=== PATIENT | male | born 1970 | race Caucasian/White ===

== ENCOUNTER 2021-01-23 10:46 | Outpatient (CLI) | payer MEDICAID, SELFPAY ==
[2021-01-23] MEDS: Omnipaque 350 MG/ML 100 ML BTL IJ (10:58)
[2021-01-23] MEDS: Normal Saline Flush 10 ML SYR IVP (11:00)
--- NOTE | 2021-01-23 11:15 | DI.CT_ITS ---
Exam(s) CT CHEST PE CTA EXAM: CT CHEST PE CTA CLINICAL HISTORY: COUGH, DYSPNEA,NEAR SYNCOPE,? PE. TECHNIQUE: Imaging Protocol: Axial CT angiography was performed with multi-slice acquisition and mu lti-planar and/or 3D reconstructions. CONTRAST MATERIAL: Intravenous: Omnipaque 350 Contrast volume:67 mL COMPARISON: CT RENAL COLIC WO CONTRAST from 01/01/2010 FINDINGS: Tracheobronchial tree: Patent where visualized. Pulmonary parenchyma: No consolidation or dominant measurable mass. Marked emphysematous changes are present in the lungs. Pulmonary Arteries: No evidence of filling defect to suggest pulmonary emboli. Mediastinum and Anamika: No dominant adenopathy or fluid collection. The esophagus is grossly unremarkab le except for small hiatal hernia. Visualized thyroid gland: Unremarkable. Pleura: No effusion is present. There is focal thickening of the pleura along the right posterior ch est wall. The larger area measures 2.7 x 0.7 cm. The smaller area measures 1 x 0.5 cm. The larger areas associated with a healed right rib fracture. No bony abnormality is seen adjacent to the small er lesion. Heart: The heart is not dilated. Coronary artery calcifications are present. No pericardial effusion . Aorta: Thoracic aorta non-dilated. No evidence of dissection. Upper abdomen: Unremarkable. Soft tissues: Unremarkable. Bones: Within normal limits for the patient's age.Chronic appearing anterior wedging is seen at T8. Superior endplate depressions are seen at T5 and T12 which appear old. No definite acute fracture or subluxation is seen in the thoracic spine. IMPRESSION: 1. No evidence of pulmonary embolism, thoracic aortic dissection or aneurysm. 2. Marked emphysematous changes in the lungs. 3. Focal thickening in the of the pleura along the posterior chest wall. This is nonspecific. A fol low-up CT scan of the chest in 3 months is recommended for re-evaluation. RADIATION DOSE DELIVERED: 356.85mGy.cm Total DLP DATA REPOSITORY: All CT scans at this facility are submitted to the National Radiology Data Registry (NRDR) Dose Index Registry (DIR) with the [employer] (ACR). RADIATION OPTIMIZATION: All CT scans at this facility use at least one of these dose optimization te chniques: automated exposure control; mA and/or kV adjustment per patient size (includes targeted exa ms where dose is matched to clinical indication); or iterative reconstruction.
== END 2021-01-23 11:06 ==
PROVIDERS: PCP Family Medicine; Visit Provider Nurse Practitioner Family
DX: R06.00 Dyspnea, unspecified (principal); R05.8 Other specified cough; R55 Syncope and collapse; R91.8 Other nonspecific abnormal finding of lung field
CPT/HCPCS: 71275; J3490

== ENCOUNTER 2021-01-23 13:38 | Outpatient (REF) | payer MEDICAID, SELFPAY ==
[2021-01-23 14:12] LABS: Abs Immature Grans 0.05 10^3/uL (0.0-0.06); Absolute Basophil Count 0.18 10^3/uL (0.0-0.2); Absolute Eosinophil Count 0.47 10^3/uL (0.0-0.7); Absolute Lymphocyte Count 1.79 10^3/uL (1.2-3.4); Absolute Monocyte Count 0.96 10^3/uL (0.1-0.8); Absolute Neutrophil Count 8.67 10^3/uL (1.2-6.7); Basophils % 1.5; Eosinophils % 3.9; HCT 49.1 % (40.0-50.0); HGB 15.4 g/dL (13.5-17.5); Immature Grans % 0.4; Lymphocytes % 14.8; MCHC 31.4 % (32.0-36.0); MCV 95.7 fL (80-95); MPV 10.6 fL (8.0-11.0); Monocytes % 7.9; Neutrophils % 71.5; Nucleated RBC 0 %; Platelet Count 666 10^3/uL (130-400); RBC 5.13 10^6/uL (4.36-5.78); RDW-SD 43.3 fL; WBC 12.12 10^3/uL (4.4-10.8)
[2021-01-23 14:46] LABS: ALT 27 U/L (16-63); AST 18 U/L (15-37); Albumin 4.2 g/dL (3.4-5.0); Alkaline Phosphatase 78 U/L (46-116); Anion Gap 8.4 mmol/L (3-11); BUN 13 mg/dL (7-18); Bilirubin, Total 0.3 mg/dL (0.2-1.0); CO2 28.6 mmol/L (21.0-32.0); Calcium 10.6 mg/dL (8.5-10.1); Chloride 101 mmol/L (98-107); Glucose 89 mg/dL (74-106); Sodium 138 mmol/L (136-145); Total Protein 8.5 g/dL (6.4-8.2)
[2021-01-23 14:55] LABS: Potassium 6.2 mmol/L (3.5-5.1)
[2021-01-24 14:39] LABS: COVID-19 RT-PCR UVMMC Result Negative (Negative)
== END 2021-01-23 13:39 | disposition home or self-care (01) ==
LOC: LBN 13:38
PROVIDERS: PCP Family Medicine; Visit Provider Nurse Practitioner Family
DX: R55 Syncope and collapse (principal); R06.09 Other forms of dyspnea; R05.8 Other specified cough; Z20.822 Contact with and (suspected) exposure to COVID-19
CPT/HCPCS: 80053; U0003; 85025

== ENCOUNTER 2021-01-25 16:24 | Outpatient (REF) | payer MEDICAID, SELFPAY ==
[2021-01-25 21:15] LABS: Potassium 4.6 mmol/L (3.5-5.1)
== END 2021-01-25 16:25 | disposition home or self-care (01) ==
LOC: LBN 16:24
PROVIDERS: PCP Family Medicine; Visit Provider Nurse Practitioner Family
DX: E87.5 Hyperkalemia (principal)
CPT/HCPCS: 84132

== ENCOUNTER 2021-01-29 01:40 | Outpatient (CLI) | payer MEDICAID, SELFPAY ==
--- NOTE | 2021-01-29 16:23 | W.PFT ---
Date of service: 01/29/21 Time of Service: 14:47 Pulmonary Function Test Result Requesting Provider Arias Mast Indications: Worsening cough Interpretation Spirometry: There is moderate airflow limitation. There is no significant bronchodilator response. Lung Volumes: There is evidence of air trapping and hyperinflation. Diffusion Capacity: The diffusion is reduced. Airway Pressure: Airways resistance is normal. Impression Moderate airflow obstruction with evidence of air trapping and hyperinflation with a reduced diffusion. In the correct clinical context this may represent COPD with emphysema. Clinical Correlation therefore is recommended.
== END 2021-01-29 01:41 | disposition home or self-care (01) ==
LOC: RT 01:40
PROVIDERS: PCP Family Medicine; Visit Provider Nurse Practitioner Family
DX: J44.9 Chronic obstructive pulmonary disease, unspecified (principal); R05.9 Cough, unspecified; R06.00 Dyspnea, unspecified; F17.210 Nicotine dependence, cigarettes, uncomplicated; R94.2 Abnormal results of pulmonary function studies
CPT/HCPCS: 94060; 94726; 94729

== ENCOUNTER 2021-03-05 10:54 | Outpatient (CLI) | payer MEDICAID, SELFPAY ==
--- NOTE | 2021-03-05 | DI.RAD_ITS ---
Exam(s) XR SHOULDER RT COMPLETE 2+V EXAM: XR SHOULDER RT COMPLETE 2+V CLINICAL HISTORY: PAIN RT SHOULDER M25.511. TECHNIQUE: 2D digital imaging was performed. COMPARISON: No exams were available for comparison FINDINGS: No evidence of right clavicle fracture and the AC joint appears unremarkable. Incidentally noted is a large bulla in the right upper lobe. No rib fractures IMPRESSION: DATA REPOSITORY: RADIATION DOSE DELIVERED:
== END 2021-03-05 11:14 ==
PROVIDERS: PCP Family Medicine; Visit Provider Nurse Practitioner Family
DX: M25.511 Pain in right shoulder (principal)
CPT/HCPCS: 73030

== ENCOUNTER 2021-04-09 13:53 | Outpatient (REF) | payer MEDICAID, SELFPAY ==
[2021-04-09 17:16] LABS: Absolute Lymphocyte Count 1.61 10^3/uL (1.2-3.4); Absolute Monocyte Count 1.17 10^3/uL (0.1-0.8); Basophils % 1.2; Eosinophils % 2.1; HCT 40.1 % (40.0-50.0); HGB 12.6 g/dL (13.5-17.5); Immature Grans % 0.6; Lymphocytes % 10.4; MCH 29.1 pg (27.0-33.0); MCHC 31.4 % (32.0-36.0); MCV 92.6 fL (80-95); MPV 10.2 fL (8.0-11.0); Monocytes % 7.6; Neutrophils % 78.1; Nucleated RBC 0 %; Platelet Count 694 10^3/uL (130-400); RBC 4.33 10^6/uL (4.36-5.78); RDW 12.3 % (11.8-14.1); RDW-SD 42.4 fL; WBC 15.45 10^3/uL (4.4-10.8)
[2021-04-09 17:18] LABS: Absolute Basophil Count 0.19 10^3/uL (0.0-0.2); Absolute Eosinophil Count 0.32 10^3/uL (0.0-0.7); Absolute Neutrophil Count 12.07 10^3/uL (1.2-6.7)
[2021-04-09 17:21] LABS: ESR 40 mm/hr (0-15)
[2021-04-09 17:38] LABS: C-Reactive Protein 6.19 mg/dL (0.0-0.3)
== END 2021-04-09 13:54 | disposition home or self-care (01) ==
LOC: NCHCN 13:53
PROVIDERS: PCP Family Medicine; Visit Provider Nurse Practitioner Family
DX: D47.3 Essential (hemorrhagic) thrombocythemia (principal); R21 Rash and other nonspecific skin eruption
CPT/HCPCS: 85652; 85025; 85379; 86140

== ENCOUNTER 2021-05-24 01:40 | Outpatient (CLI) | payer MEDICAID, SELFPAY ==
--- NOTE | 2021-05-24 10:00 | DI.CT_ITS ---
Exam(s) CT CHEST W EXAM: CT CHEST W CLINICAL HISTORY: COPD,J44.9; THROMBOCYTOSIS, D47.3; TOBACCO DEPENDENCE, F17.200 TECHNIQUE: CT examination of the chest was performed with intravenous infusion of 70 cc of Omnipaque 350. COMPARISON: CT CT CHEST PE CTA from 01/23/2021 FINDINGS: There is severe bullous emphysema with apical bullous formation occupying up to 50 percent of the vol ume of the right lung and 25 percent of the volume of left lung. There is moderate central lobular e mphysematous change throughout both lungs.. There is a new right pleural effusion, not present on pr ior CT of January 23, 2021.. There is no evidence of pulmonary embolic disease. There is unremarkable appearance of the thoracic aorta and major branches with no evidence of aneurysm or dissection. There is increased prominence of small lymph nodes in superior mediastinum and supraclavicular region . Largest nodes are roughly 10-12 millimeters long axis period. No bulky adenopathy. Tracheobronch ial tree appears intact. A previously described region of pleural abnormality with 2 focal areas of abnormal pleural radiodens ity seen on prior examination of January 2021 shows markedly increased prominence pleural based mass which now measures up to 5 x 7 cm in diameter on axial imaging period there is marked destruction of the right 9th rib. Previously described right 11th rib fracture again noted posteriorly. The findings are highly suggestive of neoplastic disease. Additional evaluation with tissue sampling recommended. Visualized portions of the liver, spleen, adrenals, and kidneys are unremarkable. No abnormality seen involving the bony thorax. IMPRESSION: Aggressive behavior of right pleural based mass or masses with marked interval increase in size since prior examination of January 2021. Neoplastic disease suspected. Additional evaluation with tissu e sampling recommended Mildly increased prominence of superior mediastinal and supraclavicular lymph nodes is suspicious for regional metastatic disease. RADIATION DOSE DELIVERED: 478.68mGy.cm Total DLP 478.68mGy.cm Total DLP !Error CTDIvol
[2021-05-24] MEDS: Omnipaque 350 MG/ML 100 ML BTL IJ (10:29)
== END 2021-05-24 02:00 ==
PROVIDERS: PCP Nurse Practitioner Family; Visit Provider Nurse Practitioner Family
DX: J44.9 Chronic obstructive pulmonary disease, unspecified (principal); F17.200 Nicotine dependence, unspecified, uncomplicated; D47.3 Essential (hemorrhagic) thrombocythemia; J43.8 Other emphysema; R91.8 Other nonspecific abnormal finding of lung field; R59.0 Localized enlarged lymph nodes
CPT/HCPCS: 71260; J3490

== ENCOUNTER 2021-07-19 02:18 | Outpatient (CLI) | payer MEDICAID, SELFPAY ==
[2021-07-19 11:46] LABS: Abs Immature Grans 0.09 10^3/uL (0.0-0.06); Basophils % 0.6; Eosinophils % 0.6; HCT 29.2 % (40.0-50.0); HGB 8.9 g/dL (13.5-17.5); Immature Grans % 0.5; Lymphocytes % 5.4; MCH 22.8 pg (27.0-33.0); MCHC 30.5 % (32.0-36.0); MCV 75 fL (80-95); MPV 8.9 fL (8.0-11.0); Monocytes % 5.1; Neutrophils % 87.8; RBC 3.91 10^6/uL (4.36-5.78); RDW 15.3 % (11.8-14.1); RDW-SD 41.1 fL; WBC 17.15 10^3/uL (4.4-10.8)
[2021-07-19 11:49] LABS: Absolute Lymphocyte Count 0.93 10^3/uL (1.2-3.4); Absolute Monocyte Count 0.87 10^3/uL (0.1-0.8); Absolute Neutrophil Count 15.06 10^3/uL (1.2-6.7)
[2021-07-19 12:04] LABS: Diff Comment RBC Morph Reviewed; Hypochromasia 1+; Microcytosis 2+
[2021-07-19 12:05] LABS: Platelet Count 802 10^3/uL (130-400)
[2021-07-19 12:10] LABS: ALT 18 U/L (16-63); AST 12 U/L (15-37); Albumin 2.9 g/dL (3.4-5.0); Alkaline Phosphatase 76 U/L (46-116); Anion Gap 7.7 mmol/L (3-11); BUN 8 mg/dL (7-18); Bilirubin, Total 0.2 mg/dL (0.2-1.0); CO2 28.3 mmol/L (21.0-32.0); CREATININE 0.9 mg/dL (0.70-1.30); Calcium 9.3 mg/dL (8.5-10.1); Chloride 98 mmol/L (98-107); FREE T4 1.29 ng/dL (0.76-1.46); Glucose 122 mg/dL (74-106); Magnesium 2.1 mg/dL (1.8-2.4); Potassium 4.8 mmol/L (3.5-5.1); Sodium 134 mmol/L (136-145); TSH 1.02 uIU/mL (0.36-3.74); Total Protein 8.3 g/dL (6.4-8.2)
== END 2021-07-19 02:19 | disposition home or self-care (01) ==
LOC: LBO 02:18
PROVIDERS: PCP Nurse Practitioner Family; Visit Provider Internal Medicine Medical Oncology
DX: C34.31 Malignant neoplasm of lower lobe, right bronchus or lung (principal); C79.51 Secondary malignant neoplasm of bone; Z79.899 Other long term (current) drug therapy
CPT/HCPCS: 36415; 80053; 83735; 84439; 84443; 85025

== ENCOUNTER 2021-07-30 02:52 | Outpatient (CLI) | payer MEDICAID, SELFPAY ==
[2021-07-30 09:56] LABS: Abs Immature Grans 0.13 10^3/uL (0.0-0.06); Absolute Basophil Count 0.14 10^3/uL (0.0-0.2); Absolute Eosinophil Count 0.42 10^3/uL (0.0-0.7); Absolute Lymphocyte Count 0.68 10^3/uL (1.2-3.4); Absolute Monocyte Count 0.88 10^3/uL (0.1-0.8); Absolute Neutrophil Count 10.13 10^3/uL (1.2-6.7); Basophils % 1.1; Eosinophils % 3.4; HCT 31.1 % (40.0-50.0); HGB 9.4 g/dL (13.5-17.5); Immature Grans % 1.1; Lymphocytes % 5.5; MCHC 30.2 % (32.0-36.0); MCV 76 fL (80-95); MPV 9.3 fL (8.0-11.0); Monocytes % 7.1; Neutrophils % 81.8; Platelet Count 625 10^3/uL (130-400); RBC 4.08 10^6/uL (4.36-5.78); RDW 17.3 % (11.8-14.1); RDW-SD 45.2 fL; WBC 12.38 10^3/uL (4.4-10.8)
[2021-07-30 10:10] LABS: ALT 21 U/L (16-63); AST 11 U/L (15-37); Albumin 3.6 g/dL (3.4-5.0); Alkaline Phosphatase 81 U/L (46-116); Anion Gap 8.6 mmol/L (3-11); BUN 17 mg/dL (7-18); Bilirubin, Total 0.2 mg/dL (0.2-1.0); CO2 29.4 mmol/L (21.0-32.0); CREATININE 0.9 mg/dL (0.70-1.30); Calcium 9.5 mg/dL (8.5-10.1); Chloride 94 mmol/L (98-107); Glucose 131 mg/dL (74-106); Potassium 4.2 mmol/L (3.5-5.1); Sodium 132 mmol/L (136-145); Total Protein 8.5 g/dL (6.4-8.2)
[2021-07-30 12:06] LABS: FREE T4 1.18 ng/dL (0.76-1.46)
== END 2021-07-30 02:53 | disposition home or self-care (01) ==
LOC: LBO 02:52
PROVIDERS: PCP Nurse Practitioner Family; Visit Provider Internal Medicine Medical Oncology
DX: R91.8 Other nonspecific abnormal finding of lung field (principal)
CPT/HCPCS: 36415; 80053; 83735; 84439; 84443; 85025

== ENCOUNTER 2021-08-06 13:02 | Outpatient (CLI) | payer MEDICAID, SELFPAY ==
[2021-08-06 08:30] LABS: Abs Immature Grans 0.02 10^3/uL (0.0-0.06); Absolute Basophil Count 0.07 10^3/uL (0.0-0.2); Absolute Lymphocyte Count 0.65 10^3/uL (1.2-3.4); Absolute Neutrophil Count 2.55 10^3/uL (1.2-6.7); Basophils % 1.8; Eosinophils % 7.5; HGB 8.8 g/dL (13.5-17.5); Immature Grans % 0.5; Lymphocytes % 16.3; MCHC 30.3 % (32.0-36.0); MCV 79 fL (80-95); MPV 8.6 fL (8.0-11.0); Neutrophils % 63.9; Platelet Count 315 10^3/uL (130-400); RBC 3.67 10^6/uL (4.36-5.78); RDW-SD 53.2 fL; WBC 3.99 10^3/uL (4.4-10.8)
[2021-08-06 08:53] LABS: ALT 19 U/L (16-63); AST 11 U/L (15-37); Albumin 3.4 g/dL (3.4-5.0); Alkaline Phosphatase 73 U/L (46-116); Anion Gap 6.9 mmol/L (3-11); BUN 17 mg/dL (7-18); Bilirubin, Total 0.1 mg/dL (0.2-1.0); CO2 28.1 mmol/L (21.0-32.0); CREATININE 0.9 mg/dL (0.70-1.30); Chloride 102 mmol/L (98-107); FREE T4 1.09 ng/dL (0.76-1.46); Glucose 110 mg/dL (74-106); Potassium 3.9 mmol/L (3.5-5.1); Sodium 137 mmol/L (136-145); TSH 0.66 uIU/mL (0.36-3.74); Total Protein 7.6 g/dL (6.4-8.2)
== END 2021-08-06 13:03 | disposition home or self-care (01) ==
LOC: LBO 13:06
PROVIDERS: PCP Nurse Practitioner Family; Visit Provider Internal Medicine Medical Oncology
DX: C34.31 Malignant neoplasm of lower lobe, right bronchus or lung (principal); C79.51 Secondary malignant neoplasm of bone; Z79.899 Other long term (current) drug therapy
CPT/HCPCS: 36415; 80053; 83735; 84439; 84443; 85025

== ENCOUNTER 2021-08-14 03:43 | Outpatient (CLI) | payer MEDICAID, SELFPAY ==
[2021-08-14 07:17] LABS: Abs Immature Grans 0.02 10^3/uL (0.0-0.06); Absolute Basophil Count 0.08 10^3/uL (0.0-0.2); Absolute Eosinophil Count 0.45 10^3/uL (0.0-0.7); Absolute Lymphocyte Count 1.11 10^3/uL (1.2-3.4); Absolute Monocyte Count 0.78 10^3/uL (0.1-0.8); Absolute Neutrophil Count 3.38 10^3/uL (1.2-6.7); Basophils % 1.4; Eosinophils % 7.7; HCT 36.2 % (40.0-50.0); HGB 10.9 g/dL (13.5-17.5); Immature Grans % 0.3; Lymphocytes % 19.1; MCH 24.9 pg (27.0-33.0); MCHC 30.1 % (32.0-36.0); MCV 83 fL (80-95); MPV 9.1 fL (8.0-11.0); Monocytes % 13.4; Neutrophils % 58.1; Platelet Count 376 10^3/uL (130-400); RBC 4.38 10^6/uL (4.36-5.78); RDW 24.1 % (11.8-14.1); RDW-SD 68.2 fL; WBC 5.82 10^3/uL (4.4-10.8)
[2021-08-14 07:40] LABS: ALT 21 U/L (16-63); AST 13 U/L (15-37); Albumin 3.8 g/dL (3.4-5.0); Alkaline Phosphatase 91 U/L (46-116); Anion Gap 7.3 mmol/L (3-11); BUN 13 mg/dL (7-18); Bilirubin, Total 0.2 mg/dL (0.2-1.0); CO2 28.7 mmol/L (21.0-32.0); CREATININE 0.9 mg/dL (0.70-1.30); Calcium 9.5 mg/dL (8.5-10.1); Chloride 97 mmol/L (98-107); FREE T4 1.02 ng/dL (0.76-1.46); Glucose 88 mg/dL (74-106); Magnesium 2.1 mg/dL (1.8-2.4); Sodium 133 mmol/L (136-145); TSH 1.51 uIU/mL (0.36-3.74); Total Protein 8.6 g/dL (6.4-8.2)
[2021-08-14 07:46] LABS: Anisocytosis 2+; Diff Comment RBC Morph Reviewed; Hypochromasia 1+; Microcytosis 1+
== END 2021-08-14 03:44 | disposition home or self-care (01) ==
LOC: LBO 03:43
PROVIDERS: PCP Nurse Practitioner Family; Visit Provider Internal Medicine Medical Oncology
DX: C34.31 Malignant neoplasm of lower lobe, right bronchus or lung (principal); C79.51 Secondary malignant neoplasm of bone; Z79.899 Other long term (current) drug therapy
CPT/HCPCS: 36415; 80053; 83735; 84439; 84443; 85025

== ENCOUNTER 2021-08-20 02:59 | Outpatient (CLI) | payer MEDICAID, SELFPAY ==
[2021-08-20 08:51] LABS: Abs Immature Grans 0.03 10^3/uL (0.0-0.06); Absolute Basophil Count 0.09 10^3/uL (0.0-0.2); Absolute Eosinophil Count 0.19 10^3/uL (0.0-0.7); Absolute Lymphocyte Count 0.65 10^3/uL (1.2-3.4); Absolute Monocyte Count 0.29 10^3/uL (0.1-0.8); Absolute Neutrophil Count 3.15 10^3/uL (1.2-6.7); Eosinophils % 4.3; HCT 35.1 % (40.0-50.0); HGB 10.8 g/dL (13.5-17.5); Immature Grans % 0.7; Lymphocytes % 14.8; MCH 25.2 pg (27.0-33.0); MCHC 30.8 % (32.0-36.0); MCV 82 fL (80-95); Monocytes % 6.6; Neutrophils % 71.6; Platelet Count 417 10^3/uL (130-400); RBC 4.28 10^6/uL (4.36-5.78); RDW 23.4 % (11.8-14.1); RDW-SD 65.5 fL
[2021-08-20 09:16] LABS: Anisocytosis 2+; Diff Comment RBC Morph Reviewed
[2021-08-20 09:22] LABS: ALT 18 U/L (16-63); AST 11 U/L (15-37); Albumin 3.6 g/dL (3.4-5.0); Alkaline Phosphatase 84 U/L (46-116); Anion Gap 8.5 mmol/L (3-11); BUN 17 mg/dL (7-18); Bilirubin, Total 0.1 mg/dL (0.2-1.0); CO2 27.5 mmol/L (21.0-32.0); CREATININE 0.7 mg/dL (0.70-1.30); Chloride 97 mmol/L (98-107); FREE T4 1.15 ng/dL (0.76-1.46); Glucose 112 mg/dL (74-106); Magnesium 1.8 mg/dL (1.8-2.4); Potassium 4.4 mmol/L (3.5-5.1); Sodium 133 mmol/L (136-145); TSH 1.09 uIU/mL (0.36-3.74); Total Protein 7.8 g/dL (6.4-8.2)
== END 2021-08-20 03:00 | disposition home or self-care (01) ==
LOC: LBO 02:59
PROVIDERS: PCP Nurse Practitioner Family; Visit Provider Internal Medicine Medical Oncology
DX: C34.31 Malignant neoplasm of lower lobe, right bronchus or lung (principal); C79.51 Secondary malignant neoplasm of bone; Z79.899 Other long term (current) drug therapy
CPT/HCPCS: 36415; 80053; 83735; 84439; 84443; 85025

== ENCOUNTER → 2021-08-28 01:02 | Outpatient (CLI) | payer MEDICAID, SELFPAY ==
[2021-08-28] MEDS: Omnipaque 350 MG/ML 100 ML BTL IJ (13:33)
[2021-08-28] MEDS: Normal Saline Flush 10 ML SYR IVP (13:34)
--- NOTE | 2021-08-28 14:15 | DI.CT_ITS ---
Exam(s) CT CHEST W EXAM: CT CHEST W CLINICAL HISTORY: LUNG CA, C34.31,S/P RT AND ON CHEMOIMMUNOTHERAPY,ASSESS TREATMENT RESPONSE. TECHNIQUE: Multi planar reconstructions were performed. CONTRAST MATERIAL: Omnipaque 350; 70 cc COMPARISON: CT CT CHEST W from 05/24/2021 FINDINGS: CHEST: LUNGS: Severe bolus disease again noted bilaterally. No new focal left lung findings. On the right side the large trans pleural posterior chest wall mass has significantly decreased in si ze.. The posterior right 11th rib fracture fracture is again noted. Right 10th rib appears unremark able. Right 9th rib is again noted be lytic. There is no lytic involvement of T10. Size of the rig ht pleural effusion has decreased.-resolved. This size of the trans pleural mass has significantly d ecreased and is significantly less discernible at the distinct mass on the posterior right side.. Th ere are no new pulmonary nodules nor new pleural effusions. No new findings in the trachea and ravinder tem bronchi. Mediastinum: No hilar nor mediastinal adenopathy. No subcarinal adenopathy. No axillary nor supracl avicular adenopathy. CARDIAC: Heart size is normal. There is no pericardial effusion.Caliber of the thoracic aorta is wit hin normal limits. VISUALIZED UPPER ABDOMEN:There are no significant adrenal masses. OSSEOUS: No new significant osseous lesions.. IMPRESSION: 1. Compared to the CT scan of 05/24/2021 there has been significant improvement. The size of the rig ht posterior chest wall mass has significantly decreased. No associated pleural effusion. No new pu lmonary nodules. 2. The amount of lytic destruction of the right 9th rib is stable. No new additional right rib invol vement. Size of the right pleural effusion has decreased. No new additional lung nodules. 3. No new intrathoracic adenopathy. RADIATION DOSE DELIVERED: 382.04mGy.cm Total DLP DATA REPOSITORY: All CT scans at this facility are submitted to the National Radiology Data Registry (NRDR) Dose Index Registry (DIR) with the [employer] (ACR). RADIATION OPTIMIZATION: All CT scans at this facility use at least one of these dose optimization te chniques: automated exposure control; mA and/or kV adjustment per patient size (includes targeted exa ms where dose is matched to clinical indication); or iterative reconstruction.
== END ==
PROVIDERS: PCP Nurse Practitioner Family; Visit Provider Internal Medicine Medical Oncology
DX: C34.31 Malignant neoplasm of lower lobe, right bronchus or lung (principal); J90 Pleural effusion, not elsewhere classified; R22.2 Localized swelling, mass and lump, trunk; M89.8X8 Other specified disorders of bone, other site
CPT/HCPCS: 71260; J3490

== ENCOUNTER 2021-09-03 03:45 | Outpatient (CLI) | payer MEDICAID, SELFPAY ==
[2021-09-03 07:18] LABS: Abs Immature Grans 0.01 10^3/uL (0.0-0.06); Absolute Basophil Count 0.05 10^3/uL (0.0-0.2); Absolute Eosinophil Count 0.28 10^3/uL (0.0-0.7); Absolute Lymphocyte Count 0.91 10^3/uL (1.2-3.4); Absolute Monocyte Count 0.63 10^3/uL (0.1-0.8); Absolute Neutrophil Count 2.55 10^3/uL (1.2-6.7); Basophils % 1.1; Eosinophils % 6.3; HCT 32.8 % (40.0-50.0); HGB 10.5 g/dL (13.5-17.5); Immature Grans % 0.2; Lymphocytes % 20.5; MCH 26.4 pg (27.0-33.0); MCV 83 fL (80-95); MPV 8.8 fL (8.0-11.0); Monocytes % 14.2; Neutrophils % 57.7; Platelet Count 216 10^3/uL (130-400); RBC 3.97 10^6/uL (4.36-5.78); RDW 23.9 % (11.8-14.1); RDW-SD 69.4 fL; WBC 4.43 10^3/uL (4.4-10.8)
[2021-09-03 07:38] LABS: Anisocytosis 2+; Diff Comment RBC Morph Reviewed
[2021-09-03 07:43] LABS: ALT 14 U/L (16-63); AST 9 U/L (15-37); Albumin 3.7 g/dL (3.4-5.0); Alkaline Phosphatase 75 U/L (46-116); Anion Gap 7.6 mmol/L (3-11); BUN 16 mg/dL (7-18); Bilirubin, Total 0.3 mg/dL (0.2-1.0); CO2 28.4 mmol/L (21.0-32.0); Calcium 9.5 mg/dL (8.5-10.1); Chloride 99 mmol/L (98-107); FREE T4 1.05 ng/dL (0.76-1.46); Glucose 131 mg/dL (74-106); Magnesium 1.9 mg/dL (1.8-2.4); Potassium 4.1 mmol/L (3.5-5.1); Sodium 135 mmol/L (136-145); TSH 2.26 uIU/mL (0.36-3.74); Total Protein 7.9 g/dL (6.4-8.2)
== END 2021-09-03 03:46 | disposition home or self-care (01) ==
LOC: LBO 03:46
PROVIDERS: PCP Nurse Practitioner Family; Visit Provider Internal Medicine Medical Oncology
DX: C34.31 Malignant neoplasm of lower lobe, right bronchus or lung (principal); C79.51 Secondary malignant neoplasm of bone; Z79.899 Other long term (current) drug therapy
CPT/HCPCS: 36415; 80053; 83735; 84439; 84443; 85025

== ENCOUNTER 2021-09-10 03:49 | Outpatient (CLI) | payer MEDICAID, SELFPAY | END 2021-09-10 03:50 | disposition home or self-care (01) | LOC: LBO 03:49 | PROVIDERS: PCP Nurse Practitioner Family; Visit Provider Internal Medicine Medical Oncology ==

== ENCOUNTER 2021-09-13 02:52 | Outpatient (CLI) | payer MEDICAID, SELFPAY ==
[2021-09-13 09:30] LABS: Abs Immature Grans 0.03 10^3/uL (0.0-0.06); Absolute Basophil Count 0.08 10^3/uL (0.0-0.2); Absolute Eosinophil Count 0.06 10^3/uL (0.0-0.7); Absolute Lymphocyte Count 0.82 10^3/uL (1.2-3.4); Absolute Monocyte Count 0.53 10^3/uL (0.1-0.8); Absolute Neutrophil Count 2.73 10^3/uL (1.2-6.7); Basophils % 1.9; Eosinophils % 1.4; HCT 32.1 % (40.0-50.0); HGB 10.3 g/dL (13.5-17.5); Immature Grans % 0.7; Lymphocytes % 19.3; MCH 27.3 pg (27.0-33.0); MCHC 32.1 % (32.0-36.0); MCV 85 fL (80-95); MPV 8.5 fL (8.0-11.0); Monocytes % 12.5; Neutrophils % 64.2; WBC 4.25 10^3/uL (4.4-10.8)
[2021-09-13 09:56] LABS: ALT 16 U/L (16-63); AST 14 U/L (15-37); Albumin 3.7 g/dL (3.4-5.0); Alkaline Phosphatase 68 U/L (46-116); Anion Gap 8.6 mmol/L (3-11); BUN 12 mg/dL (7-18); Bilirubin, Total 0.2 mg/dL (0.2-1.0); CO2 26.4 mmol/L (21.0-32.0); Calcium 9.1 mg/dL (8.5-10.1); Chloride 100 mmol/L (98-107); FREE T4 1.18 ng/dL (0.76-1.46); Glucose 121 mg/dL (74-106); Magnesium 1.8 mg/dL (1.8-2.4); Potassium 4.6 mmol/L (3.5-5.1); Sodium 135 mmol/L (136-145); TSH 0.59 uIU/mL (0.36-3.74); Total Protein 7.7 g/dL (6.4-8.2)
[2021-09-13 10:25] LABS: RBC 3.77 10^6/uL (4.36-5.78)
[2021-09-13 10:26] LABS: Diff Comment Diff Reviewed; Platelet Count 369 10^3/uL (130-400)
[2021-09-13 10:27] LABS: Hypochromasia 1+; Macrocytosis 1+; Microcytosis 1+
== END 2021-09-13 02:53 | disposition home or self-care (01) ==
LOC: LBO 02:52
PROVIDERS: PCP Nurse Practitioner Family; Visit Provider Internal Medicine Medical Oncology
DX: C34.31 Malignant neoplasm of lower lobe, right bronchus or lung (principal); C79.51 Secondary malignant neoplasm of bone; Z79.899 Other long term (current) drug therapy
CPT/HCPCS: 36415; 80053; 83735; 84439; 84443; 85025

== ENCOUNTER 2021-09-24 09:20 | Outpatient (CLI) | payer MEDICAID, SELFPAY ==
[2021-09-24 09:34] LABS: Abs Immature Grans 0.01 10^3/uL (0.0-0.06); Absolute Basophil Count 0.02 10^3/uL (0.0-0.2); Absolute Eosinophil Count 0.03 10^3/uL (0.0-0.7); Absolute Lymphocyte Count 0.82 10^3/uL (1.2-3.4); Absolute Monocyte Count 0.56 10^3/uL (0.1-0.8); Absolute Neutrophil Count 2.82 10^3/uL (1.2-6.7); Basophils % 0.5; Eosinophils % 0.7; HCT 32.8 % (40.0-50.0); HGB 10.6 g/dL (13.5-17.5); Immature Grans % 0.2; Lymphocytes % 19.2; MCH 28.3 pg (27.0-33.0); MCHC 32.3 % (32.0-36.0); MCV 88 fL (80-95); MPV 8.9 fL (8.0-11.0); Monocytes % 13.1; Neutrophils % 66.3; Platelet Count 206 10^3/uL (130-400); RBC 3.75 10^6/uL (4.36-5.78); RDW 24.9 % (11.8-14.1); WBC 4.26 10^3/uL (4.4-10.8)
[2021-09-24 09:56] LABS: ALT 17 U/L (16-63); AST 11 U/L (15-37); Albumin 3.6 g/dL (3.4-5.0); Alkaline Phosphatase 66 U/L (46-116); Anion Gap 6.6 mmol/L (3-11); BUN 10 mg/dL (7-18); Bilirubin, Total 0.2 mg/dL (0.2-1.0); CO2 28.4 mmol/L (21.0-32.0); CREATININE 0.9 mg/dL (0.70-1.30); Calcium 9.2 mg/dL (8.5-10.1); Chloride 101 mmol/L (98-107); FREE T4 1.19 ng/dL (0.76-1.46); Glucose 128 mg/dL (74-106); Magnesium 1.8 mg/dL (1.8-2.4); Potassium 4.8 mmol/L (3.5-5.1); Sodium 136 mmol/L (136-145); Total Protein 7.7 g/dL (6.4-8.2)
[2021-09-24 10:18] LABS: Anisocytosis 2+; Diff Comment RBC Morph Reviewed
[2021-09-24 11:13] LABS: TSH 0.39 uIU/mL (0.36-3.74)
== END 2021-09-24 09:21 | disposition home or self-care (01) ==
LOC: LBO 09:21
PROVIDERS: PCP Nurse Practitioner Family; Visit Provider Internal Medicine Medical Oncology
DX: C34.31 Malignant neoplasm of lower lobe, right bronchus or lung (principal); C79.51 Secondary malignant neoplasm of bone; Z79.899 Other long term (current) drug therapy
CPT/HCPCS: 36415; 80053; 83735; 84439; 84443; 85025

== ENCOUNTER 2021-10-01 14:58 | Outpatient (CLI) | payer MEDICAID, SELFPAY ==
[2021-10-01 07:23] LABS: Abs Immature Grans 0.03 10^3/uL (0.0-0.06); Absolute Basophil Count 0.08 10^3/uL (0.0-0.2); Absolute Eosinophil Count 0.12 10^3/uL (0.0-0.7); Absolute Lymphocyte Count 0.63 10^3/uL (1.2-3.4); Absolute Monocyte Count 0.35 10^3/uL (0.1-0.8); Absolute Neutrophil Count 2.93 10^3/uL (1.2-6.7); Basophils % 1.9; Eosinophils % 2.9; HCT 32.4 % (40.0-50.0); HGB 10.8 g/dL (13.5-17.5); Immature Grans % 0.7; Lymphocytes % 15.2; MCH 29.2 pg (27.0-33.0); MCHC 33.3 % (32.0-36.0); MCV 88 fL (80-95); MPV 8.9 fL (8.0-11.0); Monocytes % 8.5; Neutrophils % 70.8; Platelet Count 307 10^3/uL (130-400); RDW 23.7 % (11.8-14.1); RDW-SD 74.1 fL; WBC 4.14 10^3/uL (4.4-10.8)
[2021-10-01 07:46] LABS: ALT 20 U/L (16-63); AST 14 U/L (15-37); Albumin 3.8 g/dL (3.4-5.0); Alkaline Phosphatase 69 U/L (46-116); Anion Gap 7.9 mmol/L (3-11); BUN 12 mg/dL (7-18); Bilirubin, Total 0.2 mg/dL (0.2-1.0); CO2 30.1 mmol/L (21.0-32.0); CREATININE 0.9 mg/dL (0.70-1.30); Chloride 99 mmol/L (98-107); FREE T4 1.28 ng/dL (0.76-1.46); Glucose 126 mg/dL (74-106); Magnesium 1.8 mg/dL (1.8-2.4); Potassium 4.4 mmol/L (3.5-5.1); Sodium 137 mmol/L (136-145); TSH 1.05 uIU/mL (0.36-3.74)
== END 2021-10-01 14:59 | disposition home or self-care (01) ==
LOC: LBO 14:59
PROVIDERS: PCP Nurse Practitioner Family; Visit Provider Internal Medicine Medical Oncology
DX: C34.31 Malignant neoplasm of lower lobe, right bronchus or lung (principal); C79.51 Secondary malignant neoplasm of bone; Z79.899 Other long term (current) drug therapy
CPT/HCPCS: 36415; 80053; 83735; 84439; 84443; 85025

== ENCOUNTER → 2021-10-11 03:44 | Outpatient (CLI) | payer MEDICAID, SELFPAY ==
--- NOTE | 2021-10-11 | DI.CT_ITS ---
Exam(s) CT CHEST W EXAM: CT CHEST W CLINICAL HISTORY: LUNG CANCER C34.31 BONE CANCER C79.51 RESTAGING. TECHNIQUE: Multi planar reconstructions were performed. CONTRAST MATERIAL: Omnipaque 350; 70 cc COMPARISON: CT CT CHEST W from 05/24/[address] CHEST W from 08/28/2021 FINDINGS: CHEST: LUNGS: Again noted is severe bolus emphysema disease. The pleural based findings with overlying rib destruction on the right side appear stable, without progression from 08/28/2021. An independent non pathologic appearing fracture of the posterior aspect of the right 11th rib is also again noted, exhi biting some mild healing. There are no new right lung findings. No significant pleural effusion. In the opposite-left lung there is a small nodular infiltrate in the left upper lobe measuring 8 by 6 millimeters, unchanged from the prior study but not evident on the CT scan of 05/24/2021. No new ad ditional focal left lung findings and no pleural effusion. No new findings in the trachea and mainst em bronchi. MEDIASTINUM: There is no new hilar nor mediastinal adenopathy. Visualized thyroid unremarkable. CARDIAC: Heart size is normal. There is no pericardial effusion.Caliber of the thoracic aorta is wit hin normal limits. VISUALIZED UPPER ABDOMEN:There are no significant adrenal masses. No new significant findings in the partially visualized liver. OSSEOUS: Right rib findings remain stable with no additional progressive involvement. No lytic lesio ns seen in the vertebral bodies.Stable height loss of a midthoracic vertebra which does not appear pa thologic and is unchanged.. IMPRESSION: 1. Minimal if any significant change when compared to the most recent CT scan of 08/28/2021. Posteri or right chest wall and rib involvement is stable without progression nor new right lung findings nor new adenopathy. 2. Nodular infiltrate measuring 8 x 6 millimeters in the left upper lobe is noted, unchanged from . Nevertheless of some concern as it was not evident on the CT scan of May 2021. No other left lung findings nor pleural effusion. 3. No significant intrathoracic adenopathy. RADIATION DOSE DELIVERED: 344.68mGy.cm Total DLP DATA REPOSITORY: All CT scans at this facility are submitted to the National Radiology Data Registry (NRDR) Dose Index Registry (DIR) with the [employer] (ACR). RADIATION OPTIMIZATION: All CT scans at this facility use at least one of these dose optimization te chniques: automated exposure control; mA and/or kV adjustment per patient size (includes targeted exa ms where dose is matched to clinical indication); or iterative reconstruction.
[2021-10-11] MEDS: Omnipaque 350 MG/ML 100 ML BTL IJ (10:00)
== END ==
PROVIDERS: PCP Nurse Practitioner Family; Visit Provider Internal Medicine Medical Oncology
DX: C34.31 Malignant neoplasm of lower lobe, right bronchus or lung (principal); C79.51 Secondary malignant neoplasm of bone
CPT/HCPCS: 71260; J3490

== ENCOUNTER 2021-10-22 03:28 | Outpatient (CLI) | payer MEDICAID, SELFPAY ==
[2021-10-22 09:33] LABS: Abs Immature Grans 0.03 10^3/uL (0.0-0.06); Absolute Basophil Count 0.06 10^3/uL (0.0-0.2); Absolute Eosinophil Count 0.28 10^3/uL (0.0-0.7); Absolute Lymphocyte Count 0.65 10^3/uL (1.2-3.4); Absolute Monocyte Count 0.65 10^3/uL (0.1-0.8); Absolute Neutrophil Count 5.88 10^3/uL (1.2-6.7); Basophils % 0.8; Eosinophils % 3.7; HGB 11.2 g/dL (13.5-17.5); Immature Grans % 0.4; Lymphocytes % 8.6; MCH 31.4 pg (27.0-33.0); MCHC 32.9 % (32.0-36.0); MCV 95 fL (80-95); MPV 8.2 fL (8.0-11.0); Monocytes % 8.6; Neutrophils % 77.9; Platelet Count 373 10^3/uL (130-400); RBC 3.57 10^6/uL (4.36-5.78); RDW 22.5 % (11.8-14.1); RDW-SD 80.4 fL; WBC 7.55 10^3/uL (4.4-10.8)
[2021-10-22 09:52] LABS: Macrocytosis 1+; Polychromasia Present
[2021-10-22 10:08] LABS: ALT 13 U/L (16-63); AST 10 U/L (15-37); Albumin 3.7 g/dL (3.4-5.0); Alkaline Phosphatase 61 U/L (46-116); Anion Gap 7.3 mmol/L (3-11); BUN 14 mg/dL (7-18); Bilirubin, Total 0.2 mg/dL (0.2-1.0); CO2 30.7 mmol/L (21.0-32.0); CREATININE 1.1 mg/dL (0.70-1.30); Chloride 101 mmol/L (98-107); Estimated GFR 81.78 (mL/min/1.73m2); FREE T4 1.12 ng/dL (0.76-1.46); Glucose 110 mg/dL (74-106); Magnesium 1.7 mg/dL (1.8-2.4); Sodium 139 mmol/L (136-145); TSH 0.86 uIU/mL (0.36-3.74); Total Protein 7.9 g/dL (6.4-8.2)
== END 2021-10-22 03:29 | disposition home or self-care (01) ==
LOC: LBO 03:28
PROVIDERS: PCP Nurse Practitioner Family; Visit Provider Internal Medicine Medical Oncology
DX: C34.31 Malignant neoplasm of lower lobe, right bronchus or lung (principal); C79.51 Secondary malignant neoplasm of bone; Z79.899 Other long term (current) drug therapy
CPT/HCPCS: 36415; 80053; 83735; 84439; 84443; 85025

== ENCOUNTER 2021-11-12 10:23 | Outpatient (CLI) | payer MEDICAID, SELFPAY ==
[2021-11-12 09:55] LABS: Abs Immature Grans 0.03 10^3/uL (0.0-0.06); Absolute Basophil Count 0.09 10^3/uL (0.0-0.2); Absolute Eosinophil Count 0.62 10^3/uL (0.0-0.7); Absolute Lymphocyte Count 0.77 10^3/uL (1.2-3.4); Absolute Monocyte Count 0.75 10^3/uL (0.1-0.8); Absolute Neutrophil Count 4.67 10^3/uL (1.2-6.7); Basophils % 1.3; Eosinophils % 8.9; HCT 34.9 % (40.0-50.0); HGB 11.3 g/dL (13.5-17.5); Immature Grans % 0.4; Lymphocytes % 11.1; MCH 32.1 pg (27.0-33.0); MCHC 32.4 % (32.0-36.0); MCV 99 fL (80-95); MPV 9.3 fL (8.0-11.0); Monocytes % 10.8; Neutrophils % 67.5; Platelet Count 444 10^3/uL (130-400); RBC 3.52 10^6/uL (4.36-5.78); RDW 15.2 % (11.8-14.1); RDW-SD 54.6 fL; WBC 6.93 10^3/uL (4.4-10.8)
[2021-11-12 10:16] LABS: ALT 13 U/L (16-63); AST 12 U/L (15-37); Albumin 3.4 g/dL (3.4-5.0); Alkaline Phosphatase 71 U/L (46-116); Anion Gap 7.1 mmol/L (3-11); BUN 8 mg/dL (7-18); Bilirubin, Total 0.1 mg/dL (0.2-1.0); CO2 30.9 mmol/L (21.0-32.0); CREATININE 0.9 mg/dL (0.70-1.30); Calcium 9.3 mg/dL (8.5-10.1); Chloride 101 mmol/L (98-107); Estimated GFR 104.05 (mL/min/1.73m2); FREE T4 1.05 ng/dL (0.76-1.46); Glucose 114 mg/dL (74-106); Magnesium 1.7 mg/dL (1.8-2.4); Potassium 4.1 mmol/L (3.5-5.1); Sodium 139 mmol/L (136-145); TSH 0.52 uIU/mL (0.36-3.74); Total Protein 7.9 g/dL (6.4-8.2)
== END 2021-11-12 10:24 | disposition home or self-care (01) ==
LOC: LBO 10:25
PROVIDERS: Visit Provider Internal Medicine Medical Oncology
DX: C34.31 Malignant neoplasm of lower lobe, right bronchus or lung (principal); C79.51 Secondary malignant neoplasm of bone; Z79.899 Other long term (current) drug therapy
CPT/HCPCS: 36415; 80053; 83735; 84439; 84443; 85025

== ENCOUNTER 2021-12-03 02:35 | Outpatient (CLI) | payer MEDICAID, SELFPAY ==
[2021-12-03 09:38] LABS: Abs Immature Grans 0.04 10^3/uL (0.0-0.06); Absolute Basophil Count 0.09 10^3/uL (0.0-0.2); Absolute Eosinophil Count 0.64 10^3/uL (0.0-0.7); Absolute Lymphocyte Count 0.95 10^3/uL (1.2-3.4); Absolute Monocyte Count 0.78 10^3/uL (0.1-0.8); Absolute Neutrophil Count 6.21 10^3/uL (1.2-6.7); Eosinophils % 7.3; HCT 35.8 % (40.0-50.0); HGB 11.8 g/dL (13.5-17.5); Immature Grans % 0.5; Lymphocytes % 10.9; MCH 31.8 pg (27.0-33.0); MCV 97 fL (80-95); MPV 9.2 fL (8.0-11.0); Neutrophils % 71.3; Platelet Count 424 10^3/uL (130-400); RBC 3.71 10^6/uL (4.36-5.78); RDW 12.4 % (11.8-14.1); RDW-SD 43.5 fL; WBC 8.71 10^3/uL (4.4-10.8)
[2021-12-03 10:03] LABS: ALT 13 U/L (16-63); AST 12 U/L (15-37); Albumin 3.4 g/dL (3.4-5.0); Alkaline Phosphatase 75 U/L (46-116); Anion Gap 7.5 mmol/L (3-11); BUN 11 mg/dL (7-18); Bilirubin, Total 0.2 mg/dL (0.2-1.0); CO2 29.5 mmol/L (21.0-32.0); Calcium 9.3 mg/dL (8.5-10.1); Chloride 97 mmol/L (98-107); Estimated GFR 91.69 (mL/min/1.73m2); Glucose 122 mg/dL (74-106); Magnesium 1.8 mg/dL (1.8-2.4); Potassium 3.8 mmol/L (3.5-5.1); Sodium 134 mmol/L (136-145); TSH 1.06 uIU/mL (0.36-3.74); Total Protein 8.5 g/dL (6.4-8.2)
== END 2021-12-03 02:36 | disposition home or self-care (01) ==
LOC: LBO 02:35
PROVIDERS: Visit Provider Internal Medicine Medical Oncology
DX: C34.31 Malignant neoplasm of lower lobe, right bronchus or lung (principal); C79.51 Secondary malignant neoplasm of bone; Z79.899 Other long term (current) drug therapy
CPT/HCPCS: 36415; 80053; 83735; 84439; 84443; 85025

== ENCOUNTER 2021-12-26 16:02 | Outpatient (CLI) | payer MEDICAID, SELFPAY ==
[2021-12-26 13:43] LABS: Abs Immature Grans 0.02 10^3/uL (0.0-0.06); Absolute Basophil Count 0.09 10^3/uL (0.0-0.2); Absolute Eosinophil Count 0.45 10^3/uL (0.0-0.7); Absolute Lymphocyte Count 0.94 10^3/uL (1.2-3.4); Absolute Monocyte Count 0.73 10^3/uL (0.1-0.8); Absolute Neutrophil Count 6.46 10^3/uL (1.2-6.7); Eosinophils % 5.2; HCT 38.9 % (40.0-50.0); HGB 12.5 g/dL (13.5-17.5); Immature Grans % 0.2; Lymphocytes % 10.8; MCH 29.8 pg (27.0-33.0); MCHC 32.1 % (32.0-36.0); MCV 93 fL (80-95); MPV 9.1 fL (8.0-11.0); Monocytes % 8.4; Neutrophils % 74.4; Platelet Count 539 10^3/uL (130-400); RBC 4.19 10^6/uL (4.36-5.78); RDW-SD 41.5 fL; WBC 8.69 10^3/uL (4.4-10.8)
[2021-12-26 14:06] LABS: ALT 13 U/L (16-63); AST 13 U/L (15-37); Albumin 3.2 g/dL (3.4-5.0); Alkaline Phosphatase 68 U/L (46-116); Anion Gap 8.2 mmol/L (3-11); BUN 10 mg/dL (7-18); Bilirubin, Total 0.2 mg/dL (0.2-1.0); CO2 28.8 mmol/L (21.0-32.0); CREATININE 0.9 mg/dL (0.70-1.30); Calcium 9.2 mg/dL (8.5-10.1); Chloride 99 mmol/L (98-107); Estimated GFR 104.05 (mL/min/1.73m2); Glucose 122 mg/dL (74-106); Magnesium 1.8 mg/dL (1.8-2.4); Potassium 3.8 mmol/L (3.5-5.1); Sodium 136 mmol/L (136-145); TSH 0.55 uIU/mL (0.36-3.74); Total Protein 8.2 g/dL (6.4-8.2)
== END 2021-12-26 16:03 | disposition home or self-care (01) ==
LOC: LBO 16:03
PROVIDERS: Visit Provider Internal Medicine Medical Oncology
DX: C34.31 Malignant neoplasm of lower lobe, right bronchus or lung (principal); C79.51 Secondary malignant neoplasm of bone; Z79.899 Other long term (current) drug therapy
CPT/HCPCS: 36415; 80053; 83735; 84439; 84443; 85025

== ENCOUNTER → 2022-01-09 02:47 | Outpatient (CLI) | payer MEDICAID, SELFPAY ==
--- NOTE | 2022-01-09 | DI.CT_ITS ---
Exam(s) CT CHEST W EXAM: CT CHEST W CLINICAL HISTORY: MALIGNANT NEOPLASM LOWER LOBE RT LUNG, C34.31. TECHNIQUE: Multi planar reconstructions were performed. CONTRAST MATERIAL: Omnipaque 350; 75 cc COMPARISON: CT CT CHEST W from 10/11/2021 FINDINGS: CHEST: LUNGS: There is now confluent infiltrate in the right lower lobe adjacent to the previously described destructive or postsurgical 9th rib findings and above this level there is now a fluid level within the previously described large bulla in the right lung. Fracture in the posterior aspect of the righ t 11th rib is again noted. No new rib fractures evident. The previously described nodular density i n the left upper lobe is unchanged. No new left lung findings. No pleural effusion on the left side . No pneumothorax. MEDIASTINUM: Slightly prominent mediastinal lymph nodes again noted. No new hilar adenopathy. No ne w subcarinal adenopathy. Visualized thyroid unremarkable. CARDIAC: Heart size is normal. There is no pericardial effusion.Caliber of the thoracic aorta is wit hin normal limits. VISUALIZED UPPER ABDOMEN:There are no significant adrenal masses. OSSEOUS: No new significant osseous lesions.No new additional fractures.. IMPRESSION: Compared to the CT scan of 10/11/2021 there is now significant infiltrate in the right lower lobe. I n addition, there is now a significant fluid level within the previously described large bulla occupy ing the upper right hemithorax. No new left lung findings. RADIATION DOSE DELIVERED: 421.9mGy.cm Total DLP DATA REPOSITORY: All CT scans at this facility are submitted to the National Radiology Data Registry (NRDR) Dose Index Registry (DIR) with the [employer] (ACR). RADIATION OPTIMIZATION: All CT scans at this facility use at least one of these dose optimization te chniques: automated exposure control; mA and/or kV adjustment per patient size (includes targeted exa ms where dose is matched to clinical indication); or iterative reconstruction.
[2022-01-09] MEDS: Omnipaque 350 MG/ML 500 ML BTL-Imaging package 70 ML IJ (13:15)
[2022-01-09] MEDS: Normal Saline - Diluent 50 ML VIAL IJ (13:17)
[2022-01-09] MEDS: Normal Saline Flush 10 ML SYR IVP (13:17)
== END ==
PROVIDERS: Visit Provider Nurse Practitioner Family
DX: C34.31 Malignant neoplasm of lower lobe, right bronchus or lung (principal); R91.8 Other nonspecific abnormal finding of lung field; J98.4 Other disorders of lung; R59.0 Localized enlarged lymph nodes
CPT/HCPCS: 71260

== ENCOUNTER 2022-01-14 12:53 | Outpatient (CLI) | payer MEDICAID, SELFPAY ==
[2022-01-14 12:24] LABS: Abs Immature Grans 0.02 10^3/uL (0.0-0.06); Absolute Basophil Count 0.06 10^3/uL (0.0-0.2); Absolute Eosinophil Count 0.47 10^3/uL (0.0-0.7); Absolute Lymphocyte Count 0.62 10^3/uL (1.2-3.4); Absolute Monocyte Count 0.78 10^3/uL (0.1-0.8); Absolute Neutrophil Count 4.72 10^3/uL (1.2-6.7); Basophils % 0.9; HCT 38.2 % (40.0-50.0); HGB 12.2 g/dL (13.5-17.5); Immature Grans % 0.3; Lymphocytes % 9.3; MCH 28.4 pg (27.0-33.0); MCHC 31.9 % (32.0-36.0); MCV 89 fL (80-95); MPV 8.9 fL (8.0-11.0); Monocytes % 11.7; Neutrophils % 70.8; Platelet Count 443 10^3/uL (130-400); RDW 12.4 % (11.8-14.1); RDW-SD 40.9 fL; WBC 6.67 10^3/uL (4.4-10.8)
[2022-01-14 12:51] LABS: ALT 12 U/L (16-63); AST 13 U/L (15-37); Alkaline Phosphatase 70 U/L (46-116); BUN 9 mg/dL (7-18); Bilirubin, Total 0.2 mg/dL (0.2-1.0); Calcium 9.1 mg/dL (8.5-10.1); Chloride 100 mmol/L (98-107); Estimated GFR 91.69 (mL/min/1.73m2); Glucose 112 mg/dL (74-106); Magnesium 2.1 mg/dL (1.8-2.4); Potassium 3.9 mmol/L (3.5-5.1); Sodium 137 mmol/L (136-145); TSH 2.43 uIU/mL (0.36-3.74); Total Protein 8.1 g/dL (6.4-8.2)
== END 2022-01-14 12:54 | disposition home or self-care (01) ==
LOC: LBO 12:54
PROVIDERS: Visit Provider Internal Medicine Medical Oncology
DX: C34.31 Malignant neoplasm of lower lobe, right bronchus or lung (principal); C79.51 Secondary malignant neoplasm of bone; Z79.899 Other long term (current) drug therapy
CPT/HCPCS: 36415; 80053; 83735; 84439; 84443; 85025

== ENCOUNTER 2022-02-18 03:07 | Outpatient (CLI) | payer MEDICAID, SELFPAY ==
[2022-02-18 09:26] LABS: Abs Immature Grans 0.04 10^3/uL (0.0-0.06); Absolute Basophil Count 0.13 10^3/uL (0.0-0.2); Absolute Eosinophil Count 0.46 10^3/uL (0.0-0.7); Absolute Lymphocyte Count 1.64 10^3/uL (1.2-3.4); Absolute Monocyte Count 0.78 10^3/uL (0.1-0.8); Absolute Neutrophil Count 5.86 10^3/uL (1.2-6.7); Basophils % 1.5; Eosinophils % 5.2; HCT 47.5 % (40.0-50.0); HGB 14.8 g/dL (13.5-17.5); Immature Grans % 0.4; Lymphocytes % 18.4; MCH 27.2 pg (27.0-33.0); MCHC 31.2 % (32.0-36.0); MCV 87 fL (80-95); MPV 9.1 fL (8.0-11.0); Monocytes % 8.8; Neutrophils % 65.7; Platelet Count 526 10^3/uL (130-400); RBC 5.45 10^6/uL (4.36-5.78); RDW 14.4 % (11.8-14.1); RDW-SD 45.7 fL; WBC 8.91 10^3/uL (4.4-10.8)
[2022-02-18 09:54] LABS: ALT 12 U/L (16-63); AST 14 U/L (15-37); Albumin 4.1 g/dL (3.4-5.0); Alkaline Phosphatase 81 U/L (46-116); Anion Gap 8.4 mmol/L (3-11); BUN 15 mg/dL (7-18); Bilirubin, Total 0.2 mg/dL (0.2-1.0); CO2 29.6 mmol/L (21.0-32.0); CREATININE 1.1 mg/dL (0.70-1.30); Calcium 9.5 mg/dL (8.5-10.1); Chloride 96 mmol/L (98-107); Estimated GFR 81.78 (mL/min/1.73m2); FREE T4 1.18 ng/dL (0.76-1.46); Glucose 111 mg/dL (74-106); Potassium 3.8 mmol/L (3.5-5.1); Sodium 134 mmol/L (136-145); TSH 1.52 uIU/mL (0.36-3.74); Total Protein 9.3 g/dL (6.4-8.2)
== END 2022-02-18 03:08 | disposition home or self-care (01) ==
LOC: LBO 03:07
PROVIDERS: Visit Provider Internal Medicine Medical Oncology
DX: C34.31 Malignant neoplasm of lower lobe, right bronchus or lung (principal); C79.51 Secondary malignant neoplasm of bone; Z79.899 Other long term (current) drug therapy
CPT/HCPCS: 36415; 80053; 83735; 84439; 84443; 85025

== ENCOUNTER 2022-03-11 02:52 | Outpatient (CLI) | payer MEDICAID, SELFPAY ==
[2022-03-11 10:48] LABS: Abs Immature Grans 0.04 10^3/uL (0.0-0.06); Absolute Basophil Count 0.06 10^3/uL (0.0-0.2); Absolute Eosinophil Count 0.53 10^3/uL (0.0-0.7); Absolute Monocyte Count 1.28 10^3/uL (0.1-0.8); Basophils % 0.5; Eosinophils % 4.1; HGB 13.2 g/dL (13.5-17.5); Immature Grans % 0.3; MCH 27.5 pg (27.0-33.0); MCHC 32.2 % (32.0-36.0); MCV 85 fL (80-95); MPV 9.5 fL (8.0-11.0); Monocytes % 9.9; Neutrophils % 78.2; Platelet Count 309 10^3/uL (130-400); RDW 15.7 % (11.8-14.1); RDW-SD 48.7 fL; WBC 12.91 10^3/uL (4.4-10.8)
[2022-03-11 11:16] LABS: ALT 12 U/L (16-63); AST 11 U/L (15-37); Albumin 3.7 g/dL (3.4-5.0); Alkaline Phosphatase 70 U/L (46-116); Anion Gap 8.6 mmol/L (3-11); BUN 11 mg/dL (7-18); Bilirubin, Total 0.2 mg/dL (0.2-1.0); CO2 28.4 mmol/L (21.0-32.0); CREATININE 0.9 mg/dL (0.70-1.30); Chloride 98 mmol/L (98-107); Estimated GFR 104.05 (mL/min/1.73m2); FREE T4 1.07 ng/dL (0.76-1.46); Glucose 127 mg/dL (74-106); Magnesium 1.7 mg/dL (1.8-2.4); Potassium 3.8 mmol/L (3.5-5.1); Sodium 135 mmol/L (136-145); TSH 1.75 uIU/mL (0.36-3.74); Total Protein 7.9 g/dL (6.4-8.2)
== END 2022-03-11 02:53 | disposition home or self-care (01) ==
LOC: LBO 02:52
PROVIDERS: Visit Provider Internal Medicine Medical Oncology
DX: C34.31 Malignant neoplasm of lower lobe, right bronchus or lung (principal); C79.51 Secondary malignant neoplasm of bone; Z79.899 Other long term (current) drug therapy
CPT/HCPCS: 36415; 80053; 83735; 84439; 84443; 85025

== ENCOUNTER 2022-04-08 02:40 | Outpatient (CLI) | payer MEDICAID, SELFPAY ==
[2022-04-08 12:16] LABS: Abs Immature Grans 0.02 10^3/uL (0.0-0.06); Absolute Basophil Count 0.13 10^3/uL (0.0-0.2); Absolute Eosinophil Count 0.54 10^3/uL (0.0-0.7); Absolute Monocyte Count 0.59 10^3/uL (0.1-0.8); Absolute Neutrophil Count 4.79 10^3/uL (1.2-6.7); Basophils % 1.8; Eosinophils % 7.3; HCT 43.7 % (40.0-50.0); HGB 13.9 g/dL (13.5-17.5); Immature Grans % 0.3; Lymphocytes % 17.6; MCH 27.5 pg (27.0-33.0); MCHC 31.8 % (32.0-36.0); MCV 86 fL (80-95); MPV 9.3 fL (8.0-11.0); Platelet Count 423 10^3/uL (130-400); RBC 5.06 10^6/uL (4.36-5.78); RDW-SD 50.7 fL; WBC 7.37 10^3/uL (4.4-10.8)
[2022-04-08 12:42] LABS: ALT 14 U/L (16-63); AST 9 U/L (15-37); Albumin 3.7 g/dL (3.4-5.0); Alkaline Phosphatase 74 U/L (46-116); Anion Gap 4.2 mmol/L (3-11); BUN 9 mg/dL (7-18); Bilirubin, Total 0.2 mg/dL (0.2-1.0); CO2 31.8 mmol/L (21.0-32.0); Calcium 9.3 mg/dL (8.5-10.1); Chloride 103 mmol/L (98-107); Estimated GFR 91.69 (mL/min/1.73m2); FREE T4 1.01 ng/dL (0.76-1.46); Glucose 82 mg/dL (74-106); Magnesium 1.9 mg/dL (1.8-2.4); Potassium 4.4 mmol/L (3.5-5.1); Sodium 139 mmol/L (136-145); TSH 1.05 uIU/mL (0.36-3.74); Total Protein 7.7 g/dL (6.4-8.2)
== END 2022-04-08 02:41 | disposition home or self-care (01) ==
LOC: LBO 02:40
PROVIDERS: Visit Provider Internal Medicine Medical Oncology
DX: C34.31 Malignant neoplasm of lower lobe, right bronchus or lung (principal); C79.51 Secondary malignant neoplasm of bone; Z79.899 Other long term (current) drug therapy
CPT/HCPCS: 36415; 80053; 83735; 84439; 84443; 85025

== ENCOUNTER 2022-04-29 03:47 | Outpatient (CLI) | payer MEDICAID, SELFPAY ==
[2022-04-29 12:38] LABS: Abs Immature Grans 0.07 10^3/uL (0.0-0.06); Absolute Basophil Count 0.11 10^3/uL (0.0-0.2); Absolute Eosinophil Count 0.39 10^3/uL (0.0-0.7); Absolute Lymphocyte Count 0.85 10^3/uL (1.2-3.4); Absolute Neutrophil Count 10.53 10^3/uL (1.2-6.7); Basophils % 0.8; HCT 43.8 % (40.0-50.0); HGB 14.3 g/dL (13.5-17.5); Immature Grans % 0.5; Lymphocytes % 6.5; MCH 28.1 pg (27.0-33.0); MCHC 32.6 % (32.0-36.0); MCV 86 fL (80-95); MPV 9.5 fL (8.0-11.0); Monocytes % 9.1; Neutrophils % 80.1; Platelet Count 396 10^3/uL (130-400); RBC 5.08 10^6/uL (4.36-5.78); RDW 15.5 % (11.8-14.1); RDW-SD 49.8 fL; WBC 13.15 10^3/uL (4.4-10.8)
[2022-04-29 13:16] LABS: ALT 19 U/L (16-63); AST 13 U/L (15-37); Albumin 3.6 g/dL (3.4-5.0); Alkaline Phosphatase 74 U/L (46-116); Anion Gap 9.1 mmol/L (3-11); BUN 14 mg/dL (7-18); Bilirubin, Total 0.4 mg/dL (0.2-1.0); CO2 28.9 mmol/L (21.0-32.0); CREATININE 0.8 mg/dL (0.70-1.30); Calcium 9.5 mg/dL (8.5-10.1); Chloride 99 mmol/L (98-107); Estimated GFR 107.82 (mL/min/1.73m2); FREE T4 1.19 ng/dL (0.76-1.46); Glucose 115 mg/dL (74-106); Magnesium 1.9 mg/dL (1.8-2.4); Potassium 4.4 mmol/L (3.5-5.1); Sodium 137 mmol/L (136-145); TSH 1.08 uIU/mL (0.36-3.74); Total Protein 8.2 g/dL (6.4-8.2)
== END 2022-04-29 03:48 | disposition home or self-care (01) ==
LOC: LBO 03:47
PROVIDERS: Visit Provider Internal Medicine Medical Oncology
DX: C34.31 Malignant neoplasm of lower lobe, right bronchus or lung (principal); C79.51 Secondary malignant neoplasm of bone; Z79.899 Other long term (current) drug therapy
CPT/HCPCS: 36415; 80053; 83735; 84439; 84443; 85025

== ENCOUNTER 2022-05-22 12:32 | Outpatient (CLI) | payer MEDICAID, SELFPAY ==
[2022-05-22 09:29] LABS: Abs Immature Grans 0.02 10^3/uL (0.0-0.06); Absolute Basophil Count 0.12 10^3/uL (0.0-0.2); Absolute Eosinophil Count 0.53 10^3/uL (0.0-0.7); Absolute Lymphocyte Count 1.28 10^3/uL (1.2-3.4); Absolute Monocyte Count 0.77 10^3/uL (0.1-0.8); Basophils % 1.7; Eosinophils % 7.3; HCT 42.6 % (40.0-50.0); Immature Grans % 0.3; Lymphocytes % 17.7; MCH 28.6 pg (27.0-33.0); MCHC 32.9 % (32.0-36.0); MCV 87 fL (80-95); MPV 9.2 fL (8.0-11.0); Monocytes % 10.7; Neutrophils % 62.3; Platelet Count 374 10^3/uL (130-400); RBC 4.89 10^6/uL (4.36-5.78); RDW-SD 44.8 fL; WBC 7.22 10^3/uL (4.4-10.8)
[2022-05-22 09:56] LABS: ALT 15 U/L (16-63); AST 11 U/L (15-37); Albumin 3.8 g/dL (3.4-5.0); Alkaline Phosphatase 82 U/L (46-116); Anion Gap 5.5 mmol/L (3-11); BUN 10 mg/dL (7-18); Bilirubin, Total 0.2 mg/dL (0.2-1.0); CO2 30.5 mmol/L (21.0-32.0); Calcium 9.5 mg/dL (8.5-10.1); Chloride 101 mmol/L (98-107); Estimated GFR 91.69 (mL/min/1.73m2); FREE T4 0.96 ng/dL (0.76-1.46); Glucose 89 mg/dL (74-106); Potassium 3.8 mmol/L (3.5-5.1); Sodium 137 mmol/L (136-145); TSH 0.82 uIU/mL (0.36-3.74); Total Protein 8.1 g/dL (6.4-8.2)
== END 2022-05-22 12:33 | disposition home or self-care (01) ==
LOC: LBO 12:35
PROVIDERS: Visit Provider Internal Medicine Medical Oncology
DX: C34.31 Malignant neoplasm of lower lobe, right bronchus or lung (principal); C79.51 Secondary malignant neoplasm of bone; Z79.899 Other long term (current) drug therapy
CPT/HCPCS: 36415; 80053; 83735; 84439; 84443; 85025

== ENCOUNTER 2022-06-19 02:14 | Outpatient (CLI) | payer MEDICAID, SELFPAY ==
[2022-06-19 09:41] LABS: Abs Immature Grans 0.11 10^3/uL (0.0-0.06); Absolute Basophil Count 0.07 10^3/uL (0.0-0.2); Absolute Eosinophil Count 0.33 10^3/uL (0.0-0.7); Absolute Lymphocyte Count 0.99 10^3/uL (1.2-3.4); Basophils % 0.5; Eosinophils % 2.4; HCT 39.1 % (40.0-50.0); HGB 12.6 g/dL (13.5-17.5); Immature Grans % 0.8; Lymphocytes % 7.2; MCH 28.4 pg (27.0-33.0); MCHC 32.2 % (32.0-36.0); MCV 88 fL (80-95); MPV 9.9 fL (8.0-11.0); Monocytes % 10.2; Neutrophils % 78.9; Platelet Count 411 10^3/uL (130-400); RBC 4.44 10^6/uL (4.36-5.78); RDW 14.4 % (11.8-14.1); RDW-SD 46.7 fL; WBC 13.71 10^3/uL (4.4-10.8)
[2022-06-19 09:49] LABS: Absolute Neutrophil Count 10.82 10^3/uL (1.2-6.7)
[2022-06-19 10:25] LABS: ALT 27 U/L (16-63); AST 26 U/L (15-37); Albumin 2.9 g/dL (3.4-5.0); Alkaline Phosphatase 76 U/L (46-116); Anion Gap 7.3 mmol/L (3-11); BUN 10 mg/dL (7-18); Bilirubin, Total 0.3 mg/dL (0.2-1.0); CO2 30.7 mmol/L (21.0-32.0); CREATININE 0.9 mg/dL (0.70-1.30); Calcium 9.2 mg/dL (8.5-10.1); Chloride 95 mmol/L (98-107); Estimated GFR 104.05 (mL/min/1.73m2); FREE T4 1.57 ng/dL (0.76-1.46); Glucose 157 mg/dL (74-106); Potassium 3.4 mmol/L (3.5-5.1); Sodium 133 mmol/L (136-145); TSH 1.21 uIU/mL (0.36-3.74); Total Protein 8.3 g/dL (6.4-8.2)
== END 2022-06-19 02:15 | disposition home or self-care (01) ==
LOC: LBO 02:14
PROVIDERS: Visit Provider Internal Medicine Medical Oncology
DX: C34.31 Malignant neoplasm of lower lobe, right bronchus or lung (principal); C79.51 Secondary malignant neoplasm of bone; Z79.899 Other long term (current) drug therapy
CPT/HCPCS: 36415; 80053; 83735; 84439; 84443; 85025

== ENCOUNTER 2022-07-01 01:14 | Outpatient (CLI) | payer MEDICAID, SELFPAY ==
[2022-07-01] MEDS: Normal Saline - Diluent 50 ML VIAL IJ (13:59)
[2022-07-01] MEDS: Omnipaque 350 MG/ML 100 ML BTL 70 ML IJ (14:00)
--- NOTE | 2022-07-01 14:07 | DI.CT_ITS ---
Exam(s) CT CHEST W EXAM: CT CHEST W CLINICAL HISTORY: LUNG CANCER C34.31 METS, ASSESS TREATMENT RESPONSE TECHNIQUE: Imaging Protocol: Axial computed tomography images with coronal and sagittal reformatted images were created and reviewed CONTRAST MATERIAL: Intravenous: Omnipaque 350Contrast volume:70 mL. COMPARISON: CT CT CHEST W from 01/09/2022 FINDINGS: Tracheobronchial tree: Patent where visualized. Pulmonary parenchyma: Centrilobular emphysematous changes are present. There are multiple pulmonary nodules present. These are new compared to the prior examination from 01/09/2022. The largest on th e left measures 6 mm. The largest on the right measures 1.9 x 1.8 cm. There is again seen a large c ystic lesion in the right lung with air-fluid level. It measures 11.7 x 11 cm. There has been impro vement in the opacity in the right lung base with associated bronchiectasis since 01/09/2022. Multip le large bulla are seen. Mediastinum and Anamika: There is stable enlarged mediastinal and hilar adenopathy. The esophagus is un remarkable. Thyroid gland: Unremarkable. Pleura: There is a small right pleural effusion. No left pleural effusion. No pneumothorax. Heart: The heart is not dilated. Moderate coronary artery calcification is present. No pericardial e ffusion. Aorta: Thoracic aorta non-dilated. Atherosclerosis. Pulmonary arteries: Pulmonary arteries are inadequately opacified for evaluation of pulmonary emboli. Upper abdomen: Unremarkable. Lymph nodes: No significant axillary adenopathy. Bones: Within normal limits for the patient's age. Stable destructive changes of the right 9th rib. There is a stable nonunited right 11th rib fracture. There is stable anterior wedging of the T8 and T9 vertebral bodies. Soft tissues: Unremarkable. IMPRESSION: 1. Interval development of multiple pulmonary nodules suspicious for metastatic disease. 2. Interval improvement in the opacity in the right lower lobe. 3. Centrilobular emphysema with large bulla including a right bulla with air-fluid level. Bronchiect atic changes in the lungs. 4. Stable enlarged mediastinal and hilar lymph nodes. 5. Small right pleural effusion. 6. Stable osseous lesions. RADIATION DOSE DELIVERED: 387.44mGy.cm Total DLP DATA REPOSITORY: All CT scans at this facility are submitted to the National Radiology Data Registry (NRDR) Dose Index Registry (DIR) with the [employer] (ACR). RADIATION OPTIMIZATION: All CT scans at this facility use at least one of these dose optimization te chniques: automated exposure control; mA and/or kV adjustment per patient size (includes targeted exa ms where dose is matched to clinical indication); or iterative reconstruction.
== END 2022-07-01 01:34 ==
PROVIDERS: Visit Provider Nurse Practitioner Family
DX: R91.8 Other nonspecific abnormal finding of lung field (principal); C34.31 Malignant neoplasm of lower lobe, right bronchus or lung
CPT/HCPCS: 71260; J3490

== ENCOUNTER 2022-07-10 04:40 | Outpatient (CLI) | payer MEDICAID, SELFPAY ==
[2022-07-10 12:33] LABS: Abs Immature Grans 0.15 10^3/uL (0.0-0.06); Absolute Basophil Count 0.15 10^3/uL (0.0-0.2); Absolute Eosinophil Count 0.53 10^3/uL (0.0-0.7); Absolute Lymphocyte Count 1.88 10^3/uL (1.2-3.4); Basophils % 0.8; Eosinophils % 2.9; HCT 36.2 % (40.0-50.0); HGB 11.6 g/dL (13.5-17.5); Immature Grans % 0.8; Lymphocytes % 10.2; MCH 28.3 pg (27.0-33.0); MCV 88 fL (80-95); MPV 8.6 fL (8.0-11.0); Monocytes % 6.6; Neutrophils % 78.7; RDW 14.9 % (11.8-14.1); RDW-SD 47.9 fL
[2022-07-10 13:02] LABS: ALT 14 U/L (16-63); AST 11 U/L (15-37); Alkaline Phosphatase 92 U/L (46-116); Anion Gap 6.5 mmol/L (3-11); BUN 10 mg/dL (7-18); Bilirubin, Total 0.2 mg/dL (0.2-1.0); CO2 30.5 mmol/L (21.0-32.0); Calcium 9.3 mg/dL (8.5-10.1); Chloride 98 mmol/L (98-107); Estimated GFR 91.69 (mL/min/1.73m2); Glucose 144 mg/dL (74-106); Magnesium 1.6 mg/dL (1.8-2.4); Potassium 3.5 mmol/L (3.5-5.1); Sodium 135 mmol/L (136-145); TSH 2.61 uIU/mL (0.36-3.74); Total Protein 8.5 g/dL (6.4-8.2)
[2022-07-10 13:09] LABS: Absolute Monocyte Count 1.22 10^3/uL (0.1-0.8)
[2022-07-10 13:15] LABS: Platelet Count 767 10^3/uL (130-400)
[2022-07-10 13:17] LABS: WBC 18.42 10^3/uL (4.4-10.8)
== END 2022-07-10 04:41 | disposition home or self-care (01) ==
LOC: LBO 04:40
PROVIDERS: Visit Provider Internal Medicine Medical Oncology
DX: C34.31 Malignant neoplasm of lower lobe, right bronchus or lung (principal); C79.51 Secondary malignant neoplasm of bone; Z79.899 Other long term (current) drug therapy
CPT/HCPCS: 36415; 80053; 83735; 84439; 84443; 85025

== ENCOUNTER 2022-08-05 03:13 | Outpatient (CLI) | payer MEDICAID, SELFPAY ==
[2022-08-05 13:33] LABS: Abs Immature Grans 0.05 10^3/uL (0.0-0.06); Absolute Basophil Count 0.15 10^3/uL (0.0-0.2); Absolute Eosinophil Count 0.56 10^3/uL (0.0-0.7); Absolute Lymphocyte Count 1.32 10^3/uL (1.2-3.4); Basophils % 1.4; Eosinophils % 5.1; HCT 36.5 % (40.0-50.0); HGB 11.7 g/dL (13.5-17.5); Immature Grans % 0.5; Lymphocytes % 12.1; MCHC 32.1 % (32.0-36.0); MCV 84 fL (80-95); Monocytes % 9.2; Neutrophils % 71.7; RBC 4.33 10^6/uL (4.36-5.78); RDW 14.5 % (11.8-14.1); RDW-SD 44.4 fL; WBC 10.92 10^3/uL (4.4-10.8)
[2022-08-05 13:40] LABS: Absolute Neutrophil Count 7.83 10^3/uL (1.2-6.7)
[2022-08-05 14:00] LABS: ALT 23 U/L (16-63); AST 15 U/L (15-37); Alkaline Phosphatase 85 U/L (46-116); Anion Gap 8.6 mmol/L (3-11); BUN 10 mg/dL (7-18); Bilirubin, Total 0.2 mg/dL (0.2-1.0); CO2 29.4 mmol/L (21.0-32.0); CREATININE 0.9 mg/dL (0.70-1.30); Calcium 9.3 mg/dL (8.5-10.1); Chloride 96 mmol/L (98-107); Estimated GFR 104.05 (mL/min/1.73m2); FREE T4 1.08 ng/dL (0.76-1.46); Glucose 108 mg/dL (74-106); Magnesium 2.1 mg/dL (1.8-2.4); Potassium 4.1 mmol/L (3.5-5.1); Sodium 134 mmol/L (136-145); TSH 0.52 uIU/mL (0.36-3.74); Total Protein 8.8 g/dL (6.4-8.2)
[2022-08-05 15:10] LABS: Diff Comment Diff Reviewed; Platelet Count 655 10^3/uL (130-400); RBC Morphology Normal
== END 2022-08-05 03:14 | disposition home or self-care (01) ==
PROVIDERS: Visit Provider Nurse Practitioner
DX: C34.31 Malignant neoplasm of lower lobe, right bronchus or lung (principal); C79.51 Secondary malignant neoplasm of bone; Z79.899 Other long term (current) drug therapy
CPT/HCPCS: 36415; 80053; 83735; 84439; 84443; 85025

== ENCOUNTER 2022-09-02 04:39 | Outpatient (CLI) | payer MEDICAID, SELFPAY ==
[2022-09-02 13:29] LABS: Abs Immature Grans 0.07 10^3/uL (0.0-0.06); Absolute Basophil Count 0.08 10^3/uL (0.0-0.2); Absolute Eosinophil Count 0.08 10^3/uL (0.0-0.7); Absolute Monocyte Count 1.04 10^3/uL (0.1-0.8); Absolute Neutrophil Count 11.67 10^3/uL (1.2-6.7); Basophils % 0.6; Eosinophils % 0.6; HCT 40.7 % (40.0-50.0); HGB 13.1 g/dL (13.5-17.5); Immature Grans % 0.5; Lymphocytes % 5.8; MCH 26.6 pg (27.0-33.0); MCHC 32.2 % (32.0-36.0); MCV 83 fL (80-95); Monocytes % 7.6; Neutrophils % 84.9; Platelet Count 580 10^3/uL (130-400); RBC 4.93 10^6/uL (4.36-5.78); RDW 15.6 % (11.8-14.1); RDW-SD 47.5 fL; WBC 13.74 10^3/uL (4.4-10.8)
[2022-09-02 14:04] LABS: ALT 9 U/L (16-63); AST 10 U/L (15-37); Albumin 3.3 g/dL (3.4-5.0); Alkaline Phosphatase 92 U/L (46-116); Anion Gap 10.9 mmol/L (3-11); BUN 9 mg/dL (7-18); Bilirubin, Total 0.4 mg/dL (0.2-1.0); CO2 27.1 mmol/L (21.0-32.0); CREATININE 1.2 mg/dL (0.70-1.30); Calcium 9.4 mg/dL (8.5-10.1); Chloride 93 mmol/L (98-107); Estimated GFR 73.67 (mL/min/1.73m2); FREE T4 1.11 ng/dL (0.76-1.46); Glucose 147 mg/dL (74-106); Magnesium 1.9 mg/dL (1.8-2.4); Potassium 3.7 mmol/L (3.5-5.1); Sodium 131 mmol/L (136-145); TSH 0.38 uIU/mL (0.36-3.74); Total Protein 9.3 g/dL (6.4-8.2)
== END 2022-09-02 04:40 | disposition home or self-care (01) ==
PROVIDERS: Visit Provider Nurse Practitioner
DX: C34.31 Malignant neoplasm of lower lobe, right bronchus or lung (principal); C79.51 Secondary malignant neoplasm of bone; Z79.899 Other long term (current) drug therapy
CPT/HCPCS: 36415; 80053; 83735; 84439; 84443; 85025

== ENCOUNTER 2022-09-16 02:52 | Outpatient (CLI) | payer MEDICAID, SELFPAY ==
[2022-09-16 08:02] LABS: Abs Immature Grans 0.06 10^3/uL (0.0-0.06); Absolute Basophil Count 0.11 10^3/uL (0.0-0.2); Absolute Eosinophil Count 0.34 10^3/uL (0.0-0.7); Absolute Lymphocyte Count 1.13 10^3/uL (1.2-3.4); Absolute Monocyte Count 0.65 10^3/uL (0.1-0.8); Absolute Neutrophil Count 6.08 10^3/uL (1.2-6.7); Basophils % 1.3; Eosinophils % 4.1; HCT 38.6 % (40.0-50.0); Immature Grans % 0.7; Lymphocytes % 13.5; MCH 25.9 pg (27.0-33.0); MCHC 31.1 % (32.0-36.0); MCV 83 fL (80-95); MPV 8.7 fL (8.0-11.0); Monocytes % 7.8; Neutrophils % 72.6; Platelet Count 581 10^3/uL (130-400); RBC 4.63 10^6/uL (4.36-5.78); RDW 15.1 % (11.8-14.1); RDW-SD 45.8 fL; WBC 8.37 10^3/uL (4.4-10.8)
[2022-09-16 08:26] LABS: ALT 12 U/L (16-63); AST 10 U/L (15-37); Albumin 3.3 g/dL (3.4-5.0); Alkaline Phosphatase 73 U/L (46-116); BUN 9 mg/dL (7-18); Bilirubin, Total 0.2 mg/dL (0.2-1.0); Calcium 9.1 mg/dL (8.5-10.1); Chloride 97 mmol/L (98-107); Estimated GFR 91.69 (mL/min/1.73m2); FREE T4 1.37 ng/dL (0.76-1.46); Glucose 108 mg/dL (74-106); Magnesium 1.9 mg/dL (1.8-2.4); Sodium 134 mmol/L (136-145); TSH 2.56 uIU/mL (0.36-3.74); Total Protein 8.5 g/dL (6.4-8.2)
== END 2022-09-16 02:53 | disposition home or self-care (01) ==
PROVIDERS: Visit Provider Nurse Practitioner
DX: C79.51 Secondary malignant neoplasm of bone (principal); C34.31 Malignant neoplasm of lower lobe, right bronchus or lung; Z79.899 Other long term (current) drug therapy
CPT/HCPCS: 36415; 80053; 83735; 84439; 84443; 85025

== ENCOUNTER 2022-10-28 14:36 | Outpatient (CLI) | payer MEDICAID, SELFPAY ==
[2022-10-28 09:45] LABS: Abs Immature Grans 0.04 10^3/uL (0.0-0.06); Absolute Eosinophil Count 0.79 10^3/uL (0.0-0.7); Absolute Lymphocyte Count 1.57 10^3/uL (1.2-3.4); Absolute Monocyte Count 0.96 10^3/uL (0.1-0.8); Basophils % 1.8; Eosinophils % 7.3; HCT 42.3 % (40.0-50.0); HGB 13.5 g/dL (13.5-17.5); Immature Grans % 0.4; Lymphocytes % 14.5; MCH 26.3 pg (27.0-33.0); MCHC 31.9 % (32.0-36.0); MCV 82 fL (80-95); MPV 9.8 fL (8.0-11.0); Monocytes % 8.9; Neutrophils % 67.1; Platelet Count 511 10^3/uL (130-400); RBC 5.14 10^6/uL (4.36-5.78); RDW 18.9 % (11.8-14.1); RDW-SD 56.7 fL; WBC 10.84 10^3/uL (4.4-10.8)
[2022-10-28 09:47] LABS: Absolute Neutrophil Count 7.27 10^3/uL (1.2-6.7)
[2022-10-28 10:44] LABS: ALT 9 U/L (16-63); AST 9 U/L (15-37); Alkaline Phosphatase 95 U/L (46-116); Anion Gap 10.4 mmol/L (3-11); BUN 7 mg/dL (7-18); Bilirubin, Total 0.2 mg/dL (0.2-1.0); CO2 28.6 mmol/L (21.0-32.0); CREATININE 0.9 mg/dL (0.70-1.30); Calcium 10.3 mg/dL (8.5-10.1); Chloride 97 mmol/L (98-107); FREE T4 1.13 ng/dL (0.76-1.46); Glucose 86 mg/dL (74-106); Potassium 3.7 mmol/L (3.5-5.1); Sodium 136 mmol/L (136-145); TSH 1.62 uIU/mL (0.36-3.74); Total Protein 9.6 g/dL (6.4-8.2)
== END 2022-10-28 14:37 | disposition home or self-care (01) ==
LOC: LBO 14:38
PROVIDERS: Visit Provider Nurse Practitioner
DX: C79.51 Secondary malignant neoplasm of bone (principal); C34.31 Malignant neoplasm of lower lobe, right bronchus or lung; Z79.899 Other long term (current) drug therapy
CPT/HCPCS: 36415; 80053; 83735; 84439; 84443; 85025

== ENCOUNTER → 2022-11-12 00:48 | Outpatient (CLI) | payer MEDICAID, SELFPAY ==
[2022-11-12] MEDS: Barium Sulfate 2% W/V-Creamy Vanilla Smoothie 450 ML BTL PO (10:44)
[2022-11-12] MEDS: Normal Saline - Diluent 50 ML VIAL IJ (13:06)
[2022-11-12] MEDS: Omnipaque 350 MG/ML 500 ML BTL-Imaging package 100 ML IJ (13:07)
[2022-11-12] MEDS: Normal Saline Flush 10 ML SYR IJ (13:07)
--- NOTE | 2022-11-12 13:09 | DI.CT_ITS ---
Exam(s) CT CHEST/ABD/PEL W EXAM: CT CHEST/ABD/PEL W CLINICAL HISTORY: LUNG CANCER C34.31 BONE CANCER C79.51 ASSESS TREATMENT RESPONSE. TECHNIQUE: Imaging Protocol: Axial computed tomography images with coronal and sagittal reformatted images were created and reviewed CONTRAST MATERIAL: Intravenous: Omnipaque 350 Contrast volume:100 ml Oral: yes COMPARISON: CT RENAL COLIC WO CONTRAST from 01/01/[address] CHEST PE CTA from 01/23/[address] CHEST W from 07/01/2022 FINDINGS: CHEST: Tracheobronchial tree: Bronchiectasis again noted greatest in the right lower lobe. Pulmonary parenchyma: Severe emphysematous changes large bulla at the upper lobes. Interval decrease in size of large bulla with fluid debris noted at the right upper lobe.. There is some apical thicke shikha and fluid. Marked interval improvement of previously noted multiple bilateral nodules, some of which are no longer seen. Some small nodules persist in the right upper lobe, the largest near an ar ea of scarring on which measures 12 by 15 by 9 millimeters. Previously noted left-sided nodules no l onger visible. Thickened scarring right lower lobe. Difficult to discern individual masses but sign ificant improvement in multiple masslike densities previously noted. Pleura: Small right pleural effusion. Lymph nodes: No change right hilar [place]y. Decreased size of multiple lymph nodes seen in the right pa ratracheal region to superior mediastinum. Aorta: Thoracic portion non-dilated. Pulmonary arteries: Well opacified. No emboli seen. Heart: Normal size. Mild coronary artery calcifications. Bones: Stable appearance of thoracic compression fractures. Stable appearance of destructive lesion of the right 9th rib. ABDOMEN and PELVIS: Liver: Normal density. No measurable mass. Gallbladder and biliary tract: No evidence of stones or wall thickening. No biliary dilatation. Pancreas: Normal density, no abnormal calcifications or inflammatory process. Spleen: Normal. Kidneys: Normal size, contour and axis. No radiodense stones or obstructive uropathy. No suspicious m asses seen. Adrenal glands: No masses seen. Aorta: Abdominal portion non-dilated. Mild to moderate atherosclerotic changes. Lymph nodes: Within normal limits. Soft tissues: Unremarkable. Bladder: Unremarkable. Bowel: Mild diverticulosis. No obstruction or bowel wall thickening. Peritoneal cavity: No ascites. No focal collection or mesenteric inflammatory response. Bones: Degenerative disc changes at L5-S1. No suspicious lesions identified. Reproductive organs: Within normal limits. IMPRESSION: Chest CT: Marked interval improvement in previously noted multiple bilateral pulmonary nodules. Resid ual small right upper lobe nodule. Confluent densities in the right lower lobe with scarring and bron chiectasis shows some improvement. Decreased size of loculated collection previously noted with air-f luid level in the right upper lobe.. Abdomen pelvic CT: No evidence of metastatic disease or other acute abnormality. RADIATION DOSE DELIVERED: 1,131.77mGy.cm Total DLP DATA REPOSITORY: All CT scans at this facility are submitted to the National Radiology Data Registry (NRDR) Dose Index Registry (DIR) with the [employer] (ACR). RADIATION OPTIMIZATION: All CT scans at this facility use at least one of these dose optimization te chniques: automated exposure control; mA and/or kV adjustment per patient size (includes targeted exa ms where dose is matched to clinical indication); or iterative reconstruction.
== END ==
PROVIDERS: Visit Provider Internal Medicine Medical Oncology
DX: C34.31 Malignant neoplasm of lower lobe, right bronchus or lung (principal); C79.51 Secondary malignant neoplasm of bone
CPT/HCPCS: 74177; 71260

== ENCOUNTER 2022-11-20 02:22 | Outpatient (CLI) | payer MEDICAID, SELFPAY ==
[2022-11-20 09:32] LABS: Abs Immature Grans 0.09 10^3/uL (0.0-0.06); Absolute Basophil Count 0.07 10^3/uL (0.0-0.2); Absolute Eosinophil Count 0.26 10^3/uL (0.0-0.7); Absolute Lymphocyte Count 1.45 10^3/uL (1.2-3.4); Absolute Neutrophil Count 5.97 10^3/uL (1.2-6.7); Basophils % 0.8; HCT 36.5 % (40.0-50.0); HGB 11.7 g/dL (13.5-17.5); Lymphocytes % 16.8; MCH 27.8 pg (27.0-33.0); MCHC 32.1 % (32.0-36.0); MCV 87 fL (80-95); MPV 8.4 fL (8.0-11.0); Monocytes % 9.3; Neutrophils % 69.1; Platelet Count 743 10^3/uL (130-400); RBC 4.21 10^6/uL (4.36-5.78); RDW 19.9 % (11.8-14.1); RDW-SD 61.5 fL; WBC 8.64 10^3/uL (4.4-10.8)
[2022-11-20 10:01] LABS: ALT 15 U/L (16-63); AST 10 U/L (15-37); Albumin 3.5 g/dL (3.4-5.0); Alkaline Phosphatase 91 U/L (46-116); BUN 10 mg/dL (7-18); Bilirubin, Total 0.1 mg/dL (0.2-1.0); Calcium 9.5 mg/dL (8.5-10.1); Chloride 97 mmol/L (98-107); Estimated GFR 91.12 (mL/min/1.73m2); Glucose 110 mg/dL (74-106); Magnesium 2.1 mg/dL (1.8-2.4); Potassium 4.2 mmol/L (3.5-5.1); Sodium 134 mmol/L (136-145); TSH 3.44 uIU/mL (0.36-3.74); Total Protein 8.4 g/dL (6.4-8.2)
== END 2022-11-20 02:23 | disposition home or self-care (01) ==
PROVIDERS: Visit Provider Nurse Practitioner
DX: C79.51 Secondary malignant neoplasm of bone (principal); C34.31 Malignant neoplasm of lower lobe, right bronchus or lung; Z79.899 Other long term (current) drug therapy
CPT/HCPCS: 36415; 80053; 83735; 84439; 84443; 85025

== ENCOUNTER 2022-12-09 03:09 | Outpatient (CLI) | payer MEDICAID, SELFPAY ==
[2022-12-09 09:28] LABS: Abs Immature Grans 0.02 10^3/uL (0.0-0.06); Absolute Basophil Count 0.02 10^3/uL (0.0-0.2); Absolute Eosinophil Count 0.23 10^3/uL (0.0-0.7); Absolute Lymphocyte Count 0.89 10^3/uL (1.2-3.4); Absolute Monocyte Count 0.81 10^3/uL (0.1-0.8); Absolute Neutrophil Count 3.02 10^3/uL (1.2-6.7); Basophils % 0.4; Eosinophils % 4.6; HCT 34.8 % (40.0-50.0); HGB 11.2 g/dL (13.5-17.5); Immature Grans % 0.4; Lymphocytes % 17.8; MCH 28.9 pg (27.0-33.0); MCHC 32.2 % (32.0-36.0); MCV 90 fL (80-95); MPV 9.3 fL (8.0-11.0); Monocytes % 16.2; Neutrophils % 60.6; Platelet Count 450 10^3/uL (130-400); RBC 3.88 10^6/uL (4.36-5.78); RDW 20.8 % (11.8-14.1); RDW-SD 68.3 fL; WBC 4.99 10^3/uL (4.4-10.8)
[2022-12-09 09:46] LABS: Anisocytosis 2+; Diff Comment RBC Morph Reviewed
[2022-12-09 10:05] LABS: ALT 16 U/L (16-63); AST 11 U/L (15-37); Albumin 3.8 g/dL (3.4-5.0); Alkaline Phosphatase 78 U/L (46-116); Anion Gap 9.2 mmol/L (3-11); BUN 9 mg/dL (7-18); Bilirubin, Total 0.2 mg/dL (0.2-1.0); CO2 27.8 mmol/L (21.0-32.0); Calcium 9.3 mg/dL (8.5-10.1); Chloride 95 mmol/L (98-107); Estimated GFR 91.12 (mL/min/1.73m2); FREE T4 1.13 ng/dL (0.76-1.46); Glucose 132 mg/dL (74-106); Potassium 4.4 mmol/L (3.5-5.1); Sodium 132 mmol/L (136-145); Total Protein 8.4 g/dL (6.4-8.2)
[2022-12-09 12:36] LABS: GGT 1079 U/L (15-85)
== END 2022-12-09 03:10 | disposition home or self-care (01) ==
PROVIDERS: Visit Provider Nurse Practitioner
DX: C34.31 Malignant neoplasm of lower lobe, right bronchus or lung (principal); C79.51 Secondary malignant neoplasm of bone; Z79.899 Other long term (current) drug therapy
CPT/HCPCS: 36415; 80053; 82977; 83735; 84439; 84443; 85025

== ENCOUNTER → 2022-12-23 01:14 | Outpatient (CLI) | payer MEDICAID, SELFPAY ==
--- NOTE | 2022-12-23 | DI.CT_ITS ---
Exam(s) CT CHEST W EXAM: CT CHEST W CLINICAL HISTORY: NSCLC, METS, ASSESS TREATMENT RESPONSE, C34.31. TECHNIQUE: Multi planar reconstructions were performed. CONTRAST MATERIAL: Omnipaque 350; 75 cc COMPARISON: CT CT CHEST W from 07/01/[address] CHEST/ABD/PEL W from 11/12/2022 FINDINGS: CHEST: LUNGS: Severe bullous changes again noted in the lung apices. With respect to the thick-walled cavity in the right upper lobe, it appears unchanged from 11/12/2022 , this having undergone significant decrease in size from 07/01/2022. Also no longer containing flui d, as was evident on 07/01/2022. In the peripheral aspect of the right upper lobe there is increasing pleural based infiltrate.c the o ther previously present pleural based infiltrate in the right lower lobe region appears stable-mildly further decreased. However, there is some new infiltrate evident peripherally in the lateral aspect of the right middle lobe. There are no pleural effusions. No new focal findings in the opposite-left lung. No new findings in the trachea and mainstem bronchi. MEDIASTINUM: Slightly enlarged right paratracheal lymph nodes are unchanged. There does not appear t o be new hilar nor subcarinal adenopathy when compared to the most recent study of 11/12/2022. Left hilum unremarkable. No new findings in the anterior mediastinal fat. Visualized thyroid unremarkabl e.Shoddy lymph nodes in both axillary regions noted. CARDIAC: Heart size is normal. There is no pericardial effusion.Caliber of the thoracic aorta is wit hin normal limits. VISUALIZED UPPER ABDOMEN:No adrenal masses. OSSEOUS: Postoperative right rib changes again noted. Unchanged height loss of a few thoracic verteb mike. No new vertebral fractures nor new lytic lesions nor blastic lesions identified.. IMPRESSION: 1. Compared to the most recent CT scan of 11/12/2022 there appears to be some deterioration with incr ease in amount of pleural based infiltrate in the lateral aspect of the right upper lobe and in the l ateral aspect of the right middle lobe. The right lower lobe findings remain relatively stable. The re are no pleural effusions. No obvious new adenopathy. 2. No new findings in the opposite-left hemithorax. 3. No new osseous findings. RADIATION DOSE DELIVERED: Total DLP DATA REPOSITORY: All CT scans at this facility are submitted to the National Radiology Data Registry (NRDR) Dose Index Registry (DIR) with the [employer] (ACR). RADIATION OPTIMIZATION: All CT scans at this facility use at least one of these dose optimization te chniques: automated exposure control; mA and/or kV adjustment per patient size (includes targeted exa ms where dose is matched to clinical indication); or iterative reconstruction.
[2022-12-23] MEDS: Normal Saline - Diluent 50 ML VIAL IJ (14:17)
[2022-12-23] MEDS: Omnipaque 350 MG/ML 100 ML BTL IJ (14:17)
[2022-12-23] MEDS: Normal Saline Flush 10 ML SYR IVP (14:18)
== END ==
PROVIDERS: Visit Provider Nurse Practitioner Family
DX: Z08 Encounter for follow-up examination after completed treatment for malignant neoplasm (principal); C34.31 Malignant neoplasm of lower lobe, right bronchus or lung
CPT/HCPCS: 71260; J3490

== ENCOUNTER 2022-12-30 04:32 | Outpatient (CLI) | payer MEDICAID, SELFPAY ==
[2022-12-30 09:32] LABS: Abs Immature Grans 0.05 10^3/uL (0.0-0.06); Absolute Basophil Count 0.03 10^3/uL (0.0-0.2); Absolute Eosinophil Count 0.17 10^3/uL (0.0-0.7); Absolute Lymphocyte Count 0.99 10^3/uL (1.2-3.4); Absolute Neutrophil Count 3.87 10^3/uL (1.2-6.7); Basophils % 0.5; Eosinophils % 2.9; HCT 35.9 % (40.0-50.0); HGB 11.8 g/dL (13.5-17.5); Immature Grans % 0.8; Lymphocytes % 16.8; MCH 30.5 pg (27.0-33.0); MCHC 32.9 % (32.0-36.0); MCV 93 fL (80-95); MPV 8.8 fL (8.0-11.0); Monocytes % 13.5; Neutrophils % 65.5; Platelet Count 475 10^3/uL (130-400); RBC 3.87 10^6/uL (4.36-5.78); RDW 18.9 % (11.8-14.1); RDW-SD 65.7 fL; WBC 5.91 10^3/uL (4.4-10.8)
[2022-12-30 10:00] LABS: ALT 15 U/L (16-63); AST 15 U/L (15-37); Albumin 3.7 g/dL (3.4-5.0); Alkaline Phosphatase 80 U/L (46-116); Anion Gap 7.8 mmol/L (3-11); BUN 4 mg/dL (7-18); Bilirubin, Total 0.2 mg/dL (0.2-1.0); CO2 29.2 mmol/L (21.0-32.0); Calcium 9.5 mg/dL (8.5-10.1); Chloride 96 mmol/L (98-107); Estimated GFR 91.12 (mL/min/1.73m2); FREE T4 1.28 ng/dL (0.76-1.46); Glucose 105 mg/dL (74-106); Magnesium 2.1 mg/dL (1.8-2.4); Potassium 4.5 mmol/L (3.5-5.1); Sodium 133 mmol/L (136-145); TSH 2.28 uIU/mL (0.36-3.74); Total Protein 8.7 g/dL (6.4-8.2)
== END 2022-12-30 04:33 | disposition home or self-care (01) ==
PROVIDERS: Internal Medicine Medical Oncology; Visit Provider Nurse Practitioner
DX: C34.31 Malignant neoplasm of lower lobe, right bronchus or lung (principal); C79.51 Secondary malignant neoplasm of bone; Z79.899 Other long term (current) drug therapy
CPT/HCPCS: 36415; 80053; 83735; 84439; 84443; 85025

== ENCOUNTER 2023-01-02 01:46 | Observation (INO) | payer MEDICAID, SELFPAY ==
[2023-01-02] VITALS (39 sets, daily range): BP systolic 116–164; BP diastolic 84–100; PULSE 92–124; RESP 5–22; TEMP 36.2–37.4; O2SAT 88–100
--- NOTE | 2023-01-02 01:45 | DI.RAD_ITS ---
Exam(s) XR PORTABLE CHEST AP EXAM: XR PORTABLE CHEST AP CLINICAL HISTORY: Shortness of breath TECHNIQUE: 2D digital imaging was performed of the chest. One image was obtained. An AP view was ob tained. COMPARISON: CT CT CHEST W from 08/28/[address] CHEST W from 07/01/[address] CHEST W from 12/23/2022 FINDINGS: MEDIASTINUM: Normal. HEART: Normal. PULMONARY VASCULATURE: Normal. LUNGS: The lungs are hyperinflated with hyperlucent lung apices consistent with COPD. The infiltrate in the right upper lobe has shown some improvement compared to 12/23/2022. There is a question of a developing left basilar infiltrate. PLEURAL SPACE: No pleural effusion or pneumothorax. BONE:Within normal limits for the patient's age. OTHER FINDINGS:Normal. IMPRESSION: 1. Improved right upper lobe infiltrate. 2. Question of a developing left lower lobe infiltrate. DATA REPOSITORY: RADIATION DOSE DELIVERED:
--- NOTE | 2023-01-02 01:45 | RT.EKG_ITS ---
APPROVED REPORT Exam: Resting ECG Reason for Exam: short of breath Patient Location: E HR:101 bpm ECG Measurements Heart Rate 101 AXIS UT 139 P 78 QRSd 71 QRS 67 QT 326 T 78 QTc 422 Conclusion Sinus tachycardia...rate> 99 Low voltage, extremity leads...all extremity leads <0.5mV Narrow complex sinus tachycardia at a rate of 101. Normal axis. Intervals within normal limits. Lo w voltage limb leads. T wave inversion in aVL. No acute ST segment abnormalities. No prior for com eCollecton. No acute injury pattern.
[2023-01-02] MEDS: Normal Saline 500 ML IV (01:56)
[2023-01-02] MEDS: Doxycycline Hyclate 100 MG CAP PO (01:56)
[2023-01-02 01:59] LABS: BE (Venous) 9 mmol/L (-2-3); HCO3 (Venous) 34 mmol/L (23-28); O2 Sat (Venous) 75 %; TCO2 (Venous) 31 mmol/L (24-29); pCO2 (Venous) 58 mmHg (41-51); pH (Venous) 7.37 (7.31-7.41); pO2 (Venous) 44 mmHg
[2023-01-02 02:02] LABS: Abs Immature Grans 0.03 10^3/uL (0.0-0.06); Absolute Basophil Count 0.04 10^3/uL (0.0-0.2); Absolute Eosinophil Count 0.07 10^3/uL (0.0-0.7); Absolute Lymphocyte Count 1.58 10^3/uL (1.2-3.4); Absolute Monocyte Count 0.23 10^3/uL (0.1-0.8); Basophils % 0.4; Eosinophils % 0.7; HCT 35.6 % (40.0-50.0); HGB 11.5 g/dL (13.5-17.5); Immature Grans % 0.3; Lymphocytes % 15.7; MCH 29.9 pg (27.0-33.0); MCHC 32.3 % (32.0-36.0); MCV 93 fL (80-95); Monocytes % 2.3; Neutrophils % 80.6; Platelet Count 533 10^3/uL (130-400); RBC 3.84 10^6/uL (4.36-5.78); RDW 18.9 % (11.8-14.1); RDW-SD 65.1 fL; WBC 10.05 10^3/uL (4.4-10.8)
[2023-01-02 02:13] LABS: Anion Gap 4.9 mmol/L (3-11); BUN 9 mg/dL (7-18); CO2 33.1 mmol/L (21.0-32.0); CREATININE 0.9 mg/dL (0.70-1.30); Calcium 9.5 mg/dL (8.5-10.1); Chloride 98 mmol/L (98-107); Glucose 118 mg/dL (74-106); Potassium 4.8 mmol/L (3.5-5.1); Sodium 136 mmol/L (136-145)
--- NOTE | 2023-01-02 02:18 | W.ED.GENAD ---
Discharge Plan Disposition Patient Disposition: Admit to [facility] Discharge Details Clinical Impression: COPD with acute exacerbation, Acute respiratory failure with hypoxia and hypercarbia, Left lower lobe pneumonia Primary Care Provider: Unknown,Unknown ED Provider: Buddy Clark [place] Meds and New Rx's Prescriptions: No Action omeprazole 40 mg capsule,delayed release(DR/EC) 40 mg PO DAILY tiotropium bromide [Spiriva with HandiHaler] 18 mcg capsule, w/inhalation device 1 cap inhalation DAILY Rx Instructions: puncture 1 cap using device; one dose = 2 inhalations albuterol sulfate 90 mcg/actuation aerosol powdr breath activated 2 inh inhalation Q6H PRN fluticasone propion-salmeterol [Advair Diskus] 250-50 mcg/dose blister with device 1 inh inhalation BID pregabalin [Lyrica] 25 mg capsule 25 mg PO QHS morphine 100 mg capsule,extend.release pellets 100 mg PO TID hydromorphone [Dilaudid] 2 mg tablet 2 mg PO TID HPI General Date/Time Provider Initiated Documentation: 01/02/23 01:49. HPI Narrative: MDM This is a mildly tachypneic and tachycardic but normothermic 52-year-old male with tobacco dependence history of lung cancer and COPD now with acute COPD exacerbation for which patient will receive nebulized albuterol and doxycycline given prehospital nebulized albuterol with ipratropium and methylprednisolone. Patient does also have hypoxia but in the absence of any chest pain my suspicion is low for PE. Furthermore given his significant wheezes my suspicion is lower for PE lower so did not send a D-dimer. No significant lower extremity pitting edema to suggest CHF. Sudden onset symptoms without fevers so doubt pneumonia however based on history of malignancy we will obtain chest x-ray. No pain out of proportion to suggest necrotizing soft tissue infection. Low suspicion for ACS based on history and lack of chest pain. However based on age will obtain ECG. No reported aspiration events to suggest upper airway foreign body. We will ensure patient is able to tolerate an ambulatory trial. 2:53 AM CBC showing no leukocytosis. Mild chronic seeming normocytic anemia. Chronic thrombocytosis similar to prior. Venous blood gas with mild hypercarbia but no acidemia. Basic metabolic panel with no PAT. Very mild hyperglycemia but no anion gap. Not consistent with DKA. Mildly elevated bicarbonate. COVID influenza RSV all negative. 3:51 AM Patient resting comfortably asleep requiring 2 L nasal cannula to maintain oxygen saturations of 88%. If patient desaturates with ambulation or has markedly increased work of breathing will consider hospitalization. Preliminary virtual radiology read concerning for possibility of left lower lung pneumonia for which patient will receive additional amoxicillin clavulanic acid: Exam: XR Chest Exam date and time: 01/02/2023 2:39 AM Age: 52 years old Clinical indication: Shortness of breath TECHNIQUE: Imaging protocol: Radiologic exam of the chest. Views: 1 view. COMPARISON: CT CHEST W 12/23/2022 2:16 PM FINDINGS: Lungs: Bullous emphysema and scarring in the right lung embolus emphysema in the left lung apex as depicted on prior chest CT. There is probable infectious bronchiolitis/bronchopneumonia in the lower left lung. Pleural spaces: Unremarkable. No pleural effusion. No pneumothorax. Heart/Mediastinum: Unremarkable. No cardiomegaly. Bones/joints: Unremarkable. IMPRESSION: 1. Bullous emphysema and scarring in the right lung embolus emphysema in the left lung apex as depicted on prior chest CT. 2. There is probable infectious bronchiolitis/bronchopneumonia in the lower left lung. Dictated and Authenticated by: Rah Good MD 01/02/2023 3:43 AM Eastern Time ([place] & [place]) 4:07 AM An ambulatory trial was attempted. Fortunately patient became markedly hypoxic on room air quickly dropping his saturations from 89 to 84%. Patient was walked back into his room. He was placed on 4 L nasal cannula. We will reach out to the hospitalist team with request for hospitalization. 4:16 AM I spoke with Dr. Cox who agreed graciously to accept the patient for hospitalization. Chronic conditions affecting the care of the patient: COPD lung cancer History obtained from an outside historian: Paramedics External [place] [facility] [place] Diagnostic interpretations performed by me: Per my independent interpretation chest x-ray shows: Concerning for right upper lobe infiltrate versus neoplasm. Per my independent interpretation EKG shows: Narrow complex sinus tachycardia at a rate of 101. Normal axis. Intervals within normal limits. Low voltage limb leads. T wave inversion in aVL. No acute ST segment abnormalities. No prior for comparison. No acute injury pattern. Medications: Albuterol normal saline Social determinants of health affecting disposition: N/A Management discussed with: Dr. Cox Treatment/interventions considered: Discharge but deferred given hypoxia with ambulation Response to therapies provided: Improved symptoms following nebulization treatment HPI This is a 52-year-old smoker with a history of lung neoplasm and COPD arrived to the emergency department via paramedics in the setting of shortness of breath. Patient reports that he was sleeping upstairs on the third floor. His sister was reportedly cooking below him and he woke up feeling exceedingly short of breath. He reports it was quite reading interventionist the house at this point time and somewhat smoky. He was working quite hard to breathe with room air saturations in the 90s. He is not on home oxygen. Paramedics provided him with a DuoNeb and 125 mg of methylprednisolone. He has never been intubated in the past nor been hospitalized in the past for COPD exacerbation. He denies any fevers. The steroids that he has recently received have pain with his chemotherapy. Exam General: Well-appearing in mild distress speaking in 3-4 word sentences. Head: Normocephalic, atraumatic. Eye: Extraocular eye movements intact. No conjunctival injection. No scleral icterus. Ear, nose, mouth, throat: Grossly normal inspection. Normal voice, handling secretions normally. Neck: Trachea midline. Cardiovascular: Well-perfused distal extremities. Rapid regular rate Respiratory: Mildly labored respirations. Respiratory rate 25. Saturating 95% on 1 L nasal cannula. Markedly prolonged expiratory phase with diffuse end expiratory wheezes. No stridor. No airway tripoding. Gastrointestinal: Nondistended abdomen. Musculoskeletal: No pitting lower extremity edema. Moving all 4 extremities spontaneously. Skin: Normal for age and race, grossly normal temperature and turgor. No acute rash. Neurologic: Alert and appropriate, no apparent acute deficits. Psychiatric: Mood and manner are appropriate. Grooming and personal hygiene are appropriate. Related Data Home Medications Medication Instructions Recorded Confirmed albuterol sulfate 90 mcg/actuation 2 inh inhalation Q6H PRN 03/22/21 01/02/23 breath activated powder inhaler fluticasone 250 mcg-salmeterol 50 1 inh inhalation BID 03/22/21 01/02/23 mcg/dose blistr powdr for inhalation (Advair Diskus) omeprazole 40 mg capsule,delayed 40 mg PO DAILY 03/22/21 01/02/23 release tiotropium bromide 18 mcg capsule 1 cap inhalation DAILY 03/22/21 01/02/23 with inhalation device (Spiriva with HandiHaler) pregabalin 25 mg capsule (Lyrica) 25 mg PO QHS 05/01/21 01/02/23 hydromorphone 2 mg tablet 2 mg PO TID 01/02/23 01/02/23 (Dilaudid) morphine 100 mg capsule,extended 100 mg PO TID 01/02/23 01/02/23 release pellets Allergies Allergy/AdvReac Type Severity Reaction Status Date / Time amitriptyline AdvReac Intermediate Verified 01/02/23 01:58 General Stated Complaint: RespSymp STEPH: 3 PFSH All Active Problems (Updated 01/02/23 @ 03:52 by Buddy Clark MD) Left lower lobe pneumonia (Acute) Acute respiratory failure with hypoxia and hypercarbia (Acute) COPD with acute exacerbation (Acute) Right rotator cuff tendonitis (Acute) Back pain, thoracic (Acute) COPD (chronic obstructive pulmonary disease) (Chronic) Tobacco dependence (Acute) Thrombocytosis (Acute) Medical History (Updated 01/02/23 @ 03:52 by Buddy Clark MD) Elevated blood pressure reading Social History (Updated 08/29/21 @ 15:45 by Shania Ron RN) Smoking/Tobacco Use Status: Current every day Tobacco Type: cigarettes Smoking risk assessment performed?: Yes Alcohol Intake: current Alcohol Intake frequency: holidays/special occasions only Substance use type: marijuana Housing: apartment Current gender identity: male Course Vital Signs Vital signs: Vital Signs Temperature 37.4 C 01/02/23 01:46 Pulse 124 H 01/02/23 01:46 Respiratory Rate 01/02/23 01:46 Blood Pressure 164/100 H 01/02/23 01:46 Pulse Oximetry 100 01/02/23 01:46 Temperature 37.4 C 01/02/23 01:46 Temperature Source Tympanic 01/02/23 01:46 Pulse 124 H 01/02/23 01:46 Respiratory Rate 22 01/02/23 01:46 Respiratory Effort Normal 01/02/23 01:50 Respiratory Depth Deep 01/02/23 01:50 Blood Pressure 164/100 H 01/02/23 01:46 Blood Pressure Position Sitting 01/02/23 01:46 Pulse Oximetry 94 01/02/23 02:02 Oxygen Delivery Method Nasal Cannula 01/02/23 02:02 Oxygen Flow Rate 4 01/02/23 02:02 Lab/Test Results Lab/Test Results: Laboratory Tests Range/Units 01/02/23 01:55 WBC (4.4-10.8) 10^3/uL 10.05 RBC (4.36-5.78) 10^6/uL 3.84 L Hgb (13.5-17.5) g/dL 11.5 L Hct (40.0-50.0) % 35.6 L MCV (80-95) fL 93 MCH (27.0-33.0) pg 29.9 MCHC (32.0-36.0) % 32.3 RDW (11.8-14.1) % 18.9 H Plt Count (130-400) 10^3/uL 533 H MPV (8.0-11.0) fL 9.0 Immature Gran % 0.3 Neutrophils % 80.6 Lymphocytes % 15.7 Monocytes % 2.3 Eosinophils % 0.7 Basophils % 0.4 Nucleated RBC % (0.0-0.3) % 0.0 Absolute Neutrophils (1.2-6.7) 10^3/uL 8.10 H Absolute Lymphocytes (1.2-3.4) 10^3/uL 1.58 Absolute Monocytes (0.1-0.8) 10^3/uL 0.23 Absolute Eosinophils (0.0-0.7) 10^3/uL 0.07 Absolute Basophils (0.0-0.2) 10^3/uL 0.04 VBG pH (7.31-7.41) 7.37 VBG pCO2 (41-51) mmHg 58 H VBG pO2 mmHg 44 VBG HCO3 (23-28) mmol/L 34 H VBG Total CO2 (24-29) mmol/L 31 H VBG O2 Saturation % 75 VBG Base Excess (-2-3) mmol/L 9 H Critical Care Time Critical Care Time Critical Care Time: Yes Total Critical Care Time: 45 Attestation: Acute respiratory failure with hypoxia and hypercarbia requiring bedside management
[2023-01-02] MEDS: Albuterol 2.5 MG/3 ML INH SOLN VIAL 5 MG UPD (02:27)
[2023-01-02 02:39] LABS: COVID-19 PCR Negative (Negative); Influenza A PCR Negative (Negative); Influenza B PCR Negative (Negative); RSV PCR Negative (Negative); Source Nasopharynx
--- NOTE | 2023-01-02 03:44 | DI.VRAD_ITS ---
PROCEDURE INFORMATION: Exam: XR Chest Exam date and time: 01/02/2023 2:39 AM Age: 52 years old Clinical indication: Shortness of breath TECHNIQUE: Imaging protocol: Radiologic exam of the chest. Views: 1 view. COMPARISON: CT CHEST W 12/23/2022 2:16 PM FINDINGS: Lungs: Bullous emphysema and scarring in the right lung embolus emphysema in the left lung apex as depicted on prior chest CT. There is probable infectious bronchiolitis/bronchopneumonia in the lower left lung. Pleural spaces: Unremarkable. No pleural effusion. No pneumothorax. Heart/Mediastinum: Unremarkable. No cardiomegaly. Bones/joints: Unremarkable. IMPRESSION: 1. Bullous emphysema and scarring in the right lung embolus emphysema in the left lung apex as depicted on prior chest CT. 2. There is probable infectious bronchiolitis/bronchopneumonia in the lower left lung. Dictated and Authenticated by: Rah Good MD. Ordering:SHOBHA Goodwin MD
[2023-01-02] MEDS: Amoxicillin 875/Clav. 125 TAB PO (04:10)
--- NOTE | 2023-01-02 06:14 | HPE_ITS ---
Date of service: 01/02/23 Time of Service: 06:15 Assessment and Plan Assessment and plan (1) COPD with acute exacerbation: Status: Acute Assessment and plan: Initially managed with solumedrol and bronchodilators in the ED. His symptoms have improved somewhat but still hypoxic and thus admission is indicated. Will continue with both along with home ICS/LABA and LAMA controller inhalers. (2) Acute respiratory failure with hypoxia and hypercarbia: Status: Acute Assessment and plan: As above, now stable on 3 liters via NC. (3) Left lower lobe pneumonia: Status: Acute Assessment and plan: His acute worsening symptoms overnight and and chest x-ray do suggest bacterial pneumonia on top of a viral infection. Initially started on oral therapy, but given his level of illness will treat with Ampacillin/sulbactam and doxycycline IV until he clinically improves. Get sputum culture. Qualifiers: Pneumonia type: due to unspecified organism Qualified Code(s): J18.9 - Pneumonia, unspecified organism (4) Non-small cell lung cancer metastatic to bone: Status: Acute Assessment and plan: We still need to obtain updated oncology notes from [facility] to confirm his therapy. (5) Anemia: Status: Chronic Assessment and plan: Chronic mild anemia and thrombocytosis, likely related to his cancer. Stable. Qualifiers: Anemia type: other cause (6) Tobacco dependence: Status: Acute Assessment and plan: He has cut down, trying to quit. Declines NRT for now but ordered PRN. (7) DVT prophylaxis: Status: Acute Assessment and plan: LMWH (8) Discharge planning issues: Status: Acute Assessment and plan: Home when hypoxia improves with transition back to oral steroid/antibiotics History of Present Illness History of Present Illness Chief Complaint: SOB, cough Narrative: 52 yo M with stage 4 non-small cell lung cancer, tobacco smoking, COPD who presented with acute onset shortness of breath that developed over the past week. He states he had a cold for the past week or so with cough and runny nose. He had his normal chemotherapy on Friday, which decreases his immune system. Since yesterday, he has felt like the infection settled in his chest. There was also a little smoke from his sister cooking last night, but he doesn't think this was a major factor. He is coughing up some thick sputum. He has not had fevers. EMS called, he was given duoneb and methylprednisolone in the field. After 1hr albuterol in the ED, attempted walking but desaturated into the low 80s immediately on room air. Of note in his history, current treatment regimen for NSCLC includes keytruda. The last heme/onc note I could access from May mentions palliative chemotherapy, but I could not get access to [facility] record due to changes in that system, patient states he is getting infusion of a combination chemotherapy. CT from 12/23/22 showed some progression of a pleaural infiltrate since 11/12/22. Review of Systems Constitutional Constitutional: Denies anorexia, Denies chills, Denies fever(s), Denies headache(s), Reports lethargy, Denies weakness, Denies weight gain and Denies weight loss Eyes Eyes: Denies change in vision and Denies irritation ENT Ears, Nose, Mouth, and Throat: Reports as per HPI, Denies change in voice, Denies dizziness, Denies otalgia, Denies headache(s), Reports nasal congestion, Reports nasal discharge and Denies sore throat Cardiovascular Cardiovascular: Denies chest pain, Denies syncope, Denies leg edema, Denies palpitations, Reports dyspnea on exertion and Reports orthopnea Respiratory Respiratory: Reports cough, Denies hemoptysis, Reports excessive phlegm production, Reports dyspnea on exertion and Reports wheezing Gastrointestinal Gastrointestinal: Denies abdominal pain, Denies change in bowel habits, Denies constipation, Denies heartburn, Denies diarrhea, Denies nausea and Denies vomiting Genitourinary Genitourinary: Denies hematuria, Denies dysuria and Denies urinary incontinence Musculoskeletal Comments: chronic severe back pain Integumentary/Breasts Skin/Breast: Denies rash and Denies skin ulcer Neurologic Neurologic: Denies confusion, Denies dizziness, Denies syncope, Denies headache(s), Denies sensory deficit and Denies weakness Psychiatric Psychiatric: Denies confusion and Denies mood swings Endocrine Endocrine: Denies palpitations Hematologic/Lymphatic Hematologic/Lymphatic: Denies easy bleeding Allergic/Immunologic Allergic/Immunologic: Reports wheezing PFSH All Active Problems (Updated 01/02/23 @ 08:26 by Buddy Cox) Non-small cell lung cancer metastatic to bone (Acute) Anemia (Chronic) Discharge planning issues (Acute) DVT prophylaxis (Acute) Left lower lobe pneumonia (Acute) Acute respiratory failure with hypoxia and hypercarbia (Acute) COPD with acute exacerbation (Acute) Back pain, thoracic (Acute) COPD (chronic obstructive pulmonary disease) (Chronic) Tobacco dependence (Acute) Medical History (Updated 01/02/23 @ 08:26 by Buddy Cox) History of diverticulitis Thrombocytosis GERD (gastroesophageal reflux disease) Right rotator cuff tendonitis Elevated blood pressure reading Surgical History S/P reconstruction of ligament of knee Family History Mother Breast cancer Other Cancer Social History Smoking/Tobacco Use Status: Current every day Tobacco Type: cigarettes Smoking risk assessment performed?: Yes Alcohol Intake: current Alcohol Intake frequency: holidays/special occasions only Substance use type: marijuana Housing: apartment Current gender identity: male Additional Social history: lives with sister in apartment in [facility]. Born in [place], lived in [place] x 30 years. 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 Remote 4 year incarceration. Meds Allergies and Home Medications Allergies Allergy/AdvReac Type Severity Reaction Status Date / Time amitriptyline AdvReac Intermediate Verified 01/02/23 01:58 Home Medications Medication Instructions Recorded Confirmed Type albuterol sulfate 90 mcg/actuation 2 inh inhalation Q6H PRN 03/22/21 01/02/23 History breath activated powder inhaler fluticasone 250 mcg-salmeterol 50 1 inh inhalation BID 03/22/21 01/02/23 History mcg/dose blistr powdr for inhalation (Advair Diskus) omeprazole 40 mg capsule,delayed 40 mg PO DAILY 03/22/21 01/02/23 History release tiotropium bromide 18 mcg capsule 1 cap inhalation DAILY 03/22/21 01/02/23 History with inhalation device (Spiriva with HandiHaler) dronabinol 10 mg capsule 10 mg PO BID 01/02/23 01/02/23 History hydromorphone 2 mg tablet 4 mg PO TID 01/02/23 01/02/23 History (Dilaudid) morphine 100 mg capsule,extended 100 mg PO TID 01/02/23 01/02/23 History release pellets pregabalin 50 mg capsule (Lyrica) 50 mg PO BID 01/02/23 01/02/23 History Exam Narrative Exam Narrative: GEN: Alert and oriented, pleasant and cooperative, gives linear history. No acute distress at rest, mildly dyspneic with movement. HEENT: Head atraumatic. Conjunctiva clear, no icterus. PEERL, EOMI. no rhinorrhea. MMM, OP benign. Neck is supple with no masses or lymphadenopathy, trachea midline LUNGS: Diffuse expiratory wheeze with prolonged expiration, hyperresonant, no focal rales. CV: RRR with no murmurs, gallops, or rubs. ABD: +BS, soft, NT/ND, no masses EXT: no cyanosis, clubbing, or edema. legs not tender. MSK: No joint redness or swelling NEURO: CN 2-12 grossly intact. Normal movement of 4 extremities. Normal speech and coordination. no tremor SKIN: No rashes or open wounds. PSYCH: normal mood and affect, normal thought process Results Imaging Chest x-ray: report reviewed (1. Bullous emphysema and scarring in the right lung embolus emphysema in the left lung apex as depicted on prior chest CT. 2. There is probable infectious bronchiolitis/bronchopneumonia in the lower left lung. ) EKG: report reviewed and image reviewed (sinus tachycardia 101, normal axis, intervals. No ST-T abnormalities. Low voltage likely secondary to emphysema) Labs 01/02/23 01:55 01/02/23 01:55 Labs: Laboratory Results - last 24 hr 01/02/23 01:55 WBC 10.05 RBC 3.84 L Hgb 11.5 L Hct 35.6 L MCV 93 MCH 29.9 MCHC 32.3 RDW 18.9 H Plt Count 533 H MPV 9.0 Immature Gran % 0.3 Neutrophils % 80.6 Lymphocytes % 15.7 Monocytes % 2.3 Eosinophils % 0.7 Basophils % 0.4 Nucleated RBC % 0.0 Absolute Neutrophils 8.10 H Absolute Lymphocytes 1.58 Absolute Monocytes 0.23 Absolute Eosinophils 0.07 Absolute Basophils 0.04 VBG pH 7.37 VBG pCO2 58 H VBG pO2 44 VBG HCO3 34 H VBG Total CO2 31 H VBG O2 Saturation 75 VBG Base Excess 9 H Sodium 136 Potassium 4.8 Chloride 98 Carbon Dioxide 33.1 H Anion Gap 4.9 BUN 9 Creatinine 0.9 Est GFR (CKD-EPI 2020) 103.40 Glucose 118 H Calcium 9.5 COVID-19 Source Nasopharynx SARS-CoV-2 (PCR) Negative Influenza Type A (PCR) Negative Influenza Type B (PCR) Negative RSV (PCR) Negative Last Vital Signs Temp 37.4 C 01/02/23 01:46 Pulse 124 H 01/02/23 01:46 Resp 22 01/02/23 01:46 BP 164/100 H 01/02/23 01:46 Pulse Ox 94 01/02/23 04:12 Time Spent Time spent with Patient: 55-74 minutes Time was spent: preparing to see the patient(eg.review tests), obtaining and/or reviewing separately otained hiistory, ordering medications,tests, procedures, referring, communicating with other health care navigator, indepentently interpreting results and counseling the patient
[2023-01-02] MEDS: AMPICILLIN/SULBACTAM 3 GM in Normal Saline 100 ML IVPB ×3 (08:19→20:07)
[2023-01-02] MEDS: Omeprazole 20 MG CAPCR 40 MG PO (10:00)
[2023-01-02] MEDS: methylPREDNISolone SUCC 125 MG VIAL 80 MG IVP ×2 (10:01→17:22)
[2023-01-02] MEDS: Enoxaparin 40 MG/0.4 ML SYR SC (10:02)
--- NOTE | 2023-01-02 10:17 | NUR.NOTE ---
Nursing Note: Pt declined morning dose of pain medications (specifically morphine and dilaudid). Pt states he had a dose of both with him and took it, stating, I wasn't sure how long it would take before I could have it. Pt states he has only the one dose, stating, I only brought the one dose. Pt aware of the risks of taking both home pain meds and hospital meds, stating, I understand. I'm a cancer patient, I've been in the hospital a lot. Pt again states, I only had the one dose. I don't want to stop breathing.
[2023-01-02] MEDS: Budesonide/Formoterol 160/4.5 6 GM 60 PUFF INH IH ×2 (11:55→20:07)
[2023-01-02] MEDS: Tiotropium Bromide-Respimat 10 PUFF INH IH (11:56)
[2023-01-02] MEDS: DOXYCYCLINE 100 MG in Normal Saline 100 ML IVPB ×2 (12:06→23:00)
[2023-01-02] MEDS: Dronabinol 2.5 MG CAP 10 MG PO ×2 (12:07→16:41)
[2023-01-02] MEDS: Pregabalin 50 MG CAP PO ×2 (12:07→20:03)
[2023-01-02] MEDS: guaiFENesin 600 MG TABCR PO ×2 (12:08→20:03)
[2023-01-02] MEDS: Albuterol/Ipratropium 3 ML UPD VIAL UPD ×2 (13:41→20:02)
--- NOTE | 2023-01-02 14:10 | RESPIRATORY ---
Patient states that he does not use home O2.
[2023-01-02] MEDS: HYDROmorphone 4 MG TAB PO ×2 (14:55→20:03)
[2023-01-03] VITALS (7 sets, daily range): BP systolic 148–151; BP diastolic 82–95; PULSE 99–109; RESP 5–18; TEMP 36.9; O2SAT 96–99
[2023-01-03] MEDS: Albuterol/Ipratropium 3 ML UPD VIAL UPD ×4 (02:10→21:03)
[2023-01-03] MEDS: AMPICILLIN/SULBACTAM 3 GM in Normal Saline 100 ML IVPB ×4 (04:14→21:02)
[2023-01-03] MEDS: Dronabinol 2.5 MG CAP 10 MG PO ×2 (06:11→16:25)
[2023-01-03] MEDS: HYDROmorphone 4 MG TAB PO ×3 (06:44→23:15)
[2023-01-03 06:52] LABS: BE (Venous) 7 mmol/L (-2-3); HCO3 (Venous) 32 mmol/L (23-28); O2 Sat (Venous) 70 %; TCO2 (Venous) 30 mmol/L (24-29); pCO2 (Venous) 50 mmHg (41-51); pH (Venous) 7.42 (7.31-7.41); pO2 (Venous) 39 mmHg
[2023-01-03 06:54] LABS: Abs Immature Grans 0.03 10^3/uL (0.0-0.06); Absolute Lymphocyte Count 0.25 10^3/uL (1.2-3.4); Absolute Monocyte Count 0.02 10^3/uL (0.1-0.8); Absolute Neutrophil Count 7.21 10^3/uL (1.2-6.7); HCT 30.5 % (40.0-50.0); HGB 10.3 g/dL (13.5-17.5); Immature Grans % 0.4; Lymphocytes % 3.3; MCH 31.1 pg (27.0-33.0); MCHC 33.8 % (32.0-36.0); MCV 92 fL (80-95); MPV 9.1 fL (8.0-11.0); Monocytes % 0.3; Platelet Count 425 10^3/uL (130-400); RBC 3.31 10^6/uL (4.36-5.78); RDW-SD 61.6 fL; WBC 7.51 10^3/uL (4.4-10.8)
[2023-01-03 07:05] LABS: Anion Gap 4.2 mmol/L (3-11); BUN 12 mg/dL (7-18); C-Reactive Protein 5.34 mg/dL (0.0-0.3); CO2 32.8 mmol/L (21.0-32.0); CREATININE 0.9 mg/dL (0.70-1.30); Calcium 9.8 mg/dL (8.5-10.1); Chloride 98 mmol/L (98-107); Glucose 169 mg/dL (74-106); Potassium 4.3 mmol/L (3.5-5.1); Sodium 135 mmol/L (136-145)
[2023-01-03] MEDS: Enoxaparin 40 MG/0.4 ML SYR SC (07:39)
[2023-01-03] MEDS: Omeprazole 20 MG CAPCR 40 MG PO (07:40)
[2023-01-03] MEDS: Pregabalin 50 MG CAP PO ×2 (07:40→21:04)
[2023-01-03] MEDS: methylPREDNISolone SUCC 125 MG VIAL 80 MG IVP ×4 (07:41→23:14)
[2023-01-03 07:46] LABS: Procalcitonin < 0.1 ng/mL
[2023-01-03] MEDS: guaiFENesin 600 MG TABCR PO ×2 (08:00→21:04)
[2023-01-03] MEDS: Budesonide/Formoterol 160/4.5 6 GM 60 PUFF INH IH ×2 (08:22→20:47)
[2023-01-03] MEDS: Tiotropium Bromide-Respimat 10 PUFF INH IH (08:23)
--- NOTE | 2023-01-03 10:39 | PDOC.CMIN ---
Date of service: 01/03/23 Time of Service: 10:40 Care Management Initial Assmt Initial Assessment REASON FOR HOSPITALIZATION:: COPD Exacerbation PREVIOUS FUNCTIONAL STATUS/SOCIAL/FAMILY SUPPORTS:: Resides in [facility] CURRENT FUNCTIONAL STATUS:: Up independently. ADVANCE DIRECTIVES:: None, no one listed on HIPAA Has patient been provided with info about the portal/API?: Yes Did the patient sign up for the portal?: Yes CODE STATUS:: Full Code INSURANCE COVERAGE / FINANCIAL ISSUES:: [employer] CURRENT HOME/COMMUNITY SERVICES/EQUIPMENT:: None PRIMARY CARE PHYSICIAN:: Not listed POTENTIAL DISCHARGE NEEDS:: Determine PCP attachment PATIENT/FAMILY EDUCATION NEEDS:: Review discharge instructions, discuss Ask Me Three. ANTICIPATED BARRIERS TO DISCHARGE:: None TRANSPORTATION:: Via private vehicle with RCT or a friend. PLAN:: Anticipate Alexis will return home when hypoxia improves with transition back to oral steroid/antibiotics, per MD. CM continues to follow. PFSH All Active Problems (Updated 01/02/23 @ 08:26 by Buddy Cox) Non-small cell lung cancer metastatic to bone (Acute) Anemia (Chronic) Discharge planning issues (Acute) DVT prophylaxis (Acute) Left lower lobe pneumonia (Acute) Acute respiratory failure with hypoxia and hypercarbia (Acute) COPD with acute exacerbation (Acute) Back pain, thoracic (Acute) COPD (chronic obstructive pulmonary disease) (Chronic) Tobacco dependence (Acute) Medical History (Updated 01/02/23 @ 08:26 by Buddy Cox) History of diverticulitis Thrombocytosis GERD (gastroesophageal reflux disease) Right rotator cuff tendonitis Elevated blood pressure reading Surgical History S/P reconstruction of ligament of knee Family History Mother Breast cancer Other Cancer Social History Smoking/Tobacco Use Status: Current every day Tobacco Type: cigarettes Smoking risk assessment performed?: Yes Alcohol Intake: current Alcohol Intake frequency: holidays/special occasions only Substance use type: marijuana Housing: apartment Current gender identity: male Additional Social history: lives with sister in apartment in [facility]. Born in [place], lived in [place] x 30 years. 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 Remote 4 year incarceration.
[2023-01-03] MEDS: DOXYCYCLINE 100 MG in Normal Saline 100 ML IVPB ×2 (11:12→23:00)
--- NOTE | 2023-01-03 14:01 | CHAPLAIN ---
Alexis was resting in bed when I visited. 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 Alexis is not connect to [facility] or [facility] (the [facility] centers in [place]) but said he has been studying Eastern religions for many years. He's dealing with stage 4 cancer and was admitted with a COPD exacerbation. His family is together for the first time in 10 years for Cy, and he ended up in the hospital, he said. His sister recently moved from [place], [place] to live with Alexis in his two-bedroom apartment on [address]. Alexis asked for an apple or orange or some kind of fresh fruit and when I check in the cafeteria all they had were pears, and he Alexis can't eat pears.
[2023-01-03] MEDS: Normal Saline Flush 10 ML SYR (16:25)
--- NOTE | 2023-01-03 16:44 | W.PM.PROGNOT ---
Date of Service Date of service: 01/03/23 Time of Service: 16:44 Assessment and Plan Assessment and plan (1) COPD with acute exacerbation: Status: Acute Assessment and plan: Continue IV Solu-Medrol along with parenteral antibiotics as well as LABA and LAMA and ICS. (2) Acute respiratory failure with hypoxia and hypercarbia: Status: Acute Assessment and plan: Improving continues to need supplemental oxygen. Down to 3 L/min per nasal cannula with SPO2 in the mid 90s. He should continue to be weaned as long as his SPO2 is greater than 88%. (3) Left lower lobe pneumonia: Status: Acute Assessment and plan: Continue Mucinex along with parenteral antibiotics including Unasyn and doxycycline, encourage use of incentive spirometer and Vibra-pep device Qualifiers: Pneumonia type: due to unspecified organism Qualified Code(s): J18.9 - Pneumonia, unspecified organism (4) Non-small cell lung cancer metastatic to bone: Status: Acute (5) Anemia: Status: Chronic Assessment and plan: Chronic mild anemia and thrombocytosis, likely related to his cancer. Stable. Qualifiers: Anemia type: other cause Other causes of anemia: antineoplastic chemotherapy Qualified Code(s): D64.81 - Anemia due to antineoplastic chemotherapy; T45.1X5A - Adverse effect of antineoplastic and immunosuppressive drugs, initial encounter (6) Tobacco dependence: Status: Acute Assessment and plan: He has cut down, trying to quit. Declines NRT for now but ordered PRN. (7) DVT prophylaxis: Status: Acute Assessment and plan: LMWH (8) Discharge planning issues: Status: Acute Assessment and plan: Home when hypoxia improves with transition back to oral steroid/antibiotics Subjective Subjective Interval history since last seen: Pierce is feeling better today. He still has a moist cough that is productive of some thick white to yellowish mucus. He did produce a sputum culture which is just showing normal oral shanel. He remains afebrile. He still has diffuse expiratory wheezes but is now able to talk in complete paragraphs without getting dyspneic and able to get in and out of bed without severe dyspnea. He is hoping to return home in the next day or 2. I told him we would get a ambulatory pulse oximetry test in the morning to see if he needs home oxygen). He will need to complete 5 to 7 days of antibiotic therapy for pneumonia and get a follow-up chest x-ray as an outpatient. He is currently on Unasyn and doxycycline which we can switch over to oral Augmentin and oral doxycycline upon discharge and send him home on a prednisone taper. Exam Narrative Exam Narrative: Thin white male who is alert and oriented person place and time circumstance in no acute respiratory distress able to talk in complete sentences. Lungs diffuse scattered expiratory wheezing bilaterally Heart is regular to slightly tachycardic without murmur rub or gallop Abdomen soft and nontender Extremities without peripheral cyanosis or edema. Objective Last Vital Signs Temp 36.9 C 01/03/23 07:09 Pulse 108 H 01/03/23 08:27 Resp 18 01/03/23 08:27 BP 148/95 H 01/03/23 07:09 Pulse Ox 96 01/03/23 08:27 Laboratory Results - last 24 hr 01/03/23 06:45 WBC 7.51 RBC 3.31 L Hgb 10.3 L Hct 30.5 L MCV 92 MCH 31.1 MCHC 33.8 RDW 18.0 H Plt Count 425 H MPV 9.1 Immature Gran % 0.4 Neutrophils % 96.0 Lymphocytes % 3.3 Monocytes % 0.3 Eosinophils % 0.0 Basophils % 0.0 Nucleated RBC % 0.0 Absolute Neutrophils 7.21 H Absolute Lymphocytes 0.25 L Absolute Monocytes 0.02 L Absolute Eosinophils 0.00 Absolute Basophils 0.00 VBG pH 7.42 H VBG pCO2 50 VBG pO2 39 VBG HCO3 32 H VBG Total CO2 30 H VBG O2 Saturation 70 VBG Base Excess 7 H Sodium 135 L Potassium 4.3 Chloride 98 Carbon Dioxide 32.8 H Anion Gap 4.2 BUN 12 Creatinine 0.9 Est GFR (CKD-EPI 2020) 103.40 Glucose 169 H Calcium 9.8 C-Reactive Protein 5.34 H Procalcitonin < 0.1 Time Spent with Patient Time Spent with Patient: 25-34 minutes Time was spent: preparing to see the patient(eg.review tests), ordering medications,tests, procedures, referring, communicating with other health care management specialist, indepentently interpreting results, counseling the patient and care coordination
[2023-01-03] MEDS: Acetaminophen 325 MG TAB PO (16:58)
[2023-01-03] MEDS: Ibuprofen 800 MG TAB PO (17:03)
[2023-01-03 19:07] LABS: Legionella Ag Detection Urine Negative (Negative)
[2023-01-04] VITALS (7 sets, daily range): BP systolic 131–137; BP diastolic 83–87; PULSE 85–117; RESP 3–18; TEMP 36.5; O2SAT 92–99
[2023-01-04] MEDS: AMPICILLIN/SULBACTAM 3 GM in Normal Saline 100 ML IVPB ×2 (01:46→07:55)
[2023-01-04] MEDS: Dronabinol 2.5 MG CAP 10 MG PO (06:44)
[2023-01-04] MEDS: HYDROmorphone 4 MG TAB PO ×2 (06:44→14:16)
[2023-01-04 07:06] LABS: C-Reactive Protein 1.52 mg/dL (0.0-0.3)
[2023-01-04] MEDS: Albuterol/Ipratropium 3 ML UPD VIAL UPD ×2 (07:46→13:50)
[2023-01-04] MEDS: Tiotropium Bromide-Respimat 10 PUFF INH IH (07:47)
[2023-01-04] MEDS: Budesonide/Formoterol 160/4.5 6 GM 60 PUFF INH IH (07:47)
[2023-01-04] MEDS: Omeprazole 20 MG CAPCR 40 MG PO (07:55)
[2023-01-04] MEDS: Enoxaparin 40 MG/0.4 ML SYR SC (07:55)
[2023-01-04] MEDS: guaiFENesin 600 MG TABCR PO (07:55)
[2023-01-04] MEDS: methylPREDNISolone SUCC 125 MG VIAL 80 MG IVP (07:55)
[2023-01-04] MEDS: Pregabalin 50 MG CAP PO (07:56)
[2023-01-04] MEDS: Acetaminophen 325 MG TAB PO (07:56)
[2023-01-04] MEDS: Benzocaine/Menthol LOZG 15/BOX 1 EACH SUC (08:49)
[2023-01-04] MEDS: DOXYCYCLINE 100 MG in Normal Saline 100 ML IVPB (09:08)
--- NOTE | 2023-01-04 14:23 | W.PM.DS.N ---
Date of service: 01/04/23 Time of Service: 14:23 DS: Diagnosis Discharge Diagnosis (1) COPD with acute exacerbation: Status: Acute (2) Acute respiratory failure with hypoxia and hypercarbia: Status: Acute (3) Left lower lobe pneumonia: Status: Acute (4) Non-small cell lung cancer metastatic to bone: Status: Acute (5) Anemia: Status: Chronic (6) Tobacco dependence: Status: Acute Discharge Plan Disposition Patient Disposition: Home Condition: Improving Discharge Details Reason For Visit: COPD Exacerbation Admit Date/Time: 01/02/23 06:03 Admit Provider: Buddy Cox Attending Provider: Buddy Cox Primary Care Provider: Unknown,Unknown Hospital Course Hospital Course: 52 yo M with stage 4 non-small cell lung cancer, tobacco smoking, COPD who presented with acute onset shortness of breath that developed over the past week. Associated w/ productive cough. See admission H&P for details of presenting symptoms and finding. He was found to have LLL pneumonia and hypoxemia and hypercarbia. He was started on DuoNeb treatments, oxygen and Solumedrol and begun on antibiotics, Unasyn and doxycycline. He was admited to the hospital for respiratory treatments, oxygen and parenteral antibiotics and steroids. He did well and was weaned from his oxygen and passed his exercise pulse oximetry test. He was discharged home on no oxygen and given an Rx for 5 more days of Augmentin and doxycycline and a steroid taper. Home Meds and New Rx's Prescriptions: New amoxicillin-pot clavulanate [Augmentin] 500-125 mg tablet 1 tab PO TID Qty: 15 0RF doxycycline hyclate 100 mg tablet,delayed release (DR/EC) 100 mg PO BID 5 Days Qty: 10 0RF prednisone 10 mg tablet See Rx Instructions .ROUTE .COMPLEX Qty: 48 0RF Rx Instructions: 10 mg orally ;see taper instructions: 40 mg/d x 7d, 30 mg/d x 3d, 20 mg/d x 3d, 10 mg/d x 3d, 5 mg/d x 3d Continued omeprazole 40 mg capsule,delayed release(DR/EC) 40 mg PO DAILY tiotropium bromide [Spiriva with HandiHaler] 18 mcg capsule, w/inhalation device 1 cap inhalation DAILY Rx Instructions: puncture 1 cap using device; one dose = 2 inhalations fluticasone propion-salmeterol [Advair Diskus] 250-50 mcg/dose blister with device 1 inh inhalation BID morphine 100 mg capsule,extend.release pellets 100 mg PO TID hydromorphone [Dilaudid] 2 mg tablet 4 mg PO TID pregabalin [Lyrica] 50 mg capsule 50 mg PO BID dronabinol 10 mg capsule 10 mg PO BID Rx Instructions: administer before lunch and evening meal/dinner Changed albuterol sulfate 90 mcg/actuation aerosol powdr breath activated 2 inh inhalation Q4H PRNQty: 1 0RF Discharge Instructions Instructions: Doxycycline (By mouth), Prednisone (By mouth), Amoxicillin/Clavulanate Potassium (By mouth), Bacterial Pneumonia (DC) Additional Instructions: You have been treated for acute exacerbation of your COPD complicated by pneumonia. You should finish out the antibiotics prescribed (another 5 days of oral antibioitics) along w/ a steroid taper. Follow up with your cancer doctor next week. Call your community service patrol officer next week to set follow up in the next 2 to 3 weeks. Return if you have worsening shortness of breath, fever, chills or chest pains. Stand Alone Forms: Nursing Discharge Form Referrals: Nikki Hermosillo [ NON-[facility] STAFF PHYSICIAN] - (Please call on Friday to make a follow up appointment for 1-2 weeks.) Activity:: Activity as Tolerated Equipment/Supplies:: No Equipment Needed Diet:: Normal Diet Discharge Orders Discharge Orders: Discharge Order (Routine); Ordered 01/04/23 Ordered By: Basil Morales Other Ambulatory Orders: XR chest 2V PA & lateral (Routine) Timeframe: 1 Week Facility: [facility] - Location: DIAGNOSTIC IMAGING Ordered By: Basil Morales Discharge Data Discharge Date/Time-TO BE ENTERED AT DEPARTURE: 01/04/23 15:15 DS: Summary Time Spent with Patient providing and/or coordinating discharge services: Less than 30 minutes Specific discharge activities: Interview/exam of patient; review of discharge instructions, completion of prescriptions/discharge instructions; discussion w/ nursing and CM; documentation of hospital visit Status at Discharge Functional status at discharge: independent ambulation Overall status at discharge: patient is back to baseline Mental Status: mental status grossly normal Speech and Movement: speech and movement normal Mood: congruent mood Affect: normal affect Exam Narrative Exam Narrative: Aelxis is eager to leave the hospital. He is now on room air w/ oxygen saturations of 95 to 98%. His exercise test he walked 100 ft w/ lowest SPO2 of 92% Patient is able to carry on prolonged conversation w/out dyspnea Neck: no JVD, no accessory respiratory muscle use Lungs: still diffuse expiratory wheezing but improved air flow Heart: RRR Abdomen: soft, nondistended, nontender Extremities: no cyanosis or edema Psych Mental Status: mental status grossly normal Speech and Movement: speech and movement normal Mood: congruent mood Affect: normal affect DS: Data Vitals/I&O Vitals and I&O: Vital Signs Temperature 36.5 C 01/04/23 08:26 Temperature Source Tympanic 01/04/23 08:26 Pulse 98 H 01/04/23 13:50 Pulse Rhythm Regular 01/04/23 10:51 Respiratory Rate 18 01/04/23 08:26 Respiratory Effort Normal 01/04/23 10:51 Respiratory Depth Normal 01/04/23 10:51 Respiratory Pattern Normal 01/04/23 10:51 Blood Pressure 131/87 01/04/23 08:26 Blood Pressure Mean 95 01/02/23 07:07 Blood Pressure Position Sitting 01/02/23 01:46 Pulse Oximetry 95 01/04/23 13:50 Oxygen Delivery Method Room Air 01/04/23 13:50 Oxygen Flow Rate 0 01/04/23 13:50 Pain Level 2 01/04/23 10:51 Comment RN Notified 01/03/23 21:22 Intake & Output 01/03/23 01/04/23 01/04/23 23:59 11:59 23:59 Intake Total 503.333 / 1043.333 650 / 650 Balance 503.333 / 1043.333 650 / 650 Intake: IV 253.333 / 553.333 400 / 400 Oral 250 / 490 250 / 250 Other: Urine Color Yellow Urine Appearance Clear Clear Voiding Methods Toilet Data Completed and Pending Labs on day of discharge: Labs from last 24 hours 01/04/23 06:34 C-Reactive Protein 1.52 H Preliminary micro results at discharge 01/02/23 14:18 Sputum Culture - Preliminary Sputum Normal Jing PFSH All Active Problems Non-small cell lung cancer metastatic to bone (Acute) Anemia (Chronic) Discharge planning issues (Acute) DVT prophylaxis (Acute) Left lower lobe pneumonia (Acute) Acute respiratory failure with hypoxia and hypercarbia (Acute) COPD with acute exacerbation (Acute) Back pain, thoracic (Acute) COPD (chronic obstructive pulmonary disease) (Chronic) Tobacco dependence (Acute) Medical History History of diverticulitis Thrombocytosis GERD (gastroesophageal reflux disease) Right rotator cuff tendonitis Elevated blood pressure reading Surgical History S/P reconstruction of ligament of knee Family History Mother Breast cancer Other Cancer Social History Smoking/Tobacco Use Status: Current every day Tobacco Type: cigarettes Smoking risk assessment performed?: Yes Alcohol Intake: current Alcohol Intake frequency: holidays/special occasions only Substance use type: marijuana Housing: apartment Current gender identity: male Additional Social history: lives with sister in apartment in [place]. Born in [place], lived in [place] x 30 years. 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 Remote 4 year incarceration. Time Spent with Patient Time Spent with Patient: <45 minutes Time was spent: preparing to see the patient(eg.review tests), ordering medications,tests, procedures, referring, communicating with other health care connector, indepentently interpreting results, counseling the patient and care coordination
--- NOTE | 2023-01-04 15:27 | PDOC.CMDIS ---
Date of service: 01/04/23 Time of Service: 15:27 LACE Index Scoring Tool Questions: Length of Stay (in days): 2 Was the patient admitted via the E.D.?: Yes Comorbidities: Chronic Pulmonary Disease and Metastatic Solid Tumor E.D. Visits: 0 Answers: Total Score: 10 Risk of Readmission: High Risk Care Management Discharge Plan Reason for Hospitalization: COPD Exacerbation Discharge Plan: Alexis will return home with no new services. He will be driven home via private vehicle. He will follow up with his PCP and discharge plan of care. Patient/Family Education Needs: Review discharge instructions and limitations, discussion of self care needs including ask me three.
[2023-01-05 17:01] LABS: Streptococcus Pneumoniae Ag, U Negative (Negative)
[2023-01-06 14:55] LABS: Mycoplasma Pneumoniae PCR Negative (Negative); Specimen source sputum
== END 2023-01-04 15:15 | disposition home or self-care (01) ==
LOC: ER 06:29 → MS 07:40
PROVIDERS: Internal Medicine; Admitting Provider Family Medicine; Emergency Provider Emergency Medicine; Visit Provider Family Medicine
DX: J44.1 Chronic obstructive pulmonary disease with (acute) exacerbation (principal); J96.01 Acute respiratory failure with hypoxia; J96.02 Acute respiratory failure with hypercapnia; J44.0 Chronic obstructive pulmonary disease with (acute) lower respiratory infection; J18.9 Pneumonia, unspecified organism; F17.210 Nicotine dependence, cigarettes, uncomplicated; C34.90 Malignant neoplasm of unspecified part of unspecified bronchus or lung; D84.821 Immunodeficiency due to drugs; Z79.60 Long term (current) use of unspecified immunomodulators and immunosuppressants; D64.9 Anemia, unspecified; M54.6 Pain in thoracic spine; K21.9 Gastro-esophageal reflux disease without esophagitis; D75.839 Thrombocytosis, unspecified; C79.51 Secondary malignant neoplasm of bone
CPT/HCPCS: 00123; 36415; 80048; 82805; 84145; 87449; 87637; 93005; 94618; 94640; 96360; 96361; 96365; 96366; 96372; 96375; 99291; J1650; 71045; 85025; 86140; 87070; 87205; 87581; 87899; 93010; 94664; 94667; 94760; 99232; 99238; G0378; J0295; J2930; J7613; J7620

== ENCOUNTER → 2023-01-10 00:29 | Outpatient (CLI) | payer MEDICAID, SELFPAY ==
--- NOTE | 2023-01-10 08:00 | DI.RAD_ITS ---
Exam(s) XR CHEST 2V PA LATERAL EXAM: XR CHEST 2V PA LATERAL CLINICAL HISTORY: follow up pneumonia,H/O LUNG CA,J18.9,C34.90 TECHNIQUE: 2D digital imaging was performed of the chest. Images were obtained. PA and lateral v iews were obtained. COMPARISON: CR,XR XR PORTABLE CHEST AP from 01/02/2023 FINDINGS: MEDIASTINUM: Normal. HEART: Normal. PULMONARY VASCULATURE: Normal. LUNGS: Marked emphysematous changes are present in the lungs. The infiltrates have resolved. No foc al consolidating infiltrates are seen. There is again seen scarring in the right perihilar region. PLEURAL SPACE: No pleural effusion or pneumothorax. BONE:Within normal limits for the patient's age. OTHER FINDINGS:Normal. IMPRESSION: No acute pulmonary findings. DATA REPOSITORY: RADIATION DOSE DELIVERED:
== END ==
PROVIDERS: Visit Provider Internal Medicine
DX: J18.9 Pneumonia, unspecified organism
CPT/HCPCS: 71046

== ENCOUNTER 2023-02-12 04:49 | Outpatient (CLI) | payer MEDICAID, SELFPAY ==
[2023-02-12 09:47] LABS: Abs Immature Grans 0.04 10^3/uL (0.0-0.06); Absolute Basophil Count 0.13 10^3/uL (0.0-0.2); Absolute Eosinophil Count 0.31 10^3/uL (0.0-0.7); Absolute Lymphocyte Count 1.82 10^3/uL (1.2-3.4); Absolute Monocyte Count 1.14 10^3/uL (0.1-0.8); Absolute Neutrophil Count 6.07 10^3/uL (1.2-6.7); Basophils % 1.4; Eosinophils % 3.3; HCT 42.3 % (40.0-50.0); HGB 13.8 g/dL (13.5-17.5); Immature Grans % 0.4; Lymphocytes % 19.1; MCH 31.7 pg (27.0-33.0); MCHC 32.6 % (32.0-36.0); MCV 97 fL (80-95); MPV 9.2 fL (8.0-11.0); Neutrophils % 63.8; Platelet Count 495 10^3/uL (130-400); RBC 4.36 10^6/uL (4.36-5.78); RDW 13.4 % (11.8-14.1); RDW-SD 48.1 fL; WBC 9.51 10^3/uL (4.4-10.8)
[2023-02-12 10:16] LABS: ALT 15 U/L (16-63); AST 14 U/L (15-37); Alkaline Phosphatase 78 U/L (46-116); Anion Gap 8.2 mmol/L (3-11); BUN 5 mg/dL (7-18); Bilirubin, Total 0.3 mg/dL (0.2-1.0); CO2 28.8 mmol/L (21.0-32.0); CREATININE 0.9 mg/dL (0.70-1.30); Calcium 9.7 mg/dL (8.5-10.1); Chloride 100 mmol/L (98-107); FREE T4 1.13 ng/dL (0.76-1.46); Glucose 96 mg/dL (74-106); Magnesium 1.7 mg/dL (1.8-2.4); Potassium 3.7 mmol/L (3.5-5.1); Sodium 137 mmol/L (136-145); TSH 2.44 uIU/mL (0.36-3.74); Total Protein 8.3 g/dL (6.4-8.2)
== END 2023-02-12 04:50 | disposition home or self-care (01) ==
PROVIDERS: Visit Provider Nurse Practitioner
DX: C79.51 Secondary malignant neoplasm of bone (principal); C34.31 Malignant neoplasm of lower lobe, right bronchus or lung; Z79.899 Other long term (current) drug therapy
CPT/HCPCS: 36415; 80053; 83735; 84439; 84443; 85025

== ENCOUNTER → 2023-03-03 03:14 | Outpatient (CLI) | payer MEDICAID, SELFPAY ==
--- NOTE | 2023-03-03 | DI.CT_ITS ---
Exam(s) CT CHEST W EXAM: CT CHEST W CLINICAL HISTORY: LUNG CANCER C34.31 METASTATIC ASSESS TREATMENT RESPONSE TECHNIQUE: Imaging Protocol: Axial computed tomography images with coronal and sagittal reformatted images were created and reviewed CONTRAST MATERIAL: Intravenous: Omnipaque 350 Contrast volume:70 ml. COMPARISON: CT CT CHEST W from 12/23/2022 FINDINGS: Pulmonary parenchyma: Severe emphysematous changes, with large bulla in the upper lobes. Stable appe arance of thick-walled cavity posterior right upper lobe. No fluid currently. Improvement previousl y noted lateral right upper lobe densities. Persistent nodule measuring 18 millimeters. Stable scar ring and bronchiectasis right lower lobe. stable area of increased density right lower lobe. Tracheobronchial tree: No mucous plugging. Right lower lobe bronchiectasis. Mediastinum and Anamika: Stable enlarged lymph nodes in the right superior mediastinum. Stable mild rig ht hilar adenopathy. Pleura: No effusion. No pneumothorax. Heart: The heart is not dilated. [id number] coronary artery calcifications are seen. Aorta: Thoracic aorta non-dilated. Mild atherosclerotic changes. Upper abdomen: No acute findings.. Bones: Degenerative changes in the spine. Stable compression fractures. No destructive bony lesio ns identified. Postoperative changes of right ribs. Soft tissues: Unremarkable. IMPRESSION: Improvement of previously noted densities in the lateral right upper lobe. Persistent right lateral upper lobe density measuring 18 millimeters. Stable appearance of areas of scarring and increased de nsity in the right lower lobe. Stable adenopathy of the superior right mediastinum and right hilum. No new sites of metastatic disease. RADIATION DOSE DELIVERED: 402.56mGy.cm Total DLP DATA REPOSITORY: All CT scans at this facility are submitted to the National Radiology Data Registry (NRDR) Dose Index Registry (DIR) with the [employer] (A[employer]). RADIATION OPTIMIZATION: All CT scans at this facility use at least one of these dose optimization te chniques: automated exposure control; mA and/or kV adjustment per patient size (includes targeted exa ms where dose is matched to clinical indication); or iterative reconstruction.
[2023-03-03] MEDS: Normal Saline Flush 10 ML SYR IVP (09:31)
[2023-03-03] MEDS: Normal Saline - Diluent 50 ML VIAL IJ (09:33)
[2023-03-03] MEDS: Omnipaque 350 MG/ML 100 ML BTL IJ (09:34)
== END ==
PROVIDERS: Visit Provider Nurse Practitioner Family
DX: C34.31 Malignant neoplasm of lower lobe, right bronchus or lung (principal)
CPT/HCPCS: 71260; J3490

== ENCOUNTER 2023-03-10 03:17 | Outpatient (CLI) | payer MEDICAID, SELFPAY ==
[2023-03-10 09:27] LABS: Abs Immature Grans 0.02 10^3/uL (0.0-0.06); Absolute Basophil Count 0.17 10^3/uL (0.0-0.2); Absolute Eosinophil Count 0.67 10^3/uL (0.0-0.7); Absolute Lymphocyte Count 1.53 10^3/uL (1.2-3.4); Absolute Monocyte Count 0.79 10^3/uL (0.1-0.8); Absolute Neutrophil Count 3.97 10^3/uL (1.2-6.7); Basophils % 2.4; Eosinophils % 9.4; HCT 45.6 % (40.0-50.0); HGB 15.1 g/dL (13.5-17.5); Immature Grans % 0.3; Lymphocytes % 21.4; MCHC 33.1 % (32.0-36.0); MCV 94 fL (80-95); MPV 9.5 fL (8.0-11.0); Neutrophils % 55.5; Platelet Count 440 10^3/uL (130-400); RBC 4.87 10^6/uL (4.36-5.78); WBC 7.15 10^3/uL (4.4-10.8)
[2023-03-10 09:59] LABS: ALT 14 U/L (16-63); AST 15 U/L (15-37); Albumin 4.1 g/dL (3.4-5.0); Alkaline Phosphatase 67 U/L (46-116); Anion Gap 8.1 mmol/L (3-11); BUN 7 mg/dL (7-18); Bilirubin, Total 0.4 mg/dL (0.2-1.0); CO2 31.9 mmol/L (21.0-32.0); Calcium 9.7 mg/dL (8.5-10.1); Chloride 98 mmol/L (98-107); Estimated GFR 91.12 (mL/min/1.73m2); FREE T4 1.09 ng/dL (0.76-1.46); Glucose 92 mg/dL (74-106); Potassium 3.5 mmol/L (3.5-5.1); Sodium 138 mmol/L (136-145); Total Protein 8.4 g/dL (6.4-8.2)
== END 2023-03-10 03:18 | disposition home or self-care (01) ==
PROVIDERS: Internal Medicine Medical Oncology; Visit Provider Nurse Practitioner
DX: C34.31 Malignant neoplasm of lower lobe, right bronchus or lung (principal); C79.51 Secondary malignant neoplasm of bone; Z79.899 Other long term (current) drug therapy
CPT/HCPCS: 36415; 80053; 83735; 84439; 84443; 85025

== ENCOUNTER 2023-03-31 05:02 | Outpatient (CLI) | payer MEDICAID, SELFPAY ==
[2023-03-31 12:16] LABS: Abs Immature Grans 0.03 10^3/uL (0.0-0.06); Absolute Basophil Count 0.12 10^3/uL (0.0-0.2); Absolute Eosinophil Count 0.51 10^3/uL (0.0-0.7); Absolute Lymphocyte Count 1.97 10^3/uL (1.2-3.4); Absolute Monocyte Count 1.04 10^3/uL (0.1-0.8); Absolute Neutrophil Count 4.44 10^3/uL (1.2-6.7); Basophils % 1.5; Eosinophils % 6.3; HCT 43.7 % (40.0-50.0); HGB 14.4 g/dL (13.5-17.5); Immature Grans % 0.4; Lymphocytes % 24.3; MCH 30.6 pg (27.0-33.0); MCV 93 fL (80-95); MPV 8.8 fL (8.0-11.0); Monocytes % 12.8; Neutrophils % 54.7; Platelet Count 565 10^3/uL (130-400); RBC 4.71 10^6/uL (4.36-5.78); RDW 12.2 % (11.8-14.1); RDW-SD 42.1 fL; WBC 8.11 10^3/uL (4.4-10.8)
[2023-03-31 12:44] LABS: ALT 15 U/L (16-63); AST 12 U/L (15-37); Albumin 4.1 g/dL (3.4-5.0); Alkaline Phosphatase 87 U/L (46-116); Anion Gap 10.5 mmol/L (3-11); BUN 7 mg/dL (7-18); Bilirubin, Total 0.2 mg/dL (0.2-1.0); CO2 28.5 mmol/L (21.0-32.0); CREATININE 1.1 mg/dL (0.70-1.30); Calcium 9.8 mg/dL (8.5-10.1); Chloride 99 mmol/L (98-107); Estimated GFR 81.28 (mL/min/1.73m2); FREE T4 1.05 ng/dL (0.76-1.46); Glucose 89 mg/dL (74-106); Magnesium 2.2 mg/dL (1.8-2.4); Potassium 4.4 mmol/L (3.5-5.1); Sodium 138 mmol/L (136-145); TSH 1.22 uIU/mL (0.36-3.74); Total Protein 8.8 g/dL (6.4-8.2)
== END 2023-03-31 05:03 | disposition home or self-care (01) ==
PROVIDERS: Visit Provider Nurse Practitioner
DX: C79.51 Secondary malignant neoplasm of bone (principal); C34.31 Malignant neoplasm of lower lobe, right bronchus or lung; Z79.899 Other long term (current) drug therapy
CPT/HCPCS: 36415; 80053; 83735; 84439; 84443; 85025

== ENCOUNTER 2023-04-17 02:50 | Inpatient (IN) | payer MEDICAID, SELFPAY ==
[2023-04-17] VITALS (149 sets, daily range): BP systolic 71–158; BP diastolic 47–117; PULSE 67–163; RESP 2–42; TEMP 36.1–37.1; O2SAT 91–99
--- NOTE | 2023-04-17 02:45 | RT.EKG_ITS ---
APPROVED REPORT Exam: Resting ECG Reason for Exam: sob Patient Location: E HR:144 bpm ECG Measurements Heart Rate 144 AXIS [place] 141 P 76 QRSd 74 QRS 11 QT 271 T 109 QTc 420 Conclusion Sinus tachycardia. 144 normal axis no stemi
--- NOTE | 2023-04-17 02:45 | DI.RAD_ITS ---
Exam(s) XR PORTABLE CHEST AP EXAM: XR PORTABLE CHEST AP CLINICAL HISTORY: sob. TECHNIQUE: 2D digital imaging was performed. COMPARISON: No exams were available for comparison FINDINGS: Single AP portable view. Heart size is upper normal. The mediastinum is not widened. Advanced bullous disease again noted bilaterally, without evidence of obvious pneumothorax. No new l eft-sided infiltrates. Increased markings in the right suprahilar region, slightly more so than prev ious. This may indicate infiltrate in the right upper lobe region. No pleural effusions on either s marylou. IMPRESSION: Severe bullous disease, again noted be more prominent on the right side.There appears to be some infi ltrate in the right upper lobe region, more so than previous. DATA REPOSITORY: RADIATION DOSE DELIVERED:
[2023-04-17] MEDS: methylPREDNISolone SUCC 125 MG VIAL IVP (02:58)
[2023-04-17] MEDS: MAGNESIUM SULFATE 2 GM/50 ML BAG IVPB (02:59)
[2023-04-17] MEDS: Albuterol 2.5 MG/3 ML INH SOLN VIAL (03:00)
[2023-04-17 03:05] LABS: Abs Immature Grans 0.14 10^3/uL (0.0-0.06); BE (Venous) -8 mmol/L (-2-3); HCO3 (Venous) 22 mmol/L (23-28); HCT 43.8 % (40.0-50.0); HGB 13.8 g/dL (13.5-17.5); MCH 29.6 pg (27.0-33.0); MCHC 31.5 % (32.0-36.0); MCV 94 fL (80-95); MPV 9.3 fL (8.0-11.0); O2 Sat (Venous) 65 %; Platelet Count 582 10^3/uL (130-400); RBC 4.66 10^6/uL (4.36-5.78); RDW 12.2 % (11.8-14.1); TCO2 (Venous) 21 mmol/L (24-29); WBC 10.49 10^3/uL (4.4-10.8); pO2 (Venous) 47 mmHg
--- NOTE | 2023-04-17 03:09 | ED.GENADUL_ITS ---
Discharge Plan Disposition Patient Disposition: Admit to [facility] Condition: Serious Discharge Details Chief Complaint: SOB/SuddenOnset Clinical Impression: Non-small cell lung cancer metastatic to bone, Tobacco dependence, Acute hypercapnic respiratory failure, COPD (chronic obstructive pulmonary disease) Primary Care Provider: Unknown,Unknown ED Provider: Pedro Oakley Home Meds and New Rx's Prescriptions: No Action omeprazole 40 mg capsule,delayed release(DR/EC) 40 mg PO DAILY tiotropium bromide [Spiriva with HandiHaler] 18 mcg capsule, w/inhalation device 1 cap inhalation DAILY Rx Instructions: puncture 1 cap using device; one dose = 2 inhalations fluticasone propion-salmeterol [Advair Diskus] 250-50 mcg/dose blister with device 1 inh inhalation BID morphine 100 mg capsule,extend.release pellets 100 mg PO TID hydromorphone [Dilaudid] 2 mg tablet 4 mg PO TID pregabalin [Lyrica] 50 mg capsule 50 mg PO BID dronabinol 10 mg capsule 10 mg PO BID Rx Instructions: administer before lunch and evening meal/dinner amoxicillin-pot clavulanate [Augmentin] 500-125 mg tablet 1 tab PO TID Qty: 15 0RF prednisone 10 mg tablet See Rx Instructions .ROUTE .COMPLEX Qty: 48 0RF Rx Instructions: 10 mg orally ;see taper instructions: 40 mg/d x 7d, 30 mg/d x 3d, 20 mg/d x 3d, 10 mg/d x 3d, 5 mg/d x 3d albuterol sulfate 90 mcg/actuation aerosol powdr breath activated 2 inh inhalation Q4H PRNQty: 1 0RF HPI General Date/Time Provider Initiated Documentation: 04/17/23 02:52 . Limitations to Documentation: physical limitation . Information obtained by: patient, EMS and old records reviewed . HPI Narrative: 52-year-old gentleman with past medical history of stage IV non-small cell lung cancer, on chemotherapy, tobacco abuse, COPD presents for evaluation of sh ortness of breath. He reports he was woken from sleep feeling very short of breath. Symptoms are severe, constant. EMS gave 2 nebs and route. Related Data Home Medications Medication Instructions Recorded Confirmed fluticasone 250 mcg-salmeterol 50 1 inh inhalation BID 03/22/21 01/02/23 mcg/dose blistr powdr for inhalation (Advair Diskus) omeprazole 40 mg capsule,delayed 40 mg PO DAILY 03/22/21 01/02/23 release tiotropium bromide 18 mcg capsule 1 cap inhalation DAILY 03/22/21 01/02/23 with inhalation device (Spiriva with HandiHaler) dronabinol 10 mg capsule 10 mg PO BID 01/02/23 01/02/23 hydromorphone 2 mg tablet 4 mg PO TID 01/02/23 01/02/23 (Dilaudid) morphine 100 mg capsule,extended 100 mg PO TID 01/02/23 01/02/23 release pellets pregabalin 50 mg capsule (Lyrica) 50 mg PO BID 01/02/23 01/02/23 albuterol sulfate 90 mcg/actuation 2 inh inhalation Q4H PRN #1 01/04/23 breath activated powder inhaler amoxicillin 500 mg-potassium 1 tab PO TID #15 tabs 01/04/23 clavulanate 125 mg tablet (Augmentin) prednisone 10 mg tablet See Rx Instructions .Route 01/04/23 .COMPLEX #48 tabs Previous Rx's Medication Instructions Recorded albuterol sulfate 90 mcg/actuation 2 inh inhalation Q4H PRN #1 01/04/23 breath activated powder inhaler amoxicillin 500 mg-potassium 1 tab PO TID #15 tabs 01/04/23 clavulanate 125 mg tablet (Augmentin) prednisone 10 mg tablet See Rx Instructions .Route 01/04/23 .COMPLEX #48 tabs Allergies Allergy/AdvReac Type Severity Reaction Status Date / Time amitriptyline AdvReac Intermediate Verified 01/02/23 01:58 General Stated Complaint: SOB/SuddenOnset STEPH: 2 Exam Narrative Exam Narrative: Review of Systems: All systems reviewed & are unremarkable except as noted in HPI and below Well-developed, ++ acute distress NCAT PERRL, normal conjunctiva Tachycardic Increased work of breathing, tripoding, accessory muscle use, diminished air movement bilaterally Nondistended abdomen Extremities w/o deformity, no cyanosis, no edema No rashes or lesions. no focal neurologic deficits Appropriate mood and affect Course Vital Signs Vital signs: Vital Signs Temperature 37.1 C 04/17/23 02:47 Pulse 160 H 04/17/23 02:47 Respiratory Rate 36 H 04/17/23 02:47 Blood Pressure 108/47 L 04/17/23 02:47 Pulse Oximetry 92 04/17/23 02:47 Temperature 37.1 C 04/17/23 02:47 Temperature Source Temporal Artery Scan 04/17/23 02:47 Pulse 160 H 04/17/23 02:47 Respiratory Rate 36 H 04/17/23 03:05 Respiratory Effort Short of Breath, Labored, Accessory Muscle Use, Incrsd Work of Breathing 04/17/23 03:05 Respiratory Depth Retractive 04/17/23 03:05 Respiratory Pattern Tachypnea 04/17/23 03:05 Blood Pressure 108/47 L 04/17/23 02:47 Blood Pressure Position Sitting 04/17/23 02:47 Pulse Oximetry 92 04/17/23 02:47 Medical Decision Making Emergent evaluation of acute respiratory distress. Patient has multiple comorbidities including metastatic cancer, tobacco abuse and COPD. I reviewed the record and confirmed with the patient, he does not want to be intubated. Given his increased work of breathing, respiratory therapy was paged on patient's arrival and patient was transitioned to BiPAP. His initial ABG and VBG are concerning for hypercarbia. Will continue bronchodilator, patient given magnesium and steroids. Will give morphine for air hunger. Also consider PE as a source of his respiratory distress. Patient will need to be stabilized prior to getting a PE study. Prior CT imaging has been negative for PE 0350 Patient is looking significantly better. States that he feels better. Looking more comfortable and respiratory rate has decreased. Lab work reviewed. No significant leukocytosis or leukopenia. Mild elevation in anion gap, likely from respiratory acidosis 0410 Repeat VBG looks significantly improved. Patient respiratory rate and heart rate have also improved will work with respiratory therapist to start to transition patient off BiPAP if he tolerates it. Will discuss with hospitalist for admission 0420 didn't tolerate coming off bipap. will admit to ICU here. Medical Records Medical records reviewed: Yes I reviewed the patient's medical records. Lab Data Lab results reviewed: Yes I reviewed the patient's lab results. Quality:SDOH Health Related Social Needs: No Data to Display Critical Care Time Critical Care Time Critical Care Time: Yes Total Critical Care Time: 36 Attestation: CRITICAL CARE Upon my evaluation, this patient had a high probability of imminent or life- threatening deterioration due to respiratory failure which required my direct attention, intervention, and personal management. I have personally provided 36 minutes of critical care time exclusive of time spent on separately billable procedures. Time includes review of laboratory data, radiology results, discussion with consultants, and monitoring for potential decompensation. Interventions were performed as documented above [facility] All Active Problems (Updated 04/17/23 @ 04:23 by Pedro Oakley MD) Acute hypercapnic respiratory failure (Acute) Non-small cell lung cancer metastatic to bone (Acute) Anemia (Chronic) Left lower lobe pneumonia (Acute) COPD with acute exacerbation (Acute) Back pain, thoracic (Acute) COPD (chronic obstructive pulmonary disease) (Chronic) Tobacco dependence (Acute) Medical History History of diverticulitis Thrombocytosis GERD (gastroesophageal reflux disease) Right rotator cuff tendonitis Elevated blood pressure reading Surgical History S/P reconstruction of ligament of knee Family History Mother Breast cancer Other Cancer Social History Smoking/Tobacco Use Status: Former Tobacco Use Smoking risk assessment performed?: Yes Alcohol Intake: current Alcohol Intake frequency: holidays/special occasions only Substance use type: marijuana Housing: apartment Current gender identity: male Additional Social history: lives with sister in apartment in [facility]. Born in [place], lived in [place] x 30 years. 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 Remote 4 year incarceration.
[2023-04-17 03:11] LABS: pH (Venous) 7.11 (7.31-7.41)
[2023-04-17 03:12] LABS: pCO2 (Venous) 69 mmHg (41-51)
[2023-04-17 03:16] LABS: BE -7 mmol/L (-2-3); HCO3 22 mmol/L (22-26); pO2 150 mmHg (80-105); sO2 98 % (95-98); tCO2 21 mmol/L (23-27)
[2023-04-17] MEDS: MORPHine 10 MG/ML VIAL 6 MG IVP (03:17)
[2023-04-17 03:18] LABS: FIO2 40 %; Site Left Radial; pCO2 63 mmHg (35-45); pH 7.14 (7.35-7.45)
[2023-04-17 03:26] LABS: Absolute Eosinophil Count 0.21 10^3/uL (0.0-0.7); Absolute Lymphocyte Count 4.41 10^3/uL (1.2-3.4); Absolute Monocyte Count 1.26 10^3/uL (0.1-0.8); Absolute Neutrophil Count 4.62 10^3/uL (1.2-6.7); Atypical Lymphocytes % 4; Diff Comment Manual Differential; RBC Morphology Normal
[2023-04-17 03:34] LABS: ALT 15 U/L (16-63); AST 15 U/L (15-37); Albumin 3.8 g/dL (3.4-5.0); Alkaline Phosphatase 84 U/L (46-116); BUN 6 mg/dL (7-18); Bilirubin, Total 0.3 mg/dL (0.2-1.0); CREATININE 1.3 mg/dL (0.70-1.30); Calcium 9.8 mg/dL (8.5-10.1); Chloride 100 mmol/L (98-107); Estimated GFR 66.51 (mL/min/1.73m2); Glucose 209 mg/dL (74-106); Potassium 4.8 mmol/L (3.5-5.1); Sodium 139 mmol/L (136-145); Total Protein 8.4 g/dL (6.4-8.2)
[2023-04-17] MEDS: Normal Saline 1,000 ML 1000 ML IV (03:48)
--- NOTE | 2023-04-17 03:57 | NUR.NOTE ---
Due to too much artifact and patient be so short of breath, Dr. Oakley asked that I wait to perform the EKG until after patient had his respiratory treatment.
[2023-04-17 03:59] LABS: BE (Venous) -3 mmol/L (-2-3); HCO3 (Venous) 23 mmol/L (23-28); O2 Sat (Venous) 91 %; TCO2 (Venous) 21 mmol/L (24-29); pCO2 (Venous) 49 mmHg (41-51); pH (Venous) 7.29 (7.31-7.41); pO2 (Venous) 67 mmHg
--- NOTE | 2023-04-17 04:25 | HPE_ITS ---
Date of service: 04/17/23 Time of Service: 04:25 Assessment and Plan Assessment and plan (1) Acute hypercapnic respiratory failure: Start date: 04/17/23 Status: Acute Assessment and plan: This is a 52-year-old gentleman with stage IV non-small cell cancer of the lung with metastases to the bone. He does have some discomfort over his neck but this appears to be positional. He is in respiratory distress on BiPAP clearing his hypercapnic acute respiratory failure. He is a DNR/DNI. Will continue BiPAP with aggressive treatment of COPD exacerbation with IV Solu-Medrol and doxycycline along with aggressive nebulizer treatments with admission to ICU because of respiratory distress. O2 supplementation as needed. He is not significantly hypoxic but should have a CTA of the chest if he can be weaned off BiPAP. A late report of the portable chest x-ray suggest possible infiltrate in the right upper lobe where he has his cancer and if CT is done and confirms infiltrate consider expanding IV antibiotic therapy and this compromised patient. His initial WBC was not elevated and viral screening was negative. Consider checking procalcitonin. He also denied any fever at home. (2) COPD with acute exacerbation: Start date: 04/17/23 Status: Acute Assessment and plan: Aggressive nebulizer treatments holding handheld inhalers for now. IV Solu- Medrol and IV doxycycline for possible bronchitis with recent increasing cough and shortness of breath. He does continue to have occasional tobacco use but does not needed nicotine patch when asked if he was in need of supplement. (3) Acute hyperglycemia: Start date: 04/17/23 Status: Acute Assessment and plan: Patient appears to have had hyperglycemia in the past and is not overweight but steroids may exacerbate this problem. Glucometer measurements with sliding scale coverage first sensitive scale while hospitalized on high-dose steroids. Watch for hypoglycemia. (4) Non-small cell lung cancer metastatic to bone: Status: Chronic Assessment and plan: Patient is receiving chemotherapy and will continue to follow-up with oncology. Prognosis is poor. He is a DNR/DNI. (5) Tobacco dependence: Status: Acute Assessment and plan: No need for nicotine supplement. Advised complete cessation and long-term History of Present Illness History of Present Illness Chief Complaint: Increasing shortness of breath for 2 days Narrative: This is a 52-year-old male patient diagnosed with non-small cell carcinoma of the lung metastatic to bone being stage IV. He is on chemotherapy and states that the treatment is working but he continues to intermittently smoke and is a DNR/DNI. He had recent worsening of his breathing intermittently smoking tobacco and denies fever but was having slight chills and sweats. He does have a history of COPD on inhalers. He reported to the ED and moderate severe distress requiring BiPAP which improved his breathing status but cannot be weaned off BiPAP. This will be continued with his ABG showed improvement of his respiratory acidosis with CO2 retention. His oxygenation is good. He is not a candidate for CTA of the chest on BiPAP but if he is able to be weaned off CTA should be considered the patient at least on DVT prophylaxis. He is at increased risk for PE. If he cannot be weaned off BiPAP there may need to be a discussion about comfort measures if he does not improve. He appears to be responding to IV steroids and more aggressive nebulizer treatments with BiPAP. He denies any chest pain or production of cough/emesis. Was placed on IV doxycycline because of his exacerbation of COPD. Patient is still having tugging respirations on BiPAP and is sitting upright in bed when approached. As stated, he is a DNR/DNI. Review of Systems Narrative: 13 point review of system positive for some weight loss when he was first diagnosed with cancer but this is stable, his appetite is fair, otherwise unrevealing or stable. PFSH All Active Problems (Updated 04/17/23 @ 10:09 by Román Velasco) Acute hyperglycemia (Acute) Acute hypercapnic respiratory failure (Acute) Non-small cell lung cancer metastatic to bone (Chronic) Anemia (Chronic) Left lower lobe pneumonia (Acute) COPD with acute exacerbation (Acute) Back pain, thoracic (Acute) COPD (chronic obstructive pulmonary disease) (Chronic) Tobacco dependence (Acute) Medical History History of diverticulitis Thrombocytosis GERD (gastroesophageal reflux disease) Right rotator cuff tendonitis Elevated blood pressure reading Surgical History S/P reconstruction of ligament of knee Family History Mother Breast cancer Other Cancer Social History Smoking/Tobacco Use Status: Former Tobacco Use Smoking risk assessment performed?: Yes Alcohol Intake: current Alcohol Intake frequency: holidays/special occasions only Substance use type: marijuana Housing: apartment Current gender identity: male Additional Social history: lives with sister in apartment in [facility]. Born in [place], lived in [place] x 30 years. 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 Remote 4 year incarceration. Meds Allergies and Home Medications Allergies Allergy/AdvReac Type Severity Reaction Status Date / Time amitriptyline AdvReac Intermediate Verified 01/02/23 01:58 Home Medications Medication Instructions Recorded Confirmed Type fluticasone 250 mcg-salmeterol 50 1 inh inhalation BID 03/22/21 01/02/23 History mcg/dose blistr powdr for inhalation (Advair Diskus) omeprazole 40 mg capsule,delayed 40 mg PO DAILY 03/22/21 01/02/23 History release tiotropium bromide 18 mcg capsule 1 cap inhalation DAILY 03/22/21 01/02/23 History with inhalation device (Spiriva with HandiHaler) dronabinol 10 mg capsule 10 mg PO BID 01/02/23 01/02/23 History hydromorphone 2 mg tablet 4 mg PO TID 01/02/23 01/02/23 History (Dilaudid) morphine 100 mg capsule,extended 100 mg PO TID 01/02/23 01/02/23 History release pellets pregabalin 50 mg capsule (Lyrica) 50 mg PO BID 01/02/23 01/02/23 History albuterol sulfate 90 mcg/actuation 2 inh inhalation Q4H PRN #1 ea 01/04/23 Rx breath activated powder inhaler amoxicillin 500 mg-potassium 1 tab PO TID #15 tabs 01/04/23 Rx clavulanate 125 mg tablet (Augmentin) prednisone 10 mg tablet See Rx Instructions .Route 01/04/23 Rx .COMPLEX #48 tabs Exam Narrative Exam Narrative: General: Patient appears older than stated age, alert and oriented x 3. In moderate to severe distress with his difficulty breathing on BiPAP. HEENT: Normocephalic, eyes with pupils equal and react to light symmetrically, extraocular movement intact and sclera anicteric. Oropharynx with dry mucosa. Neck: Supple without JVD. Back: Normal posture without CVA tenderness. Lungs: Very poor aeration especially over the right upper back with absent lung sounds, prolonged expiratory phase with diffuse expiratory wheeze but no focalizing expiratory rales. Rhonchi with cough. Heart: Regular rate and rhythm with no murmurs or gallops appreciated. Abdomen: Scaphoid contour, soft nontender to palpation without palpable hepatosplenomegaly. No guarding or rebound. Bowel sounds positive all quadrants. Genitalia/rectal: Exam deferred. Extremities: Without gross clubbing, cyanosis or pitting edema. Fair capillary refill. Skin: Normal color with active changes over sun exposed areas, moist and warm. Neuro: Cranial nerves II through XII gross intact, no focal motor deficits. No tremor. Psych: Flattened affect with depressed mood, no abnormal thought processes. Remote and recent memory appear to be grossly intact. Results Imaging Imaging Studies: EXAM: XR PORTABLE CHEST AP Date of exam: 04/17/2023 CLINICAL HISTORY: sob. TECHNIQUE: 2D digital imaging was performed. COMPARISON: No exams were available for comparison FINDINGS: Single AP portable view. Heart size is upper normal. The mediastinum is not widened. Advanced bullous disease again noted bilaterally, without evidence of obvious pneumothorax. No new left-sided infiltrates. Increased markings in the right suprahilar region, slightly more so than previous. This may indicate infiltrate in the right upper lobe region. No pleural effusions on either side. IMPRESSION: Severe bullous disease, again noted be more prominent on the right side.There appears to be some infiltrate in the right upper lobe region, more so than previous. Labs 04/17/23 06:02 04/17/23 06:02 Labs: Laboratory Results - last 24 hr 04/17/23 04/17/23 04/17/23 02:55 03:09 03:56 WBC 10.49 RBC 4.66 Hgb 13.8 Hct 43.8 MCV 94 MCH 29.6 MCHC 31.5 L RDW 12.2 Plt Count 582 H MPV 9.3 Immature Gran % 0.0 Neutrophils % 44.0 Lymphocytes % 38.0 Atypical Lymphs % 4 Monocytes % 12.0 Eosinophils % 2.0 Basophils % 0.0 Nucleated RBC % 0.0 Absolute Neutrophils 4.62 Absolute Lymphocytes 4.41 H Absolute Monocytes 1.26 H Absolute Eosinophils 0.21 Absolute Basophils 0.00 RBC Morphology Normal ABG Sample Site Left Radial ABG pH 7.14 L* ABG pCO2 63 H* ABG pO2 150 H ABG HCO3 22 ABG Total CO2 21 L ABG O2 Saturation 98 ABG Base Excess -7 L VBG pH 7.11 L* 7.29 L VBG pCO2 69 H* 49 VBG pO2 47 67 VBG HCO3 22 L 23 VBG Total CO2 21 L 21 L VBG O2 Saturation 65 91 VBG Base Excess -8 L -3 L FiO2 40 Sodium 139 Potassium 4.8 Chloride 100 Carbon Dioxide 23.0 Anion Gap 16.0 H BUN 6 L Creatinine 1.3 Est GFR (CKD-EPI 2020) 66.51 Glucose 209 H Calcium 9.8 Total Bilirubin 0.3 AST 15 ALT 15 L Alkaline Phosphatase 84 Total Protein 8.4 H Albumin 3.8 Last Vital Signs Temp 37.1 C 04/17/23 02:47 Pulse 136 H 04/17/23 04:00 Resp 20 04/17/23 04:00 BP 103/83 04/17/23 04:00 Pulse Ox 93 04/17/23 04:04 Time Spent Time spent with Patient: >75 minutes Time was spent: preparing to see the patient(eg.review tests), obtaining and/or reviewing separately otained hiistory, ordering medications,tests, procedures, indepentently interpreting results, counseling the patient and care coordination
[2023-04-17 04:31] LABS: COVID-19 PCR Negative (Negative); Influenza A PCR Negative (Negative); Influenza B PCR Negative (Negative); RSV PCR Negative (Negative)
[2023-04-17 04:39] LABS: Source Nasopharynx
--- NOTE | 2023-04-17 05:00 | DI.VRAD_ITS ---
PROCEDURE INFORMATION: Exam: XR Chest Exam date and time: 04/17/2023 3:07 AM Age: 52 years old Clinical indication: Shortness of breath; Additional info: SOB TECHNIQUE: Imaging protocol: Radiologic exam of the chest. Views: 1 view. COMPARISON: CT CHEST W 03/03/2023 9:29 AM FINDINGS: Lungs: Redemonstrated apically dominant bullous disease and architectural distortion similar to prior comparisons. Pleural spaces: Given apically dominant left bolus disease, difficult to exclude pneumothorax, however apices demonstrates similar configuration to the comparative cross-sectional evaluation on 03/03/2023 and comparative radiographs on 01/10/2023. Heart/Mediastinum: Unremarkable. No cardiomegaly. Bones/joints: Healed posterior right 11th rib fracture. Additional cortical irregularities of the posterior 10th 9th and 8th ribs are better detailed on the prior comparative cross-sectional evaluation in appear unchanged. IMPRESSION: 1. No acute change from prior comparative examination with additional findings as above. 2. If there is continued underlying concern for pneumothorax, recommend cross-sectional evaluation as the apices are limited in evaluation as detailed above. Dictated and Authenticated by: Henrry García MD. Ordering:MAGI Oconnor MD
[2023-04-17] MEDS: Albuterol/Ipratropium 3 ML UPD VIAL UPD ×2 (06:36→12:20)
[2023-04-17 06:41] LABS: HCT 37.4 % (40.0-50.0); HGB 12.3 g/dL (13.5-17.5); MCH 30.2 pg (27.0-33.0); MCHC 32.9 % (32.0-36.0); MCV 92 fL (80-95); MPV 9.6 fL (8.0-11.0); Platelet Count 489 10^3/uL (130-400); RBC 4.07 10^6/uL (4.36-5.78); RDW 12.3 % (11.8-14.1); RDW-SD 41.1 fL
[2023-04-17 07:04] LABS: ALT 14 U/L (16-63); AST 16 U/L (15-37); Albumin 3.5 g/dL (3.4-5.0); Alkaline Phosphatase 72 U/L (46-116); Anion Gap 15.3 mmol/L (3-11); BUN 7 mg/dL (7-18); Bilirubin, Total 0.3 mg/dL (0.2-1.0); CO2 22.7 mmol/L (21.0-32.0); CREATININE 1.1 mg/dL (0.70-1.30); Calcium 8.9 mg/dL (8.5-10.1); Chloride 103 mmol/L (98-107); Estimated GFR 81.28 (mL/min/1.73m2); Glucose 137 mg/dL (74-106); Potassium 3.8 mmol/L (3.5-5.1); Sodium 141 mmol/L (136-145); Total Protein 7.4 g/dL (6.4-8.2)
[2023-04-17] MEDS: Dronabinol 2.5 MG CAP 10 MG PO (08:41)
[2023-04-17] MEDS: Pregabalin 50 MG CAP PO (08:42)
[2023-04-17] MEDS: Omeprazole 20 MG CAPCR 40 MG PO (08:42)
[2023-04-17] MEDS: predniSONE 20 MG TAB 40 MG PO (08:42)
[2023-04-17] MEDS: Enoxaparin 40 MG/0.4 ML SYR SC (08:42)
[2023-04-17] MEDS: Normal Saline Flush 10 ML SYR IVP ×2 (08:43→10:00)
[2023-04-17] MEDS: Albuterol 2.5 MG/3 ML INH SOLN VIAL UPD (08:48)
[2023-04-17] MEDS: DOXYCYCLINE 100 MG in Normal Saline 100 ML IVPB ×2 (08:55→20:13)
--- NOTE | 2023-04-17 09:13 | PDOC.CMIN ---
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 CURRENT FUNCTIONAL STATUS:: Alexis's respiratory status declined throughout the day, resulting in intubation by the evening. CM continues to follow. ADVANCE DIRECTIVES:: None on file. Has patient been provided with info about the portal/API?: No Did the patient sign up for the portal?: No CODE STATUS:: DNR/DNI INSURANCE COVERAGE / FINANCIAL ISSUES:: Medicaid CURRENT HOME/COMMUNITY SERVICES/EQUIPMENT:: Chemotherapy; Mondays. POTENTIAL DISCHARGE NEEDS:: Follow up appointments. PATIENT/FAMILY EDUCATION NEEDS:: Review discharge instructions, discuss Ask Me Three. ANTICIPATED BARRIERS TO DISCHARGE:: None identified. TRANSPORTATION:: Via private vehicle with sister. PLAN:: Anticipate Alexis will return home when ready per MD. He will follow up with his PCP and plan of care as prescribed. CM will continue to support discharge planning. PFSH All Active Problems (Updated 04/17/23 @ 10:09 by Román Velasco) Acute hyperglycemia (Acute) Acute hypercapnic respiratory failure (Acute) Non-small cell lung cancer metastatic to bone (Chronic) Anemia (Chronic) Left lower lobe pneumonia (Acute) COPD with acute exacerbation (Acute) Back pain, thoracic (Acute) COPD (chronic obstructive pulmonary disease) (Chronic) Tobacco dependence (Acute) Medical History History of diverticulitis Thrombocytosis GERD (gastroesophageal reflux disease) Right rotator cuff tendonitis Elevated blood pressure reading Surgical History S/P reconstruction of ligament of knee Family History Mother Breast cancer Other Cancer Social History Smoking/Tobacco Use Status: Former Tobacco Use Smoking risk assessment performed?: Yes Alcohol Intake: current Alcohol Intake frequency: holidays/special occasions only Substance use type: marijuana Housing: apartment Current gender identity: male Additional Social history: lives with sister in apartment in [place] Born in [place], lived in [place] x 30 years. 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 Remote 4 year incarceration. SDOH(Care Management) Screening Will the Patient Participate in the Screening?: Unable to obtain
--- NOTE | 2023-04-17 09:30 | NUR.NOTE ---
Accessed pt chart to determine unit he was admitted to for phone call from family member. Nursing Note:
--- NOTE | 2023-04-17 11:33 | PHACLINREV_ITS ---
Pharmacy Admission Review Admission Clinical Review Admission Pharmacy Review: Acute hyperglycemia (Acute) Acute hypercapnic respiratory failure (Acute) COPD with acute exacerbation (Acute) Tobacco dependence (Acute) amitriptyline Adverse Reaction (Intermediate, Verified 01/02/23 01:58) Resuscitation Status DNR/DNI Height 5 ft 10 in Weight 96.3 kg Pharmacy Admission Review Renal Dosing Renal Dosing: BUN 7 mg/dL (7-18) 04/17/23 06:02 Creatinine 1.1 mg/dL (0.70-1.30) 04/17/23 06:02 Medications needing adjustments: Reviewed (CrCl 92.5 mL/min) Anticoagulation Anticoagulation: Hgb 12.3 g/dL (13.5-17.5) L 04/17/23 06:02 Hct 37.4 % (40.0-50.0) L 04/17/23 06:02 Plt Count 489 10^3/uL (130-400) H 04/17/23 06:02 Creatinine 1.1 mg/dL (0.70-1.30) 04/17/23 06:02 DVT Prophylaxis: Reviewed Medications: Enoxaparin (40mg q24h) Opiate Usage Evaluate Pain Scale/Pains Meds: Reviewed (PRN hydromorphone and ALTHEA morphine) Scheduled Bowel Reg ordered if on Opiates?: No (PRN docusate/Miralax) Relevant Labs Relevant Labs: Sodium 141 mmol/L (136-145) 04/17/23 06:02 Potassium 3.8 mmol/L (3.5-5.1) D 04/17/23 06:02 Chloride 103 mmol/L (98-107) 04/17/23 06:02 Magnesium 3.0 mg/dL (1.8-2.4) H 04/17/23 06:02 Electrolytes, C-Reactive P, ESR: Reviewed (Mg 3, WBC 19.6, Hgb 12.3, glucose 137) Cardiac Review Cardiac Review: Blood Pressure 94/81 1100 Blood Pressure 101/84 1000 Blood Pressure 102/81 0901 Blood Pressure 100/68 0900 Blood Pressure 96/86 0800 Blood Pressure 120/97 0345 Blood Pressure 128/103 0331 Blood Pressure 158/116 0316 Blood Pressure 145/117 0300 Blood Pressure 108/47 0253 Blood Pressure 108/47 0247 BP, HR, EF%: Reviewed (HR 108 and BP 94/81) QTc Review QTc: Reviewed (420 from 04/17/23) IV to PO Switch IV Medications: Reviewed Home Meds Home Med List reviewed: Intervened Relevent Home Meds Not ordered & why?: No orders for Advair or Spiriva. Reached out to provider who asked that I put in orders for both. Called nursing to see if patient could have his morphine brought in from home (we do not have it). Waiting telephone surveyor back. Current Meds Current Medication Order Review: Intervened Comments: Had an order for pregabalin (from home med list) but has not filled within the past year (checked [facility]). Reached out to provider who asked that I discontinue the order. I also removed it from his home med list. Pharmacy Antibiotic Review Pharmacy Antibiotic Activity: Reviewed, no change Comments: Patient is on doxycycline 100mg IV q12h, day 1.
--- NOTE | 2023-04-17 17:30 | RT.EKG_ITS ---
APPROVED REPORT Exam: Resting ECG Reason for Exam: chest pain, SOB Patient Location: I HR:156 bpm ECG Measurements Heart Rate 156 AXIS NM 106 P 0 QRSd 101 QRS -59 QT 315 T 95 QTc 508 Conclusion Sinus tachycardia...rate> 99 Ventricular premature complex...V complex w/ short R-R interval LAD, consider left anterior fascicular block...axis(240,-40), S>R II III aVF Anteroseptal infarct, age indeterminate...Q >35mS, T neg, V1-V2 Prolonged QT interval...QTc >500mS Artifact in lead(s) I,II,III,V3,V4,V5,V6
[2023-04-17] MEDS: MORPHine 2 MG/ML SYR (17:33)
--- NOTE | 2023-04-17 17:45 | RT.EKG_ITS ---
APPROVED REPORT Exam: Resting ECG Reason for Exam: chest pain Patient Location: I HR:149 bpm ECG Measurements Heart Rate 149 AXIS NH 128 P 26 QRSd 85 QRS -42 QT 256 T 86 QTc 403 Conclusion Sinus tachycardia...rate> 99 left axis possible anterior infarct low voltage
[2023-04-17] MEDS: Levalbuterol 1.25 MG/3 ML UPD VIAL (17:50)
--- NOTE | 2023-04-17 18:00 | DI.RAD_ITS ---
Exam(s) XR PORTABLE CHEST AP EXAM: XR PORTABLE CHEST AP CLINICAL HISTORY: post intubation TECHNIQUE: 2D digital imaging was performed. COMPARISON: CR XR CHEST 2V PA LATERAL from 01/10/[address] CHEST W from 03/03/2023 CR,XR XR PORTABLE CHEST AP from 04/17/2023 FINDINGS: An endotracheal tube has been inserted. The tip lies just above the level of the aortic arch. A mimi ogastric tube is seen projecting beneath the diaphragm. LUNGS: Severe pulmonary scarring and bulla again noted. HEART: Normal size. AORTA: Normal diameter. BONES: Unremarkable for age. Soft tissues: Unremarkable. IMPRESSION: Satisfactory placement of endotracheal tube and nasogastric tube. DATA REPOSITORY: RADIATION DOSE DELIVERED:
[2023-04-17 18:07] LABS: BE -12 mmol/L (-2-3); HCO3 17 mmol/L (22-26); pCO2 51 mmHg (35-45); pO2 150 mmHg (80-105); sO2 98 % (95-98); tCO2 17 mmol/L (23-27)
[2023-04-17 18:07] LABS: HCT 42.3 % (40.0-50.0); HGB 13.2 g/dL (13.5-17.5); MCH 29.5 pg (27.0-33.0); MCHC 31.2 % (32.0-36.0); MCV 95 fL (80-95); MPV 10.5 fL (8.0-11.0); Platelet Count 460 10^3/uL (130-400); RBC 4.47 10^6/uL (4.36-5.78); RDW 12.5 % (11.8-14.1); RDW-SD 43.4 fL; WBC 10.87 10^3/uL (4.4-10.8)
[2023-04-17] MEDS: Etomidate 20 MG/10 ML VIAL IVP (18:07)
[2023-04-17] MEDS: Rocuronium 50 MG/5 ML SYR 100 MG IVP (18:08)
[2023-04-17 18:09] LABS: Site Right Radial
[2023-04-17 18:11] LABS: pH 7.14 (7.35-7.45)
[2023-04-17 18:15] LABS: Troponin I 2704 ng/L (< or =60)
[2023-04-17 18:16] LABS: Lactate 7.7 mmol/L (0.6-1.4)
[2023-04-17 18:18] LABS: Anion Gap 19.9 mmol/L (3-11); BUN 14 mg/dL (7-18); CO2 18.1 mmol/L (21.0-32.0); CREATININE 1.6 mg/dL (0.70-1.30); Calcium 9.9 mg/dL (8.5-10.1); Chloride 100 mmol/L (98-107); Estimated GFR 51.84 (mL/min/1.73m2); Glucose 202 mg/dL (74-106); Sodium 138 mmol/L (136-145)
--- NOTE | 2023-04-17 18:18 | W.ED.PROC ---
Date of service: 04/17/23 Time of Service: 18:18 Procedures Intubation Time out performed: Yes sedative: Etomidate Mg Given: 20 paralytic: Rocuronium Mg Given: 100 Laryngoscope: Angie ET Tube Size: 7.5 ET Tube Uncuffed: No Tube Secured Depth (cm): 28 Tube Secured Location: teeth Tube Placement Confirmation: equal breath sounds bilaterally, no breath sounds over epigastrum and confirmation by capnometry Patient Tolerated Procedure: well Intubation Complications: none Additional Comments: Called to bedside patient in ICU COPD history of lung cancer, acute decline in respiratory status acute tachycardia, tachypnea tripoding cyanotic appearing limbs, belly breathing and accessory muscle use, patient intubated for respiratory distress despite adequate medical resuscitation. Medical Decision Making Quality:SDOH Health Related Social Needs: No Data to Display
[2023-04-17 18:22] LABS: Potassium 6.3 mmol/L (3.5-5.1)
[2023-04-17 19:20] LABS: PTT Activated 27.4 sec (23.6-32.8)
[2023-04-17] MEDS: Heparin in 0.45% NaCl 25,000 UNIT/250 ML BAG 9.5 UNIT IV (19:22)
[2023-04-17] MEDS: Normal Saline 1,000 ML 150 ML IV (19:30)
--- NOTE | 2023-04-17 19:55 | PGE_ITS ---
Date of Service Date of service: 04/17/23 Time of Service: 19:55 Subjective Subjective Interval history since last seen: At around 17:30 patient experienced sudden onset chest pain, tachycardia with heart rate up to the 160s, tachypnea with respiratory rate in the 40s. He was given IV morphine and breathing treatment in an attempt to use his shortness of breath but did not improve, however, patient continued to have oxygen saturat ions in the high 90s while on 35% FiO2 BiPAP. However, given patient's significant increased work of breathing it was determined that he would require an ablation. I discussed with the patient prior given that he does have DNR/DNI status, and he stated that he would want to be intubated but reiterated that he would not want to have cardiac resuscitation. Prior to intubation patient had ABG which showed 7.1 4/50/150/172 with a lactic acid of 7.3 as well as a potassium of 6.3. Additionally, troponin was found to be about 2700 and EKG at that time showed new mild ST elevations in leads II, III, aVR, V3 and V4 without any reciprocal lead ST depressions. Emergency room physician entered the room and intubated the patient without issue. EKG after intubation showed significant improvement in above-mentioned findings. At this time patient was given loading dose of aspirin and started on a heparin drip, and [facility] cardiology was consulted. They believe patient was not having a STEMI, but that likely respiratory issues resulted in significant stress-induced cardiac event/NSTEMI. They agreed with initiation of heparin and aspirin, and recommended that if repeat troponin significantly elevates that he should be started on Plavix. Additionally, they stated that if patient does have any hemodynamic instability, or significant EKG changes that patient be contacted for consideration of transfer. This time, patient is intubated, on propofol, fentanyl drip, 150 mL/h of normal saline, started on 25 mg Lopressor twice daily, and will have serial troponins and EKGs overnight. Objective Last Vital Signs Temp 97.5 F L 04/17/23 09:00 Pulse 104 H 04/17/23 16:01 Resp 12 04/17/23 18:19 BP 111/88 04/17/23 16:01 Pulse Ox 99 04/17/23 18:19 Laboratory Results - last 24 hr 04/17/23 04/17/23 04/17/23 02:55 03:09 03:45 WBC 10.49 RBC 4.66 Hgb 13.8 Hct 43.8 MCV 94 MCH 29.6 MCHC 31.5 L RDW 12.2 Plt Count 582 H MPV 9.3 Immature Gran % 0.0 Neutrophils % 44.0 Lymphocytes % 38.0 Atypical Lymphs % 4 Monocytes % 12.0 Eosinophils % 2.0 Basophils % 0.0 Nucleated RBC % 0.0 Absolute Neutrophils 4.62 Absolute Lymphocytes 4.41 H Absolute Monocytes 1.26 H Absolute Eosinophils 0.21 Absolute Basophils 0.00 RBC Morphology Normal APTT ABG Sample Site Left Radial ABG pH 7.14 L* ABG pCO2 63 H* ABG pO2 150 H ABG HCO3 22 ABG Total CO2 21 L ABG O2 Saturation 98 ABG Base Excess -7 L VBG pH 7.11 L* VBG pCO2 69 H* VBG pO2 47 VBG HCO3 22 L VBG Total CO2 21 L VBG O2 Saturation 65 VBG Base Excess -8 L VBG Lactate FiO2 40 Sodium 139 Potassium 4.8 Chloride 100 Carbon Dioxide 23.0 Anion Gap 16.0 H BUN 6 L Creatinine 1.3 Est GFR (CKD-EPI 2020) 66.51 Glucose 209 H Calcium 9.8 Magnesium Total Bilirubin 0.3 AST 15 ALT 15 L Alkaline Phosphatase 84 Troponin I Total Protein 8.4 H Albumin 3.8 COVID-19 Source Nasopharynx SARS-CoV-2 (PCR) Negative Influenza Type A (PCR) Negative Influenza Type B (PCR) Negative RSV (PCR) Negative 04/17/23 04/17/23 04/17/23 03:56 05:35 06:02 WBC 19.60 H RBC 4.07 L Hgb 12.3 L Hct 37.4 L MCV 92 MCH 30.2 MCHC 32.9 RDW 12.3 Plt Count 489 H MPV 9.6 Immature Gran % Neutrophils % Lymphocytes % Atypical Lymphs % Monocytes % Eosinophils % Basophils % Nucleated RBC % Absolute Neutrophils Absolute Lymphocytes Absolute Monocytes Absolute Eosinophils Absolute Basophils RBC Morphology APTT ABG Sample Site ABG pH ABG pCO2 ABG pO2 ABG HCO3 ABG Total CO2 ABG O2 Saturation ABG Base Excess VBG pH 7.29 L VBG pCO2 49 VBG pO2 67 VBG HCO3 23 VBG Total CO2 21 L VBG O2 Saturation 91 VBG Base Excess -3 L VBG Lactate FiO2 Sodium 141 Potassium 3.8 D Chloride 103 Carbon Dioxide 22.7 Anion Gap 15.3 H BUN 7 Creatinine 1.1 Est GFR (CKD-EPI 2020) 81.28 Glucose 137 H Calcium 8.9 Magnesium Cancelled 3.0 H Total Bilirubin 0.3 AST 16 ALT 14 L Alkaline Phosphatase 72 Troponin I Total Protein 7.4 Albumin 3.5 COVID-19 Source SARS-CoV-2 (PCR) Influenza Type A (PCR) Influenza Type B (PCR) RSV (PCR) 04/17/23 04/17/23 04/17/23 17:45 18:01 18:55 WBC 10.87 H RBC 4.47 Hgb 13.2 L Hct 42.3 MCV 95 MCH 29.5 MCHC 31.2 L RDW 12.5 Plt Count 460 H MPV 10.5 Immature Gran % Neutrophils % Lymphocytes % Atypical Lymphs % Monocytes % Eosinophils % Basophils % Nucleated RBC % Absolute Neutrophils Absolute Lymphocytes Absolute Monocytes Absolute Eosinophils Absolute Basophils RBC Morphology APTT 27.4 ABG Sample Site Right Radial ABG pH 7.14 L* ABG pCO2 51 H ABG pO2 150 H ABG HCO3 17 L ABG Total CO2 17 L ABG O2 Saturation 98 ABG Base Excess -12 L VBG pH VBG pCO2 VBG pO2 VBG HCO3 VBG Total CO2 VBG O2 Saturation VBG Base Excess VBG Lactate 7.7 H* FiO2 Sodium 138 Potassium 6.3 H* D Chloride 100 Carbon Dioxide 18.1 L Anion Gap 19.9 H BUN 14 Creatinine 1.6 H Est GFR (CKD-EPI 2020) 51.84 Glucose 202 H Calcium 9.9 Magnesium Total Bilirubin AST ALT Alkaline Phosphatase Troponin I 2704 H* Total Protein Albumin COVID-19 Source SARS-CoV-2 (PCR) Influenza Type A (PCR) Influenza Type B (PCR) RSV (PCR) Time Spent with Patient Time Spent with Patient: >50 minutes Time was spent: preparing to see the patient(eg.review tests), obtaining and/or reviewing separately otained hiistory, ordering medications,tests, procedures, referring, communicating with other health caregiver services home, indepentently interpreting results, counseling the patient and care coordination
[2023-04-17] MEDS: Pantoprazole 40 MG VIAL IVP (20:11)
[2023-04-17] MEDS: Aspirin 325 MG TAB NG (20:12)
[2023-04-17] MEDS: Metoprolol 25 MG TAB NG (20:12)
[2023-04-17 20:19] LABS: BE -7 mmol/L (-2-3); HCO3 23 mmol/L (22-26); pO2 87 mmHg (80-105); sO2 92 % (95-98); tCO2 22 mmol/L (23-27)
[2023-04-17 20:20] LABS: FIO2 35 %; Site Right Radial
[2023-04-17 20:22] LABS: pCO2 68 mmHg (35-45); pH 7.13 (7.35-7.45)
[2023-04-17] MEDS: Norepinephrine in D5W 8 MG/250 ML BAG 9.375 MG IV (21:00)
[2023-04-17] MEDS: Budesonide/Formoterol 160/4.5 6 GM 60 PUFF INH IH (21:10)
[2023-04-17] MEDS: PROPOFOL 1,000 MG/100 ML BTL 26.2 MG IVPB (22:11)
[2023-04-17 22:21] LABS: Troponin I 3024 ng/L (< or =60)
[2023-04-17 22:25] LABS: Anion Gap 16.2 mmol/L (3-11); BUN 17 mg/dL (7-18); CO2 19.8 mmol/L (21.0-32.0); CREATININE 1.4 mg/dL (0.70-1.30); Calcium 9.1 mg/dL (8.5-10.1); Chloride 103 mmol/L (98-107); Estimated GFR 60.85 (mL/min/1.73m2); Glucose 190 mg/dL (74-106); Sodium 139 mmol/L (136-145)
[2023-04-17 22:27] LABS: Potassium 5.1 mmol/L (3.5-5.1)
--- NOTE | 2023-04-17 22:45 | RT.EKG_ITS ---
APPROVED REPORT Exam: Resting ECG Reason for Exam: NSTEMI Patient Location: I HR:98 bpm ECG Measurements Heart Rate 98 AXIS MD 150 P 71 QRSd 94 QRS 12 QT 370 T 84 QTc 473 Conclusion Sinus rhythm...normal P axis, V-rate 50- 99 Probable left atrial enlargement...P >50mS, <-0.10mV V1 Anteroseptal infarct, age indeterminate...Q >35mS, T neg, V1-V2
[2023-04-17 22:51] LABS: BE -6 mmol/L (-2-3); HCO3 21 mmol/L (22-26); pCO2 47 mmHg (35-45); pH 7.27 (7.35-7.45); pO2 110 mmHg (80-105); sO2 98 % (95-98); tCO2 20 mmol/L (23-27)
[2023-04-17 22:52] LABS: Site Right Radial
[2023-04-17] MEDS: Insulin Aspart 300 UNITS/3 ML PEN SC (23:55)
[2023-04-18] VITALS (94 sets, daily range): BP systolic 86–127; BP diastolic 71–97; PULSE 88–108; RESP 2–24; TEMP 36–36.8; O2SAT 94–98
[2023-04-18] MEDS: Albuterol/Ipratropium 3 ML UPD VIAL UPD ×4 (00:16→23:30)
[2023-04-18] MEDS: Normal Saline 500 ML IV (00:30)
--- NOTE | 2023-04-18 01:45 | RT.EKG_ITS ---
APPROVED REPORT Exam: Resting ECG Reason for Exam: NSTEMI Patient Location: I HR:95 bpm ECG Measurements Heart Rate 95 AXIS SD 144 P 79 QRSd 75 QRS 7 QT 368 T 89 QTc 463 Conclusion Sinus rhythm...normal P axis, V-rate 50- 99 Anteroseptal infarct, age indeterminate...Q >35mS, T neg, V1-V2
[2023-04-18 01:51] LABS: PTT Activated 52.8 sec (23.6-32.8)
[2023-04-18 01:59] LABS: Troponin I 2706 ng/L (< or =60)
[2023-04-18] MEDS: Normal Saline 1,000 ML 150 ML IV (02:52)
[2023-04-18] MEDS: PROPOFOL 1,000 MG/100 ML BTL 21.3 MG IVPB ×2 (02:56→06:53)
[2023-04-18] MEDS: Norepinephrine in D5W 8 MG/250 ML BAG 30 MG IV (04:40)
--- NOTE | 2023-04-18 04:45 | RT.EKG_ITS ---
APPROVED REPORT Exam: Resting ECG Reason for Exam: NSTEMI Patient Location: I HR:92 bpm ECG Measurements Heart Rate 92 AXIS IL 147 P 77 QRSd 94 QRS -2 QT 388 T 118 QTc 481 Conclusion Sinus rhythm...normal P axis, V-rate 50- 99 Probable left atrial enlargement...P >50mS, <-0.10mV V1 Anterior infarct, age indeterminate...Q >35mS, T neg, in V2-V5
[2023-04-18 06:25] LABS: BE (Venous) -3 mmol/L (-2-3); HCO3 (Venous) 23 mmol/L (23-28); O2 Sat (Venous) 94 %; TCO2 (Venous) 21 mmol/L (24-29); pCO2 (Venous) 40 mmHg (41-51); pH (Venous) 7.36 (7.31-7.41); pO2 (Venous) 70 mmHg
[2023-04-18 06:40] LABS: Anion Gap 10.3 mmol/L (3-11); BUN 17 mg/dL (7-18); CO2 23.7 mmol/L (21.0-32.0); CREATININE 1.3 mg/dL (0.70-1.30); Calcium 8.9 mg/dL (8.5-10.1); Chloride 106 mmol/L (98-107); Estimated GFR 66.51 (mL/min/1.73m2); Glucose 151 mg/dL (74-106); Sodium 140 mmol/L (136-145)
[2023-04-18 06:41] LABS: Magnesium 2.1 mg/dL (1.8-2.4)
[2023-04-18 06:42] LABS: PTT Activated 43.1 sec (23.6-32.8)
[2023-04-18 06:52] LABS: Troponin I 2032 ng/L (< or =60)
[2023-04-18] MEDS: Budesonide/Formoterol 160/4.5 6 GM 60 PUFF INH IH ×2 (07:37→19:21)
[2023-04-18] MEDS: Normal Saline Flush 10 ML SYR IVP ×8 (08:00→23:12)
[2023-04-18] MEDS: DOXYCYCLINE 100 MG in Normal Saline 100 ML IVPB ×2 (08:12→19:45)
--- NOTE | 2023-04-18 08:21 | PUCC_ITS ---
General Date of Service Date of service: 04/18/23 Time of Service: 08:21 Reason for Admission to ICU: Respiratory failure Assessment and Plan Assessment and plan (1) NSTEMI (non-ST elevated myocardial infarction): Status: Acute (2) COPD with acute exacerbation: Status: Acute (3) Non-small cell lung cancer metastatic to bone: Status: Chronic (4) Acute hypercapnic respiratory failure: Status: Acute (5) Cardiogenic shock: Status: Acute (6) Leukocytosis: Status: Acute (7) Anemia: Status: Chronic Qualifiers: Anemia type: other cause Other causes of anemia: antineoplastic chemotherapy Qualified Code(s): D64.81 - Anemia due to antineoplastic chemotherapy; T45.1X5A - Adverse effect of antineoplastic and immunosuppressive drugs, initial encounter (8) Thrombocytosis: Status: Acute (9) Lactic acidosis: Status: Acute Assessment and plan: This is a 52 yo admitted to the ICU for respiratory failure from cardiogenic shock and a COPD exacerbation s/p intubation. I suspect the event which lead to his intubation was more consistent with an acute anxiety issue, particularly since he was so quick to be extubated. On POCUS his EF is decreased and has the appearance of a dilated process, although my views are limited just to the subxyphoid given severe emphysema obstruction cardiac windows. Pemetrexed can rarely cause a cardiomyopathy, so it will be important to get a formal echo to assess for this. I recommend he have central access (midline or PICC is fine) and to switch the Levophed to Epinephrine to provide more inotropy. I also stopped the IVF's. He is ordered for a formal echo. His troponins have downtrended, and in his clinical setting, this is likely a type II NSTEMI. I do not feel strongly about the heparin, however given his malignancy he is high risk for clots and [facility] cardiology recommended this. I agree with treating him for a COPD exacerbation. Recommendations Pulmonary: Acute hypercapnic respiratory failure - s/p extubation - VBG with clinical change - VibraPEP and IS - OOB to chair COPD Exacerbation - continue prednisone 40mg for 5 days - continue doxycycline for 5 days - continue Symbicort and Spiriva - Duonebs q6h Cardiac: Cardiogenic Shock - recommend switching Levophed to epinephrine - strict I/O's - bnp - echo - no IVF's - hold blood pressure lowing meds Renal: Lactic acidosis - resolved I&O: Intake & Output 04/15/23 04/16/23 04/17/23 04/18/23 23:59 23:59 23:59 23:59 Intake Total 427.922 / 285.972 5858.900 / 2775.900 Output Total 675 / 675 750 / 750 Balance -247.078 / -025.615 4839.900 / 2024.900 Weight 96.3 kg 66.3 kg Daily Fluid Goal:: Even GI Nutrition: Diet - ok for normal diet if RN bedside swallow test is passed Date of Last Bowel Movement: 04/16/23 Infectious Disease: No acute concern Hematologic: Metastatic NSCLC - on pemetrexed and cisplatin outpt - continue outpatient pain control regimen Leukocytosis - reactive Anemia - no acute bleeding Thrombocytosis - continue to monitor Neurologic: No acute concerns Endocrine: No acute concerns Lines: PIV recommend central access Prophylaxis: PPI heparin Code Status: Resuscitation Status DNR/DNI Subjective Critical and life-threatening events over the past 24 hours: This is a 52 yo with metastatic lung cancer admitted to the ICU for respiratory failure necessitating intubation and mechanical ventilation for increased work of breathing. He required moderate doses of Levophed overnight (no central access). At the time of his intubation he did have a respiratory acidosis along with an elevated lactate level (which has now normalized). His troponins have been elevated without any clear EKG ischemic changes. On my assessment this morning he easily arose after stopping his sedation and Fentanyl infusion. He was placed on an SBT which he passed and so I made the decision to extubate. He remained stable with extubation to nasal cannula. He is s/p palliative radiation to right posterior chest. He has been on carboplatinum and pemetrexed after failing immunotherapy. He states his breathing is much better than it was. No immediate complaints of pain. Exam Narrative Exam Narrative: Gen: NAD, normal respiratory effort, well-nourished HENT: PERRL, nasal turbinates normal without erythema or inflammation, moist oral mucosa, Mallampati 2, No LAD or JVD Chest: No respiratory distress, normal appearance of chest, diminished breath sounds bilaterally Heart: regular rate and rhythym, no murmurs, rubs or gallops Abdomen: Non-distended, soft, non tender Extremities: No clubbing, edema, cyanosis, rashes Neuro: AAOx3 , non focal Psych: cooperative, appropriate mental affect Most Recent VS/Results Last Vital Signs Temp 36.6 C 04/18/23 04:02 Pulse 88 04/18/23 06:04 Resp 19 04/18/23 07:48 BP 112/92 H 04/18/23 07:38 Pulse Ox 97 04/18/23 07:48 Laboratory Results - last 24 hr 04/17/23 04/17/23 04/17/23 17:45 18:01 18:55 WBC 10.87 H RBC 4.47 Hgb 13.2 L Hct 42.3 MCV 95 MCH 29.5 MCHC 31.2 L RDW 12.5 Plt Count 460 H MPV 10.5 APTT 27.4 ABG Sample Site Right Radial ABG pH 7.14 L* ABG pCO2 51 H ABG pO2 150 H ABG HCO3 17 L ABG Total CO2 17 L ABG O2 Saturation 98 ABG Base Excess -12 L VBG pH VBG pCO2 VBG pO2 VBG HCO3 VBG Total CO2 VBG O2 Saturation VBG Base Excess VBG Lactate 7.7 H* FiO2 Sodium 138 Potassium 6.3 H* D Chloride 100 Carbon Dioxide 18.1 L Anion Gap 19.9 H BUN 14 Creatinine 1.6 H Est GFR (CKD-EPI 2020) 51.84 Glucose 202 H Calcium 9.9 Magnesium Troponin I 2704 H* 04/17/23 04/17/23 04/17/23 20:15 21:55 22:35 WBC RBC Hgb Hct MCV MCH MCHC RDW Plt Count MPV APTT ABG Sample Site Right Radial Right Radial ABG pH 7.13 L* 7.27 L ABG pCO2 68 H* 47 H ABG pO2 87 110 H ABG HCO3 23 21 L ABG Total CO2 22 L 20 L ABG O2 Saturation 92 L 98 ABG Base Excess -7 L -6 L VBG pH VBG pCO2 VBG pO2 VBG HCO3 VBG Total CO2 VBG O2 Saturation VBG Base Excess VBG Lactate FiO2 35 Sodium 139 Potassium 5.1 D Chloride 103 Carbon Dioxide 19.8 L Anion Gap 16.2 H BUN 17 Creatinine 1.4 H Est GFR (CKD-EPI 2020) 60.85 Glucose 190 H Calcium 9.1 Magnesium Troponin I 3024 H* 04/18/23 04/18/23 01:16 06:20 WBC RBC Hgb Hct MCV MCH MCHC RDW Plt Count MPV APTT 52.8 H 43.1 H ABG Sample Site ABG pH ABG pCO2 ABG pO2 ABG HCO3 ABG Total CO2 ABG O2 Saturation ABG Base Excess VBG pH 7.36 VBG pCO2 40 L VBG pO2 70 VBG HCO3 23 VBG Total CO2 21 L VBG O2 Saturation 94 VBG Base Excess -3 L VBG Lactate FiO2 Sodium 140 Potassium 5.0 Chloride 106 Carbon Dioxide 23.7 Anion Gap 10.3 BUN 17 Creatinine 1.3 Est GFR (CKD-EPI 2020) 66.51 Glucose 151 H Calcium 8.9 Magnesium 2.1 Troponin I 2706 H* 2031 H* Review of Systems All systems reviewed & are unremarkable except as noted in HPI and below Time spent with patient Time spent in Critical Care: 65 Time spent in Critical care included: Coordination of care, Chart review, Documenting critically ill care, Time at immediate bedside and Discussing critically ill care with other medical staff POCUS Pulmonology Limited Cardiac Exam DATE OF EXAM: 04/18/23 TIME OF EXAM: 08:15 PROVIDER THAT PERFORMED THE STUDY: Claudia Park IS THIS A REPEAT EXAM DURING THIS ENCOUNTER: No REASON FOR EXAM: Evaluation of LV function Visualized Structures: IVC, Left atrium, Right atrium, Left ventrical, Right ventrical, Interventricular septum and Mitral valve View obtained: Other subxyphoid Pertinent Findings/Impression: LV dysfunction, RV dysfunction, IVC Inspiratory collapsability and Other possible ventricular dilation Exam complete Multi-Disciplinary Checklist Lines/Tubes CENTRAL LINE: no ARTERIAL LINE: no SNYDER: yes, Snyder Day#: 1 ENDOTRACHEAL TUBE: yes, Endotracheal Tube Day#: 1 Sedation: yes, Sedation Vacation: yes Head of Bed@30 degrees: yes Spontaneous Breathing Trial: yes ICU Maintenance GLUCOSE 140-180mg/dL: yes NUTRITION AT GOAL: no, Reason/Intervention: diet to start today PRESSURE ULCER: no RESTRAINTS: yes, Reviewed Necessity: Yes ANTIBIOTICS(if yes, consider Stewardship): Yes Social Issues FAMILY UPDATED: no, Reason/Intervention: defer to hospitalist/patient once extubated PT/OT: no, Reason/Intervention: not currently appropriate GOALS/DISPOSITION/DIRECT CARE COUNSELOR: yes CODE STATUS: DNR/DNI Prophylaxis DVT PROPHYLAXIS: yes GI PROPHYLAXIS: yes, Indication: pressors/mechanical ventilation
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
[2023-04-18 09:13] LABS: Lactate 1.8 mmol/L (0.6-1.4)
[2023-04-18] MEDS: MORPHine 2 MG/ML SYR 1 MG IVP ×4 (09:50→22:34)
--- NOTE | 2023-04-18 10:00 | DI.US_ITS ---
APPROVED REPORT EXAM: Comprehensive 2D, Doppler, and color-flow Echocardiogram Patient Location: In-Patient Room/Bed: 219 Cyber Security: Barak Swann RDCS (AE) Indications: NSTEMI Conclusion Technically difficult and limited study Left ventricular wall thickness and chamber size are grossly normal. Ejection fraction is estimated to be less than 20%. There are probable segmental wall motion abnormalities superimposed on severe g lobal hypokinesis Right ventricle is dilated and hypocontractile Both atria are moderately enlarged There is mild mitral regurgitation Remainder of the study is not adequate to assess for additional valvular abnormalities Wall motion Left Ventricle Technically limited exam due to lung disease. Regional wall motion abnormalities are noted. There is no ventricular septal defect visualized. Right Ventricle The right ventricle appears normal size. Right ventricle is hypokinetic. Atria The left atrium size is normal. The right atrium size is normal. The interatrial septum is intact wit h no evidence for an atrial septal defect. Aortic Valve The aortic valve appears normal in structure. Aortic valve is trileaflet. There is no aortic valvular stenosis. No aortic regurgitation is present. Mitral Valve The mitral valve appears normal in structure. No evidence of mitral valve stenosis. Mild to moderate mitral regurgitation. Tricuspid Valve The tricuspid valve is normal in structure. There is no tricuspid valve stenosis. Moderate tricuspid regurgitation. The RVSP is 45.9 mmHg. Pulmonic Valve The pulmonary valve appears normal in structure. There is no pulmonic valvular stenosis. There is no pulmonic valvular regurgitation. Great Vessels Aortic root is not visualized. Ascending aorta is not visualized. IVC is normal in size and collapses >50% with inspiration. Pericardium There is no pericardial effusion. LV Diastology MV E Vmax 0.63 (0.4-1.3 m/s) Aortic Valve AoV Vmax 0.81 m/s LVOT Vmax 0.60 m/s AoV Peak Grad 2.6 mmHg LVOT Peak Grad 1.4 mmHg AoV VTI 0.133 m LVOT VTI 0.101 m AoV Mean Victor Hugo. 0.56 m/s LVOT Mean Grad 0.8 mmHg AoV Mean Grad 1.4 mmHg Velocity Ratio 0.74 Tricuspid Valve RA Pressure 3.00 mmHg TR Vmax 3.28 m/s TR Peak Grad 42.9 mmHg RVSP (TR) 45.9 mmHg
--- NOTE | 2023-04-18 10:07 | W.PM.PROGNOT ---
Date of Service Date of service: 04/18/23 Time of Service: 10:07 Assessment and Plan Assessment and plan (1) Acute hypercapnic respiratory failure: Start date: 04/17/23 Status: Acute Assessment and plan: -presented in respiratory distress on BiPAP clearing his hypercapnic acute respiratory failure. -had been in BiPAP throught the day 04/16, however, as mentioned in progress note from 04/16 patient become significantly tachycardic and tachypnic and was intubated due to respiratory distress/impending respiratory failure -Patient was successfully extubated on the morning of 04/18/2023 (2) Cardiogenic shock: Status: Acute Assessment and plan: - Event on 04/17/2023 secondary to cardiogenic shock -Echocardiogram shows the following; left ventricular wall thickness and chamber size grossly normal ejection fraction estimated to be less than 20% with probable segmental wall motion abnormalities superimposed on severe global hypokinesis with dilated and hypocontractile right ventricle, moderately enlarged left and right atria -Patient may benefit from AICD placement -Continue to wean epinephrine drip (3) COPD with acute exacerbation: Start date: 04/17/23 Status: Acute Assessment and plan: -continue prednisone and nebulizer treatments (4) Acute hyperglycemia: Start date: 04/17/23 Status: Acute Assessment and plan: -had hyperglycemia in the past and is not overweight but steroids may exacerbate this problem. -Glucometer measurements with sliding scale coverage first sensitive scale while hospitalized on high-dose steroids. -Watch for hypoglycemia. (5) Non-small cell lung cancer metastatic to bone: Status: Chronic Assessment and plan: -Patient is receiving chemotherapy and will continue to follow-up with oncology; Prognosis is poor (6) Tobacco dependence: Status: Acute Assessment and plan: -No need for nicotine supplement. -Advised complete cessation and long-term Subjective Subjective Interval history since last seen: Patient states that he feels significantly better as compared to yesterday and is happy that he was extubated earlier this morning. Exam Narrative Exam Narrative: Chronically ill-appearing gentleman laying in bed in no acute distress, appears older than stated age, ANO x 4, heart sounds distant but regular rate and rhythm, lung sounds diminished bilaterally, abdomen soft, nontender, nondistended Objective Last Vital Signs Temp 96.8 F L 04/18/23 08:00 Pulse 97 H 04/18/23 08:31 Resp 19 04/18/23 08:31 BP 110/89 04/18/23 08:31 Pulse Ox 96 04/18/23 08:31 Laboratory Results - last 24 hr 04/17/23 04/17/23 04/17/23 17:45 18:01 18:55 WBC 10.87 H RBC 4.47 Hgb 13.2 L Hct 42.3 MCV 95 MCH 29.5 MCHC 31.2 L RDW 12.5 Plt Count 460 H MPV 10.5 APTT 27.4 ABG Sample Site Right Radial ABG pH 7.14 L* ABG pCO2 51 H ABG pO2 150 H ABG HCO3 17 L ABG Total CO2 17 L ABG O2 Saturation 98 ABG Base Excess -12 L VBG pH VBG pCO2 VBG pO2 VBG HCO3 VBG Total CO2 VBG O2 Saturation VBG Base Excess VBG Lactate 7.7 H* FiO2 Sodium 138 Potassium 6.3 H* D Chloride 100 Carbon Dioxide 18.1 L Anion Gap 19.9 H BUN 14 Creatinine 1.6 H Est GFR (CKD-EPI 2020) 51.84 Glucose 202 H Calcium 9.9 Magnesium Troponin I 2704 H* 04/17/23 04/17/23 04/17/23 20:15 21:55 22:35 WBC RBC Hgb Hct MCV MCH MCHC RDW Plt Count MPV APTT ABG Sample Site Right Radial Right Radial ABG pH 7.13 L* 7.27 L ABG pCO2 68 H* 47 H ABG pO2 87 110 H ABG HCO3 23 21 L ABG Total CO2 22 L 20 L ABG O2 Saturation 92 L 98 ABG Base Excess -7 L -6 L VBG pH VBG pCO2 VBG pO2 VBG HCO3 VBG Total CO2 VBG O2 Saturation VBG Base Excess VBG Lactate FiO2 35 Sodium 139 Potassium 5.1 D Chloride 103 Carbon Dioxide 19.8 L Anion Gap 16.2 H BUN 17 Creatinine 1.4 H Est GFR (CKD-EPI 2020) 60.85 Glucose 190 H Calcium 9.1 Magnesium Troponin I 3024 H* 04/18/23 04/18/23 01:16 06:20 WBC RBC Hgb Hct MCV MCH MCHC RDW Plt Count MPV APTT 52.8 H 43.1 H ABG Sample Site ABG pH ABG pCO2 ABG pO2 ABG HCO3 ABG Total CO2 ABG O2 Saturation ABG Base Excess VBG pH 7.36 VBG pCO2 40 L VBG pO2 70 VBG HCO3 23 VBG Total CO2 21 L VBG O2 Saturation 94 VBG Base Excess -3 L VBG Lactate 1.8 H FiO2 Sodium 140 Potassium 5.0 Chloride 106 Carbon Dioxide 23.7 Anion Gap 10.3 BUN 17 Creatinine 1.3 Est GFR (CKD-EPI 2020) 66.51 Glucose 151 H Calcium 8.9 Magnesium 2.1 Troponin I 2706 H* 2031 H* Time Spent with Patient Time Spent with Patient: >50 minutes Time was spent: preparing to see the patient(eg.review tests), obtaining and/or reviewing separately otained hiistory, ordering medications,tests, procedures, referring, communicating with other health respiratory care program director, indepentently interpreting results, counseling the patient and care coordination
[2023-04-18] MEDS: predniSONE 20 MG TAB 40 MG PO (10:31)
[2023-04-18 11:40] LABS: NT-proBNP 11138 pg/mL (<300)
--- NOTE | 2023-04-18 13:46 | CHAPLAIN ---
Alexis was hesitant to see a bottle label inspector at first, thinking it meant there was bad news for him. I explained that I visit all patients. Then he told me he isn't Moravian, and I explained I'm an [facility] bottle label inspector. Alexis told me that he is Hoahaoism, and follows Eastern philosophy. I believe that the energy that you put into the Universe comes back to you, he explained. And he told me that he wasn't rushing me, but I'm fine and don't need a visit. I let him know that stores naval was available 02/09 if he changed his mind. His sister had just left after visiting him.
[2023-04-18] MEDS: Heparin in 0.45% NaCl 25,000 UNIT/250 ML BAG 11 UNIT IV (13:54)
[2023-04-18 15:15] LABS: PTT Activated 50.8 sec (23.6-32.8)
--- NOTE | 2023-04-18 15:45 | W.PALLCONSUL ---
Date of service: 04/18/23 Time of Service: 15:45 History of Present Illness Narrative: Alexis is a 52 year old man who was admitted on 04/17/2023 with acute hypercapnic and hypoxemic respiratory failure requiring BiPAP felt to be secondary to COPD exacerbation. He has a history of non-small cell carcinoma of the lung with bone metastasis diagnosed 2 years ago currently followed by [facility] oncologist Dr. Frazier. He required intubation over night and has successfully been extubated. His acute decompensation was associated with NSTEMI. He had an echocardiogram today that showed cardiomyopathy with an LVEF of less than 20% with segmental wall motion abnormalities superimposed on severe global hypokinesis as well as a dilated and hypocontractile right ventricle and moderate biatrial enlargement and mild mitral regurgitation. Palliative was consulted to review his overall medical condition and to discuss goals of care. Staff are concerned that he does not understand how sick he is. He reports that the NSCLC was diagnosed about 2 years ago and that oncology told him that his life expectancy was about 2 years at that time. His lung cancer is metastatic to his bones including his ribs. He is fixated on pain control and having difficulty discussing anything other than his pain. Dr. Frazier manages his pain. He normally takes MS ER 100 mg TID and hydromorphone 4 mg TID (at the same time). He is fixated on the fact that he is not getting the hydromorphone. Will ask hospitalist to order home regimen. Alexis feels he is doing well from oncologic perspective. I do not have a current note to review with him. He asked that we call Dr. Frazier to notify him that he is in the ICU at [facility]. We discussed his overall condition and the fact that his echo showed LVEF <20%. He does not appear to grasp the extent of his disease processes and stated he feels it is early for Palliative care. Discussed the ways in which Palliative care can be beneficial to him, including help with symptom management. His goal is to get home and see his Arlene, Wiliam. He shared pictures of Wiliam during the visit. We discussed transfer to [facility]. He states he would prefer not to transfer but he would agree if he really needs higher level of care. He feels hungry but food repulses him. He initially lost weight but has now gained back some weight. He appears to be quite thin. He lives with his sister, Kristine. He wants sister, Kristine Padgett to be his HCA. He states she is aware of his wishes and would be the one to take care of him as he needs more help. HCA paperwork completed to name Kristine. Reviewed CODE status. He is a FULL CODE. Reviewed the aggressive nature of chest compressions, especially in the setting of bone mets. He also has friends that check in on him regularly, Darien and Skip. Discussed hospice as an option. He does not feel he is ready for hospice at this time. He did not fully commit but states he may be open to palliative f/u. Will have the office call him after discharge and offer f/u. Assessment and Plan Assessment and plan (1) Acute hypercapnic respiratory failure: Start date: 04/17/23 Status: Resolved Assessment and plan: Intubated 04/16 and successfully extubated on the morning of 04/18/2023 (2) Cardiogenic shock: Status: Resolved (3) COPD with acute exacerbation: Start date: 04/17/23 Status: Acute (4) Acute hyperglycemia: Start date: 04/17/23 Status: Acute (5) Non-small cell lung cancer metastatic to bone: Status: Chronic (6) Tobacco dependence: Status: Acute (7) Advanced care planning/counseling discussion: Status: Acute (8) Goals of care, counseling/discussion: Status: Acute (9) Palliative care encounter: Status: Acute Assessment and plan: Alexis is a 52 year old man who was admitted on 04/17/2023 with acute hypercapnic and hypoxemic respiratory failure requiring BiPAP felt to be secondary to COPD exacerbation. He has a history of non-small cell carcinoma of the lung with bone metastasis diagnosed 2 years ago currently followed by [facility] oncologist Dr. Frazier. He required intubation over night and has successfully been extubated. His acute decompensation was associated with NSTEMI. He had an echocardiogram today that showed cardiomyopathy with an LVEF of less than 20% with segmental wall motion abnormalities superimposed on severe global hypokinesis as well as a dilated and hypocontractile right ventricle and moderate biatrial enlargement and mild mitral regurgitation. Palliative was consulted to review his overall medical condition and to discuss goals of care. Staff are concerned that he does not understand how sick he is. He reports that the NSCLC was diagnosed about 2 years ago and that oncology told him that his life expectancy was about 2 years at that time. His lung cancer is metastatic to his bones including his ribs. He is fixated on pain control and having difficulty discussing anything other than his pain. Dr. Frazier manages his pain. Will ask hospitalist to order home regimen. Alexis feels he is doing well from oncologic perspective. I do not have a current note to review with him but his prognosis is poor overall. Dr. Frazier was notified that he is here per his request. We discussed his overall condition and the fact that his echo showed LVEF <20%. He does not appear to grasp the extent of his disease processes and stated he feels it is early for Palliative care. Discussed the ways in which Palliative care can be beneficial to him, including help with symptom management. His goal is to get home and see his Arlene, Wiliam. We discussed transfer to [facility]. He states he would prefer not to transfer but he would agree if he really needs higher level of care. He reports that his weight is stable but he appears to be quite thin. He lives with his sister, Kristine. He wants sister, Kristine Padgett to be his HCA. He states she is aware of his wishes and would be the one to take care of him as he needs more help. HCA paperwork completed to name Kristine. Reviewed CODE status. He is a FULL CODE. Reviewed the aggressive nature of chest compressions, especially in the setting of bone mets. He names his friends, Darien and Jessikap as support people. Discussed hospice as an option. He does not feel he is ready for hospice at this time. He did not fully commit but states he may be open to palliative f/u. Will have the office call him after discharge and offer f/u. PFSH All Active Problems (Updated 04/25/23 @ 10:43 by Allison Valentine NP) Goals of care, counseling/discussion (Acute) Advanced care planning/counseling discussion (Acute) Palliative care encounter (Acute) NSTEMI (non-ST elevated myocardial infarction) (Acute) Acute hyperglycemia (Acute) Non-small cell lung cancer metastatic to bone (Chronic) Anemia (Chronic) Left lower lobe pneumonia (Acute) COPD with acute exacerbation (Acute) Back pain, thoracic (Acute) COPD (chronic obstructive pulmonary disease) (Chronic) Tobacco dependence (Acute) Medical History History of diverticulitis GERD (gastroesophageal reflux disease) Right rotator cuff tendonitis Elevated blood pressure reading Surgical History S/P reconstruction of ligament of knee Family History Mother Breast cancer Other Cancer Social History Smoking/Tobacco Use Status: Former Tobacco Use Smoking risk assessment performed?: Yes Alcohol Intake: current Alcohol Intake frequency: holidays/special occasions only Substance use type: marijuana Housing: apartment Current gender identity: male Additional Social history: lives with sister in apartment in [facility]. Born in [place], lived in [place] x 30 years. 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 Remote 4 year incarceration. Results Last Vital Signs Temp 36.5 C 04/18/23 12:00 Pulse 92 H 04/18/23 14:01 Resp 11 L 04/18/23 14:01 BP 118/89 04/18/23 14:01 Pulse Ox 96 04/18/23 14:01 Labs 04/21/23 05:25 04/21/23 06:20 Labs: Laboratory Results - last 24 hr 04/17/23 04/17/23 04/17/23 17:45 18:01 18:55 WBC 10.87 H RBC 4.47 Hgb 13.2 L Hct 42.3 MCV 95 MCH 29.5 MCHC 31.2 L RDW 12.5 Plt Count 460 H MPV 10.5 APTT 27.4 ABG Sample Site Right Radial ABG pH 7.14 L* ABG pCO2 51 H ABG pO2 150 H ABG HCO3 17 L ABG Total CO2 17 L ABG O2 Saturation 98 ABG Base Excess -12 L VBG pH VBG pCO2 VBG pO2 VBG HCO3 VBG Total CO2 VBG O2 Saturation VBG Base Excess VBG Lactate 7.7 H* FiO2 Sodium 138 Potassium 6.3 H* D Chloride 100 Carbon Dioxide 18.1 L Anion Gap 19.9 H BUN 14 Creatinine 1.6 H Est GFR (CKD-EPI 2020) 51.84 Glucose 202 H Calcium 9.9 Magnesium Troponin I 2704 H* NT-Pro-B Natriuret Pep 04/17/23 04/17/23 04/17/23 20:15 21:55 22:35 WBC RBC Hgb Hct MCV MCH MCHC RDW Plt Count MPV APTT ABG Sample Site Right Radial Right Radial ABG pH 7.13 L* 7.27 L ABG pCO2 68 H* 47 H ABG pO2 87 110 H ABG HCO3 23 21 L ABG Total CO2 22 L 20 L ABG O2 Saturation 92 L 98 ABG Base Excess -7 L -6 L VBG pH VBG pCO2 VBG pO2 VBG HCO3 VBG Total CO2 VBG O2 Saturation VBG Base Excess VBG Lactate FiO2 35 Sodium 139 Potassium 5.1 D Chloride 103 Carbon Dioxide 19.8 L Anion Gap 16.2 H BUN 17 Creatinine 1.4 H Est GFR (CKD-EPI 2020) 60.85 Glucose 190 H Calcium 9.1 Magnesium Troponin I 3024 H* NT-Pro-B Natriuret Pep 04/18/23 04/18/23 04/18/23 01:16 06:20 14:54 WBC RBC Hgb Hct MCV MCH MCHC RDW Plt Count MPV APTT 52.8 H 43.1 H 50.8 H ABG Sample Site ABG pH ABG pCO2 ABG pO2 ABG HCO3 ABG Total CO2 ABG O2 Saturation ABG Base Excess VBG pH 7.36 VBG pCO2 40 L VBG pO2 70 VBG HCO3 23 VBG Total CO2 21 L VBG O2 Saturation 94 VBG Base Excess -3 L VBG Lactate 1.8 H FiO2 Sodium 140 Potassium 5.0 Chloride 106 Carbon Dioxide 23.7 Anion Gap 10.3 BUN 17 Creatinine 1.3 Est GFR (CKD-EPI 2020) 66.51 Glucose 151 H Calcium 8.9 Magnesium 2.1 Troponin I 2706 H* 2032 H* NT-Pro-B Natriuret Pep 77294 H
[2023-04-18] MEDS: Pantoprazole 40 MG VIAL IVP (18:27)
[2023-04-18] MEDS: Heparin in 0.45% NaCl 25,000 UNIT/250 ML BAG 12.5 UNIT IV (19:36)
[2023-04-18] MEDS: HYDROmorphone 4 MG TAB PO (23:58)
[2023-04-19] VITALS (49 sets, daily range): BP systolic 108–134; BP diastolic 84–105; PULSE 85–124; RESP 2–18; TEMP 36.1–36.7; O2SAT 92–99
--- NOTE | 2023-04-19 | DI.RAD_ITS ---
Exam(s) XR PORTABLE CHEST AP EXAM: XR PORTABLE CHEST AP CLINICAL HISTORY: SOB TECHNIQUE: 2D digital imaging was performed of the chest. Two images were obtained. AP views were obtained. COMPARISON: Comparison is made with prior examinations. FINDINGS: Both the enteric and endotracheal tubes have been removed. MEDIASTINUM: Normal. HEART: Normal. PULMONARY VASCULATURE: Normal. LUNGS: There is underlying COPD. There is again seen scarring in the lung apices. There is stable s carring seen in the right perihilar region. No new infiltrates are seen. PLEURAL SPACE: No pleural effusion or pneumothorax. BONE:Within normal limits for the patient's age. OTHER FINDINGS:Normal. IMPRESSION: No acute change in appearance of the chest x-ray. No new infiltrates. DATA REPOSITORY: RADIATION DOSE DELIVERED:
[2023-04-19 00:30] LABS: PTT Activated > 155.0 sec (23.6-32.8)
[2023-04-19] MEDS: MORPHine 2 MG/ML SYR 1 MG IVP ×2 (04:00→06:07)
[2023-04-19] MEDS: Albuterol/Ipratropium 3 ML UPD VIAL UPD (05:50)
--- NOTE | 2023-04-19 06:33 | NUR.NOTE ---
Nursing Note: Discussion with patient this morning about worse-case scenario would he desire intubation. Patient response was if my heart stops I don't want resuscitation, but if it's my lungs I want to be put on a breathing machine. That was the best night sleep i've had in a long time.
--- NOTE | 2023-04-19 07:54 | NUR.NOTE ---
RN has discussion with patient concerning scheduled morphine dose and prn Dilaudid dosing. Patient indicates while on Med/Surg he was taking his morphine dose with his Dilaudid dose. Presently Dilaudid is scheduled as a prn TID. RN will discuss with MD about scheduling Dilaudid and Morphine together as scheduled medications. Nursing Note:
--- NOTE | 2023-04-19 07:59 | NUR.NOTE ---
Hospice has been discussed with patient during palliative care consult on April 18, 2023. RN will encourage hospitalist to include said discussion in his morning visit with patient.Nursing Note:
[2023-04-19] MEDS: HYDROmorphone 4 MG TAB PO ×3 (08:09→19:36)
[2023-04-19] MEDS: predniSONE 20 MG TAB 40 MG PO (08:09)
[2023-04-19 08:11] LABS: PTT Activated 30.8 sec (23.6-32.8)
[2023-04-19] MEDS: Budesonide/Formoterol 160/4.5 6 GM 60 PUFF INH IH ×2 (08:27→20:00)
[2023-04-19] MEDS: Tiotropium Bromide-Respimat 10 PUFF INH 2 PUFF IH (08:28)
[2023-04-19] MEDS: DOXYCYCLINE 100 MG in Normal Saline 100 ML IVPB ×2 (08:52→19:37)
--- NOTE | 2023-04-19 09:19 | NUR.NOTE ---
Patient refuses breakfast, electing to simply drink water. RN encourages patient to eat.Nursing Note:
--- NOTE | 2023-04-19 09:30 | NUR.NOTE ---
Our facility is out of Dronabinol. RN calls patient's sister with whom he lives with and asks her to bring in said home medication so that patient may receive same while in hospital. Sister indicates she will bring said medication in at 10:30 a.m. this morning.Nursing Note:
--- NOTE | 2023-04-19 09:59 | NUR.NOTE ---
MD given RN verbal order to stop Heparin drip. Heparin drip is d/c by RN.Nursing Note:
--- NOTE | 2023-04-19 10:27 | PGE_ITS ---
Date of Service Date of service: 04/19/23 Time of Service: 10:36 Assessment and Plan Assessment and plan (1) Acute hypercapnic respiratory failure: Status: Acute Assessment and plan: -presented in respiratory distress on BiPAP clearing his hypercapnic acute respiratory failure. -had been in BiPAP throught the day 04/16, however, as mentioned in progress note from 04/16 patient become significantly tachycardic and tachypnic and was intubated due to respiratory distress/impending respiratory failure -Patient was successfully extubated on the morning of 04/18/2023 (2) Cardiogenic shock: Status: Acute Assessment and plan: - Event on 04/17/2023 secondary to cardiogenic shock -Echocardiogram shows the following; left ventricular wall thickness and chamber size grossly normal ejection fraction estimated to be less than 20% with probable segmental wall motion abnormalities superimposed on severe global hypokinesis with dilated and hypocontractile right ventricle, moderately enlarged left and right atria -Patient may benefit from AICD placement -Epinephrine has since been discontinued (3) COPD with acute exacerbation: Status: Acute Assessment and plan: -continue prednisone and nebulizer treatments (4) Acute hyperglycemia: Status: Acute Assessment and plan: -had hyperglycemia in the past and is not overweight but steroids may exacerbate this problem. -Glucometer measurements with sliding scale coverage first sensitive scale while hospitalized on high-dose steroids. -Watch for hypoglycemia. (5) Non-small cell lung cancer metastatic to bone: Status: Chronic Assessment and plan: -Patient is receiving chemotherapy and will continue to follow-up with oncology; Prognosis is poor (6) Tobacco dependence: Status: Acute Assessment and plan: -No need for nicotine supplement. -Advised complete cessation and long-term Subjective Subjective Interval history since last seen: Patient states that he is feeling better today though continues to have some chest discomfort with deep breaths. Otherwise he has no other complaints or concerns at this time. Exam Narrative Exam Narrative: Chronically ill-appearing gentleman laying in bed in no acute distress, appears older than stated age, ANO x 4, heart sounds distant but regular rate and rhythm, lung sounds diminished bilaterally, abdomen soft, nontender, nondistended Objective Last Vital Signs Temp 97.7 F 04/19/23 08:16 Pulse 109 H 04/19/23 08:16 Resp 14 04/19/23 08:16 BP 133/98 H 04/19/23 08:16 Pulse Ox 94 03/09/24 08:16 Laboratory Results - last 24 hr 04/18/23 04/18/23 04/18/23 01:16 14:54 23:45 APTT 50.8 H > 155.0 H* NT-Pro-B Natriuret Pep [id number] H 04/19/23 07:35 APTT 30.8 NT-Pro-B Natriuret Pep Time Spent with Patient Time Spent with Patient: >50 minutes Time was spent: preparing to see the patient(eg.review tests), obtaining and/or reviewing separately otained hiistory, ordering medications,tests, procedures, referring, communicating with other health respiratory care assistant, indepentently interpreting results, counseling the patient and care coordination
[2023-04-19] MEDS: Acetaminophen 325 MG TAB PO (10:30)
[2023-04-19] MEDS: Normal Saline Flush 10 ML SYR IVP ×3 (10:32→20:06)
--- NOTE | 2023-04-19 10:37 | NUR.NOTE ---
RN makes patient a vanilla ice cream shake with milk. Patient enjoys same and takes all of it but does prefer chocolate ice cream instead.Nursing Note:
--- NOTE | 2023-04-19 11:27 | DI.VRAD_ITS ---
PROCEDURE INFORMATION: Exam: XR Chest Exam date and time: 04/19/2023 11:01 AM Age: 52 years old Clinical indication: Shortness of breath; Patient HX: Lung CA TECHNIQUE: Imaging protocol: Radiologic exam of the chest. Views: 1 view. COMPARISON: CR XR PORTABLE CHEST AP 04/17/2023 6:30 PM FINDINGS: Lungs: Bilateral apical fibrotic changes. Similar patchy opacities and architectural distortion of the right upper and mid lung zone with right apical bullous disease. Bilateral apical predominant emphysematous changes. Pleural spaces: Unremarkable. No pleural effusion. No pneumothorax. Heart/Mediastinum: Unremarkable. No cardiomegaly. Bones/joints: Unremarkable. IMPRESSION: No acute findings. Similar right upper and mid lung zone opacities. Dictated and Authenticated by: [place] MD. Ordering:AMISHA Bacon MD
[2023-04-19] MEDS: Insulin Aspart 300 UNITS/3 ML PEN SC ×3 (11:59→23:38)
--- NOTE | 2023-04-19 13:47 | NUR.NOTE ---
RN prepares some peanut butter and jelly saltine crackers for patient and citrus lemon with honey tea. Patient's appetite is poor.Nursing Note:
[2023-04-19] MEDS: Pantoprazole 40 MG VIAL IVP (18:04)
[2023-04-19] MEDS: Pregabalin 50 MG CAP PO (19:36)
[2023-04-20] VITALS (26 sets, daily range): BP systolic 81–126; BP diastolic 59–93; PULSE 66–117; RESP 7–29; TEMP 36.4–37; O2SAT 91–99
[2023-04-20] MEDS: MORPHine 2 MG/ML SYR 1 MG IVP (01:54)
[2023-04-20] MEDS: HYDROmorphone 2 MG/ML SYR 1.5 MG IVP (04:05)
[2023-04-20] MEDS: DOXYCYCLINE 100 MG in Normal Saline 100 ML IVPB ×2 (07:47→19:37)
[2023-04-20] MEDS: Pregabalin 50 MG CAP PO ×2 (08:00→19:37)
[2023-04-20] MEDS: predniSONE 20 MG TAB 40 MG PO (08:00)
[2023-04-20] MEDS: HYDROmorphone 4 MG TAB PO ×3 (08:00→23:21)
[2023-04-20] MEDS: Budesonide/Formoterol 160/4.5 6 GM 60 PUFF INH IH ×2 (08:10→19:32)
[2023-04-20] MEDS: Tiotropium Bromide-Respimat 10 PUFF INH 2 PUFF IH (08:43)
--- NOTE | 2023-04-20 14:20 | W.PM.PROGNOT ---
Date of Service Date of service: 04/20/23 Time of Service: 14:21 Assessment and Plan Assessment and plan (1) Acute hypercapnic respiratory failure: Status: Acute Assessment and plan: -presented in respiratory distress on BiPAP clearing his hypercapnic acute respiratory failure. -had been in BiPAP throught the day 04/16, however, as mentioned in progress note from 04/16 patient become significantly tachycardic and tachypnic and was intubated due to respiratory distress/impending respiratory failure -Patient was successfully extubated on the morning of 04/18/2023 (2) Cardiogenic shock: Status: Acute Assessment and plan: - Event on 04/17/2023 secondary to cardiogenic shock -Echocardiogram shows the following; left ventricular wall thickness and chamber size grossly normal ejection fraction estimated to be less than 20% with probable segmental wall motion abnormalities superimposed on severe global hypokinesis with dilated and hypocontractile right ventricle, moderately enlarged left and right atria -Patient may benefit from AICD placement -Epinephrine has since been discontinued (3) COPD with acute exacerbation: Status: Acute Assessment and plan: -continue prednisone and nebulizer treatments (4) Acute hyperglycemia: Status: Acute Assessment and plan: -had hyperglycemia in the past and is not overweight but steroids may exacerbate this problem. -Glucometer measurements with sliding scale coverage first sensitive scale while hospitalized on high-dose steroids. -Watch for hypoglycemia. (5) Non-small cell lung cancer metastatic to bone: Status: Chronic Assessment and plan: -Patient is receiving chemotherapy and will continue to follow-up with oncology; Prognosis is poor (6) Tobacco dependence: Status: Acute Assessment and plan: -No need for nicotine supplement. -Advised complete cessation and long-term Subjective Subjective Interval history since last seen: Patient states that he is feeling significantly better today. He is looking forward to moving around in his room and ambulating as much as possible and has no complaints concerns at this time. Exam Narrative Exam Narrative: Chronically ill-appearing gentleman laying in bed in no acute distress, appears older than stated age, ANO x 4, heart sounds distant but regular rate and rhythm, lung sounds diminished bilaterally, abdomen soft, nontender, nondistended Objective Last Vital Signs Temp 97.5 F L 04/20/23 12:18 Pulse 105 H 04/20/23 12:32 Resp 29 H 04/20/23 12:32 BP 126/93 H 04/20/23 12:32 Pulse Ox 93 04/20/23 12:32 Time Spent with Patient Time Spent with Patient: >50 minutes Time was spent: preparing to see the patient(eg.review tests), obtaining and/or reviewing separately otained hiistory, ordering medications,tests, procedures, referring, communicating with other health day care teacher, indepentently interpreting results, counseling the patient and care coordination
[2023-04-20] MEDS: Insulin Aspart 300 UNITS/3 ML PEN SC (17:14)
[2023-04-20] MEDS: Pantoprazole 40 MG VIAL IVP (18:48)
[2023-04-20] MEDS: Normal Saline Flush 10 ML SYR IVP (18:48)
[2023-04-21] VITALS (25 sets, daily range): BP systolic 93–131; BP diastolic 72–94; PULSE 66–120; RESP 8–24; TEMP 36.5; O2SAT 89–97
[2023-04-21 06:12] LABS: HCT 36.3 % (40.0-50.0); HGB 11.9 g/dL (13.5-17.5); MCH 30.4 pg (27.0-33.0); MCHC 32.8 % (32.0-36.0); MCV 93 fL (80-95); MPV 11.2 fL (8.0-11.0); Platelet Count 559 10^3/uL (130-400); RBC 3.92 10^6/uL (4.36-5.78); RDW 12.9 % (11.8-14.1); RDW-SD 43.1 fL; WBC 11.97 10^3/uL (4.4-10.8)
[2023-04-21 07:01] LABS: Anion Gap 6.7 mmol/L (3-11); BUN 15 mg/dL (7-18); CO2 33.3 mmol/L (21.0-32.0); CREATININE 0.9 mg/dL (0.70-1.30); Calcium 9.1 mg/dL (8.5-10.1); Chloride 101 mmol/L (98-107); Glucose 110 mg/dL (74-106); Potassium 3.8 mmol/L (3.5-5.1); Sodium 141 mmol/L (136-145)
[2023-04-21] MEDS: Budesonide/Formoterol 160/4.5 6 GM 60 PUFF INH IH ×2 (07:46→19:31)
[2023-04-21] MEDS: Tiotropium Bromide-Respimat 10 PUFF INH 2 PUFF IH (07:46)
[2023-04-21] MEDS: DOXYCYCLINE 100 MG in Normal Saline 100 ML IVPB (08:01)
[2023-04-21] MEDS: Pregabalin 50 MG CAP PO ×2 (08:01→19:49)
[2023-04-21] MEDS: HYDROmorphone 4 MG TAB PO ×2 (08:02→15:50)
[2023-04-21] MEDS: Normal Saline Flush 10 ML SYR IVP ×2 (08:03→19:51)
[2023-04-21] MEDS: predniSONE 20 MG TAB 40 MG PO (08:03)
--- NOTE | 2023-04-21 09:31 | W.NUTRFU ---
Date of service: 04/21/23 Time of Service: 09:31 Nutrition Note NOTE: pt is a 52yo male with acute resp failure/acute COPD exac., and septic shock. Required intubation - was extubated on 04/17. Intake has been fair since the . Weight has been stable over the last year. Receives treatment for lung cancer with mets to bone. Hyperglycemia being monitored and treated with sensitive sliding scale of insulin aspart at mealtimes and evening. Tolerating regular diet with normal consistency. Pt currently at low nutrition risk with his current intake not being problematic. Will continue to monitor labs, weight, po intake,. Time Spent in Nutritional Counseling and Treatment: 0
--- NOTE | 2023-04-21 10:18 | W.PM.PROGNOT ---
Date of Service Date of service: 04/21/23 Time of Service: 10:18 Assessment and Plan Assessment and plan (1) Cardiogenic shock: Status: Acute Assessment and plan: secondary to NSTEMI related to his hypercapneic and hypoxemic respiratory failure. Alexis Pelayo is a 52-year-old male admitted on 04/17/2023 with acute hypercapnic and hypoxemic respiratory failure requiring BiPAP felt to be secondary to COPD exacerbation. He has a history of non-small cell carcinoma of the lung with bone metastasis diagnosed 2 years ago currently followed by [facility] [place] oncologist Dr. Frazier. Despite initial treatment with aerosolized bronchodilators and BiPAP and IV Solu-Medrol and doxycycline his respiratory status worsened and the patient required emergent intubation on the evening of 04/17/2023 and transferred to the intensive care unit. This is acute decompensation was associated with NSTEMI which was treated with heparin and aspirin. He was initially loaded with aspirin 324 mg and placed on heparin drip for 48 hours. He has now been off the heparin drip for the past 48 hours. He is not currently being maintained on the aspirin. Echocardiogram from 04/18/2023 did show a cardiomyopathy with an LVEF of less than 20% with segmental wall motion abnormalities superimposed on severe global hypokinesis as well as a dilated and hypocontractile right ventricle and moderate biatrial enlargement and mild mitral regurgitation. Patient did require epinephrine drip for stabilization of his cardiogenic shock but was weaned off epinephrine drip yesterday and has remained off of this since 10 PM last night. He has remained hemodynamically stable. Patient should remain on aspirin and statin. Although [facility] [place] cardiology was initially consulted after the event and they felt this was a type II demand ischemic event and then given that he has some regional wall motion abnormalities suggest otherwise. Recommend that he have resting MPI study before discharge and consideration of a stress MPI in the near future if his prognosis from his metastatic cancer is favorable towards a survival of greater than 6 months. For now we will treat him medically for ischemic heart disease monitor for any evidence of CHF continue treatment of his COPD exacerbation. As he has been hemodynamically stable off the epinephrine drip since yesterday evening he can be transferred to the medical/surgical floor continue medical treatment. Given the severity of his LVEF he should be anticoagulated w/ apixaban to prevent LV thrombus. He seems to be euvolemic and does not appear to need diuresis. If his BP allows, could add low dose isosorbide mononitrate to prvent angina. Given the severity of his presentation, I would hold on beta blockers for now but low dose BB should be considered. Given his hyperglycemia, I will check glycohemoglobin A1c to r/o DM, also consider adding Jardiance prior to discharge for GDT of his cardiomyopathy. Professional time spent interviewing and examining patient, discussion of goals of care with hospital team (care management, nursing and consulting professionals) was 60 minutes. (2) NSTEMI (non-ST elevated myocardial infarction): Status: Acute Assessment and plan: [facility] [place] [place] cardiology felt d/t type II demand ischemia but given his regional wall abnormalities, I think this was a true NSTEMIC. He should have follow up MPI study. (3) Acute hypercapnic respiratory failure: Status: Acute Assessment and plan: treatement as above (4) COPD with acute exacerbation: Status: Acute Assessment and plan: treatment as above, prednisone, bronchodilators, antibiotics (5) Acute hyperglycemia: Status: Acute Assessment and plan: novolog sliding scale/ fingerstick glucose AC/HS (6) Non-small cell lung cancer metastatic to bone: Status: Chronic Assessment and plan: follow up w/ Dr. Frazier upon discharge. Need to get records of his current chemotherapy regimen. While pemetrexed is not associated w/ cardiomyopathy, however, the anti- PDL-1 drug pembrolizumab and the anti-VGEF drug bevacizumab are associated w/ IN and cardiomyopathy. Irregardless, his NSTEMI should be treated w/ ASA, statin and given the severity of his LVEF, he should be anticoagulated as he is at risk of LV thrombus. (7) Tobacco dependence: Status: Acute Assessment and plan: -No need for nicotine supplement. -Advised complete cessation and long-term (8) Anemia: Status: Chronic Qualifiers: Anemia type: other cause Other causes of anemia: antineoplastic chemotherapy Qualified Code(s): D64.81 - Anemia due to antineoplastic chemotherapy; T45.1X5A - Adverse effect of antineoplastic and immunosuppressive drugs, initial encounter Subjective Subjective Patient reports: no new complaints and feels better Interval history since last seen: Less dyspnea, able to talk w/ family/visitors in complete paragraphs w/out dyspnea but remarks that he still gets some chest tigntness and dyspnea w/ any activity out of bed. Currently is pain free. Cough is now becoming clear. He reports that it had been thick and green. He remains afebrile on doxycycline, prednisone and bronchodilators. Exam Narrative Exam Narrative: Middle-age white male sitting up in bed talking with his family alert and oriented x 3 no acute distress able to talk in complete paragraphs without dyspnea or hesitation Neck veins are flat Lungs diffuse expiratory wheezes but fairly decent air movement no rhonchi or rales Heart is regular rate and rhythm with distant heart tones no murmur rub is appreciated no palpable thrill or heave Abdomen soft nondistended no HJR Lower extremities without peripheral cyanosis or edema Objective Last Vital Signs Temp 37.0 C 04/20/23 23:46 Pulse 102 H 04/21/23 08:02 Resp 15 04/21/23 08:02 BP 122/83 04/21/23 08:02 Pulse Ox 89 L 04/21/23 08:02 Laboratory Results - last 24 hr 04/21/23 04/21/23 05:25 06:20 WBC 11.97 H RBC 3.92 L Hgb 11.9 L Hct 36.3 L MCV 93 MCH 30.4 MCHC 32.8 RDW 12.9 Plt Count 559 H MPV 11.2 H Sodium 141 Potassium 3.8 D Chloride 101 Carbon Dioxide 33.3 H Anion Gap 6.7 BUN 15 Creatinine 0.9 Est GFR (CKD-EPI 2020) 103.40 Glucose 110 H Calcium 9.1 Time Spent with Patient Time Spent with Patient: >50 minutes Time was spent: preparing to see the patient(eg.review tests), ordering medications,tests, procedures, referring, communicating with other health customer care agent, indepentently interpreting results, counseling the patient and care coordination
[2023-04-21] MEDS: Aspirin E.C. 81 MG TABEC PO (11:03)
[2023-04-21 11:21] LABS: Lab Add On Test DONE
[2023-04-21 11:21] LABS: Lab Add On Test DONE
[2023-04-21 11:37] LABS: Calculated LDL 116 mg/dL (<100); Cholesterol 184 mg/dL (<200); HDL Cholesterol 41 mg/dL (40-60); Triglyceride 135 mg/dL (<150)
[2023-04-21] MEDS: Acetaminophen 325 MG TAB PO (12:28)
[2023-04-21] MEDS: Apixaban 5 MG TAB PO ×2 (12:29→23:44)
[2023-04-21] MEDS: Folic Acid 1 MG TAB PO (12:29)
[2023-04-21 12:37] LABS: Hemoglobin A1C 6.5 % (<5.7)
[2023-04-21 12:40] LABS: MRSA PCR Negative (Negative)
--- NOTE | 2023-04-21 12:43 | PDOC.CMPRO ---
Date of service: 04/21/23 Time of Service: 12:43 Care Management Progress Note Progress Note Text Progress Note Text: S/O: Alexis was sleeping when CM attempted to meet with him multiple times; his RN asked that he not be woken up, as he had a very busy day. Per report, he was evaluated by PT who recommended home with no services, due to his independent status. PT encourages that he walk with nursing twice a day, if available. CM will continue to follow. A: Alexis is a 52 year old male admitted to [facility] on 04/17/23 for acute hypercapnic respiratory failure, COPD exacerbation. P: Alexis will return home once medically cleared, with no additional services. His sister will drive him home via private vehicle when ready. He will follow up with his PCP and discharge plan of care. CM will continue to follow. SDOH(Care Management) Screening Will the Patient Participate in the Screening?: Unable to obtain
--- NOTE | 2023-04-21 13:20 | IN_ITS ---
PT Notes Visit Reasons: Acute hypercapnic respiratory failure, COPD exacer Physical Therapy Inpatient Initial Evaluation Date: 04/21/2023 Referring Doctor: Jordi Sparrow MD (04/20/2023) Basil Morales MD (04/21/2023) PT Orders: PT CONSULT: Extended Stay Weakness Precautions: Fall. Standard. Activity as tolerated. Patient Profile/Admitting Diagnosis: Injury is a 52-year-old male with medical history significant for stage IV non- small cell lung cancer currently on chemotherapy who presented to the ED on 04/17/2023 due to worsening shortness of breath. Patient is admitted for management of acute hypercapnic and hypoxemic respiratory failure, cardiogenic shock, NSTEMI, COPD, acute hyperglycemia, tobacco dependence, and anemia. He was intubated on 04/17/2023 and was moved to the ICU but was weaned off epi drip as of yesterday and upgraded to [facility] level of care as of 04/21/2023. PMHX: All Active Problems (Updated 04/17/23 @ 10:09 by Román Velasco) Acute hyperglycemia (Acute) Acute hypercapnic respiratory failure (Acute) Non-small cell lung cancer metastatic to bone (Chronic) Anemia (Chronic) Left lower lobe pneumonia (Acute) COPD with acute exacerbation (Acute) Back pain, thoracic (Acute) COPD (chronic obstructive pulmonary disease) (Chronic) Tobacco dependence (Acute) Medical History History of diverticulitis Thrombocytosis GERD (gastroesophageal reflux disease) Right rotator cuff tendonitis Elevated blood pressure reading Surgical History S/P reconstruction of ligament of knee Social History/Home Situation: Lives on the third floor and has three flights of steps to enter with rails on B sides. Independent with all aspects of ADLs without an assistive device prior to admission. Currently on chemoherapy for his cancer. Still drives. Equipment Owned/DME: None Subjective: Patient did not feel he needs PT services. He verbalized that because he had not done his regular walking for the past two days due to his medical status, He initially thought that he would be very weak. When he walked with the ICU nurse this morning he felt that he should be able to get back to where he was. He did agree to mobility assessment in the [facility] and on the stairs. Patient also indicated that he has been trying to do his exercises and has tried to be active as much as he could at home. Objective: General Observation: Supine in bed. Telemetry monitoring in place. Oxygen saturation on 1 L/minute. SCDs in place. Mental Status: Alert and oriented as to person, place, time, and purpose. Able to pay attention, focus, and respond appropriately. Pain: Denied Vital Signs: 131/80s mmHg with SaO2 of 89% on 1 L/min and HR of 107 after ambulation ROM: Right Upper Extremity: Shoulder Flexion WFL. Shoulder abduction WFL. Elbow flexion WFL. Wrist flexion WFL. Functional opening and closing of hand WFL. Left Upper Extremity: Shoulder Flexion WFL. Shoulder abduction WFL. Elbow flexion WFL. Wrist flexion WFL. Functional opening and closing of hand WFL. Right Lower Extremity: Hip flexion WFL. Hip abduction WFL. Knee flexion WFL. Ankle dorsiflexion WFL. Ankle plantarflexion WFL. Left Lower Extremity: Hip flexion WFL. Hip abduction WFL. Knee flexion WFL. Ankle dorsiflexion WFL. Ankle plantarflexion WFL. Strength: Right Upper Extremity: Shoulder flexors 4/5. Shoulder abductors 4/5. Elbow flexors 5/5. Elbow extensors 5/5. Literacy Specialist strong. Left Upper Extremity: Shoulder flexors 4/5. Shoulder abductors 4/5. Elbow flexors 5/5. Elbow extensors 5/5. Literacy Specialist strong. Right Lower Extremity: Hip flexors 4/5. Hip abductors 4/5. Knee flexors 5/5. Knee extensors 4/5. Ankle dorsiflexors 4/5. Ankle plantarflexors 4/5. Left Lower Extremity: Extremity: Hip flexors 4/5. Hip abductors 4/5. Knee flexors 5/5. Knee extensors 4/5. Ankle dorsiflexors 4/5. Ankle plantarflexors 4/5. Bed Mobility/Transfers: Only needed cueing for directions and management of lines. Rolling independent Supine to sit independent Sit to supine independent Sit to stand independent Stand to sit independent Bed to bedside commode supervision only for line management Bedside commode to bed supervision only for line management Bed to reclining chair supervision only for line management Reclining chair to bed supervision only for line management Gait: Facilitated safe and correct performance of level surface ambulation covering a distance of about 400 feet using no assistive device with supervision provided for direction stand Management. Vital signs remained within normal limits during and after acti vity. Gait pattern unremarkable. Balance: Static Sitting: Normal Dynamic Sitting: Normal Static Standing: Good Dynamic Standing: Good Special Tests: Mobility Limitations Standardized Measure [facility] AM-PAC 6 clicks Basic Mobility Inpatient Short Form: Raw Score: 24 CMS Score: 0% deficit Informed Consent/Education: Patient was instructed in purpose of PT consult and plan of care. Agreeable to proceed with established PT POC to achieve personal goals. 4-Stage Balance Test: Feet together 10 seocnds Semi-tandem 10 seocnds Full Tandem 10 seconds One-legged stance <10 seconds Assessment: Patient with impaired activity tolerance but is able to walk and increase distance of walking gradually to tolerance on his own with nursing staff or respiratory therapy. Patient verbalized that he has good mastery of his exercises. Does not need an AD. Patient is assessed as a 33500 low complexity based on the following: History: 52-year-old male with past medical history as indicated above Examination: As above Presentation: Stable Decision Makin low complexity Goals: N/A. PT evaluation only. May walk with nursing staff without AD. Plan of Care/Treatment Plan: N/A. PT evaluation only. May walk with nursing staff without AD. DISCHARGE RECOMMENDATIONS: [X] Home with no services. Home when medically cleared by hospitalist. [] Home with services [specify] [] Home with outpatient PT [] [] SNF for continued rehabilitation [] [] [facility] [] [] SNF versus LTC based on ability to participate and progress [] TREATMENT CODE/TIME: 9716 1 x 8 minutes for 1 unit (13:20-13:48). Thank you for the opportunity to participate in the care of this patient. Charlene Ravi PT, DPT, CLT [facility] [place], [place]
[2023-04-21 19:34] LABS: Legionella Ag Detection Urine Negative (Negative)
[2023-04-21] MEDS: Atorvastatin 40 MG TAB 80 MG PO (19:49)
[2023-04-22] VITALS (14 sets, daily range): BP systolic 84–128; BP diastolic 52–92; PULSE 64–117; RESP 10–32; TEMP 36.7; O2SAT 86–94
[2023-04-22] MEDS: HYDROmorphone 4 MG TAB PO ×4 (00:01→23:42)
[2023-04-22] MEDS: Pantoprazole 40 MG TABCR PO (07:29)
[2023-04-22] MEDS: Budesonide/Formoterol 160/4.5 6 GM 60 PUFF INH IH ×2 (07:48→19:31)
[2023-04-22] MEDS: Tiotropium Bromide-Respimat 10 PUFF INH 2 PUFF IH (07:49)
[2023-04-22] MEDS: Folic Acid 1 MG TAB PO (08:25)
[2023-04-22] MEDS: Apixaban 5 MG TAB PO ×2 (08:25→19:57)
[2023-04-22] MEDS: predniSONE 20 MG TAB 40 MG PO (08:25)
[2023-04-22] MEDS: Pregabalin 50 MG CAP PO ×2 (08:25→19:55)
[2023-04-22] MEDS: Aspirin E.C. 81 MG TABEC PO (08:26)
[2023-04-22] MEDS: Normal Saline Flush 10 ML SYR IVP ×2 (08:26→19:58)
--- NOTE | 2023-04-22 08:53 | W.PM.PROGNOT ---
Date of Service Date of service: 04/22/23 Time of Service: 08:53 Assessment and Plan Assessment and plan (1) Cardiogenic shock: Status: Acute Assessment and plan: secondary to NSTEMI related to his hypercapneic and hypoxemic respiratory failure. Alexis Pelayo is a 52-year-old male admitted on 04/17/2023 with acute hypercapnic and hypoxemic respiratory failure requiring BiPAP felt to be secondary to COPD exacerbation. He has a history of non-small cell carcinoma of the lung with bone metastasis diagnosed 2 years ago currently followed by [facility] oncologist Dr. Frazier. Despite initial treatment with aerosolized bronchodilators and BiPAP and IV Solu-Medrol and doxycycline his respiratory status worsened and the patient required emergent intubation on the evening of 04/17/2023 and transferred to the intensive care unit. This is acute decompensation was associated with NSTEMI which was treated with heparin and aspirin and he required epinephrine drip to treat his shock. Epinephrine was stopped 04/17. He required emergent intubation on evening of 04/16 and was on the ventilator overnight but extubated on 04/17. He was initially loaded with aspirin 324 mg and placed on heparin drip for 48 hours. Heparin drip was stopped 04/18. I put him on apixaban for prevention of apical thrombus. He is not currently being maintained on the aspirin. Echocardiogram from 04/18/2023 did show a cardiomyopathy with an LVEF of less than 20% with segmental wall motion abnormalities superimposed on severe global hypokinesis as well as a dilated and hypocontractile right ventricle and moderate biatrial enlargement and mild mitral regurgitation. He appears to be euvolemic, therefore I have not initiated diuretics. His BP has been at low normal levels and he has been asymptomatic. I will proceed w/ resting MPI, consider addition of low dose Imdur if BP will tolerate. Start on Professional time spent interviewing and examining patient, discussion of goals of care with hospital team (care management, nursing and consulting professionals) was 60 minutes. Case discussed w/ Dr. Frazier. (2) NSTEMI (non-ST elevated myocardial infarction): Status: Acute Assessment and plan: [facility] cardiology felt d/t type II demand ischemia but given his regional wall abnormalities, I think this was a true NSTEMI. He should have follow up MPI study. continue ASA, lipitor; consider addition of low dose Imdur. will get resting MPI and then plan to get stress MPI later. (3) Acute hypercapnic respiratory failure: Status: Acute Assessment and plan: treatement as above (4) COPD with acute exacerbation: Status: Acute Assessment and plan: treatment as above, prednisone, bronchodilators, antibiotics (5) Acute hyperglycemia: Status: Acute Assessment and plan: novolog sliding scale/ fingerstick glucose AC/HS (6) Non-small cell lung cancer metastatic to bone: Status: Chronic Assessment and plan: Dr. Frazire did call me back. He says that the patient's metastatic lung cancer has done well and not progressed. his lung cancer is confined to right lung w/ rib mets. He has not had any recent cardiotoxic therapy, therefore his cardiomyopathy can not be explained by any chemotherapy agents. Per my discussion w/ Dr. Frazier, I feel that since the patient's prognosis is well over 6 mos. (Dr. Frazier is optimistic that he may get another 1.5 to 2 yrs) then I think it is reasonable to pursue workup for ischemic heart disease. (7) Tobacco dependence: Status: Acute Assessment and plan: -No need for nicotine supplement. -Advised complete cessation and long-term (8) Anemia: Status: Chronic Qualifiers: Anemia type: other cause Other causes of anemia: antineoplastic chemotherapy Qualified Code(s): D64.81 - Anemia due to antineoplastic chemotherapy; T45.1X5A - Adverse effect of antineoplastic and immunosuppressive drugs, initial encounter Subjective Subjective Interval history since last seen: Patient feels markedly better. States that he walked around the ICU and went to P.T. office and did stairs. He says that he still gets some chest heaviness, dyspnea w/ activity. I told him that I feel that he did in fact have an NE and that his dyspnea is not soley d/t his COPD. His echocardiogram demonstrated severe global LV hypokinesis w/ LVEF <20% but also demonstrated regional wall motion abnormalities (although the interpreting collision center manager did not specify which [facility]). I am recommending a resting MPI study to assess current coronary vascular reserve and then get a stress MPI once he has recovered. I told him that I would only recommned this on the condition that his oncologist feels his prognosis is favorable enough to warrant undergoing a heart cath and coronary stenting. He is agreeble to me speaking w/ Dr. Frazier (whom I have called [facility] in [facility] and have left a message to speak w/ him). Exam Narrative Exam Narrative: Alexis is sitting up in bed, no acute distress, not requiring any supplemental oxygen (SPO2 is 92% on RA) Neck: no JVD Lungs: diffuse fine expiratory wheezes, no rhonchi or rales, overall improving air exchange Heart: distant heart tones, no murmur or rub or gallop Abdomen: soft, nondistended, nontender Legs/feet: no cyanosis or edema; normal pedal pulses Objective Last Vital Signs Temp 36.7 C 04/22/23 06:17 Pulse 83 04/22/23 06:17 Resp 12 04/22/23 06:17 BP 105/92 H 04/22/23 06:17 Pulse Ox 94 04/22/23 06:17 Laboratory Results - last 24 hr 04/21/23 04/21/23 04/21/23 06:20 10:56 11:20 Hemoglobin A1c Triglycerides 135 Total Cholesterol 184 LDL Cholesterol, Calc 116 H HDL Cholesterol 41 Urine Legionella Ag Negative MRSA (TEM-PCR) Negative Add-On Test Request DONE DONE 04/21/23 11:40 Hemoglobin A1c 6.5 H Triglycerides Total Cholesterol LDL Cholesterol, Calc HDL Cholesterol Urine Legionella Ag MRSA (TEM-PCR) Add-On Test Request Time Spent with Patient Time Spent with Patient: >50 minutes Time was spent: preparing to see the patient(eg.review tests), ordering medications,tests, procedures, referring, communicating with other health housekeeper caregiver, indepentently interpreting results, counseling the patient and care coordination
[2023-04-22 09:55] LABS: Lab Add On Test DONE
[2023-04-22 10:40] LABS: Iron 62 ug/dL (65-175); Total Iron Binding Capacity 264 ug/dL (250-450); Transferrin Sat 23 % (20-55)
--- NOTE | 2023-04-22 10:47 | PDOC.CMPRO ---
Date of service: 04/22/23 Time of Service: 10:47 Care Management Progress Note Progress Note Text Progress Note Text: S/O: Cornelius was sitting up in bed when CM met with him. He stated that he is doing much better, and was able to walk around the halls today, and his O2 level dipped down slightly, which he required 1LO2 for a short time after. He was not on supplemental O2 at the time of the conversation. He stated that per MD, he will likely be discharged tomorrow. He asked if CM could find out about his palliative follow up home visit; per Palliative, he is scheduled for 05/01/[address] Lewis at around 3pm. He also asked about his medications upon discharge; he stated that he generally gets his medications delivered by [facility] in [facility], although he is willing to stop at the pharmacy on his way home, if he has new medications upon discharge. He is unsure if he will have new medications, and asked if CM could verify that the medications are covered and available at the pharmacy, as he has had some difficulty recently. He stated that his sister will pick him up via [employer]. CM offered RCT, which he declined, as he stated that his sister will want to be present for discharge and will travel via [employer]. CM will continue to follow. A: Alexis is a 52 year old male admitted to [facility] on 04/17/23 for acute hypercapnic respiratory failure, COPD exacerbation. P: Alexis will return home once medically cleared, with no additional services. His sister will drive him home via private vehicle when ready. He will follow up with his PCP and discharge plan of care. CM will continue to follow. SDOH(Care Management) Screening Will the Patient Participate in the Screening?: Unable to obtain
[2023-04-22 11:02] LABS: Ferritin 325 ng/mL (26-388); Vitamin B12 616 pg/mL (193-986)
[2023-04-22 11:03] LABS: Folate > 20.0 ng/mL (8.6-20.0)
[2023-04-22] MEDS: Insulin Aspart 300 UNITS/3 ML PEN SC (11:39)
[2023-04-22] MEDS: Atorvastatin 40 MG TAB 80 MG PO (19:56)
[2023-04-23] VITALS (8 sets, daily range): BP systolic 125; BP diastolic 91; PULSE 67–94; RESP 10–29; TEMP 36.5; O2SAT 94–95
[2023-04-23 00:24] LABS: Streptococcus Pneumoniae Ag, U Negative (Negative)
[2023-04-23] MEDS: Folic Acid 1 MG TAB PO (07:49)
[2023-04-23] MEDS: Normal Saline Flush 10 ML SYR IVP (07:49)
[2023-04-23] MEDS: predniSONE 20 MG TAB 40 MG PO (07:50)
[2023-04-23] MEDS: HYDROmorphone 4 MG TAB PO ×2 (07:50→16:14)
[2023-04-23] MEDS: Pregabalin 50 MG CAP PO ×2 (07:50→18:43)
[2023-04-23] MEDS: Pantoprazole 40 MG TABCR PO (07:50)
[2023-04-23] MEDS: Budesonide/Formoterol 160/4.5 6 GM 60 PUFF INH IH ×2 (08:32→19:55)
[2023-04-23] MEDS: Tiotropium Bromide-Respimat 10 PUFF INH 2 PUFF IH (08:32)
[2023-04-23 09:32] LABS: Transferrin 207 mg/dL (201-352)
--- NOTE | 2023-04-23 10:17 | PGE_ITS ---
Date of Service Date of service: 04/23/23 Time of Service: 10:17 Assessment and Plan Assessment and plan (1) Cardiogenic shock: Status: Resolved Assessment and plan: secondary to NSTEMI related to his hypercapneic and hypoxemic respiratory failure. Alexis Pelayo is a 52-year-old male admitted on 04/17/2023 with acute hypercapnic and hypoxemic respiratory failure requiring BiPAP felt to be secondary to COPD exacerbation. 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 Frazier. Despite initial treatment with aerosolized bronchodilators and BiPAP and IV Solu-Medrol and doxycycline his respiratory status worsened and the patient required emergent intubation on the evening of 04/17/2023 and transferred to the intensive care unit. This is acute decompensation was associated with NSTEMI which was treated with heparin and aspirin and he required epinephrine drip to treat his shock. Epinephrine was stopped 04/17. He required emergent intubation on evening of 04/16 and was on the ventilator overnight but extubated on 04/17. He was initially loaded with aspirin 324 mg and placed on heparin drip for 48 hours. Heparin drip was stopped 04/18. I put him on apixaban for prevention of apical thrombus. He is not currently being maintained on the aspirin. Echocardiogram from 04/18/2023 did show a cardiomyopathy with an LVEF of less than 20% with segmental wall motion abnormalities superimposed on severe global hypokinesis as well as a dilated and hypocontractile right ventricle and moderate biatrial enlargement and mild mitral regurgitation. Patient has reprieve remarkably from his COPD exacerbation. Air exchange is much better he is not requiring supplemental oxygen. With respect to his cardiogenic shock he is no longer in shock although his echo as noted above shows a severe cardiomyopathy. Patient is currently awaiting transfer to [facility] later today to the cardiology service of Dr. Leighton Espitia. It appears he will not have his cardiac cath today therefore we will proceed with feeding him. However he will remain off his apixaban in anticipation of cardiac cath tiffany rrow. We will continue aspirin and statin treatment and I will put him back on heparin drip pending his cardiac cath as he is high risk for LV thrombus due to his severe cardiomyopathy. (2) NSTEMI (non-ST elevated myocardial infarction): Status: Acute Assessment and plan: [facility] cardiology was initially notified when he had his NSTEMI they felt it was a type II demand ischemic event. Nevertheless his echocardiogram shows severe cardiomyopathy with regional wall motion abnormalities therefore patient needs cardiac catheterization to evaluate for underlying ischemic heart disease. Patient's been accepted to the service of Dr. Afshin Espitia we are awaiting availability of a bed for transfer later today. Continue aspirin 81 mg daily along with atorvastatin. Beta-blockers were not started because of the severe LV dysfunction on his echocardiogram. However clinically he does not appear to be in acute congestive failure. For this reason I have not started him on any diuretics. (3) Acute hypercapnic respiratory failure: Status: Acute Assessment and plan: Continue Symbicort and Spiriva along with as needed Xopenex (4) COPD with acute exacerbation: Status: Acute Assessment and plan: treatment as above, prednisone, bronchodilators, antibiotics (doxycycline) (5) Acute hyperglycemia: Status: Acute Assessment and plan: Clinical hemoglobin A1c is 6.5% consistent with borderline diabetes mellitus. Blood sugars have been reasonable in the low 100s to mid 100s. We will back off blood sugar readings BID and hold further insulin orders. Patient should be started on Jardiance before being discharged home for both glucose control as well as management of his cardiomyopathy (6) Non-small cell lung cancer metastatic to bone: Status: Chronic Assessment and plan: Per Dr. Frazier, patient's oncologist from [facility], patient has a favorable prognosis is helpful with the patient will continue to do well with his current maintenance chemotherapy and for this reason patient should be a candidate for coronary revascularization if needed. (7) Tobacco dependence: Status: Acute Assessment and plan: -No need for nicotine supplement. -Advised complete cessation and long-term (8) Anemia: Status: Chronic Assessment and plan: Anemia of chronic disease currently stable Qualifiers: Anemia type: other cause Other causes of anemia: antineoplastic chemotherapy Qualified Code(s): D64.81 - Anemia due to antineoplastic chemotherapy; T45.1X5A - Adverse effect of antineoplastic and immunosuppressive drugs, initial encounter Subjective Subjective Interval history since last seen: Patient feels much better today. No chest tightness or pain or pressure although he did note he had some increased dyspnea when he took a shower yesterday. I told him that we are still waiting for bed at [facility] but he has been accepted to the service of Dr. Afshin Espitia. I checked with [facility] transfer center it looks like he will not go down at [facility] until later this afternoon. Therefore we will go ahead and feed him. His apixaban has been on hold this morning in anticipation of cardiac cath. We will begin him on systemic heparin while he is off his apixaban. Exam Narrative Exam Narrative: Middle-aged white male very talkative not dyspneic with prolonged conversation Neck veins are flat Lungs just some fine end expiratory wheezes but no rhonchi or rales overall his air exchange much improved Heart is regular to slightly tachycardic rhythm shows sinus rhythm in the high 90s. Abdomen soft nontender nondistended Extremities without edema Objective Last Vital Signs Temp 36.7 C 04/22/23 06:17 Pulse 90 04/22/23 11:27 Resp 12 04/23/23 06:00 BP 128/89 04/22/23 11:27 Pulse Ox 94 04/23/23 08:32 Laboratory Results - last 24 hr 04/21/23 04/22/23 10:59 10:12 Iron 62 L TIBC 264 Transferrin 207 Transferrin % Sat 23 Ferritin 325 Vitamin B12 616 Folate > 20.0 H Ur Strep pneumoniae Ag Negative Time Spent with Patient Time Spent with Patient: 35-49 minutes Time was spent: preparing to see the patient(eg.review tests), ordering medications,tests, procedures, referring, communicating with other health child care associate teacher (Calls to [facility] transfer center to get an update on bed availa bility), indepentently interpreting results, counseling the patient and care coordination
--- NOTE | 2023-04-23 10:43 | DSE_ITS ---
Date of service: 04/23/23 Time of Service: 10:43 DS: Diagnosis Discharge Diagnosis (1) Cardiogenic shock: Status: Resolved (2) NSTEMI (non-ST elevated myocardial infarction): Status: Acute (3) Acute hypercapnic respiratory failure: Status: Acute (4) COPD with acute exacerbation: Status: Acute (5) Acute hyperglycemia: Status: Acute (6) Non-small cell lung cancer metastatic to bone: Status: Chronic (7) Tobacco dependence: Status: Acute (8) Anemia: Status: Chronic Discharge Plan Disposition Patient Disposition: Transfer-Acute Inpatient Care Specific Acute Inpt Facility: [facility] Condition: Stable Discharge Details Reason For Visit: Acute hypercapnic respiratory failure, COPD exacer Admit Date/Time: 04/17/23 04:26 Admit Provider: Román Velasoc Attending Provider: Román Velasco Primary Care Provider: Nikki Hermosilol Hospital Course Hospital Course: Alexis Pelayo is a 52-year-old male admitted on 04/17/2023 with acute hypercapnic and hypoxemic respiratory failure requiring BiPAP felt to be secondary to COPD exacerbation. 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 Frazier. Despite initial treatment with aerosolized bronchodilators and BiPAP and IV Solu-Medrol and doxycycline his respiratory status worsened and the patient required emergent intubation on the evening of 04/17/2023 and transferred to the intensive care unit. This is acute decompensation was associated with NSTEMI which was treated with heparin and aspirin. He was initially loaded with aspirin 324 mg and placed on heparin drip for 48 hours. Patient was extubated the next day on 04/18/23. Echocardiogram from 04/18/2023 did show a cardiomyopathy with an LVEF of less than 20% with segmental wall motion abnormalities superimposed on severe global hypokinesis as well as a dilated and hypocontractile right ventricle and moderate biatrial enlargement and mild mitral regurgitation. Patient did require epinephrine drip for stabilization of his cardiogenic shock but was weaned off epinephrine drip yesterday and has remained off of this since 10 PM on 04/20/23 COPD exacerbation has been treated w/ corticosteroids, aerosolized bronchodilators, LABA/ICS (Symbicort), and LAMA (Spiriva). His COPD exacerbation has responded to treatment and his dyspnea has improved and his oxygen requirements improved to the point he has been weaned off supplemental oxygen. With respect to ischemic symptoms he has had no resting CP, but w/ activity has had some chest tightness although even this has improved over past 24hr. Due to his severe cardiomyopathy, after he was treated for 48 hr w/ heparin, I put him on apixaban beginning on 04/20 (although he had been off heparin and aspirin since 04/18. I put him back on aspirin 81 mg daily and atorvastatin 80 mg nightly along w/ apixaban 5 mg bid. I consulted / [facility] on 04/21 for transfer for cardiac cath and he was accepted to service of Dr. Afshin Espitia for transfer on 04/22. Patient remains hemodynamically stable w/ no arrhythmias and marked improvement in his COPD exacerbation. He appears to be euvolemic and has not required any diuretics. Home Meds and New Rx's Prescriptions: No Action omeprazole 40 mg capsule,delayed release(DR/EC) 40 mg PO DAILY tiotropium bromide [Spiriva with HandiHaler] 18 mcg capsule, w/inhalation device 1 cap inhalation DAILY Rx Instructions: puncture 1 cap using device; one dose = 2 inhalations fluticasone propion-salmeterol [Advair Diskus] 250-50 mcg/dose blister with device 1 inh inhalation BID morphine 100 mg capsule,extend.release pellets 100 mg PO TID hydromorphone [Dilaudid] 2 mg tablet 4 mg PO TID dronabinol 10 mg capsule 10 mg PO BID Rx Instructions: administer before lunch and evening meal/dinner albuterol sulfate 90 mcg/actuation aerosol powdr breath activated 2 inh inhalation Q4H PRNQty: 1 0RF pregabalin [Lyrica] 50 mg capsule 50 mg PO BID folic acid 1 mg tablet 1 mg PO DAILY Discharge Instructions Instructions: Heart Attack (DC), Heart Healthy Diet (DC), COPD (Chronic Obstructive Pulmonary Disease) (DC) Referrals: Afshin Espitia [ [facility] STAFF PHYSICIAN] - Activity:: Activity as Tolerated Equipment/Supplies:: No Equipment Needed Diet:: Carb Counting DS: Summary Summary Time spent discussing smoking cessation with patient: 3 to 10 minutes (Patient was offered services including referral for cognitive behavioral therapy and/or medications the patient chooses to quit on his own and says he has resolved to quit) Time Spent with Patient providing and/or coordinating discharge services: Greater than 30 minutes Specific discharge activities: Interview/exam of patient; review of discharge instructions, completion of prescriptions/discharge instructions; discussion w/ nursing and CM; documentation of hospital visit Status at Discharge Functional status at discharge: independent ambulation Overall status at discharge: patient is progressing back to baseline Mental Status: mental status grossly normal Speech and Movement: speech and movement normal Mood: congruent mood Affect: normal affect Quality:SDOH Health Related Social Needs: No Data to Display Quality: AMI Clinical Trial Participant: No Exam Narrative Exam Narrative: Middle-aged white male very talkative not dyspneic with prolonged conversation Neck veins are flat Lungs just some fine end expiratory wheezes but no rhonchi or rales overall his air exchange much improved Heart is regular to slightly tachycardic rhythm shows sinus rhythm in the high 90s. Abdomen soft nontender nondistended Extremities without edema Psych Mental Status: mental status grossly normal Speech and Movement: speech and movement normal Mood: congruent mood Affect: normal affect DS: Data Vitals/I&O Vitals and I&O: Vital Signs Temperature 36.7 C 04/22/23 06:17 Temperature Source Temporal Artery Scan 04/21/23 07:40 Pulse 90 04/22/23 11:27 Pulse Rhythm Regular 04/22/23 23:00 Pulse 69 04/23/23 06:00 Respiratory Rate 12 04/23/23 06:00 Respiratory Effort Normal 04/23/23 07:59 Respiratory Depth Normal 04/23/23 07:59 Respiratory Pattern Normal 04/23/23 07:59 Blood Pressure 128/89 04/22/23 11:27 Blood Pressure Mean 100 04/22/23 11:27 Blood Pressure Position Supine 04/21/23 07:40 Pulse Oximetry 94 04/23/23 08:32 Respiratory End-tidal CO2 37 04/18/23 07:38 Oxygen Delivery Method Room Air 04/23/23 08:32 Oxygen Flow Rate 0 04/23/23 08:32 Fraction of Inspired Oxygen (FIO2) 25 04/18/23 07:48 Pain Level 4 04/22/23 15:58 Comment with activity 04/20/23 12:32 Intake & Output 04/22/23 04/22/23 04/23/23 11:59 23:59 11:59 Intake Total 1200 / 2750 1550 / 2750 550 / 550 Output Total 1900 / 4800 2900 / 4800 1275 / 1275 Balance -700 / -2050 -1350 / -2050 -725 / -725 Intake: IV Oral 1180 / 2710 1530 / 2710 550 / 550 Output: Urine 1900 / 4800 2900 / 4800 1275 / 1275 Other: Urine Color Yellow Pale Yellow Urine Appearance Clear Clear Clear Urine Odor None None Stool Size Large Stool Characteristics Soft Formed Brown Voiding Methods Urinal Urinal Data Completed and Pending Labs on day of discharge: Labs from last 24 hours 04/23/23 04/22/23 04/21/23 10:21 10:12 10:59 APTT Pending Transferrin 207 Ferritin 325 Vitamin B12 616 Folate > 20.0 H Ur Strep pneumoniae Ag Negative Preliminary micro results at discharge 04/21/23 10:56 Sputum Culture - Preliminary Sputum Normal Jing Kisha Albicans PFSH All Active Problems Lactic acidosis (Acute) Thrombocytosis (Acute) Leukocytosis (Acute) NSTEMI (non-ST elevated myocardial infarction) (Acute) Acute hyperglycemia (Acute) Acute hypercapnic respiratory failure (Acute) Non-small cell lung cancer metastatic to bone (Chronic) Anemia (Chronic) Left lower lobe pneumonia (Acute) COPD with acute exacerbation (Acute) Back pain, thoracic (Acute) COPD (chronic obstructive pulmonary disease) (Chronic) Tobacco dependence (Acute) Medical History History of diverticulitis GERD (gastroesophageal reflux disease) Right rotator cuff tendonitis Elevated blood pressure reading Surgical History S/P reconstruction of ligament of knee Family History Mother Breast cancer Other Cancer Social History Smoking/Tobacco Use Status: Former Tobacco Use Smoking risk assessment performed?: Yes Alcohol Intake: current Alcohol Intake frequency: holidays/special occasions only Substance use type: marijuana Housing: apartment Current gender identity: male Additional Social history: lives with sister in apartment in [facility]. Born in [place], lived in [place] x 30 years. 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 Remote 4 year incarceration. Time Spent with Patient Time Spent with Patient: <45 minutes Time was spent: preparing to see the patient(eg.review tests), ordering medications,tests, procedures, referring, communicating with other health physician primary care sports medicine (Calls to [facility]), indepentently interpreting results, counseling the patient and care coordination
[2023-04-23] MEDS: Heparin in 0.45% NaCl 25,000 UNIT/250 ML BAG 8 UNIT IV (10:53)
[2023-04-23] MEDS: Aspirin E.C. 81 MG TABEC PO (10:55)
[2023-04-23 11:13] LABS: PTT Activated 26.2 sec (23.6-32.8)
--- NOTE | 2023-04-23 16:07 | CHAPLAIN ---
Alexis is still waiting to be transferred to [facility] [place] for cardiac care, and then to proceed with cancer care. He explained on my first visit, and again today, that he is Worship and believes that what energy that you put out in to the world, you'll receive back. His sister continues to visit, and he said several friends have visited and that's given his some renewed strength to take into his cancer treatments.
[2023-04-23 16:56] LABS: PTT Activated 28.5 sec (23.6-32.8)
--- NOTE | 2023-04-23 16:58 | CMPROGNOTE_ITS ---
Date of service: 04/23/23 Time of Service: 16:58 Care Management Progress Note Progress Note Text Progress Note Text: Alexis transferred to [facility], per MD via EMS coordinated by nursing tube room supervisor. SDOH(Care Management) Screening Will the Patient Participate in the Screening?: Unable to obtain
--- NOTE | 2023-04-23 16:58 | PDOC.CMPRO ---
Date of service: 04/23/23 Time of Service: 16:58 Care Management Progress Note Progress Note Text Progress Note Text: Alexis [place] [facility] via EMS coordinated by nursing security guard supervisor. SDOH(Care Management) Screening Will the Patient Participate in the Screening?: Unable to obtain
[2023-04-24 18:09] LABS: Mycoplasma Pneumoniae PCR Negative (Negative); Specimen source Sputum
== END 2023-04-23 20:00 | disposition short-term general hospital (02) | DRG 208 ==
LOC: ER 04:37 → ICU 06:13
PROVIDERS: Family Medicine; Internal Medicine; Student in an Organized Health Care Education/Training Program; Admitting Provider Family Medicine; Emergency Provider Emergency Medicine; PCP Nurse Practitioner Family; Visit Provider Family Medicine
DX: J44.1 Chronic obstructive pulmonary disease with (acute) exacerbation (principal); J96.02 Acute respiratory failure with hypercapnia; R57.0 Cardiogenic shock; J96.01 Acute respiratory failure with hypoxia; I21.4 Non-ST elevation (NSTEMI) myocardial infarction; C79.51 Secondary malignant neoplasm of bone; E87.20 Acidosis, unspecified; C34.11 Malignant neoplasm of upper lobe, right bronchus or lung; I42.9 Cardiomyopathy, unspecified; D72.829 Elevated white blood cell count, unspecified; D64.81 Anemia due to antineoplastic chemotherapy; T45.1X5A Adverse effect of antineoplastic and immunosuppressive drugs, initial encounter; D75.839 Thrombocytosis, unspecified; Z79.899 Other long term (current) drug therapy; M54.6 Pain in thoracic spine; K21.9 Gastro-esophageal reflux disease without esophagitis; Z66 Do not resuscitate; F17.210 Nicotine dependence, cigarettes, uncomplicated; F12.90 Cannabis use, unspecified, uncomplicated; R73.9 Hyperglycemia, unspecified; I34.0 Nonrheumatic mitral (valve) insufficiency
CPT/HCPCS: 31500; 36410; 00123; 36415; 36592; 80048; 80053; 80061; 82805; 85027; 87449; 87637; 87641; 93005; 94618; 94640; 96374; 96375; 97161; 99291; J1650; 36600; 71045; 82607; 82728; 82746; 83036; 83540; 83550; 83605; 83735; 83880; 84466; 84484; 85025; 85730; 87070; 87205; 87581; 87899; 93010; 93306; 94002; 94003; 94660; 94664; 94760; 99223; 99233; 99239; J0171; J1170; J1644; J1815; J2270; J2470; J2704; J2930; J3010; J3475; J7512; J7613; J7614; J7620

== ENCOUNTER → 2023-05-15 03:03 | Outpatient (CLI) | payer MEDICAID, SELFPAY ==
[2023-05-15] MEDS: Normal Saline - Diluent 50 ML VIAL IJ (10:01)
[2023-05-15] MEDS: Omnipaque 350 MG/ML 100 ML BTL 70 ML IJ (10:02)
--- NOTE | 2023-05-15 10:08 | DI.CT_ITS ---
Exam(s) CT CHEST W EXAM: CT CHEST W CLINICAL HISTORY: LUNG CANCER C34.31 BONE CANCER C79.51 ASSESS TREATMENT RESPONSE TECHNIQUE: Imaging Protocol: Axial computed tomography images with coronal and sagittal reformatted images were created and reviewed CONTRAST MATERIAL: Intravenous: Omnipaque 350 Contrast volume:70 ml. COMPARISON: CT CT CHEST W from 03/03/2023 CR,XR XR PORTABLE CHEST AP from 04/19/2023 FINDINGS: Pulmonary parenchyma: Severe emphysematous changes again noted. Large upper lobe bulla. Stable areas of scarring in the right upper and lower lobes. stable right lower lobe opacity which has the appeara nce of rounded atelectasis. Stable areas of nodularity in the lateral, inferior right upper lobe. No new findings. Tracheobronchial tree: Stable right posterior upper and lower lobe bronchiectasis. no mucous pluggin g. Mediastinum and Anamika: Stable small right superior hilar lymph node. Stable small right paratracheal l ymph node. Pleura: Stable right posterior pleural thickening. No pneumothorax. Heart: The heart is not dilated. Mild coronary artery calcifications are seen. Aorta: Thoracic aorta non-dilated. Mild atherosclerotic changes. Upper abdomen: No acute findings.. Bones: Stable right posterior rib deformities. Stable thoracic compression fractures. Milddegenerativ e changes in the spine. Soft tissues: Unremarkable. IMPRESSION: Stable appearance of the chest. RADIATION DOSE DELIVERED: Total DLP DATA REPOSITORY: All CT scans at this facility are submitted to the National Radiology Data Registry (NRDR) Dose Index Registry (DIR) with the [employer] (ACR). RADIATION OPTIMIZATION: All CT scans at this facility use at least one of these dose optimization te chniques: automated exposure control; mA and/or kV adjustment per patient size (includes targeted exa ms where dose is matched to clinical indication); or iterative reconstruction.
== END ==
PROVIDERS: PCP Nurse Practitioner Family; Visit Provider Nurse Practitioner Family
DX: C34.31 Malignant neoplasm of lower lobe, right bronchus or lung (principal); C79.51 Secondary malignant neoplasm of bone
CPT/HCPCS: 71260; J3490

== ENCOUNTER 2023-05-19 10:42 | Outpatient (CLI) | payer MEDICAID, SELFPAY ==
--- NOTE | 2023-05-19 10:30 | RT.EKG_ITS ---
APPROVED REPORT Exam: Resting ECG Reason for Exam: baseline Patient Location: O HR:90 bpm ECG Measurements Heart Rate 90 AXIS OK 143 P 76 QRSd 80 QRS -18 QT 377 T 209 QTc 462 Conclusion Sinus rhythm...normal P axis, V-rate 50- 99 left axis deviation...QRS axis (-15,-29) Low voltage, extremity leads...all extremity leads <0.5mV T wave abnormlaity
== END 2023-05-19 10:43 | disposition home or self-care (01) ==
PROVIDERS: PCP Nurse Practitioner Family; Visit Provider Internal Medicine Cardiovascular Disease
DX: I21.4 Non-ST elevation (NSTEMI) myocardial infarction (principal); I25.10 Atherosclerotic heart disease of native coronary artery without angina pectoris
CPT/HCPCS: 93010

== ENCOUNTER 2023-06-02 05:05 | Outpatient (CLI) | payer MEDICAID, SELFPAY ==
[2023-06-02 12:25] LABS: Abs Immature Grans 0.04 10^3/uL (0.0-0.06); Absolute Basophil Count 0.09 10^3/uL (0.0-0.2); Absolute Eosinophil Count 0.31 10^3/uL (0.0-0.7); Absolute Lymphocyte Count 1.64 10^3/uL (1.2-3.4); Absolute Monocyte Count 0.67 10^3/uL (0.1-0.8); Absolute Neutrophil Count 5.12 10^3/uL (1.2-6.7); Basophils % 1.1; Eosinophils % 3.9; HCT 44.5 % (40.0-50.0); HGB 14.4 g/dL (13.5-17.5); Immature Grans % 0.5; Lymphocytes % 20.8; MCHC 32.4 % (32.0-36.0); MCV 93 fL (80-95); MPV 9.4 fL (8.0-11.0); Monocytes % 8.5; Neutrophils % 65.2; Platelet Count 323 10^3/uL (130-400); RDW 13.4 % (11.8-14.1); WBC 7.87 10^3/uL (4.4-10.8)
[2023-06-02 12:51] LABS: ALT 19 U/L (16-63); AST 14 U/L (15-37); Albumin 4.5 g/dL (3.4-5.0); Alkaline Phosphatase 79 U/L (46-116); Anion Gap 9.5 mmol/L (3-11); BUN 9 mg/dL (7-18); Bilirubin, Total 0.3 mg/dL (0.2-1.0); CO2 30.5 mmol/L (21.0-32.0); Calcium 9.7 mg/dL (8.5-10.1); Chloride 99 mmol/L (98-107); Estimated GFR 91.12 (mL/min/1.73m2); FREE T4 1.13 ng/dL (0.76-1.46); Glucose 112 mg/dL (74-106); Sodium 139 mmol/L (136-145); TSH 1.53 uIU/Ml (0.36-3.74); Total Protein 8.8 g/dL (6.4-8.2)
== END 2023-06-02 05:06 | disposition home or self-care (01) ==
PROVIDERS: PCP Nurse Practitioner Family; Visit Provider Nurse Practitioner
DX: C79.51 Secondary malignant neoplasm of bone (principal); C34.31 Malignant neoplasm of lower lobe, right bronchus or lung; Z79.899 Other long term (current) drug therapy
CPT/HCPCS: 36415; 80053; 84439; 84443; 85025

== ENCOUNTER → 2023-06-17 04:52 | Outpatient (CLI) | payer MEDICAID, SELFPAY ==
--- NOTE | 2023-06-17 07:45 | DI.US_ITS ---
APPROVED REPORT EXAM: Comprehensive 2D, Doppler, and color-flow Echocardiogram Patient Location: Out-Patient Flag Decorator: Xochitl Chavez RDCS (AE) Indications: LV function, CAD, Heart failure with reduced EF Other Information Study Quality: Fair. Technically limited study due to body habitus, lung cancer. Conclusion Normal left ventricular wall thickness and chamber size. Ejection fraction is 50-55 send. There are no segmental wall motion abnormalities Normal right ventricular size and systolic function Both atria are normal in size There is no structural or hemodynamically significant valvular disease Right ventricular systolic pressure cannot be estimated Wall motion Left Ventricle The left ventricle is normal size. Left ventricular systolic function is borderline There is normal l eft ventricular wall thickness. There are no segmental wall motion abnormalities There is no ventricu lar septal defect visualized. LVEF is 50-55%. Right Ventricle The right ventricle is normal size. The right ventricular systolic function is normal. Atria The left atrium size is normal. The right atrium size is normal. The interatrial septum is intact wit h no evidence for an atrial septal defect. Aortic Valve The aortic valve is normal in structure. There is no aortic valvular stenosis. No aortic regurgitatio n is present. Mitral Valve The mitral valve is normal in structure. No evidence of mitral valve stenosis. Trace mitral regurgita tion. Tricuspid Valve The tricuspid valve is normal in structure. There is no tricuspid valve stenosis. Trace tricuspid reg urgitation. Unable to assess PA pressure. Pulmonic Valve The pulmonary valve is normal in structure. There is no pulmonic valvular stenosis. There is no pulmo shelly valvular regurgitation. Great Vessels The aortic root is normal in size. Ascending aorta is not well visualized. Aortic arch is not well vi sualized. IVC is normal in size and collapses >50% with inspiration. Pericardium There is no pericardial effusion. 2D Dimensions IVSD d PLAX 0.80 cm M: 0.6-1.2 Ao Root d 3.33 cm M: 3.1 - 3.7 LVPW d PLAX 0.83 cm M: 0.6 - 1.2 LVID d PLAX 4.53 cm M: 4.2 - 5.8 LVDs 3.56 cm M: 2.5 - 4.0 LV EF Teichholz 43.5 % FS 21.39 % LV EDV (Teich) 93.9 mL LV ESV (Teich) 53.0 mL Auto EF LV EDV A4C 96.1 mL LV EDV A2C 93.6 mL LV EDV BP 94.1 mL LV ESV A4C 52.9 mL LV ESV A2C 53.1 mL LV ESV BP 53.2 mL LVEF(%) A4C 45.0 % LVEF(%) A2C 43.2 % LVEF(%) BP 43.4 % LV SV A4C 43.2 ml LV SV A2C 40.4 ml LV SV BP 40.9 ml LV CO A4C 3.9 L/min LV CO A2C 3.2 L/min LV CO BP 3.6 L/min HR A4C 91.15 BPM HR A2C 78.40 BPM LV EDV Index (BP) LV Strain Long Pk Overal Avg (s) 12.70 LA Volume LA Length A4C 4.9 cm LA Length A2C 4.2 cm LA Area A4C s 12.40 cm2 LA Area A2C s 11.39 cm2 LA Vol A4C A-L 26.88 mL LA Vol A2C A-L 26.21 mL LA Vol Biplane A-L 28.5 mL LA Vol/BSA A4C A-L LA Vol/BSA A2C A-L LA Vol/BSA BP A-L 16.9 mL/m2 LA Vol A4C MOD 24.7 mL LA Vol A2C MOD 25.4 mL LA Vol BP MOD 26.8 mL RA Volume RA Area A4C 12.4 cm2 RA ESV A4C (A-L) 30.9mL RA Vol/BSA A4C A-L RA Length A4C 4.2 cm RA ESV A4C (MOD) 29.4mL LV Diastology MV E' medial 0.072 (>0.07 m/s) MV E Vmax 0.59 (0.4-1.3 m/s) MV E/E' MED 8.17 (<14) MV A Vmax 0.55 (0.4-1.3 m/s) MV E' lateral 0.110 (>0.1 m/s) E/A Ratio 1.1 MV E/E' LAT 5.38 (<14) MV E' Average 0.091 m/s MV E/E'(average) 6.48 Aortic Valve AoV Vmax 1.14 m/s LVOT Vmax 1.01 m/s AoV Peak Grad 5.2 mmHg LVOT Peak Grad 4.1 mmHg AoV Area (Vmax) 2.77 cm2 LVOT VTI 0.179 m AoV VTI 0.216 m LVOT Mean Grad 2.2 mmHg AoV Mean Victor Hugo. 0.82 m/s LVOT SV 55.94 mL AoV Mean Grad 3.1 mmHg LVOT Diam s 1.95 cm AoV Area (VTI) 2.59 cm2 Velocity Ratio 0.89 Mitral Valve MV DT 254 (160-240 msec) MV Vmax TIPS 0.65 m/s MV Mean Grad 0.8 (<2mmHg) MV VTI 0.226 m Pulmonary Valve PV Vmax 0.61 (0.5-1.5 m/s) RVOT Vmax 0.61 m/s PV Peak Grad 1.5 mmHg RVOT Peak Gr. 1.5 mmHg PV Mean Grad 0.9 mmHg RVOT VTI 0.128 m RVOT Mean Gr. 0.9 mmHg Tricuspid Valve RA Pressure 3.00 mmHg TV S' 0.15 m/s
== END ==
PROVIDERS: PCP Nurse Practitioner Family; Visit Provider Internal Medicine Cardiovascular Disease
DX: I50.20 Unspecified systolic (congestive) heart failure (principal); I25.10 Atherosclerotic heart disease of native coronary artery without angina pectoris; I34.0 Nonrheumatic mitral (valve) insufficiency; I36.1 Nonrheumatic tricuspid (valve) insufficiency
CPT/HCPCS: 93306

== ENCOUNTER 2023-07-21 06:02 | Outpatient (CLI) | payer MEDICAID, SELFPAY ==
[2023-07-21 12:22] LABS: Abs Immature Grans 0.04 10^3/uL (0.0-0.06); Absolute Basophil Count 0.11 10^3/uL (0.0-0.2); Absolute Eosinophil Count 0.32 10^3/uL (0.0-0.7); Absolute Lymphocyte Count 1.95 10^3/uL (1.2-3.4); Absolute Monocyte Count 0.78 10^3/uL (0.1-0.8); Absolute Neutrophil Count 5.26 10^3/uL (1.2-6.7); Basophils % 1.3 %; Eosinophils % 3.8 %; HCT 44.3 % (40.0-50.0); HGB 14.8 g/dL (13.5-17.5); Immature Grans % 0.5 %; MCH 29.9 pg (27.0-33.0); MCHC 33.4 % (32.0-36.0); MCV 90 fL (80-95); MPV 9.7 fL (8.0-11.0); Monocytes % 9.2 %; Neutrophils % 62.2 %; Platelet Count 377 10^3/uL (130-400); RBC 4.95 10^6/uL (4.36-5.78); RDW 11.9 % (11.8-14.1); RDW-SD 39.1 fL; WBC 8.46 10^3/uL (4.4-10.8)
[2023-07-21 12:41] LABS: ALT 21 U/L (16-63); AST 14 U/L (15-37); Albumin 4.6 g/dL (3.4-5.0); Alkaline Phosphatase 80 U/L (46-116); Anion Gap 7.8 mmol/L (3-11); BUN 7 mg/dL (7-18); Bilirubin, Total 0.3 mg/dL (0.2-1.0); CO2 31.2 mmol/L (21.0-32.0); Calcium 9.8 mg/dL (8.5-10.1); Chloride 100 mmol/L (98-107); Estimated GFR 91.12 (mL/min/1.73m2); FREE T4 1.04 ng/dL (0.76-1.46); Glucose 111 mg/dL (74-106); Magnesium 2.1 mg/dL (1.8-2.4); Potassium 4.4 mmol/L (3.5-5.1); Sodium 139 mmol/L (136-145); TSH 0.92 uIU/Ml (0.36-3.74); Total Protein 8.8 g/dL (6.4-8.2)
== END 2023-07-21 06:03 | disposition home or self-care (01) ==
PROVIDERS: Visit Provider Nurse Practitioner
DX: C79.51 Secondary malignant neoplasm of bone (principal); C34.31 Malignant neoplasm of lower lobe, right bronchus or lung; Z79.899 Other long term (current) drug therapy
CPT/HCPCS: 36415; 80053; 83735; 84439; 84443; 85025

== ENCOUNTER → 2023-09-15 02:13 | Outpatient (CLI) | payer MEDICAID, SELFPAY ==
--- NOTE | 2023-09-15 | DI.CT_ITS ---
Exam(s) CT CHEST W EXAM: CT CHEST W CLINICAL HISTORY: CANCER OF LOWER LOBE, R BRONCHUS OR LUNG C34.31. TECHNIQUE: Multi planar reconstructions were performed. CONTRAST MATERIAL: Omnipaque 350; 75 cc COMPARISON: CR,XR XR PORTABLE CHEST AP from 04/19/[address] CHEST W from 05/15/2023 FINDINGS: CHEST: LUNGS: Severe COPD emphysematous changes are again noted. There are no new significant focal left meet ng findings. In the right lung previously described infiltrate versus rounded atelectasis is again noted. However , there is now a concerning new finding in the right lung base contiguous with the hemidiaphragm over the right lower lobe. There is now cavitated and partially fluid-filled mass at this level measurin g approximately 5 cm AP by 4 cm wide by 5 cm craniocaudal, this associated with a small-moderate size unilateral right pleural effusion MEDIASTINUM: No gross hilar adenopathy. No adenopathy in the anterior mediastinal fat. Slightly enl arged lymph nodes in the right paratracheal region noted. There is an enhancing subcarinal density m easuring 3 cm wide by 1 cm AP, possibly adenopathy . partially visualized thyroid gland appears unrem arkable. CARDIAC: Heart size is normal. There is no pericardial effusion.Caliber of the thoracic aorta is wit hin normal limits. VISUALIZED UPPER ABDOMEN:There are no significant adrenal masses. OSSEOUS: Post surgical rib changes posteriorly on the right side again noted. No significant osseous lesions.. IMPRESSION: There has been significant deterioration when compared to CT scan of May 2023. in addition to the severe COPD and previously described right lung base findings there is now a 5 x 4 x 5 cm partially c avitated mass in the right lower lobe associated with a small-moderate size ipsilateral right pleural effusion. This finding is significantly suspicious for neoplasm/malignancy. RADIATION DOSE DELIVERED: Total DLP DATA REPOSITORY: All CT scans at this facility are submitted to the National Radiology Data Registry (NRDR) Dose Index Registry (DIR) with the [employer] (ACR). RADIATION OPTIMIZATION: All CT scans at this facility use at least one of these dose optimization te chniques: automated exposure control; mA and/or kV adjustment per patient size (includes targeted exa ms where dose is matched to clinical indication); or iterative reconstruction.
--- OUTSIDE RECORDS SUMMARY | 2023-09-15 02:18 | XMS_ITS ---
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 Medication management 07/17/2021 Malignant neoplasm of lower lobe, right bronchus or lung 07/05/2021 Cancer Staging:Clinical stage from 07/18/2021:Stage IVB(cT3, cN2, cM1c) - Signed by Cody Frazier MD on 07/18/2021 Lung mass 06/26/2021 Current Oncology Plans [facility] AMB ONC NONSMALL CELL LUNG CANCER - CARBOplatin / PEMEtrexed* Plan Start Date:09/16/2022 Plan Provider:Cody Frazier MD Linked Problems Malignant neoplasm of lower lobe, right bronchus or lungSecondary malignant neoplasm of boneMedication management Treatment Medications Current Day (Day 1 , Cycle 8 - Planned for 06/02/2023) Next Day (Day 1, Cycle 9 - Planned for 06/23/2023) CARBOplatin (Paraplatin) in 150 mL infusionPEMEtrexed (Alimta) in sodium chloride 0.9% 100 mL infusion PEMEtrexed disodium (Alimta) 900 mg in sodium chloride 0.9% 136 mL infusion PEMEtrexed disodium (Alimta) 900 mg in sodium chloride 0.9% 136 mL infusion [facility] HYDRATION / ELECTROLYTES / NAUSEA & VOMITING* Plan Start Date:02/18/2022 Plan Provider:LaRoza, Bea A, ADVERTISING EXECUTIVE Linked Problems Malignant neoplasm of lower lobe, right bronchus or lung Treatment Medications No medications scheduled. Past Plans ADULT TREATMENT Plan Name Start Date Discontinue Date Treatment Medications Discontinue Reason Plan Provider Cycles [facility] AMB ONC NONSMALL CELL LUNG CANCER - CARBOplatin / PACLitaxel ALBUMIN-BOUND (ABRAXANE) / PEMBROLIZUMAB 07/24/1909/05/2022 CARBOplatin (Paraplatin) in 150 mL infusionPACLitaxeL albumin-bound (Abraxane)pembrolizu mab (Keytruda) in sodium chloride 0.9% 100 mL infusion Progression Cody Frazier MD 16 of 16 cycles started Radiation Treatments * No radiation treatments are documented for this patient in [facility]. Treatments may have been administered in another system.
--- OUTSIDE RECORDS SUMMARY | 2023-09-15 02:18 | XMS_ITS | Encounter Summary ---
Author Organization [facility] Address [facility] [place] [address] Care Team Providers Care Client Application Support Engineer Name Role Phone Nikki Hermosillo IGNACIA Primary Care Provider Reason for Visit * Reason Onset Date Comments Medication Refill 07/25/2023 Encounter Details Date Type Department Care Team (Late st Contact Info) Description 07/25/2023 Telephone Hematology/Oncology at [address] [phone] Bea Grimes APRN [address] [place] [address] HEMATOLOGY AND ONCOLOGY [place], [place] [id number] Medication Refill Social History Tobacco Use Types Packs/Day Years Used Date Smoking Tobacco: Some Days Cigarettes 0.3 42.6 Started: 1980 Smokeless Tobacco: Never Comments:10 per day- rarely Alcohol Use Standard Drinks/Week Comments Yes 1 (1 standard drink = 0.6 oz pur e alcohol) recently not as often [facility] Utilities Answer Date Recorded In the past 12 months has [employer], gas, oil, or water eGood threatened to shut off services in your home? No 04/25/2023 Overall Financial Resource Strain (CARDIA) Answe r Date Recorded How hard is it for you to pa y for the very basics like food, housing, medical care, and heating? Hard 07/16/2021 Hunger Vital Sign Answer Date Recorded Within the past 12 months, y ou worried that your food would run out before you got the money to buy more. Never true 04/25/19 24 Within the past 12 months, t he food you bought just didn't last and you didn't have money to get more. Never true 04/25/2023 PRAPARE - Transportation Answer Date Re corded In the past 12 months, has l ack of transportation kept you from medical appointments or from getting medications? No 04/10 In the past 12 months, has l ack of transportation kept you from meetings, work, or from getting things needed for daily living? No 04/25/2023 Housing Stability Vital Sign Answer Deni e Recorded In the last 12 months, was t here a time when you were not able to pay the mortgage or rent on time? No 04/25/2023 In the last 12 months, how many places have you lived? 1 04/25/2023 In the last 12 months, was t here a time when you did not have a steady place to sleep or slept in a detention (including now)? No 04/25/2023 DH IPV Inpatient Questions Answer Date Recorded Does Anyone Try to Keep You From Having Contact with Others or Doing Things Outside Your Home? no 04/24/2023 Feels Threatened by Someone no 04/10 Feels Unsafe at Home or Work/School no 04/24/2023 Physical Signs of Abuse Present no 04/24/2023 Sex and Gender Information Value Date Recorded Sex Assigned at Not on file Gender Identity Not on file Sexual Orientation Not on file documented as of this encounter Miscellaneous Notes * Telephone Encounter - Bandar Dillard RN - 07/25/2023 11:10 AM EDT Checked against chart, sent to provider to review and sign. ---- Message from Anna Frost sent at 07/25/2023 10:25 AM EDT ----- Regarding: HYDROmorphone (Dilaudid) 4 mg tablet [[id number]] Alexis called in to say that he is going to run out of his HYDROmorphone (Dilaudid) 4 mg tablet [[id number]] by Friday. He would like for them to send an order to [facility] in [facility] please Callback for questions is [phone] documented in this encounter Plan of Treatment Upcoming Encounters Date Type Department Care Team (Late Contact Info) Description 09/22/2023 2:30 PM EDT Office Visit Hematology/Oncology at [address] [phone] Cody Frazier MD [facility] DR HEMATOLOGY [place] [address] documented as of this encounter Visit Diagnoses Diagnosis Neoplasm related pain Neoplasm related pain (acute) (chronic) documented in this encounter Care Teams Client Application Support Engineer Relationship Specialty Start Date End Date Nikki Hermosillo, WOODWORK TEACHER [place] [address] [place] [address] PCP - General Family Medicine 04/25/23 documented as of this encounter
--- OUTSIDE RECORDS SUMMARY | 2023-09-15 02:18 | XMS_ITS | Encounter Summary ---
Author Organization [facility] Address [facility] [place] [address] Care Team Providers Care Correspondence Transcriber Name Role Phone Nikki Hermosillo IGNACIA Primary Care Provider [phone] Encounter Details Date Type Department Care Team (Late st Contact Info) Description 07/14/2023 Telephone Hematology/Oncology at [address] [phone] Bea Grimes APRN [address] [place] [address] [place] [address] Social History Tobacco Use Types Packs/Day Years Used Date Smoking Tobacco: Some Days Cigarettes 0.3 42.6 Started: 1980 Smokeless Tobacco: Never Comments:10 per day- rarely Alcohol Use Standard Drinks/Week Comments Yes 1 (1 standard drink = 0.6 oz pur e alcohol) recently not as often [facility] Utilities Answer Date Recorded In the past 12 months has th e electric, gas, oil, or water company threatened to shut off services in your [...] place to sleep or slept in a halfway (including now)? No 04/25/2023 DH IPV Inpatient [...] on file documented as of this encounter Plan of Treatment Upcoming Encounters Date Type Department Care Team (Late st Contact Info) Description 09/22/2023 2:30 PM EDT Office Visit Hematology/Oncology at [address] [phone] Cody Frazier MD [facility] DR HEMATOLOGY [place] [address] documented as of this encounter Visit Diagnoses Diagnosis Malignant neoplasm of lower lobe, right bronchus or lung documented in this encounter Care Teams Correspondence Transcriber Relationship Specialty Start Date End Date Nikki Hermosillo APRN [address] [place] [address] PCP - General Family Medicine 04/25/23 documented as of this encounter
--- OUTSIDE RECORDS SUMMARY | 2023-09-15 02:18 | XMS_ITS | Encounter Summary ---
Author Organization [facility] Address [facility] [place] [address] Care Team Providers Care Mask Designer Name Role Phone Nikki Hermosillo APRN Primary Care Provider [phone] Encounter Details Date Type Department Care Team (Late st Contact Info) Description 05/15/2023 7:40 PM EDT Ancillary Procedure Radiology Library at [facility] [place] [phone] Nikki Hermosillo APRN [address] [place] [address] Social History Tobacco Use Types Packs/Day Years Used Date Smoking Tobacco: Some Days Cigarettes 0.3 42.6 Started: 1980 Smokeless Tobacco: Never Comments:10 per day- rarely Alcohol Use Standard Drinks/Week Comments Yes 1 (1 standard drink = 0.6 oz pur e alcohol) recently not as often [facility] Utilities Answer Date Recorded In the past 12 months has e electric, gas, oil, or water company [...] place to sleep or slept in a group home (including now)? No 04/25/2023 IPV Inpatient Questions Answer Date Recorded Does [...] 2:30 PM EDT Office Visit Hematology/Oncology at [address] [phone] Cody Frazier MD [facility] DR HEMATOLOGY [place] [address] documented as of this encounter Procedures Procedure Name Priority Date/Time Associated Diagnosis Comments FILM LIBRARY STORAGE ONLY CT CHEST Routine 05/15/2023 7:37 PM EDT documented in this encounter Results * Film Library- Storage Only CT Chest (05/15/2023 7:37 PM EDT) Narrative RAD - 05/15/2023 7:37 PM EDT This exam is auto-finalizing. It's purpose is for storage only. Nikki Hermosillo APRN IMG FILM LIBRARY ORD ERABLES [facility] RAD [place], [place] documented in this encounter Visit Diagnoses Not on filedocumented in this encounter Care Teams Mask Designer Relationship Specialty Start Date End Date Nikki Hermosillo APRN [address] [address] PCP - General Family Medicine 04/25/23 documented as of this encounter
--- OUTSIDE RECORDS SUMMARY | 2023-09-15 02:18 | XMS_ITS | Encounter Summary ---
Author Organization [facility] Address [facility] [place] [address] Care Team Providers Care Phlebotomy Director Name Role Phone Nikki Hermosillo IGNACIA Primary Care Provider [phone] Encounter Details Date Type Department Care Team (Late st Contact Info) Description 08/11/2023 Telephone Hematology/Oncology at [address] [phone] Bea Grimes APRN [address] [place] [address] DR [place] [address] Social History Tobacco Use Types Packs/Day Years Used Date Smoking Tobacco: Some Days Cigarettes 0.3 42.6 Started: 1980 Smokeless Tobacco: Never Comments:10 per day- rarely Alcohol Use Standard Drinks/Week Comments Yes 1 (1 standard drink = 0.6 oz pur e alcohol) recently not as often [facility] Utilities Answer Date Recorded In the [...] place to sleep or slept in a assisted (including now)? No 04/25/2023 DH IPV Inpatient [...] 2:30 PM EDT Office Visit Hematology/Oncology at [address] [phone] Cody Frazier MD [facility] DR [place] [address] documented as of this encounter Visit Diagnoses Diagnosis Malignant neoplasm of lower lobe, right bronchus or lung documented in this encounter Care Teams Phlebotomy Director Relationship Specialty Start Date End Date Nikki Hermosillo APRN [address] [place] [address] PCP - General Family Medicine 04/25/23 documented as of this encounter
--- OUTSIDE RECORDS SUMMARY | 2023-09-15 02:18 | XMS_ITS | Encounter Summary ---
Author Organization [facility] Address [facility] [place] [address] Care Team Providers Care Infection Prevention Specialist Name Role Phone Nikki Hermosillo IGNACIA Primary Care Provider [phone] Encounter Details Date Type Department Care Team (Late st Contact Info) Description 05/26/2023 Telephone Hematology/Oncology at [address] [phone] Bea Grimes APRN [address] [place] [address] DR HEMATOLOGY [place] [address] Social History Tobacco Use Types Packs/Day Years Used Date Smoking Tobacco: Some Days Cigarettes 0.3 42.6 Started: 1980 Smokeless Tobacco: Never Comments:10 per day- rarely Alcohol Use Standard Drinks/Week Comments Yes 1 (1 standard drink = 0.6 oz pur e alcohol) recently not as often [facility] Utilities Answer Date Recorded In the past [...] place to sleep or slept in a long term (including now)? No 04/25/2023 DH IPV Inpatient [...] 2:30 PM EDT Office Visit Hematology/Oncology at [address] [phone] Cody Frazier MD [facility] DR HEMATOLOGY [place] [address] documented as of this encounter Visit Diagnoses Diagnosis Neoplasm related pain Neoplasm related pain (acute) (chronic) documented in this encounter Care Teams Infection Prevention Specialist Relationship Specialty Start Date End Date Nikki Hermosillo APRN [place] [address] PCP - General Family Medicine 04/25/23 documented as of this encounter
--- OUTSIDE RECORDS SUMMARY | 2023-09-15 02:18 | XMS_ITS | Encounter Summary ---
Author Organization Formerly [facility] Address [facility] [place] [address] Care Team Providers Care Warp Tester Name Role Phone Nikki Hermosillo IGNACIA Primary Care Provider [phone] Encounter Details Date Type Department Care Team (Late st Contact Info) Description 07/21/2023 Orders Only Hematology/Oncology at [address] [phone] Bea Grimes APRN [address] [place] [address] DR HEMATOLOGY [place] [address] Malignant neoplasm of lower lobe, right bronchus or lung; High risk medication use Social History Tobacco Use Types Packs/Day Years Used Date Smoking Tobacco: Some Days Cigarettes 0.3 42.6 Started: 1980 Smokeless Tobacco: Never Comments:10 per day- rarely Alcohol Use Standard Drinks/Week Comments Yes 1 (1 standard drink = 0.6 oz pur e alcohol) recently not as often [facility] Utilities Answer Date Recorded In the past 12 months has [employer], gas, oil, or water [employer] threatened to shut off services in your [...] place to sleep or slept in a mcc (including now)? No 04/25/2023 DH IPV Inpatient [...] 2:30 PM EDT Office Visit Hematology/Oncology at [address] [phone] Cody Frazier MD [facility] [place] [address] Scheduled Orders Name Type Priority Associated Diagnoses Orde r Schedule Magnesium Lab STAT Malignant neoplasm of lower lobe, right bronchus or lung Once a week for 48 Occurrences starting 07/21/2023 until 07/20/2024 Comprehensive metabolic panel (non-fasting) Lab STAT Malignant neoplasm of lower lobe, right bronchus or lung Once a week for 48 Occurrences starting 07/21/2023 until 07/20/2024 CBC (with Diff) Lab STAT Malignant neoplasm of lower lobe, right bronchus or lung Once a week for 48 Occurrences starting 07/21/2023 until 07/20/2024 TSH Lab STAT High risk medication use Once a week for 48 Occurrences starting 07/21/2023 until 07/20/2024 T4, free Lab Routine High risk medication use Once a week for 48 Occurrences starting 07/21/2023 until 07/20/2024 documented as of this encounter Visit Diagnoses Diagnosis Malignant neoplasm of lower lobe, right bronchus or lung High risk medication use Encounter for long-term (current) use of other medications documented in this encounter Care Teams Warp Tester Relationship Specialty Start Date End Date Nikki Hermosillo, PHOTOGRAPHIC ENLARGER OPERATOR [facility] [place] [address] PCP - General Family Medicine 04/25/23 documented as of this encounter
--- OUTSIDE RECORDS SUMMARY | 2023-09-15 02:18 | XMS_ITS | Encounter Summary ---
Author Organization [facility] Address [facility] [place] [address] Care Team Providers Care Nail Sticker Name Role Phone Nikki Hermosillo APRN Primary Care Provider [phone] Encounter Details Date Type Department Care Team (Latest Contact Info) Description 07/21/2023 Travel Social History Tobacco Use Types Packs/Day Years Used Date Smoking Tobacco: Some Days Cigarettes 0.3 42.6 Started: 1980 Smokeless Tobacco: Never Comments:10 per day- rarely Alcohol Use Standard Drinks/Week Comments Yes 1 (1 standard drink = 0.6 oz pur e alcohol) recently not as often [facility] Utilities Answer Date Recorded In the past [...] place to sleep or slept in a prison (including now)? No 04/25/2023 DH IPV Inpatient [...] 2:30 PM EDT Office Visit Hematology/Oncology at [address] [phone] Cody Frazier MD [facility] DR HEMATOLOGY [place] [address] documented as of this encounter Visit Diagnoses Not on filedocumented in this encounter Care Teams Nail Sticker Relationship Specialty Start Date End Date Nikki Hermosillo APRN [place] [address] PCP - General Family Medicine 04/25/23 documented as of this encounter
--- OUTSIDE RECORDS SUMMARY | 2023-09-15 02:18 | XMS_ITS | Encounter Summary ---
Author Organization [facility] Address [facility] [place] [address] Care Team Providers Care Education And Training Manager Name Role Phone Nikki Hermosillo APRN Primary Care Provider Encounter Details Date Type Department Care Team (Latest Contact Info) Description 06/02/2023 Travel Social History Tobacco Use Types Packs/Day Years Used Date Smoking Tobacco: Some Days Cigarettes 0.3 42.6 Started: 1980 Smokeless Tobacco: Never Comments:10 per day- rarely Alcohol Use Standard Drinks/Week Comments Yes 1 (1 standard drink = 0.6 oz pur e alcohol) recently not as often [facility] Utilities Answer Date Recorded In the [...] place to sleep or slept in a custodial (including now)? No 04/25/2023 DH IPV Inpatient [...] 2:30 PM EDT Office Visit Hematology/Oncology at [address] [phone] Cody Frazier MD [facility] [place] [address] documented as of this encounter Visit Diagnoses Not on filedocumented in this encounter Care Teams Education And Training Manager Relationship Specialty Start Date End Date Nikki Hermosillo APR[place] [address] PCP - General Family Medicine 04/25/23 documented as of this encounter
--- OUTSIDE RECORDS SUMMARY | 2023-09-15 02:18 | XMS_ITS | Clinical Summary ---
Author Organization [facility] Address [facility] [place] [address] Care Team Providers Care Engineering Agent Name Role Phone Nikki Hermosillo IGNACIA Primary Care Provider Allergies Active Allergy Reactions Criticality Noted Date Comments Amitriptyline Other (See Comments) 12/03/2021 Patient reports agitation and insomnia Dog Dander Shortness Of Breath High 04/23/2023 Magnesium Oxide Rash Medium 01/14/2022 Medications Medication Sig Dispensed Refills Start Date End Date Status Spiriva with HandiHaler 18 mcg Capsule, w/Inhalation Device Inhale 18 mcg into the lungs daily. 01/23/2021 Active ProAir HFA 90 mcg/actuation HFA Aerosol Inhaler Inhale 2 puffs into the lungs every 4 hours as needed. EVERY 4 TO 6 HOURS NEEDED PRN 05/25/2021 Active ProChamber Spacer 01/23/2021 Active acetaminophen (Tylenol) 500 mg Tablet Take 1,000 mg by mouth every 6 hours as needed for Pain. Active prochlorperazine (Compazine) 10 mg Tablet Take 1 tablet by mouth every 6 hours as needed for Nausea. 30 tablet 3 07/16/2021 Active omeprazole (PriLOSEC) [address] capsuleIndications: Gastroesophageal reflux disease, unspecified whether esophagitis present Take 1 capsule by mouth daily. 30 capsule 05/22/2022 Active folic acid (Vitamin B9) 1 mg tablet Take 1 tablet by mouth daily. 90 tablet 3 09/02/2022 Active Advair Diskus 250-50 mcg/dose Disk with Device Inhale 1 puff into the lungs 2 times daily. 1 each 12 04/26/2023 Active cholecalciferol (Vitamin D) 1,000 unit tablet Take 1 tablet by mouth daily. 90 tablet 3 04/26/2023 Active aspirin 81 mg chewable tablet Take 81 mg by mouth daily. 30 tablet 3 04/26/2023 Active losartan (Cozaar) 25 mg tablet Take 1 tablet by mouth daily. 90 tablet 3 04/26/2023 Active polyethylene glycoL (Miralax) 17 gram oral powder packet Take 17 g by mouth daily as needed. 14 each 04/26/2023 Active Additional Information Patient not taking.Reported on 06/02/2023 rosuvastatin (Crestor) 10 mg tablet Take 1 tablet by mouth every evening. 90 tablet 3 04/26/2023 Active senna-docusate (Pericolace) 8.6-50 mg Tablet Take 1 tablet by mouth daily. 60 tablet 11 04/26/2023 Active Additional Information Patient not taking.Reported on 06/02/2023 droNABinoL (Marinol) 10 mg capsuleIndications: Chemotherapy induced nausea and vomiting Take 1 capsule by mouth 2 times daily (before meals). 60 capsule 3 06/24/2023 Active Additional Information Patient not taking.Reported on 07/21/2023 pregabalin (Lyrica) 50 mg capsuleIndications: Neoplasm related pain,Malignant neoplasm of lower lobe, right bronchus or lung,Secondary malignant neoplasm of bone TAKE ONE CAPSULE BY MOUTH TWICE A DAY 60 capsule 5 07/21/2023 Active HYDROmorphone (Dilaudid) 4 mg tabletIndications:N eoplasm related pain Take 1 tablet by mouth every 6 hours as needed for Pain. 120 tablet 08/25/2023 Active morphine CR (MS Contin) 100 mg ER tabletIndications:M alignant neoplasm of lower lobe, right bronchus or lung Take 1 tablet by mouth 3 times daily. 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 Medication management 07/17/2021 Malignant neoplasm of lower lobe, right bronchus or lung 07/05/2021 Cancer Staging:Clinical stage from 07/18/2021:Stage IVB(cT3, cN2, cM1c) - Signed by Cody Frazier MD on 07/18/2021 Lung mass 06/26/2021 Encounters Date Type Department Care Team Description 09/08/2023 Telephone Hematology/Oncolog y at [address] [phone] Bea Grimes APRN 08/25/2023 Orders Only Hematology Oncology at [address] [phone] Nathaly Mart RN Neoplasm related pain 08/12/2023 Refill Hematology/Oncolog y at [address] [place] [phone] Cody Frazier MD 08/11/2023 Telephone Hematology/Oncolog y at [address] [place] [phone] Bea Grimes APRN 07/25/2023 Telephone Hematology/Oncolog y at [address] [place] [phone] Bea Grimes APRN Medication Refill 07/21/2023 2:00 PM EDT Office Visit Hematology/Oncolog y at [address] [place] [phone] Cody Frazier MD LaRoza, Stephanie A, APRN Malignant neoplasm of lower lobe, right bronchus or lung; Secondary malignant neoplasm of bone 07/21/2023 Orders Only Hematology/Oncolog y at [address] [place] [phone] Bea Grimes APRN Malignant neoplasm of lower lobe, right bronchus or lung; High risk medication use 07/21/2023 Travel 07/21/2023 Refill Hematology/Oncolog y at [address] [place] [phone] Bea Grimes APRN Neoplasm related pain; Malignant neoplasm of lower lobe, right bronchus or lung; Secondary malignant neoplasm of bone 07/18/2023 12:00 PM EDT - 07/18/2023 11:59 PM EDT Hospital En[place] [phone] Cody Frazier MD Malignant neoplasm of lower lobe, right bronchus or lung; Secondary malignant neoplasm of bone Discharge Disposition: Home 07/14/2023 Telephone Hematology/Oncolog y at [address] [phone] Bea Grimes APRN 06/24/2023 Telephone Hematology/Oncolog y at [address] [phone] Cody Frazier MD Medication Refill 06/16/2023 Telephone Hematology/Oncolog y at [address] [phone] Bea Grimes APRN from Last 3 Months Family History Medical History Relation Comments Alzheimer Disease Father Breast Cancer Mother Relation Status Comments Father Mother Social History Tobacco Use Types Packs/Day Years Used Date Smoking Tobacco: Some Days Cigarettes 0.3 42.6 Started: 1980 Smokeless Tobacco: Never Tobacco Cessation:Ready to Q uit: Not Asked; Counseling Given: Not Answered Comments:10 per day- rarely Alcohol Use Standard Drinks/Week Comments Yes 1 (1 standard drink = 0.6 oz pur e alcohol) recently not as often [facility] Utilities Answer Date Recorded In the past 12 months has th e electric, gas, oil, or water [employer] threatened to shut off services in your [...] on file Sexual Orientation Not on file Last Filed Vital Signs Vital Sign Reading Time Taken Comments Blood Pressure 132/78 07/21/2023 1:46 PM EDT Pulse 82 07/21/2023 1:46 PM EDT Temperature 36.5 ??C (97.7 ??F) 07/21/2023 1:46 PM ED T Respiratory Rate 18 07/21/2023 1:46 PM EDT Oxygen Saturation 96% 07/21/2023 1:46 PM EDT Inhaled Oxygen Concentration - - Weight 73.3 kg (161 lb 9.6 oz) 07/21/2023 1:46 P M EDT Height 180.3 cm (5' 10.98) 07/21/2023 1:46 PM E DT Body Mass Index 22.55 07/21/2023 1:46 PM EDT Plan of Treatment Upcoming Encounters Date Type Department Care Team (Late st Contact Info) Description 09/22/2023 2:30 PM EDT Office Visit Hematology/Oncology at [address] [phone] Cody Frazier MD [facility] DR HEMATOLOGY [place] [address] Health Maintenance Due Date Last Done Comments CT Colonography 1971 Colonoscopy 1971 Colorectal Cancer Screening 1971 FIT DNA 1971 FIT 1971 Sigmoidoscopy (10 year) with FIT yearly 1971 Sigmoidoscopy 1971 Pneumococcal Vaccine: At-Risk 5-64yrs (1 of 2 - PCV) 0 10/08/1977 Hepatitis B vaccine (0-59 yrs) (1) 10/08/1990 Tdap adult 10/08/1990 Tetanus vaccine 10/08/1990 Zoster vaccine (1 of 2) 10/08/2021 Covid-19 Vaccine (1 - 2022-24 season) 2022 Influenza (Flu) vaccine (1 o f 1 - Influenza standard series) 10/12/2023 Lipid Screening Discontinued 04/24/2023 HIV screen Completed 04/26/2023 Hepatitis C Screening Completed 04/26/2023 Procedures Procedure Name Priority Date/Time Associated Diagnosis Comments LAB SCAN 07/22/2023 12:00 AM EDT LAB SCAN 07/21/2023 12:00 AM EDT NM [facility] PET CT SKULL BASE TO MID-THIGH Routine 07/18/2023 12:00 PM EDT Malignant neoplasm of lower lobe, right bronchus or lung Secondary malignant neoplasm of bone HIV SCREEN, 4TH GENERATION ([facility]/CGP/APD/NLH) Routine 04/26/2023 12:30 AM EDT HEPATITIS C ANTIBODY Routine 04/26/2023 12:30 AM EDT LIPID PANEL (REFLEX DIRECT LDL) Routine 04/24/2023 4:29 AM EDT from Last 3 Months or Most Recently Relevant to Health Maintenance Results * Scan Doc: Lab (07/22/2023 12:00 AM EDT) Only the most recent of2 resultswithin the time period is included. Narrative 07/22/2023 12:00 AM EDT Ordered by an unspecified provider. Scanning Provider MEDIA MGR SCAN EXT O RDR/RSLT * NM [place] PET CT Skull Base to Mid-thigh (07/18/2023 12:00 PM EDT) WORKSTATION ID [id number] RAD Anatomical Region Laterality Modality Positron Emissio n Tomography (PET) Impressions 07/24/2023 10:46 AM EDT 1. ??Small focus of FDG avid nodular thickening in the posterior right upper lobe with associated small central calcification, similar in size dating back to CT of 03/03/2023. Appearance is more suggestive of a chronic inflammatory lesion. Attention on follow-up recommended. 2. ??No evidence of recurrent malignancy in the right lower lobe. 3. ??No evidence of active metastatic disease. I have personally reviewed the image(s) and the resident's interpretation and agree with the findings, Kentrell Muhammad MD at 07/24/2023 10:46 AM Thank you for letting us participate in the care of this patient. ??If you are a health care provider and have any questions regarding this report, please contact the number below. ??For patients who have questions please contact the health pet care worker that requested your imaging first. ? Electronically signed by: Kentrell Muhammad MD, [facility] ([phone]), at 07/24/2023 10:46 AM Narrative 07/24/2023 10:46 AM EDT EXAMINATION: NM [facility] PET CT SKULL BASE TO MID-THIGH CLINICAL HISTORY: Non-small cell lung cancer, assess treatment response 52 yo with metastatic NSCLC. ??Restaging C34.31, Malignant neoplasm of lower lobe, right bronchus or lung - C79.51, Secondary malignant neoplasm of bone TECHNIQUE: Following IV injection of 40-wuiora-9-deoxyglucose (FDG) a standard uptake of approximately 60 minutes, a noncontrast CT scan followed by a PET scan were acquired from the base of the skull to mid thighs. The noncontrast CT was used for anatomic localization and photon attenuation correction of the PET scan. Blood glucose level: 117 (mg/dL) FDG dose: 12.8 mCi COMPARISON: CT chest 05/15/2023, 03/03/2023 PET/CT 01/18/2022 FINDINGS: HEAD/NECK: Normal activity in all soft tissue regions of the neck and visualized lower head. Unchanged right maxillary sinus partial opacification. CHEST: Small focus of FDG avid nodular thickening in the posterior right upper lobe with associated small central calcification (axial image 92), similar in anatomic appearance compared to CT of 05/15/2023 and also similar in size compared to CT of 03/03/2023. Non-FDG avid ill-defined consolidative opacity in the posterior right lower lobe (centered on axial image 114), unchanged compared to CT of 03/03/2023, and consistent with post treatment change. ?? Non-FDG avid ill-defined nodular opacity in the lateral right upper lobe (axial image 97), unchanged compared to CT of 03/03/2023. Small non-FDG avid lymph nodes in the right paratracheal region are unchanged compared to CT of 03/03/2023. Severe bullous emphysematous changes with apical predominance. No new lung nodules. Coronary and aortic calcifications. ABDOMEN/PELVIS: Normal activity in all soft tissue regions. No adenopathy. Large post void urinary bladder residual. SKELETON/EXTREMITIES: Non-FDG avid lytic lesion in the right posterior ninth rib, consistent treated osseous metastasis. Unchanged non-FDG avid benign-appearing fracture of the right posterior 11th rib. Diffuse linear FDG avidity in the right lower thoracic paraspinous musculature is consistent with muscle tension or strain. Procedure Note Kentrell Muhammad MD - 07/24/2023 EXAMINATION: [facility] PET CT SKULL BASE TO MID-THIGH CLINICAL HISTORY: Non-small cell lung cancer, assess treatment response 52 yo with metastatic NSCLC. Restaging C34.31, Malignant neoplasm of lower lobe, right bronchus or lung -C79.51, Secondary malignant neoplasm of bone TECHNIQUE: Following IV injection of 19-uzlkof-7-deoxyglucose (FDG) astandard uptake of approximately 60 minutes, a noncontrast CT scan followed by aPET scan were acquired from the base of the skull to mid thighs. The noncontrast CTwas used for anatomic localization and photon attenuation correction of thePET scan. Blood glucose level: 117 (mg/dL) FDG dose: 12.8 mCi COMPARISON: CT chest 05/15/2023, 03/03/2023 PET/CT 01/18/2022 FINDINGS: HEAD/NECK: Normal activity in all soft tissue regions of the neck and visualizedlower head. Unchanged right maxillary sinus partial opacification. CHEST: Small focus of FDG avid nodular thickening in the posterior right upperlobe with associated small central calcification (axial image 92), similar in anatomic appearance compared to CT of 05/15/2023 and also similar in sizecompared to CT of 03/03/2023. Non-FDG avid ill-defined consolidative opacity in the posterior rightlower lobe (centered on axial image 114), unchanged compared to CT of 03/03/2023,and consistent with post treatment change. Non-FDG avid ill-defined nodular opacity in the lateral right upper lobe(axial image 97), unchanged compared to CT of 03/03/2023. Small non-FDG avid lymph nodes in the right paratracheal region areunchanged compared to CT of 03/03/2023. Severe bullous emphysematous changes with apical predominance. No newlung nodules. Coronary and aortic calcifications. ABDOMEN/PELVIS: Normal activity in all soft tissue regions. No adenopathy. Large post void urinary bladder residual. SKELETON/EXTREMITIES: Non-FDG avid lytic lesion in the right posterior ninth rib, consistenttreated osseous metastasis. Unchanged non-FDG avid benign-appearing fracture ofthe right posterior 11th rib. Diffuse linear FDG avidity in the right lower thoracic paraspinousmusculature is consistent with muscle tension or strain. IMPRESSION 1. Small focus of FDG avid nodular thickening in the posterior rightupper lobe with associated small central calcification, similar in size dating backto CT of 03/03/2023. Appearance is more suggestive of a chronic inflammatorylesion. Attention on follow-up recommended. 2. No evidence of recurrent malignancy in the right lower lobe. 3. No evidence of active metastatic disease. I have personally reviewed the image(s) and the resident's interpretationand agree with the findings, Kentrell Muhammad MD at 07/24/2023 10:46 AM Thank you for letting us participate in the care of this patient. If youare a health care provider and have any questions regarding this report,please contact the number below. For patients who have questions please contactthe health pet care worker that requested your imaging first. Electronically signed by: Kentrell Muhammad MD, [facility]([phone]), at 07/24/2023 10:46 AM Cody Frazier MD IMG PET ORDERABLES * Hepatitis C Antibody (04/26/2023 12:30 AM EDT) Hepatitis C Antibody Negative Negative [facility] Blood 04/26/2023 12:3 0 AM EDT 04/26/2023 1:01 AM EDT Narrative Resulting Agency Comment Spec In Lab Farideh Machado MD CHEMISTRY ORDERABL ES Performing Organization Address [facility] [place] [address] * HIV Screen, 4th Generation ([facility]/CGP/APD/NLH) (04/26/2023 12:30 AM EDT) HIV Ab/Ag Screen Negative Negative [facility] Comment: This 4th Generation HIV test screens for the presence of the HIV-1 p24 antigen as well as antibodies reactive against HIV-1 and HIV-2. A negative screen does not rule out an acute HIV infection. If acute HIV infection is suspected, testing should be repeated in 2 - 3 weeks or HIV nucleic acid testing performed. HIV Comment Low Risk of HIV Infection [facility] Blood 04/26/2023 12:3 0 AM EDT 04/26/2023 1:01 AM EDT Narrative Resulting Agency Comment Spec In Lab Farideh Machado MD CHEMISTRY ORDERABL ES Performing Organization Address City/[facility]/ZIP Co de Phone Number [facility] [place] [address] * Lipid Panel (Reflex Direct LDL) (04/24/2023 4:29 AM EDT) [facility] Cholesterol, Total 135 mg/dL [facility] Comment: Desirable: ? <200 mg/dL Borderline High: 200-239 mg/dL Higher: ?>ll=928 mg/dL Triglyceride 76 mg/dL [facility] Comment: Normal: ?<150 mg/dL Borderline High: 150-199 mg/dL High: ?200-499 mg/dL Very High: ? >ml=730 mg/dL HDL Cholesterol 47 mg/dL [facility] Comment: Females: High Risk: <50 mg/dL Males: High Risk: <40 mg/dL LDL Cholesterol 73 mg/dL [facility] Comment: Desirable: ? <100 mg/dL Above Desirable: 100-129 mg/dL Borderline High: 130-159 mg/dL High: ?160-189 mg/dL Very High: ? >ob=345 mg/dL Cholesterol/HDL Ratio 2.9 ratio [facility] Lipid Interpretation See Note [facility] Comment: It is important to review the results of ??your lipid panel with your health care provider. You can compare your lipid results to the ranges below and whether they are in the desirable range. These ranges are only meant to be used for people without known cardiac disease, history of stroke, or peripheral vascular disease (blockages in the leg arteries or diabetes). If ??you have one of these conditions, your desirable LDL-C (bad cholesterol) will likely be even lower. ACC/AHA Guidelines (most recently Scarlett et al. [facility] 11/13/21): ?? For individuals with atherosclerotic cardiovascular disease (ASCVD)or LDL >ja=697 mg/dL, use a high-intensity statin (40-80 mg atorvastatin or 20-40 mg rosuvastatin with goal >or=50% LDL reduction) ?? For individuals with diabetes, age 40-75 without ASCVD, moderate-intensity statin (goal 30-49% LDL reduction); consider high intensity statin for those with increased risk. ?? For adults without diabetes or ASCVD, aged 40-75 with LDL 70-189 mg/dL, estimate 10 year ASCVD risk with smarphrase .ASCVDRISK or Dynamed Decisions. If 10 year risk is 7.5%-19.9% (intermediate risk), consider moderate intensity statin based on risk enhancers and patient preference. Consider coronary artery calcium test (CT) if there is concern regarding the benefit of a statin. If ten year risk is >or=20%, initiate high-intensity statin. ?? Evaluate for secondary causes of triglycerides >500 mg/dL or LDL >190 mg/dL. ?? Lifestyle modification is a critical component of ASCVD risk reduction. ?? If not reaching LDL goals on maximally tolerated statin, consider ezetimibe and/or a PCSK9 inhibitor: ?? Target for primary prevention: LDL<100 ?? Target for those with ASCVD or diabetes and 10-year risk >or=20%: LDL<70 ?? Target for thos with very high risk ASCVD: LDL<55 (Very high risk being the presence of 2 or more of: recent acute coronary syndrome, past myocardial infarction, ischemic stroke, symptomatic peripheral artery disease) Blood 04/24/2023 4:29 AM EDT 04/24/2023 5:13 AM EDT Narrative Resulting Agency Comment Spec In Lab Vazquez Lan [place] [address] from Last 3 Months or Most Recently Relevant to Health Maintenance Advance Directives Documents on File Type Date Recorded Patient Associate Designer Expl anation DNR/Out of hospital 05/02/2023 4:34 PM [place] DNR 05/01/23 * Do NOT Attempt CPR - Inpatient (Latest Code Status on File) Date Activated Date Inactivated Comments 04/24/2023 8:42 AM 04/26/2023 2:52 PM Question Answer Comments Code Status decision made by: Patient Content of discussion: Pt wishes to be D NR but okay to intubate for respiratory failure. He is pending [facility] and willing to defer DNR status for the procedure. Independent of Code Status d ecision, are there any PRE Arrest limitations (Intubation, Pressors, Cardioversion / Pacing, etc)? No Per policy, patient may rece diane all applicable life support PRE arrest: Acknowledged * Do NOT Attempt CPR - Inpatient Date Activated Date Inactivated Comments 04/24/2023 8:41 AM 04/24/2023 8:42 AM Question Answer Comments Code Status decision made by: Patient Content of discussion: Pt wishes to be D NR but okay to intubate for respiratory failure. He is pending C and willing to defer DNR status for the procedure. Independent of Code Status d ecision, are there any PRE Arrest limitations (Intubation, Pressors, Cardioversion / Pacing, etc)? Not Discussed Per policy, patient may rece diane all applicable life support PRE arrest: Acknowledged * Suspended DNR Date Activated Date Inactivated Comments 04/23/2023 9:50 PM 04/24/2023 8:41 AM Question Answer Comments Code Status decision made by: Patient Content of discussion: Pt wishes to be D NR but okay to intubate for respiratory failure. He is pending C and willing to defer DNR status for the procedure. * Attempt Cardiopulmonary Resuscitation - Inpatient Date Activated Date Inactivated Comments 08/28/2022 8:48 AM 08/29/2022 4:35 AM Question Answer Comments Code Status decision made by: Patient * Do NOT Attempt CPR - Inpatient Date Activated Date Inactivated Comments 06/27/2021 9:12 AM 06/28/2021 4:39 AM Question Answer Comments Code Status decision made by: Patient Independent of Code Status d ecision, are there any PRE Arrest limitations (Intubation, Pressors, Cardioversion / Pacing, etc)? Yes PRE Arrest Intubation Permitted? No Care Teams Engineering Agent Relationship Specialty Start Date End Date Nikki Hermosillo, IGNACIA [address] [place] [address] PCP - General Family Medicine 04/25/23
--- OUTSIDE RECORDS SUMMARY | 2023-09-15 02:18 | XMS_ITS | Encounter Summary ---
Author Organization [facility] Address [facility] [place] [address] Care Team Providers Care Nursing Educator Name Role Phone Nikki Hremosillo 21 DEALER Primary Care Provider [phone] Reason for Visit * Reason Comments Medication Refill Encounter Details Date Type Department Care Team ([facility] st Contact Info) Description 08/12/2023 Refill Hematology/Oncology at [address] [phone] Cody Frazier MD [facility] DR HEMATOLOGY [place] [address] Social History Tobacco Use Types Packs/Day Years Used Date Smoking Tobacco: Some Days Cigarettes 0.3 42.6 Started: 1980 Smokeless Tobacco: Never Comments:10 per day- rarely Alcohol Use Standard Drinks/Week Comments Yes 1 (1 standard drink = 0.6 oz pur e alcohol) recently not as often [facility] Utilities Answer Date Recorded In the past [...] 2:30 PM EDT Office Visit Hematology/Oncology at [address] [phone] Cody Frazier MD [facility] DR HEMATOLOGY [place] [address] documented as of this encounter Visit Diagnoses Not on filedocumented in this encounter Care Teams Nursing Educator Relationship Specialty Start Date End Date Nikki Hermosillo APRN [address] [place] [address] PCP - General Family Medicine 04/25/23 documented as of this encounter
--- OUTSIDE RECORDS SUMMARY | 2023-09-15 02:18 | XMS_ITS | Encounter Summary ---
Author Organization [facility] Address [facility] [place] [address] Care Team Providers Care Fashion Model Name Role Phone Nikki Hermosillo [employer] Primary Care Provider [phone] Reason for Visit * Reason Onset Date Comments Medication Refill 06/24/2023 Encounter Details Date Type Department Care Team (Late st Contact Info) Description 06/24/2023 Telephone Hematology/Oncology at [address] [phone] Cody Frazier MD [facility] [address] HEMATOLOGY [place] [address] Medication Refill Social History Tobacco Use Types Packs/Day Years Used Date Smoking Tobacco: Some Days Cigarettes 0.3 42.6 Started: 1980 Smokeless Tobacco: Never Comments:10 per day- rarely Alcohol Use Standard Drinks/Week Comments Yes 1 (1 standard drink = 0.6 oz pur e alcohol) recently not as often [facility] Utilities Answer Date Recorded In the past 12 months has [employer], gas, oil, or water [employer] threatened to shut off services in your [...] place to sleep or slept in a half-way (including now)? No 04/25/2023 [facility] IPV Inpatient [...] Telephone Encounter - Bandar Dillard RN - 06/24/2023 10:00 AM EDT ----- Message from Kirstin Peña sent at 06/24/2023 9:46 AM EDT ----- Alexis called to get these prescriptions renewed/ filled. Please send to [facility] in [facility]. 

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
--- OUTSIDE RECORDS SUMMARY | 2023-09-15 02:18 | XMS_ITS | Encounter Summary ---
Author Organization [facility] Address [facility] [place] [address] Care Team Providers Care Crm Manager Name Role Phone Nikki Hermosillo IGNACIA Primary Care Provider [phone] Reason for Visit * Reason Onset Date Comments Medication Refill 05/16/2023 dilaudid Encounter Details Date Type Department Care Team (Late st Contact Info) Description 05/16/2023 Telephone Hematology/Oncology at [address] [phone] Bea Grimes APRN [address] [place] [address] HEMATOLOGY [place] [address] Medication Refill (dilaudid) Social History Tobacco Use Types Packs/Day Years Used Date Smoking Tobacco: Some Days Cigarettes 0.3 42.6 Started: 1980 Smokeless Tobacco: Never Comments:10 per day- rarely Alcohol Use Standard Drinks/Week Comments Yes 1 (1 standard drink = 0.6 oz pur e alcohol) recently not as often [facility] Utilities Answer Date Recorded In the past 12 months has Se[employer], gas, oil, or water [employer] threatened to shut off services in your [...] Telephone Encounter - Bandar Dillard RN - 05/16/2023 9:24 AM EDT Pt calling to have morphine refilled. Please send to [facility] in . documented in this encounter Plan of Treatment Upcoming Encounters Date Type Department Care Team (Late st Contact Info) Description 09/22/2023 2:30 PM EDT Office Visit Hematology/Oncology at [address] [phone] Cody Frazier MD [facility] HEMATOLOGY [place] [address] documented as of this encounter Visit Diagnoses Diagnosis Malignant neoplasm of lower lobe, right bronchus or lung documented in this encounter Care Teams Crm Manager Relationship Specialty Start Date End Date Nikki Hermosillo, VENDOR REPRESENTATIVES [address] [place] [address] PCP - General Family Medicine 04/25/23 documented as of this encounter
--- OUTSIDE RECORDS SUMMARY | 2023-09-15 02:18 | XMS_ITS | Encounter Summary ---
Author Organization [facility] Address [facility] [place] [address] Care Team Providers Care Solutions Market Consultant Name Role Phone Nikki Hermosillo IGNACIA Primary Care Provider [phone] Encounter Details Date Type Department Care Team (Late st Contact Info) Description 09/08/2023 Telephone Hematology/Oncology at [address] [phone] Bea Grimes APRN [address] [place] [address] DR HEMATOLOGY [place] [address] Social History Tobacco Use Types Packs/Day Years Used Date Smoking Tobacco: Some Days Cigarettes 0.3 42.6 Started: 1980 Smokeless Tobacco: Never Comments:10 per day- rarely Alcohol Use Standard Drinks/Week Comments Yes 1 (1 standard drink = 0.6 oz pur e alcohol) recently not as often [facility] Utilities Answer Date Recorded In the [...] 2:30 PM EDT Office Visit Hematology/Oncology at [address] [phone] Cody Frazier MD [facility] DR [place] [address] documented as of this encounter Visit Diagnoses Diagnosis Malignant neoplasm of lower lobe, right bronchus or lung documented in this encounter Care Teams Solutions Market Consultant Relationship Specialty Start Date End Date Nikki Hermosillo APRN [address] [place] [address] PCP - General Family Medicine 04/25/23 documented as of this encounter
--- OUTSIDE RECORDS SUMMARY | 2023-09-15 02:18 | XMS_ITS | Encounter Summary ---
Author Organization [facility] Address [facility] [place] [address] Care Team Providers Care Track Vehicle Repairer Name Role Phone Nikki Hermosillo HVAC ENGINEER Primary Care Provider [phone] Encounter Details Date Type Department Care Team (Late st Contact Info) Description 08/25/2023 Orders Only Hematology Oncology at [address] [phone] Nathaly Mart RN Neoplasm related pain Social History Tobacco Use Types Packs/Day Years Used Date Smoking Tobacco: Some Days Cigarettes 0.3 42.6 Started: 1980 Smokeless Tobacco: Never Comments:10 per day- rarely Alcohol Use Standard Drinks/Week Comments Yes 1 (1 standard drink = 0.6 oz pur e alcohol) recently not as often [facility] Utilities Answer Date Recorded In [...] place to sleep or slept in a intermediate (including now)? No 04/25/2023 DH IPV Inpatient [...] 2:30 PM EDT Office Visit Hematology/Oncology at [address] [phone] Cody Frazier MD [facility] DR [place]EMATOLOG[place] [address] documented as of this encounter Visit Diagnoses Diagnosis Neoplasm related pain Neoplasm related pain (acute) (chronic) documented in this encounter Care Teams Track Vehicle Repairer Relationship Specialty Start Date End Date Nikki Hermosillo [place] [place] [address] PCP - General Family Medicine 04/25/23 documented as of this encounter
--- OUTSIDE RECORDS SUMMARY | 2023-09-15 02:18 | XMS_ITS | Encounter Summary ---
Author Organization [facility] Address [facility] [place] [address] Care Team Providers Care Edging Machine Setter Name Role Phone Nikki Hermosillo IGNACIA Primary Care Provider [phone] Reason for Referral * Diagnostic Test (Routine) - Closed Specialty Diagnoses / Procedures Referred By Contac t Referred To Contact Radiology Diagnoses Malignant neoplasm of lower lobe, right bronchus or lung Secondary malignant neoplasm of bone Procedures NM [place] PET CT Skull Base to Mid-thigh Cody Frazier MD [facility] DR [place] [address] [place] [address] Referral ID Status Reason Start Date Expiration Date V isits Requested Visits Authorized [id number] Closed Specialty Service Requested 06/02/2023 12/01/2024 1 1 Reason for Visit * Diagnostic Test (Routine) - Closed Specialty Diagnoses / Procedures Referred By Contac t Referred To Contact Radiology Diagnoses Malignant neoplasm of lower lobe, right bronchus or lung Secondary malignant neoplasm of bone Procedures NM [place] PET CT Skull Base to Mid-thigh Cody Frazier MD [facility] DR [place] [address] [place] [address] Referral ID Status Reason Start Date Expiration Date V isits Requested Visits Authorized [id number] Closed Specialty Service Requested 06/02/2023 12/01/2024 1 1 Encounter Details Date Type Department Care Team (Late st Contact Info) Description 07/18/2023 12:00 PM EDT - 07/18/2023 11:59 PM EDT Hospital Encounter Nuclear Medicine at [facility] [place] [address] Cody Frazier MD [facility] DR [place] [address] Malignant neoplasm of lower lobe, right bronchus or lung; Secondary malignant neoplasm of bone Discharge Disposition: Home Social History Tobacco Use Types Packs/Day Years Used Date Smoking Tobacco: Some Days Cigarettes 0.3 42.6 Started: 1981 Smokeless Tobacco: Never Comments:10 per day- rarely Alcohol Use Standard Drinks/Week Comments Yes 1 (1 standard drink = 0.6 oz pur e alcohol) recently not as often [facility] Utilities Answer Date Recorded In the past 12 months has th e [employer], gas, oil, or water [employer] threatened to shut off services in your [...] on file documented as of this encounter Medications at Time of Discharge Medication Sig Dispensed Refills Start Date End Date droNABinoL (Marinol) 10 mg capsuleIndications:Chem otherapy induced nausea and vomiting Take 1 capsule by mouth 2 times daily (before meals). 60 capsule 3 06/24/2023 Advair Diskus 250-50 mcg/dose Disk with Device Inhale 1 puff into the lungs 2 times daily. 1 each 12 04/26/2023 cholecalciferol (Vitamin D) 1,000 unit tablet Take 1 tablet by mouth daily. 90 tablet 3 04/26/2023 aspirin 81 mg chewable tablet Take 81 mg by mouth daily. 30 tablet 3 04/26/2023 losartan (Cozaar) 25 mg tablet Take 1 tablet by mouth daily. 90 tablet 3 04/26/2023 polyethylene glycoL (Miralax) 17 gram oral powder packet Take 17 g by mouth daily as needed. 14 each 04/26/2023 rosuvastatin (Crestor) 10 mg tablet Take 1 tablet by mouth every evening. 90 tablet 3 04/26/2023 senna-docusate (Pericolace) 8.6-50 mg Tablet Take 1 tablet by mouth daily. 60 tablet 11 04/26/2023 folic acid (Vitamin B9) 1 mg tablet Take 1 tablet by mouth daily. 90 tablet 3 09/02/2022 omeprazole (PriLOSEC) [address] capsuleIndications:Chan roesophageal reflux disease, unspecified whether esophagitis present Take 1 capsule by mouth daily. 30 capsule 05/22/2022 prochlorperazine (Compazine) 10 mg Tablet Take 1 tablet by mouth every 6 hours as needed for Nausea. 30 tablet 3 07/16/2021 acetaminophen (Tylenol) 500 mg Tablet Take 1,000 mg by mouth every 6 hours as needed for Pain. ProChamber Spacer 01/23/2021 ProAir HFA 90 mcg/actuation HFA Aerosol Inhaler Inhale 2 puffs into the lungs every 4 hours as needed. EVERY 4 TO 6 HOURS NEEDED PRN 05/25/2021 Spiriva with HandiHaler 18 mcg Capsule, w/Inhalation Device Inhale 18 mcg into the lungs daily. 01/23/2021 morphine CR (MS Contin) 100 mg ER tabletIndications:Malig nant neoplasm of lower lobe, right bronchus or lung Take 1 tablet by mouth 3 times daily. 84 tablet 07/14/2023 08/11/2023 HYDROmorphone (Dilaudid) 4 mg tabletIndications:Neopl asm related pain Take 1 tablet by mouth every 6 hours as needed for Pain. 120 tablet 06/24/2023 07/25/2023 pregabalin (Lyrica) 50 mg capsuleIndications:Neop lasm related pain,Malignant neoplasm of lower lobe, right bronchus or lung,Secondary malignant neoplasm of bone Take 1 capsule by mouth 2 times daily. 60 tablet 5 01/07/2023 07/21/2023 documented as of this encounter Plan of Treatment Upcoming Encounters Date Type Department Care Team (Late st Contact Info) Description 09/22/2023 2:30 PM EDT Office Visit Hematology/Oncology at [address] [phone] Cody Frazier MD [facility] DR [place] [address] documented as of this encounter Procedures Procedure Name Priority Date/Time Associated Diagnosis Comments NM MACHAD[place] PET CT SKULL BASE TO MID-THIGH Routine 07/18/2023 12:00 PM EDT Malignant neoplasm of lower lobe, right bronchus or lung Secondary malignant neoplasm of bone documented in this encounter Results * NM [place] PET CT Skull Base to Mid-thigh (07/18/2023 12:00 PM EDT) WORKSTATION ID [id number] DH RAD Anatomical Region Laterality Modality Positron Emissio [...] who have questions please contact the health hospice care sales consultant that requested your imaging first. ? Narrative 07/24/2023 10:46 AM EDT EXAMINATION: [facility] PET CT SKULL BASE TO MID-THIGH CLINICAL HISTORY: Non-small cell lung cancer, assess treatment response 52 yo with metastatic NSCLC. ??Restaging C34.31, Malignant neoplasm of lower lobe, right bronchus or lung - C79.51, Secondary malignant neoplasm of bone TECHNIQUE: Following IV injection of 72-zwedxq-6-deoxyglucose (FDG) a standard uptake of approximately 60 [...] Note Kentrell Muhammad MD - 07/24/2023 EXAMINATION: [facility] PET CT SKULL BASE TO MID-THIGH CLINICAL HISTORY: Non-small cell lung cancer, assess treatment response 52 yo with metastatic NSCLC. Restaging C34.31, Malignant neoplasm of lower lobe, right bronchus or lung -C79.51, Secondary malignant neoplasm of bone TECHNIQUE: Following IV injection of 49-mbmacn-0-deoxyglucose (FDG) astandard uptake of approximately 60 minutes, [...] patients who have questions please contactthe health hospice care sales consultant that requested your imaging first. 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 documented in this encounter Administered Medications Inactive Administered Medications - up to 3 most recent administrations Medication Order MAR Action Action Date Dose Rate Site fludeoxyglucose (F-18) FDG injection 0-20 mCi 0-20 mCi, Intravenous, ONCE PRN, 1 dose, Starting on Fri07/18/23 at 1236, Until Fri07/18/23 at 1028, Per Protocol, Radiology Contrast, Routine Given 07/18/2023 10:28 AM EDT 12.8 mCi documented in this encounter Care Teams Edging Machine Setter Relationship Specialty Start Date End Date Nikki Hermosillo, MOLD DUMPER [address] [place] [address] PCP - General Family Medicine 04/25/23 documented as of this encounter
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
--- OUTSIDE RECORDS SUMMARY | 2023-09-15 02:18 | XMS_ITS | Encounter Summary ---
Author Organization [facility] Address [facility] [place] [id number] Care Team Providers Care Collar Worker Name Role Phone Nikki Hermosillo IGNACIA Primary Care Provider [phone] Reason for Visit * Reason Comments Medication Refill Encounter Details Date Type Department Care Team (Late st Contact Info) Description 07/21/2023 Refill Hematology/Oncology at [address] [phone] Bea Grimes APRN [address] [place] [address] DR HEMATOLOGY AND ONCOLOGY [place], [place] [phone] Neoplasm related pain; Malignant neoplasm of lower lobe, right bronchus or lung; Secondary malignant neoplasm of bone Social History Tobacco Use Types Packs/Day Years Used Date Smoking Tobacco: Some Days Cigarettes 0.3 42.6 Started: 1980 Smokeless Tobacco: Never Comments:10 per day- rarely Alcohol Use Standard Drinks/Week Comments Yes 1 (1 standard drink = 0.6 oz pur e alcohol) recently not as often [facility] Utilities Answer Date Recorded In the past 12 months has [employer], gas, oil, or water [employer] threatened to shut off services in your [...] 2:30 PM EDT Office Visit Hematology/Oncology at [address] [phone] Cody Frazier MD [facility] [place] [address] documented as of this encounter Visit Diagnoses Diagnosis Neoplasm related pain Neoplasm related pain (acute) (chronic) Malignant neoplasm of lower lobe, right bronchus or lung 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
--- OUTSIDE RECORDS SUMMARY | 2023-09-15 02:18 | XMS_ITS | Encounter Summary ---
Author Organization [facility] Address [facility] [place] [address] Care Team Providers Care Reconsignment Clerk Name Role Phone Nikki Hermosillo IGNACIA Primary Care Provider [phone] Encounter Details Date Type Department Care Team (Late st Contact Info) Description 06/16/2023 Telephone Hematology/Oncology at [address] [phone] Bea Grimes APRN [address] [place] [address] DR [place] [address] Social History Tobacco Use Types Packs/Day Years Used Date Smoking Tobacco: Some Days Cigarettes 0.3 42.6 Started: 1980 Smokeless Tobacco: Never Comments:10 per day- rarely Alcohol Use Standard Drinks/Week Comments Yes 1 (1 standard drink = 0.6 oz pur e alcohol) recently not as often [facility] Utilities Answer Date Recorded In the [...] place to sleep or slept in a fdc (including now)? No 04/25/2023 DH IPV Inpatient [...] 2:30 PM EDT Office Visit Hematology/Oncology at [address] [phone] Cody Frazier MD [facility] DR [place] [address] documented as of this encounter Visit Diagnoses Diagnosis Malignant neoplasm of lower lobe, right bronchus or lung documented in this encounter Care Teams Reconsignment Clerk Relationship Specialty Start Date End Date Nikki Hermosillo APRN [address] [place] [address] PCP - General Family Medicine 04/25/23 documented as of this encounter
--- OUTSIDE RECORDS SUMMARY | 2023-09-15 02:19 | XMS_ITS | Encounter Summary ---
Author Organization [facility] Address [facility] [place] [address] Care Team Providers Care Registered Nurse First Assistant Name Role Phone Nikki Hermosillo APRN Primary Care Provider Encounter Details Date Type Department Care Team (Late st Contact Info) Description 04/25/[address] [facility] [address] [facility] [place] [phone] Annette Terry, RN Social History Tobacco Use Types Packs/Day Years Used Date Smoking Tobacco: Some Days Cigarettes 0.3 42.6 Started: 1980 Smokeless Tobacco: Never Comments:10 per day- rarely Alcohol Use Standard Drinks/Week Comments Yes 1 (1 standard drink = 0.6 oz pur e alcohol) recently not as often [facility] Utilities Answer Date Recorded In [...] place to sleep or slept in a jail (including now)? No 04/25/2023 DH IPV Inpatient [...] encounter Miscellaneous Notes * Telephone Encounter - Annette Terry RN - 04/25/2023 1:36 PM EDT Rec'd Hot Call from Hematology Lab at 11:10 am with Critical Heparin result for pt who is currentlyadmitted. Re-directed lab staff to page the [facility] where pt is currently admitted. documented in this encounter Plan of Treatment Upcoming Encounters Date Type Department Care Team (Late st Contact Info) Description 09/22/2023 2:30 PM EDT Office Visit Hematology/Oncology at [address] [phone] Cody Frazier MD [facility] [place] [address] documented as of this encounter Visit Diagnoses Not on filedocumented in this encounter Care Teams Registered Nurse First Assistant Relationship Specialty Start Date End Date Nikki Hermosillo [place] [place] [address] PCP - General Family Medicine 04/25/23 documented as of this encounter
--- OUTSIDE RECORDS SUMMARY | 2023-09-15 02:19 | XMS_ITS | Encounter Summary ---
Author Organization [facility] Address [facility] [place] [address] Care Team Providers Care Fur Mixer Name Role Phone None Primary Care Provider Unavailabl e Encounter Details Date Type Department Care Team (Latest Contact Info) Description 03/31/2023 Travel Social History Tobacco Use Types Packs/Day Years Used Date Smoking Tobacco: Some Days Cigarettes 0.3 42.6 Started: 1980 Smokeless Tobacco: Never Comments:10 per day- rarely Alcohol Use Standard Drinks/Week Comments Yes 3 (1 standard drink = 0.6 oz pur e alcohol) recently not as often Overall Financial Resource Strain (CARDIA) Answe r Date Recorded How hard is it for you to pa y for the very basics like food, housing, medical care, and heating? Hard 07/16/2021 Hunger Vital Sign Answer Date Recorded Within the past 12 months, y ou worried that your food would run out before you got the money to buy more. Sometimes true Ran Out of Food in the Last Year Not on file 07/16/2021 PRAPARE - Transportation Answer Date Re corded In the past 12 months, has l ack of transportation kept you from medical appointments or from getting medications? No 07/2021 In the past 12 months, has l ack of transportation kept you from meetings, work, or from getting things needed for daily living? No 07/16/2021 Housing Stability Vital Sign Answer Deni e Recorded In the last 12 months, was t here a time when you were not able to pay the mortgage or rent on time? No 07/16/2021 Number of Places Lived in the Last Year Not on f ile 07/16/2021 In the last 12 months, was t here a time when you did not have a steady place to sleep or slept in a longterm (including now)? No 07/16/2021 Sex and Gender Information Value Date Recorded Sex Assigned at Not on file Gender Identity Not on file Sexual Orientation Not on file documented as of this encounter Plan of Treatment Upcoming Encounters Date Type Department Care Team (Late st Contact Info) Description 09/22/2023 2:30 PM EDT Office Visit Hematology/Oncology at [address] [phone] Cody Frazier MD [facility] DR HEMATOLOGY [place] [address] documented as of this encounter Visit Diagnoses Not on filedocumented in this encounter Care Teams Fur Mixer Relationship Specialty Start Date End Date None None PCP - General 04/03/22 04/24/23 documented as of this encounter
--- OUTSIDE RECORDS SUMMARY | 2023-09-15 02:19 | XMS_ITS | Encounter Summary ---
Author Organization [facility] Address [facility] [place] [address] Care Team Providers Care Ic Engineer Name Role Phone None Primary Care Provider Unavailabl e Reason for Referral * Diagnostic Test (Routine) - Authorized Specialty Diagnoses / Procedures Referred By Kristan merlos Referred To Contact Radiology Diagnoses Malignant neoplasm of lower lobe, right bronchus or lung Secondary malignant neoplasm of bone Procedures CT Chest w Contrast Bea Grimes APRN [address] [place] [address] DR [place] [address] Referral ID Status Reason Start Date Expiration Date Visits Requested Visits Authorized [id number] Authorized Specialty Service Requested 03/31/2023 09/28/2024 1 1 Encounter Details Date Type Department Care Team (Late st Contact Info) Description 03/31/2023 1:30 PM EST Office Visit Hematology/Oncology at [address] [phone] Bea Grimes [address] [place] [address] Malignant neoplasm of lower lobe, [...] slept in a mcc (including now)? No 07/16/2021 Sex and Gender Information Value Date Recorded Sex Assigned at Not on file Gender Identity Not on file Sexual Orientation Not on file documented as of this encounter Last Filed Vital Signs Vital Sign Reading Time Taken Comments Blood Pressure 141/94 03/31/2023 1:16 PM EST Pulse 103 03/31/2023 1:16 PM EST Temperature 36.9 ??C (98.4 ??F) 03/31/2023 1:16 PM ES T Respiratory Rate 18 03/31/2023 1:16 PM EST Oxygen Saturation 97% 03/31/2023 1:16 PM EST Inhaled Oxygen Concentration - - Weight 67 kg (147 lb 9.6 oz) 03/31/2023 1:16 PM EST Height 180.2 cm (5' 10.95) 03/31/2023 1:[address] Body Mass Index 20.62 03/31/2023 1:16 PM EST documented in this encounter Progress Notes * Bea Grimes APRN - 03/31/2023 1:30 PM EST Images from the original note were not included. Hematology & Medical Oncology [facility] [address] [address] Alexis Pelayo is being seen for the evaluation of lung cancer. Assessment & Plan: Alexis Pelayo is a 52 y.o. male patient with a past medical history significant for COPD, a 63-[id number]-ifxf smoking history, chronic migraine headaches diagnosed with [...] He started this on 09/16/22 Plan: # NSCLC - Most recent CT done on 03/03/23 reviewed with continued improvement from start of carbo/pemetrexed. - Labs and toxicities assessed and acceptable for ongoing treatment. - Continue maintenance pemetrexed - Stand alone in 3 weeks, RTC with labs and a restaging scan in 6 weeks. # Cancer related Pain - using MS Contin 100 mg TID. - Change to hydromorphone for breakthrough has been helpful, - Still holding off on palliative care referral for now at his [facility] but if further increases areneeded would like want him to establish with them # Hypercalcemia- WNL today - Follow for now #Hypomag- Had a strange reaction to the Mag supplement (? Sleep paralysis) so stopped and is improved. - Mag WNL, holding further supplementation. #COPD - Recently admitted for COPD exacerbation/PNA. He does not have a planer chain offbearer. We discussed that this may be helpful in managing his COPD as it evolves, but he is not interested in a referral at thistime. FEN - Continue marinol, weight and appetite are stable. Bea Grimes, COMMUNICATIONS CLERK 03/31/2023 Medical Oncology & Hematology [facility] CC: HPI/Interval History/Subjective: Last seen 03/10/2023 Alexis is here today with his sister. [...] Social History/Support Network: Home situation: From the [place] originally. Came up here because of family Has a sister Kristine Brantley who lives [place] who is his DPOA. 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 [...] a past medical history significant forCOPD, a 97-jdsa-venc smoking history, chronic migraine headaches who was in his usual state of health until last September when he first noted pain in the right mid to lower back region. This ultimatelyprompted further evaluation as detailed below this more recent spring. Staging/PreTx Eval: 05.24.21 IMPRESSION 1. FDG avid right lower lobe [...] chest wall 30 Gy in 10 fractions 07.23. Randhawa/Abraxane.Keytruda 7.07.[address] with response [...] is favored. The biopsy may not be promotional representative of the clinical mass lesion. Step levels were examine 8.09.01 Due to progression started carboplatin/pemetrexed 11.12.22 Response to treatment on restage after 2 cylces 10.11 C3 12.09.23 C4 11..23 1.24 Continued response on scan 11/20/2022 12:11 PM 11/20/2022 12:48 PM 12/09/2022 12:00 PM 12/09/2022 12:20 PM 12/30/2022 12:34 PM 03/10/2023 11:26 AM 03/10/2023 12:30 PM ONCBCN ONCOLOGY (AMB) Day, Cycle Day 1, Cycle 3 Day 1, Cycle 4 Day 1, Cycle 5 Day 1, Cycle 6 CARBOplatin (Paraplatin) IV 434 mg 434 mg cyanocobalamin (Vitamin B-12) 1,000 mcg/mL SubQ 1,000 mcg PEMEtrexed disodium (Alimta) IV 900 mg 900 mg 900 mg 900 mg Patient Active Problem List Diagnosis Date Noted Neoplasm related pain 08/05/2022 Gastroesophageal reflux 05/22/2022 Secondary malignant neoplasm of bone 07/17/2021 Medication management 07/17/2021 Malignant neoplasm of lower lobe, right bronchus or lung 07/05/2021 Lung mass 06/26/2021 Allergies Allergen Reactions Magnesium Oxide Rash Amitriptyline Patient reports agitation and insomnia Medications 03/31/23 1321 Medication Sig Taking? HYDROmorphone (Dilaudid) 4 mg tablet Take 1 tablet by mouth every 6 hours as needed for Pain. Yes morphine CR (MS Contin) 100 mg ER tablet Take 1 tablet by mouth 3 times daily. Yes pregabalin (Lyrica) 50 mg capsule Take 1 capsule by mouth 2 times daily. Yes droNABinol (Marinol) 10 mg capsule Take 1 capsule by mouth 2 times daily (before meals). Yes folic acid (Vitamin B9) 1 mg tablet Take 1 tablet by mouth daily. Yes mirtazapine (Remeron) 15 mg tablet Take 15 mg by mouth nightly. Yes omeprazole (PriLOSEC) [address] capsule Take 1 capsule by mouth daily. Yes prochlorperazine (Compazine) 10 mg Tablet Take 1 tablet by mouth every 6 hours as needed for Nausea. Yes acetaminophen (Tylenol) 500 mg Tablet Take 1,000 mg by mouth every 6 hours as needed for Pain. Yes naproxen sodium (ALEVE) 220 mg Capsule Take 1 capsule by mouth every 12 hours. Take with food. Yes ProChamber Spacer Yes ProAir HFA 90 mcg/actuation HFA Aerosol Inhaler Inhale 2 puffs into the lungs every 4 hours as needed. EVERY 4 TO 6 HOURS NEEDED PRN Yes Advair Diskus 250-50 mcg/dose Disk with Device Inhale 250 puffs into the lungs 2 times daily. Yes Spiriva with HandiHaler 18 mcg Capsule, w/Inhalation Device Inhale 18 mcg into the lungs daily. Yes I reviewed the problem list, allergies, medications, past medical history, social history and family history within the EPIC encounter. Pertinent details are noted above. Pertinent positives and negative from the Review of Systems are as summarized above in the HPI. Physical Exam: Wt Readings from Last 3 Encounters: 03/31/23 67 kg (147 lb 9.6 oz) 03/10/23 66.1 kg (145 lb 12.8 oz) 02/12/23 66.7 kg (147 lb) Temp Readings from Last 3 Encounters: 03/31/23 36.9 ??C (98.4 ??F) (Temporal) 03/10/23 36.7 ??C (98 ??F) (Temporal) 02/12/23 36.8 ??C (98.2 ??F) (Temporal) BP Readings from Last 3 Encounters: 03/31/23 (!) 141/94 03/10/23 143/89 02/12/23 (!) 154/94 Pulse Readings from Last 3 Encounters: 03/31/23 (!) 103 03/10/23 96 02/12/23 97 Body surface area is 1.83 meters squared. Wt Readings from Last 3 Encounters: 03/31/23 67 kg (147 lb 9.6 oz) 03/10/23 66.1 kg (145 lb 12.8 oz) 02/12/23 66.7 kg (147 lb) KPS Score ECOG Grade Definition 90-100 0 [...] Judgment: Judgment normal. Review of Laboratory Data: 03/31/23 WBC 8.11, H/H 14.4/43.7, plt 565, [...] 74 albumin 3.6 TSH 1.08 Free T41.19 2. 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
--- OUTSIDE RECORDS SUMMARY | 2023-09-15 02:19 | XMS_ITS | Encounter Summary ---
Author Organization [facility] Address [facility] [place] [address] Care Team Providers Care Private Advisor Name Role Phone Nikki Hermosillo IGNACIA Primary Care Provider [phone] Encounter Details Date Type Department Care Team (Late st Contact Info) Description 04/25/2023 Orders Only Hematology/Oncology at [address] [phone] Bea Grimes APRN [address] [place] [address] DR [place] [address] Neoplasm related pain Social History Tobacco Use [...] a group home (including now)? No 04/25/2023 DH IPV Inpatient [...] 2:30 PM EDT Office Visit Hematology/Oncology at [address] [phone] [facility] DR HEMATOLOGY [place] [address] documented as of this encounter Visit Diagnoses Diagnosis Neoplasm related pain Neoplasm related pain (acute) (chronic) documented in this encounter Care Teams Private Advisor Relationship Specialty Start Date End Date Nikki Hermosillo [place] [address] [place] [address] PCP - General Family Medicine 04/25/23 documented as of this encounter
--- OUTSIDE RECORDS SUMMARY | 2023-09-15 02:19 | XMS_ITS | Encounter Summary ---
Author Organization [facility] Address [facility] [place] [address] Care Team Providers Care Chemical Engraver Name Role Phone None Primary Care Provider Unavailabl e Encounter Details Date Type Department Care Team (Late st Contact Info) Description 04/17/2023 12:05 AM EST Ancillary Procedure Radiology Library at [facility] [place] [phone] Cody Frazier MD [facility] DR HEMATOLOGY [place] [address] Social History Tobacco Use Types Packs/Day Years [...] place to sleep or slept in a [place] facility (including now)? No 07/16/2021 Sex and Gender Information Value Date Recorded Sex Assigned at Not on file Gender Identity Not on file Sexual Orientation Not on file documented as of this encounter Plan of Treatment Upcoming Encounters Date Type Department Care Team (Late st Contact Info) Description 09/22/2023 2:30 PM EDT Office Visit Hematology/Oncology at [address] [phone] Cody Frazier MD [facility] DR HEMATOLOGY [place] [address] documented as of this encounter Procedures Procedure Name Priority Date/Time Associated Diagnosis Comments FILM LIBRARY STORAGE ONLY DX CHEST Routine 04/17/2023 12:05 AM EST documented in this encounter Results * Film Library- Storage Only DX Chest (04/17/2023 12:05 AM EST) Narrative HENNA - 04/23/2023 8:13 PM EDT This exam is auto-finalizing. It's purpose is for storage only. Cody Frazier MD [facility] FILM LIBRARY ORD ERABLES [place], [place] documented in this encounter Visit Diagnoses Not on filedocumented in this encounter Care Teams Chemical Engraver Relationship Specialty Start Date End Date None None PCP - General 04/03/22 04/24/23 documented as of this encounter
--- OUTSIDE RECORDS SUMMARY | 2023-09-15 02:19 | XMS_ITS | Encounter Summary ---
Author Organization [facility] Address [facility] [place] [address] Care Team Providers Care Editor Dictionary Name Role Phone None Primary Care Provider Unavailabl e Encounter Details Date Type Department Care Team (Late st Contact Info) Description 04/22/2023 Telephone Cardiology at [address] [place] [phone] Martinez Moura PA [facility] [place] [address] Social History Tobacco Use Types Packs/Day Years [...] slept in a assisted (including now)? No 07/16/2021 Sex and Gender Information Value Date Recorded Sex Assigned at Not on file Gender Identity Not on file Sexual Orientation Not on file documented as of this encounter Miscellaneous Notes * Telephone Encounter - Martinez Moura PA - 04/22/2023 12:54 PM EDT Images from the original note were not included. 04/22/2023 Alexis Pelayo Initial Contact Date: 04/22/2023 Contact time: 1:07 PM Referring Provider: Dr. Morales Patient Location: [facility] Brief History Please see prior note by Dr. Macdonald for more details on presentation. 52 y.o male with Hx of metastatic NSCLC and COPD who was admitted on 04/16 with respiratory failure requiring intubation. Found to have elevated troponin >2,000. [place] to be secondary to demand ischemia at the time however he was treated for ACS with 48 hours of IV heparin. Since admission, he has been extubated, weaned off pressors and is on room air. TTE obtained showed LVEF <20% with regional WMA's. Cardiology at [facility] recommended transfer to [facility] for ischemic evaluation. Vital sign: VSS Pertinent Diagnostic Findings: Labs: Troponin 2700 initially on 04/16, most recent 2,000 on 04/17. Past cardiac studies: EKG: TTE: LVEF less than 20% with WMAs OSH Interventions: ASA load S/p 48 hours of IV heparin Lipitor 80 mg q/d Assessment & Plan: Alexis Pelayo is a 52 y.o male with PMH of metastatic NSCLC and COPD who was admitted on 04/16 withrespiratory failure requiring intubation. Found to have elevated troponin >2,000 on admission. Initially felt to be secondary to demand ischemia at the time however he was treated for ACS with 48 hours of IV heparin. Since admission, he has been extubated, weaned off pressors and is on room air. TTE obtained reportedly showed LVEF <20% with regional WMA's. He does report exertional chest tightness. Euvolemic on exam. Cardiology at [facility] recommended transfer to [facility] for ischemic evaluation.Accepted for transfer 04/22. Above recommendations were based on my discussion with Dr. Morales; I have not personally interviewed or examined this patient. I encouraged them to contact us if there is any change in symptoms, decision- making, or further need for guidance in management. Martinez Moura PA-C Access Pager [phone] 04/22/2023 documented in this encounter Plan of Treatment Upcoming Encounters Date Type Department Care Team (Late st Contact Info) Description 09/22/2023 2:30 PM EDT Office Visit Hematology/Oncology at [address] [phone] Cody Frazier MD [facility] DR HEMATOLOGY [place] [address] documented as of this encounter Visit Diagnoses Not on filedocumented in this encounter Care Teams Editor Dictionary Relationship Specialty Start Date End Date None None PCP - General 04/03/22 04/24/23 documented as of this encounter
--- OUTSIDE RECORDS SUMMARY | 2023-09-15 02:19 | XMS_ITS | Encounter Summary ---
Author Organization [facility] Address [facility] [place] [address] Care Team Providers Care Solderer Torch Name Role Phone None Primary Care Provider Unavailabl e Reason for Visit * Reason Onset Date Comments Respiratory Distress 04/21/2023 Encounter Details Date Type Department Care Team (Late st Contact Info) Description 04/21/2023 Telephone Hematology/Oncology at [address] [phone] Deanne Nelson RN Respiratory Distress Social History Tobacco Use Types Packs/Day Years [...] slept in a half-way (including now)? No 07/16/2021 Sex and Gender Information Value Date Recorded Sex Assigned at Not on file Gender Identity Not on file Sexual Orientation Not on file documented as of this encounter Miscellaneous Notes * Telephone Encounter - Deanne Nelson RN - 04/21/2023 10:24 AM EDT Patient is still admitted at [facility]. I have scanned most recent note into chart. He will no be comingin today for standalone infusion. His follow up is scheduled for 05/11. * Telephone Encounter - Deanne Nelson RN - 04/21/2023 10:24 AM EDT ----- Message from Deanne Nelson RN sent at 04/21/2023 8:08 AM EDT ----- Regarding: FW: check on pt ----- Message ----- From: Bandar Dillard RN Sent: 04/21/2023 12:00 AM EDT To: [facility] Hem Onc Nurse Subject: check on pt Pt admitted to [facility] with RF 04/16. Please check on status and update providers and scan in any avail records. Thanks! ----- Message ----- From: Bandar Dillard RN Sent: 04/18/2023 4:57 PM EST To: [facility] Hem Onc Nurse ----- Message ----- From: Cody Frazier MD Sent: 04/18/2023 4:51 PM EST To: Kirstin Peña; [facility] Hem Onc Nurse; # Oh no- hope he's ok. Thank you for letting me know. Can we please check on him on Friday or Fridayand get any available records once he is discharged. Kamran ----- Message ----- From: Kirstin Peña Sent: 04/18/2023 4:37 PM EST To: Cody Frazier MD; [facility] Hem Onc Nurse Alexis wanted to make Dr. Frazier aware that he has been admitted to the hospital. Anna from palliative called to relay the message. documented in this encounter Plan of Treatment Upcoming Encounters Date Type Department Care Team (Late st Contact Info) Description 09/22/2023 2:30 PM EDT Office Visit Hematology/Oncology at [address] [phone] Cody Frazier MD [facility] [address] [place] [address] documented as of this encounter Visit Diagnoses Not on filedocumented in this encounter Care Teams Solderer Torch Relationship Specialty Start Date End Date None None PCP - General 04/03/22 04/24/23 documented as of this encounter
--- OUTSIDE RECORDS SUMMARY | 2023-09-15 02:19 | XMS_ITS | Encounter Summary ---
Author Organization [facility] Address [facility] [place] [address] Care Team Providers Care Geothermal Hvac Technician Name Role Phone None Primary Care Provider Unavailabl e Encounter Details Date Type Department Care Team (Late st Contact Info) Description 04/19/2023 Ancillary Procedure Radiology Library at [facility] [place] [phone] Cody Frazier MD [facility] [address] [place] [address] Social History Tobacco Use Types Packs/Day Years [...] place to sleep or slept in a care home (including now)? No 07/16/2021 Sex and Gender Information Value Date Recorded Sex Assigned at Not on file Gender Identity Not on file Sexual Orientation Not on file documented as of this encounter Plan of Treatment Upcoming Encounters Date Type Department Care Team (Late st Contact Info) Description 09/22/2023 2:30 PM EDT Office Visit Hematology/Oncology at [address] [phone] Cody Frazier MD [facility] DR [place] [address] documented as of this encounter Procedures Procedure Name Priority Date/Time Associated Diagnosis Comments FILM LIBRARY STORAGE ONLY DX CHEST Routine 04/19/2023 12:00 AM EST documented in this encounter Results * Film Library- Storage Only DX Chest (04/19/2023 12:00 AM EST) Narrative HENNA - 04/23/2023 8:11 PM EDT This exam is auto-finalizing. It's purpose is for storage only. Cody Frazier MD IMG FILM LIBRARY ORD ERABLES [place], [place] documented in this encounter Visit Diagnoses Not on filedocumented in this encounter Care Teams Geothermal Hvac Technician Relationship Specialty Start Date End Date None None PCP - General 04/03/22 04/24/23 documented as of this encounter
--- OUTSIDE RECORDS SUMMARY | 2023-09-15 02:19 | XMS_ITS | Encounter Summary ---
Author Organization [facility] Address [facility] [place] [id number] Care Team Providers Care Relief Docking Master Name Role Phone None Primary Care Provider Unavailabl e Encounter Details Date Type Department Care Team (Late st Contact Info) Description 04/14/2023 Telephone Hematology/Oncology at [address] [phone] Bea Grimes APRN [address] [place] [address] DR [place] [address] Social History Tobacco Use Types [...] place to sleep or slept in a correction (including now)? No 07/16/2021 Sex and Gender Information Value Date Recorded Sex Assigned at Not on file Gender Identity Not on file Sexual Orientation Not on file documented as of this encounter Plan of Treatment Upcoming Encounters Date Type Department Care Team (Late st Contact Info) Description 09/22/2023 2:30 PM EDT Office Visit Hematology/Oncology at [address] [phone] Cody Frazier MD [facility] DR HEMATOLOGY [place] [address] documented as of this encounter Visit Diagnoses Diagnosis Malignant neoplasm of lower lobe, right bronchus or lung documented in this encounter Care Teams Relief Docking Master Relationship Specialty Start Date End Date None None PCP - General 04/03/22 04/24/23 documented as of this encounter
--- OUTSIDE RECORDS SUMMARY | 2023-09-15 02:19 | XMS_ITS | Encounter Summary ---
Author Organization [facility] Address [facility] [place] [address] Care Team Providers Care Meeting/Event Planner Name Role Phone None Primary Care Provider Unavailabl e Encounter Details Date Type Department Care Team (Late st Contact Info) Description 04/22/2023 External [place] [address] Social History Tobacco Use Types Packs/Day Years Used Date Smoking Tobacco: Some Days Cigarettes 0.3 42.6 Started: 1980 Smokeless Tobacco: Never Comments:10 per day- rarely Alcohol Use Standard Drinks/Week Comments Yes 3 (1 standard drink = 0.6 oz pur e alcohol) recently not as often [facility] Utilities Answer Date Recorded In [...] place to sleep or slept in a long-term (including now)? No 04/25/2023 DH IPV Inpatient [...] PM EDT Office Visit Hematology/Oncology at [address] [phone] Cody Frazier MD [facility] DR [place] [address] documented as of this encounter Procedures Procedure Name Priority Date/Time Associated Diagnosis Comments ECG SCAN Routine 04/22/2023 12:45 PM EDT documented in this encounter Results * Scan Doc: ECG (04/22/2023 12:45 PM EDT) Historical Provider MD BUI MGR SCAN EX T ORDR/RSLT documented in this encounter Visit Diagnoses Not on filedocumented in this encounter Care Teams Meeting/Event Planner Relationship Specialty Start Date End Date None None PCP - General 04/03/22 04/24/23 documented as of this encounter
--- OUTSIDE RECORDS SUMMARY | 2023-09-15 02:19 | XMS_ITS | Encounter Summary ---
Author Organization [facility] Address [facility] [place] [address] Care Team Providers Care Crystal Gazer Name Role Phone None Primary Care Provider Unavailabl e Encounter Details Date Type Department Care Team (Late st Contact Info) Description 04/15/2023 Telephone Hematology/Oncology at [address] [phone] Deanne Nelson, RN Social History Tobacco Use Types Packs/Day [...] place to sleep or slept in a snf (including now)? No 07/16/2021 Sex and Gender Information Value Date Recorded Sex Assigned at Not on file Gender Identity Not on file Sexual Orientation Not on file documented as of this encounter Miscellaneous Notes * Telephone Encounter - Deanne Nelson RN - 04/15/2023 11:49 AM EST Call to [facility] to clarify issue. They states they need an override code from medicaid to be able to process Enrique meds d/t medicaid shut down. They think this will be done by the end of the day today and meds will be delivered to Alexis tomorrow. I called Alexis to explain this and he agreed with this plan. He had a hard time understanding pharmacy staff on the phone. * Telephone Encounter - Deanne Nelson RN - 04/15/2023 11:49 AM EST ----- Message from Kirstin Peña sent at 04/15/2023 11:30 AM EST ----- Alexis called very upset. Apparently the pharmacy is giving him the run around and saying something about insurance. He had called yesterday asking for a refill on his morphine CR (MS Contin) 100 mg ER tablet and says he is also sucking fumes on his rescue inhaler. He states he is having difficulty breathing. Alexis asked if we could please call the pharmacy and aid in getting these filled for him. [facility] Alvarenga documented in this encounter Plan of Treatment Upcoming Encounters Date Type Department Care Team (Late st Contact Info) Description 09/22/2023 2:30 PM EDT Office Visit Hematology/Oncology at [address] [phone] Cody Frazier MD [facility] DR [place] [address] documented as of this encounter Visit Diagnoses Not on filedocumented in this encounter Care Teams Crystal Gazer Relationship Specialty Start Date End Date None None PCP - General 04/03/22 04/24/23 documented as of this encounter
--- OUTSIDE RECORDS SUMMARY | 2023-09-15 02:19 | XMS_ITS | Encounter Summary ---
Author Organization [facility] Address [facility] [place] [address] Care Team Providers Care Ripsawyer Name Role Phone Nikki Hermosillo IGNACIA Primary Care Provider [phone] Reason for Referral * Consultation (Routine) - Authorized Specialty Diagnoses / Procedures Referred By Kristan merlos Referred To Contact Cardiology Diagnoses Non-ST elevation myocardial infarction (NSTEMI) Farideh Machado MD [facility] [address] Angela Bautista MD [address] [place] [id number] Referral ID Status Reason Start Date Expiration Date Visits Requested Visits Authorized [id number] Authorized Consult, Test & Treat 04/25/2023 10/22/2023 1 1 Reason for Visit * Auth/Cert (Routine) Specialty Diagnoses / Procedures Referred By Kristan merlos Referred To Contact Diagnoses NSTEMI (non-ST elevated myocardial infarction) NSTEMI Procedures ER Vazquez Valentin MD [facility] [address] [facility] Referral ID Status Reason Start Date Expiration Date Visits Re quested Visits Authorized [id number] 1 1 Encounter Details Date Type Department Care Team (Late st Contact Info) Description 04/23/2023 9:16 PM EDT - 04/26/2023 12:47 PM EDT Hospital Encounter Heart and Vascular Unit Level 4 [place] [id number] Afshin Espitia MD [facility] [place] [address] Farideh Machado MD [facility] [place] [address] Vazquez Lan MD [facility] [place] [address] Non-ST elevation myocardial infarction (NSTEMI); Malignant neoplasm of lower lobe, right bronchus or lung; NSTEMI (non-ST elevated myocardial infarction) Discharge Disposition: Home Social History Tobacco Use Types Packs/Day Years Used Date Smoking Tobacco: Some Days Cigarettes 0.3 42.6 Started: 1980 Smokeless Tobacco: Never Comments:10 per day- rarely Alcohol Use Standard Drinks/Week Comments Yes 1 (1 standard drink = 0.6 oz pur e alcohol) recently not as often [facility] Utilities Answer Date Recorded In the past 12 months has th e [employer], gas, oil, or water [employer] threatened to shut off services in your [...] place to sleep or slept in a residential (including now)? No 04/25/2023 DH IPV Inpatient [...] Sign Reading Time Taken Comments Blood Pressure 125/86 04/26/2023 8:00 AM EDT Pulse 84 04/26/2023 8:00 AM EDT Temperature 36.7 ??C (98.1 ??F) 04/26/2023 8:00 AM ED T Respiratory Rate 18 04/26/2023 4:51 AM EDT Oxygen Saturation 95% 04/26/2023 4:51 AM EDT Inhaled Oxygen Concentration - - Weight 66 kg (145 lb 8 oz) 04/26/2023 12:27 AM E DT Height 180.3 cm (5' 11) 04/23/2023 9:20 PM EDT Body Mass Index 20.29 04/23/2023 9:20 PM EDT documented in this encounter Discharge Summaries * Farideh Machado MD - 04/26/2023 8:14 AM EDT Images from the original note were not included. Discharge Summary Patient Name: Alexis Pelayo Patient Age: 52 y.o. Language: Maori Race: White Ethnicity: Not nor Admit date: 04/23/2023 Discharge date: 04/26/23 Attending Physician: Farideh Machado MD Discharge Physician: Farideh Machado MD Follow-up Recommendations for Providers: Mr. Pelayo is a 52M with Hx of COPD, metastatic NSCLC, COPD who presented to [facility] initially with COPD exacerbation complicated by acute hypercapnic respiratory failure requiring intubation and NSTEMIwith findings of newly reduced LVEF of <20% transferred to [facility] for ischemic evaluation andfurther management. Patient clinically euvolemic on arrival and underwent LHC 04/25/23 which showed non-obstructive disease and LVEDP 12. Cardiology consulted for new HFrEF. Losartan 25 mg started and follow-up arranged for outpatient cardiology prior to discharge. Cardiac Meds on Discharge - ASA 81 daily - Rosuvastatin 10mg daily - Losartan 25mg daily Other New Meds - vit d 1000u daily To Do [ ] labs in 1 week with PCP (BMP,mag, phos, CBC) [ ] follow-up TTE in 3 mo [ ] follow-up results of cardiomyopathy panel Inpatient Provider Contact Information: Farideh Machado MD [phone] For questions regarding this document or issues relating to this hospitalization on the Medical Service, please contact your inpatient physician through the [facility] . Issues afterhours and on weekends will be handled by the Hospitalist staff on-call. Discharge Diagnoses (Hospital Problems) and Secondary Diagnoses (Chronic Problems): Active Hospital Problems Diagnosis NSTEMI (non-ST elevated myocardial infarction) Resolved Hospital Problems No resolved problems to display. Active Non-Hospital Problems Diagnosis Neoplasm related pain Gastroesophageal reflux Secondary malignant neoplasm of bone Medication management Malignant neoplasm of lower lobe, right bronchus or lung Lung mass Operations/Major Procedures/Imaging: Results for orders placed or performed during the hospital encounter of 04/23/23 Cardiac Catheterization (Exam End: 04/25/2023 11:20 AM) Narrative [facility] Cardiac Catheterization/Intervention Report Patient Name: Alexis Pelayo Procedure Date: 04/25/2023 A #: [id number] Primary Physician: Ivone Hargrove Case #: [id number] File Name: [id number] Catheterization Order Number: [id number] [facility] Manager Client Service [facility] [place] Final Report [place], [place] Patient Name: Alexis Pelayo ID#: [id number] : 1970 Procedure Date: April 25, 2023 Case #: [id number] Room: 2 Case Physician: Ivone Burris M.D. Start: 11:02 Admission: 04/23/2023 Referring Physician: Keon Morales M.D. Procedures: * Coronary Angiography * Left Heart Catheterization History Alexis Pelayo is a 52 year old man. He has hypertension. The patient's smoking status is Former. He is status post an acute myocardial infarction as well as a recent non-ST elevation myocardial infarction. The patient has a history of an ejection fraction less than or equal to 35%. He has a history of CHF. The CHF is NYHA Functional Class II and is classified as Systolic. He also has a history of chronic obstructive pulmonary disease and cancer. Prior to the initiation of this procedure, the patient was designated as ASA Class III. The [facility] clinical frailty scale is 3: Managing Well. Diagnostic Tests: Prior Coronary Angiography: LV ejection fraction within 6 months is 20%. Electrocardiography: EKG was assessed by ECG. EKG was Abnormal. EKG showed other abnormality. Indications for Diagnostic Cath: The priority of the diagnostic procedure was Urgent. The indication for the cleaner laboratory equipment visit is cardiomyopathy and LV dysfunction. Chest pain symptom assessment was: Asymptomatic. Technique: A 6 SLFr sheath was inserted in the right radial artery utilizing the Seldinger technique. The left coronary artery was injected utilizing a 6Fr JL 3.5 catheter. A 6Fr JR 4 catheter was used to inject the right coronary artery. Left ventricular pressure was performed utilizing a 6Fr JR 4 catheter. Aortic Root was performed with a 6Fr JR 4 catheter. 5,000 units of heparin were administered. A total of 100cc of Omnipaque were opened, 74cc of Omnipaque were administered and 26cc of Omnipaque were wasted. Radiation: Fluoro time was 3.0 minutes, dose area product was 19.00 Gy/cm2 and air kerma was 278 mGY. See the case log for additional details. The patient received the following medications prior to and during the procedure: Unfractionated Heparin. Hemodynamics: Left Heart Pressures Resting: Syst Diast EDP a v m Ao 108 67 84 LV 108 12 Coronary Angiography: Dominance: Right Left Main The left main was normal, free of disease. Left Anterior Descending There was mild diffuse (<=25% stenosis) disease of the entire vessel segment of the left anterior descending artery (LAD). The mid segment of the LAD had mild diffuse (<=25% stenosis) disease. Distal flow was normal. There was mild diffuse (<=25% stenosis) disease of the mid segment of the first diagonal branch (Diagonal 1) of the LAD. The Diagonal 1 was large. Distal flow was normal. Left Circumflex There was mild diffuse (<=25% stenosis) disease of the entire vessel segment of the left circumflex artery (LCX). Right Coronary Artery There was mild diffuse (<=25% stenosis) disease of the entire vessel segment of the right coronary artery (RCA). Vascular Access: Vascular Access Management: Mechanical Compression of the right radial artery access site was performed. Conclusions: * Nonobstructive coronary artery disease Complications/Events: The patient had no complications during these procedures. Post Procedure Fluid Recommendations: IV fluid at 196 mL/hr for 4 hours for a total of 784 mL. These recommendations are made at the time of the procedure. Patient and provider preferences or a changing clinical situation may require modification of this regimen. Comments: Non obstructive CAD Normal LV fiolling pressures. The attending physician was present for the entire procedure. Dr. Ivone Burris M.D. was present during the moderate sedation intraservice time as documented by the sedation nurse. Case time = 00:12. Dr. Ivone Burris M.D. performed the coronary angiography and left heart catheterization. Ivone Burris M.D. Report Finalized: 04/25/2023 22:14 Report Last Ammended: 04/25/2023 22:21 History of Presentation: Per history and physical 04/23/23 Mr. Pelayo is a 52M with Hx of COPD, metastatic NSCLC, COPD who presented to [facility] initially with COPD exacerbation complicated by acute hypercapnic respiratory failure requiring intubation and NSTEMI with findings of newly reduced LVEF of <20% now transferred to [facility] [place] ischemic evaluation and management. Mr. Pelayo states he's had ongoing shortness of breath at home for months prior to his presentationbut denies associated orthopnea, edema or weight gain. He has known COPD for which he would use an albuterol rescue inhaler but notes it's been less effective as of recent. He states he awoke the morning 04/17/23 with severe shortness of breath, worse than prior and presented to [facility]. At [facility] he was noted to be in hypercapnic respiratory failure thought to be secondary to acute COPD exacerbation and was started on BiPAP, bronchodilators, and IV solumedrol. He ultimately required intubation on thenight of 04/16. EKG at the time showed mild ST elevations in leads II, III, AVR without reciprocal dep ressions. Troponins were elevated to ~2700 thought to be secondary to demand ischemia . He reportedly required a short trial of pressors given concern for shock but was weaned off. TTE performed showed newly reduced LVEF of <20% with WMAs superimposed on global hypokinesis. Pt reportedly had transient chest tightness during ongoing respiratory failure but this subsided s/p intubation. He was extubated 04/17. Cardiology at [facility] recommended transfer to [facility] for further ischemic evaluation and patient was accepted. At time of interview Mr. Pelayo states he feels well without chest pain, significant shortness of breath or discomfort. Hospital Course: Mr. Pelayo is a 52M with Hx of COPD, metastatic NSCLC, COPD who presented to [facility] initially with COPD exacerbation complicated by acute hypercapnic respiratory failure requiring intubation and NSTEMIwith findings of newly reduced LVEF of <20% transferred to [facility] for ischemic evaluation andfurther management. Patient clinically euvolemic on arrival and underwent LHC 04/25/23 which showed non-obstructive disease and LVEDP 12. Cardiology consulted for new HFrEF. Losartan 25 mg started and follow-up arranged for outpatient cardiology prior to discharge. #New CM w/ LVEF <20%, compensated #NSTEMI, Likely Type II #Recent Shock, resolved Troponinemia likely represented demand ischemia in setting of severe COPD exacerbation and subsequent respiratory failure. No preceding/recent chest pain syndromes or HF symptoms. However, newly reduced EF and significantly elevated troponin at OSH warranted ischemic evaluation. Per OSH report, transient shock requiring trial of pressors thought to be cardiogenic. Unclear why etiology was attributed to cardiogenic, pt stable at [facility] with no clinical signs of shock. No apparent cardiotoxic chemo regimens per initial chart review. -S/p Asa load at OSH, continued 81mg daily for non-obs CAD -crestor 10mg daily added for non-obstructive CAD -Defer BB in setting of severely reduced LVEF and recent shock -cardiology consulted, appreciate recs -agree with started low-dose ARB -close cardiology follow-up recommended #Severe COPD exacerbation, resolved #Recent Hypercapnic respiratory failure requiring intubation Pt presented to OSH with hypercapnic respiratory failure requiring intubation now s/p extubation 04/17. Pt s/p steroid initiation 04/16. No evidence of ongoing exacerbation at this time. Stable, will continue to monitor -s/p prednisone 40mg daily for 7 day course (04/16-04/23) -DuoNebs q4h while awake -Continue Spiriva, 2 puffs daily -Symbicort 160-4.5 mcg 2 puffs BID - in place of Advair (non-formulary) -incentive spirometer ordered; patient encouraged to use while inpatient #Hx Metastatic Prostate Cancer #Chronic pain secondary to bone metastases Opiate regimen verified via PDMP on admission. Follows with Dr. Frazier (Oncologist) here at [facility]. -Continued home PO dilaudid 4mg q8h -Continued home PO morphine CR 100mg q8h -Continued Pregabalin 50mg BID -Continued home dronabinol 10mg BID -Compazine PRN for nausea -Miralax PRN and senna QD started give chronic opioid use Vital Signs at Discharge: BP: 125/86, Heart Rate: 84, Temp: 36.7 ??C (98.1 ??F), Resp: 18, BMI (Calculated): 20.33 Height: 180.3 cm (5' 11) (04/23/230) Weight: 66 kg (145 lb 8 oz) (04/26/23 0027) Functional and Cognitive Status: awake, alert, oriented x4. Ambulating well with no assistance Important Studies and Lab Data: Labs: Last 3 wbc, hgb, hct plt Recent Labs 04/25/23 03304/24/23 0429 09/02/22 1319 WBC 9.9* 12.0* 13.74* HGB 11.6* 11.4* 13.1* HCT 35.1* 35.5* 40.7 PLATELET 517* 589* 580* Last 3 Lytes Recent Labs 04/26/23 0030 04/25/237 04/24/23428 NA 140 139 138 K 4.3 4.3 3.6 CL 98 101 98 CO2 Not Perf 30 32* BUN 13 12 14 CREATININE 0.90 0.74* 0.81 Last Ca, Mg, Phos Recent Labs 04/26/23 003 CALCIUM 9.2 MAGNESIUM 0.85 Last 3 ProBNP, Trop, CK No results for input(s): CK, TROPONINT, PROBNP in the last 168 hours. Last 3 Lipids Recent Labs 04/24/23428 CHLPL 135 HDL 47 LDLCHOL 73 TRIG 76 Last 3 HgbA1C Recent Labs 04/24/23428 HA1C 6.2* Studies: none Pending Studies and Lab Data: [ ] VON antibody screen [ ] Free Light Chains and final Protein Electrophoresis [ ] HSV 1&2 IgG Ab [ ] Lyme IgM and IgG Ab [ ] Parvo B 19 Ab [ ] CMV IgG and IgM Ab Discharge Conditions/Prognosis: stable Discharge to: home Updated Allergies/ADRs: Allergies Allergen Reactions Dog Dander Shortness Of Breath Magnesium Oxide Rash Amitriptyline Other (See Comments) Patient reports agitation and insomnia Immunizations Given this Hospitalization: There is no immunization history on file for this patient. Discharge Medications: Your Medications New Medications Dose Details aspirin 81 mg chewable tablet Take 81 mg by mouth daily. 81 mg Quantity: 30 tablet Refills: 3 cholecalciferol 1,000 unit tablet Commonly known as: Vitamin D Take 1 tablet by mouth daily. 1,000 Units Quantity: 90 tablet Refills: 3 losartan 25 mg tablet Commonly known as: Cozaar Take 1 tablet by mouth daily. 25 mg Quantity: 90 tablet Refills: 3 polyethylene glycoL 17 gram oral powder packet Commonly known as: Miralax Take 17 g by mouth daily as needed. 17 g Quantity: 14 each Refills: 0 rosuvastatin 10 mg tablet Commonly known as: Crestor Take 1 tablet by mouth every evening. 10 mg Quantity: 90 tablet Refills: 3 senna-docusate 8.6-50 mg Tablet Commonly known as: Pericolace Take 1 tablet by mouth daily. 1 tablet Quantity: 60 tablet Refills: 11 Continued medications with new dosing Dose Details Advair Diskus 250-50 mcg/dose Disk with Device Inhale 1 puff into the lungs 2 times daily. Generic drug: fluticasone propion-salmeteroL What changed: how much to take 1 puff Quantity: 1 each Refills: 12 * HYDROmorphone 4 mg tablet Commonly known as: Dilaudid Take 1 tablet by mouth every 6 hours as needed for Pain. What changed: Another medication with the same name was added. Make sure you understand how and when to take each. 4 mg Quantity: 120 tablet Refills: 0 * HYDROmorphone 4 mg tablet Commonly known as: Dilaudid Take 1 tablet by mouth every 8 hours. What changed: You were already taking a medication with the same name, and this prescription was added. Make sure you understand how and when to take each. 4 mg Quantity: 20 tablet Refills: 0 * morphine CR 100 mg ER tablet Commonly known as: MS Contin Take 1 tablet by mouth 3 times daily. What changed: Another medication with the same name was added. Make sure you understand how and when to take each. 100 mg Quantity: 84 tablet Refills: 0 * morphine CR 100 mg ER tablet Commonly known as: MS Contin Take 1 tablet by mouth every 8 hours. What changed: You were already taking a medication with the same name, and this prescription was added. Make sure you understand how and when to take each. 100 mg Quantity: 7 tablet Refills: 0 * This list has 4 medication(s) that are the same as other medications prescribed for you. Read thedirections carefully, and ask your doctor or other care provider to review them with you. Continued medications, unchanged Dose Details acetaminophen 500 mg tablet Commonly known as: Tylenol Take 1,000 mg by mouth every 6 hours as needed for Pain. 1,000 mg Refills: 0 droNABinol 10 mg capsule Commonly known as: Marinol Take 1 capsule by mouth 2 times daily (before meals). 10 mg Quantity: 60 capsule Refills: 3 folic acid 1 mg tablet Commonly known as: Vitamin B9 Take 1 tablet by mouth daily. 1 mg Quantity: 90 tablet Refills: [address] capsule Commonly known as: PriLOSEC Take 1 capsule by mouth daily. 40 mg Quantity: 30 capsule Refills: 0 pregabalin 50 mg capsule Commonly known as: Lyrica Take 1 capsule by mouth 2 times daily. 50 mg Quantity: 60 tablet Refills: 5 ProAir HFA 90 mcg/actuation HFA Aerosol Inhaler Inhale 2 puffs into the lungs every 4 hours as needed. EVERY 4 TO 6 HOURS NEEDED PRN Generic drug: albuteroL 2 puff Refills: 0 ProChamber Spacer Generic drug: inhalational spacing device Refills: 0 prochlorperazine 10 mg tablet Commonly known as: Compazine Take 1 tablet by mouth every 6 hours as needed for Nausea. 10 mg Quantity: 30 tablet Refills: 3 Spiriva with HandiHaler 18 mcg capsule with inhalation device Inhale 18 mcg into the lungs daily. Generic drug: tiotropium 18 mcg Refills: 0 STOPPED Medications mirtazapine 15 mg tablet Commonly known as: Remeron naproxen sodium 220 mg Capsule Commonly known as: ALEVE Smoking Status at Discharge: Social History Tobacco Use Smoking Status Some Days Packs/day: .25 Types: Cigarettes Start date: 1981 Smokeless Tobacco Never Tobacco Comments 10 per day- rarely Instructions Given to Patient at Discharge: Patient Instructions You were transferred to [facility] because an ultrasound of your heart also showed that your heart musclehas weakened. We evaluated your heart arteries with a cardiac catheterization (coronary angiogram) that revealed no obstructive coronary artery disease. We have sent a cardiomyopathy lab panel which is still pending. However this weakness could also be related to stress from your recent infection. You will need a repeat echocardiogram in 3 months to follow-up your heart muscle function. You were started on losartan, a medication often used to decrease blood pressure, but also works todecrease work load on the heart and help improve and preserve normal heart shape, size, and function. You were also started on vitamin D supplementation as your vitamin D levels were low. You will need to limit sodium in your diet. We suggest you avoid adding salt to any of your food, and actively monitor the salt content on the labels of the food you buy. Your total salt intake in a 24 hour period should not exceed 2,000 grams. Once at home, you will need to weigh yourself without clothing at the same time each day. Record your weight. Call your doctor if you have a sudden weight gain, such as more than 2 to 3 pounds in a day or 5 pounds in a week. (Your doctor may suggest a different range of weight gain.) A sudden weight gain may mean that your heart failure is getting worse. Your weight on day of discharge is: 145 lbs Call your doctor if: Chest pain, shortness of breath, pain or swelling in legs occurs. If you have non-emergent questions between now and the time of your follow up appointments: During 8am-5pm Friday through Friday call [phone] to speak with a nurse in the cardiology clinic All other times call [phone] and ask to speak to the cardiovascular hospitalist nutrition specialist. Return to work: One week Driving: No driving for 48 hours after catheterization. Follow up Appointments: PCP Nikki Hermosillo APRN [phone] April 30, 2023 at 1:30 pm Cardiology at [facility] Dr. Bautista May 18 at 11:20 am Home oxygen therapy: N/A Arrangements for VNA/home care: none General Instructions None Future Appointments and Orders Future Appointments and Orders Future Appointments Provider Department Dept Phone 05/12/2023 1:00 PM Bea Grimes APRN; Cody Frazier MD Hematology/Oncology at [facility] Arrive at: [facility] door at end of hallway [phone] 06/02/2023 1:30 PM Cody Frazier MD Hematology/Oncology at [facility] Arrive at: [facility] door at end of hallway [phone] 06/02/2023 2:00 PM [facility], [facility] Hematology Oncology at [facility] Arrive at: [facility] door at end of [place] [phone] Future Orders Complete By Expires Basic Metabolic Panel (non-fasting) [LAB15 Custom] 05/03/2023 11/02/2023 Process Instructions: Scheduling Instructions: Comments: Questions: Hemogram [[id number] Custom] 05/03/2023 11/02/2023 Process Instructions: Scheduling Instructions: Comments: Questions: Magnesium [[id number] Custom] 05/03/2023 11/02/2023 Process Instructions: Scheduling Instructions: Comments: Questions: Phosphorus [IAU685 Custom] 05/03/2023 11/02/2023 Process Instructions: Scheduling Instructions: Comments: Questions: Referral to Cardiology [REF12 Custom] As directed Process Instructions: If no progress note charted, please enter Clinical details in comments. Scheduling Instructions: Questions: My question or request is: HFrEF, likely takotsubo Discharge References/Attachments None Greater than 30 minutes was spent on this discharge including documentation, [id number] time withthe patient, patient education, short order fry cook, coordination with pharmacy and other patient care. documented in this encounter Discharge Instructions * Patient Instructions* Farideh Machado MD - 04/25/2023 8:00 AM EDT You were transferred to [facility] because an ultrasound of your heart also showed that your heart musclehas weakened. We evaluated your heart arteries with a cardiac catheterization (coronary angiogram) that revealed no obstructive coronary artery disease. We have sent a cardiomyopathy lab panel which is still pending. However this weakness could also be related to stress from your recent infection. You will need a repeat echocardiogram in 3 months to follow-up your heart muscle function. You were started on losartan, a medication often used to decrease blood pressure, but also works todecrease work load on the heart and help improve and preserve normal heart shape, size, and function. You were also started on vitamin D supplementation as your vitamin D levels were low. You will need to limit sodium in your diet. We suggest you avoid adding salt to any of your food, and actively monitor the salt content on the labels of the food you buy. Your total salt intake in a 24 hour period should not exceed 2,000 grams. Once at home, you will need to weigh yourself without clothing at the same time each day. Record your weight. Call your doctor if you have a sudden weight gain, such as more than 2 to 3 pounds in a day or 5 pounds in a week. (Your doctor may suggest a different range of weight gain.) A sudden weight gain may mean that your heart failure is getting worse. Your weight on day of discharge is: 145 lbs Call your doctor if: Chest pain, shortness of breath, pain or swelling in legs occurs. If you have non-emergent questions between now and the time of your follow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 Agency/Support Group Needs: None *declines VNA at this time Agency Referrals & Follow-up Care: Contact information for follow-up Angela Bautista MD [place] [id number] [place] [phone] [facility] [id number] Nikki Hermosillo, SUCCESS COACH Relationship: PCP - General [facility] [address] [facility] [id number] Transportation: taxi voucher family or friend will provide Wheelchair van/Ambulance? No Functional status prior to admission: Independent Home Environment: Others in the home: sibling(s). Current Living Arrangements: home/apartment/condo. Accessibility Concerns:3rd floor apartment; several flights of stairs to enter; no home accessibility concerns noted. Current Functional Ability: Independent DME used at home: none DME Needed at Discharge: Patient is insured through: Primary Insurance: [place] Payor: [place] / Plan: [place] PRIMARY CARE PL[place] / Product Type: *No Product type* / Secondary Insurance: N/A Prescription Coverage: Yes This plan was formulated with input from patient and team. All are in agreement with plan. Low ZAMBRANO, RN-CM Cashier Parking Lot- Medicine Office of Care Management Ext: [phone] Pager: [phone] * Plan of Care - Nicholas Santana RN - 04/26/2023 11:50 AM EDT Problem: Adult Inpatient Plan of Care Goal: Plan of Care Review Outcome: Outcome (s) achieved Goal: Patient-Specific Goal (Individualized) Outcome: Outcome (s) achieved Goal: Absence of Hospital-Acquired Illness or Injury Outcome: Outcome (s) achieved Goal: Optimal Comfort and Wellbeing Outcome: Outcome (s) achieved Goal: Readiness for Transition of Care Outcome: Outcome (s) achieved Problem: Arrhythmia/Dysrhythmia (Cardiac Catheterization) Goal: Stable Heart Rate and Rhythm Outcome: Outcome (s) achieved Problem: Bleeding (Cardiac Catheterization) Goal: Absence of Bleeding Outcome: Outcome (s) achieved Problem: Contrast-Induced Injury Risk (Cardiac Catheterization) Goal: Absence of Contrast-Induced Injury Outcome: Outcome (s) achieved Problem: Embolism (Cardiac Catheterization) Goal: Absence of Embolism Signs and Symptoms Outcome: Outcome (s) achieved Problem: Ongoing Anesthesia/Sedation Effects (Cardiac Catheterization) Goal: Anesthesia/Sedation Recovery Outcome: Outcome (s) achieved Problem: Pain (Cardiac Catheterization) Goal: Acceptable Pain Control Outcome: Outcome (s) achieved Problem: Vascular Access Protection (Cardiac Catheterization) Goal: Absence of Vascular Access Complication Outcome: Outcome (s) achieved Problem: Adjustment to Illness (Heart Failure) Goal: Optimal Coping Outcome: Outcome (s) achieved Problem: Cardiac Output Decreased (Heart Failure) Goal: Optimal Cardiac Output Outcome: Outcome (s) achieved Problem: Dysrhythmia (Heart Failure) Goal: Stable Heart Rate and Rhythm Outcome: Outcome (s) achieved Problem: Fluid Imbalance (Heart Failure) Goal: Fluid Balance Outcome: Outcome (s) achieved Problem: Functional Ability Impaired (Heart Failure) Goal: Optimal Functional Ability Outcome: Outcome (s) achieved Problem: Oral Intake Inadequate (Heart Failure) Goal: Optimal Nutrition Intake Outcome: Outcome (s) achieved Problem: Respiratory Compromise (Heart Failure) Goal: Effective Oxygenation and Ventilation Outcome: Outcome (s) achieved Problem: Sleep Disordered Breathing (Heart Failure) Goal: Effective Breathing Pattern During Sleep Outcome: Outcome (s) achieved OUTCOME EVALUATION NOTE: OUTCOME SUMMARY: Pt remains A/Ox4, VSS. Ambulating ad jan in room. D/C orders in by . Pt's preferred pharmacy unable to prepare meds in time for d/c, orders sent to [facility] for pickup. Ride organized by care management. Midline pulled, meds in locked cabinet and fridge returned to patient. D/C home with ride from [facility]. All needs met prior to d/c. PLAN MOVING FORWARD: Outpatient f/o * Initial Assessments - Eduardo Tirado RN - 04/25/2023 3:41 PM EDT Office of Care Management Initial Assessment Medical record reviewed. Plan of care and patient status discussed with direct care Registered Nurse and/or Care Team in multidisciplinary rounds. Reason for Hospitalization: I need a heart test Present on Admission: NSTEMI (non-ST elevated myocardial infarction) Hospitalizations Within the Past 30 Days: no previous admission in last 30 days Patient receiving hospital care under Inpatient status. Admission order reviewed. Health/Prescription Coverage: Primary Insurance: [place] Payor[place] / Plan: [place] PRIMARY CARE PL[place] / Product Type: *No Product type* / Secondary Insurance: N/A Prescription Coverage: Yes Preferred Pharmacy: [facility] - [facility], [place] - [address] [facility] [address] [facility] [address] Advance Care Planning: Do NOT Attempt CPR - Inpatient <no information> -Advanced Directive: No, declines (sister is SDM) Current Functional Ability: Independent Functional Status Prior to Admission: Independent Home Environment: Others in the home: sibling(s). Current Living Arrangements: home/apartment/condo. Accessibility Concerns:3rd floor apartment; several flights of stairs to enter; no home accessibility concerns noted. Current DME: none [address] [facility] [address] Social & Family Supports: All names listed below confirmed with patient as current and correct Extended Emergency Contact Information Primary Emergency Contact: Kristine Padgett Mobile Relation: Sibling Current Care Provided by: self Transportation: no concerns Transportation Anticipated: family or friend will provide Assessment: Patient with no apparent RNCM/SW needs at this time. No housing, transportation, insurance, resources concerns identified at this time. Supports in place to achieve a safe post-hospital transition. No identified barriers to accessing necessary care and/or follow-up after discharge. Pt declines VNA services at this time. Plan: Patient to d/c to home via private vehicle when medically ready. Registered Nurse Spoke Maker / Manual Lathe Machinist will continue to follow patient???s progress and remain available if situation changes for coordination of care, psychosocial support and/or discharge planning. Office of Care Management * Plan of Care - Farideh Machado MD - 04/25/2023 2:19 PM EDT Post Cardiac cath note Alexis Pelayo [id number] 1970 52 y.o. male Last value Range last 8 hrs Temperature Temp: 36.7 ??C (98 ??F) Temp: [36.6 ??C (97.9 ??F)-36.7 ??C (98 ??F)] Heart Rate Heart Rate: 85 Heart Rate: [83-95] Blood Pressure BP: 107/71 BP: (107-124)/(69-88) Respiratory Rate Resp: 18 Resp: [15-19] SpO2 SpO2: 95 % SpO2: [91 %-95 %] S: Patient reports no chest pain or SOB Patient reports no bilat upper extremity numbness or tingling O: No active bleeding noted R radial cath site No hematoma, bruit or tenderness radial pulses intact + equal A/P. S/p cath with no complications * Consult Note - Román Bynum MD - 04/25/2023 12:14 PM EDT CARDIOLOGY CONSULT NOTE Patient Name: Alexis Pelayo Service: CV Hospitalist 1 Team Responsible Attending: Farideh Machado MD PCP: Nikki Hermosillo APRN PCP phone #: [phone] ID/Chief Complaint: Mr. Pelayo is a 52 year old gentleman with metastatic NSCLC and COPD who presented to [facility] for acute hypercapnic and hypoxic respiratory failure requiring intubation and NSTEMI with new LVEF of <20% transferred [place] [facility] [place]. Coronary angiogram today did not reveal significant d isease. Medical Co-morbidities: Metastatic non-small cell lung cancer with bony metastases COPD not on home oxygen 35-pack year history of smoking History of Present Illness: The patient had progressive shortness of breath for months which he had attributed to COPD. He had severe shortness of breath one week ago prompting a presentation to [facility] where he was treated as a COPD exacerbation with BiPAP, bronchodilators and steroids. He required intubation. He had an ECG showing slight ST elevations in the inferior leads and elevated troponin up to 2700. He had a TTE showing <20% LVEF with decreased RV function and global hypokinesis. He has undergone coronary angiogram showing non-obstructive disease. In speaking with the patient he overall feels much better. He reports that at [facility] he had copious amounts of sputum suctioned from his lungs and that his breathing is dramatically improved. He denieschest pain or pressure. He says he was able to ambulate through the halls without difficulty today.No family history of heart disease. He still is an active smoker of 35-40 pack years. Planned/pending surgeries: None Meds: No current facility-administered medications on file prior to encounter. Current Outpatient Medications on File Prior to Encounter Medication Sig Dispense Refill morphine CR (MS Contin) 100 mg ER tablet Take 1 tablet by mouth 3 times daily. 84 tablet 0 HYDROmorphone (Dilaudid) 4 mg tablet Take 1 tablet by mouth every 6 hours as needed for Pain. 120 tablet 0 pregabalin (Lyrica) 50 mg capsule Take 1 capsule by mouth 2 times daily. 60 tablet 5 droNABinol (Marinol) 10 mg capsule Take 1 capsule by mouth 2 times daily (before meals). 60 capsule3 folic acid (Vitamin B9) 1 mg tablet Take 1 tablet by mouth daily. 90 tablet 3 omeprazole (PriLOSEC) [address] capsule Take 1 capsule by mouth daily. 30 capsule 0 prochlorperazine (Compazine) 10 mg Tablet Take 1 tablet by mouth every 6 hours as needed for Nausea. 30 tablet 3 acetaminophen (Tylenol) 500 mg Tablet Take 1,000 mg by mouth every 6 hours as needed for Pain. ProChamber Spacer ProAir HFA 90 mcg/actuation HFA Aerosol Inhaler Inhale 2 puffs into the lungs every 4 hours as needed. EVERY 4 TO 6 HOURS NEEDED PRN Advair Diskus 250-50 mcg/dose Disk with Device Inhale 250 puffs into the lungs 2 times daily. Spiriva with HandiHaler 18 mcg Capsule, w/Inhalation Device Inhale 18 mcg into the lungs daily. Allergies: Allergies Allergen Reactions Dog Dander Shortness Of Breath Magnesium Oxide Rash Amitriptyline Other (See Comments) Patient reports agitation and insomnia Vitals: Last value Range last 24 hrs Temperature Temp: 36.7 ??C (98 ??F) Temp: [36.6 ??C (97.9 ??F)-37 ??C (98.6 ??F)] Heart Rate Heart Rate: 85 Heart Rate: [74-95] Blood Pressure BP: 117/75 BP: (97-124)/(62-88) Respiratory Rate Resp: 18 Resp: [14-20] SpO2 SpO2: 95 % SpO2: [90 %-95 %] Examination: General - No acute distress. Well-groomed/nourished. Speech is normal HEENT - EOMI. No scleral icterus. Noninjected. Moist membranes. Respiratory: Clear to auscultation bilaterally. Good effort/excursion. Cardiac - RRR, normal S1/S2, no audible murmur, gallop or rubs. No JVD. No PIYUSH. Abdomen - Soft, nontender/nondistended Extremities - Warm. No clubbing or cyanosis. Radial Pulses: 2+ B/l Neuro - Limited exam. No deficits. Laboratory: CBC: Recent Labs 04/25/2333604/24/2342809/02/22 1319 WBC 9.9* 12.0* 13.74* HGB 11.6* 11.4* 13.1* PLATELET 517* 589* 580* Chemistry: Recent Labs 04/25/2333604/24/2342809/02/22 1319 NA 139 138 131* K 4.3 3.6 3.7 CL 101 98 93* CO2 30 32* -- BUN 12 14 9 CREATININE 0.74* 0.81 1.2 GLUCOSE 106 99 147* Recent Labs 04/25/2333604/24/2342809/02/22 1319 CALCIUM 8.9 8.8 9.4 MAGNESIUM 0.84 0.79 1.9 LFT's: Recent Labs 09/02/22 1319 ALBUMIN 3.3* ALKPHOS 92 ALT 9* AST 10* Most Recent TTE Echo 04/18/2023 pre report at OSH, LVEF less than 20% with severe global hypokinesis with dilated andRV decreased systolic function, moderate bi-atrial enlargement and mild MR. Most Recent Cath Findings: Right radial access Left main is normal LAD has mild luminal irregularities Left circumflex has mild luminal regularities Right coronary artery dominant with mild luminal Normal LV filling pressure LVEDP 12 mmhg Conclusion non obstructive coronary artery disease ASSESSMENT: # Compensated newly diagnosed heart failure with biventricular systolic and diastolic function # Metastatic non-small cell lung cancer with bony metastases # COPD not on home oxygen # 35-pack year history of smoking PLAN: Non-ischemic cardiomyopathy panel Agree with starting low dose losartan today (25 mg is reasonable) He will need close follow up. Unfortunately will not be candidate for advanced therapies in the setting of stage IV metastatic lung cancer We will continue to follow along. Mikhail Marina MD Asl Interpreter I was the attending physician available for supervision at the time of this visit. While I did not see the patient, I did review the chart and discussed the plan of management as documented above. Román Bynum MD [facility] Staff Newspaper Library Manager * Brief Op Note - Ivone Hargrove MD - 04/25/2023 11:24 AM EDT Brief Operative Note Patient Name: Alexis Pelayo : [id number] MR#: [id number] Case Date: 04/25/2023 Surgeon: Surgeon(s) and Role: * Ivone Hargrove MD - Primary * Franck Salomon PA - Physician Plastics Supervisor Preoperative diagnosis: NSTEMI Postoperative diagnosis: Nonobstructive coronary disease Procedure(s) (LRB): CARDIAC CATHETERIZATION (Left) Anesthesia: Anesthesia type not filed in the log. Findings: Right radial access Left main is normal LAD has mild luminal irregularities Left circumflex has mild luminal regularities Right coronary artery dominant with mild luminal Normal LV filling pressure LVEDP 12 mmhg Conclusion non obstructive coronary artery disease * Plan of Care - Leeann Stafford RN - 04/25/2023 8:42 AM EDTSummary: D/C Summary OUTCOME EVALUATION NOTE: OUTCOME SUMMARY: Alexis Pelayo is a 52 y.o. male admitted for an NSTEMI. This shift he was NPO for a LHC. He has aR radial site. No hematoma noted. TR band was removed at 1315. Vital signs were stable. Heart rhythm was NSR/ST. He continued to be A+O x4. Patient is showing no signs or symptoms of distress. PLAN MOVING FORWARD: D/C planning CPG GOAL OUTCOME EVALUATION: Problem: Adult Inpatient Plan of Care Goal: Plan of Care Review Outcome: Ongoing (Interventions Implemented as Appropriate) Goal: Patient-Specific Goal (Individualized) Outcome: Ongoing (Interventions Implemented as Appropriate) Goal: Absence of Hospital-Acquired Illness or Injury Outcome: Ongoing (Interventions Implemented as Appropriate) Goal: Optimal Comfort and Wellbeing Outcome: Ongoing (Interventions Implemented as Appropriate) Goal: Readiness for Transition of Care Outcome: Ongoing (Interventions Implemented as Appropriate) Problem: Arrhythmia/Dysrhythmia (Cardiac Catheterization) Goal: Stable Heart Rate and Rhythm Outcome: Ongoing (Interventions Implemented as Appropriate) Problem: Bleeding (Cardiac Catheterization) Goal: Absence of Bleeding Outcome: Ongoing (Interventions Implemented as Appropriate) Problem: Contrast-Induced Injury Risk (Cardiac Catheterization) Goal: Absence of Contrast-Induced Injury Outcome: Ongoing (Interventions Implemented as Appropriate) Problem: Embolism (Cardiac Catheterization) Goal: Absence of Embolism Signs and Symptoms Outcome: Ongoing (Interventions Implemented as Appropriate) Problem: Ongoing Anesthesia/Sedation Effects (Cardiac Catheterization) Goal: Anesthesia/Sedation Recovery Outcome: Ongoing (Interventions Implemented as Appropriate) Problem: Pain (Cardiac Catheterization) Goal: Acceptable Pain Control Outcome: Ongoing (Interventions Implemented as Appropriate) Problem: Vascular Access Protection (Cardiac Catheterization) Goal: Absence of Vascular Access Complication Outcome: Ongoing (Interventions Implemented as Appropriate) Problem: Adjustment to Illness (Heart Failure) Goal: Optimal Coping Outcome: Ongoing (Interventions Implemented as Appropriate) Problem: Cardiac Output Decreased (Heart Failure) Goal: Optimal Cardiac Output Outcome: Ongoing (Interventions Implemented as Appropriate) Problem: Dysrhythmia (Heart Failure) Goal: Stable Heart Rate and Rhythm Outcome: Ongoing (Interventions Implemented as Appropriate) Problem: Fluid Imbalance (Heart Failure) Goal: Fluid Balance Outcome: Ongoing (Interventions Implemented as Appropriate) Problem: Functional Ability Impaired (Heart Failure) Goal: Optimal Functional Ability Outcome: Ongoing (Interventions Implemented as Appropriate) Problem: Oral Intake Inadequate (Heart Failure) Goal: Optimal Nutrition Intake Outcome: Ongoing (Interventions Implemented as Appropriate) Problem: Respiratory Compromise (Heart Failure) Goal: Effective Oxygenation and Ventilation Outcome: Ongoing (Interventions Implemented as Appropriate) Problem: Sleep Disordered Breathing (Heart Failure) Goal: Effective Breathing Pattern During Sleep Outcome: Ongoing (Interventions Implemented as Appropriate) Leeann Stafford RN * Plan of Care - Edel Garcia RN - 04/25/2023 5:51 AM EDT Pt NPO for cath today. Tolerating home meds. Heparin gtt titrated as per protocol ordered. Problem: Adult Inpatient Plan of Care Goal: Plan of Care Review Outcome: Ongoing (Interventions Implemented as Appropriate) Goal: Patient-Specific Goal (Individualized) Outcome: Ongoing (Interventions Implemented as Appropriate) Goal: Absence of Hospital-Acquired Illness or Injury Outcome: Ongoing (Interventions Implemented as Appropriate) Goal: Optimal Comfort and Wellbeing Outcome: Ongoing (Interventions Implemented as Appropriate) Goal: Readiness for Transition of Care Outcome: Ongoing (Interventions Implemented as Appropriate) Problem: Arrhythmia/Dysrhythmia (Cardiac Catheterization) Goal: Stable Heart Rate and Rhythm Outcome: Ongoing (Interventions Implemented as Appropriate) Problem: Bleeding (Cardiac Catheterization) Goal: Absence of Bleeding Outcome: Ongoing (Interventions Implemented as Appropriate) Problem: Contrast-Induced Injury Risk (Cardiac Catheterization) Goal: Absence of Contrast-Induced Injury Outcome: Ongoing (Interventions Implemented as Appropriate) Problem: Embolism (Cardiac Catheterization) Goal: Absence of Embolism Signs and Symptoms Outcome: Ongoing (Interventions Implemented as Appropriate) Problem: Ongoing Anesthesia/Sedation Effects (Cardiac Catheterization) Goal: Anesthesia/Sedation Recovery Outcome: Ongoing (Interventions Implemented as Appropriate) Problem: Pain (Cardiac Catheterization) Goal: Acceptable Pain Control Outcome: Ongoing (Interventions Implemented as Appropriate) Problem: Vascular Access Protection (Cardiac Catheterization) Goal: Absence of Vascular Access Complication Outcome: Ongoing (Interventions Implemented as Appropriate) Problem: Adjustment to Illness (Heart Failure) Goal: Optimal Coping Outcome: Ongoing (Interventions Implemented as Appropriate) Problem: Cardiac Output Decreased (Heart Failure) Goal: Optimal Cardiac Output Outcome: Ongoing (Interventions Implemented as Appropriate) Problem: Dysrhythmia (Heart Failure) Goal: Stable Heart Rate and Rhythm Outcome: Ongoing (Interventions Implemented as Appropriate) Problem: Fluid Imbalance (Heart Failure) Goal: Fluid Balance Outcome: Ongoing (Interventions Implemented as Appropriate) Problem: Functional Ability Impaired (Heart Failure) Goal: Optimal Functional Ability Outcome: Ongoing (Interventions Implemented as Appropriate) Problem: Oral Intake Inadequate (Heart Failure) Goal: Optimal Nutrition Intake Outcome: Ongoing (Interventions Implemented as Appropriate) Problem: Respiratory Compromise (Heart Failure) Goal: Effective Oxygenation and Ventilation Outcome: Ongoing (Interventions Implemented as Appropriate) Problem: Sleep Disordered Breathing (Heart Failure) Goal: Effective Breathing Pattern During Sleep Outcome: Ongoing (Interventions Implemented as Appropriate) * Plan of Care - Irma Rodney RN - 04/24/2023 12:00 PM EDTSummary: Day shift summary OUTCOME EVALUATION NOTE: OUTCOME SUMMARY: Alexis Pelayo is a 52 y.o. male admitted with NSTEMI post cardiogenic shock. This shift he was NPO for cath, and was unable to go. He is NPO at midnight again for potential cath tomorrow. Pt is A+Ox4 and their v/s have been stable. Pt is displaying no signs or symptoms of distress. Pt is in NSR. The plan is for heparin gtt continuous and for him to go to the cleaner laboratory equipment. CPG GOAL OUTCOME EVALUATION: Problem: Adult Inpatient Plan of Care Goal: Plan of Care Review Outcome: Ongoing (Interventions Implemented as Appropriate) Goal: Patient-Specific Goal (Individualized) Outcome: Ongoing (Interventions Implemented as Appropriate) Goal: Absence of Hospital-Acquired Illness or Injury Outcome: Ongoing (Interventions Implemented as Appropriate) Goal: Optimal Comfort and Wellbeing Outcome: Ongoing (Interventions Implemented as Appropriate) Goal: Readiness for Transition of Care Outcome: Ongoing (Interventions Implemented as Appropriate) Problem: Arrhythmia/Dysrhythmia (Cardiac Catheterization) Goal: Stable Heart Rate and Rhythm Outcome: Ongoing (Interventions Implemented as Appropriate) Problem: Bleeding (Cardiac Catheterization) Goal: Absence of Bleeding Outcome: Ongoing (Interventions Implemented as Appropriate) Problem: Contrast-Induced Injury Risk (Cardiac Catheterization) Goal: Absence of Contrast-Induced Injury Outcome: Ongoing (Interventions Implemented as Appropriate) Problem: Embolism (Cardiac Catheterization) Goal: Absence of Embolism Signs and Symptoms Outcome: Ongoing (Interventions Implemented as Appropriate) Problem: Ongoing Anesthesia/Sedation Effects (Cardiac Catheterization) Goal: Anesthesia/Sedation Recovery Outcome: Ongoing (Interventions Implemented as Appropriate) Problem: Pain (Cardiac Catheterization) Goal: Acceptable Pain Control Outcome: Ongoing (Interventions Implemented as Appropriate) Problem: Vascular Access Protection (Cardiac Catheterization) Goal: Absence of Vascular Access Complication Outcome: Ongoing (Interventions Implemented as Appropriate) Problem: Adjustment to Illness (Heart Failure) Goal: Optimal Coping Outcome: Ongoing (Interventions Implemented as Appropriate) Problem: Cardiac Output Decreased (Heart Failure) Goal: Optimal Cardiac Output Outcome: Ongoing (Interventions Implemented as Appropriate) Problem: Dysrhythmia (Heart Failure) Goal: Stable Heart Rate and Rhythm Outcome: Ongoing (Interventions Implemented as Appropriate) Problem: Fluid Imbalance (Heart Failure) Goal: Fluid Balance Outcome: Ongoing (Interventions Implemented as Appropriate) Problem: Functional Ability Impaired (Heart Failure) Goal: Optimal Functional Ability Outcome: Ongoing (Interventions Implemented as Appropriate) Problem: Oral Intake Inadequate (Heart Failure) Goal: Optimal Nutrition Intake Outcome: Ongoing (Interventions Implemented as Appropriate) Problem: Respiratory Compromise (Heart Failure) Goal: Effective Oxygenation and Ventilation Outcome: Ongoing (Interventions Implemented as Appropriate) Problem: Sleep Disordered Breathing (Heart Failure) Goal: Effective Breathing Pattern During Sleep Outcome: Ongoing (Interventions Implemented as Appropriate) Irma ZAMBRANO RN * Plan of Care - Lloyd Deluca DO - 04/24/2023 7:32 AM EDT Images from the original note were not included. Cardiac cath Pre Procedure Note The indications, expected benefits and potential risks of heart catheterization were reviewed in detail with the patient. The potential for , heart attack, stroke, kidney failure, hemorrhage, allergic reaction, vascular complications and infection were reviewed in detail. The possibility of stenting and other percutaneous intervention with associated risk was reviewed. The possible need for emergent coronary artery bypass surgery was reviewed. After a discussion about the above, and havinganswered all questions posed, the patient was provided with a consent which was reviewed and signed. ASA: 2: Patient with mild systemic disease Mallampati: II: tonsillar pillars are blocked by the tongue Sedation Plan: moderate (conscious sedation) Assessment and Plan: Proceed with cardiac cath today, see progress note from today for further details. Lloyd Deluca DO 04/24/2023 Pager [phone] documented in this encounter Plan of Treatment Upcoming Encounters Date Type Department Care Team (Late st Contact Info) Description 09/22/2023 2:30 PM EDT Office Visit Hematology/Oncology at [address] [phone] Cody Frazier MD [facility] [address] [place] [address] Scheduled Orders Name Type Priority Associated Diagnoses Orde r Schedule Basic Metabolic Panel (non-fasting) Lab Routine Malignant neoplasm of lower lobe, right bronchus or lung NSTEMI (non-ST elevated myocardial infarction) Expected: 05/03/2023, Expires: 11/02/2023 Magnesium Lab Routine Malignant neoplasm of lower lobe, right bronchus or lung NSTEMI (non-ST elevated myocardial infarction) Expected: 05/03/2023, Expires: 11/02/2023 Phosphorus Lab Routine Malignant neoplasm of lower lobe, right bronchus or lung NSTEMI (non-ST elevated myocardial infarction) Expected: 05/03/2023, Expires: 11/02/2023 Hemogram Lab Routine Malignant neoplasm of lower lobe, right bronchus or lung NSTEMI (non-ST elevated myocardial infarction) Expected: 05/03/2023, Expires: 11/02/2023 Scheduled Referrals Name Type Priority Associated Diagnoses Order Schedule Referral to Cardiology Outpatient Referral Routine Non-ST elevation myocardial infarction (NSTEMI) Ordered: 04/25/2023 documented as of this encounter Procedures Procedure Name Priority Date/Time Associated Diagnosis Comments IMMUNOGLOBULIN FREE LIGHT CHAINS, SERUM Routine 04/26/2023 12:30 AM EDT LYME IGG & IGM ANTIBODY Routine 04/26/19 12:30 AM EDT HSV 1 AND 2 IGG ANTIBODIES Routine 04/26/2023 12:30 AM EDT HEPATITIS C ANTIBODY Routine 04/26/2023 12:30 AM EDT CMV ANTIBODY, IGM Routine 04/26/2023 12: 30 AM EDT IRON AND TIBC Routine 04/26/2023 12:30 AM EDT PARVOVIRUS B19 ANTIBODY IGG AND IGM Routine 04/26/2023 12:30 AM EDT HEPATITIS A ANTIBODY, TOTAL Routine 04/26/2023 12:30 AM EDT HEPATITIS B CORE ANTIBODY, TOTAL Routine 04/26/2023 12:30 AM EDT VITAMIN D, 25-HYDROXY Routine 04/26/2023 12:30 AM EDT HIV SCREEN, 4TH GENERATION [place] [place] Routine 04/26/2023 12:30 AM EDT HEPATITIS B SURFACE ANTIBODY Routine 04/26/2023 12:30 AM EDT HEPATITIS B SURFACE ANTIGEN Routine 04/26/2023 12:30 AM EDT CMV ANTIBODY, IGG Routine 04/26/2023 12: 30 AM EDT RHEUMATOID FACTOR, QUANT Routine 04/26/2023 12:30 AM EDT HC DNA AB DS (CAMPO) Routine 04/26/2023 12:30 AM EDT TSH Routine 04/26/2023 12:30 AM EDT HC SERUM PROT. ELECTROPHORESIS Routine 04/26/2023 12:30 AM EDT MAGNESIUM Routine 04/26/2023 12:30 AM EDT FOLATE, SERUM Routine 04/26/2023 12:30 AM EDT FERRITIN Routine 04/26/2023 12:30 AM EDT VITAMIN B12 Routine 04/26/2023 12:30 AM EDT BASIC METABOLIC PANEL Routine 04/26/2023 12:30 AM EDT PROTEIN ELECTROPHORESIS, URINE, RANDOM Routine 04/25/2023 6:30 PM EDT CARDIAC CATHETERIZATION Routine 04/25/19 11:20 AM EDT HEPARIN (UNFRACTIONATED) LEVEL Timed 04/25/2023 10:15 AM EDT HEPARIN (UNFRACTIONATED) LEVEL Timed 04/25/2023 3:37 AM EDT HEMOGRAM Routine 04/25/2023 3:37 AM EDT DIFFERENTIAL, AUTOMATED Routine 04/25/19 3:37 AM EDT CBC (WITH DIFF) Routine 04/25/2023 3:37 AM EDT MAGNESIUM Routine 04/25/2023 3:37 AM EDT BASIC METABOLIC PANEL Routine 04/25/2023 3:37 AM EDT HEPARIN (UNFRACTIONATED) LEVEL Timed 04/24/2023 8:30 PM EDT HEPARIN (UNFRACTIONATED) LEVEL Timed 04/24/2023 1:15 PM EDT EKG 12-LEAD STAT 04/24/2023 7:14 AM EDT Non-ST elevation myocardial infarction (NSTEMI) ABORH RECHECK STATUS Routine 04/24/2023 4:29 AM EDT HEPARIN (UNFRACTIONATED) LEVEL Timed 04/24/2023 4:29 AM EDT HEMOGRAM Routine 04/24/2023 4:29 AM EDT DIFFERENTIAL, AUTOMATED Routine 04/24/19 4:29 AM EDT CBC (WITH DIFF) Routine 04/24/2023 4:29 AM EDT TYPE AND SCREEN ([facility]P/[facility]) Routine 04/24/2023 4:29 AM EDT MAGNESIUM Routine 04/24/2023 4:29 AM EDT HEMOGLOBIN A1C Routine 04/24/2023 4:29 AM EDT LIPID PANEL (REFLEX DIRECT LDL) Routine 04/24/2023 4:29 AM EDT BASIC METABOLIC PANEL Routine 04/24/2023 4:29 AM EDT EKG 12-LEAD Routine 04/23/2023 10:45 PM EDT Non-ST elevation myocardial infarction (NSTEMI) documented in this encounter Results * Magnesium (04/26/2023 12:30 AM EDT) Magnesium 0.85 0.69 - 1.07 mmol/L [facility] Blood 04/26/2023 12:3 0 AM EDT 04/26/2023 1:12 AM EDT Narrative Resulting Agency Comment Spec In Lab Lloyd Britt DO CHEMISTRY ORDERABLE S [facility] [place] [address] * Basic Metabolic Panel (non-fasting) (04/26/2023 12:30 AM EDT) Glucose 106 65 - 199 mg/dL [facility] Comment:Diabetes: >=200 mg/d L plus symptoms Blood Urea Nitrogen 13 10 - 20 mg/dL [facility] Creatinine 0.90 0.80 - 1.50 mg/dL [facility] Sodium 140 135 - 145 mmol/L [facility] Potassium 4.3 3.5 - 5.0 mmol/L [facility] Comment: Please note: ??Patients with WBC >100,000 may have falsely elevated Potassium levels. ??For accurate Potassium quantification in these patients send serum separator tube (gold top) for subsequent determinations. ??Contact the Clinical Chemistry Laboratory if there are any questions. Chloride 98 98 - 107 mmol/L [facility] Carbon Dioxide Not Perf - [facility] Comment:Add-on request. Samp le too old to perform test. Anion Gap Unable to Calculate 5 - 15 mmol/L [facility] Calcium 9.2 8.5 - 10.5 mg/dL [facility] Est Glomerular Filtration Rate 103 >=60 mL/min/1 .73 m?? [facility] Comment: This patient's estimated GFR was calculated using the 2020 CKD-EPI equation. The estimated GFR can vary from the measured GFR by up to 30% in the absence of rapidly changing kidney function. Assessment of the estimated GFR is not appropriate when creatinine concentrations are rapidly changing. For clinical situations in which a more precise estimate of GFR is necessary, consider alternative methods of GFR estimation such as a 24-hour urine creatinine clearance. Assignment of CKD stage 1-5 for patients with an eGFR near the transition point between stages may be based on clinical assessment of muscle mass and symptoms in addition to eGFR. Blood 04/26/2023 12:3 0 AM EDT 04/26/2023 1:12 AM EDT Narrative Resulting Agency Comment Spec In Lab Lloyd Britt DO CHEMISTRY ORDERABLE S [facility] [place] [address] * CMV Antibody, IgM (04/26/2023 12:30 AM EDT) CMV IgM Negative Negative [facility] Blood 04/26/2023 12:3 0 AM EDT 04/28/2023 7:19 AM EDT Narrative Resulting Agency Comment Spec In Lab Farideh Machado MD IMMUNOLOGY ORDERAB LES Performing Organization Address City/[facility]/ZIP Co de Phone Number [facility] [place] [address] * CMV Antibody, IgG (04/26/2023 12:30 AM EDT) CMV IgG Negative Negative [facility] Blood 04/26/2023 12:3 0 AM EDT 04/28/2023 7:19 AM EDT Narrative Resulting Agency Comment Spec In Lab Farideh Machado MD IMMUNOLOGY ORDERAB LES Performing Organization Address [facility] Co de Phone Number [facility] [place] [address] * (ABNORMAL) Parvovirus B19 Antibody IgG and IgM (04/26/2023 12:30 AM EDT) Pathologist [facility] Parvo B19 Igg (JUNE) Positive(A) Negative [facility] Comment: Test Performed by: [facility] [employer] [place] [place] [address] Wash Driller: Greg Rudolph M.D. Ph.D.; CLIA# [id number] Parvo B19 IgM (JUNE) Negative Negative [facility] Comment: Test Performed by: [facility] [place] [place] [address] Wash Driller: Greg Rudolph M.D. Ph.D.; CLIA# [id number] Parvo B19 Intrp (JUNE) SEE COMMENT [facility] Comment: RESULT: Results suggest past infection. ADDITIONAL INFORMATION This test has been modified from the help desk associate's instructions. Its performance characteristics were determined by [facility] in a manner consistent with CLIA requirements. This test has not been cleared or approved by the U.S. Food and Drug Administration. Test Performed by: [facility] [place] [place] [place] [address] Wash Driller: Greg Rudolph M.D. Ph.D.; CLIA# [id number] Blood 04/26/2023 12:3 0 AM EDT 04/28/2023 9:01 AM EDT Narrative Resulting Agency Comment Spec In Lab Farideh Machado MD LAB SEND OUT ORDER ENOC Performing Organization Address City/[facility]/ZIP Co de Phone Number [facility] [place] [address] * Lyme IgG & IgM Antibody (04/26/2023 12:30 AM EDT) Lyme Antibody Negative Negative [facility] Lyme Ab Comment Negative result does not exclude possibility of infection. [facility] Comment: Please note that as of 06/18/2022 that this testing is performed by the [facility] [place] [facility] This change in testing location is associated with a change in testing methodology. Blood 04/26/2023 12:3 0 AM EDT 04/28/2023 7:19 AM EDT Narrative Resulting Agency Comment Spec In Lab Farideh Machado MD IMMUNOLOGY ORDERAB LES Performing Organization Address City/[facility]/ZIP Co de Phone Number [facility] [place] [address] * HSV 1 and 2 IgG Antibodies (04/26/2023 12:30 AM EDT) HSV Type 1 Ab, IgG Negative Negative [facility] HSV Type 2 Ab, IgG Negative Negative [facility] Blood 04/26/2023 12:3 0 AM EDT 04/28/2023 7:19 AM EDT Narrative Resulting Agency Comment Spec In Lab Farideh Machado MD IMMUNOLOGY ORDERAB LES Performing Organization Address City/[facility]/ZIP Co de Phone Number [facility] [place] [address] * HIV Screen, 4th Generation [place] [place] (04/26/2023 12:30 AM EDT) HIV Ab/Ag Screen Negative Negative [facility] Comment: This 4th Generation HIV test [...] HIV Comment Low Risk of HIV Infection [facility] Blood 04/26/2023 12:3 0 AM EDT 04/26/2023 1:01 AM EDT Narrative Resulting Agency Comment Spec In Lab Farideh Machado MD CHEMISTRY ORDERABL ES Performing Organization Address [facility] Co de Phone Number [facility] [place] [address] * Hepatitis C Antibody (04/26/2023 12:30 AM EDT) Hepatitis C Antibody Negative Negative [facility] Blood 04/26/2023 12:3 0 AM EDT 04/26/2023 1:01 AM EDT Narrative Resulting Agency Comment Spec In Lab Farideh Machado MD CHEMISTRY ORDERABL ES Performing Organization Address [facility] Co de Phone Number [facility] [place] [address] * Hepatitis B Core Antibody, Total (04/26/2023 12:30 AM EDT) Hepatitis B Core Antibody Negative Negative [facility] Blood 04/26/2023 12:3 0 AM EDT 04/26/2023 1:01 AM EDT Narrative Resulting Agency Comment Spec In Lab Farideh Machado MD CHEMISTRY ORDERABL ES Performing Organization Address [facility] Co de Phone Number [facility] [place] [address] * Hepatitis B Surface Antibody (04/26/2023 12:30 AM EDT) Hepatitis B Surface Antibody, Quantitative <3.5 IU/L [facility] Comment: HepB Surface Ab Quant: Unvaccinated: < 8.5 IU/L Vaccinated: >= 11.5 IU/L Hepatitis B Surface Antibody Negative [facility] Comment: Patient is presumed to be not vaccinated or immune to HBV infection. Expected Results: Vaccinated: Positive Unvaccinated: Negative Blood 04/26/2023 12:3 0 AM EDT 04/26/2023 1:01 AM EDT Narrative Resulting Agency Comment Spec In Lab Farideh Machado MD CHEMISTRY ORDERABL ES Performing Organization Address City/[facility] Co de Phone Number [facility] [place] [address] * Hepatitis B Surface Antigen (04/26/2023 12:30 AM EDT) Hepatitis B Surface Antigen Negative Negative [facility] Blood 04/26/2023 12:3 0 AM EDT 04/26/2023 1:01 AM EDT Narrative Resulting Agency Comment Spec In Lab Farideh Machado MD CHEMISTRY ORDERABL ES Performing Organization Address [facility] Co de Phone Number [facility] [place] [address] * Hepatitis A Antibody, Total (04/26/2023 12:30 AM EDT) Hepatitis A ANTIBODY, TOTAL Negative Negative [facility] Blood 04/26/2023 12:3 0 AM EDT 04/26/2023 1:01 AM EDT Narrative Resulting Agency Comment Spec In Lab Farideh Machado MD CHEMISTRY ORDERABL ES Performing Organization Address [facility] Co de Phone Number [facility] [place] [address] * (ABNORMAL) Free Light Chains, Serum (04/26/2023 12:30 AM EDT) [place] Free Light Chain 2.38 0.72 - 2.75 mg/dL [facility] Lambda Free Light Chain 2.69(H) 0.57 - 2.15 mg/dL [facility] [place]/Lambda FLC Ratio 0.8848 0.4000 - 2.5800 [facility] Blood 04/26/2023 12:3 0 AM EDT 04/26/2023 1:01 AM EDT Narrative Resulting Agency Comment Spec In Lab Farideh Machado MD CHEMISTRY ORDERABL ES Performing Organization Address City/[facility]/ZIP Co de Phone Number [facility] [place] [address] * (ABNORMAL) Protein Electrophoresis, serum (04/26/2023 12:30 AM EDT) Total Prot Electrophoresis 6.0(L) 6.1 - 8.0 g/dL [facility] Albumin Electrophoresis 3.80 3.20 - 5.20 g/dL [facility] Alpha 1 Globulin 0.18 0.10 - 0.30 g/dL [facility] Alpha 2 Globulin 0.62 0.40 - 0.90 g/dL [facility] Beta Globulin 0.65 0.50 - 1.00 g/dL [facility] Gamma Globulin 0.74 0.50 - 1.30 g/dL [facility] M1 Band None Detected None Detected [facility] Blood 04/26/2023 12:3 0 AM EDT 04/26/2023 1:01 AM EDT Narrative Resulting Agency Comment Spec In Lab Farideh Machado MD CHEMISTRY ORDERABL ES Performing Organization Address [facility] Co de Phone Number [facility] [place] [address] * Rheumatoid factor, quant (04/26/2023 12:30 AM EDT) Rheumatoid Factor <10 <=14 IU/mL [facility] Blood 04/26/2023 12:3 0 AM EDT 04/26/2023 1:01 AM EDT Narrative Resulting Agency Comment Spec In Lab Farideh Machado MD CHEMISTRY ORDERABL ES Performing Organization Address City/[facility]/ZIP Co de Phone Number [facility] [place] [address] * VON Antibody Screen (04/26/2023 12:30 AM EDT) VON Ab Screen Negative Negative [facility] Comment: This antinuclear antibody (VON) screen is a qualitative test performed using a fluoroenzyme immunoassay on the Phadia 250 analyzer. This screen is designed to detect antibodies to U1RNP, SS-A/Ro, SS-B/La, centromere B, Scl-70, Neda-1, and Sm(Duran) proteins in serum samples. Antibodies to other nuclear antibodies will not be detected with this assay. This VON screen is also performed in concert with a quantitative for IgG antibodies to dsDNA. Please note that as of 12/04/2021 that this testing is performed by the [facility] [place] [facility] This change in testing location is associated with a change is testing method and reference intervals. Please review the results of this test in association with the posted reference intervals. dsDNA Ab 1.8 <=15.0 IU/mL [facility] Comment: <10 negative 10-15 equivocal >15 positive This dsDNA antibody result was generated using a fluoroenzyme immunoassay on the Phadia 250 analyzer. This quantitative test is designed to detect IgG antibodies directed against double stranded DNA in human serum. The presence of antibodies that recognize dsDNA is a highly specific marker for systemic lupus erythematosus. Please note that as of 12/04/2021 that this testing is performed by the [facility] at [facility] This change in testing location is associated with a change is testing method and reference intervals. Please review the results of this test in association with the posted reference intervals. Blood 04/26/2023 12:3 0 AM EDT 04/28/2023 7:19 AM EDT Narrative Resulting Agency Comment Spec In Lab Farideh Machado MD LAB SEND OUT ORDER ENOC [facility] [place] [address] * (ABNORMAL) Vitamin D, 25-Hydroxy (04/26/2023 12:30 AM EDT) Pathologist [facility] Vitamin D Total 25 [place] <6(L) 21 - 100 ng/mL [facility] Vit D Interp Deficient [facility] Blood 04/26/2023 12:3 0 AM EDT 04/26/2023 1:01 AM EDT Narrative Resulting Agency Comment Spec In Lab Farideh Machado MD CHEMISTRY ORDERABL ES Performing Organization Address City/[facility]/ZIP Co de Phone Number [facility] [place] [address] * (ABNORMAL) Iron and TIBC (04/26/2023 12:30 AM EDT) Iron 83 45 - 160 mcg/dL [facility] TIBC 245(L) 250 - 450 mcg/dL [facility] Iron Saturation 34 20 - 50 % [facility] Blood 04/26/2023 12:3 0 AM EDT 04/26/2023 1:01 AM EDT Narrative Resulting Agency Comment Spec In Lab Farideh Machado MD CHEMISTRY ORDERABL ES Performing Organization Address [facility]/ZIP Co de Phone Number [facility] [place] [address] * Ferritin (04/26/2023 12:30 AM EDT) Ferritin 341 31 - 409 ng/mL [facility] Comment: Please note that as of 01/15/2023, the reference intervals for Ferritin have been updated. Blood 04/26/2023 12:3 0 AM EDT 04/26/2023 1:01 AM EDT Narrative Resulting Agency Comment Spec In Lab Farideh Machado MD CHEMISTRY ORDERABL ES Performing Organization Address City/[facility]/ZIP Co de Phone Number [facility] [place] [address] * Folate, serum (04/26/2023 12:30 AM EDT) Folate 11.3 4.8 - 24.2 ng/mL [facility] Blood 04/26/2023 12:3 0 AM EDT 04/26/2023 1:01 AM EDT Narrative Resulting Agency Comment Spec In Lab Farideh Machado MD CHEMISTRY ORDERABL ES Performing Organization Address City/[facility] Co de Phone Number [facility] [place] [address] * Vitamin B12 (04/26/2023 12:30 AM EDT) Vitamin B12 539 232 - 1,245 pg/mL [facility] Blood 04/26/2023 12:3 0 AM EDT 04/26/2023 1:01 AM EDT Narrative Resulting Agency Comment Spec In Lab Farideh Machado MD CHEMISTRY ORDERABL ES Performing Organization Address [facility] Co de Phone Number [facility] [place] [address] * TSH (04/26/2023 12:30 AM EDT) Thyroid Stimulating Hormone 1.99 0.27 - 4.20 mcIU/mL [facility] Comment: Reference Interval (mcIU/mL): Females: ??First Trimester: 0.23-3.88 ??Second Trimester: 0.22-3.90 ??Third Trimester: 0.44-4.66 Blood 04/26/2023 12:3 0 AM EDT 04/26/2023 1:01 AM EDT Narrative Resulting Agency Comment Spec In Lab Farideh Machado MD CHEMISTRY ORDERABL ES Performing Organization Address [facility] Co de Phone Number [facility] [place] [address] * Protein Electrophoresis, urine, random (04/25/2023 6:30 PM EDT) Protein, Urine <6 0 - 12 mg/dL [facility] U Albumin Not Perf [facility] Globulin, Urine Not Perf [facility] M1 Band, Urine Not Perf [facility] UPEP Comments See Note [facility] Comment: Total Protein concentration too low to fractionate using current electrophoretic technique. Urine 04/25/2023 6:30 PM EDT 04/25/2023 6:36 PM EDT Narrative Resulting Agency Comment Spec In Lab Farideh Machado MD URINE ORDERABLES [facility] [place] [address] * CARDIAC CATHETERIZATION (04/25/2023 11:20 AM EDT) Anatomical Region Laterality Modality Other Narrative 04/25/2023 10:24 PM EDT ?[facility] ? Cardiac Catheterization/Intervention Report ? Patient Name: Alexis Pelayo. ? Procedure Date: 04/25/2023 ? A #: [id number] ? Primary Physician: El Meligy, Amr ? Case #: [id number] ? File Name: [id number] ? Catheterization Order Number: [id number] ? [facility] ? Final Report [place], [place] ? Patient Name: ? Alexislisa Pelayo ? ID#: ?[id number] ? : ?1970 ? Procedure Date: ? April 25, 2023 ? Case #: ? [id number] ? Room: ? 2 ? Case Physician: ? Amr El Israel Burris. ?Start: ?11:02 ? Admission: ??04/23/2023 ? Referring Physician: ??Keon Morales M.D. ? Procedures: ?* Coronary Angiography ?* Left Heart Catheterization ? History ?Alexis Pelayo is a 52 year old man. He has hypertension. The patient's ?smoking status is Former. He is status post an acute myocardial ?infarction as well as a recent non-ST elevation myocardial infarction. ?The patient has a history of an ejection fraction less than or equal to ?35%. He has a history of CHF. The CHF is NYHA Functional Class II and is ?classified as Systolic. He also has a history of chronic obstructive ?pulmonary disease and cancer. Prior to the initiation of this procedure, ?the patient was designated as ASA Class III. The CSHA clinical frailty ?scale is 3: Managing Well. ? Diagnostic Tests: ?Prior Coronary Angiography: ? LV ejection fraction within 6 months is 20%. ?Electrocardiography: ? EKG was assessed by ECG. EKG was Abnormal. EKG showed other ? abnormality. ? Indications for Diagnostic Cath: ?The priority of the diagnostic procedure was Urgent. The indication for ?the cleaner laboratory equipment visit is cardiomyopathy and LV dysfunction. Chest pain ?symptom assessment was: Asymptomatic. ? Technique: ?A 6 SLFr sheath was inserted in the right radial artery utilizing the ?Seldinger technique. The left coronary artery was injected utilizing a ?6Fr JL 3.5 catheter. A 6Fr JR 4 catheter was used to inject the right ?coronary artery. Left ventricular pressure was performed utilizing a 6Fr ?JR 4 catheter. Aortic Root was performed with a 6Fr JR 4 catheter. 5,000 ?units of heparin were administered. A total of 100cc of Omnipaque were ?opened, 74cc of Omnipaque were administered and 26cc of Omnipaque were ?wasted. Radiation: Fluoro time was 3.0 minutes, dose area product was ?19.00 Gy/cm2 and air kerma was 278 mGY. See the case log for additional ?details. ?The patient received the following medications prior to and during the ?procedure: ? Unfractionated Heparin. ? Hemodynamics: ?Left Heart Pressures ? Resting: ? Syst Diast ? EDP ?a ?v ? m ?Ao 108 ?? 67 ?84 ?LV 108 ? 12 ? Coronary Angiography: ?Dominance: Right ?Left Main ? The left main was normal, free of disease. ?Left Anterior Descending ? There was mild diffuse (<=25% stenosis) disease of the entire vessel ? segment of the left anterior descending artery (LAD). ??The mid ? segment of the LAD had mild diffuse (<=25% stenosis) disease. ? Distal flow was normal. ? There was mild diffuse (<=25% stenosis) disease of the mid segment ? of the first diagonal branch (Diagonal 1) of the LAD. ??The Diagonal ? 1 was large. ??Distal flow was normal. ?Left Circumflex ? There was mild diffuse (<=25% stenosis) disease of the entire vessel ? segment of the left circumflex artery (LCX). ?Right Coronary Artery ? There was mild diffuse (<=25% stenosis) disease of the entire vessel ? segment of the right coronary artery (RCA). ? Vascular Access: ?Vascular Access Management: ? Mechanical Compression of the right radial artery access site was ? performed. ? Conclusions: ?* Nonobstructive coronary artery disease ? Complications/Events: ?The patient had no complications during these procedures. ? Post Procedure Fluid Recommendations: ?IV fluid at 196 mL/hr for 4 hours for a total of 784 mL. These ?recommendations are made at the time of the procedure. Patient and ?provider preferences or a changing clinical situation may require ?modification of this regimen. ? Comments: ?Non obstructive CAD ?Normal LV fiolling pressures. ?The attending physician was present for the entire procedure. ?Dr. Ivone Burris M.D. was present during the moderate sedation ?intraservice time as documented by the sedation nurse. ??Case time = 00:12. ?Dr. Ivone Burris M.D. performed the coronary angiography and left heart ?catheterization. ? Ivone Burris M.D. ? Report Finalized: 04/25/2023 ??22:14 ? Report Last Ammended: 04/25/2023 ??22:21 ? Procedure Note Ivone Hargrove MD - 04/25/2023 [facility] Cardiac Catheterization/Intervention Report Patient Name: Alexis Pelayo Procedure Date: 04/25/2023 A #: [id number] Primary Physician: Ivone Hargrove Case #: [id number] File Name: [id number] Catheterization Order Number: [id number] [facility] FinalReport [place], [place] Patient Name: Alexislisa Pelayo ID#:[id number] :1970 Procedure Date: April 25, 2023 Case #: [id number] Room: 2 Case Physician: Ivone Burris M.D. Start: 11:02 Admission:04/23/2023 Referring Physician: Keon Morales M.D. Procedures: * Coronary Angiography * Left Heart Catheterization History Alexis Pelayo is a 52 year old man. He has hypertension. Thepatient's smoking status is Former. He is status post an acute myocardial infarction as well as a recent non-ST elevation myocardialinfarction. The patient has a history of an ejection fraction less than or equalto 35%. He has a history of CHF. The CHF is NYHA Functional Class IIand is classified as Systolic. He also has a history of chronic obstructive pulmonary disease and cancer. Prior to the initiation of thisprocedure, the patient was designated as ASA Class III. The [facility] clinicalfrailty scale is 3: Managing Well. Diagnostic Tests: Prior Coronary Angiography: LV ejection fraction within 6 months is 20%. Electrocardiography: EKG was assessed by ECG. EKG was Abnormal. EKG showed other abnormality. Indications for Diagnostic Cath: The priority of the diagnostic procedure was Urgent. The indicationfor the cleaner laboratory equipment visit is cardiomyopathy and LV dysfunction. Chest pain symptom assessment was: Asymptomatic. Technique: A 6 SLFr sheath was inserted in the right radial artery utilizingthe Seldinger technique. The left coronary artery was injected utilizinga 6Fr JL 3.5 catheter. A 6Fr JR 4 catheter was used to inject theright coronary artery. Left ventricular pressure was performed utilizing a6Fr JR 4 catheter. Aortic Root was performed with a 6Fr JR 4 catheter.5,000 units of heparin were administered. A total of 100cc of Omnipaquewere opened, 74cc of Omnipaque were administered and 26cc of Omnipaquewere wasted. Radiation: Fluoro time was 3.0 minutes, dose area productwas 19.00 Gy/cm2 and air kerma was 278 mGY. See the case log foradditional details. The patient received the following medications prior to and duringthe procedure: Unfractionated Heparin. Hemodynamics: Left Heart Pressures Resting: Syst Diast EDP a v m Ao 108 67 84 LV 108 12 Coronary Angiography: Dominance: Right Left Main The left main was normal, free of disease. Left Anterior Descending There was mild diffuse (<=25% stenosis) disease of the entirevessel segment of the left anterior descending artery (LAD). The mid segment of the LAD had mild diffuse (<=25% stenosis) disease. Distal flow was normal. There was mild diffuse (<=25% stenosis) disease of the midsegment of the first diagonal branch (Diagonal 1) of the LAD. TheDiagonal 1 was large. Distal flow was normal. Left Circumflex There was mild diffuse (<=25% stenosis) disease of the entirevessel segment of the left circumflex artery (LCX). Right Coronary Artery There was mild diffuse (<=25% stenosis) disease of the entirevessel segment of the right coronary artery (RCA). Vascular Access: Vascular Access Management: Mechanical Compression of the right radial artery access sitewas performed. Conclusions: * Nonobstructive coronary artery disease Complications/Events: The patient had no complications during these procedures. Post Procedure Fluid Recommendations: IV fluid at 196 mL/hr for 4 hours for a total of 784 mL. These recommendations are made at the time of the procedure. Patient and provider preferences or a changing clinical situation may require modification of this regimen. Comments: Non obstructive CAD Normal LV fiolling pressures. The attending physician was present for the entire procedure. Dr. Ivone Burris M.D. was present during the moderate sedation intraservice time as documented by the sedation nurse. Case time =00:12. Dr. Ivone Burris M.D. performed the coronary angiography and leftheart catheterization. Ivone Burris M.D. Report Finalized: 04/25/2023 22:14 Report Last Ammended: 04/25/2023 22:21 Ivone Burris MD CARDIAC CATH ORDERAB LES * (ABNORMAL) Heparin (unfractionated) Level (04/25/2023 10:15 AM EDT) UF Heparin 1.62(Crit ical) IU/mL [facility] Comment: Critical Result called by ?? STEPHANIEL CRITICAL Results read back by: ? Buddy Troy at 2023-04-25 11:22:09 Heparin (anti-Xa) levels should be determined in a plasma sample that has been drawn 6 hours after a dose change to approximate steady-state for continuous heparin infusions. Indication specific Heparin (anti-Xa) levels based on order set selection: Acute DVT or PE treatment: 0.3 ? 0.7 IU/mL Thrombosis Prevention (eg. atrial fibrillation, renae-procedural bridging, mechanical valves): 0.3 ? 0.7 IU/mL Acute Coronary Syndrome: 0.3 ? 0.7 IU/mL Stroke Indications: 0.3 ? 0.5 IU/mL Ultra-low intensity (select indications in cardiac surgery): 0.1 ? 0.3 IU/mL Blood 04/25/2023 10:1 5 AM EDT 04/25/2023 10:34 AM EDT Narrative Resulting Agency Comment Spec In Lab Vazquez Lan MD HEMATOLOGY ORDERABLE S Performing Organization Address City/State/[facility] Co de Phone Number [facility] [place] [address] * (ABNORMAL) Differential, Automated (04/25/2023 3:37 AM EDT) Neutrophil % 58.0 % [facility] Neutrophil Absolute 5.74 1.70 - 6.10 x10(3)/mc L [facility] Lymph % 23.2 % [facility] Lymphocytes Abs 2.3 0.9 - 3.2 x10(3)/mc L [facility] Monocyte % 10.2 % [facility] Monocyte Abs 1.0(H) 0.3 - 0.9 x10(3)/mc L [facility] Eos % 4.3 % [facility] Eosinophils Abs 0.4 0.0 - 0.4 x10(3)/mc L [facility] Basophil % 1.3 % [facility] Baso Absolute 0.1 0.0 - 0.1 x10(3)/mc L [facility] Immature Gran % 3.00 % [facility] Comment: Immature granulocytes(IG's)percentage and absolute count will include metamyelocytes, myelocytes, and promyelocytes. Blood smears from CBCs yielding IG's will be scanned manually for concordance. If this scan disagrees with the automated IG or if promyelocytes are noted, a manual differential will be performed. Immature Gran Absolute 0.30(H) 0.00 - 0.04 x10(3)/mc L [facility] Blood 04/25/2023 3:37 AM EDT 04/25/2023 3:49 AM EDT Narrative Resulting Agency Comment Spec In Lab Vazquez Lan MD HEMATOLOGY ORDERABLE S [facility] [place] [address] * (ABNORMAL) Hemogram (04/25/2023 3:37 AM EDT) White Blood Cell 9.9(H) 4.0 - 9.5 x10(3)/mc L [facility] Red Blood Cell 3.79(L) 4.58 - 5.54 x10(6)/mc [facility] Hemoglobin 11.6(L) 13.7 - 16.5 g/dL [facility] Hematocrit 35.1(L) 40.5 - 48.5 % [facility] Mean Cell Volume 92.6 82.9 - 93.[address] [facility] Mean Cell Hemoglobin 30.6 27.5 - 32.[address] [facility] Mean Cell Hemoglobin Concentration 33.0 32.0 - 35.7 g/dL [facility] Platelet 517(H) 145 - 357 x10(3)/mc L [facility] RDW Standard Deviation 46.6(H) 36.0 - 45.[address] [facility] RDW coefficient of variation 14.2(H) 11.4 - 13.8 % [facility] Mean Platelet Volume 9.6 7.6 - 12.[address] [facility] NRBC% auto 0.0 % [facility] NRBC Absolute 0.000 0.000 - 0.000 x10(3)/mc L [facility] Blood 04/25/2023 3:37 AM EDT 04/25/2023 3:49 AM EDT Narrative Resulting Agency Comment Spec In Lab Vazquez Lan MD HEMATOLOGY ORDERABLE S Performing Organization Address City/[facility]/ZIP Co de Phone Number [facility] [place] [address] * Magnesium (04/25/2023 3:37 AM EDT) Magnesium 0.84 0.69 - 1.07 mmol/L [facility] Blood 04/25/2023 3:37 AM EDT 04/25/2023 3:49 AM EDT Narrative Resulting Agency Comment Spec In Lab Vazquez Lan MD CHEMISTRY ORDERABLES Performing Organization Address [facility] Co de Phone Number [facility] [place] [address] * (ABNORMAL) Basic Metabolic Panel (non-fasting) (04/25/2023 3:37 AM EDT) Glucose 106 65 - 199 mg/dL [facility] Comment:Diabetes: >=200 mg/d L plus symptoms Blood Urea Nitrogen 12 10 - 20 mg/dL [facility] Creatinine 0.74(L) 0.80 - 1.50 mg/dL [facility] Sodium 139 135 - 145 mmol/L [facility] Potassium 4.3 3.5 - 5.0 mmol/L [facility] Comment: Please note: ??Patients with WBC >100,000 may have falsely elevated Potassium levels. ??For accurate Potassium quantification in these patients send serum separator tube (gold top) for subsequent determinations. ??Contact the Clinical Chemistry Laboratory if there are any questions. Chloride 101 98 - 107 mmol/L [facility] Carbon Dioxide 30 22 - 31 mmol/L [facility] Anion Gap 8 5 - 15 mmol/L [facility] Calcium 8.9 8.5 - 10.5 mg/dL [facility] Est Glomerular Filtration Rate 110 >=60 mL/min/1. 73 m?? [facility] Comment: This patient's estimated GFR was calculated using the 2020 CKD-EPI equation. The estimated GFR can vary from the measured GFR by up to 30% in the absence of rapidly changing kidney function. Assessment of the estimated GFR is not appropriate when creatinine concentrations are rapidly changing. For clinical situations in which a more precise estimate of GFR is necessary, consider alternative methods of GFR estimation such as a 24-hour urine creatinine clearance. Assignment of CKD stage 1-5 for patients with an eGFR near the transition point between stages may be based on clinical assessment of muscle mass and symptoms in addition to eGFR. Blood 04/25/2023 3:37 AM EDT 04/25/2023 3:49 AM EDT Narrative Resulting Agency Comment Spec In Lab Vazquez Lan MD CHEMISTRY ORDERABLES Performing Organization Address [facility] [place] [address] * Heparin (unfractionated) Level (04/25/2023 3:37 AM EDT) UF Heparin 0.29 IU/mL [facility] Comment: Heparin (anti-Xa) levels should be determined in a plasma sample that has been drawn 6 hours after a dose change to approximate steady-state for continuous heparin infusions. Indication specific Heparin (anti-Xa) levels based on order set selection: Acute DVT or PE treatment: 0.3 ? 0.7 IU/mL Thrombosis Prevention (eg. atrial fibrillation, renae-procedural bridging, mechanical valves): 0.3 ? 0.7 IU/mL Acute Coronary Syndrome: 0.3 ? 0.7 IU/mL Stroke Indications: 0.3 ? 0.5 IU/mL Ultra-low intensity (select indications in cardiac surgery): 0.1 ? 0.3 IU/mL Blood 04/25/2023 3:37 AM EDT 04/25/2023 3:49 AM EDT Narrative Resulting Agency Comment Spec In Lab Vazquez Lan MD HEMATOLOGY ORDERABLE S Performing Organization Address [facility] [place] [address] * Heparin (unfractionated) Level (04/24/2023 8:30 PM EDT) UF Heparin 0.15 IU/mL [facility] Comment: Heparin (anti-Xa) levels should be determined in a plasma sample that has been drawn 6 hours after a dose change to approximate steady-state for continuous heparin infusions. Indication specific Heparin (anti-Xa) levels based on order set selection: Acute DVT or PE treatment: 0.3 ? 0.7 IU/mL Thrombosis Prevention (eg. atrial fibrillation, renae-procedural bridging, mechanical valves): 0.3 ? 0.7 IU/mL Acute Coronary Syndrome: 0.3 ? 0.7 IU/mL Stroke Indications: 0.3 ? 0.5 IU/mL Ultra-low intensity (select indications in cardiac surgery): 0.1 ? 0.3 IU/mL Blood 04/24/2023 8:30 PM EDT 04/24/2023 9:03 PM EDT Narrative Resulting Agency Comment Spec In Lab Vazquez Lan MD HEMATOLOGY ORDERABLE S Performing Organization Address [facility] Co de Phone Number [facility] [place] [address] * Heparin (unfractionated) Level (04/24/2023 1:15 PM EDT) UF Heparin 0.55 IU/mL [facility] Comment: Heparin (anti-Xa) levels should be determined in a plasma sample that has been drawn 6 hours after a dose change to approximate steady-state for continuous heparin infusions. Indication specific Heparin (anti-Xa) levels based on order set selection: Acute DVT or PE treatment: 0.3 ? 0.7 IU/mL Thrombosis Prevention (eg. atrial fibrillation, renae-procedural bridging, mechanical valves): 0.3 ? 0.7 IU/mL Acute Coronary Syndrome: 0.3 ? 0.7 IU/mL Stroke Indications: 0.3 ? 0.5 IU/mL Ultra-low intensity (select indications in cardiac surgery): 0.1 ? 0.3 IU/mL Blood 04/24/2023 1:15 PM EDT 04/24/2023 1:38 PM EDT Narrative Resulting Agency Comment Spec In Lab Vazquez Lan MD HEMATOLOGY ORDERABLE S Performing Organization Address City/[facility] Co de Phone Number [facility] [place] [address] * EKG 12 Lead (04/24/2023 7:14 AM EDT) Ventricular rate 67 BPM MUSE SYSTEM Atrial Rate 67 BPM MUSE SYSTEM P-R Interval 142 ms MUSE SYSTEM QRS Duration 74 ms MUSE SYSTEM Q-T Interval 410 ms MUSE SYSTEM QTC Calculated (Bezet) 433 ms MUSE SYSTEM Calculated P [place] 66 degrees MUSE SYSTEM Calculated R [place] 8 degrees MUSE SYSTEM Calculated T [place] 91 degrees MUSE SYSTEM INTERPRETATION Normal sinus rhythm T wave abnormality, consider anterolateral ischemia Abnormal ECG When compared with ECG of 23-APR-2023 22:45, T wave abnormality improved in inferior leads I personally reviewed the tracing and edited the fellows interpretation Confirmed by fellow MD Kearns Andrew ([id number]) on 04/24/2023 10:35:23 AM Confirmed by Von Palmer ([id number]) on 04/25/2023 5:36:31 PM MUSE SYSTEM 04/24/2023 7:14 AM EDT 04/25/2023 5:36 PM EDT Vazquez Lan MD ECG ORDERABLES MUSE SYSTEM * ABORH Recheck Status (04/24/2023 4:29 AM EDT) Pathologist [facility] ABORH Recheck Order Order Placed [facility] ABORH Type Recheck Completed [facility] Blood 04/24/2023 4:29 AM EDT 04/24/2023 5:20 AM EDT Narrative Resulting Agency Comment Spec In Lab Vazquez Lan MD BLOOD BANK LAB ORDER ENOC [facility] [place] [address] * (ABNORMAL) Differential, Automated (04/24/2023 4:29 AM EDT) Neutrophil % 60.8 % [facility] Neutrophil Absolute 7.31(H) 1.70 - 6.10 x10(3)/mc L [facility] Lymph % 21.0 % [facility] Lymphocytes Abs 2.5 0.9 - 3.2 x10(3)/mc L [facility] Monocyte % 11.6 % [facility] Monocyte Abs 1.4(H) 0.3 - 0.9 x10(3)/[facility] Eos % 2.1 % [facility] Eosinophils Abs 0.2 0.0 - 0.4 x10(3)/[facility] Basophil % 0.7 % [facility] Baso Absolute 0.1 0.0 - 0.1 x10(3)/[facility] Immature Gran % 3.80 % [facility] Comment: Immature granulocytes(IG's)percentage and absolute count will include metamyelocytes, myelocytes, and promyelocytes. Blood smears from CBCs yielding IG's will be scanned manually for concordance. If this scan disagrees with the automated IG or if promyelocytes are noted, a manual differential will be performed. Immature Gran Absolute 0.46(H) 0.00 - 0.04 x10(3)/[facility] Blood 04/24/2023 4:29 AM EDT 04/24/2023 5:13 AM EDT Narrative Resulting Agency Comment Spec In Lab Vazquez Lan MD HEMATOLOGY ORDERABLE S Performing Organization Address City/State/[facility] Co de Phone Number [facility] [place] [address] * (ABNORMAL) Hemogram (04/24/2023 4:29 AM EDT) White Blood Cell 12.0(H) 4.0 - 9.5 x10(3)/[facility] Red Blood Cell 3.74(L) 4.58 - 5.54 x10(6)/ L [facility] Hemoglobin 11.4(L) 13.7 - 16.5 g/dL [facility] Hematocrit 35.5(L) 40.5 - 48.5 % [facility] Mean Cell Volume 94.9(H) 82.9 - 93.[address] [facility] Mean Cell Hemoglobin 30.5 27.5 - 32.[address] [facility] Mean Cell Hemoglobin Concentration 32.1 32.0 - 35.7 g/dL [facility] Platelet 589(H) 145 - 357 x10(3)/mc L [facility] RDW Standard Deviation 46.0(H) 36.0 - 45.0 fL [facility] RDW coefficient of variation 13.9(H) 11.4 - 13.8 % [facility] Mean Platelet Volume 10.2 7.6 - 12.9 fL [facility] NRBC% auto 0.2 % [facility] NRBC Absolute 0.020(H) 0.000 - 0.000 x10(3)/mc L [facility] Blood 04/24/2023 4:29 AM EDT 04/24/2023 5:13 AM EDT Narrative Resulting Agency Comment Spec In Lab Vazquez Lan MD HEMATOLOGY ORDERABLE S Performing Organization Address City/[facility]/ZIP Co de Phone Number [facility] [place] [address] * Heparin (unfractionated) Level (04/24/2023 4:29 AM EDT) UF Heparin 0.11 IU/mL [facility] Comment: Specimen drawn more than one hour prior to testing. Results may not be reliable for heparin monitoring. Result may be falsely low. Heparin (anti-Xa) levels should be determined in a plasma sample that has been drawn 6 hours after a dose change to approximate steady-state for continuous heparin infusions. Indication specific Heparin (anti-Xa) levels based on order set selection: Acute DVT or PE treatment: 0.3 ? 0.7 IU/mL Thrombosis Prevention (eg. atrial fibrillation, renae-procedural bridging, mechanical valves): 0.3 ? 0.7 IU/mL Acute Coronary Syndrome: 0.3 ? 0.7 IU/mL Stroke Indications: 0.3 ? 0.5 IU/mL Ultra-low intensity (select indications in cardiac surgery): 0.1 ? 0.3 IU/mL Blood 04/24/2023 4:29 AM EDT 04/24/2023 5:13 AM EDT Narrative Resulting Agency Comment Spec In Lab Vazquez Lan MD HEMATOLOGY ORDERABLE S [facility] [place] [address] * (ABNORMAL) Hemoglobin A1c (04/24/2023 4:29 AM EDT) Hemoglobin A1c 6.2(H) 4.3 - 5.6 % [facility] Comment: Reference Range: 4.3 - 5.6% 5.7 - 6.4% - Increased Risk of Developing Diabetes Mellitus >= 6.5% - Consistent with diagnosis of Diabetes Mellitus In the absence of hyperglycemia (i.e. plasma glucose > 200 mg/dL) or classic symptoms of hyperglycemia a repeat measurement of HbA1c should be performed on a separate sample to confirm the diagnosis. Diagnosis and Classification of Diabetes Mellitus, Diabetes Care 2013; 36: Suppl. 1, W27-52 Estimated Average Glucose 130 mg/dL [facility] Blood 04/24/2023 4:29 AM EDT 04/24/2023 5:13 AM EDT Narrative Resulting Agency Comment Spec In Lab Vazquez Lan MD CHEMISTRY ORDERABLES Performing Organization Address [facility] [facility]/State/ZIP Co de Phone Number [facility] [place] [address] * Lipid Panel (Reflex Direct LDL) (04/24/2023 4:29 AM EDT) Cholesterol, Total 135 mg/dL [facility] Comment: Desirable: ? <200 mg/dL Borderline High: 200-239 mg/dL Higher: ?>sn=315 mg/dL Triglyceride 76 mg/dL [facility] Comment: Normal: ?<150 mg/dL Borderline High: 150-199 mg/dL High: ?200-499 mg/dL Very High: ? >vn=048 mg/dL HDL Cholesterol 47 mg/dL [facility] Comment: Females: High Risk: <50 mg/dL Males: High Risk: <40 mg/dL LDL Cholesterol 73 mg/dL [facility] Comment: Desirable: ? <100 mg/dL Above Desirable: 100-129 mg/dL Borderline High: 130-159 mg/dL High: ?160-189 mg/dL Very High: ? >fy=384 mg/dL Cholesterol/HDL Ratio 2.9 ratio [facility] Lipid Interpretation See Note [facility] Comment: It is important to review [...] ACC/AHA Guidelines (most recently Scarlett et al. [facility] 11/13/21): ?? For individuals with atherosclerotic cardiovascular disease (ASCVD)or LDL >nq=801 mg/dL, use a high-intensity statin (40-80 mg [...] In Lab Vazquez Lan MD CHEMISTRY ORDERABLES Performing Organization Address City/[facility]/ZIP Co de Phone Number [facility] [place] [address] * Type and screen [place] (04/24/2023 4:29 AM EDT) Pathologist [facility] ABORH Type A NEGATIVE [facility] Patient BB History Not Found [facility] Expires at [id number] on: 04-27-2023 [facility] Ab Screen Interp Negative [facility] Blood 04/24/2023 4:29 AM EDT 04/24/2023 4:[address] [facility] - 04/24/2023 4:29 AM EDT This Type and Screen result is only valid at the [facility] Resulting Agency Comment Spec In Lab Vazquez Lan MD BLOOD BANK LAB ORDER ENOC Performing Organization Address [facility] Co de Phone Number [facility] [place] [address] * Magnesium (04/24/2023 4:29 AM EDT) [facility] Magnesium 0.79 0.69 - 1.07 mmol/L [facility] Blood 04/24/2023 4:29 AM EDT 04/24/2023 5:13 AM EDT Narrative Resulting Agency Comment Spec In Lab Vazquez Lan MD CHEMISTRY ORDERABLES Performing Organization Address City/[facility]/ZIP Co de Phone Number [facility] [place] [address] * (ABNORMAL) Basic Metabolic Panel (non-fasting) (04/24/2023 4:29 AM EDT) [facility] Glucose 99 65 - 199 mg/dL [facility] Comment:Diabetes: >=200 mg/d L plus symptoms Blood Urea Nitrogen 14 10 - 20 mg/dL [facility] Creatinine 0.81 0.80 - 1.50 mg/dL [facility] Sodium 138 135 - 145 mmol/L [facility] Potassium 3.6 3.5 - 5.0 mmol/L [facility] Comment: Please note: ??Patients with WBC >100,000 may have falsely elevated Potassium levels. ??For accurate Potassium quantification in these patients send serum separator tube (gold top) for subsequent determinations. ??Contact the Clinical Chemistry Laboratory if there are any questions. Chloride 98 98 - 107 mmol/L [facility] Carbon Dioxide 32(H) 22 - 31 mmol/L [facility] Anion Gap 8 5 - 15 mmol/L [facility] Calcium 8.8 8.5 - 10.5 mg/dL [facility] Est Glomerular Filtration Rate 107 >=60 mL/min/1. 73 m?? [facility] Comment: This patient's estimated GFR was calculated using the 2020 CKD-EPI equation. The estimated GFR can vary from the measured GFR by up to 30% in the absence of rapidly changing kidney function. Assessment of the estimated GFR is not appropriate when creatinine concentrations are rapidly changing. For clinical situations in which a more precise estimate of GFR is necessary, consider alternative methods of GFR estimation such as a 24-hour urine creatinine clearance. Assignment of CKD stage 1-5 for patients with an eGFR near the transition point between stages may be based on clinical assessment of muscle mass and symptoms in addition to eGFR. Blood 04/24/2023 4:29 AM EDT 04/24/2023 5:13 AM EDT Narrative Resulting Agency Comment Spec In Lab Vazquez Lan MD CHEMISTRY ORDERABLES [facility] [place] [address] * EKG 12 Lead (04/23/2023 10:45 PM EDT) Ventricular rate 86 BPM MUSE SYSTEM Atrial Rate 86 BPM MUSE SYSTEM P-R Interval 140 ms MUSE SYSTEM QRS Duration 74 ms MUSE SYSTEM Q-T Interval 402 ms MUSE SYSTEM QTC Calculated (Bezet) 481 ms MUSE SYSTEM Calculated P [place] 64 degrees MUSE SYSTEM Calculated R [place] 48 degrees MUSE SYSTEM Calculated T [place] 149 degrees MUSE SYSTEM INTERPRETATION Normal sinus rhythm T wave abnormality, consider anterolateral ischemia T wave abnormality, consider inferior ischemia Abnormal ECG No previous ECGs available I personally reviewed the tracing and edited the fellows interpretation Confirmed by fellow MD Urmila, Alexis ([id number]) on 04/24/2023 10:29:48 AM Confirmed by Von Palmer ([id number]) on 04/25/2023 5:36:26 PM MUSE SYSTEM 04/23/2023 10:4 5 PM EDT 04/25/2023 5:36 PM EDT Vazquez Lan MD ECG ORDERABLES MUSE SYSTEM documented in this encounter Visit Diagnoses Diagnosis NSTEMI (non-ST elevated myocardial infarction)- Primary Acute myocardial infarction, subendocardial infarction, episode of care unspecified Non-ST elevation myocardial infarction (NSTEMI) Acute myocardial infarction, subendocardial infarction, episode of care unspecified Malignant neoplasm of lower lobe, right bronchus or lung NSTEMI (non-ST elevated myocardial infarction) Acute myocardial infarction, subendocardial infarction, episode of care unspecified documented in this encounter Admitting Diagnoses Diagnosis NSTEMI (non-ST elevated myocardial infarction) Acute myocardial infarction, subendocardial infarction, episode of care unspecified documented in this encounter Administered Medications Inactive Administered Medications - up to 3 most recent administrations Medication Order MAR Action Action Date Dose Rate Site acetaminophen (Tylenol) tablet 650 mg 650 mg, Oral, EVERY 6 HOURS PRN, Starting on Fri04/23/23 at 2218, Until 04/26/23 at 1452, Pain, Maximum dose of acetaminophen is 4,000 mg from all sources in 24 hours. When ordered for pain, acetaminophen should be given even when other ordered pain medications are indicated., Routine Given 04/25/2023 4:28 PM EDT 650 mg aspirin chewable tablet 81 mg 81 mg, Oral, DAILY, First dose on Fri04/25/23 at 1400, Until Discontinued, Routine Given 04/26/2023 7:38 AM EDT 81 mg Given 04/25/2023 1:19 PM EDT 81 mg budesonide-formoteroL (Symbicort) 160-4.5 mcg/actuation inhaler 2 Inhalation 2 Inhalation , Inhalation, 2 TIMES DAILY, First dose on Fri04/24/23 at 0900, Until Discontinued, Prime inhaler before first use or if has not been used for more than 5 days. Shake well prior to each use. Rinse mouth with water (spit out without swallowing) after each use., Routine Given 04/25/2023 9:03 PM EDT 2 Inhalation Given 04/25/2023 8:23 AM EDT 2 Inhalation Given 04/24/2023 9:59 PM EDT 2 Inhalation calcium carbonate (TUMS) chewable tablet 500-1,000 mg 500-1,000 mg, Oral, EVERY 4 HOURS PRN, Starting on Fri04/25/23 at 1952, Until Fri04/26/23 at 1452, Heartburn, Give 500 mg (1 tablet) for mild to moderate heartburn. Give 1,000 mg (2 tablets) for severe heartburn., Routine Given 04/25/2023 8:09 PM EDT 1,000 mg droNABinol (Marinol) capsule 10 mg 10 mg, Oral, 2 TIMES DAILY BEFORE MEALS, First dose on Fri04/24/23 at 0730, Until Discontinued, Routine Given 04/26/2023 7:39 AM EDT 10 mg Given 04/25/2023 4:28 PM EDT 10 mg Given 04/25/2023 6:47 AM EDT 10 mg heparin (porcine) (1,000 units/mL) injection 0-4,000 Units 0-4,000 Units, Intravenous, BOLUS PER HEPARIN PROTOCOL, Starting on Fri04/23/23 at 2218, Until Fri04/25/23 at 1306, Per Protocol, START ADJUSTMENT SCHEDULE 6 HOURS AFTER STARTING INFUSION Bolus doses are rounded to the nearest 100 units. If Heparin UFH Level is: - Less than 0.1 international unit/mL: Bolus 60 units/kg (Maximum of 4,000 units) = Bolus 4,000 units - 0.1 - 0.19 International unit/mL: Bolus 30 units/kg (Maximum of 2,000 units) = Bolus 2,000 units - Equal to or greater than 0.2 international unit/mL: No Bolus, Routine Given 04/24/2023 10:07 PM EDT 2,000 Units Given 04/24/2023 6:29 AM EDT 2,000 Units heparin (porcine) 25,000 unit/500 mL (50 unit/mL) infusion 1 dose, Starting on Fri04/23/23 at 2123, Until Fri04/23/23 at 2200, Leora Ennis: cabinet override heparin (porcine) 50 units/mL in dextrose 5% 500 mL infusion 0-5,000 Units/hr (0-100 mL/hr), Intravenous, CONTINUOUS, Starting on Fri04/23/23 at 2315, Until Fri04/25/23 at 1306, Begin infusion at 800 units per hr (12 units/kg/hr). Maximum initial infusion rate is 1,000 units/hr. Infusion doses are rounded to the nearest 50 units. Target Heparin UFH Level (anti-Xa activity) = 0.3 - 0.7 international unit/mL Start adjustment schedule 6 hours after starting infusion. If Heparin UFH Level is: - Less than 0.1 international unit/mL: Administer PRN bolus and increase rate by 250 units per hr (4 units/kg/hr) - 0.1 - 0.19 international unit/mL: Administer PRN bolus and increase rate by 150 units per hr (2 units/kg/hr) - 0.2 - 0.29 international unit/mL: NO BOLUS and increase rate by 150 units per hr (2 units/kg/hr) - 0.3 - 0.7 international unit/mL: No change - 0.71 - 0.79 international unit/mL: NO BOLUS and decrease rate by 50 units per hr (1 units/kg/hr) - 0.8 - 0.99 international unit/mL: NO BOLUS and decrease rate by 150 units per hr (2 units/kg/hr) - Greater than or equal to 1.00 international unit/mL: Hold infusion for 60 minutes then decrease rate by 200 units per hour (3 units/kg/hr) Obtain Heparin UFH Level 6 hours after initiating heparin. Then 6 hours after each dose adjustment. When 2 consecutive Heparin UFH Level within target range of 0.3 - 0.7 international unit/mL, change Heparin UFH Level to once every 24 hours with A.M. labs while on heparin. RN to order required Heparin UFH Level - Per Protocol, Routine Rate/Dose Change 04/25/2023 4:10 AM EDT 1,200 Units/hr 24 mL/hr Rate/Dose Change 04/24/2023 10:05 PM EDT 1,050 Units/hr 21 mL/hr Rate/Dose Change 04/24/2023 6:28 AM EDT 950 Units/hr 19 mL /hr HYDROmorphone (Dilaudid) tablet 4 mg 4 mg, Oral, EVERY 8 HOURS SCHEDULED, First dose on Fri04/23/23 at 2230, Until Discontinued, Please give 1 hour prior to long acting morphine, Routine Given 04/26/2023 5:02 AM EDT 4 mg Given 04/25/2023 9:03 PM EDT 4 mg Given 04/25/2023 1:04 PM EDT 4 mg ipratropium-albuteroL (Duoneb) 0.5 mg-3 mg(2.5 mg base)/3 mL nebulizer solution 3 mL 3 mL, Nebulization, EVERY 4 HOURS WHILE AWAKE, First dose (after last modification) on Fri04/25/23 at 1400, Until Discontinued, Routine lidocaine (Xylocaine) 1% (10 mg/mL) injection 3 mg 3 mg (0.3 mL), Subcutaneous, ONCE PRN, 1 dose, Starting on Fri04/23/23 at 2141, Until Fri04/26/23 at 1452, for discomfort with PIV insertion, Routine losartan (Cozaar) tablet 25 mg 25 mg, Oral, DAILY, First dose on Fri04/25/23 at 1245, Until Discontinued, Routine Given 04/26/2023 7:38 AM EDT 25 mg Given 04/25/2023 1:04 PM EDT 25 mg morphine CR (MS Contin) tablet 100 mg 100 mg, Oral, EVERY 8 HOURS SCHEDULED, First dose on Fri04/23/23 at 2315, Until Discontinued, DO NOT CRUSH OR OPEN, Routine Given 04/26/2023 5:02 AM EDT 100 mg Given 04/25/2023 9:03 PM EDT 100 mg Given 04/25/2023 1:04 PM EDT 100 mg nitroGLYcerin (Nitrostat) disintegrating tablet 0.4 mg 0.4 mg, Sublingual, EVERY 5 MIN PRN, Starting on Fri04/23/23 at 2141, Until 04/26/23 at 1452, Chest pain, May repeat every 5 minutes for a total of three doses. Notify provider if chest pain not relieved with nitroglycerin. Do not administer nitroglycerin if the patient has received or taken phosphodiesterase (PDE-5) inhibitors such as sildenafil, tadalafil or vardenafil within the last 24 to 72 hours., Routine pantoprazole EC (Protonix) tablet 40 mg 40 mg, Oral, DAILY, First dose on Fri04/24/23 at 0900, Until Discontinued Given 04/26/2023 7:38 AM EDT 40 mg Given 04/25/2023 8:22 AM EDT 40 mg Given 04/24/2023 8:10 AM EDT 40 mg polyethylene glycoL (Miralax) packet 17 g 17 g, Oral, DAILY PRN, Starting on Fri04/24/23 at 0959, Until 04/26/23 at 1452, Constipation, Routine potassium chloride ER (Klor-Con M) crystal tablet 40 mEq 40 mEq, Oral, ONCE, 1 dose, On Fri04/24/23 at 0715, potassium chloride ER particle/crystal tablets (Klor-Con M) may be broken in half and each half swallowed separately. Tablets can be dissolved in ~4 ounces of water; allow ~2 minutes to dissolve, stir well and drink immediately. Do not crush, chew, or suck on tablet., Routine Given 04/24/2023 6:37 AM EDT 40 mEq pregabalin (Lyrica) capsule 50 mg 50 mg, Oral, 2 TIMES DAILY, First dose on Fri04/24/23 at 0900, Until Discontinued, Routine Given 04/26/2023 7:38 AM EDT 50 mg Given 04/25/2023 9:03 PM EDT 50 mg Given 04/25/2023 8:22 AM EDT 50 mg rosuvastatin (Crestor) tablet 10 mg 10 mg, Oral, EVERY EVENING, First dose on Fri04/25/23 at 1700, Until Discontinued, Routine Given 04/25/2023 4:28 PM EDT 10 mg senna-docusate (Pericolace) 8.6-50 mg per tablet 1 tablet 1 tablet, Oral, DAILY, First dose on Fri04/24/23 at 1045, Until Discontinued, Routine sodium chloride 0.9 % (flush) (BD PosiFlush Normal Saline 0.9) flush 5 mL 5 mL, Intravenous, 2 TIMES DAILY, First dose on Fri04/23/23 at 2245, Until Discontinued, Routine Given 04/25/2023 9:04 PM EDT 5 mLs Given 04/25/2023 8:23 AM EDT 5 mLs Given 04/24/2023 9:00 PM EDT 5 mLs sodium chloride 0.9 % (flush) (BD PosiFlush Normal Saline 0.9) flush 5-20 mL 5-20 mL, Intravenous, EVERY 1 MIN PRN, Starting on Fri04/23/23 at 2141, Until Fri04/26/23 at 1452, flush, Flush pertains to all indwelling lines. Flush per protocol found in the job aid using the link provided on this medication record., Routine sodium chloride 0.9% infusion 75 mL/hr, Intravenous, CONTINUOUS, Starting on Fri04/25/23 at 1200, Until Fri04/25/23 at 1459, Recovery (Recovery-Hospital Unit) New Bag 04/25/2023 11:57 AM EDT 75 mL/hr 75 mL /hr tiotropium bromide (Spiriva Respimat) 2.5 mcg/actuation inhaler 2 puff 2 puff, Inhalation, DAILY, First dose on Fri04/24/23 at 0900, Until Discontinued Given 04/25/2023 9:00 AM EDT 2 puffs Given 04/24/2023 8:11 AM EDT 2 puffs documented in this encounter Active and Recently Administered Medications Times are shown in EDT. Scheduled Medication Order 04/24/2023 04/25/2023 04/26/2023 aspirin chewable tablet 81 mg 81 mg, Oral, DAILY, First dose on Fri04/25/23 at 1400, Until Discontinued, Routine 1319 (Given - Provider: Leeann Stafford RN) 0738 (Given - Provider: Nicholas Santana RN)0900 (Not Given - Provider: Nicholas Santana RN - Reason: See comment - Comment: given prior to breakfast per pt request) budesonide-formoteroL (Symbicort) 160-4.5 mcg/actuation inhaler 2 Inhalation 2 Inhalation , Inhalation, 2 TIMES DAILY, First dose on Fri04/24/23 at 0900, Until Discontinued, Prime inhaler before first use or if has not been used for more than 5 days. Shake well prior to each use. Rinse mouth with water (spit out without swallowing) after each use., Routine 0811 (Given - Provider: Irma Rodney, PATRICIA)2159 (Given - Provider: Edel Garcia, PATRICIA) 0823 (Given - Provider: Leeann Stafford, PATRICIA)1040 (APR Hold - Provider: Admin Adt - Reason: Transfer to a Procedural area)1144 (APR Unhold - Provider: Admin Adt)2103 (Given - Provider: Cassi Kebede RN) 0900 (Not Given - Provider: Nicholas Santana RN - Reason: Patient/family refused) droNABinol (Marinol) capsule 10 mg 10 mg, Oral, 2 TIMES DAILY BEFORE MEALS, First dose on Fri04/24/23 at 0730, Until Discontinued, Routine 0638 (Given - Provider: Christie Solomon, PATRICIA)1722 (Given - Provider: Irma Rodney, PATRICIA) 0647 (Given - Provider: Edel Garcia, PATRICIA)1040 (APR Hold - Provider: Admin Adt - Reason: Transfer to a Procedural area)1144 ([facility] Unhold - Provider: Admin Adt)1628 (Given - Provider: Leeann Stafford, PATRICIA) 0739 (Given - Provider: Nicholas Santana, PATRICIA) HYDROmorphone (Dilaudid) tablet 4 mg 4 mg, Oral, EVERY 8 HOURS SCHEDULED, First dose on Fri04/23/23 at 2230, Until Discontinued, Please give 1 hour prior to long acting morphine, Routine 0638 (Given - Provider: Christie Solomon, PATRICIA)1308 (Given - Provider: Irma Rodney, PATRICIA)2159 (Given - Provider: Edel Garcia, PATRICIA) 0641 (Given - Provider: Edel Garcia, PATRICIA)1040 (APR Hold - Provider: Admin Adt - Reason: Transfer to a Procedural area)1144 (APR Unhold - Provider: Admin Adt)1304 (Given - Provider: Leeann Stafford RN)2103 (Given - Provider: Cassi Kebede, RN) 0502 (Given - Provider: Cassi Kebede, PATRICIA) ipratropium-albuteroL (Duoneb) 0.5 mg-3 mg(2.5 mg base)/3 mL nebulizer solution 3 mL 3 mL, Nebulization, EVERY 4 HOURS WHILE AWAKE, First dose (after last modification) on Fri04/25/23 at 1400, Until Discontinued, Routine 1400 (Not Given - Provider: Leeann Stafford RN - Reason: Patient/family refused)1800 (Not Given - Provider: Leeann Stafford RN - Reason: Patient/family refused)2200 (Not Given - Provider: Cassi Kebede RN - Reason: Patient/family refused) 0600 (Not Given - Provider: Cassi Kebede RN - Reason: Patient/family refused)1000 (Not Given - Provider: Nicholas Santana RN - Reason: Patient/family refused) losartan (Cozaar) tablet 25 mg 25 mg, Oral, DAILY, First dose on Fri04/25/23 at 1245, Until Discontinued, Routine 1304 (Given - Provider: Leeann Stafford RN) 0738 (Given - Provider: Nicholas Santana RN)0900 (Not Given - Provider: Nicholas Santana RN - Reason: See comment - Comment: given prior to breakfast per pt request) morphine CR (MS Contin) tablet 100 mg 100 mg, Oral, EVERY 8 HOURS SCHEDULED, First dose on Fri04/23/23 at 2315, Until Discontinued, DO NOT CRUSH OR OPEN, Routine 0638 (Given - Provider: Christie Solomon, RN)1308 (Given - Provider: Irma Rodney, PATRICIA)2159 (Given - Provider: Edel Garcia, PATRICIA) 0641 (Given - Provider: Edel Garcia, RN)1040 (MAR Hold - Provider: Admin Adt - Reason: Transfer to a Procedural area)1144 (MAR Unhold - Provider: Admin Adt)1304 (Given - Provider: Leeann Stafford RN)2103 (Given - Provider: Cassi Kebede RN) 0502 (Given - Provider: Cassi Kebede RN) pantoprazole EC (Protonix) tablet 40 mg 40 mg, Oral, DAILY, First dose on Fri04/24/23 at 0900, Until Discontinued 0810 (Given - Provider: Irma Rodney RN) 0822 (Given - Provider: Leeann Stafford, PATRICIA)1040 (APR Hold - Provider: Admin Adt - Reason: Transfer to a Procedural area)1144 (APR Unhold - Provider: Admin Adt) 0738 (Given - Provider: Nicholas Santana, PATRICIA)0900 (Not Given - Provider: Nicholas Santana RN - Reason: See comment - Comment: given prior to breakfast per pt request) potassium chloride ER (Klor-Con M) crystal tablet 40 mEq (COMPLETED) 40 mEq, Oral, ONCE, 1 dose, On Fri04/24/23 at 0715, potassium chloride ER particle/crystal tablets (Klor-Con M) may be broken in half and each half swallowed separately. Tablets can be dissolved in ~4 ounces of water; allow ~2 minutes to dissolve, stir well and drink immediately. Do not crush, chew, or suck on tablet., Routine 0637 (Given - Provider: Christie Solomon RN) pregabalin (Lyrica) capsule 50 mg 50 mg, Oral, 2 TIMES DAILY, First dose on Fri04/24/23 at 0900, Until Discontinued, Routine 0810 (Given - Provider: Irma Rodney, PATRICIA)2159 (Given - Provider: Edel Garcia RN) 0822 (Given - Provider: Leeann Stafford RN)1040 (APR Hold - Provider: Admin Adt - Reason: Transfer to a Procedural area)1144 (MAR Unhold - Provider: Admin Adt)2103 (Given - Provider: Cassi Kebede, PATRICIA) 0738 (Given - Provider: Nicholas Santana RN)0900 (Not Given - Provider: Nicholas Santana RN - Reason: See comment - Comment: given prior to breakfast per pt request) rosuvastatin (Crestor) tablet 10 mg 10 mg, Oral, EVERY EVENING, First dose on Fri04/25/23 at 1700, Until Discontinued, Routine 1628 (Given - Provider: Leeann Stafford, PATRICIA) senna-docusate (Pericolace) 8.6-50 mg per tablet 1 tablet 1 tablet, Oral, DAILY, First dose on Fri04/24/23 at 1045, Until Discontinued, Routine 1045 (Not Given - Provider: Irma Rodney RN - Reason: Patient/family refused) 0900 (Not Given - Provider: Leeann Stafford RN - Reason: Patient/family refused)1040 (APR Hold - Provider: Admin Adt - Reason: Transfer to a Procedural area)1144 (APR Unhold - Provider: Admin Adt) 0900 (Not Given - Provider: Nicholas Santana RN - Reason: Patient/family refused) sodium chloride 0.9 % (flush) (BD PosiFlush Normal Saline 0.9) flush 5 mL 5 mL, Intravenous, 2 TIMES DAILY, First dose on Fri04/23/23 at 2245, Until Discontinued, Routine 0812 (Given - Provider: Irma Rodney RN)2100 (Given - Provider: Edel Garcia RN) 0823 (Given - Provider: Leeann Stafford RN)1040 ([facility] Hold - Provider: Admin Adt - Reason: Transfer to a Procedural area)1144 ([facility] Unhold - Provider: Admin Adt)2104 (Given - Provider: Cassi Kebede RN) 0900 (Not Given - Provider: Nicholas Santana RN - Reason: Patient/family refused) tiotropium bromide (Spiriva Respimat) 2.5 mcg/actuation inhaler 2 puff 2 puff, Inhalation, DAILY, First dose on Fri04/24/23 at 0900, Until Discontinued 0811 (Given - Provider: Irma Rodney, PATRICIA) 0900 (Given - Provider: Leeann Stafford, PATRICIA)1040 (APR Hold - Provider: Admin Adt - Reason: Transfer to a Procedural area)1144 ([facility] Unhold - Provider: Admin Adt) 0900 (Not Given - Provider: Nicholas Santana RN - Reason: Patient/family refused) Continuous Medication Order 04/24/2023 04/25/2023 04/26/2023 heparin (porcine) 50 units/mL in dextrose 5% 500 mL infusion (CANCELED)(Linked Group 1) 0-5,000 Units/hr (0-100 mL/hr), Intravenous, CONTINUOUS, Starting on Fri04/23/23 at 2315, Until Fri04/25/23 at 1306, Begin infusion at 800 units per hr (12 units/kg/hr). Maximum initial infusion rate is 1,000 units/hr. Infusion doses are rounded to the nearest 50 units. Target Heparin UFH Level (anti-Xa activity) = 0.3 - 0.7 international unit/mL Start adjustment schedule 6 hours after starting infusion. If Heparin UFH Level is: - Less than 0.1 international unit/mL: Administer PRN bolus and increase rate by 250 units per hr (4 units/kg/hr) - 0.1 - 0.19 international unit/mL: Administer PRN bolus and increase rate by 150 units per hr (2 units/kg/hr) - 0.2 - 0.29 international unit/mL: NO BOLUS and increase rate by 150 units per hr (2 units/kg/hr) - 0.3 - 0.7 international unit/mL: No change - 0.71 - 0.79 international unit/mL: NO BOLUS and decrease rate by 50 units per hr (1 units/kg/hr) - 0.8 - 0.99 international unit/mL: NO BOLUS and decrease rate by 150 units per hr (2 units/kg/hr) - Greater than or equal to 1.00 international unit/mL: Hold infusion for 60 minutes then decrease rate by 200 units per hour (3 units/kg/hr) Obtain Heparin UFH Level 6 hours after initiating heparin. Then 6 hours after each dose adjustment. When 2 consecutive Heparin UFH Level within target range of 0.3 - 0.7 international unit/mL, change Heparin UFH Level to once every 24 hours with A.M. labs while on heparin. RN to order required Heparin UFH Level - Per Protocol, Routine 0628 (Rate/Dose Change - Provider: Christie Solomon RN)2205 (Rate/Dose Change - Provider: Edel Garcia, PATRICIA) 0410 (Rate/Dose Change - Provider: Edel Garcia, PATRICIA)1015 (Stopped - Provider: Leeann Stafford RN)1040 (MAR Hold - Provider: Admin Adt - Reason: Transfer to a Procedural area)1144 (APR Unhold - Provider: Admin Adt) sodium chloride 0.9% infusion () 75 mL/hr, Intravenous, CONTINUOUS, Starting on Fri04/25/23 at 1200, Until Fri04/25/23 at 1459, Recovery (Recovery-Hospital Unit) 1157 (New Bag - Provider: Leeann Stafford, PATRICIA)1445 (Stopped - Provider: Leeann Stafford RN) PRN Medication Order 04/24/2023 04/25/2023 04/26/2023 acetaminophen (Tylenol) tablet 650 mg 650 mg, Oral, EVERY 6 HOURS PRN, Starting on Fri04/23/23 at 2218, Until 04/26/23 at 1452, Pain, Maximum dose of acetaminophen is 4,000 mg from all sources in 24 hours. When ordered for pain, acetaminophen should be given even when other ordered pain medications are indicated., Routine 1040 (APR Hold - Provider: Admin Adt - Reason: Transfer to a Procedural area)1144 (MAR Unhold - Provider: Admin Adt)1628 (Given - Provider: Leeann Stafford RN) calcium carbonate (TUMS) chewable tablet 500-1,000 mg 500-1,000 mg, Oral, EVERY 4 HOURS PRN, Starting on Fri04/25/23 at 1952, Until 04/26/23 at 1452, Heartburn, Give 500 mg (1 tablet) for mild to moderate heartburn. Give 1,000 mg (2 tablets) for severe heartburn., Routine 2008 (Given - Provider: Cassi Kebede RN) fentaNYL (pf) (50 mcg/mL) multi-dose injection (CANCELED) PRN, Starting on Fri04/25/23 at 1051, Until Fri04/25/23 at 1120, Intra-Operative (Intra-Procedure), Routine 105 (Given - Provider: Erik Barboza RN)105 (Given - Provider: Erik Barboza RN) heparin (porcine) (1,000 units/mL) injection 0-4,000 Units (CANCELED)(Linked Group 1) 0-4,000 Units, Intravenous, BOLUS PER HEPARIN PROTOCOL, Starting on Fri04/23/23 at 2218, Until Fri04/25/23 at 1306, Per Protocol, START ADJUSTMENT SCHEDULE 6 HOURS AFTER STARTING INFUSION Bolus doses are rounded to the nearest 100 units. If Heparin UFH Level is: - Less than 0.1 international unit/mL: Bolus 60 units/kg (Maximum of 4,000 units) = Bolus 4,000 units - 0.1 - 0.19 International unit/mL: Bolus 30 units/kg (Maximum of 2,000 units) = Bolus 2,000 units - Equal to or greater than 0.2 international unit/mL: No Bolus, Routine 0629 (Given - Provider: Christie Solomon, RN)2207 (Given - Provider: Edel Garcia, PATRICIA) 1040 (APR Hold - Provider: Admin Adt - Reason: Transfer to a Procedural area)1144 (APR Unhold - Provider: Admin Adt) heparin (porcine) (1,000 units/mL) injection (CANCELED) PRN, Starting on Fri04/25/23 at 1103, Until Fri04/25/23 at 1120, Intra-Operative (Intra-Procedure), Routine 1103 (Given - Provider: Edel Lopez, PATRICIA) lidocaine (Xylocaine) 1% (10 mg/mL) injection 3 mg 3 mg (0.3 mL), Subcutaneous, ONCE PRN, 1 dose, Starting on Fri04/23/23 at 2141, Until Fri04/26/23 at 1452, for discomfort with PIV insertion, Routine 1040 (APR Hold - Provider: Admin Adt - Reason: Transfer to a Procedural area)1144 (APR Unhold - Provider: Admin Adt) lidocaine (Xylocaine) 1% (10 mg/mL) injection (CANCELED) PRN, Starting on Fri04/25/23 at 1059, Until Fri04/25/23 at 1120, Intra-Operative (Intra-Procedure), Routine 1059 (Given - Provider: Ivone Burris MD) midazolam (pf) (Versed) (1 mg/mL) multi-dose injection (CANCELED) PRN, Starting on Fri04/25/23 at 1051, Until Fri04/25/23 at 1120, Intra-Operative (Intra-Procedure), Routine 1051 (Given - Provider: Erik Barboza RN)1058 (Given - Provider: Erik Barboza RN) nitroGLYcerin (Nitrostat) disintegrating tablet 0.4 mg 0.4 mg, Sublingual, EVERY 5 MIN PRN, Starting on Fri04/23/23 at 2141, Until 04/26/23 at 1452, Chest pain, May repeat every 5 minutes for a total of three doses. Notify provider if chest pain not relieved with nitroglycerin. Do not administer nitroglycerin if the patient has received or taken phosphodiesterase (PDE-5) inhibitors such as sildenafil, tadalafil or vardenafil within the last 24 to 72 hours., Routine 1040 ([facility] Hold - Provider: Admin Adt - Reason: Transfer to a Procedural area)1144 ([facility] Unhold - Provider: Admin Adt) nitroGLYcerin 100 mcg/mL intracoronary dilution (CANCELED) PRN, Starting on 04/25/23 at 1102, Until Fri04/25/23 at 1120, Intra-Operative (Intra-Procedure), Routine 1102 (Given - Provider: THOMAS Nicolas) polyethylene glycoL (Miralax) packet 17 g 17 g, Oral, DAILY PRN, Starting on Anabella 04/24/23 at 0959, Until 04/26/23 at 1452, Constipation, Routine 1040 ([facility] Hold - Provider: Admin Adt - Reason: Transfer to a Procedural area)1144 ([facility] Unhold - Provider: Admin Adt) prochlorperazine (Compazine) tablet 10 mg 10 mg, Oral, EVERY 6 HOURS PRN, Starting on Fri04/23/23 at 2214, Until 04/26/23 at 1452, Nausea, Maximum dose: 50 mg / 24 hrs, Routine 1040 ([facility] Hold - Provider: Admin Adt - Reason: Transfer to a Procedural area)1144 ([facility] Unhold - Provider: Admin Adt) sodium chloride 0.9 % (flush) (BD PosiFlush Normal Saline 0.9) flush 5-20 mL 5-20 mL, Intravenous, EVERY 1 MIN PRN, Starting on Fri04/23/23 at 2141, Until 04/26/23 at 1452, flush, Flush pertains to all indwelling lines. Flush per protocol found in the job aid using the link provided on this medication record., Routine 1040 ([facility] Hold - Provider: Admin Adt - Reason: Transfer to a Procedural area)1144 (MAR Unhold - Provider: Admin Adt) verapamiL (Isoptin) (2.5 mg/mL) injection (CANCELED) PRN, Starting on Fri04/25/23 at 1102, Until Fri04/25/23 at 1120, Administer over 2 Minutes, Intra-Operative (Intra-Procedure) 1102 (Given - Provider: THOMAS Nicolas) Linked Groups Order Group 1: heparin (porcine) 50 units/mL in dextrose 5% 500 mL infusion (CANCELED)Jump to med 0-5,000 Units/hr (0-100 mL/hr), Intravenous, CONTINUOUS, Starting on Fri04/23/23 at 2315, Until Fri04/25/23 at 1306, Begin infusion at 800 units per hr (12 units/kg/hr). Maximum initial infusion rate is 1,000 units/hr. Infusion doses are rounded to the nearest 50 units. Target Heparin UFH Level (anti-Xa activity) = 0.3 - 0.7 international unit/mL Start adjustment schedule 6 hours after starting infusion. If Heparin UFH Level is: - Less than 0.1 international unit/mL: Administer PRN bolus and increase rate by 250 units per hr (4 units/kg/hr) - 0.1 - 0.19 international unit/mL: Administer PRN bolus and increase rate by 150 units per hr (2 units/kg/hr) - 0.2 - 0.29 international unit/mL: NO BOLUS and increase rate by 150 units per hr (2 units/kg/hr) - 0.3 - 0.7 international unit/mL: No change - 0.71 - 0.79 international unit/mL: NO BOLUS and decrease rate by 50 units per hr (1 units/kg/hr) - 0.8 - 0.99 international unit/mL: NO BOLUS and decrease rate by 150 units per hr (2 units/kg/hr) - Greater than or equal to 1.00 international unit/mL: Hold infusion for 60 minutes then decrease rate by 200 units per hour (3 units/kg/hr) Obtain Heparin UFH Level 6 hours after initiating heparin. Then 6 hours after each dose adjustment. When 2 consecutive Heparin UFH Level within target range of 0.3 - 0.7 international unit/mL, change Heparin UFH Level to once every 24 hours with A.M. labs while on heparin. RN to order required Heparin UFH Level - Per Protocol, Routine And heparin (porcine) (1,000 units/mL) injection 0-4,000 Units (CANCELED)Jump to med 0-4,000 Units, Intravenous, BOLUS PER HEPARIN PROTOCOL, Starting on 04/23/23 at 2218, Until Fri04/25/23 at 1306, Per Protocol, START ADJUSTMENT SCHEDULE 6 HOURS AFTER STARTING INFUSION Bolus doses are rounded to the nearest 100 units. If Heparin UFH Level is: - Less than 0.1 international unit/mL: Bolus 60 units/kg (Maximum of 4,000 units) = Bolus 4,000 units - 0.1 - 0.19 International unit/mL: Bolus 30 units/kg (Maximum of 2,000 units) = Bolus 2,000 units - Equal to or greater than 0.2 international unit/mL: No Bolus, Routine documented in this encounter Care Teams Ripsawyer Relationship Specialty Start Date End Date Nikki Hermosillo, SUCCESS COACH [facility] [place] [address] PCP - General Family Medicine 04/25/23 documented as of this encounter
--- OUTSIDE RECORDS SUMMARY | 2023-09-15 02:19 | XMS_ITS | Encounter Summary ---
Author Organization [facility] Address [facility] [place] [address] Care Team Providers Care Eight Section Blower Name Role Phone None Primary Care Provider Unavailabl e Encounter Details Date Type Department Care Team (Late st Contact Info) Description 04/17/2023 Telephone Cardiology at [address] [phone] Joelle Macdonald MD [facility] [place] [address] Social History Tobacco Use Types Packs/Day Years [...] place to sleep or slept in a senior care (including now)? No 07/16/2021 Sex and Gender Information Value Date Recorded Sex Assigned at Not on file Gender Identity Not on file Sexual Orientation Not on file documented as of this encounter Miscellaneous Notes * Telephone Encounter - Joelle Macdonald MD - 04/17/2023 9:14 PM EST Images from the original note were not included. 04/17/2023 Alexis Pelayo Initial Contact Date: 04/17/2023 Initial contact time: 9:14 PM Referring Provider: Dr. Sparrow Patient Location: [facility] [place] Past Medical History: COPD Metastatic Lung Cancer - mets to bones Presenting Symptoms per OSH: Patient presented with acute shortness of breath. After arrival became progressively short of breath and developed chest pain. Found to have acute hypoxic and hypercapnic respiratory failure. Being treated for COPD exacerbation. Patient just intubated. Pertinent Diagnostic Findings: Troponin 2700, no repeat yet LA 6 K 6.3 Cr 1.4 (baseline 0.8) EKG: Sinus tachycardia - aVR elevation, without reciprocal depressions inferiorly - not meeting STEMI criteria OSH Interventions: ASA load Heparin gtt Treatment for COPD Intubation Correction of hyperkalemia Plan: Patient is having a NSTEMI. Unclear if type 1 or 2 - but would lean toward type II. I recommended medical management at this time while respiratory failure, hyperkalemia, and renal failure is corrected. Would continue heparin gtt, aspirin, statin. Would add P2Y12 inhibitor if troponin continues to up trend and no contraindications since picture is unclear. Please trend troponin and ekgs. Advised them to call back if needed. Above recommendations were based on my discussion with Dr. Sparrow; I have not personally interviewed or examined this patient. Advised to call the transfer center back with any changes in the patient condition. I have not personally reviewed EKGs. Joelle Macdonald MD Corporate Account Executive PGY5 Pager [phone] documented in this encounter Plan of Treatment Upcoming Encounters Date Type Department Care Team (Late st Contact Info) Description 09/22/2023 2:30 PM EDT Office Visit Hematology/Oncology at [address] [phone] Cody Frazier MD [facility] [place] [address] documented as of this encounter Visit Diagnoses Not on filedocumented in this encounter Care Teams Eight Section Blower Relationship Specialty Start Date End Date None None PCP - General 04/03/22 04/24/23 documented as of this encounter
--- OUTSIDE RECORDS SUMMARY | 2023-09-15 02:19 | XMS_ITS | Encounter Summary ---
Author Organization [facility] Address [facility] [place] [id number] Care Team Providers Care Instructor Product Inspection Name Role Phone None Primary Care Provider Unavailabl e Encounter Details Date Type Department Care Team (Latest Contact Info) Description 03/10/2023 Travel Social History Tobacco Use Types Packs/Day [...] slept in a detention (including now)? No 07/16/2021 Sex and Gender Information Value Date Recorded Sex Assigned at Not on file Gender Identity Not on file Sexual Orientation Not on file documented as of this encounter Plan of Treatment Upcoming Encounters Date Type Department Care Team (Late st Contact Info) Description 09/22/2023 2:30 PM EDT Office Visit Hematology/Oncology at [address] [phone] Cody Frazier MD [facility] [place] [address] documented as of this encounter Visit Diagnoses Not on filedocumented in this encounter Care Teams Instructor Product Inspection Relationship Specialty Start Date End Date None None PCP - General 04/03/22 04/24/23 documented as of this encounter
--- OUTSIDE RECORDS SUMMARY | 2023-09-15 02:19 | XMS_ITS | Encounter Summary ---
Author Organization [facility] Address [facility] [place] [address] Care Team Providers Care Fisher Diving Name Role Phone None Primary Care Provider Unavailabl e Reason for Visit * Reason Onset Date Comments Medication Refill 03/26/2023 Encounter Details Date Type Department Care Team (Late st Contact Info) Description 03/26/2023 Telephone Hematology/Oncology at [address] [phone] Bandar Dillard, inside barrel polisher Refill Social History Tobacco Use Types Packs/Day [...] place to sleep or slept in a nursing home (including now)? No 07/16/2021 Sex and Gender Information Value Date Recorded Sex Assigned at Not on file Gender Identity Not on file Sexual Orientation Not on file documented as of this encounter Miscellaneous Notes * Telephone Encounter - Bandar Dillard RN - 03/26/2023 9:41 AM EST New prescription placed and pharmacy updated. ----- Message from Bea Grimes APRN sent at 03/26/2023 8:25 AM EST ----- Regarding: RE: [email or web address] Perfect, thanks! I did it as 4mg Q6H PRN just in case, it's in now ----- Message ----- From: Bandar Dillard RN Sent: 03/25/2023 2:44 PM EST To: Bea Grimes APRN Subject: RE: brian He does take 2 tabs at a time, states he takes 4 mg three times daily. Thank you! ----- Message ----- From: Bea Grimes APRN Sent: 03/25/2023 2:31 PM EST To: Bandar Dillard RN Subject: RE: brian I think that would be fine, can I ask you to call Alexis and see if he ever uses just 2? That way Ican write for 0.5-1 tab, and also jigna adjust the quantity accordingly. ----- Message ----- From: Bandar Dillard RN Sent: 03/25/2023 1:36 PM EST To: Bea Grimes APRN Subject: brian Called pharmacy to confirm their supplier has no 2 mg tabs and unsure when they will get some. Theydo have 4 mg tabs so asking if we can send a script to them for that strength ? Please advise, thanks! Bandar GOMEZ ----- Message ----- From: Ashanti Lira Sent: 03/25/2023 8:41 AM EST To: [facility] Hem Onc Nurse Alexis called in to let us know that there is a national drug shortage on his HYDROmorphone (Dilaudid) 2 mg tablet and he is wondering if there is another medication that he could get to take it's place [facility] said that they do not know how long before it would be available to get his refill Best call back [phone] documented in this encounter Plan of Treatment Upcoming Encounters Date Type Department Care Team (Late st Contact Info) Description 09/22/2023 2:30 PM EDT Office Visit Hematology/Oncology at [address] [phone] Cody Frazier MD [facility] [place] [address] documented as of this encounter Visit Diagnoses Not on filedocumented in this encounter Care Teams Fisher Diving Relationship Specialty Start Date End Date None None PCP - General 04/03/22 04/24/23 documented as of this encounter
--- OUTSIDE RECORDS SUMMARY | 2023-09-15 02:19 | XMS_ITS | Encounter Summary ---
Author Organization [facility] Address [facility] [place] [address] Care Team Providers Care Rotating Equipment Engineer Name Role Phone None Primary Care Provider Unavailabl e Encounter Details Date Type Department Care Team (Late st Contact Info) Description 04/17/2023 External [place] [phone] Social History Tobacco Use Types [...] place to sleep or slept in a fci (including now)? No 07/16/2021 Sex and Gender Information Value Date Recorded Sex Assigned at Not on file Gender Identity Not on file Sexual Orientation Not on file documented as of this encounter Plan of Treatment Upcoming Encounters Date Type Department Care Team (Late st Contact Info) Description 09/22/2023 2:30 PM EDT Office Visit Hematology/Oncology at [address] [phone] Cody Frazier MD [facility] DR HEMATOLOGY [place] [address] documented as of this encounter Procedures Procedure Name Priority Date/Time Associated Diagnosis Comments ECG SCAN Routine 04/17/2023 7:12 PM EST documented in this encounter Results * Scan Doc: ECG (04/17/2023 7:12 PM EST) Historical Provider MD BUI MGR SCAN EX T ORDR/RSLT documented in this encounter Visit Diagnoses Not on filedocumented in this encounter Care Teams Rotating Equipment Engineer Relationship Specialty Start Date End Date None None PCP - General 04/03/22 04/24/23 documented as of this encounter
--- OUTSIDE RECORDS SUMMARY | 2023-09-15 02:19 | XMS_ITS | Encounter Summary ---
Author Organization [facility] Address [facility] [place] [address] Care Team Providers Care Bottom Loader Name Role Phone None Primary Care Provider Unavailabl e Encounter Details Date Type Department Care Team (Late st Contact Info) Description 03/26/2023 Orders Only Hematology/Oncology at [address] [phone] Bea Grimes APRN [address] [place] [address] DR [place]Y [place] [address] Neoplasm related pain Social History [...] place to sleep or slept in a alf (including now)? 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
--- OUTSIDE RECORDS SUMMARY | 2023-09-15 02:19 | XMS_ITS | Encounter Summary ---
Author Organization [facility] Address [facility] [place] [address] Care Team Providers Care Flat Locker Name Role Phone None Primary Care Provider Unavailabl e Encounter Details Date Type Department Care Team (Late st Contact Info) Description 04/18/2023 Orders Only Hematology and Oncology at [facility] [place] [phone] Cody Frazier MD [facility] [address] [place] [address] Social History Tobacco Use Types Packs/Day Years [...] place to sleep or slept in a retirement (including now)? No 07/16/2021 Sex and Gender Information Value Date Recorded Sex Assigned at Not on file Gender Identity Not on file Sexual Orientation Not on file documented as of this encounter Plan of Treatment Upcoming Encounters Date Type Department Care Team (Late st Contact Info) Description 09/22/2023 2:30 PM EDT Office Visit Hematology/Oncology at [address] [phone] Cody Frazier MD [facility] [address] [place] [address] documented as of this encounter Visit Diagnoses Not on filedocumented in this encounter Care Teams Flat Locker Relationship Specialty Start Date End Date None None PCP - General 04/03/22 04/24/23 documented as of this encounter
--- OUTSIDE RECORDS SUMMARY | 2023-09-15 02:19 | XMS_ITS | Encounter Summary ---
Author Organization [facility] Address [facility] [place] [address] Care Team Providers Care Flexographic Press Operator Name Role Phone None Primary Care Provider Unavailabl e Encounter Details Date Type Department Care Team (Late st Contact Info) Description 04/17/2023 Ancillary Procedure Radiology Library at [facility] [place] [phone] Cody Frazier MD [facility] [place] [address] Social History Tobacco Use Types Packs/Day Years [...] PM EDT Office Visit Hematology/Oncology at [address] [phone] Cody Frazier MD [facility] DR HEMATOLOGY [place] [address] documented as of this encounter Procedures Procedure Name Priority Date/Time Associated Diagnosis Comments FILM LIBRARY STORAGE ONLY DX CHEST Routine 04/17/2023 12:00 AM EST documented in this encounter Results * Film Library- Storage Only DX Chest (04/17/2023 12:00 AM EST) Narrative HENNA - 04/23/2023 8:12 PM EDT This exam is auto-finalizing. It's purpose is for storage only. Cody Frazier MD IMG FILM LIBRARY ORD ERABLES [place]ENNA [place], [place] documented in this encounter Visit Diagnoses Not on filedocumented in this encounter Care Teams Flexographic Press Operator Relationship Specialty Start Date End Date None None PCP - General 04/03/22 04/24/23 documented as of this encounter
--- OUTSIDE RECORDS SUMMARY | 2023-09-15 02:19 | XMS_ITS | Encounter Summary ---
Author Organization [facility] [place] [address] Care Team Providers Care Pressure Tank Operator Name Role Phone Nikki Hermosillo IGNACIA Primary Care Provider [phone] Reason for Visit * Auth/Cert (Routine) Specialty Diagnoses / Procedures Referred By Kristan t Referred To Contact Diagnoses NSTEMI (non-ST elevated myocardial infarction) NSTEMI Procedures ER Vazquez Valentin MD [facility] [place] [address] [facility] Referral ID Status Reason Start Date Expiration Date Visits Re quested Visits Authorized [id number] 1 1 Encounter Details Date Type Department Care Team (Late st Contact Info) Description 04/25/2023 4:25 PM EDT - 04/25/2023 5:25 PM EDT Surgery [place] [address] Ivone Hargrove MD [address] [place] [id number] CARDIAC CATHETERIZATION Social History Tobacco Use Types Packs/Day Years Used Date Smoking Tobacco: Some Days Cigarettes 0.3 42.6 Started: 1981 Smokeless Tobacco: Never Comments:10 per day- rarely Alcohol Use Standard Drinks/Week Comments Yes 1 (1 standard drink = 0.6 oz pur e alcohol) recently not as often [facility] Utilities Answer Date Recorded In the past [...] in a care home (including now)? No 04/25/2023 DH IPV [...] Sign Reading Time Taken Comments Blood Pressure 106/72 04/25/2023 4:20 PM EDT Pulse 70 04/25/2023 4:20 PM EDT Temperature 36.7 ??C (98 ??F) 04/25/2023 4:20 PM EDT Respiratory Rate 18 04/25/2023 4:20 PM EDT Oxygen Saturation 96% 04/25/2023 4:20 PM EDT Inhaled Oxygen Concentration - - Weight 65.5 kg (144 lb 8 oz) 04/25/2023 3:40 AM EDT Height 180.3 cm (5' 11) 04/23/2023 9:20 PM EDT Body Mass Index 20.29 04/23/2023 9:20 PM EDT documented in this encounter Discharge Summaries * Farideh Machado MD - 04/26/2023 8:14 AM EDT Images from the original note were not included. Discharge Summary Patient Name: Alexis Pelayo Patient Age: 52 y.o. Language: Italian Race: White Ethnicity: Not nor Admit date: 04/23/2023 Discharge date: 04/26/23 Attending Physician: Farideh Machado MD Discharge Physician: Farideh Machado MD Follow-up Recommendations for Providers: Mr. Pelayo is a 52M with Hx of COPD, metastatic NSCLC, COPD who presented to [facility] initially with COPD exacerbation complicated by acute hypercapnic respiratory failure requiring intubation and NSTEMIwith findings of newly reduced LVEF of <20% transferred to [facility] 04/[place] for ischemic evaluation andfurther management. Patient [...] Inpatient Provider Contact Information: Farideh Machado MD [phone] For questions regarding this document or issues relating to this hospitalization on the Medical Service, please contact your inpatient physician through the [facility] Tarring Machine Operator . Issues afterhours and on weekends will [...] Catheterization (Exam End: 04/25/2023 11:20 AM) Narrative [facility] Cardiac Catheterization/Intervention Report Patient Name: Aelxis Pelayo Procedure Date: 04/25/2023 A #: [id number] Primary Physician: Ivone Hargrove Case #: [id number] File Name: [id number] Catheterization Order Number: [id number] [facility] Final Report [place], [place] Patient Name: Alexis Pelayo ID#: [id number] : 1970 Procedure Date: April 25, 2023 [...] was designated as ASA Class III. The [facility] clinical frailty scale is 3: Managing Well. Diagnostic Tests: Prior Coronary Angiography: LV ejection fraction within 6 months is 20%. Electrocardiography: EKG was assessed by ECG. EKG was Abnormal. EKG showed other abnormality. Indications for Diagnostic Cath: The priority of the diagnostic procedure was Urgent. The indication for the cathead operator visit is cardiomyopathy and LV dysfunction. Chest [...] COPD, metastatic NSCLC, COPD who presented to [facility] initially with COPD exacerbation complicated by acute hypercapnic respiratory failure requiring intubation and NSTEMI with findings of newly reduced LVEF of <20% now transferred to [facility] for ischemic evaluation and management. Mr. Pelayo [...] breath, worse than prior and presented to [facility]. At [facility] he was noted to be in hypercapnic [...] intubation. He was extubated 04/17. Cardiology at [facility] recommended transfer to [facility] for further ischemic evaluation and patient was accepted. At time of interview Mr. Pelayo states he feels well without chest pain, significant shortness of breath or discomfort. Hospital Course: Mr. Pelayo is a 52M with Hx of COPD, metastatic NSCLC, COPD who presented to [facility] initially with COPD exacerbation complicated by acute hypercapnic respiratory failure requiring intubation and NSTEMIwith findings of newly reduced LVEF of <20% transferred to [facility] 04/22 for ischemic evaluation andfurther management. Patient [...] was attributed to cardiogenic, pt stable at [facility] with no clinical signs of shock. No [...] Follows with Dr. Frazier (Oncologist) here at [facility]. -Continued home PO dilaudid 4mg q8h -Continued home PO morphine CR 100mg q8h -Continued Pregabalin 50mg BID -Continued home dronabinol 10mg BID -Compazine PRN for nausea -Miralax PRN and senna QD started give chronic opioid use Vital Signs at Discharge: BP: 125/86, Heart Rate: 84, Temp: 36.7 ??C (98.1 ??F), Resp: 18, BMI (Calculated): 20.33 Height: 180.3 cm (5' 11) (04/23/232119) Weight: 66 kg (145 lb 8 oz) (04/26/2326) Functional and Cognitive Status: awake, alert, oriented x4. Ambulating well with no assistance Important Studies and Lab Data: Labs: Last 3 wbc, hgb, hct plt Recent Labs 04/25/2333604/24/2342809/02/22 1319 WBC 9.9* 12.0* 13.74* HGB 11.6* 11.4* 13.1* HCT 35.1* 35.5* 40.7 PLATELET 517* 589* 580* Last 3 Lytes Recent Labs 04/26/23 0030 04/25/2333604/24/23428 NA 140 139 138 K 4.3 4.3 [...] Discharge: Patient Instructions You were transferred to [facility] because an ultrasound of your heart also [...] appointments: During 8am-5pm Friday through Friday call [phone] to speak with a nurse in the cardiology clinic All other times call [phone] and ask to speak to the cardiovascular hospitalist front loader residential driver. Return to work: One week Driving: No driving for 48 hours after catheterization. Follow up Appointments: PCP Nikki Hermosillo APRN [phone] April 30, 2023 at 1:30 pm Cardiology at [facility] Dr. Bautista May 18 at 11:20 am Home oxygen therapy: N/A Arrangements for VNA/home care: none General Instructions None Future Appointments and Orders Future Appointments and Orders Future Appointments Provider Department Dept Phone 05/12/2023 1:00 PM Bea Grimes APRN; Cody Frazier MD Hematology/Oncology at [facility] Arrive at: [facility] door at end of hallway [phone] 06/02/2023 1:30 PM Cody Frazier MD Hematology/Oncology at [facility] Arrive at: [facility] door at end of hallway [phone] 06/02/2023 2:[address] INFUSION, ROOM Hematology Oncology at [facility] Arrive at: [facility] door at end of hallway [phone] Future Orders Complete By Expires Basic Metabolic Panel (non-fasting) [LAB15 Custom] 05/03/2023 11/02/2023 Process Instructions: Scheduling Instructions: Comments: Questions: Hemogram [[id number] Custom] 05/03/2023 11/02/2023 Process Instructions: Scheduling Instructions: Comments: Questions: Magnesium [RYC037 Custom] 05/03/2023 11/02/2023 Process Instructions: Scheduling Instructions: Comments: Questions: Phosphorus [HET538 Custom] 05/03/2023 11/02/2023 Process Instructions: Scheduling Instructions: Comments: Questions: Referral to Cardiology [REF12 Custom] As directed Process Instructions: If no progress note charted, please enter Clinical details in comments. Scheduling Instructions: Questions: My question or request is: HFrEF, likely takotsubo Discharge References/Attachments None Greater than 30 minutes was spent on this discharge including documentation, [id number] time withthe patient, patient education, grade recorder, coordination with pharmacy and other patient care. documented in this encounter Discharge Instructions * Patient Instructions* Farideh Machado MD - 04/25/2023 8:00 AM EDT You were transferred to [facility] because an ultrasound of your heart also [...] appointments: During 8am-5pm Friday through Friday call [phone] to speak with a nurse in the cardiology clinic All other times call [phone] and ask to speak to the cardiovascular hospitalist front loader residential driver. Return to work: One week Driving: No driving for 48 hours after catheterization. Follow up Appointments: PCP Nikki Hermosillo, IGNACIA [phone] April 30, 2023 at 1:30 pm Cardiology at [facility] Dr. Bautista May 18 at 11:20 am [...] to home Office of Care Management Float/Weekend Hand Buffer SINGH Chacon Pager [phone] * Farideh Machado MD - 04/25/2023 12:05 PM EDT CV HOSPITALIST 1 - [facility] DAILY PROGRESS NOTE Page [phone] to reach a provider 02/09 Admit Date: [...] Infusions: sodium chloride 0.9% 75 mL/hr (04/25/23 5157) heparin (porcine) infusion 1,200 Units/hr (04/25/23 2650) PRN Meds:.polyethylene glycoL (MIRALAX) oral powder, sodium [...] and oriented, no-focal deficits Labs: Recent Labs 04/25/2333604/24/23 0429 WBC 9.9* 12.0* HGB 11.6* 11.4* HCT 35.1* 35.5* PLATELET 517* 589* MCV 92.6 94.9* Recent Labs 03/33604/24/23428 NA 139 138 CL 101 98 CO2 [...] the past 24 hour(s)). TTE at OSH ([facility]) TTE performed showed newly reduced LVEF of <20% with WMAs superimposed on global hypokinesis. Assessment: Mr. Pelayo is a 52M with Hx of COPD, metastatic NSCLC, COPD who presented to [facility] initially with COPD exacerbation complicated by acute hypercapnic respiratory failure requiring intubation and NSTEMIwith findings of newly reduced LVEF of <20% now transferred to [facility] for ischemic evaluation and m anagement. Pt clinically euvolemic, stable for [facility] today which showed non-obstructive disease and LVEDP [...] was attributed to cardiogenic, pt stable at [facility] with no clinical signs of shock. No [...] Follows with Dr. Frazier (Oncologist) here at [facility]. -Continue home PO dilaudid 4mg q8h -Continue home PO morphine CR 100mg q8h -Continue Pregabalin 50mg BID -Continue home dronabinol 10mg BID -Compazine PRN for nausea -Miralax PRN and senna QD started Diet: Cardiac diet DVT Prophylaxis: None Code status: Do NOT Attempt CPR - Inpatient Disposition: Discharge Location: AM-PAC Basic Mobility Raw Score: 24 PT: OT: PCP Nikki Hermosillo, VOICE OVER ARTIST [phone] Farideh Machado MD 04/25/2023 * Lloyd Deluca DO - 04/24/2023 10:17 AM EDT CV HOSPITALIST 1 - [facility] DAILY PROGRESS NOTE Page [phone] to reach a provider 02/09 Admit Date: 04/23/2023 Encounter Date April 24, 2023 Anticipated Discharge Date: 04/26/2023 Hospital Day: 1 Active Hospital Problems Diagnosis NSTEMI (non-ST elevated myocardial infarction) Resolved Hospital Problems No resolved problems to display. 24 Hour Events/Subjective: Admit to cardiology Pt doing well today, denies CP, SOB, f/c, chest pressure, dizziness Ready for [facility] with no concerns at this time- on schedule for 4pm Medications: Scheduled Meds: ipratropium-albuteroL 3 mL Nebulization BID senna-docusate 1 tablet Oral Daily sodium chloride 0.9 % (flush) 5 mL Intravenous BID droNABinol 10 mg Oral BID AC budesonide-formoteroL 2 Inhalation Inhalation BID HYDROmorphone 4 mg Oral Q8H LATHEA morphine CR 100 mg Oral Q8H ALTHEA [...] 47 LDLCHOL 73 CHOLHDL 2.9 Recent Labs 04/24/23428 GLUCOSE 99 EKG: Normal sinus rhythm T wave abnormality, consider anterolateral ischemia Telemetry: I have personally reviewed and interpreted the telemetry from the last 24 hours. Resultsshow NSR HR 75-88. Imaging: No results found for this visit on 04/23/23 (from the past 24 hour(s)). TTE at [facility]SH ([facility]) TTE performed showed newly reduced LVEF of <20% with WMAs superimposed on global hypokinesis. Assessment: Mr. Pelayo is a 52M with Hx of COPD, metastatic NSCLC, COPD who presented to [facility] initially with COPD exacerbation complicated by acute hypercapnic respiratory failure requiring intubation and NSTEMIwith findings of newly reduced LVEF of <20% now transferred to [facility] for ischemic evaluation and m anagement. Pt clinically euvolemic, stable for [facility] today. Plan: #New CM w/ LVEF [...] was attributed to cardiogenic, pt stable at [facility] with no clinical signs of shock. No [...] -Consider initiation of optimization of GDMT after LHC #Severe COPD exacerbation, resolved #Recent Hypercapnic respiratory [...] Follows with Dr. Frazier (Oncologist) here at [facility]. -Continue home PO dilaudid 4mg q8h -Continue [...] EDT Cardiology Admission H&P Patient Name: Alexis KILLIANN: [id number] Date of : 1970 Age: 52 y.o. Hospital Admit Date: 04/23/2023 Inpatient Attending: Afshin Espitia MD PCP: None Presenting Diagnosis/Chief Complaint: Shortness of Breath Active Problem List: Active Hospital Problems Diagnosis NSTEMI (non-ST elevated myocardial infarction) Resolved Hospital Problems No resolved problems to display. History of Present Illness: Mr. Pelayo is a 52M with Hx of COPD, metastatic NSCLC, COPD who presented to [facility] initially with COPD exacerbation complicated by acute hypercapnic respiratory failure requiring intubation and NSTEMIwith findings of newly reduced LVEF of <20% now transferred to [facility] for ischemic evaluation and m anagement. Mr. [...] breath, worse than prior and presented to [facility]. At [facility] he was noted to be in hypercapnic [...] intubation. He was extubated 04/17. Cardiology at [facility] recommended transfer to [facility] for further ischemic evaluation and patient was [...] CT Guided Biopsy Lung Jose Cota MD [facility] RAD CT SCAN IR ALL BIOPSY PROCEDURES 06/27/2021 IR All Biopsy Procedures 06/27/2021 Buddy Dick MD [facility] INTERVENTIONL RAD Significant Family History: Family History Problem Relation Age of Onset Breast Cancer Mother Alzheimer Disease Father Social History: Social History Socioeconomic History Marital status: Single Spouse name: Not on file Number of children: Not on file Years of education: Not on file Highest education level: Not on file Occupational History 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 #New [...] Follows with Dr. Frazier (Oncologist) here at [facility]. -Continue home PO dilaudid 4mg q8h -Continue home PO morphine CR 100mg q8h -Continue Pregabalin 50mg BID -Continue home dronabinol 10mg BID -FYI Oncology of admission -Compazine PRN for nausea Provider: Vazquez Lan MD Diet: NPO for [facility] VTE ppx: Heparin gtt Code Status: Deferred [...] Contact information for follow-up Angela Bautista MD [facility] [address] [place] [address] [facility] [address] Nikki Hermosillo, VOICE OVER ARTIST Relationship: PCP - General [facility] [address] [facility] [address] Transportation: taxi voucher family or friend will [...] in agreement with plan. Low ZAMBRANO, RN-CM Child Welfare Social Worker- Medicine Office of Care Management Ext: [phone] Pager: [phone] * Plan of Care - Nicholas Santana [...] SUMMARY: Pt remains A/Ox4, VSS. Ambulating ad jna in room. D/C orders in by MD. Pt's preferred pharmacy unable to prepare meds in time for d/c, orders sent to [facility] for pickup. Ride organized by care management. [...] Insurance: N/A Prescription Coverage: Yes Preferred Pharmacy: [id number] - [place], [place] - [address] [facility] [address] [place] [id number] Advance Care Planning: Do NOT Attempt CPR - Inpatient <no information> -Advanced Directive: No, declines (sister is SDM) Current Functional Ability: Independent Functional Status Prior to Admission: Independent Home Environment: Others in the home: sibling(s). Current Living Arrangements: home/apartment/condo. Accessibility Concerns:3rd floor apartment; several flights of stairs to enter; no home accessibility concerns noted. Current DME: none [address] [facility] [address] Social & Family Supports: All names listed [...] private vehicle when medically ready. Registered Nurse Administrative Asst / Hand Buffer will continue to follow patient???s progress and remain available if situation changes for coordination of care, psychosocial support and/or discharge planning. Office of Care Management * Plan of Care - Farideh Machado MD - 04/25/2023 2:19 PM EDT Post Cardiac cath note Alexis Pelayo [id number] 1970 52 y.o. male Last value Range [...] PCP: Nikki Hermosillo APRN PCP phone #: [phone] ID/Chief Complaint: Mr. Pelayo is a 52 year old gentleman with metastatic NSCLC and COPD who presented to [facility] for acute hypercapnic and hypoxic respiratory failure requiring intubation and NSTEMI with new LVEF of <20% transferred to [facility] for ischemic evaluation. Coronary angiogram today did [...] one week ago prompting a presentation to [facility] where he was treated as a COPD [...] feels much better. He reports that at [facility] he had copious amounts of sputum suctioned [...] exam. No deficits. Laboratory: CBC: Recent Labs 04/25/23 0337 04/24/23 0429 09/02/22 1319 WBC 9.9* 12.0* 13.74* HGB 11.6* 11.4* 13.1* PLATELET 517* 589* 580* Chemistry: Recent Labs 04/25/23 0337 04/24/23 0429 09/02/22 1319 NA 139 138 131* K 4.3 3.6 3.7 CL 101 98 93* CO2 30 32* -- BUN 12 14 9 CREATININE 0.74* 0.81 1.2 GLUCOSE 106 99 147* Recent Labs 04/25/23 0337 04/24/23 0429 09/02/22 1319 CALCIUM 8.9 8.8 9.4 MAGNESIUM 0.84 [...] continue to follow along. Mikhail Marina MD Supervisor Metalizing I was the attending physician available for supervision at the time of this visit. While I did not see the patient, I did review the chart and discussed the plan of management as documented above. Román Bynum MD [facility] Staff Restaurant Server * Brief Op Note - Ivone Hargrove MD - 04/25/2023 11:24 AM EDT Brief Operative Note Patient Name: Alexis Pelayo : [id number] MR#: [id number] Case Date: 04/25/2023 Surgeon: Surgeon(s) and Role: * Ivone Hargrove MD - Primary * Franck Salomon PA - Physician Metal Loader Preoperative diagnosis: NSTEMI Postoperative diagnosis: Nonobstructive coronary [...] This shift he was NPO for a C. He has aR radial site. No hematoma [...] and for him to go to the cathead operator. [facility] GOAL OUTCOME EVALUATION: Problem: Adult Inpatient [...] Outcome: Ongoing (Interventions Implemented as Appropriate) Irma ZAMBRANO, RN * Plan of Care - Lloyd [...] further details. Lloyd Deluca DO 04/24/2023 Pager [phone] documented in this encounter Plan of Treatment Upcoming Encounters Date Type Department Care Team (Late st Contact Info) Description 09/22/2023 2:30 PM EDT Office Visit Hematology/Oncology at [address] [address] Cody Frazier MD [facility] [address] [place] [address] Scheduled Orders Name Type Priority Associated Diagnoses [...] 12:30 AM EDT HIV SCREEN, 4TH GENERATION ([facility]/CGP/APD/NLH) Routine 04/26/2023 12:30 AM EDT HEPATITIS B SURFACE ANTIBODY Routine 04/26/2023 12:30 AM EDT HEPATITIS B SURFACE ANTIGEN Routine 04/26/2023 12:30 AM EDT CMV ANTIBODY, IGG Routine 04/26/2023 12: 30 AM EDT RHEUMATOID FACTOR, QUANT Routine 04/26/2023 12:30 AM EDT HC DNA AB DS (AUGUSTINE) Routine 04/26/2023 12:30 AM EDT TSH Routine [...] 04/24/2023 4:29 AM EDT TYPE AND SCREEN ([facility]/CGP/[facility]WARDO) Routine 04/24/2023 4:29 AM EDT MAGNESIUM Routine [...] EDT) Magnesium 0.85 0.69 - 1.07 mmol/L [facility] Blood 04/26/2023 12:3 0 AM EDT 04/26/2023 1:12 AM EDT Narrative Resulting Agency Comment Spec In Lab Lloyd Deluca V, CHEMISTRY ORDERABLE S [facility] [place] [address] * Basic Metabolic Panel (non-fasting) (04/26/2023 12:30 AM EDT) Glucose 106 65 - 199 mg/dL [facility] Comment:Diabetes: >=200 mg/d L plus symptoms Blood Urea Nitrogen 13 10 - 20 mg/dL [facility] Creatinine 0.90 0.80 - 1.50 mg/dL [facility] Sodium 140 135 - 145 mmol/L [facility] Potassium 4.3 3.5 - 5.0 mmol/L [facility] Comment: Please note: ??Patients with WBC >100,000 may have falsely elevated Potassium levels. ??For accurate Potassium quantification in these patients send serum separator tube (gold top) for subsequent determinations. ??Contact the Clinical Chemistry Laboratory if there are any questions. Chloride 98 98 - 107 mmol/L [facility] Carbon Dioxide Not Perf 22 - 31 [facility] Comment:Add-on request. Samp le too old to perform test. Anion Gap Unable to Calculate 5 - 15 mmol/L [facility] Calcium 9.2 8.5 - 10.5 mg/dL [facility] Est Glomerular Filtration Rate 103 >=60 mL/min/1 .73 m?? [facility] Comment: This patient's estimated GFR was [...] Resulting Agency Comment Spec In Lab Lloyd Deluca V, CHEMISTRY ORDERABLE S Performing Organization Address [facility] [place] [address] * CMV Antibody, IgM (04/26/2023 12:30 AM EDT) CMV IgM Negative Negative [facility] Blood 04/26/2023 12:3 0 AM EDT 04/28/2023 7:19 AM EDT Narrative Resulting Agency Comment Spec In Lab Farideh Machado MD IMMUNOLOGY ORDERAB LES Performing Organization Address [facility] [place] [address] * CMV Antibody, IgG (04/26/2023 12:30 AM EDT) CMV IgG Negative Negative [facility] Blood 04/26/2023 12:3 0 AM EDT 04/28/2023 7:19 AM EDT Narrative Resulting Agency Comment Spec In Lab Farideh Machado MD IMMUNOLOGY ORDERAB LES Performing Organization Address [facility] Co de Phone Number [facility] [place] [address] * (ABNORMAL) Parvovirus B19 Antibody IgG and IgM (04/26/2023 12:30 AM EDT) Parvo B19 Igg (MAY) Positive(A) Negative [facility] Comment: Test Performed by: [facility] - [address] [address] Optometrist President/Practice Owner: Greg Rudoplh M.D. Ph.D.; CLIA# [id number] Parvo B19 IgM (JUNE) Negative Negative [facility] Comment: Test Performed by: [facility] [place] [address] Optometrist President/Practice Owner: Greg Rudolph M.D. Ph.D.; CLIA# [id number] Parvo B19 Intrp (JUNE) SEE COMMENT [facility] Comment: RESULT: Results suggest past infection. ADDITIONAL INFORMATION This test has been modified from the adult family home program manager's instructions. Its performance characteristics were determined by [facility] in a manner consistent with CLIA requirements. This test has not been cleared or approved by the U.S. Food and Drug Administration. Test Performed by: [facility] - [address] [address] Optometrist President/Practice Owner: Greg Rudolph M.D. Ph.D.; CLIA# [id number] Blood 04/26/2023 12:3 0 AM EDT 04/28/2023 9:01 AM EDT Narrative Resulting Agency Comment Spec In Lab Farideh Machado MD LAB SEND OUT ORDER ENOC Performing Organization Address City/[facility] Co de Phone Number [facility] [place] [address] * Lyme IgG & IgM Antibody (04/26/2023 12:30 AM EDT) Lyme Antibody Negative Negative [facility] Lyme Ab Comment Negative result does not exclude possibility of infection. [facility] Comment: Please note that as of 06/18/2022 that this testing is performed by the [facility] [place] [facility] This change in testing location is associated with a change in testing methodology. Blood 04/26/2023 12:3 0 AM EDT 04/28/2023 7:19 AM EDT Narrative Resulting Agency Comment Spec In Lab Farideh Machado MD IMMUNOLOGY ORDERAB LES Performing Organization Address City/[facility]/ZIP Co de Phone Number [facility] [place] [address] * HSV 1 and 2 IgG Antibodies (04/26/2023 12:30 AM EDT) HSV Type 1 Ab, IgG Negative Negative [facility] HSV Type 2 Ab, IgG Negative Negative [facility] Blood 04/26/2023 12:3 0 AM EDT 04/28/2023 7:19 AM EDT Narrative Resulting Agency Comment Spec In Lab Farideh Machado MD IMMUNOLOGY ORDERAB LES Performing Organization Address [facility] Co de Phone Number [facility] [place] [address] * HIV Screen, 4th Generation ([facility]CGP/APD/NLH) (04/26/2023 12:30 AM EDT) HIV Ab/Ag Screen Negative Negative [facility] Comment: This 4th Generation HIV test [...] HIV Comment Low Risk of HIV Infection [facility] Blood 04/26/2023 12:3 0 AM EDT 04/26/2023 1:01 AM EDT Narrative Resulting Agency Comment Spec In Lab Farideh Machado MD CHEMISTRY ORDERABL ES Performing Organization Address [facility] Co de Phone Number [facility] [place] [address] * Hepatitis C Antibody (04/26/2023 12:30 AM EDT) Hepatitis C Antibody Negative Negative [facility] Blood 04/26/2023 12:3 0 AM EDT 04/26/2023 1:01 AM EDT Narrative Resulting Agency Comment Spec In Lab Farideh Machado MD CHEMISTRY ORDERABL ES Performing Organization Address City/[facility] Co de Phone Number [facility] [place] [address] * Hepatitis B Core Antibody, Total (04/26/2023 12:30 AM EDT) Hepatitis B Core Antibody Negative Negative [facility] Blood 04/26/2023 12:3 0 AM EDT 04/26/2023 1:01 AM EDT Narrative Resulting Agency Comment Spec In Lab Farideh Machado MD CHEMISTRY ORDERABL ES Performing Organization Address [facility] Co de Phone Number [facility] [place] [address] * Hepatitis B Surface Antibody (04/26/2023 12:30 AM EDT) Hepatitis B Surface Antibody, Quantitative <3.5 IU/L [facility] Comment: HepB Surface Ab Quant: Unvaccinated: < 8.5 IU/L Vaccinated: >= 11.5 IU/L Hepatitis B Surface Antibody Negative [facility] Comment: Patient is presumed to be not vaccinated or immune to HBV infection. Expected Results: Vaccinated: Positive Unvaccinated: Negative Blood 04/26/2023 12:3 0 AM EDT 04/26/2023 1:01 AM EDT Narrative Resulting Agency Comment Spec In Lab Farideh Machado MD CHEMISTRY ORDERABL ES Performing Organization Address [facility] Co de Phone Number [facility] [place] [address] * Hepatitis B Surface Antigen (04/26/2023 12:30 AM EDT) Hepatitis B Surface Antigen Negative Negative [facility] Blood 04/26/2023 12:3 0 AM EDT 04/26/2023 1:01 AM EDT Narrative Resulting Agency Comment Spec In Lab Farideh Machado MD CHEMISTRY ORDERABL ES Performing Organization Address [facility] Co de Phone Number [facility] [place] [address] * Hepatitis A Antibody, Total (04/26/2023 12:30 AM EDT) Hepatitis A ANTIBODY, TOTAL Negative Negative [facility] Blood 04/26/2023 12:3 0 AM EDT 04/26/2023 1:01 AM EDT Narrative Resulting Agency Comment Spec In Lab Farideh Machado MD CHEMISTRY ORDERABL ES Performing Organization Address [facility] Co de Phone Number [facility] [place] [address] * (ABNORMAL) Free Light Chains, Serum (04/26/2023 12:30 AM EDT) Laurier Free Light Chain 2.38 0.72 - 2.75 mg/dL [facility] Lambda Free Light Chain 2.69(H) 0.57 - 2.15 mg/dL [facility] Laurier/Lambda FLC Ratio 0.8848 0.4000 - 2.5800 [facility] Blood 04/26/2023 12:3 0 AM EDT 04/26/2023 1:01 AM EDT Narrative Resulting Agency Comment Spec In Lab Farideh Machado MD CHEMISTRY ORDERABL ES Performing Organization Address [facility] Co de Phone Number [facility] [place] [address] * (ABNORMAL) Protein Electrophoresis, serum (04/26/2023 12:30 AM EDT) Total Prot Electrophoresis 6.0(L) 6.1 - 8.0 g/dL [facility] Albumin Electrophoresis 3.80 3.20 - 5.20 g/dL [facility] Alpha 1 Globulin 0.18 0.10 - 0.30 g/dL [facility] Alpha 2 Globulin 0.62 0.40 - 0.90 g/dL [facility] Beta Globulin 0.65 0.50 - 1.00 g/dL [facility] Gamma Globulin 0.74 0.50 - 1.30 g/dL [facility] M1 Band None Detected None Detected [facility] Blood 04/26/2023 12:3 0 AM EDT 04/26/2023 1:01 AM EDT Narrative Resulting Agency Comment Spec In Lab Farideh Machado MD CHEMISTRY ORDERABL ES [facility] [place] [address] * Rheumatoid factor, quant (04/26/2023 12:30 AM EDT) Rheumatoid Factor <10 <=14 IU/mL [facility] Blood 04/26/2023 12:3 0 AM EDT 04/26/2023 1:01 AM EDT Narrative Resulting Agency Comment Spec In Lab Farideh Machado MD CHEMISTRY ORDERABL ES Performing Organization Address City/[facility] Co de Phone Number [facility] [place] [address] * VON Antibody Screen (04/26/2023 12:30 AM EDT) VON Ab Screen Negative Negative [facility] Comment: This antinuclear antibody (VON) screen is a qualitative test performed using a fluoroenzyme immunoassay on the VIDTEQ Indiadia 250 analyzer. This screen is designed to [...] performed by the [facility] Laboratory at [facility] This change in testing location is associated with a change is testing method and reference intervals. Please review the results of this test in association with the posted reference intervals. dsDNA Ab 1.8 <=15.0 IU/mL [facility] Comment: <10 negative 10-15 [...] performed by the Special Chemistry Laboratory at [facility]. This change in testing location is associated with a change is testing method and reference intervals. Please review the results of this test in association with the posted reference intervals. Blood 04/26/2023 12:3 0 AM EDT 04/28/2023 7:19 AM EDT Narrative Resulting Agency Comment Spec In Lab Farideh Machado MD LAB SEND OUT ORDER ENOC Performing Organization Address City/[facility]/ZIP Co de Phone Number [facility] [place] [address] * (ABNORMAL) Vitamin D, 25-Hydroxy (04/26/2023 12:30 AM EDT) Vitamin D Total 25 OH <6(L) 21 - 100 ng/mL [facility] Vit D Interp Deficient [facility] Blood 04/26/2023 12:3 0 AM EDT 04/26/2023 1:01 AM EDT Narrative Resulting Agency Comment Spec In Lab Farideh Machado MD CHEMISTRY ORDERABL ES Performing Organization Address [facility] Co de Phone Number [facility] [place] [address] * (ABNORMAL) Iron and TIBC (04/26/2023 12:30 AM EDT) Iron 83 45 - 160 mcg/dL [facility] TIBC 245(L) 250 - 450 mcg/dL [facility] Iron Saturation 34 20 - 50 % [facility] Blood 04/26/2023 12:3 0 AM EDT 04/26/2023 1:01 AM EDT Narrative Resulting Agency Comment Spec In Lab Farideh Machado MD CHEMISTRY ORDERABL ES Performing Organization Address City/[facility]/ZIP Co de Phone Number [facility] [place] [address] * Ferritin (04/26/2023 12:30 AM EDT) Ferritin 341 31 - 409 ng/mL [facility] Comment: Please note that as of 01/15/2023, the reference intervals for Ferritin have been updated. Blood 04/26/2023 12:3 0 AM EDT 04/26/2023 1:01 AM EDT Narrative Resulting Agency Comment Spec In Lab Farideh Machado MD CHEMISTRY ORDERABL ES [facility] [place] [address] * Folate, serum (04/26/2023 12:30 AM EDT) Folate 11.3 4.8 - 24.2 ng/mL [facility] Blood 04/26/2023 12:3 0 AM EDT 04/26/2023 1:01 AM EDT Narrative Resulting Agency Comment Spec In Lab Farideh Machado MD CHEMISTRY ORDERABL ES Performing Organization Address City/[facility]/ZIP Co de Phone Number [facility] [place] [address] * Vitamin B12 (04/26/2023 12:30 AM EDT) Vitamin B12 539 232 - 1,245 pg/mL [facility] Blood 04/26/2023 12:3 0 AM EDT 04/26/2023 1:01 AM EDT Narrative Resulting Agency Comment Spec In Lab Farideh Machado MD CHEMISTRY ORDERABL ES Performing Organization Address City/[facility]/ZIP Co de Phone Number [facility] [place] [address] * TSH (04/26/2023 12:30 AM EDT) Thyroid Stimulating Hormone 1.99 0.27 - 4.20 mcIU/mL [facility] Comment: Reference Interval (mcIU/mL): Females: ??First Trimester: 0.23-3.88 ??Second Trimester: 0.22-3.90 ??Third Trimester: 0.44-4.66 Blood 04/26/2023 12:3 0 AM EDT 04/26/2023 1:01 AM EDT Narrative Resulting Agency Comment Spec In Lab Farideh Machado MD CHEMISTRY ORDERABL ES Performing Organization Address [facility] [place] [address] * Protein Electrophoresis, urine, random (04/25/2023 6:30 PM EDT) Protein, Urine <6 0 - 12 mg/dL [facility] U Albumin Not Perf [facility] Globulin, Urine Not Perf [facility] M1 Band, Urine Not Perf [facility] UPEP Comments See Note [facility] Comment: Total Protein concentration too low to fractionate using current electrophoretic technique. Urine 04/25/2023 6:30 PM EDT 04/25/2023 6:36 PM EDT Narrative Resulting Agency Comment Spec In Lab Farideh Machado MD URINE ORDERABLES Performing Organization Address [facility] [place] [address] * CARDIAC CATHETERIZATION (04/25/2023 11:20 AM EDT) Anatomical Region Laterality Modality Other Narrative 04/25/2023 10:24 PM EDT ?[facility] ? Cardiac Catheterization/Intervention Report ? Patient Name: Alexis Pelayo. ? Procedure Date: 04/25/2023 ? A #: [id number] ? Primary Physician: El Meligy, Amr ? Case #: [id number] ? File Name: [id number] ? Catheterization Order Number: [id number] ? [facility] ? Final Report [place], [place] ? Patient Name: ? Alexis J. Pierce ? ID#: ?[id number] ? : ?1970 ? Procedure Date: ? April 25, 2023 ? Case #: ? [id number] ? Room: ? 2 ? Case Physician: ? Amr Juanito Burris M.D. ?Start: ?11:02 ? Admission: ??04/23/2023 ? Referring [...] procedure was Urgent. The indication for ?the cathead operator visit is cardiomyopathy and LV dysfunction. Chest [...] coronary angiography and left heart ?catheterization. ? Amr Juanito Burris M.D. ? Report Finalized: 04/25/2023 ??22:14 ? Report Last Ammended: 04/25/2023 ??22:21 ? Procedure Note Ivone Hargrove, MD - 04/25/2023 [facility] Cardiac Catheterization/Intervention Report Patient Name: Alexis Pelayo Procedure Date: 04/25/2023 A #: [id number] Primary Physician: Ivone Hargrove Case #: [id number] File Name: [id number] Catheterization Order Number: [id number] [facility] FinalReport [place], [place] Patient Name: Alexis Pelayo ID#:[id number] :1970 Procedure Date: April 25, 2023 Case [...] was designated as ASA Class III. The [facility] clinicalfrailty scale is 3: Managing Well. Diagnostic Tests: Prior Coronary Angiography: LV ejection fraction within 6 months is 20%. Electrocardiography: EKG was assessed by ECG. EKG was Abnormal. EKG showed other abnormality. Indications for Diagnostic Cath: The priority of the diagnostic procedure was Urgent. The indicationfor the cathead operator visit is cardiomyopathy and LV dysfunction. Chest [...] was present for the entire procedure. Dr. Amr El Meligy, M.D. was present during the moderate sedation intraservice time as documented by the sedation nurse. Case time =00:12. Dr. Ivone Burris M.D. performed the coronary angiography and leftheart catheterization. Ivone Burris M.D. Report Finalized: 04/25/2023 22:14 Report Last Ammended: 04/25/2023 22:21 Ivone Burris MD CARDIAC CATH ORDERAB LES * (ABNORMAL) Heparin (unfractionated) Level (04/25/2023 10:15 AM EDT) [facility] UF Heparin 1.62(Crit ical) IU/mL [facility] Comment: Critical Result called by ?? AUBREERSingh CRITICAL Results read back by: ? Buddy [...] Lab Vazquez Lan MD HEMATOLOGY ORDERABLE S [facility] [address] * (ABNORMAL) Differential, Automated (04/25/2023 3:37 AM EDT) [facility] Neutrophil % 58.0 % [facility] Neutrophil Absolute 5.74 1.70 - 6.10 x10(3)/mc L [facility] Lymph % 23.2 % [facility] Lymphocytes Abs 2.3 0.9 - 3.2 x10(3)/ L [facility] Monocyte % 10.2 % [facility] Monocyte Abs 1.0(H) 0.3 - 0.9 x10(3)/ L [facility] Eos % 4.3 % [facility] Eosinophils Abs 0.4 0.0 - 0.4 x10(3)/[facility] Basophil % 1.3 % [facility] Baso Absolute 0.1 0.0 - 0.1 x10(3)/ L [facility] Immature Gran % 3.00 % [facility] Comment: Immature granulocytes(IG's)percentage and absolute count will include metamyelocytes, myelocytes, and promyelocytes. Blood smears from CBCs yielding IG's will be scanned manually for concordance. If this scan disagrees with the automated IG or if promyelocytes are noted, a manual differential will be performed. Immature Gran Absolute 0.30(H) 0.00 - 0.04 x10(3)/ L [facility] Blood 04/25/2023 3:37 AM EDT 04/25/2023 3:49 AM EDT Narrative Resulting Agency Comment Spec In Lab Vazquez Lan MD HEMATOLOGY ORDERABLE S Performing Organization Address City/State/[facility] Co de Phone Number [facility] [place] [address] * (ABNORMAL) Hemogram (04/25/2023 3:37 AM EDT) White Blood Cell 9.9(H) 4.0 - 9.5 x10(3)/ L [facility] Red Blood Cell 3.79(L) 4.58 - 5.54 x10(6)/[facility] Hemoglobin 11.6(L) 13.7 - 16.5 g/dL [facility] Hematocrit 35.1(L) 40.5 - 48.5 % [facility] Mean Cell Volume 92.6 82.9 - 93.1 fL [facility] Mean Cell Hemoglobin 30.6 27.5 - 32.1 pg [facility] Mean Cell Hemoglobin Concentration 33.0 32.0 - 35.7 g/dL [facility] Platelet 517(H) 145 - 357 x10(3)/mc L [facility] RDW Standard Deviation 46.6(H) 36.0 - 45.0 fL [facility] RDW coefficient of variation 14.2(H) 11.4 - 13.8 % [facility] Mean Platelet Volume 9.6 7.6 - 12.9 fL [facility] NRBC% auto 0.0 % [facility] NRBC Absolute 0.000 0.000 - 0.000 x10(3)/mc L [facility] Blood 04/25/2023 3:37 AM EDT 04/25/2023 3:49 AM EDT Narrative Resulting Agency Comment Spec In Lab Vazquez Lan MD HEMATOLOGY ORDERABLE S Performing Organization Address [facility] Co de Phone Number [facility] [place] [address] * Magnesium (04/25/2023 3:37 AM EDT) Magnesium 0.84 0.69 - 1.07 mmol/L [facility] Blood 04/25/2023 3:37 AM EDT 04/25/2023 3:49 AM EDT Narrative Resulting Agency Comment Spec In Lab Vazquez Lan MD CHEMISTRY ORDERABLES Performing Organization Address [facility] Co de Phone Number [facility] [place] [address] * (ABNORMAL) Basic Metabolic Panel (non-fasting) (04/25/2023 3:37 AM EDT) Glucose 106 65 - 199 mg/dL [facility] Comment:Diabetes: >=200 mg/d L plus symptoms Blood Urea Nitrogen 12 10 - 20 mg/dL [facility] Creatinine 0.74(L) 0.80 - 1.50 mg/dL [facility] Sodium 139 135 - 145 mmol/L [facility] Potassium 4.3 3.5 - 5.0 mmol/L [facility] Comment: Please note: ??Patients with WBC >100,000 may have falsely elevated Potassium levels. ??For accurate Potassium quantification in these patients send serum separator tube (gold top) for subsequent determinations. ??Contact the Clinical Chemistry Laboratory if there are any questions. Chloride 101 98 - 107 mmol/L [facility] Carbon Dioxide 30 22 - 31 mmol/L [facility] Anion Gap 8 5 - 15 mmol/L [facility] Calcium 8.9 8.5 - 10.5 mg/dL [facility] Est Glomerular Filtration Rate 110 >=60 mL/min/1. 73 m?? [facility] Comment: This patient's estimated GFR was [...] Lan MD CHEMISTRY ORDERABLES Performing Organization Address City/State/[facility] Co de Phone Number [facility] [address] * Heparin (unfractionated) Level (04/25/2023 3:37 AM EDT) UF Heparin 0.29 IU/mL [facility] Comment: Heparin (anti-Xa) levels [...] MD HEMATOLOGY ORDERABLE S Performing Organization Address City/[facility]/ZIP Co de Phone Number [facility] [place] [address] * Heparin (unfractionated) Level (04/24/2023 8:30 PM EDT) UF Heparin 0.15 IU/mL [facility] Comment: Heparin (anti-Xa) levels [...] MD HEMATOLOGY ORDERABLE S Performing Organization Address City/[facility] Co de Phone Number [facility] [place] [address] * Heparin (unfractionated) Level (04/24/2023 1:15 PM EDT) UF Heparin 0.55 IU/mL [facility] Comment: Heparin (anti-Xa) levels [...] Lab Vazquez Lan MD HEMATOLOGY ORDERABLE S [facility] [place] [address] * EKG 12 Lead (04/24/2023 7:14 AM EDT) Ventricular rate 67 BPM MUSE SYSTEM Atrial Rate 67 BPM MUSE SYSTEM P-R Interval 142 ms MUSE SYSTEM QRS Duration 74 ms MUSE SYSTEM Q-T Interval 410 ms MUSE SYSTEM QTC Calculated (Bezet) 433 ms MUSE SYSTEM Calculated P [place] 66 degrees MUSE SYSTEM Calculated R [place] 8 degrees MUSE SYSTEM Calculated T [place] 91 degrees MUSE SYSTEM INTERPRETATION Normal sinus rhythm T wave abnormality, consider anterolateral ischemia Abnormal ECG When compared with ECG of 23-APR-2023 22:45, T wave abnormality improved in inferior leads I personally reviewed the tracing and edited the fellows interpretation Confirmed by fellow MD Urmila, Alexis ([id number]) on 04/24/2023 10:35:23 AM Confirmed by Von Palmer ([id number]) on 04/25/2023 5:36:31 PM MUSE SYSTEM 04/24/2023 7:14 AM EDT 04/25/2023 5:36 PM EDT Vazquez Lan MD ECG ORDERABLES Performing Organization Address City/[facility]/ZIP Co de Phone Number MUSE SYSTEM * ABORH Recheck Status (04/24/2023 4:29 AM EDT) ABORH Recheck Order Order Placed [facility] ABORH Type Recheck Completed [facility] Blood 04/24/2023 4:29 AM EDT 04/24/2023 5:20 AM EDT Narrative Resulting Agency Comment Spec In Lab Vazquez Lan MD BLOOD BANK LAB ORDER ENOC Performing Organization Address City/State/[facility] Co de Phone Number [facility] [place] [address] * (ABNORMAL) Differential, Automated (04/24/2023 4:29 AM EDT) Pathologist [facility] Neutrophil % 60.8 % [facility] Neutrophil Absolute 7.31(H) 1.70 - 6.10 x10(3)/mc L [facility] Lymph % 21.0 % [facility] Lymphocytes Abs 2.5 0.9 - 3.2 x10(3)/mc L [facility] Monocyte % 11.6 % [facility] Monocyte Abs 1.4(H) 0.3 - 0.9 x10(3)/mc L [facility] [facility] Eos % 2.1 % [facility] Eosinophils Abs 0.2 0.0 - 0.4 x10(3)/mc L [facility] Basophil % 0.7 % [facility] Baso Absolute 0.1 0.0 - 0.1 x10(3)/mc L [facility] Immature Gran % 3.80 % [facility] Comment: Immature granulocytes(IG's)percentage and absolute count will include metamyelocytes, myelocytes, and promyelocytes. Blood smears from CBCs yielding IG's will be scanned manually for concordance. If this scan disagrees with the automated IG or if promyelocytes are noted, a manual differential will be performed. Immature Gran Absolute 0.46(H) 0.00 - 0.04 x10(3)/mc L [facility] Blood 04/24/2023 4:29 AM EDT 04/24/2023 5:13 AM EDT Narrative Resulting Agency Comment Spec In Lab Vazquez Lan MD HEMATOLOGY ORDERABLE S [facility] [place] [address] * (ABNORMAL) Hemogram (04/24/2023 4:29 AM EDT) White Blood Cell 12.0(H) 4.0 - 9.5 x10(3)/mc L [facility] Red Blood Cell 3.74(L) 4.58 - 5.54 x10(6)/mc L [facility] Hemoglobin 11.4(L) 13.7 - 16.5 g/dL [facility] Hematocrit 35.5(L) 40.5 - 48.5 % [facility] Mean Cell Volume 94.9(H) 82.9 - 93.1 fL [facility] Mean Cell Hemoglobin 30.5 27.5 - 32.1 pg [facility] Mean Cell Hemoglobin Concentration 32.1 32.0 - 35.7 g/dL [facility] Platelet 589(H) 145 - 357 x10(3)/mc L [facility] RDW Standard Deviation 46.0(H) 36.0 - 45.0 fL [facility] RDW coefficient of variation 13.9(H) 11.4 - 13.8 % [facility] Mean Platelet Volume 10.2 7.6 - 12.9 fL [facility] NRBC% auto 0.2 % [facility] NRBC Absolute 0.020(H) 0.000 - 0.000 x10(3)/mc L [facility] Blood 04/24/2023 4:29 AM EDT 04/24/2023 5:13 AM EDT Narrative Resulting Agency Comment Spec In Lab Vazquez Lan MD HEMATOLOGY ORDERABLE S [facility] [place] [address] * Heparin (unfractionated) Level (04/24/2023 4:29 AM EDT) UF Heparin 0.11 IU/mL [facility] Comment: Specimen drawn more than one [...] MD HEMATOLOGY ORDERABLE S Performing Organization Address [facility] Co de Phone Number [facility] [place] [address] * (ABNORMAL) Hemoglobin A1c (04/24/2023 4:29 AM EDT) Hemoglobin A1c 6.2(H) 4.3 - 5.6 % [facility] Comment: Reference Range: 4.3 - 5.6% [...] Mellitus, Diabetes Care 2013; 36: Suppl. 1, S67-98 Estimated Average Glucose 130 mg/dL [facility] Blood 04/24/2023 4:29 AM EDT 04/24/2023 5:13 AM EDT Narrative Resulting Agency Comment Spec In Lab Vazquez Lan MD CHEMISTRY ORDERABLES Performing Organization Address [facility] Co de Phone Number [facility] [place] [address] * Lipid Panel (Reflex Direct LDL) (04/24/2023 4:29 AM EDT) [facility] Signature Cholesterol, Total 135 mg/dL [facility] Comment: Desirable: ? <200 mg/dL Borderline High: 200-239 mg/dL Higher: ?>la=333 mg/dL Triglyceride 76 mg/dL [facility] Comment: Normal: ?<150 mg/dL Borderline High: 150-199 mg/dL High: ?200-499 mg/dL Very High: ? >ql=695 mg/dL HDL Cholesterol 47 mg/dL [facility] Comment: Females: High Risk: <50 mg/dL Males: High Risk: <40 mg/dL LDL Cholesterol 73 mg/dL [facility] Comment: Desirable: ? <100 mg/dL Above Desirable: 100-129 mg/dL Borderline High: 130-159 mg/dL High: ?160-189 mg/dL Very High: ? >ca=969 mg/dL Cholesterol/HDL Ratio 2.9 ratio [facility] Lipid Interpretation See Note [facility] Comment: It is important to review [...] ACC/AHA Guidelines (most recently Scarlett et al. JACC 11/13/21): ?? For individuals with atherosclerotic cardiovascular disease (ASCVD)or LDL >ng=915 mg/dL, use a high-intensity statin (40-80 mg [...] In Lab Vazquez Lan MD CHEMISTRY ORDERABLES [facility] [place] [address] * [place] and screen [place]CGDerek/EDWARDO[place] (04/24/2023 4:29 AM EDT) Pathologist [facility] ABOR Type A NEGATIVE [facility] Patient BB History Not Found [facility] Expires at [id number] on: 04-27-2023 [facility] Ab Screen Interp Negative [facility] Blood 04/24/2023 4:29 AM EDT 04/24/2023 4:29 AM EDT Narrative [facility] - 04/24/2023 4:29 AM EDT This Type and Screen result is only valid at the [facility] Resulting Agency Comment Spec In Lab Vazquez Lan MD BLOOD BANK LAB ORDER ENOC Performing Organization Address City/[facility]/ZIP Co de Phone Number [facility] [place] [address] * Magnesium (04/24/2023 4:29 AM EDT) Magnesium 0.79 0.69 - 1.07 mmol/L [facility] Blood 04/24/2023 4:29 AM EDT 04/24/2023 5:13 AM EDT Narrative Resulting Agency Comment Spec In Lab Vazquez Lan MD CHEMISTRY ORDERABLES Performing Organization Address [facility] Co de Phone Number [facility] [place] [address] * (ABNORMAL) Basic Metabolic Panel (non-fasting) (04/24/2023 4:29 AM EDT) Glucose 99 65 - 199 mg/dL [facility] Comment:Diabetes: >=200 mg/d L plus symptoms Blood Urea Nitrogen 14 10 - 20 mg/dL [facility] Creatinine 0.81 0.80 - 1.50 mg/dL [facility] Sodium 138 135 - 145 mmol/L [facility] Potassium 3.6 3.5 - 5.0 mmol/L [facility] Comment: Please note: ??Patients with WBC >100,000 may have falsely elevated Potassium levels. ??For accurate Potassium quantification in these patients send serum separator tube (gold top) for subsequent determinations. ??Contact the Clinical Chemistry Laboratory if there are any questions. Chloride 98 98 - 107 mmol/L [facility] Carbon Dioxide 32(H) 22 - 31 mmol/L [facility] Anion Gap 8 5 - 15 mmol/L [facility] Calcium 8.8 8.5 - 10.5 mg/dL [facility] Est Glomerular Filtration Rate 107 >=60 mL/min/1. 73 m?? [facility] Comment: This patient's estimated GFR was [...] In Lab Vazquez Lan MD CHEMISTRY ORDERABLES [facility] [place] [address] * EKG 12 Lead (04/23/2023 10:45 PM EDT) Ventricular rate 86 BPM MUSE SYSTEM Atrial Rate 86 BPM MUSE SYSTEM P-R Interval 140 ms MUSE SYSTEM QRS Duration 74 ms MUSE SYSTEM Q-T Interval 402 ms MUSE SYSTEM QTC Calculated (Bezet) 481 ms MUSE SYSTEM Calculated P [place] 64 degrees MUSE SYSTEM Calculated R [place] 48 degrees MUSE SYSTEM Calculated T [place] 149 degrees MUSE SYSTEM INTERPRETATION Normal sinus rhythm T wave abnormality, consider anterolateral ischemia T wave abnormality, consider inferior ischemia Abnormal ECG No previous ECGs available I personally reviewed the tracing and edited the fellows interpretation Confirmed by fellow MD Kearns Andrew ([id number]) on 04/24/2023 10:29:48 AM Confirmed by Von Palmer ([id number]) on 04/25/2023 5:36:26 PM MUSE SYSTEM 04/23/2023 10:4 5 PM EDT 04/25/2023 5:36 PM EDT Vazquez Lan MD ECG ORDERABLES MUSE SYSTEM documented in this encounter Visit Diagnoses Not on filedocumented in this encounter Admitting Diagnoses Diagnosis NSTEMI [...] Given 04/25/2023 6:47 AM EDT 10 mg fentaNYL (pf) (50 mcg/mL) multi-dose injection PRN, Starting on Fri04/25/23 at 1051, Until Fri04/25/23 at 1120, Intra-Operative (Intra-Procedure), Routine Given 04/25/2023 10:56 AM EDT 25 mcg Given 04/25/2023 10:51 AM EDT 50 mcg heparin (porcine) (1,000 units/mL) injection PRN, Starting on Fri04/25/23 at 1103, Until Fri04/25/23 at 1120, Intra-Operative (Intra-Procedure), Routine Given 04/25/2023 11:03 AM EDT 5,000 Units HYDROmorphone (Dilaudid) tablet 4 mg 4 mg, [...] 1452, for discomfort with PIV insertion, Routine lidocaine (Xylocaine) 1% (10 mg/mL) injection PRN, Starting on Fri04/25/23 at 1059, Until Fri04/25/23 at 1120, Intra-Operative (Intra-Procedure), Routine Given 04/25/2023 10:59 AM EDT 3 mLs Righ t Arm losartan (Cozaar) tablet 25 mg 25 mg, Oral, DAILY, First dose on Fri04/25/23 at 1245, Until Discontinued, Routine Given 04/26/2023 7:38 AM EDT 25 mg Given 04/25/2023 1:04 PM EDT 25 mg midazolam (pf) (Versed) (1 mg/mL) multi-dose injection PRN, Starting on Fri04/25/23 at 1051, Until Fri04/25/23 at 1120, Intra-Operative (Intra-Procedure), Routine Given 04/25/2023 10:58 AM EDT 1 mg Given 04/25/2023 10:51 AM EDT 1 mg morphine CR (MS Contin) tablet 100 [...] the last 24 to 72 hours., Routine nitroGLYcerin 100 mcg/mL intracoronary dilution PRN, Starting on Fri04/25/23 at 1102, Until Fri04/25/23 at 1120, Intra-Operative (Intra-Procedure), Routine Given 04/25/2023 11:02 AM EDT 150 mcg pantoprazole EC (Protonix) tablet 40 mg 40 mg, Oral, DAILY, First dose on Fri04/24/23 at 0900, Until Discontinued Given 04/26/2023 7:38 AM EDT 40 mg Given 04/25/2023 8:22 AM EDT 40 mg Given 04/24/2023 8:10 AM EDT 40 mg polyethylene glycoL (Miralax) packet 17 g 17 g, Oral, DAILY PRN, Starting on Fri04/24/23 at 0959, Until 04/26/23 at 1452, Constipation, Routine pregabalin (Lyrica) capsule 50 mg 50 mg, [...] link provided on this medication record., Routine tiotropium bromide (Spiriva Respimat) 2.5 mcg/actuation inhaler 2 puff 2 puff, Inhalation, DAILY, First dose on Fri04/24/23 at 0900, Until Discontinued Given 04/25/2023 9:00 AM EDT 2 puffs Given 04/24/2023 8:11 AM EDT 2 puffs verapamiL (Isoptin) (2.5 mg/mL) injection PRN, Starting on Fri04/25/23 at 1102, Until Fri04/25/23 at 1120, Administer over 2 Minutes, Intra-Operative (Intra-Procedure) Given 04/25/2023 11:02 AM E DT 2.5 mg documented in this encounter Active and Recently Administered Medications Times are shown in EDT. Scheduled Medication Order 04/24/2023 04/25/2023 04/26/2023 aspirin chewable tablet 81 mg 81 mg, Oral, DAILY, First dose on Fri04/25/23 at 1400, Until Discontinued, Routine 1319 (Given - Provider: Leeann Stafford, PATRICIA) 0738 (Given - Provider: Nicholas Santana, PATRICIA)0900 [...] use., Routine 0811 (Given - Provider: Irma Rodney RN)2159 (Given - Provider: Edel Garcia RN) 0823 (Given - Provider: Leeann Stafford RN)1040 (APR [...] Discontinued, Routine 0638 (Given - Provider: Christie Solomon RN)1722 (Given - Provider: Irma Rodney, PATRICIA) 0647 [...] Christie Solomon, RN)1308 (Given - Provider: Irma Rodney RN)2159 (Given - Provider: Edel Garcia, PATRICIA) 0641 (Given - Provider: Edel Garcia, RN)1040 (APR Hold - Provider: Admin Adt - Reason: Transfer to a Procedural area)1144 (MAR Unhold - Provider: Admin Adt)1304 (Given - Provider: Leeann Stafford, PATRICIA)2103 (Given - Provider: Cassi Kebede, PATRICIA) 0502 (Given - Provider: Cassi Kebede RN) ipratropium-albuteroL (Duoneb) 0.5 mg-3 mg(2.5 mg base)/3 [...] Discontinued, Routine 1304 (Given - Provider: Leeann Stafford, PATRICIA) 0738 (Given - Provider: Nicholas Santana, PATRICIA)0900 (Not Given - Provider: Nicholas Santana RN - Reason: See comment - Comment: given prior to breakfast per pt request) morphine CR (MS Contin) tablet 100 mg 100 mg, Oral, EVERY 8 HOURS SCHEDULED, First dose on Fri04/23/23 at 2315, Until Discontinued, DO NOT CRUSH OR OPEN, Routine 0638 (Given - Provider: Christie Solomon RN)1308 (Given - Provider: Irma Rodney, PATRICIA)2159 (Given - Provider: Edel Garcia, PATRICIA) 0641 (Given - Provider: Edel Garcia RN)1040 (MAR Hold - Provider: Admin Adt - Reason: Transfer to a Procedural area)1144 (MAR Unhold - Provider: Admin Adt)1304 (Given - Provider: Leeann Stafford, PATRICIA)2103 (Given - Provider: Cassi Kebede, PATRICIA) 0502 (Given - Provider: Cassi Kebede, PATRICIA) pantoprazole EC (Protonix) tablet 40 mg 40 mg, Oral, DAILY, First dose on Anabella 04/24/23 at 0900, Until Discontinued 0810 (Given - Provider: Irma Rodney RN) 0822 (Given - Provider: Leeann Stafford RN)1040 (MAR Hold - Provider: Admin Adt - Reason: Transfer to a Procedural area)1144 (MAR Unhold - Provider: Admin Adt) 0738 (Given - Provider: Nicholas Santana RN)0900 (Not Given - Provider: Nicholas Santana RN - Reason: See comment - Comment: given prior to breakfast per pt request) potassium chloride ER (Klor-Con M) crystal tablet 40 mEq (COMPLETED) 40 mEq, Oral, ONCE, 1 dose, On Anabella 04/24/23 at 0715, potassium chloride ER particle/crystal tablets (Klor-Con M) may be broken in half and each half swallowed separately. Tablets can be dissolved in ~4 ounces of water; allow ~2 minutes to dissolve, stir well and drink immediately. Do not crush, chew, or suck on tablet., Routine 0637 (Given - Provider: Christie Solomon, PATRICIA) pregabalin (Lyrica) capsule 50 mg 50 mg, Oral, 2 TIMES DAILY, First dose on Anabella 04/24/23 at 0900, Until Discontinued, Routine 0810 (Given - Provider: Irma Rodney, PATRICIA)2159 (Given - Provider: Edel Garcia, PATRICIA) 0822 (Given - Provider: Leeann Stafford RN)1040 (MAR Hold [...] 0823 (Given - Provider: Leeann Stafford RN)1040 (APR Hold - Provider: Admin Adt - Reason: Transfer to a Procedural area)1144 (APR Unhold - Provider: Admin Adt)2104 (Given - Provider: Cassi Kebede, PATRICIA) 0900 (Not Given - Provider: Nicholas Santana RN - Reason: Patient/family refused) tiotropium bromide (Spiriva Respimat) 2.5 mcg/actuation inhaler 2 puff 2 puff, Inhalation, DAILY, First dose on Fri04/24/23 at 0900, Until Discontinued 0811 (Given - Provider: Irma Rodney RN) 0900 (Given - Provider: Leeann Stafford RN)1040 (APR [...] PATRICIA)1015 (Stopped - Provider: Leeann Stafford RN)1040 (APR Hold - Provider: Admin Adt - Reason: Transfer to a Procedural area)1144 (APR Unhold - Provider: Admin Adt) sodium chloride 0.9% infusion () 75 mL/hr, Intravenous, CONTINUOUS, Starting on Fri04/25/23 at 1200, Until Fri04/25/23 at 1459, Recovery (Recovery-Hospital Unit) 1157 (New Bag - Provider: Leeann Stafford RN)1445 (Stopped - Provider: Leeann Stafford RN) PRN [...] Procedural area)1144 (APR Unhold - Provider: Admin Adt)1628 (Given - [...] Routine 1051 (Given - Provider: Erik Barboza RN)1056 (Given - Provider: Erik Barboza RN) heparin [...] Bolus, Routine 0629 (Given - Provider: Christie Solomon RN)2207 (Given - Provider: Edel Garcia RN) 1040 (APR Hold - Provider: Admin Adt - Reason: Transfer to a Procedural area)1144 ([facility] Unhold - Provider: Admin Adt) heparin (porcine) (1,000 units/mL) injection (CANCELED) PRN, Starting on Fri04/25/23 at 1103, Until Fri04/25/23 at 1120, Intra-Operative (Intra-Procedure), Routine 1103 (Given - Provider: Edel Lopez RN) lidocaine (Xylocaine) 1% (10 mg/mL) injection 3 mg 3 mg (0.3 mL), Subcutaneous, ONCE PRN, 1 dose, Starting on Fri04/23/23 at 2141, Until Fri04/26/23 at 1452, for discomfort with PIV insertion, Routine 1040 (APR Hold - Provider: Admin Adt - Reason: Transfer to a Procedural area)1144 ([facility] Unhold - Provider: Admin Adt) lidocaine (Xylocaine) [...] last 24 to 72 hours., Routine 1040 (APR Hold - Provider: Admin Adt - Reason: Transfer to a Procedural area)1144 (APR Unhold - Provider: Admin Adt) nitroGLYcerin 100 mcg/mL intracoronary dilution (CANCELED) PRN, Starting on Fri04/25/23 at 1102, Until Fri04/25/23 at 1120, Intra-Operative (Intra-Procedure), Routine 1102 (Given - Provider: THOMAS Nicolas) polyethylene glycoL (Miralax) packet 17 g 17 g, Oral, DAILY PRN, Starting on Anabella 04/24/23 at 0959, Until 04/26/23 at 1452, Constipation, Routine 1040 (APR Hold - Provider: Admin Adt - Reason: Transfer to a Procedural area)1144 (APR Unhold - Provider: Admin Adt) prochlorperazine (Compazine) tablet 10 mg 10 mg, Oral, EVERY 6 HOURS PRN, Starting on Fri04/23/23 at 2214, Until 04/26/23 at 1452, Nausea, Maximum dose: 50 mg / 24 hrs, Routine 1040 (APR Hold - Provider: Admin [...] provided on this medication record., Routine 1040 (APR Hold - Provider: Admin Adt - Reason: Transfer to a Procedural area)1144 (APR Unhold - Provider: Admin Adt) verapamiL (Isoptin) [...] Routine documented in this encounter Care Teams Pressure Tank Operator Relationship Specialty Start Date End Date Nikki Hermosillo APRN [facility] [place] [address] PCP - General Family Medicine 04/25/23 documented as of this encounter
--- OUTSIDE RECORDS SUMMARY | 2023-09-15 02:19 | XMS_ITS | Encounter Summary ---
Author Organization [facility] Address [facility] [place] [address] Care Team Providers Care Director Of Conservation Name Role Phone None Primary Care Provider Unavailabl e Reason for Visit * Reason Comments Chemotherapy * Treatment/Therapy Plan Authorization (Routine) - Authorized Specialty Diagnoses / Procedures Referred By Kristan t Referred To Contact Hematology and Oncology Diagnoses Malignant neoplasm of lower lobe, right bronchus or lung Secondary malignant neoplasm of bone Medication management Procedures TC PALONOSETRON HCL, 25MCG, INJECTION (ALOXI) TC APREPITANT, 1 MG, INJECTION TC CARBOPLATIN, 50MG, INJECTION (PARAPLATIN) TC PEMETREXED, 10MG, INJECTION (ALIMTA) Cody Frazier MD [address] [place] [address] [address] [place] [address] Cody Frazier MD [address] [place] [address] DR [place] [address] Referral ID Status Reason Start Date Expiration Date V isits Requested Visits Authorized [id number] Authorized 02/10/2022 08/10/2023 1 103 Encounter Details Date Type Department Care Team (Late st Contact Info) Description 03/31/2023 2:00 PM EST Infusion Hematology Oncology at [address] [phone] Malignant neoplasm of lower lobe, right bronchus or lung; Secondary malignant neoplasm of bone; Medication management Social History Tobacco Use Types Packs/Day Years [...] on file documented as of this encounter Progress Notes * Dedra Son, RN - 03/31/2023 2:00 PM EST INFUSION THERAPY ADMINISTRATION NOTES DIAGNOSIS: NSCLC CYCLE #: Cycle 7, Day 1 REASON FOR VISIT: To receive single agent chemotherapy. SUBJECTIVE: Alexis offers no complaints. OBJECTIVE: Seen by provider. Ready to treat. LAB DATA: adequate for treatment IV ACCESS: PIV Pre administration: Chemotherapy orders independently verified for drug name, route, and dosage per patient's height, weight and BSA by DEDRA SON, PATRICIA and Staff Pharmacist(s). REACTIONS (DESCRIPTION, TIME, INTERVENTION AND EFFECTIVENESS) none ASSESSMENT: Alexis was awake, alert and tolerated treatment well. PIV discontinued prior to dismissal. PLAN: Return to clinic in three weeks. documented in this encounter Plan of Treatment Upcoming Encounters Date Type Department Care Team (Late st Contact Info) Description 09/22/2023 2:30 PM EDT Office Visit Hematology/Oncology at [address] [phone] Cody Frazier MD 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 Administer prior to chemotherapy., Routine Given 03/31/2023 1:57 PM EST 130 mg dexAMETHasone (Decadron) tablet 10 mg 10 mg, Oral, ONCE, 1 dose, On Fri03/31/23 at 1400, Administer prior to chemotherapy, Routine Given 03/31/2023 1:56 PM EST 10 mg palonosetron (Aloxi) (0.05 mg/mL) injection 0.25 mg 0.25 mg, Intravenous, ONCE, 1 dose, On Fri03/31/23 at 1400, Administer over 30 seconds., Routine Given 03/31/2023 1:56 PM EST 0.25 mg PEMEtrexed disodium (Alimta) 900 mg in sodium chloride 0.9% 136 mL infusion 900 mg, Intravenous, ONCE, 1 dose, On Fri03/31/23 at 1500, Administer over 10 Minutes New Bag 03/31/2023 2:35 PM EST 900 mg 816 mL/hr documented in this encounter Care Teams Director Of Conservation Relationship Specialty Start Date End Date None None PCP - General 04/03/22 04/24/23 documented as of this encounter
--- OUTSIDE RECORDS SUMMARY | 2023-09-15 02:19 | XMS_ITS | Encounter Summary ---
Author Organization [facility] Address [facility] [place] [id number] Care Team Providers Care Conductor Symphonic Orchestra Name Role Phone None Primary Care Provider Unavailabl e Encounter Details Date Type Department Care Team (Late st Contact Info) Description 03/24/2023 Telephone Hematology/Oncology at [address] [phone] Bea Grimes APRN [address] [place] [address] DR [place]EMAT[place]Y [place] [address] Social History Tobacco Use Types [...] 2:30 PM EDT Office Visit Hematology/Oncology at [address] [phone] Cody Frazier MD [facility] [place] [address] documented as of this encounter Visit Diagnoses Diagnosis 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
--- OUTSIDE RECORDS SUMMARY | 2023-09-15 02:19 | XMS_ITS | Encounter Summary ---
Author Organization [facility] Address [facility] [place] [address] Care Team Providers Care Slab Miller Operator Name Role Phone None Primary Care Provider Unavailabl e Encounter Details Date Type Department Care Team (Late st Contact Info) Description 03/17/2023 Orders Only Hematology/Oncology at [address] [phone] Nathaly Mart, RN Malignant neoplasm of lower lobe, right bronchus or lung Social History Tobacco Use Types Packs/Day Years [...] to sleep or slept in a senior living (including now)? No 07/16/2021 Sex and Gender Information Value Date Recorded Sex Assigned at Not on file Gender Identity Not on file Sexual Orientation Not on file documented as of this encounter Plan of Treatment Upcoming Encounters Date Type Department Care Team (Late st Contact Info) Description 09/22/2023 2:30 PM EDT Office Visit Hematology/Oncology at [address] [phone] Cody Frazier MD [facility] DR HEMATOLOGY [place] [address] documented as of this encounter Visit Diagnoses Diagnosis Malignant neoplasm of lower lobe, right bronchus or lung documented in this encounter Care Teams Slab Miller Operator Relationship Specialty Start Date End Date None None PCP - General 04/03/22 04/24/23 documented as of this encounter
--- OUTSIDE RECORDS SUMMARY | 2023-09-15 02:20 | XMS_ITS | Encounter Summary ---
Author Organization [facility] Address [facility] [place] [id number] Care Team Providers Care Iron Pourer Name Role Phone None Primary Care Provider Unavailabl e Encounter Details Date Type Department Care Team (Latest Contact Info) Description 10/28/2022 Travel Social History Tobacco Use Types Packs/Day [...] place to sleep or slept in a mcfp (including now)? No 07/16/2021 Sex and Gender Information Value Date Recorded Sex Assigned at Not on file Gender Identity Not on file Sexual Orientation Not on file documented as of this encounter Plan of Treatment Upcoming Encounters Date Type Department Care Team (Late st Contact Info) Description 09/22/2023 2:30 PM EDT Office Visit Hematology/Oncology at [address] [phone] Cody Frazier MD [facility] DR [place] [address] documented as of this encounter Visit Diagnoses Not on filedocumented in this encounter Care Teams Iron Pourer Relationship Specialty Start Date End Date None None PCP - General 04/03/22 04/24/23 documented as of this encounter
--- OUTSIDE RECORDS SUMMARY | 2023-09-15 02:20 | XMS_ITS | Encounter Summary ---
Author Organization [facility] Address [facility] [place] [address] Care Team Providers Care Consumer Services Advisor Name Role Phone None Primary Care Provider Unavailabl e Encounter Details Date Type Department Care Team (Late st Contact Info) Description 10/21/2022 Refill Hematology/Oncology at [address] [phone] Bea Grimes APRN [address] [place] [address] DR [place] [address] Secondary malignant neoplasm of bone; Malignant neoplasm of lower lobe, right bronchus [...] PM EDT Office Visit Hematology/Oncology at [address] [phone] Cody Frazier MD [facility] DR [place] [address] documented as of this encounter Visit Diagnoses Diagnosis 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
--- OUTSIDE RECORDS SUMMARY | 2023-09-15 02:20 | XMS_ITS | Encounter Summary ---
Author Organization [facility] Address [facility] [place] [address] Care Team Providers Care Mechanical Technical Service Specialist Name Role Phone None Primary Care Provider Unavailabl e Encounter Details Date Type Department Care Team (Late st Contact Info) Description 10/03/2022 Orders Only Hematology/Oncology at [address] [phone] Bea Grimes APRN [address] [place] [address] DR HEMATOLOGY [place] [address] Malignant neoplasm of lower lobe, [...] slept in a jail (including now)? No 07/16/2021 Sex and Gender Information Value Date Recorded Sex Assigned at Not on file Gender Identity Not on file Sexual Orientation Not on file documented as of this encounter Plan of Treatment Upcoming Encounters Date Type Department Care Team (Late st Contact Info) Description 09/22/2023 2:30 PM EDT Office Visit Hematology/Oncology at [address] [phone] Cody Frazier MD [facility] [place] [address] documented as of this encounter Visit Diagnoses Diagnosis Malignant neoplasm of lower lobe, right bronchus or lung documented in this encounter Care Teams Mechanical Technical Service Specialist Relationship Specialty Start Date End Date None None PCP - General 04/03/22 04/24/23 documented as of this encounter
--- OUTSIDE RECORDS SUMMARY | 2023-09-15 02:20 | XMS_ITS | Encounter Summary ---
Author Organization [facility] Address [facility] [place] [address] Care Team Providers Care Stain Dipper Name Role Phone None Primary Care Provider Unavailabl e Reason for Visit * Reason Onset Date Comments Medication Refill 11/27/2022 MS Contin Encounter Details Date Type Department Care Team (Late st Contact Info) Description 11/27/2022 Telephone Hematology/Oncology at [address] [phone] Bea Grimes APRN [address] [place] [address] DR HEMATOLOGY [place] [address] Medication Refill (MS Contin ) Social History Tobacco Use Types Packs/Day Years [...] Telephone Encounter - Bandar Dillard RN - 11/27/2022 11:11 AM EDT ----- Message from Ashanti Lira sent at 11/27/2022 10:20 AM EDT ----- Alexis called in today looking for a refill on his morphine CR (MS Contin) 100 mg ER tablet Please send to: [id number] - [address] [address] Best call back number:[phone] documented in this encounter Plan of Treatment Upcoming Encounters Date Type Department Care Team (Late st Contact Info) Description 09/22/2023 2:30 PM EDT Office Visit Hematology/Oncology at [address] [phone] Cody Frazier MD [facility] DR [place] [address] documented as of this encounter Visit Diagnoses Diagnosis Malignant neoplasm of lower lobe, right bronchus or lung documented in this encounter Care Teams Stain Dipper Relationship Specialty Start Date End Date None None PCP - General 04/03/22 04/24/23 documented as of this encounter
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
--- OUTSIDE RECORDS SUMMARY | 2023-09-15 02:20 | XMS_ITS | Encounter Summary ---
Author Organization [facility] Address [facility] [place] [id number] Care Team Providers Care Filler Sifter Machine Name Role Phone None Primary Care Provider Unavailabl e Encounter Details Date Type Department Care Team (Late st Contact Info) Description 01/20/2023 Telephone Hematology/Oncology at [address] [phone] Bea Grimes APRN [address] [place] [address] DR HEMATOLOGY [place] [address] Social History Tobacco Use Types [...] PM EDT Office Visit Hematology/Oncology at [address] [phone] Cody Frazier MD [facility] DR [place] [address] documented as of this encounter Visit Diagnoses Diagnosis Neoplasm related pain Neoplasm related pain (acute) (chronic) Malignant neoplasm of lower lobe, right bronchus or lung documented in this encounter Care Teams Filler Sifter Machine Relationship Specialty Start Date End Date None None PCP - General 04/03/22 04/24/23 documented as of this encounter
--- OUTSIDE RECORDS SUMMARY | 2023-09-15 02:20 | XMS_ITS | Encounter Summary ---
Author Organization [facility] Address [facility] [place] [address] Care Team Providers Care Slate Mixer Name Role Phone None Primary Care Provider Unavailabl e Encounter Details Date Type Department Care Team (Latest Contact Info) Description 02/12/2023 Travel Social History Tobacco Use Types Packs/Day [...] place to sleep or slept in a usp (including now)? No 07/16/2021 Sex and Gender Information Value Date Recorded Sex Assigned at Not on file Gender Identity Not on file Sexual Orientation Not on file documented as of this encounter Plan of Treatment Upcoming Encounters Date Type Department Care Team (Late st Contact Info) Description 09/22/2023 2:30 PM EDT Office Visit Hematology/Oncology at [address] [phone] Cody Frazier MD [facility] DR [place] [address] documented as of this encounter Visit Diagnoses Not on filedocumented in this encounter Care Teams Slate Mixer Relationship Specialty Start Date End Date None None PCP - General 04/03/22 04/24/23 documented as of this encounter
--- OUTSIDE RECORDS SUMMARY | 2023-09-15 02:20 | XMS_ITS | Encounter Summary ---
Author Organization [facility] Address [facility] [place] [id number] Care Team Providers Care Purchase Request Editor Name Role Phone None Primary Care Provider Unavailabl e Encounter Details Date Type Department Care Team (Latest Contact Info) Description 12/30/2022 Travel Social History Tobacco Use Types Packs/Day [...] place to sleep or slept in a chcf (including now)? No 07/16/2021 Sex and Gender Information Value Date Recorded Sex Assigned at Not on file Gender Identity Not on file Sexual Orientation Not on file documented as of this encounter Plan of Treatment Upcoming Encounters Date Type Department Care Team (Late st Contact Info) Description 09/22/2023 2:30 PM EDT Office Visit Hematology/Oncology at [address] [phone] Cody Frazier MD [facility] DR [place] [address] documented as of this encounter Visit Diagnoses Not on filedocumented in this encounter Care Teams Purchase Request Editor Relationship Specialty Start Date End Date None None PCP - General 04/03/22 04/24/23 documented as of this encounter
--- OUTSIDE RECORDS SUMMARY | 2023-09-15 02:20 | XMS_ITS | Encounter Summary ---
Author Organization [facility] Address [facility] [place] [address] Care Team Providers Care Stunt Double Name Role Phone None Primary Care Provider Unavailabl e Reason for Visit * Reason Onset Date Comments Medication Refill 12/04/2022 Lyrica Encounter Details Date Type Department Care Team (Late st Contact Info) Description 12/04/2022 Telephone Hematology/Oncology at [address] [phone] Bea Grimes APRN [address] [place] [address] DR [place] [address] Medication Refill (Lyrica ) Social History Tobacco Use Types Packs/Day [...] slept in a custodial (including now)? No 07/16/2021 Sex and Gender Information Value Date Recorded Sex Assigned at Not on file Gender Identity Not on file Sexual Orientation Not on file documented as of this encounter Miscellaneous Notes * Telephone Encounter - Bandar Dillard RN - 12/04/2022 12:59 PM EDT ----- Message from Azra Sky sent at 12/04/2022 12:06 PM EDT ----- Alexis called to say he is out of his medication Lyrica. He is looking for a new rx. He uses [facility] in [facility] His call back number is [phone] Thank you Azra documented in this encounter Plan of Treatment Upcoming Encounters Date Type Department Care Team (Late st Contact Info) Description 09/22/2023 2:30 PM EDT Office Visit Hematology/Oncology at [address] [phone] Cody Frazier MD [facility] DR HEMATOLOGY [place] [address] documented as of this encounter Visit Diagnoses Diagnosis Neoplasm related pain Neoplasm related pain (acute) (chronic) Malignant neoplasm of lower lobe, right bronchus or lung 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
--- OUTSIDE RECORDS SUMMARY | 2023-09-15 02:20 | XMS_ITS | Encounter Summary ---
Author Organization [facility] Address [facility] [place] [address] Care Team Providers Care Software Developer Manager Name Role Phone None Primary Care Provider Unavailabl e Encounter Details Date Type Department Care Team (Late st Contact Info) Description 11/12/2022 Ancillary Procedure Radiology Library at [facility] [place] [phone] Cody Frazier MD [facility] DR HEMATOLOGY [place] [address] Social History Tobacco Use Types Packs/Day Years [...] in a group home (including now)? No 07/16/2021 Sex and Gender Information Value Date Recorded Sex Assigned at Not on file Gender Identity Not on file Sexual Orientation Not on file documented as of this encounter Plan of Treatment Upcoming Encounters Date Type Department Care Team (Late st Contact Info) Description 09/22/2023 2:30 PM EDT Office Visit Hematology/Oncology at [address] [phone] Cody Frazier MD [facility] DR HEMATOLOGY [place] [address] documented as of this encounter Procedures Procedure Name Priority Date/Time Associated Diagnosis Comments FILM LIBRARY STORAGE ONLY CT CHEST ABDOMEN PELVIS Routine 11/12/2022 12:00 AM EDT documented in this encounter Results * Film Library- Storage Only CT Chest Abdomen Pelvis (11/12/2022 12:00 AM EDT) Narrative [facility] [place] 2[place] - 11/13/2022 1:50 PM EDT This exam is auto-finalizing. It's purpose is for storage only. Cody Frazier MD [facility] FILM LIBRARY ORD ERABLES [place], [place] documented in this encounter Visit Diagnoses Not on filedocumented in this encounter Care Teams Software Developer Manager Relationship Specialty Start Date End Date None None PCP - General 04/03/22 04/24/23 documented as of this encounter
--- OUTSIDE RECORDS SUMMARY | 2023-09-15 02:20 | XMS_ITS | Encounter Summary ---
Author Organization [facility] Address [facility] [place] [address] Care Team Providers Care Clark Driver Name Role Phone None Primary Care Provider Unavailabl e Encounter Details Date Type Department Care Team (Late st Contact Info) Description 12/23/2022 Ancillary Procedure Radiology Library at [facility] [place] [phone] Cody Frazier MD [facility] [address] [place] [address] Social History Tobacco Use Types Packs/Day Years [...] place to sleep or slept in a skilled nursing (including now)? No 07/16/2021 Sex and Gender Information Value Date Recorded Sex Assigned at Not on file Gender Identity Not on file Sexual Orientation Not on file documented as of this encounter Plan of Treatment Upcoming Encounters Date Type Department Care Team (Late st Contact Info) Description 09/22/2023 2:30 PM EDT Office Visit Hematology/Oncology at [address] [phone] Cody Frazier MD [facility] DR HEMATOLOGY [place] [address] documented as of this encounter Procedures Procedure Name Priority Date/Time Associated Diagnosis Comments FILM LIBRARY STORAGE ONLY CT CHEST Routine 12/23/2022 12:00 AM EST documented in this encounter Results * Film Library- Storage Only CT Chest (12/23/2022 12:00 AM EST) Narrative HENNA - 12/24/2022 9:38 AM EST This exam is auto-finalizing. It's purpose is for storage only. Cody Frazier MD G FILM LIBRARY ORD ERABLES HENNA [place], [place] documented in this encounter Visit Diagnoses Not on filedocumented in this encounter Care Teams Clark Driver Relationship Specialty Start Date End Date None None PCP - General 04/03/22 04/24/23 documented as of this encounter
--- OUTSIDE RECORDS SUMMARY | 2023-09-15 02:20 | XMS_ITS | Encounter Summary ---
Author Organization [facility] Address [facility] [place] [address] Care Team Providers Care Registered Occupational Therapist Name Role Phone None Primary Care Provider Unavailabl e Reason for Visit * Reason Onset Date Comments Medication Refill 12/25/2022 MS don ER Encounter Details Date Type Department Care Team (Late st Contact Info) Description 12/25/2022 Refill Hematology/Oncology at [address] [phone] Bea Grimes APRN [address] [place] [address] [place] [address] Malignant neoplasm of lower lobe, [...] Telephone Encounter - Bandar Dillard RN - 12/25/2022 9:50 AM EST Checked against chart and request sent to provider to review and sign. ----- Message from Kirstin Peña sent at 12/25/2022 9:27 AM EST ----- Regarding: morphine refill Alexis called to get his morphine CR (MS Contin) 100 mg ER tablet refilled. It is due today. documented in this encounter Plan of Treatment Upcoming Encounters Date Type Department Care Team (Late st Contact Info) Description 09/22/2023 2:30 PM EDT Office Visit Hematology/Oncology at [address] [phone] Cody Frazier MD [facility] DR [place] [address] documented as of this encounter Visit Diagnoses Diagnosis Malignant neoplasm of lower lobe, right bronchus or lung documented in this encounter Care Teams Registered Occupational Therapist Relationship Specialty Start Date End Date None None PCP - General 04/03/22 04/24/23 documented as of this encounter
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
--- OUTSIDE RECORDS SUMMARY | 2023-09-15 02:20 | XMS_ITS | Encounter Summary ---
Author Organization [facility] Address [facility] [place] [id number] Care Team Providers Care Survey Research Manager Name Role Phone None Primary Care Provider Unavailabl e Encounter Details Date Type Department Care Team (Late st Contact Info) Description 10/28/2022 Notes Only Hematology/Oncology at [address] [phone] Lorraine Huerta, [facility] Social History Tobacco Use Types Packs/Day Years [...] slept in a halfway (including now)? No 07/16/2021 Sex and Gender Information Value Date Recorded Sex Assigned at Not on file Gender Identity Not on file Sexual Orientation Not on file documented as of this encounter Progress Notes * Lorraine Huerta MSW - 10/28/2022 12:31 PM EDT Follow up with Alexis during his infusion visit today. He indicated he is doing well overall. He isspending time with his extended family which he enjoys. He continues to use the [employer] bus to get to his appointments. He indicated he uses [employer] for trips to occasionally. He needs to contact [facility] re aletter he received to make sure he is still on their books. Alexis did not identify any new needs today. Offered support. Will continue to follow as indicated. Brief assessment Supportive Counseling Transportation resources documented in this encounter Plan of Treatment Upcoming Encounters Date Type Department Care Team (Late st Contact Info) Description 09/22/2023 2:30 PM EDT Office Visit Hematology/Oncology at [address] [phone] Cody Frazier MD [facility] DR HEMATOLOGY [place] [address] documented as of this encounter Visit Diagnoses Not on filedocumented in this encounter Care Teams Survey Research Manager Relationship Specialty Start Date End Date None None PCP - General 04/03/22 04/24/23 documented as of this encounter
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
--- OUTSIDE RECORDS SUMMARY | 2023-09-15 02:20 | XMS_ITS | Encounter Summary ---
Author Organization [facility] Address [facility] [place] [address] Care Team Providers Care Template Clerk Name Role Phone None Primary Care Provider Unavailabl e Reason for Visit * Reason Onset Date Comments Medication Refill 01/07/2023 Pregabalin Encounter Details Date Type Department Care Team (Late st Contact Info) Description 01/07/2023 Telephone Hematology/Oncology at [address] [phone] Bea Grimes APRN [address] [place] [address] DR HEMATOLOGY [place] [address] Medication Refill (Pregabalin ) Social History Tobacco Use Types Packs/Day [...] Telephone Encounter - Bandar Dillard RN - 01/07/2023 10:42 AM EST Confirmed with pharmacy there are no refills and need new script. Allowed 5 refills with new script. Sent to provider. ----- Message from Kirstin Peña sent at 01/07/2023 9:41 AM EST ----- Regarding: Rx Refill Alexis was looking to get a refill for his pregabalin (Lyrica) 50 mg capsule to [facility] in [facility]. 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
--- OUTSIDE RECORDS SUMMARY | 2023-09-15 02:20 | XMS_ITS | Encounter Summary ---
Author Organization [facility] Address [facility] [place] [id number] Care Team Providers Care Crisis Nurse Name Role Phone None Primary Care Provider Unavailabl e Encounter Details Date Type Department Care Team (Latest Contact Info) Description 12/09/2022 Travel Social History Tobacco Use Types Packs/Day [...] 2:30 PM EDT Office Visit Hematology/Oncology at [address] [phone] Coyd Frazier MD [facility] DR [place] [address] documented as of this encounter Visit Diagnoses Not on filedocumented in this encounter Care Teams Crisis Nurse Relationship Specialty Start Date End Date None None PCP - General 04/03/22 04/24/23 documented as of this encounter
--- OUTSIDE RECORDS SUMMARY | 2023-09-15 02:20 | XMS_ITS | Encounter Summary ---
Author Organization [facility] Address [facility] [place] [address] Care Team Providers Care Clinical Rehab Liaison Name Role Phone None Primary Care Provider Unavailabl e Encounter Details Date Type Department Care Team (Late st Contact Info) Description 01/10/2023 Ancillary Procedure Radiology Library [place] [facility] [place] [phone] Bea Grimes APRN [address] [place] [address] DR HEMATOLOGY [place] [address] Social History Tobacco Use Types [...] in a long term (including now)? No 07/16/2021 Sex and Gender Information Value Date Recorded Sex Assigned at Not on file Gender Identity Not on file Sexual Orientation Not on file documented as of this encounter Plan of Treatment Upcoming Encounters Date Type Department Care Team (Late st Contact Info) Description 09/22/2023 2:30 PM EDT Office Visit Hematology/Oncology at [address] [phone] Cody Frazier MD [facility] DR [place] [address] documented as of this encounter Procedures Procedure Name Priority Date/Time Associated Diagnosis Comments FILM LIBRARY STORAGE ONLY DX CHEST Routine 01/10/2023 12:00 AM EST documented in this encounter Results * Film Library- Storage Only DX Chest (01/10/2023 12:00 AM EST) Narrative [facility] - 01/11/2023 2:39 AM EST This exam is auto-finalizing. It's purpose is for storage only. Bea Grimes APRN IMG FILM LIBRARY ORDERABLES [place], [place] documented in this encounter Visit Diagnoses Not on filedocumented in this encounter Care Teams Clinical Rehab Liaison Relationship Specialty Start Date End Date None None PCP - General 04/03/22 04/24/23 documented as of this encounter
--- OUTSIDE RECORDS SUMMARY | 2023-09-15 02:20 | XMS_ITS | Encounter Summary ---
Author Organization [facility] Address [facility] [place] [address] Care Team Providers Care Mash Grinder Name Role Phone None Primary Care Provider Unavailabl e Encounter Details Date Type Department Care Team (Late st Contact Info) Description 09/30/2022 Orders Only Hematology Oncology at [address] [phone] Deanne Nelson, RN Secondary malignant neoplasm of bone; Malignant neoplasm [...] 2:30 PM EDT Office Visit Hematology/Oncology at [address] [phone] Cody Frazier MD [facility] [address] [place] [address] documented as of this encounter Visit Diagnoses Diagnosis 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
--- OUTSIDE RECORDS SUMMARY | 2023-09-15 02:20 | XMS_ITS | Encounter Summary ---
Author Organization [facility] Address [facility] [place] [address] Care Team Providers Care Partner Management Consultant Name Role Phone None Primary Care Provider Unavailabl e Reason for Visit * Reason Comments Chemotherapy Cycle 6, Day 1 - Pem etrexed/B12 * Treatment/Therapy Plan Authorization (Routine) - Authorized Specialty Diagnoses / Procedures Referred By Contac t Referred To Contact Hematology and Oncology Diagnoses Malignant neoplasm of lower lobe, right bronchus or lung Secondary malignant neoplasm of bone Medication management Procedures TC PALONOSETRON HCL, 25MCG, INJECTION (ALOXI) TC APREPITANT, 1 MG, INJECTION TC CARBOPLATIN, 50MG, INJECTION (PARAPLATIN) TC PEMETREXED, 10MG, INJECTION (ALIMTA) Cody Frazier MD [address] [place] [address] DR HEMATOLOGY [place] [address] Cody Frazier MD [address] [place] [address] DR HEMATOLOGY [place] [address] Referral ID Status Reason Start Date Expiration Date V isits Requested Visits Authorized [id number] Authorized 02/10/2022 08/10/2023 1 103 Encounter Details Date Type Department Care Team (Late st Contact Info) Description 03/10/2023 11:00 AM EST Infusion Hematology Oncology at [address] [phone] Malignant neoplasm of lower lobe, [...] as of this encounter Progress Notes * Aydee Yung RN - 03/10/2023 11:00 AM EST INFUSION THERAPY ADMINISTRATION NOTES DIAGNOSIS: NSCLC CYCLE #: Cycle 6, Day 1 - Pemetrexed/B12 REASON FOR VISIT: To receive single agent chemotherapy. SUBJECTIVE: Alexis offers no complaints. OBJECTIVE: Seen by provider. Ready to treat. LAB DATA: WBC - 7.15, H/H - 15.1/45.6, Plt Ct - 440, ANC - 3.97, Lytes wnl, BUN/Cr - 7/1.0, MG++ - 2.0 IV ACCESS: PIV Pre administration: Chemotherapy orders independently verified for drug name, route, and dosage per patient's height, weight and BSA by Aydee Yung, PATRICIA and Staff Pharmacist(s). REACTIONS (DESCRIPTION, TIME, INTERVENTION AND EFFECTIVENESS) none ASSESSMENT: Alexis was awake, alert and tolerated treatment well. PIV discontinued prior to dismissal. PLAN: Return to clinic in three weeks. documented in this encounter Plan of Treatment Upcoming Encounters Date Type Department Care Team (Late st Contact Info) Description 09/22/2023 2:30 PM EDT Office Visit Hematology/Oncology at [address] [phone] Cody Frazier MD [facility] DR HEMATOLOGY [place] [address] documented as of this encounter Visit Diagnoses [...] over 2 Minutes, ONCE, 1 dose, On Fri03/10/23 at 1130, Alternative administration of IV push over 2 minutes is a recommendation from the personal clothing laundry aide. Administer prior to chemotherapy., Routine Given 03/10/2023 11:29 AM EST 130 mg cyanocobalamin (Vitamin B-12) (1,000 mcg/mL) injection 1,000 mcg 1,000 mcg, Subcutaneous, ONCE, 1 dose, On Fri03/10/23 at 1130, Administer prior to PEMEtrexed. Recommended dose is 1,000 mcg every 9 weeks. Confirm last date of Vitamin B12 administration., Routine Given 03/10/2023 11:26 AM EST 1,000 mcg Right Arm dexAMETHasone (Decadron) tablet 10 mg 10 mg, Oral, ONCE, 1 dose, On Fri03/10/23 at 1130, Administer prior to chemotherapy, Routine Given 03/10/2023 11:28 AM EST 10 mg palonosetron (Aloxi) (0.05 mg/mL) injection 0.25 mg 0.25 mg, Intravenous, ONCE, 1 dose, On Fri03/10/23 at 1130, Administer over 30 seconds., Routine Given 03/10/2023 11:28 AM EST 0.25 mg PEMEtrexed disodium (Alimta) 900 mg in sodium chloride 0.9% 136 mL infusion 900 mg, Intravenous, ONCE, 1 dose, On Fri03/10/23 at 1230, Administer over 10 Minutes New Bag 03/10/2023 12:30 PM EST 900 mg 816 mL/hr documented in this encounter Care Teams Partner Management Consultant Relationship Specialty Start Date End Date None None PCP - General 04/03/22 04/24/23 documented as of this encounter
--- OUTSIDE RECORDS SUMMARY | 2023-09-15 02:20 | XMS_ITS | Encounter Summary ---
Author Organization [facility] Address [facility] [place] [id number] Care Team Providers Care Leveler Helper Name Role Phone None Primary Care Provider Unavailabl e Encounter Details Date Type Department Care Team (Late st Contact Info) Description 03/03/2023 Telephone Hematology/Oncology at [address] [phone] Bea Grimes APRN [address] [place] [address] DR HEMATOLOGY [place] [address] Social History Tobacco Use [...] 2:30 PM EDT Office Visit Hematology/Oncology at [address] [phone] Cody Frazier MD [facility] [place] [address] documented as of this encounter Visit Diagnoses Diagnosis Neoplasm related pain Neoplasm related pain (acute) (chronic) documented in this encounter Care Teams Leveler Helper Relationship Specialty Start Date End Date None None PCP - General 04/03/22 04/24/23 documented as of this encounter
--- OUTSIDE RECORDS SUMMARY | 2023-09-15 02:20 | XMS_ITS | Encounter Summary ---
Author Organization [facility] Address [facility] [place] [address] Care Team Providers Care Early Childhood Teacher Assistant Name Role Phone None Primary Care Provider Unavailabl e Encounter Details Date Type Department Care Team (Late st Contact Info) Description 02/11/2023 Orders Only Hematology Oncology at [address] [phone] Mgao Mariee, RN Neoplasm related pain Social History Tobacco [...] as of this encounter Progress Notes * Mago Mariee RN - 02/11/2023 12:10 PM EST [facility] Hem Onc Nurse Alexis called and is looking for an Rx for Hydromorphone. He uses [facility] in [facility]. His call back number is [phone] Received prescription refill request via patient call for the following medication: Hydromorphone 2mg tablets Review of chart suggests that this is an appropriate refill request. Prescription pended and laura Grimes APRN for review and approval, if agreed. documented in this encounter Plan of Treatment Upcoming Encounters Date Type Department Care Team (Late st Contact Info) Description 09/22/2023 2:30 PM EDT Office Visit Hematology/Oncology at [address] [phone] Cody Frazier MD [facility] DR HEMATOLOGY [place] [address] documented as of this encounter Visit Diagnoses Diagnosis Neoplasm related pain Neoplasm related pain (acute) (chronic) documented in this encounter Care Teams Early Childhood Teacher Assistant Relationship Specialty Start Date End Date None None PCP - General 04/03/22 04/24/23 documented as of this encounter
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
--- OUTSIDE RECORDS SUMMARY | 2023-09-15 02:20 | XMS_ITS | Encounter Summary ---
Author Organization [facility] Address [facility] [place] [id number] Care Team Providers Care Parent Trainer Name Role Phone None Primary Care Provider Unavailabl e Encounter Details Date Type Department Care Team (Latest Contact Info) Description 11/20/2022 Travel Social History Tobacco Use Types Packs/Day [...] PM EDT Office Visit Hematology/Oncology at [address] [phone] Cody Frazier MD [facility] DR HEMATOLOGY [place] [address] documented as of this encounter Visit Diagnoses Not on filedocumented in this encounter Care Teams Parent Trainer Relationship Specialty Start Date End Date None None PCP - General 04/03/22 04/24/23 documented as of this encounter
--- OUTSIDE RECORDS SUMMARY | 2023-09-15 02:20 | XMS_ITS | Encounter Summary ---
Author Organization [facility] Address [facility] [place] [address] Care Team Providers Care Inpatient Services Rn Name Role Phone None Primary Care Provider Unavailabl e Encounter Details Date Type Department Care Team (Late st Contact Info) Description 02/17/2023 Telephone Hematology/Oncology at [address] [phone] Cody Frazier MD [facility] DR [place] [address] Social History Tobacco Use Types Packs/Day Years [...] PM EDT Office Visit Hematology/Oncology at [address] [phone] Cody Frazier MD [facility] DR [place] [address] documented as of this encounter Visit Diagnoses Diagnosis Malignant neoplasm of lower lobe, right bronchus or lung documented in this encounter Care Teams Inpatient Services Rn Relationship Specialty Start Date End Date None None PCP - General 04/03/22 04/24/23 documented as of this encounter
--- OUTSIDE RECORDS SUMMARY | 2023-09-15 02:20 | XMS_ITS | Encounter Summary ---
Author Organization [facility] Address [facility] [place] [address] Care Team Providers Care Quilting Machine Operator Name Role Phone None Primary Care Provider Unavailabl e Reason for Visit * Reason Comments Chemotherapy C3D1 Carbo/Pemetrexe d * Treatment/Therapy Plan Authorization (Routine) - Authorized Specialty Diagnoses / Procedures Referred By Kristan t Referred To Contact Hematology and Oncology Diagnoses Malignant neoplasm of lower lobe, right bronchus or lung Secondary malignant neoplasm of bone Medication management Procedures TC PALONOSETRON HCL, 25MCG, INJECTION (ALOXI) TC APREPITANT, 1 MG, INJECTION TC CARBOPLATIN, 50MG, INJECTION (PARAPLATIN) TC PEMETREXED, 10MG, INJECTION (ALIMTA) Cody Frazier MD [address] [place] [address] [place] [address] Cody Frazier MD [address] [place] [address] [place] [address] Referral ID Status Reason Start Date Expiration Date V isits Requested Visits Authorized [id number] Authorized 02/10/2022 08/10/2023 1 103 Encounter Details Date Type Department Care Team (Late st Contact Info) Description 11/20/2022 10:30 AM EDT Infusion Hematology Oncology at [address] [phone] Malignant neoplasm of lower lobe, right bronchus [...] as of this encounter Progress Notes * Mohini Caal RN - 11/20/2022 10:30 AM EDT INFUSION THERAPY ADMINISTRATION NOTES DIAGNOSIS: NSCLC CYCLE #: 3, Day 1 REASON FOR VISIT: Carbo/Pemetrexed SUBJECTIVE: Alexis offers no complaints, he met with Bea Maurice APRN prior to infusion, ready for treatment. OBJECTIVE: LAB DATA: completed 11/20 at [facility] IV ACCESS: PIV Pre administration: Chemotherapy orders independently verified for drug name, route, and dosage per patient's height, weight and BSA by Mohini Caal RN and Staff Pharmacist(s). REACTIONS (DESCRIPTION, TIME, INTERVENTION AND EFFECTIVENESS) none ASSESSMENT: Alexis was awake, alert and tolerated treatment well. PIV discontinued prior to dismissal. PLAN: Return to clinic per plan. documented in this encounter Plan of Treatment Upcoming Encounters Date Type Department Care Team (Late st Contact Info) Description 09/22/2023 2:30 PM EDT Office Visit Hematology/Oncology at [address] [phone] Cody Frazier MD [facility] DR HEMAT[place] [address] documented as of this encounter Visit Diagnoses [...] over 2 Minutes, ONCE, 1 dose, On Fri11/20/22 at 1045, Alternative administration of IV push over 2 minutes is a recommendation from the schedule supervisor. Administer prior to chemotherapy., Routine Given 11/20/2022 10:52 AM EDT 130 mg CARBOplatin (Paraplatin) 434 mg in dextrose 5% 293.4 mL infusion 434 mg (Target AUC = 4), Intravenous, ONCE, 1 dose, On Fri11/20/22 at 1145, Administer over 30 Minutes, Warning Vesicant/Irritant Medication New Bag 11/20/2022 12:48 PM EDT 434 mg 586.8 mL/hr cyanocobalamin (Vitamin B-12) (1,000 mcg/mL) injection 1,000 mcg 1,000 mcg, Intramuscular, ONCE, 1 dose, On Fri11/20/22 at 1045, Routine Given 11/20/2022 10:45 AM EDT 1,000 mcg Right Deltoid dexAMETHasone (Decadron) tablet 10 mg 10 mg, Oral, ONCE, 1 dose, On Fri11/20/22 at 1045, Administer prior to chemotherapy, Routine Given 11/20/2022 10:43 AM EDT 10 mg palonosetron (Aloxi) (0.05 mg/mL) injection 0.25 mg 0.25 mg, Intravenous, ONCE, 1 dose, On Fri11/20/22 at 1045, Administer over 30 seconds., Routine Given 11/20/2022 10:49 AM EDT 0.25 mg PEMEtrexed disodium (Alimta) 900 mg in sodium chloride 0.9% 136 mL infusion 900 mg, Intravenous, ONCE, 1 dose, On Fri11/20/22 at 1145, Administer over 10 Minutes, Dose Ordered = 870 mg (500 mg/m2). Pharmacist rounded dose per procedure. New Bag 11/20/2022 12:11 PM EDT 900 mg 816 mL/hr documented in this encounter Care Teams Quilting Machine Operator Relationship Specialty Start Date End Date None None PCP - General 04/03/22 04/24/23 documented as of this encounter
--- OUTSIDE RECORDS SUMMARY | 2023-09-15 02:20 | XMS_ITS | Encounter Summary ---
Author Organization [facility] Address [facility] [place] [address] Care Team Providers Care Creel Selector Name Role Phone None Primary Care Provider Unavailabl e Reason for Visit * Reason Comments Chemotherapy C2D1 Pemetrexed, Car boplatin * Treatment/Therapy Plan Authorization (Routine) - Authorized [...] 10MG, INJECTION (ALIMTA) Cody Frazier MD [address] [place] [address] [place] [address] Cody Frazier MD [address] [place] [address] [place] [address] Referral ID Status Reason Start Date Expiration Date V isits Requested Visits Authorized [id number] Authorized 02/10/2022 08/10/2023 1 103 Encounter Details Date Type Department Care Team (Late st Contact Info) Description 10/28/2022 10:30 AM EDT Infusion Hematology Oncology at [address] [phone] Malignant neoplasm of lower lobe, right bronchus [...] Progress Notes * Mohini Caal RN - 10/28/2022 10:30 AM EDT INFUSION THERAPY ADMINISTRATION NOTES DIAGNOSIS: NSCLC CYCLE #: 2, Day 1 REASON FOR VISIT: Carbo/Pemetrexed SUBJECTIVE: Alexis offers no complaints, ready for treatment. OBJECTIVE: LAB DATA: completed 10/28 at [facility] IV ACCESS: PIV Pre administration: Chemotherapy orders independently verified for drug name, route, and dosage per patient's height, weight and BSA by Mohini Caal, PATRICIA and Staff Pharmacist(s). REACTIONS (DESCRIPTION, TIME, INTERVENTION AND EFFECTIVENESS) none ASSESSMENT: Alexis was awake, alert and tolerated treatment well. PIV discontinued prior to dismissal. PLAN: Return to clinic per plan. documented in this encounter Plan of Treatment Upcoming Encounters Date Type Department Care Team (Late st Contact Info) Description 09/22/2023 2:30 PM EDT Office Visit Hematology/Oncology at [address] [phone] Cody Frazier MD [facility] HEMATOLOGY [place] [address] documented as of this encounter Visit Diagnoses [...] over 2 Minutes, ONCE, 1 dose, On Fri10/28/22 at 1130, Alternative administration of IV push over 2 minutes is a recommendation from the back roller. Administer prior to chemotherapy., Routine Given 10/28/2022 11:44 AM EDT 130 mg CARBOplatin (Paraplatin) 434 mg in dextrose 5% 293.4 mL infusion 434 mg (Target AUC = 4), Intravenous, ONCE, 1 dose, On Fri10/28/22 at 1230, Administer over 30 Minutes, Warning Vesicant/Irritant Medication New Bag 10/28/2022 12:44 PM EDT 434 mg 586.8 mL/hr dexAMETHasone (Decadron) tablet 10 mg 10 mg, Oral, ONCE, 1 dose, On Fri10/28/22 at 1130, Administer prior to chemotherapy, Routine Given 10/28/2022 11:38 AM EDT 10 mg palonosetron (Aloxi) (0.05 mg/mL) injection 0.25 mg 0.25 mg, Intravenous, ONCE, 1 dose, On Fri10/28/22 at 1130, Administer over 30 seconds., Routine Given 10/28/2022 11:45 AM EDT 0.25 mg PEMEtrexed disodium (Alimta) 800 mg in sodium chloride 0.9% 132 mL infusion 800 mg, Intravenous, ONCE, 1 dose, On 10/28/22 at 1230, Administer over 10 Minutes, Dose Ordered = 870 mg (500 mg/m2). Pharmacist rounded dose per procedure. New Bag 10/28/2022 12:27 PM EDT 800 mg 792 mL/hr documented in this encounter Care Teams Creel Selector Relationship Specialty Start Date End Date None None PCP - General 04/03/22 04/24/23 documented as of this encounter
--- OUTSIDE RECORDS SUMMARY | 2023-09-15 02:20 | XMS_ITS | Encounter Summary ---
Author Organization [facility] Address [facility] [place] [address] Care Team Providers Care Patient Access Coordinator Name Role Phone None Primary Care Provider Unavailabl e Reason for Visit * Reason Comments Chemotherapy N5E1-Eesed/Pemetrexe d * Treatment/Therapy Plan Authorization (Routine) - [...] PEMETREXED, 10MG, INJECTION (ALIMTA) Cody Frazier MD [address] [place] [address] [place] [address] Cody Frazier MD [address] [place] [address] [place] [address] Referral ID Status Reason Start Date Expiration Date V isits Requested Visits Authorized [id number] Authorized 02/10/2022 08/10/2023 1 103 Encounter Details Date Type Department Care Team (Late st Contact Info) Description 09/16/2022 9:00 AM EDT Infusion Hematology Oncology at [address] [phone] Malignant neoplasm of lower lobe, [...] Sign Reading Time Taken Comments Blood Pressure 145/90 09/16/2022 8:23 AM EDT Pulse 88 09/16/2022 8:23 AM EDT Temperature 36.9 ??C (98.4 ??F) 09/16/2022 8:23 AM ED T Respiratory Rate 18 09/16/2022 8:23 AM EDT Oxygen Saturation 95% 09/16/2022 8:23 AM EDT Inhaled Oxygen Concentration - - Weight 60.8 kg (134 lb) 09/16/2022 8:23 AM EDT Height 180.2 cm (5' 10.95) 09/16/2022 8:23 AM E DT Body Mass Index 18.72 09/16/2022 8:23 AM EDT documented in this encounter Progress Notes * SanMelina Goodman RN - 09/16/2022 9:00 AM EDT INFUSION THERAPY ADMINISTRATION NOTES DIAGNOSIS: NSCLC CYCLE #: 1, Day 1 REASON FOR VISIT: Carbo/Pemetrexed SUBJECTIVE: Alexis offers no complaints, ready for treatment. OBJECTIVE: Ready to treat. LAB DATA: WDL for today's treatment IV ACCESS: PIV Pre administration: Chemotherapy orders independently verified for drug name, route, and dosage per patient's height, weight and BSA by Melina Grant RN and Staff Pharmacist(s). REACTIONS (DESCRIPTION, TIME, INTERVENTION AND EFFECTIVENESS) none ASSESSMENT: Alexis was awake, alert and tolerated treatment well. PIV discontinued prior to dismissal. PLAN: Return to clinic per plan. documented in this encounter Plan of Treatment Upcoming Encounters Date Type Department Care Team (Late st Contact Info) Description 09/22/2023 2:30 PM EDT Office Visit Hematology/Oncology at [address] [phone] Cody Frazier MD [facility] DR HEMATOLOGY [place] [address] documented as of this encounter Visit Diagnoses [...] over 2 Minutes, ONCE, 1 dose, On Fri09/16/22 at 0930, Alternative administration of IV push over 2 minutes is a recommendation from the economic geographer. Administer prior to chemotherapy., Routine Given 09/16/2022 10:00 AM EDT 130 mg CARBOplatin (Paraplatin) 404 mg in dextrose 5% 290.4 mL infusion 404 mg (Target AUC = 4), Intravenous, ONCE, 1 dose, On Fri09/16/22 at 1030, Administer over 30 Minutes, Warning Vesicant/Irritant Medication New Bag 09/16/2022 10:51 AM EDT 404 mg 580.8 mL/hr cyanocobalamin (Vitamin B-12) (1,000 mcg/mL) injection 1,000 mcg 1,000 mcg, Subcutaneous, ONCE, 1 dose, On Fri09/16/22 at 0930, Administer prior to PEMEtrexed. Recommended dose is 1,000 mcg every 9 weeks. Confirm last date of Vitamin B12 administration., Routine Given 09/16/2022 10:06 AM EDT 1,000 mcg Right Arm dexAMETHasone (Decadron) tablet 10 mg 10 mg, Oral, ONCE, 1 dose, On Fri09/16/22 at 0930, Administer prior to chemotherapy, Routine Given 09/16/2022 10:05 AM EDT 10 mg palonosetron (Aloxi) (0.05 mg/mL) injection 0.25 mg 0.25 mg, Intravenous, ONCE, 1 dose, On Fri09/16/22 at 0930, Administer over 30 seconds., Routine Given 09/16/2022 9:59 AM EDT 0.25 mg PEMEtrexed disodium (Alimta) 800 mg in sodium chloride 0.9% 132 mL infusion 800 mg, Intravenous, ONCE, 1 dose, On Fri09/16/22 at 1030, Administer over 10 Minutes, Dose Ordered = 870 mg (500 mg/m2). Pharmacist rounded dose per procedure. New Bag 09/16/2022 10:28 AM EDT 800 mg 792 mL/hr documented in this encounter Care Teams Patient Access Coordinator Relationship Specialty Start Date End Date None None PCP - General 04/03/22 04/24/23 documented as of this encounter
--- OUTSIDE RECORDS SUMMARY | 2023-09-15 02:20 | XMS_ITS | Encounter Summary ---
Author Organization [facility] Address [facility] [place] [address] Care Team Providers Care Restaurant Busser Name Role Phone None Primary Care Provider Unavailabl e Encounter Details Date Type Department Care Team (Late st Contact Info) Description 03/03/2023 3:00 PM EST Ancillary Procedure Radiology Library at [facility] [place] [phone] Cody Frazier MD [facility] DR HEMATOLOGY [place] [address] Social History Tobacco Use Types Packs/Day Years [...] PM EDT Office Visit Hematology/Oncology at [address] [phone] Cody Frazier MD [facility] DR HEMATOLOGY [place] [address] documented as of this encounter Procedures Procedure Name Priority Date/Time Associated Diagnosis Comments FILM LIBRARY STORAGE ONLY CT CHEST Routine 03/03/2023 2:57 PM EST documented in this encounter Results * Film Library- Storage Only CT Chest (03/03/2023 2:57 PM EST) Narrative [facility] - 03/03/2023 2:57 PM EST This exam is auto-finalizing. It's purpose is for storage only. Cody Frazier MD [facility] [place]M LIBRARY ORD ERABLES [place], [place] documented in this encounter Visit Diagnoses Not on filedocumented in this encounter Care Teams Restaurant Busser Relationship Specialty Start Date End Date None None PCP - General 04/03/22 04/24/23 documented as of this encounter
--- OUTSIDE RECORDS SUMMARY | 2023-09-15 02:20 | XMS_ITS | Encounter Summary ---
Author Organization [facility] Address [facility] [place] [address] Care Team Providers Care Precipitator Operator Name Role Phone None Primary Care Provider Unavailabl e Encounter Details Date Type Department Care Team (Late st Contact Info) Description 03/10/2023 10:30 AM EST Office Visit Hematology/Oncology at [address] [phone] Cody Frazier MD [facility] DR HEMATOLOGY [place] [address] Bea Grimes, IGNACIA [address] [place] [address] DR HEMATOLOGY AND ONCOLOGY [place], [place] [id number] Malignant neoplasm of lower lobe, right bronchus or lung; Secondary malignant neoplasm of bone; Neoplasm related pain; Weight loss Social History Tobacco Use Types Packs/Day Years [...] slept in a intermediate (including now)? No 07/16/2021 Sex and Gender Information Value Date Recorded Sex Assigned at Not on file Gender Identity Not on file Sexual Orientation Not on file documented as of this encounter Last Filed Vital Signs Vital Sign Reading Time Taken Comments Blood Pressure 143/89 03/10/2023 10:07 AM EST Pulse 96 03/10/2023 10:07 AM EST Temperature 36.7 ??C (98 ??F) 03/10/2023 10: 07 AM EST Respiratory Rate 18 03/10/2023 10:0 7 AM EST Oxygen Saturation 96% 03/10/2023 10: 07 AM EST Inhaled Oxygen Concentration - - Weight 66.1 kg (145 lb 12.8 oz) 024 10:07 AM EST Height 180.2 cm (5' 10.95) 03/10/2023 10:07 AM EST Body Mass Index 20.37 03/10/2023 10:07 AM EST documented in this encounter Progress Notes * Cody Frazier MD - 03/10/2023 10:30 AM EST Images from the original note were not included. Hematology & Medical Oncology [address] [address] Alexis Pelayo is being seen for the evaluation of lung cancer. Assessment & Plan: Alexis Pelayo is a 52 y.o. male patient with a past medical history significant for COPD, a 60-fgoy-arlm smoking history, chronic migraine headaches diagnosed with [...] - Most recent CT done on 03/03/23 personally reviewed with continued improvement from start of carbo/pemetrexed. - He has not had therapy in just over a month due to COPD exacerbation/pneumonia, and the holidays. He says he is ready to resme treatment at this time. - Labs and toxicities assessed and acceptable for ongoing treatment. - Continue maintenance pemetrexed - Restage in April with CT Chest # Cancer related Pain - using MS Contin 100 mg TID. - Change to hydromorphone for breakthrough has been helpful, - Still holding off on palliative care referral for now at his [facility] but if further increases areneeded would [...] to normal. 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 We discussed that this may be helpful in managing his COPD as it evolves, but he is not interested in a referral at this time. FEN - improved appetite on marinol and weight has improved since the Summer. Cody Frazier MD, MS 03/10/2023 Medical Oncology & Hematology [facility] [place] CC: HPI/Interval History/Subjective: Last seen 02/12/2023 I'm ready to go I needed a break Lung felt bad ([facility] and eating better. Marinol helps Right hand having a lot of issues where the muscle spasms. Has to wait until it relieves. Has bad arthritis. No fevers (nevers gets fevers he notes). No infections since having issues at [facility]. Heat seems to be a trigger for breathing so he keeps his house pretty cool.. Alexis is here by himself today. He [...] Social History/Support Network: Home situation: From the [place]. Came up here because of family Has a sister Kristine Brantley who lives [place] who is his DPOA. 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 The biopsy may not be account representative of the clinical mass lesion. Step levels were examine .09.01 Due to progression started carboplatin/pemetrexed 11.12.22 Response to treatment on restage after 2 cylces 10.11 C3 12.09. C4 12.23.23 1..24 Continued response on scan 10/28/2022 12:44 PM 11/20/2022 10:45 AM 11/20/2022 [...] Amitriptyline Patient reports agitation and insomnia Medications 03/10/23 1010 Medication Sig Taking? HYDROmorphone (Dilaudid) 2 mg [...] Exam: Wt Readings from Last 3 Encounters: 03/10/23 66.1 kg (145 lb 12.8 oz) 02/12/23 66.7 kg (147 lb) 12/30/22 64.4 kg (142 lb) Temp Readings from Last 3 Encounters: 03/10/23 36.7 ??C (98 ??F) (Temporal) 02/12/23 36.8 ??C (98.2 ??F) (Temporal) 12/30/22 37.1 ??C (98.8 ??F) (Temporal) BP Readings from Last 3 Encounters: 03/10/23 143/89 02/12/23 (!) 154/94 12/30/22 (!) 156/95 Pulse Readings from Last 3 Encounters: 03/10/23 96 02/12/23 97 12/30/22 (!) 113 Body surface area is 1.82 meters squared. Wt Readings from Last 3 Encounters: 03/10/23 66.1 kg (145 lb 12.8 oz) 02/12/23 66.7 kg (147 lb) 12/30/22 64.4 kg (142 lb) KPS Score ECOG Grade Definition 90-100 [...] Judgment: Judgment normal. Review of Laboratory Data: 03.10.23 White blood cell count 7.15 hemoglobin [...] 8.3, albumin 4.0,TSH 2.44, Free T4 1.13 11.. White blood cell count 5.91 hemoglobin 11.8 platelet count 475,000 from 450,000 absolute neutrophilcount 3.87 Sodium 133 from 132 potassium 4.5 BUN 4 creatinine 1.0 which is stable glucose 105 calcium 9.5 magnesium 2.1 total bilirubin 0.2 AST 15 ALT 15 alk phos 88 albumin 3.7 TSH 2.28 Free T41.28 12/09/22 WBC 4.99, H/H 11.2/34.8, plt 450, [...] PM EDT Office Visit Hematology/Oncology at [address] [phone] Cody Frazier MD [facility] DR HEMATOLOGY [place] [address] documented as of this encounter Visit Diagnoses Diagnosis Malignant neoplasm of lower lobe, right bronchus or lung 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
--- OUTSIDE RECORDS SUMMARY | 2023-09-15 02:20 | XMS_ITS | Encounter Summary ---
Author Organization [facility] Address [facility] [place] [address] Care Team Providers Care Seat Coverer Name Role Phone None Primary Care Provider Unavailabl e Encounter Details Date Type Department Care Team (Late st Contact Info) Description 09/11/2022 Orders Only Hematology Oncology at [address] [phone] Deanne Nelson, RN Secondary malignant [...] 2:30 PM EDT Office Visit Hematology/Oncology at [address] [phone] Cody Frazier MD [facility] DR [place] [address] documented as of this encounter Visit Diagnoses Diagnosis 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
--- OUTSIDE RECORDS SUMMARY | 2023-09-15 02:20 | XMS_ITS | Encounter Summary ---
Author Organization [facility] Address [facility] [place] [address] Care Team Providers Care Spa Host Name Role Phone None Primary Care Provider Unavailabl e Reason for Visit * Reason Onset Date Comments Appointment 10/07/2022 Cancelled today Encounter Details Date Type Department Care Team (Late st Contact Info) Description 10/07/2022 Telephone Hematology/Oncology at [address] [phone] Deanne Nelson, RN Appointment (Cancelled today) Social History Tobacco Use Types Packs/Day Years [...] Telephone Encounter - Deanne Nelson RN - 10/07/2022 9:55 AM EDT ----- Message from Kirstin Peña sent at 10/07/2022 8:22 AM EDT ----- Regarding: canceled appointment Alexis called and said he woke up with a sore throat. He doesn't feel that it would be medley to comein and share his germs with everyone, so he will stay home today. RN call to pt: States he has a sore throat, runny nose and headache. Has not left the house so doesn't not feel he needs to test for COVID. Wants to bump his appts out 2-3 weeks so his immune system can catch up. I tole him we could follow up on 10/28 with labs at [facility] at 0900, appt with Dr. Frazier at 1000 and infusion to follow. He agreed with this plan and will call if he needs anything in the interim. documented in this encounter Plan of Treatment Upcoming Encounters Date Type Department Care Team (Late st Contact Info) Description 09/22/2023 2:30 PM EDT Office Visit Hematology/Oncology at [address] [phone] Cody Frazier MD [facility] DR HEMATOLOGY [place] [address] documented as of this encounter Visit Diagnoses Not on filedocumented in this encounter Care Teams Spa Host Relationship Specialty Start Date End Date None None PCP - General 04/03/22 04/24/23 documented as of this encounter
--- OUTSIDE RECORDS SUMMARY | 2023-09-15 02:20 | XMS_ITS | Encounter Summary ---
Author Organization [facility] Address [facility] [place] [address] Care Team Providers Care Cylinder Press Operator Helper Name Role Phone None Primary Care Provider Unavailabl e Reason for Visit * Reason Comments Chemotherapy C4D1 Pemetrexed, Car boplatin * Treatment/Therapy Plan Authorization [...] 10MG, INJECTION (ALIMTA) Cody Frazier MD [address] [place] [address] DR HEMATOLOGY [place] [address] Cody Frazier MD [address] [place] [address] DR HEMATOLOGY [place] [address] Referral ID Status Reason Start Date Expiration Date V isits Requested Visits Authorized [id number] Authorized 02/10/2022 08/10/2023 1 103 Encounter Details Date Type Department Care Team (Late st Contact Info) Description 12/09/2022 11:00 AM EDT Infusion Hematology Oncology at [address] [phone] Malignant neoplasm of lower lobe, [...] Progress Notes * Mohini Caal RN - 12/09/2022 11:00 AM EDT INFUSION THERAPY ADMINISTRATION NOTES DIAGNOSIS: NSCLC CYCLE #: 4, Day 1 REASON FOR VISIT: Carbo/Pemetrexed SUBJECTIVE: Alexis offers no complaints, he met with Bea Maurice APRN prior to infusion, ready for treatment. OBJECTIVE: LAB DATA: completed today at [facility] IV ACCESS: PIV Pre administration: Chemotherapy [...] PM EDT Office Visit Hematology/Oncology at [address] [phone] Cody Frazier MD [facility] DR HEMATOLOGY AND [place] [address] documented as of this encounter [...] over 2 Minutes, ONCE, 1 dose, On Fri12/09/22 at 1115, Alternative administration of IV push over 2 minutes is a recommendation from the automotive production worker. Administer prior to chemotherapy., Routine Given 12/09/2022 11:34 AM EDT 130 mg CARBOplatin (Paraplatin) 434 mg in dextrose 5% 293.4 mL infusion 434 mg (Target AUC = 4), Intravenous, ONCE, 1 dose, On Fri12/09/22 at 1215, Administer over 30 Minutes, Warning Vesicant/Irritant Medication New Bag 12/09/2022 12:20 PM EDT 434 mg 586.8 mL/hr dexAMETHasone (Decadron) tablet 10 mg 10 mg, Oral, ONCE, 1 dose, On Fri12/09/22 at 1115, Administer prior to chemotherapy, Routine Given 12/09/2022 11:27 AM EDT 10 mg palonosetron (Aloxi) (0.05 mg/mL) injection 0.25 mg 0.25 mg, Intravenous, ONCE, 1 dose, On Fri12/09/22 at 1115, Administer over 30 seconds., Routine Given 12/09/2022 11:35 AM EDT 0.25 mg PEMEtrexed disodium (Alimta) 900 mg in sodium chloride 0.9% 136 mL infusion 900 mg, Intravenous, ONCE, 1 dose, On 12/09/22 at 1215, Administer over 10 Minutes New Bag 12/09/2022 12:00 PM EDT 900 mg 816 mL/hr documented in this encounter Care Teams Cylinder Press Operator Helper Relationship Specialty Start Date End Date None None PCP - General 04/03/22 04/24/23 documented as of this encounter
--- OUTSIDE RECORDS SUMMARY | 2023-09-15 02:20 | XMS_ITS | Encounter Summary ---
Author Organization [facility] Address [facility] [place] [address] Care Team Providers Care Contract Loader Name Role Phone None Primary Care Provider Unavailabl e Reason for Visit * Reason Onset Date Comments Follow-up 01/20/2023 Check in about w anting to cancel today's apt Encounter Details Date Type Department Care Team (Late st Contact Info) Description 01/20/2023 Telephone Hematology/Oncology at [address] [phone] Nathaly Mart RN Follow-up (Check in about wanting to cancel today's apt) Social History Tobacco Use Types Packs/Day Years [...] encounter Miscellaneous Notes * Telephone Encounter - Nathaly Mart RN - 01/20/2023 12:55 PM EST Called Alexis to check in about canceling today's apt. He Report that he was at [facility] for COPD exacerbation and pneumonia . They sent him home with Antibiotics and a steroid taper. He reports his breathing is getting better and he was not discharged with oxygen. He didn't think he could makeit in with the snow and not quite feeling back to normal yet. He request to skip this apt for a little break and return after the holidays. He is scheduled 02/11/23, reviewed and approved with providerteam. documented in this encounter Plan of Treatment Upcoming Encounters Date Type Department Care Team (Late st Contact Info) Description 09/22/2023 2:30 PM EDT Office Visit Hematology/Oncology at [address] [phone] Cody Frazier MD [facility] HEMATOLOGY [place] [address] documented as of this encounter Visit Diagnoses Not on filedocumented in this encounter Care Teams Contract Loader Relationship Specialty Start Date End Date None None PCP - General 04/03/22 04/24/23 documented as of this encounter
--- OUTSIDE RECORDS SUMMARY | 2023-09-15 02:20 | XMS_ITS | Encounter Summary ---
Author Organization [facility] Address [facility] [place] [id number] Care Team Providers Care Pari Mutuel Ticket Cashier Name Role Phone None Primary Care Provider Unavailabl e Encounter Details Date Type Department Care Team (Latest Contact Info) Description 09/16/2022 Travel Social History Tobacco Use Types Packs/Day [...] 2:30 PM EDT Office Visit Hematology/Oncology at [address] [phone] [facility] DR [place] [address] documented as of this encounter Visit Diagnoses Not on filedocumented in this encounter Care Teams Pari Mutuel Ticket Cashier Relationship Specialty Start Date End Date None None PCP - General 04/03/22 04/24/23 documented as of this encounter
--- OUTSIDE RECORDS SUMMARY | 2023-09-15 02:20 | XMS_ITS | Encounter Summary ---
Author Organization [facility] Address [facility] [place] [address] Care Team Providers Care Plywood Layup Line Core Layer Name Role Phone None Primary Care Provider Unavailabl e Encounter Details Date Type Department Care Team (Late st Contact Info) Description 01/07/2023 Orders Only Hematology/Oncology at [address] [phone] Bandar Dillard, RN Social History Tobacco Use Types Packs/Day [...] 2:30 PM EDT Office Visit Hematology/Oncology at [address] [phone] Cody Frazier MD [facility] DR HEMATOLOGY [place] [address] documented as of this encounter Visit Diagnoses Not on filedocumented in this encounter Care Teams Plywood Layup Line Core Layer Relationship Specialty Start Date End Date None None PCP - General 04/03/22 04/24/23 documented as of this encounter
--- OUTSIDE RECORDS SUMMARY | 2023-09-15 02:20 | XMS_ITS | Encounter Summary ---
Author Organization [facility] Address [facility] [place] [id number] Care Team Providers Care Vending Service Technician Name Role Phone None Primary Care Provider Unavailabl e Encounter Details Date Type Department Care Team (Late st Contact Info) Description 11/20/2022 Notes Only Hematology/Oncology at [address] [phone] Lorraine Huerta, [facility] OFFICE OF CARE MANAGEMENT Social History Tobacco [...] Progress Notes * Lorraine Huerta MSW - 11/20/2022 11:02 AM EDT Follow up with Alexis during his infusion visit today. Alexis indicated he is doing well overall. He received good news from his recent scan. He is managing day to day at home. He has been cooking for family meals and is enjoying spending time with his extended family. Alexis did not identify any new needs today. Offered support. Will continue to follow for support and resources. Brief assessment Supportive Counseling documented in this encounter Plan of Treatment Upcoming Encounters Date Type Department Care Team (Late st Contact Info) Description 09/22/2023 2:30 PM EDT Office Visit Hematology/Oncology at [address] [phone] Cody Frazier MD [facility] [place] [address] documented as of this encounter Visit Diagnoses Not on filedocumented in this encounter Care Teams Vending Service Technician Relationship Specialty Start Date End Date None None PCP - General 04/03/22 04/24/23 documented as of this encounter
--- OUTSIDE RECORDS SUMMARY | 2023-09-15 02:20 | XMS_ITS | Encounter Summary ---
Author Organization [facility] Address [facility] [place] [address] Care Team Providers Care Voltmeter Operator Name Role Phone None Primary Care [...] PEMETREXED, 10MG, INJECTION (ALIMTA) Cody Frazier MD [address] [place] [address] DR [place] [address] Cody Frazier MD [address] [place] [address] DR [place]EM[place] [address] Referral ID Status Reason Start Date Expiration Date V isits Requested Visits Authorized [id number] Authorized 02/10/2022 08/10/2023 1 103 Encounter Details Date Type Department Care Team (Late st Contact Info) Description 12/30/2022 11:00 AM EST Infusion Hematology Oncology at [address] [phone] Malignant neoplasm of lower lobe, [...] Progress Notes * Dedra Son, RN - 12/30/2022 11:00 AM EST INFUSION THERAPY ADMINISTRATION NOTES DIAGNOSIS: NSCLC CYCLE #: 5, Day 1 REASON FOR VISIT: Pemetrexed SUBJECTIVE: Alexis offers no complaints, he met with Bea Maurice APRN prior to infusion, ready for treatment. OBJECTIVE: LAB DATA: completed today at [facility] IV ACCESS: PIV Pre administration: Chemotherapy orders independently verified for drug name, route, and dosage per patient's height, weight and BSA by DEDRA SON RN and Staff Pharmacist(s). REACTIONS (DESCRIPTION, TIME, INTERVENTION AND EFFECTIVENESS) none ASSESSMENT: Alexis was awake, alert and tolerated treatment well. PIV discontinued prior to dismissal. PLAN: Return to clinic per plan. documented in this encounter Plan of Treatment Upcoming Encounters Date Type Department Care Team (Late st Contact Info) Description 09/22/2023 2:30 PM EDT Office Visit Hematology/Oncology at [address] [phone] Cody Frazier MD [facility] DR HEMATOLOGY [place] [address] documented as of this encounter Visit Diagnoses [...] over 2 Minutes, ONCE, 1 dose, On Fri12/30/22 at 1145, Alternative administration of IV push over 2 minutes is a recommendation from the boat carpenter mechanic. Administer prior to chemotherapy., Routine Given 12/30/2022 11:41 AM EST 130 mg dexAMETHasone (Decadron) tablet 10 mg 10 mg, Oral, ONCE, 1 dose, On Fri12/30/22 at 1145, Administer prior to chemotherapy, Routine Given 12/30/2022 11:41 AM EST 10 mg palonosetron (Aloxi) (0.05 mg/mL) injection 0.25 mg 0.25 mg, Intravenous, ONCE, 1 dose, On Fri12/30/22 at 1145, Administer over 30 seconds., Routine Given 12/30/2022 11:41 AM EST 0.25 mg PEMEtrexed disodium (Alimta) 900 mg in sodium chloride 0.9% 136 mL infusion 900 mg, Intravenous, ONCE, 1 dose, On Fri12/30/22 at 1245, Administer over 10 Minutes New Bag 12/30/2022 12:34 PM EST 900 mg 816 mL/hr documented in this encounter Care Teams Voltmeter Operator Relationship Specialty Start Date End Date None None PCP - General 04/03/22 04/24/23 documented as of this encounter
--- OUTSIDE RECORDS SUMMARY | 2023-09-15 02:21 | XMS_ITS | Encounter Summary ---
Author Organization [facility] Address [facility] [place] [address] Care Team Providers Care Tail Board Man Name Role Phone None Primary Care Provider Unavailabl e Reason for Visit * Treatment/Therapy Plan Authorization (Routine) - Closed Specialty Diagnoses / Procedures Referred By Kristan t Referred To Contact Hematology and Oncology Diagnoses Malignant neoplasm of lower lobe, right bronchus or lung Secondary malignant neoplasm of bone Medication management Procedures TC PALONOSETRON HCL, 25MCG, INJECTION (ALOXI) TC APREPITANT, 1 MG, INJECTION TC PACLITAXEL PROTEIN-BOUND PARTICLES, 1MG, INJECTION TC CARBOPLATIN, 50MG, INJECTION (PARAPLATIN) J2469 palonosetron (Aloxi) 0.25 MG J0185 aprepitant (CINVANTI) 130 MG J9271 pembrolizumab (Keytruda) 200 MG J9264 ABRAXANE 177 MG J9045 CARBOplatin (Paraplatin) AUC = 5 Cody Frazier MD [address] [place] [address] [place] [address] Cody Frazier MD [address] [place] [address] [place] [address] Referral ID Status Reason Start Date Expiration Date Visits Re quested Visits Authorized [id number] Closed 02/10/2022 2022 99 99 Encounter Details Date Type Department Care Team (Late st Contact Info) Description 09/02/2022 3:00 PM EDT Infusion Hematology Oncology at [address] [phone] Malignant neoplasm of lower lobe, right bronchus [...] slept in a long-term (including now)? No 07/16/2021 Sex and Gender Information Value Date Recorded Sex Assigned at Not on file Gender Identity Not on file Sexual Orientation Not on file documented as of this encounter Progress Notes * Dedra Son, RN - 09/02/2022 3:00 PM EDT INFUSION THERAPY ADMINISTRATION NOTES DIAGNOSIS: NSCLC CYCLE #: 16, Day 1 REASON FOR VISIT: Pembrolizumab SUBJECTIVE: Alexis offers no complaints, he met with Dr. Frazier today prior to infusion, ready for treatment. OBJECTIVE: Seen by provider. Ready to treat. LAB DATA: WDL for today's limits IV ACCESS: PIV Pre administration: Chemotherapy orders independently verified for drug name, route, and dosage per patient's height, weight and BSA by DEDRA SON RN and Staff Pharmacist(s). REACTIONS (DESCRIPTION, TIME, INTERVENTION AND EFFECTIVENESS) none ASSESSMENT: Alexis was awake, alert and tolerated treatment well. PIV discontinued prior to dismissal. PLAN: Return to clinic per plan. * Dedra Son, RN - 09/02/2022 3:00 PM EDT INFUSION THERAPY ADMINISTRATION NOTES DIAGNOSIS: NSCLC CYCLE #: 16, Day 1 REASON FOR VISIT: Pembrolizumab SUBJECTIVE: Alexis offers no complaints, he met with Dr. Frazier today prior to infusion, ready for treatment. OBJECTIVE: Seen by provider. Ready to treat. LAB DATA: WDL for today's limits IV ACCESS: PIV Pre administration: Chemotherapy orders [...] 2:30 PM EDT Office Visit Hematology/Oncology at [address] [phone] Cody Frazier MD [facility] DR [place] [address] documented as of this encounter Visit Diagnoses [...] MAR Action Action Date Dose Rate Site pembrolizumab (Keytruda) 200 mg in sodium chloride 0.9% 108 mL infusion 200 mg, Intravenous, ONCE, 1 dose, On 09/02/22 at 1615, Administer over 30 Minutes, Flush line with NS after each dose., This agent is restricted to outpatient use. Is this drug being given as an outpatient? Yes New Bag 09/02/2022 3:21 PM EDT 200 mg 216 mL/hr documented in this encounter Care Teams Tail Board Man Relationship Specialty Start Date End Date None None PCP - General 04/03/22 04/24/23 documented as of this encounter
--- OUTSIDE RECORDS SUMMARY | 2023-09-15 02:21 | XMS_ITS | Encounter Summary ---
Author Organization [facility] Address [facility] [place] [address] Care Team Providers Care Manager Community Development Name Role Phone None Primary Care Provider Unavailabl e Encounter Details Date Type Department Care Team (Late st Contact Info) Description 07/01/2022 9:15 PM EDT Ancillary Procedure Radiology Library [place] [facility] [place] [phone] Bea Grimes APRN [address] [place] [address] DR [place] [address] Social History Tobacco Use Types [...] PM EDT Office Visit Hematology/Oncology at [address] [phone] Cody Frazier MD [facility] DR HEMATOLOGY [place] [address] documented as of this encounter Procedures Procedure Name Priority Date/Time Associated Diagnosis Comments FILM LIBRARY STORAGE ONLY CT CHEST Routine 07/01/2022 9:13 PM EDT documented in this encounter Results * Film Library- Storage Only CT Chest (07/01/2022 9:13 PM EDT) Narrative [facility] - 07/01/2022 9:13 PM EDT This exam is auto-finalizing. It's purpose is for storage only. Bea Grimes APRN IMMar[facility] FILM LIBRARY ORDERABLES [place], [place] documented in this encounter Visit Diagnoses Not on filedocumented in this encounter Care Teams Manager Community Development Relationship Specialty Start Date End Date None None PCP - General 04/03/22 04/24/23 documented as of this encounter
--- OUTSIDE RECORDS SUMMARY | 2023-09-15 02:21 | XMS_ITS | Encounter Summary ---
Author Organization [facility] Address [facility] [place] [address] Care Team Providers Care Machine Former Name Role Phone None Primary Care Provider Unavailabl e Encounter Details Date Type Department Care Team (Latest Contact Info) Description 08/28/2022 11:58 AM EDT - 08/28/2022 11:59 PM EDT Hospital Encounter XRay at [address] [place] [phone] Jose Cota MD [facility] [place] [address] Discharge Disposition: Home Social History Tobacco Use [...] Sig Dispensed Refills Start Date End Date omeprazole (PriLOSEC) [address] capsuleIndications:Chan roesophageal [...] mcg into the lungs daily. 01/23/2021 morphine IR (MS IR) 15 mg IR tabletIndications:Ko tavarez malignant neoplasm of bone,Malignant neoplasm of lower lobe, right bronchus or lung Take 1 tablet by mouth 3 times daily as needed for Pain. PRN 60 tablet 08/20/2022 09/11/2022 morphine CR (MS Contin) 100 mg ER tabletIndications:Malig nant neoplasm of lower lobe, right bronchus or lung Take 1 tablet by mouth 3 times daily. 84 tablet 08/05/2022 09/04/2022 droNABinol (Marinol) 10 mg capsuleIndications:Chem otherapy induced nausea and vomiting Take 1 capsule by mouth 2 times daily (before meals). 60 capsule 3 07/10/2022 12/09/2022 mirtazapine (Remeron) 15 mg tablet Take 15 mg by mouth nightly. 03/22/2021 04/23/2023 pregabalin (Lyrica) 50 mg capsule Take 1 capsule by mouth 2 times daily. 60 tablet 9 05/07/2022 12/04/2022 naproxen sodium (ALEVE) 220 mg Capsule Take 1 capsule by mouth every 12 hours. Take with food. 90 capsule 07/05/2021 04/23/2023 Advair Diskus 250-50 mcg/dose Disk with Device Inhale 250 puffs into the lungs 2 times daily. 01/23/2021 04/26/2023 documented as of this encounter Plan of Treatment Upcoming Encounters Date Type Department Care Team (Late st Contact Info) Description 09/22/2023 2:30 PM EDT Office Visit Hematology/Oncology at [address] [phone] Cody Frazier MD [facility] DR [place] [address] documented as of this encounter Procedures Procedure Name Priority Date/Time Associated Diagnosis Comments XR CHEST ONE VIEW Routine 08/28/2022 12: 03 PM EDT documented in this encounter Results * XR Chest One View (08/28/2022 12:03 PM EDT) Anatomical Region Laterality Modality Chest N/A Digital Radiogra phy Impressions 08/28/2022 6:06 PM EDT 1. ??Stable abnormal examination with persistent thick-walled bladder and unchanged perihilar nodular opacities. 2. ??No appreciable pneumothorax. Thank you for letting us participate in the care of this patient. ??If you are a health care provider and have any questions regarding this report, please contact the number below. ??For patients who have questions please contact the health career based intervention coordinator that requested your imaging first. ? Electronically signed by: Karine Seaman MD, [facility] ([phone]), at 08/28/2022 6:06 PM Narrative 08/28/2022 6:06 PM EDT EXAMINATION: XR CHEST ONE VIEW CLINICAL HISTORY: 2 hr post Right lung biopsy. Known bullous disease with air fluid levels in non-biopsied RUL TECHNIQUE: 1 view of the chest COMPARISON: Chest x-ray, most recent from 1013 hours, August 28, [address], most recent from July 01, 2022 FINDINGS: Chronic changes of COPD with multiple large biapical bulla. Largest bullae remains in the right apex with unchanged thick wall and small air-fluid level. Similar appearing apical capping is again noted, also unchanged. A second smaller thick-walled bulla projects in the right hilar region, as well as right perihilar pulmonary opacities, all grossly unchanged from prior study. No pneumothorax or pleural effusion. Cardiac silhouette is stable. No acute osseous findings. Procedure Note Karine Seaman MD - 08/28/2022 EXAMINATION: XR CHEST ONE VIEW CLINICAL HISTORY: 2 hr post Right lung biopsy. Known bullous disease withair fluid levels in non-biopsied RUL TECHNIQUE: 1 view of the chest COMPARISON: Chest x-ray, most recent from 1013 hours, August 28, [address], most recent from July 01, 2022 FINDINGS: Chronic changes of COPD with multiple large biapical bulla. Largestbullae remains in the right apex with unchanged thick wall and small air-fluidlevel. Similar appearing apical capping is again noted, also unchanged. Asecond smaller thick-walled bulla projects in the right hilar region, as well asright perihilar pulmonary opacities, all grossly unchanged from prior study.No pneumothorax or pleural effusion. Cardiac silhouette is stable. No acuteosseous findings. IMPRESSION 1. Stable abnormal examination with persistent thick-walled bladder and unchanged perihilar nodular opacities. 2. No appreciable pneumothorax. Thank you for letting us participate in the care of this patient. If youare a health care provider and have any questions regarding this report,please contact the number below. For patients who have questions please contactthe health career based intervention coordinator that requested your imaging first. Jose Cota MD IMG DX ORDERABLES documented in this encounter Visit Diagnoses Not on filedocumented in this encounter Care Teams Machine Former Relationship Specialty Start Date End Date None None PCP - General 04/03/22 04/24/23 documented as of this encounter
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
--- OUTSIDE RECORDS SUMMARY | 2023-09-15 02:21 | XMS_ITS | Encounter Summary ---
Author Organization [facility] Address [facility] [place] [address] Care Team Providers Care Hospital Wellness Coordinator Name Role Phone None Primary Care Provider Unavailabl e Encounter Details Date Type Department Care Team (Late st Contact Info) Description 09/09/2022 Telephone Hematology and Oncology at [facility] [place] [address] Jag Roberts, RN Social History Tobacco Use Types Packs/Day [...] encounter Miscellaneous Notes * Telephone Encounter - Jag Roberts RN - 09/09/2022 5:57 PM EDT Lab entered in chart and send to MD to review. documented in this encounter Plan of Treatment Upcoming Encounters Date Type Department Care Team (Late st Contact Info) Description 09/22/2023 2:30 PM EDT Office Visit Hematology/Oncology at [address] [phone] Cody Frazier MD [facility] DR [place] [address] documented as of this encounter Procedures Procedure Name Priority Date/Time Associated Diagnosis Comments CBC WITH DIFF EXTERNAL LAB PANEL Routine 09/02/2022 1:19 PM EDT COMPREHENSIVE METABOLIC PANEL Routine 09/02/2022 1:19 PM EDT documented in this encounter Results * (ABNORMAL) External CBC Labs (09/02/2022 1:19 PM EDT) White Blood Cell 13.74(A) 4.4 - 10.8 Red Blood Cell 4.96 4.36 - 5.78 Hemoglobin 13.1(A) 13.5 - 17.5 Hematocrit 40.7 40.0 - 50.0 Platelet 580(A) 130 - 400 Segs Absolute Manual 11.67(A) 1.2 - 6.7 09/02/2022 1:19 PM EDT Historical Provider POINT OF CARE LUIS T ORDERABLES * (ABNORMAL) Comprehensive metabolic panel (non-fasting) (09/02/2022 1:19 PM EDT) Glucose 147(A) 74 - 106 Blood Urea Nitrogen 9 7 - 18 Creatinine 1.2 0.7 - 1.3 Est Glomerular Filtration Rate 73.67 Sodium 131(A) 136 - 145 Potassium 3.7 3.5 - 5.1 Chloride 93(A) 98 - 107 Calcium 9.4 8.5 - 10.1 Protein, Total 9.3(A) 6.4 - 8.2 Albumin 3.3(A) 3.4 - 5 Alkaline Phosphatase 92 46 - 116 Aspartate Aminotransferase 10(A) 15 - 37 Alanine Aminotransferase 9(A) 16 - 63 Magnesium 1.9 1.8 - 2.4 mg/dL Thyroid Stimulating Hormone 0.38 0.36 - 3.74 Free T4 1.11 0.76 - 1.46 Blood 09/02/2022 1:19 PM EDT Historical Provider CHEMISTRY ORDERAB LES documented in this encounter Visit Diagnoses Not on filedocumented in this encounter Care Teams Hospital Wellness Coordinator Relationship Specialty Start Date End Date None None PCP - General 04/03/22 04/24/23 documented as of this encounter
--- OUTSIDE RECORDS SUMMARY | 2023-09-15 02:21 | XMS_ITS | Encounter Summary ---
Author Organization [facility] Address [facility] [place] [address] Care Team Providers Care Demo Specialist Name Role Phone None Primary Care Provider Unavailabl e Encounter Details Date Type Department Care Team (Latest Contact Info) Description 06/19/2022 Travel Social History Tobacco Use Types Packs/Day [...] 2:30 PM EDT Office Visit Hematology/Oncology at [address] [phone] Cody Frazier MD [facility] [address] [place] [address] documented as of this encounter Visit Diagnoses Not on filedocumented in this encounter Care Teams Demo Specialist Relationship Specialty Start Date End Date None None PCP - General 04/03/22 04/24/23 documented as of this encounter
--- OUTSIDE RECORDS SUMMARY | 2023-09-15 02:21 | XMS_ITS | Encounter Summary ---
Author Organization [facility] Address [facility] [place] [address] Care Team Providers Care Soft Shoe Dancer Name Role Phone None Primary Care Provider Unavailabl e Reason for Visit * Reason Onset Date Comments Prior Authorization 06/19/2022 ki Encounter Details Date Type Department Care Team (Late st Contact Info) Description 06/19/2022 Telephone Hematology/Oncology at [address] [phone] Bandar Dillard, operations program manager (ki) Social History Tobacco Use Types Packs/Day Years [...] Miscellaneous Notes * Telephone Encounter - Bandar Dillard, RN - 06/19/2022 1:24 PM EDT Completed PA for marinol medication and faxed to [place] [facility] , fax confirmed. ----- Message from Deanne Nelson RN sent at 06/19/2022 11:37 AM EDT ----- Regarding: PA for marinol Alexis said he got a text from [employer] saying his Marinol needs at PA. Can you look into this? He is anxious to get it. Thanks Deanne documented in this encounter Plan of Treatment Upcoming Encounters Date Type Department Care Team (Late st Contact Info) Description 09/22/2023 2:30 PM EDT Office Visit Hematology/Oncology at [address] [phone] Cody Frazier MD [facility] DR HEMATOLOGY [place] [address] documented as of this encounter Visit Diagnoses Not on filedocumented in this encounter Care Teams Soft Shoe Dancer Relationship Specialty Start Date End Date None None PCP - General 04/03/22 04/24/23 documented as of this encounter
--- OUTSIDE RECORDS SUMMARY | 2023-09-15 02:21 | XMS_ITS | Encounter Summary ---
Author Organization [facility] Address [facility] [place] [id number] Care Team Providers Care Tire Beader Maker Name Role Phone None Primary Care Provider Unavailabl e Encounter Details Date Type Department Care Team (Late st Contact Info) Description 06/19/2022 Notes Only Hematology/Oncology at [address] [phone] Lorraine Huerta, [facility] OF CARE MANAGEMENT Social History Tobacco [...] Progress Notes * Lorraine Huerta MSW - 06/19/2022 11:27 AM EDT Follow up with Alexis during his infusion visit today. He indicated he was found eligible for SSDI and he has received his first check. He is waiting for back payment as they decide when he first became disable. Once he has that he can pay his back rent and will have some financial stability. He indicated he has not felt well with stomach issues. He is managing day to day at home. He has good supports. He is getting back and forth with the [employer] bus. Alexis did not identify any new needs today. Offered support. Will continue to follow as a resource for him. Brief assessment Supportive Counseling documented in this encounter Plan of Treatment Upcoming Encounters Date Type Department Care Team (Late st Contact Info) Description 09/22/2023 2:30 PM EDT Office Visit Hematology/Oncology at [address] [phone] Cody Frazier MD [facility] [place] [address] documented as of this encounter Visit Diagnoses Not on filedocumented in this encounter Care Teams Tire Beader Maker Relationship Specialty Start Date End Date None None PCP - General 04/03/22 04/24/23 documented as of this encounter
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
--- OUTSIDE RECORDS SUMMARY | 2023-09-15 02:21 | XMS_ITS | Encounter Summary ---
Author Organization [facility] Address [facility] [place] [address] Care Team Providers Care Paper Twister Name Role Phone None Primary Care Provider Unavailabl e Encounter Details Date Type Department Care Team (Late st Contact Info) Description 06/10/2022 Orders Only Hematology/Oncology at [address] [phone] Bea Grimes APRN [address] [place] [address] DR [place] [address] Malignant neoplasm of lower lobe, [...] PM EDT Office Visit Hematology/Oncology at [address] [phone] Cody Frazier MD [facility] [place] [address] documented as of this encounter Visit Diagnoses Diagnosis Malignant neoplasm of lower lobe, right bronchus or lung documented in this encounter Care Teams Paper Twister Relationship Specialty Start Date End Date None None PCP - General 04/03/22 04/24/23 documented as of this encounter
--- OUTSIDE RECORDS SUMMARY | 2023-09-15 02:21 | XMS_ITS | Encounter Summary ---
Author Organization [facility] Address [facility] [place] [id number] Care Team Providers Care Shipyard Helper Name Role Phone None Primary Care Provider Unavailabl e Encounter Details Date Type Department Care Team (Late st Contact Info) Description 07/31/2022 Orders Only Hematology/Oncology at [address] [phone] Bandar Dillard, RN Secondary malignant neoplasm of bone; Malignant [...] as of this encounter Progress Notes * Bandar Dillard RN - 07/31/2022 11:53 AM EDT Pt calling for refill of MS KRYSTAL. He was made aware his providers are away but will send to covering provider to review and sign. 

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
--- OUTSIDE RECORDS SUMMARY | 2023-09-15 02:21 | XMS_ITS | Encounter Summary ---
Author Organization [facility] Address [facility] [place] [address] Care Team Providers Care Lathe Sander Name Role Phone None Primary Care Provider Unavailabl e Reason for Visit * Reason Comments Chemotherapy Cycle 13 Day 1 Pembr olizumab * Treatment/Therapy Plan Authorization (Routine) - Closed [...] (Paraplatin) AUC = 5 Cody Frazier MD [address] [place] [address] DR [place] [address] Cody Frazier MD [address] [place] [address] DR HEMATOLOGY [place] [address] Referral ID Status Reason Start Date Expiration Date Visits Re quested Visits Authorized [id number] Closed 02/10/2022 2022 99 99 Encounter Details Date Type Department Care Team (Late st Contact Info) Description 06/19/2022 12:00 PM EDT Infusion Hematology Oncology at [address] [phone] Secondary malignant neoplasm of bone; Medication management; Malignant neoplasm of lower lobe, right bronchus [...] as of this encounter Progress Notes * Deanne Nelson RN - 06/19/2022 12:00 PM EDT INFUSION THERAPY ADMINISTRATION NOTES DIAGNOSIS: NSCLC CYCLE #: 13, Day 1 REASON FOR VISIT: Pembrolizumab SUBJECTIVE: Alexis offers no complaints, he met with Jaycee Grimes today prior to infusion, ready for treatment. OBJECTIVE: Seen by provider. Ready to treat. LAB DATA: WBC 13.71, HGB 12.6, HCT 39.1, PLT 411, ANC 10.82, Na 133, K 3.4, BUN 10, Cr0.9, TSH 1.21, FT4 1.57 IV ACCESS: PIV Pre administration: Chemotherapy orders independently verified for drug name, route, and dosage per patient's height, weight and BSA by Deanne Nelson, RN and Staff Pharmacist(s). REACTIONS (DESCRIPTION, TIME, INTERVENTION AND EFFECTIVENESS) none ASSESSMENT: Alexis was awake, alert and tolerated treatment well. PIV discontinued prior to dismissal. PLAN: Return to clinic in three weeks. 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 Is this drug being given as an outpatient? Yes New Bag 06/19/2022 12:14 PM EDT 200 mg 21 6 mL/hr documented in this encounter Care Teams Lathe Sander Relationship Specialty Start Date End Date None None PCP - General 04/03/22 04/24/23 documented as of this encounter
--- OUTSIDE RECORDS SUMMARY | 2023-09-15 02:21 | XMS_ITS | Encounter Summary ---
Author Organization [facility] Address [facility] [place] [address] Care Team Providers Care Corporate Securities Research Analyst Name Role Phone None Primary Care Provider Unavailabl e Reason for Visit * Reason Onset Date Comments Medication Refill 09/04/2022 [facility] ER Encounter Details Date Type Department Care Team (Late st Contact Info) Description 09/04/2022 Refill Hematology/Oncology at [address] [phone] Cody Frazier MD [facility] [place] [address] Malignant neoplasm of lower lobe, right bronchus [...] Telephone Encounter - Bandar Dillard RN - 09/04/2022 10:07 AM EDT ----- Message from Azra Sky sent at 09/04/2022 10:00 AM EDT ----- Mr. Pelayo called he needs a new rx for morphine 100mg ER sent to [facility] in [facility] Best call back number is [phone] documented in this encounter Plan of Treatment Upcoming Encounters Date Type Department Care Team (Late Contact Info) Description 09/22/2023 2:30 PM EDT Office Visit Hematology/Oncology at [address] [phone] Cody Frazier MD [facility] [address] [place] [address] documented as of this encounter Visit Diagnoses Diagnosis Malignant neoplasm of lower lobe, right bronchus or lung documented in this encounter Care Teams Corporate Securities Research Analyst Relationship Specialty Start Date End Date None None PCP - General 04/03/22 04/24/23 documented as of this encounter
--- OUTSIDE RECORDS SUMMARY | 2023-09-15 02:21 | XMS_ITS | Encounter Summary ---
Author Organization [facility] Address [facility] [place] [address] Care Team Providers Care Environmental Health And Safety Manager Name Role Phone None Primary Care Provider Unavailabl e Encounter Details Date Type Department Care Team (Late st Contact Info) Description 05/07/2022 Telephone Hematology/Oncology at [address] [phone] Bandar Dillard, RN Social History [...] Telephone Encounter - Bandar Dillard RN - 05/07/2022 3:48 PM EDT Alexis called in looking for a refill on his morphine IR (MSIR) 15 mg Tablet and his pregabalin (Lyrica) 50 mg Capsule. He mentioned that his Lyrica is stuck at the [facility] and he has tried to get it and no one seems to be able to help. Called the [facility] pharmacy to follow up on status of Lyrica. They said thier [facility] site has closed down. Advised to cancel that script at [facility] for pt and we will be sending to [facility] in [facility] per pt request. documented in this encounter Plan of Treatment Upcoming Encounters Date Type Department Care Team (Late st Contact Info) Description 09/22/2023 2:30 PM EDT Office Visit Hematology/Oncology at [address] [phone] Cody Frazier MD [facility] [address] [place] [address] documented as of this encounter Visit Diagnoses Not on filedocumented in this encounter Care Teams Environmental Health And Safety Manager Relationship Specialty Start Date End Date None None PCP - General 04/03/22 04/24/23 documented as of this encounter
--- OUTSIDE RECORDS SUMMARY | 2023-09-15 02:21 | XMS_ITS | Encounter Summary ---
Author Organization [facility] Address [facility] [place] [address] Care Team Providers Care Demand Generator Manager Name Role Phone None Primary Care Provider Unavailabl e Reason for Referral * Diagnostic Test (Routine) - Closed Specialty Diagnoses / Procedures [facility] Referred To Contact Radiology Diagnoses Malignant neoplasm of lower lobe, right bronchus or lung Secondary malignant neoplasm of bone Neoplasm related pain Procedures CT Guided Biopsy Lung IR All Biopsy Procedures Cody Frazier MD [facility] [address] [place] [address] [place] [address] Referral ID Status Reason Start Date Expiration Date V isits Requested Visits Authorized [id number] Closed Specialty Service Requested 08/12/2022 02/13/2024 1 1 Reason for Visit * Diagnostic Test (Routine) - Closed Specialty Diagnoses / Procedures [facility] Referred To Contact Radiology Diagnoses Malignant neoplasm of lower lobe, right bronchus or lung Secondary malignant neoplasm of bone Neoplasm related pain Procedures CT Guided Biopsy Lung IR All Biopsy Procedures Cody Frazier MD [facility] [address] [place] [address] [place] [address] Referral ID Status Reason Start Date Expiration Date V isits Requested Visits Authorized [id number] Closed Specialty Service Requested 08/12/2022 02/13/2024 1 1 Encounter Details Date Type Department Care Team (Late st Contact Info) Description 08/28/2022 8:02 AM EDT - 08/28/2022 10:04 AM EDT Hospital Encounter CT Scan at [facility] [place] [address] Cody Frazier MD [facility] HEMATOLOGY AND [place] [address] Pre-op testing; Lung mass; Malignant neoplasm of lower lobe, right bronchus or lung; Secondary malignant neoplasm of bone; Neoplasm related pain Discharge Disposition: Home Social History Tobacco Use [...] Sign Reading Time Taken Comments Blood Pressure 114/84 08/28/2022 9:50 AM EDT Pulse 97 08/28/2022 9:50 AM EDT Temperature 36.6 ??C (97.8 ??F) 08/28/2022 8:35 AM ED T Respiratory Rate 17 08/28/2022 9:50 AM EDT Oxygen Saturation 100% 08/28/2022 9:50 AM EDT Inhaled Oxygen Concentration - - Weight - - Height - - Body Mass Index - - documented in this encounter Discharge Instructions * Discharge Instructions* Anay Valdez RN - 08/28/2022 9:41 AM EDT [facility] Vascular and Interventional Radiology Biopsy Discharge Instructions Lung biopsy: coughing up a little blood is common during the next 24 hours. If large blood clots come up, or if the bleeding gets worse, you should contact us or your doctor immediately. The most common complication is collapse of the lung. The symptoms of lung collapse are increasing pain on breathing, often extending into the shoulder on the side of the biopsy, and increasing difficulty breathing. If these symptoms occur after you leave the hospital, have someone drive you to the nearest Emergency Department as it must be treated promptly or call 911. Activity And Diet: Go home and rest quietly for the remainder of the day. You may resume your normal activities tomorrow. Resume your usual diet after the procedure. Do not drive, sign any important/legal documents, or make any important decisions for 24 hours following sedation medications. When to call your healthcare provider: If you see any redness, swelling or drainage at the biopsy site. If you develop chills. If you have a fever greater than or equal to 101 degrees Fahrenheit. If you develop pain around the biopsy site. Bandage: Check the dressing/bandaid throughout the day for an increase in drainage. Keep the biopsy site dryfor 24 hours. Replace the bandaid as needed. You may shower 24 hours after the biopsy. Medication: DO NOT take aspirin-containing products, ibuprofen, or blood-thinning medication for the next 24 hours unless your clinician says you may do so. Generally you may use acetaminophen as needed for discomfort unless you have liver disease and are instructed not to take acetaminophen. Biopsy Results The results of your biopsy should be available within 5 business days and will be reported to you by your primary women's health care nurse practitioner or the clinician who ordered the biopsy. Please do not call us for results as we will not have them. If you have not been contacted by your clinician within 5 business days you should call that officefor further information. When to call the Interventional Radiology Department: Please call with any questions or concerns. If it is during regular office hours, please call [phone]. If it is after regular office hours, or on weekends or holidays, please call [phone] and ask to speak to the Quality Assurance Clerk pension examiner for Interventional Radiology. You have received medication during your procedure to help lessen anxiety and keep you comfortable.These medications affect judgement and reaction time. We recommend that you do not drive, operate equipment, sign any important documents, or smoke unattended for 24 hours following your procedure. Because of the sedation, be careful on stairs, as you may be unsteady on your feet. You may resume your regular diet as tolerated. IV site -- slight redness, or tenderness is normal, you can use a warm compress. If tenderness and redness increases or foul drainage occurs, please contact your M. D. Revised 11/26/18 documented in this encounter Medications at Time of Discharge Medication Sig Dispensed Refills Start Date End Date omeprazole (PriLOSEC) 40 mg capsuleIndications:Chan roesophageal reflux [...] morphine CR (MS Contin) 100 mg ER tabletIndications:Dee Dee brush neoplasm of lower lobe, right bronchus or [...] 01/23/2021 04/26/2023 documented as of this encounter Progress Notes * Gay Khalil RN - 08/28/2022 10:04 AM EDT Interventional and Vascular Radiology Post-Procedure Call Name: Alexis Pelayo Age: 51 y.o. Sex: Male Date of : 1970 Telephone Number: [phone] (home) Telephone Information: PCP: None None Date/Time of call: August 29, 2022/10:19 AM Procedure: Lung Biopsy Procedural Provider: Cipriano Contact with patient or if not, with whom?:patient Message left on answering machine?: No Provider notified via phone or email if unable to contact pt: No Are you having pain related to your procedure now?: No Lung bx: Any shortness of breath, coughing up blood or chest pain?: No Are you having any swelling or bleeding from the site? No Are you having any other problems related to your procedure?: No Comments: Did you understand the discharge instructions given and do you have any questions?: Yes Comments: Do you have any comments about your Nurse or Provider or the care you received?: Yes Nurse Comments: Patient said thank you for the care he received. * Keon Cui RN - 08/22/2022 9:02 AM EDT [facility] NUR[facility] DATABASE Name: Alexis Pelayo Date of : 1970 AGE: 51 y.o. [address]: [address] [place] [id number] Phone: [phone] (home) Mobile: Telephone Information: Referring Provider: Cody Frazier REASON FOR VISIT: Order Questions Answers Where will study be performed? [facility] Radiology [120] Is the patient on anticoagulant / antiplatelet therapy ? No Reason for exam and clinical history: 51 yo wiith metastatic lung cancer with new right lung infiltrates. ? cancer progression vs possible infection Clinical information / arita questions for radiologist: Please consider CT guided biopsuy of lung lesion in the RUL seen on series 2 image 36. thank you What labs need to be collected during imaging study? Path and micro Planned procedure: Right Lung Nodule Biopsy Labs to be performed day of procedure: PLT; Coags Sedation: Moderate (Conscious sedation) Prophylactic antibiotic : None Contrast: No contrast Additional medications for procedure: Lidocaine Planned access site: Right Lateral or Posterior Thorax Position: Supine Consent: Pending Medications to discontinue (and days held): None Case Urgency:: G2- Elective Outpatient intervention within 8-14 days Allergies Allergen Reactions Magnesium Oxide Rash Amitriptyline Patient reports agitation and insomnia Pertinent PMH: Patient Active Problem List Diagnosis Code Lung mass R91.8 Malignant neoplasm of lower lobe, right bronchus or lung C34.31 Secondary malignant neoplasm of bone C79.51 Medication management Z79.899 Gastroesophageal reflux K21.9 Neoplasm related pain G89.3 Date/Procedure Meds given/comments 06/27/21 Right chest biopsy Fentanyl IV 150 mcg , Versed IV 1.5 mg 08/27/22 R lung bx local Fenatyl 50mcq, 1 versed Arterial Puncture Post Procedure Time of Arterial Puncture: Site: Closure device used: Time sheath removed: Time of hemostasis: Hematoma present?: Anticipated up time: Fistulagrams Post Procedure Site: Time sheath removed: Tip stop time: Tip stop removal: Radial Access: TR Band applied at: # ml's in TR band: Laboratory Results: Lab Results Component Value Date CREATININE 0.9 07/19/2021 Lab Results Component Value Date K 4.8 07/19/2021 Lab Results Component Value Date PLATELET 802 (CRIT) 07/19/2021 documented in this encounter H&P Notes * Jose Cota MD - 08/28/2022 8:48 AM EDT INTERVENTIONAL RADIOLOGY FOCUSED H&P: Procedure: Ct Guided Right Lung biopsy The patient's history and physical exam have been reviewed and completed. There has been no interval change from that of the pre-operative history and physical exam done within the last 30 days. Physical Exam: Cardiovascular: Regular, Normal Pulmonary: Inspiratory and Expiratory wheezes The planned procedure (and sedation plan if appropriate) , its benefits and risks, and alternativeswere discussed with the patient. The patient consented to the procedure. PRE-SEDATION ASSESSMENT: Sedation Plan: moderate (conscious sedation) ASA: 2: Patient with mild systemic disease Mallampati: I: soft palate, fauces, tonsillar pillars and uvula can be seen Confirm NPO status: Yes History of anesthetic complications: No Current medications reviewed: Yes Allergies reviewed: Yes Source Note - Román Mcclellan DO - 08/12/2022 9:23 AM EDT Images from the original note were not included. INTERVENTIONAL RADIOLOGY FOCUSED H&P and PRE-PROCEDURE NOTE: PCP: None Referring Provider: Connie Dominguez Planned Procedure: Planned procedure: Right Lung Nodule Biopsy Procedure Indication: Lung carcinoma. Progression of infiltrative soft tissue in lung on restaging CT. Concern for disease progress versus scarring versus supra-imposed infection. Procedure Request: Procedure request received through the Interventional Radiology [facility] order queue. Presenting Diagnosis/ Complaint: Alexis Pelayo [...] All Biopsy Procedures 06/27/2021 Buddy Dick MD [facility] INTERVENTIONL RAD Medications: Current Outpatient Medications on [...] Not on file Occupational History ??? 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 Tobacco Use ??? 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 Social Determinants [...] 2:30 PM EDT Office Visit Hematology/Oncology at [address] [address] Cody Frazier MD [facility] DR HEMATOLOGY AND ONCOLOGY [place] [id number] Scheduled Orders Name Type Priority Associated Diagnoses Orde r Schedule Platelet count Lab STAT Pre-op testing Lung mass Expected: 08/27/2022, Expires: 08/23/2023 Prothrombin Time Lab STAT Pre-op testing Lung mass Expected: 08/27/2022, Expires: 08/23/2023 documented as of this encounter Procedures Procedure Name Priority Date/Time Associated Diagnosis Comments XR CHEST ONE VIEW Routine 08/28/2022 12: 03 PM EDT XR CHEST ONE VIEW Routine 08/28/2022 10: [address] GUIDED BIOPSY LUNG Routine 08/28/2022 10:00 AM EDT Malignant neoplasm of lower lobe, right bronchus or lung Secondary malignant neoplasm of bone Neoplasm related pain SURGICAL PATHOLOGY REPORT Routine 08/28/2022 9:11 AM EDT SPECIMEN TO PATHOLOGY Routine 08/28/2022 9:11 AM EDT HC CALCOFLUOR FUNGAL STAIN Routine 08/28/2022 7:45 AM EDT ANAEROBIC CULTURE Routine 08/28/2022 7:4 5 AM EDT HC TISSUE CULTURE Routine 08/28/2022 7:4 5 AM EDT FUNGAL STAIN Routine 08/28/2022 7:45 AM EDT TISSUE CULTURE Routine 08/28/2022 7:45 AM EDT FUNGUS CULTURE Routine 08/28/2022 7:45 AM EDT documented in this encounter Results [...] who have questions please contact the health healthcare administration intern that requested your imaging first. ? Narrative 08/28/2022 6:06 PM EDT EXAMINATION: XR [...] patients who have questions please contactthe health healthcare administration intern that requested your imaging first. Jose Cota MD IMG DX ORDERABLES * XR Chest One View (08/28/2022 10:13 AM EDT) Anatomical Region Laterality Modality Chest N/A Digital Radiogra phy Impressions 08/28/2022 4:42 PM EDT No pneumothorax. I have personally reviewed the image(s) and the resident's interpretation and agree with the findings, Zev Mcdowell MD at 08/28/2022 4:42 PM Thank you for letting us participate in the care of this patient. ??If you are a health care provider and have any questions regarding this report, please contact the number below. ??For patients who have questions please contact the health healthcare administration intern that requested your imaging first. ? Narrative 08/28/2022 4:42 PM EDT EXAMINATION: XR CHEST ONE VIEW CLINICAL HISTORY: post Right lung biopsy. Known bullous diseae with air fluid levels in non-biopsied RUL TECHNIQUE: 1 view of the chest COMPARISON: CT of the chest 07/01/2022 FINDINGS: Multiple large biapical bullae. The largest in the right apex has an air-fluid level, which appears unchanged from prior CT scans. Right mid and lower lung hazy opacity, which likely corresponds to the posterior right lower lobe nodules seen on CT 07/01/2022. Similar right apical pleural effusion. No pneumothorax. Normal cardiomediastinal silhouette and pulmonary vasculature. Procedure Note Zev Mcdowell MD - 08/28/2022 EXAMINATION: XR CHEST ONE VIEW CLINICAL HISTORY: post Right lung biopsy. Known bullous diseae with airfluid levels in non-biopsied RUL TECHNIQUE: 1 view of the chest COMPARISON: CT of the chest 07/01/2022 FINDINGS: Multiple large biapical bullae. The largest in the right apex has anair-fluid level, which appears unchanged from prior CT scans. Right mid and lowerlung hazy opacity, which likely corresponds to the posterior right lower lobenodules seen on CT 07/01/2022. Similar right apical pleural effusion. Nopneumothorax. Normal cardiomediastinal silhouette and pulmonary vasculature. IMPRESSION No pneumothorax. I have personally reviewed the image(s) and the resident's interpretationand agree with the findings, Zev Mcdowell MD at 08/28/2022 4:42 PM Thank you for letting us participate in the care of this patient. If youare a health care provider and have any questions regarding this report,please contact the number below. For patients who have questions please contactthe health healthcare administration intern that requested your imaging first. Electronically signed by: [facility]ev Mcdowell [facility]([phone]), at 08/28/2022 4:42 PM Jose Cota MD IMG DX ORDERABLES * CT Guided Biopsy Lung (08/28/2022 10:00 AM EDT) Anatomical Region Laterality Modality Lung Computed Tomogra phy Narrative 08/28/2022 10:12 AM EDT Preoperative Diagnosis: RUL Mass/nodule. Known metastatic lung CA known Bullous disease Postoperative Diagnosis: Same. Procedure Performed: CT-guided biopsy. Note: This CT exam was performed using one or more of the following dose reduction techniques: Automated exposure control, adjustment of the mA and/or kV according to patient size, or use of iterative reconstruction technique Operators: Jose Cota MD, Attending Estimated Blood Loss: Less than 10 cc. Anesthesia: 1. Conscious sedation with titrated Fentanyl and Versed during continuous hemodynamic monitoring including pulse oximetry, heart rate and blood pressure was provided by an independent qualified trained Nurse. ?? I was present during the intraservice time as documented by the IR Nurse. ?? Please see nursing notes for exact medication dosages. 2. 1% lidocaine, local. The patient was informed of the risks, benefits, and alternatives to the procedure and gave written consent, which was then placed in the chart. Appropriate time-out was performed prior to the procedure. Description of Procedure and Findings: The Right chest was prepped and draped in the usual sterile fashion. ?? Local anesthetic was administered. ?? Using CT guidance, a 19-gauge trocar needle was advanced into the RUL Nodule nodule. Through this needle, several 20-gauge core biopsies were obtained. A Bio Sentry tract sealing device was then deployed per protocol into the pulmonary parenchymal tract and the trochar needle was removed. Follow-up CT scan demonstrates No pneumothorax. Significant RUL thick walled cavity with air fluid level previously described demonstrates increased wall thickening, nodularity and fluid. The patient tolerated the procedure well. Impression: Uneventful CT-guided RUL biopsy. ??Note, lesion appeared smaller 1.7 x 1.1 cm compared to ~2.5cm on previous dx CT when not including adjacent linear density / adjacent tissue which has resolved. Worsening appearance of thick walled RUL cavity/Bullae with air/fluid level. I, the attending Interventional Radiologist performed the entire procedure. Cody Frazier MD IMG CT ORDERABLES * Surgical Pathology Report (08/28/2022 9:11 AM EDT) Final Diagnosis [id number] ? Location: [facility] The signing pathologist has (i) examined the relevant preparation(s) for the specimen(s) and (ii) rendered or confirmed the diagnosis(es). . ?Surgical Pathology DIAGNOSIS Lung, right, CT-guided biopsy: Lung parenchyma with chronic inflammation and rare fibroblastic foci, no evidence of malignancy. (see Discussion) Electronically signed by: ?Teena Abarca MD Verified: ??09/02/2022 16:57 ??Pathologist Performed at: ??-[facility] [place], [place] [address] Machine Coil Assembler: Adithya Lowery MD, AP, ??CLIA Certificate: [id number] DISCUSSION Select eDH notes were reviewed. ??An inflammatory/infe ctious process is favored. The biopsy may not be telesales representative of the clinical mass lesion. Step levels were examined. SPECIMEN(S) SUBMITTED A - CT Guided Right Lung Biopsy, biopsy (Multiple) CLINICAL INFORMATION Met Lung cancer right lung infiltrates? Cancer progression ? Path SPECIMEN PROCESSING A - Labeled/Fixative: CT-guided right lung biopsy, formalin. Quantity/Size: Four, ranging from 0.3-1.6 x 0.1 cm Tissue Description: Bullock-pratt needle core biopsies. Sections/Processi ng: Entirely submitted in 2 cassettes labeled A1-A2. ??nrl 09/02/2022 4:57 PM EDT [facility] LUNG STRUCTURE / Unknown 08/28/2022 9:11 AM EDT 08/28/2022 9:11 AM EDT Jose Cota MD PATHOLOGY/CYTOLOGY O OMARERABLES [facility] [place], [place] [id number] [place] [address] [place] [address] * Specimen to Pathology (08/28/2022 9:11 AM EDT) AP Specimen 08/28/2022 9:11 AM EDT 08/28/2022 9:11 AM EDT Narrative [facility] - 08/28/2022 9:11 AM EDT Specimen requisition ordered. ??Separate Pathology report to follow Jose Cota MD PATHOLOGY/CYTOLOGY O RDERABLES Performing Organization Address City/[facility]/ZIP Co de Phone Number [facility] [place] [place] [address] * Calcofluor White Stain (08/28/2022 7:45 AM EDT) Calcofluor Stain Calcofluor White Preparation: Negative [facility] Lung 08/28/2022 7:45 AM EDT 08/28/2022 10:12 AM EDT Comment:CT Guided Right Lung Biopsy Narrative Resulting Agency Comment Spec In Lab Jose Cota MD MICROBIOLOGY - GENER AL ORDERABLES Performing Organization Address City/[facility]/ZIP Co de Phone Number [facility] [place] [address] * Fungus culture (08/28/2022 7:45 AM EDT) Fungus Culture No Fungus isolated [facility] Lung 08/28/2022 7:45 AM EDT 08/28/2022 10:12 AM EDT Comment:CT Guided Right Lung Biopsy Narrative Resulting Agency Comment Spec In Lab Jose Cota MD MICROBIOLOGY - GENER AL ORDERABLES Performing Organization Address City/[facility]/ZIP Co de Phone Number [facility] [place] [place] [address] * Anaerobic Culture (08/28/2022 7:45 AM EDT) Anaerobic Culture No anaerobic organisms isolated [facility] Lung 08/28/2022 7:45 AM EDT 08/28/2022 10:12 AM EDT Comment:CT Guided Right Lung Biopsy Narrative Resulting Agency Comment Spec In Lab Jose Cota MD MICROBIOLOGY - GENER AL ORDERABLES Performing Organization Address City/[facility]/ZIP Co de Phone Number [facility] [place] [address] * Tissue culture (08/28/2022 7:45 AM EDT) Tissue Culture No growth [facility] Gram Stain No Neutrophils seen. No microorganisms seen. [facility] Lung 08/28/2022 7:45 AM EDT 08/28/2022 10:12 AM EDT Comment:CT Guided Right Lung Biopsy Narrative Resulting Agency Comment Spec In Lab Jose Cota MD MICROBIOLOGY - GENER AL ORDERABLES Performing Organization Address [facility] Co de Phone Number [facility] [place] [address] documented in this encounter Visit Diagnoses Diagnosis Pre-op testing Preoperative examination, unspecified Lung mass Swelling, mass, or lump in chest Malignant neoplasm of lower lobe, right bronchus or lung 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 - Start dose: 50 mcg (reduce dose to 25 mcg if history of sedation sensitivity). - Titration dose: 25-50 mcg IV, (based on patient response) every 3 minutes PRN to maintain procedural pain less than 2 per Pain Scale. Maximum dose: 50 mcg/dose, 250 mcg/hour, Angio/IR (Intra-Procedure), Routine Given 08/28/2022 9:47 AM EDT 25 mcg Given 08/28/2022 9:39 AM EDT 25 mcg lidocaine (Xylocaine) 1% (10 mg/mL) injection 10 mg 10 mg, Subcutaneous, ONCE, 1 dose, On Fri08/28/22 at 0845, For use in Interventional Radiology (IR) only for procedure with direct provider supervision and verbal order., Angio/IR (Intra-Procedure), Routine Given 08/28/2022 8:45 AM EDT 10 mg midazolam (pf) (Versed) (1 mg/mL) multi-dose injection 0.5-1 mg 0.5-1 mg, Intravenous, EVERY 3 MIN PRN, Starting on Fri08/28/22 at 0829, Until Fri08/28/22 at 1254, Sedation, For use in Interventional Radiology (IR) only for procedural sedation with direct provider supervision and verbal order. - Start dose: 1 mg (Reduce dose to 0.5 mg if history of sedation sensitivity). - Titration dose: 0.5 mg - 1 mg (based on patient response) every 3 minutes PRN to obtain RASS score of -3. Maximum dose: 1 mg/dose, 5 mg/hour., Angio/IR (Intra-Procedure), Routine Given 08/28/2022 9:47 AM EDT 0.5 mg Given 08/28/2022 9:40 AM EDT 0.5 mg documented in this encounter Care Teams Demand Generator Manager Relationship Specialty Start Date End Date None None PCP - General 04/03/22 04/24/23 documented as of this encounter
--- OUTSIDE RECORDS SUMMARY | 2023-09-15 02:21 | XMS_ITS | Encounter Summary ---
Author Organization [facility] Address [facility] [place] [address] Care Team Providers Care Silk Washing Machine Operator Name Role Phone None Primary Care Provider Unavailabl e Reason for Visit * Reason Onset Date Comments URI 06/10/2022 Encounter Details Date Type Department Care Team (Late st Contact Info) Description 06/10/2022 Telephone Hematology/Oncology at [address] [phone] Deanne Nelson, RN URI Social History Tobacco Use Types Packs/Day Years [...] Telephone Encounter - Deanne Nelson RN - 06/10/2022 10:39 AM EDT RN call to Alexis, he has cold symptoms/allergies. No fevers. He is cancel appt and inf for today. He cancelled his CT scan last week for the same reason. He would like to reschedule appt and inf fornext week (afternoon if possible). CT scan was rescheduled for 07/01. He reports needing a refill on his 60mg MS Contin. ----- Message from Raven Schneider sent at 06/10/2022 10:20 AM EDT ----- Regarding: Fuld Patient Alexis Pelayo [id number] called he would like a call back today from nursing? [phone] He cancelled his appt today not feeling well. Thank you, Raven documented in this encounter Plan of Treatment Upcoming Encounters Date Type Department Care Team (Late st Contact Info) Description 09/22/2023 2:30 PM EDT Office Visit Hematology/Oncology at [address] [phone] Cody Frazier MD [facility] [place] [address] documented as of this encounter Visit Diagnoses Not on filedocumented in this encounter Care Teams Silk Washing Machine Operator Relationship Specialty Start Date End Date None None PCP - General 04/03/22 04/24/23 documented as of this encounter
--- OUTSIDE RECORDS SUMMARY | 2023-09-15 02:21 | XMS_ITS | Encounter Summary ---
Author Organization [facility] Address [facility] [place] [address] Care Team Providers Care Manager Audio Name Role Phone None Primary Care Provider Unavailabl e Encounter Details Date Type Department Care Team (Late st Contact Info) Description 09/02/2022 Notes Only Hematology/Oncology at [address] [phone] Lorraine Huerta, [facility] OFFICE OF CARE MANAGEMENT Social History Tobacco [...] Progress Notes * Lorraine Huerta MSW - 09/02/2022 2:38 PM EDT Follow up with Alexis during his infusion visit today. He indicated he is managing day to day. His sister is now here and he is enjoying her company. He is doing what he feels up to. He did not identify any new needs. Reminded him of DRIP MOLDER availability. Will continue to follow. Brief assessment Supportive Counseling documented in this encounter Plan of Treatment Upcoming Encounters Date Type Department Care Team (Late st Contact Info) Description 09/22/2023 2:30 PM EDT Office Visit Hematology/Oncology at [address] [phone] Cody Frazier MD [facility] [place] [address] documented as of this encounter Visit Diagnoses Not on filedocumented in this encounter Care Teams Manager Audio Relationship Specialty Start Date End Date None None PCP - General 04/03/22 04/24/23 documented as of this encounter
--- OUTSIDE RECORDS SUMMARY | 2023-09-15 02:21 | XMS_ITS | Encounter Summary ---
Author Organization [facility] Address [facility] [place] [id number] Care Team Providers Care Limo Driver Name Role Phone None Primary Care Provider Unavailabl e Reason for Visit * Reason Onset Date Comments Medication Refill 07/09/2022 MS CR and IR Encounter Details Date Type Department Care Team (Late st Contact Info) Description 07/09/2022 Refill Hematology/Oncology at [address] [phone] Bea Grimes APRN [address] [place] [address] [place] [address] Malignant neoplasm of lower lobe, [...] Telephone Encounter - Bandar Dillard RN - 07/09/2022 9:06 AM EDT ----- Message from Ashanti Lira sent at 07/09/2022 8:39 AM EDT ----- Alexis called in looking to get his :morphine CR (MS Contin) 60 mg ER tablet and morphine IR (MS IR) 15 mg IR tablet refilled Please send to: [id number] - [address] [address] ?? 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
--- OUTSIDE RECORDS SUMMARY | 2023-09-15 02:21 | XMS_ITS | Encounter Summary ---
Author Organization [facility] Address [facility] [place] [id number] Care Team Providers Care Resin Mixer Name Role Phone None Primary Care Provider Unavailabl e Encounter Details Date Type Department Care Team (Latest Contact Info) Description 08/28/2022 Travel Social History Tobacco Use Types Packs/Day [...] slept in a fdc (including now)? No 07/16/2021 Sex and Gender Information Value Date Recorded Sex Assigned at Not on file Gender Identity Not on file Sexual Orientation Not on file documented as of this encounter Plan of Treatment Upcoming Encounters Date Type Department Care Team (Late st Contact Info) Description 09/22/2023 2:30 PM EDT Office Visit Hematology/Oncology at [address] [phone] [facility] DR HEMATOLOGY [place] [address] documented as of this encounter Visit Diagnoses Not on filedocumented in this encounter Care Teams Resin Mixer Relationship Specialty Start Date End Date None None PCP - General 04/03/22 04/24/23 documented as of this encounter
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
--- OUTSIDE RECORDS SUMMARY | 2023-09-15 02:21 | XMS_ITS | Encounter Summary ---
Author Organization [facility] Address [facility] [place] [address] Care Team Providers Care Supervisor Twisting Department Name Role Phone None Primary Care Provider Unavailabl e Encounter Details Date Type Department Care Team (Late st Contact Info) Description 05/07/2022 Orders Only Hematology/Oncology at [address] [phone] Cody Frazier MD [facility] DR HEMATOLOG[place] [address] Malignant neoplasm of lower lobe, [...] PM EDT Office Visit Hematology/Oncology at [address] [phone] Cody Frazier MD [facility] [place] [address] documented as of this encounter Visit Diagnoses Diagnosis Malignant neoplasm of lower lobe, right bronchus or lung Secondary malignant neoplasm of 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
--- OUTSIDE RECORDS SUMMARY | 2023-09-15 02:21 | XMS_ITS | Encounter Summary ---
Author Organization [facility] Address [facility] [place] [address] Care Team Providers Care Medical Field Representative Name Role Phone None Primary Care Provider Unavailabl e Encounter Details Date Type Department Care Team (Late st Contact Info) Description 07/22/2022 3:20 AM EDT Ancillary Procedure Radiology [facility] [place] [phone] Bea Grimes APRN [address] [place] [address] DR [place] [address] Malignant neoplasm of lower lobe, right bronchus or lung; Lung bullae Social History Tobacco Use Types Packs/Day Years [...] PM EDT Office Visit Hematology/Oncology at [address] [phone] Cody Frazier MD [facility] DR HEMATOLOGY [place] [address] documented as of this encounter Procedures Procedure Name Priority Date/Time Associated Diagnosis Comments REQUEST FOR 2ND READ CT CHEST Routine 07/22/2022 3:16 AM EDT Malignant neoplasm of lower lobe, right bronchus or lung Lung bullae documented in this encounter Results * Request For 2nd Read CT Chest (07/22/2022 3:16 AM EDT) Anatomical Region Laterality Modality Chest SO Impressions 07/22/2022 10:10 AM EDT 1. ??Numerous new nodules or masslike densities, some of which are cavitary. Considerations include both infection and metastasis. 2. ??Persistent thick-walled bullae in the right lung with decreased air-fluid levels, likely infectious 3. ??Evolving postradiation changes in right lower lobe. Increased small right pleural effusion. I have personally reviewed the image(s) and the resident's interpretation and agree with the findings, Damion Serrano MD at 07/22/2022 10:10 AM Thank you for letting us participate in the care of this patient. ??If you are a health care provider and have any questions regarding this report, please contact the number below. ??For patients who have questions please contact the health care consultant that requested your imaging first. ? Electronically signed by: Damion Serrano MD, [facility] ??([phone]), at 07/22/2022 10:10 AM Narrative 07/22/2022 10:10 AM EDT EXAMINATION: REQUEST FOR 2ND READ CT CHEST CLINICAL HISTORY: NSCLC, on pembrolizumab, outside CT did not have most recent imaging for comparison, possible new nodules, continued Bullae.; Sending Institution [facility].; Date of exam [id number]; I believe a reinterpretation of this exam may alter care of Patient. Yes TECHNIQUE: Contrast enhanced CT of the chest performed at [facility] and submitted to our department for reinterpretation. COMPARISON: CT 04/03/2022, PET/CT 01/18/2022 FINDINGS: Pulmonary parenchyma: Unchanged size of dominant right upper lobe thick walled bulla containing air-fluid level. The fluid component of this bulla has decreased from prior exam. A second smaller anterior thick-walled bulla is similar in size, although there does appear to be mild decrease in size of layering fluid within this as well. New irregular masslike density in the right upper lobe anterior to the major fissure measuring 3.5 cm (series 3 image 355). New 2 cm cavitary nodule in the posterior right lower lobe (series 3 image 315). Enlarging density in the right lower lobe with associated bronchiectasis and volume loss compatible with evolving postradiation changes (series 2 image 42) There are numerous other new additional right lung nodules, some of them partially cavitary. Additional cavitary nodules in the left lower lobe Stable linear opacity in the left lung apex measuring 1.4 cm series 2 image 16. Airways: No central endobronchial abnormality. Pleura: Right posterior lower lobe pleural thickening Lymph nodes: No significant adenopathy. Heart and vasculature: Normal size of the heart. No significant pericardial effusion. Normal caliber of the thoracic aorta. Other mediastinal structures: No significant findings. Upper abdomen: No significant findings. Skeletal structures: The destructive lytic lesion within the right posterior ninth rib appears unchanged. Healed fracture deformity of the posterior right 11th rib. Multiple regions of thoracic vertebral body height loss and endplate depressions are unchanged from prior exam. Procedure Note Damion Serrano MD - 07/22/2022 EXAMINATION: REQUEST FOR 2ND READ CT CHEST CLINICAL HISTORY: NSCLC, on pembrolizumab, outside CT did not have mostrecent imaging for comparison, possible new nodules, continued Bullae.; Sending Institution [facility].; Date of exam [id number]; I believe a reinterpretation of this exam may alter care of Patient. Yes TECHNIQUE: Contrast enhanced CT of the chest performed at [facility] and submitted to our department for reinterpretation. COMPARISON: CT 04/03/2022, PET/CT 01/18/2022 FINDINGS: Pulmonary parenchyma: Unchanged size of dominant right upper lobe thickwalled bulla containing air-fluid level. The fluid component of this bulla has decreased from prior exam. A second smaller anterior thick-walled bulla is similar in size, althoughthere does appear to be mild decrease in size of layering fluid within this aswell. New irregular masslike density in the right upper lobe anterior to themajor fissure measuring 3.5 cm (series 3 image 355). New 2 cm cavitary nodule in the posterior right lower lobe (series 3 ). Enlarging density in the right lower lobe with associated bronchiectasisand volume loss compatible with evolving postradiation changes (series 2 image42) There are numerous other new additional right lung nodules, some of them partially cavitary. Additional cavitary nodules in the left lower lobe Stable linear opacity in the left lung apex measuring 1.4 cm series 2image 16. Airways: No central endobronchial abnormality. Pleura: Right posterior lower lobe pleural thickening Lymph nodes: No significant adenopathy. Heart and vasculature: Normal size of the heart. No significantpericardial effusion. Normal caliber of the thoracic aorta. Other mediastinal structures: No significant findings. Upper abdomen: No significant findings. Skeletal structures: The destructive lytic lesion within the rightposterior ninth rib appears unchanged. Healed fracture deformity of the posteriorright 11th rib. Multiple regions of thoracic vertebral body height loss andendplate depressions are unchanged from prior exam. IMPRESSION 1. Numerous new nodules or masslike densities, some of which arecavitary. Considerations include both infection and metastasis. 2. Persistent thick-walled bullae in the right lung with decreasedair-fluid levels, likely infectious 3. Evolving postradiation changes in right lower lobe. Increased smallright pleural effusion. I have personally reviewed the image(s) and the resident's interpretationand agree with the findings, Damion Serrano MD at 07/22/2022 10:10 AM Thank you for letting us participate in the care of this patient. If youare a health care provider and have any questions regarding this report,please contact the number below. For patients who have questions please contactthe health care consultant that requested your imaging first. Bea Grimes APRN IMG OUTSIDE INTE RPRETATION ORDERABLES documented in this encounter Visit Diagnoses Diagnosis Malignant neoplasm of lower lobe, right bronchus or lung Lung bullae Emphysematous bleb documented in this encounter Care Teams Medical Field Representative Relationship Specialty Start Date End Date None None PCP - General 04/03/22 04/24/23 documented as of this encounter
--- OUTSIDE RECORDS SUMMARY | 2023-09-15 02:21 | XMS_ITS | Encounter Summary ---
Author Organization [facility] Address [facility] [place] [address] Care Team Providers Care Cam Specialist Name Role Phone None Primary Care Provider Unavailabl e Encounter Details Date Type Department Care Team (Latest Contact Info) Description 05/22/2022 Travel Social History Tobacco Use Types Packs/Day [...] PM EDT Office Visit Hematology/Oncology at [address] [phone] Cody Frazier MD [facility] DR [place] [address] documented as of this encounter Visit Diagnoses Not on filedocumented in this encounter Care Teams Cam Specialist Relationship Specialty Start Date End Date None None PCP - General 04/03/22 04/24/23 documented as of this encounter
--- OUTSIDE RECORDS SUMMARY | 2023-09-15 02:21 | XMS_ITS | Encounter Summary ---
Author Organization [facility] Address [facility] [place]ie [place] [address] Care Team Providers Care Bag Maker Name Role Phone None Primary Care Provider Unavailabl e Encounter Details Date Type Department Care Team (Latest Contact Info) Description 08/28/2022 10:05 AM EDT - 08/28/2022 11:57 AM EDT Hospital Encounter XRay at [address] [place] [address] Jose Cota MD [facility] INTERVENTIONAL [place] [address] Discharge Disposition: Home Social History Tobacco Use [...] PM EDT Office Visit Hematology/Oncology at [address] [phone] Cody Frazier MD [facility] DR HEMATOLOGY [place] [address] documented as of this encounter Procedures Procedure Name Priority Date/Time Associated Diagnosis Comments XR CHEST ONE VIEW Routine 08/28/2022 10: 13 AM EDT documented in this encounter Results * XR Chest One View (08/28/2022 10:13 [...] who have questions please contact the health reproductive healthcare assistant that requested your imaging first. ? Electronically signed by: Zev Mcdowell MD, [facility] ([phone]), at 08/28/2022 4:42 PM Narrative 08/28/2022 4:42 PM EDT EXAMINATION: XR [...] silhouette and pulmonary vasculature. Procedure Note Zev cMdowell MD - 08/28/2022 EXAMINATION: XR CHEST ONE [...] patients who have questions please contactthe health reproductive healthcare assistant that requested your imaging first. Electronically signed by: Zev Mcdowell MD, [facility]([phone]), at 08/28/2022 4:42 PM Jose Cota MD IMG DX ORDERABLES documented in this encounter Visit Diagnoses Not on filedocumented in this encounter Care Teams Bag Maker Relationship Specialty Start Date End Date None None PCP - General 04/03/22 04/24/23 documented as of this encounter
--- OUTSIDE RECORDS SUMMARY | 2023-09-15 02:21 | XMS_ITS | Encounter Summary ---
Author Organization [facility] Address [facility] [place] [address] Care Team Providers Care Enterprise Applications Manager Name Role Phone None Primary Care Provider Unavailabl e Reason for Visit * Reason Comments Chemotherapy Cycle 12, Day 1; Pem bro * Treatment/Therapy Plan Authorization (Routine) - Closed [...] (Paraplatin) AUC = 5 Cody Frazier MD [address] [place] [address] DR HEMATOLOGY [place] [address] Cody Frazier MD [address] [place] [address] DR HEMATOLOGY [place] [address] Referral ID Status Reason Start Date Expiration Date Visits Re quested Visits Authorized [id number] Closed 02/10/2022 2022 99 99 Encounter Details Date Type Department Care Team (Late st Contact Info) Description 05/22/2022 11:00 AM EDT Infusion Hematology Oncology at [address] [phone] Secondary malignant neoplasm of bone; [...] as of this encounter Progress Notes * Erik Mart RN - 05/22/2022 11:00 AM EDT INFUSION THERAPY ADMINISTRATION NOTES DIAGNOSIS: NSCLC CYCLE #: 12, Day 1 - Single agent Pembrolizumab REASON FOR VISIT: To receive single agent immunotherapy. SUBJECTIVE: Alexis offers no complaints, he met withJaycee Grimes today prior to infusion, ready for treatment. OBJECTIVE: Seen by provider. Ready to treat. LAB DATA: completed today at [facility] adequate for treatment IV ACCESS: PIV Pre administration: Chemotherapy orders independently verified for drug name, route, and dosage per patient's height, weight and BSA by ERIK MART, PATRICIA and Staff Pharmacist(s). REACTIONS (DESCRIPTION, TIME, INTERVENTION AND EFFECTIVENESS) none ASSESSMENT: Alexis was awake, alert and tolerated treatment well. PIV discontinued prior to dismissal. PLAN: Return to clinic in three weeks. documented in this encounter Plan of Treatment Upcoming Encounters Date Type Department Care Team (Late st Contact Info) Description 09/22/2023 2:30 PM EDT Office Visit Hematology/Oncology at [address] [phone] Cody Frazier MD [facility] DR HEMATOLOGY [place] [address] documented as of this encounter Visit Diagnoses [...] 200 mg, Intravenous, ONCE, 1 dose, On Fri05/22/22 at 1245, Administer over 30 Minutes, Flush line with NS after each dose., This agent is restricted to outpatient use. Is this drug being given as an outpatient? Yes New Bag 05/22/2022 12:39 PM EDT 200 mg 21 6 mL/hr documented in this encounter Care Teams Enterprise Applications Manager Relationship Specialty Start Date End Date None None PCP - General 04/03/22 04/24/23 documented as of this encounter
--- OUTSIDE RECORDS SUMMARY | 2023-09-15 02:21 | XMS_ITS | Encounter Summary ---
Author Organization [facility] Address [facility] [place] [id number] Care Team Providers Care Monkey Trainer Name Role Phone None Primary Care Provider Unavailabl e Encounter Details Date Type Department Care Team (Latest Contact Info) Description 08/05/2022 Travel Social History Tobacco Use Types Packs/Day [...] PM EDT Office Visit Hematology/Oncology at [address] [phone] Cody Frazier MD [facility] DR [place] [address] documented as of this encounter Visit Diagnoses Not on filedocumented in this encounter Care Teams Monkey Trainer Relationship Specialty Start Date End Date None None PCP - General 04/03/22 04/24/23 documented as of this encounter
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
--- OUTSIDE RECORDS SUMMARY | 2023-09-15 02:21 | XMS_ITS | Encounter Summary ---
Author Organization [facility] Address [facility] [place] [id number] Care Team Providers Care Piping Design Specialist Name Role Phone None Primary Care Provider Unavailabl e Encounter Details Date Type Department Care Team (Late st Contact Info) Description 04/29/2022 Notes Only Hematology/Oncology at [address] [phone] Lorraine Huerta, [facility]NAG[facility] Social History Tobacco [...] Progress Notes * Lorraine Huerta MSW - 04/29/2022 1:59 PM EDT Follow up with Alexis during his clinic visit. He indicated he is managing day to day but is very tired. He indicated he is now working with an claims attorney to apply for SSDI. He continues to use the [employer] for rides to his appointments. He does not want to use a private auto crane driver from [facility] as he is managing with the bus. He did not indicate any new needs at this time. Reminded him of SCIENTIFIC HELPER availability and contact information. Will continue to follow for support and resources. Brief assessment Supportive Counseling documented in this encounter Plan of Treatment Upcoming Encounters Date Type Department Care Team (Late st Contact Info) Description 09/22/2023 2:30 PM EDT Office Visit Hematology/Oncology at [address] [phone] Cody Frazier MD [facility] DR [place] [address] documented as of this encounter Visit Diagnoses Not on filedocumented in this encounter Care Teams Piping Design Specialist Relationship Specialty Start Date End Date None None PCP - General 04/03/22 04/24/23 documented as of this encounter
--- OUTSIDE RECORDS SUMMARY | 2023-09-15 02:21 | XMS_ITS | Encounter Summary ---
Author Organization [facility] Address [facility] [place] [id number] Care Team Providers Care Entry Tech Name Role Phone None Primary Care Provider Unavailabl e Encounter Details Date Type Department Care Team (Late st Contact Info) Description 07/10/2022 Notes Only Hematology/Oncology at [address] [phone] Lorraine Huerta, [facility] Social History Tobacco [...] Progress Notes * Lorraine Huerta MSW - 07/10/2022 2:53 PM EDT Follow up with Alexis during his infusion visit today. He indicated he is doing well overall. He got his fishing license so he hopes to get out to do that. He has a cat now. His sister from [place] is moving to the area and he is pleased with this. He works out his transportation needs with [employer]. Alexis did not identify any new needs today. Reminded him of PUBLIC SAFETY POLICE availability. Will continue to follow as indicated. Brief assessment Supportive Counseling documented in this encounter Plan of Treatment Upcoming Encounters Date Type Department Care Team (Late st Contact Info) Description 09/22/2023 2:30 PM EDT Office Visit Hematology/Oncology at [address] [phone] Cody Frazier MD [facility] [place] [address] documented as of this encounter Visit Diagnoses Not on filedocumented in this encounter Care Teams Entry Tech Relationship Specialty Start Date End Date None None PCP - General 04/03/22 04/24/23 documented as of this encounter
--- OUTSIDE RECORDS SUMMARY | 2023-09-15 02:21 | XMS_ITS | Encounter Summary ---
Author Organization [facility] Address [facility] [place] [address] Care Team Providers Care Kapok Machine Operator Name Role Phone None Primary Care Provider Unavailabl e Reason for Visit * Reason Onset Date Comments Medication Refill 05/27/2022 Encounter Details Date Type Department Care Team (Late st Contact Info) Description 05/27/2022 Refill Hematology/Oncology at [address] [phone] Bea Grimes APRN [address] [place] [address] [place] [address] Malignant neoplasm of lower lobe, [...] encounter Miscellaneous Notes * Telephone Encounter - Mago Mariee RN - 05/27/2022 1:38 PM EDT Images from the original note were not included. Ashanti Lira Rust Hem Onc Nurse Alexis called in today looking for his refill on his :morphine IR (MS IR) 15 mg IR tablet Please send to: ??[id number] - [address] [address] Phone: ??[phone] ??Fax: ??[phone] Best call back number: [phone] respiratory physician of chart suggests that this is an appropriate refill request. Prescription pended to Jaycee Grimes APRN for review and e-sign, if agreeable. 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
--- OUTSIDE RECORDS SUMMARY | 2023-09-15 02:21 | XMS_ITS | Encounter Summary ---
Author Organization [facility] Address [facility] [place] [address] Care Team Providers Care Elevator Operator Service Name Role Phone None Primary Care Provider Unavailabl e Reason for Visit * Reason Onset Date Comments Prior Authorization 07/10/2022 Dronabinol Encounter Details Date Type Department Care Team (Late st Contact Info) Description 07/10/2022 Telephone Hematology/Oncology at [address] [phone] Bandar Dillard laster hand (Dronabinol ) Social History Tobacco Use Types Packs/Day [...] Telephone Encounter - Bandar Dillard RN - 07/10/2022 4:11 PM EDT [place] submitted via CoverMyMeds for dronabinol. documented in this encounter Plan of Treatment Upcoming Encounters Date Type Department Care Team (Late st Contact Info) Description 09/22/2023 2:30 PM EDT Office Visit Hematology/Oncology at [address] [phone] Cody Frazier MD [facility] DR [place] [address] documented as of this encounter Visit Diagnoses Not on filedocumented in this encounter Care Teams Elevator Operator Service Relationship Specialty Start Date End Date None None PCP - General 04/03/22 04/24/23 documented as of this encounter
--- OUTSIDE RECORDS SUMMARY | 2023-09-15 02:21 | XMS_ITS | Encounter Summary ---
Author Organization [facility] Address [facility] [place] [address] Care Team Providers Care Salad Bar Clerk Name Role Phone None Primary Care Provider Unavailabl e Encounter Details Date Type Department Care Team (Latest Contact Info) Description 09/02/2022 Travel Social History Tobacco Use Types Packs/Day [...] PM EDT Office Visit Hematology/Oncology at [address] [phone] Cody Frazier MD [facility] DR [place] [address] documented as of this encounter Visit Diagnoses Not on filedocumented in this encounter Care Teams Salad Bar Clerk Relationship Specialty Start Date End Date None None PCP - General 04/03/22 04/24/23 documented as of this encounter
--- OUTSIDE RECORDS SUMMARY | 2023-09-15 02:21 | XMS_ITS | Encounter Summary ---
Author Organization [facility] Address [facility] [place] [address] Care Team Providers Care Straw Hat Presser Name Role Phone None Primary Care Provider Unavailabl e Encounter Details Date Type Department Care Team (Late st Contact Info) Description 08/02/2022 Orders Only Hematology/Oncology at [address] [phone] Cody Frazier MD [facility] DR [place]AT[place] [address] Secondary malignant neoplasm of bone; Malignant neoplasm of lower lobe, right bronchus or lung; Medication management Social History Tobacco Use Types [...] PM EDT Office Visit Hematology/Oncology at [address] [phone] Cody Frazier MD [facility] DR [place] [address] Scheduled Orders Name Type Priority Associated Diagnoses Orde r Schedule CBC (with Diff) Lab STAT Secondary malignant neoplasm of bone Malignant neoplasm of lower lobe, right bronchus or lung Medication management As Needed for 24 Occurrences starting 08/02/2022 until 08/03/2023 Comprehensive metabolic panel (non-fasting) Lab STAT Secondary malignant neoplasm of bone Malignant neoplasm of lower lobe, right bronchus or lung Medication management As Needed for 24 Occurrences starting 08/02/2022 until 08/03/2023 Magnesium Lab STAT Secondary malignant neoplasm of bone Malignant neoplasm of lower lobe, right bronchus or lung Medication management As Needed for 24 Occurrences starting 08/02/2022 until 08/03/2023 TSH Lab Routine Secondary malignant neoplasm of bone Malignant neoplasm of lower lobe, right bronchus or lung Medication management As Needed for 24 Occurrences starting 08/02/2022 until 08/03/2023 T4, free Lab STAT Secondary malignant neoplasm of bone Malignant neoplasm of lower lobe, right bronchus or lung Medication management As Needed for 24 Occurrences starting 08/02/2022 until 08/03/2023 documented as of this encounter Visit Diagnoses Diagnosis 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
--- OUTSIDE RECORDS SUMMARY | 2023-09-15 02:21 | XMS_ITS | Encounter Summary ---
Author Organization [facility] Address [facility] [place] [address] Care Team Providers Care Research Engineer Marine Equipment Name Role Phone None Primary Care Provider Unavailabl e Encounter Details Date Type Department Care Team (Latest Contact Info) Description 07/10/2022 Travel Social History Tobacco Use Types Packs/Day [...] 2:30 PM EDT Office Visit Hematology/Oncology at [address] [phone] Cody Frazier MD [facility] DR [place] [address] documented as of this encounter Visit Diagnoses Not on filedocumented in this encounter Care Teams Research Engineer Marine Equipment Relationship Specialty Start Date End Date None None PCP - General 04/03/22 04/24/23 documented as of this encounter
--- OUTSIDE RECORDS SUMMARY | 2023-09-15 02:21 | XMS_ITS | Encounter Summary ---
Author Organization [facility] Address [facility] [place] [address] Care Team Providers Care Dough Molder Name Role Phone None Primary Care Provider Unavailabl e Reason for Visit * Reason Comments Chemotherapy C15 Pembrolizumab * Treatment/Therapy Plan Authorization (Routine) - Closed [...] (Paraplatin) AUC = 5 Cody Frazier MD [address] [place] [place] [address] [place] [address] Cody Frazier MD [address] [place] [address] [place] [address] Referral ID Status Reason Start Date Expiration Date Visits Re quested Visits Authorized [id number] Closed 02/10/2022 2022 99 99 Encounter Details Date Type Department Care Team (Late st Contact Info) Description 08/05/2022 3:30 PM EDT Infusion Hematology Oncology at [address] [phone] Malignant neoplasm of lower lobe, [...] Progress Notes * Mohini Caal RN - 08/05/2022 3:30 PM EDT INFUSION THERAPY ADMINISTRATION NOTES DIAGNOSIS: NSCLC CYCLE #: 15, Day 1 REASON FOR VISIT: Pembrolizumab SUBJECTIVE: [...] PM EDT Office Visit Hematology/Oncology at [address] [phone] Cody Frazier MD [facility] DR [place] [address] documented as of this encounter Visit Diagnoses [...] 200 mg, Intravenous, ONCE, 1 dose, On 08/05/22 at 1715, Administer over 30 Minutes, Flush line with NS after each dose., This agent is restricted to outpatient use. Is this drug being given as an outpatient? Yes New Bag 08/05/2022 4:21 PM EDT 200 mg 216 mL/hr documented in this encounter Care Teams Dough Molder Relationship Specialty Start Date End Date None None PCP - General 04/03/22 04/24/23 documented as of this encounter
--- OUTSIDE RECORDS SUMMARY | 2023-09-15 02:21 | XMS_ITS | Encounter Summary ---
Author Organization [facility] Address [facility] [place] [address] Care Team Providers Care Regasification Plant Operator Name Role Phone None Primary Care Provider Unavailabl e Reason for Visit * Reason Onset Date Comments Medication Refill 05/10/2022 Encounter Details Date Type Department Care Team (Late st Contact Info) Description 05/10/2022 Refill Hematology/Oncology at [address] [phone] Bea Grimes APRN [address] [place] [address] DR [place] [address] Malignant neoplasm of lower lobe, [...] Telephone Encounter - Mago Mariee RN - 05/10/2022 2:37 PM EDT Images from the original note were not included. Ashanti Lira [facility] Hem Onc Nurse Alexis called in today looking for a refill on his morphine CR (Ms Contin) 60 mg Tablet Sustained Release Please send to: [id number] - [address] [address] Phone: ??[phone] ??Fax: ??[phone] Best call back number [phone] watch dial printer of chart suggests this is an appropriate refill request. Prescription pended to Jaycee Grimes APRN for review and e-signature. documented in this encounter Plan of Treatment Upcoming Encounters Date Type Department Care Team (Late st Contact Info) Description 09/22/2023 2:30 PM EDT Office Visit Hematology/Oncology at [address] [phone] Cody Frazier MD [facility] DR [place] [address] documented as of this encounter Visit Diagnoses Diagnosis Malignant neoplasm of lower lobe, right bronchus or lung documented in this encounter Care Teams Regasification Plant Operator Relationship Specialty Start Date End Date None None PCP - General 04/03/22 04/24/23 documented as of this encounter
--- OUTSIDE RECORDS SUMMARY | 2023-09-15 02:21 | XMS_ITS | Encounter Summary ---
Author Organization [facility] Address [facility] [place] [address] Care Team Providers Care Director Of Patient Safety Name Role Phone None Primary Care Provider Unavailabl e Encounter Details Date Type Department Care Team (Late st Contact Info) Description 08/20/2022 Refill Hematology/Oncology at [address] [phone] Bea Grimes APRN [address] [place] [address] DR HEMATOLOGY [place] [address] Secondary malignant neoplasm of bone; [...] Telephone Encounter - Deanne Nelson RN - 08/20/2022 10:31 AM EDT ----- Message from Ashanti Lira sent at 08/20/2022 10:24 AM EDT ----- Alexis called in looking to get his refill on his morphine IR (MS IR) 15 mg IR tablet Please send it to: [id number] - [place] [address] Best call back number [phone] documented in this encounter Plan of Treatment Upcoming Encounters Date Type Department Care Team (Late st Contact Info) Description 09/22/2023 2:30 PM EDT Office Visit Hematology/Oncology at [address] [phone] Cody Frazier MD [facility] DR [place] [address] documented as of this encounter Visit Diagnoses Diagnosis 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
--- OUTSIDE RECORDS SUMMARY | 2023-09-15 02:21 | XMS_ITS | Encounter Summary ---
Author Organization [facility] Address [facility] [place] [address] Care Team Providers Care Invoicing Specialist Name Role Phone None Primary Care Provider Unavailabl e Reason for Visit * Reason Comments Chemotherapy Cycle 14, Day 1; Pem bro * Treatment/Therapy Plan [...] (Paraplatin) AUC = 5 Cody Frazier MD [address] [place] [address] DR [place] [address] Cody Frazier MD [address] [place] [address] DR [place] [address] Referral ID Status Reason Start Date Expiration Date Visits Re quested Visits Authorized [id number] Closed 02/10/2022 2022 99 99 Encounter Details Date Type Department Care Team (Late st Contact Info) Description 07/10/2022 1:30 PM EDT Infusion Hematology Oncology at [address] [phone] Secondary malignant neoplasm of bone; [...] as of this encounter Progress Notes * Nathaly Mart RN - 07/10/2022 1:30 PM EDT INFUSION THERAPY ADMINISTRATION NOTES DIAGNOSIS: NSCLC CYCLE #: 14, Day 1 REASON FOR VISIT: Pembrolizumab SUBJECTIVE: Alexis offers no complaints, he met with Jaycee Grimes today prior to infusion, ready for treatment. OBJECTIVE: Seen by provider. Ready to treat. LAB DATA: WDL for today's limits IV ACCESS: PIV Pre administration: Chemotherapy orders independently verified for drug name, route, and dosage per patient's height, weight and BSA by Nathaly Mart, PATRICIA and Staff Pharmacist(s). REACTIONS (DESCRIPTION, TIME, INTERVENTION AND EFFECTIVENESS) none ASSESSMENT: Alexis was awake, alert and tolerated treatment well. PIV discontinued prior to dismissal. PLAN: Return to clinic in three weeks. documented in this encounter Plan of Treatment Upcoming Encounters Date Type Department Care Team (Late st Contact Info) Description 09/22/2023 2:30 PM EDT Office Visit Hematology/Oncology at [address] [phone] Cody Frazier MD [facility] DR [place]AT[place] [address] documented as of this encounter Visit Diagnoses [...] 200 mg, Intravenous, ONCE, 1 dose, On Fri07/10/22 at 1515, Administer over 30 Minutes, Flush line with NS after each dose., This agent is restricted to outpatient use. Is this drug being given as an outpatient? Yes New Bag 07/10/2022 2:36 PM EDT 200 mg 216 mL/hr documented in this encounter Care Teams Invoicing Specialist Relationship Specialty Start Date End Date None None PCP - General 04/03/22 04/24/23 documented as of this encounter
--- OUTSIDE RECORDS SUMMARY | 2023-09-15 02:22 | XMS_ITS | Encounter Summary ---
Author Organization [facility] Address [facility] [place] [address] Care Team Providers Care Manufacturing Applications Engineer Name Role Phone Arias Mast DNP Primary Care Provider [phone] Reason for Visit * Reason Onset Date Comments Medication Refill 01/29/2022 MSIR Encounter Details Date Type Department Care Team (Late st Contact Info) Description 01/29/2022 Refill Hematology [place] [phone] Cody Frazier MD [facility] DR [place] [address] Secondary malignant neoplasm of bone; Malignant neoplasm of lower lobe, right bronchus or lung Social History Tobacco Use Types Packs/Day Years Used Date Smoking Tobacco: Some Days Cigarettes 0.3 42.6 Started: 1981 Smokeless Tobacco: Never Comments:10 per day Alcohol Use Standard Drinks/Week Comments Yes 3 [...] PM EDT Office Visit Hematology/Oncology at [address] [phone] Cody Frazier MD [facility] DR [place] [address] documented as of this encounter Visit Diagnoses Diagnosis 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
--- OUTSIDE RECORDS SUMMARY | 2023-09-15 02:22 | XMS_ITS | Encounter Summary ---
Author Organization [facility] Address [facility] [place] [address] Care Team Providers Care Farm Service Adviser Name Role Phone Arias Mast DNP Primary Care Provider [phone] Encounter Details Date Type Department Care Team (Latest Contact Info) Description 01/14/2022 Travel Social History Tobacco Use Types Packs/Day [...] PM EDT Office Visit Hematology/Oncology at [address] [phone] Cody Frazier MD [facility] DR [place] [address] documented as of this encounter Visit Diagnoses Not on filedocumented in this encounter Care Teams Farm Service Adviser Relationship Specialty Start Date End Date Arias Mast DNP PCP - General Family Medicine 02/14/21 04/02/22 documented as of this encounter
--- OUTSIDE RECORDS SUMMARY | 2023-09-15 02:22 | XMS_ITS | Encounter Summary ---
Author Organization [facility] Address [facility] [place] [address] Care Team Providers Care Lead Die Molder Name Role Phone None Primary Care Provider Unavailabl e Encounter Details Date Type Department Care Team (Latest Contact Info) Description 04/08/2022 Travel Social History Tobacco Use Types Packs/Day [...] PM EDT Office Visit Hematology/Oncology at [address] [phone] Cody Frazier MD [facility] DR HEMATOLOGY [place] [address] documented as of this encounter Visit Diagnoses Not on filedocumented in this encounter Care Teams Lead Die Molder Relationship Specialty Start Date End Date None None PCP - General 04/03/22 04/24/23 documented as of this encounter
--- OUTSIDE RECORDS SUMMARY | 2023-09-15 02:22 | XMS_ITS | Encounter Summary ---
Author Organization [facility] Address [facility] [place] [address] Care Team Providers Care Shoulder Sawyer Name Role Phone Arias Mast DNP Primary Care Provider [phone] Encounter Details Date Type Department Care Team (Late st Contact Info) Description 03/15/2022 Orders Only Hematology [place] [address] Cody Frazier MD [facility] DR HEMATOLOGY [place] [address] Social History Tobacco Use Types Packs/Day Years [...] PM EDT Office Visit Hematology/Oncology at [address] [phone] Cody Frazier MD [facility] DR HEMATOLOGY [place] [address] documented as of this encounter Visit Diagnoses Not on filedocumented in this encounter Care Teams Shoulder Sawyer Relationship Specialty Start Date End Date Arias Mast DNP PCP - General Family Medicine 02/14/21 04/02/22 documented as of this encounter
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
--- OUTSIDE RECORDS SUMMARY | 2023-09-15 02:22 | XMS_ITS | Encounter Summary ---
Author Organization [facility] Address [facility] [place] [address] Care Team Providers Care Regional Otr Company Driver Name Role Phone Arias Mast DNP Primary Care Provider [phone] Reason for Visit * Reason Comments Chemotherapy Cycle 9, Day 1 - Pem brolizumab * Treatment/Therapy Plan Authorization (Routine) - Closed [...] (Paraplatin) AUC = 5 Cody Frazier MD [address] [place] [address] DR [place] [address] Cody Frazier MD [address] [place] [address] DR [place] [address] Referral ID Status Reason Start Date Expiration Date Visits Re quested Visits Authorized [id number] Closed 02/10/2022 2022 99 99 Encounter Details Date Type Department Care Team (Late st Contact Info) Description 02/18/2022 11:00 AM EST Infusion Hematology Oncology at [address] [phone] Secondary malignant neoplasm of bone; [...] Progress Notes * Aydee Yung RN - 02/18/2022 11:00 AM EST INFUSION THERAPY ADMINISTRATION NOTES DIAGNOSIS: NSCLC CYCLE #: Cycle 9, Day 1 - Single agent Pembrolizumab REASON FOR VISIT: To receive single agent immunotherapy. SUBJECTIVE: Alexis offers no complaints. OBJECTIVE: Seen by provider. Ready to treat. LAB DATA: WBC - 8.91, H/H - 14.8/47.5, Plt Ct - 526, ANC - 5.86, Lytes wnl, BUN/Cr - 15/1.1, TSH/Free T 4 - 1.52/1.18. IV ACCESS: PIV Pre administration: Chemotherapy orders [...] PM EDT Office Visit Hematology/Oncology at [address] [phone] Cody Frazier MD [facility] DR HEMATOLOGY [place] [address] documented as of this encounter Visit Diagnoses [...] 200 mg, Intravenous, ONCE, 1 dose, On Fri02/18/22 at 1245, Administer over 30 Minutes, Flush line with NS after each dose., This agent is restricted to outpatient use. Is this drug being given as an outpatient? Yes New Bag 02/18/2022 11:57 AM EST 200 mg 216 mL/hr sodium chloride 0.9% infusion 500 mL/hr, Intravenous, CONTINUOUS, Starting on Fri02/18/22 at 1145, Until Fri02/18/22 at 1529, Select an infusion rate (in mL/hour) from dose field. Then define the total infusion duration: 2 hours. New Bag 02/18/2022 11:30 AM EST 500 mL/hr 500 mL/hr documented in this encounter Care Teams Regional Otr Company Driver Relationship Specialty Start Date End Date Arias Mast DNP PCP - General Family Medicine 02/14/21 04/02/22 documented as of this encounter
--- OUTSIDE RECORDS SUMMARY | 2023-09-15 02:22 | XMS_ITS | Encounter Summary ---
Author Organization [facility] Address [facility] [place] [address] Care Team Providers Care Grapple Crew Leader Name Role Phone Arias Mast DNP Primary Care Provider [phone] Reason for Visit * Reason Onset Date Comments Other 01/17/2022 transportation Encounter Details Date Type Department Care Team (Late st Contact Info) Description 01/17/2022 Telephone Hematology/Oncology at [address] [phone] Lorraine Huerta, GRADUATE NURSE OFFICE OF CARE MANAGEMENT Other (transportation) Social History Tobacco Use Types Packs/Day Years [...] encounter Miscellaneous Notes * Telephone Encounter - Lorraine Huerta MSW - 01/17/2022 9:12 AM EST Request from radiology scheduler to set up a ride for Alexis for his 02-18-22 labs, provider visit and infusion. TC Alexis re this. He plans to continue to use the [employer] bus for these local appointments. Asked himto let SINGH know if he changes his mind and he wants to get an RCT trailer truck driver instead at least 3 days ahead of a local appointment. Alexis is agreeable to this plan. Care Coordination Transportation resources documented in this encounter Plan of Treatment Upcoming Encounters Date Type Department Care Team (Late st Contact Info) Description 09/22/2023 2:30 PM EDT Office Visit Hematology/Oncology at [address] [phone] Cody Frazier MD [facility] DR [place] [address] documented as of this encounter Visit Diagnoses Not on filedocumented in this encounter Care Teams Grapple Crew Leader Relationship Specialty Start Date End Date Arias Mast DNP PCP - General Family Medicine 02/14/21 04/02/22 documented as of this encounter
--- OUTSIDE RECORDS SUMMARY | 2023-09-15 02:22 | XMS_ITS | Encounter Summary ---
Author Organization [facility] Address [facility] [place] [address] Care Team Providers Care Dip Guider Stoves Name Role Phone Arias Mast DNP Primary Care Provider [phone] Encounter Details Date Type Department Care Team (Late st Contact Info) Description 01/23/2022 4:20 PM EST Office Visit Pulmonology at [facility] [place] 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; Bullous emphysema Social History Tobacco Use Types Packs/Day Years [...] Sign Reading Time Taken Comments Blood Pressure 138/87 01/23/2022 4:13 PM EST Pulse 105 01/23/2022 4:13 PM EST Temperature 36.3 ??C (97.3 ??F) 01/23/2022 4:13 PM ES T Respiratory Rate 16 01/23/2022 4:13 PM EST Oxygen Saturation 98% 01/23/2022 4:13 PM EST Inhaled Oxygen Concentration - - Weight 60.4 kg (133 lb 3.2 oz) 01/23/2022 4:13 P M EST Height 180.3 cm (5' 11) 01/23/2022 4:13 PM EST Body Mass Index 18.58 01/23/2022 4:13 PM EST documented in this encounter Progress Notes * Román Valdivia MD - 01/23/2022 4:20 PM EST Images from the original note were not included. INTERVENTIONAL PULMONOLOGY OUTPATIENT FOLLOW-UP NOTE SECTION OF PULMONARY & CRITICAL CARE MEDICINE PATIENT NAME: Alexis Pelayo : 1970 MEDICAL RECORD: [id number] DATE OF SERVICE: 01/23/2022 PRIMARY CARE PHYSICIAN: Arias Mast, OBSERVATION ASSISTANT 06/19 Mr. Alexis Pelayo is a 51 y.o. man who I last saw on 06/19 when he presented with cough as well asa large right-sided pleural based mass. 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 A recent staging PET showed a large fluid-filed cavity in the right lung. Since our last visit Mr. Pelayo has been doing quite well. He states he is 100% normal from pulmonary standpiont aside from continued right back/rib pain that is improvedwith his pain medications. He denies SOB at rest but does have chronic, stable exertional dyspnea after climbing 1 flight of stairs. He has minimal cough and denies any hemoptysis, fever, chills or sweats. His weight is down 'a few pounds' and he is 'forcing' himself to eat. He continues to smoke, though is down to 0 - 2 cigarettes per day. Review of Systems: A 12 point ROS was negative aside from as listed above. Since our initial visit on 06/19/21 there has been no change in his past, family or social history. Medications: Prior to Admission medications Medication Sig Start Date End Date Taking? Authorizing Provider morphine CR (Ms Contin) 60 mg Tablet Sustained Release Take 1 tablet by mouth 3 times daily for 28 days. 01/14/22 02/11/22 Yes Cody Frazier MD morphine IR (MSIR) 15 mg Tablet Take 1 tablet by mouth 3 times daily as needed for Pain. Patient taking differently: Take 15 mg by mouth 3 times daily as needed for Pain. PRN 12/31/21 Yes Cody Frazier MD pregabalin (Lyrica) 50 mg Capsule Take 1 capsule by mouth 2 times daily. 10/22/21 Yes Cody Frazier MD acetaminophen (Tylenol) 500 mg Tablet Take 1,000 mg by mouth every 6 hours as needed for Pain. Yes PROVIDER, HISTORICAL naproxen sodium (ALEVE) 220 mg Capsule Take 1 capsule by mouth every 12 hours. Take with food. 07/05/21 Yes Christopher Alva MD ProChamber Spacer 01/23/21 Yes PROVIDER, HISTORICAL ProAir HFA 90 mcg/actuation HFA Aerosol Inhaler Inhale 2 puffs into the lungs every 4 hours as needed. EVERY 4 TO 6 HOURS NEEDED PRN 05/25/21 Yes PROVIDER, HISTORICAL omeprazole (PriLOSEC) 40 mg Capsule, Delayed Release(E.C.) Take 40 mg by mouth daily. 05/25/21 Yes PROVIDER, HISTORICAL Advair Diskus 250-50 mcg/dose Disk with Device Inhale 250 puffs into the lungs 2 times daily. 01/23/21 Yes PROVIDER, HISTORICAL Spiriva with HandiHaler 18 mcg Capsule, w/Inhalation Device Inhale 18 mcg into the lungs daily. 01/23/21 Yes PROVIDER, HISTORICAL prochlorperazine (Compazine) 10 mg Tablet Take 1 tablet by mouth every 6 hours as needed for Nausea. Patient not taking: Reported on 10/22/2021 07/16/21 Cody Frazier MD Allergies: Allergies Allergen Reactions ??? Magnesium Oxide Rash ??? Amitriptyline Patient reports agitation and insomnia Objective: Patient Vitals for the past 24 hrs: Temp Pulse Resp BP SpO2 01/23/22 1613 36.3 ??C (97.3 ??F) (!) 105 16 138/87 98 % General: This is a 51 y.o. male HEENT: Moist mucous membranes, sclera are white Neck: Supple, trachea is midline Lymphatics: No obvious lymphadenopathy Cardiovascular: Nl s1/s2, rrr Respiratory: Clear to auscultation bilaterally GI: soft, nt, nd Extremities: no LE edema noted, no clubbing + swelling and tenderness R back inferior to scapula, improved c/w prior visit Imaging: (Images personally reviewed) 01/18/[address]: there is significant underlying emphysema. There has been marked improvement in theright lower chest wall mass with only mild-moderate FDG activity. There is RLL consolidation, also with mild FDG avidity. There is a large fluid-filled bullae in the RUL with some mild FDG avidity inthe wall and an irregular wall in the anterior and posterior margin. 01/14/22 CBC: WBC 6.7, Hb 12.2, Plt 443 Assessment and Plan: Mr. Alexis Pelayo is a 51 y.o. gentleman with a history of metastatic lung cancerwho presents to the Interventional Pulmonology clinic for evaluation of a large fluid filled bullae as well as FDG avidity in the wall of the cavity. He is looking remarkably well and we discussed that the fluid could be inflammatory, infectious or malignant. We discussed options of radiographic surveillance given that he is clinically well vs trying to obtain a specific diagnosis via either surgery, bronchoscopyor CT-guided transthoracic needle biopsy. Given his clinical appearance, my bias would be radiographic surveillance vs a round of empiric antibiotics (ie Augmentin) with a repeat CT in 6w. His underlying emphysema would put him at risk for respiratory complications with a bronchoscopic or surgical approach and TTNA would place him at risk of empyema and persistent air leak. The downside of radiographic surveillance clearly is that he has limited reserve and could get quite sick rather quickly. I will present his case at our comprehensive thoracic oncology program tumor board this Friday to come up with a unified / multi-disciplinary plan. All of his questions were answered and he agrees with the plan. Román Valdivia MD, 01/23/2022, 4:29 PM Interventional Pulmonology Section of Pulmonary & Critical Care Pager: [phone] documented in this encounter Plan of Treatment Upcoming Encounters Date Type Department Care Team (Late st Contact Info) Description 09/22/2023 2:30 PM EDT Office Visit Hematology/Oncology at [address] [phone] Cody Frazier MD [facility] DR HEMATOLOGY [place] [address] documented as of this encounter Visit Diagnoses Diagnosis Primary malignant neoplasm of right lung metastatic to other site Bullous emphysema Emphysematous bleb documented in this encounter Care Teams Dip Guider Stoves Relationship Specialty Start Date End Date Arias Mast DNP PCP - General Family Medicine 02/14/21 04/02/22 documented as of this encounter
--- OUTSIDE RECORDS SUMMARY | 2023-09-15 02:22 | XMS_ITS | Encounter Summary ---
Author Organization [facility] Address [facility] [place] [address] Care Team Providers Care Glass Tube Bender Name Role Phone None Primary Care Provider Unavailabl e Encounter Details Date Type Department Care Team (Late st Contact Info) Description 04/03/2022 2:00 PM EST Office Visit Pulmonology at [facility] [place] [address] Román Valdivia MD [facility] [place] [address] Abscess of upper lobe of left lung without pneumonia; Primary malignant neoplasm of right lung metastatic [...] Sign Reading Time Taken Comments Blood Pressure 128/85 04/03/2022 1:25 PM EST Pulse 78 04/03/2022 1:25 PM EST Temperature 37.1 ??C (98.7 ??F) 04/03/2022 1:25 PM ES T Respiratory Rate 16 04/03/2022 1:25 PM EST Oxygen Saturation 97% 04/03/2022 1:25 PM EST Inhaled Oxygen Concentration - - Weight 63.1 kg (139 lb 3.2 oz) 04/03/2022 1:25 P M EST Height 180.3 cm (5' 10.98) 04/03/2022 1:[address] Body Mass Index 19.43 04/03/2022 1:25 PM EST documented in this encounter Progress Notes * Román Valdivia MD - 04/03/2022 2:00 PM EST Images from the original note were not included. INTERVENTIONAL PULMONOLOGY OUTPATIENT FOLLOW-UP NOTE SECTION OF PULMONARY & CRITICAL CARE MEDICINE PATIENT NAME: Alexis Pelayo : 1970 MEDICAL RECORD: [id number] DATE OF SERVICE: 04/03/2022 PRIMARY CARE PHYSICIAN: Arias Mast APRN Mr. Alexis Pelayo is a 51 y.o. man who I last saw on 01/23/22 and returns today for follow-up of an abnormal chest CT with a large fluid filled bullae as well as FDG avidity in the wall of the cavity . I presented his case at our CTOPP conference on 02/12/2022 and the consensus was to treat with 4 weeks of antibiotics and repeat imaging. Since our last visit Mr. Pelayo has been doing quite well. He completed a 1-month course of Augmentin and did not notice any difference in his symptoms (aside from some GI upset from the medication). He denies any chest pain / pressure, change in his chronic exertional dyspnea after climbing 3 flights of stairs, cough/hemoptysis, fever, chills, sweats or weight loss (in fact he has gained 7lbs). Review of Systems: A 12 point ROS was negative aside from as listed above. Since our initial visit on 06/19/21 there has been no change in his past, family or social history. Medications: Prior to Admission medications Medication Sig Start Date End Date Taking? Authorizing Provider morphine IR (MSIR) 15 mg Tablet Take 1 tablet by mouth 3 times daily as needed for Pain. PRN 03/27/22 Bea Grimes APRN morphine CR (Ms Contin) 60 mg Tablet Sustained Release Take 1 tablet by mouth 3 times daily. 03/15/22Cody Frazier MD pregabalin (Lyrica) 50 mg Capsule Take 1 capsule by mouth 2 times daily. 02/26/22 Cody Frazier MD amoxicillin-clavulanate (Augmentin) 875-125 mg Tablet Take 1 tablet by mouth 2 times daily. 02/12/22 Román Valdivia MD prochlorperazine (Compazine) 10 mg Tablet Take 1 tablet by mouth every 6 hours as needed for Nausea. Patient not taking: Reported on 10/22/2021 07/16/21 Cody Frazier MD acetaminophen (Tylenol) 500 mg Tablet Take 1,000 mg by mouth every 6 hours as needed for Pain. PROVIDER, HISTORICAL naproxen sodium (ALEVE) 220 mg Capsule Take 1 capsule by mouth every 12 hours. Take with food. 07/05/21 Christopher Alva MD ProChamber Spacer 01/23/21 PROVIDER, HISTORICAL ProAir HFA 90 mcg/actuation HFA Aerosol Inhaler Inhale 2 puffs into the lungs every 4 hours as needed. EVERY 4 TO 6 HOURS NEEDED PRN 05/25/21 PROVIDER, HISTORICAL omeprazole (PriLOSEC) 40 mg Capsule, Delayed Release(E.C.) Take 40 mg by mouth daily. 05/25/21 PROVIDER, HISTORICAL Advair Diskus 250-50 mcg/dose Disk with Device Inhale 250 puffs into the lungs 2 times daily. 01/23/21 PROVIDER, HISTORICAL Spiriva with HandiHaler 18 mcg Capsule, w/Inhalation Device Inhale 18 mcg into the lungs daily. 01/23/21 PROVIDER, HISTORICAL Allergies: Allergies Allergen Reactions ??? Magnesium Oxide Rash ??? Amitriptyline Patient reports agitation and insomnia Objective: No data found. General: This is a 51 y.o. 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 Assessment and Plan: Mr. Alexis Pelayo is a 51 y.o. gentleman with a history of metastatic lung cancerwho presents to the Interventional Pulmonology clinic for evaluation of a large fluid filled bullae as well as FDG avidity in the wall of the cavity. Though Mr. 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 We discussed that per our Comprehensive Thoracic Oncology Program multi- disciplinary tumor board, the recommendation was to pursue fluid sampling to help guide therapy. We discussed options of surgery vs bronchoscopy vs IR guided drainage and opted to proceed with an IR guided drain. Mr. Pelayo is adamantthat he does NOT wish to pursue any of these options as he is feeling so well. He understands that there could be underlying infection, including fungal infection, as well as malignancy. He states the only way he will allow any sampling is if he starts to become symptomatic. He will let me know should that occur and we can pursue sampling at that time. I personally performed a total of 40min of aggregate time involved in patient evaluation, reviewingmedical records, interpreting diagnostic studies (imaging and/or labs), formulating my plan, and documentation of this consultation note. Román Valdivia MD, 04/03/2022, 9:16 AM Interventional Pulmonology Section of Pulmonary & Critical Care Pager: [phone] documented in this encounter Plan of Treatment Upcoming Encounters Date Type Department Care Team (Late st Contact Info) Description 09/22/2023 2:30 PM EDT Office Visit Hematology/Oncology at [address] [phone] Cody Frazier MD [facility] DR [place] [address] documented as of this encounter Visit Diagnoses Diagnosis Abscess of upper lobe of left lung without pneumonia Primary malignant neoplasm of right lung metastatic to other site Bullous emphysema Emphysematous bleb documented in this encounter Care Teams Glass Tube Bender Relationship Specialty Start Date End Date None None PCP - General 04/03/22 04/24/23 documented as of this encounter
--- OUTSIDE RECORDS SUMMARY | 2023-09-15 02:22 | XMS_ITS | Encounter Summary ---
Author Organization [facility] Address [facility] [place] [address] Care Team Providers Care Burlap Roll Coverer Name Role Phone Arias Mast DNP Primary Care Provider [phone] Reason for Visit * Reason Comments Chemotherapy C10D1 Pembrolizumab * Treatment/Therapy Plan Authorization (Routine) - [...] (Paraplatin) AUC = 5 Cody Frazier MD [address] [place] [address] DR [place] [address] Cody Frazier MD [address] [place] [address] DR [place] [address] Referral ID Status Reason Start Date Expiration Date Visits Re quested Visits Authorized [id number] Closed 02/10/2022 2022 99 99 Encounter Details Date Type Department Care Team (Late st Contact Info) Description 03/11/2022 12:30 PM EST Infusion Hematology Oncology at [address] [phone] Secondary malignant neoplasm of bone; [...] Progress Notes * Mohini Caal RN - 03/11/2022 12:30 PM EST INFUSION THERAPY ADMINISTRATION NOTES DIAGNOSIS: NSCLC CYCLE #: Cycle 10, Day 1 - Single agent Pembrolizumab REASON FOR VISIT: To receive single agent immunotherapy. SUBJECTIVE: Alexis offers no complaints, he met with Dr. Frazier today prior to infusion, ready for treatment. OBJECTIVE: Seen by provider. Ready to treat. LAB DATA: completed 03/11/22 at [facility] adequate for treatment IV ACCESS: [...] PM EDT Office Visit Hematology/Oncology at [address] [phone] Cody Frazier MD [facility] DR HEMATOLOGY [place] [address] documented as of this encounter Visit Diagnoses [...] 200 mg, Intravenous, ONCE, 1 dose, On 03/11/22 at 1330, Administer over 30 Minutes, Flush line with NS after each dose., This agent is restricted to outpatient use. Is this drug being given as an outpatient? Yes New Bag 03/11/2022 12:45 PM EST 200 mg 21 6 mL/hr documented in this encounter Care Teams Burlap Roll Coverer Relationship Specialty Start Date End Date Arias Mast DNP PCP - General Family Medicine 02/14/21 04/02/22 documented as of this encounter
--- OUTSIDE RECORDS SUMMARY | 2023-09-15 02:22 | XMS_ITS | Encounter Summary ---
Author Organization [facility] Address [facility] [place] [address] Care Team Providers Care Contact Lens Manufacturer Name Role Phone None Primary Care Provider Unavailabl e Reason for Visit * Treatment/Therapy Plan Authorization (Routine) - Closed Specialty Diagnoses / Procedures Referred By Contshayla t Referred To Contact Hematology and Oncology [...] (Paraplatin) AUC = 5 Cody Frazier MD [address] [place] [address] DR [place] [address] Cody Frazier MD [address] [place] [address] DR HEM[place]Y [place] [address] Referral ID Status Reason Start Date Expiration Date Visits Re quested Visits Authorized [id number] Closed 02/10/2022 2022 99 99 Encounter Details Date Type Department Care Team (Late Contact Info) Description 04/08/2022 2:00 PM EST Infusion Hematology Oncology at [address] [phone] Social History Tobacco Use Types Packs/Day Years [...] 2:30 PM EDT Office Visit Hematology/Oncology at [address] [phone] Cody Frazier MD [facility] HEMATOLOGY [place] [address] documented as of this encounter Visit Diagnoses Not on filedocumented in this encounter Care Teams Contact Lens Manufacturer Relationship Specialty Start Date End Date None None PCP - General 04/03/22 04/24/23 documented as of this encounter
--- OUTSIDE RECORDS SUMMARY | 2023-09-15 02:22 | XMS_ITS | Encounter Summary ---
Author Organization [facility] Address [facility] [place] [address] Care Team Providers Care Baker Pastry Name Role Phone Arias Mast DNP Primary Care Provider [phone] Reason for Visit * Reason Onset Date Comments Medication Refill 02/28/2022 Encounter Details Date Type Department Care Team (Late st Contact Info) Description 02/28/2022 Refill Hematology/Oncology at [address] [phone] Bea Grimes APRN [address] [place] [place] [address] DR HEMATOLOGY [place] [address] Secondary malignant neoplasm of bone; [...] PM EDT Office Visit Hematology/Oncology at [address] [phone] Cody Frazier MD [facility] DR HEMATOLOGY [place] [address] documented as of this encounter Visit Diagnoses Diagnosis 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
--- OUTSIDE RECORDS SUMMARY | 2023-09-15 02:22 | XMS_ITS | Encounter Summary ---
Author Organization [facility] Address [facility] [place] [address] Care Team Providers Care Machine Rug Cleaner Name Role Phone Arias Mast DNP Primary Care Provider [phone] Reason for Visit * Reason Onset Date Comments Other 01/16/2022 transportation Encounter Details Date Type Department Care Team (Late st Contact Info) Description 01/16/2022 Telephone Hematology/Oncology at [address] [phone] Lorraine Huerta, DIRECTOR OF OCCUPATIONAL THERAPY OFFICE OF CARE MANAGEMENT Other (transportation) Social [...] Telephone Encounter - Lorraine Huerta MSW - 01/16/2022 12:07 PM EST Request receive to set up a ride for Alexis for his pulmonology appointment on 01-23-22 at [facility]. TCpt re this. Messaged RCT with the following - 01-23-22 [facility] 5c @ 4:00 Home @ 5:00. Pt is agreeable to this plan. Care Coordination Transportation resources documented in this encounter Plan of Treatment Upcoming Encounters Date Type Department Care Team (Late st Contact Info) Description 09/22/2023 2:30 PM EDT Office Visit Hematology/Oncology at [address] [phone] [facility] DR [place] [address] documented as of this encounter Visit Diagnoses Not on filedocumented in this encounter Care Teams Machine Rug Cleaner Relationship Specialty Start Date End Date Arias Mast DNP PCP - General Family Medicine 02/14/21 04/02/22 documented as of this encounter
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
--- OUTSIDE RECORDS SUMMARY | 2023-09-15 02:22 | XMS_ITS | Encounter Summary ---
Author Organization [facility] Address [facility] [place] [address] Care Team Providers Care Rotogravure Press Operator Name Role Phone Arias Mast DNP Primary Care Provider [phone] Reason for Visit * Reason Onset Date Comments Medication Refill 02/13/2022 Long acting mo rphine Encounter Details Date Type Department Care Team (Late st Contact Info) Description 02/13/2022 Refill Hematology/Oncology at [address] [phone] Cody Frazier MD [facility] DR HEMAT[place] [address] Malignant neoplasm of lower lobe, right bronchus [...] encounter Miscellaneous Notes * Telephone Encounter - Mohini Caal RN - 02/13/2022 9:51 AM EST Pt requesting refill stating he has one day left. 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
--- OUTSIDE RECORDS SUMMARY | 2023-09-15 02:22 | XMS_ITS | Encounter Summary ---
Author Organization [facility] Address [facility] [place] [address] Care Team Providers Care Curve Cleaner Name Role Phone Arias Mast DNP Primary Care Provider [phone] Reason for Visit * Reason Onset Date Comments Other 01/15/2022 transportation Encounter Details Date Type Department Care Team (Late st Contact Info) Description 01/15/2022 Telephone Hematology/Oncology at [address] [phone] Lorraine Huerta, KEY BED INSTALLER OFFICE OF CARE MANAGEMENT Other (transportation) Social [...] Telephone Encounter - Lorraine Huerta MSW - 01/15/2022 7:53 AM EST Messaged RCT to set up Alexis's ride to [facility] on Friday01-18-22 for a PET scan per Ashanti Lira, Clinical Shale Planer Operator. Requested ride as follows - Friday01-18-22 [facility] - Radiology @ 8:30 am Home @ 11 am TC Alexis to inform him of this plan. Care Coordination Transportation resources documented in this encounter Plan of Treatment Upcoming Encounters Date Type Department Care Team (Late st Contact Info) Description 09/22/2023 2:30 PM EDT Office Visit Hematology/Oncology at [address] [phone] Cody Frazier MD [facility] [place] [address] documented as of this encounter Visit Diagnoses Not on filedocumented in this encounter Care Teams Curve Cleaner Relationship Specialty Start Date End Date Arias Mast DNP PCP - General Family Medicine 02/14/21 04/02/22 documented as of this encounter
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
--- OUTSIDE RECORDS SUMMARY | 2023-09-15 02:22 | XMS_ITS | Encounter Summary ---
Author Organization [facility] Address [facility] [place] [address] Care Team Providers Care Copper Etcher Name Role Phone None Primary Care Provider Unavailabl e Reason for Visit * Reason Onset Date Comments Medication Refill 04/12/2022 Encounter Details Date Type Department Care Team (Late st Contact Info) Description 04/12/2022 Refill Hematology/Oncology at [address] [phone] Bea Grimes APRN [address] [place] [address] DR [place] [address] Malignant neoplasm of lower lobe, [...] Telephone Encounter - Bandar Dillard RN - 04/12/2022 9:37 AM EST morphine CR (Ms Contin) 60 mg Tablet Sustained Release [[id number]] Please change pharmacy to Didier Moreno He is completely out documented in this encounter Plan of Treatment Upcoming Encounters Date Type Department Care Team (Late st Contact Info) Description 09/22/2023 2:30 PM EDT Office Visit Hematology/Oncology at [address] [phone] Cody Frazier MD [facility] DR HEMATOLOGY [place] [address] documented as of this encounter Visit Diagnoses Diagnosis Malignant neoplasm of lower lobe, right bronchus or lung 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
--- OUTSIDE RECORDS SUMMARY | 2023-09-15 02:22 | XMS_ITS | Encounter Summary ---
Author Organization [facility] Address [facility] [place] [address] Care Team Providers Care Teletype Adjuster Name Role Phone Arias Mast DNP Primary Care Provider [phone] Encounter Details Date Type Department Care Team (Late st Contact Info) Description 01/14/2022 Orders Only Hematology Oncology at [address] [phone] Deanne Nelson, RN Social History [...] PM EDT Office Visit Hematology/Oncology at [address] [phone] Cody Frazier MD [facility] DR HEMATOLOGY [place] [address] documented as of this encounter Visit Diagnoses Not on filedocumented in this encounter Care Teams Teletype Adjuster Relationship Specialty Start Date End Date Arias Mast DNP PCP - General Family Medicine 02/14/21 04/02/22 documented as of this encounter
--- OUTSIDE RECORDS SUMMARY | 2023-09-15 02:22 | XMS_ITS | Encounter Summary ---
Author Organization [facility] Address [facility] [place] [address] Care Team Providers Care Fire Sprinkler Installer Name Role Phone Arias Mast DNP Primary Care Provider [phone] Reason for Visit * Reason Onset Date Comments Medication Refill 03/27/2022 Encounter Details Date Type Department Care Team (Late st Contact Info) Description 03/27/2022 Refill Hematology Oncology at [address] [phone] Bea Grimes APRN [address] [place] [address] DR [place] [address] Secondary malignant neoplasm of bone; [...] Telephone Encounter - Mohini Caal RN - 03/27/2022 11:07 AM EST ----- Message from Anna Ernandez sent at 03/27/2022 10:55 AM EST ----- Regarding: morphine IR (MSIR) 15 mg Tablet [[id number]] Alexis called to get an order out for a refill on his morphine IR (MSIR) 15 mg Tablet [[id number]]. He said he has a few days left but will be running out over the weekend and he wanted to put in an order now so he can pick one up this week. He would like them to go to [facility]. 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
--- OUTSIDE RECORDS SUMMARY | 2023-09-15 02:22 | XMS_ITS | Encounter Summary ---
Author Organization [facility] Address [facility] [place] [address] Care Team Providers Care Naturopathic Doctor Name Role Phone Arias Mast DNP Primary Care Provider [phone] Encounter Details Date Type Department Care Team (Late st Contact Info) Description 03/15/2022 Orders Only Hematology [place] [phone] Cody Frazier MD [facility] DR HEMATOLOGY [place] [address] Malignant neoplasm of lower lobe, right bronchus [...] PM EDT Office Visit Hematology/Oncology at [address] [phone] Cody Frazier MD [facility] DR HEMATOLOGY [place] [address] documented as of this encounter Visit Diagnoses Diagnosis Malignant neoplasm of lower lobe, right bronchus or lung documented in this encounter Care Teams Naturopathic Doctor Relationship Specialty Start Date End Date Arias Mast DNP PCP - General Family Medicine 02/14/21 04/02/22 documented as of this encounter
--- OUTSIDE RECORDS SUMMARY | 2023-09-15 02:22 | XMS_ITS | Encounter Summary ---
Author Organization [facility] Address [facility] [place] [address] Care Team Providers Care Concrete Puddler Name Role Phone Arias Mast DNP Primary Care Provider [phone] Encounter Details Date Type Department Care Team (Late st Contact Info) Description 01/14/2022 Notes Only Hematology/Oncology at [address] [phone] Lorraine Huerta, CLOUD OPERATIONS ENGINEER OFFICE OF CARE MANAGEMENT Social History Tobacco [...] Progress Notes * Lorraine Huerta MSW - 01/14/2022 2:[address] Frazier's request.follow up with Alexis during his clinic visit today. Notified he will be having a appointment/visit at [facility] and will need help setting up [facility] transportation. SINGH asked to be notified when appointment is and will set up ride through RCT. Alexis is agreeable to this plan. Care Coordination Transportation resources documented in this encounter Plan of Treatment Upcoming Encounters Date Type Department Care Team (Late st Contact Info) Description 09/22/2023 2:30 PM EDT Office Visit Hematology/Oncology at [address] [phone] Cody Frazier MD [facility] [address] [place] [address] documented as of this encounter Visit Diagnoses Not on filedocumented in this encounter Care Teams Concrete Puddler Relationship Specialty Start Date End Date Arias Mast DNP PCP - General Family Medicine 02/14/21 04/02/22 documented as of this encounter
--- OUTSIDE RECORDS SUMMARY | 2023-09-15 02:22 | XMS_ITS | Encounter Summary ---
Author Organization [facility] Address [facility] [place] [address] Care Team Providers Care Mechanical Maintenance Engineer Name Role Phone Arias Mast DNP Primary Care Provider [phone] Encounter Details Date Type Department Care Team (Late st Contact Info) Description 02/18/2022 Notes Only Hematology/Oncology at [address] [phone] Lorraine Huerta, HOT PLATE PL[employer]OD PRESS FEEDER OFFICE OF CARE MANAGEMENT Social History Tobacco [...] Progress Notes * Lorraine Huerta MSW - 02/18/2022 12:30 PM EST Follow up with Alexis during his infusion visit today. He is asking for assistance in setting upo his ride with RCT to his appointment at [facility] on 03-20-22 for a scan and provider follow up visit. Messaged RCT with this request. Care Coordination Transportation resources documented in this encounter Plan of Treatment Upcoming Encounters Date Type Department Care Team (Late st Contact Info) Description 09/22/2023 2:30 PM EDT Office Visit Hematology/Oncology at [address] [phone] Cody Frazier MD [facility] DR HEMATOLOGY [place] [address] documented as of this encounter Visit Diagnoses Not on filedocumented in this encounter Care Teams Mechanical Maintenance Engineer Relationship Specialty Start Date End Date Arias Mast DNP PCP - General Family Medicine 02/14/21 04/02/22 documented as of this encounter
--- OUTSIDE RECORDS SUMMARY | 2023-09-15 02:22 | XMS_ITS | Encounter Summary ---
Author Organization [facility] Address [facility] [place] [address] Care Team Providers Care Fingernail Sculpturer Name Role Phone None Primary Care Provider Unavailabl e Encounter Details Date Type Department Care Team (Latest Contact Info) Description 04/03/2022 Travel Social History Tobacco Use Types Packs/Day [...] PM EDT Office Visit Hematology/Oncology at [address] [phone] Cody Frazier MD [facility] [address] [place] [address] documented as of this encounter Visit Diagnoses Not on filedocumented in this encounter Care Teams Fingernail Sculpturer Relationship Specialty Start Date End Date None None PCP - General 04/03/22 04/24/23 documented as of this encounter
--- OUTSIDE RECORDS SUMMARY | 2023-09-15 02:22 | XMS_ITS | Encounter Summary ---
Author Organization [facility] Address [facility] [place] [address] Care Team Providers Care Duck Bill Operator Name Role Phone None Primary Care Provider Unavailabl e Reason for Referral * Diagnostic Test (Routine) - Closed Specialty Diagnoses / Procedures Referred By Contac t Referred To Contact Radiology Diagnoses Abscess of upper lobe of left lung without pneumonia Procedures CT Chest wo Contrast (Generic) Román Valdivia MD [facility] [place] [address] [facility] [place] [address] Referral ID Status Reason Start Date Expiration Date V isits Requested Visits Authorized [id number] Closed Specialty Service Requested 02/12/2022 08/13/2023 1 1 Reason for Visit * Diagnostic Test (Routine) - Closed Specialty Diagnoses / Procedures Referred By Contac t Referred To Contact Radiology Diagnoses Abscess of upper lobe of left lung without pneumonia Procedures CT Chest wo Contrast (Generic) Román Valdivia MD [facility] [place] [address] [facility] [place] [address] Referral ID Status Reason Start Date Expiration Date V isits Requested Visits Authorized [id number] Closed Specialty Service Requested 02/12/2022 08/13/2023 1 1 Encounter Details Date Type Department Care Team (Latest Contact Info) Description 04/03/2022 12:35 PM EST - 04/03/2022 11:59 PM EST Hospital Encounter CT Scan at [facility] [place] [address] Román Valdivia MD [facility] [place] [address] Abscess of upper lobe of left lung without pneumonia Discharge Disposition: Home Social History Tobacco Use [...] Sig Dispensed Refills Start Date End Date prochlorperazine (Compazine) 10 mg Tablet Take 1 [...] 18 mcg into the lungs daily. 01/23/2021 mirtazapine (Remeron) 15 mg tablet Take 15 mg by mouth nightly. 03/22/2021 04/23/2023 morphine IR (MSIR) 15 mg TabletIndications:Ko tavarez malignant neoplasm of bone,Malignant neoplasm of lower lobe, right bronchus or lung Take 1 tablet by mouth 3 times daily as needed for Pain. PRN 60 tablet 03/27/2022 04/17/2022 morphine CR (Ms Contin) 60 mg Tablet Sustained Release Take 1 tablet by mouth 3 times daily. 84 tablet 03/15/2022 04/12/2022 pregabalin (Lyrica) 50 mg Capsule Take 1 capsule by mouth 2 times daily. 60 tablet 9 02/26/2022 05/07/2022 amoxicillin-clavulanate (Augmentin) 875-125 mg Tablet Take 1 tablet by mouth 2 times daily. 60 tablet 02/12/2022 05/22/2022 naproxen sodium (ALEVE) 220 mg Capsule Take 1 capsule by mouth every 12 hours. Take with food. 90 capsule 07/05/2021 04/23/2023 omeprazole (PriLOSEC) 40 mg Capsule, Delayed Release(E.C.) Take 40 mg by mouth daily. 05/25/2021 05/22/2022 Advair Diskus 250-50 mcg/dose Disk with Device Inhale 250 puffs into the lungs 2 times daily. 01/23/2021 04/26/2023 documented as of this encounter Plan of Treatment Upcoming Encounters Date Type Department Care Team (Late st Contact Info) Description 09/22/2023 2:30 PM EDT Office Visit Hematology/Oncology at [address] [phone] Cody Frazier MD [facility] [address] [place] [address] documented as of this encounter Procedures Procedure Name Priority Date/Time Associated Diagnosis Comments CT CHEST WO CONTRAST (GENERIC) Routine 04/03/2022 12:52 PM EST Abscess of upper lobe of left lung without pneumonia documented in this encounter Results * CT Chest wo Contrast (Generic) (04/03/2022 12:52 PM EST) Anatomical Region Laterality Modality Chest Computed Tomogra phy Impressions 04/03/2022 2:36 PM EST 1. ??The fluid-filled bullae in the right upper lobe are similar in appearance to the prior study in December.. 2. ??Atelectasis and effusion extending inferiorly into the right lower lobe posteriorly have decreased. 3. ??Abnormality of the right ninth rib. There is an old fracture of the 11th rib. Lack of other relevant history suggests this is an old traumatic lesion. Thank you for letting us participate in the care of this patient. ??If you are a health care provider and have any questions regarding this report, please contact the number below. ??For patients who have questions please contact the health nonfarm animal caretaker that requested your imaging first. ? Narrative 04/03/2022 2:36 PM EST EXAMINATION: CT CHEST WO CONTRAST (GENERIC) CLINICAL HISTORY: Abscess, lung or mediastinum; lung abscess TECHNIQUE: Helical CT of the chest without intravenous contrast administration. Thin-section reconstructions as well as coronal and sagittal reformatted images were generated. COMPARISON: 10/11/2021, 01/09/2022 FINDINGS: Pulmonary parenchyma: There is moderately severe emphysema with apical bullae bilaterally. There is a large air and fluid filled cavity in the right upper lobe occupying a large bulla visible on the 10/11/2021 study.. It measures 12.0 cm AP by 11.2 cm transverse by 13.0 cm cephalocaudad diameter. This compares to 10.8 x 10.9 x 15.2 cm on the 01/09/2022 study. There is a smaller complex air and fluid collection anterior to this in the upper lobe, also within a pre-existing bulla... It measures 3.8 x 10.7 x 6.8 cm. This compares to 3.6 x 6.7 x 7.2 cm on the prior study. There is a septation between the lesions with a probable 4 mm central void in the septation. (4:196). A small amount of fluid and atelectasis extends posteroinferiorly from the inferior margin of the dominant lesion into the lower lobe. The amount of fluid and atelectasis have decreased since the prior in December.. There is no new pulmonary pathology. Airways: No central endobronchial abnormality. Pleura: No effusion. Lymph nodes: No pathologic lymphadenopathy. Heart and vasculature: Normal size of the heart. No significant pericardial effusion. Normal caliber of the thoracic aorta. Other mediastinal structures: No significant findings. Upper abdomen: No significant findings. Skeletal structures: Partial destruction of the posterior margin of the right ninth rib with surrounding soft tissue thickening. Old fracture of the right 11th rib. Significance uncertain. The abnormality of the right ninth rib preceded the development of the air-fluid levels in the bullae making it unlikely this is infectious. There is no other bone destruction to suggest metastatic disease. Given the 11th rib fracture, this could be an old traumatic lesion. Procedure Note Erik Hdz III, MD - 04/03/2022 EXAMINATION: CT CHEST WO CONTRAST (GENERIC) CLINICAL HISTORY: Abscess, lung or mediastinum; lung abscess TECHNIQUE: Helical CT of the chest without intravenous contrastadministration. Thin-section reconstructions as well as coronal and sagittal reformattedimages were generated. COMPARISON: 10/11/2021, 01/09/2022 FINDINGS: Pulmonary parenchyma: There is moderately severe emphysema with apical bullae bilaterally. There is a large air and fluid filled cavity in the right upper lobeoccupying a large bulla visible on the 10/11/2021 study.. It measures 12.0 cm AP by 11.2cm transverse by 13.0 cm cephalocaudad diameter. This compares to 10.8 x 10.9x 15.2 cm on the 01/09/2022 study. There is a smaller complex air andfluid collection anterior to this in the upper lobe, also within apre-existing bulla... It measures 3.8 x 10.7 x 6.8 cm. This compares to 3.6 x 6.7 x 7.2cm on the prior study. There is a septation between the lesions with a probable4 mm central void in the septation. (4:196). A small amount of fluid and atelectasis extends posteroinferiorly fromthe inferior margin of the dominant lesion into the lower lobe. The amount offluid and atelectasis have decreased since the prior in December.. There is no new pulmonary pathology. Airways: No central endobronchial abnormality. Pleura: No effusion. Lymph nodes: No pathologic lymphadenopathy. Heart and vasculature: Normal size of the heart. No significantpericardial effusion. Normal caliber of the thoracic aorta. Other mediastinal structures: No significant findings. Upper abdomen: No significant findings. Skeletal structures: Partial destruction of the posterior margin of theright ninth rib with surrounding soft tissue thickening. Old fracture of theright 11th rib. Significance uncertain. The abnormality of the right ninth rib preceded the development of the air-fluid levels in the bullae making it unlikely this is infectious. There is no other bone destruction tosuggest metastatic disease. Given the 11th rib fracture, this could be an oldtraumatic lesion. IMPRESSION 1. The fluid-filled bullae in the right upper lobe are similar inappearance to the prior study in December.. 2. Atelectasis and effusion extending inferiorly into the right lowerlobe posteriorly have decreased. 3. Abnormality of the right ninth rib. There is an old fracture of [id number] rib. Lack of other relevant history suggests this is an old traumaticlesion. Thank you for letting us participate in the care of this patient. If youare a health care provider and have any questions regarding this report,please contact the number below. For patients who have questions please contactthe health nonfarm animal caretaker that requested your imaging first. Román Valdivia MD IMG CT ORDERABL ES documented in this encounter Visit Diagnoses Diagnosis Abscess of upper lobe of left lung without pneumonia documented in this encounter Care Teams Duck Bill Operator Relationship Specialty Start Date End Date None None PCP - General 04/03/22 04/24/23 documented as of this encounter
--- OUTSIDE RECORDS SUMMARY | 2023-09-15 02:22 | XMS_ITS | Encounter Summary ---
Author Organization [facility] Address [facility] [place] [address] Care Team Providers Care Guncotton Packer Name Role Phone Arias Mast DNP Primary Care Provider [phone] Encounter Details Date Type Department Care Team (Late st Contact Info) Description 03/11/2022 Notes Only Hematology/Oncology at [address] [phone] Lorraine Huerta, ASSORTMENT PLANNER OFFICE OF CARE MANAGEMENT Social History Tobacco [...] Progress Notes * Lorraine Huerta MSW - 03/11/2022 12:48 PM EST Follow up with Alexis during his infusion visit today. He asked that ASSORTMENT PLANNER notify [facility] about the change in his appointment at [facility] for a scan and provider visit. Messaged RCT with the following - 04-03-22 arrive at [facility] @ 12:45 pm for 3Z radiology for scan and a provider visit to follow; home @ 3pm. Alexis aware and agreeable to this plan. Transportation resources documented in this encounter Plan of Treatment Upcoming Encounters Date Type Department Care Team (Late st Contact Info) Description 09/22/2023 2:30 PM EDT Office Visit Hematology/Oncology at [address] [phone] Cody Frazier MD [facility] [place] [address] documented as of this encounter Visit Diagnoses Not on filedocumented in this encounter Care Teams Guncotton Packer Relationship Specialty Start Date End Date Arias Mast DNP PCP - General Family Medicine 02/14/21 04/02/22 documented as of this encounter
--- OUTSIDE RECORDS SUMMARY | 2023-09-15 02:22 | XMS_ITS | Encounter Summary ---
Author Organization [facility] Address [facility] [place] [address] Care Team Providers Care Evaluator Name Role Phone Arias Mast DNP Primary Care Provider [phone] Encounter Details Date Type Department Care Team (Late st Contact Info) Description 01/18/2022 Orders Only Hematology [place] [address] Cody Frazier MD [facility] [address] [place] [address] Social History Tobacco Use Types Packs/Day Years [...] PM EDT Office Visit Hematology/Oncology at [address] [phone] Cody Frazier MD [facility] DR [place] [address] documented as of this encounter Visit Diagnoses Not on filedocumented in this encounter Care Teams Evaluator Relationship Specialty Start Date End Date Arias Mast DNP PCP - General Family Medicine 02/14/21 04/02/22 documented as of this encounter
--- OUTSIDE RECORDS SUMMARY | 2023-09-15 02:22 | XMS_ITS | Encounter Summary ---
Author Organization [facility] Address [facility] [place] [address] Care Team Providers Care Director Day Care Center Name Role Phone None Primary Care Provider Unavailabl e Reason for Visit * Reason Onset Date Comments Medication Refill 04/17/2022 MSIR Encounter Details Date Type Department Care Team (Late st Contact Info) Description 04/17/2022 Refill Hematology/Oncology at [address] [phone] Bea Grimes APRN [address] [place] [address] DR HEMATOLOGY [place] [address] Secondary malignant neoplasm of bone; [...] PM EDT Office Visit Hematology/Oncology at [address] [phone] Cody Frazier MD [facility] DR HEMATOLOGY [place] [address] documented as of this encounter Visit Diagnoses 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
--- OUTSIDE RECORDS SUMMARY | 2023-09-15 02:22 | XMS_ITS | Encounter Summary ---
Author Organization [facility] Address [facility] [place] [address] Care Team Providers Care Farm Labor Contractor Name Role Phone Arias Mast DNP Primary Care Provider [phone] Encounter Details Date Type Department Care Team (Late st Contact Info) Description 02/14/2022 Telephone Pulmonology at [facility] [place] [phone] Darcy Dominguez Social History Tobacco Use Types Packs/Day Years [...] PM EDT Office Visit Hematology/Oncology at [address] [phone] Cody Frazier MD [facility] DR [place] [address] documented as of this encounter Visit Diagnoses Not on filedocumented in this encounter Care Teams Farm Labor Contractor Relationship Specialty Start Date End Date Arias Mast DNP PCP - General Family Medicine 02/14/21 04/02/22 documented as of this encounter
--- OUTSIDE RECORDS SUMMARY | 2023-09-15 02:22 | XMS_ITS | Encounter Summary ---
Author Organization [facility] Address [facility] [place] [address] Care Team Providers Care Courtroom Reporter Name Role Phone Arias Mast DNP Primary Care Provider [phone] Encounter Details Date Type Department Care Team (Latest Contact Info) Description 01/16/2022 Travel Social History Tobacco Use Types Packs/Day [...] PM EDT Office Visit Hematology/Oncology at [address] [phone] Cody Frazier MD [facility] DR [place] [address] documented as of this encounter Visit Diagnoses Not on filedocumented in this encounter Care Teams Courtroom Reporter Relationship Specialty Start Date End Date Arias Mast DNP PCP - General Family Medicine 02/14/21 04/02/22 documented as of this encounter
--- OUTSIDE RECORDS SUMMARY | 2023-09-15 02:22 | XMS_ITS | Encounter Summary ---
Author Organization [facility] Address [facility] [place] [address] Care Team Providers Care Road Equipment Operator Name Role Phone None Primary Care Provider Unavailabl e Encounter Details Date Type Department Care Team (Late st Contact Info) Description 04/12/2022 Telephone Hematology [place] [phone] Buddy Fitzpatrick MD [facility] DR HEMATOLOGY/[place] [address] Social History Tobacco Use Types Packs/Day Years [...] encounter Miscellaneous Notes * Telephone Encounter - Buddy Fitzpatrick MD - 04/12/2022 6:29 PM EST Brief Telephone Call Alexis is calling because he is completely out of his extended release morphine that was due for refill today. On my review, he has a pended but not filled order. I have replaced the pended order with a refill of his ms contin. This has been sent to [facility] in [facility]. I will alert Dr. Frazier that this has been refilled. Buddy Fitzpatrick MD Hematology/Oncology Fellow documented in this encounter Plan of Treatment Upcoming Encounters Date Type Department Care Team (Late st Contact Info) Description 09/22/2023 2:30 PM EDT Office Visit Hematology/Oncology at [address] [phone] Cody Frazier MD [facility] [address] HEMATOLOGY [place] [address] documented as of this encounter Visit Diagnoses Not on filedocumented in this encounter Care Teams Road Equipment Operator Relationship Specialty Start Date End Date None None PCP - General 04/03/22 04/24/23 documented as of this encounter
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
--- OUTSIDE RECORDS SUMMARY | 2023-09-15 02:22 | XMS_ITS | Encounter Summary ---
Author Organization [facility] Address [facility] [place] [address] Care Team Providers Care Policy Change Clerk Name Role Phone None Primary Care Provider Unavailabl e Reason for Visit * Reason Comments Chemotherapy [id number] * Treatment/Therapy Plan Authorization (Routine) - Closed [...] (Paraplatin) AUC = 5 Cody Frazier MD [address] [place] [address] DR HEMATOLOGY [place] [address] Cody Frazier MD [address] [place] [address] DR HEMATOLOGY [place] [address] Referral ID Status Reason Start Date Expiration Date Visits Re quested Visits Authorized [id number] Closed 02/10/2022 2022 99 99 Encounter Details Date Type Department Care Team (Late st Contact Info) Description 04/29/2022 2:00 PM EDT Infusion Hematology Oncology at [address] [phone] Secondary malignant neoplasm of bone; Medication management; [...] as of this encounter Progress Notes * Melina Randolph RN - 04/29/2022 2:00 PM EDT INFUSION THERAPY ADMINISTRATION NOTES DIAGNOSIS: NSCLC CYCLE #: Cycle 11, Day 1 - Single agent Pembrolizumab REASON FOR VISIT: To receive single agent immunotherapy. SUBJECTIVE: Alexis offers no complaints, he met with Dr. Frazier today prior to infusion, ready for treatment. OBJECTIVE: Seen by provider. Ready to treat. LAB DATA: completed today at [facility] adequate for treatment IV ACCESS: PIV Pre administration: Chemotherapy orders independently verified for drug name, route, and dosage per patient's height, weight and BSA by Melina Grant, PATRICIA and Staff Pharmacist(s). REACTIONS (DESCRIPTION, TIME, INTERVENTION AND EFFECTIVENESS) none ASSESSMENT: Alexis was awake, alert and tolerated treatment well. PIV discontinued prior to dismissal. PLAN: Return to clinic in three weeks. documented in this encounter Plan of Treatment Upcoming Encounters Date Type Department Care Team (Late st Contact Info) Description 09/22/2023 2:30 PM EDT Office Visit Hematology/Oncology at [address] [phone] Cody Frazier MD [facility] DR [place] [address] documented as of this encounter Visit Diagnoses [...] 200 mg, Intravenous, ONCE, 1 dose, On 04/29/22 at 1545, Administer over 30 Minutes, Flush line with NS after each dose., This agent is restricted to outpatient use. Is this drug being given as an outpatient? Yes New Bag 04/29/2022 2:56 PM EDT 200 mg 216 mL/hr documented in this encounter Care Teams Policy Change Clerk Relationship Specialty Start Date End Date None None PCP - General 04/03/22 04/24/23 documented as of this encounter
--- OUTSIDE RECORDS SUMMARY | 2023-09-15 02:22 | XMS_ITS | Encounter Summary ---
Author Organization [facility] Address [facility] [place] [address] Care Team Providers Care Brewing Technician Name Role Phone Arias Mast DNP Primary Care Provider [phone] Encounter Details Date Type Department Care Team (Late st Contact Info) Description 01/22/2022 Telephone Pulmonology at [facility] [place] [phone] Yolande Ricks, CT Social History Tobacco Use Types Packs/Day Years [...] encounter Miscellaneous Notes * Telephone Encounter - Yolande Ricks RMA - 01/22/2022 12:44 PM EST Spoke with pt... allergies, meds, & tobacco reviewed. documented in this encounter Plan of Treatment Upcoming Encounters Date Type Department Care Team (Late st Contact Info) Description 09/22/2023 2:30 PM EDT Office Visit Hematology/Oncology at [address] [phone] Cody Frazier MD [facility] DR HEMATOLOGY [place] [address] documented as of this encounter Visit Diagnoses Not on filedocumented in this encounter Care Teams Brewing Technician Relationship Specialty Start Date End Date Arias Mast DNP PCP - General Family Medicine 02/14/21 04/02/22 documented as of this encounter
--- OUTSIDE RECORDS SUMMARY | 2023-09-15 02:22 | XMS_ITS | Encounter Summary ---
Author Organization [facility] Address [facility] [place] [address] Care Team Providers Care Operating Systems Specialist Name Role Phone Arias Mast DNP Primary Care Provider [phone] Reason for Visit * Reason Onset Date Comments Prior Authorization 02/13/2022 [facility] Encounter Details Date Type Department Care Team (Late st Contact Info) Description 02/13/2022 Telephone Hematology/Oncology at [address] [phone] Bandar Dillard RN Prior Authorization ([facility]) Social History Tobacco Use Types Packs/Day Years [...] Telephone Encounter - Bandar Dillard RN - 02/13/2022 12:30 PM EST THOMAS for MS BROWN signed and faxed to [facility] [place] [facility], , fax confirmed. documented in this encounter Plan of Treatment Upcoming Encounters Date Type Department Care Team (Late st Contact Info) Description 09/22/2023 2:30 PM EDT Office Visit Hematology/Oncology at [address] [phone] Cody Frazier MD [facility] HEMATOLOGY [place] [address] documented as of this encounter Visit Diagnoses Not on filedocumented in this encounter Care Teams Operating Systems Specialist Relationship Specialty Start Date End Date Arias Mast DNP PCP - General Family Medicine 02/14/21 04/02/22 documented as of this encounter
--- OUTSIDE RECORDS SUMMARY | 2023-09-15 02:22 | XMS_ITS | Encounter Summary ---
Author Organization [facility] Address [facility] [place] [address] Care Team Providers Care Insurance Adjuster Name Role Phone Arias Mast DNP Primary Care Provider [phone] Encounter Details Date Type Department Care Team (Latest Contact Info) Description 01/23/2022 Travel Social History Tobacco Use Types Packs/Day [...] PM EDT Office Visit Hematology/Oncology at [address] [phone] Cody Frazier MD [facility] DR [place] [address] documented as of this encounter Visit Diagnoses Not on filedocumented in this encounter Care Teams Insurance Adjuster Relationship Specialty Start Date End Date Arias Mast DNP PCP - General Family Medicine 02/14/21 04/02/22 documented as of this encounter
--- OUTSIDE RECORDS SUMMARY | 2023-09-15 02:22 | XMS_ITS | Encounter Summary ---
Author Organization [facility] Address [facility] [place] [address] Care Team Providers Care Leadite Worker Name Role Phone None Primary Care Provider Unavailabl e Encounter Details Date Type Department Care Team (Late st Contact Info) Description 04/17/2022 Orders Only Hematology/Oncology at [address] [phone] Mohini Caal, RN Social History Tobacco Use Types Packs/Day [...] PM EDT Office Visit Hematology/Oncology at [address] [phone] Cody rFazier MD [facility] DR [place]EMATOLOGY [place] [address] documented as of this encounter Visit Diagnoses Not on filedocumented in this encounter Care Teams Leadite Worker Relationship Specialty Start Date End Date None None PCP - General 04/03/22 04/24/23 documented as of this encounter
--- OUTSIDE RECORDS SUMMARY | 2023-09-15 02:22 | XMS_ITS | Encounter Summary ---
Author Organization [facility] Address [facility] [place] [address] Care Team Providers Care Financial Associate Name Role Phone Arias Mast DNP Primary Care Provider [phone] Encounter Details Date Type Department Care Team (Late st Contact Info) Description 02/26/2022 Orders Only Hematology [place] [phone] Cody Frazier MD [facility] DR [place] [address] Social History Tobacco Use Types Packs/Day Years [...] PM EDT Office Visit Hematology/Oncology at [address] [phone] Cody Frazier MD [facility] DR [place] [address] documented as of this encounter Visit Diagnoses Not on filedocumented in this encounter Care Teams Financial Associate Relationship Specialty Start Date End Date Arias Mast DNP PCP - General Family Medicine 02/14/21 04/02/22 documented as of this encounter
--- OUTSIDE RECORDS SUMMARY | 2023-09-15 02:22 | XMS_ITS | Encounter Summary ---
Author Organization [facility] Address [facility] [place] [address] Care Team Providers Care Supervisor Yard Name Role Phone Arias Mast DNP Primary Care Provider [phone] Encounter Details Date Type Department Care Team (Latest Contact Info) Description 03/11/2022 Travel Social History Tobacco Use Types Packs/Day [...] Office Visit Hematology/Oncology at [address] [phone] Cody Frazier MD [facility] DR HEMATOLOGY [place] [address] documented as of this encounter Visit Diagnoses Not on filedocumented in this encounter Care Teams Supervisor Yard Relationship Specialty Start Date End Date Arias Mast DNP PCP - General Family Medicine 02/14/21 04/02/22 documented as of this encounter
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
--- OUTSIDE RECORDS SUMMARY | 2023-09-15 02:22 | XMS_ITS | Encounter Summary ---
Author Organization [facility] Address [facility] [place] [id number] Care Team Providers Care Community Center Worker Name Role Phone None Primary Care Provider Unavailabl e Encounter Details Date Type Department Care Team (Latest Contact Info) Description 04/29/2022 Travel Social History Tobacco Use Types Packs/Day [...] PM EDT Office Visit Hematology/Oncology at [address] [phone] Cody Frazier MD [facility] DR HEMATOLOGY [place] [address] documented as of this encounter Visit Diagnoses Not on filedocumented in this encounter Care Teams Community Center Worker Relationship Specialty Start Date End Date None None PCP - General 04/03/22 04/24/23 documented as of this encounter
--- OUTSIDE RECORDS SUMMARY | 2023-09-15 02:22 | XMS_ITS | Encounter Summary ---
Author Organization [facility] Address [facility] [place] [address] Care Team Providers Care Theatre Arts Professor Name Role Phone Arias Mast DNP Primary Care Provider [phone] Encounter Details Date Type Department Care Team (Latest Contact Info) Description 02/18/2022 Travel Social History Tobacco Use Types Packs/Day [...] PM EDT Office Visit Hematology/Oncology at [address] [phone] Cody Frazier MD [facility] DR HEMATOLOGY [place] [address] documented as of this encounter Visit Diagnoses Not on filedocumented in this encounter Care Teams Theatre Arts Professor Relationship Specialty Start Date End Date Arias Mast DNP PCP - General Family Medicine 02/14/21 04/02/22 documented as of this encounter
--- OUTSIDE RECORDS SUMMARY | 2023-09-15 02:22 | XMS_ITS | Encounter Summary ---
Author Organization [facility] Address [facility] [place] [address] Care Team Providers Care Shipping And Receiving Weigher Name Role Phone Arias Mast DNP Primary Care Provider [phone] Encounter Details Date Type Department Care Team (Late st Contact Info) Description 03/15/2022 Orders Only Hematology [place] [address] Cody Frazier MD [facility] DR [place] [address] Malignant neoplasm of lower lobe, right bronchus [...] PM EDT Office Visit Hematology/Oncology at [address] [phone] Cody Frazier MD [facility] DR HEMATOLOGY [place] [address] documented as of this encounter Visit Diagnoses Diagnosis Malignant neoplasm of lower lobe, right bronchus or lung 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
--- OUTSIDE RECORDS SUMMARY | 2023-09-15 02:22 | XMS_ITS | Encounter Summary ---
Author Organization [facility] Address [facility] [place] [address] Care Team Providers Care Protection Consultant Name Role Phone Arias Mast DNP Primary Care Provider [phone] Reason for Referral * Diagnostic Test (Routine) - Closed Specialty Diagnoses / Procedures Referred By Contac t Referred To Contact Radiology Diagnoses Malignant neoplasm of lower lobe, right bronchus or lung Secondary malignant neoplasm of bone Neoplasm related pain Procedures NM [place] PET CT Skull Base to Mid-thigh Cody Frazier MD [facility] DR HEMATOLOGY [place] [address] [place] [address] Referral ID Status Reason Start Date Expiration Date V isits Requested Visits Authorized [id number] Closed Specialty Service Requested 01/14/2022 07/16/2023 1 1 Reason for Visit * Diagnostic Test (Routine) - Closed Specialty Diagnoses / Procedures Referred By Contac t Referred To Contact Radiology Diagnoses Malignant neoplasm of lower lobe, right bronchus or lung Secondary malignant neoplasm of bone Neoplasm related pain Procedures NM [place] PET CT Skull Base to Mid-thigh Cody Frazier MD [facility] DR HEMATOLOGY [place] [address] [place] [address] Referral ID Status Reason Start Date Expiration Date V isits Requested Visits Authorized [id number] Closed Specialty Service Requested 01/14/2022 07/16/2023 1 1 Encounter Details Date Type Department Care Team (Late st Contact Info) Description 01/18/2022 10:00 AM EST - 01/18/2022 11:59 PM [facility] Hospital Encounter Nuclear Medicine at [facility] [place] [address] Cody Frazier MD [facility] DR HEMATOLOGY [place] [address] Malignant neoplasm of lower lobe, right bronchus [...] mg by mouth nightly. 03/22/2021 04/23/2023 morphine CR (Ms Contin) 60 mg Tablet Sustained Release Take 1 tablet by mouth 3 times daily for 28 days. 84 tablet 01/14/2022 02/13/2022 morphine IR (MSIR) 15 mg TabletIndications:Ko tavarez malignant neoplasm of bone,Malignant neoplasm of lower lobe, right bronchus or lung Take 1 tablet by mouth 3 times daily as needed for Pain. 60 tablet 12/31/2021 01/29/2022 pregabalin (Lyrica) 50 mg Capsule Take 1 capsule by mouth 2 times daily. 60 tablet 3 10/22/2021 02/26/2022 naproxen sodium (ALEVE) 220 mg Capsule Take [...] PM EDT Office Visit Hematology/Oncology at [address] [phone] Cody Frazier MD [facility] [address] [place] [address] documented as of this encounter Procedures Procedure Name Priority Date/Time Associated Diagnosis Comments NM MACHADO PET CT SKULL BASE TO MID-THIGH Routine 01/18/2022 10:00 AM EST Malignant neoplasm of lower lobe, right bronchus or lung Secondary malignant neoplasm of bone Neoplasm related pain documented in this encounter Results * NM Mach[place] PET CT Skull Base to Mid-thigh (01/18/2022 10:00 AM EST) Anatomical Region Laterality Modality Positron Emissio n Tomography (PET) Impressions 01/21/2022 4:34 PM EST 1. ??There is been near complete resolution of the hypermetabolic right posterior chest wall mass. Residual activity may be due to tumor or post-therapy inflammation. 2. ??A large right upper lobe bulla has developed an air-fluid level as seen in the most recent CT scan. There is now a uniformly FDG avid wall. The presence of inflammation or infection should be considered. 3. ??As seen in the prior chest CT, the more anterior right upper lobe bulla has developed a thick, irregular wall. The posterior aspect of this wall is moderately FDG avid. Possible causes for this include tumor and infection. 4. ??Hypermetabolic mediastinal and hilar lymphadenopathy is again noted. The presence of metastases should be considered. A hypermetabolic left hilar lymph node is new. Thank you for letting us participate in the care of this patient. ??If you are a health care provider and have any questions regarding this report, please contact the number below. ??For patients who have questions please contact the health career services officer that requested your imaging first. ? Narrative 01/21/2022 4:34 PM EST EXAMINATION: RUST PET CT SKULL BASE TO MID-THIGH CLINICAL HISTORY: Non-small cell lung cancer, assess treatment response 51 yo with locally advanced NSCLC s/p radiation and then chemoimmunotherapy. Restaging exam TECHNIQUE: Following IV injection of 74-ewkgga-0-deoxyglucose (FDG) a standard uptake of approximately 60 minutes, a noncontrast CT scan followed by a PET scan were acquired from the base of the skull to mid thighs. The noncontrast CT was used for anatomic localization and photon attenuation correction of the PET scan. Blood glucose level: 130 (mg/dL) FDG dose: 12 mCi COMPARISON: PET/CT June 15, [address] January 09, 2022 FINDINGS: HEAD/NECK: Normal activity in all soft tissue regions of the neck and visualized lower head. There is an unchanged soft tissue opacity in the right maxillary sinus that may represent a retention cyst or polyp. CHEST: There has been marked improvement in the previously seen right lower chest wall mass. This mass is much smaller in size. Only a mild to moderate amount of FDG activity is present. There is also right lower lobe consolidation which is mildly FDG avid, possibly due to atelectasis or post-therapeutic change. Again seen is severe bullous lung disease, particularly in the right upper lobe. The largest of these bulla has developed an air-fluid level that could be seen in the most recent chest CT. A mildly FDG avid wall is now present. The more anterior bulla has developed a thick irregular wall which is FDG avid along its posterior margin (image 103). Hypermetabolic lymph nodes can be seen in the right paratracheal space, subcarinal space and in the bee bilaterally. The left hilar activity (image 116) was not present previously. Paraseptal emphysema also affects the left upper lobe. Previously seen foci of increased activity in the left upper lobe have almost completely resolved. A small right pleural effusion is present. ABDOMEN/PELVIS: Normal activity in all soft tissue regions. SKELETON/EXTREMITIES: Again seen are destructive changes in the posterior aspects of the right lower ribs. There is a fracture of the posterior right 11th rib. No new destruction is seen. Procedure Note Zev Mcdowell MD - 01/21/2022 EXAMINATION: RUST PET CT SKULL BASE TO MID-THIGH CLINICAL HISTORY: Non-small cell lung cancer, assess treatment response 51 yo with locally advanced NSCLC s/p radiation and thenchemoimmunotherapy. Restaging exam TECHNIQUE: Following IV injection of 75-msinmg-2-deoxyglucose (FDG) astandard uptake of approximately 60 minutes, a noncontrast CT scan followed by aPET scan were acquired from the base of the skull to mid thighs. The noncontrast CTwas used for anatomic localization and photon attenuation correction of thePET scan. Blood glucose level: 130 (mg/dL) FDG dose: 12 mCi COMPARISON: PET/CT June 15, [address] January 09, 2022 FINDINGS: HEAD/NECK: Normal activity in all soft tissue regions of the neck and visualizedlower head. There is an unchanged soft tissue opacity in the right maxillary sinusthat may represent a retention cyst or polyp. CHEST: There has been marked improvement in the previously seen right lower chestwall mass. This mass is much smaller in size. Only a mild to moderate amount ofFDG activity is present. There is also right lower lobe consolidation whichis mildly FDG avid, possibly due to atelectasis or post-therapeutic change. Again seen is severe bullous lung disease, particularly in the right upperlobe. The largest of these bulla has developed an air-fluid level that could beseen in the most recent chest CT. A mildly FDG avid wall is now present. Themore anterior bulla has developed a thick irregular wall which is FDG avidalong its posterior margin (image 103). Hypermetabolic lymph nodes can be seen in the right paratracheal space, subcarinal space and in the bee bilaterally. The left hilar activity(image 116) was not present previously. Paraseptal emphysema also affects the left upper lobe. Previously seenfoci of increased activity in the left upper lobe have almost completely resolved.A small right pleural effusion is present. ABDOMEN/PELVIS: Normal activity in all soft tissue regions. SKELETON/EXTREMITIES: Again seen are destructive changes in the posterior aspects of the rightlower ribs. There is a fracture of the posterior right 11th rib. No newdestruction is seen. IMPRESSION 1. There is been near complete resolution of the hypermetabolic rightposterior chest wall mass. Residual activity may be due to tumor or post-therapy inflammation. 2. A large right upper lobe bulla has developed an air-fluid level asseen in the most recent CT scan. There is now a uniformly FDG avid wall. Thepresence of inflammation or infection should be considered. 3. As seen in the prior chest CT, the more anterior right upper lobebulla has developed a thick, irregular wall. The posterior aspect of this wall is moderately FDG avid. Possible causes for this include tumor andinfection. 4. Hypermetabolic mediastinal and hilar lymphadenopathy is again noted.The presence of metastases should be considered. A hypermetabolic left hilarlymph node is new. Thank you for letting us participate in the care of this patient. If youare a health care provider and have any questions regarding this report,please contact the number below. For patients who have questions please contactthe health career services officer that requested your imaging first. Cody Frazier [...] Intravenous, ONCE PRN, 1 dose, Starting on Fri01/18/22 at 1048, Until Fri01/18/22 at 0815, Per Protocol, Radiology Contrast, Routine Given 01/18/2022 8:15 AM EST 11.5 mCi documented in this encounter Care Teams Protection Consultant Relationship Specialty Start Date End Date Arisa Mast DNP PCP - General Family Medicine 02/14/21 2 documented as of this encounter
--- OUTSIDE RECORDS SUMMARY | 2023-09-15 02:23 | XMS_ITS | Encounter Summary ---
Author Organization [facility] Address [facility] [place] [address] Care Team Providers Care Heatset Winder Operator Name Role Phone Arias Mast DNP Primary Care Provider [phone] Encounter Details Date Type Department Care Team (Late st Contact Info) Description 10/01/2021 10:00 AM EDT Office Visit Hematology/Oncology at [address] [phone] Nadege Bolivar, RD [facility] DR HEMATOLOGY [place] [address] Malignant neoplasm of lower lobe, right bronchus [...] as of this encounter Progress Notes * Katt Nadege Sparks, RD - 10/01/2021 10:00 AM EDT Nutrition Note Missed seeing patient while in infusion today. He is on C4D8 of Abraxane for metastatic NSCLC. I spoke with him briefly on the phone today. He is down about 7# in the past week (5.3% body weight). Patient reports he has been more active. He does not feel he has been eating any less recently. 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 He was about to go get a sandwich at the local [facility]. Offered patient could try ONS samples available in our clinic. He declined, said he is not interested in protein supplements. Wt Readings from Last 10 Encounters: 10/01/21 60.3 kg (133 lb) 09/24/21 63.7 kg (140 lb 6.4 oz) 09/13/21 63.6 kg (140 lb 3.2 oz) 09/03/21 61.4 kg (135 lb 6.4 oz) 08/20/21 63.1 kg (139 lb 3.2 oz) 08/14/21 63 kg (139 lb) 08/06/21 62.1 kg (137 lb) 07/30/21 61.8 kg (136 lb 3.2 oz) 07/23/21 62.8 kg (138 lb 6.4 oz) 07/19/21 62.1 kg (137 lb) BMI 19.04 UBW: 160-165# 7# loss in the past week (5.3% body weight) - clinically signficant Weight has varied at times between 135-140# in the past 2 months Medications: Morphine IR as needed, MS Contin, compazine prn, tylenol prn, aleve prn, omeprazole jeannette Began palliative treatment on 07/23/21--carboplatin, paclitaxel, pembrolizumab, C3D1 today 09/24. Patient is s/p RT on 07/19/21. 10/01/21: Ca 9.0, BG 126H, BUN 12, Creat 0.9, Alb 3.8, TBili 0.2, AlkPhos 69, Na 137, K 4.4, AST 14L, ALT 20, Mg 1.8, TSH 1.05, WBC 4.14, H/H 10.8/32.4L, platelet 307, ANC 2.93 Nutrition Problem: Unintentional weight loss related to increased activity, COPD, metastatic NSCLC as evidenced by 7# loss in the past week (5.3% body weight) - clinically significant. Estimated needs based on current weight of 60.3 [id number] kcals (30-40 kcal/kg) COPD, metastatic NSCLC, weight loss 90-120 g protein (1.5-2 g/kg) 1 ml/kcal Recommendations: * Continue small, frequent meals with high calorie/protein food choices. * Consider reducing physical activity given weight loss and BMI of 19.1. * Patient declines ONS Will continue to follow-up as needed. documented in this encounter Plan of Treatment Upcoming Encounters Date Type Department Care Team (Late st Contact Info) Description 09/22/2023 2:30 PM EDT Office Visit Hematology/Oncology at [address] [phone] Cody Frazier MD [facility] DR HEMATOLOGY [place] [address] documented as of this encounter Visit Diagnoses Diagnosis Malignant neoplasm of lower lobe, right bronchus or lung documented in this encounter Care Teams Heatset Winder Operator Relationship Specialty Start Date End Date Arias Mast DNP PCP - General Family Medicine 02/14/21 04/02/22 documented as of this encounter
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
--- OUTSIDE RECORDS SUMMARY | 2023-09-15 02:23 | XMS_ITS | Encounter Summary ---
Author Organization [facility] Address [facility] [place] [address] Care Team Providers Care Garbage Depot Worker Name Role Phone Arias Mast DNP Primary Care Provider [phone] Reason for Visit * Reason Comments Chemotherapy C7D1 Pembrolizumab * Treatment/Therapy Plan Authorization (Routine) - [...] AUC = 5 Cody Frazier MD [address] [place] [address] DR HEMATOLOGY [place] [address] Cody Frazier MD [address] [place] [address] DR HEMATOLOGY [place] [address] Referral ID Status Reason Start Date Expiration Date Visits Re quested Visits Authorized [id number] Closed 02/10/2022 2022 99 99 Encounter Details Date Type Department Care Team (Late st Contact Info) Description 12/03/2021 11:00 AM EDT Infusion Hematology Oncology at [address] [phone] Secondary malignant neoplasm of bone; [...] Progress Notes * Mohini Caal RN - 12/03/2021 11:00 AM EDT INFUSION THERAPY ADMINISTRATION NOTES DIAGNOSIS: NSCLC CYCLE #: 7, Day 1 - Single agent Pembrolizumab REASON FOR VISIT: To receive single agent immunotherapy. SUBJECTIVE: Alexis offers no complaints, met with provider, ready for treatment OBJECTIVE: LAB DATA: WBC - 8.71, Hg 11.8, Plt Ct - 424, ANC - 6.21, BUN/Cr - 11,1.0 TSH/Free T 4 - 1.06/1.20 IV ACCESS: PIV Pre administration: Chemotherapy orders [...] PM EDT Office Visit Hematology/Oncology at [address] [phone] Cody Frazier MD [facility] DR [place] [address] documented as of this encounter Visit Diagnoses [...] 200 mg, Intravenous, ONCE, 1 dose, On 12/03/21 at 1315, Administer over 30 Minutes, Flush line with NS after each dose., This agent is restricted to outpatient use. Is this drug being given as an outpatient? Yes New Bag 12/03/2021 12:16 PM EDT 200 mg 21 6 mL/hr documented in this encounter Care Teams Garbage Depot Worker Relationship Specialty Start Date End Date Arias Mast DNP PCP - General Family Medicine 02/14/21 04/02/22 documented as of this encounter
--- OUTSIDE RECORDS SUMMARY | 2023-09-15 02:23 | XMS_ITS | Encounter Summary ---
Author Organization [facility] Address [facility] [place] [address] Care Team Providers Care Starch And Prosize Mixer Name Role Phone Arias Mast DNP Primary Care Provider [phone] Encounter Details Date Type Department Care Team (Late st Contact Info) Description 11/09/2021 Orders Only Hematology [place] [address] Cody Frazier MD [facility] DR HEMATOLOGY [place] [address] Malignant neoplasm of lower lobe, right bronchus [...] PM EDT Office Visit Hematology/Oncology at [address] [phone] Cody Frazier MD [facility] DR HEMATOLOGY [place] [address] documented as of this encounter Visit Diagnoses Diagnosis Malignant neoplasm of lower lobe, right bronchus or lung documented in this encounter Care Teams Starch And Prosize Mixer Relationship Specialty Start Date End Date Arias Mast DNP PCP - General Family Medicine 02/14/21 04/02/22 documented as of this encounter
--- OUTSIDE RECORDS SUMMARY | 2023-09-15 02:23 | XMS_ITS | Encounter Summary ---
Author Organization [facility] Address [facility] [place] [address] Care Team Providers Care Child Caregiver Private Home Name Role Phone Arias Mast DNP Primary Care Provider [phone] Reason for Visit * Reason Onset Date Comments Medication Refill 12/12/2021 Ms don Encounter Details Date Type Department Care Team (Late st Contact Info) Description 12/12/2021 Refill [place]ematology [place] [phone] Cody Frazier MD [facility] DR [place] [address] Secondary malignant neoplasm of bone; Chronic neck pain; Malignant neoplasm of lower lobe, right [...] Telephone Encounter - Bandar Dillard RN - 12/12/2021 12:25 PM EDT Alexis called in looking for a refill on his morphine CR (Ms Contin) 30 mg Tablet Sustained Release, he would like to have it sent to: [id number] - [place], [place] - [address] [place] [address] AT SEC OF [facility] & [address] [address] Phone: ??[phone] ??Fax: ??[phone] Best call back number [phone] documented in this encounter Plan of Treatment Upcoming Encounters Date Type Department Care Team (Late st Contact Info) Description 09/22/2023 2:30 PM EDT Office Visit Hematology/Oncology at [address] [phone] Cody Frazier MD [facility] HEMATOLOGY [place] [address] documented as of this encounter Visit Diagnoses Diagnosis 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
--- OUTSIDE RECORDS SUMMARY | 2023-09-15 02:23 | XMS_ITS | Encounter Summary ---
Author Organization [facility] Address [facility] [place] [address] Care Team Providers Care Customer Services Supervisor Name Role Phone Arias Mast DNP Primary Care Provider [phone] Encounter Details Date Type Department Care Team (Late st Contact Info) Description 12/24/2021 Orders Only Hematology/Oncology at [address] [phone] Bea Grimes APRN [address] [place] [address] [place] [address] Malignant neoplasm of lower lobe, [...] PM EDT Office Visit Hematology/Oncology at [address] [phone] 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
--- OUTSIDE RECORDS SUMMARY | 2023-09-15 02:23 | XMS_ITS | Encounter Summary ---
Author Organization [facility] Address [facility] [place] [address] Care Team Providers Care Valve Seater Operator Name Role Phone Arias Mast DNP Primary Care Provider [phone] Reason for Visit * Reason Onset Date Comments Other 09/04/2021 Transportation p dyllan Encounter Details Date Type Department Care Team (Late st Contact Info) Description 09/04/2021 Telephone Hematology/Oncology at [address] [phone] Lorraine Huerta, PARER OFFICE OF CARE MANAGEMENT Other (Transportation plan) Social History Tobacco Use Types Packs/Day Years [...] Telephone Encounter - Lorraine Huerta MSW - 09/04/2021 8:23 AM EDT .Transportation Plan Review Transportation service provider: REJI @ [phone] Person coordinating transportation: Lorraine Huerta, @ [phone] Transportation request submitted to service provider: yes for appointments on 09-10-21 Reviewed/matched transportation request with appointment schedule: yes Patient has contact information to transportation provider: yes Actions taken today: none SW Interventions: Care Coordination Transportation resources documented in this encounter Plan of Treatment Upcoming Encounters Date Type Department Care Team (Late st Contact Info) Description 09/22/2023 2:30 PM EDT Office Visit Hematology/Oncology at [address] [phone] Cody Frazier MD [facility] DR [place] [address] documented as of this encounter Visit Diagnoses Not on filedocumented in this encounter Care Teams Valve Seater Operator Relationship Specialty Start Date End Date Arias Mast DNP PCP - General Family Medicine 02/14/21 04/02/22 documented as of this encounter
--- OUTSIDE RECORDS SUMMARY | 2023-09-15 02:23 | XMS_ITS | Encounter Summary ---
Author Organization Count Includes [facility] Address [facility] [place] [address] Care Team Providers Care Hydrometeorology Teacher Name Role Phone Arias Mast DNP Primary Care Provider [phone] Encounter Details Date Type Department Care Team (Late st Contact Info) Description 09/24/2021 11:00 AM EDT Office Visit Hematology/Oncology at [address] [phone] Cody Frazier MD [facility] DR [place] [address] Teena Nieto APRN [facility] DR [place] [address] Malignant neoplasm of lower lobe, right bronchus [...] Sign Reading Time Taken Comments Blood Pressure 148/78 09/24/2021 11:33 AM EDT Pulse 89 09/24/2021 11:33 AM EDT Temperature 36.9 ??C (98.4 ??F) 09/24/2021 11:33 AM E DT Respiratory Rate 18 09/24/2021 11:33 AM EDT Oxygen Saturation 98% 09/24/2021 11:33 AM EDT Inhaled Oxygen Concentration - - Weight 63.7 kg (140 lb 6.4 oz) 09/24/2021 11:33 AM EDT Height 178 cm (5' 10.08) 09/24/2021 11:33 AM ED T Body Mass Index 20.1 09/24/2021 11:33 AM EDT documented in this encounter Progress Notes * Cody Frazier MD - 09/24/2021 11:00 AM EDT Images from the original note were not included. Hematology & Medical Oncology [address] [address] Alexis Pelayo is being seen for the evaluation of lung cancer. Assessment & Plan: Alexis Pelayo is a 50 y.o. male patient with a past medical history significant for COPD, a 22-itxl-bjuv smoking history, chronic migraine headaches diagnosed with [...] at that juncture. Given that it is TTF-controlled with symptoms is a 1 negative and there are some data to [...] toxicities assessed and acceptable for ongoing treatment. -While we had previously discussed changing the MS Contin 30 mg to 3 times daily every day on the days he is working he wants to avoid that and take it twice daily using only the breakthrough if he needs it on days he is not working he is doing 30 mg 3 times daily. - C4D1 today D8 next week -We will plan to restage with a CT scan after his birthday which is on [birth year] and then have him return to clinic on given holiday where we will discuss likely maintenance therapy - SW already engaged Cody Frazier MD, MS 09/24/2021 Medical Oncology & Hematology [facility] CC: HPI/Interval History/Subjective: Last seen 08/20/2021 Back to work Has a little more pain and using 2 of the IRs during his time in work Has been taking MSSR 30mg BID on days he works and then manages it. On days he is not working takesthe 30mg MSSR TID. Avoiding the stuff because he's on a ladder. 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 I can't sit around any more Heat wave has been really tough for him. Lives on the 3rd floor. Needs his inhaler more. Tired-up every 2 hours to pee. Drinks a lot. Eating well Allergy sx flaring with lugo brennan Bowels are good Using high fiber to [...] Social History/Support Network: Home situation: From the [place] originally. Came up here because of family Has a sister Kristine Brantley who lives [place] who is his DPOA. 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 C1 Randhawa/Abraxane.Keytruda 7..[address] with response to treatment ONCBCN ONCOLOGY (AMB) 07/23/2021 07/30/2021 08/14/2021 08/20/2021 09/03/2021 09/13/2021 Day, Cycle Day 1, Cycle 1 Day 8, Cycle 1 Day 1, Cycle 2 Day 8, Cycle 2 Day 1, Cycle 3 Day 8, Cycle 3 CARBOplatin (Paraplatin) IV 568 mg - 568 mg - 568 mg - PACLitaxeL-protein bound (Abraxane) IV 100 mg/m2/dose = 177 mg 100 mg/m2/dose = 177 mg 100 mg/m2/dose = 177 mg 100 mg/m2/dose = 177 mg 100 mg/m2/dose = 177 mg 100 mg/m2/dose = 177 mg pembrolizumab 25 mg/mL (Keytruda) IV 200 mg - 200 mg - 200 mg - Patient Active Problem List Diagnosis Date Noted ??? Secondary malignant neoplasm of bone 07/17/2021 ??? Medication management 07/17/2021 ??? Malignant neoplasm of lower lobe, right bronchus or lung 07/05/2021 ??? Lung mass 06/26/2021 No Known Allergies Medications 09/24/21 1140 Medication Sig Taking? morphine CR (Ms Contin) 30 mg Tablet Sustained Release Take 1 tablet by mouth 3 times daily for 28 days. Yes prochlorperazine (Compazine) 10 mg Tablet Take [...] Exam: Wt Readings from Last 3 Encounters: 09/24/21 63.7 kg (140 lb 6.4 oz) 09/13/21 63.6 kg (140 lb 3.2 oz) 09/03/21 61.4 kg (135 lb 6.4 oz) Temp Readings from Last 3 Encounters: 09/24/21 36.9 ??C (98.4 ??F) (Temporal) 09/13/21 37 ??C (98.6 ??F) (Temporal) 09/03/21 36.7 ??C (98.1 ??F) (Temporal) BP Readings from Last 3 Encounters: 09/24/21 148/78 09/13/21 144/79 09/03/21 142/88 Pulse Readings from Last 3 Encounters: 09/24/21 89 09/13/21 95 09/03/21 90 Body surface area is 1.77 meters squared. Wt Readings from Last 3 Encounters: 09/24/21 63.7 kg (140 lb 6.4 oz) 09/13/21 63.6 kg (140 lb 3.2 oz) 09/03/21 61.4 kg (135 lb 6.4 oz) KPS Score ECOG Grade [...] back. Not infected Review of Laboratory Data: 8.15. 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
--- OUTSIDE RECORDS SUMMARY | 2023-09-15 02:23 | XMS_ITS | Encounter Summary ---
Author Organization [facility] Address [facility] [place] [address] Care Team Providers Care Process Coordinator Name Role Phone Arias Mast DNP Primary Care Provider [phone] Reason for Visit * Reason Comments Chemotherapy Cycle 6, Day 1; Pemb ro * Treatment/Therapy Plan Authorization (Routine) - Closed [...] (Paraplatin) AUC = 5 Cody Frazier MD [address] [place] [address] [place] [address] Cody Frazier MD [address] [place] [address] [place] [address] Referral ID Status Reason Start Date Expiration Date Visits Re quested Visits Authorized [id number] Closed 02/10/2022 2022 99 99 Encounter Details Date Type Department Care Team (Late st Contact Info) Description 11/12/2021 11:00 AM EDT Infusion Hematology Oncology at [address] [phone] Secondary malignant neoplasm of bone; [...] Progress Notes * Erik Mart RN - 11/12/2021 11:00 AM EDT INFUSION THERAPY ADMINISTRATION NOTES DIAGNOSIS: NSCLC CYCLE #: 6, Day 1 - Single agent Pembrolizumab REASON FOR VISIT: To receive single agent immunotherapy. SUBJECTIVE: Alexis offers no complaints. OBJECTIVE: Seen by provider. Ready to treat. LAB DATA: WBC - 6.93, Hg 11.3, Plt Ct - 444, ANC - 4.67, BUN/Cr - 8/0.9, TSH/Free T 4 - 0.52/1.05. IV ACCESS: PIV Pre administration: Chemotherapy orders independently verified for drug name, route, and dosage per patient's height, weight and BSA by ERIK MART, RN and Staff Pharmacist(s). REACTIONS (DESCRIPTION, TIME, INTERVENTION AND EFFECTIVENESS) none ASSESSMENT: Alexis was awake, alert and tolerated treatment well. PIV discontinued prior to dismissal. PLAN: Return to clinic in three weeks. documented in this encounter Plan of Treatment Upcoming Encounters Date Type Department Care Team (Late st Contact Info) Description 09/22/2023 2:30 PM EDT Office Visit Hematology/Oncology at [address] [phone] Cody Frazier MD [facility] DR HEMATOLOGY [place] [address] documented as of this encounter Visit Diagnoses [...] 200 mg, Intravenous, ONCE, 1 dose, On 11/12/21 at 1330, Administer over 30 Minutes, Flush line with NS after each dose., This agent is restricted to outpatient use. Is this drug being given as an outpatient? Yes New Bag 11/12/2021 12:51 PM EDT 200 mg 21 6 mL/hr documented in this encounter Care Teams Process Coordinator Relationship Specialty Start Date End Date Arias Mast DNP PCP - General Family Medicine 02/14/21 04/02/22 documented as of this encounter
--- OUTSIDE RECORDS SUMMARY | 2023-09-15 02:23 | XMS_ITS | Encounter Summary ---
Author Organization [facility] Address [facility] [place] [address] Care Team Providers Care Website Optimization Strategist Name Role Phone Arias Mast DNP Primary Care Provider [phone] Reason for Visit * Reason Onset Date Comments Medication Refill 11/27/2021 Encounter Details Date Type Department Care Team (Late st Contact Info) Description 11/27/2021 Refill Hematology/Oncology at [address] [phone] Cody Frazier MD [facility] DR HEMATOLOGY [place] [address] Secondary malignant neoplasm of bone; Malignant neoplasm [...] Telephone Encounter - Mago Mariee RN - 11/27/2021 2:00 PM EDT Images from the original note were not included. Ashanti Lira [facility] Hem Onc Nurse Alexis called in looking for his refill on his morphine IR (MSIR) 15 mg Tablet, please send to: [id number] - [place], [place] - [address] [place] [address] AT SEC OF [facility] & [address] [address] Phone: ??[phone] ??Fax: ??[phone] Best call back number [phone] Review of chart suggests that this is an appropriate refill request. Prescription pended and routedto Dr. Frazier for review and approval, if agreed. 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
--- OUTSIDE RECORDS SUMMARY | 2023-09-15 02:23 | XMS_ITS | Encounter Summary ---
Author Organization [facility] Address [facility] [place] [address] Care Team Providers Care Bicycle Inspector Name Role Phone Arias Mast DNP Primary Care Provider [phone] Reason for Visit * Reason Onset Date Comments Other 08/28/2021 Transportation p dyllan Encounter Details Date Type Department Care Team (Late st Contact Info) Description 08/28/2021 Telephone Hematology/Oncology at [address] [phone] Lorraine Huerta, MEDICAL BILLING SERVICE OFFICE OF CARE MANAGEMENT Other (Transportation plan) [...] Telephone Encounter - Lorraine Huerta MSW - 08/28/2021 8:21 AM EDT Transportation Plan Review Transportation service provider: REJI @ [phone] Person coordinating transportation: Lorraine Huerta, @ [phone] Transportation request submitted to service provider: rides requested for 09-03-21 and 09-10-21 appointments Reviewed/matched transportation request with appointment schedule: yes Patient has contact information to transportation provider: yes Actions taken today: Messaged RCT requesting rides for 09-10-21 appointments per appointment desk with clarification from Tish Mariee RN [facility] labs @ 7:30 [facility] @ 8:30 Home @ 10 SW Interventions: Care Coordination Transportation resources documented in this encounter Plan of Treatment Upcoming Encounters Date Type Department Care Team (Late st Contact Info) Description 09/22/2023 2:30 PM EDT Office Visit Hematology/Oncology at [address] [phone] Cody Frazier MD [facility] DR HEMATOLOGY [place] [address] documented as of this encounter Visit Diagnoses Not on filedocumented in this encounter Care Teams Bicycle Inspector Relationship Specialty Start Date End Date Arias Mast DNP PCP - General Family Medicine 02/14/21 04/02/22 documented as of this encounter
--- OUTSIDE RECORDS SUMMARY | 2023-09-15 02:23 | XMS_ITS | Encounter Summary ---
Author Organization [facility] Address [facility] [place] [address] Care Team Providers Care Manager Quality Improvement Name Role Phone Arias Mast DNP Primary Care Provider [phone] Reason for Visit * Reason Comments Chemotherapy Cycle 1, Day 1 - Sin gle agent Pembrolizumab * Treatment/Therapy Plan Authorization (Routine) - [...] (Paraplatin) AUC = 5 Cody Frazier MD [address] [place] [address] DR HEMATOLOGY [place] [address] Cody Frazier MD [address] [place] [address] DR HEMATOLOGY [place] [address] Referral ID Status Reason Start Date Expiration Date Visits Re quested Visits Authorized [id number] Closed 02/10/2022 2022 99 99 Encounter Details Date Type Department Care Team (Late st Contact Info) Description 10/22/2021 11:00 AM EDT Infusion Hematology Oncology at [address] [phone] Secondary malignant neoplasm of bone; Medication management; [...] Progress Notes * Aydee Yung RN - 10/22/2021 11:00 AM EDT INFUSION THERAPY ADMINISTRATION NOTES DIAGNOSIS: NSCLC CYCLE #: Cycle 1, Day 1 - Single agent Pembrolizumab REASON FOR VISIT: To receive single agent immunotherapy. SUBJECTIVE: Alexis offers no complaints. OBJECTIVE: Seen by provider. Ready to treat. LAB DATA: WBC - 7.55, H/H - 11.2/34.0, Plt Ct - 373, ANC - 5.88, Lytes wnl, BUN/Cr - 14/1.1, TSH/Free T 4 - 0.86/1.12. IV ACCESS: PIV Pre administration: Chemotherapy orders [...] PM EDT Office Visit Hematology/Oncology at [address] [phone] Cody Frazier MD [facility] DR HEMATOLOGY [place] [address] documented as of this encounter Visit Diagnoses [...] 200 mg, Intravenous, ONCE, 1 dose, On 10/22/21 at 1145, Administer over 30 Minutes, Flush line with NS after each dose., This agent is restricted to outpatient use. Is this drug being given as an outpatient? Yes New Bag 10/22/2021 11:00 AM EDT 200 mg 21 6 mL/hr documented in this encounter Care Teams Manager Quality Improvement Relationship Specialty Start Date End Date Arias Mast DNP PCP - General Family Medicine 02/14/21 04/02/22 documented as of this encounter
--- OUTSIDE RECORDS SUMMARY | 2023-09-15 02:23 | XMS_ITS | Encounter Summary ---
Author Organization [facility] Address [facility] [place] [address] Care Team Providers Care Geophysical Prospecting Surveyor Name Role Phone Arias Mast DNP Primary Care Provider [phone] Reason for Visit * Reason Onset Date Comments Other 08/08/2021 Transportation p lans Encounter Details Date Type Department Care Team (Late st Contact Info) Description 08/08/2021 Telephone Hematology/Oncology at [address] [phone] Lorraine Huerta, TEST LEAD APPLICATION TESTING OFFICE OF CARE MANAGEMENT Other (Transportation plans) Social History Tobacco Use Types Packs/Day Years [...] Telephone Encounter - Lorraine Huerta MSW - 08/08/2021 9:10 AM EDT Transportation Plan Review Transportation service provider: REJI @ [phone] Person coordinating transportation: Lorraine Huerta, @ [phone] Transportation request submitted to service provider: yes for 08-20-21 and 09-03-21 appointments Reviewed/matched transportation request with appointment schedule: yes per appt desk Patient has contact information to transportation provider: yes Actions taken today: messaged RCT with time change on 08/20/21 and ride request for 09/03/21 SW Interventions: Care Coordination Transportation resources documented in this encounter Plan of Treatment Upcoming Encounters Date Type Department Care Team (Late st Contact Info) Description 09/22/2023 2:30 PM EDT Office Visit Hematology/Oncology at [address] [phone] Cody Frazier MD [facility] DR [place] [address] documented as of this encounter Visit Diagnoses Not on filedocumented in this encounter Care Teams Geophysical Prospecting Surveyor Relationship Specialty Start Date End Date Arias Mast DNP PCP - General Family Medicine 02/14/21 04/02/22 documented as of this encounter
--- OUTSIDE RECORDS SUMMARY | 2023-09-15 02:23 | XMS_ITS | Encounter Summary ---
Author Organization [facility] Address [facility] [place] [address] Care Team Providers Care Accountant Property Name Role Phone Arias Mast DNP Primary Care Provider [phone] Reason for Visit * Reason Onset Date Comments Medication Refill 10/08/2021 Encounter Details Date Type Department Care Team (Late st Contact Info) Description 10/08/2021 Refill Hematology/Oncology at [address] [phone] Cody Frazier MD [facility] [place] [address] Social History Tobacco Use Types Packs/Day Years [...] PM EDT Office Visit Hematology/Oncology at [address] [phone] Cody Frazier MD [facility] [place] [address] documented as of this encounter Visit Diagnoses Not on filedocumented in this encounter Care Teams Accountant Property Relationship Specialty Start Date End Date Arias Mast DNP PCP - General Family Medicine 02/14/21 04/02/22 documented as of this encounter
--- OUTSIDE RECORDS SUMMARY | 2023-09-15 02:23 | XMS_ITS | Encounter Summary ---
Author Organization Formerly [facility] Address [facility] [place] [address] Care Team Providers Care Lip Reading Teacher Name Role Phone Arias Mast DNP Primary Care Provider [phone] Encounter Details Date Type Department Care Team (Late st Contact Info) Description 10/01/2021 Notes Only Hematology/Oncology at [address] [phone] Lorraine Huerta, WIRE BRUSH MAKER OFFICE OF CARE MANAGEMENT Social History Tobacco [...] Progress Notes * Lorraine Huerta MSW - 10/01/2021 10:33 AM EDT Follow up with pt during his infusion visit today. Pt indicted overall he is doing well. He is managing day to day at home. He is scheduling his own rides with [employer]. He is working some so he is able to manage his financial obligations. He feels as though he has enough support from others. Pt did not identify any new needs today. Offered support. Reminded pt of WIRE BRUSH MAKER availability and contact information. Will continue to follow for support and resources. Brief assessment Supportive Counseling documented in this encounter Plan of Treatment Upcoming Encounters Date Type Department Care Team (Late st Contact Info) Description 09/22/2023 2:30 PM EDT Office Visit Hematology/Oncology at [address] [phone] Cody Frazier MD [facility] DR HEMATOLOGY [place] [address] documented as of this encounter Visit Diagnoses Not on filedocumented in this encounter Care Teams Lip Reading Teacher Relationship Specialty Start Date End Date Arias Mast DNP PCP - General Family Medicine 02/14/21 04/02/22 documented as of this encounter
--- OUTSIDE RECORDS SUMMARY | 2023-09-15 02:23 | XMS_ITS | Encounter Summary ---
Author Organization Formerly [facility] Address [facility] [place] [address] Care Team Providers Care Processing Mgr Name Role Phone Arias Mast DNP Primary Care Provider [phone] Encounter Details Date Type Department Care Team (Late st Contact Info) Description 08/28/2021 10:10 PM EDT Ancillary Procedure [place] [address] [facility] DR HEMATOLOGY [place] [address] Social History Tobacco Use Types Packs/Day Years [...] PM EDT Office Visit Hematology/Oncology at [address] [phone] [facility] DR HEMATOLOGY [place] [address] documented as of this encounter Procedures Procedure Name Priority Date/Time Associated Diagnosis Comments FILM LIBRARY STORAGE ONLY CT CHEST Routine 08/28/2021 10:07 PM EDT documented in this encounter Results * Film Library- Storage Only CT Chest (08/28/2021 10:07 PM EDT) Narrative [facility] - 08/28/2021 10:07 PM EDT This exam is auto-finalizing. It's purpose is for storage only. Cody Frazier MD IMG FILM LIBRARY ORD ERABLES [place], [place] documented in this encounter Visit Diagnoses Not on filedocumented in this encounter Care Teams Processing Mgr Relationship Specialty Start Date End Date Arias Mast DNP PCP - General Family Medicine 02/14/21 04/02/22 documented as of this encounter
--- OUTSIDE RECORDS SUMMARY | 2023-09-15 02:23 | XMS_ITS | Encounter Summary ---
Author Organization [facility] Address [facility] [place] [address] Care Team Providers Care Residence Supervisor Name Role Phone Airas Mast DNP Primary Care Provider [phone] Reason for Visit * Reason Comments Chemotherapy C3D1 Pembro/abraxane /carboplatin * Treatment/Therapy Plan Authorization (Routine) - Closed [...] [id number] CARBOplatin (Paraplatin) AUC = 5 Cody rFazier MD [address] [place] [address] DR HEMATOLOGY [place] [address] Cody Frazier MD [address] [place] [address] DR HEMATOLOGY [place] [address] Referral ID Status Reason Start Date Expiration Date Visits Re quested Visits Authorized [id number] Closed 02/10/2022 2022 99 99 Encounter Details Date Type Department Care Team (Late st Contact Info) Description 09/03/2021 9:00 AM EDT Infusion Hematology Oncology at [address] [phone] Secondary malignant neoplasm of bone; [...] Progress Notes * Mohini Caal RN - 09/03/2021 9:00 AM EDT INFUSION THERAPY ADMINISTRATION NOTES DIAGNOSIS: Lung Cancer CYCLE #:3 Day 1 REASON FOR VISIT: Pembrolizumab,/Abraxane/carboplatin SUBJECTIVE Cornelius offers no complaints, he met with Dr. Frazier prior to infusion, ready for treatment. OBJECTIVE LAB DATA: WBC 4.43, HGB 10.5, HCT 32.8, PLT 216, ANC 2.55, BUN 16, Cr 1, TSH 2.26, FT4 1.9 IV ACCESS: PIV right arm. Pre administration: Chemotherapy orders independently verified for drug name, route, and dosage per patient's height, weight and BSA by Mohini Caal, RN & [facility] onsite. REACTIONS (DESCRIPTION, TIME, INTERVENTION AND EFFECTIVENESS) none ASSESSMENT Cornelius was awake, alert and tolerated treatment well. PLAN Return to clinic per routine. documented in this encounter Plan of Treatment Upcoming Encounters Date Type Department Care Team (Late st Contact Info) Description 09/22/2023 2:30 PM EDT Office Visit Hematology/Oncology at [address] [phone] Cody Frazier MD [facility] DR [place] [address] documented as of this encounter Visit Diagnoses [...] Date Dose Rate Site aprepitant (CINVANTI) injection Emul 130 mg 130 mg, Intravenous, Administer over 2 Minutes, ONCE, 1 dose, On Fri09/03/21 at 0930, Alternative administration of IV push over 2 minutes is a recommendation from the operator bearer systems. Administer prior to chemotherapy., Routine Given 09/03/2021 9:29 AM EDT 130 mg CARBOplatin (Paraplatin) 568 mg in dextrose 5% 306.8 mL infusion 568 mg (Target AUC = 5), Intravenous, ONCE, 1 dose, On Fri09/03/21 at 1030, Administer over 30 Minutes, Warning Vesicant/Irritant Medication New Bag 09/03/2021 11:18 AM EDT 568 mg 613.6 mL/hr dexAMETHasone (Decadron) tablet 10 mg 10 mg, Oral, ONCE, 1 dose, On Fri09/03/21 at 0930, Administer prior to chemotherapy, Routine Given 09/03/2021 9:24 AM EDT 10 mg PACLitaxeL-protein bound (Abraxane) injection 177 mg 177 mg (100 mg/m2/dose ? 1.77 m2 Treatment Plan BSA from Recorded weight), Intravenous, ONCE, 1 dose, On Fri09/03/21 at 1030, Administer over 30 Minutes New Bag 09/03/2021 10:27 AM EDT 177 mg 70.8 mL/hr palonosetron (Aloxi) (0.05 mg/mL) injection 0.25 mg 0.25 mg, Intravenous, ONCE, 1 dose, On Fri09/03/21 at 0930, Administer over 30 seconds., Routine Given 09/03/2021 9:31 AM EDT 0.25 mg pembrolizumab (Keytruda) 200 mg in sodium chloride 0.9% 108 mL infusion 200 mg, Intravenous, ONCE, 1 dose, On Fri09/03/21 at 1030, Administer over 30 Minutes, Flush line with NS after each dose., This agent is restricted to outpatient use. Is this drug being given as an outpatient? Yes New Bag 09/03/2021 9:42 AM EDT 200 mg 216 mL/hr documented in this encounter Care Teams Residence Supervisor Relationship Specialty Start Date End Date Arias Mast DNP PCP - General Family Medicine 02/14/21 04/02/22 documented as of this encounter
--- OUTSIDE RECORDS SUMMARY | 2023-09-15 02:23 | XMS_ITS | Encounter Summary ---
Author Organization [facility] Address [facility] [place] [address] Care Team Providers Care Greenskeeper Laborer Name Role Phone None Primary Care Provider Unavailabl e Encounter Details Date Type Department Care Team (Late st Contact Info) Description 12/03/2021 Notes Only Hematology/Oncology at [address] [phone] Lorraine Huerta, JD [facility] OFFICE OF CARE MANAGEMENT Social [...] Progress Notes * Lorraine Huerta MSW - 12/03/2021 12:50 PM EDT Follow up with Alexis during his infusion visit today. He reports he is doing fairly well overall. He is managing day to day at home. He is managing his financial obligations. He takes the [employer] bus tohis appointments and takes a taxi home which is convenient for him. Alexis did not identify any new needs today. Offered support. Reminded Alexis of [employer]ER[employer] AUTOB[employer] REPAIRER availability and contact information. Will continue to follow for support and resources. Brief assessment Supportive Counseling documented in this encounter Plan of Treatment Upcoming Encounters Date Type Department Care Team (Late st Contact Info) Description 09/22/2023 2:30 PM EDT Office Visit Hematology/Oncology at [address] [phone] Cody Frazier MD [facility] HEMATOLOGY [place] [address] documented as of this encounter Visit Diagnoses Not on filedocumented in this encounter Care Teams Greenskeeper Laborer Relationship Specialty Start Date End Date None None PCP - General 04/03/22 04/24/23 documented as of this encounter
--- OUTSIDE RECORDS SUMMARY | 2023-09-15 02:23 | XMS_ITS | Encounter Summary ---
Author Organization [facility] Address [facility] [place] [address] Care Team Providers Care Sales Administration Manager Name Role Phone Arias Mast DNP Primary Care Provider [phone] Encounter Details Date Type Department Care Team (Late st Contact Info) Description 10/11/2021 9:40 PM EDT Ancillary Procedure [place] [address] Cody Frazier MD [facility] DR HEMATOLOGY [place] [address] Social History Tobacco Use Types Packs/Day Years [...] PM EDT Office Visit Hematology/Oncology at [address] [phone] Cody Frazier MD [facility] DR HEMATOLOGY [place] [address] documented as of this encounter Procedures Procedure Name Priority Date/Time Associated Diagnosis Comments FILM LIBRARY STORAGE ONLY CT CHEST Routine 10/11/2021 9:35 PM EDT documented in this encounter Results * Film Library- Storage Only CT Chest (10/11/2021 9:35 PM EDT) Narrative RAD - 10/11/2021 9:35 PM EDT This exam is auto-finalizing. It's purpose is for storage only. Cody Frazier MD IMG FILM LIBRARY ORD ERABLES [place], [place] documented in this encounter Visit Diagnoses Not on filedocumented in this encounter Care Teams Sales Administration Manager Relationship Specialty Start Date End Date Arias Mast DNP PCP - General Family Medicine 02/14/21 04/02/22 documented as of this encounter
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
--- OUTSIDE RECORDS SUMMARY | 2023-09-15 02:23 | XMS_ITS | Encounter Summary ---
Author Organization [facility] Address [facility] [place] [address] Care Team Providers Care Roving Court Reporter Name Role Phone Arias Mast DNP Primary Care Provider [phone] Encounter Details Date Type Department Care Team (Late st Contact Info) Description 11/12/2021 Notes Only Hematology/Oncology at [address] [phone] Lorraine Huerta, DAMPER MAKER OFFICE OF CARE MANAGEMENT Social History [...] Progress Notes * Lorraine Huerta MSW - 11/12/2021 12:10 PM EDT Follow up with Alexis during his infusion visit today. He indicated he only has to come in every 3 weeks now. He shared his tumor has shrunk. He is managing day to day at home. He does what he feels up to. He is managing his financial obligations. 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 He did not identify any new needs today. Offeredsupport. Reminded pt of SW availability and contact information. Will continue to follow for support and resources. Brief assessment Supportive Counseling documented in this encounter Plan of Treatment Upcoming Encounters Date Type Department Care Team (Late st Contact Info) Description 09/22/2023 2:30 PM EDT Office Visit Hematology/Oncology at [address] [phone] Cody Frazier MD [facility] DR HEMATOLOGY [place] [address] documented as of this encounter Visit Diagnoses Not on filedocumented in this encounter Care Teams Roving Court Reporter Relationship Specialty Start Date End Date Arias Mast DNP PCP - General Family Medicine 02/14/21 04/02/22 documented as of this encounter
--- OUTSIDE RECORDS SUMMARY | 2023-09-15 02:23 | XMS_ITS | Encounter Summary ---
Author Organization [facility] Address [facility] [place] [address] Care Team Providers Care Analysis Mgr Name Role Phone Arias Mast DNP Primary Care Provider [phone] Reason for Visit * Reason Comments Chemotherapy Cycle 2 Day 1 Pembro lizumab/Abraxane/Carboplatin * Treatment/Therapy Plan Authorization (Routine) - Closed [...] (Paraplatin) AUC = 5 Cody Frazier MD [address] [place] [address] DR HEM[place] [address] Cody Frazier MD [address] [place] [address] DR HEMATOLOGY [place] [address] Referral ID Status Reason Start Date Expiration Date Visits Re quested Visits Authorized [id number] Closed 02/10/2022 2022 99 99 Encounter Details Date Type Department Care Team (Late st Contact Info) Description 08/14/2021 8:00 AM EDT Infusion Hematology Oncology at [address] [phone] Secondary malignant neoplasm of bone; Medication management; [...] Sign Reading Time Taken Comments Blood Pressure 125/80 08/14/2021 8:20 AM EDT Pulse 76 08/14/2021 8:20 AM EDT Temperature 36.6 ??C (97.8 ??F) 08/14/2021 8:20 AM ED T Respiratory Rate 18 08/14/2021 8:20 AM EDT Oxygen Saturation 100% 08/14/2021 8:20 AM EDT Inhaled Oxygen Concentration - - Weight 63 kg (139 lb) 08/14/2021 8:21 AM EDT Height 178 cm (5' 10.08) 08/14/2021 8:22 AM EDT Body Mass Index 19.9 08/14/2021 8:21 AM EDT documented in this encounter Progress Notes * Deanne Nelson RN - 08/14/2021 8:00 AM EDT INFUSION THERAPY ADMINISTRATION NOTES DIAGNOSIS: Lung Cancer CYCLE #:2 Day 1 REASON FOR VISIT: Pembrolizumab/Abraxane/Carboplatin SUBJECTIVE Cornelius offers no complaints. He is feeling well, eating a lot, weight is up, had a good weekend with his neighbor. He has completed his radiation and his skin is healing on his back. OBJECTIVE LAB DATA: WBC 5.82, HGB 10.9, HCT 36.2, PLT 376, ANC 3.38, BUN 13, Cr 0.9, TSH 1.51, FT4 1.02 IV ACCESS: PIV right hand. Pre administration: Chemotherapy orders independently verified for drug name, route, and dosage per patient's height, weight and BSA by Deanne Nelson, [facility] onsite. REACTIONS (DESCRIPTION, TIME, INTERVENTION AND EFFECTIVENESS) none ASSESSMENT Cornelius was awake, alert and tolerated treatment well. PLAN Return to clinic per routine. documented in this encounter Plan of Treatment Upcoming Encounters Date Type Department Care Team (Late st Contact Info) Description 09/22/2023 2:30 PM EDT Office Visit Hematology/Oncology at [address] [phone] Cody Frazier MD [facility] DR HEMATOLOGY [place] [address] documented as of this encounter [...] over 2 Minutes, ONCE, 1 dose, On Fri08/14/21 at 0845, Alternative administration of IV push over 2 minutes is a recommendation from the forensic technician. Administer prior to chemotherapy., Routine Given 08/14/2021 8:46 AM EDT 130 mg CARBOplatin (Paraplatin) 568 mg in dextrose 5% 306.8 mL infusion 568 mg (Target AUC = 5), Intravenous, ONCE, 1 dose, On Fri08/14/21 at 0945, Administer over 30 Minutes, Warning Vesicant/Irritant Medication New Bag 08/14/2021 10:48 AM EDT 568 mg 613.6 mL/hr dexAMETHasone (Decadron) tablet 10 mg 10 mg, Oral, ONCE, 1 dose, On Fri08/14/21 at 0845, Administer prior to chemotherapy, Routine Given 08/14/2021 8:41 AM EDT 10 mg PACLitaxeL-protein bound (Abraxane) injection 177 mg 177 mg (100 mg/m2/dose ? 1.77 m2 Treatment Plan BSA from Recorded weight), Intravenous, ONCE, 1 dose, On Fri08/14/21 at 0945, Administer over 30 Minutes New Bag 08/14/2021 9:54 AM EDT 177 mg 70.8 mL/hr palonosetron (Aloxi) (0.05 mg/mL) injection 0.25 mg 0.25 mg, Intravenous, ONCE, 1 dose, On Fri08/14/21 at 0845, Administer over 30 seconds., Routine Given 08/14/2021 8:46 AM EDT 0.25 mg pembrolizumab (Keytruda) 200 mg in sodium chloride 0.9% 108 mL infusion 200 mg, Intravenous, ONCE, 1 dose, On Fri08/14/21 at 0945, Administer over 30 Minutes, Flush line with NS after each dose., This agent is restricted to outpatient use. Is this drug being given as an outpatient? Yes New Bag 08/14/2021 9:02 AM EDT 200 mg 216 mL/hr documented in this encounter Care Teams Analysis Mgr Relationship Specialty Start Date End Date Arias Mast DNP PCP - General Family Medicine 02/14/21 04/02/22 documented as of this encounter
--- OUTSIDE RECORDS SUMMARY | 2023-09-15 02:23 | XMS_ITS | Encounter Summary ---
Author Organization [facility] Address [facility] [place] [address] Care Team Providers Care Web Pressman Name Role Phone Arias Mast DNP Primary Care Provider [phone] Reason for Visit * Reason Onset Date Comments Other 09/10/2021 Encounter Details Date Type Department Care Team (Late st Contact Info) Description 09/10/2021 Telephone Hematology/Oncology at [address] [phone] Trinity Thomson RN Other Social History Tobacco Use Types Packs/Day Years [...] encounter Miscellaneous Notes * Telephone Encounter - Trinity Thomson RN - 09/10/2021 9:13 AM EDT Pt calls and states he has a head cold, feels stuffy. No fever of Chills. He does not want to have chemo today. He has been vaccinated for covid three times. Reviewed with Teena Jasso NP. She would like him to get covid tested. If it is negative and he is feeling better he can get chemo stand alone later this week or next Friday. Pt agrees and will call us with the test results and let us know what he would like to do. documented in this encounter Plan of Treatment Upcoming Encounters Date Type Department Care Team (Late st Contact Info) Description 09/22/2023 2:30 PM EDT Office Visit Hematology/Oncology at [address] [phone] Cody Frazier MD [facility] [place] [address] documented as of this encounter Visit Diagnoses Not on filedocumented in this encounter Care Teams Web Pressman Relationship Specialty Start Date End Date Arias Mast DNP PCP - General Family Medicine 02/14/21 04/02/22 documented as of this encounter
--- OUTSIDE RECORDS SUMMARY | 2023-09-15 02:23 | XMS_ITS | Encounter Summary ---
Author Organization [facility] Address [facility] [place] [address] Care Team Providers Care Well Logging Captain Mud Analysis Name Role Phone Arias Mast DNP Primary Care Provider [phone] Encounter Details Date Type Department Care Team (Late st Contact Info) Description 01/09/2022 Ancillary Procedure Radiology Library [place] [phone] Bea Grimes, IGNACIA [address] [place] [address] DR [place] [address] Social History Tobacco Use Types [...] PM EDT Office Visit Hematology/Oncology at [address] [phone] Cody Frazier MD [facility] DR [place] [address] documented as of this encounter Procedures Procedure Name Priority Date/Time Associated Diagnosis Comments FILM LIBRARY STORAGE ONLY CT CHEST Routine 01/09/2022 12:00 AM EST documented in this encounter Results * Film Library- Storage Only CT Chest (01/09/2022 12:00 AM EST) Narrative [facility] - 01/11/2022 8:36 AM EST This exam is auto-finalizing. It's purpose is for storage only. Bea Grimes APRN IMMarisol FILM LIBRARY ORDERABLES [place], [place] documented in this encounter Visit Diagnoses Not on filedocumented in this encounter Care Teams Well Logging Captain Mud Analysis Relationship Specialty Start Date End Date Arias Mast DNP PCP - General Family Medicine 02/14/21 04/02/22 documented as of this encounter
--- OUTSIDE RECORDS SUMMARY | 2023-09-15 02:23 | XMS_ITS | Encounter Summary ---
Author Organization [facility] Address [facility] [place] [address] Care Team Providers Care Grain Scooper Name Role Phone Arias Mast DNP Primary Care Provider [phone] Encounter Details Date Type Department Care Team (Late st Contact Info) Description 12/03/2021 10:30 AM EDT Office Visit Hematology/Oncology at [address] [phone] Cody Frazier MD [facility] DR HEMATOLOGY [place] [address] Teena Nieto APRN [facility] DR HEMATOLOGY [place] [address] Malignant neoplasm of lower lobe, right bronchus [...] Sign Reading Time Taken Comments Blood Pressure 130/77 12/03/2021 10:34 AM EDT Pulse 92 12/03/2021 10:34 AM EDT Temperature 37.1 ??C (98.7 ??F) 12/03/2021 10:34 AM E DT Respiratory Rate 18 12/03/2021 10:34 AM EDT Oxygen Saturation 95% 12/03/2021 10:34 AM EDT Inhaled Oxygen Concentration - - Weight 62.2 kg (137 lb 3.2 oz) 12/03/2021 10:34 AM EDT Height 178 cm (5' 10.08) 12/03/2021 10:34 AM ED T Body Mass Index 19.64 12/03/2021 10:34 AM EDT documented in this encounter Progress Notes * Cody Frazier MD - 12/03/2021 10:30 AM EDT Images from the original note were not included. Hematology & Medical Oncology [address] [address] Alexis Pelayo is being seen for the evaluation of lung cancer. Assessment & Plan: Alexis Pelayo is a 51 y.o. male patient with a past medical history significant for COPD, a 02-iqwn-frum smoking history, chronic migraine headaches diagnosed with [...] supplement (? Sleep paralysis) so stopped and altagracia improved. - Hold on further oral supplementation Cody Frazier MD, MS 12/03/2021 Medical Oncology & Hematology [facility] CC: HPI/Interval History/Subjective: Last seen 11/12/2021 Magnesium caused sleep paralysis and rash. Face was itchy. Stoppped taking and it went away Joints in his hands and feet are bad Overall doing really well Having some muscle [...] Noted more migraines since he ran outof Danny . Appetite excellent. Bowels moving ok - [...] a sister Kristine Brantley who lives [place] who is his DPOA. 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 Please correlate clinically/physical exam. 5.6.22 MRI brain - [facility] Pathology: Tissue: ??Right [...] C2 08.28.21 CT with response to treatment ONCN ONCOLOGY (AMB) 08/20/2021 09/03/2021 09/13/2021 09/24/2021 10/01/2021 10/22/2021 11/12/2021 Day, Cycle Day 8, Cycle 2 Day 1, Cycle 3 Day 8, Cycle 3 Day 1, Cycle 4 Day 8, Cycle 4 Day 1, Cycle 5 Day 1, Cycle 6 CARBOplatin (Paraplatin) IV - 568 mg - 568 mg - - - PACLitaxeL-protein bound (Abraxane) IV 100 mg/m2/dose = 177 mg 100 mg/m2/dose = 177 mg 100 mg/m2/dose = 177 mg 100 mg/m2/dose = 177 mg 100 mg/m2/dose = 177 mg - - pembrolizumab 25 mg/mL (Keytruda) IV - 200 mg - 200 mg - 200 mg 200 mg Patient Active Problem List Diagnosis Date Noted ??? Secondary malignant neoplasm of bone 07/17/2021 ??? Medication management 07/17/2021 ??? Malignant neoplasm of lower lobe, right bronchus or lung 07/05/2021 ??? Lung mass 06/26/2021 Allergies Allergen Reactions ??? Amitriptyline Patient reports agitation and insomnia Medications 12/03/21 1044 Medication Sig Taking? morphine IR (MSIR) 15 mg Tablet Take 1 tablet by mouth 3 times daily as needed for Pain. Yes morphine CR (Ms Contin) 30 mg Tablet Sustained Release Take 1 tablet by mouth 3 times daily for 28 days. Yes pregabalin (Lyrica) 50 mg Capsule Take [...] 18 mcg into the lungs daily. Yes magnesium oxide (Mag-Ox) 400 mg (241.3 mg magnesium) Tablet Take 1 tablet by mouth daily. Patient not taking: Reported on 12/03/2021 prochlorperazine (Compazine) 10 mg Tablet Take 1 [...] Exam: Wt Readings from Last 3 Encounters: 12/03/21 62.2 kg (137 lb 3.2 oz) 11/12/21 63.5 kg (140 lb) 10/22/21 62.5 kg (137 lb 12.8 oz) Temp Readings from Last 3 Encounters: 12/03/21 37.1 ??C (98.7 ??F) (Temporal) 11/12/21 36.7 ??C (98 ??F) (Temporal) 10/22/21 36.9 ??C (98.4 ??F) (Temporal) BP Readings from Last 3 Encounters: 12/03/21 130/77 11/12/21 149/83 10/22/21 130/80 Pulse Readings from Last 3 Encounters: 12/03/21 92 11/12/21 88 10/22/21 86 Body surface area is 1.75 meters squared. Wt Readings from Last 3 Encounters: 12/03/21 62.2 kg (137 lb 3.2 oz) 11/12/21 63.5 kg (140 lb) 10/22/21 62.5 kg (137 lb 12.8 oz) KPS Score ECOG Grade [...] No focal deficits. Review of Laboratory Data: 12.03.21 White blood cell count 8.71 hemoglobin 11.8 [...] some response to treatment noted 08.28.21 CT (I reviewed the imaging personally which shows a response to treatment.) Review of Pathology Data: No new data documented in this encounter Plan of Treatment Upcoming Encounters Date Type Department Care Team (Late st Contact Info) Description 09/22/2023 2:30 PM EDT Office Visit Hematology/Oncology at [address] [phone] Cody Frazier MD [facility] DR HEMATOLOGY [place] [address] documented as of this encounter Visit Diagnoses Diagnosis Malignant neoplasm of lower lobe, right bronchus or lung 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
--- OUTSIDE RECORDS SUMMARY | 2023-09-15 02:23 | XMS_ITS | Encounter Summary ---
Author Organization [facility] Address [facility] [place] [address] Care Team Providers Care Service Member Name Role Phone Arias Mast DNP Primary Care Provider [phone] Reason for Referral * Diagnostic Test (Routine) - Closed Specialty Diagnoses / Procedures Referred By Contac t Referred To Contact Radiology Diagnoses Malignant neoplasm of lower lobe, right bronchus or lung Secondary malignant neoplasm of bone Neoplasm related pain Procedures NM [place] PET CT Skull Base to Mid-thigh Cody Frazier MD [facility] DR [place] [address] [place] [address] Referral ID Status Reason Start Date Expiration Date V isits Requested Visits Authorized [id number] Closed Specialty Service Requested 01/14/2022 07/16/2023 1 1 Encounter Details Date Type Department Care Team (Late st Contact Info) Description 01/14/2022 1:30 PM EST Office Visit Hematology/Oncology at [address] [phone] Cody Frazier MD [facility] DR [place] [address] Bea Grimes APRN [address] [place] [address] DR HEMATOLOGY AND ONCOLOGY [place], [place] [id number] Malignant neoplasm of lower lobe, right bronchus [...] Sign Reading Time Taken Comments Blood Pressure 131/84 01/14/2022 1:28 PM EST Pulse 103 01/14/2022 1:28 PM EST Temperature 36.9 ??C (98.4 ??F) 01/14/2022 1:28 PM ES T Respiratory Rate 18 01/14/2022 1:28 PM EST Oxygen Saturation 96% 01/14/2022 1:28 PM EST Inhaled Oxygen Concentration - - Weight 61.7 kg (136 lb) 01/14/2022 1:28 PM EST Height 178 cm (5' 10.08) 01/14/2022 1:28 PM EST Body Mass Index 19.47 01/14/2022 1:28 PM EST documented in this encounter Progress Notes * Cody Frazier MD - 01/14/2022 1:30 PM EST Images from the original note were not included. Hematology & Medical Oncology [address] [address] Alexis Pelayo is being seen for the evaluation of lung cancer. Assessment & Plan: Alexis Pelayo is a 51 y.o. male patient with a past medical history significant for COPD, a 32-rfva-tfzh smoking history, chronic migraine headaches diagnosed with [...] treatment 07.23.21. Plan: # ? Infected bullae. Communicated with pulmonary. While he does not seem ill. Concern that this could be an infection. Progression would be unlikely -Hold treatment - Referral to interventional pulmonary at [facility] - Restage with PET SCAN - RTC on 02/18/22 to potentially resume therapy depending out out come of above Pain - using MS Contin 30 mg TID (uses only BID on days he is working) Using MS 15 IR 1-2 times daily for breakthrough pain. Long acting refilled today #Hypomag- Had a strange reaction to the Mag supplement (? Sleep paralysis) so stopped and altagracia improved. - Hold on further oral supplementation Cody Frazier MD, MS 01/13/2022 Medical Oncology & Hematology [facility] CC: HPI/Interval History/Subjective: Last seen 12/03/2021 Pain is worse- upper right part of his lung and over to the left. Using 30mg TID and this is not causing it. Joints are worse Magnesium caused sleep paralysis and rash. Face [...] Social History/Support Network: Home situation: [place]. Came up here because of family Has a sister Kristine Brantley who lives [place] who is his DPOA. 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 C1 [place]/Abraxane.Keytruda 7.07.[address] with response to treatment ONCBCN ONCOLOGY [...] 3 times daily as needed for Pain. magnesium oxide (Mag-Ox) 400 mg (241.3 mg magnesium) Tablet Take 1 tablet by mouth daily. Patient not taking: Reported on 12/03/2021 pregabalin (Lyrica) 50 mg Capsule Take 1 capsule by mouth 2 times daily. prochlorperazine (Compazine) 10 mg Tablet Take 1 tablet by mouth every 6 hours as needed for Nausea. Patient not taking: No sig reported acetaminophen (Tylenol) 500 mg Tablet Take 1,000 mg by mouth every 6 hours as needed for Pain. naproxen sodium (ALEVE) 220 mg Capsule Take 1 capsule by mouth every 12 hours. Take with food. ProChamber Spacer ProAir HFA 90 mcg/actuation HFA Aerosol Inhaler Inhale 2 puffs into the lungs every 4 hours as needed. EVERY 4 TO 6 HOURS NEEDED omeprazole (PriLOSEC) 40 mg Capsule, Delayed Release(E.C.) [...] Exam: Wt Readings from Last 3 Encounters: 12/26/21 62.4 kg (137 lb 9.6 oz) 12/03/21 62.2 kg (137 lb 3.2 oz) 11/12/21 63.5 kg (140 lb) Temp Readings from Last 3 Encounters: 12/26/21 37.4 ??C (99.3 ??F) (Temporal) 12/03/21 37.1 ??C (98.7 ??F) (Temporal) 11/12/21 36.7 ??C (98 ??F) (Temporal) BP Readings from Last 3 Encounters: 12/26/21 133/83 12/03/21 130/77 11/12/21 149/83 Pulse Readings from Last 3 Encounters: 12/26/21 (!) 101 12/03/21 92 11/12/21 88 There is no height or weight on file to calculate BSA. Wt Readings from Last 3 Encounters: 12/26/21 62.4 kg (137 lb 9.6 oz) 12/03/21 62.2 kg (137 lb 3.2 oz) 11/12/21 63.5 kg (140 lb) KPS Score ECOG Grade Definition 90-100 [...] No focal deficits. Review of Laboratory Data: 12.5.22 Sodium 137 potassium 3.9 chloride 100 [...] 1.8 total bilirubin 0.1 AST 11 ALK [place] 84 ALT 18 albumin 3.6 up from [...] PM EDT Office Visit Hematology/Oncology at [address] [phone] Cody Frazier MD [facility] DR [place] [address] documented as of this encounter Results * NM [place] PET CT Skull Base to Mid-thigh (01/18/2022 [...] who have questions please contact the health resident care supervisor that requested your imaging first. ? Narrative 01/21/2022 4:34 PM EST EXAMINATION: [facility] PET CT SKULL BASE TO MID-THIGH CLINICAL HISTORY: Non-small cell lung cancer, assess treatment response 51 yo with locally advanced NSCLC s/p radiation and then chemoimmunotherapy. Restaging exam TECHNIQUE: Following IV injection of 53-oxdftr-9-deoxyglucose (FDG) a standard uptake of approximately 60 [...] Note Zev Mcdowell MD - 01/21/2022 EXAMINATION: [facility] PET CT SKULL BASE TO MID-THIGH CLINICAL HISTORY: Non-small cell lung cancer, assess treatment response 51 yo with locally advanced NSCLC s/p radiation and thenchemoimmunotherapy. Restaging exam TECHNIQUE: Following IV injection of 85-ctqeug-4-deoxyglucose (FDG) astandard uptake of approximately 60 minutes, [...] patients who have questions please contactthe health resident care supervisor that requested your imaging first. Cody Frazier [...] (chronic) documented in this encounter Care Teams Service Member Relationship Specialty Start Date End Date Arias Mast DNP PCP - General Family Medicine 02/14/21 04/02/22 documented as of this encounter
--- OUTSIDE RECORDS SUMMARY | 2023-09-15 02:23 | XMS_ITS | Encounter Summary ---
Author Organization [facility] Address [facility] [place] [address] Care Team Providers Care Tassel Snipper Name Role Phone Arias Mast DNP Primary Care Provider [phone] Encounter Details Date Type Department Care Team (Late st Contact Info) Description 10/22/2021 10:30 AM EDT Office Visit Hematology/Oncology at [address] [phone] Milton Frazier MD [facility] DR HEMATOLOGY [place] [address] Teena Nieto APRN [facility] DR HEMATOLOGY [place] [address] Malignant neoplasm of lower lobe, right bronchus or lung; Medication management; Chronic thoracic back pain, unspecified back pain laterality; Chronic neck pain Social History Tobacco Use Types Packs/Day [...] Sign Reading Time Taken Comments Blood Pressure 130/80 10/22/2021 9:47 AM EDT Pulse 86 10/22/2021 9:47 AM EDT Temperature 36.9 ??C (98.4 ??F) 10/22/2021 9:47 AM ED T Respiratory Rate 16 10/22/2021 9:47 AM EDT Oxygen Saturation 97% 10/22/2021 9:47 AM EDT Inhaled Oxygen Concentration - - Weight 62.5 kg (137 lb 12.8 oz) 10/22/2021 9:47 AM EDT Height 178 cm (5' 10.08) 10/22/2021 9:47 AM EDT Body Mass Index 19.73 10/22/2021 9:47 AM EDT documented in this encounter Progress Notes * ForTeena coon APRN - 10/22/2021 10:30 AM EDT Images from the original note were not included. Hematology & Medical Oncology [address] [phone] Alexis Pelayo is being seen for the evaluation of lung cancer. Assessment & Plan: Alexis Pelayo is a 51 y.o. male patient with a past medical history significant for COPD, a 16-ubbp-bajo smoking history, chronic migraine headaches diagnosed with [...] Continues to tolerate treatment well. Continuing today (10/22) with immunotherapy only - cycle 5 Labs and toxicities assessed and acceptable for ongoing treatment. Restaging with a good response to treatment Pain - using MS Contin 30 mg TID (uses only BID on days he is working) Using MS 15 IR 1-2 times daily for breakthrough pain. Will refill Lyrica as this seems to help with his neck pain and migraines. Encouraged to exercise caution when working while using pain meds. He understood. Teena Nieto APRN 10/22/2021 Medical Oncology & Hematology [facility] CC: HPI/Interval History/Subjective: Last seen 10/01/21 Overall doing really well Has noted increase in migraines - hasn't had Lyrica in two weeks (has not been able to get a hold of his PCP) - asking for refill. Is still smoking about 5 cigarettes a day. 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 Has a little more pain recently, primarily neck and shoulder. Noted more migraines since he ran outof [place] [employer] . Appetite excellent. Bowels moving ok - [...] Social History/Support Network: Home situation: From the [place] originally. Came up here because of family Has a sister Kristine Brantley who lives [place] who is his DPOA. 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 male patient with a past medical history significant forCOPD, a 27-tnae-pngk smoking history, chronic migraine headaches who was in his usual state of health until last September when he first noted pain in the right mid to lower back region. This ultimatelyprompted further evaluation as detailed below this more recent spring. Staging/PreTx Eval: 05.24.22 IMPRESSION 1. FDG avid right lower lobe [...] 5.08.01 MRI brain - [facility] Pathology: Tissue: ??Right [...] with response to treatment ONCBCN ONCOLOGY (AMB) 07/30/2021 08/14/2021 08/20/2021 09/03/2021 09/13/2021 09/24/2021 10/01/2021 Day, Cycle Day 8, Cycle 1 Day 1, Cycle 2 Day 8, Cycle 2 Day 1, Cycle 3 Day 8, Cycle 3 Day 1, Cycle 4 Day 8, Cycle 4 CARBOplatin (Paraplatin) IV - 568 mg - 568 mg - 568 mg - PACLitaxeL-protein bound (Abraxane) IV 100 mg/m2/dose = 177 mg 100 mg/m2/dose = 177 mg 100 mg/m2/dose = 177 mg 100 mg/m2/dose = 177 mg 100 mg/m2/dose = 177 mg 100 mg/m2/dose = 177 mg 100 mg/m2/dose =177 mg pembrolizumab 25 mg/mL (Keytruda) IV - 200 mg - 200 mg - 200 mg - Patient Active Problem List Diagnosis Date Noted ??? Secondary malignant neoplasm of bone 07/17/2021 ??? Medication management 07/17/2021 ??? Malignant neoplasm of lower lobe, right bronchus or lung 07/05/2021 ??? Lung mass 06/26/2021 No Known Allergies Medications 10/01/21 1008 Medication Sig Taking? morphine CR (Ms Contin) 30 mg Tablet Sustained Release Take 1 tablet by mouth 3 times daily for 28 days. morphine IR (MSIR) 15 mg Tablet Take 1 tablet by mouth 3 times daily as needed for Pain. prochlorperazine (Compazine) 10 mg Tablet Take 1 [...] Release(E.C.) Take 40 mg by mouth daily. pregabalin (Lyrica) 50 mg Capsule Take by mouth nightly. Advair Diskus 250-50 mcg/dose Disk with Device [...] Exam: Wt Readings from Last 3 Encounters: 10/22/21 62.5 kg (137 lb 12.8 oz) 10/01/21 60.3 kg (133 lb) 09/24/21 63.7 kg (140 lb 6.4 oz) Temp Readings from Last 3 Encounters: 10/22/21 36.9 ??C (98.4 ??F) (Temporal) 10/01/21 37 ??C (98.6 ??F) (Temporal) 09/24/21 36.9 ??C (98.4 ??F) (Temporal) BP Readings from Last 3 Encounters: 10/22/21 130/80 10/01/21 110/69 09/24/21 148/78 Pulse Readings from Last 3 Encounters: 10/22/21 86 10/01/21 82 09/24/21 89 There is no height or weight on file to calculate BSA. Wt Readings from Last 3 Encounters: 10/22/21 62.5 kg (137 lb 12.8 oz) 10/01/21 60.3 kg (133 lb) 09/24/21 63.7 kg (140 lb 6.4 oz) KPS Score ECOG Grade [...] No focal deficits. Review of Laboratory Data: 10/22/21 WBC 7.55, Hgb 11.2, Plt Ct [...] 1.8 total bilirubin 0.1 AST 11 ALK [place] 84 ALT 18 albumin 3.6 up from [...] not Review of Imaging Data: 10/11/21 - CT scan reviewed by Dr. Frazier - stable disease with some response to treatment noted 7. CT (I reviewed the imaging personally which shows a response to treatment.) Review of Pathology Data: No new data documented in this encounter Miscellaneous Notes * Addendum Note - Milton Frazier MD - 10/22/2021 10:30 AM EDTAddended by: MILTON FRAZIER on: 10/22/2021 02:36 PM Modules accepted: Orders documented in this encounter Plan of Treatment Upcoming Encounters Date Type Department Care Team (Late st Contact Info) Description 09/22/2023 2:30 PM EDT Office Visit Hematology/Oncology at [address] [phone] Milton Frazier MD [facility] DR HEMATOLOGY [place] [address] documented as of this encounter Visit Diagnoses Diagnosis Malignant neoplasm of lower lobe, right bronchus or lung Medication management Encounter for long-term (current) use of other medications Chronic thoracic back pain, unspecified back pain laterality Chronic neck pain Cervicalgia documented in this encounter Care Teams Tassel Snipper Relationship Specialty Start Date End Date Arias Mast DNP PCP - General Family Medicine 02/14/21 04/02/22 documented as of this encounter
--- OUTSIDE RECORDS SUMMARY | 2023-09-15 02:23 | XMS_ITS | Encounter Summary ---
Author Organization [facility] Address [facility] [place] [address] Care Team Providers Care Shaping Machine Tender Name Role Phone Arias Mast DNP Primary Care Provider [phone] Reason for Visit * Reason Comments Chemotherapy Cycle 3, Day 8 * Treatment/Therapy Plan Authorization (Routine) - Closed [...] (Paraplatin) AUC = 5 Cody Frazier MD [address] [place] [address] DR [place] [address] Cody Frazier MD [address] [place] [address] DR HEMATOLOGY [place] [address] Referral ID Status Reason Start Date Expiration Date Visits Re quested Visits Authorized [id number] Closed 02/10/2022 2022 99 99 Encounter Details Date Type Department Care Team (Late st Contact Info) Description 09/13/2021 10:00 AM EDT Infusion Hematology Oncology at [address] [phone] Secondary malignant neoplasm of bone; Medication management; [...] Sign Reading Time Taken Comments Blood Pressure 144/79 09/13/2021 10:03 AM EDT Pulse 95 09/13/2021 10:03 AM EDT Temperature 37 ??C (98.6 ??F) 09/13/2021 10:03 AM EDT Respiratory Rate 18 09/13/2021 10:03 AM EDT Oxygen Saturation 95% 09/13/2021 10:03 AM EDT Inhaled Oxygen Concentration - - Weight 63.6 kg (140 lb 3.2 oz) 09/13/2021 10:03 AM EDT Height 178 cm (5' 10.08) 09/13/2021 10:03 AM ED T Body Mass Index 20.07 09/13/2021 10:03 AM EDT documented in this encounter Progress Notes * Bandar Dillard RN - 09/13/2021 10:00 AM EDT INFUSION THERAPY ADMINISTRATION NOTES DIAGNOSIS: Lung Cancer CYCLE #3: Day 8 REASON FOR VISIT: Abraxane SUBJECTIVE Cornelius offers no complaints. He reports he is feeling well, testing for Covid last Friday and was negative. OBJECTIVE LAB DATA: Done today at [facility]- WBC 4.25, Hgb 10.3, Hct 32.1, PLT 369k, ANC 2.73, Cr 1.0 IV ACCESS: PIV right arm Pre administration: Chemotherapy orders independently verified for drug name, route, and dosage per patient's height, weight and BSA by Bandar Dillard RN & [facility] onsite. REACTIONS (DESCRIPTION, TIME, INTERVENTION AND EFFECTIVENESS) none ASSESSMENT Cornelius was awake, alert and tolerated treatment well. PLAN Return to clinic per routine. documented in this encounter Plan of Treatment Upcoming Encounters Date Type Department Care Team (Late st Contact Info) Description 09/22/2023 2:30 PM EDT Office Visit Hematology/Oncology at [address] [phone] Cody Frazier MD [facility] DR [place] [address] documented as of this encounter Visit Diagnoses [...] MAR Action Action Date Dose Rate Site ondansetron (Zofran) tablet 8 mg 8 mg, Oral, ONCE, 1 dose, On Anabella 09/13/21 at 1100, Administer prior to chemotherapy, Routine Given 09/13/2021 10:55 AM EDT 8 mg PACLitaxeL-protein bound (Abraxane) injection 177 mg 177 mg (100 mg/m2/dose ? 1.77 m2 Treatment Plan BSA from Recorded weight), Intravenous, ONCE, 1 dose, On Anabella 09/13/21 at 1200, Administer over 30 Minutes New Bag 09/13/2021 11:34 AM EDT 177 mg 70. 8 mL/hr documented in this encounter Care Teams Shaping Machine Tender Relationship Specialty Start Date End Date Arias Mast DNP PCP - General Family Medicine 02/14/21 04/02/22 documented as of this encounter
--- OUTSIDE RECORDS SUMMARY | 2023-09-15 02:23 | XMS_ITS | Encounter Summary ---
Author Organization [facility] Address [facility] [place] [address] Care Team Providers Care Gi Technician Name Role Phone Arias Mast DNP Primary Care Provider [phone] Encounter Details Date Type Department Care Team (Latest Contact Info) Description 12/26/2021 Travel Social History Tobacco Use Types Packs/Day [...] 2:30 PM EDT Office Visit Hematology/Oncology at [address] [phone] Cody Frazier MD [facility] DR HEMATOLOGY [place] [address] documented as of this encounter Visit Diagnoses Not on filedocumented in this encounter Care Teams Gi Technician Relationship Specialty Start Date End Date Arias Mast DNP PCP - General Family Medicine 02/14/21 04/02/22 documented as of this encounter
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
--- OUTSIDE RECORDS SUMMARY | 2023-09-15 02:23 | XMS_ITS | Encounter Summary ---
Author Organization [facility] Address [facility] [place] [address] Care Team Providers Care Shredder Tender Name Role Phone Arias Mast DNP Primary Care Provider [phone] Reason for Visit * Reason Comments Chemotherapy C2D8 Abraxane * Treatment/Therapy Plan Authorization (Routine) - Closed [...] (Paraplatin) AUC = 5 Cody Frazier MD [address] [place] [address] DR HEMATOLOGY [place] [address] Cody Frazier MD [address] [place] [address] DR HEMATOLOGY [place] [address] Referral ID Status Reason Start Date Expiration Date Visits Re quested Visits Authorized [id number] Closed 02/10/2022 2022 99 99 Encounter Details Date Type Department Care Team (Late st Contact Info) Description 08/20/2021 10:30 AM EDT Infusion Hematology Oncology at [address] [phone] Secondary malignant neoplasm of bone; [...] Progress Notes * Mohini Caal RN - 08/20/2021 10:30 AM EDT INFUSION THERAPY ADMINISTRATION NOTES DIAGNOSIS: Lung Cancer CYCLE #:2 Day 8 REASON FOR VISIT: Abraxane SUBJECTIVE Cornelius offers no complaints. OBJECTIVE LAB DATA: WBC 4.40, HGB 10.8, HCT 35.1, PLT 417, ANC 3.15, BUN 17, Cr 0.7, TSH 1.09, FT4 1.15 IV ACCESS: PIV right arm. Pre administration: Chemotherapy orders independently verified for drug name, route, and dosage per patient's height, weight and BSA by Mohini Caal, RN & [facility] onsite. REACTIONS (DESCRIPTION, TIME, INTERVENTION AND EFFECTIVENESS) none ASSESSMENT Cornelius was awake, alert and tolerated treatment well. PLAN Return to clinic per routine. documented in this encounter Plan of Treatment Upcoming Encounters Date Type Department Care Team (Late st Contact Info) Description 09/22/2023 2:30 PM EDT Office Visit Hematology/Oncology at [address] [phone] Cody Frazier MD [facility] DR HEMATOLOGY [place] [address] documented as of this encounter Visit Diagnoses [...] 8 mg, Oral, ONCE, 1 dose, On Fri08/20/21 at 1045, Administer prior to chemotherapy, Routine Given 08/20/2021 10:40 AM EDT 8 mg PACLitaxeL-protein bound (Abraxane) injection 177 mg 177 mg (100 mg/m2/dose ? 1.77 m2 Treatment Plan BSA from Recorded weight), Intravenous, ONCE, 1 dose, On Fri08/20/21 at 1145, Administer over 30 Minutes New Bag 08/20/2021 11:06 AM EDT 177 mg 70. 8 mL/hr documented in this encounter Care Teams Shredder Tender Relationship Specialty Start Date End Date Arias Mast DNP PCP - General Family Medicine 02/14/21 04/02/22 documented as of this encounter
--- OUTSIDE RECORDS SUMMARY | 2023-09-15 02:23 | XMS_ITS | Encounter Summary ---
Author Organization [facility] Address [facility] [place] [address] Care Team Providers Care Wound Nurse Name Role Phone Arias Mast DNP Primary Care Provider [phone] Reason for Visit * Reason Comments Chemotherapy C4D8 Abraxane * Treatment/Therapy Plan Authorization (Routine) - [...] (Paraplatin) AUC = 5 Cody Frazier MD [address] [place] [address] DR [place] [address] Cody Frazier MD [address] [place] [address] DR [place] [address] Referral ID Status Reason Start Date Expiration Date Visits Re quested Visits Authorized [id number] Closed 02/10/2022 2022 99 99 Encounter Details Date Type Department Care Team (Late st Contact Info) Description 10/01/2021 8:30 AM EDT Infusion Hematology Oncology at [address] [phone] Secondary malignant neoplasm of bone; [...] Sign Reading Time Taken Comments Blood Pressure 110/69 10/01/2021 8:18 AM EDT Pulse 82 10/01/2021 8:18 AM EDT Temperature 37 ??C (98.6 ??F) 10/01/2021 8:18 AM EDT Respiratory Rate 16 10/01/2021 8:18 AM EDT Oxygen Saturation 100% 10/01/2021 8:18 AM EDT Inhaled Oxygen Concentration - - Weight 60.3 kg (133 lb) 10/01/2021 8:18 AM EDT Height 178 cm (5' 10.08) 10/01/2021 8:18 AM EDT Body Mass Index 19.04 10/01/2021 8:18 AM EDT documented in this encounter Progress Notes * Mohini Caal RN - 10/01/2021 8:30 AM EDT INFUSION THERAPY ADMINISTRATION NOTES DIAGNOSIS: Lung Cancer CYCLE #:4 Day 8 REASON FOR VISIT: Anne WADE Cornelius offers no complaints, reports his energy is good, he has been more physically active- working,appetite is good. OBJECTIVE LAB DATA: WBC 4.14, HGB 10.8, HCT 32.4, PLT 307, ANC 2.93, BUN 12, Cr 0.9 IV ACCESS: PIV right arm. Pre administration: Chemotherapy orders independently verified for drug name, route, and dosage per patient's height, weight and BSA by Mohini Caal, PATRICIA & [facility] onsite. REACTIONS (DESCRIPTION, TIME, INTERVENTION AND EFFECTIVENESS) none ASSESSMENT Cornelius was awake, alert and tolerated treatment well. PLAN Return to clinic per routine. documented in this encounter Plan of Treatment Upcoming Encounters Date Type Department Care Team (Late st Contact Info) Description 09/22/2023 2:30 PM EDT Office Visit Hematology/Oncology at [address] [phone] Cody Frazier MD [facility] DR HEMATOLOGY [place] [address] documented as of this encounter [...] 8 mg, Oral, ONCE, 1 dose, On 10/01/21 at 0845, Administer prior to chemotherapy, Routine Given 10/01/2021 8:42 AM EDT 8 mg PACLitaxeL-protein bound (Abraxane) injection 177 mg 177 mg (100 mg/m2/dose ? 1.77 m2 Treatment Plan BSA from Recorded weight), Intravenous, ONCE, 1 dose, On 10/01/21 at 0945, Administer over 30 Minutes New Bag 10/01/2021 9:36 AM EDT 177 mg 70.8 mL/hr documented in this encounter Care Teams Wound Nurse Relationship Specialty Start Date End Date Arias Mast DNP PCP - General Family Medicine 02/14/21 04/02/22 documented as of this encounter
--- OUTSIDE RECORDS SUMMARY | 2023-09-15 02:23 | XMS_ITS | Encounter Summary ---
Author Organization [facility] Address [facility] [place] [address] Care Team Providers Care Casket Coverer Name Role Phone Arias Mast DNP Primary Care Provider [phone] Reason for Visit * Reason Onset Date Comments Ankle Injury 12/24/2021 Encounter Details Date Type Department Care Team (Late st Contact Info) Description 12/24/2021 Telephone Hematology/Oncology at [address] [phone] Deanne Nelson RN Ankle Injury Social History Tobacco Use Types Packs/Day Years [...] Miscellaneous Notes * Telephone Encounter - Deanne Nelson, RN - 12/24/2021 1:08 PM EST Cornelius called this morning to cancel his appt. He rolled his ankle off his back steps yesterday and would like some time to recover. Reviewed with Jaycee Grimes APRN she advised stand alone inf later thisweek. Scan week of 01/07 and then labs, appt and inf 01/14. I will ask that he be scheduled for labsat 1330 and inf at 1430 wed 12/26/21. Cornelius agreed with this plan. He knows to call back with questions or concerns. documented in this encounter Plan of Treatment Upcoming Encounters Date Type Department Care Team (Late st Contact Info) Description 09/22/2023 2:30 PM EDT Office Visit Hematology/Oncology at [address] [phone] Cody Frazier MD [facility] DR [place] [address] documented as of this encounter Visit Diagnoses Not on filedocumented in this encounter Care Teams Casket Coverer Relationship Specialty Start Date End Date Arias Mast DNP PCP - General Family Medicine 02/14/21 04/02/22 documented as of this encounter
--- OUTSIDE RECORDS SUMMARY | 2023-09-15 02:23 | XMS_ITS | Encounter Summary ---
Author Organization [facility] Address [facility] [place] [address] Care Team Providers Care Pharmacist In Charge Owner Name Role Phone Arias Mast DNP Primary Care Provider [phone] Reason for Visit * Reason Onset Date Comments Other 09/11/2021 Transportation p dyllan Encounter Details Date Type Department Care Team (Late st Contact Info) Description 09/11/2021 Telephone Hematology/Oncology at [address] [phone] Lorraine Huerta, PRODUCE ASSOCIATE OFFICE OF CARE MANAGEMENT Other (Transportation plan) [...] Telephone Encounter - Lorraine Huerta MSW - 09/11/2021 8:14 AM EDT Transportation Plan Review Transportation service provider: REJI @ [phone] Person coordinating transportation: patient Transportation request submitted to service provider: pt has a plan to 09-13-21 appointments. He willbe scheduling his own rides with [facility] going forward. Reviewed/matched transportation request with appointment schedule: yes Patient has contact information to transportation provider: yes and he will be scheduling his own rides. Actions taken today: TC pt to confirm his plans for rides going forward. Pt reports he will schedule his own rides with [facility] going forward. SW Interventions: Care Coordination Transportation resources documented in this encounter Plan of Treatment Upcoming Encounters Date Type Department Care Team (Late st Contact Info) Description 09/22/2023 2:30 PM EDT Office Visit Hematology/Oncology at [address] [phone] Cody Frazier MD [facility] [place] [address] documented as of this encounter Visit Diagnoses Not on filedocumented in this encounter Care Teams Pharmacist In Charge Owner Relationship Specialty Start Date End Date Arias Mast DNP PCP - General Family Medicine 02/14/21 04/02/22 documented as of this encounter
--- OUTSIDE RECORDS SUMMARY | 2023-09-15 02:23 | XMS_ITS | Encounter Summary ---
Author Organization [facility] Address [facility] [place] [address] Care Team Providers Care Configuration Developer Name Role Phone Arias Mast DNP Primary Care Provider [phone] Encounter Details Date Type Department Care Team (Late st Contact Info) Description 09/24/2021 1:00 PM EDT Office Visit Hematology/Oncology at [address] [phone] Nadege Bolivar, RD [facility] DR [place] [address] Malignant neoplasm of lower lobe, [...] as of this encounter Progress Notes * Nadege Bolivar, RD - 09/24/2021 1:00 PM EDT [facility] Initial Assessment Patient Name: Alexis Pelayo Diagnosis: metastatic non-small cell cinoma of the lung. Referred by: [facility] Assessment: HPI Patient Active Problem List Diagnosis Code ??? Lung mass R91.8 ??? Malignant neoplasm of lower lobe, right bronchus or lung C34.31 ??? Secondary malignant neoplasm of bone C79.51 ??? Medication management Z79.899 Wt Readings from Last 10 Encounters: 09/24/21 63.7 kg (140 lb 6.4 oz) 09/13/21 63.6 kg (140 lb 3.2 oz) 09/03/21 61.4 kg (135 lb 6.4 oz) 08/20/21 63.1 kg (139 lb 3.2 oz) 08/14/21 63 kg (139 lb) 08/06/21 62.1 kg (137 lb) 07/30/21 61.8 kg (136 lb 3.2 oz) 07/23/21 62.8 kg (138 lb 6.4 oz) 07/19/21 62.1 kg (137 lb) 07/16/21 63 kg (139 lb) 06/27/21 150 lb UBW: 160-165# BMI 20.1 Weight stable for past 1.5 weeks. 5# gain from weight 3 weeks ago 135-140# for the past 2 months 10# loss from 06/27-07/05 due to pain Medications: Morphine IR as needed, MS Contin, compazine prn, tylenol prn, aleve prn, omeprazole lyrica Began palliative treatment on 07/23/21--carboplatin, paclitaxel, pembrolizumab, C3D1 today 09/24. Patient is s/p RT on 07/19/21. Labs on 09/24: TSH 0.39, Ca 9.2, BG 128H, BUN 10, Creat 0.9, Alb 3.6, TBili 0.2, AlkPhos 66, Na 136,K 4.8, AST 11L, ALT 17, Mg 1.8, H/H 10.6/32.8 Nutrition Screen 09/25/2021 09/24/2021 Reason for assessment Unintentional weight loss;High risk diagnosis - Total MST Score - 0 Functional Status 09/25/2021 Appetite Similar compared to usual intake Patient had been in significant pain, but this is now controlled with MS contin TID. Pain had been contributing to poor PO intake, but this has improved. He has not had any significant nausea; uses MJ if needed per chart. Patient has not had mouth sores. BMs are normal; uses fiber supplement. Diet History Patient reports he is eating very well lately. 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 He has been enjoying meat and cooked zucchini and squash lately. He eats 2-3 meals per day. 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 Nutrition Problem: Unintentional weight loss related to poor appetite secondary to pain as evidenced by 10# loss in June 2021 and 20# below usual body weight (12.5% body weight)--improved/stable Estimated needs based on current weight of 63.7 [id number] kcals (30-40 kcal/kg) COPD, metastatic NSCLC, weight loss 96-128 g protein (1.5-2 g/kg) 1 ml/kcal Recommendations/Interventions: * Encouraged continued good PO intake to maintain current weight or possibly regain some of weight lost * Patient reports he is knowledgeable on how to prepare high calorie foods. * Could consider ONS if weight trends further down. Will f/u as needed. documented in this encounter Plan of Treatment Upcoming Encounters Date Type Department Care Team (Late st Contact Info) Description 09/22/2023 2:30 PM EDT Office Visit Hematology/Oncology at [address] [phone] Cody Frazier MD [facility] [address] [place] [address] documented as of this encounter Visit Diagnoses Diagnosis Malignant neoplasm of lower lobe, right bronchus or lung documented in this encounter Care Teams Configuration Developer Relationship Specialty Start Date End Date Arias Mast DNP PCP - General Family Medicine 02/14/21 04/02/22 documented as of this encounter
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
--- OUTSIDE RECORDS SUMMARY | 2023-09-15 02:23 | XMS_ITS | Encounter Summary ---
Author Organization [facility] Address [facility] [place] [address] Care Team Providers Care Senior Net Software Developer Name Role Phone Arias Mast DNP Primary Care Provider [phone] Encounter Details Date Type Department Care Team (Late st Contact Info) Description 09/03/2021 Notes Only Hematology/Oncology at [address] [phone] Lorraine Huerta, SOCIAL WORKER AIDE OFFICE OF CARE MANAGEMENT Social History Tobacco [...] Progress Notes * Lorraine Huerta MSW - 09/03/2021 9:30 AM EDT Follow up with pt during his infusion visit today. Pt indicated his rides with [employer] are working well. If there is a time change he calls and adjusts rides directly with [facility]. Notified pt SOCIAL WORKER AIDE schedule rides with [facility] for his next appointments on 09-10-21. Pt indicated he is doing the best he can especially with this heat. He does live in a 3rd floor apartment with no air conditioning. He does what he feels up to. Inquired how pt is managing financially. He hopes to return to work when done with treatments. He indicated he is covering his living expenses. Pt did not identify any new needs today. Offered support. Brief assessment Supportive Counseling documented in this encounter Plan of Treatment Upcoming Encounters Date Type Department Care Team (Late st Contact Info) Description 09/22/2023 2:30 PM EDT Office Visit Hematology/Oncology at [address] [phone] Cody Frazier MD [facility] DR HEMATOLOGY [place] [address] documented as of this encounter Visit Diagnoses Not on filedocumented in this encounter Care Teams Senior Net Software Developer Relationship Specialty Start Date End Date Arias Mast DNP PCP - General Family Medicine 02/14/21 04/02/22 documented as of this encounter
--- OUTSIDE RECORDS SUMMARY | 2023-09-15 02:23 | XMS_ITS | Encounter Summary ---
Author Organization [facility] Address [facility] [place] [address] Care Team Providers Care Fiber Heel Piece Shaper Name Role Phone Arias Mast DNP Primary Care Provider [phone] Reason for Visit * Reason Comments Chemotherapy Cycle 4, Day 1 Pembr o+Abraxane+Carbo * Treatment/Therapy Plan Authorization (Routine) - Closed [...] (Paraplatin) AUC = 5 Cody Frazier MD [address] [place] [address] DR HEMAT[place]Y [place] [address] Cody Frazier MD [address] [place] [address] DR HEMATOLOGY [place] [address] Referral ID Status Reason Start Date Expiration Date Visits Re quested Visits Authorized [id number] Closed 02/10/2022 2022 99 99 Encounter Details Date Type Department Care Team (Late st Contact Info) Description 09/24/2021 11:30 AM EDT Infusion Hematology Oncology at [address] [phone] Secondary malignant neoplasm of bone; Medication management; [...] Progress Notes * Melina Randolph RN - 09/24/2021 11:30 AM EDT INFUSION THERAPY ADMINISTRATION NOTES DIAGNOSIS: Lung Cancer CYCLE #:4 Day 1 REASON FOR VISIT: Pembrolizumab,/Abraxane/carboplatin SUBJECTIVE Cornelius offers no complaints, he met with Dr. Frazier prior to infusion, ready for treatment. OBJECTIVE LAB DATA: WBC 4.26, HGB 10.6, HCT 32.8, PLT 206, ANC 2.82, BUN 10, Cr 0.9 IV ACCESS: PIV right arm. Pre administration: Chemotherapy orders independently verified for drug name, route, and dosage per patient's height, weight and BSA by Melina Grant, RN & [facility] onsite. REACTIONS (DESCRIPTION, TIME, INTERVENTION AND EFFECTIVENESS) none ASSESSMENT Cornelius was awake, alert and tolerated treatment well. PLAN Return to clinic per routine. documented in this encounter Plan of Treatment Upcoming Encounters Date Type Department Care Team (Late st Contact Info) Description 09/22/2023 2:30 PM EDT Office Visit Hematology/Oncology at [address] [phone] Cody Frazier MD [facility] DR HEMATOLOGY [place] [address] documented as of this encounter Visit Diagnoses [...] over 2 Minutes, ONCE, 1 dose, On Fri09/24/21 at 1230, Alternative administration of IV push over 2 minutes is a recommendation from the airport ramp supervisor. Administer prior to chemotherapy., Routine Given 09/24/2021 12:49 PM EDT 130 mg CARBOplatin (Paraplatin) 568 mg in dextrose 5% 306.8 mL infusion 568 mg (Target AUC = 5), Intravenous, ONCE, 1 dose, On Fri09/24/21 at 1330, Administer over 30 Minutes, Warning Vesicant/Irritant Medication New Bag 09/24/2021 2:37 PM EDT 568 mg 613.6 mL/hr dexAMETHasone (Decadron) tablet 10 mg 10 mg, Oral, ONCE, 1 dose, On Fri09/24/21 at 1230, Administer prior to chemotherapy, Routine Given 09/24/2021 12:45 PM EDT 10 mg PACLitaxeL-protein bound (Abraxane) injection 177 mg 177 mg (100 mg/m2/dose ? 1.77 m2 Treatment Plan BSA from Recorded weight), Intravenous, ONCE, 1 dose, On Fri09/24/21 at 1330, Administer over 30 Minutes New Bag 09/24/2021 1:50 PM EDT 177 mg 70.8 mL/hr palonosetron (Aloxi) (0.05 mg/mL) injection 0.25 mg 0.25 mg, Intravenous, ONCE, 1 dose, On Fri09/24/21 at 1230, Administer over 30 seconds., Routine Given 09/24/2021 12:47 PM EDT 0.25 mg pembrolizumab (Keytruda) 200 mg in sodium chloride 0.9% 108 mL infusion 200 mg, Intravenous, ONCE, 1 dose, On Fri09/24/21 at 1330, Administer over 30 Minutes, Flush line with NS after each dose., This agent is restricted to outpatient use. Is this drug being given as an outpatient? Yes New Bag 09/24/2021 1:05 PM EDT 200 mg 216 mL/hr documented in this encounter Care Teams Fiber Heel Piece Shaper Relationship Specialty Start Date End Date Arias Mast DNP PCP - General Family Medicine 02/14/21 04/02/22 documented as of this encounter
--- OUTSIDE RECORDS SUMMARY | 2023-09-15 02:23 | XMS_ITS | Encounter Summary ---
Author Organization [facility] Address [facility] [place] [address] Care Team Providers Care [employer] Range [employer] Name Role Phone Arias Mast DNP Primary Care Provider [phone] Reason for Visit * Reason Onset Date Comments Medication Refill 10/30/2021 MSIR Encounter Details Date Type Department Care Team (Late st Contact Info) Description 10/30/2021 Refill Hematology [place] [phone] Cody Frazier MD [facility] [address] [place] [address] Secondary malignant neoplasm of bone; Malignant neoplasm [...] Telephone Encounter - Bandar Dillard RN - 10/30/2021 9:14 AM EDT ----- Message from Anna Ernandez sent at 10/30/2021 9:08 AM EDT ----- Regarding: morphine IR (MSIR) 15 mg Tablet [[id number]] Alexis called to get a refill on his morphine IR (MSIR) 15 mg Tablet [[id number]]. He says he meant to call earlier because he only has a few days left. Can you please send this out to Gwen in [facility]? documented in this encounter Plan of Treatment Upcoming Encounters Date Type Department Care Team (Late st Contact Info) Description 09/22/2023 2:30 PM EDT Office Visit Hematology/Oncology at [address] [phone] 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
--- OUTSIDE RECORDS SUMMARY | 2023-09-15 02:23 | XMS_ITS | Encounter Summary ---
Author Organization [facility] Address [facility] [place] [address] Care Team Providers Care Medical Technologist Hematology Name Role Phone Arias Mast DNP Primary Care Provider [phone] Encounter Details Date Type Department Care Team (Late st Contact Info) Description 08/20/2021 Notes Only Hematology/Oncology at [address] [phone] Lorraine Huerta, TRAUMA COORDINATOR OFFICE OF CARE MANAGEMENT Social History Tobacco [...] Progress Notes * Lorraine Huerta MSW - 08/20/2021 11:25 AM EDT Follow up with pt during his infusion visit today. Pt indicated his rides with [employer] are working well. He is managing day to day at home. He indicated he is tired much of the time. His landlord, neighbors and some friends do visit. His sister from [place] has visited. Pt continues with no source of income. He has planned to apply for SSDI but has not made the call to start the process. Printed SSDI information for pt with the contact number for the [facility] office. Pt has accessed the [facility] [employer] for help with his rent. He indicated his landlord is very understanding re his situation. Reminded pt of TRAUMA COORDINATOR availability and contact information. Will continue to follow and assist as indicated. Brief assessment Supportive Counseling Care Coordination Financial resources Transportation resources documented in this encounter Plan of Treatment Upcoming Encounters Date Type Department Care Team (Late st Contact Info) Description 09/22/2023 2:30 PM EDT Office Visit Hematology/Oncology at [address] [phone] Cody Frazier MD [facility] DR HEMATOLOGY [place] [address] documented as of this encounter Visit Diagnoses Not on filedocumented in this encounter Care Teams Medical Technologist Hematology Relationship Specialty Start Date End Date Arias Mast DNP PCP - General Family Medicine 02/14/21 04/02/22 documented as of this encounter
--- OUTSIDE RECORDS SUMMARY | 2023-09-15 02:23 | XMS_ITS | Encounter Summary ---
Author Organization [facility] Address [facility] [place] [address] Care Team Providers Care Fire Investigation Lieutenant Name Role Phone None Primary Care Provider Unavailabl e Encounter Details Date Type Department Care Team (Late st Contact Info) Description 12/26/2021 Notes Only Hematology/Oncology at [address] [phone] Lorraine Huerta, [facility] OFFICE OF CARE MANAGEMENT Social History Tobacco [...] Progress Notes * Lorraine Huerta MSW - 12/26/2021 2:26 PM EST Follow up with Alexis during his infusion visit today. He indicated he is having difficulty with his joints so he does only what he feels up to. His landlord is a primary support. He has what he needs at home. He is using the [employer] bus for transportation which he likes. Alexis did not identify any new needs today. Offered support. Reminded Alexis of [facility] availability and contact information. Will follow as indicated. Brief assessment Supportive Counseling documented in this encounter Plan of Treatment Upcoming Encounters Date Type Department Care Team (Late st Contact Info) Description 09/22/2023 2:30 PM EDT Office Visit Hematology/Oncology at [address] [phone] Cody Frazier MD [facility] HEMATOLOGY [place] [address] documented as of this encounter Visit Diagnoses Not on filedocumented in this encounter Care Teams Fire Investigation Lieutenant Relationship Specialty Start Date End Date None None PCP - General 04/03/22 04/24/23 documented as of this encounter
--- OUTSIDE RECORDS SUMMARY | 2023-09-15 02:23 | XMS_ITS | Encounter Summary ---
Author Organization Replaced By [facility] Address [facility] [place] [address] Care Team Providers Care Toppiece Cutter Name Role Phone Arias Mast DNP Primary Care Provider [phone] Reason for Visit * Reason Comments Chemotherapy C8D1 pembrolizumab * Treatment/Therapy Plan Authorization (Routine) - Closed [...] (Paraplatin) AUC = 5 Cody Frazier MD [address] [place] [address] DR [place] [address] Cody Frazier MD [address] [place] [address] DR [place]EM[place] [address] Referral ID Status Reason Start Date Expiration Date Visits Re quested Visits Authorized [id number] Closed 02/10/2022 2022 99 99 Encounter Details Date Type Department Care Team (Late st Contact Info) Description 12/26/2021 1:30 PM EST Infusion Hematology Oncology at [address] [phone] Secondary malignant neoplasm of bone; [...] Sign Reading Time Taken Comments Blood Pressure 133/83 12/26/2021 2:08 PM EST Pulse 101 12/26/2021 2:08 PM EST Temperature 37.4 ??C (99.3 ??F) 12/26/2021 2:08 PM ES T Respiratory Rate 18 12/26/2021 2:08 PM EST Oxygen Saturation 94% 12/26/2021 2:08 PM EST Inhaled Oxygen Concentration - - Weight 62.4 kg (137 lb 9.6 oz) 12/26/2021 2:08 P M EST Height 178 cm (5' 10.08) 12/26/2021 2:08 PM EST Body Mass Index 19.7 12/26/2021 2:08 PM EST documented in this encounter Progress Notes * Mohini Caal RN - 12/26/2021 1:30 PM EST INFUSION THERAPY ADMINISTRATION NOTES DIAGNOSIS: NSCLC CYCLE #: 8, Day 1 - Single agent Pembrolizumab REASON FOR VISIT: To receive single agent immunotherapy. SUBJECTIVE: Alexis offers no complaints, ready for treatment today. OBJECTIVE: LAB DATA: completed at [facility] on 12/26 WNL for treatment IV ACCESS: PIV Pre administration: [...] PM EDT Office Visit Hematology/Oncology at [address] [phone] Cody Frazier MD [facility] DR [place] [address] documented as of this encounter Visit Diagnoses [...] 200 mg, Intravenous, ONCE, 1 dose, On Fri12/26/21 at 1530, Administer over 30 Minutes, Flush line with NS after each dose., This agent is restricted to outpatient use. Is this drug being given as an outpatient? Yes New Bag 12/26/2021 2:52 PM EST 200 mg 216 mL/hr documented in this encounter Care Teams Toppiece Cutter Relationship Specialty Start Date End Date Arias Mast DNP PCP - General Family Medicine 02/14/21 04/02/22 documented as of this encounter
--- OUTSIDE RECORDS SUMMARY | 2023-09-15 02:23 | XMS_ITS | Encounter Summary ---
Author Organization [facility] Address [facility] [place] [address] Care Team Providers Care Lime Trimmer Name Role Phone Arias Mast DNP Primary Care Provider [phone] Reason for Visit * Reason Onset Date Comments Medication Refill 12/31/2021 MS IR Encounter Details Date Type Department Care Team (Late st Contact Info) Description 12/31/2021 Refill Hematology/Oncology at [address] [phone] Cody Frazier MD [facility] HEMATOLOGY [place] [address] Secondary malignant neoplasm of bone; Malignant neoplasm [...] Telephone Encounter - Bandar Dillard RN - 12/31/2021 2:53 PM EST ----- Message from Anna Ernandez sent at 12/31/2021 2:42 PM EST ----- Regarding: morphine IR (MSIR) 15 mg Tablet [[id number]] Alexis forgot to give us a call earlier but is out of his morphine IR (MSIR) 15 mg Tablet [[id number]]. He said he still has the 30 mg so is not in an immediate browne to need it filled today but would appreciate one being sent out this week. He would like for it to be sent to [facility] in [facility]. 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
--- OUTSIDE RECORDS SUMMARY | 2023-09-15 02:24 | XMS_ITS | Encounter Summary ---
Author Organization [facility] Address [facility] [place] [address] Care Team Providers Care Radiology Technologist Name Role Phone Arias Mast DNP Primary Care Provider [phone] Reason for Visit * Reason Onset Date Comments Other 07/03/2021 transportation Encounter Details Date Type Department Care Team (Late st Contact Info) Description 07/03/2021 Telephone Radiation Oncology at [address] [phone] Lorraine Huerta, VENDING MACHINE REPAIRER OFFICE OF CARE MANAGEMENT Other (transportation) Social [...] like food, housing, medical care, and heating? Not very hard 02/14/2021 Hunger Vital Sign Answer Date Recorded Within the past 12 months, y ou worried that your food would run out before you got the money to buy more. Sometimes true Within the past 12 months, t he food you bought just didn't last and you didn't have money to get more. Sometimes true 06/2021 PRAPARE - Transportation Answer Date Re corded In the past 12 months, has l ack of transportation kept you from medical appointments or from getting medications? No 06/2021 In the past 12 months, has l ack of transportation kept you from meetings, work, or from getting things needed for daily living? No 02/14/2021 Housing Stability Vital Sign Answer Deni e Recorded In the last 12 months, was t here a time when you were not able to pay the mortgage or rent on time? No 02/14/2021 In the last 12 months, how many places have you lived? 1 02/14/2021 In the last 12 months, was t here a time when you did not have a steady place to sleep or slept in a care home (including now)? No 02/14/2021 Sex and Gender Information Value Date Recorded Sex Assigned at Not on file Gender Identity Not on file Sexual Orientation Not on file documented as of this encounter Miscellaneous Notes * Telephone Encounter - Lorraine Huerta MSW - 07/03/2021 8:55 AM EDT Call from [facility] requesting pt's provider complete a Public Transportation Medical Exemption Application. Pt lives close to a bus stop and he needs to apply for the exemption so he can have a private trash truck driver pick him up at his residence. TC pt to discuss. Pt reports he will use [facility] for medical transportation. He reports he is unable to walk any distanceand has difficulty climbing stairs. He experiences shortness of breath, coughing and pain as a result. He is agreeable to apply for the exemption. VENDING MACHINE REPAIRER to complete form and have his provider review and sign. Will then fax to [facility]. Reason for Referral: Brief assessment of social and emotional needs. TC with pt to introduce myselfand role of social economist to assess/address barriers to getting to and through treatments; address support needs and connect with community services and resources as needed. Family/Social Supports: Pt did not identify anyone as a support. He reports he has lived in this community for 3 years. Living Situation/Daily Activities/Transportation: He lives in a 3rd floor apartment. He has difficulty walking up the stairs. He is managing day to day as best he can. He will use [facility] for transportation to his medical appointments and RT treatments. 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 He has not been able to work since. He has not income. He has been using savings to pay his bills. He has little money left.He will not be able to pay his upcoming bills. He has Medicaid for insurance. Advance Directives: Did not discuss Utilization of Community Resources: [facility] Adjustment to Illness/Mental Health Concerns: Pt is hopeful to have additional information re his diagnosis. He is expecting 10 RT treatments to begin later this week. He does not know what he is going to do for money to pay his bills. It appears he has a limited support system. Identified Needs: Financial assistance for living expenses. Referrals: To meet with pt on his first day of treatment to look at his bills and make a plan to address these needs. Social Work Interventions: Brief assessment Supportive Counseling Financial resources Transportation resources Plan: Will meet pt on his first day of RT treatments. Informed pt of VENDING MACHINE REPAIRER availability and contact information. Will follow to assess/address psychosocial needs. SINGH Rush, DOLLYMAN, OSW-C Field Clinical Engineer [facility] documented in this encounter Plan of Treatment Upcoming Encounters Date Type Department Care Team (Late st Contact Info) Description 09/22/2023 2:30 PM EDT Office Visit Hematology/Oncology at [address] [phone] Cody Frazier MD [facility] DR HEMATOLOGY [place] [address] documented as of this encounter Visit Diagnoses Not on filedocumented in this encounter Care Teams Radiology Technologist Relationship Specialty Start Date End Date Arias Mast DNP PCP - General Family Medicine 02/14/21 04/02/22 documented as of this encounter
--- OUTSIDE RECORDS SUMMARY | 2023-09-15 02:24 | XMS_ITS | Encounter Summary ---
Author Organization [facility] Address [facility] [place] [address] Care Team Providers Care Spring Fitter Helper Name Role Phone Arias Mast DNP Primary Care Provider [phone] Reason for Visit * Reason Onset Date Comments Other 07/18/2021 transportation Encounter Details Date Type Department Care Team (Late st Contact Info) Description 07/18/2021 Telephone Hematology/Oncology at [address] [phone] Lorraine Huerta, DIETITIAN HELPER OFFICE OF CARE MANAGEMENT Other (transportation) Social [...] Telephone Encounter - Lorraine Huerta MSW - 07/18/2021 9:31 AM EDT Transportation Plan Review Transportation service provider: REJI @ [phone] Person coordinating transportation: Lorraine Huerta, @ [phone] Transportation request submitted to service provider: yes for appointments on 07-23-21 and 07-30-21 per appointment desk and review with Ashanti Lira Clinical Power Shovel Operator Reviewed/matched transportation request with appointment schedule: yes Patient has contact information to transportation provider: yes Actions taken today: messaged [facility] requesting rides for 07-23-21 and 07-30-21 SW Interventions: Care Coordination Transportation resources documented in this encounter Plan of Treatment Upcoming Encounters Date Type Department Care Team (Late Contact Info) Description 09/22/2023 2:30 PM EDT Office Visit Hematology/Oncology at [address] [phone] Cody Frazier MD [facility] DR [place]OLOG[place] [address] documented as of this encounter Visit Diagnoses Not on filedocumented in this encounter Care Teams Spring Fitter Helper Relationship Specialty Start Date End Date Arias Mast DNP PCP - General Family Medicine 02/14/21 04/02/22 documented as of this encounter
--- OUTSIDE RECORDS SUMMARY | 2023-09-15 02:24 | XMS_ITS | Encounter Summary ---
Author Organization [facility] Address [facility] [place] [address] Care Team Providers Care Hand Thermal Cutter Name Role Phone Arias Mast DNP Primary Care Provider [phone] Encounter Details Date Type Department Care Team (Late st Contact Info) Description 07/23/2021 Notes Only Hematology/Oncology at [address] [phone] Lorraine Huerta, TAPE DECK INSTALLER OFFICE OF CARE MANAGEMENT Social History Tobacco [...] Progress Notes * Lorraine Huerta MSW - 07/23/2021 2:43 PM EDT Follow up with pt during his infusion visit today. His rides with [facility] are working well. TAPE DECK INSTALLER will continue to monitor his schedule to request rides. Pt indicated his landlord did receive funds from the [facility] for help towards his rent. Pt indicated he did not bring in the information for an application to the [facility] even though he needs funds to cover his rent. He indicated his sister will be visiting and she could help him with this. Pt is interested in applying for SSDI and gave him contact information to the [facility] office to start the process with a phone interview. Reminded pt of TAPE DECK INSTALLER availability. Will continue to follow pt for support and resources. Brief assessment Supportive Counseling Financial resources Transportation resources documented in this encounter Plan of Treatment Upcoming Encounters Date Type Department Care Team (Late st Contact Info) Description 09/22/2023 2:30 PM EDT Office Visit Hematology/Oncology at [address] [phone] Cody Frazier MD [facility] HEMATOLOGY [place] [address] documented as of this encounter Visit Diagnoses Not on filedocumented in this encounter Care Teams Hand Thermal Cutter Relationship Specialty Start Date End Date Arias Mast DNP PCP - General Family Medicine 1/5/22 2/21/23 documented as of this encounter
--- OUTSIDE RECORDS SUMMARY | 2023-09-15 02:24 | XMS_ITS | Encounter Summary ---
Author Organization [facility] Address [facility] [place] [address] Care Team Providers Care Hand Trimmer Name Role Phone Arias Mast DNP Primary Care Provider [phone] Encounter Details Date Type Department Care Team (Late st Contact Info) Description 06/29/2021 Telephone Radiation Oncology at [address] [phone] Mikal Lamb RN Social History Tobacco Use Types Packs/Day [...] slept in a long-term (including now)? No 02/14/2021 Sex and Gender Information Value Date Recorded Sex Assigned at Not on file Gender Identity Not on file Sexual Orientation Not on file documented as of this encounter Miscellaneous Notes * Addendum Note - Mikal Lamb RN - 06/29/2021 5:14 PM EDTAddended by: MIKAL LAMB on: 06/29/2021 05:14 PM Modules accepted: Orders * Telephone Encounter - Mikal Lamb RN - 06/29/2021 4:26 PM EDT Radiation Oncology Nurse Telephone Note [place], [place] Friday06/29/21 3:30 Clinic received PA request from [facility] pharmacy for morphine IM release. Pharmacist states patient picked up the long acting morphine. Telephone call to pt to see how just the long acting morphine is doing with pain management. He states he picked it up 06/27 and took first dose at 6:00 PM . He slept well that night. morning he took the next dose, however he slept off and on most of the day until supper time. He didn't like how he felt with the whole tab. Therefore, evening, he took half a tab and another half tab this morning. He feels he tolerates the half tab much better with less grogginess, not feeling like a zombie. He grades his pain not bad at rest, a 5/10 when he coughs or does anything strenuous like stairs. I called pharmacist at [facility]. She checked and confirmed that his medication should not be cut in half. It is not scored appropriately to do this. Dr Sepulveda , who is covering for Dr Alva Informed of this. He also agreed of pharmacist instructions of not cutting med in half. He advised Tylenol/Advil for breakthrough pain until IM release MS is authorized. He signed the completed PA form in Dr Alva's absence today. I called patient back with this information. I explained the rationale of not cutting the long acting tablet in half and how serious this can be with potentially getting more dose than planned. He verbalized understanding and promised he would not cut the tablets again.. For Weekend coverage while our clinic is closed, the patient was instructed to call [facility] at [phone] and ask for the vice president investor relations radiation oncologist if he has any problems over the weekend. Patient verbalized understanding. Amendment: 4:50 PM Pharmacist at [facility] called stating that his insurance made an over- ride decision allowing him to have IM release morphine over the weekend. I called patient with this information and explained the difference between the 2 medications. Thisnew short acting med he may take every 4 hrs as needed for pain, while he takes the long acting twice a day. He was also instructed of avoiding constipation. He verbalized understanding documented in this encounter Plan of Treatment Upcoming Encounters Date Type Department Care Team (Late st Contact Info) Description 09/22/2023 2:30 PM EDT Office Visit Hematology/Oncology at [address] [phone] Cody Frazier MD [facility] DR [place] [address] documented as of this encounter Visit Diagnoses Not on filedocumented in this encounter Care Teams Hand Trimmer Relationship Specialty Start Date End Date Arias Mast DNP PCP - General Family Medicine 02/14/21 04/02/22 documented as of this encounter
--- OUTSIDE RECORDS SUMMARY | 2023-09-15 02:24 | XMS_ITS | Encounter Summary ---
Author Organization [facility] Address [facility] [place] [address] Care Team Providers Care Sales Development Coordinator Name Role Phone Arias Mast DNP Primary Care Provider [phone] Reason for Visit * Reason Comments Chemotherapy Cycle 1, Day 8; Abax ane * Treatment/Therapy Plan Authorization (Routine) - Closed [...] (Paraplatin) AUC = 5 Cody Frazier MD [address] [place] [address] [place] [address] Cody Frazier MD [address] [place] [address] [place] [address] Referral ID Status Reason Start Date Expiration Date Visits Re quested Visits Authorized [id number] Closed 02/10/2022 2022 99 99 Encounter Details Date Type Department Care Team (Late st Contact Info) Description 07/30/2021 11:00 AM EDT Infusion Hematology Oncology at [address] [phone] Secondary malignant neoplasm of bone; [...] Reading Time Taken Comments Blood Pressure 141/83 07/30/2021 10:59 AM EDT Pulse 97 07/30/2021 10:59 AM EDT Temperature 36.5 ??C (97.7 ??F) 07/30/2021 10:59 AM E DT Respiratory Rate 16 07/30/2021 10:59 AM EDT Oxygen Saturation 100% 07/30/2021 10:59 AM EDT Inhaled Oxygen Concentration - - Weight 61.8 kg (136 lb 3.2 oz) 07/30/2021 10:59 AM EDT Height 178 cm (5' 10.08) 07/30/2021 10:59 AM ED T Body Mass Index 19.5 07/30/2021 10:59 AM EDT documented in this encounter Progress Notes * Erik Mart RN - 07/30/2021 11:00 AM EDT INFUSION THERAPY ADMINISTRATION NOTES DIAGNOSIS: NSCLC CYCLE #: 1, Day 8; Abraxane REASON FOR VISIT: begin chemotherapy SUBJECTIVE Alexis is here for C1D8 Apraxane. No complaints. OBJECTIVE LAB DATA: 07/30 at [facility] reviewed and adequate for treatment today. IV ACCESS: PIV BLOOD RETURN: yes ANY S/S OF INFECTION/EXTRAVASATIONS: IV FLUSHED WITH: NS IV DISCONTINUED: yes Pre administration: Chemotherapy orders independently verified for drug name, route, and dosage per patient's height, weight and BSA by ERIK MART RN and staff pharmacist. REACTIONS (DESCRIPTION, TIME, INTERVENTION AND EFFECTIVENESS) none ASSESSMENT Alexis was awake, alert and he tolerated treatment well. Chemo teach completed during clinic visit,reinforced arita points. PLAN Long acting morphine script renewed by AUTOMOTIVE EXHAUST EMISSIONS TECHNICIAN. Return to clinic as scheduled. Reminded to call in the meantime with any questions/concerns. documented in this encounter Plan of Treatment Upcoming Encounters Date Type Department Care Team (Late st Contact Info) Description 09/22/2023 2:30 PM EDT Office Visit Hematology/Oncology at [address] [phone] Cody Frazier MD [facility] DR [place] [address] documented as of this encounter Visit Diagnoses [...] 8 mg, Oral, ONCE, 1 dose, On Fri07/30/21 at 1130, Administer prior to chemotherapy, Routine Given 07/30/2021 11:41 AM EDT 8 mg PACLitaxeL-protein bound (Abraxane) injection 177 mg 177 mg (100 mg/m2/dose ? 1.77 m2 Treatment Plan BSA from Recorded weight), Intravenous, ONCE, 1 dose, On Fri07/30/21 at 1230, Administer over 30 Minutes New Bag 07/30/2021 12:02 PM EDT 177 mg 70. 8 mL/hr documented in this encounter Care Teams Sales Development Coordinator Relationship Specialty Start Date End Date Arias Mast DNP PCP - General Family Medicine 02/14/21 04/02/22 documented as of this encounter
--- OUTSIDE RECORDS SUMMARY | 2023-09-15 02:24 | XMS_ITS | Encounter Summary ---
Author Organization [facility] Address [facility] [place] [address] Care Team Providers Care Lining Scrubber Name Role Phone Arias Mast DNP Primary Care Provider [phone] Reason for Referral * Diagnostic Test (Emergency) - Closed Specialty Diagnoses / Procedures Referred By Contac t Referred To Contact Radiology Diagnoses Mass of lower lobe of right lung Procedures IR All Biopsy Procedures Román Valdivia MD [facility] [place] [address] [place] [address] Referral ID Status Reason Start Date Expiration Date V isits Requested Visits Authorized [id number] Closed Specialty Service Requested 06/27/2021 02/09/2022 1 1 Reason for Visit * Diagnostic Test (Emergency) - Closed Specialty Diagnoses / Procedures Referred By Contac t Referred To Contact Radiology Diagnoses Mass of lower lobe of right lung Procedures IR All Biopsy Procedures Román Valdivia MD [facility] [place] [address] [place] [address] Referral ID Status Reason Start Date Expiration Date V isits Requested Visits Authorized [id number] Closed Specialty Service Requested 06/27/2021 02/09/2022 1 1 Encounter Details Date Type Department Care Team (Latest Contact Info) Description 06/27/2021 8:28 AM EDT - 06/27/2021 11:59 PM EDT Hospital Encounter Radiology at [facility] [place] [address] Román Valdivia MD [facility] [place] [address] Mass of lower lobe of right lung; Lung mass Discharge Disposition: Home Social History Tobacco Use [...] slept in a jail (including now)? No 02/14/2021 Sex and Gender Information Value Date Recorded Sex Assigned at Not on file Gender Identity Not on file Sexual Orientation Not on file documented as of this encounter Last Filed Vital Signs Vital Sign Reading Time Taken Comments Blood Pressure 103/72 06/27/2021 11:15 AM EDT Pulse 93 06/27/2021 9:40 AM EDT Temperature 36.7 ??C (98 ??F) 06/27/2021 9:50 AM EDT Respiratory Rate 20 06/27/2021 11:15 AM EDT Oxygen Saturation 100% 06/27/2021 11:15 AM EDT Inhaled Oxygen Concentration - - Weight - - Height - - Body Mass Index - - documented in this encounter Discharge Instructions * Discharge Instructions* Rebecca Dominguez RN - 06/27/2021 9:25 AM EDT [facility] Vascular and Interventional Radiology Biopsy Discharge Instructions [...] be reported to you by your primary long term care social worker or the clinician who ordered the biopsy. Please do not call us for results as we will not have them. If you have not been contacted by your clinician within 5 business days you should call that officefor further information. When to call the Interventional Radiology Department: Please call with any questions or concerns. If it is during regular office hours, please call [phone]. If it is after regular office hours, or on weekends or holidays, please call [phone] and ask to speak to the Sheet Folder home sales consultant for Interventional Radiology. You have received medication [...] Sig Dispensed Refills Start Date End Date ProChamber Spacer 01/23/2021 ProAir HFA 90 mcg/actuation HFA Aerosol Inhaler Inhale 2 puffs into the lungs every 4 hours as needed. EVERY 4 TO 6 HOURS NEEDED PRN 05/25/2021 Spiriva with HandiHaler 18 mcg Capsule, w/Inhalation Device Inhale 18 mcg into the lungs daily. 01/23/2021 mirtazapine (Remeron) 15 mg tablet Take 15 mg by mouth nightly. 03/22/2021 04/23/2023 morphine CR (Ms Contin) 30 mg Tablet Sustained Release Take 1 tablet by mouth 2 times daily. 60 tablet 06/27/2021 07/30/2021 morphine IR (MSIR) 15 mg Tablet Take 1 tablet every 4 hours NEEDED for pain. 60 tablet 06/27/2021 07/05/2021 omeprazole (PriLOSEC) 40 mg Capsule, Delayed Release(E.C.) Take 40 mg by mouth daily. 05/25/2021 05/22/2022 pregabalin (Lyrica) 50 mg Capsule Take by mouth nightly. 05/29/2021 10/22/2021 oxyCODONE-acetaminophen (Percocet) 5-325 mg Tablet Take 1 tablet by mouth every 6 hours as needed for Pain. 30 tablet 06/19/2021 06/29/2021 Advair Diskus 250-50 mcg/dose Disk with Device Inhale 250 puffs into the lungs 2 times daily. 01/23/2021 04/26/2023 documented as of this encounter Progress Notes * Holland Morgan RN - 06/27/2021 12:29 PM EDT Pt discharged to [facility] to meet friend and ride. * Holland Morgan RN - 06/27/2021 11:21 AM EDT Pt discharge eligible per Angio-post protocol, VSS, asymtpomatic, dressing CDI. Pt up and ambulated, dressed in to personal clothing, awaiting RCT ride service. * Rebecca Dominguez RN - 06/27/2021 10:04 AM EDT Report given to Holland, recovery nurse. * Holland Morgan RN - 06/27/2021 9:53 AM EDT Pt received from procedural room, report taken from Rebecca GOMEZ. VSS, asymptomatic, dressing CDI, will continue to monitor. * Rebecca Dominguez RN - 06/27/2021 9:41 AM EDT Pt tolerated procedure, he denied pain, dressing intact on puncture site * Rebecca Dominguez RN - 06/27/2021 9:40 AM EDT ANGIO NURSING DATABASE Name: HOLLAND PELAYO Date of : 1970 AGE: 50 y.o. Address: [address] [place] [id number] (home) Mobile: Telephone Information: Referring Provider: Román Valdivia REASON FOR VISIT: Order Questions Answers Where will study be performed? [facility] Radiology [120] Is the patient on anticoagulant / antiplatelet therapy ? No Reason for exam and clinical history: right chest wall mass No Known Allergies Pertinent PMH: There is no problem list on file for this patient. Pertinent PSH: No past surgical history on file. Date/Procedure Meds given/comments 06/27/21 Right chest biopsy Fentanyl IV 150 mcg , Versed IV 1.5 mg 0912 to procedure room 2 via stretcher. Onto table prone. All monitors, O2, safety strap in place. Meds per protocol. Laboratory Results: Lab Results Component Value Date PLATELET 452 (H) 02/14/2021 documented in this encounter H&P Notes * Hubert Eisenberg MD - 06/27/2021 8:43 AM EDT INTERVENTIONAL RADIOLOGY FOCUSED H&P: Procedure: U/S-guided right posterior chest wall lesion biopsy The patient's history and physical exam have been reviewed and completed. There has been no interval change from that of the pre-operative history and physical exam done within the last 30 days. Physical Exam: Cardiovascular: Regular, Normal Pulmonary: Expiratory wheezes to auscultation bilaterally Chest: Deformity overlying right mid back , likely at site of the known destructive lesion, no overlying erythema or purulence The planned procedure (and sedation plan if appropriate) , its benefits and risks, and alternativeswere discussed with the patient. The patient consented to the procedure. PRE-SEDATION ASSESSMENT: Sedation Plan: moderate (conscious sedation) ASA: 3: Patient with severe systemic disease Mallampati: II: tonsillar pillars are blocked by the tongue Confirm NPO status: Yes History of anesthetic complications: No Current medications reviewed: Yes Allergies reviewed: Yes Source Note - Román Mcclellan DO - 06/21/2021 12:46 PM EDT Images from the original note were not included. INTERVENTIONAL RADIOLOGY FOCUSED H&P and PRE-PROCEDURE NOTE: PCP: Arias Mast APRN Referring Provider: Christiane Valdivia Planned Procedure: Planned procedure: Right Chest Wall Mass Biopsy Procedure Indication: Right chest wall mass. Possible primary pulmonary malignancy. Need for histopathologic diagnosis. Procedure Request: Procedure request received through the Interventional Radiology eDH order queue. Presenting Diagnosis/ Complaint: Holland Pelayo is a 50 y.o. male presenting to IR for right posterior chest wall mass biopsy. Past medical history is significant for COPD/emphysema, Migraines, Diverticulitis, and GERD who developed chest pain and shortness of breath. He has been shown to have an e nlarging right pleural based mass now with extension into the chest wall with rib destruction. Unknown primary malignancy. Request for percutaneous biopsy for histopathologic diagnosis. IR History: None at [facility]. Antiplatelets: None. Anticoagulants: None. Recent Laboratories: ??? Platelets: 452 on 02/14/21. ??? INR: None. ??? Creatinine: None. ??? Getting Laboratories Before Procedure: No. Allergies: None. Past Medical/Surgical History: As detailed above. Medications: Current Outpatient Medications on File Prior to Visit Medication Sig Dispense Refill ??? ProAir HFA 90 mcg/actuation HFA Aerosol Inhaler Inhale 2 puffs into the lungs every 4 hours as needed. EVERY 4 TO 6 HOURS NEEDED ??? omeprazole (PriLOSEC) 40 mg Capsule, Delayed Release(E.C.) Take 40 mg by mouth daily. ??? pregabalin (Lyrica) 50 mg Capsule Take by mouth 2 times daily. ??? oxyCODONE-acetaminophen (Percocet) 5-325 mg Tablet Take 1 tablet by mouth every 6 hours as needed for Pain. 30 tablet 0 ??? Advair Diskus 250-50 mcg/dose Disk with Device Inhale 250 puffs into the lungs 2 times daily. ??? Spiriva with HandiHaler 18 mcg Capsule, w/Inhalation Device Inhale 18 mcg into the lungs daily. No current facility-administered medications on file prior to visit. Allergies: Patient has no known allergies. Social History and Habits: Social History Socioeconomic History ??? Marital status: Single Spouse name: Not on file ??? Number of children: Not on file ??? Years of education: Not on file ??? Highest education level: Not on file Occupational History ??? Not on file Tobacco Use ??? Smoking status: Current Every Day Smoker Types: Cigarettes ??? Smokeless tobacco: Never Used ??? Tobacco comment: 10 per day Vaping Use ??? Vaping Use: Never used Substance and Sexual Activity ??? Alcohol use: Not on file ??? Drug use: Not on file ??? Sexual activity: Not on file Other Topics Concern ??? Not on file Social History Narrative ??? Not on file Social Determinants of Health Financial Resource Strain: Low Risk ??? Difficulty of Paying Living Expenses: Not very hard Food Insecurity: Food Insecurity Present ??? Worried About Running Out of Food in the Last Year: Sometimes true ??? Ran Out of Food in the Last Year: Sometimes true Transportation Needs: No Transportation Needs ??? Lack of Transportation (Medical): No ??? Lack of Transportation (Non-Medical): No Physical Activity: Not on file Housing Stability: Low Risk ??? Unable to Pay for Housing in the Last Year: No ??? Number of Places Lived in the Last Year: 1 ??? Unstable Housing in the Last Year: No Significant Family History: No family history on file. Pertinent ROS: as per HPI Labs: Lab Results Component Value Date WBC 13.1 (H) 02/14/2021 HCT 48.8 (H) 02/14/2021 PLATELET 452 (H) 02/14/2021 Imaging: Physical Exam: Pending (to be performed in angio the day of procedure) ASA: Pending (to be assessed in angio the day of procedure) Mallampati Class: Pending (to be assessed in angio the day of procedure) Assessment: 50 y.o. male presenting to IR for right posterior chest wall mass biopsy. Past medical history is significant for COPD/emphysema, Migraines, Diverticulitis, and GERD who developed chest pain and shortness of breath. He has been shown to have an enlarging right pleural based mass now with extension into the chest wall with rib destruction. Unknown primary malignancy. Request for percutaneous biopsy for histopathologic diagnosis. Plan: Planned procedure: Right Chest Wall Mass Biopsy Labs to be performed day of procedure: No labs Sedation: Moderate (Conscious sedation) Prophylactic antibiotic : None Contrast: No contrast Additional medications for procedure: Lidocaine Planned access site: Right Posterior Thorax Position: Prone Consent: Pending Medications to discontinue (and days held): None Case Urgency:: G- Other (non E or F elective cases) 06/21/2021 documented in this encounter Procedure Notes * Buddy Dick MD - 06/27/2021 9:42 AM EDT IR PROCEDURE NOTE Procedure: Ultrasound guided right posterior chest wall biopsy. Indication for Procedure: Per Dr. Mcclellan, Holland Pelayo is a 50 y.o. male presenting to IR for right posterior chest wall mass biopsy. Past medical history is significant for COPD/emphysema, Migraines, Diverticulitis, and GERD who developed chest pain and shortness of breath. He has been shown to have an enlarging right pleural based mass now with extension into the chest wall with rib destruction. Unknown primary malignancy. Request for percutaneous biopsy for histopathologic diagnosis. Procedure events and findings: After obtaining informed consent, pt was positioned prone. Due to the painful nature of the procedure, patient received split doses of intravenous fentanyl and versed from the IR nurse while pulse, pressure, and oxygen saturation were continuously monitored. Initial ultrasound showed posterior right chest wall mass as on prior imaging. A site for bx was chosen and identified on the skin. The skin was marked and prepped, maximum sterile barrier technique was used throughout. Local anesthesia provided with 1% lidocaine, a 19ga coaxial needle was directed to the lesion with ultrasound guidance. Five 20-gauge 2 cm core biopsies were obtained. Four were sent in form flavia for pathology and one for gram stain and cultures. Post biopsy ultrasound showed no evidence of hematoma or hemorrhage. Medications: Fentanyl 150 mcg IV, Versed 1.5mg IV, 1% Lidocaine <10ccs subcutaneous. Est Blood Loss: <5cc. Complications: No immediate. Impression: 1. Posterior right chest wall mass as on prior imaging. 2. Ultrasound guided right posterior chest wall biopsy with five 20-gauge 2cm core biopsies obtained, four for Pathology and one for gram stain and cultures. 3. Post biopsy ultrasound showed no evidence of hematoma or hemorrhage. Resident/Fellow: None Attending: I, Dr. Dick performed this procedure. I was present during the intraservice time as documented by the IR Nurse. documented in this encounter Plan of Treatment Upcoming Encounters Date Type Department Care Team (Late st Contact Info) Description 09/22/2023 2:30 PM EDT Office Visit Hematology/Oncology at [address] [phone] Cody Frazier MD [facility] [address] [place] [address] documented as of this encounter Procedures Procedure Name Priority Date/Time Associated Diagnosis Comments IR ALL BIOPSY PROCEDURES STAT 06/27/2021 9:48 AM EDT Mass of lower lobe of right lung FUNGAL STAIN Routine 06/27/2021 9:35 AM EDT HC TISSUE HOMOGENIZATION FOR CULTURE Routine 06/27/2021 9:35 AM EDT Lung mass FUNGUS CULTURE Routine 06/27/2021 9:35 AM EDT SOLID TUMOR NGS PANEL Routine 06/27/2021 8:54 AM EDT SURGICAL PATHOLOGY REPORT Routine 06/27/2021 8:54 AM EDT SPECIMEN TO PATHOLOGY Routine 06/27/2021 8:54 AM EDT documented in this encounter Results * IR All Biopsy Procedures (06/27/2021 9:48 AM EDT) Anatomical Region Laterality Modality X-Ray Angiograph y Narrative 06/27/2021 9:53 AM EDT IR PROCEDURE NOTE ?? Procedure: Ultrasound guided right posterior chest wall biopsy. ?? Indication for Procedure: Per Holland Medina??is a 50 y.o.??male??presenting to IR for??right posterior chest wall mass biopsy. ??Past medical history is significant for COPD/emphysema,??Migraines,??Diverticulitis, ??and GERD??who developed chest pain and shortness of breath. ??He has been shown to have an enlarging right pleural based mass now with extension into the chest wall with rib destruction. ??Unknown primary malignancy. ??Request for percutaneous biopsy for histopathologic diagnosis. ?? Procedure events and findings: After obtaining informed consent, pt was positioned prone. Due to the painful nature of the procedure, patient received split doses of intravenous fentanyl and versed from the IR nurse while pulse, pressure, and oxygen saturation were continuously monitored. ?? Initial ultrasound showed posterior right chest wall mass as on prior imaging. ??A site for bx was chosen and identified on the skin. ??The skin was marked and prepped, maximum sterile barrier technique was used throughout. ??Local anesthesia provided with 1% lidocaine, a 19ga coaxial needle was directed to the lesion with ultrasound guidance. ??Five 20-gauge 2 cm core biopsies were obtained. ??Four were sent in formalin for pathology and one for gram stain and cultures. ??Post biopsy ultrasound showed no evidence of hematoma or hemorrhage. ? Medications: Fentanyl 150 mcg IV, Versed 1.5mg IV, 1% Lidocaine <10ccs subcutaneous. ?? Est Blood Loss: <5cc. ?? Complications: ??No immediate. ?? Impression: ?? 1. ??Posterior right chest wall mass as on prior imaging. ?? 2. ??Ultrasound guided right posterior chest wall biopsy with five 20-gauge 2cm core biopsies obtained, four for Pathology and one for gram stain and cultures. ?? 3. ??Post biopsy ultrasound showed no evidence of hematoma or hemorrhage. ?? Resident/Fellow: None ?? Attending: I, Dr. Dick performed this procedure. ??I was present during the intraservice time as documented by the IR Nurse.?? Román Valdivia MD IMG IR ORDERABL ES * Calcofluor White Stain (06/27/2021 9:35 AM EDT) Calcofluor Stain Calcofluor White Preparation: Negative [facility] Tissue LUNG STRUCTURE / Unknown 06/27/2021 9:35 AM EDT 06/27/2021 12:39 PM EDT Comment:Bronchial Biopsy Narrative Resulting Agency Comment Spec In Lab Varsha Hollingsworth [facility] - GEN ERAL ORDERABLES Performing Organization Address City/[facility]/ZIP Co de Phone Number [facility] [place] [address] * Fungus culture (06/27/2021 9:35 AM EDT) Fungus Culture No Fungus isolated [facility] Tissue LUNG STRUCTURE / Unknown 06/27/2021 9:35 AM EDT 06/27/2021 12:39 PM EDT Comment:Bronchial Biopsy Narrative Resulting Agency Comment Spec In Lab Varsha Hollingsworth [facility] - GEN ERAL ORDERABLES Performing Organization Address [facility]/[place] [address] * Tissue culture Lung (06/27/2021 9:35 AM EDT) Tissue Culture No growth [facility] Gram Stain No Neutrophils No microorganisms seen. [facility] Lung 06/27/2021 9:35 AM EDT 06/27/2021 10:41 AM EDT Comment:Concern for metastat ic lung malignancy, sarcoma, pleural based tumor, infection Narrative Resulting Agency Comment Spec In Lab Varsha Cardozailana [facility] - GEN ERAL ORDERABLES Performing Organization Address City/[facility]/ZIP Co de Phone [place] [address] * Surgical Pathology Report (06/27/2021 8:54 AM EDT) Final Diagnosis [id number] ? Location: [facility] The signing pathologist has (i) examined the relevant preparation(s) for the specimen(s) and (ii) rendered or confirmed the diagnosis(es). . ? Addendum ADDENDUM DISCUSSION Tissue: ??Right chest wall mass, biopsy Diagnosis: ??Positive for malignancy, compatible with high grade carcinoma Combined Positive Score (CPS): Interpretation Table: PD-L1 assay (22C3 pharmDX) for Keytruda (pembrolizumab)for gastric or gastroesophageal cancer: Combined Positive Score (CPS): 50 ? <1 ? PD-L1 Negative ? >=1 ?PD-L1 Positive Note: CPS is determined by the number of PD-L1 staining cells (tumor cells, lymphocytes, macrophages) divided by total number of tumor cells evaluated, multiplied by 100. Immunohistochemical assay was performed on paraffin-embedded tissue sections fixed in 10% neutral buffered formalin for 6-72 hours using the polymer system technique with appropriate controls. The assay was performed according to the inspecting engineer's instructions using Anti-PD-L1 (22C3, pharmDX) antibody. Electronically signed by: ?Siri KEENE, PhD, Elif Verified: ??07/05/2021 14:59 ??Pathologist Performed at: ??-[facility] Dept. of Pathology, [place], [place] ?Surgical Pathology DIAGNOSIS Right chest wall mass, biopsy - Positive for malignancy, compatible with high grade carcinoma - ? (see Discussion.) Electronically signed by: ?Adali Stinson DO Verified: ??07/04/2021 10:15 ??Pathologist Performed at: ??-[facility] Dept. of Pathology, [place], [place] DISCUSSION The IHC profile is not specific but is positive for multiple keratin stains. ??The tumor shows a few abortive glandular structures and is mixed with dense acute and chronic inflammation. ??An adenocarcinoma is favored. PDL1 and Molecular studies are ordered. ADDITIONAL STUDIES Immunohistochemistry Studies: Formalin-fixed, paraffin-embedded tissue sections are studied using the polymer technique with appropriate positive and negative controls. ?These IHC studies provide the pathologist with adjunctive diagnostic information. Antibody specificity has been verified by testing antibodies on a series of in-house tissues with known immunohistochemical performance characteristics. The clinical interpretation of any antibody positive staining or its absence is evaluated within the context of clinical presentation, morphology, histopathological criteria and other diagnostic tests. . ADDITIONAL STUDIES Block ? Antibody ?Result (Positive/Negative) A2 ? CKAE1/3 ?Positive in lesional cells. ? PAPO ?Positive in lesional cells. ? CK5 ?Positive in lesional cells. ? Muc1 ? Positive in lesional cells. ? CK7 ?Positive in lesional cells. ? CK20 ? Negative in lesional cells. ? P40 ?Negative in lesional cells. ? Synaptophysin ?Negative in lesional cells. ? TTF1(dako) ? Negative in lesional cells. ? CD34 ? Positive in vessels. ? ActSM ?Rare stromal cells an small vessels. ? BCL2 ? Positive in inflammation. A1 ? Calretinin ? Negative in lesional cells. A1 ? WT1 ?Negative in lesional cells. SPECIMEN(S) SUBMITTED A - right chest wall mass, biopsy (Multiple) CLINICAL INFORMATION Right chest wall mass SPECIMEN PROCESSING A - Labeled/Fixative: Right chest wall mass, formalin. Quantity/Size: Five, from 0.5 x 0.1 history of 1.4 x 0.1 cm Tissue Description: Wispy, pink-white needle core biopsies. Sections/Processing: Entirely submitted in 2 cassettes labeled A1-A2. ??pps 07/05/2021 2:59 PM EDT [facility] BIOPSY SPECIMEN / Unknown 06/27/2021 8:54 AM EDT 06/27/2021 8:54 AM EDT Román Valdivia MD PATHOLOGY/CYTOL OGY ORDERABLES [facility] [place] [address] * Solid Tumor NGS Panel (06/27/2021 8:54 AM EDT) Tissue 06/27/2021 8:54 AM EDT 07/06/2021 1:05 PM EDT Narrative Resulting Agency Comment Spec In Lab Romná Valdivia MD PATHOLOGY/CYTOL OGY ORDERABLES Performing Organization Address City/[facility]/[place] [address] * Specimen to Pathology (06/27/2021 8:54 AM EDT) AP Specimen 06/27/2021 8:54 AM EDT 06/27/2021 8:54 AM EDT Narrative [facility] - 06/27/2021 8:54 AM EDT Specimen requisition ordered. ??Separate Pathology report to follow Román Valdivia MD PATHOLOGY/CYTOL OGY ORDERABLES Performing Organization Address City/[facility]/[place] [address] documented in this encounter Visit Diagnoses Diagnosis Mass of lower lobe of right lung Swelling, mass, or lump in chest Lung mass Swelling, mass, or lump in chest documented in this encounter Administered Medications Inactive Administered Medications - up to 3 most recent administrations Medication Order MAR Action Action Date Dose Rate Site fentaNYL (pf) (50 mcg/mL) multi-dose injection 25-50 mcg 25-50 mcg, Intravenous, EVERY 3 MIN PRN, Starting on Fri06/27/21 at 0848, Until Anabella 06/28/21 at 0434, Pain, per unit protocol, - Start dose 50 mcg (reduce dose to 25 mcg if history of sedation sensitivity). - Titration dose 25-50 mcg IV, (based on patient response) every 3 minutes PRN, to maintain procedural pain less than 2 per pain Scale. Maximum dose: 50 mcg/dose, 250 mcg/hour For use in Interventional Radiology (IR) only for procedural sedation with direct provider supervision and verbal order., Angio/IR (Intra-Procedure), Routine Given 06/27/2021 9:37 AM EDT 50 mcg Given 06/27/2021 9:31 AM EDT 50 mcg Given 06/27/2021 9:22 AM EDT 50 mcg lidocaine (Xylocaine) 1% (10 mg/mL) injection 10 mg 10 mg, Subcutaneous, ONCE, 1 dose, On Fri06/27/21 at 0915, For use in Interventional Radiology (IR) only for procedure with direct provider supervision and verbal order., Angio/IR (Intra-Procedure), Routine Given 06/27/2021 9:33 AM EDT 10 mg midazolam (pf) (Versed) (1 mg/mL) multi-dose injection 0.5-1 mg 0.5-1 mg, Intravenous, EVERY 3 MIN PRN, Starting on Fri06/27/21 at 0848, Until Anabella 06/28/21 at 0434, Sleep, - Start dose; 1 mg (Reduce dose to 0.5 mg if history of sedation sensitivity). - Titration dose: 0.5 mg - 1 mg (based on patient response) every 3 minutes PRN to obtain RASS score of -3. Maximum dose: 1 mg per dose, 5 mg/hour. For use in Interventional Radiology (IR) only for procedural sedation with direct provider supervision and verbal order., Angio/IR (Intra-Procedure), Routine Given 06/27/2021 9:37 AM EDT 0.5 mg Given 06/27/2021 9:31 AM EDT 0.5 mg Given 06/27/2021 9:20 AM EDT 0.5 mg documented in this encounter Care Teams Lining Scrubber Relationship Specialty Start Date End Date Arias Mast DNP PCP - General Family Medicine 02/14/21 04/02/22 documented as of this encounter
--- OUTSIDE RECORDS SUMMARY | 2023-09-15 02:24 | XMS_ITS | Encounter Summary ---
Author Organization [facility] Address [facility] [place] [address] Care Team Providers Care Salesperson Florist Supplies Name Role Phone Arias Mast DNP Primary Care Provider [phone] Reason for Visit * Reason Onset Date Comments Other 08/02/2021 Transportation p lans Encounter Details Date Type Department Care Team (Late st Contact Info) Description 08/02/2021 Telephone Hematology/Oncology at [address] [phone] Lorraine Huerta, AUTOMOBILE DAMAGE FIELD APPRAISER OFFICE OF CARE MANAGEMENT Other (Transportation plans) [...] Telephone Encounter - Lorraine Huerta MSW - 08/02/2021 11:23 AM EDT Transportation Plan Review Transportation service provider: REJI @ [phone] Person coordinating transportation: Lorraine Huerta, @ [phone] Transportation request submitted to service provider: yes for appointments on 08-06-21; 08-14-21 and 08-20-21 per appointment desk Reviewed/matched transportation request with appointment schedule: yes per appointment desk Patient has contact information to transportation provider: yes Actions taken today: none SW Interventions: Care Coordination Transportation resources documented in this encounter Plan of Treatment Upcoming Encounters Date Type Department Care Team (Late st Contact Info) Description 09/22/2023 2:30 PM EDT Office Visit Hematology/Oncology at [address] [phone] Cody Frazier MD [facility] HEMATOLOGY [place] [address] documented as of this encounter Visit Diagnoses Not on filedocumented in this encounter Care Teams Salesperson Florist Supplies Relationship Specialty Start Date End Date Arias Mast DNP PCP - General Family Medicine 02/14/21 04/02/22 documented as of this encounter
--- OUTSIDE RECORDS SUMMARY | 2023-09-15 02:24 | XMS_ITS | Encounter Summary ---
Author Organization [facility] Address [facility] [place] [address] Care Team Providers Care Stewardess Supervisor Name Role Phone Arias Mast DNP Primary Care Provider [phone] Encounter Details Date Type Department Care Team (Late st Contact Info) Description 07/03/2021 Orders Only Hematology [place] [address] Cody Frazier MD [facility] DR HEMATOLOGY [place] [address] Lung mass (Primary Dx) Social History Tobacco Use Types Packs/Day Years [...] in a skilled nursing (including now)? No 02/14/2021 Sex and Gender Information Value Date Recorded Sex Assigned at Not on file Gender Identity Not on file Sexual Orientation Not on file documented as of this encounter Plan of Treatment Upcoming Encounters Date Type Department Care Team (Late st Contact Info) Description 09/22/2023 2:30 PM EDT Office Visit Hematology/Oncology at [address] [phone] Cody Frazier MD [facility] DR HEMATOLOGY [place] [address] documented as of this encounter Visit Diagnoses Diagnosis Lung mass- Primary Swelling, mass, or lump in chest documented in this encounter Care Teams Stewardess Supervisor Relationship Specialty Start Date End Date Arias Mast DNP PCP - General Family Medicine 02/14/21 04/02/22 documented as of this encounter
--- OUTSIDE RECORDS SUMMARY | 2023-09-15 02:24 | XMS_ITS | Encounter Summary ---
Author Organization [facility] Address [facility] [place] [address] Care Team Providers Care Wind Site Manager Name Role Phone Arias Mast DNP Primary Care Provider [phone] Encounter Details Date Type Department Care Team (Late st Contact Info) Description 07/05/2021 Notes Only Radiation Oncology at [address] [phone] Lorraine Huerta, HEAD SETTER OFFICE OF CARE MANAGEMENT Social History Tobacco [...] slept in a fci (including now)? No 02/14/2021 Sex and Gender Information Value Date Recorded Sex Assigned at Not on file Gender Identity Not on file Sexual Orientation Not on file documented as of this encounter Progress Notes * Lorraine Huerta MSW - 07/05/2021 3:20 PM EDT Follow up with pt prior to his initial RT treatment today. Pt brought in some information to apply to the [facility] for some financial assistance for his rent. HEAD SETTER will submit his application per his request. Plan to talk further about the F once the date of his cancer diagnosis is 30 days or more Pt indicated RCT did pick him up at his residence as requested so he was granted the public transportation exemption. HEAD SETTER to follow up with pt to discuss other issues related to his financial situation as he questionsabout SSDI. Brief assessment Care Coordination Financial resources Community Resource documented in this encounter Plan of Treatment Upcoming Encounters Date Type Department Care Team (Late st Contact Info) Description 09/22/2023 2:30 PM EDT Office Visit Hematology/Oncology at [address] [phone] Cody Frazier MD [facility] [address] [place] [address] documented as of this encounter Visit Diagnoses Not on filedocumented in this encounter Care Teams Wind Site Manager Relationship Specialty Start Date End Date Arias Mast DNP PCP - General Family Medicine 02/14/21 04/02/22 documented as of this encounter
--- OUTSIDE RECORDS SUMMARY | 2023-09-15 02:24 | XMS_ITS | Encounter Summary ---
Author Organization [facility] Address [facility] [place] [address] Care Team Providers Care Liberal Arts Dean Name Role Phone Arias Mast DNP Primary Care Provider [phone] Reason for Visit * Reason Onset Date Comments Other 07/04/2021 transportation Encounter Details Date Type Department Care Team (Late st Contact Info) Description 07/04/2021 Telephone Radiation Oncology at [address] [phone] Lorraine Huerta, CAREERS ADVISER OFFICE OF CARE MANAGEMENT Other (transportation) Social [...] slept in a assisted (including now)? No 02/14/2021 Sex and Gender Information Value Date Recorded Sex Assigned at Not on file Gender Identity Not on file Sexual Orientation Not on file documented as of this encounter Miscellaneous Notes * Telephone Encounter - Lorraine Huerta MSW - 07/04/2021 8:32 AM EDT Completed public transportation exemption form. Dr. Alva reviewed and signed form and accompanying letter. Faxed information to [facility]. TC RCT to confirm form and letter were faxed to [facility]. Care Coordination Transportation resources documented in this encounter Plan of Treatment Upcoming Encounters Date Type Department Care Team (Late st Contact Info) Description 09/22/2023 2:30 PM EDT Office Visit Hematology/Oncology at [address] [phone] Cody Frazier MD [facility] DR HEMATOLOGY [place] [address] documented as of this encounter Visit Diagnoses Not on filedocumented in this encounter Care Teams Liberal Arts Dean Relationship Specialty Start Date End Date Arias Mast DNP PCP - General Family Medicine 02/14/21 04/02/22 documented as of this encounter
--- OUTSIDE RECORDS SUMMARY | 2023-09-15 02:24 | XMS_ITS | Encounter Summary ---
Author Organization [facility] Address [facility] [place] [address] Care Team Providers Care Sled Maker Name Role Phone Arias Mast DNP Primary Care Provider [phone] Encounter Details Date Type Department Care Team (Late st Contact Info) Description 06/27/2021 4:30 PM EDT Infusion Hematology Oncology at [address] [phone] Chronic thoracic back pain, unspecified back pain laterality; Lung mass Social History Tobacco Use Types Packs/Day Years [...] slept in a half-way (including now)? No 02/14/2021 Sex and Gender Information Value Date Recorded Sex Assigned at Not on file Gender Identity Not on file Sexual Orientation Not on file documented as of this encounter Progress Notes * Azalea Harvey RN - 06/27/2021 4:30 PM EDT Pain Management Note Radiation Oncology Initial Pain Assessment: Location: Right flank, upper back Intensity: 12/20 Aggravation and alleviating factors: worse when he coughs He had biopsy of lung mass this AM at [facility]. He ran out of percocet yesterday and he is anxious thathe has found no one to refill it. Dr Ross originally prescribed it, however now the expectation is for his PCP to take this over and she is on vacation. Dr Alva informed . He asked nurse to call PCP. I called PCP's office [phone] and spoke to Sherley. she states that Arias Mast APRN is on Vacation until Friday ,07/02 and they currently don't have any records from [facility] on this patient yet. They do not have a office policy of a provider that will cover for her in this scenario. I explained that he just had his biopsy today. She asked that our provider order something to cover him until she returns. Dr Alva ordered long and short acting morphine. I explained this to patient. Pain Intervention: Pharmacological- Medication: oxycodone 10 mg Route: po Time administered: 1620 Ordered by: Dr. Alva Administered by: Singh Harvey documented in this encounter Plan of Treatment Upcoming Encounters Date Type Department Care Team (Late st Contact Info) Description 09/22/2023 2:30 PM EDT Office Visit Hematology/Oncology at [address] [phone] Cody Frazier MD [facility] [place] [address] documented as of this encounter Visit Diagnoses Diagnosis Chronic thoracic back pain, unspecified back pain laterality Lung mass Swelling, mass, or lump in chest documented in this encounter Administered Medications Inactive Administered Medications - up to 3 most recent administrations Medication Order MAR Action Action Date Dose Rate Site oxyCODONE (Roxicodone) (1 mg/mL) oral liquid 10 mg 10 mg, Oral, ONCE, 1 dose, On Fri06/27/21 at 1630, Routine Given 06/27/2021 4:20 PM EDT 10 mg documented in this encounter Care Teams Sled Maker Relationship Specialty Start Date End Date Arias Mast DNP PCP - General Family Medicine 02/14/21 04/02/22 documented as of this encounter
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
--- OUTSIDE RECORDS SUMMARY | 2023-09-15 02:24 | XMS_ITS | Encounter Summary ---
Author Organization [facility] Address [facility] [place] [address] Care Team Providers Care Wire Wrapping Machine Operator Name Role Phone Arias Mast DNP Primary Care Provider [phone] Encounter Details Date Type Department Care Team (Late st Contact Info) Description 07/03/2021 2:00 PM EDT TH Visit (TeleHealth) Radiation Oncology at [address] [phone] Christopher Alva MD [address] [place] [address] [place] [address] Lung mass Social History Tobacco Use Types [...] slept in a longterm (including now)? No 02/14/2021 Sex and Gender Information Value Date Recorded Sex Assigned at Not on file Gender Identity Not on file Sexual Orientation Not on file documented as of this encounter Progress Notes * Christopher Alva MD - 07/03/2021 2:00 PM EDT Radiation Oncology Telephone Visit ID Alexis Pelayo is a 50 y[address]. with likely St IV NSCLC. I am calling him today to discuss tumor boardrecs to proceed with palliative RT followed by chemotherapy. Interval Subjective History: Pain is better controlled at this point with narcotics. Interval Objective History: No recent labs / imaging. Assessment/Plan: Alexis understands the recs as above. We will see him later this week to start palliative RT, 10 fraction course. documented in this encounter Plan of Treatment Upcoming Encounters Date Type Department Care Team (Late st Contact Info) Description 09/22/2023 2:30 PM EDT Office Visit Hematology/Oncology at [address] [phone] Cody Frazier MD [facility] [address] [place] [address] documented as of this encounter Visit Diagnoses Diagnosis Lung mass Swelling, mass, or lump in chest documented in this encounter Care Teams Wire Wrapping Machine Operator Relationship Specialty Start Date End Date Arias Mast DNP PCP - General Family Medicine 02/14/21 04/02/22 documented as of this encounter
--- OUTSIDE RECORDS SUMMARY | 2023-09-15 02:24 | XMS_ITS | Encounter Summary ---
Author Organization [facility] Address [facility] [place] [address] Care Team Providers Care Recreation Programmer Name Role Phone Arias Mast DNP Primary Care Provider [phone] Reason for Visit * Reason Onset Date Comments Other 07/10/2021 Financial assist ance with rent Encounter Details Date Type Department Care Team (Late st Contact Info) Description 07/10/2021 Telephone Radiation Oncology at [address] [phone] Lorraine Huerta, VEGETABLE TRIMMER OFFICE OF CARE MANAGEMENT Other (Financial assistance with rent) Social History Tobacco Use Types Packs/Day Years [...] Telephone Encounter - Lorraine Huerta MSW - 07/10/2021 8:35 AM EDT Completed pt's application to the [facility] per his request. Submitted his application requesting $350 towards his $700 monthly rent. Faxed proof of rent to the [facility]. Will notify pt outcome of this request. Financial resources Community Resource documented in this encounter Plan of Treatment Upcoming Encounters Date Type Department Care Team (Late st Contact Info) Description 09/22/2023 2:30 PM EDT Office Visit Hematology/Oncology at [address] [phone] Cody Frazier MD [facility] [address] [place] [address] documented as of this encounter Visit Diagnoses Not on filedocumented in this encounter Care Teams Recreation Programmer Relationship Specialty Start Date End Date Arias Mast DNP PCP - General Family Medicine 02/14/21 04/02/22 documented as of this encounter
--- OUTSIDE RECORDS SUMMARY | 2023-09-15 02:24 | XMS_ITS | Encounter Summary ---
Author Organization [facility] Address [facility] [place] [address] Care Team Providers Care Economic Forecaster Name Role Phone Arias Mast DNP Primary Care Provider [phone] Encounter Details Date Type Department Care Team (Latest Contact Info) Description 07/03/2021 Multidisciplinary Ca re [place] [phone] Darin Adkins MD [facility] [place] [address] Social History Tobacco Use Types Packs/Day Years [...] as of this encounter Progress Notes * Darin Adkins MD - 07/03/2021 8:11 AM EDT Thoracic - Tumor Board Note Date Presented: 07/03/2021 Presenting Physician: Darin Adkins MD Diagnosis/Tumor Site: R chest wall/lung mass Is this Metastatic Disease: Presumed metastatic Synopsis of History/HPI: Mr. Alexis Pelayo is a 50 y.o. gentleman with a smoking history and large destructive right posterior pleural based mass, small mildly avid R pleural effusion, FDG avid mediastinal/R hilar lymph nodes, diffused marrow activity in the axial skeleton (?GCSF producing malignancy) and several other findings on PET as noted in the impression. He underwent an in- clinic FNA w/19 gauge needle of the chest wall mass on 06/19/21 labeled as atypical but a hypocellular specimen. He was presented at [facility] on 06/26/21 and underwent IR guided biopsy of the R chest wall mass on 06/27/21. He saw Dr. Alva on 06/27/21 and simulation completion. Pathology report is pending as of today's [facility] presentation. MR brain was negative for mets. 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 Alva's 06/27/21 note Molecular Pathology Results: Pending Clinical Trial Availability: Not discussed Options Discussed: Simulation completed for pallation of the lung. Discussed role of definitive intent chemotherapy given constellation of PET/CT findings. Recommendations: At this time the CTOP group recommends palliative treatment (as opposed to definitive chemo/RT) and there likely is no role for upfront combined treatments so as to limit toxicity. Will continue with plans for palliative RT with Dr. Alva and Oncology will ensure he is scheduled to see them as well (referral previously placed). Await finalization of pathology report. DISCLAIMER: The patient was discussed and the tumor board made recommendations but it is ultimatelyup to the treatment provider(s) and the patient to determine the patient???s care. Darin Adkins MD, 07/03/2021, 8:11 AM Interventional Pulmonology Section of Pulmonary & Critical Care Pager: [phone] documented in this encounter Plan of Treatment Upcoming Encounters Date Type Department Care Team (Late st Contact Info) Description 09/22/2023 2:30 PM EDT Office Visit Hematology/Oncology at [address] [phone] Cody Frazier MD [facility] DR [place] [address] documented as of this encounter Visit Diagnoses Not on filedocumented in this encounter Care Teams Economic Forecaster Relationship Specialty Start Date End Date Arias Mast DNP PCP - General Family Medicine 02/14/21 04/02/22 documented as of this encounter
--- OUTSIDE RECORDS SUMMARY | 2023-09-15 02:24 | XMS_ITS | Encounter Summary ---
Author Organization [facility] Address [facility] [place] [address] Care Team Providers Care Staffing Analyst Name Role Phone Arias Mast DNP Primary Care Provider [phone] Reason for Visit * Reason Onset Date Comments Labs Only 07/19/2021 Lab data visualization developer, critical platelet count Encounter Details Date Type Department Care Team (Late st Contact Info) Description 07/19/2021 Telephone Hematology Oncology at [address] [phone] Aydee Yung RN Labs Only (Lab data visualization developer, critical platelet count) Social History Tobacco Use Types Packs/Day Years [...] Office Visit Hematology/Oncology at [address] [phone] Cody Frazier MD [facility] DR [place] [address] documented as of this encounter Procedures Procedure Name Priority Date/Time Associated Diagnosis Comments CBC (WITH DIFF) Routine 07/19/2021 COMPREHENSIVE METABOLIC PANEL Routine 07/19/2021 documented in this encounter Results * (ABNORMAL) Comprehensive metabolic panel (non-fasting) (07/19/2021) Blood Urea Nitrogen 8 Creatinine 0.9 Sodium 134(L) Potassium 4.8 Calcium 9.3 Protein, Total 8.3 Albumin 2.9 Bilirubin, Total 0.2 Alkaline Phosphatase 76 Aspartate Aminotransferase 12 Alanine Aminotransferase 18 Magnesium 2.1 mg/dL Thyroid Stimulating Hormone 1.02 Free T4 1.29 Blood 07/19/2021 Historical Provider CHEMISTRY ORDERAB LES * (ABNORMAL) CBC (with Diff) (07/19/2021) White Blood Cell 17.15(H) Red Blood Cell 3.91 Hemoglobin 8.9(L) Hematocrit 29.2(L) Platelet 802(Critic al) ANC 15.06(H) Blood 07/19/2021 Historical Provider HEMATOLOGY ORDERA BLES documented in this encounter Visit Diagnoses Not on filedocumented in this encounter Care Teams Staffing Analyst Relationship Specialty Start Date End Date Arias Mast DNP PCP - General Family Medicine 02/14/21 04/02/22 documented as of this encounter
--- OUTSIDE RECORDS SUMMARY | 2023-09-15 02:24 | XMS_ITS | Encounter Summary ---
Author Organization [facility] Address [facility] [place] [address] Care Team Providers Care Plow Holder Name Role Phone Arias Mast DNP Primary Care Provider [phone] Reason for Visit * Reason Onset Date Comments Other 06/26/2021 Regarding pain m gt and question about biopsy Encounter Details Date Type Department Care Team (Late st Contact Info) Description 06/26/2021 Telephone Pulmonology at [facility] [place] [phone] Meryl Ozuna, RN Other (Regarding pain mgt and question about biopsy) Social History Tobacco Use Types Packs/Day Years Used Date Smoking Tobacco: Every Day Cigarettes Smokeless Tobacco: Never Comments:10 per day Alcohol Use Standard Drinks/Week Comments Yes 3 (1 standard drink = 0.6 oz pur e alcohol) Overall Financial Resource Strain (CARDIA) Answe r [...] slept in a mcc (including now)? No 02/14/2021 Sex and Gender Information Value Date Recorded Sex Assigned at Not on file Gender Identity Not on file Sexual Orientation Not on file documented as of this encounter Miscellaneous Notes * Telephone Encounter - Meryl Ozuna RN - 06/26/2021 8:38 AM EDT I have received a message from Anna Frost at [facility] stating,Hi there, Alexis will be coming to see us in [facility] for radiation treatment. When I called to schedule him outfor his staging, he let me know that he is in incredible pain and was wondering if he could change the frequency/dosage for the oxyCODONE- acetaminophen (Percocet) 5-325 mg Tablet [[id number]] order Dr. Valdivia put in for him last week. He said he vomitted from the amount of pain he is in. He'swondering if instead of taking 1 tablet every 6 hours, if he can take 2 tablets every 8. He was also wondering if someone from your office could give him a call because he was some questions regarding his Bx on Friday. Can you please give him a call at [phone]? I have sent a message to Dr. Adkins (covering while Dr. Valdivia is out) and received a response, Meryl - at this point he really needs to contact his primary care office for pain management assistance as this is becoming more out of our hands/out of my comfort level. If he wants info regarding his biopsy you can forward a note to [facility]. Thanks! Darin I have called pt back to relay Dr. Adkins's message. Pt also tells me that he will need a refill for his pain medications as he will be uncomfortable in the car ride for tomorrow's biopsy. I have told pt I can reach out to his PCP to discuss his pain management. I have also asked pt what other questions he have for his biopsy for tomorrow, pt asked if Dr. Valdivia will be doing it. I have told pt that Dr. Valdivia is not the performing doctor for tomorrow's biopsy. Pt verbalized understanding and will await callback from either his PCP's office or us on the update on his pain management. I have called the clinic of Arias Mast APRN, left vmm, explaining pt's need for the continuity ofpain management. I requested they reach out to pt today to discuss. Left my direct line for any questions/ concerns. JUAN MANUEL Ventura, RN Department of Pulmonary 5C, [facility] Pager: [phone] documented in this encounter Plan of Treatment Upcoming Encounters Date Type Department Care Team (Late st Contact Info) Description 09/22/2023 2:30 PM EDT Office Visit Hematology/Oncology at [address] [phone] Cody Frazier MD [facility] DR HEMATOLOGY AND ONCOLOGY [facility] [place] [address] documented as of this encounter Visit Diagnoses Not on filedocumented in this encounter Care Teams Plow Holder Relationship Specialty Start Date End Date Arias Mast DNP PCP - General Family Medicine 02/14/21 04/02/22 documented as of this encounter
--- OUTSIDE RECORDS SUMMARY | 2023-09-15 02:24 | XMS_ITS | Encounter Summary ---
Author Organization [facility] Address [facility] [place] [address] Care Team Providers Care Material Yard Clerk Name Role Phone Arias Mast DNP Primary Care Provider [phone] Encounter Details Date Type Department Care Team (Late st Contact Info) Description 06/21/2021 Notes Only Radiology at [facility] [place] [phone] Román Mcclellan, [facility] [place] [address] Social History Tobacco Use Types Packs/Day Years Used Date Smoking Tobacco: Every Day Cigarettes Smokeless Tobacco: Never Comments:10 per day Overall Financial Resource Strain (CARDIA) Answe r [...] slept in a fdc (including now)? No 02/14/2021 Sex and Gender Information Value Date Recorded Sex Assigned at Not on file Gender Identity Not on file Sexual Orientation Not on file documented as of this encounter H&P Notes * Román Mcclellan, DO - 06/21/2021 12:46 PM EDT Images [...] Presenting Diagnosis/ Complaint: Alexis Pelayo is a 50 y.o. male presenting [...] for histopathologic diagnosis. IR History: None at [facility]. Antiplatelets: None. Anticoagulants: None. Recent Laboratories: ??? [...] elective cases) 06/21/2021 documented in this encounter Plan of Treatment Upcoming Encounters Date Type Department Care Team (Late st Contact Info) Description 09/22/2023 2:30 PM EDT Office Visit Hematology/Oncology at [address] [phone] Cody Frazier MD [facility] DR [place] [address] documented as of this encounter Visit Diagnoses Not on filedocumented in this encounter Care Teams Material Yard Clerk Relationship Specialty Start Date End Date Arias Mast DNP PCP - General Family Medicine 02/14/21 04/02/22 documented as of this encounter
--- OUTSIDE RECORDS SUMMARY | 2023-09-15 02:24 | XMS_ITS | Encounter Summary ---
Author Organization [facility] Address [facility] [place] [address] Care Team Providers Care Er Rn Name Role Phone Arias Mast DNP Primary Care Provider [phone] Reason for Visit * Consultation (Urgent) - Closed Specialty Diagnoses / Procedures Referred By Kristan t Referred To Contact Pulmonology Diagnoses Right lower lobe lung mass COPD (chronic obstructive pulmonary disease) Arias Mast, ARYA [address] [place] [address] [facility] [address] [place] [phone] Referral ID Status Reason Start Date Expiration Date V isits Requested Visits Authorized [id number] Closed Consult, Test & Treat PCP Updated and/or Approved 05/29/2021 05/29/2022 6 6 Encounter Details Date Type Department Care Team (Late st Contact Info) Description 06/19/2021 1:00 PM EDT [place] [address] Román Valdivia MD [facility] [place] [address] Mass of lower lobe of right lung; Non-cardiac chest pain; Mediastinal adenopathy Social History Tobacco Use Types Packs/Day Years Used Date Smoking Tobacco: Every Day Cigarettes Smokeless Tobacco: Never Comments:10 per day Overall Financial Resource Strain (CARDIA) Crystale r Date Recorded How hard is it [...] slept in a mcfp (including now)? No 02/14/2021 Sex and Gender Information Value Date Recorded Sex Assigned at Not on file Gender Identity Not on file Sexual Orientation Not on file documented as of this encounter Last Filed Vital Signs Vital Sign Reading Time Taken Comments Blood Pressure 158/93 06/19/2021 12:59 PM EDT Pulse 102 06/19/2021 12:59 PM EDT Temperature 36.7 ??C (98.1 ??F) 06/19/2021 1 2:59 PM EDT Respiratory Rate 20 06/19/2021 12:5 9 PM EDT Oxygen Saturation 98% 06/19/2021 12: 59 PM EDT Inhaled Oxygen Concentration - - Weight 68.5 kg (151 lb) 06/19/2021 12:5 9 PM EDT self-reported Height 177.8 cm (5' 10) 06/19/2021 12: 59 PM EDT Body Mass Index 21.67 06/19/2021 12:59 PM EDT documented in this encounter Progress Notes * Román Valdivia MD - 06/19/2021 1:00 PM EDT Images from the original note were not included. INTERVENTIONAL PULMONOLOGY OUTPATIENT CONSULT NOTE SECTION OF PULMONARY & CRITICAL CARE MEDICINE I have been asked to see Alexis Pelayo in consultation at the request of Arias Mast for a right lower lobe mass seen on chest CT. History of present illness: Alexis Pelayo is a 50 y.o. male who was in his usual state of health until last January when he developed right chest/back pain and shortness of breath. He presented to his PCP with 1 month of cough, productive of brown / clear sputum. He denied any hemoptysis. He was initially treated with Advair and Spiriva. Due to progressive pain, he underwent a chest CTA in January to rule out a pulmonary embolism which showed some thickening of the right pleura measuring 2.7cm as well as underlying emphysema and a repeat CT was recommended in 3 months. A follow-up CT was performed on June 15, which showed a large pleural based mass, prompting this consultation. His main complaint at this time is severe pain, ~4/10 with Motrin, but he does wake in the middle of the night with 11/10 pain. He is short of breath with minimal activity and has a continued cough productive of clear sputum. He denies any fever, chills, sweats but lost 20lbs over the last 5 months Review of systems: ROS otherwise as per HPI and other 12 point ROS is negative. PMH COPD/emphysema Migraines Diverticulitis GERD No HTN, DM, CAD Current Outpatient Medications: ??? ProAir HFA 90 mcg/actuation HFA Aerosol Inhaler, Inhale 2 puffs into the lungs every 4 hours asneeded. EVERY 4 TO 6 HOURS NEEDED, Disp: , Rfl: ??? omeprazole (PriLOSEC) 40 mg Capsule, Delayed Release(E.C.), Take 40 mg by mouth daily., Disp: ,Rfl: ??? pregabalin (Lyrica) 50 mg Capsule, Take by mouth 2 times daily., Disp: , Rfl: ??? Advair Diskus 250-50 mcg/dose Disk with Device, Inhale 250 puffs into the lungs 2 times daily.,Disp: , Rfl: ??? Spiriva with HandiHaler 18 mcg Capsule, w/Inhalation Device, Inhale 18 mcg into the lungs daily., Disp: , Rfl: No Known Allergies Family History: Father: at 72yo from demential Mother: at 52yo from breast CA Sister, [employer] Social History: Smoking status: up to 1ppd x 35y, down to a few cigarettes / day. 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 HEENT: EOMI, PERRLA, benign oropharynx without exudate or erythema. Neck: No cervical, submandibular, or supraclavicular LAD. CV: Regular rate and rhythm, normal S1/S2, no m/g/r. Pulm: Nonlabored breathing. Normal, symmetric chest wall expansion. Clear breath sounds bilaterally. No crackles or wheezes. Abd: Soft, nontender to palpation, non-distended with normoactive bowel sounds throughout. Ext: No clubbing or edema. Neuro: Strength and sensation intact. MSK/skin: livedo reticularis rash on back with palpable mass Accessory clinical data: I reviewed the following imaging studies with Alexis Pelayo: 06/15/[address] c/w chest CT 05/24/21: There were several small FDG avid nodes in the left neck. Therewas a lobulated 93 x 47mm pleural based mass in the posterior RLL that was highly FDG avid and had evidence of complete destruction of the right 9th rib, extending into the posterior chest wall. There were additional pleural-based extension vs a separate nodule up to 22mm. There was a small mildly FDG avid right pleural effusion as well as FDG avid mediastinal, right hilar and right retrocrural nodes. There was additional FDG avidity in a ROYER nodule. There was severe underlying emphysema with bullous disease R>L. 06/15/21 brain MRI: no evidence of metastatic disease I performed a chest US which showed a large, hyperechoic mass with erosion through the rib. Labs: Lab Results Component Value Date WBC 13.1 (H) 02/14/2021 RBC 5.25 02/14/2021 HGB 15.9 02/14/2021 HCT 48.8 (H) 02/14/2021 MCV 93.0 02/14/2021 MCH 30.3 02/14/2021 MCHC 32.6 02/14/2021 PLATELET 452 (H) 02/14/2021 RDWCV 12.6 02/14/2021 LFT's No results found for: ALKPHOS, AST, ALBUMIN, BILIDIR, BILITOT, ALT, PROT LFT's No results found for: ALKPHOS, AST, ALBUMIN, BILIDIR, BILITOT, ALT, PROT Coags No results found for: INR, PT, PTT No results for input(s): GLUCOSE in the last 168 hours. Assessment & Plan: My assessment at this time is that Mr. Alexis Pelayo is a 50 y.o. male who was found to have large FDG avid mass in the right lower lobe with erosion into the chest wall, as well as evidence of madina metastatic disease. We discussed my concerns that this represents metastatic lung cancer, with other malignancies such as a sarcoma or primary pleural based tumor also possible. We further discussed options for obtaining a tissue diagnosis and I would start with an ultrasound guided biopsy of theright chest-wall lesion. Should this be non- diagnostic, he may require a surgical biopsy. If pathologic tissue staging is required by medical oncology we can consider EBUS to get the lymph nodes or po ssibly FNA of a cervical node. All of his questions were answered and he agrees with the plan. I independently reviewed prior lab tests, radiology tests and images on file, requested prior records, and reviewed old records and summarized them in the record above. This visit, including time spent reviewing images, labs and notes, in addition to face-face time encompassed 60 minutes. Román Valdivia MD Chief, Section of Pulmonary and Critical Care Medicine [address] Room [address] [place] [address] Phone [facility] Generic: [phone] [email or web address] Pager #[phone] * Román Valdivia MD - 06/19/2021 1:00 PM EDT Images from the original note were not included. INTERVENTIONAL PULMONOLOGY PROCEDURE NOTE SECTION OF PULMONARY & CRITICAL CARE MEDICINE Procedure(s): FNA with image guidance Procedure Date: 06/19/2021 Indication: Right chest wall mass Attending of Record: Román Valdivia MD Pulmonary [place] Present: None Medications: Lidocaine 1% without Epi 2 mL subcutaneous Sedation Time: N/A Time Out: Performed Maneuvers / Procedure: A sterile field was created and US revealed a large right chest wall mass without Doppler evidence of vascularity. 2mL of % lidocaine were instilled subcutaneously. Under real-time US guidance three passes with a 19ga needle were obtained and sent to cytopathology. Any disposable equipment was visually inspected and deemed to be intact immediately post procedure. Estimated Blood Loss: Minimal Complications: None Relevant Pictures Recommendations: ??? Successful FNA with image guidance ??? Await pending results in the next 3-5 business days Román Valdivia MD, 06/19/2021, 1:49 PM Interventional Pulmonology Section of Pulmonary & Critical Care Pager: [phone] documented in this encounter Plan of Treatment Upcoming Encounters Date Type Department Care Team (Late st Contact Info) Description 09/22/2023 2:30 PM EDT Office Visit Hematology/Oncology at [address] [phone] Cody rFazier MD [facility] DR [place] [address] documented as of this encounter Procedures Procedure Name Priority Date/Time Associated Diagnosis Comments NON-SHEET METAL HELPER FINAL REPORT Routine 06/19/2021 1:47 PM EDT CYTOPATHOLOGY NON-GYNECOLOGICAL Routine 06/19/2021 1:47 PM EDT Mass of lower lobe of right lung documented in this encounter Results * Non-Petroleum Refinery Operator Final Report (06/19/2021 1:47 PM EDT) Diagnosis Discussion [id number] ? Location: 5C The signing pathologist has (i) examined the relevant preparation(s) for the specimen(s) and (ii) rendered or confirmed the diagnosis(es). . ? Non-Petroleum Refinery Operator Final DIAGNOSIS Atypical Electronically signed by: ?Doc KEENE, Tiffanie Verified: ??06/21/2021 11:56 ??Pathologist Performed at: ??-[facility] Dept. of Pathology, [place], [place] DISCUSSION Chest wall, right (FNA): Hypocellular specimen. A few atypical epithelioid cells with discernible nucleoli are noted. Cell block is essentially acellular, precluding further evaluation. ? Additional deeper levels examined. Dr. Palafox has reviewed the case and concurs with the diagnosis. CLINICAL INFORMATION Specimen Source : Chest wall, right (FNA) Pertinent Clinical Data and Significant Therapy: RLL mass Clinical Impression : Lung ca vs sarcoma Pertinent Radiologic Findings ??: (not provided) Gross Description: Received ??in CytoLyt approximately 30 mL total volume of ?? cloudy, colorless fluid. Total Preparation: Liquid-Based Prep 1; Cell Block 1. 06/21/2021 11:56 AM EDT [facility] Misc. FNA 06/19/2021 1:47 PM EDT 06/19/2021 1:47 PM EDT Román Valdivia MD PATHOLOGY/CYTOL OGY ORDERABLES [facility] [place] [address] * Cytopathology Non-Gynecological (06/19/2021 1:47 PM EDT) AP Specimen 06/19/2021 1:47 PM EDT 06/19/2021 1:47 PM EDT Narrative [facility] - 06/19/2021 1:47 PM EDT Specimen requisition ordered. ??Separate Pathology report to follow Román Valdivia MD PATHOLOGY/CYTOL OGY ORDERABLES [facility] [place] [address] documented in this encounter Visit Diagnoses Diagnosis Mass of lower lobe of right lung Swelling, mass, or lump in chest Non-cardiac chest pain Other chest pain Mediastinal adenopathy Enlargement of lymph nodes documented in this encounter Care Teams Er Rn Relationship Specialty Start Date End Date Arias Mast DNP PCP - General Family Medicine 02/14/21 04/02/22 documented as of this encounter
--- OUTSIDE RECORDS SUMMARY | 2023-09-15 02:24 | XMS_ITS | Encounter Summary ---
Author Organization [facility] Address [facility] [place] [address] Care Team Providers Care Internal Salesperson Name Role Phone Arias Mast DNP Primary Care Provider [phone] Reason for Visit * Reason Onset Date Comments Other 07/17/2021 transportation Encounter Details Date Type Department Care Team (Late st Contact Info) Description 07/17/2021 Telephone Hematology/Oncology at [address] [phone] Lorraine Huerta, ADULT SCHOOL COUNSELOR OFFICE OF CARE MANAGEMENT Other (transportation) Social [...] Telephone Encounter - Lorraine Huerta MSW - 07/17/2021 9:48 AM EDT Request from Dr. Frazier and Deanne Nelson RN to clarify with pt his ability to schedule his own rides through [facility]. TC pt and his indicated he can schedule his own rides. He has scheduled his rides for his RT treatments through this week. Discussed scheduling his rides once his chemotherapy begins which per pt is this Friday. No appointments on his schedule at this time. Explained how to schedule his ride to lab and then to the cancercenter when booking with [facility]. Pt thought he could do it and then changed his mind. ADULT SCHOOL COUNSELOR agreed to schedule his first treatment and discuss with pt if he thinks he can manage after that. Touched base with Ashanti Lira, Clinical Client Associate re need to know pt's schedule for next week soride can be arranged. Care Coordination Transportation resources documented in this encounter Plan of Treatment Upcoming Encounters Date Type Department Care Team (Late st Contact Info) Description 09/22/2023 2:30 PM EDT Office Visit Hematology/Oncology at [address] [phone] Cody Frazier MD [facility] HEMATOLOGY AND [place] [address] documented as of this encounter Visit Diagnoses Not on filedocumented in this encounter Care Teams Internal Salesperson Relationship Specialty Start Date End Date Kezia, Arias Dege, DNP PCP - General Family Medicine 02/14/21 04/02/22 documented as of this encounter
--- OUTSIDE RECORDS SUMMARY | 2023-09-15 02:24 | XMS_ITS | Encounter Summary ---
Author Organization [facility] Address [facility] [place] [address] Care Team Providers Care Testing Manager Name Role Phone Arias Mast DNP Primary Care Provider [phone] Encounter Details Date Type Department Care Team (Late st Contact Info) Description 07/19/2021 12:45 PM EDT Office Visit Radiation Oncology at [address] [phone] Christopher Alva MD [address] [place] [address] [place] [address] Malignant neoplasm of lower lobe, [...] Sign Reading Time Taken Comments Blood Pressure 134/88 07/19/2021 12:30 PM EDT Pulse 87 07/19/2021 12:30 PM EDT Temperature 36.7 ??C (98.1 ??F) 07/19/2021 12:30 PM E DT Respiratory Rate 18 07/19/2021 12:30 PM EDT Oxygen Saturation 100% 07/19/2021 12:30 PM EDT Inhaled Oxygen Concentration - - Weight 62.1 kg (137 lb) 07/19/2021 12:30 PM EDT Height 178 cm (5' 10.08) 07/19/2021 12:30 PM ED T Body Mass Index 19.61 07/19/2021 12:30 PM EDT documented in this encounter Progress Notes * Christopher Alva MD - 07/19/2021 12:45 PM EDT Images from the original note were not included. [facility] Medicine Radiation Oncology Radiation Oncology On-treatment Visit Note Patient ID Patient name: Alexis Pelayo Date of : 1970 Referring: Dr Daniel Ross PCP: Arias Mast APRN Chief complaint: St IV NSCLC Treatment Details Intent: Palliation (of painful chest wall mass) Concurrent Therapy: None Modality: 3DCRT Treatment Site RT posterior chest wall Prescribed Dose 30 Gy in 10 fractions Current Dose: 30 Gy in 10 fractions Continuous Drier Operator [place]aulding from Current Plan (minimum 30 Gy isodose volume shown): Interval Clinical Course General: No changes since last seen. Started today. Pain: Chest: Pain score today is 4/10 in his chest wall. He is currently taking MSContin 30mg BID and MSIR 15mg 0-1x/day. Also taking tylenol 3x/day and Aleve 2x/day Stable TRAORE; using Alberteol, Advair, Spiriva Performance Status KPS Score ECOG Grade Definition 90-100 0 Fully active, able to carry on all pre-disease performance without restriction XX 70-80 1 Restricted in physically strenuous activity but ambulatory and able to carry out work ofa light or sedentary nature, e.g., light house [...] selfcare; totally confined to bed or chair Medications Medications 07/19/21 1235 Medication Sig Taking? acetaminophen (Tylenol) 500 mg Tablet Take 1,000 mg by mouth every 6 hours as needed for Pain. Yes naproxen sodium (ALEVE) 220 mg Capsule Take 1 capsule by mouth every 12 hours. Take with food. Yes morphine IR (MSIR) 15 mg Tablet Take 1 tablet every 4 hours NEEDED for pain. Yes ProChamber Spacer Yes morphine CR (Ms [...] for Nausea. Patient not taking: Reported on 07/19/2021 Exam VS BP 134/88 (Patient Position: Sitting) Pulse 87 Temp 36.7 ??C (98.1 ??F) (Temporal) Resp 18 Ht 178 cm (5' 10.08) Wt 62.1 kg (137 lb) SpO2 100% BMI 19.61 kg/m?? General: Appears comfortable, in no distress. Imaging/Labs Interval setup imaging has been checked and approved. See Carolee for details. Impression/Plan Tolerance to radiotherapy: Tolerating as anticipated. Completes today. Pain: Improved; will continue meds. Dr Frazier will assume oversight of his pain regimen. Followup: [facility] as needed. Ongoing plans for palliative systemic therapy via Dr Frazier's clinic. No orders of the defined types were placed in this encounter. documented in this encounter Plan of Treatment Upcoming Encounters Date Type Department Care Team (Late st Contact Info) Description 09/22/2023 2:30 PM EDT Office Visit Hematology/Oncology at [address] [phone] Cody Frazier MD [facility] DR [place] [address] documented as of this encounter Visit Diagnoses Diagnosis Malignant neoplasm of lower lobe, right bronchus or lung documented in this encounter Care Teams Testing Manager Relationship Specialty Start Date End Date Arias Mast DNP PCP - General Family Medicine 02/14/21 04/02/22 documented as of this encounter
--- OUTSIDE RECORDS SUMMARY | 2023-09-15 02:24 | XMS_ITS | Encounter Summary ---
Author Organization [facility] Address [facility] [place] [address] Care Team Providers Care Bander And Cellophaner Machine Name Role Phone Arias Mast DNP Primary Care Provider [phone] Reason for Visit * Reason Onset Date Comments Follow-up 07/27/2021 Encounter Details Date Type Department Care Team (Late st Contact Info) Description 07/27/2021 Telephone Hematology/Oncology at [address] [phone] Trinity Thomson RN Follow-up Social History Tobacco Use Types Packs/Day Years [...] Telephone Encounter - Trinity Thomson RN - 07/27/2021 8:55 AM EDT Post chemo call Placed call to patient to assess tolerance of first time chemotherapy treatment. Regimen received: Date of treatment: Assessment: Symptom?? Present (yes[y]/no[n]/ stable[s] from baseline)?? Additional information/Assessment?? GI? Nausea?n ?? Vomiting?? n ?? Nausea medication?? n ?? Tolerating diet?? y ?? Maintaining fluid intake (indicate volume)?? y ?? Bowel movements regular?? y ?? Diarrhea?n ?? Mouth sores?n ?? General? Pain (0 none - 10 high)?? 3 ??right rib cage Using pain medications?? yes Fever?? n ?? Neuro? Level of fatigue (0 - 5)?3n ?? Falls? Numbness/tingling in arms/legs?? n ?? Cognitive changes?n ?? Skin? Skin changes?? n ?? Pinpoint red dots?? n ?? Other s/s of bleeding?n ?? IV site/VAD problems?n Musculoskeletal? Joint swelling or tenderness?? n ?? Arthralgias or myalgias?? n ? Voiding problems?? n ?? Color and quality of urine?? Clear, yellow ?? Cardio-pulmonary? Shortness of breath?? y ??chromic Chest pain?? n ?? Swelling in legs?? n ?? Calf pain or tenderness?n ?? Cough (productive/non-productive)?? y ??chronic Psychosocial? Coping? I? Need prescription renewals?n ?? Other issues :?? Anxiety. Support provided ?? Education provided: ?? Plan:? 1. Will call with questions or concerns 2. Reinforced to patient/care-extracorporeal technician to call facility 02/09 with any new/worsening signs and symptomsor concerns or questions.?? Phone number provided.?? Pt verbalized understanding and is in agreement with plan. ? documented in this encounter Plan of Treatment Upcoming Encounters Date Type Department Care Team (Late st Contact Info) Description 09/22/2023 2:30 PM EDT Office Visit Hematology/Oncology at [address] [phone] Cody Frazier MD [facility] DR [place] [address] documented as of this encounter Visit Diagnoses Not on filedocumented in this encounter Care Teams Bander And Cellophaner Machine Relationship Specialty Start Date End Date Arias Mast DNP PCP - General Family Medicine 02/14/21 04/02/22 documented as of this encounter
--- OUTSIDE RECORDS SUMMARY | 2023-09-15 02:24 | XMS_ITS | Encounter Summary ---
Author Organization [facility] Address [facility] [place] [address] Care Team Providers Care Biomedical Engineering Technician Name Role Phone Arias Mast DNP Primary Care Provider [phone] Encounter Details Date Type Department Care Team (Late st Contact Info) Description 07/16/2021 Telephone Radiation Oncology at [address] [phone] Lorraine Huerta, [facility] OFFICE OF CARE MANAGEMENT Social History Tobacco [...] Telephone Encounter - Lorraine Huerta MSW - 07/16/2021 8:21 AM EDT Received notification that the [facility] approved pt's request for $350 towards his $700 rent. TC pt and notified him. Discussed applying to the [facility] for additional assistance for his rent. Pt needs to bring in a formal lease or letter and W9 from his landlord as a requirement of that fund. Pt to collect the information and will bring in to DENTAL TECHNICIAN INSTRUCTOR. Care Coordination Financial resources Community Resource Met with pt after his RT treatment and gave him a copy of the [facility] application to fill out. Again discussed the information he will need to get from his landlord. Will assist pt with this once he has brought in all the required information. documented in this encounter Plan of Treatment Upcoming Encounters Date Type Department Care Team (Late st Contact Info) Description 09/22/2023 2:30 PM EDT Office Visit Hematology/Oncology at [address] [phone] Cody Frazier MD [facility] DR [place] [address] documented as of this encounter Visit Diagnoses Not on filedocumented in this encounter Care Teams Biomedical Engineering Technician Relationship Specialty Start Date End Date Arias Mast DNP PCP - General Family Medicine 02/14/21 04/02/22 documented as of this encounter
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
--- OUTSIDE RECORDS SUMMARY | 2023-09-15 02:24 | XMS_ITS | Encounter Summary ---
Author Organization [facility] Address [facility] [place] [address] Care Team Providers Care Learning And Development Associate Name Role Phone Arias Mast DNP Primary Care Provider [phone] Encounter Details Date Type Department Care Team (Late st Contact Info) Description 07/05/2021 4:00 PM EDT Office Visit Radiation Oncology at [address] [phone] Christopher Alva MD [address] [place] [address] [place] [address] Malignant neoplasm of lower lobe, [...] in a senior care (including now)? No 02/14/2021 Sex and Gender Information Value Date Recorded Sex Assigned at Not on file Gender Identity Not on file Sexual Orientation Not on file documented as of this encounter Last Filed Vital Signs Vital Sign Reading Time Taken Comments Blood Pressure 136/76 07/05/2021 4:00 PM EDT Pulse 100 07/05/2021 4:00 PM EDT Temperature 37.1 ??C (98.8 ??F) 07/05/2021 4:00 PM ED T Respiratory Rate 18 07/05/2021 4:00 PM EDT Oxygen Saturation 98% 07/05/2021 4:00 PM EDT Inhaled Oxygen Concentration - - Weight 63.3 kg (139 lb 9.6 oz) 07/05/2021 4:00 P M EDT Height - - Body Mass Index 20.03 06/19/2021 12:59 PM EDT documented in this encounter Progress Notes * Christopher Alva MD - 07/05/2021 4:00 PM EDT Images from the original note were not included. [facility] Medicine Radiation Oncology Radiation Oncology On-treatment Visit Note Patient ID Patient name: Alexis Pelayo Date of : 1970 Referring: Dr Daniel Ross PCP: Arias Mast APRN Chief complaint: St IV NSCLC Treatment Details Intent: Palliation (of painful chest wall mass) Concurrent Therapy: None Modality: 3DCRT Treatment Site RT posterior chest wall Prescribed Dose 30 Gy in 10 fractions Current Dose: 3 Gy in 1 fraction Steam Shovel Operating Engineer [place] from Current Plan (minimum 30 Gy isodose volume shown): Interval Clinical Course General: No changes since last seen. Started today. Pain: Pain score today is 4/10 in his chest wall. He is currently taking MSContin 30mg qhs and [id number] 3-4 x/day. He has enough of the latter to last about 1 more week. Performance Status KPS Score ECOG Grade Definition [...] confined to bed or chair Medications Medications 06/22/21 1615 Medication Sig Taking? morphine CR (Ms Contin) 30 mg Tablet Sustained Release Take 1 tablet by mouth 2 times daily. Yes naproxen sodium (ALEVE) 220 mg Capsule Take 1 capsule by mouth every 12 hours. Take with food. morphine IR (MSIR) 15 mg Tablet Take 1 tablet every 4 hours NEEDED for pain. ProChamber Spacer ProAir HFA 90 mcg/actuation HFA [...] Inhale 18 mcg into the lungs daily. Exam Vitals: BP 136/76 Pulse 100 Temp 37.1 ??C (98.8 ??F) Resp 18 Wt 63.3 kg (139 lb 9.6 oz) SpO2 98% BMI 20.03 kg/m?? General: Appears well, in no distress. More comfortable than last week. Imaging/Labs Interval setup imaging has been checked and approved. See Aria for details. Impression/Plan Tolerance to radiotherapy: Tolerating as anticipated. Continue as planned. Pain: Discussed use of MSContin qAM to decrease daytime need for MSIR, but he finds it overly sedating. Also discussed use of adding NSAID therapy (aleve BID, tylenol 1000mg TID). He requests an rx for naproxen which I sent to his pharmacy. I will also send a refill for MSIR 15mg #60 tabs given I am awayon vacation next week. I expect pain management will transfer to Dr Frazier's clinic upon completion of RT, and with palliative effect of RT, his narcotic requirement will decrease. Followup: RTC for on-treatment assessment next week. No orders of the defined types were placed in this encounter. ??? National Cancer [place] (NCI) [facility] ??? [employer] Commission on Cancer (ACS Case) Accredited Cancer Program ??? [employer] (ACR) Accredited Radiation Oncology Program documented in this encounter Plan of Treatment Upcoming Encounters Date Type Department Care Team (Late st Contact Info) Description 09/22/2023 2:30 PM EDT Office Visit Hematology/Oncology at [address] [phone] Cody Frazier MD [facility] DR HEMATOLOGY [place] [address] documented as of this encounter Visit Diagnoses Diagnosis Malignant neoplasm of lower lobe, right bronchus or lung documented in this encounter Care Teams Learning And Development Associate Relationship Specialty Start Date End Date Arias Mast DNP PCP - General Family Medicine 02/14/21 04/02/22 documented as of this encounter
--- OUTSIDE RECORDS SUMMARY | 2023-09-15 02:24 | XMS_ITS | Encounter Summary ---
Author Organization [facility] Address [facility] [place] [address] Care Team Providers Care Dungeon Master Name Role Phone Arias Mast DNP Primary Care Provider [phone] Reason for Referral * Consultation (Routine) - Closed Specialty Diagnoses / Procedures Referred By Kristan merlos Referred To Contact Radiation Oncology Diagnoses Primary malignant neoplasm of right lower lobe of lung Procedures Simulation for Radiation Therapy Planning Christopher Alva MD [address] [place] [address] [place] [address] [facility] Rad Onc Office [address] [place] [phone] Referral ID Status Reason Start Date Expiration Date V isits Requested Visits Authorized [id number] Closed Consult, Test & Treat 06/27/2021 09/09/2021 11 11 Encounter Details Date Type Department Care Team (Late st Contact Info) Description 06/22/2021 Orders Only Radiation Oncology at [address] [phone] Christopher Alva MD [address] [place] [address] [place] [address] Primary malignant neoplasm of right lower lobe of lung Social History Tobacco Use Types Packs/Day [...] [place] [facility] (including [facility])? No 02/14/2021 Sex and Gender Information Value Date Recorded Sex Assigned at Not on file Gender Identity Not on file Sexual Orientation Not on file documented as of this encounter Plan of Treatment Upcoming Encounters Date Type Department Care Team (Late st Contact Info) Description 09/22/2023 2:30 PM EDT Office Visit Hematology/Oncology at [address] [phone] Cody Frazier MD [facility] DR HEMATOLOGY [place] [address] Scheduled Orders Name Type Priority Associated Diagnoses Orde r Schedule Simulation for Radiation Therapy Planning Procedures Routine Primary malignant neoplasm of right lower lobe of lung Ordered: 06/22/2021 documented as of this encounter Visit Diagnoses Diagnosis Primary malignant neoplasm of right lower lobe of lung Malignant neoplasm of lower lobe, bronchus, or lung documented in this encounter Care Teams Dungeon Master Relationship Specialty Start Date End Date Arias Mast DNP PCP - General Family Medicine 02/14/21 2 documented as of this encounter
--- OUTSIDE RECORDS SUMMARY | 2023-09-15 02:24 | XMS_ITS | Encounter Summary ---
Author Organization [facility] Address [facility] [place] [address] Care Team Providers Care Sterilisation Technician Name Role Phone Arias Mast DNP Primary Care Provider [phone] Encounter Details Date Type Department Care Team (Late st Contact Info) Description 06/29/2021 Orders [place] [address] Jose Norman MD [facility] [place] [address] Social History Tobacco Use Types Packs/Day Years [...] slept in a penitentiary (including now)? No 02/14/2021 Sex and Gender Information Value Date Recorded Sex Assigned at Not on file Gender Identity Not on file Sexual Orientation Not on file documented as of this encounter Progress Notes * Jose Norman MD - 06/29/2021 3:47 PM EDT Is awaiting prior authorization for the immediate release morphine prescribed by Dr. Alva earlier in the week. I attempted to renew a Percocet Rx for him for 30 tablets while this is in progress but it was rejected by the pharmacy. Jose Norman M.D. documented in this encounter Plan of Treatment Upcoming Encounters Date Type Department Care Team (Late st Contact Info) Description 09/22/2023 2:30 PM EDT Office Visit Hematology/Oncology at [address] [phone] Cody Frazier MD [facility] DR [place] [address] documented as of this encounter Visit Diagnoses Not on filedocumented in this encounter Care Teams Sterilisation Technician Relationship Specialty Start Date End Date Arias Mast DNP PCP - General Family Medicine 02/14/21 04/02/22 documented as of this encounter
--- OUTSIDE RECORDS SUMMARY | 2023-09-15 02:24 | XMS_ITS | Encounter Summary ---
Author Organization [facility] Address [facility] [place] [address] Care Team Providers Care Superior Court Clerk Name Role Phone Arias Mast DNP Primary Care Provider [phone] Encounter Details Date Type Department Care Team (Late st Contact Info) Description 07/19/2021 Notes Only Radiation Oncology at [address] [phone] Christopher Alva MD [address] [place] [address] [place] [address] Social History Tobacco Use Types [...] Notes * Christopher Alva MD - 07/19/2021 11:59 PM EDT Images from the original note were not included. [facility] Medicine Radiation Oncology Radiation Therapy Completion Note Patient ID ?? Patient name: Alexis Pelayo Date of : 1970 ? Referring: Dr Daniel Ross PCP: Arias Mast, FOAMITE MIXER ? Chief complaint: St IV NSCLC ? Treatment Details ?? Intent: Palliation (of painful chest wall mass) ?? Concurrent Therapy: None ?? Modality: ?? 3DCRT Treatment Site RT posterior chest wall Prescribed Dose 30 Gy in 10 fractions ? Start Date End Date Elapsed Days 07/05/21 07/19/21 14d ? Outpatient Case Manager [place] from Current Plan (minimum 30 Gy isodose volume shown): ? Clinical Course Treatment tolerance: With regard to side effects noted during radiotherapy, the patient tolerated treatment extremely well with no significant acute (Grade 3 or above) toxicity or unplanned breaks. Treatment response: The patient's response to treatment was good, as his symptoms at time of presentation (primarily pain) improved upon completion. Follow up plan: Follow-up visit with Radiation Oncology in [facility] will be arranged on a prn basis as he willbe following primarily with Dr. Frazier of Medical Oncology for systemic therapy; he has received instructions to call this office or seek the help of the local emergency room if any further problems should arise prior to followup. CHRISTOPHER ALVA MD 08/02/2021 ??? National Cancer [place] (NCI) Comprehensive Cancer [facility] ??? [employer] Commission on Cancer (ACS Case) Accredited Cancer Program ??? [employer] (ACR) Accredited Radiation Oncology Program documented in this encounter Plan of Treatment Upcoming Encounters Date Type Department Care Team (Late st Contact Info) Description 09/22/2023 2:30 PM EDT Office Visit Hematology/Oncology at [address] [phone] Cody Frazier MD [facility] HEMATOLOGY [place] [address] documented as of this encounter Visit Diagnoses Not on filedocumented in this encounter Care Teams Superior Court Clerk Relationship Specialty Start Date End Date Arias Mast DNP PCP - General Family Medicine 02/14/21 04/02/22 documented as of this encounter
--- OUTSIDE RECORDS SUMMARY | 2023-09-15 02:24 | XMS_ITS | Encounter Summary ---
Author Organization [facility] Address [facility] [address] Care Team Providers Care Industrial Locomotive Operator Name Role Phone Arias Mast DNP Primary Care Provider [phone] Reason for Visit * Consultation (Routine) - Closed Specialty Diagnoses / Procedures Referred By Kristan merlos Referred To Contact Radiation Oncology Diagnoses Primary malignant neoplasm of right lower lobe of lung Procedures Simulation for Radiation Therapy Planning Christopher lAva MD [address] [place] [address] [place] [address] [facility] Rad Onc Office [address] [place] [phone] Referral ID Status Reason Start Date Expiration Date V isits Requested Visits Authorized [id number] Closed Consult, Test & Treat 06/27/2021 09/09/2021 11 11 Encounter Details Date Type Department Care Team (Late st Contact Info) Description 06/27/2021 3:30 PM EDT Ancillary Appointment Radiation Oncology at [address] [phone] Christopher Alva MD [address] [place] [address] [place] [address] Social History Tobacco Use Types [...] PM EDT Office Visit Hematology/Oncology at [address] [phone] Cody Frazier MD [facility] DR HEMATOLOGY [place] [address] Scheduled Orders Name Type Priority Associated Diagnoses Orde r Schedule Simulation for Radiation Therapy Planning Procedures Routine Primary malignant neoplasm of right lower lobe of lung Ordered: 06/22/2021 documented as of this encounter Visit Diagnoses Not on filedocumented in this encounter Care Teams Industrial Locomotive Operator Relationship Specialty Start Date End Date Arias Mast DNP PCP - General Family Medicine 02/14/21 04/02/22 documented as of this encounter
--- OUTSIDE RECORDS SUMMARY | 2023-09-15 02:24 | XMS_ITS | Encounter Summary ---
Author Organization [facility] Address [facility] [place] [address] Care Team Providers Care Keeler Polygraph Operator Name Role Phone Arias Mast DNP Primary Care Provider [phone] Reason for Visit * Reason Comments Chemotherapy C1D1 Pembro, Abraxan e, Carboplatin * Treatment/Therapy Plan Authorization (Routine) - Closed [...] (Paraplatin) AUC = 5 Cody Frazier MD [address] [place] [address] DR HEMATOLOGY [place] [address] Cody Frazier MD [address] [place] [address] DR HEMATOLOGY [place] [address] Referral ID Status Reason Start Date Expiration Date Visits Re quested Visits Authorized [id number] Closed 02/10/2022 2022 99 99 Encounter Details Date Type Department Care Team (Late st Contact Info) Description 07/23/2021 12:30 PM EDT Infusion Hematology Oncology at [address] [phone] Secondary malignant neoplasm of bone; [...] Progress Notes * Mohini Caal RN - 07/23/2021 12:30 PM EDT INFUSION THERAPY ADMINISTRATION NOTES DIAGNOSIS: NSCLC CYCLE #: C1D1 REASON FOR VISIT: begin chemotherapy SUBJECTIVE Alexis is here for C1D1 Pembro/abraxane/carboplatin, he met with Dr. Frazier prior to infusion, ready for treatment. OBJECTIVE LAB DATA: 07/19 at [facility] reviewed and adequate for treatment today. IV ACCESS: PIV BLOOD RETURN: yes ANY S/S OF INFECTION/EXTRAVASATIONS: IV FLUSHED WITH: NS IV DISCONTINUED: yes Pre administration: Chemotherapy orders independently verified for drug name, route, and dosage per patient's height, weight and BSA by Yesika Cordero and staff pharmacist. REACTIONS (DESCRIPTION, TIME, INTERVENTION AND EFFECTIVENESS) none ASSESSMENT Alexis was awake, alert and he tolerated treatment well. Chemo teach completed during clinic visit,reinforced arita points. PLAN Return to clinic on 07/30/21 for consideration of C1D8. Reminded to call in the meantime with any questions/concerns. documented in this encounter Plan of Treatment Upcoming Encounters Date Type Department Care Team (Late st Contact Info) Description 09/22/2023 2:30 PM EDT Office Visit Hematology/Oncology at [address] [phone] Cody Frazier MD [facility] DR [place] [address] documented as of this encounter Visit Diagnoses [...] over 2 Minutes, ONCE, 1 dose, On Fri07/23/21 at 1245, Alternative administration of IV push over 2 minutes is a recommendation from the junior analyst. Administer prior to chemotherapy., Routine Given 07/23/2021 12:44 PM EDT 130 mg CARBOplatin (Paraplatin) 568 mg in dextrose 5% 306.8 mL infusion 568 mg (Target AUC = 5), Intravenous, ONCE, 1 dose, On Fri07/23/21 at 1345, Administer over 30 Minutes, Warning Vesicant/Irritant Medication New Bag 07/23/2021 2:37 PM EDT 568 mg 613.6 mL/hr dexAMETHasone (Decadron) tablet 10 mg 10 mg, Oral, ONCE, 1 dose, On Fri07/23/21 at 1245, Administer prior to chemotherapy, Routine Given 07/23/2021 12:43 PM EDT 10 mg PACLitaxeL-protein bound (Abraxane) injection 177 mg 177 mg (100 mg/m2/dose ? 1.77 m2 Treatment Plan BSA from Recorded weight), Intravenous, ONCE, 1 dose, On Fri07/23/21 at 1345, Administer over 30 Minutes New Bag 07/23/2021 1:51 PM EDT 177 mg 70.8 mL/hr palonosetron (Aloxi) (0.05 mg/mL) injection 0.25 mg 0.25 mg, Intravenous, ONCE, 1 dose, On Fri07/23/21 at 1245, Administer over 30 seconds., Routine Given 07/23/2021 12:47 PM EDT 0.25 mg pembrolizumab (Keytruda) 200 mg in sodium chloride 0.9% 108 mL infusion 200 mg, Intravenous, ONCE, 1 dose, On Fri07/23/21 at 1345, Administer over 30 Minutes, Flush line with NS after each dose., This agent is restricted to outpatient use. Is this drug being given as an outpatient? Yes New Bag 07/23/2021 1:09 PM EDT 200 mg 216 mL/hr documented in this encounter Care Teams Keeler Polygraph Operator Relationship Specialty Start Date End Date Arias Mast DNP PCP - General Family Medicine 02/14/21 04/02/22 documented as of this encounter
--- OUTSIDE RECORDS SUMMARY | 2023-09-15 02:24 | XMS_ITS | Encounter Summary ---
Author Organization [facility] Address [facility] [place] [address] Care Team Providers Care Ed Manager Name Role Phone Arias Mast DNP Primary Care Provider [phone] Reason for Visit * Reason Onset Date Comments Medication Refill 07/30/2021 Encounter Details Date Type Department Care Team (Late st Contact Info) Description 07/30/2021 Refill Hematology [place] [phone] Teena Nieto APRN [facility] DR HEMATOLOGY [place] [address] Social History Tobacco Use Types Packs/Day Years [...] PM EDT Office Visit Hematology/Oncology at [address] [phone] Cody Frazier MD [facility] DR HEMATOLOGY [place] [address] documented as of this encounter Visit Diagnoses Not on filedocumented in this encounter Care Teams Ed Manager Relationship Specialty Start Date End Date Arias Mast DNP PCP - General Family Medicine 02/14/21 04/02/22 documented as of this encounter
--- OUTSIDE RECORDS SUMMARY | 2023-09-15 02:24 | XMS_ITS | Encounter Summary ---
Author Organization [facility] Address [facility] [place] [address] Care Team Providers Care Enrolled Nurse Name Role Phone Arias Mast DNP Primary Care Provider [phone] Reason for Referral * Consultation (Routine) - Closed Specialty Diagnoses / Procedures Referred By Kristan merlos Referred To Contact Radiation Oncology Diagnoses Mass of lower lobe of right lung Román Valdivia MD [facility] [place] [address] [facility] Rad Onc Office [address] [place] [phone] Referral ID Status Reason Start Date Expiration Date V isits Requested Visits Authorized [id number] Closed Consult, Test & Treat 06/21/2021 06/21/2022 1 1 * Consultation (Routine) - Closed Specialty Diagnoses / Procedures Referred By Kristan t Referred To Contact Hematology and Oncology Diagnoses Mass of lower lobe of right lung Román Valdivia MD [facility] [place] [address] [facility] Hem Onc [address] [place] [address] Referral ID Status Reason Start Date Expiration Date V isits Requested Visits Authorized [id number] Closed Consult, Test & Treat 06/21/2021 06/21/2022 1 1 * Diagnostic Test (Emergency) - Closed Specialty Diagnoses / Procedures Referred By Contac t Referred To Contact Radiology Diagnoses Mass of lower lobe of right lung Procedures IR All Biopsy Procedures Román Valdivia MD [facility] [place] [address] [facility] [place] [address] Referral ID Status Reason Start Date Expiration Date V isits Requested Visits Authorized [id number] Closed Specialty Service Requested 06/27/2021 02/09/2022 1 1 Encounter Details Date Type Department Care Team (Late st Contact Info) Description 06/21/2021 Orders [place] [phone] Román Valdivia MD [facility] [place] [address] Mass of lower lobe of right lung Social History Tobacco Use Types Packs/Day [...] as of this encounter Progress Notes * Román Valdivia MD - 06/21/2021 12:21 PM EDT I spoke to Mr. Pelayo regarding the results of his bedside FNA, which unfortunately, was non-diagnostic. I have placed an order for an urgent IR biopsy and have also placed a referral to medical oncology and radiation oncology. documented in this encounter Plan of Treatment Upcoming Encounters Date Type Department Care Team (Late st Contact Info) Description 09/22/2023 2:30 PM EDT Office Visit Hematology/Oncology at [address] [phone] Cody Frazier MD [facility] DR [place] [address] Scheduled Referrals Name Type Priority Associated Diagnoses Order Schedule Referral to Hematology and Oncology Outpatient Referral Routine Mass of lower lobe of right lung Ordered: 06/21/2021 Referral to Radiation Oncology Outpatient Referral Routine Mass of lower lobe of right lung Ordered: 06/21/2021 documented as of this encounter Results * IR All Biopsy Procedures (06/27/2021 9:48 AM EDT) Anatomical Region Laterality Modality X-Ray Angiograph y Narrative 06/27/2021 9:53 AM EDT IR PROCEDURE NOTE ?? Procedure: Ultrasound guided right posterior chest wall biopsy. ?? Indication for Procedure: Per Alexis Medina??is a 50 y.o.??male??presenting to IR for??right [...] by the IR Nurse.?? Román Valdivia MD [facility] IR ORDERABL ES documented in this encounter Visit Diagnoses Diagnosis Mass of lower lobe of right lung Swelling, mass, or lump in chest Mass of lower lobe of right lung Swelling, mass, or lump in chest Lung mass Swelling, mass, or lump in chest documented in this encounter Care Teams Enrolled Nurse Relationship Specialty Start Date End Date Arias Mast DNP PCP - General Family Medicine 02/14/21 04/02/22 documented as of this encounter
--- OUTSIDE RECORDS SUMMARY | 2023-09-15 02:24 | XMS_ITS | Encounter Summary ---
Author Organization [facility] Address [facility] [place] [address] Care Team Providers Care Ocean Export Agent Name Role Phone Arias Mast DNP Primary Care Provider [phone] Encounter Details Date Type Department Care Team (Late st Contact Info) Description 07/12/2021 12:45 PM EDT Office Visit Radiation Oncology at [address] [phone] Dima Garcia Jr., MD [facility] [place] [address] Malignant neoplasm of lower lobe, [...] Sign Reading Time Taken Comments Blood Pressure 113/81 07/12/2021 12:00 PM EDT Pulse 96 07/12/2021 12:00 PM EDT Temperature 37 ??C (98.6 ??F) 07/12/2021 12:00 PM EDT Respiratory Rate 16 07/12/2021 12:00 PM EDT Oxygen Saturation 100% 07/12/2021 12:00 PM EDT Inhaled Oxygen Concentration - - Weight 63.2 kg (139 lb 6.4 oz) 07/12/2021 12:00 PM EDT Height - - Body Mass Index 20 06/19/2021 12:59 PM EDT documented in this encounter Progress Notes * Dima Garcia Jr., MD - 07/12/2021 12:45 PM EDTSummary: OTV Images from the original note were not included. [facility] Medicine Radiation Oncology Radiation Oncology On-treatment Visit Note Patient ID Patient name: Alexis Pelayo Date of : 1970 Referring: Dr Daniel Ross PCP: Arias Mast APRN Chief complaint: St IV NSCLC Treatment Details Intent: Palliation (of painful chest wall mass) Concurrent Therapy: None Modality: 3DCRT Treatment Site RT posterior chest wall Prescribed Dose 30 Gy in 10 fractions Current Dose: 15 Gy in 5 fractionS Vehicle Check In Clerk [place] from Current Plan (minimum 30 Gy isodose volume shown): Interval Clinical Course General: No changes since last seen. Started today. Pain: Chest: Pain score today is 4/10 in his chest wall. He is currently taking MSContin 30mg BID and MSIR 15mg 0-2x/day. Also taking tylenol 3x/day and Alleve 2x/day Stable TRAORE; using Alberteol, Advair, Spiriva [...] confined to bed or chair Medications Medications 07/12/21 1255 Medication Sig Taking? acetaminophen (Tylenol) 500 mg [...] 18 mcg into the lungs daily. Yes Exam General: VSigns: Appears well, in no distress. More comfortable than last week. See nursing note Imaging/Labs Interval setup imaging has been checked and approved. See Aria for details. Impression/Plan Tolerance to radiotherapy: Tolerating as anticipated. Continue as planned. Pain: Improved; will continue meds Followup: RTC for on-treatment assessment next week. No orders of the defined types were placed in this encounter. Dima Garcia Jr, MD Prof. & Chief, Radiation Oncology documented in this encounter Plan of Treatment Upcoming Encounters Date Type Department Care Team (Late st Contact Info) Description 09/22/2023 2:30 PM EDT Office Visit Hematology/Oncology at [address] [phone] Cody Frazier MD [facility] DR [place] [address] documented as of this encounter Visit Diagnoses Diagnosis Malignant neoplasm of lower lobe, right bronchus or lung documented in this encounter Care Teams Ocean Export Agent Relationship Specialty Start Date End Date Arias Mast DNP PCP - General Family Medicine 02/14/21 04/02/22 documented as of this encounter
--- OUTSIDE RECORDS SUMMARY | 2023-09-15 02:24 | XMS_ITS | Encounter Summary ---
Author Organization [facility] Address [facility] [address] Care Team Providers Care Textile Machinery Instructor Name Role Phone Arias Mast DNP Primary Care Provider [phone] Encounter Details Date Type Department Care Team (Latest Contact Info) Description 06/27/2021 3:30 PM EDT Ancillary Procedure Radiation Oncology at [address] [phone] Christopher Alva MD [address] [place] [address] [place] [address] Malignant neoplasm of lower lobe, [...] in a nursing home (including now)? No 02/14/2021 Sex and Gender Information Value Date Recorded Sex Assigned at Not on file Gender Identity Not on file Sexual Orientation Not on file documented as of this encounter Plan of Treatment Upcoming Encounters Date Type Department Care Team (Late st Contact Info) Description 09/22/2023 2:30 PM EDT Office Visit Hematology/Oncology at [address] [phone] Cody Frazier MD [facility] DR HEMATOLOGY [place] [address] Pending Results Name Type Priority Associated Diagnoses Date /Time Film Library Radiation Oncology Studies Imaging Storage Only Routine Malignant neoplasm of lower lobe, right bronchus or lung 06/27/2021 4:16 PM EDT documented as of this encounter Visit Diagnoses Diagnosis Malignant neoplasm of lower lobe, right bronchus or lung documented in this encounter Care Teams Textile Machinery Instructor Relationship Specialty Start Date End Date Arias Mast DNP PCP - General Family Medicine 02/14/21 04/02/22 documented as of this encounter
--- OUTSIDE RECORDS SUMMARY | 2023-09-15 02:24 | XMS_ITS | Encounter Summary ---
Author Organization [facility] Address [facility] [place] [address] Care Team Providers Care Carburetor Specialist Name Role Phone Arias Mast DNP Primary Care Provider [phone] Reason for Referral * Diagnostic Test (Routine) - Closed Specialty Diagnoses / Procedures Referred By Contac t Referred To Contact Radiology Diagnoses Lung mass Procedures MRI Brain wwo Contrast (Generic) Darin Adkins MD [facility] [address] [place] [address] Referral ID Status Reason Start Date Expiration Date V isits Requested Visits Authorized [id number] Closed Specialty Service Requested 06/04/2021 12/04/2022 1 1 Reason for Visit * Diagnostic Test (Routine) - Closed Specialty Diagnoses / Procedures Referred By Contac t Referred To Contact Radiology Diagnoses Lung mass Procedures MRI Brain wwo Contrast (Generic) Dairn Adkins MD [facility] [place] [address] [place] [address] Referral ID Status Reason Start Date Expiration Date V isits Requested Visits Authorized [id number] Closed Specialty Service Requested 06/04/2021 12/04/2022 1 1 Encounter Details Date Type Department Care Team (Latest Contact Info) Description 06/15/2021 7:51 AM EDT - 06/15/2021 9:43 AM EDT Hospital Encounter Radiology at [facility] [place] [address] BackerDarin MD [facility] [place] [address] Lung mass Discharge Disposition: Home Social History [...] 15 mg by mouth nightly. 03/22/2021 04/23/2023 omeprazole (PriLOSEC) 40 mg Capsule, Delayed Release(E.C.) Take 40 mg by mouth daily. 05/25/2021 05/22/2022 pregabalin (Lyrica) 50 mg Capsule Take by mouth nightly. 05/29/2021 10/22/2021 Advair Diskus 250-50 mcg/dose Disk with Device Inhale 250 puffs into the lungs 2 times daily. 01/23/2021 04/26/2023 documented as of this encounter Plan of Treatment Upcoming Encounters Date Type Department Care Team (Late st Contact Info) Description 09/22/2023 2:30 PM EDT Office Visit Hematology/Oncology at [address] [phone] Cody Frazier MD [facility] DR [place] [address] documented as of this encounter Procedures Procedure Name Priority Date/Time Associated Diagnosis Comments MRI BRAIN WWO CONTRAST (GENERIC) Routine 06/15/2021 9:39 AM EDT Lung mass documented in this encounter Results * MRI Brain wwo Contrast (Generic) (06/15/2021 9:39 AM EDT) Anatomical Region Laterality Modality Head Magnetic Resonan ce Impressions 06/15/2021 9:55 AM EDT No evidence of intracranial metastasis. Thank you for letting us participate in the care of this patient. ??If you are a health care provider and have any questions regarding this report, please contact the number below. ??For patients who have questions please contact the health pet care assistant that requested your imaging first. ? Narrative 06/15/2021 9:55 AM EDT EXAMINATION: MRI BRAIN WWO CONTRAST (GENERIC) CLINICAL HISTORY: Metastatic disease evaluation Enlarging RLL pleural based masses TECHNIQUE: MRI of the brain was performed before and after the intravenous administration of 14cc Dotarem. COMPARISON: None FINDINGS: There is a small nonenhancing T2 hyperintense focus in the right frontal major radiata, and a punctate left parietal subcortical T2 hyperintense focus, nonspecific. Otherwise, no abnormal brain parenchymal signal, susceptibility, enhancement or restricted diffusion. No abnormal leptomeningeal or pachymeningeal enhancement. No midline shift, mass effect, hydrocephalus or extra-axial collection. Midline structures are normal. Cerebral aqueduct and foramen magnum are patent. Expected intracranial vascular flow voids are preserved. No calvarial or skull base lesions. Mucus retention cyst in the right maxillary sinus. Procedure Note Torrie Hall MD - 06/15/2021 EXAMINATION: MRI BRAIN WWO CONTRAST (GENERIC) CLINICAL HISTORY: Metastatic disease evaluation Enlarging RLL pleural based masses TECHNIQUE: MRI of the brain was performed before and after the intravenousadministration of 14cc Dotarem. COMPARISON: None FINDINGS: There is a small nonenhancing T2 hyperintense focus in the right frontalcorona radiata, and a punctate left parietal subcortical T2 hyperintense focus, nonspecific. Otherwise, no abnormal brain parenchymal signal,susceptibility, enhancement or restricted diffusion. No abnormal leptomeningeal or pachymeningeal enhancement. No midline shift, mass effect, hydrocephalusor extra-axial collection. Midline structures are normal. Cerebral aqueductand foramen magnum are patent. Expected intracranial vascular flow voids are preserved. No calvarial or skull base lesions. Mucus retention cyst in theright maxillary sinus. IMPRESSION No evidence of intracranial metastasis. Thank you for letting us participate in the care of this patient. If youare a health care provider and have any questions regarding this report,please contact the number below. For patients who have questions please contactthe health pet care assistant that requested your imaging first. Darin Adkins MD IMG MRI ORDERABLES documented in this encounter Visit Diagnoses Diagnosis Lung mass Swelling, mass, or lump in chest documented in this encounter Administered Medications Inactive Administered Medications - up to 3 most recent administrations Medication Order MAR Action Action Date Dose Rate Site gadoterate meglumine (Dotarem) (0.5 mMol/mL) injection solution 0-100 mL 0-100 mL, Intravenous, ONCE PRN, 1 dose, Starting on Fri06/15/21 at 0853, Until Fri06/15/21 at 0915, Per Protocol, Radiology Contrast, Routine Given 06/15/2021 9:15 AM EDT 14 mLs documented in this encounter Care Teams Carburetor Specialist Relationship Specialty Start Date End Date Arias Mast DNP PCP - General Family Medicine 02/14/21 04/02/22 documented as of this encounter
--- OUTSIDE RECORDS SUMMARY | 2023-09-15 02:24 | XMS_ITS | Encounter Summary ---
Author Organization [facility] Address [facility] [place] [address] Care Team Providers Care Staff Appraiser Name Role Phone Arias Mast DNP Primary Care Provider [phone] Reason for Visit * Reason Onset Date Comments Prior Authorization 07/13/2021 Molecular ca ncer testing CPT 99745 is a covered benefit. Encounter Details Date Type Department Care Team (Late st Contact Info) Description 07/13/2021 Telephone [place] [address] Ashley Cedeño Prior Authorization (Molecular cancer testing CPT 71298 is a covered benefit. ) Social History Tobacco Use Types Packs/Day [...] slept in a fpc (including now)? No 02/14/2021 Sex and Gender Information Value Date Recorded Sex Assigned at Not on file Gender Identity Not on file Sexual Orientation Not on file documented as of this encounter Miscellaneous Notes * Telephone Encounter - Ashley Cedeño - 07/13/2021 11:21 AM EDT Molecular cancer testing: CPT 69707 is a covered benefit: I received an e-mail from Neema in [employer] ([employer] 07/10/2021) requesting coverage review for CPT 31165 which is to be done on the patient???s right lower lobe lung cancer tissue obtained on 06/27/2021, provider is Román Valdivia MD. I will e-mail Neema to let her know of approved coverage. documented in this encounter Plan of Treatment Upcoming Encounters Date Type Department Care Team (Late st Contact Info) Description 09/22/2023 2:30 PM EDT Office Visit Hematology/Oncology at [address] [phone] Cody Frazier MD [facility] DR HEMATOLOGY [place] [address] documented as of this encounter Visit Diagnoses Not on filedocumented in this encounter Care Teams Staff Appraiser Relationship Specialty Start Date End Date Arias Mast DNP PCP - General Family Medicine 02/14/21 04/02/22 documented as of this encounter
--- OUTSIDE RECORDS SUMMARY | 2023-09-15 02:24 | XMS_ITS | Encounter Summary ---
Author Organization [facility] Address [facility] [place] [address] Care Team Providers Care Insurance Representative Name Role Phone Arias Mast DNP Primary Care Provider [phone] Encounter Details Date Type Department Care Team (Late st Contact Info) Description 07/19/2021 Orders Only Hematology [place] [address] Cody Frazier MD [facility] DR HEMATOLOGY [place] [address] Social History Tobacco Use Types Packs/Day Years [...] PM EDT Office Visit Hematology/Oncology at [address] [phone] Cody Frazier MD [facility] DR HEMATOLOGY [place] [address] documented as of this encounter Visit Diagnoses Not on filedocumented in this encounter Care Teams Insurance Representative Relationship Specialty Start Date End Date Arias Mast DNP PCP - General Family Medicine 02/14/21 04/02/22 documented as of this encounter
--- OUTSIDE RECORDS SUMMARY | 2023-09-15 02:24 | XMS_ITS | Encounter Summary ---
Author Organization [facility] Address [facility] [place] [address] Care Team Providers Care Arbitrator Name Role Phone Arias Mast DNP Primary Care Provider [phone] Reason for Visit * Reason Onset Date Comments Other 07/24/2021 transportation Encounter Details Date Type Department Care Team (Late st Contact Info) Description 07/24/2021 Telephone Hematology/Oncology at [address] [phone] Lorraine Huerta, PARTS ORDER AND STOCK CLERK OFFICE OF CARE MANAGEMENT Other (transportation) Social [...] Telephone Encounter - Lorraine Huerta MSW - 07/24/2021 8:42 AM EDT Transportation Plan Review Transportation service provider: REJI @ [phone] Person coordinating transportation: Lorraine Huerta, @ [phone] Transportation request submitted to service provider: yes for 07-30-21 appts Reviewed/matched transportation request with appointment schedule: yes Patient has contact information to transportation provider: yes Actions taken today: none SW Interventions: Care Coordination Transportation resources documented in this encounter Plan of Treatment Upcoming Encounters Date Type Department Care Team (Late st Contact Info) Description 09/22/2023 2:30 PM EDT Office Visit Hematology/Oncology at [address] [phone] Cody Frazier MD [facility] [place] [address] documented as of this encounter Visit Diagnoses Not on filedocumented in this encounter Care Teams Arbitrator Relationship Specialty Start Date End Date Arias Mast DNP PCP - General Family Medicine 02/14/21 04/02/22 documented as of this encounter
--- OUTSIDE RECORDS SUMMARY | 2023-09-15 02:24 | XMS_ITS | Encounter Summary ---
Author Organization [facility] Address [facility] [place] [address] Care Team Providers Care Wharf Worker Name Role Phone Arias Mast DNP Primary Care Provider [phone] Encounter Details Date Type Department Care Team (Late st Contact Info) Description 07/30/2021 Notes Only Hematology/Oncology at [address] [phone] Lorraine Huerta, MANAGER RESPIRATORY OFFICE OF CARE MANAGEMENT Social History Tobacco [...] Progress Notes * Lorraine Huerta MSW - 07/30/2021 11:51 AM EDT Follow up with pt during his infusion visit today. Pt indicated the ride arranged with [facility] worked well. Explained MANAGER RESPIRATORY messaged [facility] for the rides he will need for his appointments on 08-06-21; 08-14-21 and 08-20-21. We will discuss at that time if he wants to take over scheduling his own rides at that point. Ride request sent to [facility] per appointment desk as follows - Friday08-06-21 [facility] @ 8 [facility] @ 9 Home @ 10 Friday08-14-21 [facility] @ 7 [facility] @ 8 Home @ 11:15 Friday08-20-21 [facility] @ [facility] @ 10 Home @ 2 Pt indicated his sister from [place] is visiting. She is helping him with some chores. He has been pretty tired overall but managing at home. Pt did not identify any new needs. Reminded him of MANAGER RESPIRATORY availability and contact information. Will continue to follow for support and resources. Care Coordination Transportation resources documented in this encounter Plan of Treatment Upcoming Encounters Date Type Department Care Team (Late st Contact Info) Description 09/22/2023 2:30 PM EDT Office Visit Hematology/Oncology at [address] [phone] Cody Frazier MD [facility] DR HEMATOLOGY [place] [address] documented as of this encounter Visit Diagnoses Not on filedocumented in this encounter Care Teams Wharf Worker Relationship Specialty Start Date End Date Arias Mast DNP PCP - General Family Medicine 02/14/21 04/02/22 documented as of this encounter
--- OUTSIDE RECORDS SUMMARY | 2023-09-15 02:24 | XMS_ITS | Encounter Summary ---
Author Organization [facility] Address [facility] [place] [address] Care Team Providers Care Firearms Expert Name Role Phone Arias Mast DNP Primary Care Provider [phone] Encounter Details Date Type Department Care Team (Latest Contact Info) Description 06/26/2021 Multidisciplinary Ca re [place] [phone] Mehrdad Hollingsworth APRN [facility] [place] [address] Lung mass Social History Tobacco Use Types [...] as of this encounter Progress Notes * Mehrdad Hollingsworth APRN - 06/26/2021 9:14 AM EDT Thoracic - Tumor Board Note Date Presented: 06/26/2021 Presenting Physician: Mehrdad Hollingsworth APRN Diagnosis/Tumor Site: Right lower lobe lung mass Is this Metastatic Disease: Unknown Synopsis of History/HPI: Mr. Pelayo is a 50 yr gentleman with a history of emphysema and 35 pack year smoking history whom present to to interventional pulmonology for a RLL PET avid pleural based mass eroding through the chest well measuring 93 mm x 47 mm. PET scan also noted to have FDG avid lympnodes FNA of RLL lung mass performed during clinic visit and was non diagnostic. He is scheduled for a core biopsy in IR on 06/27/2021. Imaging: CT chest and PET Pathology/Histology: FNA of RLL mass, core biopsy RLL mass scheduled 06/27/2021 Stage: N/A Clinical Data (Exams, Labs, etc.): see medical record Molecular Pathology Results: N/A Clinical Trial Availability: Not discussed Options Discussed: This could represent an infection as well as a malignancy. Recommend that culture be sent in addition to cytology. If his core biopsy is non diagnostic then recommend referral to thoracic surgery for an incisional biopsy. Recommendations: Cultures to be sent with biopsy, if non diagnostic core biopsy then refer to thoracic surgery for incisional biopsy DISCLAIMER: The patient was discussed and the tumor board made recommendations but it is ultimatelyup to the treatment provider(s) and the patient to determine the patient???s care. Mehrdad Hollingsworth APRN, 06/26/2021, 10:52 AM Interventional Pulmonology Section of Pulmonary & Critical Care Pager: [phone] documented in this encounter Miscellaneous Notes * Addendum Note - Mehrdad Hollingsworth APRN - 06/26/2021 9:14 AM EDTAddended by: MEHRDAD HOLLINGSWORTH on: 06/26/2021 11:12 AM Modules accepted: Orders * Addendum Note - Mehrdad Hollingsworth APRN - 06/26/2021 9:14 AM EDTAddended by: MEHRDAD HOLLINGSWORTH on: 06/27/2021 09:16 AM Modules accepted: Orders documented in this encounter Plan of Treatment Upcoming Encounters Date Type Department Care Team (Late st Contact Info) Description 09/22/2023 2:30 PM EDT Office Visit Hematology/Oncology at [address] [phone] Cody Frazier MD [facility] DR HEMATOLOGY [place] [address] Scheduled Orders Name Type Priority Associated Diagnoses Orde r Schedule Fungus Culture & Calc Stain Bronchial Biopsy Microbiology Routine Lung mass Ordered: 06/27/2021 documented as of this encounter Results * Tissue culture Lung (06/27/2021 9:35 AM EDT) Tissue Culture No growth [facility] Gram Stain No Neutrophils No microorganisms seen. [facility] Lung 06/27/2021 9:35 AM EDT 06/27/2021 10:41 AM EDT Comment:Concern for metastat ic lung malignancy, sarcoma, pleural based tumor, infection Narrative Resulting Agency Comment Spec In Lab Mehrdad Hollingsworth APRN MICROBIOLOGY - GEN ERAL ORDERABLES [facility] [place] [address] documented in this encounter Visit Diagnoses Diagnosis Lung mass Swelling, mass, or lump in chest documented in this encounter Care Teams Firearms Expert Relationship Specialty Start Date End Date Arias Mast DNP PCP - General Family Medicine 02/14/21 04/02/22 documented as of this encounter
--- OUTSIDE RECORDS SUMMARY | 2023-09-15 02:25 | XMS_ITS | Encounter Summary ---
Author Organization [facility] Address [facility] [place] [address] Care Team Providers Care Fruit Raiser Name Role Phone Arias Mast [facility] Primary Care Provider [phone] Reason for Referral * Diagnostic Test (Emergency) - Closed Specialty Diagnoses / Procedures Referred By Contac t Referred To Contact Radiology Diagnoses Lung mass Procedures NM PET CT Skull Base to Mid-thigh Darin Adkins MD [facility] [place] [address] [place] [address] Referral ID Status Reason Start Date Expiration Date V isits Requested Visits Authorized [id number] Closed Specialty Service Requested 06/04/2021 12/04/2022 1 1 Reason for Visit * Diagnostic Test (Emergency) - Closed Specialty Diagnoses / Procedures Referred By Contac t Referred To Contact Radiology Diagnoses Lung mass Procedures NM PET CT Skull Base to Mid-thigh Darin Adkins MD [facility] [place] [address] [place] [address] Referral ID Status Reason Start Date Expiration Date V isits Requested Visits Authorized [id number] Closed Specialty Service Requested 06/04/2021 12/04/2022 1 1 Encounter Details Date Type Department Care Team (Latest Contact Info) Description 06/15/2021 9:44 AM EDT Hospital Encounter [place] [phone] Darin Adkins MD [facility] [place] [address] Lung mass Discharge Disposition: Home Social History [...] in a long term (including now)? No 02/14/2021 Sex and Gender [...] 2:30 PM EDT Office Visit Hematology/Oncology at [address] [phone] Cody Frazier MD [facility] DR [place] [address] documented as of this encounter Procedures Procedure Name Priority Date/Time Associated Diagnosis Comments NM PET CT SKULL BASE TO MID-THIGH ([facility]) STAT 06/15/2021 12:51 PM EDT Lung mass documented in this encounter Results * NM PET CT Skull Base to Mid-thigh (06/15/2021 12:51 PM EDT) Anatomical Region Laterality Modality Positron Emissio n Tomography (PET) Impressions 06/15/2021 2:33 PM EDT 1. ??FDG avid right lower lobe pleural-based mass with destruction of the posterolateral right ninth rib and invasion into the posterior chest wall, with extension versus adjacent smaller pleural-based FDG avid lesion, highly suspicious for a primary pulmonary/pleural malignancy (mesothelioma). 2. ??Small mildly FDG avid right pleural effusion, suspicious for malignant pleural effusion. 3. ??FDG avid mediastinal, right retrocrural, and right hilar lymph nodes, suspicious for madina metastases. 4. ??Small FDG avid left cervical lymph nodes, indeterminate for reactive versus madina metastases. 5. ??Diffuse increased marrow activity throughout the axial and visualized proximal appendicular skeleton, raises question of a G-CSF producing malignancy. 6. ??Mildly displaced right posterior 11th rib suspected pathologic fracture. 7. ??Indeterminate ill-defined FDG avid subsolid inferior left upper lobe nodular opacity, may be inflammatory in etiology although a synchronous primary lung malignancy cannot be excluded. Attention on follow-up. 8. ??Focal wall thickening of a left apical bulla with associated minimal FDG avidity, favored likely inflammatory. Continued attention on follow-up. 9. ??Small FDG avid left thyroid nodule, representing a benign versus malignant thyroid neoplasm. Suggest further evaluation by ultrasound. 10. ??Nonspecific small area of FDG avid dermal thickening in the left upper back and FDG avid small periscapular subcutaneous nodule, possibly inflammatory in etiology. Please correlate clinically/physical exam. Thank you for letting us participate in the care of this patient. ??If you are a health care provider and have any questions regarding this report, please contact the number below. ??For patients who have questions please contact the health rn critical care that requested your imaging first. ? Electronically signed by: Bea Roper MD, [facility] ([phone]), at 06/15/2021 2:33 PM Narrative 06/15/2021 2:33 PM EDT EXAMINATION: NM PET CT STANDARD SKULL BASE TO MID-THIGH CLINICAL HISTORY: Metastatic disease evaluation - Include more detail below Enlarging RLL pleural based lesions suspicious for malignancy TECHNIQUE: Following IV injection of 12-ucxoze-0-deoxyglucose (FDG) a standard uptake of approximately 60 minutes, a noncontrast CT scan followed by a PET scan were acquired from the base of the skull to mid thighs. The noncontrast CT was used for anatomic localization and photon attenuation correction of the PET scan. No oral contrast was administered. Blood glucose level: 110 (mg/dL) FDG dose: 10.4 mCi COMPARISON: Outside institution contrast-enhanced chest CT 05/24/2021 MRI brain from earlier same day [facility], 06/15/2021 FINDINGS: HEAD/NECK: A few scattered small FDG avid lymph nodes throughout the left neck, for example axial images 14, 15, and 20, activity greater than background liver and mediastinal blood pool. Additional small FDG avid focus in the left lower neck (axial image 38) which appears to localize to the superior pole of the left thyroid lobe. Incompletely imaged near complete opacification of the visualized right maxillary sinus. CHEST: Highly FDG avid lobulated soft tissue pleural-based mass in the posterior right lower lobe, with near complete destruction of the right ninth posterolateral rib, and extending into the posterior chest wall. Axially, the mass measures approximately 93 x 47 mm (axial CT image 107). Additional pleural-based lobulated extension anterolateral versus an adjacent separate highly FDG avid pleural-based soft tissue lobulated lesion measuring up to 22 mm in greatest axial (axial CT image 107). CT visualized remodeling of the right posterolateral 8th [id number] ribs noted. FDG avid right posterior 11th mildly displaced rib fracture, suspected pathologic in etiology. Small mildly FDG avid right pleural effusion. Small FDG avid right paratracheal and subcarinal lymph nodes, FDG avidity greater than that of background mediastinal blood pool. Additional small FDG avid right retrocrural lymph node (axial image 90) Additional FDG avid right hilar lymphadenopathy. Ill-defined FDG avid subsolid opacity in the inferior left upper lobe, measuring approximately 10 mm, difficult to measure accurately secondary to configuration (axial image 80), FDG avidity greater than background mediastinal blood pool. FDG avid focus in the left apex corresponding to a focal area of apparent wall thickening of a bulla, activity below that of mediastinal blood pool (axial images 59-60). Small bilateral mildly FDG avid axillary lymph nodes, favored likely reactive. Focal dermal FDG avid thickening in the posterior left upper chest. Small FDG avid subcutaneous nodule overlying the left teres minor musculature (axial image 66). CT redemonstrated bilateral emphysematous changes, with extensive bullous formation predominantly involving the bilateral upper lobes and apices, coronary artery calcifications. ABDOMEN/PELVIS: Small bilateral FDG avid inguinal lymph nodes, activity similar to that of blood pool, and favored likely reactive. Normal activity in all other soft tissue regions. Incidentally noted is excreted contrast within the urinary bladder from earlier same day brain MRI. Small splenule. Scattered descending and sigmoid diverticula without acuity. Aortobiiliac calcified atherosclerosis. SKELETON/EXTREMITIES: In addition to the aforementioned findings of the right lower ribs described under the chest section, there is diffuse increased marrow activity throughout the axial and visualized appendicular skeleton. Procedure Note Bea Roper MD - 06/15/2021 EXAMINATION: NM PET CT STANDARD SKULL BASE TO MID-THIGH CLINICAL HISTORY: Metastatic disease evaluation - Include more detailbelow Enlarging RLL pleural based lesions suspicious for malignancy TECHNIQUE: Following IV injection of 74-nykjdm-9-deoxyglucose (FDG) astandard uptake of approximately 60 minutes, a noncontrast CT scan followed by aPET scan were acquired from the base of the skull to mid thighs. The noncontrast CTwas used for anatomic localization and photon attenuation correction of thePET scan. No oral contrast was administered. Blood glucose level: 110 (mg/dL) FDG dose: 10.4 mCi COMPARISON: Outside institution contrast-enhanced chest CT 05/24/2021 MRI brain from earlier same day [facility], 06/15/2021 FINDINGS: HEAD/NECK: A few scattered small FDG avid lymph nodes throughout the left neck, forexample axial images 14, 15, and 20, activity greater than background liver and mediastinal blood pool. Additional small FDG avid focus in the left lowerneck (axial image 38) which appears to localize to the superior pole of theleft thyroid lobe. Incompletely imaged near complete opacification of the visualized right maxillary sinus. CHEST: Highly FDG avid lobulated soft tissue pleural-based mass in the posteriorright lower lobe, with near complete destruction of the right ninthposterolateral rib, and extending into the posterior chest wall. Axially, the massmeasures approximately 93 x 47 mm (axial CT image 107). Additional pleural-based lobulated extension anterolateral versus an adjacent separate highly FDGavid pleural-based soft tissue lobulated lesion measuring up to 22 mm ingreatest axial (axial CT image 107). CT visualized remodeling of the rightposterolateral 8th [id number] ribs noted. FDG avid right posterior 11th mildly displacedrib fracture, suspected pathologic in etiology. Small mildly FDG avid right pleural effusion. Small FDG avid right paratracheal and subcarinal lymph nodes, FDGavidity greater than that of background mediastinal blood pool. Additional smallFDG avid right retrocrural lymph node (axial image 90) Additional FDG avidright hilar lymphadenopathy. Ill-defined FDG avid subsolid opacity in the inferior left upper lobe,measuring approximately 10 mm, difficult to measure accurately secondary toconfiguration (axial image 80), FDG avidity greater than background mediastinal bloodpool. FDG avid focus in the left apex corresponding to a focal area of apparentwall thickening of a bulla, activity below that of mediastinal blood pool(axial images 59-60). Small bilateral mildly FDG avid axillary lymph nodes, favored likelyreactive. Focal dermal FDG avid thickening in the posterior left upper chest. Small FDG avid subcutaneous nodule overlying the left teres minormusculature (axial image 66). CT redemonstrated bilateral emphysematous changes, with extensivebullous formation predominantly involving the bilateral upper lobes and apices,coronary artery calcifications. ABDOMEN/PELVIS: Small bilateral FDG avid inguinal lymph nodes, activity similar to that ofblood pool, and favored likely reactive. Normal activity in all other softtissue regions. Incidentally noted is excreted contrast within the urinary bladder fromearlier same day brain MRI. Small splenule. Scattered descending and sigmoiddiverticula without acuity. Aortobiiliac calcified atherosclerosis. SKELETON/EXTREMITIES: In addition to the aforementioned findings of the right lower ribsdescribed under the chest section, there is diffuse increased marrow activitythroughout the axial and visualized appendicular skeleton. IMPRESSION 1. FDG avid right lower lobe pleural-based mass with destruction of the posterolateral right ninth rib and invasion into the posterior chest wall,with extension versus adjacent smaller pleural-based FDG avid lesion, highly suspicious for a primary pulmonary/pleural malignancy (mesothelioma). 2. Small mildly FDG avid right pleural effusion, suspicious formalignant pleural effusion. 3. FDG avid mediastinal, right retrocrural, and right hilar lymphnodes, suspicious for madina metastases. 4. Small FDG avid left cervical lymph nodes, indeterminate for reactiveversus madina metastases. 5. Diffuse increased marrow activity throughout the axial andvisualized proximal appendicular skeleton, raises question of a G-CSF producingmalignancy. 6. Mildly displaced right posterior 11th rib suspected pathologicfracture. 7. Indeterminate ill-defined FDG avid subsolid inferior left upper lobenodular opacity, may be inflammatory in etiology although a synchronous primarylung malignancy cannot be excluded. Attention on follow-up. 8. Focal wall thickening of a left apical bulla with associated minimalFDG avidity, favored likely inflammatory. Continued attention on follow-up. 9. Small FDG avid left thyroid nodule, representing a benign versusmalignant thyroid neoplasm. Suggest further evaluation by ultrasound. 10. Nonspecific small area of FDG avid dermal thickening in the leftupper back and FDG avid small periscapular subcutaneous nodule, possibly inflammatoryin etiology. Please correlate clinically/physical exam. Thank you for letting us participate in the care of this patient. If youare a health care provider and have any questions regarding this report,please contact the number below. For patients who have questions please contactthe health rn critical care that requested your imaging first. Electronically signed by: Bea Roper MD, [facility]([phone]), at 06/15/2021 2:33 PM Darin Adkins MD IMG PET ORDERABLES documented in this encounter Visit Diagnoses Diagnosis Lung mass Swelling, mass, or lump in chest documented in this encounter Administered Medications Inactive Administered Medications - up to 3 most recent administrations Medication Order MAR Action Action Date Dose Rate Site fludeoxyglucose (F-18) FDG injection 0-20 mCi 0-20 mCi, Intravenous, ONCE PRN, 1 dose, Starting on Fri06/15/21 at 1147, Until Fri06/15/21 at 1133, Per Protocol, Radiology Contrast, Routine Given 06/15/2021 11:33 AM EDT 10.4 mCi Right Arm documented in this encounter Care Teams Fruit Raiser Relationship Specialty Start Date End Date Arias Mast DNP PCP - General Family Medicine 02/14/21 04/02/22 documented as of this encounter
--- OUTSIDE RECORDS SUMMARY | 2023-09-15 02:25 | XMS_ITS | Encounter Summary ---
Author Organization [facility] [place] [address] Care Team Providers Care Section 8 Property Manager Name Role Phone Arias Mast DNP Primary Care Provider [phone] Reason for Referral * Consultation (Urgent) - Closed Specialty Diagnoses / Procedures Referred By Contshayla t Referred To Contact Pulmonology Diagnoses Right lower lobe lung mass COPD (chronic obstructive pulmonary disease) Arias Mast DNP [address] [place] [address] [facility] Pulmonology [address] [place] [phone] Referral ID Status Reason Start Date Expiration Date V isits Requested Visits Authorized [id number] Closed Consult, Test & Treat PCP Updated and/or Approved 05/29/2021 05/29/2022 6 6 Encounter Details Date Type Department Care Team ([facility] st Contact Info) Description 05/29/2021 Transcribe Orders eDH Incoming Referrals [phone] Arias Mast DNP [address] [place], [place] [address] Chronic obstructive pulmonary disease, unspecified COPD type; Right lower lobe lung mass Social History Tobacco Use Types Packs/Day Years Used Date Smoking Tobacco: Every Day Cigarettes Smokeless Tobacco: Never Comments:10 per day Overall Financial Resource Strain (CARDIA) Angel r Date Recorded How hard is it [...] PM EDT Office Visit Hematology/Oncology at [address] [phone] Cody Frazier MD [facility] [address] [place] [address] Scheduled Referrals Name Type Priority Associated Diagnoses Orde r Schedule Referral to Pulmonology Outpatient Referral Routine Chronic obstructive pulmonary disease, unspecified COPD type Right lower lobe lung mass Ordered: 05/29/2021 documented as of this encounter Visit Diagnoses Diagnosis Chronic obstructive pulmonary disease, unspecified COPD type Right lower lobe lung mass Swelling, mass, or lump in chest documented in this encounter Care Teams Section 8 Property Manager Relationship Specialty Start Date End Date Arias Mast DNP PCP - General Family Medicine 02/14/21 04/02/22 documented as of this encounter
--- OUTSIDE RECORDS SUMMARY | 2023-09-15 02:25 | XMS_ITS | Encounter Summary ---
Author Organization [facility] Address [facility] [place] [address] Care Team Providers Care Investigator Internal Affairs Name Role Phone Arias Mast DNP Primary Care Provider [phone] Reason for Referral * Diagnostic Test (Routine) - Closed Specialty Diagnoses / Procedures Referred By Contac t Referred To Contact Radiology Diagnoses Lung mass Procedures MRI Brain wwo Contrast (Generic) Darin Adkins MD [facility] [place] [address] [facility] [place] [address] Referral ID Status Reason Start Date Expiration Date V isits Requested Visits Authorized [id number] Closed Specialty Service Requested 06/04/2021 12/04/2022 1 1 * Diagnostic Test (Emergency) - Closed Specialty Diagnoses / Procedures Referred By Contac t Referred To Contact Radiology Diagnoses Lung mass Procedures NM PET CT Skull Base to Mid-thigh Darin Adkins MD [facility] [place] [address] [facility] [place] [address] Referral ID Status Reason Start Date Expiration Date V isits Requested Visits Authorized [id number] Closed Specialty Service Requested 06/04/2021 12/04/2022 1 1 Encounter Details Date Type Department Care Team ([facility] st Contact Info) Description 06/04/2021 Orders [place] [address] Darin Adkins MD [facility] [place] [address] Lung mass Social History Tobacco Use Types [...] PM EDT Office Visit Hematology/Oncology at [address] [phone] Cody Frazier MD [facility] DR [place]AT[place] [address] documented as of this encounter Results * NM PET CT [...] who have questions please contact the health reservoir caretaker that requested your imaging first. ? Electronically signed by: Bea Roper MD, [facility] ([phone]), at 06/15/2021 2:33 PM Narrative 06/15/2021 2:33 PM EDT EXAMINATION: NM PET CT STANDARD SKULL BASE TO MID-THIGH CLINICAL HISTORY: Metastatic disease evaluation - Include more detail below Enlarging RLL pleural based lesions suspicious for malignancy TECHNIQUE: Following IV injection of 68-niahgd-0-deoxyglucose (FDG) a standard uptake of approximately 60 [...] 05/24/2021 MRI brain from earlier same [place] [facility] FINDINGS: HEAD/NECK: A few scattered small [...] visualized remodeling of the right posterolateral 8th [id number] ribs noted. FDG avid right posterior 11th [...] for malignancy TECHNIQUE: Following IV injection of 77-rzpvdp-6-deoxyglucose (FDG) astandard uptake of approximately 60 minutes, [...] 05/24/2021 MRI brain from earlier same day [facility]2021 FINDINGS: HEAD/NECK: A few scattered small [...] CT visualized remodeling of the rightposterolateral 8th [id number] ribs noted. FDG avid right posterior 11th [...] patients who have questions please contactthe health reservoir caretaker that requested your imaging first. Electronically signed by: Bea Roper MD, [facility]([phone]), at 06/15/2021 2:33 PM Darin Adkins MD IMG PET ORDERABLES * MRI Brain wwo Contrast (Generic) (06/15/2021 [...] who have questions please contact the health reservoir caretaker that requested your imaging first. ? Electronically signed by: Torrie Hall MD, [facility] ([phone]), at 06/15/2021 9:55 AM Narrative 06/15/2021 9:55 AM EDT EXAMINATION: MRI [...] patients who have questions please contactthe health reservoir caretaker that requested your imaging first. Electronically signed by: Torrie Hall MD, [facility]([phone]), at 06/15/2021 9:55 AM Darin Adkins MD IMG MRI ORDERABLES documented in this encounter Visit Diagnoses Diagnosis Lung mass Swelling, mass, or lump in chest Lung mass Swelling, mass, or lump in chest Lung mass Swelling, mass, or lump in chest documented in this encounter Care Teams Investigator Internal Affairs Relationship Specialty Start Date End Date Arias Mast DNP PCP - General Family Medicine 02/14/21 04/02/22 documented as of this encounter
--- OUTSIDE RECORDS SUMMARY | 2023-09-15 02:25 | XMS_ITS | Encounter Summary ---
Author Organization [facility] Address [facility] [place] [address] Care Team Providers Care Imaging Aide Name Role Phone Unavailable Primary Care Provider Unavailabl e Encounter Details Date Type Department Care Team (Late Contact Info) Description 01/23/2021 Ancillary Procedure [place] [address] Arias Mast, DNP [address] [place], [place] [address] Social History Tobacco Use Types Packs/Day Years Used Date Smoking Tobacco: Never Assessed Sex and Gender Information Value Date Recorded Sex Assigned at Not on file Gender Identity Not on file Sexual Orientation Not on file documented as of this encounter Plan of Treatment Upcoming Encounters Date Type Department Care Team (Late Contact Info) Description 09/22/2023 2:30 PM EDT Office Visit Hematology/Oncology at [address] [phone] Cody Frazier MD [facility] DR HEMATOLOGY [place] [address] documented as of this encounter Procedures Procedure Name Priority Date/Time Associated Diagnosis Comments FILM LIBRARY STORAGE ONLY CT CHEST Routine 01/23/2021 12:00 AM EST documented in this encounter Results * Film Library- Storage Only CT Chest (01/23/2021 12:00 AM EST) Narrative [facility] - 02/15/2021 11:10 AM EST This exam is auto-finalizing. It's purpose is for storage only. Arias Mast DNP IMG FILM LIBRARY OR DERABLES [place], [place] documented in this encounter Visit Diagnoses Not on filedocumented in this encounter
--- OUTSIDE RECORDS SUMMARY | 2023-09-15 02:25 | XMS_ITS | Encounter Summary ---
Author Organization [facility] Address [facility] [place] [address] Care Team Providers Care Clinical Therapist Name Role Phone Arias Mast DNP Primary Care Provider [phone] Reason for Visit * Diagnostic Test (Emergency) - Closed Specialty Diagnoses / Procedures Referred By Kristan merlos Referred To Contact Radiology Diagnoses Lung mass Procedures NM PET CT Skull Base to Mid-thigh Darin Adkins MD [facility] [place] [address] [facility] [place] [address] Referral ID Status Reason Start Date Expiration Date V isits Requested Visits Authorized [id number] Closed Specialty Service Requested 06/04/2021 12/04/2022 1 1 Encounter Details Date Type Department Care Team (Latest Contact Info) Description 06/15/2021 9:45 AM EDT - 06/15/2021 11:59 PM EDT Hospital Encounter [place] [address] Darin Adkins MD [facility] [place] [address] Discharge Disposition: Home Social History Tobacco Use [...] PM EDT Office Visit Hematology/Oncology at [address] [phone] Cody Frazier MD [facility] [place] [address] documented as of this encounter Procedures Procedure [...] who have questions please contact the health clinical care manager that requested your imaging first. ? Narrative 06/15/2021 2:33 PM EDT EXAMINATION: NM PET CT STANDARD SKULL BASE TO MID-THIGH CLINICAL HISTORY: Metastatic disease evaluation - Include more detail below Enlarging RLL pleural based lesions suspicious for malignancy TECHNIQUE: Following IV injection of 21-ijjrud-6-deoxyglucose (FDG) a standard uptake of approximately 60 [...] 05/24/2021 MRI brain from earlier same day [facility], 06/15/2021 FINDINGS: HEAD/NECK: A few scattered small [...] visualized remodeling of the right posterolateral 8th [id number] ribs noted. FDG avid right posterior 11th [...] for malignancy TECHNIQUE: Following IV injection of 31-ryfcci-4-deoxyglucose (FDG) astandard uptake of approximately 60 minutes, [...] 05/24/2021 MRI brain from earlier same day [facility], 06/15/2021 FINDINGS: HEAD/NECK: A few scattered small [...] CT visualized remodeling of the rightposterolateral 8th [id number] ribs noted. FDG avid right posterior 11th [...] patients who have questions please contactthe health clinical care manager that requested your imaging first. Darin Adkins MD IMG PET ORDERABLES documented in this encounter Visit Diagnoses Not on filedocumented in this encounter Care Teams Clinical Therapist Relationship Specialty Start Date End Date Arias Mast DNP PCP - General Family Medicine 02/14/21 04/02/22 documented as of this encounter
--- OUTSIDE RECORDS SUMMARY | 2023-09-15 02:25 | XMS_ITS | Encounter Summary ---
Author Organization [facility] Address [address] [place] [address] Care Team Providers Care Infection Control Coordinator Name Role Phone Unavailable Primary Care Provider Unavailabl e Encounter Details Date Type Department Care Team (Late st Contact Info) Description 01/03/2023 Lab Requisition [facility] Pathology & Laboratory Medicine - [facility] [address] [place] [address] Outr Resulting Lab, Provider Social History Tobacco Use Types Packs/Day Years Used Date Smoking Tobacco: Never Assessed Sex and Gender Information Value Date Recorded Sex Assigned at Not on file Gender Identity Not on file Sexual Orientation Not on file documented as of this encounter Plan of Treatment Not on file documented as of this encounter Procedures Procedure Name Priority Date/Time Associated Diagnosis Comments LEGIONELLA ANTIGEN DETECTION, URINE Routine 01/02/2023 15:00 EST documented in this encounter Results * LEGIONELLA ANTIGEN DETECTION, URINE (01/02/2023 15:00 EST) Legionella Antigen Detection Negative Negative 01/03/2023 19:02 EST [facility] Urine URINE / Unknown 01/02/2023 1 5:00 EST 01/03/2023 17:42 EST Provider Outr Resulting Lab MICROBIOLOGY - GENERAL ORDERABLES [facility] [address] [place] [address] documented in this encounter Visit Diagnoses Not on filedocumented in this encounter
--- OUTSIDE RECORDS SUMMARY | 2023-09-15 02:25 | XMS_ITS | Encounter Summary ---
Author Organization [facility]ly [facility], [facility] Address [facility] [place] [address] Care Team Providers Care Receiving Barn Custodian Name Role Phone KeziaArias araujo Andrew KOENIG Primary Care Provider [phone] Reason for Visit * Reason Comments Advice Only * Consultation (Routine) - Closed Specialty Diagnoses / Procedures Referred By Kristan merlos Referred To Contact Hematology and Oncology Diagnoses Essential (hemorrhagic) thrombocythemia Arias Mast, ARYA [address] [place] [address] [facility] Hem Onc [address] [place] [address] Referral ID Status Reason Start Date Expiration Date V isits Requested Visits Authorized [id number] Closed Consult, Test & Treat Connection Center PCP Updated and/or Approved 01/23/2021 07/24/2021 6 6 Encounter Details Date Type Department Care Team (Late st Contact Info) Description 02/14/2021 1:00 PM EST Office Visit Hematology [place] [address] Ginna Guillen MD [facility] [address] [place] [address] Marce Ward MD [facility] HEMATOLOGY/[place] [address] Leukocytosis, unspecified type; Thrombocytosis; Hypertension, unspecified type; Chronic thoracic back pain, unspecified back pain laterality Social History Tobacco Use Types Packs/Day Years [...] Sign Reading Time Taken Comments Blood Pressure 180/108 02/14/2021 12:57 PM EST Pulse 95 02/14/2021 12:57 PM EST Temperature 37 ??C (98.6 ??F) 02/14/2021 12:57 PM EST Respiratory Rate 18 02/14/2021 12:57 PM EST Oxygen Saturation 96% 02/14/2021 12:57 PM EST Inhaled Oxygen Concentration - - Weight 70.3 kg (155 lb) 02/14/2021 12:57 PM EST Height 178.5 cm (5' 10.28) 02/14/2021 12:57 PM EST Body Mass Index 22.07 02/14/2021 12:57 PM EST documented in this encounter Progress Notes * Ginna Wallis MD - 02/14/2021 1:00 PM EST Images from the original note were not included. HEMATOLOGY CONSULTATION VISIT NOTE DATE OF VISIT : 02/14/21 REASON FOR VISIT: Alexis Pelayo is a 50 y.o. male referred by Arias Garay for evaluation of thrombocytosis. HISTORY OF PRESENT ILLNESS Alexis Pelayo is a 50 y.o. male with PMH of smoking, COPD/emphysema, referred for evaluation of thrombocytosis.. Presentation: To have thrombocytosis on his recent labs Labs from referring MD: 01/23/2021: Ca : 10.6, total protein 8.5, Albumin: 4.2, creatinine: 1.0 CBC: WBC: 12.12, normal differential, Hgb: 15.4, HCT: 49.1, MCV: 95.7, platelets: 666 COPD He had CTA for worsening cough on 01/23/2021 and that was negative for PE 10/13/2020: Platelets: 620k INTERIM Hx: In office today, Alexis Pelayo is here for initial consultation. He reports back pain in mid thoracic region for the past 2 months which is worsening lately. Pain worsens deep breath. He had CTA on 01/23/21 when he presented with these complains and it was negative for PE. He also reported black outs at that time. He reports that he didn't have any head imaging.He reports feeling lightheaded before passing out and reports that usually, he recovers the consciousness with in 1-2mts. He comments that his whole body hurts, but, worst is his back. - No leg swelling; no h/o VTE. - No fevers or night sweats; unexplained wt loss of 20lbs with in the past 6 months - Cramps in the hands. - Has tingling and numbness in the fingers for couple of years. - Has chronic cough from emphysema. He is always tired. He gets SOB with one flight of stairs. - No headaches today; He always has constant chest pain; No palpitations; he has h/o migraines for 31 years now; - No active cardiac/resp/GI issues; Rest of the ROS: Negative REVIEW OF SYSTEMS Constitutional --Energy level: as above --Pain: as above --Fevers/chills/sweats: No --Unexpected weight loss or gain: as above Eyes - No change in vision Ears, nose, throat - No change hearing, no oral or throat pain or thrush Cardiovascular: as above --SOB: as above -- Palpitations: No --chest pain: as above Respiratory --Cough: as above --SOB, TRAORE:as above Gastrointestinal --Appetite: good --Nausea/vomiting: No - Diarrhea/constipation: No - Abd pain: No Genitourinary --Dysuria or hematuria: No Musculoskeletal --Muscle pain or weakness: No --Joint pain or swelling: as above Immune System --Recent infections: No Hematology/Lymph --Bruising/bleeding/melena: No --Enlarged nodes or other masses: No Skin --Rashes or petechiae: No Neuro - as above Psych: -Anxiety, depressed mood, suicidal or homicidal ideation : No Other ROS: All negative PROBLEM LIST There are no problems to display for this patient. PAST SURGICAL Hx: No past surgical history on file. MEDICATIONS ??? Advair Diskus 250-50 mcg/dose Disk with Device ??? Spiriva with HandiHaler 18 mcg Capsule, w/Inhalation Device ALLERGIES/ADR No Known Allergies PERSONAL and SOCIAL HISTORY ?? Lives in: [facility] ?? 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 ?? ETOH: occasional ?? Smoking: smokes 10 cigarettes per day; he was smoking 1ppd for 35 years, until 09/2020; ?? HIPPA Contact Permission: OK to leave voice mail on phone. FAMILY HISTORY No family history on file. PHYSICAL EXAM VITAL SIGNS: Blood pressure (!) 180/108, pulse 95, temperature 37 ??C (98.6 ??F), temperature source Temporal, resp. rate 18, height 178.5 cm (5' 10.28), weight 70.3 kg (155 lb), SpO2 96 %. Rpt BP: 168/104 ECOG PS: 0 GENERAL: Alexis Pelayo is a well-appearing 50 y.o. male in no acute distress. HEENT: Sinuses: non-tender; Oropharynx : moist , clear, No lesions, No thrush. ENDOCRINE: No thyromegaly palpated. CARDIOVASCULAR: Heart with regular rate and rhythm without S3,S4 or murmurs. PULMONARY: Lungs are clear to auscultation without rales, rhonchi or wheezing. GASTROINTESTINAL: Abdomen soft and non-tender without palpable masses or hepatosplenomegaly. MUSCULOSKELETAL: Neck supple with full ROM. Pont tenderness + on Rt side in the scapular region; SKIN: No rashes, bruises or petechiae. NEUROLOGICAL: Alert and oriented to person, place and time; No focal neurological deficits; EXT: No peripheral edema. PSYCHIATRIC: normal affect and mood LABORATORY No results found for this or any previous visit (from the past 72 hour(s)). RADIOLOGY - None ASSESSMENT & PLANS Alexis Pelayo is a 50 y.o. male with PMH of smoking, COPD/emphysema, referred for evaluation of thrombocytosis.. Is a CBC from PCPs office is notable for leukocytosis with absolute neutrophilia and thrombocytosis. I reviewed the differential for his CBC abnormalities: Primary hematological disorder such as myeloproliferative neoplasms versus reactive increase in the blood counts, 2ry to underlying comorbidities . I recommended checking for JAK2 with reflex to myeloid gene panel for MPL, CALR, BCR ABL for further evaluation. I will also check ESR, CRP and repeat CBC. Of note, he is an active smoker. Cigarette smoking has been associated with leukocytosis, absolute neutropenia and thrombocytosis. He also reports diffuse aches and pains, worse in the upper back (recent CTA was negative for PE). These are of unclear etiology. # High BPs: His BP was 180/108 and recheck was 168/104. I sent a message to his PCP regarding his BP and severe back pain and advised him to call his PCP after this visit and discuss about his BP. IN SUMMARY: - Will get CT report dated 01/23/21 from [facility]. - CBC, JAK2 with reflex to myeloid gene panel -Telehealth visit in 2 weeks to review the labs and further management I reviewed my impression and recommendations with Alexis Pelayo and answered all the questions.. Pt agreed with the plan. Thank you Arias Thompson for asking us to see this very pleasant patient. Please don't hesitate to contact me if you'd like to discuss this patient's situation further. Ginna Wallis MD [facility] CC: IGNACIA Mora Logan Dege documented in this encounter Plan of Treatment Upcoming Encounters Date Type Department Care Team (Late st Contact Info) Description 09/22/2023 2:30 PM EDT Office Visit Hematology/Oncology at [address] [phone] oCdy Frazier MD [facility] [address] HEMATOLOGY [place] [address] documented as of this encounter Results * (ABNORMAL) CRP, acute inflammation (02/14/2021 2:04 PM EST) C-Reactive Protein 6.8(H) <=4.9 mg/L [facility] Blood 02/14/2021 2:04 PM EST 02/14/2021 2:44 PM EST Narrative Resulting Agency Comment Spec In Lab Ginna Guillen MD CHEMISTRY ORDERA BLES Performing Organization Address City/[facility]/ZIP Co de Phone Number [facility] [place] [address] * (ABNORMAL) Sedimentation rate (02/14/2021 2:04 PM EST) Sedimentation Rate Automated 31(H) 2 - 28 mm/hr [facility] Comment: Effective January 20, 2019 new capillary photometric technology has resulted in a change in reference ranges. It is recommended that each ESR result be reviewed with its own age appropriate reference range. Blood 02/14/2021 2:04 PM EST 02/14/2021 2:44 PM EST Narrative Resulting Agency Comment Spec In Lab Ginna Guillen MD HEMATOLOGY ORDER ENOC Performing Organization Address City/[facility]/ZIP Co de Phone Number [facility] [place] [address] * JAK2 with reflex to Myeloid Panel (02/14/2021 2:04 PM EST) JAK2 (Interp) JAK2 V617F Somatic Variant Genotyping RESULTS: The JAK2 V617F somatic variant is NOT DETECTED. Specimen type: blood Indication: leukocytosis and thrombocytosis INTERPRETATION: ??The absence of the JAK2 V617F variant does not exclude the diagnosis of a myeloproliferative neoplasm (MPN). While approximately 95% of polycythemia vera (PV) cases are associated with the V617F variant, 2-5% of PV cases have variants in exon 12 of JAK2. Additionally, V617F is present in 50-60% of essential thrombocythemia (ET) and primary myelofibrosis (PMF) cases. Further interpretation of this finding must be made in the context of any additional testing and the complete hematopathologic and clinical presentation. METHOD: A region of the Janus kinase 2 (JAK2) gene including the V617 codon is amplified by PCR in the presence of 5? hydrolysis probes capable of detecting and distinguishing between the normal reference sequence ([id number]) and the V617F variant sequence encoding the V617F variant ([id number]:c.184 9G>T; [id number]:p.Val6 17Phe). The analytic sensitivity of this test permits detection of low-level V617F variants present in little as 5% of the total JAK2 DNA. Genomic DNA used in this testing was isolated from either peripheral blood or bone marrow as indicated above. LIMITATIONS AND DISCLAIMERS: Although unlikely, additional rare variants (germline or somatic; benign or pathogenic; known or unknown), have the potential to interfere with the performance of this test, producing false negative or false positive results. When genotyping results are not consistent with other clinical observations or test results, additional testing should be considered. This test was developed and its performance characteristics determined by the Clinical Genomics and Advanced Technology (CGAT) Laboratory at [facility]. It has not been cleared or approved by the FDA. The laboratory is regulated under CLIA as qualified to perform high-complexity testing. This test is used for clinical purposes. It should not be regarded as investigational or for research. [facility] Comment: [VERIFIED DATE]02.16.21 Verified By:Wilda Robbins, Guille Bynum Director, Molecular Pathology (Electronic Signature) Blood 02/14/2021 2:04 PM EST 02/15/2021 8:11 AM EST Narrative Resulting Agency Comment Spec In Lab Ginna Guillen MD HEMATOLOGY ORDER ENOC [facility] [place] [address] documented in this encounter Visit Diagnoses Diagnosis Leukocytosis, unspecified type Thrombocytosis Essential thrombocythemia Hypertension, unspecified type Chronic thoracic back pain, unspecified back pain laterality documented in this encounter Care Teams Receiving Barn Custodian Relationship Specialty Start Date End Date Arias Mast DNP PCP - General Family Medicine 02/14/21 04/02/22 documented as of this encounter
--- OUTSIDE RECORDS SUMMARY | 2023-09-15 02:25 | XMS_ITS | Encounter Summary ---
Author Organization [facility] Address [facility] [place] [address] Care Team Providers Care Rubber Stamp Maker Name Role Phone Arias Mast DNP Primary Care Provider [phone] Encounter Details Date Type Department Care Team (Latest Contact Info) Description 02/14/2021 1:56 PM EST - 02/14/2021 11:59 PM EST Hospital Encounter Hematology and Oncology at [facility] [place] [phone] Leukocytosis, unspecified type; Thrombocytosis; Hypertension, unspecified type; Chronic thoracic back pain, unspecified back pain laterality Discharge Disposition: Home Social History Tobacco Use [...] Start Date End Date ProChamber Spacer 01/23/2021 Spiriva with HandiHaler 18 mcg Capsule, w/Inhalation Device Inhale 18 mcg into the lungs daily. 01/23/2021 Advair Diskus 250-50 mcg/dose Disk with Device Inhale 250 puffs into the lungs 2 times daily. 01/23/2021 04/26/2023 documented as of this encounter Plan of Treatment Upcoming Encounters Date Type Department Care Team (Late st Contact Info) Description 09/22/2023 2:30 PM EDT Office Visit Hematology/Oncology at [address] [address] Cody Frazier MD [facility] [address] HEMATOLOGY [place] [address] documented as of this encounter Procedures Procedure Name Priority Date/Time Associated Diagnosis Comments JAK2 WITH REFLEX TO MYELOID PANEL Routine 02/14/2021 2:04 PM EST Leukocytosis, unspecified type Thrombocytosis Hypertension, unspecified type Chronic thoracic back pain, unspecified back pain laterality MYELOID SEQ PANEL Routine 02/14/2021 2:0 4 PM EST HC VENIPUNCTURE Routine 02/14/2021 2:04 PM EST Leukocytosis, unspecified type Thrombocytosis Hypertension, unspecified type Chronic thoracic back pain, unspecified back pain laterality HEMOGRAM Routine 02/14/2021 2:04 PM EST Leukocytosis, unspecified type Thrombocytosis Hypertension, unspecified type Chronic thoracic back pain, unspecified back pain laterality DIFFERENTIAL, AUTOMATED Routine 02/14/2021 2:04 PM EST Leukocytosis, unspecified type Thrombocytosis Hypertension, unspecified type Chronic thoracic back pain, unspecified back pain laterality HC ESR-SEDIMENTATION RATE, BLOOD Routine 02/14/2021 2:04 PM EST Leukocytosis, unspecified type Thrombocytosis Hypertension, unspecified type Chronic thoracic back pain, unspecified back pain laterality HC CBC,PLT & AUTO DIFF Routine 02/14/2021 2:04 PM EST Leukocytosis, unspecified type Thrombocytosis Hypertension, unspecified type Chronic thoracic back pain, unspecified back pain laterality documented in this encounter Results * Myeloid Seq Panel (02/14/2021 2:04 PM EST) Blood 02/14/2021 2:04 PM EST 02/15/2021 8:11 AM EST Narrative Resulting Agency Comment Spec In Lab Ginna Guillen MD CHEMISTRY ORDERA BLES Performing Organization Address City/State/[facility] Co de Phone Number [facility] [place] [address] * (ABNORMAL) Differential, Automated (02/14/2021 2:04 PM EST) Neutrophil % 77.0 % [facility] Neutrophil Absolute 10.07(H) 1.70 - 6.10 x10(3)/mc L [facility] Lymph % 12.7 % [facility] Lymphocytes Abs 1.7 0.9 - 3.2 x10(3)/mc L [facility] Monocyte % 7.7 % [facility] Monocyte Abs 1.0(H) 0.3 - 0.9 x10(3)/mc L [facility] Eos % 1.0 % [facility] Eosinophils Abs 0.1 0.0 - 0.4 x10(3)/mc L [facility] Basophil % 1.1 % [facility] Baso Absolute 0.2(H) 0.0 - 0.1 x10(3)/mc L [facility] Immature Gran % 0.50 % [facility] Comment: Immature granulocytes(IG's)percentage and absolute count will include metamyelocytes, myelocytes, and promyelocytes. Blood smears from CBCs yielding IG's will be scanned manually for concordance. If this scan disagrees with the automated IG or if promyelocytes are noted, a manual differential will be performed. Immature Gran Absolute 0.07(H) 0.00 - 0.04 x10(3)/mc L [facility] Blood 02/14/2021 2:04 PM EST 02/14/2021 2:44 PM EST Narrative Resulting Agency Comment Spec In Lab Ginna Guillen MD HEMATOLOGY ORDER ENOC [facility] [place] [id number] * (ABNORMAL) Hemogram (02/14/2021 2:04 PM EST) White Blood Cell 13.1(H) 4.0 - 9.5 x10(3)/mc L [facility] Red Blood Cell 5.25 4.58 - 5.54 x10(6)/mc L [facility] Hemoglobin 15.9 13.7 - 16.5 g/dL [facility] Hematocrit 48.8(H) 40.5 - 48.5 % [facility] Mean Cell Volume 93.0 82.9 - 93.1 fL [facility] Mean Cell Hemoglobin 30.3 27.5 - 32.1 pg [facility] Mean Cell Hemoglobin Concentration 32.6 32.0 - 35.7 g/dL [facility] Platelet 452(H) 145 - 357 x10(3)/mc L [facility] RDW Standard Deviation 43.4 36.0 - 45.0 fL [facility] RDW coefficient of variation 12.6 11.4 - 13.8 % [facility] Mean Platelet Volume 9.8 7.6 - 12.9 fL [facility] NRBC% auto 0.0 % [facility] NRBC Absolute 0.000 0.000 - 0.000 x10(3)/mc L [facility] Blood 02/14/2021 2:04 PM EST 02/14/2021 2:44 PM EST Narrative Resulting Agency Comment Spec In Lab Ginna Guillen MD HEMATOLOGY ORDER ENOC [facility] [place] [phone] * JAK2 with reflex to Myeloid Panel [...] Genomics and Advanced Technology (CGAT) Laboratory at [facility]. It has not been cleared or approved by the FDA. The laboratory is regulated under CLIA as qualified to perform high-complexity testing. This test is used for clinical purposes. It should not be regarded as investigational or for research. [facility] Comment: [VERIFIED DATE]02.16.21 Verified By:Wilda PhD, Guille Bynum Director, Molecular Pathology (Electronic Signature) Blood 02/14/2021 2:04 PM EST 02/15/2021 8:11 AM EST Narrative Resulting Agency Comment Spec In Lab Ginna Guillen MD HEMATOLOGY ORDER ENOC Performing Organization Address City/[facility]/ZIP Co de Phone Number [facility] [place] [address] * (ABNORMAL) Sedimentation rate (02/14/2021 2:04 PM EST) Sedimentation Rate Automated 31(H) 2 - 28 mm/hr [facility] Comment: Effective January 20, 2019 new capillary photometric technology has resulted in a change in reference ranges. It is recommended that each ESR result be reviewed with its own age appropriate reference range. Blood 02/14/2021 2:04 PM EST 02/14/2021 2:44 PM EST Narrative Resulting Agency Comment Spec In Lab Ginna Guillen MD HEMATOLOGY ORDER ENOC Performing Organization Address City/[facility]/ZIP Co de Phone Number [facility] [place] [address] * (ABNORMAL) CRP, acute inflammation (02/14/2021 2:04 PM EST) C-Reactive Protein 6.8(H) <=4.9 mg/L [facility] Blood 02/14/2021 2:04 PM EST 02/14/2021 2:44 PM EST Narrative Resulting Agency Comment Spec In Lab Ginna Guillen MD CHEMISTRY ORDERA BLES Performing Organization Address City/State/[facility] Co de Phone Number [facility] [place] [address] documented in this encounter Visit Diagnoses Diagnosis Leukocytosis, unspecified type Thrombocytosis Essential thrombocythemia Hypertension, unspecified type Chronic thoracic back pain, unspecified back pain laterality documented in this encounter Care Teams Rubber Stamp Maker Relationship Specialty Start Date End Date Arias Mast DNP PCP - General Family Medicine 02/14/21 04/02/22 documented as of this encounter
--- OUTSIDE RECORDS SUMMARY | 2023-09-15 02:25 | XMS_ITS | Encounter Summary ---
Author Organization [facility] Address [facility] [place] [address] Care Team Providers Care Air Pollution Inspector Name Role Phone Arias Mast DNP Primary Care Provider [phone] Encounter Details Date Type Department Care Team (Late st Contact Info) Description 06/05/2021 Telephone Pulmonology at [facility] [place] [place] [phone] Darcy Dominguez Social History Tobacco Use Types [...] slept in a correction (including now)? No 02/14/2021 Sex and Gender Information Value Date Recorded Sex Assigned at Not on file Gender Identity Not on file Sexual Orientation Not on file documented as of this encounter Plan of Treatment Upcoming Encounters Date Type Department Care Team (Late st Contact Info) Description 09/22/2023 2:30 PM EDT Office Visit Hematology/Oncology at [address] [phone] Cody Frazier MD [facility] [address] [place] [address] documented as of this encounter Visit Diagnoses Not on filedocumented in this encounter Care Teams Air Pollution Inspector Relationship Specialty Start Date End Date Arias Mast DNP PCP - General Family Medicine 02/14/21 04/02/22 documented as of this encounter
--- OUTSIDE RECORDS SUMMARY | 2023-09-15 02:25 | XMS_ITS | Clinical Summary ---
Author Organization [facility] Address [address] [place] [address] Care Team Providers Care Multi Mission Helicopter Aircrewman Name Role Phone Unavailable Primary Care Provider Unavailabl e Social History Tobacco Use Types Packs/Day Years Used Date Smoking Tobacco: Never Assessed Sex and Gender Information Value Date Recorded Sex Assigned at Not on file Gender Identity Not on file Sexual Orientation Not on file Plan of Treatment Health Maintenance Due Date Last Done Comments Hepatitis C Screen 1970 Hepatitis B Vaccine (1 of 3 - 19+ 3-dose series) 10/08 COVID-19 Vaccine (2022-24 season) 2022
--- OUTSIDE RECORDS SUMMARY | 2023-09-15 02:25 | XMS_ITS | Encounter Summary ---
Author Organization [facility] Address [address] [place] [address] Care Team Providers Care Dope Sprayer Name Role Phone Unavailable Primary Care Provider Unavailabl e Encounter Details Date Type Department Care Team (Late st Contact Info) Description 04/21/2023 Lab Requisition [facility] Pathology & Laboratory Medicine - [facility] [address] [place], [place] [address] Outr Resulting Lab, Provider Social History Tobacco [...] Diagnosis Comments LEGIONELLA ANTIGEN DETECTION, URINE Routine 04/21/2023 10:56 EDT documented in this encounter Results * LEGIONELLA ANTIGEN DETECTION, URINE (04/21/2023 10:56 EDT) Legionella Antigen Detection Negative Negative 04/21/2023 19:28 EDT [facility] Urine URINE / Unknown 04/21/2023 1 0:56 EDT 04/21/2023 18:29 EDT Provider Outr Resulting Lab MICROBIOLOGY - GENERAL ORDERABLES [facility] [address] [place], [place] [id number] documented in this encounter Visit Diagnoses Not on filedocumented in this encounter
--- OUTSIDE RECORDS SUMMARY | 2023-09-15 02:25 | XMS_ITS | Encounter Summary ---
Author Organization [facility] Address [address] [place] [address] Care Team Providers Care Child Protective Services Specialist Name Role Phone Unavailable Primary Care Provider Unavailabl e Encounter Details Date Type Department Care Team (Late st Contact Info) Description 04/22/2023 Lab Requisition [facility] Pathology & Laboratory Medicine - [facility] [address], [place] [address] Outr Resulting Lab, Provider Social History Tobacco [...] Procedure Name Priority Date/Time Associated Diagnosis Comments TRANSFERRIN Routine 04/22/2023 10:12 EDT documented in this encounter Results * TRANSFERRIN (04/22/2023 10:12 EDT) Transferrin 207 201 - 352 mg/dL 04/23/2023 9:27 EDT [facility] Blood VENOUS BLOOD / Unknown 04/22/2023 10:12 EDT 04/22/2023 16:36 EDT Provider Outr Resulting Lab CHEMISTRY & BLOOD GAS ORDERABLES [facility] [address] [place] [address] documented in this encounter Visit Diagnoses Not on filedocumented in this encounter
--- OUTSIDE RECORDS SUMMARY | 2023-09-15 02:25 | XMS_ITS | Encounter Summary ---
Author Organization [facility] Address [address] [place] [address] Care Team Providers Care Strategy Lead Name Role Phone Unavailable Primary Care Provider Unavailabl e Encounter Details Date Type Department Care Team (Late st Contact Info) Description 01/23/2021 Lab Requisition [facility] Pathology & Laboratory Medicine - [facility] [address] [place] [address] Outr Resulting Lab, Provider Social History Tobacco [...] Procedure Name Priority Date/Time Associated Diagnosis Comments ZZCOVID-19 TEST [facility] PCR Today 01/23/2021 9:15 EST COVID-19 TESTING Routine 01/23/2021 9:15 EST documented in this encounter Results * COVID-19 TEST [facility] PCR (01/23/2021 9:15 EST) Swab 01/23/2021 9:15 EST 01/23/2021 21:18 EST Provider Outr Resulting Lab MICROBIOLOGY - GENERAL ORDERABLES [facility] [address] [place] [address] * COVID-19 TESTING (01/23/2021 9:15 EST) COVID-19 rt-PCR Result Negative Negative 01/24/2021 14:34 EST [facility] Comment: This test has not been FDA cleared or approved. This test has been authorized by FDA under an EUA for use by authorized laboratories. This test has been authorized only for detection of nucleic acid from 2019-nCoV, not for any other viruses or pathogens. This test is only authorized for the duration of the declaration that circumstances exist justifying the authorization of emergency use of in vitro diagnostic tests for detection and/or diagnosis of 2019-nCoV under section 564(b)(1) of Act, 21 U.S.C ?? 360bbb-3(b) (1), unless the authorization is terminated or revoked sooner. Negative results do not preclude 2019-nCoV infection and should not be used as the sole basis for treatment or other patient management decisions. Negative results must be combined with clinical observations, patient history, and epidemiological information. Testing was performed using the nita SARS-CoV-2 assay ([employer] on the Nita 6800 System Performing Lab Nita 6800 [facility] 01/24/2021 14:34 EST [facility] Swab 01/23/2021 9:15 EST 01/23/2021 21:18 EST Provider Outr Resulting Lab MICROBIOLOGY - GENERAL ORDERABLES [facility] [address] [place] [address] documented in this encounter Visit Diagnoses Not on filedocumented in this encounter
--- OUTSIDE RECORDS SUMMARY | 2023-09-15 02:25 | XMS_ITS | Encounter Summary ---
Author Organization [facility] Address [facility] [place] [address] Care Team Providers Care Block Sorter Name Role Phone Alexandre De Santiago MD Primary Care Provider [phone] Encounter Details Date Type Department Care Team (Late st Contact Info) Description 02/08/2021 Abstract [place] [address] Toya Teran Social History Tobacco Use Types Packs/Day Years [...] PM EDT Office Visit Hematology/Oncology at [address] [phone] Cody Frazier MD [facility] DR HEMATOLOGY [place] [address] documented as of this encounter Visit Diagnoses Not on filedocumented in this encounter Care Teams Block Sorter Relationship Specialty Start Date End Date Alexandre De Santiago MD [facility] [address] [place] [address] PCP - General Family Medicine 01/29/21 02/13/21 documented as of this encounter
--- OUTSIDE RECORDS SUMMARY | 2023-09-15 02:25 | XMS_ITS | Encounter Summary ---
Author Organization [facility] Address [facility] [place] [address] Care Team Providers Care Senior Mobile Web Developer Name Role Phone Arias Mast DNP Primary Care Provider [phone] Encounter Details Date Type Department Care Team (Latest Contact Info) Description 03/02/2021 1:30 PM EST TH Visit (TeleHealth) Hematology [place] [address] Ginna Guillen MD [facility] [address] [place] [address] Shiloh Harper APRN [facility] [address] [place] [address] Leukocytosis, unspecified type; Thrombocytosis Social History Tobacco Use Types Packs/Day Years [...] as of this encounter Progress Notes * Ginna Wallis MD - 03/02/2021 1:30 PM EST Images from the original note were not included. HEMATOLOGY TELEHEALTH FOLLOW-UP VISIT NOTE Patient identity was confirmed and patient verbally consented to this telephone visit and understands that this visit may be billed, similar to a clinic office visit. Patient understands that a telephone visit prevents the ability to complete a full evaluation which normally includes vitals and physical exam. Patient understands if there are concerns and he/she may be asked to have an office visit. DATE OF VISIT : 03/02/21 REASON FOR VISIT: Holland Pelayo is a 50 y.o. male referred by Arias Garay for evaluation of thrombocytosis. HISTORY OF PRESENT ILLNESS Holland Pelayo is a 50 y.o. male with [...] for PE 10/13/2020: Platelets: 620k INTERIM Hx: No new health issues since last seen. Still has back pain PROBLEM LIST There are no problems to display for this patient. PAST SURGICAL Hx: No past surgical history on file. MEDICATIONS ??? Advair Diskus 250-50 mcg/dose Disk with Device ??? Spiriva with HandiHaler 18 mcg Capsule, w/Inhalation Device ALLERGIES/ADR No Known Allergies PERSONAL and SOCIAL HISTORY ?? Lives in: [facility] ?? 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 ?? ETOH: occasional ?? Smoking: smokes 10 cigarettes per day; he was smoking 1ppd for 35 years, until 09/2020; ?? HIPPA Contact Permission: OK to leave voice mail on phone. FAMILY HISTORY No family history on file. PHYSICAL EXAM VITAL SIGNS: There were no vitals taken for this visit. ECOG PS: 0 Exam not performed as this is telehealth visit LABORATORY Results for HOLLAND PELAYO ( ) as of 03/02/2021 16:26 Ref. Range 02/14/2021 14:04 WBC Latest Ref Range: 4.0 - 9.5 x10(3)/mcL 13.1 (H) RBC Latest Ref Range: 4.58 - 5.54 x10(6)/mcL 5.25 Hemoglobin Latest Ref Range: 13.7 - 16.5 g/dL 15.9 Hematocrit Latest Ref Range: 40.5 - 48.5 % 48.8 (H) MCV Latest Ref Range: 82.9 - 93.1 fL 93.0 MCH Latest Ref Range: 27.5 - 32.1 pg 30.3 MCHC Latest Ref Range: 32.0 - 35.7 g/dL 32.6 RDWSD Latest Ref Range: 36.0 - 45.0 fL 43.4 RDWCV Latest Ref Range: 11.4 - 13.8 % 12.6 Platelets Latest Ref Range: 145 - 357 x10(3)/mcL 452 (H) MPV Latest Ref Range: 7.6 - 12.9 fL 9.8 nRBC % Auto Latest Units: % 0.0 nRBC Abs Auto Latest Ref Range: 0.000 - 0.000 x10(3)/mcL 0.000 Neutr Abs (ANC) Latest Ref Range: 1.70 - 6.10 x10(3)/mcL 10.07 (H) Neutrophils % Latest Units: % 77.0 Immature Gran % Latest Units: % 0.50 Lymphocytes % Latest Units: % 12.7 Monocytes % Latest Units: % 7.7 Eosinophils % Latest Units: % 1.0 Basophils % Latest Units: % 1.1 Evelia Gran Abs Latest Ref Range: 0.00 - 0.04 x10(3)/mcL 0.07 (H) Lymphocytes Abs Latest Ref Range: 0.9 - 3.2 x10(3)/mcL 1.7 Monocyte Abs Latest Ref Range: 0.3 - 0.9 x10(3)/mcL 1.0 (H) Eosinophils Abs Latest Ref Range: 0.0 - 0.4 x10(3)/mcL 0.1 Basophils Abs Latest Ref Range: 0.0 - 0.1 x10(3)/mcL 0.2 (H) Sed Rate Latest Ref Range: 2 - 28 mm/hr 31 (H) CRP Latest Ref Range: <=4.9 mg/L 6.8 (H) JAK2 Report Unknown JAK2 [id number] Somati... MYELOID SEQ PANEL Unknown Rpt No gene variants diagnostic for myeloproliferative neoplasm are detected in JAK2 (p.V617F and exon 12), CALR, or MPL; or in any of the other genes sequenced by this panel. RADIOLOGY - None ASSESSMENT & PLANS Holland Pelayo is a 50 y.o. male with PMH of smoking, COPD/emphysema, referred for evaluation of thrombocytosis.. I reviewed all the test results with Mr. Pelayo. CBC is again notable for mild leukocytosis and mild thrombocytosis. JAK2 v617F mutation, reflex to myeloid gene panel is negative for any gene aberrancies. This makes myeloproliferative neoplasms is less likely because of his leukocytosis and thrombocytosis. All his inflammatory markers ESR and CRP are elevated. So, I suspect his leukocytosis and thrombocytosis are reactive secondary to underlying inflammation.. Of note, he is an active smoker. Cigarette smoking has been associated with leukocytosis, absolute neutropenia and thrombocytosis. As he does not have any primary hematological disorder, he does not need any further follow-up withme/hematology. I reviewed my impression and recommendations with Holland Pelayo and answered all the questions.. Pt agreed with the plan. Thank you Arias Thompson for asking us to see this very pleasant patient. Please don't hesitate to contact me if you'd like to discuss this patient's situation further. Ginna Wallis MD [facility] CC: IGNACIA Mora Logan Dege documented in this encounter Plan of Treatment Upcoming Encounters Date Type Department Care Team (Late st Contact Info) Description 09/22/2023 2:30 PM EDT Office Visit Hematology/Oncology at [address] [phone] Cody Frazier MD [facility] DR HEMATOLOGY [place] [address] documented as of this encounter Visit Diagnoses Diagnosis Leukocytosis, unspecified type Thrombocytosis Essential thrombocythemia documented in this encounter Care Teams Senior Mobile Web Developer Relationship Specialty Start Date End Date Arias Mast DNP PCP - General Family Medicine 02/14/21 04/02/22 documented as of this encounter
--- OUTSIDE RECORDS SUMMARY | 2023-09-15 02:25 | XMS_ITS | Encounter Summary ---
Author Organization [facility] Address [facility] [place] [address] Care Team Providers Care Book Canvasser Name Role Phone Kezia, Arias Morales DNP Primary Care Provider [phone] Encounter Details Date Type Department Care Team (Late st Contact Info) Description 05/24/2021 Ancillary Procedure Radiology Library at [facility] [place] [phone] Arias Mast DNP [address] [place] [address] Social History Tobacco Use Types Packs/Day Years [...] PM EDT Office Visit Hematology/Oncology at [address] [phone] Cody Frazier MD [facility] [address] [place] [address] documented as of this encounter Procedures Procedure Name Priority Date/Time Associated Diagnosis Comments FILM LIBRARY STORAGE ONLY CT CHEST Routine 05/24/2021 12:00 AM EDT documented in this encounter Results * Film Library- Storage Only CT Chest (05/24/2021 12:00 AM EDT) Narrative [facility] - 06/05/2021 8:35 AM EDT This exam is auto-finalizing. It's purpose is for storage only. Arias Mast DNP [facility]RARY OR DERABLES [place], [place] documented in this encounter Visit Diagnoses Not on filedocumented in this encounter Care Teams Book Canvasser Relationship Specialty Start Date End Date Arias Mast DNP PCP - General Family Medicine 02/14/21 04/02/22 documented as of this encounter
--- OUTSIDE RECORDS SUMMARY | 2023-09-15 02:25 | XMS_ITS | Referral Summary ---
Author Organization [facility] Address [address] [place] [address] Care Team Providers Care Film Library Clerk Name Role Phone Unavailable Primary Care Provider Unavailabl e Social History Tobacco Use Types Packs/Day Years Used Date Smoking Tobacco: Never Assessed Sex and Gender Information Value Date Recorded Sex Assigned at Not on file Gender Identity Not on file Sexual Orientation Not on file Plan of Treatment Not on file
[2023-09-15 09:57] LABS: Abs Immature Grans 0.13 10^3/uL (0.0-0.06); Absolute Basophil Count 0.12 10^3/uL (0.0-0.2); Absolute Eosinophil Count 0.26 10^3/uL (0.0-0.7); Basophils % 0.8 %; Eosinophils % 1.7 %; HCT 37.6 % (40.0-50.0); HGB 12.1 g/dL (13.5-17.5); Immature Grans % 0.8 %; Lymphocytes % 8.7 %; MCH 28.2 pg (27.0-33.0); MCHC 32.2 % (32.0-36.0); MCV 88 fL (80-95); MPV 9.7 fL (8.0-11.0); Monocytes % 7.8 %; Neutrophils % 80.2 %; Platelet Count 549 10^3/uL (130-400); RBC 4.29 10^6/uL (4.36-5.78); RDW 13.1 % (11.8-14.1); WBC 15.34 10^3/uL (4.4-10.8)
[2023-09-15 09:58] LABS: Absolute Lymphocyte Count 1.33 10^3/uL (1.2-3.4)
[2023-09-15 10:25] LABS: ALT 19 U/L (16-63); AST 13 U/L (15-37); Albumin 2.9 g/dL (3.4-5.0); Alkaline Phosphatase 69 U/L (46-116); Anion Gap 7.2 mmol/L (3-11); BUN 4 mg/dL (7-18); Bilirubin, Total 0.17 mg/dL (0.2-1.0); CO2 30.8 mmol/L (21.0-32.0); CREATININE 0.8 mg/dL (0.70-1.30); Calcium 9.2 mg/dL (8.5-10.1); Chloride 98 mmol/L (98-107); Estimated GFR 107.15 (mL/min/1.73m2); FREE T4 1.35 ng/dL (0.76-1.46); Glucose 116 mg/dL (74-106); Magnesium 1.9 mg/dL (1.8-2.4); Potassium 3.7 mmol/L (3.5-5.1); Sodium 136 mmol/L (136-145); TSH 0.96 uIU/Ml (0.36-3.74); Total Protein 7.8 g/dL (6.4-8.2)
[2023-09-15] MEDS: Normal Saline - Diluent 50 ML VIAL IJ (10:41)
[2023-09-15] MEDS: Omnipaque 350 MG/ML 100 ML BTL 70 ML IJ (10:42)
== END ==
PROVIDERS: Visit Provider Nurse Practitioner Family
DX: C79.51 Secondary malignant neoplasm of bone (principal); C34.31 Malignant neoplasm of lower lobe, right bronchus or lung; J90 Pleural effusion, not elsewhere classified
CPT/HCPCS: 80053; 71260; 83735; 84439; 84443; 85025; J3490

== ENCOUNTER 2023-10-27 04:42 | Outpatient (CLI) | payer MEDICAID, SELFPAY ==
[2023-10-27 10:25] LABS: Abs Immature Grans 0.22 10^3/uL (0.0-0.06); Absolute Basophil Count 0.11 10^3/uL (0.0-0.2); Absolute Lymphocyte Count 1.36 10^3/uL (1.2-3.4); Basophils % 0.5 %; Eosinophils % 0.4 %; HCT 31.3 % (40.0-50.0); HGB 9.5 g/dL (13.5-17.5); Lymphocytes % 6.4 %; MCH 24.6 pg (27.0-33.0); MCHC 30.4 % (32.0-36.0); MCV 81 fL (80-95); MPV 9.2 fL (8.0-11.0); Monocytes % 9.8 %; Neutrophils % 81.9 %; RBC 3.86 10^6/uL (4.36-5.78); RDW 15.2 % (11.8-14.1); RDW-SD 45.2 fL; WBC 21.27 10^3/uL (4.4-10.8)
[2023-10-27 10:27] LABS: Absolute Eosinophil Count 0.09 10^3/uL (0.0-0.7); Absolute Monocyte Count 2.08 10^3/uL (0.1-0.8); Absolute Neutrophil Count 17.42 10^3/uL (1.2-6.7)
[2023-10-27 10:43] LABS: Diff Comment Agrees w/ Instrument; Platelet Count 1051 10^3/uL (130-400); RBC Morphology Normal
[2023-10-27 10:50] LABS: ALT 12 U/L (16-63); AST 19 U/L (15-37); Albumin 1.9 g/dL (3.4-5.0); Alkaline Phosphatase 117 U/L (46-116); Anion Gap 8.1 mmol/L (3-11); BUN 5 mg/dL (7-18); Bilirubin, Total 0.39 mg/dL (0.2-1.0); CO2 31.9 mmol/L (21.0-32.0); CREATININE 1.1 mg/dL (0.70-1.30); Calcium 9.3 mg/dL (8.5-10.1); Chloride 91 mmol/L (98-107); Estimated GFR 80.77 (mL/min/1.73m2); Glucose 116 mg/dL (74-106); Magnesium 1.8 mg/dL (1.8-2.4); Potassium 4.4 mmol/L (3.5-5.1); Sodium 131 mmol/L (136-145); TSH 1.82 uIU/Ml (0.36-3.74); Total Protein 9.5 g/dL (6.4-8.2)
[2023-10-27 11:19] LABS: FREE T4 1.52 ng/dL (0.76-1.46)
== END 2023-10-27 04:43 | disposition home or self-care (01) ==
PROVIDERS: Visit Provider Nurse Practitioner Family
DX: C34.31 Malignant neoplasm of lower lobe, right bronchus or lung (principal); Z79.899 Other long term (current) drug therapy
CPT/HCPCS: 36415; 80053; 83735; 84439; 84443; 85025

== ENCOUNTER 2023-11-11 01:49 | Outpatient (CLI) | payer MEDICAID, SELFPAY ==
--- NOTE | 2023-11-11 | DI.CT_ITS ---
Exam(s) CT CHEST W EXAM: CT CHEST W CLINICAL HISTORY: LUNG CANCER C34.31 BONE CANCE RC79.51 ASSESS TREATMENT RESPONSE TECHNIQUE: Imaging Protocol: Axial computed tomography images with coronal and sagittal reformatted images were created and reviewed CONTRAST MATERIAL: Intravenous: Omnipaque 350 Contrast volume:structured data ml. COMPARISON: CT CT CHEST W from 05/15/[address] CHEST W from 09/15/2023 FINDINGS: Pulmonary parenchyma: Severe emphysematous changes with large blebs at the lung apices. Marked inte rval increase in size of cystic collection containing mostly fluid. There is a small amount of air. Approximate measurements are 20 cm cephalo caudad by 13 cm transverse by 17 cm AP. There is tiffany evelyne of the adjacent lung. There is wall thickening. Abscess is not excluded. The right upper lobe posterior pleural thickening and areas of scarring has mildly increased. Stable small nodule anteri or right upper lobe. Tracheobronchial tree: No mucous plugging. Mild right upper lobe traction bronchiectasis. Mediastinum and Anamika: Stable mildly enlarged right paratracheal and subcarinal lymph nodes. Pleura: Decreased size of right pleural effusion. No pneumothorax. Heart: The heart is not dilated. Mild coronary artery calcifications are seen. Small pericardial ef fusion. This is new from prior. There is compression of the right lateral ventricle due to the larg e fluid collection. Aorta: Thoracic aorta non-dilated. Mild atherosclerotic changes. Pulmonary arteries: No gross evidence of emboli. Upper abdomen: No acute findings. Bones: Degenerative changes in the spine. Postsurgical deformities of posterior right ribs. Soft tissues: Unremarkable. IMPRESSION: Marked interval increase in size right lower lesion which contains air and fluid. This occupies appr oximately 2/3 of the chest cavity. Mild interval increase in right pleural thickening and right uppe r lobe scarring/atelectasis. Unexpected findings RADIATION DOSE DELIVERED: 129.24mGy.cm Total DLP DATA REPOSITORY: All CT scans at this facility are submitted to the National Radiology Data Registry (NRDR) Dose Index Registry (DIR) with the [employer] (ACR). RADIATION OPTIMIZATION: All CT scans at this facility use at least one of these dose optimization te chniques: automated exposure control; mA and/or kV adjustment per patient size (includes targeted exa ms where dose is matched to clinical indication); or iterative reconstruction.
[2023-11-11] MEDS: Normal Saline - Diluent 50 ML VIAL IJ (12:44)
[2023-11-11] MEDS: Omnipaque 350 MG/ML 100 ML BTL 70 ML IJ (12:45)
== END 2023-11-11 02:09 ==
LOC: DI 01:50
PROVIDERS: Visit Provider Internal Medicine Medical Oncology
DX: C34.31 Malignant neoplasm of lower lobe, right bronchus or lung (principal); C79.51 Secondary malignant neoplasm of bone
CPT/HCPCS: 71260; J3490

== ENCOUNTER 2023-12-29 01:15 | Outpatient (CLI) | payer MEDICAID, SELFPAY ==
--- NOTE | 2023-12-29 | DI.CT_ITS ---
Exam(s) CT CHEST W EXAM: CT CHEST W CLINICAL HISTORY: RT LUNG CA,C34.31,SECONDARY NEOPLASM OF BONE,C79.51. TECHNIQUE: Multi planar reconstructions were performed. CONTRAST MATERIAL: Omnipaque 350; 75 cc COMPARISON: CT CT CHEST W from 09/15/[address] CHEST W from 11/11/2023 FINDINGS: CHEST: LUNGS: Again noted are severe emphysematous changes. Postsurgical posterior right rib changes again noted. The recently described large sub pulmonic trenton ection in the right hemithorax is again noted, presently measuring 18 cm craniocaudal by 14 cm wide b y 16.5 cm AP, containing homogeneous fluid density and no gas at the present time.. Above this level in the right lung are emphysematous blebs and some infiltrate which exhibit minimal change from prev ious. In the opposite-left lung there is no prominent area of infiltrate anteriorly in the left upper lobe which was not evident on 11/11/2023. This does not appear cavitated. There is no pleural effusion o n the left side. MEDIASTINUM: Right hilar adenopathy noted which appears to have increased. Small subcarinal lymph no jude evident. There is no adenopathy in the pretracheal region nor in the anterior mediastinal fat. Partially visualized thyroid appears unremarkable. CARDIAC: Heart size normal. Size of the pericardial effusion at the base of the heart is unchanged.C aliber of the thoracic aorta is within normal limits. VISUALIZED UPPER ABDOMEN:There are no significant adrenal masses. OSSEOUS: Postsurgical changes in the posterior right ribs again noted. No new lytic nor blastic osse ous lesions. No new fracturesevident. Some height loss in a few midthoracic vertebra is unchanged.. IMPRESSION: 1. Large 18 x 14 x 16.5 cm cystic mass versus sub pulmonic effusion in the right lower hemithorax whi ch has slightly further increased from previous study and is associated with ipsilateral hilar adenop athy. 2. New prominent area of infiltrate in the anterior segment of the left upper lobe. 3. Above findings are superimposed upon severe emphysematous disease in the lung oakley. Other findings as above. RADIATION DOSE DELIVERED: 101.04mGy.cm Total DLP DATA REPOSITORY: All CT scans at this facility are submitted to the National Radiology Data Registry (NRDR) Dose Index Registry (DIR) with the [employer] (ACR). RADIATION OPTIMIZATION: All CT scans at this facility use at least one of these dose optimization te chniques: automated exposure control; mA and/or kV adjustment per patient size (includes targeted exa ms where dose is matched to clinical indication); or iterative reconstruction.
[2023-12-29] MEDS: Omnipaque 350 MG/ML 100 ML BTL IJ (13:34)
[2023-12-29] MEDS: Normal Saline - Diluent 50 ML VIAL IJ (13:36)
== END 2023-12-29 01:35 ==
LOC: DI 01:15
PROVIDERS: Visit Provider Internal Medicine Medical Oncology
DX: C34.31 Malignant neoplasm of lower lobe, right bronchus or lung (principal); C79.51 Secondary malignant neoplasm of bone
CPT/HCPCS: 80053; 71260; 83735; 84439; 84443; 85025; J3490

== ENCOUNTER 2023-12-29 18:13 | Outpatient (REF) | payer MEDICAID, SELFPAY ==
[2023-12-29 13:01] LABS: Abs Immature Grans 0.08 10^3/uL (0.0-0.06); Absolute Basophil Count 0.09 10^3/uL (0.0-0.2); Absolute Eosinophil Count 0.18 10^3/uL (0.0-0.7); Absolute Monocyte Count 0.96 10^3/uL (0.1-0.8); Absolute Neutrophil Count 8.43 10^3/uL (1.2-6.7); Basophils % 0.8 %; Eosinophils % 1.6 %; HCT 31.3 % (40.0-50.0); HGB 9.3 g/dL (13.5-17.5); Immature Grans % 0.7 %; MCH 21.6 pg (27.0-33.0); MCHC 29.7 % (32.0-36.0); MCV 73 fL (80-95); MPV 9.1 fL (8.0-11.0); Monocytes % 8.8 %; Neutrophils % 77.1 %; RDW 17.6 % (11.8-14.1); RDW-SD 45.6 fL; WBC 10.94 10^3/uL (4.4-10.8)
[2023-12-29 13:28] LABS: ALT 28 U/L (16-63); AST 31 U/L (15-37); Albumin 2.1 g/dL (3.4-5.0); Alkaline Phosphatase 103 U/L (46-116); BUN 5 mg/dL (7-18); Bilirubin, Total 0.22 mg/dL (0.2-1.0); CREATININE 0.9 mg/dL (0.70-1.30); Calcium 8.7 mg/dL (8.5-10.1); Chloride 89 mmol/L (98-107); Diff Comment Diff Reviewed; Estimated GFR 102.76 (mL/min/1.73m2); Glucose 102 mg/dL (74-106); Magnesium 1.5 mg/dL (1.8-2.4); Platelet Count 772 10^3/uL (130-400); Potassium 3.4 mmol/L (3.5-5.1); Sodium 131 mmol/L (136-145); TSH 0.78 uIU/mL (0.36-3.74); Total Protein 8.2 g/dL (6.4-8.2)
[2023-12-29 13:29] LABS: Microcytosis 2+
[2023-12-29 15:31] LABS: FREE T4 1.34 ng/dL (0.76-1.46)
--- OUTSIDE RECORDS SUMMARY | 2023-12-29 18:15 | XMS_ITS | Encounter Summary ---
Author Organization Count Includes [facility] Address [facility] [place] [address] Care Team Providers Care Customer Marketing Intern Name Role Phone Nikki Hermosillo IGNACIA Primary Care Provider [phone] Reason for Referral * Diagnostic Test (Routine) - Authorized Specialty Diagnoses / Procedures Referred By Kristan merlos Referred To Contact Radiology Diagnoses Malignant neoplasm of lower lobe, right bronchus or lung Secondary malignant neoplasm of bone Procedures CT Chest w Contrast Milton Frazier MD [facility] DR [place] [address] Referral ID Status Reason Start Date Expiration Date Visits Requested Visits Authorized [id number] Authorized Specialty Service Requested 4 05/30/2025 1 1 Encounter Details Date Type Department Care Team (Late st Contact Info) Description 11/27/2023 Telephone Hematology [place] [phone] Milton Frazier MD [facility] DR [place] [address] Social History Tobacco Use Types Packs/Day Years Used Date Smoking Tobacco: Former Cigarettes 0.3 42.9 S tarted: 1981 Smokeless Tobacco: Never Comments:10 per day- rarely Alcohol Use Standard Drinks/Week Comments Yes 1 (1 standard drink = 0.6 oz pur e alcohol) recently not as often [facility] Utilities Answer Date Recorded In the past 12 months has [employer] electric, gas, oil, or water company threatened [...] in a nursing home (including now)? No 04/25/2023 DH IPV [...] Addendum Note - Milton Frazier MD - 11/30/2023 1:02 PM EDTAddended by: MILTON FRAZIER on: 11/30/2023 01:02 PM Modules accepted: Orders * Telephone Encounter - Milton Frazier MD - 11/27/2023 3:17 PM EDT Telephone Call Imaging reviewed with thoracic surgery. They recommended that he be admitted for IR chest tube drainage to rule out infection and/or malignancy. Does not need to be surgical. Called Cornelius to discuss these recommendations. He indicates that he continues to feel better and better and his breathing is quite good at this point. He is not having fevers. He is bringing up clear liquid he notes. Did not want to pursue intervention given that he is feeling well at this time and worries about potential complications. We did discuss the recommendations and the concern that a relatively quick and worrisome that his breathing could be compromised. He was agreeable to reaching out or seeking medical attention should his breathing start to worsen so that we can deal with it more definitively but in the meantime we will hold off on intervention. If there is a clear role for systemic therapy atthis moment. Will plan to have nursing check in with him in the next week or 2 and then schedule him for a follow-up CT scan in about a month Milton Frazier MD, MS 11/30/2023 Medical Oncology & Hematology [facility] documented in this encounter Plan of Treatment Upcoming Encounters Date Type Department Care Team (Late st Contact Info) Description 01/05/2024 2:30 PM EST TH Visit (TeleHealth) Hematology/Oncology at [address] [phone] Milton Frazier MD [facility] DR HEMAT[place] [address] Bea Grimes APRN [address] [place] [address] DR HEMATOLOGY AND ONCOLOGY [place], [place] [address] Scheduled Orders Name Type Priority Associated Diagnoses Orde r Schedule CT Chest w Contrast Imaging Routine Malignant neoplasm of lower lobe, right bronchus or lung Secondary malignant neoplasm of bone Expected: 12/31/2023 (Approximate), Expires: 11/29/2024 documented as of this encounter Visit Diagnoses Diagnosis Malignant neoplasm of lower lobe, right bronchus or lung- Primary 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
--- OUTSIDE RECORDS SUMMARY | 2023-12-29 18:15 | XMS_ITS | Encounter Summary ---
Author Organization [facility] Address [facility] [place] [address] Care Team Providers Care Plc Engineer Name Role Phone Nikki Hermosillo AS400 DEVELOPER Primary Care Provider [phone] Encounter Details Date Type Department Care Team (Late st Contact Info) Description 12/08/2023 Orders Only Hematology/Oncology at [address] [phone] Cody Frazier MD [facility] [place] [address] Abscess of right lung with pneumonia, unspecified part of lung Social History Tobacco Use Types Packs/Day Years Used Date Smoking Tobacco: Former Cigarettes 0.3 42.9 S tarted: 1981 Smokeless Tobacco: Never Comments:10 per day- rarely Alcohol Use Standard Drinks/Week Comments Yes 1 (1 standard drink = 0.6 oz pur e alcohol) recently not as often [facility] Utilities Answer Date Recorded [place] [facility] [place] No 04/25/2023 DH IPV Inpatient [...] PM EST TH Visit (TeleHealth) Hematology/Oncology at [address] [phone] Cody Frazier MD [facility] [place] [address] Bea Grimes APRN [address] [place] [address] DR HEMATOLOGY AND ONCOLOGY [place], [place] [address] documented as of this encounter Visit Diagnoses Diagnosis Abscess of right lung with pneumonia, unspecified part of lung documented in this encounter Care Teams Plc Engineer Relationship Specialty Start Date End Date Nikki Hermosillo APRN [address] [place], [place] [address] PCP - General Family Medicine 04/25/23 documented as of this encounter
--- OUTSIDE RECORDS SUMMARY | 2023-12-29 18:15 | XMS_ITS | Encounter Summary ---
Author Organization [facility] Address [facility] [address] Care Team Providers Care Dishwasher Preparer Name Role Phone Nikki Hermosillo IGNACIA Primary Care Provider [phone] Encounter Details Date Type Department Care Team (Late st Contact Info) Description 12/29/2023 Orders Only Hematology/Oncology at [address] [phone] Bea Grimes APRN [address] [place] [address] DR [place] [address] Malignant neoplasm of lower lobe, right bronchus or lung Social History Tobacco Use Types Packs/Day Years Used Date Smoking Tobacco: Former Cigarettes 0.3 42.9 S tarted: 1981 Smokeless Tobacco: Never Comments:10 per day- rarely Alcohol Use Standard Drinks/Week Comments Yes 1 (1 standard drink = 0.6 oz pur e alcohol) recently not as often [facility] Utilities Answer Date Recorded In the past 12 months has e [employer], gas, oil, or water [employer] threatened to shut off services in your [...] slept in a correction (including now)? No 04/25/2023 DH IPV Inpatient [...] Progress Notes * Mago Mariee RN - 12/29/2023 9:37 AM EST Images from the original note were not included. Nadege Medel [facility] Hem Onc Nurse Alexis Pelayo needs a refill of morphine sulfate. He [facility]. Received prescription refill request via above phone call from patient for the following medication: morphine CR (MS Contin) 100 mg ER tablet Take 1 tablet by mouth 3 times daily. Review of chart suggests that this is an appropriate refill request - last Rx was written on 12/01/2023 for 84 tablets. Prescription pended and routed to Jaycee Grimes APRN for review and approval, if agreed. documented in this encounter Plan of Treatment Upcoming Encounters Date Type Department Care Team (Late Contact Info) Description 01/05/2024 2:30 PM EST TH Visit (TeleHealth) Hematology/Oncology at [address] [phone] Cody Frazier MD [facility] DR [place] [address] Bea Grimes APRN [address] [place] [address] DR HEMATOLOGY AND ONCOLOGY [place], [place] [address] documented as of this encounter Visit Diagnoses Diagnosis Malignant neoplasm of lower lobe, right bronchus or lung documented in this encounter Care Teams Dishwasher Preparer Relationship Specialty Start Date End Date Nikki Hermosillo [place] [place] [address] PCP - General Family Medicine 04/25/23 documented as of this encounter
--- OUTSIDE RECORDS SUMMARY | 2023-12-29 18:15 | XMS_ITS | Encounter Summary ---
Author Organization [facility] Address [facility] [place] [address] Care Team Providers Care Buckle Inspector Name Role Phone Nikki Hermosillo SHOW OPERATIONS SUPERVISOR Primary Care Provider [phone] Encounter Details Date Type Department Care Team (Late st Contact Info) Description 11/03/2023 Orders Only Hematology Oncology at [address] [phone] Nathaly Mart RN Malignant neoplasm of lower lobe, right bronchus or lung Social History Tobacco Use Types Packs/Day Years Used Date Smoking Tobacco: Former Cigarettes 0.3 42.9 S tarted: 1981 Smokeless Tobacco: Never Comments:10 per day- rarely Alcohol Use Standard Drinks/Week Comments Yes 1 (1 standard drink = 0.6 oz pur e alcohol) recently not as often [facility] Utilities Answer Date Recorded In [...] slept in a fpc (including now)? No 04/25/2023 DH IPV Inpatient [...] PM EST TH Visit (TeleHealth) Hematology/Oncology at [address] [phone] Cody Frazier MD [facility] DR [place] [address] Bea Grimes APRN [address] [place] [address] DR HEMATOLOGY AND ONCOLOGY [place], [place] [address] documented as of this encounter Visit Diagnoses Diagnosis Malignant neoplasm of lower lobe, right bronchus or lung documented in this encounter Care Teams Buckle Inspector Relationship Specialty Start Date End Date Nikki Hermosillo APRN [address] [place] [address] PCP - General Family Medicine 04/25/23 documented as of this encounter
--- OUTSIDE RECORDS SUMMARY | 2023-12-29 18:15 | XMS_ITS | Encounter Summary ---
Author Organization [facility] Address [facility] [place] [address] Care Team Providers Care Video Arcade Manager Name Role Phone Nikki Hermosillo IGNACIA Primary Care Provider [phone] Reason for Visit * Reason Onset Date Comments Shortness of Breath 10/22/2023 Ongoing SOB on exertion Encounter Details Date Type Department Care Team ([facility] Contact Info) Description 10/22/2023 Telephone Hematology/Oncology at [address] [phone] Nathaly Mart RN Shortness of Breath (Ongoing SOB on exertion ) Social History Tobacco Use Types Packs/Day Years Used Date Smoking Tobacco: Some Days Cigarettes 0.3 42.9 Started: 1981 Smokeless Tobacco: Never Comments:10 per day- rarely Alcohol Use Standard Drinks/Week Comments Yes 1 (1 standard drink = 0.6 oz pur e alcohol) recently not as often [facility] Utilities Answer Date Recorded In the past [...] in a senior living (including now)? No 04/25/2023 DH IPV Inpatient [...] Telephone Encounter - Nathaly Mart RN - 10/22/2023 1:01 PM EDT Alexis called to ask for a dilaudid refill; pened and signed by Jaycee Grimes APRN. Also he was c/o SOB with exertion, which he reports has been ongoing and almost feels like hyperventilating. He still thinks it is an infection although he took two rounds of abx. He reports his inhalers seem to help in the morning but by afternoon the breathing is worse. He has not left his apt since 09/15/23. His apt is on the third flood and he is worried about getting here for FUV on 10/26 and asked about home oxygen. Reviewed with Jaycee Grimes APRN. Discussed taking breaks when needed to catch breath. Let him know wecan do a walk test when he is here on Friday to see if he would qualify for home O2. He will try toget here for the FUV and will call with any worsening. He is also aware that if he is unable to getout of his apt he may need to call an ambulance for assistance if it gets worse. documented in this encounter Plan of Treatment Upcoming Encounters Date Type Department Care Team (Late st Contact Info) Description 01/05/2024 2:30 PM EST TH Visit (TeleHealth) Hematology/Oncology at [address] [phone] Cody Frazier MD [facility] DR HEMATOLOGY [place] [address] Bea Grimes APRN [address] [place] [address] DR HEMATOLOGY AND ONCOLOGY [place], [place] [address] documented as of this encounter Visit Diagnoses Not on filedocumented in this encounter Care Teams Video Arcade Manager Relationship Specialty Start Date End Date Nikki Hermosillo [place] [place] [address] PCP - General Family Medicine 04/25/23 documented as of this encounter
--- OUTSIDE RECORDS SUMMARY | 2023-12-29 18:15 | XMS_ITS | Encounter Summary ---
Author Organization [facility] Address [facility] [place] [address] Care Team Providers Care Admittance Attendant Name Role Phone Nikki Hermosillo IGNACIA Primary Care Provider [phone] Reason for Visit * Reason Onset Date Comments Other 12/08/2023 Coughing up ? Ab scess fluid Encounter Details Date Type Department Care Team (Late Contact Info) Description 12/08/2023 Telephone Hematology/Oncology at [address] [phone] Nathaly Mart RN Other (Coughing up ? Abscess fluid) Social History Tobacco Use Types Packs/Day Years [...] slept in a snf (including now)? No 04/25/2023 DH IPV Inpatient [...] Telephone Encounter - Nathaly Mart RN - 12/08/2023 10:21 AM EDT Alexis called to let us know that on Friday his abscess burst. He was coughing and had a congested feeling in his chest like mucus feeling. He then proceeded to start coughing up a white/chocolate milk like gritty fluid about 1/2 gallon over the weekend. He reports his breathing is much better and that his inhalers work much better now. Reviewed with Dr. Frazier. Abx, Augmentin, sent to [facility] scan 12/28. \ FUV 01/04. Reviewed with Alexis and let him know the script was sent to [facility]. Encouraged him to call back with any worsening or other questions or concerns. documented in this encounter Plan of Treatment Upcoming Encounters Date Type Department Care Team ([facility] Contact Info) Description 01/05/2024 2:30 PM EST TH Visit (TeleHealth) Hematology/Oncology at [address] [phone] Cody Frazier MD [facility] DR HEMATOLOGY [place] [address] Bea Grimes APRN [address] [place] [address] DR HEMATOLOGY AND ONCOLOGY [place], [place] [id number] documented as of this encounter Visit Diagnoses Not on filedocumented in this encounter Care Teams Admittance Attendant Relationship Specialty Start Date End Date Nikki Hermosillo APRN [address] [facility], [place] [id number] PCP - General Family Medicine 04/25/23 documented as of this encounter
--- OUTSIDE RECORDS SUMMARY | 2023-12-29 18:15 | XMS_ITS | Encounter Summary ---
Author Organization [facility] Address [facility] [place] [address] Care Team Providers Care Pipeline Maintenance Supervisor Name Role Phone Nikki Hermosillo APRN Primary Care Provider [phone] Encounter Details Date Type Department Care Team (Latest Contact Info) Description 10/27/2023 Travel Social History Tobacco Use Types Packs/Day Years Used Date Smoking Tobacco: Former Cigarettes 0.3 42.9 S tarted: 1982 Smokeless Tobacco: Never Comments:10 per day- rarely Alcohol Use Standard Drinks/Week Comments Yes 1 (1 standard drink = 0.6 oz pur e alcohol) recently not as often [facility] Utilities Answer Date Recorded In the past [...] in a skilled nursing (including now)? No 04/25/2023 DH IPV Inpatient [...] PM EST TH Visit (TeleHealth) Hematology/Oncology at [address] [phone] Cody Frazier MD [facility] DR HEMATOLOGY [place] [address] Bea Grimes APRN [address] [place] [address] DR HEMATOLOGY AND ONCOLOGY [place], [place] [address] documented as of this encounter Visit Diagnoses Not on filedocumented in this encounter Care Teams Pipeline Maintenance Supervisor Relationship Specialty Start Date End Date Nikki Hermosillo [place] [place] [address] PCP - General Family Medicine 04/25/23 documented as of this encounter
--- OUTSIDE RECORDS SUMMARY | 2023-12-29 18:15 | XMS_ITS | Encounter Summary ---
Author Organization [facility] Address [facility] [place] [address] Care Team Providers Care Flat Sorting Machine Clerk Name Role Phone Nikki Hermosillo COLDFUSION Primary Care Provider [phone] Encounter Details Date Type Department Care Team (Late st Contact Info) Description 10/22/2023 Orders Only Hematology Oncology at [address] [phone] Nathaly Mart RN Neoplasm related pain Social History Tobacco Use Types Packs/Day Years Used Date Smoking Tobacco: Some Days Cigarettes 0.3 42.9 Started: 1981 Smokeless Tobacco: Never Comments:10 per day- rarely Alcohol Use Standard Drinks/Week Comments Yes 1 (1 standard drink = 0.6 oz pur e alcohol) recently not as often [facility] Utilities Answer Date Recorded In [...] PM EST TH Visit (TeleHealth) Hematology/Oncology at [address] [phone] Cody Frazier MD [facility] DR [place]EMATOLOGY [place] [address] Bea Grimes APRN [address] [place] [address] DR [place] [address] documented as of this encounter Visit Diagnoses Diagnosis 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
--- OUTSIDE RECORDS SUMMARY | 2023-12-29 18:15 | XMS_ITS | Encounter Summary ---
Author Organization [facility] Address [facility] [place] [address] Care Team Providers Care Clinical Fellow Name Role Phone Nikki Hermosillo IGNACIA Primary Care Provider [phone] Reason for Visit * Reason Onset Date Comments Abnormal Labs 10/27/2023 Encounter Details Date Type Department Care Team (Late st Contact Info) Description 10/27/2023 Telephone Hematology/Oncology at [address] [phone] Mohini aCal RN Abnormal Labs Social History Tobacco Use Types Packs/Day Years Used Date Smoking Tobacco: Former Cigarettes 0.3 42.9 S tarted: 1981 Smokeless Tobacco: Never Comments:10 per day- rarely Alcohol Use Standard Drinks/Week Comments Yes 1 (1 standard drink = 0.6 oz pur e alcohol) recently not as often [place] Utilities Answer Date Recorded In the past [...] Miscellaneous Notes * Telephone Encounter - Mohini Caal, RN - 10/27/2023 10:39 AM EDT Critical lab value from [facility], plt 1.052, patient will be seen in clinic today at 1100 documented in this encounter Plan of Treatment Upcoming Encounters Date Type Department Care Team (Late st Contact Info) Description 01/05/2024 2:30 PM EST TH Visit (TeleHealth) Hematology/Oncology at [address] [phone] Cody Frazier MD [facility] DR HEMATOLOGY [place] [address] Bea Grimes APRN [address] [place] [address] DR HEMATOLOGY AND ONCOLOGY [place], [place] [id number] documented as of this encounter Visit Diagnoses Not on filedocumented in this encounter Care Teams Clinical Fellow Relationship Specialty Start Date End Date Nikki Hermosillo, BILLPOSTER [address] [place] [address] PCP - General Family Medicine 04/25/23 documented as of this encounter
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
--- OUTSIDE RECORDS SUMMARY | 2023-12-29 18:15 | XMS_ITS | Encounter Summary ---
Author Organization [facility] Address [facility] [place] [address] Care Team Providers Care Puppy Walker Name Role Phone Nikki Hermosillo PATIENT ADMITTING CLERK Primary Care Provider [phone] Encounter Details Date Type Department Care Team (Late st Contact Info) Description 12/01/2023 Orders Only Hematology/Oncology at [address] [phone] Nathaly Mart RN Malignant neoplasm of lower lobe, right bronchus or lung Social History Tobacco Use Types Packs/Day Years Used Date Smoking Tobacco: Former Cigarettes 0.3 42.9 S tarted: 1981 Smokeless Tobacco: Never Comments:10 per day- rarely Alcohol Use Standard Drinks/Week Comments Yes 1 (1 standard drink = 0.6 oz pur e alcohol) recently not as often [facility] Utilities Answer Date Recorded In [...] PM EST TH Visit (TeleHealth) Hematology/Oncology at [address] [phone] Cody Frazier MD [facility] DR [place] [address] Bea Grimes APRN [address] [place] [address] [place] [address] documented as of this encounter Visit Diagnoses Diagnosis Malignant neoplasm of lower lobe, right bronchus or lung documented in this encounter Care Teams Puppy Walker Relationship Specialty Start Date End Date Nikki Hermosillo APRN [address] [place] [address] PCP - General Family Medicine 04/25/23 documented as of this encounter
--- OUTSIDE RECORDS SUMMARY | 2023-12-29 18:15 | XMS_ITS ---
Author Organization [facility] Address [facility] [place] [address] Care Team Providers Care Steel Post Installer Name Role Phone Bay Nikki Winters APRN Primary Care Provider [phone] Active Problems Problem Noted Date Diagnosed Date NSTEMI (non-ST elevated myocardial infarction) 0 04/23/2023 Neoplasm related pain 08/05/2022 Gastroesophageal reflux 05/22/2022 Secondary malignant neoplasm of bone 07/17/2021 Medication management 07/17/2021 Malignant neoplasm of lower lobe, right bronchus or lung 07/05/2021 Cancer Staging:Clinical stage from 07/18/2021:Stage IVB(cT3, cN2, cM1c) - Signed by Cody Frazier MD on 07/18/2021 Lung mass 06/26/2021 Current Oncology Plans [facility] AMB ONC NONSMALL CELL LUNG CANCER - [...] in sodium chloride 0.9% 136 mL infusion [facility] HYDRATION / ELECTROLYTES / NAUSEA & VOMITING* Plan Start Date:02/18/2022 Plan Provider:LaRoza, Bea A, ROOFING FOREMAN Linked Problems Malignant neoplasm of lower lobe, [...] treatments are documented for this patient in [facility]. Treatments may have been administered in another system.
--- OUTSIDE RECORDS SUMMARY | 2023-12-29 18:15 | XMS_ITS | Encounter Summary ---
Author Organization [facility] Address [facility] [place] [address] Care Team Providers Care Picker Tender Helper Name Role Phone Nikki Hermosillo SHOP TEACHER Primary Care Provider [phone] Encounter Details Date Type Department Care Team (Late st Contact Info) Description 12/29/2023 Telephone Hematology/Oncology at [address] [phone] Mago Mariee RN Social History Tobacco Use Types Packs/Day Years Used Date Smoking Tobacco: Former Cigarettes 0.3 42.9 S tarted: 1981 Smokeless Tobacco: Never Comments:10 per day- rarely Alcohol Use Standard Drinks/Week Comments Yes 1 (1 standard drink = 0.6 oz pur e alcohol) recently not as often [facility] Utilities Answer Date Recorded [...] Telephone Encounter - Mago Mariee RN - 12/29/2023 2:01 PM EST Images from the original note were not included. Received call from [facility] with critical plt count of [phone]. Full labs below. Patient is scheduled to see Dr. Frazier with CT scan on 01/04. Dr. Frazier notified of labs. documented in this encounter Plan of Treatment Upcoming Encounters Date Type Department Care Team (Late st Contact Info) Description 01/05/2024 2:30 PM EST TH Visit (TeleHealth) Hematology/Oncology at [address] [phone] Cody Frazier MD [facility] DR HEMATOLOGY [place] [address] Bea Grimes APRN [address] [place] [address] DR HEMATOLOGY AND ONCOLOGY [place], [place] [id number] documented as of this encounter Visit Diagnoses Not on filedocumented in this encounter Care Teams Picker Tender Helper Relationship Specialty Start Date End Date Nikki Hermosillo, SHOP TEACHER [facility] [place] [address] PCP - General Family Medicine 04/25/23 documented as of this encounter
--- OUTSIDE RECORDS SUMMARY | 2023-12-29 18:15 | XMS_ITS | Clinical Summary ---
Author Organization [facility] Address [facility] [place] [address] Care Team Providers Care Pig Conveyor Operator Name Role Phone Nikki Hermosillo PRECISION CROP MANAGER Primary Care Provider [phone] Allergies Active Allergy Reactions Criticality Noted Date [...] for Nausea. 30 tablet 3 07/16/2021 Active Additional Information Patient not taking.Reported on 10/27/2023 omeprazole (PriLOSEC) [address] capsuleIndications :Gastroesophageal reflux disease, unspecified whether esophagitis present Take [...] daily as needed. 14 each 04/26/2023 Active rosuvastatin (Crestor) 10 mg tablet Take 1 tablet by mouth every evening. 90 tablet 3 04/26/2023 Active senna-docusate (Pericolace) 8.6-50 mg Tablet Take 1 tablet by mouth daily. 60 tablet 11 04/26/2023 Active Additional Information Patient not taking.Reported on 06/02/2023 droNABinoL (Marinol) 10 mg capsuleIndications :Chemotherapy induced nausea and vomiting Take 1 capsule by mouth 2 times daily (before meals). 60 capsule 3 06/24/2023 Active Additional Information Patient not taking.Reported on 07/21/2023 pregabalin (Lyrica) 50 mg capsuleIndications :Neoplasm related pain,Malignant neoplasm of lower lobe, right bronchus or lung,Secondary malignant neoplasm of bone TAKE ONE CAPSULE BY MOUTH TWICE A DAY 60 capsule 5 07/21/2023 Active amoxicillin-clavul anate (Augmentin) 875-125 mg tablet Take 1 tablet by mouth 2 times daily for 21 days. 42 tablet 12/08/2023 12/29/2023 Active HYDROmorphone (Dilaudid) 4 mg tabletIndications: Neoplasm related pain Take 1 tablet by mouth every 6 hours as needed for Pain. 120 tablet 12/22/2023 Active morphine CR (MS Contin) 100 mg ER tabletIndications: Malignant neoplasm of lower lobe, right bronchus or lung Take 1 tablet by mouth 3 times daily. 84 tablet 12/29/2023 Active Active Problems Problem Noted Date Diagnosed [...] Encounters Date Type Department Care Team Description 12/29/2023 Telephone Hematology/Oncolog y at [address] [phone] Mago Mariee RN 12/29/2023 Orders Only Hematology/Oncolog y at [address] [place] [address] Bea Grimes, PRECISION CROP MANAGER Malignant neoplasm of lower lobe, right bronchus or lung 12/22/2023 Telephone Hematology/Oncolog y at [address] [phone] Bea Grimes APRN 12/08/2023 Telephone Hematology/Oncolog y at [address] [phone] Nathaly Mart RN Other (Coughing up ? Abscess fluid) 12/08/2023 Orders Only Hematology/Oncolog y at [address] [phone] Cody Frazier MD Abscess of right lung with pneumonia, unspecified part of lung 12/01/2023 Orders Only Hematology/Oncolog y at [address] [phone] Nathaly Mart RN Malignant neoplasm of lower lobe, right bronchus or lung 11/27/2023 Telephone [place] [address] Cody Frazier MD 11/20/2023 Orders Only Hematology Oncology at [address] [phone] Deanne Nelson RN Neoplasm related pain 11/17/2023 3:00 PM EDT TH Visit (TeleHealth) Hematology/Oncolog y at [address] [phone] Cody Frazier MD LaRoza, Stephanie A, APRN Malignant neoplasm of lower lobe, right bronchus or lung 11/11/2023 9:40 PM EDT Ancillary Procedure Radiology Library at [facility] [place] [address] Cody Frazier MD 11/03/2023 Orders Only Hematology Oncology at [address] [phone] Nathaly Mart, RN Malignant neoplasm of lower lobe, right bronchus or lung 10/27/2023 11:00 AM EDT Office Visit Hematology/Oncolog y at [address] [phone] Cody Frazier MD LaRoza, Stephanie A, IGNACIA Malignant neoplasm of lower lobe, right bronchus or lung; Secondary malignant neoplasm of bone 10/27/2023 Travel 10/27/2023 Telephone Hematology/Oncolog y at [address] [phone] Mohini Caal RN Abnormal Labs 10/22/2023 Telephone Hematology/Oncolog y at [address] [phone] Nathaly Mart RN Shortness of Breath (Ongoing SOB on exertion ) 10/22/2023 Orders Only Hematology Oncology at [address] [phone] Nathaly Mart RN Neoplasm related pain 10/03/2023 Telephone Hematology/Oncolog y at [address] [address] Mago Mariee RN 10/01/2023 Orders Only Hematology/Oncolog y at [address] [address] Bea Grimes APRN Malignant neoplasm of lower lobe, right bronchus or lung 09/29/2023 Orders Only Hematology/Oncolog y at [address] [phone] Cody Frazier MD Malignant neoplasm of lower lobe, right bronchus or lung from Last 3 Months Family History Medical [...] pur e alcohol) recently not as often [facility] Utilities Answer Date Recorded In the [...] Mass Index 19.86 10/27/2023 11:02 AM EDT Plan of Treatment Upcoming Encounters Date Type Department Care Team (Late st Contact Info) Description 01/05/2024 2:30 PM EST TH Visit (TeleHealth) Hematology/Oncology at [address] [phone] Cody Frazier MD [facility] DR [place]Y [place] [address] Bea Grimes APRN [address] [place] [address] DR HEMATOLOGY AND ONCOLOGY [place], [place] [address] Health Maintenance Due Date Last Done Comments CT Colonography 1971 Colonoscopy 1971 Colorectal Cancer Screening 1971 FIT DNA 1971 FIT 1971 Sigmoidoscopy (10 year) with FIT yearly 1971 Sigmoidoscopy 1971 Pneumococcal Vaccine: At-Risk 5-64yrs (1 of 2 - PCV) 0 10/08/1977 Hepatitis B vaccine (0-59 yrs) (1) 10/08/1990 Tetanus/Diphtheria/Pertussis Vaccines (1 - Tdap) 10/08 Zoster vaccine (1 of 2) 10/08/2021 Covid-19 Vaccine (1 - season) 2023 Influenza (Flu) vaccine (1 o f 1 - Influenza standard series) 10/12/2023 Lipid Screening Discontinued 04/24/2023 HIV screen Completed 04/26/2023 Hepatitis C Screening Completed 04/26/2023 Procedures Procedure Name Priority Date/Time Associated Diagnosis Comments FILM LIBRARY STORAGE ONLY CT CHEST Routine 11/11/2023 9:38 PM EDT DIAGNOSTIC RADIOLOGY SCAN 11/11/2023 12:[address] SCAN (SCAN) 11/11/2023 12:00 AM EDT LAB SCAN 10/27/2023 12:00 AM EDT HIV SCREEN, 4TH GENERATION ([facility]/CGP/APD/NLH) Routine 04/26/2023 12:30 AM EDT HEPATITIS C ANTIBODY Routine 04/26/2023 12:30 AM EDT LIPID PANEL (REFLEX DIRECT LDL) Routine 04/24/2023 4:29 AM EDT from Last 3 Months or Most Recently Relevant to Health Maintenance Results * Film Library- Storage Only CT Chest (11/11/2023 9:38 PM EDT) Narrative [facility] - 11/11/2023 9:38 PM EDT This exam is auto-finalizing. It's purpose is for storage only. Cody Frazier MD G FILM LIBRARY ORD ERABLES [place], [place] * Scan Doc: CT Scan (11/11/2023 12:00 AM EDT) Anatomical Region Laterality Modality Other Narrative 11/11/2023 12:00 AM EDT Ordered by an unspecified provider. Scanning Provider MEDIA MGR SCAN EXT O RDR/RSLT * Scan Doc: Diagnostic Radiology (11/11/2023 12:00 AM EDT) Anatomical Region Laterality Modality Other Narrative 11/11/2023 12:00 AM EDT Ordered by an unspecified provider. Scanning Provider MEDIA MGR SCAN EXT O RDR/RSLT * Scan Doc: Lab (10/27/2023 12:00 AM EDT) Narrative 10/27/2023 12:00 AM EDT Ordered by an unspecified provider. Scanning Provider MEDIA MGR SCAN EXT O RDR/RSLT * Hepatitis C Antibody (04/26/2023 12:30 AM EDT) Hepatitis C Antibody Negative Negative [facility] Blood 04/26/2023 12:3 0 AM EDT 04/26/2023 1:01 AM EDT Narrative Resulting Agency Comment Spec In Lab Farideh Machado MD CHEMISTRY ORDERABL ES Performing Organization Address [facility] [address]/ZIP Co de Phone Number [facility] [place] [address] * HIV Screen, 4th Generation ([facility]/CGP/APD/NLH) (04/26/2023 12:30 AM EDT) Pathologist [facility] HIV Ab/Ag Screen Negative Negative [facility] Comment: This 4th Generation HIV test [...] HIV Comment Low Risk of HIV Infection [facility] Blood 04/26/2023 12:3 0 AM EDT 04/26/2023 1:01 AM EDT Narrative Resulting Agency Comment Spec In Lab Farideh Machado MD CHEMISTRY ORDERABL ES Performing Organization Address City/[facility] [address]/ZIP Co de Phone Number [facility] [place] [address] * Lipid Panel (Reflex Direct LDL) (04/24/2023 4:29 AM EDT) [facility] Signature Cholesterol, Total 135 mg/dL [facility] Comment: Desirable: ? <200 mg/dL Borderline High: 200-239 mg/dL Higher: ?>iq=904 mg/dL Triglyceride 76 mg/dL [facility] Comment: Normal: ?<150 mg/dL Borderline High: 150-199 mg/dL High: ?200-499 mg/dL Very High: ? >yt=495 mg/dL HDL Cholesterol 47 mg/dL [facility] Comment: Females: High Risk: <50 mg/dL Males: High Risk: <40 mg/dL LDL Cholesterol 73 mg/dL [facility] Comment: Desirable: ? <100 mg/dL Above Desirable: 100-129 mg/dL Borderline High: 130-159 mg/dL High: ?160-189 mg/dL Very High: ? >ys=732 mg/dL Cholesterol/HDL Ratio 2.9 ratio [facility] Lipid Interpretation See Note [facility] Comment: It is important to review [...] individuals with atherosclerotic cardiovascular disease (ASCVD)or LDL >wj=422 mg/dL, use a high-intensity statin (40-80 mg [...] In Lab Vazquez Lan [place] [address] from Last 3 Months or Most Recently Relevant to Health Maintenance Advance Directives Documents on File Type Date Recorded Patient Artist Model Expl anation DNR/Out of hospital 05/02/2023 4:34 PM [place] DNR 05/01/23 * Do NOT Attempt CPR - Inpatient (Latest Code Status on File) Date Activated Date Inactivated Comments 04/24/2023 8:42 AM 04/26/2023 2:52 PM Question Answer Comments Code Status decision made by: Patient Content of discussion: Pt wishes to be D NR but okay to intubate for respiratory failure. He is pending [facility] and willing to defer DNR status for [...] PRE Arrest Intubation Permitted? No Care Teams Pig Conveyor Operator Relationship Specialty Start Date End Date Nikki Hermosillo [place] [address] PCP - General Family Medicine 04/25/23
--- OUTSIDE RECORDS SUMMARY | 2023-12-29 18:15 | XMS_ITS | Encounter Summary ---
Author Organization [facility] Address [facility] [place] [address] Care Team Providers Care Molding Engineer Name Role Phone Nikki Hermosillo IGNACIA Primary Care Provider [phone] Encounter Details Date Type Department Care Team (Late st Contact Info) Description 12/22/2023 Telephone Hematology/Oncology at [address] [phone] Bea Grimes APRN [address] [place] [address] [place] [address] Social History Tobacco Use Types Packs/Day Years Used Date Smoking Tobacco: Former Cigarettes 0.3 42.9 S tarted: 1981 Smokeless Tobacco: Never Comments:10 per day- rarely Alcohol Use Standard Drinks/Week Comments Yes 1 (1 standard drink = 0.6 oz pur e alcohol) recently not as often [facility] Utilities Answer Date Recorded In [...] Telephone Encounter - Mohini Caal RN - 12/22/2023 10:54 AM EST ----- Message from [employer] sent at 12/22/2023 8:28 AM EST ----- Regarding: RX refill Alexis called in to get a refill on his HYDROmorphone (Dilaudid) 4 mg tablet. 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
--- OUTSIDE RECORDS SUMMARY | 2023-12-29 18:15 | XMS_ITS | Encounter Summary ---
Author Organization [facility] Address [facility] [place] [address] Care Team Providers Care Pen Maker Name Role Phone Nikki Hermosillo IGNACIA Primary Care Provider [phone] Encounter Details Date Type Department Care Team (Late st Contact Info) Description 11/17/2023 3:00 PM EDT TH Visit (TeleHealth) Hematology/Oncology at [address] [phone] Cody Frazier MD [facility] DR HEMATOLOGY [place] [address] Bea Grimes APRN [address] [place] [address] DR HEMATOLOGY AND ONCOLOGY [place], [place] [id number] Malignant neoplasm of lower lobe, right bronchus or lung Social History Tobacco Use Types Packs/Day Years Used Date Smoking Tobacco: Former Cigarettes 0.3 42.9 S tarted: 1981 Smokeless Tobacco: Never Comments:10 per day- rarely Alcohol Use Standard Drinks/Week Comments Yes 1 (1 standard drink = 0.6 oz pur e alcohol) recently not as often [facility] Utilities Answer Date Recorded In the [...] as of this encounter Progress Notes * Cody Frazier MD - 11/17/2023 3:00 PM EDT Images from the original note were not included. Hematology & Medical Oncology [facility] Cancer [address] [phone] Alexis Pelayo is being seen for the evaluation of lung cancer. Assessment & Plan: Alexis Pelayo is a 53 y.o. male patient with a past medical history significant for COPD, a [id number] smoking history, chronic migraine headaches diagnosed with [...] would favor infectious process though hard to tel. Clinically he feels better but I am concerned about the fin dings on the CT scan that I personally reviewed. - Will review with thoracic surgery at [facility] and then close the loop with Cornelius # Episode of acute hypoxic resp failure [...] establish with them Cody Frazier MD, MS 11/17/2023 Medical Oncology & Hematology [facility] Cancer [facility] CC: TALK WITH URGERY HPI/Interval History/Subjective: Last seen 10/27/2023 Feeling better. Has gained some weight. No fevers. Coughed up a lot of stuff but now its normal. Breathing is better. Can take a full deep breath. No new pains Not eating BUT does feel like he [...] Social History/Support Network: Home situation: [place]. Came up here because of family Has a sister Kristine Brantley who lives [place] who is his DPOA. 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 The biopsy may not be appliance service representative of the clinical mass lesion. Step levels were examine 8.09.01 Due to progression started carboplatin/pemetrexed 11.12.22 Response to treatment on restage after 2 cylces 10.11 C3 12.09.22 C4 11.23 03.03.23 Continued response on scan 4..24 CT scan -stable. No progression 07.18.23 PET scan 8.07.[address] Chest 11/20/2022 12:48 PM 12/09/2022 [...] Comments) Patient reports agitation and insomnia Medications 10/27/23 1116 Medication Sig Taking? morphine CR (MS Contin) 100 mg ER tablet Take 1 tablet by mouth 3 times daily. HYDROmorphone (Dilaudid) 4 mg tablet Take 1 tablet by mouth every 6 hours as needed for Pain. pregabalin (Lyrica) 50 mg capsule TAKE ONE [...] 17 g by mouth daily as needed. rosuvastatin (Crestor) 10 mg tablet Take 1 [...] for Nausea. Patient not taking: Reported on 10/27/2023 acetaminophen (Tylenol) 500 mg Tablet Take 1,000 [...] Exam: Wt Readings from Last 3 Encounters: 10/27/23 64.5 kg (142 lb 3.2 oz) 07/21/23 73.3 kg (161 lb 9.6 oz) 06/02/23 70.6 kg (155 lb 9.6 oz) Temp Readings from Last 3 Encounters: 10/27/23 36.3 ??C (97.3 ??F) (Temporal) 07/21/23 36.5 ??C (97.7 ??F) (Temporal) 06/02/23 37.1 ??C (98.7 ??F) (Temporal) BP Readings from Last 3 Encounters: 10/27/23 133/82 07/21/23 132/78 06/02/23 140/85 Pulse Readings from Last 3 Encounters: 10/27/23 (!) 126 07/21/23 82 06/02/23 (!) 109 There is no height or weight on file to calculate BSA. Wt Readings from Last 3 Encounters: 10/27/23 64.5 kg (142 lb 3.2 oz) 07/21/23 73.3 kg (161 lb 9.6 oz) 06/02/23 70.6 kg (155 lb 9.6 oz) KPS Score ECOG Grade [...] from 2.9 TSH 1.82 Free T4 pending 8..24 White blood cell count 15.34 with an ANC of 12.30 hemoglobin 12.1 platelet count 549,000 Sodium 136 potassium 3.7 chloride 98 BUN 4 creatinine 0.8 glucose 116 calcium 9.2 magnesium 1.9 total bilirubin 0.17 AST 13 ALT 19 alk phos 69 albumin 2.9 down from 4.6 in July TSH 0.96 Free T41.35 Review of Imaging Data: 11.11.23 803.03.23 Personally reviewed as above. 12.23.22 CT Chest [...] Contact Info) Description 01/05/2024 2:30 PM EST Visit (TeleHealth) Hematology/Oncology at [address] [phone] Cody Frazier MD [facility] DR HEMATOLOGY [place] [address] Bea Grimes APRN [address] [place] [address] DR HEMATOLOGY AND ONCOLOGY [place], [place] [address] documented as of this encounter Visit Diagnoses Diagnosis Malignant neoplasm of lower lobe, right bronchus or lung documented in this encounter Care Teams Pen Maker Relationship Specialty Start Date End Date Nikki Hermosillo APRN [address] [place], [place] [address] PCP - General Family Medicine 04/25/23 documented as of this encounter
--- OUTSIDE RECORDS SUMMARY | 2023-12-29 18:15 | XMS_ITS | Encounter Summary ---
Author Organization [facility] Address [facility] [place] [address] Care Team Providers Care Piped Pocket Machine Operator Name Role Phone Nikki Hermosillo IGNACIA Primary Care Provider [phone] Encounter Details Date Type Department Care Team (Late st Contact Info) Description 11/20/2023 Orders Only Hematology Oncology at [address] [phone] Deanne Nelson RN Neoplasm related pain Social History Tobacco Use Types Packs/Day Years Used Date Smoking Tobacco: Former Cigarettes 0.3 42.9 S tarted: 1981 Smokeless Tobacco: Never Comments:10 per day- rarely Alcohol Use Standard Drinks/Week Comments Yes 1 (1 standard drink = 0.6 oz pur e alcohol) recently not as often [facility] Utilities Answer Date Recorded In [...] PM EST TH Visit (TeleHealth) Hematology/Oncology at [address] [phone] Cody Frazier MD [facility] DR [place] [address] Bea Grimes APRN [address] [place] [address] DR HEMATOLOGY AND ONCOLOGY [place], [place] [address] documented as of this encounter Visit Diagnoses Diagnosis Neoplasm related pain Neoplasm related pain (acute) (chronic) documented in this encounter Care Teams Piped Pocket Machine Operator Relationship Specialty Start Date End Date Nikki Hermosillo APRN [address] [place], [place] [address] PCP - General Family Medicine 04/25/23 documented as of this encounter
--- OUTSIDE RECORDS SUMMARY | 2023-12-29 18:15 | XMS_ITS | Encounter Summary ---
Author Organization [facility] Address [facility] [place] [address] Care Team Providers Care Impersonator Character Name Role Phone Nikki Hermosillo APRN Primary Care Provider [phone] Encounter Details Date Type Department Care Team (Late st Contact Info) Description 11/11/2023 9:40 PM EDT Ancillary Procedure Radiology Library at [facility] ([place] [phone] Cody Frazier MD [facility] HEMATOLOGY [place] [address] Social History Tobacco Use Types Packs/Day Years Used Date Smoking Tobacco: Former Cigarettes 0.3 42.9 S tarted: 1980 Smokeless Tobacco: Never Comments:10 per day- rarely Alcohol Use Standard Drinks/Week Comments Yes 1 (1 standard drink = 0.6 oz pur e alcohol) recently not as often [facility] Utilities Answer Date Recorded In [...] in a mcc (including now)? No 04/25/2023 IPV Inpatient Questions [...] PM EST TH Visit (TeleHealth) Hematology/Oncology at [address] [phone] Cody Frazier MD [facility] DR HEMATOLOGY [place] [address] Bea Grimes APRN [address] [place] [address] DR HEMATOLOGY AND ONCOLOGY [place], [place] [address] documented as of this encounter Procedures Procedure Name Priority Date/Time Associated Diagnosis Comments FILM LIBRARY STORAGE ONLY CT CHEST Routine 11/11/2023 9:38 PM EDT documented in this encounter Results * Film Library- Storage Only CT Chest (11/11/2023 9:38 PM EDT) Narrative [facility] - 11/11/2023 9:38 PM EDT This exam is auto-finalizing. It's purpose is for storage only. Cody Frazier MD IM FILM LIBRARY ORD ERABLES [place], [place] documented in this encounter Visit Diagnoses Not on filedocumented in this encounter Care Teams Impersonator Character Relationship Specialty Start Date End Date Nikki Hermosillo, EDITOR MAGAZINE [facility] [place] [address] PCP - General Family Medicine 04/25/23 documented as of this encounter
--- OUTSIDE RECORDS SUMMARY | 2023-12-29 18:16 | XMS_ITS | Encounter Summary ---
Author Organization [facility] Address [facility] [place] [address] Care Team Providers Care Medicare Compliance Auditor Name Role Phone Nikki Hermosillo IGNACIA Primary Care Provider [phone] Encounter Details Date Type Department Care Team (Late st Contact Info) Description 07/14/2023 Telephone Hematology/Oncology at [address] [phone] Bea Grimes APRN [address] [place] [address] DR [place] [address] Social History Tobacco Use Types Packs/Day Years Used Date Smoking Tobacco: Some Days Cigarettes 0.3 42.9 Started: 1981 Smokeless Tobacco: Never Comments:10 per day- rarely Alcohol Use Standard Drinks/Week Comments Yes 1 (1 standard drink = 0.6 oz pur e alcohol) recently not as often [facility] Utilities Answer Date Recorded In [...] PM EST TH Visit (TeleHealth) Hematology/Oncology at [address] [phone] Cody Frazier MD [facility] DR HEMATOLOGY [place] [address] Bea Grimes APRN [address] [place] [address] DR HEMATOLOGY AND ONCOLOGY [place], [place] [address] documented as of this encounter Visit Diagnoses Diagnosis Malignant neoplasm of lower lobe, right bronchus or lung documented in this encounter Care Teams Medicare Compliance Auditor Relationship Specialty Start Date End Date Nikki Hermosillo APRN [address] [place], [place] [address] PCP - General Family Medicine 04/25/23 documented as of this encounter
--- OUTSIDE RECORDS SUMMARY | 2023-12-29 18:16 | XMS_ITS | Encounter Summary ---
Author Organization Replaced By [facility] Address [facility] [place] [address] Care Team Providers Care Toolmaker Name Role Phone Nikki Hermosillo IGNACIA Primary Care Provider [phone] Encounter Details Date Type Department Care Team (Late st Contact Info) Description 04/25/2023 Orders Only Hematology/Oncology at [address] [phone] Bea Grimes APRN [address] [place] [address] DR [place] [address] Neoplasm related pain Social History Tobacco Use Types Packs/Day Years Used Date Smoking Tobacco: Some Days Cigarettes 0.3 42.9 Started: 1981 Smokeless Tobacco: Never Comments:10 per day- rarely Alcohol Use Standard Drinks/Week Comments Yes 1 (1 standard drink = 0.6 oz pur e alcohol) recently not as often [facility] Utilities Answer Date Recorded In the [...] PM EST TH Visit (TeleHealth) Hematology/Oncology at [address] [phone] Cody Frazier MD [facility] DR [place] [address] Bea Grimes APRN [address] [place] [address] DR HEMATOLOGY AND ONCOLOGY [place], [place] [address] documented as of this encounter Visit Diagnoses Diagnosis Neoplasm related pain Neoplasm related pain (acute) (chronic) documented in this encounter Care Teams Toolmaker Relationship Specialty Start Date End Date Nikki Hermosillo APRN [address] [place], [place] [address] PCP - General Family Medicine 04/25/23 documented as of this encounter
--- OUTSIDE RECORDS SUMMARY | 2023-12-29 18:16 | XMS_ITS | Encounter Summary ---
Author Organization [facility] Address [facility] [place] [address] Care Team Providers Care Button Riveter Name Role Phone Nikki Hermosillo IGNACIA Primary Care Provider [phone] Encounter Details Date Type Department Care Team (Late st Contact Info) Description 07/21/2023 Orders Only Hematology/Oncology at [address] [phone] Bea Grimes APRN [address] [place] [address] [place] [address] Malignant neoplasm of lower lobe, right bronchus or lung; High risk medication use Social History Tobacco Use Types Packs/Day Years Used Date Smoking Tobacco: Some Days Cigarettes 0.3 42.9 Started: 1981 Smokeless Tobacco: Never Comments:10 per day- rarely Alcohol Use Standard Drinks/Week Comments Yes 1 (1 standard drink = 0.6 oz pur e alcohol) recently not as often [facility] Utilities Answer Date Recorded In the past 12 months has [employer], gas, oil, or water [employer] threatened to shut off services in your [...] PM EST TH Visit (TeleHealth) Hematology/Oncology at [address] [phone] Cody Frazier MD [facility] DR HEMATOLOGY [place] [address] Bea Grimes APRN [address] [place] [address] DR HEMATOLOGY AND ONCOLOGY [place], [place] [phone] Scheduled Orders Name Type Priority Associated Diagnoses [...] medications documented in this encounter Care Teams Button Riveter Relationship Specialty Start Date End Date Nikki Hermosillo, CONCRETE TESTER [address] [place] [address] PCP - General Family Medicine 04/25/23 documented as of this encounter
--- OUTSIDE RECORDS SUMMARY | 2023-12-29 18:16 | XMS_ITS | Encounter Summary ---
Author Organization [facility] Address [facility] [place] [address] Care Team Providers Care Pill Machine Operator Name Role Phone Nikki Hermosillo APRN Primary Care Provider [phone] Encounter Details Date Type Department Care Team (Latest Contact Info) Description 07/21/2023 Travel Social History Tobacco Use Types Packs/Day Years Used Date Smoking Tobacco: Some Days Cigarettes 0.3 42.9 Started: 1981 Smokeless Tobacco: Never Comments:10 per day- rarely Alcohol Use Standard Drinks/Week Comments Yes 1 (1 standard drink = 0.6 oz pur e alcohol) recently not as often [facility] Utilities Answer Date Recorded In [...] PM EST TH Visit (TeleHealth) Hematology/Oncology at [address] [phone] Cody Frazier MD [facility] DR [place] [address] Bea Grimes APRN [address] [place] [address] DR HEMATOLOGY AND ONCOLOGY [place], [place] [address] documented as of this encounter Visit Diagnoses Not on filedocumented in this encounter Care Teams Pill Machine Operator Relationship Specialty Start Date End Date Nikki Hermosillo APRN [address] [place], [place] [address] PCP - General Family Medicine 04/25/23 documented as of this encounter
--- OUTSIDE RECORDS SUMMARY | 2023-12-29 18:16 | XMS_ITS | Encounter Summary ---
Author Organization [facility] Address [facility] [place] [address] Care Team Providers Care Kennel Manager Dog Track Name Role Phone Nikki Hermosillo IGNACIA Primary Care Provider [phone] Encounter Details Date Type Department Care Team (Late st Contact Info) Description 08/11/2023 Telephone Hematology/Oncology at [address] [phone] Bea Grimes APRN [address] [place] [address] DR HEMATOLOGY [place] [address] Social History Tobacco Use Types [...] PM EST TH Visit (TeleHealth) Hematology/Oncology at [address] [phone] Cody Frazier MD [facility] DR HEMATOLOGY [place] [address] Bea Grimes APRN [address] [place] [address] DR HEMATOLOGY AND ONCOLOGY [place], [place] [address] documented as of this encounter Visit Diagnoses Diagnosis Malignant neoplasm of lower lobe, right bronchus or lung documented in this encounter Care Teams Kennel Manager Dog Track Relationship Specialty Start Date End Date Nikki Hermosillo APRN [address] [place], [place] [address] PCP - General Family Medicine 04/25/23 documented as of this encounter
--- OUTSIDE RECORDS SUMMARY | 2023-12-29 18:16 | XMS_ITS | Encounter Summary ---
Author Organization [facility] Address [facility] [place] [address] Care Team Providers Care Metal Sander And Finisher Name Role Phone Nikki Hermosillo VISION IMPAIRED TEACHER Primary Care Provider [phone] Reason for Visit * Reason Comments Medication Refill Encounter Details Date Type Department Care Team ([facility] st Contact Info) Description 08/12/2023 Refill Hematology/Oncology at [address] [phone] Cody Frazier MD [facility] DR [place] [address] Social History Tobacco Use Types Packs/Day Years Used Date Smoking Tobacco: Some Days Cigarettes 0.3 42.9 Started: 1981 Smokeless Tobacco: Never Comments:10 per day- rarely Alcohol Use Standard Drinks/Week Comments Yes 1 (1 standard drink = 0.6 oz pur e alcohol) recently not as often [facility] Utilities Answer Date Recorded In the [...] PM EST TH Visit (TeleHealth) Hematology/Oncology at [address] [phone] Cody Frazier MD [facility] [place] [address] Bea Grimes APRN [address] [place] [address] DR HEMATOLOGY AND ONCOLOGY [place], [place] [address] documented as of this encounter Visit Diagnoses Not on filedocumented in this encounter Care Teams Metal Sander And Finisher Relationship Specialty Start Date End Date Nikki Hermosillo APRN [address] [place], [place] [address] PCP - General Family Medicine 04/25/23 documented as of this encounter
--- OUTSIDE RECORDS SUMMARY | 2023-12-29 18:16 | XMS_ITS | Encounter Summary ---
Author Organization [facility] Address [facility] [place] [address] Care Team Providers Care Foreign Law Consultant Name Role Phone Nikki Hermosillo APRN Primary Care Provider [phone] Encounter Details Date Type Department Care Team (Late st Contact Info) Description 04/25/2023 Telephone Cardiology at [facility] [place] [phone] Annette Terry, RN Social History Tobacco Use Types Packs/Day Years Used Date Smoking Tobacco: Some Days Cigarettes 0.3 42.9 Started: 1981 Smokeless Tobacco: Never Comments:10 per day- rarely Alcohol Use Standard Drinks/Week Comments Yes 1 (1 standard drink = 0.6 oz pur e alcohol) recently not as often [facility] Utilities Answer Date Recorded In the past [...] currentlyadmitted. Re-directed lab staff to page the Post Anesthesia Care Unit Nurse where pt is currently admitted. documented in this encounter Plan of Treatment Upcoming Encounters Date Type Department Care Team (Late st Contact Info) Description 01/05/2024 2:30 PM EST TH Visit (TeleHealth) Hematology/Oncology at [address] [phone] Cody Frazier MD [facility] DR [place] [address] Bea Grimes APRN [address] [place] [address] DR HEMATOLOGY AND ONCOLOGY [place], [place] [phone] documented as of this encounter Visit Diagnoses Not on filedocumented in this encounter Care Teams Foreign Law Consultant Relationship Specialty Start Date End Date Nikki Hermosillo, CLOTHES DRIER ASSEMBLER [address] [place] [address] PCP - General Family Medicine 04/25/23 documented as of this encounter
--- OUTSIDE RECORDS SUMMARY | 2023-12-29 18:16 | XMS_ITS | Encounter Summary ---
Author Organization [facility] Address [facility] [place] [address] Care Team Providers Care Pricing Lead Name Role Phone Nikki Hermosillo APRN Primary Care Provider [phone] Encounter Details Date Type Department Care Team (Late st Contact Info) Description 05/15/2023 7:40 PM EDT Ancillary Procedure Radiology Library at [facility] [place] [phone] Nikki Hermosillo APRN [address] [place] [address] Social History Tobacco Use Types Packs/Day Years Used Date Smoking Tobacco: Some Days Cigarettes 0.3 42.9 Started: 1981 Smokeless Tobacco: Never Comments:10 per day- rarely Alcohol Use Standard Drinks/Week Comments Yes 1 (1 standard drink = 0.6 oz pur e alcohol) recently not as often [facility] Utilities Answer Date Recorded In the [...] in a fpc (including now)? No 04/25/2023 IPV Inpatient Questions [...] PM EST TH Visit (TeleHealth) Hematology/Oncology at [address] [phone] Cody Frazier MD [facility] DR [place] [address] Bea Grimes APRN [address] [place] [address] DR [place] [address] documented as of this encounter Procedures Procedure Name Priority Date/Time Associated Diagnosis Comments FILM LIBRARY STORAGE ONLY CT CHEST Routine 05/15/2023 7:37 PM EDT documented in this encounter Results * Film Library- Storage Only CT Chest (05/15/2023 7:37 PM EDT) Narrative [facility] - 05/15/2023 7:37 PM EDT This exam is auto-finalizing. It's purpose is for storage only. Nikki Hermosillo APRN [facility]MM[facility] FILM LIBRARY ORD ERABLES [place], [place] documented in this encounter Visit Diagnoses Not on filedocumented in this encounter Care Teams Pricing Lead Relationship Specialty Start Date End Date Nikki Hermosillo, IGNACIA [facility] [place] [address] PCP - General Family Medicine 04/25/23 documented as of this encounter
--- OUTSIDE RECORDS SUMMARY | 2023-12-29 18:16 | XMS_ITS | Encounter Summary ---
Author Organization [facility] Address [facility] [place] [address] Care Team Providers Care Ski Patroller Name Role Phone Nikki Hermosillo APRN Primary Care Provider [phone] Encounter Details Date Type Department Care Team (Late st Contact Info) Description 09/15/2023 Ancillary Procedure Radiology Library at [facility] [place] [phone] Nikki Hermosillo APRN [address] [place] [address] Social History Tobacco Use Types Packs/Day Years Used Date Smoking Tobacco: Some Days Cigarettes 0.3 42.9 Started: 1981 Smokeless Tobacco: Never Comments:10 per day- rarely Alcohol Use Standard Drinks/Week Comments Yes 1 (1 standard drink = 0.6 oz pur e alcohol) recently not as often [facility] Utilities Answer Date Recorded In the [...] in a prison (including now)? No 04/25/2023 IPV Inpatient Questions [...] EST TH Visit (TeleHealth) Hematology/Oncology at [address] [phone] Cody Frazier MD [facility] DR HEMATOLOGY [place] [address] Bea Grimes APRN [address] [place] [address] DR HEMATOLOGY AND ONCOLOGY [place], [place] [address] documented as of this encounter Procedures Procedure Name Priority Date/Time Associated Diagnosis Comments FILM LIBRARY STORAGE ONLY CT CHEST Routine 09/15/2023 12:00 AM EDT documented in this encounter Results * Film Library- Storage Only CT Chest (09/15/2023 12:00 AM EDT) Narrative RAD - 09/16/2023 7:06 AM EDT This exam is auto-finalizing. It's purpose is for storage only. Nikki Hermosillo APRN IMMarisol FILM LIBRARY ORD ERABLES [facility] [place], [place] documented in this encounter Visit Diagnoses Not on filedocumented in this encounter Care Teams Ski Patroller Relationship Specialty Start Date End Date Nikki Hermoslilo, IGNACIA [facility] [place] [address] PCP - General Family Medicine 04/25/23 documented as of this encounter
--- OUTSIDE RECORDS SUMMARY | 2023-12-29 18:16 | XMS_ITS | Encounter Summary ---
Author Organization [facility] Address [facility] [place] [address] Care Team Providers Care Crystal Flat Grinder Name Role Phone Nikki Hermosillo ROLLWAY WORKER Primary Care Provider [phone] Encounter Details Date Type Department Care Team (Late st Contact Info) Description 08/25/2023 Orders Only Hematology Oncology at [address] [phone] Nathaly Mart RN Neoplasm related pain Social History Tobacco Use Types Packs/Day Years Used Date Smoking Tobacco: Some Days Cigarettes 0.3 42.9 Started: 1980 Smokeless Tobacco: Never Comments:10 per day- rarely Alcohol Use Standard Drinks/Week Comments Yes 1 (1 standard drink = 0.6 oz pur e alcohol) recently not as often [facility] Utilities Answer Date Recorded In the past [...] PM EST TH Visit (TeleHealth) Hematology/Oncology at [address] [phone] Cody Frazier MD [facility] DR HEMATOLOGY [place] [address] Bea Grimes APRN [address] [place] [address] DR HEMATOLOGY [place] [address] documented as of this encounter Visit Diagnoses Diagnosis 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
--- OUTSIDE RECORDS SUMMARY | 2023-12-29 18:16 | XMS_ITS | Encounter Summary ---
Author Organization [facility] Address [facility] [place] [address] Care Team Providers Care Sponge Hooker Name Role Phone Nikki Hermosillo IGNACIA Primary Care Provider [phone] Reason for Visit * Reason Onset Date Comments Medication Refill 05/16/2023 dilaudid Encounter Details Date Type Department Care Team (Late st Contact Info) Description 05/16/2023 Telephone Hematology/Oncology at [address] [phone] Bea Grimes APRN [address] [place] [address] HEMATOLOGY [place] [address] Medication Refill (dilaudid) Social History Tobacco Use Types Packs/Day Years Used Date Smoking Tobacco: Some Days Cigarettes 0.3 42.9 Started: 1981 Smokeless Tobacco: Never Comments:10 per day- rarely Alcohol Use Standard Drinks/Week Comments Yes 1 (1 standard drink = 0.6 oz pur e alcohol) recently not as often [facility] Utilities Answer Date Recorded In the past 12 months has [employer], gas, oil, or water [employer] threatened to shut off services in your [...] slept in a penitentiary (including now)? No 04/25/2023 DH IPV Inpatient [...] 2:30 PM EST Visit (TeleHealth) Hematology/Oncology at [address] [phone] Cody Frazier MD [facility] DR [place] [address] Bea Grimes APRN [address] [place] [address] DR HEMATOLOGY AND ONCOLOGY [place], [place] [address] documented as of this encounter Visit Diagnoses Diagnosis Malignant neoplasm of lower lobe, right bronchus or lung documented in this encounter Care Teams Sponge Hooker Relationship Specialty Start Date End Date Nikki Hermosillo, LINOLEUM PRINTER [address] [place], [place] [id number] PCP - General Family Medicine 04/25/23 documented as of this encounter
--- OUTSIDE RECORDS SUMMARY | 2023-12-29 18:16 | XMS_ITS | Encounter Summary ---
Author Organization [facility] Address [facility] [place] [address] Care Team Providers Care Landscape Contractor Name Role Phone Nikki Hermosillo APRN Primary Care Provider [phone] Encounter Details Date Type Department Care Team (Late st Contact Info) Description 09/29/2023 Orders Only Hematology/Oncology at [address] [phone] Cody Frazier MD [facility] [place] [address] Malignant neoplasm of lower lobe, right bronchus or lung Social History Tobacco Use Types Packs/Day Years Used Date Smoking Tobacco: Some Days Cigarettes 0.3 42.9 Started: 1981 Smokeless Tobacco: Never Comments:10 per day- rarely Alcohol Use Standard Drinks/Week Comments Yes 1 (1 standard drink = 0.6 oz pur e alcohol) recently not as often [facility] Utilities Answer Date Recorded In the [...] EST TH Visit (TeleHealth) Hematology/Oncology at [address] [phone] Cody Frazier MD [facility] DR [place] [address] Bea Grimes APRN [address] [place] [address] DR HEMATOLOGY AND ONCOLOGY [place], [place] [address] documented as of this encounter Visit Diagnoses Diagnosis Malignant neoplasm of lower lobe, right bronchus or lung documented in this encounter Care Teams Landscape Contractor Relationship Specialty Start Date End Date Nikki Hermosillo APRN [address] [place], [place] [address] PCP - General Family Medicine 04/25/23 documented as of this encounter
--- OUTSIDE RECORDS SUMMARY | 2023-12-29 18:16 | XMS_ITS | Encounter Summary ---
Author Organization [facility] Address [facility] [place] [address] Care Team Providers Care Hydroelectric Systems Technician Name Role Phone Nikki Hermosillo IGNACIA Primary Care Provider [phone] Encounter Details Date Type Department Care Team (Late st Contact Info) Description 09/08/2023 Telephone Hematology/Oncology at [address] [phone] Bea Grimes APRN [address] [place] [address] DR [place] [address] Social History Tobacco Use Types Packs/Day Years Used Date Smoking Tobacco: Some Days Cigarettes 0.3 42.9 Started: 1981 Smokeless Tobacco: Never Comments:10 per day- rarely Alcohol Use Standard Drinks/Week Comments Yes 1 (1 standard drink = 0.6 oz pur e alcohol) recently not as often [facility] Utilities Answer Date Recorded In the past [...] PM EST TH Visit (TeleHealth) Hematology/Oncology at [address] [phone] Cody Frazier MD [facility] DR [place] [address] Bea Grimes APRN [address] [place] [address] DR HEMATOLOGY AND ONCOLOGY [place], [place] [address] documented as of this encounter Visit Diagnoses Diagnosis Malignant neoplasm of lower lobe, right bronchus or lung documented in this encounter Care Teams Hydroelectric Systems Technician Relationship Specialty Start Date End Date Nikki Hermosillo APRN [address] [place], [place] [address] PCP - General Family Medicine 04/25/23 documented as of this encounter
--- OUTSIDE RECORDS SUMMARY | 2023-12-29 18:16 | XMS_ITS | Encounter Summary ---
Author Organization [facility] Address [facility] [place] [address] Care Team Providers Care Organ Teacher Name Role Phone Nikki Hermosillo IGNACIA Primary Care Provider [phone] Reason for Referral * Diagnostic Test (Routine) - Closed Specialty Diagnoses / Procedures Referred By Contac t Referred To Contact Radiology Diagnoses Malignant neoplasm of lower lobe, right bronchus or lung Secondary malignant neoplasm of bone Procedures NM [place] PET CT Skull Base to Mid-thigh Cody Frazier MD [facility] [place] [address] [place] [address] Referral ID Status Reason Start Date Expiration Date V isits Requested Visits Authorized [id number] Closed Specialty Service Requested 06/02/2023 12/01/2024 1 1 Reason for Visit * Diagnostic Test (Routine) - Closed Specialty Diagnoses / Procedures Referred By Contac t Referred To Contact Radiology Diagnoses Malignant neoplasm of lower lobe, right bronchus or lung Secondary malignant neoplasm of bone Procedures NM [place] PET CT Skull Base to Mid-thigh Cody Frazier MD [facility] [place] [address] [place] [address] Referral ID Status Reason Start Date Expiration Date V isits Requested Visits Authorized [id number] Closed Specialty Service Requested 06/02/2023 12/01/2024 1 1 Encounter Details Date Type Department Care Team (Late st Contact Info) Description 07/18/2023 12:00 PM EDT - 07/18/2023 11:59 PM EDT Hospital Encounter Nuclear Medicine at [facility] [place] [address] Cody Frazier MD [facility] [address] [place] [address] Malignant neoplasm of lower lobe, right bronchus [...] the past 12 months has th e [employer], gas, oil, or water [employer] threatened to shut off services in your [...] EST TH Visit (TeleHealth) Hematology/Oncology at [address] [phone] Cody Frazier MD [facility] [place] [address] Bea Grimes APRN [address] [place] [address] DR HEMATOLOGY AND ONCOLOGY [place], [place] [id number] documented as of this encounter Procedures Procedure Name Priority Date/Time Associated Diagnosis Comments NM [place] PET CT SKULL BASE TO MID-THIGH Routine 07/18/2023 12:00 PM EDT Malignant neoplasm of lower lobe, right bronchus or lung Secondary malignant neoplasm of bone documented in this encounter Results * NM [place] PET CT Skull Base to Mid-thigh (07/18/2023 12:00 PM EDT) WORKSTATION ID [id number] RAD Anatomical Region Laterality Modality Positron Emissio [...] have questions please contact the health healthcare recruiter that requested your imaging first. ? Electronically signed by: Kentrell Muhammad MD, [facility] ([phone]), at 07/24/2023 10:46 AM Narrative 07/24/2023 10:46 AM EDT EXAMINATION: [place] PET CT SKULL BASE TO MID-THIGH CLINICAL HISTORY: Non-small cell lung cancer, assess treatment response 52 yo with metastatic NSCLC. ??Restaging C34.31, Malignant neoplasm of lower lobe, right bronchus or lung - C79.51, Secondary malignant neoplasm of bone TECHNIQUE: Following IV injection of 15-hbqsix-5-deoxyglucose (FDG) a standard uptake of approximately 60 [...] Note Kentrell Muhammad MD - 07/24/2023 EXAMINATION: [facility] PET CT SKULL BASE TO MID-THIGH CLINICAL HISTORY: Non-small cell lung cancer, assess treatment response 52 yo with metastatic NSCLC. Restaging C34.31, Malignant neoplasm of lower lobe, right bronchus or lung -C79.51, Secondary malignant neoplasm of bone TECHNIQUE: Following IV injection of 52-bqnwlj-0-deoxyglucose (FDG) astandard uptake of approximately 60 minutes, [...] who have questions please contactthe health healthcare recruiter that requested your imaging first. Electronically signed by: Kentrell Muhammad MD, [facility]([phone]), at 07/24/2023 10:46 AM Cody Frazier MD [...] mCi documented in this encounter Care Teams Organ Teacher Relationship Specialty Start Date End Date Nikki Hermosillo, [employer] [address] [place] [address] PCP - General Family Medicine 04/25/23 documented as of this encounter
--- OUTSIDE RECORDS SUMMARY | 2023-12-29 18:16 | XMS_ITS | Encounter Summary ---
Author Organization Count Includes [facility] Address [facility] [place] [address] Care Team Providers Care Friction Paint Machine Tender Name Role Phone Nikki Hermosillo IGNACIA Primary Care Provider [phone] Reason for Referral * Diagnostic Test (Routine) - Closed Specialty Diagnoses / Procedures Referred By Contshayla t Referred To Contact Radiology Diagnoses Malignant neoplasm of lower lobe, right bronchus or lung Secondary malignant neoplasm of bone Procedures NM [place] PET CT Skull Base to Mid-thigh Cody Frazier MD [facility] DR [place] [address] [place] [address] Referral ID Status Reason Start Date Expiration Date V isits Requested Visits Authorized [id number] Closed Specialty Service Requested 06/02/2023 12/01/2024 1 1 Encounter Details Date Type Department Care Team (Late st Contact Info) Description 06/02/2023 1:30 PM EDT Office Visit Hematology/Oncology at [address] [phone] Cody Frazier MD [facility] [address] [place] [address] Malignant neoplasm of lower lobe, right bronchus or lung (Primary Dx); Secondary malignant neoplasm of bone Social History Tobacco Use Types Packs/Day Years Used Date Smoking Tobacco: Some Days Cigarettes 0.3 42.9 Started: 1980 Smokeless Tobacco: Never Comments:10 per day- rarely Alcohol Use Standard Drinks/Week Comments Yes 1 (1 standard drink = 0.6 oz pur e alcohol) recently not as often [facility] Utilities Answer Date Recorded In the [...] slept in a longterm (including now)? No 04/25/2023 DH IPV Inpatient [...] were not included. Hematology & Medical Oncology [place] [id number] Alexis Pelayo is being seen for the evaluation of lung cancer. Assessment & Plan: Alexis Pelayo is a 52 y.o. male patient with a past medical history significant for COPD, a 25-hpll-rdfy smoking history, chronic migraine headaches diagnosed with [...] 06/16 and then will be seeing his water resource project manager Dr. Bautista on 06/25 -Would note that [...] palliative care referral for now at his [facility] but if further increases areneeded would like want him to establish with them Cody Frazier MD, MS 06/02/2023 Medical Oncology & Hematology [facility] CC: HPI/Interval History/Subjective: Last seen 03/31/2023 [...] Social History/Support Network: Home situation: From the [place] originally. Came up here because of family Has a sister Kristine Brantley who lives [place] who is his DPOA. 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 And also [...] a past medical history significant forCOPD, a 68-azsu-tgav smoking history, chronic migraine headaches who was [...] favored. The biopsy may not be patient registration representative of the clinical mass lesion. Step [...] EST TH Visit (TeleHealth) Hematology/Oncology at [address] [phone] Cody Frazier MD [facility] DR [place] [address] Bea Grimes APRN [address] [place] [address] DR [place] [address] documented as of this encounter Results * NM [place] PET CT Skull Base to Mid-thigh (07/18/2023 12:00 PM EDT) WORKSTATION ID [id number] RAD Anatomical Region Laterality Modality Positron Emissio [...] who have questions please contact the health floor care specialist that requested your imaging first. ? Electronically signed by: Kentrell Muhammad MD, [facility] ([phone]), at 07/24/2023 10:46 AM Narrative 07/24/2023 10:46 AM EDT EXAMINATION: [facility] PET CT SKULL BASE TO MID-THIGH CLINICAL HISTORY: Non-small cell lung cancer, assess treatment response 52 yo with metastatic NSCLC. ??Restaging C34.31, Malignant neoplasm of lower lobe, right bronchus or lung - C79.51, Secondary malignant neoplasm of bone TECHNIQUE: Following IV injection of 47-iyrbij-8-deoxyglucose (FDG) a standard uptake of approximately 60 [...] Note Kentrell Muhammad MD - 07/24/2023 EXAMINATION: [facility] PET CT SKULL BASE TO MID-THIGH CLINICAL HISTORY: Non-small cell lung cancer, assess treatment response 52 yo with metastatic NSCLC. Restaging C34.31, Malignant neoplasm of lower lobe, right bronchus or lung -C79.51, Secondary malignant neoplasm of bone TECHNIQUE: Following IV injection of 17-fbrdrt-1-deoxyglucose (FDG) astandard uptake of approximately 60 minutes, [...] patients who have questions please contactthe health floor care specialist that requested your imaging first. Electronically signed by: Kentrell Muhammad MD, [facility]([phone]), at 07/24/2023 10:46 AM Cody Frazier MD [...] marrow documented in this encounter Care Teams Friction Paint Machine Tender Relationship Specialty Start Date End Date Nikki Hermosillo, [employer] [address] [place] [address] PCP - General Family Medicine 04/25/23 documented as of this encounter
--- OUTSIDE RECORDS SUMMARY | 2023-12-29 18:16 | XMS_ITS | Encounter Summary ---
Author Organization [facility] Address [facility] [place] [address] Care Team Providers Care Factory Representative Name Role Phone Nikki Hermosillo IGNACIA Primary Care Provider [phone] Reason for Referral * Consultation (Routine) - Closed Specialty Diagnoses / Procedures Referred By Kristan merlos Referred To Contact Cardiology Diagnoses Non-ST elevation myocardial infarction (NSTEMI) Farideh Machado MD [facility] [place] [address] Angela Bautista MD [address] [place] [id number] Referral ID Status Reason Start Date Expiration Date V isits Requested Visits Authorized [id number] Closed Consult, Test & Treat 04/25/2023 10/22/2023 1 1 Reason for Visit * Auth/Cert (Routine) Specialty Diagnoses / Procedures Referred By Kristan merlos Referred To Contact Diagnoses NSTEMI (non-ST elevated myocardial infarction) NSTEMI Procedures ER Vazquez Valentin MD [facility] [place] [address] [facility] Referral ID Status Reason Start Date Expiration Date Visits Re quested Visits Authorized [id number] 1 1 Encounter Details Date Type Department Care Team (Late st Contact Info) Description 04/23/2023 9:16 PM EDT - 04/26/2023 12:47 PM EDT Hospital Encounter Heart and Vascular Unit Level 4 [place] [id number] Afshin Espitia MD [facility] [place] [address] Farideh Machado MD [facility] [place] [id number] Vazquez Lan MD [facility] [place] [address] Non-ST elevation myocardial infarction (NSTEMI); Malignant neoplasm [...] pur e alcohol) recently not as often [facility] Utilities Answer Date Recorded In the past 12 months has th e [employer], gas, oil, or water [employer] threatened to shut off services in your [...] Alexis Pelayo Patient Age: 52 y.o. Language: Indonesian Race: White Ethnicity: Not nor Admit date: 04/23/2023 Discharge date: 04/26/23 Attending Physician: Farideh Machado MD Discharge Physician: Farideh Machado MD Follow-up Recommendations for Providers: Mr. Pelayo is a 52M with Hx of COPD, metastatic NSCLC, COPD who presented to [facility] initially with COPD exacerbation complicated by acute hypercapnic respiratory failure requiring intubation and NSTEMIwith findings of newly reduced LVEF of <20% transferred to [facility] 04/22 for ischemic evaluation andfurther management. Patient [...] Inpatient Provider Contact Information: Farideh Machado MD [phone] For questions regarding this document or issues relating to this hospitalization on the Medical Service, please contact your inpatient physician through the [facility] Cash Applications Clerk . Issues afterhours and on weekends will [...] Catheterization (Exam End: 04/25/2023 11:20 AM) Narrative [facility] Cardiac Catheterization/Intervention Report Patient Name: Alexis Pelayo Procedure Date: 04/25/2023 A #: [id number] Primary Physician: Ivone Hargrove Case #: [id number] File Name: [id number] Catheterization Order Number: [id number] [facility] Final Report [place], [place] Patient Name: Alexis Pelayo ID#: [id number] : 1970 Procedure Date: April 25, 2023 [...] was designated as ASA Class III. The [facility] clinical frailty scale is 3: Managing Well. Diagnostic Tests: Prior Coronary Angiography: LV ejection fraction within 6 months is 20%. Electrocardiography: EKG was assessed by ECG. EKG was Abnormal. EKG showed other abnormality. Indications for Diagnostic Cath: The priority of the diagnostic procedure was Urgent. 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 Chest [...] COPD, metastatic NSCLC, COPD who presented to [facility] initially with COPD exacerbation complicated by acute hypercapnic respiratory failure requiring intubation and NSTEMI with findings of newly reduced LVEF of <20% now transferred to [facility] for ischemic evaluation and management. Mr. Pelayo [...] breath, worse than prior and presented to [facility]. At [facility] he was noted to be [...] intubation. He was extubated 04/17. Cardiology at [facility] recommended transfer to [facility] for further ischemic evaluation and patient was accepted. At time of interview Mr. Pelayo states he feels well without chest pain, significant shortness of breath or discomfort. Hospital Course: Mr. Pelayo is a 52M with Hx of COPD, metastatic NSCLC, COPD who presented to [facility] initially with COPD exacerbation complicated by acute hypercapnic respiratory failure requiring intubation and NSTEMIwith findings of newly reduced LVEF of <20% transferred to [facility] 04/22 for ischemic evaluation andfurther management. Patient [...] was attributed to cardiogenic, pt stable at [facility] with no clinical signs of shock. No [...] Follows with Dr. Frazier (Oncologist) here at [facility]. -Continued home PO dilaudid 4mg q8h -Continued [...] wbc, hgb, hct plt Recent Labs 04/25/23 0337 04/24/23 04209/02/22 1319 WBC 9.9* 12.0* 13.74* HGB 11.6* [...] Discharge: Patient Instructions You were transferred to [facility] because an ultrasound of your heart also [...] appointments: During 8am-5pm Friday through Friday call [phone] to speak with a nurse in the cardiology clinic All other times call [phone] and ask to speak to the cardiovascular hospitalist transmission inspector. Return to work: One week Driving: No driving for 48 hours after catheterization. Follow up Appointments: PCP Nikki Hermosillo APRN [phone] April 30, 2023 at 1:30 pm Cardiology at [facility] Dr. Bautista May 18 at 11:20 am Home oxygen therapy: N/A Arrangements for VNA/home care: none General Instructions None Future Appointments and Orders Future Appointments and Orders Future Appointments Provider Department Dept Phone 05/12/2023 1:00 PM Bea Grimes APRN; Cody Frazier MD Hematology/Oncology at [facility] Arrive at: [facility] door at end of hallway [phone] 06/02/2023 1:30 PM Cody Frazier MD Hematology/Oncology at [facility] Arrive at: [facility] door at end of hallway [phone] 06/02/2023 2:00 PM [facility] Hematology Oncology at [facility] Arrive at: [facility] door at end of hallway [phone] Future Orders Complete By Expires Basic Metabolic Panel (non-fasting) [LAB15 Custom] 05/03/2023 11/02/2023 Process Instructions: Scheduling Instructions: Comments: Questions: Hemogram [[id number] Custom] 05/03/2023 11/02/2023 Process Instructions: Scheduling Instructions: Comments: Questions: Magnesium [YAS729 Custom] 05/03/2023 11/02/2023 Process Instructions: Scheduling Instructions: Comments: Questions: Phosphorus [VIS996 Custom] 05/03/2023 11/02/2023 Process Instructions: Scheduling Instructions: Comments: Questions: Referral to Cardiology [REF12 Custom] As directed Process Instructions: If no progress note charted, please enter Clinical details in comments. Scheduling Instructions: Questions: My question or request is: HFrEF, likely takotsubo Discharge References/Attachments None Greater than 30 minutes was spent on this discharge including documentation, [id number] time withthe patient, patient education, computerized mill mill recorder, coordination with pharmacy and other patient care. documented in this encounter Discharge Instructions * Patient Instructions* Farideh Machado MD - 04/25/2023 8:00 AM EDT You were transferred to [facility] because an ultrasound of your heart also [...] appointments: During 8am-5pm Friday through Friday call [phone] to speak with a nurse in the cardiology clinic All other times call [phone] and ask to speak to the cardiovascular hospitalist transmission inspector. Return to work: One week Driving: No driving for 48 hours after catheterization. Follow up Appointments: PCP Nikki Hermosillo, MAINFRAME APPLICATIONS DEVELOPER [phone] April 30, 2023 at 1:30 pm Cardiology at [facility] Dr. Bautista May 18 at [...] to home Office of Care Management Float/Weekend Cable Splicer Assistant SINGH Chacon Pager [phone] * Farideh Machado MD - 04/25/2023 12:05 PM EDT CV HOSPITALIST 1 - [facility] DAILY PROGRESS NOTE Page [phone] to reach a provider 02/09 Admit Date: [...] the past 24 hour(s)). TTE at OSH ([facility]) TTE performed showed newly reduced LVEF of <20% with WMAs superimposed on global hypokinesis. Assessment: Mr. Pelayo is a 52M with Hx of COPD, metastatic NSCLC, COPD who presented to [facility] initially with COPD exacerbation complicated by acute hypercapnic respiratory failure requiring intubation and NSTEMIwith findings of newly reduced LVEF of <20% now transferred to [facility] for ischemic evaluation and m anagement. Pt clinically euvolemic, stable for [facility] today which showed non-obstructive disease and LVEDP [...] was attributed to cardiogenic, pt stable at [facility] with no clinical signs of shock. No [...] Follows with Dr. Frazier (Oncologist) here at [facility]. -Continue home PO dilaudid 4mg q8h -Continue home PO morphine CR 100mg q8h -Continue Pregabalin 50mg BID -Continue home dronabinol 10mg BID -Compazine PRN for nausea -Miralax PRN and senna QD started Diet: Cardiac diet DVT Prophylaxis: None Code status: Do NOT Attempt CPR - Inpatient Disposition: Discharge Location: AM-PAC Basic Mobility Raw Score: 24 PT: OT: PCP Nikki Hermosillo, MAINFRAME APPLICATIONS DEVELOPER [phone] Farideh Machado MD 04/25/2023 * Lloyd Deluca DO - 04/24/2023 10:17 AM EDT CV HOSPITALIST 1 - [facility] DAILY PROGRESS NOTE Page [phone] to reach a provider 02/09 Admit Date: 04/23/2023 Encounter Date April 24, 2023 Anticipated Discharge Date: 04/26/2023 Hospital Day: 1 Active Hospital Problems Diagnosis NSTEMI (non-ST elevated myocardial infarction) Resolved Hospital Problems No resolved problems to display. 24 Hour Events/Subjective: Admit to cardiology Pt doing well today, denies CP, SOB, f/c, chest pressure, dizziness Ready for C with no concerns at this time- on [...] Continuous Infusions: heparin (porcine) infusion 950 Units/hr (04/24/23627) PRN Meds:.polyethylene glycoL (MIRALAX) oral powder, sodium [...] and oriented, no-focal deficits Labs: Recent Labs 04/24/23 042 WBC 12.0* HGB 11.4* HCT 35.5* PLATELET 589* MCV 94.9* Recent Labs 04/24/23 042 NA 138 CL 98 CO2 32* K [...] LDLCHOL 73 CHOLHDL 2.9 Recent Labs 04/24/23 042 GLUCOSE 99 EKG: Normal sinus rhythm T wave abnormality, consider anterolateral ischemia Telemetry: I have personally reviewed and interpreted the telemetry from the last 24 hours. Resultsshow NSR HR 75-88. Imaging: No results found for this visit on 04/23/23 (from the past 24 hour(s)). TTE at OSH ([facility]) TTE performed showed newly reduced LVEF of <20% with WMAs superimposed on global hypokinesis. Assessment: Mr. Pelayo is a 52M with Hx of COPD, metastatic NSCLC, COPD who presented to [facility] initially with COPD exacerbation complicated by acute hypercapnic respiratory failure requiring intubation and NSTEMIwith findings of newly reduced LVEF of <20% now transferred to [facility] for ischemic evaluation and m anagement. Pt clinically euvolemic, stable for [facility] today. Plan: #New CM w/ LVEF <20%, [...] was attributed to cardiogenic, pt stable at [facility] with no clinical signs of shock. No [...] -Consider initiation of optimization of GDMT after C #Severe COPD exacerbation, resolved #Recent Hypercapnic respiratory [...] Follows with Dr. Frazier (Oncologist) here at [facility]. -Continue home PO dilaudid 4mg q8h -Continue [...] COPD, metastatic NSCLC, COPD who presented to [facility] initially with COPD exacerbation complicated by acute hypercapnic respiratory failure requiring intubation and NSTEMIwith findings of newly reduced LVEF of <20% now transferred to [facility] for ischemic evaluation and m anagement. Mr. [...] breath, worse than prior and presented to [facility]. At [facility] he was noted to be [...] intubation. He was extubated 04/17. Cardiology at [facility] recommended transfer to [facility] for further ischemic evaluation and patient was [...] CT Guided Biopsy Lung Jose Cota MD [facility] RAD CT SCAN IR ALL BIOPSY PROCEDURES 06/27/2021 IR All Biopsy Procedures 06/27/2021 Buddy Dick MD [facility] INTERVENTIONL RAD Significant Family History: Family History Problem Relation Age of Onset Breast Cancer Mother Alzheimer Disease Father Social History: Social History Socioeconomic History Marital status: Single Spouse name: Not on file Number of children: Not on file Years of education: Not on file Highest education level: Not on file Occupational History 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 #New [...] Follows with Dr. Frazier (Oncologist) here at [facility]. -Continue home PO dilaudid 4mg q8h -Continue [...] Contact information for follow-up Angela Bautista MD [facility] [address] [place] [address] [facility] [address] Nikki Hermosillo, MAINFRAME APPLICATIONS DEVELOPER Relationship: PCP - General [facility] [address] [facility] [address] Transportation: taxi voucher family or friend will [...] in agreement with plan. Low ZAMBRANO, RN-CM Horse Groomer- Medicine Office of Care Management Ext: [phone] Pager: [phone] * Plan of Care - Nicholas Santana [...] in time for d/c, orders sent to [facility] for pickup. Ride organized by care management. Midline pulled, meds in locked cabinet and fridge returned to patient. D/C home with ride from [facility]. All needs met prior to d/c. PLAN [...] Insurance: N/A Prescription Coverage: Yes Preferred Pharmacy: [id number] - [facility], [place] - [address] [facility] [address] [address] [facility] [place] [address] Advance Care Planning: Do NOT Attempt CPR - Inpatient <no information> -Advanced Directive: No, declines (sister is SDM) Current Functional Ability: Independent Functional Status Prior to Admission: Independent Home Environment: Others in the home: sibling(s). Current Living Arrangements: home/apartment/condo. Accessibility Concerns:3rd floor apartment; several flights of stairs to enter; no home accessibility concerns noted. Current DME: none [address] [facility] [address] Social & Family Supports: All names listed [...] private vehicle when medically ready. Registered Nurse Office Coordinator Receptionist / Cable Splicer Assistant will continue to follow patient???s progress and remain available if situation changes for coordination of care, psychosocial support and/or discharge planning. Office of Care Management * Plan of Care - Farideh Machado MD - 04/25/2023 2:19 PM EDT Post Cardiac cath note Alexis Pelayo [id number] 1970 52 y.o. male Last value Range [...] PCP: Nikki Hermosillo APRN PCP phone #: [phone] ID/Chief Complaint: Mr. Pelayo is a 52 year old gentleman with metastatic NSCLC and COPD who presented to [facility] for acute hypercapnic and hypoxic respiratory failure requiring intubation and NSTEMI with new LVEF of <20% transferred to [facility] for ischemic evaluation. Coronary angiogram today did [...] one week ago prompting a presentation to [facility] where he was treated as [...] feels much better. He reports that at [facility] he had copious amounts of [...] continue to follow along. Mikhail Marina MD Food Specialist I was the attending physician available for supervision at the time of this visit. While I did not see the patient, I did review the chart and discussed the plan of management as documented above. Román Bynum MD [facility] Staff Batcher Operator * Brief Op Note - Ivone Hargrove MD - 04/25/2023 11:24 AM EDT Brief Operative Note Patient Name: Alexis Pelayo : [id number] MR#: [id number] Case Date: 04/25/2023 Surgeon: Surgeon(s) and Role: * Ivone Hargrove MD - Primary * Franck Salomon PA - Physician Vmware Engineer Preoperative diagnosis: NSTEMI Postoperative diagnosis: Nonobstructive coronary [...] and for him to go to the agriculture laborer. [facility] GOAL OUTCOME EVALUATION: Problem: Adult Inpatient [...] further details. Lloyd Deluca DO 04/24/2023 Pager [phone] documented in this encounter Plan of Treatment Upcoming Encounters Date Type Department Care Team (Late st Contact Info) Description 01/05/2024 2:30 PM EST TH Visit (TeleHealth) Hematology/Oncology at [address] [phone] Cody Frazier MD [facility] DR [place]EMATOLOGY [place] [address] Bea Grimes APRN [address] [place] [address] [place] [address] Scheduled Orders Name Type Priority Associated Diagnoses [...] 12:30 AM EDT HIV SCREEN, 4TH GENERATION ([facility]/CGP/APD/[facility]H) Routine 04/26/2023 12:30 AM EDT HEPATITIS B SURFACE ANTIBODY Routine 04/26/2023 12:30 AM EDT HEPATITIS B SURFACE ANTIGEN Routine 04/26/2023 12:30 AM EDT CMV ANTIBODY, IGG Routine 04/26/2023 12: 30 AM EDT RHEUMATOID FACTOR, QUANT Routine 04/26/2023 12:30 AM EDT HC DNA AB DS ([facility]) Routine 04/26/2023 12:30 AM EDT TSH Routine [...] EDT) Magnesium 0.85 0.69 - 1.07 mmol/L [facility] Blood 04/26/2023 12:3 0 AM EDT 04/26/2023 1:12 AM EDT Narrative Resulting Agency Comment Spec In Lab Lloyd Britt DO CHEMISTRY ORDERABLE S [facility] [place] [address] * Basic Metabolic Panel (non-fasting) (04/26/2023 12:30 AM EDT) Glucose 106 65 - 199 mg/dL [facility] Comment:Diabetes: >=200 mg/d L plus symptoms Blood Urea Nitrogen 13 10 - 20 mg/dL [facility] Creatinine 0.90 0.80 - 1.50 mg/dL [facility] Sodium 140 135 - 145 mmol/L [facility] Potassium 4.3 3.5 - 5.0 mmol/L [facility] Comment: Please note: ??Patients with WBC >100,000 may have falsely elevated Potassium levels. ??For accurate Potassium quantification in these patients send serum separator tube (gold top) for subsequent determinations. ??Contact the Clinical Chemistry Laboratory if there are any questions. Chloride 98 98 - 107 mmol/L [facility] Carbon Dioxide Not Perf - [facility] Comment:Add-on request. Samp le too old to perform test. Anion Gap Unable to Calculate 5 - 15 mmol/L [facility] Calcium 9.2 8.5 - 10.5 mg/dL [facility] Est Glomerular Filtration Rate 103 >=60 mL/min/1 .73 m?? [facility] Comment: This patient's estimated GFR was [...] Lab Lloyd Britt DO CHEMISTRY ORDERABLE S [facility] [place] [address] * CMV Antibody, IgM (04/26/2023 12:30 AM EDT) CMV IgM Negative Negative [facility] Blood 04/26/2023 12:3 0 AM EDT 04/28/2023 7:19 AM EDT Narrative Resulting Agency Comment Spec In Lab Farideh Machado MD IMMUNOLOGY ORDERAB LES Performing Organization Address City/[facility]/ZIP Co de Phone Number [facility] [place] [address] * CMV Antibody, IgG (04/26/2023 12:30 AM EDT) CMV IgG Negative Negative [facility] Blood 04/26/2023 12:3 0 AM EDT 04/28/2023 7:19 AM EDT Narrative Resulting Agency Comment Spec In Lab Farideh Machado MD IMMUNOLOGY ORDERAB LES Performing Organization Address City/[facility] Co de Phone Number [facility] [place] [address] * (ABNORMAL) Parvovirus B19 Antibody IgG and IgM (04/26/2023 12:30 AM EDT) Parvo B19 Igg (JUNE) Positive(A) Negative [facility] Comment: Test Performed by: [facility] [place] [address] Web Manager: Greg Rudolph M.D. Ph.D.; CLIA# [id number] Parvo B19 IgM (JUNE) Negative Negative [facility] Comment: Test Performed by: [facility] [place] [address] Web Manager: Greg Rudolph M.D. Ph.D.; CLIA# [id number] Parvo B19 Intrp (JUNE) SEE COMMENT [facility] Comment: RESULT: Results suggest past infection. ADDITIONAL INFORMATION This test has been modified from the front of house manager's instructions. Its performance characteristics were determined by [facility] in a manner consistent with CLIA requirements. This test has not been cleared or approved by the U.S. Food and Drug Administration. Test Performed by: [facility] [address] [place] [address] Web Manager: Greg Rudolph M.D. Ph.D.; CLIA# [id number] Blood 04/26/2023 12:3 0 AM EDT 04/28/2023 9:01 AM EDT Narrative Resulting Agency Comment Spec In Lab Farideh Machado MD LAB SEND OUT ORDER ENOC [facility] [place] [address] * Lyme IgG & IgM Antibody (04/26/2023 12:30 AM EDT) Lyme Antibody Negative Negative [facility] Lyme Ab Comment Negative result does not exclude possibility of infection. [facility] Comment: Please note that as of 06/18/2022 that this testing is performed by the Special Chemistry Laboratory at [facility]. This change in testing location is associated with a change in testing methodology. Blood 04/26/2023 12:3 0 AM EDT 04/28/2023 7:19 AM EDT Narrative Resulting Agency Comment Spec In Lab Farideh Machado MD IMMUNOLOGY ORDERAB LES Performing Organization Address [facility]/ZIP Co de Phone Number [facility] [place] [address] * HSV 1 and 2 IgG Antibodies (04/26/2023 12:30 AM EDT) HSV Type 1 Ab, IgG Negative Negative [facility] HSV Type 2 Ab, IgG Negative Negative [facility] Blood 04/26/2023 12:3 0 AM EDT 04/28/2023 7:19 AM EDT Narrative Resulting Agency Comment Spec In Lab Farideh Machado MD IMMUNOLOGY ORDERAB LES Performing Organization Address City/[facility]/ZIP Co de Phone Number [facility] [place] [address] * HIV Screen, 4th Generation ([facility]/CGP/APD/NLH) (04/26/2023 12:30 AM EDT) HIV Ab/Ag Screen Negative Negative [facility] Comment: This 4th Generation HIV test [...] HIV Comment Low Risk of HIV Infection [facility] Blood 04/26/2023 12:3 0 AM EDT 04/26/2023 1:01 AM EDT Narrative Resulting Agency Comment Spec In Lab Farideh Machado MD CHEMISTRY ORDERABL ES Performing Organization Address [facility]/ZIP Co de Phone Number [facility] [place] [address] * Hepatitis C Antibody (04/26/2023 12:30 AM EDT) Hepatitis C Antibody Negative Negative [facility] Blood 04/26/2023 12:3 0 AM EDT 04/26/2023 1:01 AM EDT Narrative Resulting Agency Comment Spec In Lab Farideh Machado MD CHEMISTRY ORDERABL ES Performing Organization Address City/[facility]/ZIP Co de Phone Number [facility] [place] [address] * Hepatitis B Core Antibody, Total (04/26/2023 12:30 AM EDT) Hepatitis B Core Antibody Negative Negative [facility] Blood 04/26/2023 12:3 0 AM EDT 04/26/2023 1:01 AM EDT Narrative Resulting Agency Comment Spec In Lab Farideh Machado MD CHEMISTRY ORDERABL ES Performing Organization Address City/[facility]/ZIP Co de Phone Number [facility] [place] [address] * Hepatitis B Surface Antibody (04/26/2023 12:30 AM EDT) Hepatitis B Surface Antibody, Quantitative <3.5 IU/L [facility] Comment: HepB Surface Ab Quant: Unvaccinated: < 8.5 IU/L Vaccinated: >= 11.5 IU/L Hepatitis B Surface Antibody Negative [facility] Comment: Patient is presumed to be not vaccinated or immune to HBV infection. Expected Results: Vaccinated: Positive Unvaccinated: Negative Blood 04/26/2023 12:3 0 AM EDT 04/26/2023 1:01 AM EDT Narrative Resulting Agency Comment Spec In Lab Farideh Machado MD CHEMISTRY ORDERABL ES Performing Organization Address [facility] Co de Phone Number [facility] [place] [address] * Hepatitis B Surface Antigen (04/26/2023 12:30 AM EDT) Hepatitis B Surface Antigen Negative Negative [facility] Blood 04/26/2023 12:3 0 AM EDT 04/26/2023 1:01 AM EDT Narrative Resulting Agency Comment Spec In Lab Farideh Machado MD CHEMISTRY ORDERABL ES Performing Organization Address [facility] Co de Phone Number [facility] [place] [address] * Hepatitis A Antibody, Total (04/26/2023 12:30 AM EDT) Hepatitis A ANTIBODY, TOTAL Negative Negative [facility] Blood 04/26/2023 12:3 0 AM EDT 04/26/2023 1:01 AM EDT Narrative Resulting Agency Comment Spec In Lab Farideh Machado MD CHEMISTRY ORDERABL ES Performing Organization Address [facility] Co de Phone Number [facility] [place] [address] * (ABNORMAL) Free Light Chains, Serum (04/26/2023 12:30 AM EDT) [place] Free Light Chain 2.38 0.72 - 2.75 mg/dL [facility] Lambda Free Light Chain 2.69(H) 0.57 - 2.15 mg/dL [facility] [place]/Lambda FLC Ratio 0.8848 0.4000 - 2.5800 [facility] Blood 04/26/2023 12:3 0 AM EDT 04/26/2023 1:01 AM EDT Narrative Resulting Agency Comment Spec In Lab Farideh Machado MD CHEMISTRY ORDERABL ES Performing Organization Address [facility] Co de Phone Number [facility] [place] [address] * (ABNORMAL) Protein Electrophoresis, serum (04/26/2023 12:30 AM EDT) Total Prot Electrophoresis 6.0(L) 6.1 - 8.0 g/dL [facility] Albumin Electrophoresis 3.80 3.20 - 5.20 g/dL [facility] Alpha 1 Globulin 0.18 0.10 - 0.30 g/dL [facility] Alpha 2 Globulin 0.62 0.40 - 0.90 g/dL [facility] Beta Globulin 0.65 0.50 - 1.00 g/dL [facility] Gamma Globulin 0.74 0.50 - 1.30 g/dL [facility] M1 Band None Detected None Detected [facility] Blood 04/26/2023 12:3 0 AM EDT 04/26/2023 1:01 AM EDT Narrative Resulting Agency Comment Spec In Lab Farideh Machado MD CHEMISTRY ORDERABL ES Performing Organization Address [facility] Co de Phone Number [facility] [place] [address] * Rheumatoid factor, quant (04/26/2023 12:30 AM EDT) Rheumatoid Factor <10 <=14 IU/mL [facility] Blood 04/26/2023 12:3 0 AM EDT 04/26/2023 1:01 AM EDT Narrative Resulting Agency Comment Spec In Lab Farideh Machado MD CHEMISTRY ORDERABL ES Performing Organization Address [facility]/ZIP [place] [address] * VON Antibody Screen (04/26/2023 12:30 AM EDT) VON Ab Screen Negative Negative [facility] Comment: This antinuclear antibody [...] performed by the [facility] Laboratory at [facility]. This change in testing location is associated with a change is testing method and reference intervals. Please review the results of this test in association with the posted reference intervals. dsDNA Ab 1.8 <=15.0 IU/mL [facility] Comment: <10 negative 10-15 [...] performed by the [facility] at [facility]. This change in testing location is associated with a change is testing method and reference intervals. Please review the results of this test in association with the posted reference intervals. Blood 04/26/2023 12:3 0 AM EDT 04/28/2023 7:19 AM EDT Narrative Resulting Agency Comment Spec In Lab Farideh Machado MD LAB SEND OUT ORDER ENOC Performing Organization Address City/[facility]/[place] [address] * (ABNORMAL) Vitamin D, 25-Hydroxy (04/26/2023 12:30 AM EDT) Vitamin D Total 25 [place] <6(L) 21 - 100 ng/mL [facility] Vit D Interp Deficient [facility] Blood 04/26/2023 12:3 0 AM EDT 04/26/2023 1:01 AM EDT Narrative Resulting Agency Comment Spec In Lab Farideh Machado MD CHEMISTRY ORDERABL ES [facility] [place] [address] * (ABNORMAL) Iron and TIBC (04/26/2023 12:30 AM EDT) Iron 83 45 - 160 mcg/dL [facility] TIBC 245(L) 250 - 450 mcg/dL [facility] Iron Saturation 34 20 - 50 % [facility] Blood 04/26/2023 12:3 0 AM EDT 04/26/2023 1:01 AM EDT Narrative Resulting Agency Comment Spec In Lab Farideh Machado MD CHEMISTRY ORDERABL ES Performing Organization Address City/[facility]/ZIP Co de Phone Number [facility] [place] [address] * Ferritin (04/26/2023 12:30 AM EDT) Ferritin 341 31 - 409 ng/mL [facility] Comment: Please note that as of 01/15/2023, the reference intervals for Ferritin have been updated. Blood 04/26/2023 12:3 0 AM EDT 04/26/2023 1:01 AM EDT Narrative Resulting Agency Comment Spec In Lab Farideh Machado MD CHEMISTRY ORDERABL ES Performing Organization Address City/[facility]/ZIP Co de Phone Number [facility] [place] [address] * Folate, serum (04/26/2023 12:30 AM EDT) Folate 11.3 4.8 - 24.2 ng/mL [facility] Blood 04/26/2023 12:3 0 AM EDT 04/26/2023 1:01 AM EDT Narrative Resulting Agency Comment Spec In Lab Farideh Machado MD CHEMISTRY ORDERABL ES Performing Organization Address City/[facility]/ZIP Co de Phone Number [facility] [place] [address] * Vitamin B12 (04/26/2023 12:30 AM EDT) Vitamin B12 539 232 - 1,245 pg/mL [facility] Blood 04/26/2023 12:3 0 AM EDT 04/26/2023 1:01 AM EDT Narrative Resulting Agency Comment Spec In Lab Farideh Machado MD CHEMISTRY ORDERABL ES Performing Organization Address [facility] Co de Phone Number [facility] [place] [address] * TSH (04/26/2023 12:30 AM EDT) Thyroid Stimulating Hormone 1.99 0.27 - 4.20 mcIU/mL [facility] Comment: Reference Interval (mcIU/mL): Females: ??First Trimester: 0.23-3.88 ??Second Trimester: 0.22-3.90 ??Third Trimester: 0.44-4.66 Blood 04/26/2023 12:3 0 AM EDT 04/26/2023 1:01 AM EDT Narrative Resulting Agency Comment Spec In Lab Farideh Machado MD CHEMISTRY ORDERABL ES Performing Organization Address City/[facility] Co de Phone Number [facility] [place] [address] * Protein Electrophoresis, urine, random (04/25/2023 6:30 PM EDT) Protein, Urine <6 0 - 12 mg/dL [facility] U Albumin Not Perf [facility] Globulin, Urine Not Perf [facility] M1 Band, Urine Not Perf [facility] UPEP Comments See Note [facility] Comment: Total Protein concentration too low to fractionate using current electrophoretic technique. Urine 04/25/2023 6:30 PM EDT 04/25/2023 6:36 PM EDT Narrative Resulting Agency Comment Spec In Lab Farideh Machado MD URINE ORDERABLES Performing Organization Address [facility]/State/ZIP Co de Phone Number [facility] [place] [address] * CARDIAC CATHETERIZATION (04/25/2023 11:20 AM EDT) Anatomical Region Laterality Modality Other Narrative 04/25/2023 10:24 PM EDT ?[facility] ? Cardiac Catheterization/Intervention Report ? Patient Name: Alexis Pelayo Fletcher. ? Procedure Date: 04/25/2023 ? A #: [id number] ? Primary Physician: El Meligy, Amr ? Case #: [id number] ? File Name: [id number] ? Catheterization Order Number: [id number] ? [facility] ? Final Report [place], [place] ? Patient Name: ? Alexis J. Pierce ? ID#: ?[id number] ? : ?1970 ? Procedure Date: ? April 25, 2023 ? Case #: ? [id number] ? Room: ? 2 ? Case Physician: ? Amr El Elie Burris.D. ?Start: ?11:02 ? Admission: ??04/23/2023 ? Referring [...] procedure was Urgent. 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 Chest [...] Procedure Note Ivone Hargrove MD - 04/25/2023 [facility] Cardiac Catheterization/Intervention Report Patient Name: Alexis Pelayo Procedure Date: 04/25/2023 A #: [id number] Primary Physician: Ivone Hargrove Case #: [id number] File Name: [id number] Catheterization Order Number: [id number] [facility] FinalReport [place], [place] Patient Name: Alexis Pelayo ID#:[id number] :1970 Procedure Date: April 25, 2023 Case [...] was designated as ASA Class III. The [facility] clinicalfrailty scale is 3: Managing Well. Diagnostic Tests: Prior Coronary Angiography: LV ejection fraction within 6 months is 20%. Electrocardiography: EKG was assessed by ECG. EKG was Abnormal. EKG showed other abnormality. Indications for Diagnostic Cath: The priority of the diagnostic procedure was Urgent. 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 Chest [...] AM EDT) UF Heparin 1.62(Crit ical) IU/mL [facility] Comment: Critical Result called by ?? [facility]IT[facility] Results read back by: ? Buddy [...] Lab Vazquez Lan MD HEMATOLOGY ORDERABLE S [facility] [place] [address] * (ABNORMAL) Differential, Automated (04/25/2023 3:37 AM EDT) Neutrophil % 58.0 % [facility] Neutrophil Absolute 5.74 1.70 - 6.10 x10(3)/mc L [facility] Lymph % 23.2 % [facility] Lymphocytes Abs 2.3 0.9 - 3.2 x10(3)/mc L [facility] Monocyte % 10.2 % [facility] Monocyte Abs 1.0(H) 0.3 - 0.9 x10(3)/mc L [facility] Eos % 4.3 % [facility] Eosinophils Abs 0.4 0.0 - 0.4 x10(3)/mc L [facility] Basophil % 1.3 % [facility] Baso Absolute 0.1 0.0 - 0.1 x10(3)/mc L [facility] Immature Gran % 3.00 % [facility] Comment: Immature granulocytes(IG's)percentage and absolute count will include metamyelocytes, myelocytes, and promyelocytes. Blood smears from CBCs yielding IG's will be scanned manually for concordance. If this scan disagrees with the automated IG or if promyelocytes are noted, a manual differential will be performed. Immature Gran Absolute 0.30(H) 0.00 - 0.04 x10(3)/mc L [facility] Blood 04/25/2023 3:37 AM EDT 04/25/2023 3:49 AM EDT Narrative Resulting Agency Comment Spec In Lab Vazquez Lan MD HEMATOLOGY ORDERABLE S [facility] [place] [address] * (ABNORMAL) Hemogram (04/25/2023 3:37 AM EDT) White Blood Cell 9.9(H) 4.0 - 9.5 x10(3)/mc L [facility] Red Blood Cell 3.79(L) 4.58 - 5.54 x10(6)/mc L [facility] Hemoglobin 11.6(L) 13.7 - 16.5 g/dL [facility] Hematocrit 35.1(L) 40.5 - 48.5 % [facility] Mean Cell Volume 92.6 82.9 - 93.1 fL [facility] Mean Cell Hemoglobin 30.6 27.5 - 32.1 pg [facility] Mean Cell Hemoglobin Concentration 33.0 32.0 - 35.7 g/dL [facility] Platelet 517(H) 145 - 357 x10(3)/mc L [facility] RDW Standard Deviation 46.6(H) 36.0 - 45.0 fL [facility] RDW coefficient of variation 14.2(H) 11.4 - 13.8 % [facility] Mean Platelet Volume 9.6 7.6 - 12.9 fL [facility] NRBC% auto 0.0 % [facility] NRBC Absolute 0.000 0.000 - 0.000 x10(3)/mc L [facility] Blood 04/25/2023 3:37 AM EDT 04/25/2023 3:49 AM EDT Narrative Resulting Agency Comment Spec In Lab Vazquez Lan MD HEMATOLOGY ORDERABLE S Performing Organization Address City/[facility] Co de Phone Number [facility] [place] [address] * Magnesium (04/25/2023 3:37 AM EDT) Magnesium 0.84 0.69 - 1.07 mmol/L [facility] Blood 04/25/2023 3:37 AM EDT 04/25/2023 3:49 AM EDT Narrative Resulting Agency Comment Spec In Lab Vazquez Lan MD CHEMISTRY ORDERABLES Performing Organization Address [facility] Co de Phone Number [facility] [place] [address] * (ABNORMAL) Basic Metabolic Panel (non-fasting) (04/25/2023 3:37 AM EDT) Glucose 106 65 - 199 mg/dL [facility] Comment:Diabetes: >=200 mg/d L plus symptoms Blood Urea Nitrogen 12 10 - 20 mg/dL [facility] Creatinine 0.74(L) 0.80 - 1.50 mg/dL [facility] Sodium 139 135 - 145 mmol/L [facility] Potassium 4.3 3.5 - 5.0 mmol/L [facility] Comment: Please note: ??Patients with WBC >100,000 may have falsely elevated Potassium levels. ??For accurate Potassium quantification in these patients send serum separator tube (gold top) for subsequent determinations. ??Contact the Clinical Chemistry Laboratory if there are any questions. Chloride 101 98 - 107 mmol/L [facility] Carbon Dioxide 30 22 - 31 mmol/L [facility] Anion Gap 8 5 - 15 mmol/L [facility] Calcium 8.9 8.5 - 10.5 mg/dL [facility] Est Glomerular Filtration Rate 110 >=60 mL/min/1. 73 m?? [facility] Comment: This patient's estimated GFR [...] Lan MD CHEMISTRY ORDERABLES Performing Organization Address [facility] [place] [address] * Heparin (unfractionated) Level (04/25/2023 3:37 AM EDT) UF Heparin 0.29 IU/mL [facility] Comment: Heparin (anti-Xa) levels [...] MD HEMATOLOGY ORDERABLE S Performing Organization Address [facility] Co de Phone Number [facility] [place] [address] * Heparin (unfractionated) Level (04/24/2023 8:30 PM EDT) UF Heparin 0.15 IU/mL [facility] Comment: Heparin (anti-Xa) levels should be [...] Lab Vazquez Lan MD HEMATOLOGY ORDERABLE S [facility] [place] [address] * Heparin (unfractionated) Level (04/24/2023 1:15 PM EDT) [facility] UF Heparin 0.55 IU/mL [facility] Comment: Heparin (anti-Xa) levels should be [...] MD HEMATOLOGY ORDERABLE S Performing Organization Address City/[facility]/ZIP Co de Phone Number [facility] [place] [address] * EKG 12 Lead (04/24/2023 7:14 AM EDT) Ventricular rate 67 BPM MUSE SYSTEM Atrial Rate 67 BPM MUSE SYSTEM P-R Interval 142 ms MUSE SYSTEM QRS Duration 74 ms MUSE SYSTEM Q-T Interval 410 ms MUSE SYSTEM QTC Calculated (Bezet) 433 ms MUSE SYSTEM Calculated P [place] 66 degrees MUSE SYSTEM Calculated R [place] 8 degrees MUSE SYSTEM Calculated T [place] 91 degrees MUSE SYSTEM INTERPRETATION Normal sinus rhythm T wave abnormality, consider anterolateral ischemia Abnormal ECG When compared with ECG of 23-APR-2023 22:45, T wave abnormality improved in inferior leads I personally reviewed the tracing and edited the fellows interpretation Confirmed by fellow MD Kearns Andrew ([id number]) on 04/24/2023 10:35:23 AM Confirmed by Von Palmer ([id number]) on 04/25/2023 5:36:31 PM MUSE SYSTEM 04/24/2023 7:14 AM EDT 04/25/2023 5:36 PM EDT Vazquez Lan MD ECG ORDERABLES Performing Organization Address City/[facility]/ZIP Co de Phone Number MUSE SYSTEM * [facility] Recheck Status (04/24/2023 4:29 AM EDT) Pathologist [facility] AB[facility]H Recheck Order Order Placed [facility] ABORH Type Recheck Completed [facility] Blood 04/24/2023 4:29 AM EDT 04/24/2023 5:20 AM EDT Narrative Resulting Agency Comment Spec In Lab Vazquez Lan MD BLOOD BANK LAB ORDER ENOC [facility] [place] [address] * (ABNORMAL) Differential, Automated (04/24/2023 4:29 AM EDT) Neutrophil % 60.8 % [facility] Neutrophil Absolute 7.31(H) 1.70 - 6.10 x10(3)/mc L [facility] Lymph % 21.0 % [facility] Lymphocytes Abs 2.5 0.9 - 3.2 x10(3)/[facility] [address] [facility] Monocyte % 11.6 % [facility] Monocyte Abs 1.4(H) 0.3 - 0.9 x10(3)/[facility] [address] LAB[facility]ORY Eos % 2.1 % [facility] Eosinophils Abs 0.2 0.0 - 0.4 x10(3)/[facility] [address] LAB[facility]ORY Basophil % 0.7 % [facility] Baso Absolute 0.1 0.0 - 0.1 x10(3)/[facility] [address] [facility]ORY Immature Gran % 3.80 % [facility] Comment: Immature granulocytes(IG's)percentage and absolute count will include metamyelocytes, myelocytes, and promyelocytes. Blood smears from CBCs yielding IG's will be scanned manually for concordance. If this scan disagrees with the automated IG or if promyelocytes are noted, a manual differential will be performed. Immature Gran Absolute 0.46(H) 0.00 - 0.04 x10(3)/ L [facility] Blood 04/24/2023 4:29 AM EDT 04/24/2023 5:13 AM EDT Narrative Resulting Agency Comment Spec In Lab Vazquez Lan MD HEMATOLOGY ORDERABLE S [facility] [place] [address] * (ABNORMAL) Hemogram (04/24/2023 4:29 AM EDT) White Blood Cell 12.0(H) 4.0 - 9.5 x10(3)/[facility] [address] LAB[facility]ATORY Red Blood Cell 3.74(L) 4.58 - 5.54 x10(6)/[facility] [address] [facility]ORY Hemoglobin 11.4(L) 13.7 - 16.5 g/dL [facility] Hematocrit 35.5(L) 40.5 - 48.5 % [facility] Mean Cell Volume 94.9(H) 82.9 - 93.1 fL [facility] Mean Cell Hemoglobin 30.5 27.5 - 32.1 pg [facility] Mean Cell Hemoglobin Concentration 32.1 32.0 - 35.7 g/dL [facility] Platelet 589(H) 145 - 357 x10(3)/mc L [facility] RDW Standard Deviation 46.0(H) 36.0 - 45.0 fL [facility] RDW coefficient of variation 13.9(H) 11.4 - 13.8 % [facility] Mean Platelet Volume 10.2 7.6 - 12.9 fL [facility] NRBC% auto 0.2 % [facility] NRBC Absolute 0.020(H) 0.000 - 0.000 x10(3)/mc L [facility] Blood 04/24/2023 4:29 AM EDT 04/24/2023 5:13 AM EDT Narrative Resulting Agency Comment Spec In Lab Vazquez Lan MD HEMATOLOGY ORDERABLE S [facility] [place] [address] * Heparin (unfractionated) Level (04/24/2023 4:29 AM EDT) UF Heparin 0.11 IU/mL [facility] Comment: Specimen drawn more than one [...] MD HEMATOLOGY ORDERABLE S Performing Organization Address [facility] Co de Phone Number [facility] [place] [address] * (ABNORMAL) Hemoglobin A1c (04/24/2023 4:29 AM EDT) Hemoglobin A1c 6.2(H) 4.3 - 5.6 % [facility] Comment: Reference Range: 4.3 - 5.6% [...] Mellitus, Diabetes Care 2013; 36: Suppl. 1, S67-80 Estimated Average Glucose 130 mg/dL [facility] Blood 04/24/2023 4:29 AM EDT 04/24/2023 5:13 AM EDT Narrative Resulting Agency Comment Spec In Lab Vazquez Lan MD CHEMISTRY ORDERABLES Performing Organization Address [facility] Co de Phone Number [facility] [place] [address] * Lipid Panel (Reflex Direct LDL) (04/24/2023 4:29 AM EDT) Cholesterol, Total 135 mg/dL [facility] Comment: Desirable: ? <200 mg/dL Borderline High: 200-239 mg/dL Higher: ?>sc=222 mg/dL Triglyceride 76 mg/dL [facility] Comment: Normal: ?<150 mg/dL Borderline High: 150-199 mg/dL High: ?200-499 mg/dL Very High: ? >cj=707 mg/dL HDL Cholesterol 47 mg/dL [facility] Comment: Females: High Risk: <50 mg/dL Males: High Risk: <40 mg/dL LDL Cholesterol 73 mg/dL [facility] Comment: Desirable: ? <100 mg/dL Above Desirable: 100-129 mg/dL Borderline High: 130-159 mg/dL High: ?160-189 mg/dL Very High: ? >ay=168 mg/dL Cholesterol/HDL Ratio 2.9 ratio [facility] Lipid Interpretation See Note [facility] Comment: It is important to [...] individuals with atherosclerotic cardiovascular disease (ASCVD)or LDL >no=124 mg/dL, use a high-intensity statin (40-80 mg [...] In Lab Vazquez Lan MD CHEMISTRY ORDERABLES [facility] [place] [address] * Type and screen ([facility]) (04/24/2023 4:29 AM EDT) [facility] Type A NEGATIVE [facility] Patient BB History Not Found [facility] Expires at [id number] on: 04-27-2023 [facility] Ab Screen Interp Negative [facility] Blood 04/24/2023 4:29 AM EDT 04/24/2023 4:29 AM EDT Narrative [facility] - 04/24/2023 4:29 AM EDT This Type and Screen result is only valid at the [facility] Resulting Agency Comment Spec In Lab Vazquez Lan MD BLOOD BANK LAB ORDER ENOC Performing Organization Address City/[facility]/ZIP Co de Phone Number [facility] [place] [address] * Magnesium (04/24/2023 4:29 AM EDT) Magnesium 0.79 0.69 - 1.07 mmol/L [facility] Blood 04/24/2023 4:29 AM EDT 04/24/2023 5:13 AM EDT Narrative Resulting Agency Comment Spec In Lab Vazquez Lan MD CHEMISTRY ORDERABLES [facility] [place] [address] * (ABNORMAL) Basic Metabolic Panel (non-fasting) (04/24/2023 4:29 AM EDT) Glucose 99 65 - 199 mg/dL [facility] Comment:Diabetes: >=200 mg/d L plus symptoms Blood Urea Nitrogen 14 10 - 20 mg/dL [facility] Creatinine 0.81 0.80 - 1.50 mg/dL [facility] Sodium 138 135 - 145 mmol/L [facility] Potassium 3.6 3.5 - 5.0 mmol/L [facility] Comment: Please note: ??Patients with WBC >100,000 may have falsely elevated Potassium levels. ??For accurate Potassium quantification in these patients send serum separator tube (gold top) for subsequent determinations. ??Contact the Clinical Chemistry Laboratory if there are any questions. Chloride 98 98 - 107 mmol/L [facility] Carbon Dioxide 32(H) 22 - 31 mmol/L [facility] Anion Gap 8 5 - 15 mmol/L [facility] Calcium 8.8 8.5 - 10.5 mg/dL [facility] Est Glomerular Filtration Rate 107 >=60 mL/min/1. 73 m?? [facility] Comment: This patient's estimated GFR was [...] In Lab Vazquez Lan MD CHEMISTRY ORDERABLES [facility] [place] [address] * EKG 12 Lead (04/23/2023 10:45 PM EDT) Ventricular rate 86 BPM MUSE SYSTEM Atrial Rate 86 BPM MUSE SYSTEM P-R Interval 140 ms MUSE SYSTEM QRS Duration 74 ms MUSE SYSTEM Q-T Interval 402 ms MUSE SYSTEM QTC Calculated (Bezet) 481 ms MUSE SYSTEM Calculated P [place] 64 degrees MUSE SYSTEM Calculated R [place] 48 degrees MUSE SYSTEM Calculated T [place] 149 degrees MUSE SYSTEM INTERPRETATION Normal sinus rhythm T wave abnormality, consider anterolateral ischemia T wave abnormality, consider inferior ischemia Abnormal ECG No previous ECGs available I personally reviewed the tracing and edited the fellows interpretation Confirmed by fellow MD Kearns Andrew ([id number]) on 04/24/2023 10:29:48 AM Confirmed by Von Palmer ([id number]) on 04/25/2023 5:36:26 PM MUSE SYSTEM 04/23/2023 [...] (Symbicort) 160-4.5 mcg/actuation inhaler 2 Inhalation 2 .Inhalation , Inhalation, 2 TIMES DAILY, First dose on Fri04/24/23 at 0900, Until Discontinued, Prime inhaler before first use or if has not been used for more than 5 days. Shake well prior to each use. Rinse mouth with water (spit out without swallowing) after each use., Routine Given 04/25/2023 9:03 PM EDT 2 .I nhalation Given 04/25/2023 8:23 AM EDT 2 .Inhalation Given 04/24/2023 9:59 PM EDT 2 .Inhalation calcium carbonate (TUMS) chewable tablet 500-1,000 mg [...] (Symbicort) 160-4.5 mcg/actuation inhaler 2 Inhalation 2 .Inhalation , Inhalation, 2 TIMES DAILY, First dose [...] - Reason: Transfer to a Procedural area)1144 ([facility] Unhold - Provider: Admin Adt)2103 (Given - Provider: Cassi Kebede RN) 0900 (Not Given - Provider: Nicholas Santana RN - Reason: Patient/family refused) droNABinol (Marinol) capsule 10 mg 10 mg, Oral, 2 TIMES DAILY BEFORE MEALS, First dose on Fri04/24/23 at 0730, Until Discontinued, Routine 0638 (Given - Provider: Christie Solomon RN)1722 (Given - Provider: Irma Rodney, PATRICIA) 0647 (Given - Provider: Edel Garcia RN)1040 (APR Hold - Provider: Admin Adt [...] morphine, Routine 0638 (Given - Provider: Christie Solomon RN)1308 (Given - Provider: Irma Rodney RN)2159 (Given - Provider: Edel Garcia, PATRICIA) 0641 (Given - Provider: Edel Garcia, RN)1040 (APR Hold - Provider: Admin Adt - Reason: Transfer to a Procedural area)1144 (APR Unhold - Provider: Admin Adt)1304 (Given - Provider: Leeann Stafford RN)2103 (Given - Provider: Cassi Kebede, PATRICIA) 0502 [...] Christie Solomon RN)1308 (Given - Provider: Irma Rodney RN)2159 (Given - Provider: Edel Garcia RN) 0641 (Given - Provider: Edel Garcia RN)1040 (APR Hold - Provider: Admin Adt [...] - Reason: Transfer to a Procedural area)1144 ([facility] Unhold - Provider: Admin Adt) 0900 (Not Given - Provider: Nicholas Santana RN - Reason: Patient/family refused) sodium chloride 0.9 % (flush) (BD PosiFlush Normal Saline 0.9) flush 5 mL 5 mL, Intravenous, 2 TIMES DAILY, First dose on Fri04/23/23 at 2245, Until Discontinued, Routine 0812 (Given - Provider: Irma Rodney RN)2100 (Given - Provider: Edel Garcia RN) 0823 (Given - Provider: Leeann tSafford, PATRICIA)1040 ([facility] Hold - Provider: Admin Adt - Reason: Transfer to a Procedural area)1144 ([facility] Unhold - Provider: Admin Adt)2104 (Given - [...] Routine 0628 (Rate/Dose Change - Provider: Christie D Mumuli, RN)2205 (Rate/Dose Change - Provider: Edel Garcia RN) 0410 (Rate/Dose Change - Provider: Edel Garcia RN)1015 (Stopped - Provider: Leeann Stafford RN)1040 (APR [...] Routine 1051 (Given - Provider: Erik Barboza RN)105 (Given [...] (Intra-Procedure), Routine 1051 (Given - Provider: Erik Barboza, PATRICIA)1058 (Given - Provider: Erik Barboza RN) nitroGLYcerin [...] last 24 to 72 hours., Routine 1040 ([facility] Hold - Provider: Admin Adt - Reason: Transfer to a Procedural area)1144 ([facility] Unhold - Provider: Admin Adt) nitroGLYcerin 100 mcg/mL intracoronary dilution (CANCELED) PRN, Starting on Fri04/25/23 at 1102, Until Fri04/25/23 at 1120, Intra-Operative (Intra-Procedure), Routine 1102 (Given - Provider: THOMAS Nicolas) polyethylene glycoL (Miralax) packet 17 g 17 g, Oral, DAILY PRN, Starting on Anabella 04/24/23 at 0959, Until 04/26/23 at 1452, Constipation, Routine 1040 ([facility] Hold - Provider: Admin Adt - Reason: Transfer to a Procedural area)1144 ([facility] Unhold - Provider: Admin Adt) prochlorperazine (Compazine) tablet 10 mg 10 mg, Oral, EVERY 6 HOURS PRN, Starting on Fri04/23/23 at 2214, Until 04/26/23 at 1452, Nausea, Maximum dose: 50 mg / 24 hrs, Routine 1040 ([facility] Hold - Provider: Admin Adt - Reason: Transfer to a Procedural area)1144 ([facility] Unhold - Provider: Admin Adt) sodium chloride [...] Routine documented in this encounter Care Teams Factory Representative Relationship Specialty Start Date End Date Nikki Hermosillo APRN [address] [place] [address] PCP - General Family Medicine 04/25/23 documented as of this encounter
--- OUTSIDE RECORDS SUMMARY | 2023-12-29 18:16 | XMS_ITS | Encounter Summary ---
Author Organization [facility] Address [facility] [place] [address] Care Team Providers Care Floating Operator Name Role Phone Nikki Hermosillo IGNACIA Primary Care Provider [phone] Encounter Details Date Type Department Care Team (Late st Contact Info) Description 10/01/2023 Orders Only Hematology/Oncology at [address] [phone] Bea Grimes APRN [address] [place] [address] DR [place] [address] Malignant neoplasm of lower lobe, right bronchus or lung Social History Tobacco Use Types Packs/Day Years Used Date Smoking Tobacco: Some Days Cigarettes 0.3 42.9 Started: 1980 Smokeless Tobacco: Never Comments:10 per day- rarely Alcohol Use Standard Drinks/Week Comments Yes 1 (1 standard drink = 0.6 oz pur e alcohol) recently not as often [facility] Utilities Answer Date Recorded In the past 12 months has e electric, gas, oil, or water Location threatened to shut off services in your [...] Progress Notes * Mago Mariee RN - 10/01/2023 10:08 AM EDT Kirstin Peña [facility] Hem Onc Nurse Alexis called to say that he is going to run out of his morphine CR (MS Contin) 100 mg ER tablet bythis weekend. He expressed that there would be no way he'd be able to come in for his appointment if he does not have this. Please send to [facility] in . Follow-up Note Received prescription refill request above. Review of chart suggests that this is an appropriate refill request. Prescription pended and laura Grimes APRN for review and approval, if agreed. documented in this encounter Plan of Treatment Upcoming Encounters Date Type Department Care Team (Late Contact Info) Description 01/05/2024 2:30 PM EST TH Visit (TeleHealth) Hematology/Oncology at [address] [phone] Cody Frazier MD [facility] DR H[place]AT[place] [address] Bea Grimes APRN [address] [place] [address] DR HEMATOLOGY AND ONCOLOGY [place], [place] [id number] documented as of this encounter Visit Diagnoses Diagnosis Malignant neoplasm of lower lobe, right bronchus or lung documented in this encounter Care Teams Floating Operator Relationship Specialty Start Date End Date Nikki Hermosillo APRN [address] [place], [place] [id number] PCP - General Family Medicine 04/25/23 documented as of this encounter
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
--- OUTSIDE RECORDS SUMMARY | 2023-12-29 18:16 | XMS_ITS | Encounter Summary ---
Author Organization [facility] Address [facility] [place] [address] Care Team Providers Care Supervisor Waterproofing Name Role Phone Nikki Hermosillo IGNACIA Primary Care Provider [phone] Reason for Referral * Diagnostic Test (Routine) - Authorized Specialty Diagnoses / Procedures Referred By Contac t Referred To Contact Radiology Diagnoses Malignant neoplasm of lower lobe, right bronchus or lung Secondary malignant neoplasm of bone Procedures CT Chest w Contrast Cody Frazier MD [facility] DR HEMATOLOGY [place] [address] [facility] [place] [address] Referral ID Status Reason Start Date Expiration Date Visits Requested Visits Authorized [id number] Authorized Specialty Service Requested 07/21/2023 01/19/2025 1 1 Encounter Details Date Type Department Care Team (Late st Contact Info) Description 07/21/2023 2:00 PM EDT Office Visit Hematology/Oncology at [address] [phone] Cody Frazier MD [facility] DR [place]AT[place] [address] Bea Grimes APRN [address] [place] [address] DR HEMATOLOGY AND ONCOLOGY [place], [place] [id number] Malignant neoplasm of lower lobe, right bronchus [...] were not included. Hematology & Medical Oncology [place] [phone] Alexis Pelayo is being seen for the evaluation of lung cancer. Assessment & Plan: Alexis Pelayo is a 52 y.o. male patient with a past medical history significant for COPD, a 11-cllv-tbtd smoking history, chronic migraine headaches diagnosed with [...] MD, MS 07/21/2023 Medical Oncology & Hematology [facility] CC: HPI/Interval History/Subjective: Last [...] Social History/Support Network: Home situation: From the [place] originally. Came up here because of family Has a sister Kristine Brantley who lives [place] who is his DPOA. 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 [...] a past medical history significant forCOPD, a 12-snzr-ielj smoking history, chronic migraine headaches who was [...] is favored. The biopsy may not be claim service representative of the clinical mass lesion. [...] Date Type Department Care Team (Late st [facility] Info) Description 01/05/2024 2:30 PM EST TH Visit (TeleHealth) Hematology/Oncology at [address] [phone] Cody Frazier MD [facility] DR [place]AT[place] [address] Bea Grimes APRN [address] [place] [address] DR HEMATOLOGY AND ONCOLOGY [place], [place] [phone] Scheduled Orders Name Type Priority Associated Diagnoses [...] documented in this encounter Care Teams Supervisor Waterproofing Relationship Specialty Start Date End Date Nikki Hermosillo APRN [place] [address] PCP - General Family Medicine 04/25/23 documented as of this encounter
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
--- OUTSIDE RECORDS SUMMARY | 2023-12-29 18:16 | XMS_ITS | Encounter Summary ---
Author Organization [facility] Address [facility] [place] [id number] Care Team Providers Care Parcel Post Weigher Name Role Phone Nikki Hermosillo IGNACIA Primary Care Provider [phone] Reason for Visit * Reason Comments Medication Refill Encounter Details Date Type Department Care Team (Late st Contact Info) Description 07/21/2023 Refill Hematology/Oncology at [address] [phone] Bea Grimes APRN [address] [place] [address] DR HEMATOLOGY AND ONCOLOGY [place], [place] [phone] Neoplasm related pain; Malignant neoplasm of lower [...] Recorded In the past 12 months has [employer], gas, oil, or water [email or web address] threatened to shut off services in your [...] PM EST TH Visit (TeleHealth) Hematology/Oncology at [address] [phone] Cody Frazier MD [facility] DR [place] [address] Bea Grimes APRN [address] [place] [address] DR HEMATOLOGY AND ONCOLOGY [place], [place] [phone] documented as of this encounter Visit Diagnoses Diagnosis Neoplasm related pain Neoplasm related pain (acute) (chronic) Malignant neoplasm of lower lobe, right bronchus or lung 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
--- OUTSIDE RECORDS SUMMARY | 2023-12-29 18:16 | XMS_ITS | Encounter Summary ---
Author Organization [facility] Address [facility] [place] [address] Care Team Providers Care Electrical Lineworker Name Role Phone Nikki Hermosillo IGNACIA Primary Care Provider [phone] Reason for Visit * Reason Onset Date Comments Medication Refill 07/25/2023 Encounter Details Date Type Department Care Team (Late st Contact Info) Description 07/25/2023 Telephone Hematology/Oncology at [address] [phone] Bea Grimes APRN [address] [place] [address] HEMATOLOGY AND ONCOLOGY [place], [place] [phone] Medication Refill Social History Tobacco Use Types Packs/Day Years Used Date Smoking Tobacco: Some Days Cigarettes 0.3 42.9 Started: 1980 Smokeless Tobacco: Never Comments:10 per day- rarely Alcohol Use Standard Drinks/Week Comments Yes 1 (1 standard drink = 0.6 oz pur e alcohol) recently not as often [facility] Utilities Answer Date Recorded In the past 12 months has [employer], gas, oil, or water [employer] threatened to shut off services in your [...] ----- Regarding: HYDROmorphone (Dilaudid) 4 mg tablet [[id number]] Alexis called in to say that he is going to run out of his HYDROmorphone (Dilaudid) 4 mg tablet [[id number]] by Friday. He would like for them to send an order to [facility] in [facility] please Callback for questions is [phone] documented in this encounter Plan of Treatment Upcoming Encounters Date Type Department Care Team (Late st Contact Info) Description 01/05/2024 2:30 PM EST TH Visit (TeleHealth) Hematology/Oncology at [address] [phone] Cody Frazier MD [facility] DR HEMATOLOGY [place] [address] Bea Grimes APRN [address] [place] [address] DR HEMATOLOGY AND ONCOLOGY [place], [place] [address] documented as of this encounter Visit Diagnoses Diagnosis Neoplasm related pain Neoplasm related pain (acute) (chronic) documented in this encounter Care Teams Electrical Lineworker Relationship Specialty Start Date End Date Nikki Hermosillo [place] [place] [address] PCP - General Family Medicine 04/25/23 documented as of this encounter
--- OUTSIDE RECORDS SUMMARY | 2023-12-29 18:16 | XMS_ITS | Encounter Summary ---
Author Organization [facility] Address [facility] [place] [address] Care Team Providers Care Chiropractic Assistant Name Role Phone Nikki Hermosillo IGNACIA Primary Care Provider [phone] Encounter Details Date Type Department Care Team (Late st Contact Info) Description 06/16/2023 Telephone Hematology/Oncology at [address] [phone] Bea Grimes APRN [address] [place] [address] [place] [address] Social History Tobacco Use Types Packs/Day Years Used Date Smoking Tobacco: Some Days Cigarettes 0.3 42.9 Started: 1980 Smokeless Tobacco: Never Comments:10 per day- rarely Alcohol Use Standard Drinks/Week Comments Yes 1 (1 standard drink = 0.6 oz pur e alcohol) recently not as often [facility] Utilities Answer Date Recorded In the [...] PM EST TH Visit (TeleHealth) Hematology/Oncology at [address] [phone] Cody Frazier MD [facility] DR [place] [address] Bea Grimes APRN [address] [place] [address] DR HEMATOLOGY AND ONCOLOGY [place], [place] [address] documented as of this encounter Visit Diagnoses Diagnosis Malignant neoplasm of lower lobe, right bronchus or lung documented in this encounter Care Teams Chiropractic Assistant Relationship Specialty Start Date End Date Nikki Hermosillo APRN [address] [place], [place] [address] PCP - General Family Medicine 04/25/23 documented as of this encounter
--- OUTSIDE RECORDS SUMMARY | 2023-12-29 18:16 | XMS_ITS | Encounter Summary ---
Author Organization [facility] Address [facility] [place] [address] Care Team Providers Care Demand Equipment Repairer Name Role Phone Nikki Hermosillo APRN Primary Care Provider [phone] Encounter Details Date Type Department Care Team (Latest Contact Info) Description 06/02/2023 Travel Social History Tobacco Use Types Packs/Day Years Used Date Smoking Tobacco: Some Days Cigarettes 0.3 42.9 Started: 1980 Smokeless Tobacco: Never Comments:10 per day- rarely Alcohol Use Standard Drinks/Week Comments Yes 1 (1 standard drink = 0.6 oz pur e alcohol) recently not as often [facility] Utilities Answer Date Recorded In the [...] PM EST TH Visit (TeleHealth) Hematology/Oncology at [address] [phone] Cody Frazier MD [facility] DR [place] [address] Bea Grimes APRN [address] [place] [address] DR HEMATOLOGY AND ONCOLOGY [place], [place] [address] documented as of this encounter Visit Diagnoses Not on filedocumented in this encounter Care Teams Demand Equipment Repairer Relationship Specialty Start Date End Date Nikki Hermosillo APRN [address] [place], [place] [address] PCP - General Family Medicine 04/25/23 documented as of this encounter
--- OUTSIDE RECORDS SUMMARY | 2023-12-29 18:16 | XMS_ITS | Encounter Summary ---
Author Organization [facility] Address [facility] [place] [address] Care Team Providers Care Car Greaser Name Role Phone Nikki Hermosillo IGNACIA Primary Care Provider [phone] Encounter Details Date Type Department Care Team (Late st Contact Info) Description 05/26/2023 Telephone Hematology/Oncology at [address] [phone] Bea Grimes APRN [address] [place] [address] DR [place] [address] Social History Tobacco Use Types Packs/Day Years Used Date Smoking Tobacco: Some Days Cigarettes 0.3 42.9 Started: 1980 Smokeless Tobacco: Never Comments:10 per day- rarely Alcohol Use Standard Drinks/Week Comments Yes 1 (1 standard drink = 0.6 oz pur e alcohol) recently not as often [facility] Utilities Answer Date Recorded In [...] PM EST TH Visit (TeleHealth) Hematology/Oncology at [address] [phone] Cody Frazier MD [facility] [place] [address] Bea Grimes APRN [address] [place] [address] DR HEMATOLOGY AND ONCOLOGY [place], [place] [address] documented as of this encounter Visit Diagnoses Diagnosis Neoplasm related pain Neoplasm related pain (acute) (chronic) documented in this encounter Care Teams Car Greaser Relationship Specialty Start Date End Date Nikki Hermosillo APRN [address] [place], [place] [address] PCP - General Family Medicine 04/25/23 documented as of this encounter
--- OUTSIDE RECORDS SUMMARY | 2023-12-29 18:16 | XMS_ITS | Encounter Summary ---
Author Organization [facility] Address [facility] [place] [address] Care Team Providers Care Category Consultant Name Role Phone Nikki Hermosillo PUMP OILER Primary Care Provider [phone] Reason for Visit * Reason Onset Date Comments Medication Refill 06/24/2023 Encounter Details Date Type Department Care Team (Late st Contact Info) Description 06/24/2023 Telephone Hematology/Oncology at [address] [phone] Cody Frazier MD [facility] DR HEMATOLOGY [place] [address] Medication Refill Social History Tobacco Use Types Packs/Day Years Used Date Smoking Tobacco: Some Days Cigarettes 0.3 42.9 Started: 1980 Smokeless Tobacco: Never Comments:10 per day- rarely Alcohol Use Standard Drinks/Week Comments Yes 1 (1 standard drink = 0.6 oz pur e alcohol) recently not as often [facility] Utilities Answer Date Recorded In the past 12 months has [employer], gas, oil, or water [employer] threatened to shut off services in your [...] prescriptions renewed/ filled. Please send to [facility] in [facility]. HYDROmorphone (Dilaudid) 4 mg tablet droNABinol (Marinol) 10 mg capsule documented in this encounter Plan of Treatment Upcoming Encounters Date Type Department Care Team (Late st Contact Info) Description 01/05/2024 2:30 PM EST TH Visit (TeleHealth) Hematology/Oncology at [address] [phone] Cody Frazier MD [facility] DR HEMATOLOG[place] [address] Bea Grimes APRN [address] [place] [address] DR HEMATOLOGY AND ONCOLOGY [place], [place] [address] documented as of this encounter Visit Diagnoses Diagnosis Chemotherapy induced nausea and vomiting Nausea with vomiting Neoplasm related pain Neoplasm related pain (acute) (chronic) documented in this encounter Care Teams Category Consultant Relationship Specialty Start Date End Date Nikki Hermosillo APRN [address] [place] [address] PCP - General Family Medicine 04/25/23 documented as of this encounter
--- OUTSIDE RECORDS SUMMARY | 2023-12-29 18:17 | XMS_ITS | Encounter Summary ---
Author Organization [facility] Address [facility] [place] [id number] Care Team Providers Care Relish Maker Name Role Phone None Primary Care Provider Unavailabl e Encounter Details Date Type Department Care Team (Late st Contact Info) Description 03/03/2023 Telephone Hematology/Oncology at [address] [phone] Bea Grimes APRN [address] [place] [address] DR HEMATOLOGY [place] [address] Social History Tobacco Use Types [...] PM EST TH Visit (TeleHealth) Hematology/Oncology at [address] [phone] Cody Frazier MD [facility] DR [place] [address] Bea Grimes APRN [address] [place] [address] DR HEMATOLOGY [place] [address] documented as of this encounter Visit Diagnoses Diagnosis Neoplasm related pain Neoplasm related pain (acute) (chronic) documented in this encounter Care Teams Relish Maker Relationship Specialty Start Date End Date None None PCP - General 04/03/22 04/24/23 documented as of this encounter
--- OUTSIDE RECORDS SUMMARY | 2023-12-29 18:17 | XMS_ITS | Encounter Summary ---
Author Organization [facility] Address [facility] [place] [address] Care Team Providers Care Yacht Builder Name Role Phone None Primary Care Provider Unavailabl e Reason for Visit * Reason Onset Date Comments Medication Refill 03/26/2023 Encounter Details Date Type Department Care Team (Late st Contact Info) Description 03/26/2023 Telephone Hematology/Oncology at [address] [phone] Bandar Dillard, hot roll inspector Refill Social History Tobacco Use Types Packs/Day [...] RN Sent: 03/25/2023 1:36 PM EST To: eBa Grimes APRN Subject: brian Called pharmacy to confirm their supplier has no 2 mg tabs and unsure when they will get some. Theydo have 4 mg tabs so asking if we can send a script to them for that strength ? Please advise, thanks! Bandar GOMEZ ----- Message ----- From: Ashanti Lira Sent: 03/25/2023 8:41 AM EST To: [facility] Hem Onc Nurse Alexis called in to let us know that there is a national drug shortage on his HYDROmorphone (Dilaudid) 2 mg tablet and he is wondering if there is another medication that he could get to take it's place [facility] said that they do not know how long before it would be available to get his refill Best call back [phone] documented in this encounter Plan of Treatment Upcoming Encounters Date Type Department Care Team (Late st Contact Info) Description 01/05/2024 2:30 PM EST TH Visit (TeleHealth) Hematology/Oncology at [address] [phone] Cody Frazier MD [facility] DR [place] [address] Bea Grimes APRN [address] [place] [address] DR HEMATOLOGY AND ONCOLOGY [place], [place] [phone] documented as of this encounter Visit Diagnoses Not on filedocumented in this encounter Care Teams Yacht Builder Relationship Specialty Start Date End Date None None PCP - General 04/03/22 04/24/23 documented as of this encounter
--- OUTSIDE RECORDS SUMMARY | 2023-12-29 18:17 | XMS_ITS | Encounter Summary ---
Author Organization [facility] Address [facility] [place] [address] Care Team Providers Care Cloth Bale Header Name Role Phone None Primary Care Provider Unavailabl e Encounter Details Date Type Department Care Team (Late st Contact Info) Description 03/31/2023 1:30 PM EST Office Visit Hematology/Oncology at [address] [phone] Bea Grimes APRN [address] [place] [address] DR [place] [address] Malignant neoplasm of lower lobe, [...] were not included. Hematology & Medical Oncology [address] [phone] Alexis Pelayo is being seen for the evaluation of lung cancer. Assessment & Plan: Alexis Pelayo is a 52 y.o. male patient with a past medical history significant for COPD, a 72-asol-conc smoking history, chronic migraine headaches diagnosed with [...] palliative care referral for now at his [facility] but if further increases areneeded would like want him to establish with them # Hypercalcemia- WNL today - Follow for now #Hypomag- Had a strange reaction to the Mag supplement (? Sleep paralysis) so stopped and is improved. - Mag WNL, holding further supplementation. #COPD - Recently admitted for COPD exacerbation/PNA. He does not have a tapping machine operator automatic. We discussed that this may be helpful in managing his COPD as it evolves, but he is not interested in a referral at thistime. FEN - Continue marinol, weight and appetite are stable. Bea Grimes, POLISHER NUMERAL 03/31/2023 Medical Oncology & Hematology [facility] CC: HPI/Interval History/Subjective: Last seen 03/10/2023 Alexis [...] Social History/Support Network: Home situation: From the [place] originally. Came up here because of family Has a sister Kristine Brantley who lives [place] who is his DPOA. 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 The biopsy may not be site safety representative of the clinical mass lesion. Step levels were examine 8.09.01 Due to progression started carboplatin/pemetrexed 10.23 Response to treatment on restage after 2 cylces 10.11 C3 10.30.23 C4 11.13.23 1..24 Continued response on scan 11/20/2022 12:11 PM [...] 8.3, albumin 4.0,TSH 2.44, Free T4 1.13 11..23 White blood cell count 5.91 hemoglobin 11.8 [...] albumin 3.8, TSH 2.30, Free T4 1.13 10.. WBC 8.64, H/H 11.7/36.5, plt 743, ANC [...] 1.05 Free T41.01 Review of Imaging Data: 1.22.24 Personally reviewed as above. 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
--- OUTSIDE RECORDS SUMMARY | 2023-12-29 18:17 | XMS_ITS | Encounter Summary ---
Author Organization [facility] Address [facility] [place] [id number] Care Team Providers Care Stack Matcher Name Role Phone None Primary Care Provider Unavailabl e Encounter Details Date Type Department Care Team (Late st Contact Info) Description 04/15/2023 Telephone Hematology/Oncology at [address] [phone] Deanne Nelson, RN Social History [...] PM EST TH Visit (TeleHealth) Hematology/Oncology at [address] [phone] Cody Frazier MD [facility] DR [place] [address] Bea Grimes APRN [address] [place] [address] DR HEMATOLOGY [place] [address] documented as of this encounter Visit Diagnoses Not on filedocumented in this encounter Care Teams Stack Matcher Relationship Specialty Start Date End Date None None PCP - General 04/03/22 04/24/23 documented as of this encounter
--- OUTSIDE RECORDS SUMMARY | 2023-12-29 18:17 | XMS_ITS | Encounter Summary ---
Author Organization [facility] Address [facility] [place] [address] Care Team Providers Care Autos Disassembler Name Role Phone None Primary Care Provider Unavailabl e Encounter Details Date Type Department Care Team (Late st Contact Info) Description 04/17/2023 Ancillary Procedure Radiology Library at [facility] [place] [place] [phone] Cody Frazier MD [facility] HEMATOLOGY [place] [address] Social History Tobacco Use Types Packs/Day Years [...] EST TH Visit (TeleHealth) Hematology/Oncology at [address] [phone] Cody Frazier MD [facility] DR [place] [address] Bea Grimes APRN [address] [place] [address] DR HEMATOLOGY AND ONCOLOGY [place], [place] [phone] documented as of this encounter Procedures Procedure [...] MD IMG FILM LIBRARY ORD ERABLES HENNA [place], [place] documented in this encounter Visit Diagnoses Not on filedocumented in this encounter Care Teams Autos Disassembler Relationship Specialty Start Date End Date None None PCP - General 04/03/22 04/24/23 documented as of this encounter
--- OUTSIDE RECORDS SUMMARY | 2023-12-29 18:17 | XMS_ITS | Encounter Summary ---
Author Organization [facility] Address [facility] [place] [address] Care Team Providers Care Warehouse Processor Name Role Phone None Primary Care Provider Unavailabl e Reason for Visit * Reason Onset Date Comments Respiratory Distress 04/21/2023 Encounter Details Date Type Department Care Team (Late st Contact Info) Description 04/21/2023 Telephone Hematology/Oncology at [address] [phone] Deanne Nelson RN Respiratory Distress [...] AM EDT Patient is still admitted at [facility]. I have scanned most recent note [...] RN Sent: 04/21/2023 12:00 AM EDT To: [facility] Hem Onc Nurse Subject: check on pt Pt admitted to [facility] with RF 04/16. Please check on status and update providers and scan in any avail records. Thanks! ----- Message ----- From: Bandar Dillard RN Sent: 04/18/2023 4:57 PM EST To: [facility] Hem Onc Nurse ----- Message ----- From: Cody Frazier MD Sent: 04/18/2023 4:51 PM EST To: Kirstin Peña; [facility] Hem Onc Nurse; # Oh no- hope he's ok. Thank you for letting me know. Can we please check on him on Friday or Fridayand get any available records once he is discharged. Kamran ----- Message ----- From: Kirstin Peña Sent: 04/18/2023 4:37 PM EST To: Cody Frazier MD; [facility] Hem Onc Nurse Alexis wanted to make Dr. Frazier aware that he has been admitted to the hospital. Anna from palliative called to relay the message. documented in this encounter Plan of Treatment Upcoming Encounters Date Type Department Care Team (Late st Contact Info) Description 01/05/2024 2:30 PM EST TH Visit (TeleHealth) Hematology/Oncology at [address] [phone] Cody Frazier MD [facility] DR [place] [address] Bea Grimes APRN [address] [place] [address] DR HEMATOLOGY [place] [address] documented as of this encounter Visit Diagnoses Not on filedocumented in this encounter Care Teams Warehouse Processor Relationship Specialty Start Date End Date None None PCP - General 04/03/22 04/24/23 documented as of this encounter
--- OUTSIDE RECORDS SUMMARY | 2023-12-29 18:17 | XMS_ITS | Encounter Summary ---
Author Organization [facility] Address [facility] [place] [id number] Care Team Providers Care Crane Manager Name Role Phone None Primary Care Provider Unavailabl e Encounter Details Date Type Department Care Team (Late st Contact Info) Description 01/20/2023 Telephone Hematology/Oncology at [address] [phone] Bea Grimes APRN [address] [place] [address] [place] [address] Social History Tobacco Use Types [...] PM EST TH Visit (TeleHealth) Hematology/Oncology at [address] [phone] Cody Frazier MD [facility] DR HEMATOLOGY [place] [address] Bea Grimes APRN [address] [place] [address] [place] [address] documented as of this encounter Visit Diagnoses Diagnosis Neoplasm related pain Neoplasm related pain (acute) (chronic) Malignant neoplasm of lower lobe, right bronchus or lung documented in this encounter Care Teams Crane Manager Relationship Specialty Start Date End Date None None PCP - General 04/03/22 04/24/23 documented as of this encounter
--- OUTSIDE RECORDS SUMMARY | 2023-12-29 18:17 | XMS_ITS | Encounter Summary ---
Author Organization [facility] Address [facility] [place] [id number] Care Team Providers Care Machine Edge Bander Name Role Phone None Primary Care Provider Unavailabl e Encounter Details Date Type Department Care Team (Late st Contact Info) Description 04/14/2023 Telephone Hematology/Oncology at [address] [phone] Bea Grmies APRN [address] [place] [address] DR HEMATOLOGY [place] [address] Social History Tobacco Use Types [...] PM EST TH Visit (TeleHealth) Hematology/Oncology at [address] [phone] Cody Frazier MD [facility] DR HEMATOLOGY [place] [address] Bea Grimes APRN [address] [place] [address] DR [place] [address] documented as of this encounter Visit Diagnoses Diagnosis Malignant neoplasm of lower lobe, right bronchus or lung documented in this encounter Care Teams Machine Edge Bander Relationship Specialty Start Date End Date None None PCP - General 04/03/22 04/24/23 documented as of this encounter
--- OUTSIDE RECORDS SUMMARY | 2023-12-29 18:17 | XMS_ITS | Encounter Summary ---
Author Organization [facility] Address [facility] Scottie [place] [address] Care Team Providers Care Tile Fitter Name Role Phone None Primary Care Provider Unavailabl e Encounter Details Date Type Department Care Team (Late st Contact Info) Description 04/19/2023 Ancillary Procedure Radiology Library at [facility] [place] [phone] Cody Frazier MD [facility] HEMATOLOGY [place] [address] Social History Tobacco Use Types Packs/Day Years [...] EST TH Visit (TeleHealth) Hematology/Oncology at [address] [phone] Cody Frazier MD [facility] [place] [address] Bea Grimes APRN [address] [place] [address] DR HEMATOLOGY AND ONCOLOGY [place], [place] [phone] documented as of this encounter Procedures Procedure [...] MD IMG FILM LIBRARY ORD ERABLES HENNA [place], [place] documented in this encounter Visit Diagnoses Not on filedocumented in this encounter Care Teams Tile Fitter Relationship Specialty Start Date End Date None None PCP - General 04/03/22 04/24/23 documented as of this encounter
--- OUTSIDE RECORDS SUMMARY | 2023-12-29 18:17 | XMS_ITS | Encounter Summary ---
Author Organization [facility] Address [facility] [place] [address] Care Team Providers Care Oil Burner Servicer And Installer Name Role Phone None Primary Care Provider Unavailabl e Encounter Details Date Type Department Care Team (Late st Contact Info) Description 02/12/2023 10:30 AM EST Office Visit Hematology/Oncology at [address] [phone] Bea Grimes APRN [address] [place] [address] DR [place] [address] Malignant neoplasm of lower lobe, [...] were not included. Hematology & Medical Oncology [place] [phone] Alexis Pelayo is being seen for the evaluation of lung cancer. Assessment & Plan: Alexis Pelayo is a 52 y.o. male patient with a past medical history significant for COPD, a 11-lhke-pjxk smoking history, chronic migraine headaches diagnosed with [...] palliative care referral for now at his [facility] but if further increases areneeded would [...] to normal. He does not have a hall manager. We discussed that this may be helpful in managing his COPD as it evolves, but he is not interested in a referral at this time. Bea Grimes, LAMP ASSEMBLER 02/12/2023 Medical Oncology & Hematology [facility] CC: HPI/Interval History/Subjective: Last seen 12/09/2022 [...] Social History/Support Network: Home situation: From the [place] originally. Came up here because of family Has a sister Kristine Brantley who lives [place] who is his DPOA. Employment: Originally trained as [employer] and had been . And also worked [...] a past medical history significant forCOPD, a 32-cloq-hzts smoking history, chronic migraine headaches who was [...] favored. The biopsy may not be patient admitting representative of the clinical mass lesion. Step [...] PM EST TH Visit (TeleHealth) Hematology/Oncology at [address] [phone] Cody Frazier MD [facility] DR [place] [address] Bea Grimes APRN [address] [place] [address] DR [place] [address] documented as of this encounter Visit Diagnoses Diagnosis Malignant neoplasm of lower lobe, right bronchus or lung documented in this encounter Care Teams Oil Burner Servicer And Installer Relationship Specialty Start Date End Date None None PCP - General 04/03/22 04/24/23 documented as of this encounter
--- OUTSIDE RECORDS SUMMARY | 2023-12-29 18:17 | XMS_ITS | Encounter Summary ---
Author Organization [facility] Address [facility] [place] [address] Care Team Providers Care Housekeeping/Laundry Name Role Phone None Primary Care Provider Unavailabl e Encounter Details Date Type Department Care Team (Late st Contact Info) Description 04/18/2023 Orders Only Hematology and Oncology at [facility] [place] [phone] Cody Frazier MD [facility] DR [place] [address] Social History Tobacco Use Types Packs/Day Years [...] EST TH Visit (TeleHealth) Hematology/Oncology at [address] [phone] Cody Frazier MD [facility] DR [place] [address] Bea Grimes APRN [address] [place] [address] DR HEMATOLOGY [place] [address] documented as of this encounter Visit Diagnoses Not on filedocumented in this encounter Care Teams Housekeeping/Laundry Relationship Specialty Start Date End Date None None PCP - General 04/03/22 04/24/23 documented as of this encounter
--- OUTSIDE RECORDS SUMMARY | 2023-12-29 18:17 | XMS_ITS | Encounter Summary ---
Author Organization [facility] Address [facility] [place] [address] Care Team Providers Care Reuse Technician Name Role Phone None Primary Care Provider Unavailabl e Encounter Details Date Type Department Care Team (Late st Contact Info) Description 04/17/2023 Telephone Cardiology at [address] [phone] Joelle Macdonald MD [facility] [place] [address] Social History Tobacco Use Types Packs/Day Years [...] PM Referring Provider: Dr. Sparrow Patient Location: [facility] Past Medical History: COPD Metastatic Lung Cancer [...] not personally reviewed EKGs. Joelle Macdonald MD Water Manager [phone] Pager [phone] documented in this encounter Plan of Treatment Upcoming Encounters Date Type Department Care Team (Late st Contact Info) Description 01/05/2024 2:30 PM EST TH Visit (TeleHealth) Hematology/Oncology at [address] [phone] Cody Frazier MD [facility] DR HEMATOLOGY [place] [address] Bea Grimes APRN [address] [place] [address] DR HEMATOLOGY AND ONCOLOGY [place], [place] [phone] documented as of this encounter Visit Diagnoses Not on filedocumented in this encounter Care Teams Reuse Technician Relationship Specialty Start Date End Date None None PCP - General 04/03/22 04/24/23 documented as of this encounter
--- OUTSIDE RECORDS SUMMARY | 2023-12-29 18:17 | XMS_ITS | Encounter Summary ---
Author Organization [facility] Address [facility] [place] [id number] Care Team Providers Care Instantizer Operator Name Role Phone None Primary Care Provider Unavailabl e Encounter Details Date Type Department Care Team (Late st Contact Info) Description 03/24/2023 Telephone Hematology/Oncology at [address] [phone] Bea Grimes APRN [address] [place] [address] DR HEMATOLOGY [place] [address] Social History Tobacco Use [...] PM EST TH Visit (TeleHealth) Hematology/Oncology at [address] [phone] Cody Frazier MD [facility] DR [place] [address] Bea Grimes APRN [address] [place] [address] DR HEMATOLOGY [place] [address] documented as of this encounter Visit Diagnoses Diagnosis Neoplasm related pain Neoplasm related pain (acute) (chronic) documented in this encounter Care Teams Instantizer Operator Relationship Specialty Start Date End Date None None PCP - General 04/03/22 04/24/23 documented as of this encounter
--- OUTSIDE RECORDS SUMMARY | 2023-12-29 18:17 | XMS_ITS | Encounter Summary ---
Author Organization [facility] Address [facility] [place] [address] Care Team Providers Care Lotteries Agent Name Role Phone None Primary Care Provider [...] PEMETREXED, 10MG, INJECTION (ALIMTA) Cody Frazier MD [address] [place] [address] DR [place] [address] Cody Frazier MD [address] [place] [address] DR [place] [address] Referral ID Status Reason Start Date Expiration Date V isits Requested Visits Authorized [id number] Authorized 02/10/2022 08/10/2023 1 103 Encounter Details Date Type Department Care Team (Late st Contact Info) Description 03/10/2023 11:00 AM EST Infusion Hematology Oncology at [address] [phone] Malignant neoplasm of lower lobe, [...] PM EST TH Visit (TeleHealth) Hematology/Oncology at [address] [phone] Cody Frazier MD [facility] DR [place] [address] Bea Grimes MILK DRIVER [address] [place] [address] DR HEMATOLOGY AND ONCOLOGY [place], [place] [phone] documented as of this encounter Visit Diagnoses [...] 2 minutes is a recommendation from the taker down. Administer prior to chemotherapy., Routine Given 03/10/2023 [...] mL/hr documented in this encounter Care Teams Lotteries Agent Relationship Specialty Start Date End Date None None PCP - General 04/03/22 04/24/23 documented as of this encounter
--- OUTSIDE RECORDS SUMMARY | 2023-12-29 18:17 | XMS_ITS | Encounter Summary ---
Author Organization [facility] Address [facility] [place] [address] Care Team Providers Care Flat Folder Name Role Phone None Primary Care Provider Unavailabl e Encounter Details Date Type Department Care Team (Late st Contact Info) Description 02/17/2023 Telephone Hematology/Oncology at [address] [phone] Cody Frazier MD [facility] DR HEMATOLOGY [place] [address] Social History Tobacco Use Types [...] PM EST TH Visit (TeleHealth) Hematology/Oncology at [address] [phone] Cody Frazier MD [facility] DR HEMATOLOGY [place] [address] Bea Grimes APRN [address] [place] [address] DR HEMATOLOGY [place] [address] documented as of this encounter Visit Diagnoses Diagnosis Malignant neoplasm of lower lobe, right bronchus or lung documented in this encounter Care Teams Flat Folder Relationship Specialty Start Date End Date None None PCP - General 04/03/22 04/24/23 documented as of this encounter
--- OUTSIDE RECORDS SUMMARY | 2023-12-29 18:17 | XMS_ITS | Encounter Summary ---
Author Organization [facility] Address [facility] [place] [address] Care Team Providers Care Wellness Program Administrator Name Role Phone None Primary Care Provider Unavailabl e Encounter Details Date Type Department Care Team (Late st Contact Info) Description 04/22/2023 External [place] [phone] Social History Tobacco Use Types Packs/Day Years Used Date Smoking Tobacco: Some Days Cigarettes 0.3 42.9 Started: 1980 Smokeless Tobacco: Never Comments:10 per day- rarely Alcohol Use Standard Drinks/Week Comments Yes 3 (1 standard drink = 0.6 oz pur e alcohol) recently not as often [facility] Utilities Answer Date Recorded In [...] in a senior care (including now)? No 04/25/2023 DH IPV Inpatient [...] EST TH Visit (TeleHealth) Hematology/Oncology at [address] [phone] oCdy Frazier MD [facility] DR [place] [address] Bea Grimes APRN [address] [place] [address] DR HEMATOLOGY AND ONCOLOGY [place], [place] [address] documented as of this encounter Procedures Procedure Name Priority Date/Time Associated Diagnosis Comments ECG SCAN Routine 04/22/2023 12:45 PM EDT documented in this encounter Results * Scan Doc: ECG (04/22/2023 12:45 PM EDT) Historical Provider MD BUI MGAdriana SCAN EX T ORDR/RSLT documented in this encounter Visit Diagnoses Not on filedocumented in this encounter Care Teams Wellness Program Administrator Relationship Specialty Start Date End Date None None PCP - General 04/03/22 04/24/23 documented as of this encounter
--- OUTSIDE RECORDS SUMMARY | 2023-12-29 18:17 | XMS_ITS | Encounter Summary ---
Author Organization [facility] Address [facility] [place] [address] Care Team Providers Care Wilton Weaver Name Role Phone None Primary Care Provider Unavailabl e Encounter Details Date Type Department Care Team (Late st Contact Info) Description 02/11/2023 Orders Only Hematology Oncology at [address] [phone] Mago Mariee, RN Neoplasm related pain Social History [...] RN - 02/11/2023 12:10 PM EST [facility] Hem Onc Nurse Alexis called and is looking for an Rx for Hydromorphone. He uses [email or web address] in [facility]. His call back number is [phone] Received prescription refill request via patient call for the following medication: Hydromorphone 2mg tablets Review of chart suggests that this is an appropriate refill request. Prescription pended and alura Grimes APRN for review and approval, if agreed. documented in this encounter Plan of Treatment Upcoming Encounters Date Type Department Care Team (Late st Contact Info) Description 01/05/2024 2:30 PM EST Visit (TeleHealth) Hematology/Oncology at [address] [phone] Cody Frazier MD [facility] DR HEMATOLOGY [place] [address] Bea Grimes APRN [address] [place] [address] DR [place] [address] documented as of this encounter Visit Diagnoses Diagnosis Neoplasm related pain Neoplasm related pain (acute) (chronic) documented in this encounter Care Teams Wilton Weaver Relationship Specialty Start Date End Date None None PCP - General 04/03/22 04/24/23 documented as of this encounter
--- OUTSIDE RECORDS SUMMARY | 2023-12-29 18:17 | XMS_ITS | Encounter Summary ---
Author Organization [facility] Address [facility] [place] [id number] Care Team Providers Care Home Service Demonstrator Name Role Phone None Primary Care Provider [...] EST TH Visit (TeleHealth) Hematology/Oncology at [address] [phone] Cody Frazier MD [facility] DR [place] [address] Bea Grimes APRN [address] [place] [address] DR HEMATOLOGY AND ONCOLOGY [place], [place] [address] documented as of this encounter Visit Diagnoses Not on filedocumented in this encounter Care Teams Home Service Demonstrator Relationship Specialty Start Date End Date None None PCP - General 04/03/22 04/24/23 documented as of this encounter
--- OUTSIDE RECORDS SUMMARY | 2023-12-29 18:17 | XMS_ITS | Encounter Summary ---
Author Organization [facility] Address [facility] [place] [address] Care Team Providers Care Chief Meteorologist Name Role Phone None Primary Care Provider Unavailabl e Encounter Details Date Type Department Care Team (Late st Contact Info) Description 03/17/2023 Orders Only Hematology/Oncology at [address] [phone] Nathaly Mart, RN Malignant neoplasm [...] EST TH Visit (TeleHealth) Hematology/Oncology at [address] [phone] Cody Frazier MD [facility] DR [place] [address] Bea Grimes APRN [address] [place] [address] DR HEMATOLOGY [place], [place] [address] documented as of this encounter Visit Diagnoses Diagnosis Malignant neoplasm of lower lobe, right bronchus or lung documented in this encounter Care Teams Chief Meteorologist Relationship Specialty Start Date End Date None None PCP - General 04/03/22 04/24/23 documented as of this encounter
--- OUTSIDE RECORDS SUMMARY | 2023-12-29 18:17 | XMS_ITS | Encounter Summary ---
Author Organization [facility] Address [facility] [place] [address] Care Team Providers Care Base Remover Name Role Phone None Primary Care Provider Unavailabl e Reason for Visit * Reason Onset Date Comments Follow-up 01/20/2023 Check in about w anting to cancel today's apt Encounter Details Date Type Department Care Team (Late st Contact Info) Description 01/20/2023 Telephone Hematology/Oncology at [address] [phone] Nathaly Mart RN Follow-up (Check [...] apt. He Report that he was at [facility] for COPD exacerbation and pneumonia . They [...] EST TH Visit (TeleHealth) Hematology/Oncology at [address] [phone] Cody Frazier MD [facility] DR [place] [address] Bea Grimes APRN [address] [place] [address] DR HEMATOLOGY AND ONCOLOGY [place], [place] [address] documented as of this encounter Visit Diagnoses Not on filedocumented in this encounter Care Teams Base Remover Relationship Specialty Start Date End Date None None PCP - General 04/03/22 04/24/23 documented as of this encounter
--- OUTSIDE RECORDS SUMMARY | 2023-12-29 18:17 | XMS_ITS | Encounter Summary ---
Author Organization [facility] Address [facility] [place] [address] Care Team Providers Care Privacy Attorney Name Role Phone None Primary Care Provider Unavailabl e Encounter Details Date Type Department Care Team (Late st Contact Info) Description 04/17/2023 12:05 AM EST Ancillary Procedure Radiology Library [facility] [place] [phone] [facility] HEMATOLOGY [place] [address] Social History Tobacco Use Types Packs/Day Years [...] PM EST TH Visit (TeleHealth) Hematology/Oncology at [address] [phone] [facility] DR HEMATOLOGY [place] [address] Bea Grimes APRN [address] [place] [address] DR [place] [address] documented as of this encounter Procedures Procedure Name Priority Date/Time Associated Diagnosis Comments FILM LIBRARY STORAGE ONLY DX CHEST Routine 04/17/2023 12:05 AM EST documented in this encounter Results * Film Library- Storage Only DX Chest (04/17/2023 12:05 AM EST) Narrative AMARA AGUILLON - 04/23/2023 8:13 PM EDT This exam is auto-finalizing. It's purpose is for storage only. Cody Frazier MD IMG FILM LIBRARY ORD ERABLES [place], [place] documented in this encounter Visit Diagnoses Not on filedocumented in this encounter Care Teams Privacy Attorney Relationship Specialty Start Date End Date None None PCP - General 04/03/22 04/24/23 documented as of this encounter
--- OUTSIDE RECORDS SUMMARY | 2023-12-29 18:17 | XMS_ITS | Encounter Summary ---
Author Organization [facility] Address [facility] [place] [address] Care Team Providers Care Metal Cutter Name Role Phone None Primary Care Provider Unavailabl e Encounter Details Date Type Department Care Team (Late st Contact Info) Description 01/10/2023 Ancillary Procedure Radiology Library at [place] [phone] [place]EMATOLOGY [place] [address] Social History Tobacco Use Types [...] EST TH Visit (TeleHealth) Hematology/Oncology at [address] [phone] Cody Frazier MD [facility] DR HEMATOLOGY [place] [address] Bea Grimes APRN [address] [place] [address] DR HEMATOLOGY [place] [address] documented as of this encounter Procedures Procedure Name Priority Date/Time Associated Diagnosis Comments FILM LIBRARY STORAGE ONLY DX CHEST Routine 01/10/2023 12:00 AM EST documented in this encounter Results * Film Library- Storage Only DX Chest (01/10/2023 12:00 AM EST) Narrative HENNA - 01/11/2023 2:39 AM EST This exam is auto-finalizing. It's purpose is for storage only. Bea Grimes APRN IMG FILM LIBRARY ORDERABLES [place], [place] documented in this encounter Visit Diagnoses Not on filedocumented in this encounter Care Teams Metal Cutter Relationship Specialty Start Date End Date None None PCP - General 04/03/22 04/24/23 documented as of this encounter
--- OUTSIDE RECORDS SUMMARY | 2023-12-29 18:17 | XMS_ITS | Encounter Summary ---
Author Organization [facility] Address [facility] [place] [address] Care Team Providers Care Summer Intern Name Role Phone None Primary Care Provider Unavailabl e Encounter Details Date Type Department Care Team (Late st Contact Info) Description 04/17/2023 External [place] [phone] Social History Tobacco Use Types [...] EST TH Visit (TeleHealth) Hematology/Oncology at [address] [phone] Cody Frazier MD [facility] DR [place] [address] Bea Grimes APRN [address] [place] [address] [place] [address] documented as of this encounter Procedures Procedure Name Priority Date/Time Associated Diagnosis Comments ECG SCAN Routine 04/17/2023 7:12 PM EST documented in this encounter Results * Scan Doc: ECG (04/17/2023 7:12 PM EST) Historical Provider MD BUI MGAdriana SCAN EX T ORDR/RSLT documented in this encounter Visit Diagnoses Not on filedocumented in this encounter Care Teams Summer Intern Relationship Specialty Start Date End Date None None PCP - General 04/03/22 04/24/23 documented as of this encounter
--- OUTSIDE RECORDS SUMMARY | 2023-12-29 18:17 | XMS_ITS | Encounter Summary ---
Author Organization Formerly [facility] [place] [address] Care Team Providers Care Operations Program Manager Name Role Phone Nikki Hermosillo IGNACIA Primary Care Provider [phone] Reason for Visit * Auth/Cert (Routine) Specialty Diagnoses / Procedures Referred By Kristan t Referred To Contact Diagnoses NSTEMI (non-ST elevated myocardial infarction) NSTEMI Procedures ER Vazquez Valentin MD [facility] [place] [address] [facility] Referral ID Status Reason Start Date Expiration Date Visits Re quested Visits Authorized [id number] 1 1 Encounter Details Date Type Department Care Team (Late st Contact Info) Description 04/25/2023 4:25 PM EDT - 04/25/2023 5:25 PM EDT Surgery Manager [place] [address] Ivone Hargrove MD [address] [place] [id number] CARDIAC CATHETERIZATION Social History Tobacco Use Types Packs/Day Years Used Date Smoking Tobacco: Some Days Cigarettes 0.3 42.9 Started: 1981 Smokeless Tobacco: Never Comments:10 per day- rarely Alcohol Use Standard Drinks/Week Comments Yes 1 (1 standard drink = 0.6 oz pur e alcohol) recently not as often [facility] Utilities Answer Date Recorded In the [...] Alexis Pelayo Patient Age: 52 y.o. Language: Montenegrin Race: White Ethnicity: Not nor Admit date: 04/23/2023 Discharge date: 04/26/23 Attending Physician: Farideh Machado MD Discharge Physician: Farideh Machado MD Follow-up Recommendations for Providers: Mr. Pelayo is a 52M with Hx of COPD, metastatic NSCLC, COPD who presented to [facility] initially with COPD exacerbation complicated by acute hypercapnic respiratory failure requiring intubation and NSTEMIwith findings of newly reduced LVEF of <20% transferred to [facility] 04/22 for ischemic evaluation andfurther management. Patient [...] Inpatient Provider Contact Information: Farideh Machado MD [phone] For questions regarding this document or issues relating to this hospitalization on the Medical Service, please contact your inpatient physician through the [facility] Drilling Machine Runner . Issues afterhours and on weekends will [...] Catheterization (Exam End: 04/25/2023 11:20 AM) Narrative [facility] Cardiac Catheterization/Intervention Report Patient Name: Alexis Pelayo Procedure Date: 04/25/2023 A #: [id number] Primary Physician: Ivone Hargrove Case #: [id number] File Name: [id number] Catheterization Order Number: [id number] [facility] Final Report [place], [place] Patient Name: Alexis Pelayo ID#: [id number] : 1970 Procedure Date: April 25, 2023 [...] was designated as ASA Class III. The [facility] clinical frailty scale is 3: Managing Well. Diagnostic Tests: Prior Coronary Angiography: LV ejection fraction within 6 months is 20%. Electrocardiography: EKG was assessed by ECG. EKG was Abnormal. EKG showed other abnormality. Indications for Diagnostic Cath: The priority of the diagnostic procedure was Urgent. The indication for the laborer general visit is cardiomyopathy and LV dysfunction. Chest [...] COPD, metastatic NSCLC, COPD who presented to [facility] initially with COPD exacerbation complicated by acute hypercapnic respiratory failure requiring intubation and NSTEMI with findings of newly reduced LVEF of <20% now transferred to [facility] for ischemic evaluation and management. Mr. Pelayo [...] breath, worse than prior and presented to [facility]. At [facility] he was noted to be in hypercapnic [...] intubation. He was extubated 04/17. Cardiology at [facility] recommended transfer to [facility] for further ischemic evaluation and patient was accepted. At time of interview Mr. Pelayo states he feels well without chest pain, significant shortness of breath or discomfort. Hospital Course: Mr. Pelayo is a 52M with Hx of COPD, metastatic NSCLC, COPD who presented to [facility] initially with COPD exacerbation complicated by acute hypercapnic respiratory failure requiring intubation and NSTEMIwith findings of newly reduced LVEF of <20% transferred to [facility] 04/22 for ischemic evaluation andfurther management. Patient [...] was attributed to cardiogenic, pt stable at [facility] with no clinical signs of shock. No [...] Follows with Dr. Frazier (Oncologist) here at [facility]. -Continued home PO dilaudid 4mg q8h -Continued [...] Discharge: Patient Instructions You were transferred to [facility] because an ultrasound of your heart also [...] appointments: During 8am-5pm Friday through Friday call [phone] to speak with a nurse in the cardiology clinic All other times call [phone] and ask to speak to the cardiovascular hospitalist carton forming machine helper. Return to work: One week Driving: No driving for 48 hours after catheterization. Follow up Appointments: PCP Nikki Hermosillo APRN [phone] April 30, 2023 at 1:30 pm Cardiology at [facility] Dr. Bautista May 18 at 11:20 am Home oxygen therapy: N/A Arrangements for VNA/home care: none General Instructions None Future Appointments and Orders Future Appointments and Orders Future Appointments Provider Department Dept Phone 05/12/2023 1:00 PM Bea Grimes APRN; Cody Frazier MD Hematology/Oncology at [facility] Arrive at: [facility] door at end of hallway [phone] 06/02/2023 1:30 PM Cody Frazier MD Hematology/Oncology at [facility] Arrive at: [facility] door at end of hallway [phone] 06/02/2023 2:[address] [facility]FUSION, ROOM Hematology Oncology at [facility] Arrive at: [facility] door at end of hallway [phone] Future Orders Complete By Expires Basic Metabolic Panel (non-fasting) [LAB15 Custom] 05/03/2023 11/02/2023 Process Instructions: Scheduling Instructions: Comments: Questions: Hemogram [[id number] Custom] 05/03/2023 11/02/2023 Process Instructions: Scheduling Instructions: Comments: Questions: Magnesium [VIU153 Custom] 05/03/2023 11/02/2023 Process Instructions: Scheduling Instructions: Comments: Questions: Phosphorus [[id number] Custom] 05/03/2023 11/02/2023 Process Instructions: Scheduling Instructions: Comments: Questions: Referral to Cardiology [REF12 Custom] As directed Process Instructions: If no progress note charted, please enter Clinical details in comments. Scheduling Instructions: Questions: My question or request is: HFrEF, likely takotsubo Discharge References/Attachments None Greater than 30 minutes was spent on this discharge including documentation, jwja-of-ehgb time withthe patient, patient education, weight recorder, coordination with pharmacy and other patient care. documented in this encounter Discharge Instructions * Patient Instructions* Farideh Machado MD - 04/25/2023 8:00 AM EDT You were transferred to [facility] because an ultrasound of your heart also [...] appointments: During 8am-5pm Friday through Friday call [phone] to speak with a nurse in the cardiology clinic All other times call [phone] and ask to speak to the cardiovascular hospitalist carton forming machine helper. Return to work: One week Driving: No driving for 48 hours after catheterization. Follow up Appointments: PCP Nikki Hermosillo, IGNACIA [phone] April 30, 2023 at 1:30 pm Cardiology at [facility] Dr. Bautista May 18 at 11:20 am [...] to home Office of Care Management Float/Weekend Final Operations Technician SINGH Chacon Pager [phone] * Farideh Machado MD - 04/25/2023 12:05 PM EDT CV HOSPITALIST 1 - [facility] DAILY PROGRESS NOTE Page [phone] to reach a provider 02/09 Admit Date: [...] Infusions: sodium chloride 0.9% 75 mL/hr (04/25/23 1397) heparin (porcine) infusion 1,200 Units/hr (04/25/23 0560) PRN Meds:.polyethylene glycoL (MIRALAX) oral powder, sodium [...] 517* 589* MCV 92.6 94.9* Recent Labs [id number]/23428 NA 139 138 CL 101 98 CO2 [...] the past 24 hour(s)). TTE at OSH ([facility]) TTE performed showed newly reduced LVEF of <20% with WMAs superimposed on global hypokinesis. Assessment: Mr. Pelayo is a 52M with Hx of COPD, metastatic NSCLC, COPD who presented to [facility] initially with COPD exacerbation complicated by acute hypercapnic respiratory failure requiring intubation and NSTEMIwith findings of newly reduced LVEF of <20% now transferred to [facility] for ischemic evaluation and m anagement. Pt clinically euvolemic, stable for [facility] today which showed non-obstructive disease and LVEDP [...] was attributed to cardiogenic, pt stable at [facility] with no clinical signs of shock. No [...] Follows with Dr. Frazier (Oncologist) here at [facility]. -Continue home PO dilaudid 4mg q8h -Continue home PO morphine CR 100mg q8h -Continue Pregabalin 50mg BID -Continue home dronabinol 10mg BID -Compazine PRN for nausea -Miralax PRN and senna QD started Diet: Cardiac diet DVT Prophylaxis: None Code status: Do NOT Attempt CPR - Inpatient Disposition: Discharge Location: AM-PAC Basic Mobility Raw Score: 24 PT: OT: PCP Nikki Hermosillo, LAND MEASURER [phone] Farideh Machado MD 04/25/2023 * Lloyd Deluca DO - 04/24/2023 10:17 AM EDT CV HOSPITALIST 1 - [facility] DAILY PROGRESS NOTE Page [phone] to reach a provider 02/09 Admit Date: 04/23/2023 Encounter Date April 24, 2023 Anticipated Discharge Date: 04/26/2023 Hospital Day: 1 Active Hospital Problems Diagnosis NSTEMI (non-ST elevated myocardial infarction) Resolved Hospital Problems No resolved problems to display. 24 Hour Events/Subjective: Admit to cardiology Pt doing well today, denies CP, SOB, f/c, chest pressure, dizziness Ready for [facility] with no concerns at this time- on [...] the past 24 hour(s)). TTE at OSH ([facility]) TTE performed showed newly reduced LVEF of <20% with WMAs superimposed on global hypokinesis. Assessment: Mr. Pelayo is a 52M with Hx of COPD, metastatic NSCLC, COPD who presented to [facility] initially with COPD exacerbation complicated by acute hypercapnic respiratory failure requiring intubation and NSTEMIwith findings of newly reduced LVEF of <20% now transferred to [facility] for ischemic evaluation and m anagement. Pt clinically euvolemic, stable for [facility] today. Plan: #New CM w/ LVEF <20%, [...] was attributed to cardiogenic, pt stable at [facility] with no clinical signs of shock. No [...] Follows with Dr. Frazier (Oncologist) here at [facility]. -Continue home PO dilaudid 4mg q8h -Continue [...] in this encounter H&P Notes * Vazquez aLn MD - 04/23/2023 11:24 PM EDT Cardiology [...] COPD, metastatic NSCLC, COPD who presented to [facility] initially with COPD exacerbation complicated by acute hypercapnic respiratory failure requiring intubation and NSTEMIwith findings of newly reduced LVEF of <20% now transferred to [facility] for ischemic evaluation and m anagement. Mr. [...] breath, worse than prior and presented to [facility]. At [facility] he was noted to be in hypercapnic [...] intubation. He was extubated 04/17. Cardiology at [facility] recommended transfer to [facility] for further ischemic evaluation and patient was [...] CT Guided Biopsy Lung Jose Cota MD [facility] RAD CT SCAN IR ALL BIOPSY PROCEDURES 06/27/2021 IR All Biopsy Procedures 06/27/[address] 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 #New [...] Follows with Dr. Frazier (Oncologist) here at [facility]. -Continue home PO dilaudid 4mg q8h -Continue home PO morphine CR 100mg q8h -Continue Pregabalin 50mg BID -Continue home dronabinol 10mg BID -FYI Oncology of admission -Compazine PRN for nausea Provider: Vazquez Lan MD Diet: NPO for [facility] VTE ppx: Heparin gtt Code Status: Deferred [...] Contact information for follow-up Angela Bautista MD [facility] [address] [place] [address] [facility] [address] Nikki Hermosillo, LAND MEASURER Relationship: PCP - General [facility] [address] [facility] [address] Transportation: taxi voucher family or friend will [...] in agreement with plan. Low ZAMBRANO, RN-CM College Advisor- Medicine Office of Care Management Ext: [phone] Pager: [phone] * Plan of Care - Nicholas Santana [...] jan in room. D/C orders in by MD. Pt's preferred pharmacy unable to prepare meds in time for d/c, orders sent to [facility] for pickup. Ride organized by care management. Midline pulled, meds in locked cabinet and fridge returned to patient. D/C home with ride from [facility]. All needs met prior to d/c. [...] Insurance: N/A Prescription Coverage: Yes Preferred Pharmacy: [id number] - [facility], [place] - [address] [facility] [address] [facility] [address] Advance Care Planning: Do NOT Attempt CPR - Inpatient <no information> -Advanced Directive: No, declines (sister is SDM) Current Functional Ability: Independent Functional Status Prior to Admission: Independent Home Environment: Others in the home: sibling(s). Current Living Arrangements: home/apartment/condo. Accessibility Concerns:3rd floor apartment; several flights of stairs to enter; no home accessibility concerns noted. Current DME: none [address] [facility] [address] Social & Family Supports: All names listed [...] private vehicle when medically ready. Registered Nurse Senior Accounts Payable Clerk / Final Operations Technician will continue to follow patient???s progress and remain available if situation changes for coordination of care, psychosocial support and/or discharge planning. Office of Care Management * Plan of Care - Farideh Machado MD - 04/25/2023 2:19 PM EDT Post Cardiac cath note Alexis Pelayo [id number] 1970 52 y.o. male Last value Range [...] PCP: Nikki Hermosillo APRN PCP phone #: [phone] ID/Chief Complaint: Mr. Pelayo is a 52 year old gentleman with metastatic NSCLC and COPD who presented to [facility] for acute hypercapnic and hypoxic respiratory failure requiring intubation and NSTEMI with new LVEF of <20% transferred to [facility] for ischemic evaluation. Coronary angiogram today did [...] one week ago prompting a presentation to [facility] where he was treated as a COPD [...] feels much better. He reports that at [facility] he had copious amounts of sputum suctioned [...] continue to follow along. Mikhail Marina MD Telecom Coordinator I was the attending physician available for supervision at the time of this visit. While I did not see the patient, I did review the chart and discussed the plan of management as documented above. Román Bynum MD [facility] Staff Door Patcher * Brief Op Note - Ivone Hargrove MD - 04/25/2023 11:24 AM EDT Brief Operative Note Patient Name: Alexis Pelayo : [id number] MR#: [id number] Case Date: 04/25/2023 Surgeon: Surgeon(s) and Role: * Ivone Hargrove MD - Primary * Franck Salomon PA - Physician Child And Adolescent Psychiatrist Preoperative diagnosis: NSTEMI Postoperative diagnosis: Nonobstructive coronary [...] and for him to go to the laborer general. [facility] GOAL OUTCOME EVALUATION: Problem: Adult Inpatient [...] further details. Lloyd Deluca DO 04/24/2023 Pager [phone] documented in this encounter Plan of Treatment Upcoming Encounters Date Type Department Care Team (Late st Contact Info) Description 01/05/2024 2:30 PM EST TH Visit (TeleHealth) Hematology/Oncology at [address] [phone] Cody Frazier MD [facility] DR [place] [address] Bea Grimes APRN [address] [place] [address] DR HEMATOLOGY AND ONCOLOGY [place], [place] [id number] Scheduled Orders Name Type Priority Associated Diagnoses [...] 12:30 AM EDT HIV SCREEN, 4TH GENERATION (MC/CGP/APD/NLH) Routine 04/26/2023 12:30 AM EDT HEPATITIS B SURFACE ANTIBODY Routine 04/26/2023 12:30 AM EDT HEPATITIS B SURFACE ANTIGEN Routine 04/26/2023 12:30 AM EDT CMV ANTIBODY, IGG Routine 04/26/2023 12: 30 AM EDT RHEUMATOID FACTOR, QUANT Routine 04/26/2023 12:30 AM EDT HC DNA AB DS ([place]) Routine 04/26/2023 12:30 AM EDT TSH Routine [...] EDT) Magnesium 0.85 0.69 - 1.07 mmol/L [facility] Blood 04/26/2023 12:3 0 AM EDT 04/26/2023 1:12 AM EDT Narrative Resulting Agency Comment Spec In Lab Llyod Deluca V, CHEMISTRY ORDERABLE S Performing Organization Address City/State/[facility] Co de Phone Number [facility] [place] [address] * Basic Metabolic Panel (non-fasting) (04/26/2023 12:30 AM EDT) Glucose 106 65 - 199 mg/dL [facility] Comment:Diabetes: >=200 mg/d L plus symptoms Blood Urea Nitrogen 13 10 - 20 mg/dL [facility] Creatinine 0.90 0.80 - 1.50 mg/dL [facility] Sodium 140 135 - 145 mmol/L [facility] Potassium 4.3 3.5 - 5.0 mmol/L [facility] Comment: Please note: ??Patients with WBC >100,000 may have falsely elevated Potassium levels. ??For accurate Potassium quantification in these patients send serum separator tube (gold top) for subsequent determinations. ??Contact the Clinical Chemistry Laboratory if there are any questions. Chloride 98 98 - 107 mmol/L [facility] Carbon Dioxide Not Perf 22 - 31 [facility] Comment:Add-on request. Samp le too old to perform test. Anion Gap Unable to Calculate 5 - 15 mmol/L [facility] Calcium 9.2 8.5 - 10.5 mg/dL [facility] Est Glomerular Filtration Rate 103 >=60 mL/min/1 .73 m?? [facility] Comment: This patient's estimated [...] Lab Lloyd Britt DO CHEMISTRY ORDERABLE S Performing Organization Address [facility] [place] [address] * CMV Antibody, IgM (04/26/2023 12:30 AM EDT) CMV IgM Negative Negative [facility] Blood 04/26/2023 12:3 0 AM EDT 04/28/2023 7:19 AM EDT Narrative Resulting Agency Comment Spec In Lab Farideh Machado MD IMMUNOLOGY ORDERAB LES Performing Organization Address [facility] Co de Phone Number [facility] [address] * CMV Antibody, IgG (04/26/2023 12:30 AM EDT) CMV IgG Negative Negative [facility] Blood 04/26/2023 12:3 0 AM EDT 04/28/2023 7:19 AM EDT Narrative Resulting Agency Comment Spec In Lab Farideh Machado MD IMMUNOLOGY ORDERAB LES Performing Organization Address [facility] Co de Phone Number [facility] [place] [address] * (ABNORMAL) Parvovirus B19 Antibody IgG and IgM (04/26/2023 12:30 AM EDT) Parvo B19 Igg (MAY) Positive(A) Negative [facility] Comment: Test Performed by: [facility] [place] [address] Concrete Batch Plant Operator: Greg Rudolph M.D. Ph.D.; CLIA# [id number] Parvo B19 IgM (JUNE) Negative Negative [facility] Comment: Test Performed by: [facility] [place] [address] Concrete Batch Plant Operator: Greg Rudolph M.D. Ph.D.; CLIA# [id number] Parvo B19 Intrp (JUNE) SEE COMMENT [facility] Comment: RESULT: Results suggest past infection. ADDITIONAL INFORMATION This test has been modified from the waterproof bag sewer's instructions. Its performance characteristics were determined by [facility] in a manner consistent with CLIA requirements. This test has not been cleared or approved by the U.S. Food and Drug Administration. Test Performed by: [facility] [place] [address] Concrete Batch Plant Operator: Greg Rudolph M.D. Ph.D.; CLIA# [id number] Blood 04/26/2023 12:3 0 AM EDT 04/28/2023 9:01 AM EDT Narrative Resulting Agency Comment Spec In Lab Farideh Machado MD LAB SEND OUT ORDER ENOC [facility] [place] [address] * Lyme IgG & IgM Antibody (04/26/2023 12:30 AM EDT) Lyme Antibody Negative Negative [facility] Lyme Ab Comment Negative result does not exclude possibility of infection. [facility] Comment: Please note that as of 06/18/2022 that this testing is performed by the Special Chemistry Laboratory at [facility]. This change in testing location is associated with a change in testing methodology. Blood 04/26/2023 12:3 0 AM EDT 04/28/2023 7:19 AM EDT Narrative Resulting Agency Comment Spec In Lab Farideh Machado MD IMMUNOLOGY ORDERAB LES Performing Organization Address City/[facility] Co de Phone Number [facility] [place] [address] * HSV 1 and 2 IgG Antibodies (04/26/2023 12:30 AM EDT) HSV Type 1 Ab, IgG Negative Negative [facility] HSV Type 2 Ab, IgG Negative Negative [facility] Blood 04/26/2023 12:3 0 AM EDT 04/28/2023 7:19 AM EDT Narrative Resulting Agency Comment Spec In Lab Farideh Machado MD IMMUNOLOGY ORDERAB LES Performing Organization Address [facility] Co de Phone Number [facility] [place] [address] * HIV Screen, 4th Generation (MC/CGP/APD/NLH) (04/26/2023 12:30 AM EDT) HIV Ab/Ag Screen Negative Negative [facility] Comment: This 4th Generation HIV test [...] HIV Comment Low Risk of HIV Infection [facility] Blood 04/26/2023 12:3 0 AM EDT 04/26/2023 1:01 AM EDT Narrative Resulting Agency Comment Spec In Lab Farideh Machado MD CHEMISTRY ORDERABL ES Performing Organization Address [facility] Network/[facility] Co de Phone Number [facility] [place] [address] * Hepatitis C Antibody (04/26/2023 12:30 AM EDT) Hepatitis C Antibody Negative Negative [facility] Blood 04/26/2023 12:3 0 AM EDT 04/26/2023 1:01 AM EDT Narrative Resulting Agency Comment Spec In Lab Farideh Machado MD CHEMISTRY ORDERABL ES Performing Organization Address City/[facility] Co de Phone Number [facility] [place] [address] * Hepatitis B Core Antibody, Total (04/26/2023 12:30 AM EDT) Hepatitis B Core Antibody Negative Negative [facility] Blood 04/26/2023 12:3 0 AM EDT 04/26/2023 1:01 AM EDT Narrative Resulting Agency Comment Spec In Lab Farideh Machado MD CHEMISTRY ORDERABL ES Performing Organization Address [facility] de Phone Number [facility] [place] [address] * Hepatitis B Surface Antibody (04/26/2023 12:30 AM EDT) Hepatitis B Surface Antibody, Quantitative <3.5 IU/L [facility] Comment: HepB Surface Ab Quant: Unvaccinated: < 8.5 IU/L Vaccinated: >= 11.5 IU/L Hepatitis B Surface Antibody Negative [facility] Comment: Patient is presumed to be not vaccinated or immune to HBV infection. Expected Results: Vaccinated: Positive Unvaccinated: Negative Blood 04/26/2023 12:3 0 AM EDT 04/26/2023 1:01 AM EDT Narrative Resulting Agency Comment Spec In Lab Farideh Machado MD CHEMISTRY ORDERABL ES Performing Organization Address City/[facility] Co de Phone Number [facility] [address] * Hepatitis B Surface Antigen (04/26/2023 12:30 AM EDT) Hepatitis B Surface Antigen Negative Negative [facility] Blood 04/26/2023 12:3 0 AM EDT 04/26/2023 1:01 AM EDT Narrative Resulting Agency Comment Spec In Lab Farideh Machado MD CHEMISTRY ORDERABL ES Performing Organization Address [facility] Co de Phone Number [facility] [place] [address] * Hepatitis A Antibody, Total (04/26/2023 12:30 AM EDT) Hepatitis A ANTIBODY, TOTAL Negative Negative [facility] Blood 04/26/2023 12:3 0 AM EDT 04/26/2023 1:01 AM EDT Narrative Resulting Agency Comment Spec In Lab Farideh Machado MD CHEMISTRY ORDERABL ES Performing Organization Address [facility] de Phone Number [facility] [place] [address] * (ABNORMAL) Free Light Chains, Serum (04/26/2023 12:30 AM EDT) [place] Free Light Chain 2.38 0.72 - 2.75 mg/dL [facility] Lambda Free Light Chain 2.69(H) 0.57 - 2.15 mg/dL [facility] [place]/Lambda FLC Ratio 0.8848 0.4000 - 2.5800 [facility] Blood 04/26/2023 12:3 0 AM EDT 04/26/2023 1:01 AM EDT Narrative Resulting Agency Comment Spec In Lab Farideh Machado MD CHEMISTRY ORDERABL ES Performing Organization Address [facility] Co de Phone Number [facility] [address] * (ABNORMAL) Protein Electrophoresis, serum (04/26/2023 12:30 AM EDT) Total Prot Electrophoresis 6.0(L) 6.1 - 8.0 g/dL [facility] Albumin Electrophoresis 3.80 3.20 - 5.20 g/dL [facility] Alpha 1 Globulin 0.18 0.10 - 0.30 g/dL [facility] Alpha 2 Globulin 0.62 0.40 - 0.90 g/dL [facility] Beta Globulin 0.65 0.50 - 1.00 g/dL [facility] Gamma Globulin 0.74 0.50 - 1.30 g/dL [facility] M1 Band None Detected None Detected [facility] Blood 04/26/2023 12:3 0 AM EDT 04/26/2023 1:01 AM EDT Narrative Resulting Agency Comment Spec In Lab Farideh Machdao MD CHEMISTRY ORDERABL ES Performing Organization Address City/[facility] Co de Phone Number [facility] [place] [address] * Rheumatoid factor, quant (04/26/2023 12:30 AM EDT) Rheumatoid Factor <10 <=14 IU/mL [facility] Blood 04/26/2023 12:3 0 AM EDT 04/26/2023 1:01 AM EDT Narrative Resulting Agency Comment Spec In Lab Farideh Machado MD CHEMISTRY ORDERABL ES Performing Organization Address [facility] Co de Phone Number [facility] [place] [address] * VON Antibody Screen (04/26/2023 12:30 AM EDT) VON Ab Screen Negative Negative [facility] Comment: This antinuclear antibody (VON) screen is a qualitative test performed using a fluoroenzyme immunoassay on the [employer] 250 analyzer. This screen is designed to [...] performed by the Special Chemistry Laboratory at [facility]. This change in testing location is associated with a change is testing method and reference intervals. Please review the results of this test in association with the posted reference intervals. dsDNA Ab 1.8 <=15.0 IU/mL [facility] Comment: <10 negative 10-15 equivocal >15 positive This dsDNA antibody result was generated using a fluoroenzyme immunoassay on the [employer] 250 analyzer. This quantitative test is designed to detect IgG antibodies directed against double stranded DNA in human serum. The presence of antibodies that recognize dsDNA is a highly specific marker for systemic lupus erythematosus. Please note that as of 12/04/2021 that this testing is performed by the Special Chemistry Laboratory at [facility]. This change in testing location is associated with a change is testing method and reference intervals. Please review the results of this test in association with the posted reference intervals. Blood 04/26/2023 12:3 0 AM EDT 04/28/2023 7:19 AM EDT Narrative Resulting Agency Comment Spec In Lab Farideh Machado MD LAB SEND OUT ORDER ENOC Performing Organization Address City/[facility]/ZIP Co de Phone Number [facility] [place] [address] * (ABNORMAL) Vitamin D, 25-Hydroxy (04/26/2023 12:30 AM EDT) Vitamin D Total 25 OH <6(L) 21 - 100 ng/mL [facility] Vit D Interp Deficient [facility] Blood 04/26/2023 12:3 0 AM EDT 04/26/2023 1:01 AM EDT Narrative Resulting Agency Comment Spec In Lab Farideh Machado MD CHEMISTRY ORDERABL ES Performing Organization Address [facility]/ZIP Co de Phone Number [facility] [place] [address] * (ABNORMAL) Iron and TIBC (04/26/2023 12:30 AM EDT) Iron 83 45 - 160 mcg/dL [facility] TIBC 245(L) 250 - 450 mcg/dL [facility] Iron Saturation 34 20 - 50 % [facility] Blood 04/26/2023 12:3 0 AM EDT 04/26/2023 1:01 AM EDT Narrative Resulting Agency Comment Spec In Lab Farideh Machado MD CHEMISTRY ORDERABL ES Performing Organization Address City/[facility]/ZIP Co de Phone Number [facility] [place] [address] * Ferritin (04/26/2023 12:30 AM EDT) Ferritin 341 31 - 409 ng/mL [facility] Comment: Please note that as of 01/15/2023, the reference intervals for Ferritin have been updated. Blood 04/26/2023 12:3 0 AM EDT 04/26/2023 1:01 AM EDT Narrative Resulting Agency Comment Spec In Lab Farideh Machado MD CHEMISTRY ORDERABL ES Performing Organization Address [facility]/ZIP Co de Phone Number [facility] [place] [address] * Folate, serum (04/26/2023 12:30 AM EDT) Folate 11.3 4.8 - 24.2 ng/mL [facility] Blood 04/26/2023 12:3 0 AM EDT 04/26/2023 1:01 AM EDT Narrative Resulting Agency Comment Spec In Lab Farideh Mcahado MD CHEMISTRY ORDERABL ES Performing Organization Address [facility]/ZIP Co de Phone Number [facility] [place] [address] * Vitamin B12 (04/26/2023 12:30 AM EDT) Vitamin B12 539 232 - 1,245 pg/mL [facility] Blood 04/26/2023 12:3 0 AM EDT 04/26/2023 1:01 AM EDT Narrative Resulting Agency Comment Spec In Lab Farideh Machado MD CHEMISTRY ORDERABL ES Performing Organization Address City/[facility]/ZIP Co de Phone Number [facility] [place] [address] * TSH (04/26/2023 12:30 AM EDT) Thyroid Stimulating Hormone 1.99 0.27 - 4.20 mcIU/mL [facility] Comment: Reference Interval (mcIU/mL): Females: ??First Trimester: 0.23-3.88 ??Second Trimester: 0.22-3.90 ??Third Trimester: 0.44-4.66 Blood 04/26/2023 12:3 0 AM EDT 04/26/2023 1:01 AM EDT Narrative Resulting Agency Comment Spec In Lab Farideh Machado MD CHEMISTRY ORDERABL ES Performing Organization Address [facility] de Phone Number [facility] [address] * Protein Electrophoresis, urine, random (04/25/2023 6:30 PM EDT) Protein, Urine <6 0 - 12 mg/dL [facility] U Albumin Not Perf [facility] Globulin, Urine Not Perf [facility] M1 Band, Urine Not Perf [facility] UPEP Comments See Note [facility] Comment: Total Protein concentration too low to fractionate using current electrophoretic technique. Urine 04/25/2023 6:30 PM EDT 04/25/2023 6:36 PM EDT Narrative Resulting Agency Comment Spec In Lab Farideh Machado MD URINE ORDERABLES Performing Organization Address [facility] de Phone Number [facility] [place] [address] * CARDIAC CATHETERIZATION (04/25/2023 11:20 AM EDT) Anatomical Region Laterality Modality Other Narrative 04/25/2023 10:24 PM EDT ?[facility] ? Cardiac Catheterization/Intervention Report ? Patient Name: Pierce, Alexis J. ? Procedure Date: 04/25/2023 ? A #: [id number] ? Primary Physician: El Dayton, Amr ? Case #: [id number] ? File Name: [id number] ? Catheterization Order Number: [id number] ? [facility] ? Final Report [place], [place] ? Patient Name: ? Alexis J. Pierce ? ID#: ?[id number] ? : ?1970 ? Procedure Date: ? April 25, 2023 ? Case #: ? [id number] ? Room: ? 2 ? Case Physician: ? Ivone Burris M.D. ?Start: ?11:02 ? Admission: ??04/23/2023 [...] procedure was Urgent. The indication for ?the laborer general visit is cardiomyopathy and LV dysfunction. Chest [...] angiography and left heart ?catheterization. ? Amr El Meligy, M.D. ? Report Finalized: 04/25/2023 ??22:14 ? Report Last Ammended: 04/25/2023 ??22:21 ? Procedure Note Ivone Hargrove MD - 04/25/2023 [facility] Cardiac Catheterization/Intervention Report Patient Name: Alexis Pelayo Procedure Date: 04/25/2023 A #: [id number] Primary Physician: Ivone Hargrove Case #: [id number] File Name: [id number] Catheterization Order Number: [id number] [facility] FinalReport [place], [place] Patient Name: Alexis Pelayo ID#:[id number] :1970 Procedure Date: April 25, 2023 Case [...] was designated as ASA Class III. The [facility] clinicalfrailty scale is 3: Managing Well. Diagnostic Tests: Prior Coronary Angiography: LV ejection fraction within 6 months is 20%. Electrocardiography: EKG was assessed by ECG. EKG was Abnormal. EKG showed other abnormality. Indications for Diagnostic Cath: The priority of the diagnostic procedure was Urgent. The indicationfor the laborer general visit is cardiomyopathy and LV dysfunction. Chest [...] AM EDT) UF Heparin 1.62(Crit ical) IU/mL [facility] Comment: Critical Result called by ?? JAZZMINE CRITICAL Results read back by: ? Buddy [...] Lab Vazquez Lan MD HEMATOLOGY ORDERABLE S [facility] [address] * (ABNORMAL) Differential, Automated (04/25/2023 3:37 AM EDT) Pathologist [facility] Neutrophil % 58.0 % [facility] Neutrophil Absolute 5.74 1.70 - 6.10 x10(3)/ L [facility] Lymph % 23.2 % [facility] Lymphocytes Abs 2.3 0.9 - 3.2 x10(3)/[facility] Monocyte % 10.2 % [facility] Monocyte Abs 1.0(H) 0.3 - 0.9 x10(3)/ L [facility] Eos % 4.3 % [facility] Eosinophils Abs 0.4 0.0 - 0.4 x10(3)/[facility] Basophil % 1.3 % [facility] Baso Absolute 0.1 0.0 - 0.1 x10(3)/[facility] Immature Gran % 3.00 % [facility] Comment: Immature granulocytes(IG's)percentage and absolute count will include metamyelocytes, myelocytes, and promyelocytes. Blood smears from CBCs yielding IG's will be scanned manually for concordance. If this scan disagrees with the automated IG or if promyelocytes are noted, a manual differential will be performed. Immature Gran Absolute 0.30(H) 0.00 - 0.04 x10(3)/ L [facility] Blood 04/25/2023 3:37 AM EDT 04/25/2023 3:49 AM EDT Narrative Resulting Agency Comment Spec In Lab Vazquez Lan MD HEMATOLOGY ORDERABLE S [facility] [address] * (ABNORMAL) Hemogram (04/25/2023 3:37 AM EDT) Pathologist [facility] White Blood Cell 9.9(H) 4.0 - 9.5 x10(3)/mc L [facility] Red Blood Cell 3.79(L) 4.58 - 5.54 x10(6)/[facility] Hemoglobin 11.6(L) 13.7 - 16.5 g/dL [facility] Hematocrit 35.1(L) 40.5 - 48.5 % [facility] Mean Cell Volume 92.6 82.9 - 93.1 fL [facility] Mean Cell Hemoglobin 30.6 27.5 - 32.1 pg [facility] Mean Cell Hemoglobin Concentration 33.0 32.0 - 35.7 g/dL [facility] Platelet 517(H) 145 - 357 x10(3)/mc L [facility] RDW Standard Deviation 46.6(H) 36.0 - 45.0 fL [facility] RDW coefficient of variation 14.2(H) 11.4 - 13.8 % [facility] Mean Platelet Volume 9.6 7.6 - 12.9 fL [facility] NRBC% auto 0.0 % [facility] NRBC Absolute 0.000 0.000 - 0.000 x10(3)/mc L [facility] Blood 04/25/2023 3:37 AM EDT 04/25/2023 3:49 AM EDT Narrative Resulting Agency Comment Spec In Lab Vazquez Lan MD HEMATOLOGY ORDERABLE S Performing Organization Address City/[facility] Co de Phone Number [facility] [address] * Magnesium (04/25/2023 3:37 AM EDT) Magnesium 0.84 0.69 - 1.07 mmol/L [facility] Blood 04/25/2023 3:37 AM EDT 04/25/2023 3:49 AM EDT Narrative Resulting Agency Comment Spec In Lab Vazquez Lan MD CHEMISTRY ORDERABLES Performing Organization Address City/[facility]/ZIP Co de Phone Number [facility] [address] * (ABNORMAL) Basic Metabolic Panel (non-fasting) (04/25/2023 3:37 AM EDT) Glucose 106 65 - 199 mg/dL [facility] Comment:Diabetes: >=200 mg/d L plus symptoms Blood Urea Nitrogen 12 10 - 20 mg/dL [facility] Creatinine 0.74(L) 0.80 - 1.50 mg/dL [facility] Sodium 139 135 - 145 mmol/L [facility] Potassium 4.3 3.5 - 5.0 mmol/L [facility] Comment: Please note: ??Patients with WBC >100,000 may have falsely elevated Potassium levels. ??For accurate Potassium quantification in these patients send serum separator tube (gold top) for subsequent determinations. ??Contact the Clinical Chemistry Laboratory if there are any questions. Chloride 101 98 - 107 mmol/L [facility] Carbon Dioxide 30 22 - 31 mmol/L [facility] Anion Gap 8 5 - 15 mmol/L [facility] Calcium 8.9 8.5 - 10.5 mg/dL [facility] Est Glomerular Filtration Rate 110 >=60 mL/min/1. 73 m?? [facility] Comment: This patient's estimated [...] Vazquez Lan MD CHEMISTRY ORDERABLES [facility] [place] [address] * Heparin (unfractionated) Level (04/25/2023 3:37 AM EDT) UF Heparin 0.29 IU/mL [facility] Comment: Heparin (anti-Xa) [...] Lab Vazquez Lan MD HEMATOLOGY ORDERABLE S [facility] [place] [address] * Heparin (unfractionated) Level (04/24/2023 8:30 PM EDT) UF Heparin 0.15 IU/mL [facility] Comment: Heparin (anti-Xa) levels should [...] Lab Vazquez Lan MD HEMATOLOGY ORDERABLE S [facility] [address] * Heparin (unfractionated) Level (04/24/2023 1:15 PM EDT) UF Heparin 0.55 IU/mL [facility] Comment: Heparin (anti-Xa) [...] MD HEMATOLOGY ORDERABLE S Performing Organization Address City/State/[facility] Co de Phone Number [facility] [place] [address] * EKG 12 Lead (04/24/2023 7:14 AM EDT) Ventricular rate 67 BPM MUSE SYSTEM Atrial Rate 67 BPM MUSE SYSTEM P-R Interval 142 ms MUSE SYSTEM QRS Duration 74 ms MUSE SYSTEM Q-T Interval 410 ms MUSE SYSTEM QTC Calculated (Bezet) 433 ms MUSE SYSTEM Calculated P [place] 66 degrees MUSE SYSTEM Calculated R [place] 8 degrees MUSE SYSTEM Calculated T [place] 91 degrees MUSE SYSTEM INTERPRETATION Normal sinus rhythm T wave abnormality, consider anterolateral ischemia Abnormal ECG When compared with ECG of 23-APR-2023 22:45, T wave abnormality improved in inferior leads I personally reviewed the tracing and edited the fellows interpretation Confirmed by fellow MD Kearns Andrew ([id number]) on 04/24/2023 10:35:23 AM Confirmed by Von Palmer ([id number]) on 04/25/2023 5:36:31 PM MUSE SYSTEM 04/24/2023 7:14 AM EDT 04/25/2023 5:36 PM EDT Vazquez Lan MD ECG ORDERABLES MUSE SYSTEM * ABORH Recheck Status (04/24/2023 4:29 AM EDT) ABORH Recheck Order Order Placed [facility] ABORH Type Recheck Completed [facility] Blood 04/24/2023 4:29 AM EDT 04/24/2023 5:20 AM EDT Narrative Resulting Agency Comment Spec In Lab Vazqeuz Lan MD BLOOD BANK LAB ORDER ENOC [facility] [address] * (ABNORMAL) Differential, Automated (04/24/2023 4:29 AM EDT) Neutrophil % 60.8 % [facility] Neutrophil Absolute 7.31(H) 1.70 - 6.10 x10(3)/mc L [facility] Lymph % 21.0 % [facility] Lymphocytes Abs 2.5 0.9 - 3.2 x10(3)/mc L [facility] Monocyte % 11.6 % [facility] Monocyte Abs 1.4(H) 0.3 - 0.9 x10(3)/mc L [facility] Eos % 2.1 % [facility] Eosinophils Abs 0.2 0.0 - 0.4 x10(3)/mc L [facility] Basophil % 0.7 % [facility] Baso Absolute 0.1 0.0 - 0.1 x10(3)/mc L [facility] Immature Gran % 3.80 % [facility] Comment: Immature granulocytes(IG's)percentage and absolute count will include metamyelocytes, myelocytes, and promyelocytes. Blood smears from CBCs yielding IG's will be scanned manually for concordance. If this scan disagrees with the automated IG or if promyelocytes are noted, a manual differential will be performed. Immature Gran Absolute 0.46(H) 0.00 - 0.04 x10(3)/mc L [facility] Blood 04/24/2023 4:29 AM EDT 04/24/2023 5:13 AM EDT Narrative Resulting Agency Comment Spec In Lab Vazquez Lan MD HEMATOLOGY ORDERABLE S [facility] [address] * (ABNORMAL) Hemogram (04/24/2023 4:29 AM EDT) White Blood Cell 12.0(H) 4.0 - 9.5 x10(3)/mc L [facility] Red Blood Cell 3.74(L) 4.58 - 5.54 x10(6)/mc L [facility] Hemoglobin 11.4(L) 13.7 - 16.5 g/dL [facility] Hematocrit 35.5(L) 40.5 - 48.5 % [facility] Mean Cell Volume 94.9(H) 82.9 - 93.1 fL [facility] Mean Cell Hemoglobin 30.5 27.5 - 32.1 pg [facility] Mean Cell Hemoglobin Concentration 32.1 32.0 - 35.7 g/dL [facility] Platelet 589(H) 145 - 357 x10(3)/mc L [facility] RDW Standard Deviation 46.0(H) 36.0 - 45.0 fL [facility] RDW coefficient of variation 13.9(H) 11.4 - 13.8 % [facility] Mean Platelet Volume 10.2 7.6 - 12.[address] [facility] NRBC% auto 0.2 % [facility] NRBC Absolute 0.020(H) 0.000 - 0.000 x10(3)/mc L [facility] Blood 04/24/2023 4:29 AM EDT 04/24/2023 5:13 AM EDT Narrative Resulting Agency Comment Spec In Lab Vazquez Lan MD HEMATOLOGY ORDERABLE S [facility] [address] * Heparin (unfractionated) Level (04/24/2023 4:29 AM EDT) UF Heparin 0.11 IU/mL [facility] Comment: Specimen drawn more [...] Lab Vazquez Lan MD HEMATOLOGY ORDERABLE S [facility] [place] [id number] * (ABNORMAL) Hemoglobin A1c (04/24/2023 4:29 AM EDT) Hemoglobin A1c 6.2(H) 4.3 - 5.6 % [facility] Comment: Reference Range: 4.3 - 5.6% [...] Mellitus, Diabetes Care 2013; 36: Suppl. 1, K21-02 Estimated Average Glucose 130 mg/dL [facility] Blood 04/24/2023 4:29 AM EDT 04/24/2023 5:13 AM EDT Narrative Resulting Agency Comment Spec In Lab Vazquez Lan MD CHEMISTRY ORDERABLES [facility] [place] [address] * Lipid Panel (Reflex Direct LDL) (04/24/2023 4:29 AM EDT) [facility] Signature Cholesterol, Total 135 mg/dL [facility] Comment: Desirable: ? <200 mg/dL Borderline High: 200-239 mg/dL Higher: ?>dr=947 mg/dL Triglyceride 76 mg/dL [facility] Comment: Normal: ?<150 mg/dL Borderline High: 150-199 mg/dL High: ?200-499 mg/dL Very High: ? >bn=422 mg/dL HDL Cholesterol 47 mg/dL [facility] Comment: Females: High Risk: <50 mg/dL Males: High Risk: <40 mg/dL LDL Cholesterol 73 mg/dL [facility] Comment: Desirable: ? <100 mg/dL Above Desirable: 100-129 mg/dL Borderline High: 130-159 mg/dL High: ?160-189 mg/dL Very High: ? >nd=474 mg/dL Cholesterol/HDL Ratio 2.9 ratio [facility] Lipid Interpretation See Note [facility] Comment: It is important to review [...] ACC/AHA Guidelines (most recently Scarlett et al. [facility] 11/13/21): ?? For individuals with atherosclerotic cardiovascular disease (ASCVD)or LDL >yp=323 mg/dL, use a high-intensity statin (40-80 mg [...] In Lab Vazquez Lan MD CHEMISTRY ORDERABLES [facility] [place] [address] * Type and screen ([facility]/EDWARDO) (04/24/2023 4:29 AM EDT) ABORH Type A NEGATIVE [facility] Patient BB History Not Found [facility] Expires at 0588 on: 04-27-2023 [facility] Ab Screen Interp Negative [facility] Blood 04/24/2023 4:29 AM EDT 04/24/2023 4:29 AM EDT Narrative [facility] - 04/24/2023 4:29 AM EDT This Type and Screen result is only valid at the [facility] Resulting Agency Comment Spec In Lab Vazquez Lan MD BLOOD BANK LAB ORDER ENOC Performing Organization Address City/[facility] Co de Phone Number [facility] [place] [address] * Magnesium (04/24/2023 4:29 AM EDT) Magnesium 0.79 0.69 - 1.07 mmol/L [facility] Blood 04/24/2023 4:29 AM EDT 04/24/2023 5:13 AM EDT Narrative Resulting Agency Comment Spec In Lab Vazquez Lan MD CHEMISTRY ORDERABLES Performing Organization Address [facility] Co de Phone Number [facility] [place] [address] * (ABNORMAL) Basic Metabolic Panel (non-fasting) (04/24/2023 4:29 AM EDT) Glucose 99 65 - 199 mg/dL [facility] Comment:Diabetes: >=200 mg/d L plus symptoms Blood Urea Nitrogen 14 10 - 20 mg/dL [facility] Creatinine 0.81 0.80 - 1.50 mg/dL [facility] Sodium 138 135 - 145 mmol/L [facility] Potassium 3.6 3.5 - 5.0 mmol/L [facility] Comment: Please note: ??Patients with WBC >100,000 may have falsely elevated Potassium levels. ??For accurate Potassium quantification in these patients send serum separator tube (gold top) for subsequent determinations. ??Contact the Clinical Chemistry Laboratory if there are any questions. Chloride 98 98 - 107 mmol/L [facility] Carbon Dioxide 32(H) 22 - 31 mmol/L [facility] Anion Gap 8 5 - 15 mmol/L [facility] Calcium 8.8 8.5 - 10.5 mg/dL [facility] Est Glomerular Filtration Rate 107 >=60 mL/min/1. 73 m?? [facility] Comment: This patient's estimated [...] Lan MD CHEMISTRY ORDERABLES Performing Organization Address City/[facility]/[place] [address] * EKG 12 Lead (04/23/2023 10:45 PM EDT) Ventricular rate 86 BPM MUSE SYSTEM Atrial Rate 86 BPM MUSE SYSTEM P-R Interval 140 ms MUSE SYSTEM QRS Duration 74 ms MUSE SYSTEM Q-T Interval 402 ms MUSE SYSTEM QTC Calculated (Bezet) 481 ms MUSE SYSTEM Calculated P Franklin 64 degrees MUSE SYSTEM Calculated R Franklin 48 degrees MUSE SYSTEM Calculated T Franklin 149 degrees MUSE SYSTEM INTERPRETATION Normal sinus rhythm T wave abnormality, consider anterolateral ischemia T wave abnormality, consider inferior ischemia Abnormal ECG No previous ECGs available I personally reviewed the tracing and edited the fellows interpretation Confirmed by fellow MD Urmila, Alexis ([id number]) on 04/24/2023 10:29:48 AM Confirmed by Von Palmer ([id number]) on 04/25/2023 5:36:26 PM MUSE SYSTEM 04/23/2023 10:4 5 PM EDT 04/25/2023 5:36 PM EDT Vazquez Lna MD ECG ORDERABLES Performing Organization Address City/[facility]/ZIP Co de Phone Number MUSE SYSTEM documented in this encounter Visit [...] Until Discontinued, Routine 1319 (Given - Provider: Leaenn Stafford RN) 0738 (Given - Provider: Nicholas Santana, PATRICIA)0900 (Not Given - Provider: Nicholas Santana RN - Reason: See comment - Comment: given prior to breakfast per pt request) budesonide-formoteroL (Symbicort) 160-4.5 mcg/actuation inhaler 2 Inhalation 2 .Inhalation , Inhalation, 2 TIMES DAILY, First dose on Anabella 04/24/23 at 0900, Until Discontinued, Prime inhaler before first use or if has not been used for more than 5 days. Shake well prior to each use. Rinse mouth with water (spit out without swallowing) after each use., Routine 0811 (Given - Provider: Irma Rodney, PATRICIA)2159 (Given - Provider: Edel Garcia RN) 0823 [...] TIMES DAILY BEFORE MEALS, First dose on Anabella 04/24/23 at 0730, Until Discontinued, Routine 0638 (Given - Provider: Christie Solomon RN)1722 (Given - Provider: Irma Rodney, PATRICIA) 0647 (Given - Provider: Edel Garcia, PATRICIA)1040 (APR Hold - Provider: Admin Adt - Reason: Transfer to a Procedural area)1144 (MAR Unhold - Provider: Admin Adt)1628 (Given - Provider: Leeann Stafford RN) 0739 (Given - Provider: Nciholas Santana, PATRICIA) HYDROmorphone (Dilaudid) tablet 4 mg [...] Stafford RN) 0738 (Given - Provider: Nicholas Santana, PATRICIA)0900 [...] Rodney, PATRICIA)2159 (Given - Provider: Edel Garcia, RN) 0641 (Given - Provider: Edel Garcia, PATRICIA)1040 (MAR Hold - Provider: Admin Adt - [...] 0822 (Given - Provider: Leeann Stafford RN)1040 ([facility] Hold - Provider: Admin Adt - [...] Discontinued, Routine 0810 (Given - Provider: Irma Rodney RN)2159 (Given - Provider: Edel Garcia, PATRICIA) 0822 [...] Discontinued, Routine 1628 (Given - Provider: Leeann Stafford RN) senna-docusate (Pericolace) 8.6-50 mg per tablet 1 [...] Irma Rodney RN)2100 (Given - Provider: Edel Garcia, PATRICIA) 0823 (Given - Provider: Leeann Stafford RN)1040 (APR Hold - Provider: Admin Adt - Reason: Transfer to a Procedural area)1144 (APR Unhold - Provider: Admin Adt)2104 (Given - Provider: Cassi Kebede, PATRICIA) 0900 (Not Given - Provider: Nicholas Santana RN - Reason: Patient/family refused) tiotropium bromide (Spiriva Respimat) 2.5 mcg/actuation inhaler 2 puff 2 puff, Inhalation, DAILY, First dose on Anabella 04/24/23 at 0900, Until Discontinued 0811 (Given - [...] Units/hr (0-100 mL/hr), Intravenous, CONTINUOUS, Starting on 04/23/23 at 2315, Until Fri04/25/23 at 1306, Begin [...] RN)2205 (Rate/Dose Change - Provider: Edel Garcia, RN) 0410 (Rate/Dose Change - Provider: Edel Garcia, RN)1015 (Stopped - Provider: Leeann Stafford, PATRICIA)1040 (APR Hold - Provider: Admin Adt - Reason: Transfer to a Procedural area)1144 (APR Unhold - Provider: Admin Adt) sodium chloride 0.9% infusion () 75 mL/hr, Intravenous, CONTINUOUS, Starting on Fri04/25/23 at 1200, Until Fri04/25/23 at 1459, Recovery (Recovery-Hospital Unit) 1157 (New Bag - Provider: Leeann Stafford, PATRICIA)1445 (Stopped - Provider: Leeann Stafford, PATRICIA) PRN Medication Order 04/24/2023 04/25/2023 04/26/2023 acetaminophen [...] Adt)1628 (Given - Provider: Leeann Stafford, PATRICIA) calcium carbonate (TUMS) chewable tablet 500-1,000 mg 500-1,000 mg, Oral, EVERY 4 HOURS PRN, Starting on Fri04/25/23 at 1952, Until 04/26/23 at 1452, Heartburn, Give 500 mg (1 tablet) for mild to moderate heartburn. Give 1,000 mg (2 tablets) for severe heartburn., Routine 2008 (Given - Provider: Cassi Kebede, PATRICIA) fentaNYL (pf) (50 mcg/mL) multi-dose injection (CANCELED) [...] than 0.2 international unit/mL: No Bolus, Routine 06 (Given - Provider: Christie Solomon, PATRICIA)2207 (Given - Provider: Edel Garcia, PATRICIA) 1040 (APR Hold - Provider: Admin Adt - Reason: Transfer to a Procedural area)1144 (MAR Unhold - Provider: Admin Adt) heparin (porcine) (1,000 units/mL) injection (CANCELED) PRN, Starting on Fri04/25/23 at 1103, Until Fri04/25/23 at 1120, Intra-Operative (Intra-Procedure), Routine 1103 (Given - Provider: Edel Lopez RN) lidocaine (Xylocaine) 1% (10 mg/mL) injection 3 mg 3 mg (0.3 mL), Subcutaneous, ONCE PRN, 1 dose, Starting on 04/23/23 at 2141, Until Fri04/26/23 at 1452, for [...] Sublingual, EVERY 5 MIN PRN, Starting on 04/23/23 at 2141, Until 04/26/23 at 1452, Chest [...] - Reason: Transfer to a Procedural area)1144 ([facility] Unhold - Provider: Admin Adt) nitroGLYcerin [...] - Reason: Transfer to a Procedural area)1144 ([facility] Unhold - Provider: Admin Adt) prochlorperazine [...] Routine documented in this encounter Care Teams Operations Program Manager Relationship Specialty Start Date End Date Nikki Hermosillo APRN [facility] [place] [address] PCP - General Family Medicine 04/25/23 documented as of this encounter
--- OUTSIDE RECORDS SUMMARY | 2023-12-29 18:17 | XMS_ITS | Encounter Summary ---
Author Organization [facility] Address [facility] [place] [address] Care Team Providers Care Music Orchestrator Name Role Phone None Primary Care Provider [...] PEMETREXED, 10MG, INJECTION (ALIMTA) Cody Frazier MD [address] [place] [address] [place] [address] Cody Frazier MD [address] [place] [address] [place] [address] Referral ID Status Reason Start Date Expiration Date V isits Requested Visits Authorized [id number] Authorized 02/10/2022 08/10/2023 1 103 Encounter Details Date Type Department Care Team (Late st Contact Info) Description 03/31/2023 2:00 PM EST Infusion Hematology Oncology at [address] [phone] Malignant neoplasm of lower lobe, [...] PM EST TH Visit (TeleHealth) Hematology/Oncology at [address] [phone] Cody Frazier MD [facility] DR HEMATOLOGY [place] [address] Bea Grimes APRN [address] [place] [address] [place] [address] documented as of this encounter Visit Diagnoses [...] 2 minutes is a recommendation from the global supply chain vice president. Administer prior to chemotherapy., Routine Given 03/31/2023 [...] mL/hr documented in this encounter Care Teams Music Orchestrator Relationship Specialty Start Date End Date None None PCP - General 04/03/22 04/24/23 documented as of this encounter
--- OUTSIDE RECORDS SUMMARY | 2023-12-29 18:17 | XMS_ITS | Encounter Summary ---
Author Organization [facility] Address [facility] [place] [address] Care Team Providers Care Kindergarten Assistant Name Role Phone None Primary Care Provider Unavailabl e Encounter Details Date Type Department Care Team (Late st Contact Info) Description 04/22/2023 Telephone Cardiology at [address] [place] [phone] Martinez Moura PA [facility] [place] [address] Social History Tobacco Use Types Packs/Day Years [...] PM Referring Provider: Dr. Morales Patient Location: [facility] Brief History Please see prior note by Dr. Macdonald for more details on presentation. 52 y.o male with Hx of metastatic NSCLC and COPD who was admitted on 04/16 with respiratory failure requiring intubation. Found to have elevated troponin >2,000. [place] to be secondary to demand ischemia at the time however he was treated for ACS with 48 hours of IV heparin. Since admission, he has been extubated, weaned off pressors and is on room air. TTE obtained showed LVEF <20% with regional WMA's. Cardiology at [facility] recommended transfer to [facility] for ischemic evaluation. Vital sign: VSS Pertinent [...] chest tightness. Euvolemic on exam. Cardiology at [facility] recommended transfer to [facility] for ischemic evaluation.Accepted for transfer 04/22. Above recommendations were based on my discussion with Dr. Morales; I have not personally interviewed or examined this patient. I encouraged them to contact us if there is any change in symptoms, decision- making, or further need for guidance in management. Martinez Moura PA-C Access Pager [phone] 04/22/2023 documented in this encounter Plan of Treatment Upcoming Encounters Date Type Department Care Team (Late st Contact Info) Description 01/05/2024 2:30 PM EST TH Visit (TeleHealth) Hematology/Oncology at [address] [phone] Cody Frazier MD [facility] DR [place] [address] Bea Grimes APRN [address] [place] [address] DR HEMATOLOGY AND ONCOLOGY [place], [place] [id number] documented as of this encounter Visit Diagnoses Not on filedocumented in this encounter Care Teams Kindergarten Assistant Relationship Specialty Start Date End Date None None PCP - General 04/03/22 04/24/23 documented as of this encounter
--- OUTSIDE RECORDS SUMMARY | 2023-12-29 18:17 | XMS_ITS | Encounter Summary ---
Author Organization [facility] Address [facility] [place] [id number] Care Team Providers Care Barrel Filler Head Name Role Phone None Primary Care Provider [...] PM EST TH Visit (TeleHealth) Hematology/Oncology at [address] [phone] Cody Frazier MD [facility] [place] [address] Bea Grimes APRN [address] [place] [address] DR HEMATOLOGY AND ONCOLOGY [place], [place] [id number] documented as of this encounter Visit Diagnoses Not on filedocumented in this encounter Care Teams Barrel Filler Head Relationship Specialty Start Date End Date None None PCP - General 04/03/22 04/24/23 documented as of this encounter
--- OUTSIDE RECORDS SUMMARY | 2023-12-29 18:17 | XMS_ITS | Encounter Summary ---
Author Organization [facility] Address [facility] [place] [address] Care Team Providers Care Psychometrician Name Role Phone None Primary Care Provider Unavailabl e Encounter Details Date Type Department Care Team (Late st Contact Info) Description 03/03/2023 3:00 PM EST Ancillary Procedure Radiology Library at [facility] [place] [place] [phone] Cody Frazier MD [facility] HEMATOLOGY [place] [address] Social History Tobacco Use Types Packs/Day Years [...] EST TH Visit (TeleHealth) Hematology/Oncology at [address] [phone] Cody Frazier MD [facility] DR [place] [address] Bea Grimes APRN [address] [place] [address] DR HEMATOLOGY [place] [address] documented as of this encounter Procedures Procedure Name Priority Date/Time Associated Diagnosis Comments FILM LIBRARY STORAGE ONLY CT CHEST Routine 03/03/2023 2:57 PM EST documented in this encounter Results * Film Library- Storage Only CT Chest (03/03/2023 2:57 PM EST) Narrative HENNA - 03/03/2023 2:57 PM EST This exam is auto-finalizing. It's purpose is for storage only. Cody Frazier MD IMG FILM LIBRARY ORD ERABLES [place], [place] documented in this encounter Visit Diagnoses Not on filedocumented in this encounter Care Teams Psychometrician Relationship Specialty Start Date End Date None None PCP - General 04/03/22 04/24/23 documented as of this encounter
--- OUTSIDE RECORDS SUMMARY | 2023-12-29 18:17 | XMS_ITS | Encounter Summary ---
Author Organization [facility] Address [facility] [place] [address] Care Team Providers Care Rig Hand Name Role Phone None Primary Care Provider Unavailabl e Encounter Details Date Type Department Care Team (Late st Contact Info) Description 03/10/2023 10:30 AM EST Office Visit Hematology/Oncology at [address] [phone] Cody Frazier MD [facility] DR [place]AT[place] [address] Bea Grimes, IGNACIA [address] [place] [address] DR HEMATOLOGY AND ONCOLOGY [place], [place] [id number] Malignant neoplasm of lower lobe, right bronchus [...] not included. Hematology & Medical Oncology [address] [address] Alexis Pelayo is being seen for the evaluation of lung cancer. Assessment & Plan: Alexis Pelayo is a 52 y.o. male patient with a past medical history significant for COPD, a 25-jbnj-zylp smoking history, chronic migraine headaches diagnosed with [...] [facility] but if further increases areneeded would [...] to normal. He does not have a insole taper. We discussed that this may be helpful in managing his COPD as it evolves, but he is not interested in a referral at this time. FEN - improved appetite on marinol and weight has improved since the Summer. Cody Frazier MD, MS 03/10/2023 Medical Oncology & Hematology [facility] [place] CC: HPI/Interval History/Subjective: Last seen 02/12/2023 I'm ready to go I needed a break Lung felt bad ([facility] and eating better. Marinol helps Right hand having a lot of issues where the muscle spasms. Has to wait until it relieves. Has bad arthritis. No fevers (nevers gets fevers he notes). No infections since having issues at [facility]. Heat seems to be a trigger [...] Social History/Support Network: Home situation: From the [place] originally. Came up here because of family Has a sister Kristine Brantley who lives [place] who is his DPOA. 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 [...] a past medical history significant forCOPD, a 75-xivs-nhdk smoking history, chronic migraine headaches who was [...] is favored. The biopsy may not be international sales representative of the clinical mass lesion. [...] 2:30 PM EST Visit (TeleHealth) Hematology/Oncology at [address] [phone] Cody Frazier MD [facility] DR [place] [address] Bea Grimes APRN [address] [place] [address] DR HEMATOLOGY AND ONCOLOGY [place], [place] [address] documented as of this encounter Visit Diagnoses Diagnosis Malignant neoplasm of lower lobe, right bronchus or lung Secondary malignant neoplasm of bone Secondary malignant neoplasm of bone and bone marrow Neoplasm related pain Neoplasm related pain (acute) (chronic) Weight loss Loss of weight documented in this encounter Care Teams Rig Hand Relationship Specialty Start Date End Date None None PCP - General 04/03/22 04/24/23 documented as of this encounter
--- OUTSIDE RECORDS SUMMARY | 2023-12-29 18:17 | XMS_ITS | Encounter Summary ---
Author Organization [facility] Address [facility] [place] [id number] Care Team Providers Care Chief Of Surgery Name Role Phone None Primary Care Provider [...] PM EST TH Visit (TeleHealth) Hematology/Oncology at [address] [phone] Cody Frazier MD [facility] [place] [address] Bea Grimes APRN [address] [place] [address] DR HEMATOLOGY AND ONCOLOGY [place], [place] [address] documented as of this encounter Visit Diagnoses Not on filedocumented in this encounter Care Teams Chief Of Surgery Relationship Specialty Start Date End Date None None PCP - General 04/03/22 04/24/23 documented as of this encounter
--- OUTSIDE RECORDS SUMMARY | 2023-12-29 18:17 | XMS_ITS | Encounter Summary ---
Author Organization [facility] Address [facility] [place] [address] Care Team Providers Care Rippler Name Role Phone None Primary Care Provider Unavailabl e Encounter Details Date Type Department Care Team (Late st Contact Info) Description 03/26/2023 Orders Only Hematology/Oncology at [address] [phone] Bea Grimes APRN [address] [place] [address] DR HEMATOLOGY [place] [address] Neoplasm related pain Social History [...] EST TH Visit (TeleHealth) Hematology/Oncology at [address] [phone] Cody Frazier MD [facility] DR HEMATOLOGY [place] [address] Bea Grimes APRN [address] [place] [address] DR HEMATOLOGY [place] [address] documented as of this encounter Visit Diagnoses Diagnosis Neoplasm related pain Neoplasm related pain (acute) (chronic) documented in this encounter Care Teams Rippler Relationship Specialty Start Date End Date None None PCP - General 04/03/22 04/24/23 documented as of this encounter
--- OUTSIDE RECORDS SUMMARY | 2023-12-29 18:18 | XMS_ITS | Encounter Summary ---
Author Organization [facility] Address [facility] [place] [address] Care Team Providers Care Fire Warden Name Role Phone None Primary Care Provider [...] AUC = 5 Cody Frazier MD [address] [place] [address] DR HEMATOLOGY [place] [address] Cody Frazier MD [address] [place] [address] DR HEMATOLOGY [place] [address] Referral ID Status Reason Start Date Expiration Date Visits Re quested Visits Authorized [id number] Closed 02/10/2022 2022 99 99 Encounter Details Date Type Department Care Team (Late st Contact Info) Description 09/02/2022 3:00 PM EDT Infusion Hematology Oncology at [address] [phone] Malignant neoplasm of lower lobe, right bronchus [...] PM EST TH Visit (TeleHealth) Hematology/Oncology at [address] [phone] Cody Frazier MD [facility] DR [place] [address] Bea Grimes APRN [address] [place] [address] DR HEMATOLOGY AND ONCOLOGY [place], [place] [address] documented as of this encounter Visit Diagnoses [...] mL/hr documented in this encounter Care Teams Fire Warden Relationship Specialty Start Date End Date None None PCP - General 04/03/22 04/24/23 documented as of this encounter
--- OUTSIDE RECORDS SUMMARY | 2023-12-29 18:18 | XMS_ITS | Encounter Summary ---
Author Organization [facility] Address [facility] [place] [id number] Care Team Providers Care Country Singer Name Role Phone None Primary Care Provider Unavailabl e Encounter Details Date Type Department Care Team (Late st Contact Info) Description 11/20/2022 Notes Only Hematology/Oncology at [address] [phone] Lorraine Huerta, [facility] OFFICE OF CARE MANAGEMENT Social History Tobacco [...] PM EST TH Visit (TeleHealth) Hematology/Oncology at [address] [phone] Cody Frazier MD [facility] DR HEMATOLOGY [place] [address] Bea Grimes APRN [address] [place] [address] [place] [address] documented as of this encounter Visit Diagnoses Not on filedocumented in this encounter Care Teams Country Singer Relationship Specialty Start Date End Date None None PCP - General 04/03/22 04/24/23 documented as of this encounter
--- OUTSIDE RECORDS SUMMARY | 2023-12-29 18:18 | XMS_ITS | Encounter Summary ---
Author Organization [facility] Address [facility] [place] [address] Care Team Providers Care Bobbin Washer Name Role Phone None Primary Care Provider [...] PEMETREXED, 10MG, INJECTION (ALIMTA) Cody Frazier MD [address] [place] [address] [place] [address] Cody Frazier MD [address] [place] [address] [place] [address] Referral ID Status Reason Start Date Expiration Date V isits Requested Visits Authorized [id number] Authorized 02/10/2022 08/10/2023 1 103 Encounter Details Date Type Department Care Team (Late st Contact Info) Description 12/09/2022 11:00 AM EDT Infusion Hematology Oncology at [address] [phone] Malignant neoplasm of lower lobe, [...] as of this encounter Progress Notes * Mohiin Caal RN - 12/09/2022 11:00 AM EDT INFUSION THERAPY ADMINISTRATION NOTES DIAGNOSIS: NSCLC CYCLE #: 4, Day 1 REASON FOR VISIT: Carbo/Pemetrexed SUBJECTIVE: Alexis offers no complaints, he met with Bea Grimes APRN prior to infusion, ready for treatment. OBJECTIVE: LAB DATA: completed today at [facility] IV ACCESS: PIV Pre administration: Chemotherapy [...] EST TH Visit (TeleHealth) Hematology/Oncology at [address] [phone] Cody Frazier MD [facility] [place] [address] Bea Grimes APRN [address] [place] [address] DR [place] [address] documented as of this encounter [...] 2 minutes is a recommendation from the cyber incident analyst. Administer prior to chemotherapy., Routine Given 12/09/2022 [...] 900 mg, Intravenous, ONCE, 1 dose, On Fri12/09/22 at 1215, Administer over 10 Minutes New Bag 12/09/2022 12:00 PM EDT 900 mg 816 mL/hr documented in this encounter Care Teams Bobbin Washer Relationship Specialty Start Date End Date None None PCP - General 04/03/22 04/24/23 documented as of this encounter
--- OUTSIDE RECORDS SUMMARY | 2023-12-29 18:18 | XMS_ITS | Encounter Summary ---
Author Organization [facility] Address [facility] [place] [address] Care Team Providers Care Multicultural Services Librarian Name Role Phone None Primary Care Provider Unavailabl e Encounter Details Date Type Department Care Team (Late st Contact Info) Description 08/12/2022 Notes Only [facility] [place] [phone] Román Mcclellan, [facility] [place] [address] Social History Tobacco Use Types Packs/Day Years [...] Dick MD [facility] RAD Medications: Current Outpatient Medications [...] Not on file Occupational History ??? 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 Tobacco Use ??? 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 Social Determinants [...] PM EST TH Visit (TeleHealth) Hematology/Oncology at [address] [phone] Cody Frazier MD [facility] DR HEMATOLOGY [place] [address] Bea Grimes APRN [address] [place] [address] DR HEMATOLOGY AND ONCOLOGY [place], [place] [address] documented as of this encounter Visit Diagnoses Not on filedocumented in this encounter Care Teams Multicultural Services Librarian Relationship Specialty Start Date End Date None None PCP - General 04/03/22 04/24/23 documented as of this encounter
--- OUTSIDE RECORDS SUMMARY | 2023-12-29 18:18 | XMS_ITS | Encounter Summary ---
Author Organization [facility] Address [facility] [place] [address] Care Team Providers Care Sprayer Machine Name Role Phone None Primary Care Provider Unavailabl e Reason for Visit * Reason Onset Date Comments Medication Refill 12/04/2022 Lyrica Encounter Details Date Type Department Care Team (Late st Contact Info) Description 12/04/2022 Telephone Hematology/Oncology at [address] [phone] Bea Grimes APRN [address] [place] [address] [place] [address] Medication Refill (Lyrica ) Social [...] a new rx. He uses [facility] in [facility] His call back number is [phone] Thank you Azra documented in this encounter Plan of Treatment Upcoming Encounters Date Type Department Care Team (Late st Contact Info) Description 01/05/2024 2:30 PM EST TH Visit (TeleHealth) Hematology/Oncology at [address] [phone] Cody Frazier MD [facility] DR [place] [address] Bea Grimes APRN [address] [place] [address] DR HEMATOLOGY AND ONCOLOGY [place], [place] [phone] documented as of this encounter Visit Diagnoses Diagnosis Neoplasm related pain Neoplasm related pain (acute) (chronic) Malignant neoplasm of lower lobe, right bronchus or lung Secondary malignant neoplasm of bone Secondary malignant neoplasm of bone and bone marrow documented in this encounter Care Teams Sprayer Machine Relationship Specialty Start Date End Date None None PCP - General 04/03/22 04/24/23 documented as of this encounter
--- OUTSIDE RECORDS SUMMARY | 2023-12-29 18:18 | XMS_ITS | Encounter Summary ---
Author Organization [facility] Address [facility] [place] [address] Care Team Providers Care Landing Signal Officer Name Role Phone None Primary Care [...] PEMETREXED, 10MG, INJECTION (ALIMTA) Cody Frazier MD [address] [place] [address] DR [place] [address] Cody Frazier MD [address] [place] [address] DR [place] [address] Referral ID Status Reason Start Date Expiration Date V isits Requested Visits Authorized [id number] Authorized 02/10/2022 08/10/2023 1 103 Encounter Details Date Type Department Care Team (Late st Contact Info) Description 10/28/2022 10:30 AM EDT Infusion Hematology Oncology at [address] [phone] Malignant neoplasm of lower lobe, right bronchus [...] of this encounter Progress Notes * Mohini aCal RN - 10/28/2022 10:30 AM EDT INFUSION THERAPY ADMINISTRATION NOTES DIAGNOSIS: NSCLC CYCLE #: 2, Day 1 REASON FOR VISIT: Carbo/Pemetrexed SUBJECTIVE: Alexis offers no complaints, ready for treatment. OBJECTIVE: LAB DATA: completed 10/28 at [facility] IV ACCESS: PIV Pre administration: Chemotherapy orders [...] EST TH Visit (TeleHealth) Hematology/Oncology at [address] [phone] Cody Frazier MD [facility] DR [place] [address] Bea Grimes APRN [address] [place] [address] DR [place] [address] documented as of this encounter [...] 2 minutes is a recommendation from the milling machine tender. Administer prior to chemotherapy., Routine Given 10/28/2022 [...] mL/hr documented in this encounter Care Teams Landing Signal Officer Relationship Specialty Start Date End Date None None PCP - General 04/03/22 04/24/23 documented as of this encounter
--- OUTSIDE RECORDS SUMMARY | 2023-12-29 18:18 | XMS_ITS | Encounter Summary ---
Author Organization [facility] Address [facility] [place] [address] Care Team Providers Care Asphalt Distributor Operator Name Role Phone None Primary Care Provider Unavailabl e Encounter Details Date Type Department Care Team (Late st Contact Info) Description 09/02/2022 2:00 PM EDT Office Visit Hematology/Oncology at [address] [phone] Cody Frazier MD [facility] DR [place] [address] Bea Grimes, LEAN MANUFACTURING LEADER [address] [place] [address] DR HEMATOLOGY [place] [address] Malignant neoplasm of lower lobe, [...] were not included. Hematology & Medical Oncology [address] [address] Alexis Pelayo is being seen for the evaluation of lung cancer. Assessment & Plan: Alexis Pelayo is a 51 y.o. male patient with a past medical history significant for COPD, a 23-opkd-ceyf smoking history, chronic migraine headaches diagnosed with [...] Cody Frazier MD, MS 09/01/2022 Thoracic Oncology [facility] CC: HPI/Interval History/Subjective: Last seen 08/05/2022 Eating [...] Social History/Support Network: Home situation: From the [place] originally. Came up here because of family Has a sister Kristine [place] who lives [place] who is his DPOA. 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 The biopsy may not be sales representative education courses of the clinical mass lesion. Step levels [...] 1.8 total bilirubin 0.1 AST 11 ALK [place] 84 ALT 18 albumin 3.6 up from [...] PM EST TH Visit (TeleHealth) Hematology/Oncology at [address] [phone] Cody Frazier MD [facility] DR [place] [address] Bea Grimes APRN [address] [place] [address] DR HEMATOLOGY AND ONCOLOGY [place], [place] [id number] documented as of this encounter Visit Diagnoses Diagnosis Malignant neoplasm of lower lobe, right bronchus or lung Secondary malignant neoplasm of bone Secondary malignant neoplasm of bone and bone marrow documented in this encounter Care Teams Asphalt Distributor Operator Relationship Specialty Start Date End Date None None PCP - General 04/03/22 04/24/23 documented as of this encounter
--- OUTSIDE RECORDS SUMMARY | 2023-12-29 18:18 | XMS_ITS | Encounter Summary ---
Author Organization [facility] Address [facility] [place] [address] Care Team Providers Care Content Management Consultant Name Role Phone None Primary Care Provider Unavailabl e Encounter Details Date Type Department Care Team (Late st Contact Info) Description 11/20/2022 10:00 AM EDT Office Visit Hematology/Oncology at [address] [phone] Bea Grimes APRN [address] [place] [address] DR HEMATOLOGY [place] [address] Malignant neoplasm of lower lobe, [...] were not included. Hematology & Medical Oncology [address] [phone] Alexis Pelayo is being seen for the evaluation of lung cancer. Assessment & Plan: Alexis Pelayo is a 52 y.o. male patient with a past medical history significant for COPD, a 31-lyzr-xxmk smoking history, chronic migraine headaches diagnosed with [...] Mag WNL, holding further supplementation. Bea Grimes, CLINICAL OUTCOMES MANAGER 11/20/2022 Thoracic Oncology [facility] CC: HPI/Interval History/Subjective: Last seen 10/28/2022 Pain [...] Social History/Support Network: Home situation: From the [place] originally. Came up here because of family Has a sister Kristine Brantley who lives [place] who is his DPOA. 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 The biopsy may not be business services sales representative of the clinical mass lesion. [...] EST TH Visit (TeleHealth) Hematology/Oncology at [address] [phone] Cody Frazier MD [facility] DR HEMATOLOGY [place] [address] Bea Grimes APRN [address] [place] [address] DR HEMATOLOGY AND ONCOLOGY [place], [place] [address] documented as of this encounter Visit Diagnoses Diagnosis Malignant neoplasm of lower lobe, right bronchus or lung Neoplasm related pain Neoplasm related pain (acute) (chronic) documented in this encounter Care Teams Content Management Consultant Relationship Specialty Start Date End Date None None PCP - General 04/03/22 04/24/23 documented as of this encounter
--- OUTSIDE RECORDS SUMMARY | 2023-12-29 18:18 | XMS_ITS | Encounter Summary ---
Author Organization [facility] Address [facility] [place] [address] Care Team Providers Care High Raw Sugar Boiler Name Role Phone None Primary Care Provider Unavailabl e Encounter Details Date Type Department Care Team (Late st Contact Info) Description 01/07/2023 Orders Only Hematology/Oncology at [address] [phone] Bandar Dillard, RN Social History [...] EST TH Visit (TeleHealth) Hematology/Oncology at [address] [phone] Cody Frazier MD [facility] DR [place] [address] Bea Grimes APRN [address] [place] [address] [place] [address] documented as of this encounter Visit Diagnoses Not on filedocumented in this encounter Care Teams High Raw Sugar Boiler Relationship Specialty Start Date End Date None None PCP - General 04/03/22 04/24/23 documented as of this encounter
--- OUTSIDE RECORDS SUMMARY | 2023-12-29 18:18 | XMS_ITS | Encounter Summary ---
Author Organization [facility] Address [facility] [place] [address] Care Team Providers Care Sound Effects Technician Name Role Phone None Primary Care Provider Unavailabl e Reason for Visit * Reason Onset Date Comments Medication Refill 12/25/2022 MS don ER Encounter Details Date Type Department Care Team (Late st Contact Info) Description 12/25/2022 Refill Hematology/Oncology at [address] [phone] Bea Grimes APRN [address] [place] [address] DR HEMATOLOGY [place] [address] Malignant neoplasm of lower lobe, [...] EST TH Visit (TeleHealth) Hematology/Oncology at [address] [phone] Cody Frazier MD [facility] DR HEMATOLOGY [place] [address] Bea Grimes APRN [address] [place] [address] DR HEMATOLOGY AND ONCOLOGY [place], [place] [phone] documented as of this encounter Visit Diagnoses Diagnosis Malignant neoplasm of lower lobe, right bronchus or lung documented in this encounter Care Teams Sound Effects Technician Relationship Specialty Start Date End Date None None PCP - General 04/03/22 04/24/23 documented as of this encounter
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
--- OUTSIDE RECORDS SUMMARY | 2023-12-29 18:18 | XMS_ITS | Encounter Summary ---
Author Organization [facility] Address [facility] [place] [id number] Care Team Providers Care Diagnostic Radiologic Technologist Name Role Phone None Primary Care Provider [...] EST TH Visit (TeleHealth) Hematology/Oncology at [address] [phone] Cody Frazier MD [facility] DR HEMATOLOGY [place] [address] Bea Grimes APRN [address] [place] [address] DR HEMATOLOGY AND ONCOLOGY [place], [place] [address] documented as of this encounter Visit Diagnoses Not on filedocumented in this encounter Care Teams Diagnostic Radiologic Technologist Relationship Specialty Start Date End Date None None PCP - General 04/03/22 04/24/23 documented as of this encounter
--- OUTSIDE RECORDS SUMMARY | 2023-12-29 18:18 | XMS_ITS | Encounter Summary ---
Author Organization [facility] Address [facility] [place] [id number] Care Team Providers Care Ethylene Plant Operator Name Role Phone None Primary [...] EST TH Visit (TeleHealth) Hematology/Oncology at [address] [phone] Cody Frazier MD [facility] DR [place] [address] Bea Grimes APRN [address] [place] [address] DR HEMATOLOGY AND ONCOLOGY [place], [place] [address] documented as of this encounter Visit Diagnoses Not on filedocumented in this encounter Care Teams Ethylene Plant Operator Relationship Specialty Start Date End Date None None PCP - General 04/03/22 04/24/23 documented as of this encounter
--- OUTSIDE RECORDS SUMMARY | 2023-12-29 18:18 | XMS_ITS | Encounter Summary ---
Author Organization [facility] Address [facility] [place] [address] Care Team Providers Care Direct Sales Professional Name Role Phone None Primary Care Provider Unavailabl e Reason for Referral * Diagnostic Test (Routine) - Closed Specialty Diagnoses / Procedures [facility] Referred To Contact Radiology Diagnoses Malignant neoplasm of lower lobe, right bronchus or lung Secondary malignant neoplasm of bone Neoplasm related pain Procedures CT Guided Biopsy Lung IR All Biopsy Procedures Cody Frazier MD [facility] DR [place] [address] [place] [address] Referral ID Status Reason Start Date Expiration Date V isits Requested Visits Authorized [id number] Closed Specialty Service Requested 08/12/2022 02/13/2024 1 1 Reason for Visit * Diagnostic Test (Routine) - Closed Specialty Diagnoses / Procedures [facility]erred By [facility] Referred To Contact Radiology Diagnoses Malignant neoplasm of lower lobe, right bronchus or lung Secondary malignant neoplasm of bone Neoplasm related pain Procedures CT Guided Biopsy Lung IR All Biopsy Procedures Cody Frazier MD [facility] DR [place] [address] [place] [address] Referral ID Status Reason Start Date Expiration Date V isits Requested Visits Authorized [id number] Closed Specialty Service Requested 08/12/2022 02/13/2024 1 1 Encounter Details Date Type Department Care Team (Late st Contact Info) Description 08/28/2022 8:02 AM EDT - 08/28/2022 10:04 AM EDT Hospital Encounter CT Scan at [facility] [place] [address] Cody Frazier MD [facility] HEMATOLOGY [place] [address] Pre-op testing; Lung mass; Malignant neoplasm of [...] Valdez RN - 08/28/2022 9:41 AM EDT [facility] Vascular and Interventional Radiology Biopsy Discharge [...] be reported to you by your primary senior caregiver or the clinician who ordered the biopsy. Please do not call us for results as we will not have them. If you have not been contacted by your clinician within 5 business days you should call that officefor further information. When to call the Interventional Radiology Department: Please call with any questions or concerns. If it is during regular office hours, please call [phone]. If it is after regular office hours, or on weekends or holidays, please call [phone] and ask to speak to the Information Systems Security Analyst confectionery maker for Interventional Radiology. You have received medication [...] Male Date of : 1970 Telephone Number: [phone] (home) Telephone Information: PCP: None None Date/Time [...] of : 1970 AGE: 51 y.o. Address: [address] [place] [phone] Phone: [phone] (home) Mobile: Telephone Information: Referring Provider: Cody Frazier REASON FOR VISIT: Order Questions Answers Where will study be performed? [facility] Radiology [120] Is the patient on [...] Procedure request received through the Interventional Radiology [facility] order queue. Presenting Diagnosis/ Complaint: Alexis Pelayo [...] All Biopsy Procedures 06/27/2021 Buddy Dick MD [facility] INTERVENTIONL RAD Medications: Current Outpatient Medications [...] Not on file Occupational History ??? 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 Tobacco Use ??? 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 Social Determinants [...] EST TH Visit (TeleHealth) Hematology/Oncology at [address] [phone] Cody Frazier MD [facility] DR HEMATOLOGY [place] [address] Bea Grimes APRN [address] [place] [address] DR HEMATOLOGY AND ONCOLOGY [place], [place] [id number] documented as of this encounter Procedures Procedure [...] signed by: Karine Seaman MD, [facility] ([phone]), at 08/28/2022 6:06 PM Narrative 08/28/2022 6:06 [...] requested your imaging first. Electronically signed by: Karine Seaman MD, [facility]([phone]), at 08/28/2022 6:06 PM Jose Cota MD IMG DX ORDERABLES [...] ? Electronically signed by: Zev Mcdowell MD, [facility] ([phone]), at 08/28/2022 4:42 PM Narrative 08/28/2022 4:42 [...] first. Electronically signed by: Zev Mcdowell MD, [facility]([phone]), at 08/28/2022 4:42 PM Joes Cota MD IMG DX ORDERABLES * CT [...] performed the entire procedure. Cody Frazier MD [facility] CT ORDERABLES * Surgical Pathology Report (08/28/2022 9:11 AM EDT) Final Diagnosis [id number] ? Location: [facility] The signing pathologist has (i) examined the relevant preparation(s) for the specimen(s) and (ii) rendered or confirmed the diagnosis(es). . ?Surgical Pathology DIAGNOSIS Lung, right, CT-guided biopsy: Lung parenchyma with chronic inflammation and rare fibroblastic foci, no evidence of malignancy. (see Discussion) Electronically signed by: ?Rima KEENE, Teena Bynum Verified: ??09/02/2022 16:57 ??Pathologist Performed at: ??-[facility] Dept. of Pathology, [place] [address] Transport Medic: Adithya Lowery MD, FCAP, ??CLIA Certificate: [id number] DISCUSSION Select eDH notes were reviewed. ??An inflammatory/infe ctious process is favored. The biopsy may not be enrollment representative of the clinical mass lesion. Step [...] labeled A1-A2. ??nrl 09/02/2022 4:57 PM EDT [facility] LUNG STRUCTURE / Unknown 08/28/2022 9:11 AM EDT 08/28/2022 9:11 AM EDT Jose Cota MD PATHOLOGY/CYTOLOGY O R[facility]ABRITT [facility] [place] [id number] [facility] [place] [address] * Specimen to Pathology (08/28/2022 9:11 AM EDT) AP Specimen 08/28/2022 9:11 AM EDT 08/28/2022 9:11 AM EDT Narrative [facility] - 08/28/2022 9:11 AM EDT Specimen requisition ordered. ??Separate Pathology report to follow Jose Cota MD PATHOLOGY/CYTOLOGY O RDERABLES Performing Organization Address City/[facility]/ZIP Co de Phone Number [facility] [place] [address] * Calcofluor White Stain (08/28/2022 7:45 AM EDT) Calcofluor Stain Calcofluor White Preparation: Negative [facility] Lung 08/28/2022 7:45 AM EDT 08/28/2022 10:12 AM EDT Comment:CT Guided Right Lung Biopsy Narrative Resulting Agency Comment Spec In Lab Jose Cota MD MICROBIOLOGY - GENER AL ORDERABLES Performing Organization Address [facility] Co de Phone Number [facility] [place] [address] * Fungus culture (08/28/2022 7:45 AM EDT) Fungus Culture No Fungus isolated [facility] Lung 08/28/2022 7:45 AM EDT 08/28/2022 10:12 AM EDT Comment:CT Guided Right Lung Biopsy Narrative Resulting Agency Comment Spec In Lab Jose Cota MD MICROBIOLOGY - GENER AL ORDERABLES Performing Organization Address [facility]/ZIP Co de Phone Number [facility] [place] [address] * Anaerobic Culture (08/28/2022 7:45 AM EDT) Anaerobic Culture No anaerobic organisms isolated [facility] Lung 08/28/2022 7:45 AM EDT 08/28/2022 10:12 AM EDT Comment:CT Guided Right Lung Biopsy Narrative Resulting Agency Comment Spec In Lab Jose Cota MD MICROBIOLOGY - GENER AL ORDERABLES Performing Organization Address City/[facility]/ZIP Co de Phone Number [facility] [place] [address] * Tissue culture (08/28/2022 7:45 AM EDT) Tissue Culture No growth [facility] Gram Stain No Neutrophils seen. No microorganisms seen. [facility] Lung 08/28/2022 7:45 AM EDT 08/28/2022 10:12 AM EDT Comment:CT Guided Right Lung Biopsy Narrative Resulting Agency Comment Spec In Lab Jose Cota MD MICROBIOLOGY - GENER AL ORDERABLES Performing Organization Address [facility] Co de Phone Number [facility] [address] documented in this encounter Visit Diagnoses Diagnosis [...] mg documented in this encounter Care Teams Direct Sales Professional Relationship Specialty Start Date End Date None None PCP - General 04/03/22 04/24/23 documented as of this encounter
--- OUTSIDE RECORDS SUMMARY | 2023-12-29 18:18 | XMS_ITS | Encounter Summary ---
Author Organization [facility] Address [facility] [place] [address] Care Team Providers Care Retail Chain Store Area Supervisor Name Role Phone None Primary Care Provider [...] 10MG, INJECTION (ALIMTA) Cody Frazier MD [address] [place] [address] DR HEMATOLOGY [place] [address] Cody Frazier MD [address] [place] [address] DR HEMATOLOGY [place] [address] Referral ID Status Reason Start Date Expiration Date V isits Requested Visits Authorized [id number] Authorized 02/10/2022 08/10/2023 1 103 Encounter Details Date Type Department Care Team (Late st Contact Info) Description 11/20/2022 10:30 AM EDT Infusion Hematology Oncology at [address] [phone] Malignant neoplasm of lower lobe, right bronchus [...] treatment. OBJECTIVE: LAB DATA: completed 11/20 at [facility] IV ACCESS: PIV Pre administration: Chemotherapy orders [...] PM EST TH Visit (TeleHealth) Hematology/Oncology at [address] [phone] Cody Frazier MD [facility] DR [place] [address] Bea Grimes APRN [address] [place] [address] DR HEMATOLOGY [place] [address] documented as of this encounter [...] 2 minutes is a recommendation from the professor of music. Administer prior to chemotherapy., Routine Given 11/20/2022 [...] mL/hr documented in this encounter Care Teams Retail Chain Store Area Supervisor Relationship Specialty Start Date End Date None None PCP - General 04/03/22 04/24/23 documented as of this encounter
--- OUTSIDE RECORDS SUMMARY | 2023-12-29 18:18 | XMS_ITS | Encounter Summary ---
Author Organization [facility] Address [facility] [place] [address] Care Team Providers Care Integrated Circuit Fabricator Name Role Phone None Primary Care Provider Unavailabl e Encounter Details Date Type Department Care Team (Late st Contact Info) Description 11/12/2022 Ancillary Procedure Radiology Library at [facility] [phone] Cody Frazier MD [facility] HEMATOLOGY [place] [address] Social History Tobacco Use Types Packs/Day Years [...] PM EST TH Visit (TeleHealth) Hematology/Oncology at [address] [phone] Cody Frazier MD [facility] DR [place] [address] Bea Grimes APRN [address] [place] [address] DR HEMATOLOGY AND ONCOLOGY [place], [place] [address] documented as of this encounter Procedures Procedure Name Priority Date/Time Associated Diagnosis Comments FILM LIBRARY STORAGE ONLY CT CHEST ABDOMEN PELVIS Routine 11/12/2022 12:00 AM EDT documented in this encounter Results * Film Library- Storage Only CT Chest Abdomen Pelvis (11/12/2022 12:00 AM EDT) Narrative AMARA AGUILLON - 11/13/2022 1:50 PM EDT This exam is auto-finalizing. It's purpose is for storage only. Cody Frazier MD IMG FILM LIBRARY ORD ERABLES [place], [place] documented in this encounter Visit Diagnoses Not on filedocumented in this encounter Care Teams Integrated Circuit Fabricator Relationship Specialty Start Date End Date None None PCP - General 04/03/22 04/24/23 documented as of this encounter
--- OUTSIDE RECORDS SUMMARY | 2023-12-29 18:18 | XMS_ITS | Encounter Summary ---
Author Organization [facility] Address [facility] [place] [address] Care Team Providers Care Flavor Tank Tender Name Role Phone None Primary Care Provider Unavailabl e Encounter Details Date Type Department Care Team (Late st Contact Info) Description 09/30/2022 Orders Only Hematology Oncology at [address] [phone] Deanne Nelson, RN Secondary malignant [...] PM EST TH Visit (TeleHealth) Hematology/Oncology at [address] [phone] Cody Frazier MD 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
--- OUTSIDE RECORDS SUMMARY | 2023-12-29 18:18 | XMS_ITS | Encounter Summary ---
Author Organization [facility] Address [facility] [place] [id number] Care Team Providers Care Ice Cream Vault Worker Name Role Phone None Primary Care [...] EST TH Visit (TeleHealth) Hematology/Oncology at [address] [phone] Cody Frazier MD [facility] DR HEMATOLOGY [place] [address] Bea Grimes APRN [address] [place] [address] DR HEMATOLOGY AND ONCOLOGY [place], [place] [address] documented as of this encounter Visit Diagnoses Not on filedocumented in this encounter Care Teams Ice Cream Vault Worker Relationship Specialty Start Date End Date None None PCP - General 04/03/22 04/24/23 documented as of this encounter
--- OUTSIDE RECORDS SUMMARY | 2023-12-29 18:18 | XMS_ITS | Encounter Summary ---
Author Organization [facility] Address [facility] [place] [phone] Care Team Providers Care Hospitality Workers Name Role Phone None Primary Care Provider [...] PM EST TH Visit (TeleHealth) Hematology/Oncology at [address] [phone] Cody Frazier MD [facility] DR HEMATOLOGY [place] [address] Bea Grimes APRN [address] [place] [address] DR HEMATOLOGY AND ONCOLOGY [place], [place] [address] documented as of this encounter Visit Diagnoses Not on filedocumented in this encounter Care Teams Hospitality Workers Relationship Specialty Start Date End Date None None PCP - General 04/03/22 04/24/23 documented as of this encounter
--- OUTSIDE RECORDS SUMMARY | 2023-12-29 18:18 | XMS_ITS | Encounter Summary ---
Author Organization [facility] Address [facility] [place] [address] Care Team Providers Care Roll Forger Name Role Phone None Primary Care Provider Unavailabl e Encounter Details Date Type Department Care Team (Late st Contact Info) Description 10/28/2022 10:00 AM EDT Office Visit Hematology/Oncology at [address] [phone] Cody Frazier MD [facility] DR HEMATOLOGY AND [place] [address] Bea Grimes, DATA VIRTUALIZATION CONSULTANT [address] [place] [address] DR HEMATOLOGY [place] [address] Malignant neoplasm of lower lobe, [...] were not included. Hematology & Medical Oncology [address] [address] Alexis Pelayo is being seen for the evaluation of lung cancer. Assessment & Plan: Alexis Pelayo is a 52 y.o. male patient with a past medical history significant for COPD, a 90-jokp-awoa smoking history, chronic migraine headaches diagnosed with [...] Cody Frazier MD, MS 10/28/2022 Thoracic Oncology [facility] CC: HPI/Interval History/Subjective: Last seen 10/07/2022 [place] pretty poor and achy with his cramps [...] Social History/Support Network: Home situation: [place]. Came up here because of family Has a sister Kristine Brantley who lives [place] who is his DPOA. 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 male patient with a past medical history significant forCOPD, a 23-ppxp-rsuq smoking history, chronic migraine headaches who was [...] The biopsy may not be sales representative business courses of the clinical mass lesion. 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
--- OUTSIDE RECORDS SUMMARY | 2023-12-29 18:18 | XMS_ITS | Encounter Summary ---
Author Organization [facility] Address [facility] [place] [phone] Care Team Providers Care Chucking Machine Set Up Operator Name Role Phone None Primary Care Provider Unavailabl e Encounter Details Date Type Department Care Team (Late st Contact Info) Description 09/02/2022 Notes Only Hematology/Oncology at [address] [phone] Lorraine Huerta, [facility] OFFICE OF CARE MANAGEMENT Social History Tobacco [...] identify any new needs. Reminded him of DIVING INSTRUCTOR availability. Will continue to follow. Brief assessment Supportive Counseling documented in this encounter Plan of Treatment Upcoming Encounters Date Type Department Care Team (Late st Contact Info) Description 01/05/2024 2:30 PM EST TH Visit (TeleHealth) Hematology/Oncology at [address] [phone] Cody Frazier MD [facility] [place] [address] Bea Grimes APRN [address] [place] [address] DR HEMATOLOGY [place] [address] documented as of this encounter Visit Diagnoses Not on filedocumented in this encounter Care Teams Chucking Machine Set Up Operator Relationship Specialty Start Date End Date None None PCP - General 04/03/22 04/24/23 documented as of this encounter
--- OUTSIDE RECORDS SUMMARY | 2023-12-29 18:18 | XMS_ITS | Encounter Summary ---
Author Organization [facility] Address [facility] [place] [address] Care Team Providers Care Health Administration Teacher Name Role Phone None Primary Care Provider Unavailabl e Reason for Visit * Reason Onset Date Comments Medication Refill 09/04/2022 MS ER Encounter Details Date Type Department Care Team (Late st Contact Info) Description 09/04/2022 Refill Hematology/Oncology at [address] [phone] Cody Frazier MD [facility] HEMATOLOGY [place] [address] Malignant neoplasm of lower lobe, [...] rx for morphine 100mg ER sent to [facility] Best call back number is [phone] documented in this encounter Plan of Treatment Upcoming Encounters Date Type Department Care Team (Late st Contact Info) Description 01/05/2024 2:30 PM EST TH Visit (TeleHealth) Hematology/Oncology at [address] [phone] Cody Frazier MD [facility] DR HEMATOLOGY [place] [address] Bea Grimes APRN [address] [place] [address] DR HEMATOLOGY AND ONCOLOGY [place], [place] [address] documented as of this encounter Visit Diagnoses Diagnosis Malignant neoplasm of lower lobe, right bronchus or lung documented in this encounter Care Teams Health Administration Teacher Relationship Specialty Start Date End Date None None PCP - General 04/03/22 04/24/23 documented as of this encounter
--- OUTSIDE RECORDS SUMMARY | 2023-12-29 18:18 | XMS_ITS | Encounter Summary ---
Author Organization [facility] Address [facility] [place] [address] Care Team Providers Care Power Switchboard Operator Name Role Phone None Primary Care Provider Unavailabl e Encounter Details Date Type Department Care Team (Latest Contact Info) Description 08/28/2022 11:58 AM EDT - 08/28/2022 11:59 PM EDT Hospital Encounter XRay at [address] [place] [phone] Jose Cota MD [facility] [place] [address] Discharge Disposition: Home Social History Tobacco Use [...] EST TH Visit (TeleHealth) Hematology/Oncology at [address] [phone] Cody Frazier MD [facility] DR [place] [address] Bea Grimes APRN [address] [place] [address] DR [place] [address] documented as of this encounter Procedures Procedure [...] who have questions please contact the health gericare aide that requested your imaging first. ? Electronically signed by: Karine Seaman MD, [facility] ([phone]), at 08/28/2022 6:06 PM Narrative 08/28/2022 6:06 [...] patients who have questions please contactthe health gericare aide that requested your imaging first. Jose Cota MD IMG DX ORDERABLES documented in this encounter Visit Diagnoses Not on filedocumented in this encounter Care Teams Power Switchboard Operator Relationship Specialty Start Date End Date None None PCP - General 04/03/22 04/24/23 documented as of this encounter
--- OUTSIDE RECORDS SUMMARY | 2023-12-29 18:18 | XMS_ITS | Encounter Summary ---
Author Organization [facility] Address [facility] [place] [address] Care Team Providers Care Bell Staff Name Role Phone None Primary Care Provider Unavailabl e Reason for Visit * Reason Comments Chemotherapy [id number]/Pemetrexe d * Treatment/Therapy Plan Authorization (Routine) - [...] PEMETREXED, 10MG, INJECTION (ALIMTA) Cody Frazier MD [address] [place] [address] DR HEMATOLOGY [place] [address] Cody Frazier MD [address] [place] [address] DR HEMATOLOGY [place] [address] Referral ID Status Reason Start Date Expiration Date V isits Requested Visits Authorized [id number] Authorized 02/10/2022 08/10/2023 1 103 Encounter Details Date Type Department Care Team (Late st Contact Info) Description 09/16/2022 9:00 AM EDT Infusion Hematology Oncology at [address] [phone] Malignant neoplasm of lower lobe, [...] PM EST TH Visit (TeleHealth) Hematology/Oncology at [address] [phone] [facility] DR [place]EMATOLOGY [place] [address] Bea Grimes [address] HEMATOLOGY AND ONCOLOGY [place], [place] [address] documented as of this encounter Visit Diagnoses [...] 2 minutes is a recommendation from the clerical manager. Administer prior to chemotherapy., Routine Given 09/16/2022 [...] mL/hr documented in this encounter Care Teams Bell Staff Relationship Specialty Start Date End Date None None PCP - General 04/03/22 04/24/23 documented as of this encounter
--- OUTSIDE RECORDS SUMMARY | 2023-12-29 18:18 | XMS_ITS | Encounter Summary ---
Author Organization [facility] Address [facility] [place] [address] Care Team Providers Care Automotive Refinish Technician Name Role Phone None Primary Care Provider Unavailabl e Reason for Referral * Diagnostic Test (Routine) - Authorized Specialty Diagnoses / Procedures Referred By Kristan merlos Referred To Contact Radiology Diagnoses Malignant neoplasm of lower lobe, right bronchus or lung Procedures CT Chest w Contrast Bea Grimes APRN [address] [place] [address] DR HEMATOLOGY [place] [address] Referral ID Status Reason Start Date Expiration Date Visits Requested Visits Authorized [id number] Authorized Specialty Service Requested 3 06/09/2024 1 1 Encounter Details Date Type Department Care Team (Late st Contact Info) Description 12/09/2022 10:30 AM EDT Office Visit Hematology/Oncology at [address] [phone] Cody Frazier MD [facility] DR HEMATOLOGY [place] [address] [address]imes [address] HEMATOLOGY AND ONCOLOGY [place], [place] [id number] Malignant neoplasm of lower lobe, right bronchus [...] encounter Progress Notes * LaRozHamilton ronquilloBea A, PARADI OPERATOR - 12/09/2022 10:30 AM EDT Images from the original note were not included. Hematology & Medical Oncology [address] [phone] Alexis Pelayo is being seen for the evaluation of lung cancer. Assessment & Plan: Alexis Pelayo is a 52 y.o. male patient with a past medical history significant for COPD, a 06-hvlc-hled smoking history, chronic migraine headaches diagnosed with [...] Mag WNL, holding further supplementation. Bea Grimes, PARADI OPERATOR 12/09/2022 Thoracic Oncology [facility] CC: HPI/Interval History/Subjective: Last seen 11/20/2022 [...] Social History/Support Network: Home situation: From the [place] originally. Came up here because of family Has a sister Kristine Brantley who lives [place] who is his DPOA. 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 [...] a past medical history significant forCOPD, a 63-vrik-osnh smoking history, chronic migraine headaches who was [...] is favored. The biopsy may not be direct marketing representative of the clinical mass lesion. [...] EST TH Visit (TeleHealth) Hematology/Oncology at [address] [phone] Cody Frazier MD [facility] DR HEMATOLOGY [place] [address] Bea Grimes APRN [address] [place] [address] DR HEMATOLOGY [place] [address] Scheduled Orders Name Type Priority Associated Diagnoses [...] (chronic) documented in this encounter Care Teams Automotive Refinish Technician Relationship Specialty Start Date End Date None None PCP - General 04/03/22 04/24/23 documented as of this encounter
--- OUTSIDE RECORDS SUMMARY | 2023-12-29 18:18 | XMS_ITS | Encounter Summary ---
Author Organization [facility] Address [facility] [place] [id number] Care Team Providers Care Rail Layer Name Role Phone None Primary Care [...] EST TH Visit (TeleHealth) Hematology/Oncology at [address] [phone] Cody Frazier MD [facility] DR HEMAT[place] [address] Bea Grimes APRN [address] [place] [address] DR HEMATOLOGY AND ONCOLOGY [place], [place] [address] documented as of this encounter Visit Diagnoses Not on filedocumented in this encounter Care Teams Rail Layer Relationship Specialty Start Date End Date None None PCP - General 04/03/22 04/24/23 documented as of this encounter
--- OUTSIDE RECORDS SUMMARY | 2023-12-29 18:18 | XMS_ITS | Encounter Summary ---
Author Organization [facility] Address [facility] [place] [address] Care Team Providers Care Tactical Intelligence Officer Name Role Phone None Primary Care Provider Unavailabl e Encounter Details Date Type Department Care Team (Late st Contact Info) Description 08/20/2022 Refill Hematology/Oncology at [address] [phone] Bea Grimes APRN [address] [place] [address] DR [place] [address] Secondary malignant neoplasm of bone; [...] send it to: [id number] - [place] [address] Best call back number [phone] documented in this encounter Plan of Treatment Upcoming Encounters Date Type Department Care Team (Late st Contact Info) Description 01/05/2024 2:30 PM EST TH Visit (TeleHealth) Hematology/Oncology at [address] [phone] Cody Frazier MD [facility] DR [place] [address] Bea Grimes APRN [address] [place] [address] DR HEMATOLOGY AND ONCOLOGY [place], [place] [id number] documented as of this encounter Visit Diagnoses Diagnosis 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
--- OUTSIDE RECORDS SUMMARY | 2023-12-29 18:18 | XMS_ITS | Encounter Summary ---
Author Organization [facility] Address [facility] [place] [address] Care Team Providers Care Jd Edwards Developer Name Role Phone None Primary Care Provider Unavailabl e Encounter Details Date Type Department Care Team (Late st Contact Info) Description 09/09/2022 Telephone Hematology and Oncology at [facility] [place] [address] Jag Roberts, RN Social History [...] EST TH Visit (TeleHealth) Hematology/Oncology at [address] [phone] Cody Frazier MD [facility] DR [place] [address] Bea Grimes APRN [address] [place] [address] DR HEMATOLOGY AND ONCOLOGY [place], [place] [phone] documented as of this encounter Procedures Procedure [...] - 50.0 Platelet 580(A) 130 - 400 Neutrophil Absolute (ANC) - Manual 11.67(A) 1.2 - 6.7 09/02/2022 1:19 [...] on filedocumented in this encounter Care Teams Jd Edwards Developer Relationship Specialty Start Date End Date None None PCP - General 04/03/22 04/24/23 documented as of this encounter
--- OUTSIDE RECORDS SUMMARY | 2023-12-29 18:18 | XMS_ITS | Encounter Summary ---
Author Organization [facility] Address [facility] [place] [id number] Care Team Providers Care Technical Translator Name Role Phone None Primary Care Provider [...] EST TH Visit (TeleHealth) Hematology/Oncology at [address] [phone] Cody Frazier MD [facility] DR [place] [address] Bea Grimes APRN [address] [place] [address] DR HEMATOLOGY AND ONCOLOGY [place], [place] [address] documented as of this encounter Visit Diagnoses Not on filedocumented in this encounter Care Teams Technical Translator Relationship Specialty Start Date End Date None None PCP - General 04/03/22 04/24/23 documented as of this encounter
--- OUTSIDE RECORDS SUMMARY | 2023-12-29 18:18 | XMS_ITS | Encounter Summary ---
Author Organization [facility] Address [facility] [place] [address] Care Team Providers Care Patient Financial Representative Name Role Phone None Primary Care Provider Unavailabl e Reason for Visit * Reason Onset Date Comments Medication Refill 11/27/2022 MS Contin Encounter Details Date Type Department Care Team (Late st Contact Info) Description 11/27/2022 Telephone Hematology/Oncology at [address] [phone] Bea Grimes APRN [address] [place] [address] DR HEMATOLOGY [place] [address] Medication Refill (MS Contin ) [...] Please send to: [facility] - [address] [address] Best call back number:[phone] documented in this encounter Plan of Treatment Upcoming Encounters Date Type Department Care Team (Late st Contact Info) Description 01/05/2024 2:30 PM EST TH Visit (TeleHealth) Hematology/Oncology at [address] [phone] Cody Frazier MD [facility] DR [place] [address] Bea Grimes APRN [address] [place] [address] DR HEMATOLOGY AND ONCOLOGY [place], [place] [phone] documented as of this encounter Visit Diagnoses Diagnosis Malignant neoplasm of lower lobe, right bronchus or lung documented in this encounter Care Teams Patient Financial Representative Relationship Specialty Start Date End Date None None PCP - General 04/03/22 04/24/23 documented as of this encounter
--- OUTSIDE RECORDS SUMMARY | 2023-12-29 18:18 | XMS_ITS | Encounter Summary ---
Author Organization [facility] Address [facility] [place] [address] Care Team Providers Care Senior Grant Writer Name Role Phone None Primary Care Provider Unavailabl e Reason for Visit * Reason Onset Date Comments Medication Refill 01/07/2023 Pregabalin Encounter Details Date Type Department Care Team (Late st Contact Info) Description 01/07/2023 Telephone Hematology/Oncology at [address] [phone] Bea Grimes APRN [address] [place] [address] [place] [address] Medication Refill (Pregabalin ) Social [...] (Lyrica) 50 mg capsule to [facility] in [facility]. 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
--- OUTSIDE RECORDS SUMMARY | 2023-12-29 18:18 | XMS_ITS | Encounter Summary ---
Author Organization [facility] Address [facility] [place] [address] Care Team Providers Care Dry Chain Worker Name Role Phone None Primary Care Provider Unavailabl e Encounter Details Date Type Department Care Team (Late st Contact Info) Description 10/03/2022 Orders Only Hematology/Oncology at [address] [phone] Bea Grimes APRN [address] [place] [address] DR HEMATOLOGY [place] [address] Malignant neoplasm of lower lobe, [...] EST TH Visit (TeleHealth) Hematology/Oncology at [address] [phone] Cody Frazier MD [facility] DR HEMATOLOGY [place] [address] Bea Grimes APRN [address] [place] [address] DR HEMATOLOGY [place] [address] documented as of this encounter Visit Diagnoses Diagnosis Malignant neoplasm of lower lobe, right bronchus or lung documented in this encounter Care Teams Dry Chain Worker Relationship Specialty Start Date End Date None None PCP - General 04/03/22 04/24/23 documented as of this encounter
--- OUTSIDE RECORDS SUMMARY | 2023-12-29 18:18 | XMS_ITS | Encounter Summary ---
Author Organization [facility] Address [facility] [place] [address] Care Team Providers Care Key Worker Name Role Phone None Primary Care Provider Unavailabl e Reason for Visit * Reason Onset Date Comments Appointment 10/07/2022 Cancelled today Encounter Details Date Type Department Care Team (Late st Contact Info) Description 10/07/2022 Telephone Hematology/Oncology at [address] [phone] Deanne Nelson, RN Appointment (Cancelled [...] follow up on 10/28 with labs at [facility] at 0900, appt with Dr. Frazier at 1000 and infusion to follow. He agreed with this plan and will call if he needs anything in the interim. documented in this encounter Plan of Treatment Upcoming Encounters Date Type Department Care Team (Late st Contact Info) Description 01/05/2024 2:30 PM EST TH Visit (TeleHealth) Hematology/Oncology at [address] [phone] Cody Frazier MD [facility] DR HEMATOLOGY [place] [address] Bea Grimes, [address] [place] [address] documented as of this encounter Visit Diagnoses Not on filedocumented in this encounter Care Teams Key Worker Relationship Specialty Start Date End Date None None PCP - General 04/03/22 04/24/23 documented as of this encounter
--- OUTSIDE RECORDS SUMMARY | 2023-12-29 18:18 | XMS_ITS | Encounter Summary ---
Author Organization [facility] Address [facility] [place] [address] Care Team Providers Care Automation Tender Name Role Phone None Primary Care Provider Unavailabl e Encounter Details Date Type Department Care Team (Latest Contact Info) Description 08/28/2022 10:05 AM EDT - 08/28/2022 11:57 AM EDT Hospital Encounter XRay at [address] [place] [phone] Jose Cota MD [facility] [place] [address] Discharge Disposition: Home Social History Tobacco Use [...] EST TH Visit (TeleHealth) Hematology/Oncology at [address] [phone] Cody Frazier MD [facility] DR [place] [address] Bea Grimes APRN [address] [place] [address] DR HEMATOLOGY [place] [address] documented as of this encounter Procedures Procedure [...] have questions please contact the health care analyst that requested your imaging first. ? Narrative [...] who have questions please contactthe health care analyst that requested your imaging first. Jose Cota MD IMG DX ORDERABLES documented in this encounter Visit Diagnoses Not on filedocumented in this encounter Care Teams Automation Tender Relationship Specialty Start Date End Date None None PCP - General 04/03/22 04/24/23 documented as of this encounter
--- OUTSIDE RECORDS SUMMARY | 2023-12-29 18:18 | XMS_ITS | Encounter Summary ---
Author Organization [facility] Address [facility] [place] [id number] Care Team Providers Care Longshore Equipment Operator Name Role Phone None Primary [...] EST TH Visit (TeleHealth) Hematology/Oncology at [address] [phone] Cody Frazier MD [facility] [place] [address] Bea Grimes APRN [address] [place] [address] DR HEMATOLOGY AND ONCOLOGY [place], [place] [address] documented as of this encounter Visit Diagnoses Not on filedocumented in this encounter Care Teams Longshore Equipment Operator Relationship Specialty Start Date End Date None None PCP - General 04/03/22 04/24/23 documented as of this encounter
--- OUTSIDE RECORDS SUMMARY | 2023-12-29 18:18 | XMS_ITS | Encounter Summary ---
Author Organization [facility] Address [facility] [place] [address] Care Team Providers Care Guest History Clerk Name Role Phone None Primary Care Provider Unavailabl e Encounter Details Date Type Department Care Team (Late st Contact Info) Description 10/21/2022 Refill Hematology/Oncology at [address] [phone] Bea Grimes APRN [address] [place] [address] DR [place] [address] Secondary malignant neoplasm of bone; [...] EST TH Visit (TeleHealth) Hematology/Oncology at [address] [phone] 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
--- OUTSIDE RECORDS SUMMARY | 2023-12-29 18:18 | XMS_ITS | Encounter Summary ---
Author Organization [facility] Address [facility] [place] [id number] Care Team Providers Care Furniture Finisher Helper Name Role Phone None Primary Care [...] EST TH Visit (TeleHealth) Hematology/Oncology at [address] [phone] Cody Frazier MD [facility] DR HEMATOLOGY [place] [address] Bea Grimes APRN [address] [place] [address] DR HEMATOLOGY AND ONCOLOGY [place], [place] [address] documented as of this encounter Visit Diagnoses Not on filedocumented in this encounter Care Teams Furniture Finisher Helper Relationship Specialty Start Date End Date None None PCP - General 04/03/22 04/24/23 documented as of this encounter
--- OUTSIDE RECORDS SUMMARY | 2023-12-29 18:18 | XMS_ITS | Encounter Summary ---
Author Organization [facility] Address [facility] [place] [address] Care Team Providers Care Intermodal Customer Service Name Role Phone None Primary Care [...] PEMETREXED, 10MG, INJECTION (ALIMTA) Cody Frazier MD [address] [place] [address] DR [place] [address] Cody Frazier MD [address] [place] [address] DR [place]EM[place]Y [place] [address] Referral ID Status Reason Start Date Expiration Date V isits Requested Visits Authorized [id number] Authorized 02/10/2022 08/10/2023 1 103 Encounter Details Date Type Department Care Team (Late st Contact Info) Description 12/30/2022 11:00 AM EST Infusion Hematology Oncology at [address] [phone] Malignant neoplasm of lower lobe, [...] treatment. OBJECTIVE: LAB DATA: completed today at [facility] IV ACCESS: PIV Pre administration: Chemotherapy [...] PM EST TH Visit (TeleHealth) Hematology/Oncology at [address] [phone] Cody Frazier MD [facility] DR HEMATOLOGY AND ONCOLOGY [facility] [address] Bea Grimes APRN [address] [place] [address] DR HEMATOLOGY AND ONCOLOGY [place], [place] [id number] documented as of this encounter Visit Diagnoses [...] 2 minutes is a recommendation from the unemployment examiner. Administer prior to chemotherapy., Routine Given 12/30/2022 [...] mL/hr documented in this encounter Care Teams Intermodal Customer Service Relationship Specialty Start Date End Date None None PCP - General 04/03/22 04/24/23 documented as of this encounter
--- OUTSIDE RECORDS SUMMARY | 2023-12-29 18:18 | XMS_ITS | Encounter Summary ---
Author Organization [facility] Address [facility] [place] [id number] Care Team Providers Care Mechanical Engineer Name Role Phone None Primary Care Provider Unavailabl e Encounter Details Date Type Department Care Team (Late st Contact Info) Description 10/28/2022 Notes Only Hematology/Oncology at [address] [phone] Lorraine Huerta, [facility] [place] OFFICE OF CARE MANAGEMENT Social History Tobacco [...] he enjoys. He continues to use the [employer] bus to get to his appointments. He indicated he uses [facility] for trips to occasionally. He needs to contact [facility] re aletter he received to make sure he is still on their books. Alexis did not identify any new needs today. Offered support. Will continue to follow as indicated. Brief assessment Supportive Counseling Transportation resources documented in this encounter Plan of Treatment Upcoming Encounters Date Type Department Care Team (Late st Contact Info) Description 01/05/2024 2:30 PM EST TH Visit (TeleHealth) Hematology/Oncology at [address] [phone] Cody Frazier MD [facility] DR HEMATOLOGY [place] [address] Bea Grimes APRN [address] [place] [address] DR HEMATOLOGY AND ONCOLOGY [place], [place] [phone] documented as of this encounter Visit Diagnoses Not on filedocumented in this encounter Care Teams Mechanical Engineer Relationship Specialty Start Date End Date None None PCP - General 04/03/22 04/24/23 documented as of this encounter
--- OUTSIDE RECORDS SUMMARY | 2023-12-29 18:19 | XMS_ITS | Encounter Summary ---
Author Organization [facility] Address [facility] [place] [phone] Care Team Providers Care Vocational Case Manager Name Role Phone None Primary Care [...] EST TH Visit (TeleHealth) Hematology/Oncology at [address] [phone] Cody Frazier MD [facility] DR [place]EMAT[place]Y [place] [address] Bea Grimes APRN [address] [place] [address] DR HEMATOLOGY AND ONCOLOGY [place], [place] [address] documented as of this encounter Visit Diagnoses Not on filedocumented in this encounter Care Teams Vocational Case Manager Relationship Specialty Start Date End Date None None PCP - General 04/03/22 04/24/23 documented as of this encounter
--- OUTSIDE RECORDS SUMMARY | 2023-12-29 18:19 | XMS_ITS | Encounter Summary ---
Author Organization [facility] Address [facility] [place] [address] Care Team Providers Care Tso Name Role Phone None Primary Care Provider Unavailabl e Encounter Details Date Type Department Care Team (Late st Contact Info) Description 05/07/2022 Orders Only Hematology/Oncology at [address] [phone] Cody Frazier MD [facility] DR [place] [address] Malignant neoplasm of lower lobe, [...] PM EST TH Visit (TeleHealth) Hematology/Oncology at [address] [phone] Cody Frazier MD [facility] DR [place] [address] Bea Grimes APRN [address] [place] [address] DR HEMATOLOGY [place] [address] documented as of this encounter Visit Diagnoses Diagnosis Malignant neoplasm of lower lobe, right bronchus 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
--- OUTSIDE RECORDS SUMMARY | 2023-12-29 18:19 | XMS_ITS | Encounter Summary ---
Author Organization [facility] Address [facility] [place] [id number] Care Team Providers Care Drawing Operator Name Role Phone None Primary Care Provider Unavailabl e Encounter Details Date Type Department Care Team (Late st Contact Info) Description 07/31/2022 Orders Only Hematology/Oncology at [address] [phone] Bandar Dillard, RN Secondary malignant [...] of this encounter Progress Notes * Bandar Dillard, RN - 07/31/2022 11:53 AM EDT Pt calling for refill of MS KRYSTAL. He was made aware his providers are away but will send to covering provider to review and sign. 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
--- OUTSIDE RECORDS SUMMARY | 2023-12-29 18:19 | XMS_ITS | Encounter Summary ---
Author Organization [facility] Address [facility] [place] [address] Care Team Providers Care Photo Editor Name Role Phone None Primary Care Provider Unavailabl e Encounter Details Date Type Department Care Team (Late st Contact Info) Description 05/07/2022 Telephone Hematology/Oncology at [address] [phone] Bandar Dillard, RN Social History [...] that his Lyrica is stuck at the [facility] and he has tried to get it and no one seems to be able to help. Called the [facility] pharmacy to follow up on status of Lyrica. They said thier [facility] site has closed down. Advised to cancel that script at [facility] for pt and we will be sending to [facility] in [facility] per pt request. documented in this encounter Plan of Treatment Upcoming Encounters Date Type Department Care Team (Late st Contact Info) Description 01/05/2024 2:30 PM EST TH Visit (TeleHealth) Hematology/Oncology at [address] [phone] Cody Frazier MD [facility] DR HEMATOLOGY [place] [address] Bea Grimes APRN [address] [place] [address] DR HEMATOLOGY AND ONCOLOGY [place], [place] [address] documented as of this encounter Visit Diagnoses Not on filedocumented in this encounter Care Teams Photo Editor Relationship Specialty Start Date End Date None None PCP - General 04/03/22 04/24/23 documented as of this encounter
--- OUTSIDE RECORDS SUMMARY | 2023-12-29 18:19 | XMS_ITS | Encounter Summary ---
Author Organization [facility] Address [facility] [place] [id number] Care Team Providers Care Rose Grader Name Role Phone None Primary Care Provider [...] PM EST TH Visit (TeleHealth) Hematology/Oncology at [address] [phone] Cody Frazier MD [facility] DR [place] [address] Bea Grimes APRN [address] [place] [address] DR HEMATOLOGY AND ONCOLOGY [place], [place] [address] documented as of this encounter Visit Diagnoses Not on filedocumented in this encounter Care Teams Rose Grader Relationship Specialty Start Date End Date None None PCP - General 04/03/22 04/24/23 documented as of this encounter
--- OUTSIDE RECORDS SUMMARY | 2023-12-29 18:19 | XMS_ITS | Encounter Summary ---
Author Organization [facility] Address [facility] [place] [address] Care Team Providers Care All Round Logger Name Role Phone None Primary Care Provider Unavailabl e Reason for Visit * Reason Onset Date Comments Medication Refill 05/10/2022 Encounter Details Date Type Department Care Team (Late st Contact Info) Description 05/10/2022 Refill Hematology/Oncology at [address] [phone] Bea Grimes APRN [address] [place] [address] DR HEMATOLOGY [place] [address] Malignant neoplasm of lower lobe, [...] original note were not included. [facility] Alexis called in today looking for a refill on his morphine CR (Ms Contin) 60 mg Tablet Sustained Release Please send to: [id number] - [address] [address] Phone: ??[phone] ??Fax: ??[phone] Best call back number [phone] commercial credit reviewer of chart suggests this is an appropriate refill request. Prescription pended to Jaycee Grimes APRN for review and e-signature. documented in this encounter Plan of Treatment Upcoming Encounters Date Type Department Care Team (Late st Contact Info) Description 01/05/2024 2:30 PM EST TH Visit (TeleHealth) Hematology/Oncology at [address] [phone] Cody Frazier MD [facility] DR HEMATOLOGY [place] [address] Bea Grimes APRN [address] [place] [address] DR HEMATOLOGY AND ONCOLOGY [place], [place] [id number] documented as of this encounter Visit Diagnoses Diagnosis Malignant neoplasm of lower lobe, right bronchus or lung documented in this encounter Care Teams All Round Logger Relationship Specialty Start Date End Date None None PCP - General 04/03/22 04/24/23 documented as of this encounter
--- OUTSIDE RECORDS SUMMARY | 2023-12-29 18:19 | XMS_ITS | Encounter Summary ---
Author Organization [facility] Address [facility] [place] [id number] Care Team Providers Care Forge Operator Helper Name Role Phone None Primary [...] EST TH Visit (TeleHealth) Hematology/Oncology at [address] [phone] Cody Frazier MD [facility] DR HEMATOLOGY [place] [address] Bea Grimes APRN [address] [place] [address] DR HEMATOLOGY AND ONCOLOGY [place], [place] [address] documented as of this encounter Visit Diagnoses Not on filedocumented in this encounter Care Teams Forge Operator Helper Relationship Specialty Start Date End Date None None PCP - General 04/03/22 04/24/23 documented as of this encounter
--- OUTSIDE RECORDS SUMMARY | 2023-12-29 18:19 | XMS_ITS | Encounter Summary ---
Author Organization [facility] Address [facility] [place] [address] Care Team Providers Care Knockout Worker Name Role Phone None Primary Care Provider Unavailabl e Reason for Visit * Reason Onset Date Comments URI 06/10/2022 Encounter Details Date Type Department Care Team (Late st Contact Info) Description 06/10/2022 Telephone Hematology/Oncology at [address] [phone] Deanne Nelson, RN URI Social [...] EDT ----- Regarding: Fuld Patient Alexis Pelayo [phone] called he would like a call back today from nursing? [phone] He cancelled his appt today not feeling well. Thank you, Raven documented in this encounter Plan of Treatment Upcoming Encounters Date Type Department Care Team (Late st Contact Info) Description 01/05/2024 2:30 PM EST TH Visit (TeleHealth) Hematology/Oncology at [address] [phone] Cody Frazier MD [facility] DR [place] [address] Bea Grimes APRN [address] [place] [address] DR HEMATOLOGY AND ONCOLOGY [place], [place] [id number] documented as of this encounter Visit Diagnoses Not on filedocumented in this encounter Care Teams Knockout Worker Relationship Specialty Start Date End Date None None PCP - General 04/03/22 04/24/23 documented as of this encounter
--- OUTSIDE RECORDS SUMMARY | 2023-12-29 18:19 | XMS_ITS | Encounter Summary ---
Author Organization [facility] Address [facility] [place] [address] Care Team Providers Care Second Mate Name Role Phone None Primary Care Provider Unavailabl e Encounter Details Date Type Department Care Team (Late st Contact Info) Description 07/01/2022 9:15 PM EDT Ancillary Procedure Radiology Library at [facility] [place] [phone] Bea Grimes[address] HEMATOLOGY [place] [address] Social History Tobacco Use Types [...] PM EST TH Visit (TeleHealth) Hematology/Oncology at [address] [phone] Cody Frazier MD [facility] DR HEMATOLOGY [place] [address] Bea Grimes APRN [address] [place] [address] DR HEMATOLOGY [place] [address] documented as of this encounter Procedures Procedure Name Priority Date/Time Associated Diagnosis Comments FILM LIBRARY STORAGE ONLY CT CHEST Routine 07/01/2022 9:13 PM EDT documented in this encounter Results * Film Library- Storage Only CT Chest (07/01/2022 9:13 PM EDT) Narrative HENNA - 07/01/2022 9:13 PM EDT This exam is auto-finalizing. It's purpose is for storage only. Bea Grimes APRN IMMarisol FILM LIBRARY ORDERABLES [place], [place] documented in this encounter Visit Diagnoses Not on filedocumented in this encounter Care Teams Second Mate Relationship Specialty Start Date End Date None None PCP - General 04/03/22 04/24/23 documented as of this encounter
--- OUTSIDE RECORDS SUMMARY | 2023-12-29 18:19 | XMS_ITS | Encounter Summary ---
Author Organization [facility] Address [facility] [place] [address] Care Team Providers Care Hop Trainer Name Role Phone None Primary Care Provider Unavailabl e Reason for Visit * Reason Onset Date Comments Medication Refill 04/17/2022 MSIR Encounter Details Date Type Department Care Team (Late st Contact Info) Description 04/17/2022 Refill Hematology/Oncology at [address] [phone] Bea Grimes APRN [address] [place] [address] DR HEMATOLOGY [place] [address] Secondary malignant neoplasm of bone; [...] EST TH Visit (TeleHealth) Hematology/Oncology at [address] [phone] Cody Frazier MD [facility] DR HEMATOLOGY [place] [address] Bea Grimes APRN [address] [place] [address] DR HEMATOLOGY AND ONCOLOGY [place], [place] [address] documented as of this encounter Visit Diagnoses Diagnosis 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
--- OUTSIDE RECORDS SUMMARY | 2023-12-29 18:19 | XMS_ITS | Encounter Summary ---
Author Organization [facility] Address [facility] [place] [address] Care Team Providers Care Bulk Mail Technician Name Role Phone None Primary Care Provider Unavailabl e Encounter Details Date Type Department Care Team (Late st Contact Info) Description 04/17/2022 Orders Only Hematology/Oncology at [address] [phone] Mohini Caal, RN Social History [...] EST TH Visit (TeleHealth) Hematology/Oncology at [address] [phone] Cody Frazier MD [facility] DR HEMATOLOGY [place] [address] Bea Grimes APRN [address] [place] [address] DR HEMATOLOGY [place] [address] documented as of this encounter Visit Diagnoses Not on filedocumented in this encounter Care Teams Bulk Mail Technician Relationship Specialty Start Date End Date None None PCP - General 04/03/22 04/24/23 documented as of this encounter
--- OUTSIDE RECORDS SUMMARY | 2023-12-29 18:19 | XMS_ITS | Encounter Summary ---
Author Organization [facility] Address [facility] [place] [address] Care Team Providers Care Upholstery Parts Sorter Name Role Phone None Primary Care Provider [...] EST TH Visit (TeleHealth) Hematology/Oncology at [address] [phone] Cody Frazier MD [facility] DR HEMATOLOGY [place] [address] Bea Grimes APRN [address] [place] [address] DR HEMATOLOGY AND ONCOLOGY [place], [place] [address] documented as of this encounter Visit Diagnoses Not on filedocumented in this encounter Care Teams Upholstery Parts Sorter Relationship Specialty Start Date End Date None None PCP - General 04/03/22 04/24/23 documented as of this encounter
--- OUTSIDE RECORDS SUMMARY | 2023-12-29 18:19 | XMS_ITS | Encounter Summary ---
Author Organization [facility] Address [facility] [place] [address] Care Team Providers Care Grade Foreman Name Role Phone Arias Mast DNP Primary Care Provider [phone] Encounter Details Date Type Department Care Team (Late st Contact Info) Description 03/15/2022 Orders Only [place]ematology [place] [phone] Cody Frazier MD [facility] DR [place] [address] Malignant neoplasm of lower lobe, right bronchus [...] EST TH Visit (TeleHealth) Hematology/Oncology at [address] [phone] Cody Frazier MD [facility] DR [place] [address] Bea Grimes APRN [address] [place] [address] DR HEMATOLOGY [place] [address] documented as of this encounter Visit Diagnoses Diagnosis Malignant neoplasm of lower lobe, right bronchus or lung 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
--- OUTSIDE RECORDS SUMMARY | 2023-12-29 18:19 | XMS_ITS | Encounter Summary ---
Author Organization [facility] Address [facility] [place] [address] Care Team Providers Care Vocational Rehabilitation Specialist Name Role Phone None Primary Care Provider Unavailabl e Encounter Details Date Type Department Care Team (Late st Contact Info) Description 08/02/2022 Orders Only Hematology/Oncology at [address] [phone] Cody Frazier MD [facility] DR [place]AT[place] [address] Secondary malignant neoplasm of bone; [...] EST TH Visit (TeleHealth) Hematology/Oncology at [address] [phone] Cody Frazier MD [facility] DR [place]AT[place] [address] Bea Grimes APRN [address] [place] [address] DR HEMATOLOGY [place] [address] documented as of this encounter Visit Diagnoses Diagnosis 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
--- OUTSIDE RECORDS SUMMARY | 2023-12-29 18:19 | XMS_ITS | Encounter Summary ---
Author Organization [facility] Address [facility] [place] [address] Care Team Providers Care Branch Service Specialist Name Role Phone None Primary Care Provider Unavailabl e Encounter Details Date Type Department Care Team (Late st Contact Info) Description 06/19/2022 11:30 AM EDT Office Visit Hematology/Oncology at [address] [phone] Bea Grimes APRN [address] [place] [address] DR [place] [address] Malignant neoplasm of lower lobe, [...] were not included. Hematology & Medical Oncology [facility] [address] [address] Alexis Pelayo is being seen for the evaluation of lung cancer. Assessment & Plan: Alexis Pelayo is a 51 y.o. male patient with a past medical history significant for COPD, a 60-ucdr-artp smoking history, chronic migraine headaches diagnosed with [...] accident, currently about the same. Bea Grimes, PROTECTIVE SIGNAL OPERATIONS SUPERVISOR 06/18/2022 Medical Oncology & Hematology. [facility]. CC: HPI/Interval History/Subjective: Last seen 05/22/2022 He [...] Social History/Support Network: Home situation: From the [place]. Came up here because of family Has a sister Kristine Brantley who lives in [place] who is his DPOA. 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 Tobacco use: Down to a few [...] a past medical history significant forCOPD, a 06-wvjt-gnsv smoking history, chronic migraine headaches who was [...] 1.8 total bilirubin 0.1 AST 11 ALK [place] 84 ALT 18 albumin 3.6 up from [...] EST TH Visit (TeleHealth) Hematology/Oncology at [address] [phone] Cody Frazier MD [facility] DR [place] [address] Bea Grimes APRN [address] [place] [address] DR HEMATOLOGY AND ONCOLOGY [place], [place] [address] documented as of this encounter Visit Diagnoses Diagnosis Malignant neoplasm of lower lobe, right bronchus or lung 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
--- OUTSIDE RECORDS SUMMARY | 2023-12-29 18:19 | XMS_ITS | Encounter Summary ---
Author Organization [facility] Address [facility] [place] [address] Care Team Providers Care Senior Sourcing Manager Name Role Phone None Primary Care [...] (Paraplatin) AUC = 5 Cody Frazier MD [address] [place] [address] DR [place] [address] Cody Frazier MD [address] [place] [address] DR [place] [address] Referral ID Status Reason Start Date Expiration Date Visits Re quested Visits Authorized [id number] Closed 02/10/2022 2022 99 99 Encounter Details Date Type Department Care Team (Late st Contact Info) Description 06/19/2022 12:00 PM EDT Infusion Hematology Oncology at [address] [phone] Secondary malignant neoplasm of bone; [...] EST TH Visit (TeleHealth) Hematology/Oncology at [address] [phone] Cody Frazier MD [facility] DR HEMATOLOGY [place] [address] Bea Grimes APRN [address] [place] [address] DR HEMATOLOGY AND ONCOLOGY [place], [place] [address] documented as of this encounter Visit Diagnoses [...] mL/hr documented in this encounter Care Teams Senior Sourcing Manager Relationship Specialty Start Date End Date None None PCP - General 04/03/22 04/24/23 documented as of this encounter
--- OUTSIDE RECORDS SUMMARY | 2023-12-29 18:19 | XMS_ITS | Encounter Summary ---
Author Organization [facility] Address [facility] [place] [address] Care Team Providers Care Bell Ringer Name Role Phone None Primary Care Provider Unavailabl e Reason for Visit * Reason Onset Date Comments Medication Refill 05/27/2022 Encounter Details Date Type Department Care Team (Late st Contact Info) Description 05/27/2022 Refill Hematology/Oncology at [address] [phone] Bea Grimes APRN [address] [place] [address] HEMATOLOGY [place] [address] Malignant neoplasm of lower lobe, [...] original note were not included. Ashanti Lira [facility] Hem Onc Nurse Alexis called in today looking for his refill on his :morphine IR (MS IR) 15 mg IR tablet Please send to: ??[facility] - [address] [address] Phone: ??[phone] ??Fax: ??[phone] Best call back number: [phone] rn clinical review of chart suggests that this is an appropriate refill request. Prescription pended to Jaycee Grimes APRN for review and e-sign, if agreeable. 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
--- OUTSIDE RECORDS SUMMARY | 2023-12-29 18:19 | XMS_ITS | Encounter Summary ---
Author Organization [facility] Address [facility] [place] [address] Care Team Providers Care Thread Reeler Name Role Phone None Primary Care Provider Unavailabl e Encounter Details Date Type Department Care Team (Late st Contact Info) Description 07/10/2022 1:00 PM EDT Office Visit Hematology/Oncology at [address] [phone] Bea Grimes APRN [address] [place] [address] DR [place] [address] Malignant neoplasm of lower lobe, [...] were not included. Hematology & Medical Oncology [facility] [address] [address] Alexis Pelayo is being seen for the evaluation of lung cancer. Assessment & Plan: Alexis Pelayo is a 51 y.o. male patient with a past medical history significant for COPD, a 17-wzok-gmng smoking history, chronic migraine headaches diagnosed with [...] thinks they may be improving. Bea Grimes, DYE RANGE FEEDER 07/10/2022 Medical Oncology & Hematology. [facility] [place], [facility]. CC: HPI/Interval History/Subjective: Last seen 06/19/2022 Here [...] Social History/Support Network: Home situation: From the [place] originally. Came up here because of family Has a sister Kristine Brantley who lives in [place] who is his DPOA. Employment: Originally trained as [employer] and had been . 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 [...] a past medical history significant forCOPD, a 97-vunw-qpwa smoking history, chronic migraine headaches who was [...] WBC 18.42, H/H 11.6/36.2, plt 767, ANC [address]609, Na 135, K 3.5, Cl 98, CO2 [...] 1.8 total bilirubin 0.1 AST 11 ALK [place] 84 ALT 18 albumin 3.6 up from [...] PM EST TH Visit (TeleHealth) Hematology/Oncology at [address] [phone] Cody Frazier MD [facility] DR [place] [address] Bea Girmes APRN [address] [place] [address] DR HEMATOLOGY AND ONCOLOGY [place], [place] [id number] documented as of this encounter Results * [...] who have questions please contact the health hemodialysis patient care specialist that requested your imaging first. ? Electronically signed by: Damion Serrano MD, [facility] ??([phone]), at 07/22/2022 10:10 AM Narrative 07/22/2022 10:10 AM EDT EXAMINATION: REQUEST FOR 2ND READ CT CHEST CLINICAL HISTORY: NSCLC, on pembrolizumab, outside CT did not have most recent imaging for comparison, possible new nodules, continued Bullae.; Sending Institution [facility].; Date of exam [id number]; I believe a reinterpretation of this exam may alter care of Patient. Yes TECHNIQUE: Contrast enhanced CT of the chest performed at [facility] and submitted to our department for [...] possible new nodules, continued Bullae.; Sending Institution [facility].; Date of exam [id number]; I believe a reinterpretation of this exam may alter care of Patient. Yes TECHNIQUE: Contrast enhanced CT of the chest performed at [facility] and submitted to our department [...] the posterior right lower lobe (series 3 [id number]). Enlarging density in the right lower lobe [...] patients who have questions please contactthe health hemodialysis patient care specialist that requested your imaging first. Electronically signed by: Damion Serrano MD, [facility]([phone]), at 07/22/2022 10:10 AM Bea Grimes APRN IMG OUTSIDE INTE RPRETATION ORDERABLES documented in this encounter Visit Diagnoses Diagnosis Malignant neoplasm of lower lobe, right bronchus or lung Chemotherapy induced nausea and vomiting Nausea with vomiting Lung bullae Emphysematous bleb Malignant neoplasm of lower lobe, right bronchus or lung Lung bullae Emphysematous bleb documented in this encounter Care Teams Thread Reeler Relationship Specialty Start Date End Date None None PCP - General 04/03/22 04/24/23 documented as of this encounter
--- OUTSIDE RECORDS SUMMARY | 2023-12-29 18:19 | XMS_ITS | Encounter Summary ---
Author Organization [facility] Address [facility] [place] [id number] Care Team Providers Care Three Dimensional Art Instructor Name Role Phone None Primary Care Provider Unavailabl e Encounter Details Date Type Department Care Team (Late st Contact Info) Description 04/29/2022 Notes Only Hematology/Oncology at [address] [phone] Lorraine Huerta, [facility] OFFICE OF CARE [...] indicated he is now working with an client technical professional to apply for SSDI. He continues to use the [employer] for rides to his appointments. He does not want to use a private tanker driver from [facility] as he is managing with the bus. He did not indicate any new needs at this time. Reminded him of CERTIFIED JUVENILE PROBATION OFFICER availability and contact information. Will continue to follow for support and resources. Brief assessment Supportive Counseling documented in this encounter Plan of Treatment Upcoming Encounters Date Type Department Care Team (Late st Contact Info) Description 01/05/2024 2:30 PM EST TH Visit (TeleHealth) Hematology/Oncology at [address] [phone] [facility] DR [place] [address] Bea Grimes APRN [address] [place] [address] DR HEMATOLOGY AND ONCOLOGY [place], [place] [address] documented as of this encounter Visit Diagnoses Not on filedocumented in this encounter Care Teams Three Dimensional Art Instructor Relationship Specialty Start Date End Date None None PCP - General 04/03/22 04/24/23 documented as of this encounter
--- OUTSIDE RECORDS SUMMARY | 2023-12-29 18:19 | XMS_ITS | Encounter Summary ---
Author Organization [facility] Address [facility] [place] [id number] Care Team Providers Care .Net Developer Name Role Phone None Primary Care Provider Unavailabl e Encounter Details Date Type Department Care Team (Late st Contact Info) Description 06/19/2022 Notes Only Hematology/Oncology at [address] [phone] Lorraine Huerta, [facility] OFFICE OF CARE MANAGEMENT Social History Tobacco [...] is getting back and forth with the [employer] bus. Alexis did not identify any new needs today. Offered support. Will continue to follow as a resource for him. Brief assessment Supportive Counseling documented in this encounter Plan of Treatment Upcoming Encounters Date Type Department Care Team (Late st Contact Info) Description 01/05/2024 2:30 PM EST TH Visit (TeleHealth) Hematology/Oncology at [address] [phone] Cody Frazier MD [facility] DR HEMATOLOGY [place] [address] Bea Grimes APRN [address] [place] [address] DR HEMATOLOGY AND ONCOLOGY [place], [place] [address] documented as of this encounter Visit Diagnoses Not on filedocumented in this encounter Care Teams .Net Developer Relationship Specialty Start Date End Date None None PCP - General 04/03/22 04/24/23 documented as of this encounter
--- OUTSIDE RECORDS SUMMARY | 2023-12-29 18:19 | XMS_ITS | Encounter Summary ---
Author Organization [facility] Address [facility] [place] [address] Care Team Providers Care Diesel Stationary Engineer Name Role Phone None Primary Care [...] (Paraplatin) AUC = 5 Cody Frazier MD [address] [place] [address] DR HEMATOLOGY [place] [address] Cody Frazier MD [address] [place] [address] DR HEMATOLOGY [place] [address] Referral ID Status Reason Start Date Expiration Date Visits Re quested Visits Authorized [id number] Closed 02/10/2022 2022 99 99 Encounter Details Date Type Department Care Team (Late st Contact Info) Description 07/10/2022 1:30 PM EDT Infusion Hematology Oncology at [address] [phone] Secondary malignant neoplasm of bone; [...] PM EST TH Visit (TeleHealth) Hematology/Oncology at [address] [phone] Cody Frazier MD [facility] DR HEMATOLOGY AND ONCOLOGY [facility] [place] [address] Bea Grimes APRN [address] [place] [address] DR HEMATOLOGY AND ONCOLOGY [place], [place] [address] documented as of this encounter Visit Diagnoses [...] mL/hr documented in this encounter Care Teams Diesel Stationary Engineer Relationship Specialty Start Date End Date None None PCP - General 04/03/22 04/24/23 documented as of this encounter
--- OUTSIDE RECORDS SUMMARY | 2023-12-29 18:19 | XMS_ITS | Encounter Summary ---
Author Organization [facility] Address [facility] [place] [address] Care Team Providers Care Scraper Loader Operator Name Role Phone None Primary Care Provider Unavailabl e Reason for Visit * Reason Onset Date Comments Prior Authorization 07/10/2022 Dronabinol Encounter Details Date Type Department Care Team (Late st Contact Info) Description 07/10/2022 Telephone Hematology/Oncology at [address] [phone] Bandar Dillard berry grower (Dronabinol ) Social History Tobacco Use Types [...] EST TH Visit (TeleHealth) Hematology/Oncology at [address] [phone] Cody Frazier MD [facility] [place] [address] Bea Grimes APRN [address] [place] [address] DR HEMATOLOGY AND ONCOLOGY [place], [place] [address] documented as of this encounter Visit Diagnoses Not on filedocumented in this encounter Care Teams Scraper Loader Operator Relationship Specialty Start Date End Date None None PCP - General 04/03/22 04/24/23 documented as of this encounter
--- OUTSIDE RECORDS SUMMARY | 2023-12-29 18:19 | XMS_ITS | Encounter Summary ---
Author Organization [facility] Address [facility] [place] [address] Care Team Providers Care Lifter Driver Name Role Phone None Primary Care Provider Unavailabl e Encounter Details Date Type Department Care Team (Late st Contact Info) Description 07/22/2022 3:20 AM EDT Ancillary Procedure Radiology Library at [facility] [place] [phone] Bea Grimes[address] [place] [address] Malignant neoplasm of lower lobe, [...] EST TH Visit (TeleHealth) Hematology/Oncology at [address] [phone] Cody Frazier MD [facility] DR [place] [address] Bea Grimes APRN [address] [place] [address] DR [place] [address] documented as of this encounter Procedures Procedure [...] questions please contact the health pet care associate that requested your imaging first. ? Electronically signed by: Damion Serrano MD, [facility] ??([phone]), at 07/22/2022 10:10 AM Narrative 07/22/2022 10:10 AM EDT EXAMINATION: REQUEST FOR 2ND READ CT CHEST CLINICAL HISTORY: NSCLC, on pembrolizumab, outside CT did not have most recent imaging for comparison, possible new nodules, continued Bullae.; Sending Institution [facility].; Date of exam [id number]; I believe a reinterpretation of this exam may alter care of Patient. Yes TECHNIQUE: Contrast enhanced CT of the chest performed at [facility] and submitted to our department for [...] new nodules, continued Bullae.; Sending Institution [facility].; Date of exam [id number]; I believe a reinterpretation of this exam may alter care of Patient. Yes TECHNIQUE: Contrast enhanced CT of the chest performed at [facility] and submitted to our department for [...] the posterior right lower lobe (series 3 [id number]). Enlarging density in the right lower lobe [...] have questions please contactthe health pet care associate that requested your imaging first. Bea Grimes CENTER LINE CUTTER OPERATOR IMG OUTSIDE INTE RPRETATION ORDERABLES documented in this encounter Visit Diagnoses Diagnosis Malignant neoplasm of lower lobe, right bronchus or lung Lung bullae Emphysematous bleb documented in this encounter Care Teams Lifter Driver Relationship Specialty Start Date End Date None None PCP - General 04/03/22 04/24/23 documented as of this encounter
--- OUTSIDE RECORDS SUMMARY | 2023-12-29 18:19 | XMS_ITS | Encounter Summary ---
Author Organization [facility] Address [facility] [place] [address] Care Team Providers Care Hospital Wellness Coordinator [...] IR All Biopsy Procedures Cody Frazier MD [facility] DR [place] [address] [facility] [place] [address] Referral ID Status Reason Start Date Expiration Date V isits Requested Visits Authorized [id number] Closed Specialty Service Requested 08/12/2022 02/13/2024 1 1 Encounter Details Date Type Department Care Team (Late st Contact Info) Description 08/05/2022 3:00 PM EDT Office Visit Hematology/Oncology at [address] [phone] Cody Frazier MD [facility] DR [place] [address] Bea Grimes APRN [address] [place] [address] DR HEMATOLOGY AND ONCOLOGY [place], [place] [address] Malignant neoplasm of lower lobe, right bronchus [...] not included. Hematology & Medical Oncology [address] [address] Alexis Pelayo is being seen for the evaluation of lung cancer. Assessment & Plan: Alexis Pelayo is a 51 y.o. male patient with a past medical history significant for COPD, a 20-wcan-fcxa smoking history, chronic migraine headaches diagnosed with [...] guided biopsy of the RUL lesion at [facility] (Series 2 Image 36) - Continue with [...] Cody Frazier MD, [place] 08/05/2022 Thoracic Oncology [facility] CC: HPI/Interval History/Subjective: Last seen 07/10/2022 Feels [...] Social History/Support Network: Home situation: From the [place] originally. Came up here because of family Has a sister Kristine [place] who lives [place] who is his DPOA. 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 [...] a past medical history significant forCOPD, a 78-ptdr-lkph smoking history, chronic migraine headaches who was [...] PM EST TH Visit (TeleHealth) Hematology/Oncology at [address] [phone] Cody Frazier MD [facility] DR HEMATOLOGY [place] [address] Bea Grimes APRN [address] [place] [address] DR HEMATOLOGY AND ONCOLOGY [place], [place] [id number] documented as of this encounter Results * [...] (chronic) documented in this encounter Care Teams Hospital Wellness Coordinator Relationship Specialty Start Date End Date None None PCP - General 04/03/22 04/24/23 documented as of this encounter
--- OUTSIDE RECORDS SUMMARY | 2023-12-29 18:19 | XMS_ITS | Encounter Summary ---
Author Organization [facility] Address [facility] [place] [address] Care Team Providers Care Electrician Deck Name Role Phone None Primary Care Provider Unavailabl e Encounter Details Date Type Department Care Team (Late st Contact Info) Description 04/12/2022 Telephone Hematology [place] [phone] Buddy Fitzpatrick MD [facility] DR HEMATOLOGY/[place] [address] Social History Tobacco Use Types Packs/Day Years [...] ms contin. This has been sent to [place] in [facility]. I will alert Dr. Frazier that this has been refilled. Buddy Fitzpatrick MD Hematology/Oncology Fellow documented in this encounter Plan of Treatment Upcoming Encounters Date Type Department Care Team (Late st Contact Info) Description 01/05/2024 2:30 PM EST Visit (TeleHealth) Hematology/Oncology at [address] [phone] Cody Frazier MD [facility] DR HEMATOLOGY [place] [address] Bea Grimes APRN [address] [place] [address] DR [place] [address] documented as of this encounter Visit Diagnoses Not on filedocumented in this encounter Care Teams Electrician Deck Relationship Specialty Start Date End Date None None PCP - General 04/03/22 04/24/23 documented as of this encounter
--- OUTSIDE RECORDS SUMMARY | 2023-12-29 18:19 | XMS_ITS | Encounter Summary ---
Author Organization [facility] Address [facility] [place] [id number] Care Team Providers Care Tso Name Role Phone Arias Mast DNP Primary Care Provider [phone] Reason for Visit * Reason Onset Date Comments Medication Refill 03/27/2022 Encounter Details Date Type Department Care Team (Late st Contact Info) Description 03/27/2022 Refill Hematology Oncology at [address] [phone] Bea Grimes APRN [address] [place] [address] DR H[place]ATOLOGY [place] [address] Secondary malignant neoplasm of bone; [...] Regarding: morphine IR (MSIR) 15 mg Tablet [[id number]] Alexis called to get an order out for a refill on his morphine IR (MSIR) 15 mg Tablet [[id number]]. He said he has a few days left but will be running out over the weekend and he wanted to put in an order now so he can pick one up this week. He would like them to go to [facility]. 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
--- OUTSIDE RECORDS SUMMARY | 2023-12-29 18:19 | XMS_ITS | Encounter Summary ---
Author Organization [facility] Address [facility] [place] [address] Care Team Providers Care Psychologist Personnel Name Role Phone None Primary Care Provider Unavailabl e Reason for Visit * Reason Onset Date Comments Prior Authorization 06/19/2022 ki Encounter Details Date Type Department Care Team (Late st Contact Info) Description 06/19/2022 Telephone Hematology/Oncology at [address] [phone] Bandar Dillard, it senior software engineer java (ki) Social History Tobacco Use Types Packs/Day [...] Notes * Telephone Encounter - Bandar Dillard, PATRICIA - 06/19/2022 1:24 PM EDT Completed [place] for marinol medication and faxed to [place] [facility] , fax confirmed. ----- Message from Deanne Nelson RN sent at 06/19/2022 11:37 AM EDT ----- Regarding: PA for marinol Alexis said he got a text from [employer] saying his Marinol needs at [place]. Can you look into this? He is anxious to get it. Thanks Deanne documented in this encounter Plan of Treatment Upcoming Encounters Date Type Department Care Team (Late st Contact Info) Description 01/05/2024 2:30 PM EST TH Visit (TeleHealth) Hematology/Oncology at [address] [phone] Cody Frazier MD [facility] DR [place] [address] Bea Grimes APRN [address] [place] [address] DR HEMATOLOGY AND ONCOLOGY [place], [place] [id number] documented as of this encounter Visit Diagnoses Not on filedocumented in this encounter Care Teams Psychologist Personnel Relationship Specialty Start Date End Date None None PCP - General 04/03/22 04/24/23 documented as of this encounter
--- OUTSIDE RECORDS SUMMARY | 2023-12-29 18:19 | XMS_ITS | Encounter Summary ---
Author Organization [facility] Address [facility] [place] [address] Care Team Providers Care Device Engineer Name Role Phone None Primary Care [...] (Paraplatin) AUC = 5 Cody Frazier MD [address] [place] [address] DR HEMATOLOGY [place] [address] Cody Frazier MD [address] [place] [address] DR HEMATOLOGY [place] [address] Referral ID Status Reason Start Date Expiration Date Visits Re quested Visits Authorized [id number] Closed 02/10/2022 2022 99 99 Encounter Details Date Type Department Care Team (Late st Contact Info) Description 05/22/2022 11:00 AM EDT Infusion Hematology Oncology at [address] [phone] Secondary malignant neoplasm of bone; [...] to treat. LAB DATA: completed today at [facility] adequate for treatment IV ACCESS: PIV [...] EST TH Visit (TeleHealth) Hematology/Oncology at [address] [phone] Cody Frazier MD [facility] DR HEMATOLOGY [place] [address] Bea Grimes APRN [address] [place] [address] DR HEMATOLOGY [place] [address] documented as of this encounter Visit Diagnoses [...] mL/hr documented in this encounter Care Teams Device Engineer Relationship Specialty Start Date End Date None None PCP - General 04/03/22 04/24/23 documented as of this encounter
--- OUTSIDE RECORDS SUMMARY | 2023-12-29 18:19 | XMS_ITS | Encounter Summary ---
Author Organization [facility] Address [facility] [place] [address] Care Team Providers Care Hot Metal Crane Operator Name Role Phone None Primary Care Provider Unavailabl e Encounter Details Date Type Department Care Team (Late st Contact Info) Description 06/10/2022 Orders Only Hematology/Oncology at [address] [phone] Bea Grimes APRN [address] [place] [address] DR HEMATOLOGY [place] [address] Malignant neoplasm of lower lobe, [...] EST TH Visit (TeleHealth) Hematology/Oncology at [address] [phone] Cody Frazier MD [facility] DR [place] [address] Bea Grimes APRN [address] [place] [address] DR HEMATOLOGY [place] [address] documented as of this encounter Visit Diagnoses Diagnosis Malignant neoplasm of lower lobe, right bronchus or lung documented in this encounter Care Teams Hot Metal Crane Operator Relationship Specialty Start Date End Date None None PCP - General 04/03/22 04/24/23 documented as of this encounter
--- OUTSIDE RECORDS SUMMARY | 2023-12-29 18:19 | XMS_ITS | Encounter Summary ---
Author Organization [facility] Address [facility] [place] [address] Care Team Providers Care Assistant Bookkeeper Name Role Phone None Primary Care Provider [...] (Paraplatin) AUC = 5 Cody Frazier MD [address] [place] [address] DR [place] [address] Cody Frazier MD [address] [place] [address] DR [place] [address] Referral ID Status Reason Start Date Expiration Date Visits Re quested Visits Authorized [id number] Closed 02/10/2022 2022 99 99 Encounter Details Date Type Department Care Team (Late st Contact Info) Description 08/05/2022 3:30 PM EDT Infusion Hematology Oncology at [address] [phone] Malignant neoplasm of lower lobe, [...] EST TH Visit (TeleHealth) Hematology/Oncology at [address] [phone] Cody Frazier MD [facility] DR [place] [address] Bea Grimes APRN [address] [place] [address] DR HEMATOLOGY AND ONCOLOGY [place], [place] [address] documented as of this encounter Visit Diagnoses [...] mL/hr documented in this encounter Care Teams Assistant Bookkeeper Relationship Specialty Start Date End Date None None PCP - General 04/03/22 04/24/23 documented as of this encounter
--- OUTSIDE RECORDS SUMMARY | 2023-12-29 18:19 | XMS_ITS | Encounter Summary ---
Author Organization [facility] Address [facility] [place] [id number] Care Team Providers Care Pharmacy Technician Name Role Phone None Primary Care Provider Unavailabl e Reason for Visit * Reason Onset Date Comments Medication Refill 07/09/2022 MS CR and IR Encounter Details Date Type Department Care Team (Late st Contact Info) Description 07/09/2022 Refill Hematology/Oncology at [address] [phone] Bea Grimes APRN [address] [place] [address] DR HEMAT[place] [address] Malignant neoplasm of lower lobe, [...] Please send to: [id number] - [address] [address] ?? 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
--- OUTSIDE RECORDS SUMMARY | 2023-12-29 18:19 | XMS_ITS | Encounter Summary ---
Author Organization [facility] Address [facility] [place] [address] Care Team Providers Care Fresco Artist Name Role Phone None Primary Care Provider Unavailabl e Encounter Details Date Type Department Care Team (Late st Contact Info) Description 05/22/2022 10:30 AM EDT Office Visit Hematology/Oncology at [address] [phone] Bea Grimes APRN [address] [place] [address] [place] [address] Malignant neoplasm of lower lobe, [...] were not included. Hematology & Medical Oncology [address] [address] Alexis Pelayo is being seen for the evaluation of lung cancer. Assessment & Plan: Alexis Pelayo is a 51 y.o. male patient with a past medical history significant for COPD, a 24-pzdk-oxbw smoking history, chronic migraine headaches diagnosed with [...] this note to their office. Bea Grimes, STATION REPAIRER 05/22/2022 Medical Oncology & Hematology. [facility]. CC: HPI/Interval History/Subjective: Last seen 04/29/2022 Breathing [...] Social History/Support Network: Home situation: From the [place] originally. Came up here because of family Has a sister Kristine Brantley who lives in [place] who is his DPOA. 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 Tobacco use: Down to a few [...] a past medical history significant forCOPD, a 18-yqwo-oepi smoking history, chronic migraine headaches who was [...] EST TH Visit (TeleHealth) Hematology/Oncology at [address] [phone] Cody Frazier MD [facility] DR [place] [address] Bea Grimes APRN [address] [place] [address] [place] [address] documented as of this encounter Visit Diagnoses Diagnosis Malignant neoplasm of lower lobe, right bronchus or lung Gastroesophageal reflux disease, unspecified whether esophagitis present documented in this encounter Care Teams Fresco Artist Relationship Specialty Start Date End Date None None PCP - General 04/03/22 04/24/23 documented as of this encounter
--- OUTSIDE RECORDS SUMMARY | 2023-12-29 18:19 | XMS_ITS | Encounter Summary ---
Author Organization [facility] Address [facility] [place] [address] Care Team Providers Care Dental Financial Coordinator Name Role Phone Arias Mast DNP Primary Care Provider [phone] Encounter Details Date Type Department Care Team (Late st Contact Info) Description 03/15/2022 Orders Only Hematology [place] [phone] Cody Frazier MD [facility] DR HEMATOLOGY [place] [address] Malignant neoplasm of lower lobe, right bronchus [...] EST TH Visit (TeleHealth) Hematology/Oncology at [address] [phone] Cody Frazier MD [facility] DR HEMATOLOGY [place] [address] Bea Grimes APRN [address] [place] [address] DR [place] [address] documented as of this encounter Visit Diagnoses Diagnosis Malignant neoplasm of lower lobe, right bronchus or lung documented in this encounter Care Teams Dental Financial Coordinator Relationship Specialty Start Date End Date Arias Mast DNP PCP - General Family Medicine 02/14/21 04/02/22 documented as of this encounter
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
--- OUTSIDE RECORDS SUMMARY | 2023-12-29 18:19 | XMS_ITS | Encounter Summary ---
Author Organization [facility] Address [facility] [place] [address] Care Team Providers Care Virtualization Consultant Name Role Phone None Primary Care [...] EST TH Visit (TeleHealth) Hematology/Oncology at [address] [phone] Cody Frazier MD [facility] DR HEMATOLOGY [place] [address] Bea Grimes APRN [address] [place] [address] DR HEMATOLOGY AND ONCOLOGY [place], [place] [address] documented as of this encounter Visit Diagnoses Not on filedocumented in this encounter Care Teams Virtualization Consultant Relationship Specialty Start Date End Date None None PCP - General 04/03/22 04/24/23 documented as of this encounter
--- OUTSIDE RECORDS SUMMARY | 2023-12-29 18:19 | XMS_ITS | Encounter Summary ---
Author Organization [facility] Address [facility] [place] [id number] Care Team Providers Care Housing And Residence Life Director Name Role Phone None Primary Care Provider Unavailabl e Encounter Details Date Type Department Care Team (Late st Contact Info) Description 07/10/2022 Notes Only Hematology/Oncology at [address] [phone] Lorraine Huerta, [place] OFFICE OF CARE MANAGEMENT Social History Tobacco [...] has a cat now. His sister from [place] is moving to the area and he is pleased with this. He works out his transportation needs with [employer]. Alexis did not identify any new needs today. Reminded him of CUSTOMER CARE TEAM COACH availability. Will continue to follow as indicated. Brief assessment Supportive Counseling documented in this encounter Plan of Treatment Upcoming Encounters Date Type Department Care Team (Late st Contact Info) Description 01/05/2024 2:30 PM EST TH Visit (TeleHealth) Hematology/Oncology at [address] [phone] Cody Frazier MD [facility] DR [place] [address] Bea Grimes APRN [address] [place] [address] DR HEMATOLOGY AND ONCOLOGY [place], [place] [address] documented as of this encounter Visit Diagnoses Not on filedocumented in this encounter Care Teams Housing And Residence Life Director Relationship Specialty Start Date End Date None None PCP - General 04/03/22 04/24/23 documented as of this encounter
--- OUTSIDE RECORDS SUMMARY | 2023-12-29 18:19 | XMS_ITS | Encounter Summary ---
Author Organization [facility] Address [facility] [place] [address] Care Team Providers Care Nuclear Medicine Specialist Name Role Phone None Primary Care Provider Unavailabl e Reason for Visit * Reason Onset Date Comments Medication Refill 04/12/2022 Encounter Details Date Type Department Care Team (Late st Contact Info) Description 04/12/2022 Refill Hematology/Oncology at [address] [phone] Bea Grimes APRN [address] [place] [address] DR HEMATOLOGY [place] [address] Malignant neoplasm of lower lobe, [...] (Ms Contin) 60 mg Tablet Sustained Release [[id number]] Please change pharmacy to Didier Moreno He is completely out documented in this encounter Plan of Treatment Upcoming Encounters Date Type Department Care Team (Late st Contact Info) Description 01/05/2024 2:30 PM EST Visit (TeleHealth) Hematology/Oncology at [address] [phone] 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
--- OUTSIDE RECORDS SUMMARY | 2023-12-29 18:19 | XMS_ITS | Encounter Summary ---
Author Organization [facility] Address [facility] [place] [address] Care Team Providers Care Clinical Research Specialist Name Role Phone None Primary Care Provider Unavailabl e Reason for Visit * Reason Comments Chemotherapy [id number] * Treatment/Therapy Plan Authorization (Routine) - Closed [...] AUC = 5 Cody Frazier MD [address] [place] [address] DR [place] [address] Cody Frazier MD [address] [place] [address] DR [place] [address] Referral ID Status Reason Start Date Expiration Date Visits Re quested Visits Authorized [id number] Closed 02/10/2022 2022 99 99 Encounter Details Date Type Department Care Team (Late st Contact Info) Description 04/29/2022 2:00 PM EDT Infusion Hematology Oncology at [address] [phone] Secondary malignant neoplasm of bone; Medication management; [...] to treat. LAB DATA: completed today at [facility] adequate for treatment IV ACCESS: PIV [...] EST TH Visit (TeleHealth) Hematology/Oncology at [address] [phone] Cody Frazier MD [facility] DR [place] [address] Bea Grimes APRN [address] [place] [address] DR HEMATOLOGY AND ONCOLOGY [place], [place] 47[address] documented as of this encounter Visit Diagnoses [...] mL/hr documented in this encounter Care Teams Clinical Research Specialist Relationship Specialty Start Date End Date None None PCP - General 04/03/22 04/24/23 documented as of this encounter
--- OUTSIDE RECORDS SUMMARY | 2023-12-29 18:19 | XMS_ITS | Encounter Summary ---
Author Organization [facility] Address [facility] [place] [id number] Care Team Providers Care Pigment Pumper Name Role Phone None Primary Care Provider [...] EST TH Visit (TeleHealth) Hematology/Oncology at [address] [phone] Cody Frazier MD [facility] DR [place] [address] Bea Grimes APRN [address] [place] [address] DR HEMATOLOGY AND ONCOLOGY [place], [place] [address] documented as of this encounter Visit Diagnoses Not on filedocumented in this encounter Care Teams Pigment Pumper Relationship Specialty Start Date End Date None None PCP - General 04/03/22 04/24/23 documented as of this encounter
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
--- OUTSIDE RECORDS SUMMARY | 2023-12-29 18:19 | XMS_ITS | Encounter Summary ---
Author Organization [facility] Address [facility] [place] [address] Care Team Providers Care Orthodontic Assistant Name Role Phone None Primary Care [...] (Paraplatin) AUC = 5 Cody Frazier MD [address] [place] [address] DR HEMATOLOGY [place] [address] Cody Frazier MD [address] [place] [address] DR HEMATOLOGY [place] [address] Referral ID Status Reason Start Date Expiration Date Visits Re quested Visits Authorized [id number] Closed 02/10/2022 2022 99 99 Encounter Details Date Type Department Care Team (Late Contact Info) Description 04/08/2022 2:00 PM EST Infusion Hematology Oncology at [address] [phone] Social History Tobacco Use Types Packs/Day Years [...] EST TH Visit (TeleHealth) Hematology/Oncology at [address] [phone] Cody Frazier MD [facility] DR HEMATOLOGY AND ONCOLOGY [place], [place] [address] Bea Grimes APRN [address] [place] [address] DR HEMATOLOGY AND ONCOLOGY [place], [place] [id number] documented as of this encounter Visit Diagnoses Not on filedocumented in this encounter Care Teams Orthodontic Assistant Relationship Specialty Start Date End Date None None PCP - General 04/03/22 04/24/23 documented as of this encounter
--- OUTSIDE RECORDS SUMMARY | 2023-12-29 18:19 | XMS_ITS | Encounter Summary ---
Author Organization [facility] Address [facility] [place] [address] Care Team Providers Care Pv Design Engineer Name Role Phone Arias Mast DNP Primary Care Provider [phone] Encounter Details Date Type Department Care Team (Late st Contact Info) Description 03/15/2022 Orders Only [place] [address] Cody Frazier MD [facility] DR [place] [address] Social History Tobacco Use Types Packs/Day Years [...] Visit (TeleHealth) Hematology/Oncology at [address] [phone] Cody Frazier MD [facility] DR [place] [address] Bea Grimes APRN [address] [place] [address] [place] [address] documented as of this encounter Visit Diagnoses Not on filedocumented in this encounter Care Teams Pv Design Engineer Relationship Specialty Start Date End Date Arias Mast DNP PCP - General Family Medicine 02/14/21 04/02/22 documented as of this encounter
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
--- OUTSIDE RECORDS SUMMARY | 2023-12-29 18:19 | XMS_ITS | Encounter Summary ---
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; Bullous emphysema Social History Tobacco Use Types Packs/Day Years Used Date Smoking Tobacco: Some Days Cigarettes 0.3 42.9 Started: 1981 Smokeless Tobacco: Never Tobacco Cessation:Ready [...] NAME: Alexis Pelayo : 1970 MEDICAL RECORD: [id number] DATE OF SERVICE: 04/03/2022 PRIMARY CARE PHYSICIAN: [...] Section of Pulmonary & Critical Care Pager: [phone] documented in this encounter Plan of Treatment Upcoming Encounters Date Type Department Care Team (Late st Contact Info) Description 01/05/2024 2:30 PM EST TH Visit (TeleHealth) Hematology/Oncology at [address] [phone] Cody Frazier MD [facility] DR HEMATOLOGY [place] [address] Bea Grimes APRN [address] [place] [address] DR [place] [address] documented as of this encounter Visit Diagnoses Diagnosis Abscess of upper lobe of left lung without pneumonia 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
--- OUTSIDE RECORDS SUMMARY | 2023-12-29 18:20 | XMS_ITS | Encounter Summary ---
Author Organization [facility] Address [facility] [place] [address] Care Team Providers Care Care Asst Name Role Phone Arias Mast DNP Primary Care Provider [phone] Encounter Details Date Type Department Care Team [...] EST TH Visit (TeleHealth) Hematology/Oncology at [address] [phone] Cody Frazier MD [facility] DR HEMATOLOGY [place] [address] Bea Grimes APRN [address] [place] [address] DR HEMATOLOGY AND ONCOLOGY [place], [place] [address] documented as of this encounter Visit Diagnoses Not on filedocumented in this encounter Care Teams Care Asst Relationship Specialty Start Date End Date Arias Mast DNP PCP - General Family Medicine 02/14/21 04/02/22 documented as of this encounter
--- OUTSIDE RECORDS SUMMARY | 2023-12-29 18:20 | XMS_ITS | Encounter Summary ---
Author Organization [facility] Address [facility] [place] [address] Care Team Providers Care Director Of Casino Name Role Phone Arias Mast DNP Primary Care Provider [phone] Encounter Details Date Type Department Care Team (Late st Contact Info) Description 02/26/2022 Orders Only Hematology [place] [address] Cody Frazier MD [facility] DR [place] [address] Social History Tobacco Use Types Packs/Day Years [...] PM EST TH Visit (TeleHealth) Hematology/Oncology at [address] [phone] Cody Frazier MD [facility] DR [place] [address] Bea Grimes APRN [address] [place] [address] DR HEMATOLOGY [place] [address] documented as of this encounter Visit Diagnoses Not on filedocumented in this encounter Care Teams Director Of Casino Relationship Specialty Start Date End Date Arias Mast DNP PCP - General Family Medicine 02/14/21 04/02/22 documented as of this encounter
--- OUTSIDE RECORDS SUMMARY | 2023-12-29 18:20 | XMS_ITS | Encounter Summary ---
Author Organization [facility] Address [facility] [place] [address] Care Team Providers Care Engineer Chief Name Role Phone None Primary Care Provider Unavailabl e Encounter Details Date Type Department Care Team (Late st Contact Info) Description 12/26/2021 Notes Only Hematology/Oncology at [address] [phone] Lorraine Huerta, [facility] OFFICE OF CARE MANAGEMENT Social History [...] needs at home. He is using the [employer] bus for transportation which he likes. Alexis did not identify any new needs today. Offered support. Reminded Alexis of [employer] availability and contact information. Will follow as indicated. Brief assessment Supportive Counseling documented in this encounter Plan of Treatment Upcoming Encounters Date Type Department Care Team (Late st Contact Info) Description 01/05/2024 2:30 PM EST TH Visit (TeleHealth) Hematology/Oncology at [address] [phone] Cody Frazier MD [facility] DR HEMATOLOGY [place] [address] Bea Grimes APRN [address] [place] [address] DR HEMATOLOGY AND ONCOLOGY [place], [place] [address] documented as of this encounter Visit Diagnoses Not on filedocumented in this encounter Care Teams Engineer Chief Relationship Specialty Start Date End Date None None PCP - General 04/03/22 04/24/23 documented as of this encounter
--- OUTSIDE RECORDS SUMMARY | 2023-12-29 18:20 | XMS_ITS | Encounter Summary ---
Author Organization [facility] Address [facility] [place] [address] Care Team Providers Care Horticulture Instructor Name Role Phone Arias Mast DNP Primary Care Provider [phone] Reason for Visit * Reason Onset Date Comments Other 01/16/2022 transportation Encounter Details Date Type Department Care Team (Late st Contact Info) Description 01/16/2022 Telephone Hematology/Oncology at [address] [phone] Lorraine Huerta, TRANSITION MANAGER OFFICE OF CARE MANAGEMENT Other (transportation) Social [...] for his pulmonology appointment on 01-23-22 at [facility]. TCpt re this. Messaged RCT with the following - 01-23-22 [facility] 5c @ 4:00 Home @ 5:00. Pt is agreeable to this plan. Care Coordination Transportation resources documented in this encounter Plan of Treatment Upcoming Encounters Date Type Department Care Team (Late st Contact Info) Description 01/05/2024 2:30 PM EST TH Visit (TeleHealth) Hematology/Oncology at [address] [phone] Cody Frazier MD [facility] DR [place] [address] Bea Grimes APRN [address] [place] [address] DR HEMATOLOGY AND ONCOLOGY [place], [place] [address] documented as of this encounter Visit Diagnoses Not on filedocumented in this encounter Care Teams Horticulture Instructor Relationship Specialty Start Date End Date Arias Mast DNP PCP - General Family Medicine 02/14/21 04/02/22 documented as of this encounter
--- OUTSIDE RECORDS SUMMARY | 2023-12-29 18:20 | XMS_ITS | Encounter Summary ---
Author Organization [facility] Address [facility] [place] [address] Care Team Providers Care Environmental Protection Specialist Name Role Phone Arias Mast DNP Primary Care Provider [phone] Reason for Visit * Reason Comments Chemotherapy [...] AUC = 5 Cody Frazier MD [address] [place] [address] DR [place] [address] Cody Frazier MD [address] [place] [address] [place] [address] Referral ID Status Reason Start Date Expiration Date Visits Re quested Visits Authorized [id number] Closed 02/10/2022 2022 99 99 Encounter Details Date Type Department Care Team (Late st Contact Info) Description 11/12/2021 11:00 AM EDT Infusion Hematology Oncology at [address] [phone] Secondary malignant neoplasm of bone; [...] EST TH Visit (TeleHealth) Hematology/Oncology at [address] [phone] Cody Frazier MD [facility] DR [place] [address] Bea Grimes SALES REPRESENTATIVE [employer] [address] [place] [address] DR HEMATOLOGY AND ONCOLOGY [place], [place] [id number] documented as of this encounter Visit Diagnoses [...] mL/hr documented in this encounter Care Teams Environmental Protection Specialist Relationship Specialty Start Date End Date Arias Mast DNP PCP - General Family Medicine 02/14/21 04/02/22 documented as of this encounter
--- OUTSIDE RECORDS SUMMARY | 2023-12-29 18:20 | XMS_ITS | Encounter Summary ---
Author Organization [facility] Address [facility] [place] [address] Care Team Providers Care Founder And Chief Technical Officer Name Role Phone Arias Mast DNP Primary Care Provider [phone] Reason for Visit * Reason Onset Date Comments Medication Refill 01/29/2022 MSIR Encounter Details Date Type Department Care Team (Late st Contact Info) Description 01/29/2022 Refill Hematology [place] [phone] Cody Frazier MD [facility] DR [place]EMATOLOGY [place] [address] Secondary malignant neoplasm of bone; Malignant neoplasm [...] PM EST TH Visit (TeleHealth) Hematology/Oncology at [address] [phone] Cody Frazier MD [facility] DR [place] [address] Bea Grimes APRN [address] [place] [address] DR HEMATOLOGY AND ONCOLOGY [place], [place] [address] documented as of this encounter Visit Diagnoses Diagnosis 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
--- OUTSIDE RECORDS SUMMARY | 2023-12-29 18:20 | XMS_ITS | Encounter Summary ---
Author Organization [facility] Address [facility] [place] [address] Care Team Providers Care Automotive Manufacturer Name Role Phone Arias Mast DNP Primary Care Provider [phone] Reason for Visit * Reason Onset Date Comments Medication Refill 10/30/2021 MSIR Encounter Details Date Type Department Care Team (Late st Contact Info) Description 10/30/2021 Refill Hematology [place] [phone] Cody Frazier MD [facility] [place] [address] Secondary malignant neoplasm of bone; Malignant neoplasm [...] Regarding: morphine IR (MSIR) 15 mg Tablet [[id number]] Alexis called to get a refill on his morphine IR (MSIR) 15 mg Tablet [[id number]]. He says he meant to call earlier because he only has a few days left. Can you please send this out to Gwen in [facility]? 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
--- OUTSIDE RECORDS SUMMARY | 2023-12-29 18:20 | XMS_ITS | Encounter Summary ---
Author Organization [facility] Address [facility] [place] [address] Care Team Providers Care Data Warehouse Consultant Name Role Phone Arias Mast DNP Primary Care Provider [phone] Encounter Details Date Type Department Care Team (Late st Contact Info) Description 01/22/2022 Telephone Pulmonology at [facility] [place] [phone] Yolande Ricks, CT Social History Tobacco Use [...] EST TH Visit (TeleHealth) Hematology/Oncology at [address] [phone] Cody Frazier MD [facility] DR [place] [address] Bea Grimes APRN [address] [place] [address] DR HEMATOLOGY AND ONCOLOGY [place], [place] [id number] documented as of this encounter Visit Diagnoses Not on filedocumented in this encounter Care Teams Data Warehouse Consultant Relationship Specialty Start Date End Date Arias Mast DNP PCP - General Family Medicine 02/14/21 04/02/22 documented as of this encounter
--- OUTSIDE RECORDS SUMMARY | 2023-12-29 18:20 | XMS_ITS | Encounter Summary ---
Author Organization [facility] Address [facility] [place] [address] Care Team Providers Care Transplant Immunologist Name Role Phone Arias Mast DNP Primary Care Provider [phone] Reason for Visit * Reason Onset Date Comments Other 01/15/2022 transportation Encounter Details Date Type Department Care Team (Late st Contact Info) Description 01/15/2022 Telephone Hematology/Oncology at [address] [phone] Lorraine Huerta, STAFF ANALYST OFFICE OF CARE MANAGEMENT Other (transportation) Social [...] RCT to set up Alexis's ride to [facility] on Friday01-18-22 for a PET scan per Ashanti Lira, Clinical Structural Welder. Requested ride as follows - Friday01-18-22 [facility] - Radiology @ 8:30 am Home @ 11 am TC Alexis to inform him of this plan. Care Coordination Transportation resources documented in this encounter Plan of Treatment Upcoming Encounters Date Type Department Care Team (Late st Contact Info) Description 01/05/2024 2:30 PM EST TH Visit (TeleHealth) Hematology/Oncology at [address] [phone] Cody Frazier MD [facility] DR HEMATOLOGY [place] [address] Bea Grimes APRN [address] [place] [address] DR HEMATOLOGY AND ONCOLOGY [place], [place] [id number] documented as of this encounter Visit Diagnoses Not on filedocumented in this encounter Care Teams Transplant Immunologist Relationship Specialty Start Date End Date Arias Mast DNP PCP - General Family Medicine 02/14/21 04/02/22 documented as of this encounter
--- OUTSIDE RECORDS SUMMARY | 2023-12-29 18:20 | XMS_ITS | Encounter Summary ---
Author Organization [facility] Address [facility] [place] [address] Care Team Providers Care Laboratory Assistant Name Role Phone Arias Mast DNP Primary Care Provider [phone] Reason for Visit * Reason Comments Chemotherapy [...] AUC = 5 Cody Frazier MD [address] [place] [address] DR HEMATOLOGY [place] [address] Cody Frazier MD [address] [place] [address] DR HEMATOLOGY [place] [address] Referral ID Status Reason Start Date Expiration Date Visits Re quested Visits Authorized [id number] Closed 02/10/2022 2022 99 99 Encounter Details Date Type Department Care Team (Late st Contact Info) Description 12/26/2021 1:30 PM EST Infusion Hematology Oncology at [address] [phone] Secondary malignant neoplasm of bone; [...] treatment today. OBJECTIVE: LAB DATA: completed at [facility] on 12/26 WNL for treatment IV ACCESS: [...] EST TH Visit (TeleHealth) Hematology/Oncology at [address] [phone] Cody Frazier MD [facility] DR [place] [address] Bea Grimes APRN [address] [place] [address] DR HEMATOLOGY AND ONCOLOGY [place], [place] [id number] documented as of this encounter Visit Diagnoses [...] mL/hr documented in this encounter Care Teams Laboratory Assistant Relationship Specialty Start Date End Date Arias Mast DNP PCP - General Family Medicine 02/14/21 04/02/22 documented as of this encounter
--- OUTSIDE RECORDS SUMMARY | 2023-12-29 18:20 | XMS_ITS | Encounter Summary ---
Author Organization [facility] Address [facility] [place] [address] Care Team Providers Care Circus Supervisor Name Role Phone Arias Mast DNP Primary Care Provider [phone] Reason for Visit * Reason Onset Date Comments Medication Refill 11/27/2021 Encounter Details Date Type Department Care Team (Late st Contact Info) Description 11/27/2021 Refill Hematology/Oncology at [address] [phone] Cody Frazier MD [facility] DR [place] [address] Secondary malignant neoplasm of bone; Malignant neoplasm [...] original note were not included. Ashanti Lira [facility] Hem Onc Nurse Alexis called in looking for his refill on his morphine IR (MSIR) 15 mg Tablet, please send to: [id number] - [place], [place] - [address] [place] [address] AT SEC OF [facility] & [address] [address] Phone: ??[phone] ??Fax: ??[phone] Best call back number [phone] Review of chart suggests that this is an appropriate refill request. Prescription pended and routedto Dr. Frazier for review and approval, if agreed. 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
--- OUTSIDE RECORDS SUMMARY | 2023-12-29 18:20 | XMS_ITS | Encounter Summary ---
Author Organization [facility] Address [facility] [place] [address] Care Team Providers Care Swage Toolsetter Name Role Phone Arias Mast DNP Primary Care Provider [phone] Encounter Details Date Type Department Care Team (Late st Contact Info) Description 12/24/2021 Orders Only Hematology/Oncology at [address] [phone] Bea Grimes APRN [address] [place] [address] DR [place] [address] Malignant neoplasm of lower lobe, [...] EST TH Visit (TeleHealth) Hematology/Oncology at [address] [phone] Cody Frazier MD [facility] DR [place] [address] Bea Grimes [address] HEMATOLOGY AND ONCOLOGY [place], [place] [address] documented as of this encounter Visit Diagnoses Diagnosis Malignant neoplasm of lower lobe, right bronchus or lung 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
--- OUTSIDE RECORDS SUMMARY | 2023-12-29 18:20 | XMS_ITS | Encounter Summary ---
Author Organization [facility] Address [facility] [place] [address] Care Team Providers Care Filter Tip Catcher Name Role Phone Arias Mast DNP Primary Care Provider [phone] Encounter Details Date Type Department Care Team (Late st Contact Info) Description 01/14/2022 Orders Only Hematology Oncology at [address] [phone] Deanne Nelson, RN Social History [...] EST TH Visit (TeleHealth) Hematology/Oncology at [address] [phone] Cody Frazier MD [facility] DR [place] [address] Bea Grimes APRN [address] [place] [address] DR HEMATOLOGY AND ONCOLOGY [place], [place] [address] documented as of this encounter Visit Diagnoses Not on filedocumented in this encounter Care Teams Filter Tip Catcher Relationship Specialty Start Date End Date Arias Mast DNP PCP - General Family Medicine 02/14/21 04/02/22 documented as of this encounter
--- OUTSIDE RECORDS SUMMARY | 2023-12-29 18:20 | XMS_ITS | Encounter Summary ---
Author Organization [facility] Address [facility] [place] [address] Care Team Providers Care Paper Sales Representative Name Role Phone Arias Mast DNP Primary Care Provider [phone] Reason for Referral * Diagnostic Test (Routine) - Closed Specialty Diagnoses / Procedures Referred By Contac t Referred To Contact Radiology Diagnoses Malignant neoplasm of lower lobe, right bronchus or lung Secondary malignant neoplasm of bone Neoplasm related pain Procedures NM [place] PET CT Skull Base to Mid-thigh Cody Frazier MD [facility] DR [place]Y [place] [address] [place] [address] Referral ID Status Reason Start Date Expiration Date V isits Requested Visits Authorized [id number] Closed Specialty Service Requested 01/14/2022 07/16/2023 1 [...] [facility] DR [place] [address] [place] [address] Referral ID Status Reason Start Date Expiration Date V isits Requested Visits Authorized [id number] Closed Specialty Service Requested 01/14/2022 07/16/2023 1 1 Encounter Details Date Type Department Care Team (Late st Contact Info) Description 01/18/2022 10:00 AM EST - 01/18/2022 11:59 PM [facility] Hospital Encounter Nuclear Medicine at [facility] [place] [address] Cody Frazier MD [facility] DR [place]EMATOLOGY [place] [address] Malignant neoplasm of lower lobe, right bronchus [...] PM EST TH Visit (TeleHealth) Hematology/Oncology at [address] [phone] Cody Frazier MD [facility] DR HEMATOLOGY AND [facility]COLOGY [facility] [place] [address] Bea Grimes APRN [address] [place] [address] DR HEMATOLOGY AND ONCOLOGY [place], [place] [address] documented as of this encounter Procedures Procedure [...] who have questions please contact the health manager wound care that requested your imaging first. ? Narrative 01/21/2022 4:34 PM EST EXAMINATION: [facility] PET CT SKULL BASE TO MID-THIGH CLINICAL HISTORY: Non-small cell lung cancer, assess treatment response 51 yo with locally advanced NSCLC s/p radiation and then chemoimmunotherapy. Restaging exam TECHNIQUE: Following IV injection of 19-oyaujq-3-deoxyglucose (FDG) a standard uptake of approximately 60 [...] Note Zev Mcdowell MD - 01/21/2022 EXAMINATION: [facility] PET CT SKULL BASE TO MID-THIGH CLINICAL HISTORY: Non-small cell lung cancer, assess treatment response 51 yo with locally advanced NSCLC s/p radiation and thenchemoimmunotherapy. Restaging exam TECHNIQUE: Following IV injection of 75-zcvwxb-6-deoxyglucose (FDG) astandard uptake of approximately 60 minutes, [...] patients who have questions please contactthe health manager wound care that requested your imaging first. Cody Frazier MD [facility] PET ORDERABLES documented in this encounter Visit [...] mCi documented in this encounter Care Teams Paper Sales Representative Relationship Specialty Start Date End Date Arias Mast DNP PCP - General Family Medicine 02/14/21 2 documented as of this encounter
--- OUTSIDE RECORDS SUMMARY | 2023-12-29 18:20 | XMS_ITS | Encounter Summary ---
Author Organization [facility] Address [facility] [place] [address] Care Team Providers Care Traffic Rate Clerk Name Role Phone Arias Mast DNP Primary Care Provider [phone] Encounter Details Date Type Department Care Team (Late st Contact Info) Description 11/12/2021 10:30 AM EDT Office Visit Hematology/Oncology at [address] [phone] Cody Frazier MD [facility] DR HEMATOLOGY [place] [address] Teena Nieto APRN [facility] DR HEMATOLOGY [place] [address] Malignant neoplasm of lower lobe, right bronchus [...] were not included. Hematology & Medical Oncology [address] [address] Alexis Pelayo is being seen for the evaluation of lung cancer. Assessment & Plan: Alexis Pelayo is a 51 y.o. male patient with a past medical history significant for COPD, a 30-ukba-qqbq smoking history, chronic migraine headaches diagnosed with [...] MD, MS 11/12/2021 Medical Oncology & Hematology [facility] CC: HPI/Interval History/Subjective: Last seen [...] Social History/Support Network: Home situation: From the [place] originally. Came up here because of family Has a sister Kristine Brantley who lives i[place] who is his DPOA. 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 Tobacco use: Down to a few [...] a past medical history significant forCOPD, a 34-dnpl-ayft smoking history, chronic migraine headaches who was [...] 1.8 total bilirubin 0.1 AST 11 ALK [place] 84 ALT 18 albumin 3.6 up from [...] EST TH Visit (TeleHealth) Hematology/Oncology at [address] [phone] Cody Frazier MD [facility] DR HEMATOLOGY [place] [address] Bea Grimes APRN [address] [place] [address] DR HEMATOLOGY [place] [address] documented as of this encounter Visit Diagnoses Diagnosis Malignant neoplasm of lower lobe, right bronchus or lung 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
--- OUTSIDE RECORDS SUMMARY | 2023-12-29 18:20 | XMS_ITS | Encounter Summary ---
Author Organization [facility] Address [facility] [place] [address] Care Team Providers Care Multimedia Services Coordinator Name Role Phone Arias Mast DNP Primary Care Provider [phone] Encounter Details Date Type Department Care Team (Late st Contact Info) Description 01/23/2022 4:20 PM EST Office Visit Pulmonology at [facility] [place] [phone] Román Valdivia MD [facility] [place] [address] Primary malignant neoplasm of right lung metastatic [...] NAME: Alexis Pelayo : 1970 MEDICAL RECORD: [id number] DATE OF SERVICE: 01/23/2022 PRIMARY CARE PHYSICIAN: Arias Mast, LABEL CODER 06/19 Mr. 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
--- OUTSIDE RECORDS SUMMARY | 2023-12-29 18:20 | XMS_ITS | Encounter Summary ---
Author Organization [facility] Address [facility] [place] [address] Care Team Providers Care Soft Work Cigar Machine Operator Name Role Phone Arias Mast DNP Primary Care Provider [phone] Encounter Details Date Type Department Care Team (Late st Contact Info) Description 02/18/2022 10:30 AM EST Office Visit Hematology/Oncology at [address] [phone] Cody Frazier MD [facility] DR HEMATOLOGY [place] [address] Bea Grimes APRN [address] [place] [address] DR HEMATOLOGY [place] [address] Malignant neoplasm of lower lobe, [...] were not included. Hematology & Medical Oncology [address] [address] Alexis Pelayo is being seen for the evaluation of lung cancer. Assessment & Plan: Alexis Pelayo is a 51 y.o. male patient with a past medical history significant for COPD, a 08-uuvu-fpgu smoking history, chronic migraine headaches diagnosed with [...] have dry mouth/ thirst issues. Bea Grimes, AIR CARGO GROUND CREW SUPERVISOR 02/18/2022 Medical Oncology & Hematology 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 Came up here because of family Has a sister Kristine Brantley who lives [place] who is his DPOA. 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
--- OUTSIDE RECORDS SUMMARY | 2023-12-29 18:20 | XMS_ITS | Encounter Summary ---
Author Organization [facility] Address [facility] [place] [address] Care Team Providers Care Pharmaceutical Specialty Representative Name Role Phone Arias Mast DNP Primary Care Provider [phone] Encounter Details Date Type Department Care Team (Late st Contact Info) Description 11/09/2021 Orders Only Hematology [place] [address] Cody Frazier MD [facility] [place] [address] Malignant neoplasm of lower lobe, right bronchus [...] EST TH Visit (TeleHealth) Hematology/Oncology at [address] [phone] Cody Frazier MD [facility] [place] [address] Bea Grimes APRN [address] [place] [address] DR [place] [address] documented as of this encounter Visit Diagnoses Diagnosis Malignant neoplasm of lower lobe, right bronchus or lung documented in this encounter Care Teams Pharmaceutical Specialty Representative Relationship Specialty Start Date End Date Arias Mast DNP PCP - General Family Medicine 02/14/21 04/02/22 documented as of this encounter
--- OUTSIDE RECORDS SUMMARY | 2023-12-29 18:20 | XMS_ITS | Encounter Summary ---
Author Organization [facility] Address [facility] [place] [address] Care Team Providers Care Control Cabinet Assembler Name Role Phone Arias Mast DNP Primary Care Provider [phone] Reason for Visit * Reason Onset Date Comments Medication Refill 02/13/2022 Long acting mo rphine Encounter Details Date Type Department Care Team (Late st Contact Info) Description 02/13/2022 Refill Hematology/Oncology at [address] [phone] Cody Frazier MD [facility] DR [place] [address] Malignant neoplasm of lower lobe, right bronchus [...] 2:30 PM EST Visit (TeleHealth) Hematology/Oncology at [address] [phone] Cody Frazier MD [facility] DR [place] [address] Bea Grimes APRN [address] [place] [address] DR HEMATOLOGY [place] [address] documented as of this encounter Visit Diagnoses Diagnosis Malignant neoplasm of lower lobe, right bronchus or lung 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
--- OUTSIDE RECORDS SUMMARY | 2023-12-29 18:20 | XMS_ITS | Encounter Summary ---
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 He did not identify any new needs today. Offeredsupport. Reminded pt of SW availability and contact information. Will continue to follow for support and resources. Brief assessment Supportive Counseling documented in this encounter Plan of Treatment Upcoming Encounters Date Type Department Care Team (Late st Contact Info) Description 01/05/2024 2:30 PM EST TH Visit (TeleHealth) Hematology/Oncology at [address] [phone] Cody Frazier MD [facility] DR HEMATOLOGY [place] [address] Bea Grimes APRN [address] [place] [address] DR HEMATOLOGY AND ONCOLOGY [place], [place] [id number] documented as of this encounter Visit Diagnoses Not on filedocumented in this encounter Care Teams Ceo Relationship Specialty Start Date End Date Arias Mast DNP PCP - General Family Medicine 02/14/21 04/02/22 documented as of this encounter
--- OUTSIDE RECORDS SUMMARY | 2023-12-29 18:20 | XMS_ITS | Encounter Summary ---
Author Organization [facility] Address [facility] [place] [address] Care Team Providers Care Technical Healthcare Consultant Name Role Phone Arias Mast DNP Primary Care Provider [phone] Reason for Visit * Reason Onset Date Comments Prior Authorization 02/13/2022 MS ER Encounter Details Date Type Department Care Team (Late st Contact Info) Description 02/13/2022 Telephone Hematology/Oncology at [address] [phone] Bandar Dillard RN Prior Authorization [...] Dillard RN - 02/13/2022 12:30 PM EST PA for [place] signed and faxed to [facility], , fax confirmed. documented in this encounter Plan of Treatment Upcoming Encounters Date Type Department Care Team (Late st Contact Info) Description 01/05/2024 2:30 PM EST TH Visit (TeleHealth) Hematology/Oncology at [address] [phone] Cody Frazier MD [facility] DR [place] [address] Bea Grimes APRN [address] [place] [address] [place] [address] documented as of this encounter Visit Diagnoses Not on filedocumented in this encounter Care Teams Technical Healthcare Consultant Relationship Specialty Start Date End Date Arias Mast DNP PCP - General Family Medicine 02/14/21 04/02/22 documented as of this encounter
--- OUTSIDE RECORDS SUMMARY | 2023-12-29 18:20 | XMS_ITS | Encounter Summary ---
Author Organization [facility] Address [facility] [place] [address] Care Team Providers Care Horticulture Supervisor Name Role Phone Arias Mast DNP Primary Care Provider [phone] Reason for Visit * Reason Onset Date Comments Medication Refill 12/31/2021 MS IR Encounter Details Date Type Department Care Team (Late st Contact Info) Description 12/31/2021 Refill Hematology/Oncology at [address] [phone] Cody Frazier MD [facility] HEMATOLOGY [place] [address] Secondary malignant neoplasm of bone; Malignant neoplasm [...] Regarding: morphine IR (MSIR) 15 mg Tablet [[id number]] Alexis forgot to give us a call earlier but is out of his morphine IR (MSIR) 15 mg Tablet [[id number]]. He said he still has the 30 mg so is not in an immediate browne to need it filled today but would appreciate one being sent out this week. He would like for it to be sent to [facility] in [facility]. 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
--- OUTSIDE RECORDS SUMMARY | 2023-12-29 18:20 | XMS_ITS | Encounter Summary ---
Author Organization [facility] Address [facility] [place] [address] Care Team Providers Care Home Manager Name Role Phone Arias Mast DNP Primary Care Provider [phone] Reason for Visit * Reason Onset Date Comments Medication Refill 02/28/2022 Encounter Details Date Type Department Care Team (Late st Contact Info) Description 02/28/2022 Refill Hematology/Oncology at [address] [phone] Bea Grimes APRN [address] [place] [address] DR [place]Y [place] [address] Secondary malignant neoplasm of bone; [...] EST TH Visit (TeleHealth) Hematology/Oncology at [address] [phone] Cody Frazier MD [facility] DR [place] [address] Bea Grimes APRN [address] [place] [address] DR [place]EMATOLOGY [place] [address] documented as of this encounter Visit Diagnoses Diagnosis 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
--- OUTSIDE RECORDS SUMMARY | 2023-12-29 18:20 | XMS_ITS | Encounter Summary ---
Author Organization [facility] Address [facility] [place] [address] Care Team Providers Care Director Of Property Management Name Role Phone Arias Mast DNP Primary Care Provider [phone] Reason for Visit * Reason Onset Date Comments Medication Refill 12/12/2021 Ms don Encounter Details Date Type Department Care Team (Late st Contact Info) Description 12/12/2021 Refill [place]ematology [place] [phone] Cody Frazier MD [facility] [place] [address] Secondary malignant neoplasm of bone; Chronic neck [...] would like to have it sent to: [id number] - [place], [place] - [address] [place] [address] AT [facility] & [address] [address] Phone: ??[phone] ??Fax: ??[phone] Best call back number [phone] documented in this encounter Plan of Treatment Upcoming Encounters Date Type Department Care Team (Late st Contact Info) Description 01/05/2024 2:30 PM EST TH Visit (TeleHealth) Hematology/Oncology at [address] [phone] Cody Frazier MD [facility] [place] [address] Bea Grimes APRN [address] [place] [address] DR HEMATOLOGY AND ONCOLOGY [place], [place] [id number] documented as of this encounter Visit Diagnoses Diagnosis 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
--- OUTSIDE RECORDS SUMMARY | 2023-12-29 18:20 | XMS_ITS | Encounter Summary ---
Author Organization [facility] Address [facility] [place] [address] Care Team Providers Care Meat Hostess Name Role Phone Arias Mast DNP Primary Care Provider [phone] Reason for Referral * Diagnostic Test (Routine) - Closed Specialty Diagnoses / Procedures Referred By Contshayla t Referred To Contact Radiology Diagnoses Abscess of upper lobe of left lung without pneumonia Procedures CT Chest wo Contrast (Generic) Román Valdivia MD [facility] [place] [address] [facility] [place] [address] Referral ID Status Reason Start Date Expiration Date V isits Requested Visits Authorized [id number] Closed Specialty Service Requested 02/12/2022 08/13/2023 1 1 Encounter Details Date Type Department Care Team ([facility] st Contact Info) Description 02/12/2022 Telephone [place] [address] Román Valdivia MD [facility] [place] [address] Social History Tobacco Use Types Packs/Day Years [...] EST TH Visit (TeleHealth) Hematology/Oncology at [address] [phone] Cody Frazier MD [facility] DR [place] [address] Bea Grimes, EMPLOYEE DEVELOPMENT MANAGER [address] [place] [address] [place] [address] documented as of this encounter Results * [...] have questions please contact the health home care liaison that requested your imaging first. ? Narrative [...] rib. There is an old fracture of [id number] rib. Lack of other relevant history suggests this is an old traumaticlesion. Thank you for letting us participate in the care of this patient. If youare a health care provider and have any questions regarding this report,please contact the number below. For patients who have questions please contactthe health home care liaison that requested your imaging first. Román Valdivia MD IMG CT ORDERABL ES documented in this encounter Visit Diagnoses Diagnosis Abscess of upper lobe of left lung without pneumonia Abscess of upper lobe of left lung without pneumonia documented in this encounter Care Teams Meat Hostess Relationship Specialty Start Date End Date Arias Mast DNP PCP - General Family Medicine 02/14/21 04/02/22 documented as of this encounter
--- OUTSIDE RECORDS SUMMARY | 2023-12-29 18:20 | XMS_ITS | Encounter Summary ---
Author Organization [facility] Address [facility] [place] [address] Care Team Providers Care Grades 9 12 Tutor Name Role Phone Arias Mast DNP Primary Care Provider [phone] Encounter Details Date Type Department Care Team (Late st Contact Info) Description 01/14/2022 Notes Only Hematology/Oncology at [address] [phone] Lorraine Huerta, DUCT LAYER HELPER OFFICE OF CARE MANAGEMENT Social History Tobacco [...] he will be having a appointment/visit at [facility] and will need help setting up [facility] transportation. SINGH asked to be notified when appointment is and will set up ride through [facility]. Alexis is agreeable to this plan. Care Coordination Transportation resources documented in this encounter Plan of Treatment Upcoming Encounters Date Type Department Care Team (Late st Contact Info) Description 01/05/2024 2:30 PM EST Visit (TeleHealth) Hematology/Oncology at [address] [phone] Cody Frazier MD [facility] [place] [address] Bea Grimes APRN [address] [place] [address] DR [place] [address] documented as of this encounter Visit Diagnoses Not on filedocumented in this encounter Care Teams Grades 9 12 Tutor Relationship Specialty Start Date End Date Arias Mast DNP PCP - General Family Medicine 02/14/21 04/02/22 documented as of this encounter
--- OUTSIDE RECORDS SUMMARY | 2023-12-29 18:20 | XMS_ITS | Encounter Summary ---
Author Organization [facility] Address [facility] [place] [address] Care Team Providers Care Field Account Manager Name Role Phone Arias Mast DNP Primary Care Provider [phone] Encounter Details Date Type Department Care Team (Late st Contact Info) Description 03/11/2022 12:00 PM EST Office Visit Hematology/Oncology at [address] [phone] Cody Frazier MD [facility] [place] [address] Bea Grimes APRN [address] [place] [address] DR [place]Y [place] [address] Malignant neoplasm of lower lobe, [...] were not included. Hematology & Medical Oncology [address] [address] Alexis Pelayo is being seen for the evaluation of lung cancer. Assessment & Plan: Alexis Pelayo is a 51 y.o. 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 Came up here because of family Has a sister Kristine Brantley who lives [place] who is his DPOA. 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 5. 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
--- OUTSIDE RECORDS SUMMARY | 2023-12-29 18:20 | XMS_ITS | Encounter Summary ---
Author Organization [facility] Address [facility] [place] [address] Care Team Providers Care Logistics Service Representative Name Role Phone Arias Mast DNP Primary Care Provider [phone] Reason for Visit * Reason Comments Chemotherapy [...] AUC = 5 Cody Frazier MD [address] [place] [address] [place] [address] Cody Frazier MD [address] [place] [address] [place] [address] Referral ID Status Reason Start Date Expiration Date Visits Re quested Visits Authorized [id number] Closed 02/10/2022 2022 99 99 Encounter Details Date Type Department Care Team (Late st Contact Info) Description 12/03/2021 11:00 AM EDT Infusion Hematology Oncology at [address] [phone] Secondary malignant neoplasm of bone; [...] PM EST TH Visit (TeleHealth) Hematology/Oncology at [address] [phone] Cody Frazier MD [facility] DR HEMATOLOGY [place] [address] Bea Grimes ECG TECHNICIAN [address] [place] [address] DR HEMATOLOGY AND ONCOLOGY [place], [place] [id number] documented as of this encounter Visit Diagnoses [...] mL/hr documented in this encounter Care Teams Logistics Service Representative Relationship Specialty Start Date End Date Arias Mast DNP PCP - General Family Medicine 02/14/21 04/02/22 documented as of this encounter
--- OUTSIDE RECORDS SUMMARY | 2023-12-29 18:20 | XMS_ITS | Encounter Summary ---
Author Organization [facility] Address [facility] [place] [address] Care Team Providers Care Broom Maker Name Role Phone Arias Mast DNP Primary Care Provider [phone] Reason for Visit * Reason Onset Date Comments Ankle Injury 12/24/2021 Encounter Details Date Type Department Care Team (Late st Contact Info) Description 12/24/2021 Telephone Hematology/Oncology at [address] [phone] Deanne Nelson RN Ankle Injury [...] EST TH Visit (TeleHealth) Hematology/Oncology at [address] [phone] Cody Frazier MD [facility] DR [place] [address] Bea Grimes APRN [address] [place] [address] DR HEMATOLOGY AND ONCOLOGY [place], [place] [phone] documented as of this encounter Visit Diagnoses Not on filedocumented in this encounter Care Teams Broom Maker Relationship Specialty Start Date End Date Arias Mast DNP PCP - General Family Medicine 02/14/21 04/02/22 documented as of this encounter
--- OUTSIDE RECORDS SUMMARY | 2023-12-29 18:20 | XMS_ITS | Encounter Summary ---
Author Organization [facility] Address [facility] [place] [address] Care Team Providers Care Service Desk Director Name Role Phone Arias Mast DNP Primary Care Provider [phone] Reason for Visit * Reason Comments Chemotherapy [...] (Paraplatin) AUC = 5 Cody Frazier MD [address] [place] [address] DR HEMATOLOGY [place] [address] Cody Frazier MD [address] [place] [address] DR HEMATOLOGY [place] [address] Referral ID Status Reason Start Date Expiration Date Visits Re quested Visits Authorized [id number] Closed 02/10/2022 2022 99 99 Encounter Details Date Type Department Care Team (Late st Contact Info) Description 03/11/2022 12:30 PM EST Infusion Hematology Oncology at [address] [phone] Secondary malignant neoplasm of bone; [...] to treat. LAB DATA: completed 03/11/22 at [facility] adequate for treatment IV ACCESS: PIV [...] EST TH Visit (TeleHealth) Hematology/Oncology at [address] [phone] Cody Frazier MD [facility] DR [place] [address] Bea Grimes APRN [address] [place] [address] DR HEMATOLOGY AND ONCOLOGY [place], [place] [id number] documented as of this encounter Visit Diagnoses [...] mL/hr documented in this encounter Care Teams Service Desk Director Relationship Specialty Start Date End Date Arias Mast DNP PCP - General Family Medicine 02/14/21 04/02/22 documented as of this encounter
--- OUTSIDE RECORDS SUMMARY | 2023-12-29 18:20 | XMS_ITS | Encounter Summary ---
Author Organization [facility] Address [facility] [place] [address] Care Team Providers Care Cork Insulation Setter Name Role Phone Arias Mast DNP Primary Care Provider [phone] Encounter Details Date Type Department Care Team (Late st Contact Info) Description 02/18/2022 Notes Only Hematology/Oncology at [address] [phone] Lorraine Huerta, CATERING TRUCK OPERATOR OFFICE OF CARE MANAGEMENT Social History [...] ride with RCT to his appointment at [facility] on 03-20-22 for a scan and provider follow up visit. Messaged RCT with this request. Care Coordination Transportation resources documented in this encounter Plan of Treatment Upcoming Encounters Date Type Department Care Team (Late st Contact Info) Description 01/05/2024 2:30 PM EST TH Visit (TeleHealth) Hematology/Oncology at [address] [phone] Cody Frazier MD [facility] DR [place] [address] Bea Grimes APRN [address] [place] [address] DR [place] [address] documented as of this encounter Visit Diagnoses Not on filedocumented in this encounter Care Teams Cork Insulation Setter Relationship Specialty Start Date End Date Arias Mast DNP PCP - General Family Medicine 02/14/21 04/02/22 documented as of this encounter
--- OUTSIDE RECORDS SUMMARY | 2023-12-29 18:20 | XMS_ITS | Encounter Summary ---
Author Organization [facility] Address [facility] [place] [address] Care Team Providers Care Repeat Photocomposing Machine Operator Name Role Phone Arias Mast DNP Primary Care Provider [phone] Reason for Visit * Reason Comments Chemotherapy [...] (Paraplatin) AUC = 5 Cody Frazier MD [address] [place] [address] DR [place] [address] Cody Frazier MD [address] [place] [address] DR [place] [address] Referral ID Status Reason Start Date Expiration Date Visits Re quested Visits Authorized [id number] Closed 02/10/2022 2022 99 99 Encounter Details Date Type Department Care Team (Late st Contact Info) Description 02/18/2022 11:00 AM EST Infusion Hematology Oncology at [address] [phone] Secondary malignant neoplasm of bone; [...] height, weight and BSA by Aydee Yung, RN and Staff Pharmacist(s). REACTIONS (DESCRIPTION, TIME, INTERVENTION AND EFFECTIVENESS) none ASSESSMENT: Alexis was awake, alert and tolerated treatment well. PIV discontinued prior to dismissal. PLAN: Return to clinic in three weeks. documented in this encounter Plan of Treatment Upcoming Encounters Date Type Department Care Team (Late st Contact Info) Description 01/05/2024 2:30 PM EST TH Visit (TeleHealth) Hematology/Oncology at [address] [phone] Cody Frazier MD [facility] DR [place] [address] Bea Grimes APRN [address] [place] [address] DR HEMATOLOGY AND ONCOLOGY [place], [place] [phone] documented as of this encounter Visit Diagnoses [...] CONTINUOUS, Starting on Fri02/18/22 at 1145, Until 02/18/22 at 1529, Select an infusion rate (in mL/hour) from dose field. Then define the total infusion duration: 2 hours. New Bag 02/18/2022 11:30 AM EST 500 mL/hr 500 mL/hr documented in this encounter Care Teams Repeat Photocomposing Machine Operator Relationship Specialty Start Date End Date Arias Mast DNP PCP - General Family Medicine 02/14/21 04/02/22 documented as of this encounter
--- OUTSIDE RECORDS SUMMARY | 2023-12-29 18:20 | XMS_ITS | Encounter Summary ---
Author Organization [facility] Address [facility] [place] [id number] Care Team Providers Care Chemical Pumper Name Role Phone Arias Mast DNP Primary Care Provider [phone] Encounter Details Date Type Department Care Team [...] PM EST TH Visit (TeleHealth) Hematology/Oncology at [address] [phone] Cody Frazier MD [facility] DR [place] [address] Bea Grimes APRN [address] [place] [address] DR HEMATOLOGY AND ONCOLOGY [place], [place] [address] documented as of this encounter Visit Diagnoses Not on filedocumented in this encounter Care Teams Chemical Pumper Relationship Specialty Start Date End Date Arias Mast DNP PCP - General Family Medicine 02/14/21 04/02/22 documented as of this encounter
--- OUTSIDE RECORDS SUMMARY | 2023-12-29 18:20 | XMS_ITS | Encounter Summary ---
Author Organization [facility] Address [facility] [place] [address] Care Team Providers Care Marine Welder Name Role Phone Arias Mast DNP Primary Care Provider [phone] Encounter Details Date Type Department Care Team (Late st Contact Info) Description 01/18/2022 Orders Only [place] [address] Cody Frazier MD [facility] DR HEMATOLOGY [place] [address] Social History Tobacco Use Types Packs/Day Years [...] EST TH Visit (TeleHealth) Hematology/Oncology at [address] [phone] Cody Frazier MD [facility] DR HEMATOLOGY [place] [address] Bea Grimes APRN [address] [place] [address] DR HEMATOLOGY [place] [address] documented as of this encounter Visit Diagnoses Not on filedocumented in this encounter Care Teams Marine Welder Relationship Specialty Start Date End Date Arias Mast DNP PCP - General Family Medicine 02/14/21 04/02/22 documented as of this encounter
--- OUTSIDE RECORDS SUMMARY | 2023-12-29 18:20 | XMS_ITS | Encounter Summary ---
Author Organization [facility] Address [facility] [place] [address] Care Team Providers Care Senior Android Developer Name Role Phone Arias Mast DNP Primary Care Provider [phone] Encounter Details Date Type Department Care Team (Late st Contact Info) Description 02/14/2022 Telephone Pulmonology at [facility] [place] [phone] Darcy Dominguez Social History Tobacco Use Types [...] EST TH Visit (TeleHealth) Hematology/Oncology at [address] [phone] Cody Frazier MD [facility] DR [place] [address] Bea Grimes APRN [address] [place] [address] DR HEMATOLOGY AND ONCOLOGY [place], [place] [id number] documented as of this encounter Visit Diagnoses Not on filedocumented in this encounter Care Teams Senior Android Developer Relationship Specialty Start Date End Date Arias Mast DNP PCP - General Family Medicine 02/14/21 04/02/22 documented as of this encounter
--- OUTSIDE RECORDS SUMMARY | 2023-12-29 18:20 | XMS_ITS | Encounter Summary ---
Author Organization [facility] Address [facility] [place] [address] Care Team Providers Care Order Administrator Name Role Phone Arias Mast DNP Primary Care Provider [phone] Encounter Details Date Type Department Care Team (Late st Contact Info) Description 01/09/2022 Ancillary Procedure Radiology Library at [facility] [place] [phone] [place] [address] Social History Tobacco Use Types [...] EST TH Visit (TeleHealth) Hematology/Oncology at [address] [phone] Cody Frazier MD [facility] DR [place]EMATOLOGY [place] [address] Bea Grimes APRN [address] [place] [address] DR [place] [address] documented as of this encounter Procedures Procedure Name Priority Date/Time Associated Diagnosis Comments FILM LIBRARY STORAGE ONLY CT CHEST Routine 01/09/2022 12:00 AM EST documented in this encounter Results * Film Library- Storage Only CT Chest (01/09/2022 12:00 AM EST) Narrative [facility] - 01/11/2022 8:36 AM EST This exam is auto-finalizing. It's purpose is for storage only. Bea Grimes APRN [facility] FILM LIBRARY ORDERABLES [place], [place] documented in this encounter Visit Diagnoses Not on filedocumented in this encounter Care Teams Order Administrator Relationship Specialty Start Date End Date Arias Mast DNP PCP - General Family Medicine 02/14/2123 documented as of this encounter
--- OUTSIDE RECORDS SUMMARY | 2023-12-29 18:20 | XMS_ITS | Encounter Summary ---
Author Organization [facility] Address [facility] [place] [id number] Care Team Providers Care Security Threat Analyst Name Role Phone Arias Mast DNP Primary Care Provider [phone] Encounter Details Date Type Department Care Team [...] EST TH Visit (TeleHealth) Hematology/Oncology at [address] [phone] Cody Frazier MD [facility] DR HEMATOLOGY [place] [address] Bea Grimes APRN [address] [place] [address] DR HEMATOLOGY AND ONCOLOGY [place], [place] [address] documented as of this encounter Visit Diagnoses Not on filedocumented in this encounter Care Teams Security Threat Analyst Relationship Specialty Start Date End Date Arias Mast DNP PCP - General Family Medicine 02/14/21 04/02/22 documented as of this encounter
--- OUTSIDE RECORDS SUMMARY | 2023-12-29 18:20 | XMS_ITS | Encounter Summary ---
Author Organization [facility] Address [facility] [place] [address] Care Team Providers Care Finished Cloth Examiner Name Role Phone Arias Mast DNP Primary Care Provider [phone] Reason for Visit * Reason Comments Chemotherapy [...] (Paraplatin) AUC = 5 Cody Frazier MD [address] [place] [address] DR HEMATOLOGY [place] [address] Cody Frazier MD [address] [place] [address] DR HEMATOLOGY [place] [address] Referral ID Status Reason Start Date Expiration Date Visits Re quested Visits Authorized [id number] Closed 02/10/2022 2022 99 99 Encounter Details Date Type Department Care Team (Late st Contact Info) Description 10/22/2021 11:00 AM EDT Infusion Hematology Oncology at [address] [phone] Secondary malignant neoplasm of bone; Medication management; [...] EST TH Visit (TeleHealth) Hematology/Oncology at [address] [phone] Cody Frazier MD [facility] DR [place] [address] Bea Grimes APRN [address] [place] [address] DR HEMATOLOGY AND ONCOLOGY [place], [place] [phone] documented as of this encounter Visit Diagnoses [...] mL/hr documented in this encounter Care Teams Finished Cloth Examiner Relationship Specialty Start Date End Date Arias Mast, ARYA PCP - General Family Medicine 02/14/21 2 documented as of this encounter
--- OUTSIDE RECORDS SUMMARY | 2023-12-29 18:20 | XMS_ITS | Encounter Summary ---
Author Organization [facility] Address [facility] [place] [address] Care Team Providers Care Director Trade Name Role Phone Arias Mast DNP Primary Care Provider [phone] Encounter Details Date Type Department Care Team [...] EST TH Visit (TeleHealth) Hematology/Oncology at [address] [phone] Cody Frazier MD [facility] DR [place] [address] Bea Grimes APRN [address] [place] [address] DR HEMATOLOGY AND ONCOLOGY [place], [place] [address] documented as of this encounter Visit Diagnoses Not on filedocumented in this encounter Care Teams Director Trade Relationship Specialty Start Date End Date Arias Mast DNP PCP - General Family Medicine 02/14/21 04/02/22 documented as of this encounter
--- OUTSIDE RECORDS SUMMARY | 2023-12-29 18:20 | XMS_ITS | Encounter Summary ---
Author Organization [facility] Address [facility] [place] [address] Care Team Providers Care Qualifications Examiner Name Role Phone Arias Mast DNP Primary Care Provider [phone] Encounter Details Date Type Department Care Team (Late st Contact Info) Description 12/03/2021 10:30 AM EDT Office Visit Hematology/Oncology at [address] [phone] [facility] DR HEMATOLOGY [place] [address] [facility] DR HEMATOLOGY [place] [address] Malignant neoplasm of lower lobe, right bronchus [...] were not included. Hematology & Medical Oncology [address] [address] Alexis Pelayo is being seen for the evaluation of lung cancer. Assessment & Plan: Alexis Pelayo is a 51 y.o. male patient with a past medical history significant for COPD, a 45-rngw-dvbg smoking history, chronic migraine headaches diagnosed with [...] MD, MS 12/03/2021 Medical Oncology & Hematology [facility] CC: HPI/Interval History/Subjective: Last seen 11/12/2021 Magnesium [...] Social History/Support Network: Home situation: From the [place] originally. Came up here because of family Has a sister Kristine Brantley who lives [place] who is his DPOA. 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 And also [...] a past medical history significant forCOPD, a 10-fvsa-mpgv smoking history, chronic migraine headaches who was [...] 1.8 total bilirubin 0.1 AST 11 ALK [place] 84 ALT 18 albumin 3.6 up from [...] EST TH Visit (TeleHealth) Hematology/Oncology at [address] [phone] 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
--- OUTSIDE RECORDS SUMMARY | 2023-12-29 18:20 | XMS_ITS | Encounter Summary ---
Author Organization [facility] Address [facility] [place] [address] Care Team Providers Care Stock Roller Name Role Phone Arias Mast DNP Primary Care Provider [phone] Encounter Details Date Type Department Care Team [...] EST TH Visit (TeleHealth) Hematology/Oncology at [address] [phone] Cody Frazier MD [facility] DR HEMATOLOGY [place] [address] Bea Grimes APRN [address] [place] [address] DR HEMATOLOGY AND ONCOLOGY [place], [place] [address] documented as of this encounter Visit Diagnoses Not on filedocumented in this encounter Care Teams Stock Roller Relationship Specialty Start Date End Date Arias Mast DNP PCP - General Family Medicine 02/14/21 04/02/22 documented as of this encounter
--- OUTSIDE RECORDS SUMMARY | 2023-12-29 18:20 | XMS_ITS | Encounter Summary ---
Author Organization [facility] Address [facility] [place] [address] Care Team Providers Care Co Founder And Cto Name Role Phone Arias Mast DNP Primary Care Provider [phone] Encounter Details Date Type Department Care Team (Late st Contact Info) Description 03/11/2022 Notes Only Hematology/Oncology at [address] [phone] Lorraine Huerta, LEGISLATIVE ADVOCATE OFFICE OF CARE MANAGEMENT Social History Tobacco [...] his infusion visit today. He asked that LEGISLATIVE ADVOCATE notify RCT about the change in his appointment at [facility] for a scan and provider visit. Messaged RCT with the following - 04-03-22 arrive at [facility] @ 12:45 pm for 3Z radiology for scan and a provider visit to follow; home @ 3pm. Alexis aware and agreeable to this plan. Transportation resources documented in this encounter Plan of Treatment Upcoming Encounters Date Type Department Care Team (Late st Contact Info) Description 01/05/2024 2:30 PM EST TH Visit (TeleHealth) Hematology/Oncology at [address] [phone] Cody Frazier MD [facility] DR [place] [address] Bea Grimes APRN [address] [place] [address] DR HEMATOLOGY AND ONCOLOGY [place], [place] [address] documented as of this encounter Visit Diagnoses Not on filedocumented in this encounter Care Teams Co Founder And Cto Relationship Specialty Start Date End Date Arias Mast DNP PCP - General Family Medicine 02/14/21 04/02/22 documented as of this encounter
--- OUTSIDE RECORDS SUMMARY | 2023-12-29 18:20 | XMS_ITS | Encounter Summary ---
Author Organization [facility] Address [facility] gavino HernandezJoseph V[place] [id number] Care Team Providers Care Automotive Welder Name Role Phone Arias Mast DNP Primary Care Provider [phone] Encounter Details Date Type Department Care Team [...] EST TH Visit (TeleHealth) Hematology/Oncology at [address] [phone] Cody Frazier MD [facility] DR HEMATOLOGY [place] [address] Bea Grimes APRN [address] [place] [address] DR HEMATOLOGY AND ONCOLOGY [place], [place] [address] documented as of this encounter Visit Diagnoses Not on filedocumented in this encounter Care Teams Automotive Welder Relationship Specialty Start Date End Date Arias Mast DNP PCP - General Family Medicine 02/14/21 04/02/22 documented as of this encounter
--- OUTSIDE RECORDS SUMMARY | 2023-12-29 18:20 | XMS_ITS | Encounter Summary ---
Author Organization [facility] Address [facility] [place] [address] Care Team Providers Care Insecticide Mixer Name Role Phone Arias Mast DNP Primary Care Provider [phone] Reason for Referral * Diagnostic Test (Routine) - Closed Specialty Diagnoses / Procedures Referred By Contac t Referred To Contact Radiology Diagnoses Malignant neoplasm of lower lobe, right bronchus or lung Secondary malignant neoplasm of bone Neoplasm related pain Procedures [place] PET CT Skull Base to Mid-thigh Cody rFazier MD [facility] DR [place] [address] [place] [address] Referral ID Status Reason Start Date Expiration Date V isits Requested Visits Authorized [id number] Closed Specialty Service Requested 01/14/2022 07/16/2023 1 1 Encounter Details Date Type Department Care Team (Late st Contact Info) Description 01/14/2022 1:30 PM EST Office Visit Hematology/Oncology at [address] [phone] Cody Frazier MD [facility] DR [place] [address] Bea Grimes APRN [address] [place] [address] DR HEMATOLOGY AND ONCOLOGY [place], [place] [address] Malignant neoplasm of lower lobe, right bronchus [...] were not included. Hematology & Medical Oncology [address] [address] Alexis Pelayo is being seen for the evaluation of lung cancer. Assessment & Plan: Alexis Pelayo is a 51 y.o. male patient with a past medical history significant for COPD, a 82-hupx-dheo smoking history, chronic migraine headaches diagnosed with [...] treatment - Referral to [place] pulmonary [place] [facility] [place] with PET SCAN - RTC [...] MD, MS 01/13/2022 Medical Oncology & Hematology [facility] [place] CC: HPI/Interval History/Subjective: [...] a sister Kristine Brantley who lives [place] who is his DPOA. 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 [...] a past medical history significant forCOPD, a 19-zdde-fywt smoking history, chronic migraine headaches who was [...] PM EST TH Visit (TeleHealth) Hematology/Oncology at [address] [phone] Cody Frazier MD [facility] DR [place] [address] Bea Grimes NUCLEAR WORKER TECHNICIAN [address] [place] [address] DR HEMATOLOGY AND ONCOLOGY [place], [place] [address] documented as of this encounter Results * [...] who have questions please contact the health palliative care physician that requested your imaging first. ? Electronically signed by: Zev Mcdowell MD, [facility] ([phone]), at 01/21/2022 4:34 PM Narrative 01/21/2022 4:34 PM EST EXAMINATION: [facility] PET CT SKULL BASE TO MID-THIGH CLINICAL HISTORY: Non-small cell lung cancer, assess treatment response 51 yo with locally advanced NSCLC s/p radiation and then chemoimmunotherapy. Restaging exam TECHNIQUE: Following IV injection of 39-sdootb-3-deoxyglucose (FDG) a standard uptake of approximately 60 [...] Note Zev Mcdowell MD - 01/21/2022 EXAMINATION: [facility] PET CT SKULL BASE TO MID-THIGH CLINICAL HISTORY: Non-small cell lung cancer, assess treatment response 51 yo with locally advanced NSCLC s/p radiation and thenchemoimmunotherapy. Restaging exam TECHNIQUE: Following IV injection of 07-mkpcdo-6-deoxyglucose (FDG) astandard uptake of approximately 60 minutes, [...] patients who have questions please contactthe health palliative care physician that requested your imaging first. Electronically signed by: Zev Mcdowell MD, [facility]([phone]), at 01/21/2022 4:34 PM Cody Frazier MD IMG PET ORDERABLES documented [...] (chronic) documented in this encounter Care Teams Insecticide Mixer Relationship Specialty Start Date End Date Arias Mast DNP PCP - General Family Medicine 02/14/21 04/02/22 documented as of this encounter
--- OUTSIDE RECORDS SUMMARY | 2023-12-29 18:20 | XMS_ITS | Encounter Summary ---
Author Organization [facility] Address [facility] [place] [address] Care Team Providers Care Turner Off Name Role Phone None Primary Care Provider Unavailabl e Encounter Details Date Type Department Care Team (Late st Contact Info) Description 12/03/2021 Notes Only Hematology/Oncology at [address] [phone] Lorraine Huerta, [facility] OFFICE OF CARE MANAGEMENT [...] managing his financial obligations. He takes the [email or web address] bus tohis appointments and takes a taxi home which is convenient for him. Alexis did not identify any new needs today. Offered support. Reminded Alexis of [employer] availability and contact information. Will continue to follow for support and resources. Brief assessment Supportive Counseling documented in this encounter Plan of Treatment Upcoming Encounters Date Type Department Care Team (Late st Contact Info) Description 01/05/2024 2:30 PM EST TH Visit (TeleHealth) Hematology/Oncology at [address] [phone] Cody Frazier MD [facility] DR HEMATOLOGY [place] [address] Bea Grimes APRN [address] [place] [address] DR [place] [address] documented as of this encounter Visit Diagnoses Not on filedocumented in this encounter Care Teams Turner Off Relationship Specialty Start Date End Date None None PCP - General 04/03/22 04/24/23 documented as of this encounter
--- OUTSIDE RECORDS SUMMARY | 2023-12-29 18:21 | XMS_ITS | Encounter Summary ---
Author Organization [facility] Address [facility] [place] [address] Care Team Providers Care Handling Tech Name Role Phone Arias Mast DNP Primary Care Provider [phone] Encounter Details Date Type Department Care Team (Late st Contact Info) Description 07/23/2021 Notes Only Hematology/Oncology at [address] [phone] Lorraine Huerta, BOTTOM BUFFER OFFICE OF CARE MANAGEMENT Social History Tobacco [...] His rides with [facility] are working well. BOTTOM BUFFER will continue to monitor his schedule to request rides. Pt indicated his landlord did receive funds from the [facility] [employer] for help towards his rent. Pt indicated he did not bring in the information for an application to the [facility] even though he needs funds to cover his rent. He indicated his sister will be visiting and she could help him with this. Pt is interested in applying for SSDI and gave him contact information to the [facility] office to start the process with a phone interview. Reminded pt of [employer] availability. Will continue to follow pt for support and resources. Brief assessment Supportive Counseling Financial resources Transportation resources documented in this encounter Plan of Treatment Upcoming Encounters Date Type Department Care Team (Late st Contact Info) Description 01/05/2024 2:30 PM EST TH Visit (TeleHealth) Hematology/Oncology at [address] [phone] Cody Frazier MD [facility] DR [place] [address] Bea Grimes APRN [address] [place] [address] DR HEMATOLOGY AND ONCOLOGY [place], [place] [id number] documented as of this encounter Visit Diagnoses Not on filedocumented in this encounter Care Teams Handling Tech Relationship Specialty Start Date End Date Arias Mast DNP PCP - General Family Medicine 02/14/21 2 documented as of this encounter
--- OUTSIDE RECORDS SUMMARY | 2023-12-29 18:21 | XMS_ITS | Encounter Summary ---
Author Organization [facility] Address [facility] [place] [address] Care Team Providers Care Military Science Teacher Name Role Phone Arias Mast DNP Primary Care Provider [phone] Encounter Details Date Type Department Care Team (Late st Contact Info) Description 09/03/2021 8:30 AM EDT Office Visit Hematology/Oncology at [address] [phone] Cody Frazier MD [facility] DR [place] [address] Teena Nieto APRN [facility] DR [place] [address] Malignant neoplasm of lower lobe, right bronchus [...] were not included. Hematology & Medical Oncology [address] [address] Alexis Pelayo is being seen for the evaluation of lung cancer. Assessment & Plan: Alexis Pelayo is a 50 y.o. male patient wiarcth a past medical history significant for COPD, a 16-mhau-aqin smoking history, chronic migraine headaches diagnosed with [...] 09/03/2021 Medical Oncology & Hematology [facility] CC: HPI/Interval History/Subjective: Last seen [...] Social History/Support Network: Home situation: From the [place] originally. Came up here because of family Has a sister Kristine Brantley who lives i[place] who is his DPOA. 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 Tobacco use: Down to a [...] a past medical history significant forCOPD, a 10-pffk-slyw smoking history, chronic migraine headaches who was [...] 1.8 total bilirubin 0.1 AST 11 ALK [place] 84 ALT 18 albumin 3.6 up from 2.9 at the start of treatment TSH 1.09 Free T4 1.15 White blood cell count 3.99 hemoglobin 8.8 [...] 2:30 PM EST Visit (TeleHealth) Hematology/Oncology at [address] [phone] Cody Frazier MD [facility] DR [place] [address] Bea Grimes APRN [address] [place] [address] DR [place] [address] documented as of this encounter Visit Diagnoses Diagnosis Malignant neoplasm of lower lobe, right bronchus or lung 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
--- OUTSIDE RECORDS SUMMARY | 2023-12-29 18:21 | XMS_ITS | Encounter Summary ---
Author Organization [facility] Address [facility] [place] [address] Care Team Providers Care Wildfire Prevention Specialist Name Role Phone Arias Mast DNP Primary Care Provider [phone] Reason for Visit * Reason Onset Date Comments Other 09/10/2021 Encounter Details Date Type Department Care Team (Late st Contact Info) Description 09/10/2021 Telephone Hematology/Oncology at [address] [phone] Trinity Thomson RN Other Social [...] PM EST TH Visit (TeleHealth) Hematology/Oncology at [address] [phone] Cody Frazier MD [facility] DR HEMATOLOGY [place] [address] Bea Grimes APRN [address] [place] [address] [place] [address] documented as of this encounter Visit Diagnoses Not on filedocumented in this encounter Care Teams Wildfire Prevention Specialist Relationship Specialty Start Date End Date Arias Mast DNP PCP - General Family Medicine 02/14/21 04/02/22 documented as of this encounter
--- OUTSIDE RECORDS SUMMARY | 2023-12-29 18:21 | XMS_ITS | Encounter Summary ---
Author Organization [facility] Address [facility] [place] [address] Care Team Providers Care Compression Molding Machine Operator Name Role Phone Arias Mast DNP Primary Care Provider [phone] Reason for Visit * Reason Onset Date Comments Other 07/24/2021 transportation Encounter Details Date Type Department Care Team (Late st Contact Info) Description 07/24/2021 Telephone Hematology/Oncology at [address] [phone] Lorraine Huerta, ANSWERING SERVICE OPERATOR OFFICE OF CARE MANAGEMENT Other (transportation) Social [...] Plan Review Transportation service provider: REJI @ [phone] Person coordinating transportation: Lorraine Huerta, @ [phone] Transportation request submitted to service provider: yes for 07-30-21 appts Reviewed/matched transportation request with appointment schedule: yes Patient has contact information to transportation provider: yes Actions taken today: none SW Interventions: Care Coordination Transportation resources documented in this encounter Plan of Treatment Upcoming Encounters Date Type Department Care Team (Late st Contact Info) Description 01/05/2024 2:30 PM EST TH Visit (TeleHealth) Hematology/Oncology at [address] [phone] Cody Frazier MD [facility] DR [place] [address] Bea Grimes APRN [address] [place] [address] DR HEMATOLOGY AND ONCOLOGY [place], [place] [address] documented as of this encounter Visit Diagnoses Not on filedocumented in this encounter Care Teams Compression Molding Machine Operator Relationship Specialty Start Date End Date Arias Mast DNP PCP - General Family Medicine 02/14/21 2 documented as of this encounter
--- OUTSIDE RECORDS SUMMARY | 2023-12-29 18:21 | XMS_ITS | Encounter Summary ---
Author Organization [facility] Address [facility] [place] [address] Care Team Providers Care Metal Coater Operator Name Role Phone Arias Mast DNP Primary Care Provider [phone] Reason for Visit * Reason Onset Date Comments Other 07/17/2021 transportation Encounter Details Date Type Department Care Team (Late st Contact Info) Description 07/17/2021 Telephone Hematology/Oncology at [address] [phone] Lorraine Huerta, BINDERY HELPER OFFICE OF CARE MANAGEMENT Other (transportation) [...] do it and then changed his mind. BINDERY HELPER agreed to schedule his first treatment and discuss with pt if he thinks he can manage after that. Touched base with Ashanti Lira, Clinical [place] re need to know pt's schedule for next week soride can be arranged. Care Coordination Transportation resources documented in this encounter Plan of Treatment Upcoming Encounters Date Type Department Care Team (Late st Contact Info) Description 01/05/2024 2:30 PM EST TH Visit (TeleHealth) Hematology/Oncology at [address] [phone] Cody Frazier MD [facility] DR HEMATOLOGY [place] [address] eBa Grimes APRN [address] [place] [address] [place] [address] documented as of this encounter Visit Diagnoses Not on filedocumented in this encounter Care Teams Metal Coater Operator Relationship Specialty Start Date End Date Arias Mast DNP PCP - General Family Medicine 02/14/21 04/02/22 documented as of this encounter
--- OUTSIDE RECORDS SUMMARY | 2023-12-29 18:21 | XMS_ITS | Encounter Summary ---
Author Organization [facility] Address [facility] [place] [address] Care Team Providers Care Coding Assistant Name Role Phone Arias Mast DNP Primary Care Provider [phone] Reason for Visit * Reason Onset Date Comments Other 09/11/2021 Transportation p dyllan Encounter Details Date Type Department Care Team (Late st Contact Info) Description 09/11/2021 Telephone Hematology/Oncology at [address] [phone] Lroraine Huerta, CONSTITUTIONAL LAW PROFESSOR OFFICE OF CARE MANAGEMENT Other (Transportation plan) [...] Plan Review Transportation service provider: REJI @ [phone] Person coordinating transportation: patient Transportation request submitted [...] EST TH Visit (TeleHealth) Hematology/Oncology at [address] [phone] Cody Frazier MD [facility] DR HEMATOLOGY AND ONCOLOGY [place], [place] [phone] Bea Grimes APRN [address] [place] [address] DR HEMATOLOGY AND ONCOLOGY [place], [place] [address] documented as of this encounter Visit Diagnoses Not on filedocumented in this encounter Care Teams Coding Assistant Relationship Specialty Start Date End Date Arias Mast DNP PCP - General Family Medicine 02/14/21 2 documented as of this encounter
--- OUTSIDE RECORDS SUMMARY | 2023-12-29 18:21 | XMS_ITS | Encounter Summary ---
Author Organization [facility] Address [facility] [place] [address] Care Team Providers Care Calender Supervisor Name Role Phone Arias Mast DNP Primary Care Provider [phone] Reason for Visit * Reason Comments Chemotherapy [...] (Paraplatin) AUC = 5 Cody Frazier MD [address] [place] [address] DR HEMATOLOGY [place] [address] Cody Frazier MD [address] [place] [address] DR HEMATOLOGY [place] [address] Referral ID Status Reason Start Date Expiration Date Visits Re quested Visits Authorized [id number] Closed 02/10/2022 2022 99 99 Encounter Details Date Type Department Care Team (Late st Contact Info) Description 08/20/2021 10:30 AM EDT Infusion Hematology Oncology at [address] [phone] Secondary malignant neoplasm of bone; [...] and BSA by Mohini Caal, RN & LTAC, located within [facility] onsite. REACTIONS (DESCRIPTION, TIME, INTERVENTION AND EFFECTIVENESS) none ASSESSMENT Cornelius was awake, alert and tolerated treatment well. PLAN Return to clinic per routine. documented in this encounter Plan of Treatment Upcoming Encounters Date Type Department Care Team (Late st Contact Info) Description 01/05/2024 2:30 PM EST TH Visit (TeleHealth) Hematology/Oncology at [address] [phone] Cody Frazier MD [facility] DR HEMATOLOGY [place] [address] Bea Grimes APRN [address] [place] [address] DR HEMATOLOGY AND ONCOLOGY [place], [place] [id number] documented as of this encounter Visit Diagnoses [...] mL/hr documented in this encounter Care Teams Calender Supervisor Relationship Specialty Start Date End Date Arias Mast DNP PCP - General Family Medicine 02/14/21 04/02/22 documented as of this encounter
--- OUTSIDE RECORDS SUMMARY | 2023-12-29 18:21 | XMS_ITS | Encounter Summary ---
Author Organization [facility] Address [facility] [place] [address] Care Team Providers Care Rustic Terrazzo Setter Name Role Phone Arias Mast DNP Primary Care Provider [phone] Encounter Details Date Type Department Care Team (Late st Contact Info) Description 09/24/2021 1:00 PM EDT Office Visit Hematology/Oncology at [address] [phone] Nadege Bolivar, RD [facility] DR [place] [address] Malignant neoplasm of lower lobe, [...] 1:00 PM EDT [facility] Initial Assessment Patient Name: Alexis Pelayo Diagnosis: metastatic non-small cell cinoma of the lung. Referred by: [facility] Assessment: HPI Patient Active Problem List Diagnosis [...] very well lately. 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 He has been enjoying meat and cooked zucchini and squash lately. He eats 2-3 meals per day. 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 Nutrition Problem: Unintentional weight loss related to poor appetite secondary to pain as evidenced by 10# loss in June 2021 and 20# below usual body weight (12.5% body weight)--improved/stable Estimated needs based on current weight of 63.7 [id number] kcals (30-40 kcal/kg) COPD, metastatic NSCLC, weight [...] EST TH Visit (TeleHealth) Hematology/Oncology at [address] [phone] Cody Frazier MD [facility] DR [place] [address] Bea Grimes APRN [address] [place] [address] DR HEMATOLOGY AND ONCOLOGY [place], [place] [id number] documented as of this encounter Visit Diagnoses Diagnosis Malignant neoplasm of lower lobe, right bronchus or lung documented in this encounter Care Teams Rustic Terrazzo Setter Relationship Specialty Start Date End Date Arias Mast DNP PCP - General Family Medicine 02/14/21 04/02/22 documented as of this encounter
--- OUTSIDE RECORDS SUMMARY | 2023-12-29 18:21 | XMS_ITS | Encounter Summary ---
Author Organization [facility] Address [facility] [place] [address] Care Team Providers Care Bail Attacher Name Role Phone Arias Mast DNP Primary Care Provider [phone] Reason for Visit * Consultation (Routine) - Closed Specialty Diagnoses / Procedures Referred By Kristan t Referred To Contact Hematology and Oncology Diagnoses Mass of lower lobe of right lung Román Valdivia MD [facility] [place] [address] [facility] Hem Onc [address] [place] [address] Referral ID Status Reason Start Date Expiration Date V isits Requested Visits Authorized [id number] Closed Consult, Test & Treat 06/21/2021 06/21/2022 1 1 Encounter Details Date Type Department Care Team (Late st Contact Info) Description 07/16/2021 4:00 PM EDT Office Visit Hematology/Oncology at [address] [phone] Cody Frazier MD [facility] DR HEMATOLOGY [place] [address] Teena Nieto APRN [facility] DR HEMATOLOGY AND ONCOLOGY [place], [place] [id number] Malignant neoplasm of lower lobe, right bronchus [...] Work Status: [ ] 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 Need FMLA paperwork signed [ ] yes [ X ] no Housing: [ ] home [ ] assisted living [ X ] other-apartment [ X ] alone [ ] caregiver/roommate/spouse Support Systems: a few friends. Sister coming from [place] (will come once a month). Transportation plan: [ ]private vehicle [X ] [facility]-schedules own rides [ ] Unknown at this time needs Social Work referral PCP:Arias Mast APRN Rx insurance? [ ] yes [X ] no medicaid [facility] FUNCTIONAL SCREENING: Balance difficulty: [ X ]no [...] were not included. Hematology & Medical Oncology [address] [address] Alexis Pelayo is being seen for the evaluation of lung cancer. Assessment & Plan: Alexis Pelayo is a 50 y.o. male patient with a past medical history significant for COPD, a 75-qvpv-cwwr smoking history, chronic migraine headaches diagnosed with [...] MD, MS 07/18/2021 Medical Oncology & Hematology [facility] CC: Arias Mast, IGNACIA Alva MD HPI/Interval History/Subjective: Alexis Pelayo is a 50 y.o. male patient with a past medical history significant for COPD, a 55-wcru-haxz smoking history, chronic migraine headaches who was [...] Social History/Support Network: Home situation: From the [place] originally. Came up here because of family Has a sister Kristine Brantley who lives i[place] who is his DPOA. 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
--- OUTSIDE RECORDS SUMMARY | 2023-12-29 18:21 | XMS_ITS | Encounter Summary ---
Author Organization [facility] Address [facility] [place] [address] Care Team Providers Care Product Picker Name Role Phone Arias Mast DNP Primary Care Provider [phone] Encounter Details Date Type Department Care Team (Late st Contact Info) Description 08/28/2021 10:10 PM EDT Ancillary Procedure Radiology Library at [facility] [place] [phone] Cody Frazier MD [facility] HEMATOLOGY [place] [address] Social History Tobacco Use Types Packs/Day Years [...] EST TH Visit (TeleHealth) Hematology/Oncology at [address] [phone] Cody Frazier MD [facility] DR [place] [address] Bea Grimes APRN [address] [place] [address] DR HEMATOLOGY AND ONCOLOGY [place], [place] [id number] documented as of this encounter Procedures Procedure Name Priority Date/Time Associated Diagnosis Comments FILM LIBRARY STORAGE ONLY CT CHEST Routine 08/28/2021 10:07 PM EDT documented in this encounter Results * Film Library- Storage Only CT Chest (08/28/2021 10:07 PM EDT) Narrative [facility] - 08/28/2021 10:07 PM EDT This exam is auto-finalizing. It's purpose is for storage only. Cody Frazier MD IMG FILM LIBRARY ORD ERABLES [place], [place] documented in this encounter Visit Diagnoses Not on filedocumented in this encounter Care Teams Product Picker Relationship Specialty Start Date End Date Arias Mast DNP PCP - General Family Medicine 02/14/21 04/02/22 documented as of this encounter
--- OUTSIDE RECORDS SUMMARY | 2023-12-29 18:21 | XMS_ITS | Encounter Summary ---
Author Organization [facility] Address [facility] [place] [address] Care Team Providers Care Odd Shoe Examiner Name Role Phone Arias Mast DNP Primary Care Provider [phone] Encounter Details Date Type Department Care Team (Late st Contact Info) Description 07/30/2021 Notes Only Hematology/Oncology at [address] [phone] Lorraine Huerta, MAC ARTIST OFFICE OF CARE MANAGEMENT Social History Tobacco [...] ride arranged with [facility] worked well. Explained MAC ARTIST messaged [facility] for the rides he will need for his appointments on 08-06-21; 08-14-21 and 08-20-21. We will discuss at that time if he wants to take over scheduling his own rides at that point. Ride request sent to [facility] per appointment desk as follows - Friday08-06-21 [facility] @ 8 [facility] @ 9 Home @ 10 Friday08-14-21 [facility] @ 7 [facility] @ 8 Home @ 11:15 Friday08-20-21 [facility] @ 9 [facility] ST[facility] @ 10 Home @ 2 Pt indicated his sister from [place] is visiting. She is helping him with some chores. He has been pretty tired overall but managing at home. Pt did not identify any new needs. Reminded him of MAC ARTIST availability and contact information. Will continue to follow for support and resources. Care Coordination Transportation resources documented in this encounter Plan of Treatment Upcoming Encounters Date Type Department Care Team (Late st Contact Info) Description 01/05/2024 2:30 PM EST Visit (TeleHealth) Hematology/Oncology at [address] [phone] Cody Frazier MD [facility] DR [place] [address] Bea Grimes APRN [address] [place] [address] DR [place] [address] documented as of this encounter Visit Diagnoses Not on filedocumented in this encounter Care Teams Odd Shoe Examiner Relationship Specialty Start Date End Date Arias Mast DNP PCP - General Family Medicine 02/14/21 04/02/22 documented as of this encounter
--- OUTSIDE RECORDS SUMMARY | 2023-12-29 18:21 | XMS_ITS | Encounter Summary ---
Author Organization [facility] Address [facility] [place] [address] Care Team Providers Care Personal Injury Legal Assistant Name Role Phone Arias Mast DNP Primary Care Provider [phone] Reason for Visit * Reason Onset Date Comments Medication Refill 10/08/2021 Encounter Details Date Type Department Care Team (Late st Contact Info) Description 10/08/2021 Refill Hematology/Oncology at [address] [phone] Cody Frazier MD [facility] DR HEMATOLOGY [place] [address] Social History Tobacco Use Types Packs/Day Years [...] EST TH Visit (TeleHealth) Hematology/Oncology at [address] [phone] Cody Frazier MD [facility] DR HEMATOLOGY [place] [address] Bea Grimes APRN [address] [place] [address] DR HEMATOLOGY [place] [address] documented as of this encounter Visit Diagnoses Not on filedocumented in this encounter Care Teams Personal Injury Legal Assistant Relationship Specialty Start Date End Date Arias Mast DNP PCP - General Family Medicine 02/14/21 04/02/22 documented as of this encounter
--- OUTSIDE RECORDS SUMMARY | 2023-12-29 18:21 | XMS_ITS | Encounter Summary ---
Author Organization [facility] Address [facility] [place] [address] Care Team Providers Care Surgical Scrub Technician Name Role Phone Arias Mast DNP Primary Care Provider [phone] Encounter Details Date Type Department Care Team (Late st Contact Info) Description 07/16/2021 Telephone Radiation Oncology at [address] [phone] Lorraine Huerta, [facility] OFFICE OF CARE MANAGEMENT Social History Tobacco [...] 8:21 AM EDT [facility] that [facility] pt's request for $350 towards his $700 rent. TC pt and notified him. Discussed applying to the [facility] for additional assistance for his rent. Pt needs to bring in a formal lease or letter and W9 from his landlord as a requirement of that fund. Pt to collect the information and will bring in to CORE OVEN TENDER. Care Coordination Financial resources Community Resource Met with pt after his RT treatment and gave him a copy of the [facility] application to fill out. Again discussed the information he will need to get from his landlord. Will assist pt with this once he has brought in all the required information. documented in this encounter Plan of Treatment Upcoming Encounters Date Type Department Care Team (Late st Contact Info) Description 01/05/2024 2:30 PM EST TH Visit (TeleHealth) Hematology/Oncology at [address] [phone] Cody Frazier MD [facility] DR HEMATOLOGY [place] [address] Bea Grimes APRN [address] [place] [address] DR HEMATOLOGY AND ONCOLOGY [place], [place] [address] documented as of this encounter Visit Diagnoses Not on filedocumented in this encounter Care Teams Surgical Scrub Technician Relationship Specialty Start Date End Date Arias Mast DNP PCP - General Family Medicine 02/14/21 04/02/22 documented as of this encounter
--- OUTSIDE RECORDS SUMMARY | 2023-12-29 18:21 | XMS_ITS | Encounter Summary ---
Author Organization [facility] Address [facility] [place] [address] Care Team Providers Care Milk Bottling Machine Operator Name Role Phone Arias Mast DNP Primary Care Provider [phone] Reason for Visit * Reason Comments Chemotherapy [...] (Paraplatin) AUC = 5 Cody Frazier MD [address] [place] [address] DR [place] [address] Cody Frazier MD [address] [place] [address] DR [place] [address] Referral ID Status Reason Start Date Expiration Date Visits Re quested Visits Authorized [id number] Closed 02/10/2022 2022 99 99 Encounter Details Date Type Department Care Team (Late st Contact Info) Description 08/14/2021 8:00 AM EDT Infusion Hematology Oncology at [address] [phone] Secondary malignant neoplasm of bone; Medication management; [...] and BSA by Deanne Nelson, PATRICIA & [facility] onsite. REACTIONS (DESCRIPTION, TIME, INTERVENTION AND EFFECTIVENESS) none ASSESSMENT Cornelius was awake, alert and tolerated treatment well. PLAN Return to clinic per routine. documented in this encounter Plan of Treatment Upcoming Encounters Date Type Department Care Team (Late st Contact Info) Description 01/05/2024 2:30 PM EST TH Visit (TeleHealth) Hematology/Oncology at [address] [phone] Cody Frazier MD [facility] DR [place] [address] Bea Grimes APRN [address] [place] [address] DR HEMATOLOGY AND ONCOLOGY [place], [place] [id number] documented as of this encounter Visit Diagnoses [...] 2 minutes is a recommendation from the tube coremaker. Administer prior to chemotherapy., Routine Given 08/14/2021 [...] mL/hr documented in this encounter Care Teams Milk Bottling Machine Operator Relationship Specialty Start Date End Date Arias Mast DNP PCP - General Family Medicine 02/14/21 04/02/22 documented as of this encounter
--- OUTSIDE RECORDS SUMMARY | 2023-12-29 18:21 | XMS_ITS | Encounter Summary ---
Author Organization [facility] Address [facility] [place] [address] Care Team Providers Care Cdl Service Technician Name Role Phone Arias Mast DNP Primary Care Provider [phone] Encounter Details Date Type Department Care Team (Late st Contact Info) Description 07/23/2021 11:45 AM EDT Office Visit Hematology/Oncology at [address] [phone] Cody Frazier MD [facility] DR [place] [address] Teena Nieto APRN [facility] DR [place] [address] Malignant neoplasm of lower lobe, right bronchus [...] were not included. Hematology & Medical Oncology [address] [phone] Alexis Pelayo is being seen for the evaluation of lung cancer. Assessment & Plan: Alexis Pelayo is a 50 y.o. male patient with a past medical history significant for COPD, a 00-lzao-qdqg smoking history, chronic migraine headaches diagnosed with [...] MD, MS 07/23/2021 Medical Oncology & Hematology [facility] CC: IGNACIA Mora MD Patient Instructions [...] Social History/Support Network: Home situation: From the [place] originally. Came up here because of family Has a sister Kristine Brantley who lives i[place] who is his DPOA. 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
--- OUTSIDE RECORDS SUMMARY | 2023-12-29 18:21 | XMS_ITS | Encounter Summary ---
Author Organization [facility] Address [facility] [place] [address] Care Team Providers Care Waste Paper Hammermill Operator Name Role Phone Arias Mast DNP Primary Care Provider [phone] Reason for Visit * Reason Onset Date Comments Other 09/04/2021 Transportation p dyllan Encounter Details Date Type Department Care Team (Late st Contact Info) Description 09/04/2021 Telephone Hematology/Oncology at [address] [phone] Lorraine Huerta, BLOCK SORTER OFFICE OF CARE MANAGEMENT Other (Transportation plan) [...] Plan Review Transportation service provider: REJI @ [phone] Person coordinating transportation: Lorraine Huerta, @ [phone] Transportation request submitted to service provider: yes [...] EST TH Visit (TeleHealth) Hematology/Oncology at [address] [phone] Cody Frazier MD [facility] DR HEMATOLOGY [place] [address] Bea Grimes APRN [address] [place] [address] DR HEMATOLOGY AND ONCOLOGY [place], [place] [id number] documented as of this encounter Visit Diagnoses Not on filedocumented in this encounter Care Teams Waste Paper Hammermill Operator Relationship Specialty Start Date End Date Arias Mast DNP PCP - General Family Medicine 02/14/21 04/02/22 documented as of this encounter
--- OUTSIDE RECORDS SUMMARY | 2023-12-29 18:21 | XMS_ITS | Encounter Summary ---
Author Organization [facility] Address [facility] [place] [address] Care Team Providers Care Hospitalist Name Role Phone Arias Mast DNP Primary Care Provider [phone] Reason for Visit * Reason Onset Date Comments Other 07/18/2021 transportation Encounter Details Date Type Department Care Team (Late st Contact Info) Description 07/18/2021 Telephone Hematology/Oncology at [address] [phone] Lorraine Huerta, SCHEDULING ADMINISTRATOR OFFICE OF CARE MANAGEMENT Other (transportation) Social [...] Plan Review Transportation service provider: REJI @ [phone] Person coordinating transportation: Lorraine Huerta, @ [phone] Transportation request submitted to service provider: yes for appointments on 07-23-21 and 07-30-21 per appointment desk and review with Ashanti Lira Clinical Truck Sales Manager Reviewed/matched transportation request with appointment schedule: yes Patient has contact information to transportation provider: yes Actions taken today: messaged [facility] requesting rides for 07-23-21 and 07-30-21 SW Interventions: Care Coordination Transportation resources documented in this encounter Plan of Treatment Upcoming Encounters Date Type Department Care Team (Late st Contact Info) Description 01/05/2024 2:30 PM EST Visit (TeleHealth) Hematology/Oncology at [address] [phone] Cody Frazier MD [facility] DR HEMATOLOGY AND ONCOLOGY [place], [place] [phone] Bea Grimes APRN [address] [place] [address] DR HEMATOLOGY AND ONCOLOGY [place], [place] [id number] documented as of this encounter Visit Diagnoses Not on filedocumented in this encounter Care Teams Hospitalist Relationship Specialty Start Date End Date Kezia, Arias Dege, DNP PCP - General Family Medicine 02/14/21 04/02/22 documented as of this encounter
--- OUTSIDE RECORDS SUMMARY | 2023-12-29 18:21 | XMS_ITS | Encounter Summary ---
Author Organization [facility] Address [facility] [place] [address] Care Team Providers Care Collection Card Clerk Name Role Phone Arias Mast DNP Primary Care Provider [phone] Reason for Visit * Reason Comments Chemotherapy [...] (Paraplatin) AUC = 5 Cody Frazier MD [address] [place] [address] [place] [address] Cody Frazier MD [address] [place] [address] DR [place] [address] Referral ID Status Reason Start Date Expiration Date Visits Re quested Visits Authorized [id number] Closed 02/10/2022 2022 99 99 Encounter Details Date Type Department Care Team (Late st Contact Info) Description 09/13/2021 10:00 AM EDT Infusion Hematology Oncology at [address] [phone] Secondary malignant neoplasm of bone; Medication management; [...] CYCLE #3: Day 8 REASON FOR VISIT: Jonahaxane SUBJECTIVE Cornelius offers no complaints. He reports he is feeling well, testing for Covid last Friday and was negative. OBJECTIVE LAB DATA: Done today at [facility]- WBC 4.25, Hgb 10.3, Hct 32.1, PLT 369k, ANC 2.73, Cr 1.0 IV ACCESS: PIV right arm Pre administration: Chemotherapy orders independently verified for drug name, route, and dosage per patient's height, weight and BSA by Bandar Dillard, PATRICIA & [facility] onsite. REACTIONS (DESCRIPTION, TIME, INTERVENTION AND EFFECTIVENESS) none ASSESSMENT Cornelius was awake, alert and tolerated treatment well. PLAN Return to clinic per routine. documented in this encounter Plan of Treatment Upcoming Encounters Date Type Department Care Team (Late st Contact Info) Description 01/05/2024 2:30 PM EST TH Visit (TeleHealth) Hematology/Oncology at [address] [phone] Cody Frazier MD [facility] DR HEMATOLOGY [place] [address] Bea Grimes APRN [address] [place] [address] DR HEMATOLOGY AND ONCOLOGY [place], [place] [id number] documented as of this encounter Visit Diagnoses [...] mL/hr documented in this encounter Care Teams Collection Card Clerk Relationship Specialty Start Date End Date Arias Mast DNP PCP - General Family Medicine 02/14/21 04/02/22 documented as of this encounter
--- OUTSIDE RECORDS SUMMARY | 2023-12-29 18:21 | XMS_ITS | Encounter Summary ---
Author Organization [facility] Address [facility] [place] [address] Care Team Providers Care Dip Tanker Name Role Phone Arias Mast DNP Primary Care Provider [phone] Encounter Details Date Type Department Care Team (Late st Contact Info) Description 09/24/2021 11:00 AM EDT Office Visit Hematology/Oncology at [address] [phone] Cody Frazier MD [facility] DR HEMATOLOGY [place] [address] Teena Nieto APRN [facility] DR HEMATOLOGY [place] [address] Malignant neoplasm of lower lobe, right bronchus [...] not included. Hematology & Medical Oncology [address] [address] Alexis Pelayo is being seen for the evaluation of lung cancer. Assessment & Plan: Alexis Pelayo is a 50 y.o. male patient with a past medical history significant for COPD, a 87-zekg-hxic smoking history, chronic migraine headaches diagnosed with [...] MD, MS 09/24/2021 Medical Oncology & Hematology [facility] CC: HPI/Interval History/Subjective: Last seen 08/20/2021 Back [...] Social History/Support Network: Home situation: From the [place] originally. Came up here because of family Has a sister Kristine Brantley who lives i[place] who is his DPOA. 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 And also [...] a past medical history significant forCOPD, a 94-vybe-rzgh smoking history, chronic migraine headaches who was [...] 1.8 total bilirubin 0.1 AST 11 [facility] [place] 84 ALT 18 albumin 3.6 up from [...] EST TH Visit (TeleHealth) Hematology/Oncology at [address] [phone] Cody Frazier MD [facility] DR HEMATOLOGY [place] [address] Bea Grimes APRN [address] [place] [address] DR HEMATOLOGY AND ONCOLOGY [place], [place] [address] documented as of this encounter Visit Diagnoses Diagnosis Malignant neoplasm of lower lobe, right bronchus or lung 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
--- OUTSIDE RECORDS SUMMARY | 2023-12-29 18:21 | XMS_ITS | Encounter Summary ---
Author Organization [facility] Address [facility] [place] [address] Care Team Providers Care Fulfillment Specialist Name Role Phone Arias Mast DNP Primary Care Provider [phone] Reason for Visit * Reason Comments Chemotherapy [...] (Paraplatin) AUC = 5 Cody Frazier MD [address] [place] [address] DR [place] [address] Cody Frazier MD [address] [place] [address] DR [place] [address] Referral ID Status Reason Start Date Expiration Date Visits Re quested Visits Authorized [id number] Closed 02/10/2022 2022 99 99 Encounter Details Date Type Department Care Team (Late st Contact Info) Description 10/01/2021 8:30 AM EDT Infusion Hematology Oncology at [address] [phone] Secondary malignant neoplasm of bone; [...] and BSA by Mohini Caal, [facility] onsite. REACTIONS (DESCRIPTION, TIME, INTERVENTION AND EFFECTIVENESS) none ASSESSMENT Cornelius was awake, alert and tolerated treatment well. PLAN Return to clinic per routine. documented in this encounter Plan of Treatment Upcoming Encounters Date Type Department Care Team (Late st Contact Info) Description 01/05/2024 2:30 PM EST TH Visit (TeleHealth) Hematology/Oncology at [address] [phone] Cody Frazier MD [facility] DR HEMATOLOGY [place] [address] Bea Grimes APRN [address] [place] [address] DR HEMATOLOGY AND ONCOLOGY [place], [place] [id number] documented as of this encounter Visit Diagnoses [...] 8 mg, Oral, ONCE, 1 dose, On Fri10/01/21 at 0845, Administer prior to chemotherapy, Routine Given 10/01/2021 8:42 AM EDT 8 mg PACLitaxeL-protein bound (Abraxane) injection 177 mg 177 mg (100 mg/m2/dose ? 1.77 m2 Treatment Plan BSA from Recorded weight), Intravenous, ONCE, 1 dose, On Fri10/01/21 at 0945, Administer over 30 Minutes New Bag 10/01/2021 9:36 AM EDT 177 mg 70.8 mL/hr documented in this encounter Care Teams Fulfillment Specialist Relationship Specialty Start Date End Date Arias Mast DNP PCP - General Family Medicine 02/14/21 04/02/22 documented as of this encounter
--- OUTSIDE RECORDS SUMMARY | 2023-12-29 18:21 | XMS_ITS | Encounter Summary ---
Author Organization [facility] Address [facility] [place] [address] Care Team Providers Care Ticket Worker Name Role Phone Arias Mast DNP Primary Care Provider [phone] Encounter Details Date Type Department Care Team (Late st Contact Info) Description 10/01/2021 10:00 AM EDT Office Visit Hematology/Oncology at [address] [phone] Nadege Bolivar, RD [facility] DR [place] [address] Malignant neoplasm of lower lobe, right bronchus [...] any less recently. 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 He was about to go get a sandwich at the local [facility]. Offered patient could try ONS samples available [...] needs based on current weight of 60.3 [id number] kcals (30-40 kcal/kg) COPD, metastatic NSCLC, weight [...] EST TH Visit (TeleHealth) Hematology/Oncology at [address] [phone] Cody Frazier MD [facility] DR HEMATOLOGY AND ONCOLOGY [place], [place] [id number] Bea Grimes APRN [address] [place] [address] DR HEMATOLOGY AND ONCOLOGY [place], [place] [id number] documented as of this encounter Visit Diagnoses Diagnosis Malignant neoplasm of lower lobe, right bronchus or lung documented in this encounter Care Teams Ticket Worker Relationship Specialty Start Date End Date Arias Mast DNP PCP - General Family Medicine 02/14/21 2 documented as of this encounter
--- OUTSIDE RECORDS SUMMARY | 2023-12-29 18:21 | XMS_ITS | Encounter Summary ---
Author Organization [facility] Address [facility] [place] [address] Care Team Providers Care Consultant In Ergonomics And Safety Name Role Phone Arias Mast DNP Primary Care Provider [phone] Reason for Visit * Reason Onset Date Comments Prior Authorization 07/13/2021 Molecular ca ncer testing CPT 69412 is a covered benefit. Encounter Details Date Type Department Care Team (Late st Contact Info) Description 07/13/2021 Telephone [place] [address] Ashley Cedeño Prior Authorization (Molecular cancer testing CPT 60840 is a covered benefit. ) Social History [...] 11:21 AM EDT Molecular cancer testing: CPT 73166 is a covered benefit: I received an e-mail from Neema in [employer] ([employer] 07/10/2021) requesting coverage review for CPT 82292 which is to be done on the patient???s right lower lobe lung cancer tissue obtained on 06/27/2021, provider is Román Valdivia MD. I will e-mail Neema to let her know of approved coverage. documented in this encounter Plan of Treatment Upcoming Encounters Date Type Department Care Team (Late st Contact Info) Description 01/05/2024 2:30 PM EST TH Visit (TeleHealth) Hematology/Oncology at [address] [phone] Cody Frazier MD [facility] DR HEMATOLOGY AND ONCOLOGY [place], [place] [phone] Bea Grimes APRN [address] [place] [address] DR HEMATOLOGY AND ONCOLOGY [place], [place] [id number] documented as of this encounter Visit Diagnoses Not on filedocumented in this encounter Care Teams Consultant In Ergonomics And Safety Relationship Specialty Start Date End Date Arias Mast DNP PCP - General Family Medicine 02/14/21 04/02/22 documented as of this encounter
--- OUTSIDE RECORDS SUMMARY | 2023-12-29 18:21 | XMS_ITS | Encounter Summary ---
Author Organization [facility] Address [facility] [place] [address] Care Team Providers Care Criminal Investigative Agent Name Role Phone Arias Mast DNP Primary Care Provider [phone] Reason for Visit * Reason Onset Date Comments Other 08/28/2021 Transportation p dyllan Encounter Details Date Type Department Care Team (Late st Contact Info) Description 08/28/2021 Telephone Hematology/Oncology at [address] [phone] Lorraine Huerta, WATER CONSERVATION SPECIALIST OFFICE OF CARE MANAGEMENT Other (Transportation plan) [...] Plan Review Transportation service provider: REJI @ [phone] Person coordinating transportation: Lorraine Huerta, @ [phone] Transportation request submitted to service provider: rides requested for 09-03-21 and 09-10-21 appointments Reviewed/matched transportation request with appointment schedule: yes Patient has contact information to transportation provider: yes Actions taken today: Messaged [facility] requesting rides for 09-10-21 appointments per appointment desk with clarification from Tish Mariee RN [facility] labs @ 7:30 [facility] @ 8:30 Home @ [address] Interventions: Care Coordination Transportation resources documented in this encounter Plan of Treatment Upcoming Encounters Date Type Department Care Team (Late st Contact Info) Description 01/05/2024 2:30 PM EST TH Visit (TeleHealth) Hematology/Oncology at [address] [phone] Cody Frazier MD [facility] DR [place] [address] Bea Grimes APRN [address] [place] [address] DR HEMATOLOGY AND ONCOLOGY [place], [place] [address] documented as of this encounter Visit Diagnoses Not on filedocumented in this encounter Care Teams Criminal Investigative Agent Relationship Specialty Start Date End Date Arias Mast DNP PCP - General Family Medicine 02/14/21 2 documented as of this encounter
--- OUTSIDE RECORDS SUMMARY | 2023-12-29 18:21 | XMS_ITS | Encounter Summary ---
Author Organization [facility] Address [facility] [place] [address] Care Team Providers Care Deposition Operator Name Role Phone Arias Mast DNP Primary Care Provider [phone] Reason for Visit * Reason Onset Date Comments Labs Only 07/19/2021 Lab database operator, critical platelet count Encounter Details Date Type Department Care Team (Late st Contact Info) Description 07/19/2021 Telephone Hematology Oncology at [address] [phone] Aydee Yung RN Labs Only (Lab database operator, critical platelet count) Social History Tobacco Use [...] EST TH Visit (TeleHealth) Hematology/Oncology at [address] [phone] Cody Frazier MD [facility] DR HEMATOLOGY [place] [address] Bea Grimes APRN [address] [place] [address] DR HEMATOLOGY AND ONCOLOGY [place], [place] [id number] documented as of this encounter Procedures Procedure [...] Hemoglobin 8.9(L) Hematocrit 29.2(L) Platelet 802(Critic al) Neutrophil Absolute (ANC) - Automated 15.06(H) Blood 07/19/2021 Historical Provider HEMATOLOGY ORDERA BLES documented in this encounter Visit Diagnoses Not on filedocumented in this encounter Care Teams Deposition Operator Relationship Specialty Start Date End Date Arias Mast DNP PCP - General Family Medicine 02/14/21 04/02/22 documented as of this encounter
--- OUTSIDE RECORDS SUMMARY | 2023-12-29 18:21 | XMS_ITS | Encounter Summary ---
Author Organization [facility] Address [facility] [place] [address] Care Team Providers Care Cartridge Gauger Name Role Phone Arias Mast DNP Primary Care Provider [phone] Reason for Visit * Reason Comments Chemotherapy [...] (Paraplatin) AUC = 5 Cody Frazier MD [address] [place] [address] DR [place] [address] Cody Frazier MD [address] [place] [address] DR [place] [address] Referral ID Status Reason Start Date Expiration Date Visits Re quested Visits Authorized [id number] Closed 02/10/2022 2022 99 99 Encounter Details Date Type Department Care Team (Late st Contact Info) Description 07/23/2021 12:30 PM EDT Infusion Hematology Oncology at [address] [phone] Secondary malignant neoplasm of bone; [...] for treatment. OBJECTIVE LAB DATA: 07/19 at [facility] reviewed and adequate for treatment today. IV [...] EST TH Visit (TeleHealth) Hematology/Oncology at [address] [phone] Cody Frazier MD [facility] DR HEMATOLOGY [place] [address] Bea Grimes APRN [address] [place] [address] DR HEMATOLOGY AND ONCOLOGY [place], [place] [id number] documented as of this encounter Visit Diagnoses [...] 2 minutes is a recommendation from the simulation software engineer. Administer prior to chemotherapy., Routine Given 07/23/2021 [...] mL/hr documented in this encounter Care Teams Cartridge Gauger Relationship Specialty Start Date End Date Arias Mast DNP PCP - General Family Medicine 02/14/21 04/02/22 documented as of this encounter
--- OUTSIDE RECORDS SUMMARY | 2023-12-29 18:21 | XMS_ITS | Encounter Summary ---
Author Organization [facility] Address [facility] [place] [address] Care Team Providers Care Solid Waste Facility Supervisor Name Role Phone Arias Mast DNP Primary Care Provider [phone] Encounter Details Date Type Department Care Team (Late st Contact Info) Description 07/12/2021 12:45 PM EDT Office Visit Radiation Oncology at [address] [phone] Dima Garcia Jr., MD [facility] [place] [address] Malignant neoplasm of lower lobe, [...] slept in a usp (including now)? No 02/14/2021 Sex and Gender [...] the original note were not included. [facility] Medicine Radiation Oncology Radiation Oncology On-treatment [...] Current Dose: 15 Gy in 5 fractionS Hand Singer Spaulding from Current Plan (minimum 30 Gy [...] EST TH Visit (TeleHealth) Hematology/Oncology at [address] [phone] Cody Frazier MD [facility] DR HEMATOLOGY [place] [address] Bea Grimes [address] HEMATOLOGY AND ONCOLOGY [place], [place] [id number] documented as of this encounter Visit Diagnoses Diagnosis Malignant neoplasm of lower lobe, right bronchus or lung documented in this encounter Care Teams Solid Waste Facility Supervisor Relationship Specialty Start Date End Date Arias Mast DNP PCP - General Family Medicine 02/14/21 04/02/22 documented as of this encounter
--- OUTSIDE RECORDS SUMMARY | 2023-12-29 18:21 | XMS_ITS | Encounter Summary ---
Author Organization [facility] Address [facility] [place] [address] Care Team Providers Care Web Development Intern Name Role Phone Arias Mast DNP Primary Care Provider [phone] Encounter Details Date Type Department Care Team (Late st Contact Info) Description 08/20/2021 Notes Only Hematology/Oncology at [address] [phone] Lorraine Huerta, YARN WASHER OFFICE OF CARE MANAGEMENT Social History Tobacco [...] some friends do visit. His sister from [place] has visited. Pt continues with no source of income. He has planned to apply for SSDI but has not made the call to start the process. Printed SSDI information for pt with the contact number for the [facility] office. Pt has accessed the [facility] [employer] for help with his rent. He indicated his landlord is very understanding re his situation. Reminded pt of YARN WASHER availability and contact information. Will continue to follow and assist as indicated. Brief assessment Supportive Counseling Care Coordination Financial resources Transportation resources documented in this encounter Plan of Treatment Upcoming Encounters Date Type Department Care Team (Late st Contact Info) Description 01/05/2024 2:30 PM EST TH Visit (TeleHealth) Hematology/Oncology at [address] [phone] Cody Frazier MD [facility] DR [place]EMATOLOGY [place] [address] Bea Grmies APRN [address] [place] [address] DR HEMATOLOGY AND ONCOLOGY [place], [place] [address] documented as of this encounter Visit Diagnoses Not on filedocumented in this encounter Care Teams Web Development Intern Relationship Specialty Start Date End Date Arias Mast DNP PCP - General Family Medicine 02/14/21 04/02/22 documented as of this encounter
--- OUTSIDE RECORDS SUMMARY | 2023-12-29 18:21 | XMS_ITS | Encounter Summary ---
Author Organization [facility] Address [facility] [place] [address] Care Team Providers Care Service Supervisor Name Role Phone Arias Mast DNP Primary Care Provider [phone] Reason for Visit * Reason Comments Chemotherapy [...] AUC = 5 Cody Frazier MD [address] [place] [address] DR HEMATOLOGY [place] [address] Cody Frazier MD [address] [place] [address] DR HEMATOLOGY [place] [address] Referral ID Status Reason Start Date Expiration Date Visits Re quested Visits Authorized [id number] Closed 02/10/2022 2022 99 99 Encounter Details Date Type Department Care Team (Late st Contact Info) Description 09/03/2021 9:00 AM EDT Infusion Hematology Oncology at [address] [phone] Secondary malignant neoplasm of bone; [...] and BSA by Mohini Caal, RN & [facility] onsite. REACTIONS (DESCRIPTION, TIME, INTERVENTION AND EFFECTIVENESS) none ASSESSMENT Cornelius was awake, alert and tolerated treatment well. PLAN Return to clinic per routine. documented in this encounter Plan of Treatment Upcoming Encounters Date Type Department Care Team (Late st Contact Info) Description 01/05/2024 2:30 PM EST TH Visit (TeleHealth) Hematology/Oncology at [address] [phone] Cody Frazier MD [facility] DR [place] [address] Bea Grimes APRN [address] [place] [address] DR HEMATOLOGY AND ONCOLOGY [place], [place] [address] documented as of this encounter Visit Diagnoses [...] 2 minutes is a recommendation from the plaster patternmaker. Administer prior to chemotherapy., Routine Given 09/03/2021 [...] documented in this encounter Care Teams Service Supervisor Relationship Specialty Start Date End Date Arias Mast DNP PCP - General Family Medicine 02/14/21 04/02/22 documented as of this encounter
--- OUTSIDE RECORDS SUMMARY | 2023-12-29 18:21 | XMS_ITS | Encounter Summary ---
Author Organization [facility] Address [facility] [place] [address] Care Team Providers Care Production Control Specialist Name Role Phone Arias Mast DNP Primary Care Provider [phone] Encounter Details Date Type Department Care Team (Late st Contact Info) Description 09/03/2021 Notes Only Hematology/Oncology at [address] [phone] Lorraine Huerta, BEND SORTER OFFICE OF CARE MANAGEMENT Social History Tobacco [...] adjusts rides directly with [facility]. Notified pt BEND SORTER schedule rides with [facility] for his next [...] EST TH Visit (TeleHealth) Hematology/Oncology at [address] [phone] Cody Frazier MD [facility] DR HEMATOLOGY AND ONCOLOGY [place], [place] [address] Bea Grimes APRN [address] [place] [address] DR HEMATOLOGY AND ONCOLOGY [place], [place] [address] documented as of this encounter Visit Diagnoses Not on filedocumented in this encounter Care Teams Production Control Specialist Relationship Specialty Start Date End Date Arias Mast DNP PCP - General Family Medicine 02/14/21 04/02/22 documented as of this encounter
--- OUTSIDE RECORDS SUMMARY | 2023-12-29 18:21 | XMS_ITS | Encounter Summary ---
Author Organization [facility] Address [facility] [place] [address] Care Team Providers Care Rehabilitation Nurse Name Role Phone Arias Mast DNP Primary Care Provider [phone] Encounter Details Date Type Department Care Team (Late st Contact Info) Description 07/19/2021 Notes Only Radiation Oncology at [address] [phone] Christopher Alva MD [address] [place] [address] [place] [address] Social History Tobacco Use Types [...] from the original note were not included. [facility] Medicine Radiation Oncology Radiation Therapy Completion Note Patient ID ?? Patient name: Alexis Pelayo Date of : 1970 ? Referring: Dr Daniel Ross PCP: Arias Mast, PATTERNMAKER SAMPLE ? Chief complaint: St IV NSCLC ? Treatment Details ?? Intent: Palliation (of painful chest wall mass) ?? Concurrent Therapy: None ?? Modality: ?? 3DCRT Treatment Site RT posterior chest wall Prescribed Dose 30 Gy in 10 fractions ? Start Date End Date Elapsed Days 07/05/21 07/19/21 14d ? Night Coordinator Spaulding from Current Plan (minimum 30 Gy [...] plan: Follow-up visit with Radiation Oncology in [facility] will be arranged on a prn basis as he willbe following primarily with Dr. Frazier of Medical Oncology for systemic therapy; he has received instructions to call this office or seek the help of the local emergency room if any further problems should arise prior to followup. CHRISTOPHER ALVA MD 08/02/2021 ??? [facility] [place] (NCI) Comprehensive Cancer [facility] ??? [employer] Commission on Cancer (ACS Case) Accredited Cancer Program ??? [employer] (ACR) Accredited Radiation Oncology Program documented in this encounter Plan of Treatment Upcoming Encounters Date Type Department Care Team (Late st Contact Info) Description 01/05/2024 2:30 PM EST TH Visit (TeleHealth) Hematology/Oncology at [address] [phone] Cody Frazier MD [facility] DR HEMATOLOGY [place] [address] [address] HEMATOLOGY AND ONCOLOGY [place], [place] [address] documented as of this encounter Visit Diagnoses Not on filedocumented in this encounter Care Teams Rehabilitation Nurse Relationship Specialty Start Date End Date Arias Mast DNP PCP - General Family Medicine 02/14/21 04/02/22 documented as of this encounter
--- OUTSIDE RECORDS SUMMARY | 2023-12-29 18:21 | XMS_ITS | Encounter Summary ---
Author Organization [facility] Address [facility] [place] [address] Care Team Providers Care Pulp Grinder Name Role Phone Arias Mast DNP Primary Care Provider [phone] Encounter Details Date Type Department Care Team (Late st Contact Info) Description 07/19/2021 Orders Only Hematology [place] [address] Cody Frazier MD [facility] DR HEMATOLOGY [place] [address] Social History Tobacco Use Types Packs/Day Years [...] EST TH Visit (TeleHealth) Hematology/Oncology at [address] [phone] Cody Frazier MD [facility] DR HEMATOLOGY [place] [address] Bea Grimes APRN [address] [place] [address] DR [place] [address] documented as of this encounter Visit Diagnoses Not on filedocumented in this encounter Care Teams Pulp Grinder Relationship Specialty Start Date End Date Arias Mast DNP PCP - General Family Medicine 02/14/21 04/02/22 documented as of this encounter
--- OUTSIDE RECORDS SUMMARY | 2023-12-29 18:21 | XMS_ITS | Encounter Summary ---
Author Organization [facility] Address [facility] [place] [address] Care Team Providers Care Starting Gate Driver Name Role Phone Arias Mats DNP Primary Care Provider [phone] Reason for Visit * Reason Onset Date Comments Other 08/02/2021 Transportation p lans Encounter Details Date Type Department Care Team (Late st Contact Info) Description 08/02/2021 Telephone Hematology/Oncology at [address] [phone] Lorraine Huerta, MALT LIQUORS SALES SUPERVISOR OFFICE OF CARE MANAGEMENT Other (Transportation plans) [...] Plan Review Transportation service provider: REJI @ [phone] Person coordinating transportation: Lorraine Huerta, @ [phone] Transportation request submitted to service provider: yes [...] 2:30 PM EST Visit (TeleHealth) Hematology/Oncology at [address] [phone] Cody Frazier MD [facility] DR HEMATOLOGY [place] [address] Bea Grimes APRN [address] [place] [address] DR HEMATOLOGY [place]Y [place], [place] [id number] documented as of this encounter Visit Diagnoses Not on filedocumented in this encounter Care Teams Starting Gate Driver Relationship Specialty Start Date End Date Arias Mast DNP PCP - General Family Medicine 02/14/21 2 documented as of this encounter
--- OUTSIDE RECORDS SUMMARY | 2023-12-29 18:21 | XMS_ITS | Encounter Summary ---
Author Organization [facility] Address [facility] [place] [address] Care Team Providers Care Equipment Processor Name Role Phone Arias Mast DNP Primary Care Provider [phone] Reason for Visit * Reason Onset Date Comments Other 08/08/2021 Transportation p lans Encounter Details Date Type Department Care Team (Late st Contact Info) Description 08/08/2021 Telephone Hematology/Oncology at [address] [phone] Lorraine Huerta, IV THERAPY NURSE OFFICE OF CARE MANAGEMENT Other (Transportation plans) [...] Plan Review Transportation service provider: REJI @ [phone] Person coordinating transportation: Lorraine Huerta, @ [phone] Transportation request submitted to service provider: yes [...] EST TH Visit (TeleHealth) Hematology/Oncology at [address] [phone] Cody Frazier MD [facility] DR [place] [address] Bea Grimes APRN [address] [place] [address] DR HEMATOLOGY AND ONCOLOGY [place], [place] [id number] documented as of this encounter Visit Diagnoses Not on filedocumented in this encounter Care Teams Equipment Processor Relationship Specialty Start Date End Date Arias Mast DNP PCP - General Family Medicine 02/14/21 04/02/22 documented as of this encounter
--- OUTSIDE RECORDS SUMMARY | 2023-12-29 18:21 | XMS_ITS | Encounter Summary ---
Author Organization [facility] Address [facility] [place] [address] Care Team Providers Care Sales Consultant Residential Manager Name Role Phone Arias Mast DNP Primary Care Provider [phone] Reason for Visit * Reason Comments Chemotherapy [...] (Paraplatin) AUC = 5 Cody Frazier MD [address] [place] [address] [place] [address] Cody Frazier MD [address] [place] [address] [place] [address] Referral ID Status Reason Start Date Expiration Date Visits Re quested Visits Authorized [id number] Closed 02/10/2022 2022 99 99 Encounter Details Date Type Department Care Team (Late st Contact Info) Description 07/30/2021 11:00 AM EDT Infusion Hematology Oncology at [address] [phone] Secondary malignant neoplasm of bone; [...] complaints. OBJECTIVE LAB DATA: 07/30 at [facility] reviewed and adequate for treatment today. IV ACCESS: PIV BLOOD RETURN: yes ANY S/S OF INFECTION/EXTRAVASATIONS: IV FLUSHED WITH: NS IV DISCONTINUED: yes Pre administration: Chemotherapy orders independently verified for drug name, route, and dosage per patient's height, weight and BSA by ERIK MART, PATRICIA and staff pharmacist. REACTIONS (DESCRIPTION, TIME, INTERVENTION AND EFFECTIVENESS) none ASSESSMENT Alexis was awake, alert and he tolerated treatment well. Chemo teach completed during clinic visit,reinforced arita points. PLAN Long acting morphine script renewed by MEDICAL ESTHETICIAN. Return to clinic as scheduled. Reminded to call in the meantime with any questions/concerns. documented in this encounter Plan of Treatment Upcoming Encounters Date Type Department Care Team (Late st Contact Info) Description 01/05/2024 2:30 PM EST TH Visit (TeleHealth) Hematology/Oncology at [address] [phone] Cody Frazier MD [facility] DR HEMATOLOGY [place] [address] Bea Grimes APRN [address] [place] [address] DR HEMATOLOGY AND ONCOLOGY [place], [place] [address] documented as of this encounter Visit Diagnoses [...] documented in this encounter Care Teams Sales Consultant Residential Manager Relationship Specialty Start Date End Date Arias Mast DNP PCP - General Family Medicine 02/14/21 04/02/22 documented as of this encounter
--- OUTSIDE RECORDS SUMMARY | 2023-12-29 18:21 | XMS_ITS | Encounter Summary ---
Author Organization [facility] Address [facility] [place] [address] Care Team Providers Care Volcanology Professor Name Role Phone Arias Mast DNP Primary Care Provider [phone] Encounter Details Date Type Department Care Team (Late st Contact Info) Description 10/01/2021 Notes Only Hematology/Oncology at [address] [phone] Lorraine Huerta, AIR CARRIER MAINTENANCE INSPECTOR OFFICE OF CARE MANAGEMENT Social History Tobacco [...] He is scheduling his own rides with [employer]. He is working some so he is able to manage his financial obligations. He feels as though he has enough support from others. Pt did not identify any new needs today. Offered support. Reminded pt of AIR CARRIER MAINTENANCE INSPECTOR availability and contact information. Will continue to follow for support and resources. Brief assessment Supportive Counseling documented in this encounter Plan of Treatment Upcoming Encounters Date Type Department Care Team (Late st Contact Info) Description 01/05/2024 2:30 PM EST TH Visit (TeleHealth) Hematology/Oncology at [address] [phone] Cody Frazier MD [facility] DR [place] [address] Bea Grimes APRN [address] [place] [address] DR HEMATOLOGY AND ONCOLOGY [place], [place] [id number] documented as of this encounter Visit Diagnoses Not on filedocumented in this encounter Care Teams Volcanology Professor Relationship Specialty Start Date End Date Arias Mast DNP PCP - General Family Medicine 02/14/21 04/02/22 documented as of this encounter
--- OUTSIDE RECORDS SUMMARY | 2023-12-29 18:21 | XMS_ITS | Encounter Summary ---
Author Organization [facility] Address [facility] [place] [address] Care Team Providers Care Collaborative Teacher Name Role Phone Arias Mast DNP Primary Care Provider [phone] Reason for Visit * Reason Onset Date Comments Follow-up 07/27/2021 Encounter Details Date Type Department Care Team (Late st Contact Info) Description 07/27/2021 Telephone Hematology/Oncology at [address] [phone] Trinity Thomson RN Follow-up Social [...] with questions or concerns 2. Reinforced to patient/care-supervisor hard candy to call facility 02/09 with any new/worsening signs and symptomsor concerns or questions.?? Phone number provided.?? Pt verbalized understanding and is in agreement with plan. ? documented in this encounter Plan of Treatment Upcoming Encounters Date Type Department Care Team (Late st Contact Info) Description 01/05/2024 2:30 PM EST TH Visit (TeleHealth) Hematology/Oncology at [address] [phone] Cody Frazier MD [facility] [place] [address] Bea Grimes APRN [address] [place] [address] [place] [address] documented as of this encounter Visit Diagnoses Not on filedocumented in this encounter Care Teams Collaborative Teacher Relationship Specialty Start Date End Date Arias Mast DNP PCP - General Family Medicine 02/14/21 04/02/22 documented as of this encounter
--- OUTSIDE RECORDS SUMMARY | 2023-12-29 18:21 | XMS_ITS | Encounter Summary ---
Author Organization [facility] Address [facility] [place] [address] Care Team Providers Care Lamp Developer Name Role Phone Arias Mast DNP Primary Care Provider [phone] Reason for Visit * Reason Comments Chemotherapy [...] (Paraplatin) AUC = 5 Cody Frazier MD [address] [place] [address] [place] [address] Cody Frazier MD [address] [place] [address] [place] [address] Referral ID Status Reason Start Date Expiration Date Visits Re quested Visits Authorized [id number] Closed 02/10/2022 2022 99 99 Encounter Details Date Type Department Care Team (Late st Contact Info) Description 09/24/2021 11:30 AM EDT Infusion Hematology Oncology at [address] [phone] Secondary malignant neoplasm of bone; Medication management; [...] and BSA by Melina Grant, RN & [facility] onsite. REACTIONS (DESCRIPTION, TIME, INTERVENTION AND EFFECTIVENESS) none ASSESSMENT Cornelius was awake, alert and tolerated treatment well. PLAN Return to clinic per routine. documented in this encounter Plan of Treatment Upcoming Encounters Date Type Department Care Team (Late st Contact Info) Description 01/05/2024 2:30 PM EST TH Visit (TeleHealth) Hematology/Oncology at [address] [phone] Cody Frazier MD [facility] DR [place] [address] Bea Grimes APRN [address] [place] [address] DR HEMATOLOGY AND ONCOLOGY [place], [place] [id number] documented as of this encounter Visit Diagnoses [...] 2 minutes is a recommendation from the nuisance wildlife control operator. Administer prior to chemotherapy., Routine Given 09/24/2021 [...] mL/hr documented in this encounter Care Teams Lamp Developer Relationship Specialty Start Date End Date Arias Mast DNP PCP - General Family Medicine 02/14/21 04/02/22 documented as of this encounter
--- OUTSIDE RECORDS SUMMARY | 2023-12-29 18:21 | XMS_ITS | Encounter Summary ---
Author Organization [facility] Address [facility] [place] [address] Care Team Providers Care Tree Tapping Laborer Name Role Phone Arias Mast DNP Primary Care Provider [phone] Encounter Details Date Type Department Care Team (Late st Contact Info) Description 10/11/2021 9:40 PM EDT Ancillary Procedure Radiology Library at [facility] [place] [phone] Cody Frazier MD [facility] HEMATOLOGY [place] [address] Social History Tobacco Use Types Packs/Day Years [...] EST TH Visit (TeleHealth) Hematology/Oncology at [address] [phone] Cody Frazier MD [facility] DR HEMATOLOGY [place] [address] Bea Grimes APRN [address] [place] [address] DR HEMATOLOGY AND ONCOLOGY [place], [place] [id number] documented as of this encounter Procedures Procedure Name Priority Date/Time Associated Diagnosis Comments FILM LIBRARY STORAGE ONLY CT CHEST Routine 10/11/2021 9:35 PM EDT documented in this encounter Results * Film Library- Storage Only CT Chest (10/11/2021 9:35 PM EDT) Narrative [facility] - 10/11/2021 9:35 PM EDT This exam is auto-finalizing. It's purpose is for storage only. Cody Frazier MD IMG FILM LIBRARY ORD ERABLES [place], [place] documented in this encounter Visit Diagnoses Not on filedocumented in this encounter Care Teams Tree Tapping Laborer Relationship Specialty Start Date End Date Arias Mast DNP PCP - General Family Medicine 02/14/21 04/02/22 documented as of this encounter
--- OUTSIDE RECORDS SUMMARY | 2023-12-29 18:21 | XMS_ITS | Encounter Summary ---
Author Organization [facility] Address [facility] [place] [address] Care Team Providers Care Realtime Court Reporter Name Role Phone Arias Mast DNP Primary Care Provider [phone] Encounter Details Date Type Department Care Team (Late st Contact Info) Description 10/22/2021 10:30 AM EDT Office Visit Hematology/Oncology at [address] [phone] Milton Frazeir MD [facility] DR [place] [address] Teena Nieto APRN [facility] [place] [address] Malignant neoplasm of lower lobe, right bronchus [...] were not included. Hematology & Medical Oncology [address] [phone] Alexis Pelayo is being seen for the evaluation of lung cancer. Assessment & Plan: Alexis Pelayo is a 51 y.o. male patient with a past medical history significant for COPD, a 83-czwi-wtby smoking history, chronic migraine headaches diagnosed with [...] Nieto APRN 10/22/2021 Medical Oncology & Hematology [facility] CC: HPI/Interval History/Subjective: Last seen 10/01/21 Overall [...] Noted more migraines since he ran outof [email or web address] . Appetite excellent. Bowels moving ok - [...] Social History/Support Network: Home situation: From the [place] originally. Came up here because of family Has a sister Kristine Br[place] who lives [place] who is his DPOA. 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 [...] a past medical history significant forCOPD, a 03-ytrj-hiuo smoking history, chronic migraine headaches who was [...] 1.8 total bilirubin 0.1 AST 11 ALK Florien 84 ALT 18 albumin 3.6 up from [...] disease with some response to treatment noted 7 CT (I reviewed the imaging personally which [...] EST TH Visit (TeleHealth) Hematology/Oncology at [address] [phone] Milton Frazier MD [facility] DR [place] [address] Bea Grimes APRN [address] [place] [address] DR HEMATOLOGY [place] [address] documented as of this encounter Visit Diagnoses Diagnosis Malignant neoplasm of lower lobe, right bronchus or lung Medication management Encounter for long-term (current) use of other medications Chronic thoracic back pain, unspecified back pain laterality Chronic neck pain Cervicalgia documented in this encounter Care Teams Realtime Court Reporter Relationship Specialty Start Date End Date Arias Mast DNP PCP - General Family Medicine 02/14/21 04/02/22 documented as of this encounter
--- OUTSIDE RECORDS SUMMARY | 2023-12-29 18:21 | XMS_ITS | Encounter Summary ---
Author Organization [facility] Address [facility] [place] [address] Care Team Providers Care Dietetics Professor Name Role Phone Arias Mast DNP Primary Care Provider [phone] Encounter Details Date Type Department Care Team (Late st Contact Info) Description 08/06/2021 9:00 AM EDT Office Visit Hematology/Oncology at [address] [phone] Cody Frazier MD [facility] DR HEMATOLOGY [place] [address] Teena Nieto APRN [facility] DR HEMATOLOGY [place] [address] Malignant neoplasm of lower lobe, right bronchus [...] were not included. Hematology & Medical Oncology [address] [address] Alexis Pelayo is being seen for the evaluation of lung cancer. Assessment & Plan: Alexis Pelayo is a 50 y.o. male patient with a past medical history significant for COPD, a 84-tlen-femf smoking history, chronic migraine headaches diagnosed with [...] week - Restage with CT scan at [facility] the week of - C3 on 09/03/21 - Palliative care referral eventually if pain worsens - SW already engaged Cody Frazier MD, MS 08/06/2021 Medical Oncology & Hematology [facility] CC: IGNACIA Mora MD HPI/Interval History/Subjective: Last [...] Social History/Support Network: Home situation: From the [place] originally. Came up here because of family Has a sister Kristine Brant[place] who lives [place] who is his DPOA. 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 And also [...] a past medical history significant forCOPD, a 12-yasg-ioda smoking history, chronic migraine headaches who was [...] EST TH Visit (TeleHealth) Hematology/Oncology at [address] [phone] Cody Frazier MD [facility] DR HEMATOLOGY [place] [address] Bea Grimes APRN [address] [place] [address] DR [place] [address] documented as of this encounter Visit Diagnoses Diagnosis Malignant neoplasm of lower lobe, right bronchus or lung documented in this encounter Care Teams Dietetics Professor Relationship Specialty Start Date End Date Arias Mast DNP PCP - General Family Medicine 02/14/21 04/02/22 documented as of this encounter
--- OUTSIDE RECORDS SUMMARY | 2023-12-29 18:21 | XMS_ITS | Encounter Summary ---
Author Organization [facility] Address [facility] [place] [address] Care Team Providers Care Strapping Machine Operator Name Role Phone Arias Mast DNP Primary Care Provider [phone] Reason for Visit * Reason Onset Date Comments Medication Refill 07/30/2021 Encounter Details Date Type Department Care Team (Late st Contact Info) Description 07/30/2021 Refill Hematology [place] [phone] Teena Nieto APRN [facility] DR [place] [address] Social History Tobacco Use Types Packs/Day Years [...] EST TH Visit (TeleHealth) Hematology/Oncology at [address] [phone] [facility] DR [place] [address] Bea Grimes APRN [address] [place] [address] DR HEMATOLOGY [place] [address] documented as of this encounter Visit Diagnoses Not on filedocumented in this encounter Care Teams Strapping Machine Operator Relationship Specialty Start Date End Date Arias Mast DNP PCP - General Family Medicine 02/14/21 04/02/22 documented as of this encounter
--- OUTSIDE RECORDS SUMMARY | 2023-12-29 18:21 | XMS_ITS | Encounter Summary ---
Author Organization [facility] Address [facility] [place] [address] Care Team Providers Care Home Improvement Advisor Name Role Phone Arias Mast DNP Primary Care Provider [phone] Encounter Details Date Type Department Care Team (Late st Contact Info) Description 08/20/2021 10:00 AM EDT Office Visit Hematology/Oncology at [address] [phone] Cody Frazier MD [facility] DR [place] [address] Teena Nieto APRN [facility] DR [place] [address] Malignant neoplasm of lower lobe, right bronchus [...] were not included. Hematology & Medical Oncology [address] [address] Alexis Pelayo is being seen for the evaluation of lung cancer. Assessment & Plan: Alexis Pelayo is a 50 y.o. male patient wiarcth a past medical history significant for COPD, a 20-xuef-avij smoking history, chronic migraine headaches diagnosed with [...] today - Restage with CT scan at [facility] the 19th - C3 on 09/03/21 - Palliative care referral eventually if pain worsens - SW already engaged Cody Frazier MD, MS 08/20/2021 Medical Oncology & Hematology [facility] CC: HPI/Interval History/Subjective: Last seen 08/06/2021 Tired-up [...] Social History/Support Network: Home situation: From the [place] originally. Came up here because of family Has a sister Kristine Brant[place] who lives [place] who is his DPOA. 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
--- OUTSIDE RECORDS SUMMARY | 2023-12-29 18:21 | XMS_ITS | Encounter Summary ---
Author Organization [facility] Address [facility] [place] [address] Care Team Providers Care Closet Builder Name Role Phone Arias Mast DNP Primary Care Provider [phone] Encounter Details Date Type Department Care Team (Late st Contact Info) Description 07/19/2021 12:45 PM EDT Office Visit Radiation Oncology at [address] [phone] Christopher Alva MD [address] [place] [address] [place] [address] Malignant neoplasm of lower lobe, [...] the original note were not included. [facility] Medicine Radiation Oncology Radiation Oncology On-treatment [...] Current Dose: 30 Gy in 10 fractions Survey Statistician [place] from Current Plan (minimum 30 Gy [...] EST TH Visit (TeleHealth) Hematology/Oncology at [address] [phone] Cody Frazier MD [facility] DR HEMATOLOGY [place] [address] Bea Grimes APRN [address] [place] [address] DR HEMATOLOGY [place] [address] documented as of this encounter Visit Diagnoses Diagnosis Malignant neoplasm of lower lobe, right bronchus or lung documented in this encounter Care Teams Closet Builder Relationship Specialty Start Date End Date Arias Mast DNP PCP - General Family Medicine 02/14/21 04/02/22 documented as of this encounter
--- OUTSIDE RECORDS SUMMARY | 2023-12-29 18:22 | XMS_ITS | Encounter Summary ---
Author Organization [facility] Address [facility] [place] [address] Care Team Providers Care Concrete Paving Supervisor Name Role Phone Arias Mast DNP Primary Care Provider [phone] Encounter Details Date Type Department Care Team (Latest Contact Info) Description 07/03/2021 Multidisciplinary Ca re [place] [phone] Darin Adkins MD [facility] [place] [address] Social History Tobacco Use Types Packs/Day Years [...] a hypocellular specimen. He was presented at [facility] on 06/26/21 and underwent IR guided biopsy of the R chest wall mass on 06/27/21. He saw Dr. Alva on 06/27/21 and simulation completion. Pathology report is pending as of today's [facility] presentation. MR brain was negative for [...] Section of Pulmonary & Critical Care Pager: [phone] documented in this encounter Plan of Treatment Upcoming Encounters Date Type Department Care Team (Late st Contact Info) Description 01/05/2024 2:30 PM EST TH Visit (TeleHealth) Hematology/Oncology at [address] [phone] Cody Frazier MD [facility] DR HEMATOLOGY [place] [address] Bea Grimes APRN [address] [place] [address] DR [place] [address] documented as of this encounter Visit Diagnoses Not on filedocumented in this encounter Care Teams Concrete Paving Supervisor Relationship Specialty Start Date End Date Arias Mast DNP PCP - General Family Medicine 02/14/21 04/02/22 documented as of this encounter
--- OUTSIDE RECORDS SUMMARY | 2023-12-29 18:22 | XMS_ITS | Encounter Summary ---
Author Organization [facility] Address [facility] [place] [address] Care Team Providers Care Boiler House Mechanic Name Role Phone Arias Mast DNP Primary Care Provider [phone] Encounter Details Date Type Department Care Team (Late st Contact Info) Description 06/21/2021 Notes Only Radiology at [facility] [place] [phone] Román Mcclellan, [facility] [place] [address] Social History Tobacco Use Types Packs/Day Years [...] for histopathologic diagnosis. IR History: None at [facility]. Antiplatelets: None. Anticoagulants: None. Recent Laboratories: ??? [...] EST TH Visit (TeleHealth) Hematology/Oncology at [address] [phone] Cody Frazier MD [facility] DR [place] [address] Bea Grimes APRN [address] [place] [address] DR HEMATOLOGY AND ONCOLOGY [place], [place] [address] documented as of this encounter Visit Diagnoses Not on filedocumented in this encounter Care Teams Boiler House Mechanic Relationship Specialty Start Date End Date Arias Mast DNP PCP - General Family Medicine 02/14/21 04/02/22 documented as of this encounter
--- OUTSIDE RECORDS SUMMARY | 2023-12-29 18:22 | XMS_ITS | Encounter Summary ---
Author Organization [facility] Address [facility] [place] [address] Care Team Providers Care Program Aide Name Role Phone Arias Mast DNP Primary Care Provider [phone] Reason for Referral * Consultation (Routine) - Closed Specialty Diagnoses / Procedures Referred By Kristan merlos Referred To Contact Radiation Oncology Diagnoses Primary malignant neoplasm of right lower lobe of lung Procedures Simulation for Radiation Therapy Planning Christopher Alva MD [address] [place] [address] [place] [address] [facility] Rad Onc Office [address] [place] [phone] Referral ID Status Reason Start Date Expiration Date V isits Requested Visits Authorized [id number] Closed Consult, Test & Treat 06/27/2021 09/09/2021 11 11 Encounter Details Date Type Department Care Team (Late st Contact Info) Description 06/22/2021 Orders Only Radiation Oncology at [address] [phone] Christopher Alva MD [address] [place] [address] [place] [address] Primary malignant neoplasm of right [...] slept in a alf (including now)? No 02/14/2021 Sex and Gender Information Value Date Recorded Sex Assigned at Not on file Gender Identity Not on file Sexual Orientation Not on file documented as of this encounter Plan of Treatment Upcoming Encounters Date Type Department Care Team (Late st Contact Info) Description 01/05/2024 2:30 PM EST TH Visit (TeleHealth) Hematology/Oncology at [address] [phone] Cody Frazier MD [facility] DR HEMATOLOGY AND ONCOLOGY [place], [place] [id number] Bea Grimes APRN [address] [place] [address] DR HEMATOLOGY AND ONCOLOGY [place], [place] [id number] Scheduled Orders Name Type Priority Associated Diagnoses Orde r Schedule Simulation for Radiation Therapy Planning Procedures Routine Primary malignant neoplasm of right lower lobe of lung Ordered: 06/22/2021 documented as of this encounter Visit Diagnoses Diagnosis Primary malignant neoplasm of right lower lobe of lung Malignant neoplasm of lower lobe, bronchus, or lung documented in this encounter Care Teams Program Aide Relationship Specialty Start Date End Date Arias Mats DNP PCP - General Family Medicine 02/14/21 04/02/22 documented as of this encounter
--- OUTSIDE RECORDS SUMMARY | 2023-12-29 18:22 | XMS_ITS | Encounter Summary ---
Author Organization [facility] Address [facility] [place] [address] Care Team Providers Care Histologist Technologist Name Role Phone Arias Mast DNP Primary Care Provider [phone] Encounter Details Date Type Department Care Team (Latest Contact Info) Description 06/27/2021 3:30 PM EDT Ancillary Procedure Radiation Oncology at [address] [phone] Christopher Alva MD [address] [place] [address] [place] [address] Malignant neoplasm of lower lobe, [...] PM EST TH Visit (TeleHealth) Hematology/Oncology at [address] [phone] Cody Frazier MD [facility] DR HEMATOLOGY [place] [address] Bea Grimes APRN [address] [place] [address] [place] [address] Pending Results Name Type Priority Associated Diagnoses Date /Time Film Library Radiation Oncology Studies Imaging Storage Only Routine Malignant neoplasm of lower lobe, right bronchus or lung 06/27/2021 4:16 PM EDT documented as of this encounter Visit Diagnoses Diagnosis Malignant neoplasm of lower lobe, right bronchus or lung documented in this encounter Care Teams Histologist Technologist Relationship Specialty Start Date End Date Arias Mast DNP PCP - General Family Medicine 02/14/21 04/02/22 documented as of this encounter
--- OUTSIDE RECORDS SUMMARY | 2023-12-29 18:22 | XMS_ITS | Encounter Summary ---
Author Organization [facility] Address [facility] [place] [address] Care Team Providers Care Bottled Beverage Inspector Name Role Phone Arias Mast DNP Primary Care Provider [phone] Encounter Details Date Type Department Care Team (Latest Contact Info) Description 02/14/2021 1:56 PM EST - 02/14/2021 11:59 PM EST Hospital Encounter Hematology and Oncology at [facility] [place] [phone] Leukocytosis, unspecified type; Thrombocytosis; Hypertension, unspecified type; [...] slept in a chcf (including now)? No 02/14/2021 Sex and Gender [...] PM EST TH Visit (TeleHealth) Hematology/Oncology at [address] [phone] Cody Frazier MD [facility] DR [place] [address] Bea Grimes SHORT ORDER COOK [address] [place] [address] DR HEMATOLOGY AND ONCOLOGY [place], [place] [phone] documented as of this encounter Procedures Procedure [...] Lab Ginna Guillen MD CHEMISTRY ORDERA BLES [facility] [place] [address] * (ABNORMAL) Differential, Automated (02/14/2021 2:04 PM EST) Neutrophil % 77.0 % [facility] Neutrophil Absolute 10.07(H) 1.70 - 6.10 x10(3)/mc L [facility] Lymph % 12.7 % [facility] Lymphocytes Abs 1.7 0.9 - 3.2 x10(3)/mc L [facility] Monocyte % 7.7 % [facility] Monocyte Abs 1.0(H) 0.3 - 0.9 x10(3)/mc L [facility] Eos % 1.0 % [facility] Eosinophils Abs 0.1 0.0 - 0.4 x10(3)/mc L [facility] Basophil % 1.1 % [facility] Baso Absolute 0.2(H) 0.0 - 0.1 x10(3)/[facility] LABORAT[facility] Immature Gran % 0.50 % [facility] Comment: Immature granulocytes(IG's)percentage and absolute count will include metamyelocytes, myelocytes, and promyelocytes. Blood smears from CBCs yielding IG's will be scanned manually for concordance. If this scan disagrees with the automated IG or if promyelocytes are noted, a manual differential will be performed. Immature Gran Absolute 0.07(H) 0.00 - 0.04 x10(3)/[facility] LABORATORY Blood 02/14/2021 2:04 PM EST 02/14/2021 2:44 PM EST Narrative Resulting Agency Comment Spec In Lab Ginna Guillen MD HEMATOLOGY ORDER ENOC [facility] [address] * (ABNORMAL) Hemogram (02/14/2021 2:04 PM EST) White Blood Cell 13.1(H) 4.0 - 9.5 x10(3)/[facility] LABORATORY Red Blood Cell 5.25 4.58 - 5.54 x10(6)/[facility]ORY Hemoglobin 15.9 13.7 - 16.5 g/dL [facility] Hematocrit 48.8(H) 40.5 - 48.5 % [facility] Mean Cell Volume 93.0 82.9 - 93.1 fL [facility] Mean Cell Hemoglobin 30.3 27.5 - 32.1 pg [facility] Mean Cell Hemoglobin Concentration 32.6 32.0 - 35.7 g/dL [facility] Platelet 452(H) 145 - 357 x10(3)/[facility] LABORATORY RDW Standard Deviation 43.4 36.0 - 45.0 fL [facility] RDW coefficient of variation 12.6 11.4 - 13.8 % [facility] Mean Platelet Volume 9.8 7.6 - 12.9 fL [facility] NRBC% auto 0.0 % [facility] NRBC Absolute 0.000 0.000 - 0.000 x10(3)/mc L [facility] Blood 02/14/2021 2:04 PM EST 02/14/2021 2:44 PM EST Narrative Resulting Agency Comment Spec In Lab Ginna Guillen MD HEMATOLOGY ORDER ENOC [facility] [place] [address] * JAK2 with reflex to Myeloid Panel [...] [facility] [facility] [employer] ([facility]) Laboratory at [facility]. It has not been cleared or approved by the FDA. The laboratory is regulated under CLIA as qualified to perform high-complexity testing. This test is used for clinical purposes. It should not be regarded as investigational or for research. [facility] Comment: [VERIFIED DATE]02.16.21 Verified By:Wilda PhD, Guille Bynum Director, Molecular Pathology (Electronic Signature) Blood 02/14/2021 2:04 PM EST 02/15/2021 8:11 AM EST Narrative Resulting Agency Comment Spec In Lab Ginna Guillen MD HEMATOLOGY ORDER ENOC Performing Organization Address [facility]/ZIP Co de Phone Number [facility] [address] * (ABNORMAL) Sedimentation rate (02/14/2021 2:04 PM EST) Sedimentation Rate Automated 31(H) 2 - 28 mm/hr [facility] Comment: Effective January 20, 2019 new capillary photometric technology has resulted in a change in reference ranges. It is recommended that each ESR result be reviewed with its own age appropriate reference range. Blood 02/14/2021 2:04 PM EST 02/14/2021 2:44 PM EST Narrative Resulting Agency Comment Spec In Lab Ginna Guillen MD HEMATOLOGY ORDER ENOC Performing Organization Address City/[facility]/ZIP Co de Phone Number [facility] [place] [address] * (ABNORMAL) CRP, acute inflammation (02/14/2021 2:04 PM EST) C-Reactive Protein 6.8(H) <=4.9 mg/L [facility] Blood 02/14/2021 2:04 PM EST 02/14/2021 2:44 PM EST Narrative Resulting Agency Comment Spec In Lab Ginna Guillen MD CHEMISTRY ORDERA BLES Performing Organization Address City/State/[facility] Co de Phone Number [facility] [place] [phone] documented in this encounter Visit Diagnoses Diagnosis Leukocytosis, unspecified type Thrombocytosis Essential thrombocythemia Hypertension, unspecified type Chronic thoracic back pain, unspecified back pain laterality documented in this encounter Care Teams Bottled Beverage Inspector Relationship Specialty Start Date End Date Arias Mast DNP PCP - General Family Medicine 02/14/21 04/02/22 documented as of this encounter
--- OUTSIDE RECORDS SUMMARY | 2023-12-29 18:22 | XMS_ITS | Encounter Summary ---
Author Organization [facility] Address [facility] [place] [address] Care Team Providers Care Receptionist Name Role Phone Arias Mast DNP Primary Care Provider [phone] Encounter Details Date Type Department Care Team (Late st Contact Info) Description 06/27/2021 4:30 PM EDT Infusion Hematology Oncology at [address] [phone] Chronic thoracic back pain, unspecified [...] slept in a snf (including now)? No 02/14/2021 Sex and Gender [...] biopsy of lung mass this AM at [facility]. He ran out of percocet yesterday and he is anxious thathe has found no one to refill it. Dr Ross originally prescribed it, however now the expectation is for his PCP to take this over and she is on vacation. Dr Alva informed . He asked nurse to call PCP. I called PCP's office [phone] and spoke to Sherley. she states that Arias Mast APRN is on Vacation until Friday ,07/02 and they currently don't have any records from [facility] on this patient yet. They do not [...] EST TH Visit (TeleHealth) Hematology/Oncology at [address] [phone] Cody Frazier MD [facility] DR [place] [address] Bea Grimes APRN [address] [place] [address] DR [place] [address] documented as of this encounter Visit Diagnoses [...] mg documented in this encounter Care Teams Receptionist Relationship Specialty Start Date End Date Arias Mast DNP PCP - General Family Medicine 02/14/21 04/02/22 documented as of this encounter
--- OUTSIDE RECORDS SUMMARY | 2023-12-29 18:22 | XMS_ITS | Encounter Summary ---
Author Organization [facility] Address [facility] [place] [address] Care Team Providers Care Load Checker Name Role Phone Arias Mast DNP Primary Care Provider [phone] Reason for Visit * Reason Onset Date Comments Other 07/04/2021 transportation Encounter Details Date Type Department Care Team (Late st Contact Info) Description 07/04/2021 Telephone Radiation Oncology at [address] [phone] Lorraine Huerta, COMMERCIAL GREEN BUILDING DESIGNER OFFICE OF CARE MANAGEMENT Other (transportation) Social [...] form and accompanying letter. Faxed information to [facility]. TC REJI to confirm form and letter were faxed to [facility]. Care Coordination Transportation resources documented in this encounter Plan of Treatment Upcoming Encounters Date Type Department Care Team (Late st Contact Info) Description 01/05/2024 2:30 PM EST TH Visit (TeleHealth) Hematology/Oncology at [address] [phone] Cody Frazier MD [facility] DR HEMATOLOGY [place] [address] Bea Grimes APRN [address] [place] [address] DR HEMATOLOGY AND ONCOLOGY [place], [place] [phone] documented as of this encounter Visit Diagnoses Not on filedocumented in this encounter Care Teams Load Checker Relationship Specialty Start Date End Date Arias Mast DNP PCP - General Family Medicine 02/14/21 04/02/22 documented as of this encounter
--- OUTSIDE RECORDS SUMMARY | 2023-12-29 18:22 | XMS_ITS | Encounter Summary ---
Author Organization [facility] Address [facility] [place] [address] Care Team Providers Care Animal Ride Attendant Name Role Phone Arias Mast DNP Primary Care Provider [phone] Encounter Details Date Type Department Care Team (Late st Contact Info) Description 07/05/2021 4:00 PM EDT Office Visit Radiation Oncology at [address] [phone] Christopher Alva MD [address] [place] [address] [place] [address] Malignant neoplasm of lower lobe, [...] slept in a detention (including now)? No 02/14/2021 Sex and Gender [...] from the original note were not included. [facility] Medicine Radiation Oncology Radiation Oncology [...] Current Dose: 3 Gy in 1 fraction Sock Turner Spaulding from Current Plan (minimum 30 Gy isodose volume shown): Interval Clinical Course General: No changes since last seen. Started today. Pain: Pain score today is 4/10 in his chest wall. He is currently taking MSContin 30mg qhs and [id number] 3-4 x/day. He has enough of the [...] placed in this encounter. ??? [employer] (NCI) Comprehensive Cancer Center ??? [employer] Commission on Cancer (ACS Case) Accredited Cancer Program ??? [employer] (ACR) Accredited Radiation Oncology Program documented in this encounter Plan of Treatment Upcoming Encounters Date Type Department Care Team (Late st Contact Info) Description 01/05/2024 2:30 PM EST TH Visit (TeleHealth) Hematology/Oncology at [address] [phone] Cody Frazier MD [facility] DR HEMATOLOGY [place] [address] Bea Grimes APRN [address] [place] [address] DR [place]EM[place]Y [place] [address] documented as of this encounter Visit Diagnoses Diagnosis Malignant neoplasm of lower lobe, right bronchus or lung documented in this encounter Care Teams Animal Ride Attendant Relationship Specialty Start Date End Date Arias Mast DNP PCP - General Family Medicine 02/14/21 04/02/22 documented as of this encounter
--- OUTSIDE RECORDS SUMMARY | 2023-12-29 18:22 | XMS_ITS | Clinical Summary ---
Author Organization [facility] Address [address] [place] [address] Care Team Providers Care Bank Analyst Name Role Phone Unavailable Primary Care Provider Unavailabl e Social History Tobacco Use Types Packs/Day Years Used Date Smoking Tobacco: Never Assessed Sex and Gender Information Value Date Recorded Sex Assigned at Not on file Legal Sex Male 19:16 EDT Gender Identity Not on file Sexual Orientation Not on file Plan of Treatment Health Maintenance Due Date Last Done Comments Hepatitis C Screen 1970 Hepatitis B Vaccine (1 of 3 - 19+ 3-dose series) 10/08 COVID-19 Vaccine ( season) 2023
--- OUTSIDE RECORDS SUMMARY | 2023-12-29 18:22 | XMS_ITS | Encounter Summary ---
Author Organization [facility] Address [facility] [place] [address] Care Team Providers Care Cable Systems Installer Name Role Phone Arias Mast DNP Primary Care Provider [phone] Reason for Visit * Reason Onset Date Comments Other 06/26/2021 Regarding pain m gt and question about biopsy Encounter Details Date Type Department Care Team (Late st Contact Info) Description 06/26/2021 Telephone Pulmonology at [facility] [place] [phone] Meryl Ozuna, RN Other (Regarding pain mgt [...] received a message from Anna Frost at [facility] stating,Hi there, Alexis will be coming to see us in [facility] for radiation treatment. When I called to schedule him outfor his staging, he let me know that he is in incredible pain and was wondering if he could change the frequency/dosage for the oxyCODONE- acetaminophen (Percocet) 5-325 mg Tablet [[id number]] order Dr. Valdivia put in for him [...] you please give him a call at [phone]? I have sent a message to Dr. [...] MANUEL Ventura, RN Department of Pulmonary 5C, [facility] Pager: [phone] documented in this encounter Plan of Treatment Upcoming Encounters Date Type Department Care Team (Late st Contact Info) Description 01/05/2024 2:30 PM EST TH Visit (TeleHealth) Hematology/Oncology at [address] [phone] Cody Frazier MD [facility] DR HEMATOLOGY [place] [address] Bea Grimes APRN [address] [place] [address] DR [place] [address] documented as of this encounter Visit Diagnoses Not on filedocumented in this encounter Care Teams Cable Systems Installer Relationship Specialty Start Date End Date Arias Mast DNP PCP - General Family Medicine 02/14/21 04/02/22 documented as of this encounter
--- OUTSIDE RECORDS SUMMARY | 2023-12-29 18:22 | XMS_ITS | Encounter Summary ---
Author Organization [facility] Address [facility] [place] [address] Care Team Providers Care Mold Holder Name Role Phone Arias Mast DNP Primary Care Provider [phone] Reason for Visit * Consultation (Routine) - Closed Specialty Diagnoses / Procedures Referred By Kristan merlos Referred To Contact Radiation Oncology Diagnoses Primary malignant neoplasm of right lower lobe of lung Procedures Simulation for Radiation Therapy Planning Christopher Alva MD [address] [place] [address] [place] [address] [facility] Rad Onc Office [address] [place] [phone] Referral ID Status Reason Start Date Expiration Date V isits Requested Visits Authorized [id number] Closed Consult, Test & Treat 06/27/2021 09/09/2021 11 11 Encounter Details Date Type Department Care Team (Late st Contact Info) Description 06/27/2021 3:30 PM EDT Ancillary Appointment Radiation Oncology at [address] [phone] Christopher Alva MD [address] [place] [address] [place] [address] Social History Tobacco Use Types [...] EST TH Visit (TeleHealth) Hematology/Oncology at [address] [phone] Cody Frazier MD [facility] [place] [address] Bea Grimes APRN [address] [place] [address] DR HEMATOLOGY AND ONCOLOGY [place], [place] [phone] Scheduled Orders Name Type Priority Associated Diagnoses Orde r Schedule Simulation for Radiation Therapy Planning Procedures Routine Primary malignant neoplasm of right lower lobe of lung Ordered: 06/22/2021 documented as of this encounter Visit Diagnoses Not on filedocumented in this encounter Care Teams Mold Holder Relationship Specialty Start Date End Date Arias Mast DNP PCP - General Family Medicine 02/14/21 2 documented as of this encounter
--- OUTSIDE RECORDS SUMMARY | 2023-12-29 18:22 | XMS_ITS | Encounter Summary ---
Author Organization [facility] Address [facility] [place] [address] Care Team Providers Care Service Engine Repairer Name Role Phone KeziaArias araujo Anderw KOENIG Primary Care Provider [phone] Reason for Visit * Reason Comments Advice Only * Consultation (Routine) - Closed Specialty Diagnoses / Procedures Referred By Kristan merlos Referred To Contact Hematology and Oncology Diagnoses Essential (hemorrhagic) thrombocythemia Arias Mast, ARYA [address] [place] [address] [facility] [address] [place] [address] Referral ID Status Reason Start Date Expiration Date V isits Requested Visits Authorized [id number] Closed Consult, Test & Treat Connection Center PCP Updated and/or Approved 01/23/2021 07/24/2021 6 6 Encounter Details Date Type Department Care Team (Late st Contact Info) Description 02/14/2021 1:00 PM EST Office Visit Hematology [place] [address] Ginna Guillen MD [facility] DR HEMATOLOGY [place] [address] Marce Ward MD [facility] HEMATOLOGY/[place] [address] Leukocytosis, unspecified type; Thrombocytosis; Hypertension, [...] PERSONAL and SOCIAL HISTORY ?? Lives in: [facility] ?? 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 ?? ETOH: occasional ?? Smoking: smokes 10 [...] Will get CT report dated 01/23/21 from [facility]. - CBC, JAK2 with reflex to myeloid [...] this patient's situation further. Ginna Wallis MD [facility] CC: IGNACIA Mora Logan Dege documented in this encounter Plan of Treatment Upcoming Encounters Date Type Department Care Team (Late st Contact Info) Description 01/05/2024 2:30 PM EST TH Visit (TeleHealth) Hematology/Oncology at [address] [phone] Cody Frazier MD [facility] DR HEMATOLOGY [place] [address] Bea Grimes [address] HEMATOLOGY AND ONCOLOGY [place], [place] [phone] documented as of this encounter Results * (ABNORMAL) CRP, acute inflammation (02/14/2021 2:04 PM EST) C-Reactive Protein 6.8(H) <=4.9 mg/L [facility] Blood 02/14/2021 2:04 PM EST 02/14/2021 2:44 PM EST Narrative Resulting Agency Comment Spec In Lab Ginna Guillen MD CHEMISTRY ORDERA BLES [facility] [place] [address] * (ABNORMAL) Sedimentation rate (02/14/2021 2:04 PM EST) Sedimentation Rate Automated 31(H) 2 - 28 mm/hr [facility] Comment: Effective January 20, 2019 new capillary photometric technology has resulted in a change in reference ranges. It is recommended that each ESR result be reviewed with its own age appropriate reference range. Blood 02/14/2021 2:04 PM EST 02/14/2021 2:44 PM EST Narrative Resulting Agency Comment Spec In Lab Ginna Guillen MD HEMATOLOGY ORDER ENOC [facility] [place] [address] * JAK2 with reflex to Myeloid Panel [...] [facility] [employer] (CG[employer]) Laboratory at [facility]. It has not been cleared or approved by the FDA. The laboratory is regulated under CLIA as qualified to perform high-complexity testing. This test is used for clinical purposes. It should not be regarded as investigational or for research. [facility] Comment: [VERIFIED DATE]02.16.21 Verified By:Wilda PhD, Guille Bynum Director, Molecular Pathology (Electronic Signature) Blood 02/14/2021 2:04 PM EST 02/15/2021 8:11 AM EST Narrative Resulting Agency Comment Spec In Lab Ginna Guillen MD HEMATOLOGY ORDER ENOC Performing Organization Address City/State/[facility] Co de Phone Number [facility] [place] [address] documented in this encounter Visit Diagnoses Diagnosis Leukocytosis, unspecified type Thrombocytosis Essential thrombocythemia Hypertension, unspecified type Chronic thoracic back pain, unspecified back pain laterality documented in this encounter Care Teams Service Engine Repairer Relationship Specialty Start Date End Date Arias Mast DNP PCP - General Family Medicine 02/14/21 04/02/22 documented as of this encounter
--- OUTSIDE RECORDS SUMMARY | 2023-12-29 18:22 | XMS_ITS | Encounter Summary ---
Author Organization [facility] Address [facility] [place] [address] Care Team Providers Care Registered Nurse Renal Name Role Phone Arias Mast DNP Primary Care Provider [phone] Reason for Visit * Consultation (Routine) - Closed Specialty Diagnoses / Procedures Referred By Kristan merlos Referred To Contact Radiation Oncology Diagnoses Mass of lower lobe of right lung Román Valdivia MD [facility] [place] [address] St[facility] Rad Onc Office [address] [place] [phone] Referral ID Status Reason Start Date Expiration Date V isits Requested Visits Authorized [id number] Closed Consult, Test & Treat 06/21/2021 06/21/2022 1 1 Encounter Details Date Type Department Care Team (Late st Contact Info) Description 06/27/2021 2:30 PM EDT Office Visit Radiation Oncology at [address] [phone] Christopher Alva MD [address] [place] [address] [place] [address] Lung mass Social History Tobacco [...] at the next scheduled meeting of the [facility] ([facility]) Lung Tumor Board, on Friday. The tumor [...] you by then, please do call me guidance secretary here at [phone], or you can reach me directly through the [facility] patient portal. Mapping scan to plan your [...] side effects of treatment aswell as possible buttermilk drier operator (late, permanent) side effects of radiation treatment. If they occur, short term side effects may include fatigue, cough or a skin reaction. group home side effects may include permanent damage to the lungs or darkening of skin. Please do not hesitate to call me at [phone] with any other questions or concerns you have. IfI am not here, one of our radiation oncology nurses can assist you or help you get in touch with me. A Radiation Oncology doctor is also timber poisoner after our normal hours and on weekends for urgent questions or concerns related to radiation treatments that can not wait until normal business hours. To reach the on-call doctor after-hours, just call and have the computed tomography scanner operator page the Radiation Oncologist timber poisoner. And, as always, if you experience any life-threatening emergencies which any include the following,you need to seek emergency care immediately by calling 318: 1. Sudden and unexpected breathing difficulty without any exertion 2. Sudden onset of chest pain 3. Sudden onset of severe pain or uncontrolled pain 4. Sudden onset of severe weakness and/or unable to walk 5. Sudden new onset of a seizure 6. Fall resulting in injury 7. Uncontrollable bleeding Christopher Malloy, MD Bilingual Office Assistantpatient office rep Radiation Oncology [facility] documented in this encounter Progress Notes * Christopher Alva MD - 06/27/2021 2:30 PM EDT Images from the original note were not included. 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 Has sister in [place] that talks to him over phone. Has a neighbor downstairs that is a friend. His boss usually brings him to his job. Barriers to treatment: none discussed today Referrals/Interventions: grain i farmworker visit on per routine, today RADIATION SPECIFIC TEACHING:Will provide the following information on day [facility] Radiation Therapy and You Site specific teaching : Other: PLAN: Per Dr Alva documented in this encounter Plan of Treatment Upcoming Encounters Date Type Department Care Team (Late st Contact Info) Description 01/05/2024 2:30 PM EST TH Visit (TeleHealth) Hematology/Oncology at [address] [phone] Cody Frazier MD [facility] DR [place] [address] Bea Grimes APRN [address] [place] [address] [place] [address] documented as of this encounter Visit Diagnoses Diagnosis Lung mass Swelling, mass, or lump in chest documented in this encounter Care Teams Registered Nurse Renal Relationship Specialty Start Date End Date Arias Mast DNP PCP - General Family Medicine 02/14/21 04/02/22 documented as of this encounter
--- OUTSIDE RECORDS SUMMARY | 2023-12-29 18:22 | XMS_ITS | Encounter Summary ---
Author Organization [facility] Address [facility] [place] [address] Care Team Providers Care Senior Clerk Name Role Phone Arias Mast DNP Primary Care Provider [phone] Reason for Visit * Reason Onset Date Comments Other 07/03/2021 transportation Encounter Details Date Type Department Care Team (Late st Contact Info) Description 07/03/2021 Telephone Radiation Oncology at [address] [phone] Lorraine Huerta, SCREENING UNIT REGISTERED NURSE OFFICE OF CARE MANAGEMENT Other (transportation) [...] slept in a halfway (including now)? No 02/14/2021 Sex and Gender Information Value Date Recorded Sex Assigned at Not on file Gender Identity Not on file Sexual Orientation Not on file documented as of this encounter Miscellaneous Notes * Telephone Encounter - Lorraine Huerta MSW - 07/03/2021 8:55 AM EDT Call from [facility] requesting pt's provider complete a Public Transportation Medical Exemption Application. Pt lives close to a bus stop and he needs to apply for the exemption so he can have a private ups driver pick him up at his residence. TC pt to discuss. Pt reports he will use [facility] for medical transportation. He reports he is unable to walk any distanceand has difficulty climbing stairs. He experiences shortness of breath, coughing and pain as a result. He is agreeable to apply for the exemption. SCREENING UNIT REGISTERED NURSE to complete form and have his provider review and sign. Will then fax to [facility]. Reason for Referral: Brief assessment of social [...] treatments. 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 He has not [...] day of RT treatments. Informed pt of SCREENING UNIT REGISTERED NURSE availability and contact information. Will follow to assess/address psychosocial needs. SINGH Rush, JAVASCRIPT WEB DEVELOPER, OSW-C Nursing Assistants Teacher [facility] documented in this encounter Plan of Treatment Upcoming Encounters Date Type Department Care Team (Late st Contact Info) Description 01/05/2024 2:30 PM EST TH Visit (TeleHealth) Hematology/Oncology at [address] [phone] Cody Frazier MD [facility] DR [place] [address] Bea Grimes APRN [address] [place] [address] [place] [address] documented as of this encounter Visit Diagnoses Not on filedocumented in this encounter Care Teams Senior Clerk Relationship Specialty Start Date End Date Arias Mast DNP PCP - General Family Medicine 02/14/21 04/02/22 documented as of this encounter
--- OUTSIDE RECORDS SUMMARY | 2023-12-29 18:22 | XMS_ITS | Encounter Summary ---
Author Organization [facility] Address [facility] [place] [address] Care Team Providers Care Dramatic Art Teacher Name Role Phone Unavailable Primary Care Provider Unavailabl e Encounter Details Date Type Department Care Team (Late Contact Info) Description 01/23/2021 Ancillary Procedure Radiology Library at [facility] [place] [address] Arias Mast, DNP [address] [facility] [place], [place] [address] Social History Tobacco Use Types Packs/Day Years [...] EST TH Visit (TeleHealth) Hematology/Oncology at [address] [phone] Cody Frazier MD [facility] DR HEMATOLOGY [place] [address] Bea Grimes APRN [address] [place] [address] DR HEMATOLOGY AND ONCOLOGY [place], [place] [phone] documented as of this encounter Procedures Procedure Name Priority Date/Time Associated Diagnosis Comments FILM LIBRARY STORAGE ONLY CT CHEST Routine 01/23/2021 12:00 AM EST documented in this encounter Results * Film Library- Storage Only CT Chest (01/23/2021 12:00 AM EST) Narrative [facility] - 02/15/2021 11:10 AM EST This exam is auto-finalizing. It's purpose is for storage only. Arias Mast [facility] IMG FILM LIBRARY OR DERABLES [place], [place] documented in this encounter Visit Diagnoses Not on filedocumented in this encounter
--- OUTSIDE RECORDS SUMMARY | 2023-12-29 18:22 | XMS_ITS | Encounter Summary ---
Author Organization [facility] Address [facility] [place] [address] Care Team Providers Care Advertising Agency Manager Name Role Phone Arias Mast DNP Primary Care Provider [phone] Encounter Details Date Type Department Care Team (Late st Contact Info) Description 07/03/2021 2:00 PM EDT TH Visit (TeleHealth) Radiation Oncology at [address] [phone] Christopher Alva MD [address] [place] [address] [place] [address] Lung mass Social History Tobacco [...] PM EST TH Visit (TeleHealth) Hematology/Oncology at [address] [phone] Cody Frazier MD [facility] DR HEMATOLOGY AND ONCOLOGY [place], [place] [phone] Bea Grimes APRN [address] [place] [address] DR HEMATOLOGY AND ONCOLOGY [place], [place] [phone] documented as of this encounter Visit Diagnoses Diagnosis Lung mass Swelling, mass, or lump in chest documented in this encounter Care Teams Advertising Agency Manager Relationship Specialty Start Date End Date Arias Mast DNP PCP - General Family Medicine 02/14/21 04/02/22 documented as of this encounter
--- OUTSIDE RECORDS SUMMARY | 2023-12-29 18:22 | XMS_ITS | Encounter Summary ---
Author Organization [facility] Address [facility] [place] [address] Care Team Providers Care Detailer School Photographs Name Role Phone Arias Mast DNP Primary Care Provider [phone] Encounter Details Date Type Department Care Team (Latest Contact Info) Description 06/26/2021 Multidisciplinary Ca [place] [phone] Mehrdad Hollingsworth APRN [facility] [place] [address] Lung mass Social History Tobacco Use Types [...] Section of Pulmonary & Critical Care Pager: [phone] documented in this encounter Miscellaneous Notes * [...] Date Type Department Care Team (Late st [facility] Info) Description 01/05/2024 2:30 PM EST TH Visit (TeleHealth) Hematology/Oncology at [address] [phone] Cody Frazier MD [facility] [place] [address] Bea Grimes [address] HEMATOLOGY AND ONCOLOGY [place], [place] [address] Scheduled Orders Name Type Priority Associated Diagnoses Orde r Schedule Fungus Culture & Calc Stain Bronchial Biopsy Microbiology Routine Lung mass Ordered: 06/27/2021 documented as of this encounter Results * Tissue culture Lung (06/27/2021 9:35 AM EDT) Tissue Culture No growth [facility] Gram Stain No Neutrophils No microorganisms seen. [facility] Lung 06/27/2021 9:35 AM EDT 06/27/2021 10:41 AM EDT Comment:Concern for metastat ic lung malignancy, sarcoma, pleural based tumor, infection Narrative Resulting Agency Comment Spec In Lab Mehrdad Hollingsworth CAR INSPECTOR MICROBIOLOGY - GEN ERAL ORDERABLES [facility] [place] [address] documented in this encounter Visit Diagnoses Diagnosis Lung mass Swelling, mass, or lump in chest documented in this encounter Care Teams Detailer School Photographs Relationship Specialty Start Date End Date Arias Mast DNP PCP - General Family Medicine 02/14/21 04/02/22 documented as of this encounter
--- OUTSIDE RECORDS SUMMARY | 2023-12-29 18:22 | XMS_ITS | Encounter Summary ---
Author Organization [facility] Address [address] [place] [address] Care Team Providers Care Healthcare Administrator Name Role Phone Unavailable Primary Care Provider Unavailabl e Encounter Details Date Type Department Care Team (Late st Contact Info) Description 01/03/2023 Lab Requisition [facility] Pathology & Laboratory Medicine - [facility] [address] [place] [address] Outr Resulting Lab, Provider Social History Tobacco [...] Antigen Detection Negative Negative 01/03/2023 19:02 EST [facility] Urine URINE / Unknown 01/02/2023 1 5:00 EST 01/03/2023 17:42 EST us Provider Outr Resulting Lab MICROBIOLOGY - GENER AL ORDERABLES Final Result [facility] [address] [place] [address] documented in this encounter Visit Diagnoses Not on filedocumented in this encounter
--- OUTSIDE RECORDS SUMMARY | 2023-12-29 18:22 | XMS_ITS | Encounter Summary ---
Author Organization Pending [facility] Address [facility] [place] [address] Care Team Providers Care Body Repairer Name Role Phone Arias Mast DNP Primary Care Provider [phone] Reason for Referral * Diagnostic Test (Routine) - Closed Specialty Diagnoses / Procedures Referred By Contac t Referred To Contact Radiology Diagnoses Lung mass Procedures MRI Brain wwo Contrast (Generic) Darin Adkins MD [facility] [place] [address] [place] [address] Referral ID Status Reason Start Date Expiration Date V isits Requested Visits Authorized [id number] Closed Specialty Service Requested 06/04/2021 12/04/2022 1 1 Reason for Visit * Diagnostic Test (Routine) - Closed Specialty Diagnoses / Procedures Referred By Contac t Referred To Contact Radiology Diagnoses Lung mass Procedures MRI Brain wwo Contrast (Generic) Darin Adkins MD [facility] [place] [address] [place] [address] Referral ID Status Reason Start Date Expiration Date V isits Requested Visits Authorized [id number] Closed Specialty Service Requested 06/04/2021 12/04/2022 1 1 Encounter Details Date Type Department Care Team (Latest Contact Info) Description 06/15/2021 7:51 AM EDT - 06/15/2021 9:43 AM EDT Hospital Encounter Radiology at [facility] [place] [place] [address] BackerDarin MD [facility] [place] [address] Lung mass Discharge Disposition: Home Social History [...] PM EST TH Visit (TeleHealth) Hematology/Oncology at [address] [phone] Cody Frazier MD [facility] DR HEMATOLOGY [place] [address] Bea Grimes APRN [address] [place] [address] DR [place]Y [place] [address] documented as of this encounter Procedures Procedure [...] have questions please contact the health career education teacher that requested your imaging first. ? Narrative [...] who have questions please contactthe health career education teacher that requested your imaging first. Darin Adkins MD IM MRI ORDERABLES documented in this encounter Visit [...] mLs documented in this encounter Care Teams Body Repairer Relationship Specialty Start Date End Date Airas Mast DNP PCP - General Family Medicine 02/14/21 04/02/22 documented as of this encounter
--- OUTSIDE RECORDS SUMMARY | 2023-12-29 18:22 | XMS_ITS | Encounter Summary ---
Author Organization [facility] Address [address] [place] [address] Care Team Providers Care Tag Machine Operator Name Role Phone Unavailable Primary Care Provider Unavailabl e Encounter Details Date Type Department Care Team (Late st Contact Info) Description 04/22/2023 Lab Requisition [facility] Pathology & Laboratory Medicine - [facility] [address] [place] [address] Outr Resulting Lab, Provider Social History Tobacco [...] 201 - 352 mg/dL 04/23/2023 9:27 EDT [facility] Blood VENOUS BLOOD / Unknown 04/22/2023 10:12 EDT 04/22/2023 16:36 EDT us Provider Outr Resulting Lab CHEMISTRY & BLOOD GA S ORDERABLES Final Result [facility] [address] [place], [place] [address] documented in this encounter Visit Diagnoses Not on filedocumented in this encounter
--- OUTSIDE RECORDS SUMMARY | 2023-12-29 18:22 | XMS_ITS | Encounter Summary ---
Author Organization [facility] Address [facility] [place] [address] Care Team Providers Care Business Information Consultant Name Role Phone Arias Mast DNP Primary Care Provider [phone] Encounter Details Date Type Department Care Team (Late st Contact Info) Description 06/29/2021 Telephone Radiation Oncology at [address] [phone] Mikal Lamb RN Social History [...] PM EDT Radiation Oncology Nurse Telephone Note [place], [place] Friday06/29/21 3:30 Clinic received PA request from [facility] pharmacy for morphine IM release. Pharmacist [...] strenuous like stairs. I called pharmacist at [facility]. She checked and confirmed that his [...] closed, the patient was instructed to call [facility] at [phone] and ask for the religion professor radiation oncologist if he has any problems over the weekend. Patient verbalized understanding. Amendment: 4:50 PM Pharmacist at [facility] called stating that his insurance made [...] PM EST TH Visit (TeleHealth) Hematology/Oncology at [address] [phone] Cody Frazier MD [facility] DR [place] [address] Bea Grimes APRN [address] [place] [address] DR [place] [address] documented as of this encounter Visit Diagnoses Not on filedocumented in this encounter Care Teams Business Information Consultant Relationship Specialty Start Date End Date Arias Mast DNP PCP - General Family Medicine 02/14/21 04/02/22 documented as of this encounter
--- OUTSIDE RECORDS SUMMARY | 2023-12-29 18:22 | XMS_ITS | Encounter Summary ---
Author Organization [facility] Address [facility] [place] [address] Care Team Providers Care Art Psychotherapist Name Role Phone Arias Mast DNP Primary Care Provider [phone] Encounter Details Date Type Department Care Team (Late st Contact Info) Description 07/03/2021 Orders Only [place]ematology [place] [address] Cody Frazier MD [facility] DR HEMATOLOGY [place] [address] Lung mass (Primary Dx) Social History Tobacco [...] EST TH Visit (TeleHealth) Hematology/Oncology at [address] [phone] Cody Frazier MD [facility] DR HEMATOLOGY [place] [address] Bea Grimes APRN [address] [place] [address] DR HEMATOLOGY AND ONCOLOGY [place], [place] [phone] documented as of this encounter Visit Diagnoses Diagnosis Lung mass- Primary Swelling, mass, or lump in chest documented in this encounter Care Teams Art Psychotherapist Relationship Specialty Start Date End Date Arias Mast DNP PCP - General Family Medicine 02/14/21 04/02/22 documented as of this encounter
--- OUTSIDE RECORDS SUMMARY | 2023-12-29 18:22 | XMS_ITS | Encounter Summary ---
Author Organization [facility] Address [facility] [place] [address] Care Team Providers Care Safety Lamp Keeper Name Role Phone Arias Mast DNP Primary Care Provider [phone] Reason for Referral * Consultation (Routine) - Closed Specialty Diagnoses / Procedures Referred By Kristan merlos Referred To Contact Radiation Oncology Diagnoses Mass of lower lobe of right lung Román Valdivia MD [facility] [place] [address] [facility] Rad Onc Office [address] [place] [phone] Referral ID Status Reason Start Date Expiration Date V isits Requested Visits Authorized [id number] Closed Consult, Test & Treat 06/21/2021 06/21/2022 1 1 * Consultation (Routine) - Closed Specialty Diagnoses / Procedures Referred By Kristan t Referred To Contact Hematology and Oncology Diagnoses Mass of lower lobe of right lung Román Valdivia MD [facility] [place] [address] [facility] Hem Onc [address] [place] [address] Referral ID Status Reason Start Date Expiration Date V isits Requested Visits Authorized [id number] Closed Consult, Test & Treat 06/21/2021 06/21/2022 1 1 * Diagnostic Test (Emergency) - Closed Specialty Diagnoses / Procedures Referred By Contac t Referred To Contact Radiology Diagnoses Mass of lower lobe of right lung Procedures IR All Biopsy Procedures Román Valdivia MD [facility] [place] [address] [facility] [place] [address] Referral ID Status Reason Start Date Expiration Date V isits Requested Visits Authorized [id number] Closed Specialty Service Requested 06/27/2021 02/09/2022 1 1 Encounter Details Date Type Department Care Team (Late st Contact Info) Description 06/21/2021 Orders [place] [address] Román Valdivia MD [facility] [place] [address] Mass of lower lobe of [...] EST TH Visit (TeleHealth) Hematology/Oncology at [address] [phone] Cody Frazier MD [facility] DR HEMATOLOGY [place] [address] Bea Grimes APRN [address] [place] [address] DR HEMATOLOGY [place] [address] Scheduled Referrals Name Type Priority Associated Diagnoses [...] Román Valdivia MD IMG IR ORDERABL ES documented in this encounter Visit Diagnoses Diagnosis Mass of lower lobe of right lung Swelling, mass, or lump in chest Mass of lower lobe of right lung Swelling, mass, or lump in chest Lung mass Swelling, mass, or lump in chest documented in this encounter Care Teams Safety Lamp Keeper Relationship Specialty Start Date End Date Arias Mast DNP PCP - General Family Medicine 02/14/21 04/02/22 documented as of this encounter
--- OUTSIDE RECORDS SUMMARY | 2023-12-29 18:22 | XMS_ITS | Encounter Summary ---
Author Organization [facility] Address [facility] [place] [address] Care Team Providers Care Bridge Toll Collector Name Role Phone Arias Mast DNP Primary Care Provider [phone] Reason for Visit * Reason Onset Date Comments Other 07/10/2021 Financial assist ance with rent Encounter Details Date Type Department Care Team (Late st Contact Info) Description 07/10/2021 Telephone Radiation Oncology at [address] [phone] Lorraine Huerta, COLD ROLLING COORDINATOR OFFICE OF CARE MANAGEMENT Other (Financial assistance [...] slept in a intermediate (including now)? No 02/14/2021 Sex and Gender Information Value Date Recorded Sex Assigned at Not on file Gender Identity Not on file Sexual Orientation Not on file documented as of this encounter Miscellaneous Notes * Telephone Encounter - Lorraine Huerta MSW - 07/10/2021 8:35 AM EDT Completed pt's application to the [facility] per his request. Submitted his application requesting $350 towards his $700 monthly rent. Faxed proof of rent to the [facility]. Will notify pt outcome of this request. Financial resources Community Resource documented in this encounter Plan of Treatment Upcoming Encounters Date Type Department Care Team (Late st Contact Info) Description 01/05/2024 2:30 PM EST TH Visit (TeleHealth) Hematology/Oncology at [address] [phone] Cody Frazier MD [facility] DR [place] [address] Bea Grimes APRN [address] [place] [address] DR HEMATOLOGY AND ONCOLOGY [place], [place] [phone] documented as of this encounter Visit Diagnoses Not on filedocumented in this encounter Care Teams Bridge Toll Collector Relationship Specialty Start Date End Date Arias Mast DNP PCP - General Family Medicine 02/14/21 04/02/22 documented as of this encounter
--- OUTSIDE RECORDS SUMMARY | 2023-12-29 18:22 | XMS_ITS | Encounter Summary ---
Author Organization [facility] Address [facility] [place] [address] Care Team Providers Care Equipment Maintenance Tech Name Role Phone Alexandre De Santiago MD Primary Care Provider [phone] Encounter Details Date Type Department Care Team (Late st Contact Info) Description 02/08/2021 Abstract [place]ematology [place] [address] Toya Teran Social History Tobacco Use Types [...] EST TH Visit (TeleHealth) Hematology/Oncology at [address] [phone] Cody Frazier MD [facility] DR HEMATOLOGY [place] [address] Bea Grimes APRN [address] [place] [address] DR HEMATOLOGY AND ONCOLOGY [place], [place] [address] documented as of this encounter Visit Diagnoses Not on filedocumented in this encounter Care Teams Equipment Maintenance Tech Relationship Specialty Start Date End Date Alexandre De Santiago MD [address] [address] PCP - General Family Medicine 01/29/21 02/13/21 documented as of this encounter
--- OUTSIDE RECORDS SUMMARY | 2023-12-29 18:22 | XMS_ITS | Encounter Summary ---
Author Organization [facility] Address [address] [place] [address] Care Team Providers Care Slip Cover Cutter Name Role Phone Unavailable Primary Care Provider Unavailabl e Encounter Details Date Type Department Care Team (Late st Contact Info) Description 01/23/2021 Lab Requisition [facility] Pathology & Laboratory Medicine - [facility] [address] [place] [address] Outr Resulting Lab, Provider Social History Tobacco [...] Priority Date/Time Associated Diagnosis Comments ZZCOVID-19 TEST [facility] PCR Today 01/23/2021 9:15 EST COVID-19 TESTING Routine 01/23/2021 9:15 EST documented in this encounter Results * COVID-19 TEST [facility] PCR (01/23/2021 9:15 EST) Swab 01/23/2021 9:15 EST 01/23/2021 21:18 EST us Provider Outr Resulting Lab MICROBIOLOGY - GENER AL ORDERABLES Final Result [facility] [address] [place] [address] * COVID-19 TESTING (01/23/2021 9:15 EST) COVID-19 rt-PCR Result Negative Negative 01/24/2021 14:34 EST [facility] Comment: This test has not [...] was performed using the nita SARS-CoV-2 assay ([employer] on the Nita 6800 System Performing Lab Nita 6800 [facility] 01/24/2021 14:34 EST [facility] Swab 01/23/2021 9:15 EST 01/23/2021 21:18 EST us Provider Outr Resulting Lab MICROBIOLOGY - GENER AL ORDERABLES Final Result [facility] [address] [place] [address] documented in this encounter Visit Diagnoses Not on filedocumented in this encounter
--- OUTSIDE RECORDS SUMMARY | 2023-12-29 18:22 | XMS_ITS | Encounter Summary ---
Author Organization [facility] Address [facility] [place] [address] Care Team Providers Care Resin Painter Name Role Phone Arias Mast DNP Primary Care Provider [phone] Encounter Details Date Type Department Care Team (Late st Contact Info) Description 06/05/2021 Telephone Pulmonology at [facility] [place] [phone] Darcy Dominguez Social History Tobacco Use Types [...] EST TH Visit (TeleHealth) Hematology/Oncology at [address] [phone] Cody Frazier MD [facility] DR HEMATOLOGY [place] [address] Bea Grimes APRN [address] [place] [address] [place] [address] documented as of this encounter Visit Diagnoses Not on filedocumented in this encounter Care Teams Resin Painter Relationship Specialty Start Date End Date Arias Mast DNP PCP - General Family Medicine 02/14/21 04/02/22 documented as of this encounter
--- OUTSIDE RECORDS SUMMARY | 2023-12-29 18:22 | XMS_ITS | Encounter Summary ---
Author Organization [facility] Address [facility] [place] [address] Care Team Providers Care Newspaper Manager Name Role Phone Arias Mast DNP Primary Care Provider [phone] Reason for Visit * Diagnostic Test (Emergency) - Closed Specialty Diagnoses / Procedures Referred By Kristan merlos Referred To Contact Radiology Diagnoses Lung mass Procedures NM PET CT Skull Base to Mid-thigh Darin Adkins MD [facility] [address] [facility] [place] [address] Referral ID Status Reason Start Date Expiration Date V isits Requested Visits Authorized [id number] Closed Specialty Service Requested 06/04/2021 12/04/2022 1 1 Encounter Details Date Type Department Care Team (Latest Contact Info) Description 06/15/2021 9:45 AM EDT - 06/15/2021 11:59 PM EDT Hospital Encounter [place] [address] Darin Adkins MD [facility] [address] Discharge Disposition: Home Social History [...] slept in a residential (including now)? No 02/14/2021 Sex and Gender [...] EST TH Visit (TeleHealth) Hematology/Oncology at [address] [place] [address] Cody Frazier MD [facility] [place] [address] Bea Grimes APRN [address] [place] [address] [place] [address] documented as of this encounter Procedures Procedure [...] who have questions please contact the health daycare teacher that requested your imaging first. ? Narrative 06/15/2021 2:33 PM EDT EXAMINATION: NM PET CT STANDARD SKULL BASE TO MID-THIGH CLINICAL HISTORY: Metastatic disease evaluation - Include more detail below Enlarging RLL pleural based lesions suspicious for malignancy TECHNIQUE: Following IV injection of 87-bdvesf-7-deoxyglucose (FDG) a standard uptake of approximately 60 [...] 05/24/2021 [place] brain [place] [facility] FINDINGS: HEAD/NECK: A few scattered small [...] visualized remodeling of the right posterolateral 8th [id number] ribs noted. FDG avid right posterior 11th [...] for malignancy TECHNIQUE: Following IV injection of 44-mkgdtr-5-deoxyglucose (FDG) astandard uptake of approximately 60 minutes, [...] 05/24/2021 [place] brain [place] [facility] FINDINGS: HEAD/NECK: A few scattered small [...] CT visualized remodeling of the rightposterolateral 8th [id number] ribs noted. FDG avid right posterior 11th [...] patients who have questions please contactthe health daycare teacher that requested your imaging first. Darin Adkins MD IMG PET ORDERABLES documented in this encounter Visit Diagnoses Not on filedocumented in this encounter Care Teams Newspaper Manager Relationship Specialty Start Date End Date Arias Mast DNP PCP - General Family Medicine 02/14/21 04/02/22 documented as of this encounter
--- OUTSIDE RECORDS SUMMARY | 2023-12-29 18:22 | XMS_ITS | Encounter Summary ---
Author Organization [facility] Address [facility] [place] [address] Care Team Providers Care Front End Developer Designer Name Role Phone Arias Mast DNP Primary Care Provider [phone] Reason for Visit * Consultation (Urgent) - Closed Specialty Diagnoses / Procedures Referred By Kristan t Referred To Contact Pulmonology Diagnoses Right lower lobe lung mass COPD (chronic obstructive pulmonary disease) Arias Mast, ARYA [address] [facility] [place] [address] [facility] Pulmonology [address] [place] [phone] Referral ID Status Reason Start Date Expiration Date V isits Requested Visits Authorized [id number] Closed Consult, Test & Treat PCP Updated and/or Approved 05/29/2021 05/29/2022 6 6 Encounter Details Date Type Department Care Team (Late st Contact Info) Description 06/19/2021 1:00 PM EDT Office [place] [phone] Román Valdivia MD [facility] [place] [address] Mass of lower lobe of right lung; [...] occasional marijuana The patient lives alone 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 INTERVENTIONAL PULMONOLOGY PROCEDURE NOTE SECTION OF PULMONARY & CRITICAL CARE MEDICINE Procedure(s): FNA with image guidance Procedure Date: 06/19/2021 Indication: Right chest wall mass Attending of Record: Román Valdivia MD Pulmonary [place] Present: None Medications: Lidocaine 1% without Epi [...] Section of Pulmonary & Critical Care Pager: [phone] documented in this encounter Plan of Treatment Upcoming Encounters Date Type Department Care Team (Late st Contact Info) Description 01/05/2024 2:30 PM EST TH Visit (TeleHealth) Hematology/Oncology at [address] [phone] Cody Frazier MD [facility] DR HEMATOLOGY [place] [address] Bea Grimes APRN [address] [place] [address] DR HEMATOLOGY AND ONCOLOGY [place], [place] [phone] documented as of this encounter Procedures Procedure Name Priority Date/Time Associated Diagnosis Comments NON-FISHER TROLL LINE FINAL REPORT Routine 06/19/2021 1:47 PM EDT CYTOPATHOLOGY NON-GYNECOLOGICAL Routine 06/19/2021 1:47 PM EDT Mass of lower lobe of right lung documented in this encounter Results * Non-Shuttle Spotter Final Report (06/19/2021 1:47 PM EDT) Diagnosis Discussion [id number] ? Location: The signing pathologist has (i) examined the relevant preparation(s) for the specimen(s) and (ii) rendered or confirmed the diagnosis(es). . ? Non-Shuttle Spotter Final DIAGNOSIS Atypical Electronically signed by: ?Doc KEENE, Tiffanie Verified: ??06/21/2021 11:56 ??Pathologist Performed at: ??-[facility] [place] [place] Dept. of Pathology, [place], [place] DISCUSSION Chest wall, right (FNA): Hypocellular [...] Cell Block 1. 06/21/2021 11:56 AM EDT [facility] Misc. FNA 06/19/2021 1:47 PM EDT 06/19/2021 1:47 PM EDT Román Valdivia MD PATHOLOGY/CYTOL OGY ORDERABLES [facility] [place] [address] * Cytopathology Non-Gynecological (06/19/2021 1:47 PM EDT) AP Specimen 06/19/2021 1:47 PM EDT 06/19/2021 1:47 PM EDT Narrative [facility] - 06/19/2021 1:47 PM EDT Specimen requisition ordered. ??Separate Pathology report to follow Román Valdivia MD PATHOLOGY/CYTOL OGY ORDERABLES [facility] [place] [address] documented in this encounter Visit Diagnoses Diagnosis Mass of lower lobe of right lung Swelling, mass, or lump in chest Non-cardiac chest pain Other chest pain Mediastinal adenopathy Enlargement of lymph nodes documented in this encounter Care Teams Front End Developer Designer Relationship Specialty Start Date End Date Arias Mast DNP PCP - General Family Medicine 02/14/21 2 documented as of this encounter
--- OUTSIDE RECORDS SUMMARY | 2023-12-29 18:22 | XMS_ITS | Encounter Summary ---
Author Organization [facility] Address [facility] [place] [address] Care Team Providers Care Welder Apprentice Gas Name Role Phone Arias Mast DNP Primary Care Provider [phone] Reason for Referral * Diagnostic Test (Emergency) - Closed Specialty Diagnoses / Procedures Referred By Contac t Referred To Contact Radiology Diagnoses Mass of lower lobe of right lung Procedures IR All Biopsy Procedures Román Valdivia MD [facility] [place] [address] [place] [address] Referral ID Status Reason Start Date Expiration Date V isits Requested Visits Authorized [id number] Closed Specialty Service Requested 06/27/2021 02/09/2022 1 1 Reason for Visit * Diagnostic Test (Emergency) - Closed Specialty Diagnoses / Procedures Referred By Contac t Referred To Contact Radiology Diagnoses Mass of lower lobe of right lung Procedures IR All Biopsy Procedures Román Valdivia MD [facility] [place] [address] [place] [address] Referral ID Status Reason Start Date Expiration Date V isits Requested Visits Authorized [id number] Closed Specialty Service Requested 06/27/2021 02/09/2022 1 1 Encounter Details Date Type Department Care Team (Latest Contact Info) Description 06/27/2021 8:28 AM EDT - 06/27/2021 11:59 PM EDT Hospital Encounter Radiology at [facility] [place] [address] Román Valdivia MD [facility] [place] [address] Mass of lower lobe of right lung; [...] Dominguez RN - 06/27/2021 9:[address] [facility] Vascular and Interventional Radiology Biopsy Discharge Instructions [...] be reported to you by your primary career services representative or the clinician who ordered the biopsy. Please do not call us for results as we will not have them. If you have not been contacted by your clinician within 5 business days you should call that officefor further information. When to call the Interventional Radiology Department: Please call with any questions or concerns. If it is during regular office hours, please call [phone]. If it is after regular office hours, or on weekends or holidays, please call [phone] and ask to speak to the Scowman concrete truck driver for Interventional Radiology. You have received medication [...] 06/27/2021 12:29 PM EDT Pt discharged to [facility] to meet friend and ride. [...] of : 1970 AGE: 50 y.o. Address: [address] [place] [address] (home) Mobile: Telephone Information: Referring Provider: Román Valdivia REASON FOR VISIT: Order Questions Answers Where will study be performed? [facility] Radiology [120] Is the patient on [...] for histopathologic diagnosis. IR History: None at [facility]. Antiplatelets: None. Anticoagulants: None. Recent Laboratories: ??? [...] of hematoma or hemorrhage. Resident/Fellow: None Attending: Kiersten, Dr. Dick performed this procedure. I was present during the intraservice time as documented by the IR Nurse. documented in this encounter Plan of Treatment Upcoming Encounters Date Type Department Care Team (Late st Contact Info) Description 01/05/2024 2:30 PM EST TH Visit (TeleHealth) Hematology/Oncology at [address] [phone] Cody Frazier MD [facility] DR HEMATOLOGY [place] [address] Bea Grimes APRN [address] [place] [address] DR HEMATOLOGY AND ONCOLOGY [place], [place] [address] documented as of this encounter Procedures Procedure [...] EDT) Calcofluor Stain Calcofluor White Preparation: Negative [facility] Tissue LUNG STRUCTURE / Unknown 06/27/2021 9:35 AM EDT 06/27/2021 12:39 PM EDT Comment:Bronchial Biopsy Narrative Resulting Agency Comment Spec In Lab Varsha Hollingsworth APRN MICROBIOLOGY - GEN ERAL ORDERABLES Performing Organization Address City/[facility]/ZIP Co de Phone Number [facility] [place] [address] * Fungus culture (06/27/2021 9:35 AM EDT) Fungus Culture No Fungus isolated [facility] Tissue LUNG STRUCTURE / Unknown 06/27/2021 9:35 AM EDT 06/27/2021 12:39 PM EDT Comment:Bronchial Biopsy Narrative Resulting Agency Comment Spec In Lab Varsha Hollingsworth APRN MICROBIOLOGY - GEN ERAL ORDERABLES Performing Organization Address City/[facility]/ZIP Co de Phone Number [facility] [place] [phone] * Tissue culture Lung (06/27/2021 9:35 AM EDT) Tissue Culture No growth [facility] Gram Stain No Neutrophils No microorganisms seen. [facility] Lung 06/27/2021 9:35 AM EDT 06/27/2021 10:41 AM EDT Comment:Concern for metastat ic lung malignancy, sarcoma, pleural based tumor, infection Narrative Resulting Agency Comment Spec In Lab Varsha Hollingsworth COOPERATIVE MANAGER MICROBIOLOGY - GEN ERAL ORDERABLES [facility] [place] [address] * Surgical Pathology Report (06/27/2021 8:54 AM EDT) Final Diagnosis ? Location: [facility] The signing pathologist has (i) examined the [...] The assay was performed according to the bleacher operator's instructions using Anti-PD-L1 (22C3, pharmDX) antibody. Electronically signed by: ?Siri KEENE, PhD, Elif Verified: ??07/05/2021 14:59 ??Pathologist Performed at: ??-[facility] Dept. of Pathology, [place], [place] ?Surgical Pathology DIAGNOSIS Right chest wall mass, biopsy - Positive for malignancy, compatible with high grade carcinoma - ? (see Discussion.) Electronically signed by: ?Adali Stinson DO Verified: ??07/04/2021 10:15 ??Pathologist Performed at: ??-[facility] Dept. of Pathology, [place], [place] DISCUSSION The IHC profile is not [...] labeled A1-A2. ??pps 07/05/2021 2:59 PM EDT [facility] BIOPSY SPECIMEN / Unknown 06/27/2021 8:54 AM EDT 06/27/2021 8:54 AM EDT Román Valdivia MD PATHOLOGY/CYTOL OGY ORDERABLES [facility] [place] [address] * Solid Tumor NGS Panel (06/27/2021 8:54 AM EDT) Tissue 06/27/2021 8:54 AM EDT 07/06/2021 1:05 PM EDT Narrative Resulting Agency Comment Spec In Lab Román Valdivia MD PATHOLOGY/CYTOL OGY ORDERABLES Performing Organization Address City/[facility]/[place] [address] * Specimen to Pathology (06/27/2021 8:54 AM EDT) AP Specimen 06/27/2021 8:54 AM EDT 06/27/2021 8:54 AM EDT Narrative [facility] - 06/27/2021 8:54 AM EDT Specimen requisition ordered. ??Separate Pathology report to follow Román Valdivia MD PATHOLOGY/CYTOL OGY ORDERABLES Performing Organization Address City/[facility] [place] [place] [address] documented in this encounter Visit Diagnoses Diagnosis [...] mg documented in this encounter Care Teams Welder Apprentice Gas Relationship Specialty Start Date End Date Arias Mast DNP PCP - General Family Medicine 02/14/21 04/02/22 documented as of this encounter
--- OUTSIDE RECORDS SUMMARY | 2023-12-29 18:22 | XMS_ITS | Encounter Summary ---
Author Organization [facility] Address [facility] [place] [address] Care Team Providers Care Advanced Registered Nurse Name Role Phone Arias Mast DNP Primary Care Provider [phone] Reason for Referral * Diagnostic Test (Routine) - Closed Specialty Diagnoses / Procedures Referred By Contac t Referred To Contact Radiology Diagnoses Lung mass Procedures MRI Brain wwo Contrast (Generic) Darin Adkins MD [facility] [address] [facility] [place] [address] Referral ID Status Reason Start Date Expiration Date V isits Requested Visits Authorized [id number] Closed Specialty Service Requested 06/04/2021 12/04/2022 1 1 * Diagnostic Test (Emergency) - Closed Specialty Diagnoses / Procedures Referred By Contac t Referred To Contact Radiology Diagnoses Lung mass Procedures NM PET CT Skull Base to Mid-thigh Darin Adkins MD [facility] [address] [facility] [place] [address] Referral ID Status Reason Start Date Expiration Date V isits Requested Visits Authorized [id number] Closed Specialty Service Requested 06/04/2021 12/04/2022 1 1 Encounter Details Date Type Department Care Team ([facility] st Contact Info) Description 06/04/2021 Orders Only [place] [address] Darin Adkins MD [facility] [place] [address] Lung mass Social History Tobacco Use Types [...] EST TH Visit (TeleHealth) Hematology/Oncology at [address] [phone] Cody Frazier MD [facility] [place] [address] Bea Grimes, IGNACIA [address] [place] [address] DR [place]AT[place]Y [place] [address] documented as of this encounter Results * [...] who have questions please contact the health pediatric acute care unit nurse that requested your imaging first. ? Electronically signed by: Bea Roper MD, [facility] ([phone]), at 06/15/2021 2:33 PM Narrative 06/15/2021 2:33 PM EDT EXAMINATION: NM PET CT STANDARD SKULL BASE TO MID-THIGH CLINICAL HISTORY: Metastatic disease evaluation - Include more detail below Enlarging RLL pleural based lesions suspicious for malignancy TECHNIQUE: Following IV injection of 16-xtgsnn-1-deoxyglucose (FDG) a standard uptake of approximately 60 [...] 05/24/2021 MRI brain from earlier same day [facility], 06/15/2021 FINDINGS: HEAD/NECK: A few scattered small [...] visualized remodeling of the right posterolateral 8th [id number] ribs noted. FDG avid right posterior 11th [...] for malignancy TECHNIQUE: Following IV injection of 25-crqnoa-7-deoxyglucose (FDG) astandard uptake of approximately 60 minutes, [...] 05/24/2021 MRI brain from earlier same day [facility], 06/15/2021 FINDINGS: HEAD/NECK: A few scattered small [...] CT visualized remodeling of the rightposterolateral 8th [id number] ribs noted. FDG avid right posterior 11th [...] patients who have questions please contactthe health pediatric acute care unit nurse that requested your imaging first. Electronically signed by: Bea Roper MD, [facility]([phone]), at 06/15/2021 2:33 PM Darin Adkins MD [...] who have questions please contact the health pediatric acute care unit nurse that requested your imaging first. ? Electronically signed by: Torrie Hall MD, [facility] ([phone]), at 06/15/2021 9:55 AM Narrative 06/15/2021 9:55 [...] patients who have questions please contactthe health pediatric acute care unit nurse that requested your imaging first. Electronically signed by: Torrie Hall MD, [facility]([phone]), at 06/15/2021 9:55 AM Darin Adkins MD IMG MRI ORDERABLES documented in this encounter Visit Diagnoses Diagnosis Lung mass Swelling, mass, or lump in chest Lung mass Swelling, mass, or lump in chest Lung mass Swelling, mass, or lump in chest documented in this encounter Care Teams Advanced Registered Nurse Relationship Specialty Start Date End Date Arias Mast DNP PCP - General Family Medicine 02/14/21 04/02/22 documented as of this encounter
--- OUTSIDE RECORDS SUMMARY | 2023-12-29 18:22 | XMS_ITS | Encounter Summary ---
Author Organization [facility] Address [facility] [place] [address] Care Team Providers Care Brickmason Helper Name Role Phone Arias Mast [facility] Primary Care Provider [phone] Reason for Referral * Diagnostic Test (Emergency) - Closed Specialty Diagnoses / Procedures Referred By Contac t Referred To Contact Radiology Diagnoses Lung mass Procedures NM PET CT Skull Base to Mid-thigh Darin Adkins MD [facility] [place] [address] [place] [address] Referral ID Status Reason Start Date Expiration Date V isits Requested Visits Authorized [id number] Closed Specialty Service Requested 06/04/2021 12/04/2022 1 1 Reason for Visit * Diagnostic Test (Emergency) - Closed Specialty Diagnoses / Procedures Referred By Contac t Referred To Contact Radiology Diagnoses Lung mass Procedures NM PET CT Skull Base to Mid-thigh Darin Adkins MD [facility] [place] [address] [place] [address] Referral ID Status Reason Start Date Expiration Date V isits Requested Visits Authorized [id number] Closed Specialty Service Requested 06/04/2021 12/04/2022 1 1 Encounter Details Date Type Department Care Team (Latest Contact Info) Description 06/15/2021 9:44 AM EDT Hospital Encounter [place] [phone] Darin Adkins MD [facility] [place] [address] Lung mass Discharge Disposition: Home Social History [...] EST TH Visit (TeleHealth) Hematology/Oncology at [address] [phone] Cody Frazier MD [facility] DR [place] [address] Bea Grimes APRN [address] [place] [address] DR [place] [address] documented as of this encounter Procedures Procedure [...] who have questions please contact the health lawn care specialist that requested your imaging first. ? Electronically signed by: Bea Roper MD, [facility] ([phone]), at 06/15/2021 2:33 PM Narrative 06/15/2021 2:33 PM EDT EXAMINATION: NM PET CT STANDARD SKULL BASE TO MID-THIGH CLINICAL HISTORY: Metastatic disease evaluation - Include more detail below Enlarging RLL pleural based lesions suspicious for malignancy TECHNIQUE: Following IV injection of 04-iukucy-3-deoxyglucose (FDG) a standard uptake of approximately 60 [...] 05/24/2021 MRI brain from earlier same day [facility], 06/15/2021 FINDINGS: HEAD/NECK: [...] visualized remodeling of the right posterolateral 8th low44qq ribs noted. FDG avid right posterior 11th [...] Note Bea Roper MD - 06/15/2021 EXAMINATION: [place] PET CT STANDARD SKULL BASE TO MID-THIGH CLINICAL HISTORY: Metastatic disease evaluation - Include more detailbelow Enlarging RLL pleural based lesions suspicious for malignancy TECHNIQUE: Following IV injection of 72-jfouwn-3-deoxyglucose (FDG) astandard uptake of approximately 60 minutes, [...] 05/24/2021 MRI brain from earlier same day [facility], 06/15/2021 FINDINGS: HEAD/NECK: [...] CT visualized remodeling of the rightposterolateral 8th [id number] ribs noted. FDG avid right posterior 11th [...] patients who have questions please contactthe health lawn care specialist that requested your imaging first. Darin Adkins [...] Arm documented in this encounter Care Teams Brickmason Helper Relationship Specialty Start Date End Date Arias Mast DNP PCP - General Family Medicine 02/14/21 04/02/22 documented as of this encounter
--- OUTSIDE RECORDS SUMMARY | 2023-12-29 18:22 | XMS_ITS | Encounter Summary ---
Author Organization [facility] Address [facility] [place] [address] Care Team Providers Care Transplant Registered Nurse Name Role Phone Arias Mast DNP Primary Care Provider [phone] Encounter Details Date Type Department Care Team (Latest Contact Info) Description 03/02/2021 1:30 PM EST TH Visit (TeleHealth) [place] [address] Ginna Guillen MD [facility] DR [place] [address] Shiloh Harper APRN [facility] DR [place] [address] Leukocytosis, unspecified type; Thrombocytosis Social History Tobacco [...] PERSONAL and SOCIAL HISTORY ?? Lives in: [facility] ?? 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 ?? ETOH: occasional ?? Smoking: smokes 10 [...] this patient's situation further. Ginna Wallis MD [facility] CC: IGNACIA oMra Logan Dege documented in this encounter Plan of Treatment Upcoming Encounters Date Type Department Care Team (Late st Contact Info) Description 01/05/2024 2:30 PM EST TH Visit (TeleHealth) Hematology/Oncology at [address] [phone] Cody Frazier MD [facility] DR HEMAT[place]Y [place] [address] [address]imes [address] HEMATOLOGY AND ONCOLOGY [place], [place] [address] documented as of this encounter Visit Diagnoses Diagnosis Leukocytosis, unspecified type Thrombocytosis Essential thrombocythemia documented in this encounter Care Teams Transplant Registered Nurse Relationship Specialty Start Date End Date Arias Mast DNP PCP - General Family Medicine 02/14/21 04/02/22 documented as of this encounter
--- OUTSIDE RECORDS SUMMARY | 2023-12-29 18:22 | XMS_ITS | Encounter Summary ---
Author Organization [facility] Address [facility] [address] Care Team Providers Care Mill Dresser Name Role Phone Arias Mast DNP Primary Care Provider [phone] Encounter Details Date Type Department Care Team (Late st Contact Info) Description 07/05/2021 Notes Only Radiation Oncology at [address] [phone] Lorraine Huerta, FUR CLIPPER OFFICE OF CARE MANAGEMENT Social History Tobacco [...] in some information to apply to the [facility] for some financial assistance for his rent. FUR CLIPPER will submit his application per his request. Plan to talk further about the F once the date of his cancer diagnosis is 30 days or more Pt indicated RCT did pick him up at his residence as requested so he was granted the public transportation exemption. FUR CLIPPER to follow up with pt to discuss other issues related to his financial situation as he questionsabout SSDI. Brief assessment Care Coordination Financial resources Community Resource documented in this encounter Plan of Treatment Upcoming Encounters Date Type Department Care Team (Late st Contact Info) Description 01/05/2024 2:30 PM EST TH Visit (TeleHealth) Hematology/Oncology at [address] [phone] Cody Frazier MD [facility] DR HEMATOLOGY [place] [address] Bea Grimes APRN [address] [place] [address] DR HEMATOLOGY AND ONCOLOGY [place], [place] [id number] documented as of this encounter Visit Diagnoses Not on filedocumented in this encounter Care Teams Mill Dresser Relationship Specialty Start Date End Date Arias Mast DNP PCP - General Family Medicine 02/14/21 2 documented as of this encounter
--- OUTSIDE RECORDS SUMMARY | 2023-12-29 18:22 | XMS_ITS | Encounter Summary ---
Author Organization [facility] Address [facility] [place] [address] Care Team Providers Care Aviation Survival Technician Name Role Phone Kezia Arias Morales DNP Primary Care Provider [phone] Encounter Details Date Type Department Care Team (Late st Contact Info) Description 05/24/2021 Ancillary Procedure Radiology Library at [facility] [place] [address] Arias Mast, ARYA [address] [place] [address] Social History Tobacco Use Types [...] EST TH Visit (TeleHealth) Hematology/Oncology at [address] [phone] Cody Frazier MD [facility] [place] [address] Bea Grimes APRN [address] [place] [address] DR HEMATOLOGY AND ONCOLOGY [place], [place] [id number] documented as of this encounter Procedures Procedure Name Priority Date/Time Associated Diagnosis Comments FILM LIBRARY STORAGE ONLY CT CHEST Routine 05/24/2021 12:00 AM EDT documented in this encounter Results * Film Library- Storage Only CT Chest (05/24/2021 12:00 AM EDT) Narrative HENNA - 06/05/2021 8:35 AM EDT This exam is auto-finalizing. It's purpose is for storage only. Arias Mast DNP IMMarisol FILM LIBRARY OR DERABLES [place], [place] documented in this encounter Visit Diagnoses Not on filedocumented in this encounter Care Teams Aviation Survival Technician Relationship Specialty Start Date End Date Arias Mast DNP PCP - General Family Medicine 02/14/21 04/02/22 documented as of this encounter
--- OUTSIDE RECORDS SUMMARY | 2023-12-29 18:22 | XMS_ITS | Encounter Summary ---
Author Organization [facility] Address [address] [place] [address] Care Team Providers Care Plateman Name Role Phone Unavailable Primary Care Provider Unavailabl e Encounter Details Date Type Department Care Team (Late st Contact Info) Description 04/21/2023 Lab Requisition [facility] Pathology & Laboratory Medicine - [facility] [address] [place] [address] Outr Resulting Lab, Provider Social History Tobacco [...] Antigen Detection Negative Negative 04/21/2023 19:28 EDT [facility] Urine URINE / Unknown 04/21/2023 1 0:56 EDT 04/21/2023 18:29 EDT us Provider Outr Resulting Lab MICROBIOLOGY - GENER AL ORDERABLES Final Result [facility] [address] [place], [place] [address] documented in this encounter Visit Diagnoses Not on filedocumented in this encounter
--- OUTSIDE RECORDS SUMMARY | 2023-12-29 18:22 | XMS_ITS | Encounter Summary ---
Author Organization [facility] [place] [address] Care Team Providers Care Billing Department Supervisor Name Role Phone Arias Mast DNP Primary Care Provider [phone] Reason for Referral * Consultation (Urgent) - Closed Specialty Diagnoses / Procedures Referred By Contshayla t Referred To Contact Pulmonology Diagnoses Right lower lobe lung mass COPD (chronic obstructive pulmonary disease) Arias Mast DNP [address] [employer] [employer] [address] [facility] Pulmonology [address] [place] [phone] Referral ID Status Reason Start Date Expiration Date V isits Requested Visits Authorized [id number] Closed Consult, Test & Treat PCP Updated and/or Approved 05/29/2021 05/29/2022 6 6 Encounter Details Date Type Department Care Team ([facility] st Contact Info) Description 05/29/2021 Transcribe Orders eDH Incoming Referrals [phone] Arias Mast DNP [address] [employer] [place], [place] [address] Chronic obstructive pulmonary disease, unspecified COPD type; [...] PM EST TH Visit (TeleHealth) Hematology/Oncology at [address] [phone] Cody Frazier MD [facility] [place] [address] Bea Grimes APRN [address] [place] [address] DR HEMATOLOGY AND ONCOLOGY [place], [place] [address] Scheduled Referrals Name Type Priority Associated Diagnoses Orde r Schedule Referral to Pulmonology Outpatient Referral Routine Chronic obstructive pulmonary disease, unspecified COPD type Right lower lobe lung mass Ordered: 05/29/2021 documented as of this encounter Visit Diagnoses Diagnosis Chronic obstructive pulmonary disease, unspecified COPD type Right lower lobe lung mass Swelling, mass, or lump in chest documented in this encounter Care Teams Billing Department Supervisor Relationship Specialty Start Date End Date Arias Mast DNP PCP - General Family Medicine 02/14/21 04/02/22 documented as of this encounter
--- OUTSIDE RECORDS SUMMARY | 2023-12-29 18:22 | XMS_ITS | Encounter Summary ---
Author Organization [facility] Address [facility] [place] [address] Care Team Providers Care Business Office Technology Instructor Name Role Phone Arias Mast DNP Primary Care Provider [phone] Encounter Details Date Type Department Care Team (Late st Contact Info) Description 06/29/2021 Orders [place] [address] Jose Norman MD [facility] [place] [address] Social History Tobacco Use Types Packs/Day Years [...] PM EST TH Visit (TeleHealth) Hematology/Oncology at [address] [phone] Cody Frazier MD [facility] DR HEMATOLOGY [place] [address] Bea Grimes APRN [address] [place] [address] DR HEMATOLOGY AND ONCOLOGY [place], [place] [id number] documented as of this encounter Visit Diagnoses Not on filedocumented in this encounter Care Teams Business Office Technology Instructor Relationship Specialty Start Date End Date Arias Mast DNP PCP - General Family Medicine 02/14/21 04/02/22 documented as of this encounter
--- OUTSIDE RECORDS SUMMARY | 2023-12-29 18:22 | XMS_ITS | Referral Summary ---
Author Organization [facility] Address [address] [place] [address] Care Team Providers Care Director Radio News Name Role Phone Unavailable Primary Care Provider Unavailabl e Social History Tobacco Use Types Packs/Day Years Used Date Smoking Tobacco: Never Assessed Sex and Gender Information Value Date Recorded Sex Assigned at Not on file Legal Sex Male 19:16 EDT Gender Identity Not on file Sexual Orientation Not on file Plan of Treatment Not on file
== END 2023-12-29 18:14 | disposition home or self-care (01) ==
LOC: LBN 18:13
PROVIDERS: Visit Provider Nurse Practitioner Family
DX: C34.31 Malignant neoplasm of lower lobe, right bronchus or lung (principal); C79.51 Secondary malignant neoplasm of bone
CPT/HCPCS: 80053; 83735; 84439; 84443; 85025